=== PATIENT | male | born 1960 | race Caucasian/White ===

== ENCOUNTER 2016-09-05 08:49 | Observation (INO) | payer OTHER ==
[2016-09-05] MEDS ORDERED: IPRATROPIUM 0.5 MG/2.5 ML NEBU INHALATION STA (09:11)
[2016-09-05] MEDS ORDERED: LORazepam 2 MG/ML SYRINGE IV STA (09:11)
[2016-09-05] MEDS ORDERED: ALBUTEROL NEBULIZED 2.5 MG/3 ML INHALATION STA (09:11)
[2016-09-05] MEDS ORDERED: methylPREDNISolone SOD SUCCI 125 MG/2 ML VIAL IV STA (09:11)
[2016-09-05] MEDS ORDERED: SODIUM CHLORIDE 0.9% 1,000 ML IV STA (09:11)
--- NOTE | 2016-09-05 09:25 | ED ---
General Adult HPI - General Chief complaint: Shortness of Breath Stated complaint: SOB Time Seen by Provider: 09/05/16 09:06 Source: patient, RN notes reviewed, old records reviewed Mode of arrival: EMS Limitations: no limitations - History of Present Illness Initial comments: This is a 56-year-old male the ER for evaluation of shortness of breath, patient is with significant shortness of breath this time and prior strain secondary critical state. Patient states he has history of COPD, as well as multiple medical Marcelina is an alcohol abuse. Patient coming in with no chest pain at this time which are as of breath for a week increased coughing this congestion or travel history no significant sick contacts and no recent hospitalizations. Patient denies fever at home, does have increase in sputum production and congestion. - Related Data Home Medications Medication Instructions Recorded Confirmed Albuterol Inhaler [Ventolin Hfa 2 puff INHALATION RT-Q6H PRN 10/21/14 09/05/16 Inhaler] amLODIPine [Norvasc] 10 mg PO DAILY 12/20/15 09/05/16 Cyclobenzaprine [Flexeril] 10 mg PO DAILY PRN 06/28/16 09/05/16 Gabapentin [Neurontin] 300 mg PO TID 06/28/16 09/05/16 Latanoprost Ophth [Xalatan 0.005%] 1 drops BOTH EYES HS 06/28/16 09/05/16 Lisinopril [Zestril] 20 mg PO DAILY 06/28/16 09/05/16 Tamsulosin [Flomax] 0.4 mg PO QAM 06/28/16 09/05/16 oxyCODONE HCL/ACETAMINOPHEN 1 tab PO TID PRN 06/28/16 09/05/16 [Percocet 10-325 mg] rOPINIRole HCL [Requip] 1 mg PO HS 06/28/16 09/05/16 Omeprazole [PriLOSEC] 20 mg PO AC-BRKFST 07/19/16 09/05/16 Allergies Allergy/AdvReac Type Severity Reaction Status Date / Time amoxicillin trihydrate Allergy Unknown Verified 09/05/16 09:59 [From Augmentin] potassium clavulanate Allergy Unknown Verified 09/05/16 09:59 [From Augmentin] pregabalin [From Lyrica] AdvReac Swelling Verified 09/05/16 09:59 Review of Systems ROS Statement: Those systems with pertinent positive or pertinent negative responses have been documented in the HPI. ROS Other: All systems not noted in ROS Statement are negative. 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 History of Any Multi-Drug Resistant Organisms: None Reported Past Surgical History: Appendectomy, Prostate Surgery Additional Past Surgical History / Comment(s): arthroscopic surgery right knee for torn cartiledge. Past Anesthesia/Blood Transfusion Reactions: No Reported Reaction Past Psychological History: Depression Additional Psychological History / Comment(s): Pt lives with his sister. He is independent. He has not worked for the past 1 1/2 due to nerve pain from [place] gelles. Pt does not have a license. Smoking Status: Current some day smoker Past Alcohol Use History: Occasional Additional Past Alcohol Use History / Comment(s): Pt accidentally drank 3-6 beers last nite which he thought were nonalcoholic beers. He had not drank for 1 1/2 weeks before this incident. Past Drug Use History: None Reported - Past Family History Father Additional Family Medical History / Comment(s): Father is - he at age 38yrs from HTN-CVA Mother Additional Family Medical History / Comment(s): Mother of emphysema at age 74yrs. She was a smoker. General Exam Limitations: no limitations General appearance: alert, in no apparent distress, anxious, in distress, obese Head exam: Present: atraumatic, normocephalic, normal inspection Eye exam: Present: normal appearance, PERRL, EOMI. Absent: scleral icterus, conjunctival injection, periorbital swelling ENT exam: Present: normal exam, mucous membranes moist Neck exam: Present: normal inspection. Absent: tenderness, meningismus, lymphadenopathy Respiratory exam: Present: normal lung sounds bilaterally, respiratory distress , wheezes, accessory muscle use, decreased breath sounds, prolonged expiratory. Absent: rales, rhonchi, stridor Cardiovascular Exam: Present: regular rate, normal rhythm, normal heart sounds. Absent: systolic murmur, diastolic murmur, rubs, gallop, clicks GI/Abdominal exam: Present: soft, normal bowel sounds. Absent: distended, tenderness, guarding, rebound, rigid Extremities exam: Present: normal inspection, full ROM, normal capillary refill. Absent: tenderness, pedal edema, joint swelling, calf tenderness Back exam: Present: normal inspection Neurological exam: Present: alert, oriented X3, CN II-XII intact Psychiatric exam: Present: normal affect, normal mood Skin exam: Present: warm, dry, intact, normal color. Absent: rash Course Vital Signs 09/05/16 09/05/16 09/05/16 08:58 09:28 09:44 Temperature 97.9 F Pulse Rate 103 H 89 85 Respiratory 18 Rate Blood Pressure 153/82 O2 Sat by Pulse 95 Oximetry 09/05/16 10:13 Temperature Pulse Rate 90 Respiratory Rate Blood Pressure O2 Sat by Pulse Oximetry - Reevaluation(s) Reevaluation #1: 09/05/16 10:07 Patient with only mild improvement on prolonged breathing treatment EKG Findings - EKG Comments: EKG Findings:: EKG shows sinus rhythm rate of 84, LA 140, QRS 92, QTC 4:30 Medical Decision Making - Medical Decision Making 56-year-old male here for evaluation shortness of breath, continuous shortness of breath, no Brittan she was at home or no modifying factors. Patient is a history of smoking with it is been unable to smoke, symptoms for 10 days with progressive worsening. Patient states that he has an increased cough and congestion, patient x-rays negative first pneumonia, patient will be admitted for COPD exacerbation, breathing treatments. Patient continues to be short of breath after prolonged breathing treatment, will admit for monitoring of cardiovascular status - Lab Data Result diagrams: 09/05/16 09:38 09/05/16 09:38 Lab Results 09/05/16 09/05/16 09/05/16 Range/Units 09:38 09:38 09:38 WBC 6.5 (3.8-10.6) k/uL RBC 4.51 (4.30-5.90) m/uL Hgb 13.4 (13.0-17.5) gm/dL Hct 40.9 (39.0-53.0) % MCV 90.7 (80.0-100.0) fL MCH 29.7 (25.0-35.0) pg MCHC 32.7 (31.0-37.0) g/dL RDW 13.5 (11.5-15.5) % Plt Count 293 (150-450) k/uL Neutrophils % 46 % Lymphocytes % 41 % Monocytes % 6 % Eosinophils % 2 % Basophils % 1 % Neutrophils # 3.0 (1.3-7.7) k/uL Lymphocytes # 2.7 (1.0-4.8) k/uL Monocytes # 0.4 (0-1.0) k/uL Eosinophils # 0.1 (0-0.7) k/uL Basophils # 0.1 (0-0.2) k/uL PT 9.4 (9.0-12.0) sec INR 0.9 (<1.1) APTT 23.1 (22.0-30.0) sec Sodium 140 (137-145) mmol/L Potassium 4.3 (3.5-5.1) mmol/L Chloride 102 (98-107) mmol/L Carbon Dioxide 21 L (22-30) mmol/L Anion Gap 17 mmol/L BUN 15 (9-20) mg/dL Creatinine 0.96 (0.66-1.25) mg/dL Est GFR (MDRD) Af Amer >60 (>60 ml/min/1.73 sqM) Est GFR (MDRD) Non-Af >60 (>60 ml/min/1.73 sqM) Glucose 109 H (74-99) mg/dL Calcium 9.1 (8.4-10.2) mg/dL Magnesium 2.2 (1.6-2.3) mg/dL Total Bilirubin 0.4 (0.2-1.3) mg/dL AST 30 (17-59) U/L ALT 61 (21-72) U/L Alkaline Phosphatase 79 (38-126) U/L Total Protein 7.0 (6.3-8.2) g/dL Albumin 4.1 (3.5-5.0) g/dL - Radiology Data Radiology results: report reviewed (Chest x-ray is negative for pneumonia), image reviewed Critical Care Time Critical Care Time: Yes Total Critical Care Time: 31 Disposition Clinical Impression: Acute kidney injury, Alcohol abuse, Acute exacerbation of chronic obstructive airways disease Disposition: ADMITTED IP TO THIS HOSP Condition: Fair Referrals: Luna Berger CRNP [Primary Care Provider] - 1-2 days
[2016-09-05 09:59] LABS: Basophils # (A) 0.1 k/uL (0-0.2); Basophils % (A) 1 %; CH 31.1; CHCM 34.4; Eosinophils # (A) 0.1 k/uL (0-0.7); Eosinophils % (A) 2 %; HCT 40.9 % (39.0-53.0); HDW 2.59; HGB 13.4 gm/dL (13.0-17.5); Luc % (Auto) 3; Lymphocytes # (A) 2.7 k/uL (1.0-4.8); Lymphocytes % (A) 41 %; MCH 29.7 pg (25.0-35.0); MCHC 32.7 g/dL (31.0-37.0); MCV 90.7 fL (80.0-100.0); Mean Platelet Volume 7.2; Monocytes # (A) 0.4 k/uL (0-1.0); Monocytes % (A) 6 %; Neutrophils % (A) 46 %; RBC 4.51 m/uL (4.30-5.90); RDW 13.5 % (11.5-15.5); WBC 6.5 k/uL (3.8-10.6); WBC (Perox) 6.24
[2016-09-05 10:09] LABS: INR 0.9 (<1.1); Partial Thromboplastin Time 23.1 sec (22.0-30.0); Prothrombin Time 9.4 sec (9.0-12.0)
[2016-09-05 10:11] LABS: ALT 61 U/L (21-72); AST 30 U/L (17-59); Alkaline Phosphatase 79 U/L (38-126); Anion Gap 17 mmol/L; Blood Urea Nitrogen 15 mg/dL (9-20); Calcium 9.1 mg/dL (8.4-10.2); Carbon Dioxide 21 mmol/L (22-30); Chloride 102 mmol/L (98-107); Glucose 109 mg/dL (74-99); Magnesium 2.2 mg/dL (1.6-2.3); Non-African American GFR(MDRD) >60 (>60 ml/min/1.73 sqM); Potassium 4.3 mmol/L (3.5-5.1); Sodium 140 mmol/L (137-145); Total Bilirubin 0.4 mg/dL (0.2-1.3)
--- NOTE | 2016-09-05 10:24 | XR ---
EXAMINATION TYPE: XR chest 1V portable DATE OF EXAM: 09/05/2016 10:19 AM COMPARISON: 12/28/2015 INDICATION: Pain increased sputum production and cough and congestion, history of COPD TECHNIQUE: Single frontal view of the chest is obtained. FINDINGS: The heart size is normal. The pulmonary vasculature is normal. The lungs are clear. IMPRESSION: 1. No acute pulmonary process.
[2016-09-05 10:35] LABS: Creatine Kinase 147 U/L (55-170)
[2016-09-05] MEDS: SODIUM CHLORIDE 0.9% 1,000 ML IV SCH ×2 (10:42→21:42)
[2016-09-05 10:46] LABS: Troponin I <0.012 ng/mL (0.000-0.034)
[2016-09-05 10:47] LABS: Creatine Kinase MB 4.1 ng/mL (0.0-2.4)
[2016-09-05] MEDS: IPRATROPIUM-ALBUTEROL 3 ML NEB INHALATION SCH ×3 (15:16→18:41)
[2016-09-05] MEDS: methylPREDNISolone SOD SUCCI 125 MG/2 ML VIAL IV SCH (17:23)
[2016-09-05] MEDS: MORPHINE SULFATE 4 MG/ML SYRINGE IVP PRN (17:27)
[2016-09-05] MEDS: GABAPENTIN 300 MG CAP PO SCH (22:36)
[2016-09-05] MEDS: LATANOPROST 0.005% OPHTH DROPS 2.5 ML BTL BOTH EYES SCH (22:36)
[2016-09-06] MEDS: methylPREDNISolone SOD SUCCI 125 MG/2 ML VIAL IV SCH ×5 (00:24→23:34)
[2016-09-06] MEDS: SODIUM CHLORIDE 0.9% 1,000 ML IV SCH ×2 (05:18→15:46)
[2016-09-06 07:40] LABS: Glucose,Whole Blood 220 mg/dL (75-99)
[2016-09-06] MEDS: NICOTINE 21MG/24HR PATCH TRANSDERM SCH (08:14)
[2016-09-06] MEDS: ENOXAPARIN 40 MG/0.4 ML SYRINGE SQ SCH (08:15)
[2016-09-06] MEDS: TAMSULOSIN 0.4 MG CAP.ER.24H PO SCH (08:15)
[2016-09-06] MEDS: GABAPENTIN 300 MG CAP PO SCH ×3 (08:15→21:10)
[2016-09-06] MEDS: PANTOPRAZOLE 40 MG TABLET PO SCH (08:15)
[2016-09-06] MEDS: amLODIPine 10 MG TAB PO SCH (08:15)
[2016-09-06] MEDS: LISINOPRIL 20 MG TAB PO SCH (08:15)
[2016-09-06] MEDS: MORPHINE SULFATE 4 MG/ML SYRINGE IVP PRN ×3 (08:22→16:44)
[2016-09-06] MEDS: INSULIN LISPRO (humaLOG) 300 UNIT/3 ML VIAL SQ SCH ×4 (08:26→20:37)
[2016-09-06] MEDS: IPRATROPIUM-ALBUTEROL 3 ML NEB INHALATION SCH ×4 (08:41→19:23)
--- NOTE | 2016-09-06 09:24 | HP ---
DATE OF ADMISSION: CHIEF COMPLAINT: Difficulty breathing. HISTORY OF PRESENT ILLNESS: Mr. Herrera is a 56-year-old male with a known history of chronic obstructive pulmonary disease, alcohol abuse and chronic pancreatitis, and fibromyalgia, came to the hospital with complaints of difficulty breathing, worsening for the past two days. The patient felt like flulike symptoms. Since then has been having difficulty breathing. Otherwise, denied any chest pain. Patient was having increase in cough and congestion. Patient did not have any worsening cough today. No sputum production. Apparently, patient was also wheezing, which made him come to the hospital. Patient does have a history of chronic pancreatitis and follows with Dr. Cici Avila as an outpatient. Patient had recent endoscopy that did not show any ulcers as per the patient. Otherwise, the patient denied any complaints of fever. Patient does have short of breath. No nausea or vomiting, abdominal pain. No diarrhea. No dysuria. No recent travel. No sick contacts at home. REVIEW OF SYSTEMS: CONSTITUTIONAL: No fever. No chills. Patient does have generalized weakness and malaise. RESPIRATORY: Patient does have cough. No sputum production. Short of breath. CARDIOVASCULAR: No chest pain. Patient does have short of breath. No leg swelling. ABDOMEN: No nausea, vomiting, or abdominal pain. GENITOURINARY: Negative. ENDOCRINE: Negative. PSYCHIATRY: Negative. SKIN: Negative. All other fourteen-point review of systems negative except the above. PAST MEDICAL HISTORY: Includes COPD, history of coronary artery disease, no history of PCI, COPD, fibromyalgia, GERD, hypertension, alcohol abuse, chronic pancreatitis, hypoalbuminemia, history of shingles. PAST SURGICAL HISTORY: Appendectomy, prostate surgery, arthroscopic surgery of the right knee from torn cartilage. PSYCHOSOCIAL HISTORY: Depression. SOCIAL HISTORY: Patient lives with his sister. He is independent. Currently is ( ) day smoker. Occasional alcohol use. Patient accidentally drank 3 to 6 beers last night, which he thought were nonalcoholic. He had not drank for one and half weeks before the incident. FAMILY HISTORY: Father at age 38-years from hypertension, cerebrovascular accident. Mother of emphysema at age 74 years. She was a smoker. HOME MEDICATIONS: Albuterol, amlodipine, Flexeril, gabapentin, latanoprost, lisinopril, Flomax, oxycodone, ( ) and omeprazole. ALLERGIES: AUGMENTIN, POTASSIUM CLAVULANATE FROM AUGMENTIN AND PREGABALIN. PHYSICAL EXAMINATION: A 56-year-old male lying in bed comfortably, awake, alert, oriented x3 appears to be in mild distress. VITALS: Blood pressure is 138/68, pulse is 110, respiration 18, temperature afebrile, pulse ox 92% on 2-L nasal cannula. HEENT: Atraumatic, normocephalic. Neck is supple. No JVD. CVS: S1, S2 heard. No murmurs, no gallop. LUNGS: Bilateral expiratory wheezing positive and decreased air entry. Rhonchi positive. Nonlabored breathing. ABDOMEN: Soft, nontender. Bowel sounds present. ACCOUNT DEVELOPMENT EXECUTIVE: Awake, alert and oriented x3. No focal neurological deficits. Cranial nerves grossly intact. EXTREMITIES: No edema. Pulses palpable bilaterally. No clubbing or cyanosis. PSYCHIATRIC: Cooperative. LABORATORY DATA: WBC 6.5, hemoglobin 13.4, platelets 293, INR 0.9. Sodium 140, potassium 4.3, chloride 102, bicarb is 21, BUN 15, creatinine 0.96. NT-proBNP is 68. Troponin less than 0.012. Albumin 4.1. EKG sinus rhythm with marked sinus arrhythmia. Chest x-ray, no acute pulmonary process. IMPRESSION: 1. Difficulty breathing, acute chronic obstructive pulmonary disease exacerbation. 2. Alcohol abuse. 3. History of chronic pancreatitis. 4. Fibromyalgia. 5. Gastroesophageal reflux disease. 6. History of shingles. 7. Benign prostatic hypertrophy. DISCUSSION AND PLAN: A 56-year-old male admitted to the hospital with worsening short of breathing. Will continue with breathing treatments. Will continue with IV steroids. Continue the home medications and follow up closely. Further recommendations based on the clinical course. DVT prophylaxis with Lovenox 40 mg subcu daily. Patient was counseled for alcohol abuse and nicotine addiction.
[2016-09-06 12:19] LABS: Glucose,Whole Blood 211 mg/dL (75-99)
[2016-09-06] MEDS ORDERED: INFLUENZA VACCINE (3YR+) 60 MCG/0.5 ML SYRINGE IM ONE (15:16)
[2016-09-06 16:53] LABS: Glucose,Whole Blood 217 mg/dL (75-99)
[2016-09-06 20:28] LABS: Glucose,Whole Blood 230 mg/dL (75-99)
[2016-09-06] MEDS: LATANOPROST 0.005% OPHTH DROPS 2.5 ML BTL BOTH EYES SCH (21:10)
[2016-09-07] MEDS: MORPHINE SULFATE 4 MG/ML SYRINGE IVP PRN ×2 (04:02→07:46)
[2016-09-07] MEDS: SODIUM CHLORIDE 0.9% 1,000 ML IV SCH ×3 (04:04→23:24)
[2016-09-07] MEDS: methylPREDNISolone SOD SUCCI 125 MG/2 ML VIAL IV SCH ×4 (05:46→23:24)
[2016-09-07 07:33] LABS: Glucose,Whole Blood 171 mg/dL (75-99)
[2016-09-07] MEDS: ENOXAPARIN 40 MG/0.4 ML SYRINGE SQ SCH (07:33)
[2016-09-07] MEDS: INSULIN LISPRO (humaLOG) 300 UNIT/3 ML VIAL SQ SCH ×4 (07:34→21:57)
[2016-09-07] MEDS: GABAPENTIN 300 MG CAP PO SCH ×3 (07:34→21:57)
[2016-09-07] MEDS: PANTOPRAZOLE 40 MG TABLET PO SCH (07:34)
[2016-09-07] MEDS: amLODIPine 10 MG TAB PO SCH (07:34)
[2016-09-07] MEDS: TAMSULOSIN 0.4 MG CAP.ER.24H PO SCH (07:34)
[2016-09-07] MEDS: LISINOPRIL 20 MG TAB PO SCH (07:34)
[2016-09-07] MEDS: NICOTINE 21MG/24HR PATCH TRANSDERM SCH (07:36)
[2016-09-07] MEDS: IPRATROPIUM-ALBUTEROL 3 ML NEB INHALATION SCH ×4 (07:56→20:45)
[2016-09-07 09:28] LABS: Basophils % (A) 0 %; CH 30.7; Eosinophils % (A) 0 %; HCT 37.7 % (39.0-53.0); HDW 2.46; HGB 12.3 gm/dL (13.0-17.5); Luc # (Auto) 0.05; Luc % (Auto) 0; Lymphocytes # (A) 0.9 k/uL (1.0-4.8); Lymphocytes % (A) 6 %; MCH 30.5 pg (25.0-35.0); MCHC 32.7 g/dL (31.0-37.0); MCV 93.4 fL (80.0-100.0); Mean Platelet Volume 7.6; Monocytes # (A) 0.5 k/uL (0-1.0); Monocytes % (A) 4 %; Neutrophils # (A) 12.4 k/uL (1.3-7.7); Neutrophils % (A) 90 %; RBC 4.04 m/uL (4.30-5.90); RDW 13.7 % (11.5-15.5); WBC 13.8 k/uL (3.8-10.6); WBC (Perox) 14.29
[2016-09-07 09:47] LABS: Anion Gap 13 mmol/L; Blood Urea Nitrogen 20 mg/dL (9-20); Calcium 8.8 mg/dL (8.4-10.2); Carbon Dioxide 20 mmol/L (22-30); Chloride 106 mmol/L (98-107); Glucose 199 mg/dL (74-99); Non-African American GFR(MDRD) >60 (>60 ml/min/1.73 sqM); Potassium 4.5 mmol/L (3.5-5.1); Sodium 139 mmol/L (137-145)
--- NOTE | 2016-09-07 11:37 | PN ---
DATE OF SERVICE: 09/06/2016 INTERVAL HISTORY: Mr. Herrera is a 56-year-old male with known history of COPD and alcohol abuse and chronic pancreatitis and fibromyalgia admitted to the hospital with worsening shortness of breath for the past 2 days. Patient is currently being treated for acute COPD exacerbation. The patient's breathing status is improved now. Otherwise, patient did complain of wheezing after a shower today. Otherwise, no fever. No chills. No complaints of chest pain or shortness of breath. No acute overnight issues. REVIEW OF SYSTEMS: CONSTITUTIONAL: No fever. No chills. RESPIRATORY: No cough or sputum production. CARDIOVASCULAR: No chest pain or shortness of breath. ABDOMEN: No nausea, vomiting, abdominal pain. GENITOURINARY: Negative. ENDOCRINE: Negative. PSYCHIATRIC: Negative. SKIN: Negative. MUSCULOSKELETAL: Negative. NEUROLOGIC: Negative. All other 14- point review of systems negative except the above. CURRENT MEDICATIONS: Reviewed. PHYSICAL EXAMINATION: A 56-year-old male lying in the bed comfortably; awake, alert, oriented, x3. Appears to be in no apparent distress. VITALS: Blood pressure is 120/63, pulse is 94, respirations 20, temperature afebrile, pulse ox 97% on 2L nasal cannula. HEENT: Atraumatic, normocephalic. Neck is supple. No JVD. CVS: S1 and S2 heard. No murmurs. No gallop. LUNGS: Bilateral air entry is present. Expiratory wheezing positive. Nonlabored breathing. No rales or rhonchi. No crackles. ABDOMEN: Soft, nontender. The bowel sounds are present. INTELLIGENCE INTERN: Awake, alert and oriented x3. No focal deficit. EXTREMITIES: No edema. Pulses palpable bilaterally. No clubbing or cyanosis. PSYCHIATRIC: Cooperative. LABORATORY DATA: Reviewed. IMPRESSION: 1. Acute chronic obstructive pulmonary disease exacerbation, improved breathing today. 2. History of alcohol abuse. 3. History of chronic pancreatitis. 4. Fibromyalgia. 5. Gastroesophageal reflux disease. 6. History of shingles. 7. Benign prostatic hypertrophy. 8. recent endoscopy that showed no ulcers as per the patient. DISCUSSION AND PLAN: Patient will be continued on current breathing treatments and IV steroids and continue with the home medications follow up closely. Continue with DVT prophylaxis. Anticipate discharge tomorrow with clinical improvement. Patient advised for alcohol abuse and follow up with primary care physician. VALENTE
[2016-09-07 11:54] LABS: Glucose,Whole Blood 233 mg/dL (75-99)
[2016-09-07] MEDS: BENZONATATE 100 MG CAP PO SCH ×2 (12:27→15:20)
[2016-09-07] MEDS ORDERED: THIAMINE 100 MG/ML 2 ML VIAL IM STA (17:24)
[2016-09-07] MEDS ORDERED: LORazepam 2 MG/ML SYRINGE IV PRN ×2 (17:24)
[2016-09-07 17:44] LABS: Glucose,Whole Blood 211 mg/dL (75-99)
[2016-09-07] MEDS: THIAMINE 100 MG TAB PO SCH (18:13)
[2016-09-07] MEDS: LATANOPROST 0.005% OPHTH DROPS 2.5 ML BTL BOTH EYES SCH (20:11)
[2016-09-07 21:35] LABS: Glucose,Whole Blood 217 mg/dL (75-99)
[2016-09-07] MEDS: METOPROLOL TARTRATE 12.5 MG TAB PO SCH (21:56)
[2016-09-08] MEDS: LORazepam 2 MG/ML SYRINGE IV PRN ×2 (00:47→08:02)
[2016-09-08 01:21] VITALS: RESP 16
[2016-09-08] MEDS: methylPREDNISolone SOD SUCCI 125 MG/2 ML VIAL IV SCH ×2 (05:04→12:34)
[2016-09-08 07:24] LABS: Glucose,Whole Blood 189 mg/dL (75-99)
[2016-09-08] MEDS: NICOTINE 21MG/24HR PATCH TRANSDERM SCH ×2 (07:38→07:45)
[2016-09-08] MEDS: ENOXAPARIN 40 MG/0.4 ML SYRINGE SQ SCH (07:38)
[2016-09-08] MEDS: INSULIN LISPRO (humaLOG) 300 UNIT/3 ML VIAL SQ SCH ×2 (07:38→12:33)
[2016-09-08] MEDS: TAMSULOSIN 0.4 MG CAP.ER.24H PO SCH (07:39)
[2016-09-08] MEDS: GABAPENTIN 300 MG CAP PO SCH (07:39)
[2016-09-08] MEDS: METOPROLOL TARTRATE 12.5 MG TAB PO SCH (07:39)
[2016-09-08] MEDS: amLODIPine 10 MG TAB PO SCH (07:39)
[2016-09-08] MEDS: PANTOPRAZOLE 40 MG TABLET PO SCH (07:39)
[2016-09-08] MEDS: LISINOPRIL 20 MG TAB PO SCH (07:40)
[2016-09-08] MEDS: IPRATROPIUM-ALBUTEROL 3 ML NEB INHALATION SCH ×3 (07:41→15:53)
[2016-09-08] MEDS: SODIUM CHLORIDE 0.9% 1,000 ML IV SCH ×2 (09:08→12:36)
[2016-09-08 09:32] VITALS: BP 151/90; TEMP 96.6
[2016-09-08] MEDS ORDERED: METOPROLOL TARTRATE 25 MG TAB PO SCH (09:54)
--- NOTE | 2016-09-08 11:33 | P.PN ---
Subjective Date of service 09/07/2016. Progress note being dictated for Dr. Denton. Interval history: This is a 56-year-old gentleman admitted with acute COPD exacerbation, alcohol abuse in a patient with chronic pancreatitis, fibromyalgia and multiple other medical issues. Breathing stabilized on nebulized bronchodilators, steroids. Lipase 63. Initially had planned for discharge but patient became tachycardic. Denies chest pain, palpitations or increasing shortness of breath. Complains of bilateral rib cage discomfort from coughing. Afebrile. Objective - Vital Signs Vital signs: Vital Signs Temp 97.0 F L 09/07/16 07:00 Pulse 126 H 09/07/16 14:22 Resp 20 09/07/16 08:00 BP 149/73 09/07/16 07:00 Pulse Ox 97 09/07/16 14:22 Intake & Output 09/06/16 09/07/16 09/07/16 18:59 06:59 18:59 Intake Total 1560 Output Total 1000 1700 Balance -1000 -140 Intake: Oral 1560 Output: Urine 1000 1700 Other: Voiding Method Toilet Toilet Urinal Urinal - Exam PHYSICAL EXAM: VITAL SIGNS: As above GENERAL: [Sitting up in bed, no acute distress] HEENT: [Pupils equal conjunctiva normal.] NECK: [Supple, no JVD] RESPIRATORY EFFORT:[Normal] LUNGS: [Clear, bilateral bases diminished] CARDIOVASCULAR[regular S1-S2, no edema] GI: [Abdomen soft, nontender, positive bowel sounds.] PSYCH: [Alert and oriented -3, mood and affect normal.] NEURO: No focal deficits, moves all 4 extremities, strength and sensation grossly intact - Labs CBC & Chem 7: 09/07/16 08:38 09/07/16 08:38 Labs: Abnormal Lab Results - Last 24 Hours (Table) 09/06/16 09/06/16 09/07/16 Range/Units 16:51 20:13 07:32 WBC (3.8-10.6) k/uL RBC (4.30-5.90) m/uL Hgb (13.0-17.5) gm/dL Hct (39.0-53.0) % Neutrophils # (1.3-7.7) k/uL Lymphocytes # (1.0-4.8) k/uL Carbon Dioxide (22-30) mmol/L Glucose (74-99) mg/dL POC Glucose (mg/dL) 217 H 230 H 171 H (75-99) mg/dL 09/07/16 09/07/16 09/07/16 Range/Units 08:38 08:38 11:52 WBC 13.8 H (3.8-10.6) k/uL RBC 4.04 L (4.30-5.90) m/uL Hgb 12.3 L (13.0-17.5) gm/dL Hct 37.7 L (39.0-53.0) % Neutrophils # 12.4 H (1.3-7.7) k/uL Lymphocytes # 0.9 L (1.0-4.8) k/uL Carbon Dioxide 20 L (22-30) mmol/L Glucose 199 H (74-99) mg/dL POC Glucose (mg/dL) 233 H (75-99) mg/dL Assessment and Plan Plan: 1. [Acute COPD exacerbation, improving]. 2. Tachycardia, beta blockers added to med regime 3. [Alcohol abuse]. 4. [Chronic pancreatitis]. 5. [Fibromyalgia 6. [Gastroesophageal reflux disease]. 7. [History of shingles]. 8. BPH Plan: Continue on current medication regime ,monitoring and symptomatic treatment. Discharge on hold, beta blockers and CIWA protocol added to med regime. Will taper steroids, continue nebulized bronchodilators. ETOH cessation readdressed. Discharge home tomorrow pending tachycardia subsides. Further recommendations to follow. The impression and plan of care has been dictated as directed. : I performed a H&P examination of this patient and discussed the same with the dictator. I agree with the dictator's note. Any additional findings/opinions/ etc. will be noted.
[2016-09-08 12:29] LABS: Glucose,Whole Blood 196 mg/dL (75-99)
[2016-09-08] MEDS: THIAMINE 100 MG TAB PO SCH (12:34)
[2016-09-08] MEDS: MORPHINE SULFATE 4 MG/ML SYRINGE IVP PRN (12:41)
[2016-09-08] MEDS ORDERED: METOPROLOL TARTRATE 12.5 MG TAB PO STA (12:54)
[2016-09-08] MEDS ORDERED: amLODIPine 5 MG TAB PO SCH (12:58)
--- NOTE | 2016-09-08 15:12 | P.DS ---
Providers Date of admission: 09/05/16 09:58 Expected date of discharge: 09/08/16 Attending physician: Kerry Denton Primary care physician: Luna Berger Hospital Course: Final diagnoses: 1. [Acute COPD exacerbation 2. Tachycardia, beta blockers added to med regime 3. [Alcohol abuse]. 4. [Chronic pancreatitis]. 5. [Fibromyalgia 6. [Gastroesophageal reflux disease]. 7. [History of shingles]. 8. BPH Hospital course:This is a 56-year-old gentleman admitted with acute COPD exacerbation, alcohol abuse in a patient with chronic pancreatitis, fibromyalgia and multiple other medical issues. Breathing stabilized on antibiotics, nebulized bronchodilators, steroids. D-dimer negative. Lipase 63. Tachycardia improved on beta lila with heart rate less than 110 with ambulation. Patient is being discharged home in a stable condition with guarded prognosis. Patient Condition at Discharge: Stable Plan - Discharge Summary New Discharge Prescriptions: Levofloxacin [Levaquin] 500 mg PO DAILY #5 tab Metoprolol Tartrate [Lopressor] 25 mg PO BID #60 tab Nicotine 21Mg/24Hr Patch [Habitrol] 1 patch TRANSDERM DAILY #30 patch predniSONE 10 mg PO DIRECTED #30 tab Discharge Medication List Cyclobenzaprine [Flexeril] 10 mg PO DAILY PRN 06/28/16 [History] Gabapentin [Neurontin] 300 mg PO TID 06/28/16 [History] Latanoprost Ophth [Xalatan 0.005%] 1 drops BOTH EYES HS 06/28/16 [History] Lisinopril [Zestril] 20 mg PO DAILY 06/28/16 [History] Tamsulosin [Flomax] 0.4 mg PO QAM 06/28/16 [History] oxyCODONE HCL/ACETAMINOPHEN [Percocet 10-325 mg] 1 tab PO TID PRN 06/28/16 [ History] rOPINIRole HCL [Requip] 1 mg PO HS 06/28/16 [History] Omeprazole [PriLOSEC] 20 mg PO AC-BRKFST 07/19/16 [History] Albuterol Inhaler [Ventolin Hfa Inhaler] 2 puff INHALATION RT-Q6H #0 09/07/16 [ Rx] Nicotine 21Mg/24Hr Patch [Habitrol] 1 patch TRANSDERM DAILY #30 patch 09/07/16 [ Rx] Levofloxacin [Levaquin] 500 mg PO DAILY #5 tab 09/08/16 [Rx] Metoprolol Tartrate [Lopressor] 25 mg PO BID #60 tab 09/08/16 [Rx] amLODIPine [Norvasc] 5 mg PO DAILY #0 09/08/16 [Rx] predniSONE 10 mg PO DIRECTED #30 tab 09/08/16 [Rx] Follow up Appointment(s)/Referral(s): Luna Berger CRNP [Primary Care Provider] - 3 Days Ambulatory/Diagnostic Orders: Complete Blood Count w/diff [LAB.AMB] Time Frame: 3 Days, Location: Determined By Patient Patient Instructions/Handouts: How to Stop Smoking (DC), Abuse of Alcohol (DC) Activity/Diet/Wound Care/Special Instructions: No smoking, no EtOH Diet: Cardiac Activity: Limited until follow up
[2016-09-08 16:04] VITALS: PULSE 112
== END 2016-09-08 16:26 | disposition home or self-care (01) ==
LOC: EC 08:49 → 3OBS 09:58 → 4MS4W 20:27
PROVIDERS: ADMIT Hospitalist; ATTEND Hospitalist
DX: J44.1 Chronic obstructive pulmonary disease with (acute) exacerbation (principal); R00.0 Tachycardia, unspecified; F10.10 Alcohol abuse, uncomplicated; K86.1 Other chronic pancreatitis; M79.7 Fibromyalgia; K21.9 Gastro-esophageal reflux disease without esophagitis; N40.0 Benign prostatic hyperplasia without lower urinary tract symptoms; F17.200 Nicotine dependence, unspecified, uncomplicated; N17.9 Acute kidney failure, unspecified; I25.10 Atherosclerotic heart disease of native coronary artery without angina pectoris; I10 Essential (primary) hypertension; E88.09 Other disorders of plasma-protein metabolism, not elsewhere classified; E87.1 Hypo-osmolality and hyponatremia; G62.9 Polyneuropathy, unspecified; F32.9 Major depressive disorder, single episode, unspecified; Z86.61 Personal history of infections of the central nervous system; Z79.899 Other long term (current) drug therapy; Z88.0 Allergy status to penicillin; Z88.8 Allergy status to other drugs, medicaments and biological substances; Z82.3 Family history of stroke; Z82.49 Family history of ischemic heart disease and other diseases of the circulatory system; Z82.5 Family history of asthma and other chronic lower respiratory diseases; Z23 Encounter for immunization
CPT/HCPCS: 36415; 94640 ×7; 94760; 94644; 93005 ×2; 85379; 84439; 83880; 80053; 80048; 84443; 82550; 82553; 83605; 83690; 83735; 84484; 85025 ×2; 85610; 85730; 71010; 90686; 99291; 96375 ×3; 96376; 96361 ×12; G0378 ×5; G0008; J2060 ×2; J2270 ×4; J2930 ×4; J1650 ×3; J0696; 96365; 96372

== ENCOUNTER → 2016-09-22 | Outpatient (CLI) | payer OTHER | END | disposition home or self-care (01) | LOC: LABPAT 14:40 | PROVIDERS: ATTEND Orthopaedic Surgery | DX: Z01.812 Encounter for preprocedural laboratory examination (principal) | CPT/HCPCS: 87070 ==

== ENCOUNTER → 2016-09-23 | Outpatient (CLI) | payer OTHER ==
[2016-09-23 13:00] LABS: ALT 57 U/L (21-72); AST 32 U/L (17-59); Alkaline Phosphatase 69 U/L (38-126); Anion Gap 9 mmol/L; Blood Urea Nitrogen 13 mg/dL (9-20); Carbon Dioxide 29 mmol/L (22-30); Chloride 99 mmol/L (98-107); Glucose 121 mg/dL (74-99); Non-African American GFR(MDRD) >60 (>60 ml/min/1.73 sqM); Potassium 4.6 mmol/L (3.5-5.1); Sodium 137 mmol/L (137-145); Total Bilirubin 0.8 mg/dL (0.2-1.3); Total Protein 6.7 g/dL (6.3-8.2)
[2016-09-23 13:05] LABS: INR 0.9 (<1.1); Partial Thromboplastin Time 23.1 sec (22.0-30.0); Prothrombin Time 9.4 sec (9.0-12.0)
[2016-09-23 13:12] LABS: Appearance,Urine Clear (Clear); Bilirubin,Urine Negative (Negative); Glucose,Urine (UA) Negative (Negative); Ketones,Urine Negative (Negative); Leukocyte Esterase,Urine Negative (Negative); Nitrite,Urine Negative (Negative); PH, Urine 5.5 (5.0-8.0); Protein,Urine Negative (Negative); Specific Gravity,Urine 1.013 (1.001-1.035); UA Billing (MACRO vs. MICRO) CHEM; Urobilinogen,Urine <2.0 mg/dL (<2.0)
[2016-09-23 13:36] LABS: Basophils % (A) 1 %; CH 30.8; CHCM 32.7; Eosinophils # (A) 0.1 k/uL (0-0.7); Eosinophils % (A) 2 %; HCT 40.1 % (39.0-53.0); HDW 2.42; Luc # (Auto) 0.19; Luc % (Auto) 3; Lymphocytes # (A) 1.3 k/uL (1.0-4.8); Lymphocytes % (A) 24 %; MCH 30.7 pg (25.0-35.0); MCHC 32.5 g/dL (31.0-37.0); MCV 94.7 fL (80.0-100.0); Mean Platelet Volume 7.2; Monocytes # (A) 0.4 k/uL (0-1.0); Monocytes % (A) 7 %; Neutrophils # (A) 3.5 k/uL (1.3-7.7); Neutrophils % (A) 63 %; RBC 4.24 m/uL (4.30-5.90); RDW 14.2 % (11.5-15.5); WBC 5.6 k/uL (3.8-10.6); WBC (Perox) 6.29
== END | disposition home or self-care (01) ==
LOC: LABPAT 12:01
PROVIDERS: ATTEND Orthopaedic Surgery
DX: Z01.812 Encounter for preprocedural laboratory examination (principal); Z01.810 Encounter for preprocedural cardiovascular examination
CPT/HCPCS: 80053; 81003; 85025; 85610; 85730

== ENCOUNTER → 2016-11-08 | Outpatient (CLI) | payer OTHER ==
[2016-11-08 15:36] LABS: Basophils # (A) 0.1 k/uL (0-0.2); Basophils % (A) 1 %; CH 31.4; Eosinophils # (A) 0.2 k/uL (0-0.7); Eosinophils % (A) 2 %; HCT 45.4 % (39.0-53.0); HDW 2.72; HGB 15.5 gm/dL (13.0-17.5); Luc # (Auto) 0.23; Luc % (Auto) 3; Lymphocytes # (A) 1.6 k/uL (1.0-4.8); Lymphocytes % (A) 19 %; MCH 31.6 pg (25.0-35.0); MCV 92.8 fL (80.0-100.0); Mean Platelet Volume 7.3; Monocytes # (A) 0.5 k/uL (0-1.0); Monocytes % (A) 6 %; Neutrophils # (A) 5.9 k/uL (1.3-7.7); Neutrophils % (A) 70 %; RBC 4.89 m/uL (4.30-5.90); WBC 8.4 k/uL (3.8-10.6); WBC (Perox) 8.48
[2016-11-08 15:44] LABS: Anion Gap 13 mmol/L; Blood Urea Nitrogen 14 mg/dL (9-20); Carbon Dioxide 25 mmol/L (22-30); Chloride 102 mmol/L (98-107); Non-African American GFR(MDRD) >60 (>60 ml/min/1.73 sqM); Potassium 4.6 mmol/L (3.5-5.1); Sodium 140 mmol/L (137-145)
== END | disposition home or self-care (01) ==
LOC: LABPAT 15:15
PROVIDERS: ATTEND Internal Medicine Cardiovascular Disease
DX: Z01.812 Encounter for preprocedural laboratory examination (principal); I49.3 Ventricular premature depolarization; R93.1 Abnormal findings on diagnostic imaging of heart and coronary circulation
CPT/HCPCS: 36415; 80051; 82565; 84520; 85025

== ENCOUNTER 2016-11-29 12:14 | Emergency (ER) | payer OTHER ==
[2016-11-29] MEDS ORDERED: SODIUM CHLORIDE 0.9% 1,000 ML IV STA (12:30)
[2016-11-29] MEDS ORDERED: MORPHINE SULFATE 4 MG/ML SYRINGE IVP STA (12:41)
[2016-11-29] MEDS ORDERED: ONDANSETRON 4 MG/2 ML VIAL IVP STA (12:41)
[2016-11-29 13:04] LABS: Basophils # (A) 0.2 k/uL (0-0.2); Basophils % (A) 2 %; CH 31.9; CHCM 33.6; Eosinophils # (A) 0.1 k/uL (0-0.7); Eosinophils % (A) 1 %; HCT 46.5 % (39.0-53.0); HDW 2.42; HGB 15.4 gm/dL (13.0-17.5); Luc # (Auto) 0.16; Luc % (Auto) 2; Lymphocytes # (A) 2.1 k/uL (1.0-4.8); Lymphocytes % (A) 21 %; MCH 31.5 pg (25.0-35.0); MCHC 33.1 g/dL (31.0-37.0); MCV 95.4 fL (80.0-100.0); Mean Platelet Volume 6.7; Monocytes # (A) 0.6 k/uL (0-1.0); Monocytes % (A) 5 %; Neutrophils % (A) 70 %; RBC 4.87 m/uL (4.30-5.90); RDW 14.8 % (11.5-15.5); WBC 10.1 k/uL (3.8-10.6); WBC (Perox) 10.19
--- NOTE | 2016-11-29 13:07 | ED ---
Abdominal Pain HPI - General Chief Complaint: Abdominal Pain Stated Complaint: Abd Pain Time Seen by Provider: 11/29/16 12:21 Source: patient, RN notes reviewed Mode of arrival: wheelchair Limitations: no limitations - History of Present Illness Initial Comments: 56-year-old male presents emergency Department chief complaint upper abdominal pain. Patient states his pain started last 24 hours so. Patient states that he is nauseated no vomiting. Patient believes that his pancreatitis that she has a history of this. Patient believes this was caused by eating peanuts in the past. Patient did admit to drinking alcohol heavily over the weekend. Patient denies fever, chills. Denies any chest pain or shortness of breath. Denies any diarrhea or constipation. - Related Data Home Medications Medication Instructions Recorded Confirmed Cyclobenzaprine [Flexeril] 10 mg PO DAILY PRN 06/28/16 11/29/16 Gabapentin [Neurontin] 300 mg PO TID 06/28/16 11/29/16 Latanoprost Ophth [Xalatan 0.005%] 1 drops BOTH EYES HS 06/28/16 11/29/16 Lisinopril [Zestril] 20 mg PO DAILY 06/28/16 11/29/16 rOPINIRole HCL [Requip] 1 mg PO HS 06/28/16 11/29/16 Omeprazole [PriLOSEC] 20 mg PO AC-BRKFST PRN 07/19/16 11/29/16 Albuterol Inhaler [Ventolin Hfa 2 puff INHALATION Q6H PRN 09/26/16 11/29/16 Inhaler] Flunisolide [Aerospan] 1 puff INHALATION RT-BID 09/26/16 11/29/16 amLODIPine [Norvasc] 10 mg PO DAILY 09/26/16 11/29/16 Aspirin [Adult Low Dose Aspirin EC] 81 mg PO QAM 11/17/16 11/29/16 Previous Rx's Medication Instructions Recorded Nicotine 21Mg/24Hr Patch [Habitrol] 1 patch TRANSDERM DAILY #30 patch 09/07/16 Allergies Allergy/AdvReac Type Severity Reaction Status Date / Time amoxicillin trihydrate Allergy Rapid Verified 11/29/16 12:50 [From Augmentin] Heart Rate potassium clavulanate Allergy FELT LIKE Verified 11/29/16 12:50 [From Augmentin] HE WAS GOING TO PASS OUT FAST HEARTBEAT" pregabalin [From Lyrica] AdvReac Swelling Verified 11/29/16 12:50 Review of Systems ROS Statement: Those systems with pertinent positive or pertinent negative responses have been documented in the HPI. ROS Other: All systems not noted in ROS Statement are negative. Past Medical History Past Medical History: Coronary Artery Disease (CAD), COPD, Eye Disorder, Fibromyalgia, GERD/Reflux, Hypertension, Myocardial Infarction ([place]), Prostate Disorder Additional Past Medical History / Comment(s): hx of chronic pancreatitis, shingles- apr 2013-"causes pain in joints",neuopathy, glaucoma, "wart on top lt foot", varicose veins, poor circulation in legs, chronic cough Last Myocardial Infarction Date:: 09/02/16 History of Any Multi-Drug Resistant Organisms: None Reported Past Surgical History: Appendectomy, Prostate Surgery Additional Past Surgical History / Comment(s): arthroscopic surgery right knee for torn cartiladge, TURP Past Anesthesia/Blood Transfusion Reactions: No Reported Reaction Past Psychological History: Anxiety, Depression Additional Psychological History / Comment(s): . Smoking Status: Current some day smoker Past Alcohol Use History: Daily Additional Past Alcohol Use History / Comment(s): started smoking at age 13 (40 yrs), quit smoking 10/2016 Past Drug Use History: None Reported - Past Family History Father Additional Family Medical History / Comment(s): Father is - he at age 38yrs from HTN-CVA Mother Family Medical History: No Reported History Additional Family Medical History / Comment(s): . General Exam Limitations: no limitations General appearance: alert, in no apparent distress Head exam: Present: atraumatic, normocephalic, normal inspection Respiratory exam: Present: normal lung sounds bilaterally. Absent: respiratory distress, wheezes, rales, rhonchi, stridor Cardiovascular Exam: Present: regular rate, normal rhythm, normal heart sounds. Absent: systolic murmur, diastolic murmur, rubs, gallop, clicks GI/Abdominal exam: Present: soft, tenderness (Mild to moderate tenderness mid abdomen and epigastric region), normal bowel sounds. Absent: distended, guarding, rebound, rigid Back exam: Absent: CVA tenderness (R), CVA tenderness (L) Neurological exam: Present: alert Skin exam: Present: warm, dry, intact, normal color. Absent: rash Course Vital Signs 11/29/16 12:16 Temperature 98 F Pulse Rate 100 Respiratory 20 Rate Blood Pressure 163/86 O2 Sat by Pulse 97 Oximetry Medical Decision Making - Medical Decision Making 56-year-old male presented for upper abdominal pain. Patient appears to have gastroenteritis type changes/gastritis. Patient states he was supposed be taking omeprazole as prescribed by Dr. Avila ux interaction designer so he sees he has not been taking them. Patient is advised to restart taking these. Patient increase fluid avoid any acidic foods. Return parameters discussed. - Lab Data Result diagrams: 11/29/16 12:50 11/29/16 12:50 Lab Results 11/29/16 11/29/16 11/29/16 Range/Units 12:50 12:50 13:41 WBC 10.1 (3.8-10.6) k/uL RBC 4.87 (4.30-5.90) m/uL Hgb 15.4 (13.0-17.5) gm/dL Hct 46.5 (39.0-53.0) % MCV 95.4 (80.0-100.0) fL MCH 31.5 (25.0-35.0) pg MCHC 33.1 (31.0-37.0) g/dL RDW 14.8 (11.5-15.5) % Plt Count 278 (150-450) k/uL Neutrophils % 70 % Lymphocytes % 21 % Monocytes % 5 % Eosinophils % 1 % Basophils % 2 % Neutrophils # 7.0 (1.3-7.7) k/uL Lymphocytes # 2.1 (1.0-4.8) k/uL Monocytes # 0.6 (0-1.0) k/uL Eosinophils # 0.1 (0-0.7) k/uL Basophils # 0.2 (0-0.2) k/uL Sodium 139 (137-145) mmol/L Potassium 4.6 (3.5-5.1) mmol/L Chloride 104 (98-107) mmol/L Carbon Dioxide 23 (22-30) mmol/L Anion Gap 12 mmol/L BUN 14 (9-20) mg/dL Creatinine 0.74 (0.66-1.25) mg/dL Est GFR (MDRD) Af Amer >60 (>60 ml/min/1.73 sqM) Est GFR (MDRD) Non-Af >60 (>60 ml/min/1.73 sqM) Glucose 133 H (74-99) mg/dL Calcium 9.6 (8.4-10.2) mg/dL Total Bilirubin 0.9 (0.2-1.3) mg/dL AST 45 (17-59) U/L ALT 86 H (21-72) U/L Alkaline Phosphatase 90 (38-126) U/L Total Protein 7.4 (6.3-8.2) g/dL Albumin 4.3 (3.5-5.0) g/dL Amylase 52 (30-110) U/L Lipase 159 (23-300) U/L Urine Color Yellow Urine Appearance Clear (Clear) Urine pH 5.5 (5.0-8.0) Ur Specific [place] 1.013 (1.001-1.035) Urine Protein Negative (Negative) Urine Glucose (UA) Negative (Negative) Urine Ketones Negative (Negative) Urine Blood Negative (Negative) Urine Nitrite Negative (Negative) Urine Bilirubin Negative (Negative) Urine Urobilinogen <2.0 (<2.0) mg/dL Ur Leukocyte Esterase Negative (Negative) 11/29/16 13:07 EKG performed at 12:28 normal sinus rhythm with a rate of 88, AL 140, QS duration 88, QT/QTC 378/457 Disposition Clinical Impression: Gastritis, Enteritis Disposition: HOME SELF-CARE Condition: Stable Instructions: Gastritis (ED) Additional Instructions: Please take your omeprazole as directed.Please return to the Emergency Department if symptoms worsen or any other concerns. Time of Disposition: 14:31
[2016-11-29 13:13] LABS: ALT 86 U/L (21-72); AST 45 U/L (17-59); Alkaline Phosphatase 90 U/L (38-126); Amylase 52 U/L (30-110); Anion Gap 12 mmol/L; Blood Urea Nitrogen 14 mg/dL (9-20); Calcium 9.6 mg/dL (8.4-10.2); Carbon Dioxide 23 mmol/L (22-30); Chloride 104 mmol/L (98-107); Glucose 133 mg/dL (74-99); Non-African American GFR(MDRD) >60 (>60 ml/min/1.73 sqM); Potassium 4.6 mmol/L (3.5-5.1); Sodium 139 mmol/L (137-145); Total Bilirubin 0.9 mg/dL (0.2-1.3); Total Protein 7.4 g/dL (6.3-8.2)
[2016-11-29] MEDS ORDERED: RX INFO: IV CONTRAST WAS GIVEN 1 EACH MISC MISCELLANE PRN (13:18)
--- NOTE | 2016-11-29 13:23 | XR ---
EXAMINATION TYPE: XR KUB DATE OF EXAM: 11/29/2016 1:16 PM COMPARISON: 12/31/2015 INDICATION: Abdomen pain TECHNIQUE: Single view abdomen upright view FINDINGS: Nonspecific bowel gas present. Psoas margins are normal. No organomegaly is present. EKG leads overlie the abdomen IMPRESSION: 1. Nonspecific abdomen.
[2016-11-29 14:03] LABS: Appearance,Urine Clear (Clear); Bilirubin,Urine Negative (Negative); Glucose,Urine (UA) Negative (Negative); Ketones,Urine Negative (Negative); Leukocyte Esterase,Urine Negative (Negative); Nitrite,Urine Negative (Negative); PH, Urine 5.5 (5.0-8.0); Protein,Urine Negative (Negative); Specific Gravity,Urine 1.013 (1.001-1.035); UA Billing (MACRO vs. MICRO) CHEM; Urobilinogen,Urine <2.0 mg/dL (<2.0)
--- NOTE | 2016-11-29 14:28 | CT ---
EXAMINATION TYPE: CT abdomen pelvis w con DATE OF EXAM: 11/29/2016 2:16 PM COMPARISON: 06/28/2016 HISTORY: Generalized pain with nausea CT DLP: 1637.2 mGycm CONTRAST: CT scan of the abdomen and pelvis is performed without Oral Contrast and with IV Contrast, patient in jected with 100 mL of Omnipaque 300. FINDINGS: LUNG BASES-: No visible nodule. No infiltrate. LIVER/GB: No calcified gallstones. No space occupying hepatic lesion. Biliary tree is of normal ca liber. Mild hepatic steatosis identified. PANCREAS: No inflammation. No distinct mass. SPLEEN: No splenic enlargement. No lesion seen. ADRENALS: No nodule. No thickening. KIDNEYS/BLADDER: No hydronephrosis. No nephrolithiasis. No disctinct renal mass. Urinary bladder g rossly unremarkable. BOWEL: Mild fluid distention of the small bowel. Fluid contents also noted within the colon. Correlat e for gastroenteritis. No definite obstruction. No abscess or free air. No inflammatory process seen. GENITAL ORGANS: No gross abnormality. LYMPH NODES: No greater than 1cm abdominal or pelvic lymph nodes are appreciated. AORTA: No significant abnormality. OSSEOUS STRUCTURES: Degenerative change lumbar spine. OTHER: No significant additional abnormality is seen. IMPRESSION: 1. Correlate for gastroenteritis. 2. Mild hepatic steatosis.
[2016-11-29 14:40] VITALS: BP 154/69; PULSE 79; RESP 18; TEMP 98.2
== END 2016-11-29 14:40 | disposition home or self-care (01) ==
LOC: EC 12:14
DX: K29.70 Gastritis, unspecified, without bleeding (principal); K52.9 Noninfective gastroenteritis and colitis, unspecified; K21.9 Gastro-esophageal reflux disease without esophagitis; I10 Essential (primary) hypertension; I25.2 Old myocardial infarction; I25.10 Atherosclerotic heart disease of native coronary artery without angina pectoris; F32.9 Major depressive disorder, single episode, unspecified; F41.9 Anxiety disorder, unspecified; Z87.891 Personal history of nicotine dependence; Z79.82 Long term (current) use of aspirin; Z79.899 Other long term (current) drug therapy; Z88.0 Allergy status to penicillin; Z88.8 Allergy status to other drugs, medicaments and biological substances; Z90.49 Acquired absence of other specified parts of digestive tract
CPT/HCPCS: 99284; 96374; 96375; 96361; 36415; 93005; 80053; 82150; 83690; 85025; 81003; 74000; 74177; J2270; J2405; Q9967

== ENCOUNTER → 2016-12-01 | Day surgery (SDC) | payer OTHER ==
[2016-11-17 10:39] VITALS: BMI 31.0
[~2016-12-01] MED LIST: ALPRAZolam 0.25 MG TAB PO PRN; ALPRAZolam 0.5 MG TAB PO PRN; ASPIRIN 325 MG TAB PO STA; ATORVASTATIN 80 MG TAB PO STA; IOHEXOL 300 MG/ML 50 ML BOTTLE INJ ONE; LIDOCAINE 2% INJ 20 MG/ML (20 ML MDV) ONE; LIDOCAINE 2% INJ 20 MG/ML SQ ONE; MIDAZOLAM 2 MG/2 ML VIAL IV ONE; MIDAZOLAM 2 MG/2 ML VIAL ONE; NITROGLYCERIN OINT 1 INCH/GM PACKET TOPICAL ONE; NITROGLYCERIN SL TABS 0.4 MG TAB SUBLINGUAL PRN; RX INFO: IV CONTRAST WAS GIVEN 1 EACH MISC MISCELLANE PRN; SODIUM CHLORIDE 0.9% 1,000 ML IV SCH; SODIUM CHLORIDE 0.9% 1,000 ML in EMPTY BAG 1 BAG IV ONE; diphenhydrAMINE 50 MG/ML 1 ML VIAL IVP ONE; diphenhydrAMINE 50 MG/ML 1 ML VIAL ONE; fentaNYL (PF) 50 MCG/ML 2 ML AMP ONE
[2016-12-01 06:23] VITALS: TEMP 97.9
--- NOTE | 2016-12-01 08:09 | CC ---
DATE OF SERVICE: INDICATION: Chest pain with abnormal stress test showing evidence of prior inferior wall myocardial infarction. PROCEDURE NOTE: After obtaining informed consent, left heart catheterization and coronary angiogram are performed via the right femoral artery using standard Emma catheters. Patient tolerated the procedure well without any obvious immediate complications. FINDINGS: 1. HEMODYNAMICS: Left ventricular end-diastolic pressure is 8 to 12 mm. There is no significant gradient across the aortic valve. 2. LEFT VENTRICULOGRAM: Left ventriculogram is not performed. 3. ANGIOGRAPHIC DATA: LEFT MAIN CORONARY ARTERY: Left main coronary artery is a short vessel, it divides into left anterior descending coronary artery and circumflex coronary artery. LAD and its branches are free of significant stenosis. Circumflex coronary artery is a large dominant vessel, gives off a large-caliber OM branch in its proximal part and is free of significant stenosis. Circumflex coronary artery shows a large dominant vessel that shows a mild atherosclerotic plaque in its proximal portion. Right coronary artery is a small nondominant vessel and is free of significant stenosis. CONCLUSION: 1. There is a mild nonobstructive coronary artery disease involving circumflex coronary artery. 2. False positive stress test. 3. Patient had a similar angiogram and Angio-Seal was deployed for hemostasis. Patient will proceed with the knee replacement.
--- NOTE | 2016-12-01 08:11 | LTR ---
December 01, 2016 RE: Torsten Herrera Dear Dr. Mckeon: Torsten Herrera is a 56-year-old gentleman who is to undergo right knee replacement surgery by you and was referred to us for preop cardiac evaluation. His stress test revealed evidence of prior inferior wall myocardial infarction. Due to which he was advised to undergo cardiac catheterization. His cardiac catheterization revealed mild nonobstructive coronary artery disease involving circumflex coronary artery. Patient is stable to undergo surgery under anesthesia and is an acceptable risk candidate for surgery. Thank you for giving me the privilege to participate in the care of this pleasant gentleman. Sincerely, SHINE MOROCHO MD
[2016-12-01 13:14] VITALS: BP 126/76; PULSE 48; RESP 16
--- NOTE | 2016-12-14 07:58 | CDI ---
Mr. Herrera was seen on 12/01 for a cardiac catheterization. IV sedation is checked off on the anesthesia record. Per new CMS ([employer] for Medicare and Medicaid Services) guidelines there is a change by which the work of moderate/conscious sedation will be reimbursed separately. Further clarification of the documentation of IV sedation is needed for proper reporting purposes. Please clarify the type of sedation this patient received during the cardiac catheterization. Moderate/conscious sedation MAC (unconscious sedation) General Anesthesia Other (please specify) Please document your findings in an addendum to the Procedure Note. If you have any questions about this query, you may contact Attorney Lawyer, Luz Marina Saucedo at between 8am and 6pm Monday-Monday Thank you for your time. EMORY Valverde
--- NOTE | 2017-01-17 13:37 | CC ---
ADDENDUM: DATE OF SERVICE: I have used moderate conscious sedation for this patient. The total sedation time was 15 minutes.
== END ==
LOC: CATHCVL 05:51
PROVIDERS: ATTEND Internal Medicine Cardiovascular Disease
DX: I25.10 Atherosclerotic heart disease of native coronary artery without angina pectoris (principal); I10 Essential (primary) hypertension; Z79.899 Other long term (current) drug therapy; Z88.1 Allergy status to other antibiotic agents; Z88.8 Allergy status to other drugs, medicaments and biological substances
CPT/HCPCS: 93458; 99152; C1760; C1894; C1769; J2001; J2250; J1200; J3010; Q9967

== ENCOUNTER → 2016-12-15 | Outpatient (CLI) | payer OTHER ==
[2016-12-15 10:21] LABS: EKG EKG PERFORMED
[2016-12-15 10:44] LABS: CH 31.6; CHCM 33.8; HCT 39.5 % (39.0-53.0); HDW 2.58; HGB 13.2 gm/dL (13.0-17.5); MCH 31.3 pg (25.0-35.0); MCHC 33.3 g/dL (31.0-37.0); Mean Platelet Volume 6.5; RDW 14.3 % (11.5-15.5); WBC 7.5 k/uL (3.8-10.6)
[2016-12-15 10:46] LABS: ALT 43 U/L (21-72); AST 24 U/L (17-59); Alkaline Phosphatase 73 U/L (38-126); Anion Gap 9 mmol/L; Blood Urea Nitrogen 15 mg/dL (9-20); Calcium 9.3 mg/dL (8.4-10.2); Carbon Dioxide 27 mmol/L (22-30); Chloride 103 mmol/L (98-107); Glucose 114 mg/dL (74-99); Non-African American GFR(MDRD) >60 (>60 ml/min/1.73 sqM); Potassium 4.7 mmol/L (3.5-5.1); Sodium 139 mmol/L (137-145); Total Bilirubin 0.4 mg/dL (0.2-1.3); Total Protein 6.7 g/dL (6.3-8.2)
[2016-12-15 11:11] LABS: INR 0.9 (<1.1); Partial Thromboplastin Time 23.8 sec (22.0-30.0); Prothrombin Time 9.7 sec (9.0-12.0)
[2016-12-15 11:21] LABS: Appearance,Urine Clear (Clear); Bilirubin,Urine Negative (Negative); Glucose,Urine (UA) Negative (Negative); Ketones,Urine Negative (Negative); Leukocyte Esterase,Urine Negative (Negative); Nitrite,Urine Negative (Negative); Protein,Urine Negative (Negative); Specific Gravity,Urine 1.016 (1.001-1.035); UA Billing (MACRO vs. MICRO) CHEM; Urobilinogen,Urine <2.0 mg/dL (<2.0)
== END | disposition home or self-care (01) ==
LOC: LABPAT 10:01
PROVIDERS: ATTEND Orthopaedic Surgery
DX: Z01.810 Encounter for preprocedural cardiovascular examination (principal); Z01.812 Encounter for preprocedural laboratory examination
CPT/HCPCS: 80053; 81003; 85027; 85610; 85730; 87070; 93005

== ENCOUNTER 2016-12-26 08:01 | Inpatient (IN) | payer OTHER ==
[2016-12-20 10:47] VITALS: BMI 31.4
[~2016-12-26 08:01] MED LIST changes: +ACETAMINOPHEN TAB 500 MG TAB PO ONE; -ALPRAZolam 0.25 MG TAB PO PRN; -ALPRAZolam 0.5 MG TAB PO PRN; -ASPIRIN 325 MG TAB PO STA; -ATORVASTATIN 80 MG TAB PO STA; +DEXAMETHASONE SOD PHOSPHATE 10 MG/ML 1 ML VIAL IV ONE; +HYDROmorphone 1 MG/ML 1 ML SYRINGE IVP PRN; -IOHEXOL 300 MG/ML 50 ML BOTTLE INJ ONE; -LIDOCAINE 2% INJ 20 MG/ML (20 ML MDV) ONE; -LIDOCAINE 2% INJ 20 MG/ML SQ ONE; +MELOXICAM 7.5 MG TAB PO ONE; -MIDAZOLAM 2 MG/2 ML VIAL IV ONE; +MIDAZOLAM 2 MG/2 ML VIAL IV PRN; -MIDAZOLAM 2 MG/2 ML VIAL ONE; -NITROGLYCERIN OINT 1 INCH/GM PACKET TOPICAL ONE; -NITROGLYCERIN SL TABS 0.4 MG TAB SUBLINGUAL PRN; +ONDANSETRON 4 MG/2 ML VIAL IVP ONE; -RX INFO: IV CONTRAST WAS GIVEN 1 EACH MISC MISCELLANE PRN; +SCOPOLAMINE 1.5MG/72HR PATCH TRANSDERM ONE; -SODIUM CHLORIDE 0.9% 1,000 ML IV SCH; -SODIUM CHLORIDE 0.9% 1,000 ML in EMPTY BAG 1 BAG IV ONE; +TRANEXAMIC ACID 1,000 MG in SODIUM CHLORIDE 0.9% 100 ML IVPB ONE; -diphenhydrAMINE 50 MG/ML 1 ML VIAL IVP ONE; -diphenhydrAMINE 50 MG/ML 1 ML VIAL ONE; -fentaNYL (PF) 50 MCG/ML 2 ML AMP ONE
[2016-12-26] MEDS: LACTATED RINGERS 1,000 ML IV SCH (08:32)
[2016-12-26] MEDS ORDERED: LIDOCAINE 1% 20 ML VIAL (10MG/ML) FOR IV START INTRADERMA ONE (08:32)
[2016-12-26] MEDS ORDERED: fentaNYL (PF) 50 MCG/ML 2 ML AMP IV ONE (09:05)
[2016-12-26] MEDS ORDERED: ROPIVACAINE 246.25 MG, EPINEPHrine 0.5 MG, KETOROLAC 30 MG, cloNIDine HCL/PF 80 MCG, WA... MISCELLANE ONE ×5 (09:45)
[2016-12-26] MEDS ORDERED: ROPIVACAINE 1,100 MG, SODIUM CHLORIDE 0.9% 330 ML MISCELLANE PRN ×2 (09:57)
--- NOTE | 2016-12-26 09:59 | P.ONQ ---
Anesthesiology Proc Note - PNB - Peripheral Nerve Block Performed Right Adductor Canal Indication: Acute Post-Operative Pain, Requested by physician (Clifford Mckeon) Sedation Type: Sedate with meaningful contact maintained Preparation: Sterile Dressing Position: Supine Catheter: Indwelling (Pajunk) Needle Size: 100mm (4") Needle Gauge: 18 Technique: Ultrasound Injectate: 0.5% Ropivacaine (see comment for volume) (20cc) Blood Aspirated: No Pain Paresthesia on Injection Noted: No Resistance on Injection: Normal Events: Uneventful and Well Tolerated
[2016-12-26] MEDS ORDERED: MIDAZOLAM 2 MG/2 ML VIAL ONE (10:12)
[2016-12-26] MEDS ORDERED: PROPOFOL 10 MG/ML 20 ML VIAL IV ONE (10:12)
[2016-12-26] MEDS ORDERED: fentaNYL (PF) 50 MCG/ML 2 ML AMP ONE (10:12)
[2016-12-26] MEDS ORDERED: ePHEDrine 50 MG/ML 1 ML AMP ONE (10:12)
[2016-12-26] MEDS ORDERED: TRANEXAMIC ACID 1,000 MG/10 ML VIAL ONE (10:12)
[2016-12-26] MEDS ORDERED: SODIUM CHLORIDE 0.9% 100 ML BAG ONE (10:12)
[2016-12-26] MEDS ORDERED: PHENYLEPHRINE-0.9% NACL SYG 1 MG/10 ML SYRINGE ONE (10:12)
[2016-12-26] MEDS: CLINDAMYCIN 900 MG in DEXTROSE 5% IN WATER 50 ML IVPB ONE ×4 (10:20→10:42)
[2016-12-26] MEDS ORDERED: CLINDAMYCIN 1,800 MG in SODIUM CHLORIDE 0.9% IRRIGATIO 3,000 ML IRRIGATION ONE (10:43)
[2016-12-26] MEDS ORDERED: LACTATED RINGERS 1,000 ML IV ONE (10:54)
--- NOTE | 2016-12-26 11:36 | P.OP ---
Date of Procedure: 12/26/16 Preoperative Diagnosis: Severe osteoarthritis right knee Postoperative Diagnosis: Severe osteoarthritis right knee Procedure(s) Performed: Right total knee arthroplasty Implants: Hatfield [employer]hew Oxinium femoral component size 7, right Hatfield [employer]hew Christiana II right nonporous tibial baseplate size 8 Hatfield [employer] Nephew size 11 mm Legion XLPE high flexion articular insert, size 7-8 [employer] Christiana II resurfacing patellar component, 35 mm All components were cemented using Damion bone cement.. The articulation is ceramic on polyethylene. Anesthesia: spinal Surgeon: Clifford Mckeon Admissions Dean #1: Fay Roa Admissions Dean #2: Kendra Fall Estimated Blood Loss (ml): 50 Pathology: other (Bone and cartilage) Condition: stable Disposition: PACU Indications for Procedure: After failure of conservative treatment we discussed the surgical and nonsurgical treatment options at length. Patient wishes to proceed with a total knee arthroplasty. Complications specific to this procedure were discussed at length, including but not limited to infection, bleeding, stiffness , and nerve injury. Patient is aware of all these complications and informed consent was obtained Operative Findings: The operative findings are consistent with severe osteoarthritis of the right knee Description of Procedure: Patient was seen in the preoperative area consent was reviewed and operative site was marked with a skin marker. An adductor canal pain catheter was placed by anesthesia in the preoperative area. Patient was then brought to the operating room and given preoperative antibiotics intravenously. A spinal anesthetic was administered by the anesthesia department. A tourniquet was placed on the upper thigh and the lower extremity was prepped and draped in usual sterile fashion. A gram of transexamic acid was given. A universal timeout was then performed which confirmed the patient's name, surgical site, ALLERGIES, and consent. The lower extremity was then exsanguinated and tourniquet was inflated to 250 mmHg. A standard and anterior midline approach to the knee was performed. The skin and subcutaneous tissue was dissected down to the patellar tendon. A medial parapatellar arthrotomy was then performed. The knee was then extended, the patellar was everted, and the knee was again flexed. Anterior horns of both menisci were excised, and a release was performed to the posterior medial aspect of the knee. On gross visual inspection, there was complete loss of articular cartilage in the medial and patellofemoral joint spaces. There was also significant cartilage damage in the lateral compartment. There were multiple periarticular osteophytes which were then removed with a Ronguer. The femoral canal was then opened with the appropriate drill, and the intramedullary femoral cutting guide was then placed and set for 4 of valgus. The distal femoral cutting block was then pinned in place, and the distal femur was then cut. The cutting block was then removed and the cut was checked for flatness. Next, the sizing guide was then placed and set for 3 external rotation based off of the epicondylar axis and [place] line. After the femur was sized, the appropriate 4-in-1 cutting block was then pinned in place. The anterior condyles were cut without notching. The posterior and chamfer cuts were performed while protecting the collateral ligaments. The cutting block was then removed, and the femoral canal was plugged with autologous bone. Attention was then directed to the tibia. The remaining ACL was removed with a Ronguer, and the tibia was then gently subluxed forward with a large bent knee retractor. Any remaining menisci was excised. The posterior lateral corner was cauterized in order to cauterize the lateral geniculate artery. The extra medullary tibial cutting guide was then placed, set for the appropriate rotation , slope, and depth of resection. The proximal tibia cutting guide was then pinned in place. Proximal tibia was then cut and sized. Next trials were then placed with the appropriate-sized insert. The knee was able to fully extend and flex to 130 and was stable throughout all range of motion. The knee was then extended, patella everted. Patella was then measured, and then using an osteotomy guide, the patella was cut at the appropriate level. The patella was then measured and drilled and the patella trial was then placed. The knee was then taken through range of motion with the patella trial and the patella tracked normally. The knee was then extended patella trial was then removed and the patella was everted. Knee was then flexed and lug holes were drilled through the femoral trial and the femoral trial was then removed. The tibial was then exposed, and the tibial broach guide was then pinned in place after it was set for the appropriate rotation to allow for the most coverage without overhang. The tibia was then reamed and broached. The cut surfaces of bone were then irrigated with pulsatile lavage. The posterior structures were injected with the ropivacaine solution. The knee was also irrigated with Irrisept solution. The components were then opened, the cement was mixed, and the components were then cemented in place. The cement was allowed to harden with the knee in full extension. While the cement was hardening, the remaining soft tissues were then injected with a ropivacaine solution, which consisted of 246.25 mg of ropivacaine, 0.5 mg of epinephrine, 30 mg of Toradol, 80 g of clonidine, and 48.45 mL of sterile water, for a total of 100 mL of fluid injected. After the cemented hardened. The tourniquet was released, and hemostasis was obtained. A second gram of transexamic acid was given. The knee was again irrigated. The knee was again taken through range of motion and found to be stable throughout all range of motion of 0-130 , and the patella tracked normally. The fascia was then closed with #2 strata fix suture. The subcutaneous tissue was closed with 3-0 Vicryl and 3-0 strata fix. Dermabond tape was used for the skin and placed with the knee in flexion. The patient was placed in a sterile dressing. Patient was then transferred to recovery room in stable condition. The home health assistant ROMULO Mckeon was required due the complexity surgery and the need for a skilled surgical instrument technician. She assisted in positioning, draping , retraction, and closure of the wound.
[2016-12-26] MEDS ORDERED: DIAZEPAM 5 MG TAB PO PRN (11:54)
[2016-12-26] MEDS ORDERED: ONDANSETRON 4 MG/2 ML VIAL IVP PRN (11:54)
[2016-12-26] MEDS ORDERED: hydrOXYzine PAMOATE 25 MG CAP PO PRN (11:54)
[2016-12-26] MEDS ORDERED: NA PHOS,M-B/NA PHOS,DI-BA 133 ML ENEMA RECTAL PRN (11:54)
[2016-12-26] MEDS ORDERED: MAGNESIUM HYDROXIDE 2,400 MG/10 ML CUP PO PRN (11:54)
[2016-12-26] MEDS ORDERED: HYDROmorphone 1 MG/ML 1 ML SYRINGE IVP PRN (11:54)
[2016-12-26] MEDS ORDERED: NALOXONE 0.4 MG/ML 1 ML VIAL IV PRN (11:54)
[2016-12-26] MEDS ORDERED: HYDROcodone/APAP 5-325MG 1 EACH TAB PO PRN ×2 (11:54)
[2016-12-26] MEDS ORDERED: BISACODYL 10 MG SUPP RECTAL PRN (11:54)
--- NOTE | 2016-12-26 12:44 | XR ---
EXAMINATION TYPE: XR knee limited RT DATE OF EXAM: 12/26/2016 12:13 PM COMPARISON: 08/26/2014 HISTORY: 56-year-old male evaluation for postoperative abnormality and alignment TECHNIQUE: Portable AP and crosstable lateral views FINDINGS: Images show placement of right total knee arthroplasty. Both distal femoral and proximal tibial compo nents of the prosthetic pieces are well seated without periprosthetic fracture. Anterior soft tissue swelling with soft tissue gas as well as intra-articular air and joint effusion compatible with recen t operation. IMPRESSION: Uncomplicated postoperative appearance right total knee arthroplasty.
[2016-12-26] MEDS: SODIUM CHLORIDE 0.9% 1,000 ML IV SCH (12:59)
[2016-12-26] MEDS: HYDROmorphone 1 MG/ML 1 ML SYRINGE IVP PRN ×4 (14:27→22:45)
[2016-12-26] MEDS: DIAZEPAM 5 MG TAB PO PRN (15:17)
[2016-12-26] MEDS: CLINDAMYCIN 900 MG in DEXTROSE 5% IN WATER 50 ML IVPB SCH ×4 (15:39→21:03)
[2016-12-26] MEDS: ASPIRIN 325 MG TAB PO SCH (19:41)
[2016-12-26] MEDS: SENNOSIDES-DOCUSATE SODIUM 1 EACH TAB PO SCH (19:41)
[2016-12-26] MEDS ORDERED: ALBUTEROL NEBULIZED 2.5 MG/3 ML INHALATION PRN (20:15)
[2016-12-26] MEDS ORDERED: PANTOPRAZOLE 40 MG TABLET PO PRN (20:15)
[2016-12-26] MEDS: LATANOPROST 0.005% OPHTH DROPS 2.5 ML BTL BOTH EYES SCH (21:02)
[2016-12-26] MEDS: GABAPENTIN 300 MG CAP PO SCH (21:03)
[2016-12-26] MEDS: NICOTINE 14MG/24HR PATCH TRANSDERM SCH (21:04)
[2016-12-27] MEDS: HYDROmorphone 1 MG/ML 1 ML SYRINGE IVP PRN ×6 (01:40→21:57)
[2016-12-27] MEDS ORDERED: HYDROmorphone 1 MG/ML 1 ML SYRINGE ONE (05:30)
[2016-12-27] MEDS: oxyCODONE-APAP 10-325MG 1 EACH TAB PO PRN ×3 (07:21→19:43)
[2016-12-27] MEDS: LACTATED RINGERS 1,000 ML IV SCH (07:24)
[2016-12-27] MEDS: SODIUM CHLORIDE 0.9% 1,000 ML IV SCH ×2 (07:24→17:51)
[2016-12-27 08:35] LABS: Basophils % (A) 0 %; CH 31.3; CHCM 32.6; Eosinophils % (A) 0 %; HCT 35.5 % (39.0-53.0); HDW 2.44; HGB 11.6 gm/dL (13.0-17.5); Luc # (Auto) 0.25; Luc % (Auto) 2; Lymphocytes # (A) 1.6 k/uL (1.0-4.8); Lymphocytes % (A) 14 %; MCH 31.5 pg (25.0-35.0); MCHC 32.6 g/dL (31.0-37.0); MCV 96.5 fL (80.0-100.0); Mean Platelet Volume 6.8; Monocytes # (A) 0.7 k/uL (0-1.0); Monocytes % (A) 6 %; Neutrophils # (A) 9.2 k/uL (1.3-7.7); Neutrophils % (A) 78 %; RBC 3.68 m/uL (4.30-5.90); RDW 14.2 % (11.5-15.5); WBC 11.8 k/uL (3.8-10.6); WBC (Perox) 12.42
[2016-12-27] MEDS: GABAPENTIN 300 MG CAP PO SCH ×3 (09:26→21:56)
[2016-12-27] MEDS: LISINOPRIL 20 MG TAB PO SCH (09:26)
[2016-12-27] MEDS: MELOXICAM 7.5 MG TAB PO SCH (09:26)
[2016-12-27] MEDS: amLODIPine 10 MG TAB PO SCH (09:26)
[2016-12-27] MEDS: ASPIRIN 325 MG TAB PO SCH ×2 (09:26→21:56)
--- NOTE | 2016-12-27 10:24 | CONS ---
DATE OF CONSULTATION: 12/26/2016 REASON FOR CONSULTATION: Medical management requested by Dr. Mckeon. CONSULTATION: This is a pleasant 56-year-old patient who follows with Dr. Chavez, has undergone a right total knee arthroplasty. Post surgery, lying in bed, comfortable, did tolerated some supper. Chronic stable medical conditions include COPD, hypertension, lumbar DJD, restless leg syndrome, fibromyalgia, GERD, pancreatitis, intermittent; varicose veins, some anxiety, depression. The patient did have a cardiac cath here that was negative. REVIEW OF SYSTEMS: CONSTITUTIONAL: Tired. HEENT: None. RESPIRATORY: Some shortness of breath, wheezing. CARDIOVASCULAR: None. GASTROINTESTINAL: Heartburn. GENITOURINARY: GENITOURINARY: None. MUSCULOSKELETAL: Pain in multiple joints. DERMATOLOGICAL: None. HEMATOLOGICAL: None. LYMPHATIC: None. PSYCHIATRY: None. NEUROLOGICAL: None. PAST MEDICAL HISTORY: COPD, hypertension, lumbar DJD, restless leg syndrome, fibromyalgia, GERD, pancreatitis, varicose veins, anxiety, depression. PAST SURGICAL HISTORY: Appendectomy, prostate surgery, arthroscopic surgery right knee for torn cartilage. PSYCHOLOGICAL HISTORY: Anxiety and depression. SOCIAL HISTORY: The patient smoked for close to 40 years, was down to 1/2 pack or 3/4 pack a day, has decided to stop. Lives with his sister. FAMILY HISTORY: Reviewed, noncontributory to presentation. HOME MEDICATIONS: 1. Requip 1 mg p.o. q.h.s. 2. Percocet 10, 1 tablet p.o. t.i.d. p.r.n. 3. Norvasc 10 mg p.o. daily. 4. Prilosec 20 mg before breakfast p.r.n. 5. NicoDerm CQ 1 patch daily. 6. Zestril 20 mg p.o. daily. 7. Xalatan 0.005% 1 drop to both eyes at bedtime. 8. Neurontin 300 mg p.o. t.i.d. 9. Aerospan 1 puff inhalation b.i.d. 10. Flexeril 10 mg p.o. daily p.r.n. 11. Aspirin 81 mg p.o. daily. 12. Ventolin HFA 2 puffs every 6 hours p.r.n. ALLERGIES TO AMOXICILLIN, POTASSIUM, LYRICA. On examination, temperature 98, pulse 983, respirations 18, blood pressure 118/89, pulse ox 97% on room air. GENERAL APPEARANCE: Well built, BMI of 31; sitting up in bed, not in distress. EYES: Pupils equal. Conjunctivae normal. HEENT: Oral cavity normal. NECK: JVD not raised. Mass not palpable. RESPIRATORY: Effort normal. LUNGS: Diminished breath sounds. CARDIOVASCULAR: First and second sounds are normal. No edema. ABDOMEN: Soft, nontender. Liver and spleen not palpable. LYMPHATIC: No lymph node palpable in neck or axillae. PSYCHIATRY: Alert and oriented x3. Mood and affect normal. EXTREMITIES: Right knee in a dressing. INVESTIGATIONS: No blood work. ASSESSMENT: 1. Right total knee arthroplasty with severe osteoarthritis. 2. Primary osteoarthritis of multiple joints, bilateral. 3. Chronic obstructive pulmonary disease in a smoker. 4. Essential hypertension. 5. Lumbar degenerative joint disease. 6. Restless leg syndrome. 7. Chronic fibromyalgia. 8. Anxiety and depression, not otherwise specified. 9. Gastroesophageal reflux disease. 10. Varicose veins. PLAN: Home medications are resumed. For DVT prophylaxis, patient is still on aspirin. Pain control is in place. Patient was told to keep not smoking. Thank you, Dr. Mckeon.
--- NOTE | 2016-12-27 10:50 | P.PN ---
Progress Note - Text The patient is status post right adductor canal catheter placement. The catheter was placed for postoperative pain control, status post total right arthroplasty. Ropivacaine 0.2% is infusing at 10 mLs per hour. The patient has no complaints of right lower extremity numbness or weakness. Patient's VAS score is to 2-10. The patient reports his pain to be in the posterior portion of his knee Assessment: Patient's adductor canal catheter is in place and working appropriately. Plan: continue infusion and adjust it as needed.
[2016-12-27] MEDS: DIAZEPAM 5 MG TAB PO PRN (13:30)
--- NOTE | 2016-12-27 15:38 | P.PN ---
Subjective Principal diagnosis: This is a pleasant 56-year-old gentleman who is status post right total knee arthroplasty. Today's postoperative day #1. The patient is seen and evaluated at bedside with Dr. Clifford Mckeon. He does have some postoperative swelling around the knee. He complains of some posterior knee pain. He is otherwise has no new complaints at this time. Objective - Vital Signs Vital signs: Vital Signs Temp 97.4 F L 12/27/16 07:00 Pulse 82 12/27/16 08:00 Resp 17 12/27/16 07:00 BP 134/77 12/27/16 07:00 Pulse Ox 96 12/27/16 00:51 Intake & Output 12/26/16 12/27/16 12/27/16 18:59 06:59 18:59 Intake Total 4668 1485 240 Output Total 50 Balance 4618 1485 240 Weight 105.687 kg Intake: IV 4668 Intake, IV Titration 835 Amount Clindamycin 900 mg In 100 Dextrose 5% in Water 50 ml @ 100 mls/hr IVPB Q6H [facility] Rx#:[id number] Sodium Chloride 0.9% 1, 735 000 ml @ 70 mls/hr IV . [id number] [facility] Rx#:[id number] Oral 650 240 Output: Estimated Blood Loss 50 Other: Voiding Method Urinal Urinal Urinal # Voids 2 - Exam The patient does not appear in acute distress. Alert and orientated 3. Dressing is clean dry and intact. Incision appears fine with no erythema or active drainage. Soft tissue swelling is present. Calf is soft and nontender. Good foot and ankle motion without difficulty. Sensation and circulatory status is intact. - Labs CBC & Chem 7: 12/27/16 07:42 Labs: Abnormal Lab Results - Last 24 Hours (Table) 12/27/16 Range/Units 07:42 WBC 11.8 H (3.8-10.6) k/uL RBC 3.68 L (4.30-5.90) m/uL Hgb 11.6 L (13.0-17.5) gm/dL Hct 35.5 L (39.0-53.0) % Neutrophils # 9.2 H (1.3-7.7) k/uL Assessment and Plan (1) Status post total right knee replacement Status: Acute (2) Primary osteoarthritis of right knee Status: Acute Plan: 1. Continue with routine postoperative care. 2. Anticoagulation with aspirin. 3. Physical therapy and CPM today. 4. Appreciate input from medicine. 5. Anticipate discharge to home with home care likely tomorrow.
[2016-12-27] MEDS: SENNOSIDES-DOCUSATE SODIUM 1 EACH TAB PO SCH (21:55)
[2016-12-27] MEDS: NICOTINE 14MG/24HR PATCH TRANSDERM SCH (21:56)
[2016-12-27] MEDS: LATANOPROST 0.005% OPHTH DROPS 2.5 ML BTL BOTH EYES SCH (21:56)
[2016-12-28] MEDS: HYDROmorphone 1 MG/ML 1 ML SYRINGE IVP PRN ×8 (01:00→23:47)
[2016-12-28] MEDS: oxyCODONE-APAP 10-325MG 1 EACH TAB PO PRN ×3 (06:14→18:51)
[2016-12-28] MEDS: LACTATED RINGERS 1,000 ML IV SCH (08:13)
[2016-12-28] MEDS: DIAZEPAM 5 MG TAB PO PRN ×2 (08:13→17:02)
[2016-12-28] MEDS: SODIUM CHLORIDE 0.9% 1,000 ML IV SCH ×2 (08:13→22:55)
[2016-12-28] MEDS: amLODIPine 10 MG TAB PO SCH (08:16)
[2016-12-28] MEDS: MELOXICAM 7.5 MG TAB PO SCH (08:17)
[2016-12-28] MEDS: ASPIRIN 325 MG TAB PO SCH ×2 (08:17→22:47)
[2016-12-28] MEDS: GABAPENTIN 300 MG CAP PO SCH ×3 (08:17→22:48)
[2016-12-28] MEDS: LISINOPRIL 20 MG TAB PO SCH (08:17)
--- NOTE | 2016-12-28 09:13 | P.PN ---
Subjective Principal diagnosis: Status post total knee arthroplasty This is a well-appearing 56-year-old male who is status post total knee arthroplasty. This is postoperative day #2. Patient is seen and evaluated at bedside with Dr. Clifford Mckeon today. Patient complains of increased pain today. Patient states he has been up and walking. Patient states he's also noticed some increased swelling. Otherwise the patient has no further complaints. Objective - Vital Signs Vital signs: Vital Signs Temp 97.6 F 12/28/16 07:00 Pulse 97 12/28/16 07:00 Resp 16 12/28/16 07:00 BP 134/74 12/28/16 07:00 Pulse Ox 95 12/28/16 07:00 Intake & Output 12/27/16 12/28/16 12/28/16 18:59 06:59 18:59 Intake Total 240 840 240 Output Total 1150 Balance 240 -310 240 Intake: Intake, IV Titration 840 Amount Sodium Chloride 0.9% 1, 840 000 ml @ 70 mls/hr IV . [id number] [facility] Rx#:[id number] Oral 240 240 Output: Urine 1150 Other: Voiding Method Urinal # Voids 1 - Exam The patient does not appear in acute distress. Vital signs are stable. A&O 3. Calf is soft with mild tenderness to palpation. Incision is clean, dry, and intact. Neurovascular status intact. Patient has full foot and ankle motion. - Labs CBC & Chem 7: 12/27/16 07:42 Assessment and Plan (1) Primary osteoarthritis of right knee Status: Acute (2) Status post total right knee replacement Status: Acute Plan: #1. A doppler study will be done today to rule out DVT #2 continue with routine postoperative care. #3 anticoagulation with aspirin. #4 physical therapy and CPM today. #5 appreciated input from medicine. #6 anticipate discharged home with home care likely tomorrow.
--- NOTE | 2016-12-28 09:47 | PN ---
DATE OF SERVICE: 12/27/2016 PRESENTING COMPLAINT: Right total knee arthroplasty. INTERVAL HISTORY: Patient is status post knee surgery. Doing well. Tolerating a diet. Breathing is stable. Working with physical therapy. Tolerating his diet. Review of systems done for constitutional, cardiovascular, GI, pulmonary, musculoskeletal; relevant findings as above. Current medications are reviewed. On examination, temperature 97.4, pulse 82, respirations 17, blood pressure 134/77, pulse ox 96% on room air. GENERAL APPEARANCE: Sitting up, comfortable. EYES: Pupils equal. Conjunctivae normal. NECK: JVD not raised. Mass not palpable. RESPIRATORY: Effort normal. H LUNGS: Decreased breath sounds. CARDIOVASCULAR: First and second sounds normal. No edema. ABDOMEN: Soft, nontender. Liver and spleen not palpable. PSYCHIATRY: Alert and oriented x3. Mood and affect normal. INVESTIGATIONS: Hemoglobin 11.6. ASSESSMENT: 1. Right total knee arthroplasty with severe osteoarthritis. 2. Primary osteoarthritis of multiple joints bilateral. 3. Chronic obstructive pulmonary disease in a smoker. 4. Essential hypertension. 5. Lumbar degenerative joint disease. 6. Restless leg syndrome. 7. Chronic fibromyalgia. 8. Anxiety, depression, not otherwise specified. 9. Gastroesophageal reflux disease. 10. Varicose veins. PLAN: Continue current medications and treatment plan. Follow. Thank you, Dr. Mckeon.
--- NOTE | 2016-12-28 09:59 | US ---
EXAMINATION TYPE: US venous doppler duplex LE RT DATE OF EXAM: 12/28/2016 9:46 AM COMPARISON: Prior bilateral venous ultrasound July 12, 2013. CLINICAL HISTORY: pain and swelling. Rule out DVT. Rt knee replacement 12/26/16. Pain. On aspirin. No hx of DVT. SIDE PERFORMED: Right TECHNIQUE: The lower extremity deep venous system is examined utilizing real time linear array sonog miguel a with graded compression, doppler sonography and color-flow sonography. VESSELS IMAGED: External Iliac Vein (EIV) Common Femoral Vein Deep Femoral Vein Greater Saphenous Vein * Femoral Vein Popliteal Vein Small Saphenous Vein * Proximal Calf Veins (* superficial vessels) Right Leg: Appears negative for DVT Grayscale, color doppler, spectral doppler imaging performed of the deep veins of the lower extremiti es. There is normal flow, compressibility, vascular waveforms bilaterally. IMPRESSION: No ultrasound evidence for acute DVT on the current study.
[2016-12-28] MEDS: KETOROLAC 30 MG/ML 1 ML VIAL IVP PRN ×3 (10:33→22:52)
--- NOTE | 2016-12-28 12:44 | PN ---
DATE OF SERVICE: 12/28/2016 PRESENTING COMPLAINT: Right total knee arthroplasty. INTERVAL HISTORY: Patient is status post right knee surgery, doing well. No chest pain, short of breath. No nausea or vomiting. Did work with physical therapy. Review of systems done for constitutional, cardiovascular, GI, pulmonary; relevant findings as above. Current medications are reviewed. On examination, temperature 97.6, pulse 97, respiration 16, blood pressure 130/74, pulse ox 95% on room air. GENERAL APPEARANCE: Sitting up, comfortable. EYES: Pupils equal. Conjunctivae normal. NECK: JVD not raised. Mass not palpable. RESPIRATORY: Effort normal. LUNGS: Decreased breath sounds. CARDIOVASCULAR: First and second sounds normal. No edema. ABDOMEN: Soft, nontender. Liver and spleen not palpable. PSYCHIATRY: Alert and oriented x3. Mood and affect normal. INVESTIGATIONS: White count 11.8, hemoglobin 11.6. ASSESSMENT: 1. Right total knee arthroplasty. 2. Primary osteoarthritis of multiple joints, bilateral. 3. Chronic obstructive pulmonary disease in a smoker. 4. Essential hypertension. 5. Lumbar degenerative joint disease. 6. Restless leg syndrome. 7. Chronic fibromyalgia. 8. Anxiety, depression, not otherwise specified. 9. Gastroesophageal reflux disease. 10. Varicose veins in the lower extremity. 11. Chronic nicotine dependence. PLAN: Continue medication and treatment plan. Will add a nicotine patch.
[2016-12-28] MEDS: LATANOPROST 0.005% OPHTH DROPS 2.5 ML BTL BOTH EYES SCH (22:48)
[2016-12-28] MEDS: NICOTINE 14MG/24HR PATCH TRANSDERM SCH (22:49)
[2016-12-28] MEDS: SENNOSIDES-DOCUSATE SODIUM 1 EACH TAB PO SCH (22:53)
[2016-12-29] MEDS: DIAZEPAM 5 MG TAB PO PRN ×2 (00:34→08:35)
[2016-12-29] MEDS: oxyCODONE-APAP 10-325MG 1 EACH TAB PO PRN ×2 (01:07→07:23)
[2016-12-29 01:15] VITALS: RESP 16
[2016-12-29] MEDS: HYDROmorphone 1 MG/ML 1 ML SYRINGE IVP PRN ×4 (03:13→12:18)
[2016-12-29] MEDS: KETOROLAC 30 MG/ML 1 ML VIAL IVP PRN ×2 (04:59→11:05)
[2016-12-29] MEDS: LACTATED RINGERS 1,000 ML IV SCH (05:27)
[2016-12-29] MEDS: GABAPENTIN 300 MG CAP PO SCH (07:23)
[2016-12-29] MEDS: amLODIPine 10 MG TAB PO SCH (07:23)
[2016-12-29] MEDS: ASPIRIN 325 MG TAB PO SCH (07:23)
[2016-12-29] MEDS: SODIUM CHLORIDE 0.9% 1,000 ML IV SCH (07:24)
[2016-12-29] MEDS: LISINOPRIL 20 MG TAB PO SCH (07:24)
[2016-12-29 07:28] LABS: Basophils # (A) 0.1 k/uL (0-0.2); Basophils % (A) 1 %; CH 31.2; CHCM 32.9; Eosinophils # (A) 0.2 k/uL (0-0.7); Eosinophils % (A) 3 %; HCT 33.7 % (39.0-53.0); HDW 2.47; HGB 11.1 gm/dL (13.0-17.5); Luc # (Auto) 0.19; Luc % (Auto) 3; Lymphocytes % (A) 28 %; MCH 31.5 pg (25.0-35.0); MCV 95.3 fL (80.0-100.0); Mean Platelet Volume 6.5; Monocytes # (A) 0.5 k/uL (0-1.0); Monocytes % (A) 8 %; Neutrophils % (A) 58 %; RBC 3.54 m/uL (4.30-5.90); RDW 13.9 % (11.5-15.5); WBC (Perox) 7.69
[2016-12-29 07:39] VITALS: BP 162/78; PULSE 81; TEMP 98.2
--- NOTE | 2016-12-29 09:14 | P.DS ---
Providers Date of admission: 12/26/16 08:01 Expected date of discharge: 12/29/16 Attending physician: Clifford Mckeon Consults: 12/26/16 11:54 Consult Physician Routine Consulting Provider: Jamal Tamayo Consult Reason/Comments: medical management Do you want consulting provider notified?: Yes Primary care physician: Albert Chavez - Discharge Diagnosis(es) (1) Primary osteoarthritis of right knee Current Visit: Yes Status: Acute (2) Status post total right knee replacement Current Visit: Yes Status: Acute Hospital Course: This is a 56-year-old male with known history of degenerative arthritis of the right knee. The patient presents for evaluation. After discussion and consideration patient elects to proceed with total knee arthroplasty. The patient is seen preoperatively by Dr. Mckeon and cleared for surgery. Patient is admitted to [facility] on 12/26/2016 for total knee arthroplasty. The procedures performed without complication or sequelae. The patient is doing well postoperatively. Labs and vital signs are stable on day of discharge. On day of discharge patient's knee incision is healing well. There is minimal erythema. There is no drainage noted at this time. There is minimal soft tissue swelling to the knee. Patient has full foot and ankle motion without difficulty or pain. Patient has been ambulating. Neurovascular status to the right lower extremity is intact. Patient is discharged home in good condition. Please see med rec for accurate list of home medications. Plan - Discharge Summary New Discharge Prescriptions: Aspirin 325 mg PO BID #60 tab Diazepam [Valium] 5 mg PO BID #14 tab HYDROcodone/APAP 10-325MG [[place] 10-325] 1 - 2 tab PO Q4-6H PRN #90 tab PRN Reason: Pain Sennosides-Docusate Sodium [Senokot-S] 1 tab PO BID #60 tablet Discharge Medication List Cyclobenzaprine [Flexeril] 10 mg PO DAILY PRN 06/28/16 [History] Gabapentin [Neurontin] 300 mg PO TID 06/28/16 [History] Latanoprost Ophth [Xalatan 0.005%] 1 drops BOTH EYES HS 06/28/16 [History] Lisinopril [Zestril] 20 mg PO DAILY 06/28/16 [History] rOPINIRole HCL [Requip] 1 mg PO HS 06/28/16 [History] Omeprazole [PriLOSEC] 20 mg PO AC-BRKFST PRN 07/19/16 [History] Albuterol Inhaler [Ventolin Hfa Inhaler] 2 puff INHALATION RT-Q6H PRN 09/26/16 [ History] Flunisolide [Aerospan] 1 puff INHALATION RT-BID 09/26/16 [History] amLODIPine [Norvasc] 10 mg PO DAILY 09/26/16 [History] Aspirin [Adult Low Dose Aspirin EC] 81 mg PO QAM 11/17/16 [History] Nicotine [Nicoderm Cq] 1 patch TRANSDERM DAILY 12/20/16 [History] oxyCODONE HCL/ACETAMINOPHEN [Percocet 10-325 mg] 1 tab PO TID PRN 12/20/16 [ History] Aspirin 325 mg PO BID #60 tab 12/29/16 [Rx] Diazepam [Valium] 5 mg PO BID #14 tab 12/29/16 [Rx] HYDROcodone/APAP 10-325MG [[place] 10-325] 1 - 2 tab PO Q4-6H PRN #90 tab [Rx] Sennosides-Docusate Sodium [Senokot-S] 1 tab PO BID #60 tablet 12/29/16 [Rx] Follow up Appointment(s)/Referral(s): Clifford Mckeon DO [Doctor of Osteopathic Medicine] - 2 Weeks Ambulatory/Diagnostic Orders: Continuous Passive Motion (CPM) Machine [DME.AMB1] Time Frame: 2 Weeks, Location : Determined By Patient Activity/Diet/Wound Care/Special Instructions: Weightbearing as tolerated with a walker CPM 5-6h daily Daily dressing changes, keep incision clean and dry May shower if no drainage from incision [facility] with questions or concerns [phone] Discharge Disposition: HOME WITH HOME HEALTH SERVICES
--- NOTE | 2016-12-29 11:44 | PN ---
DATE OF SERVICE: 12/29/2016 PRESENTING COMPLAINT: Right total knee arthroplasty. INTERVAL HISTORY: Patient is doing well, up and about, works with Physical Therapy. Tolerating his meals. Feeling good. Review of systems done for constitutional, cardiovascular, GI, pulmonary; relevant findings as above. Current medications are reviewed. On examination, temperature 98.2, pulse 81, respirations 16, blood pressure 162/78, pulse ox 95% on room air. GENERAL APPEARANCE: Sitting up, comfortable. EYES: Pupils equal. Conjunctivae normal. NECK: JVD not raised, mass not palpable. RESPIRATORY: Effort normal. LUNGS: Decreased breath sounds. CARDIOVASCULAR: First and second sounds normal, no edema. ABDOMEN: Soft, nontender. Liver and spleen not palpable. PSYCHIATRY: Alert and oriented x3. Mood and affect normal. INVESTIGATIONS: Hemoglobin 11.1. White count 7. ASSESSMENT: 1. Right total knee arthroplasty. 2. Primary osteoarthritis of multiple joints, bilateral. 3. Chronic obstructive pulmonary disease in a smoker. 4. Essential hypertension. 5. Lump, degenerative joint disease. 6. Restless leg syndrome. 7. Chronic fibromyalgia. 8. Anxiety, depression, not otherwise specified. 9. Gastroesophageal reflux disease. 10. Varicose veins in the lower extremities. 11. Chronic nicotine dependence. PLAN: Symptomatic treatment plan. If discharged, he is to follow with his family doctor.
== END 2016-12-29 13:15 | disposition home health service (06) | DRG 470 ==
LOC: 2ORMAIN 08:01 → 3SUR 11:54
PROVIDERS: ADMIT Orthopaedic Surgery; ATTEND Orthopaedic Surgery
PROC: 0SRC0J9 Replacement of Right Knee Joint with Synthetic Substitute, Cemented, Open Approach (ICD-10-PCS; principal; 2016-12-26 09:35)
DX: M17.11 Unilateral primary osteoarthritis, right knee (principal); I10 Essential (primary) hypertension; F32.9 Major depressive disorder, single episode, unspecified; F17.200 Nicotine dependence, unspecified, uncomplicated; F41.9 Anxiety disorder, unspecified; G25.81 Restless legs syndrome; I83.90 Asymptomatic varicose veins of unspecified lower extremity; J44.9 Chronic obstructive pulmonary disease, unspecified; K21.9 Gastro-esophageal reflux disease without esophagitis; M47.816 Spondylosis without myelopathy or radiculopathy, lumbar region; M79.7 Fibromyalgia; Z79.82 Long term (current) use of aspirin; Z79.899 Other long term (current) drug therapy; Z88.0 Allergy status to penicillin
CPT/HCPCS: 85025; 88300

== ENCOUNTER 2017-01-04 16:24 | Emergency (ER) | payer OTHER ==
--- NOTE | 2017-01-04 17:39 | ED ---
Lower Extremity Injury HPI - General Chief Complaint: Extremity Injury, Lower Stated Complaint: Leg Swollen-Post Op Time Seen by Provider: 01/04/17 17:22 Source: patient Mode of arrival: wheelchair Limitations: no limitations - History of Present Illness Initial Comments: Complaining about the right leg swelling and pain, he is status post total knee done on now December 29, he denies any fall or trauma to the knee after the surgery. He was giving [place] 1090 pills when he was discharged from the hospital he said he ran out of his pills this morning he said that at times he took more than recommended because of the pain. His right leg is swollen, there is some bruising he denies any chest pain any shortness of breath and he has no history of blood clots in the past he is on aspirin 325 mg by mouth daily here leg done today that was ordered by his physical therapist examination was done today and I reviewed the report exam is negative for any DVT within the right leg - Related Data Home Medications Medication Instructions Recorded Confirmed Cyclobenzaprine [Flexeril] 10 mg PO DAILY PRN 06/28/16 01/04/17 Gabapentin [Neurontin] 300 mg PO TID 06/28/16 01/04/17 Latanoprost Ophth [Xalatan 0.005%] 1 drops BOTH EYES HS 06/28/16 01/04/17 Lisinopril [Zestril] 20 mg PO DAILY 06/28/16 01/04/17 rOPINIRole HCL [Requip] 1 mg PO HS 06/28/16 01/04/17 Omeprazole [PriLOSEC] 20 mg PO QAM 07/19/16 01/04/17 Albuterol Inhaler [Ventolin Hfa 2 puff INHALATION RT-Q6H PRN 09/26/16 01/04/17 Inhaler] Flunisolide [Aerospan] 1 puff INHALATION RT-BID 09/26/16 01/04/17 amLODIPine [Norvasc] 10 mg PO DAILY 09/26/16 01/04/17 Nicotine [Nicoderm Cq] 1 patch TRANSDERM DAILY 12/20/16 01/04/17 Previous Rx's Medication Instructions Recorded Aspirin 325 mg PO BID #60 tab 12/29/16 Diazepam [Valium] 5 mg PO BID #14 tab 12/29/16 HYDROcodone/APAP 10-325MG [[place] 1 - 2 tab PO Q4-6H PRN #90 tab 12/29/16 10-325] Sennosides-Docusate Sodium 1 tab PO BID #60 tablet 12/29/16 [Senokot-S] Hydrocodone/Acetaminophen [[place] 1 each PO Q4HR PRN #12 tablet 01/04/17 10-325 Tablet] Allergies Allergy/AdvReac Type Severity Reaction Status Date / Time amoxicillin trihydrate Allergy Rapid Verified 01/04/17 17:40 [From Augmentin] Heart Rate potassium clavulanate Allergy FELT LIKE Verified 01/04/17 17:40 [From Augmentin] HE WAS GOING TO PASS OUT FAST HEARTBEAT" pregabalin [From Lyrica] AdvReac Swelling Verified 01/04/17 17:40 Review of Systems ROS Statement: Those systems with pertinent positive or pertinent negative responses have been documented in the HPI. ROS Other: All systems not noted in ROS Statement are negative. Past Medical History Past Medical History: Coronary Artery Disease (CAD), COPD, Eye Disorder, Fibromyalgia, GERD/Reflux, Hypertension, Myocardial Infarction (ID), Prostate Disorder Additional Past Medical History / Comment(s): hx of chronic pancreatitis, shingles- apr 2013-"causes pain in joints",neuopathy, glaucoma, "wart on top lt foot", varicose veins, poor circulation in legs, chronic cough Last Myocardial Infarction Date:: 09/02/16 History of Any Multi-Drug Resistant Organisms: None Reported Past Surgical History: Appendectomy, Orthopedic Surgery, Prostate Surgery Additional Past Surgical History / Comment(s): arthroscopic surgery right knee for torn cartiladge, TURP Past Anesthesia/Blood Transfusion Reactions: No Reported Reaction Past Psychological History: Anxiety, Depression Additional Psychological History / Comment(s): . Smoking Status: Current some day smoker Past Alcohol Use History: Rare Additional Past Alcohol Use History / Comment(s): started smoking at age 13 (40 yrs), quit smoking 10/2016 Past Drug Use History: None Reported - Past Family History Father Additional Family Medical History / Comment(s): Father is - he at age 38yrs from HTN-CVA Mother Family Medical History: No Reported History Additional Family Medical History / Comment(s): . General Exam - General Exam Comments Initial Comments: General: The patient is awake and alert, in no distress, and does not appear acutely ill. Skin: Skin is warm and dry and no rashes or lesions are noted. Eye: Pupils are equal, round and reactive to light, extra-ocular movements are intact; there is normal conjunctiva bilaterally. Ears, nose, mouth and throat: There are moist mucous membranes and no oral lesions. Neck: The neck is supple, there is no tenderness or JVD. Cardiovascular: There is a regular rate and rhythm. No murmur, rub or gallop is appreciated. Respiratory: To auscultation bilateral, no wheezing no rhonchi no distress respiratory long noticed Gastrointestinal: Soft, non-distended, non-tender abdomen without masses or organomegaly noted. There is no rebound or guarding present. Bowel sounds are unremarkable. Back: There is no tenderness to palpation in the midline. There is no obvious deformity. Musculoskeletal: He is able to move his leg on the right side knee joint, noticed some bruising and some swelling no obvious signs of any cellulitis Neurological: CN II-XII intact, Cranial nerves III through XII are intact. There are no obvious motor or sensory deficits. Coordination appears grossly intact. Speech is normal. Psychiatric: Cooperative, appropriate mood & affect, normal judgment. Limitations: no limitations Course Vital Signs 01/04/17 01/04/17 01/04/17 16:51 18:07 18:28 Temperature 98.3 F Pulse Rate 92 80 90 Respiratory 20 16 16 Rate Blood Pressure 139/79 147/87 136/93 O2 Sat by Pulse 99 97 98 Oximetry 01/04/17 18:57 Temperature Pulse Rate 91 Respiratory 18 Rate Blood Pressure 132/70 O2 Sat by Pulse 93 L Oximetry - Reevaluation(s) Reevaluation #1: 01/04/17 19:04 Patient was reassessed at 1900, he had ultrasound of the leg done earlier it was reviewed is negative, CBC, comprehensive metabolic panel, x-ray of the knee showed the joint in anatomical position but I did notice some swelling around the knee advised him not to ambulate more than twice and he is advised to see Dr. Mckeon tomorrow morning him a he agreed to Medical Decision Making - Lab Data Result diagrams: 01/04/17 18:02 01/04/17 18:02 Lab Results 01/04/17 01/04/17 Range/Units 18:02 18:02 WBC 7.8 (3.8-10.6) k/uL RBC 3.49 L (4.30-5.90) m/uL Hgb 11.0 L (13.0-17.5) gm/dL Hct 32.8 L (39.0-53.0) % MCV 94.1 (80.0-100.0) fL MCH 31.5 (25.0-35.0) pg MCHC 33.5 (31.0-37.0) g/dL RDW 14.4 (11.5-15.5) % Plt Count 422 (150-450) k/uL Neutrophils % 69 % Lymphocytes % 18 % Monocytes % 7 % Eosinophils % 3 % Basophils % 1 % Neutrophils # 5.4 (1.3-7.7) k/uL Lymphocytes # 1.4 (1.0-4.8) k/uL Monocytes # 0.5 (0-1.0) k/uL Eosinophils # 0.2 (0-0.7) k/uL Basophils # 0.1 (0-0.2) k/uL Sodium 139 (137-145) mmol/L Potassium 4.6 (3.5-5.1) mmol/L Chloride 107 (98-107) mmol/L Carbon Dioxide 23 (22-30) mmol/L Anion Gap 9 mmol/L BUN 14 (9-20) mg/dL Creatinine 0.75 (0.66-1.25) mg/dL Est GFR (MDRD) Af Amer >60 (>60 ml/min/1.73 sqM) Est GFR (MDRD) Non-Af >60 (>60 ml/min/1.73 sqM) Glucose 117 H (74-99) mg/dL Calcium 9.1 (8.4-10.2) mg/dL Total Bilirubin 0.7 (0.2-1.3) mg/dL AST 54 (17-59) U/L ALT 86 H (21-72) U/L Alkaline Phosphatase 198 H (38-126) U/L Total Protein 6.4 (6.3-8.2) g/dL Albumin 3.5 (3.5-5.0) g/dL Disposition Clinical Impression: Right leg pain Disposition: HOME SELF-CARE Condition: Fair Instructions: Knee Pain (ED) Prescriptions: Hydrocodone/Acetaminophen [[place] 10-325 Tablet] 1 each PO Q4HR PRN #12 tablet PRN Reason: Pain Referrals: Albert Chavez MD [Primary Care Provider] - 1-2 days
[2017-01-04] MEDS ORDERED: HYDROmorphone 1 MG/ML 1 ML SYRINGE IM STA ×2 (17:42→19:06)
[2017-01-04] MEDS ORDERED: ONDANSETRON ODT 4 MG TAB PO STA (17:43)
[2017-01-04] MEDS ORDERED: diphenhydrAMINE 50 MG/ML 1 ML VIAL IVP STA (18:22)
[2017-01-04 18:23] LABS: Basophils # (A) 0.1 k/uL (0-0.2); Basophils % (A) 1 %; CH 31.4; CHCM 33.5; Eosinophils # (A) 0.2 k/uL (0-0.7); Eosinophils % (A) 3 %; HCT 32.8 % (39.0-53.0); HDW 2.66; Luc # (Auto) 0.22; Luc % (Auto) 3; Lymphocytes # (A) 1.4 k/uL (1.0-4.8); Lymphocytes % (A) 18 %; MCH 31.5 pg (25.0-35.0); MCHC 33.5 g/dL (31.0-37.0); MCV 94.1 fL (80.0-100.0); Mean Platelet Volume 6.6; Monocytes # (A) 0.5 k/uL (0-1.0); Monocytes % (A) 7 %; Neutrophils # (A) 5.4 k/uL (1.3-7.7); Neutrophils % (A) 69 %; RBC 3.49 m/uL (4.30-5.90); RDW 14.4 % (11.5-15.5); WBC 7.8 k/uL (3.8-10.6); WBC (Perox) 8.36
[2017-01-04 18:28] LABS: ALT 86 U/L (21-72); AST 54 U/L (17-59); Alkaline Phosphatase 198 U/L (38-126); Anion Gap 9 mmol/L; Blood Urea Nitrogen 14 mg/dL (9-20); Calcium 9.1 mg/dL (8.4-10.2); Carbon Dioxide 23 mmol/L (22-30); Chloride 107 mmol/L (98-107); Glucose 117 mg/dL (74-99); Non-African American GFR(MDRD) >60 (>60 ml/min/1.73 sqM); Potassium 4.6 mmol/L (3.5-5.1); Sodium 139 mmol/L (137-145); Total Bilirubin 0.7 mg/dL (0.2-1.3); Total Protein 6.4 g/dL (6.3-8.2)
--- NOTE | 2017-01-04 18:31 | XR ---
EXAMINATION TYPE: XR knee complete RT DATE OF EXAM: 01/04/2017 5:52 PM COMPARISON: 12/26/2016 HISTORY: Swelling and pain TECHNIQUE: 3 views FINDINGS: There is a right knee prosthesis. Components are in anatomic position. There is soft tissue swelling around the knee joint. IMPRESSION: There is soft tissue swelling that is increased compared to last exam. No fracture.
[2017-01-04 18:58] VITALS: RESP 18
[2017-01-04 19:36] VITALS: BP 151/90; PULSE 92; TEMP 98
== END 2017-01-04 19:35 | disposition home or self-care (01) ==
LOC: EC 16:24
DX: S80.11XA Contusion of right lower leg, initial encounter (principal); I10 Essential (primary) hypertension; K21.9 Gastro-esophageal reflux disease without esophagitis; I25.10 Atherosclerotic heart disease of native coronary artery without angina pectoris; I25.2 Old myocardial infarction; F32.9 Major depressive disorder, single episode, unspecified; F41.9 Anxiety disorder, unspecified; Z87.891 Personal history of nicotine dependence; Z79.899 Other long term (current) drug therapy; Z88.0 Allergy status to penicillin; Z88.8 Allergy status to other drugs, medicaments and biological substances; Z98.890 Other specified postprocedural states; X58.XXXA Exposure to other specified factors, initial encounter
CPT/HCPCS: 36415; 80053; 85025; 73562; 99283; 96374; 96372 ×2; J1200; J1170

== ENCOUNTER → 2017-01-04 | Outpatient (CLI) | payer OTHER ==
--- NOTE | 2017-01-04 16:38 | US ---
EXAMINATION TYPE: US venous doppler duplex LE RT DATE OF EXAM: 01/04/2017 4:05 PM COMPARISON: Previous study dated 12/28/2016. CLINICAL HISTORY: M25.561 Pain in Rt Knee, R22.41 Localized swelling. Right knee replacement 12/26/16, pain and edema right lower leg SIDE PERFORMED: right TECHNIQUE: The lower extremity deep venous system is examined utilizing real time linear array sonog miguel a with graded compression, doppler sonography and color-flow sonography. VESSELS IMAGED: External Iliac Vein (EIV) Common Femoral Vein Deep Femoral Vein Greater Saphenous Vein * Femoral Vein Popliteal Vein Small Saphenous Vein * Proximal Calf Veins (* superficial vessels) Right Leg: No evidence of DVT. Anechoic area noted right popliteal fossa = 6.5cm, possible Joseph's c yst vs. Other etiology. Soft tissue edema noted right lower leg IMPRESSION: 1. THIS EXAMINATION IS NEGATIVE FOR DVT WITHIN THE RIGHT LEG. 2. THIS EXAMINATION IS POSITIVE FOR POPLITEAL FOSSA CYST ON THE RIGHT.
== END | disposition home or self-care (01) ==
LOC: RADUSMAIN 15:39
PROVIDERS: ATTEND Orthopaedic Surgery
DX: M71.21 Synovial cyst of popliteal space [Baker], right knee (principal); M17.11 Unilateral primary osteoarthritis, right knee; R22.41 Localized swelling, mass and lump, right lower limb; M21.161 Varus deformity, not elsewhere classified, right knee

== ENCOUNTER 2017-01-30 09:14 | Emergency (ER) | payer OTHER ==
[2017-01-30 09:23] VITALS: BP 173/88; PULSE 101; RESP 22; TEMP 97.7
--- NOTE | 2017-01-30 09:43 | ED ---
Lower Extremity Injury HPI - General Chief Complaint: Extremity Injury, Lower Stated Complaint: Knee Pain Time Seen by Provider: 01/30/17 09:22 Source: patient, RN notes reviewed Mode of arrival: wheelchair Limitations: no limitations - History of Present Illness Initial Comments: 56-year-old male presents emergency Department with chief complaint of right knee pain. Patient had surgery one month ago. Patient states that he is out of his pain medications and needs more pain meds. Patient did have multiple prescriptions filled and states he takes 6 a day and which he has had a total of 5-1/2 tablets per day for her ears prescriptions. Patient states he has no appointment next week with away. Patient denies any new injuries no increased redness, swelling. Patient has not chronic pain meds secondary to multiple reasons he used to be on Percocet states in the Sublimity does not help as much as his Percocet use to. - Related Data Home Medications Medication Instructions Recorded Confirmed Cyclobenzaprine [Flexeril] 10 mg PO DAILY PRN 06/28/16 01/04/17 Gabapentin [Neurontin] 300 mg PO TID 06/28/16 01/04/17 Latanoprost Ophth [Xalatan 0.005%] 1 drops BOTH EYES HS 06/28/16 01/04/17 Lisinopril [Zestril] 20 mg PO DAILY 06/28/16 01/04/17 rOPINIRole HCL [Requip] 1 mg PO HS 06/28/16 01/04/17 Omeprazole [PriLOSEC] 20 mg PO QAM 07/19/16 01/04/17 Albuterol Inhaler [Ventolin Hfa 2 puff INHALATION RT-Q6H PRN 09/26/16 01/04/17 Inhaler] Flunisolide [Aerospan] 1 puff INHALATION RT-BID 09/26/16 01/04/17 amLODIPine [Norvasc] 10 mg PO DAILY 09/26/16 01/04/17 Nicotine [Nicoderm Cq] 1 patch TRANSDERM DAILY 12/20/16 01/04/17 Previous Rx's Medication Instructions Recorded Aspirin 325 mg PO BID #60 tab 12/29/16 Diazepam [Valium] 5 mg PO BID #14 tab 12/29/16 HYDROcodone/APAP 10-325MG [Sublimity 1 - 2 tab PO Q4-6H PRN #90 tab 12/29/16 10-325] Sennosides-Docusate Sodium 1 tab PO BID #60 tablet 12/29/16 [Senokot-S] Hydrocodone/Acetaminophen [Sublimity 1 each PO Q4HR PRN #12 tablet 01/04/17 10-325 Tablet] HYDROcodone/APAP 10-325MG [Sublimity 1 tab PO Q6H PRN #20 tab 01/30/17 10-325] Allergies Allergy/AdvReac Type Severity Reaction Status Date / Time amoxicillin trihydrate Allergy Rapid Verified 01/04/17 17:40 [From Augmentin] Heart Rate potassium clavulanate Allergy FELT LIKE Verified 01/04/17 17:40 [From Augmentin] HE WAS GOING TO PASS OUT FAST HEARTBEAT" pregabalin [From Lyrica] AdvReac Swelling Verified 01/04/17 17:40 Review of Systems ROS Statement: Those systems with pertinent positive or pertinent negative responses have been documented in the HPI. ROS Other: All systems not noted in ROS Statement are negative. Past Medical History Past Medical History: Coronary Artery Disease (CAD), COPD, Eye Disorder, Fibromyalgia, GERD/Reflux, Hypertension, Myocardial Infarction ([place]), Prostate Disorder Additional Past Medical History / Comment(s): hx of chronic pancreatitis, shingles- apr 2013-"causes pain in joints",neuopathy, glaucoma, "wart on top lt foot", varicose veins, poor circulation in legs, chronic cough Last Myocardial Infarction Date:: 09/02/16 History of Any Multi-Drug Resistant Organisms: None Reported Past Surgical History: Appendectomy, Orthopedic Surgery, Prostate Surgery Additional Past Surgical History / Comment(s): arthroscopic surgery right knee for torn cartiladge, TURP Past Anesthesia/Blood Transfusion Reactions: No Reported Reaction Past Psychological History: Anxiety, Depression Smoking Status: Current some day smoker Past Alcohol Use History: Rare Past Drug Use History: None Reported - Past Family History Father Additional Family Medical History / Comment(s): Father is - he at age 38yrs from HTN-CVA Mother Family Medical History: No Reported History Additional Family Medical History / Comment(s): . General Exam Limitations: no limitations General appearance: alert, in no apparent distress Respiratory exam: Present: normal lung sounds bilaterally. Absent: respiratory distress, wheezes, rales, rhonchi, stridor Cardiovascular Exam: Present: regular rate, normal rhythm, normal heart sounds. Absent: systolic murmur, diastolic murmur, rubs, gallop, clicks Extremities exam: Present: other (Right knee there is moderate swelling no warmth or erythema noted incisions well-healed patient has good range of motion. Pulses equal bilaterally there is no calf tenderness) Course Vital Signs 01/30/17 09:20 Temperature 97.7 F Pulse Rate 101 H Respiratory 22 Rate Blood Pressure 173/88 O2 Sat by Pulse 97 Oximetry Medical Decision Making - Medical Decision Making 56-year-old male presented for right knee pain. Patient chronic pain problems. Patient has been taken his prescriptions as directed as a sudden one to 2 tablets every 4 hours. Patient states his out. I did inform him that he will receive short supply pain medication that he needs to follow up with somebody for further pain meds that emergency department is not place for chronic pain meds. Disposition Clinical Impression: Right knee pain, Chronic pain Disposition: HOME SELF-CARE Condition: Stable Instructions: Knee Pain (ED) Additional Instructions: Follow-up with your PCP or orthopedics for further pain medications.Please return to the Emergency Department if symptoms worsen or any other concerns. Prescriptions: HYDROcodone/APAP 10-325MG [Sublimity 10-325] 1 tab PO Q6H PRN #20 tab PRN Reason: pain Referrals: Albert Chavez MD [Primary Care Provider] - 1-2 days Time of Disposition: 09:43
== END 2017-01-30 10:08 | disposition home or self-care (01) ==
LOC: EC 09:14
DX: G89.29 Other chronic pain (principal); M25.561 Pain in right knee; M79.89 Other specified soft tissue disorders; I10 Essential (primary) hypertension; I25.10 Atherosclerotic heart disease of native coronary artery without angina pectoris; K21.9 Gastro-esophageal reflux disease without esophagitis; H57.9 Unspecified disorder of eye and adnexa; I25.2 Old myocardial infarction; F17.200 Nicotine dependence, unspecified, uncomplicated; Z79.51 Long term (current) use of inhaled steroids; Z79.899 Other long term (current) drug therapy; Z88.0 Allergy status to penicillin; Z88.8 Allergy status to other drugs, medicaments and biological substances; Z86.69 Personal history of other diseases of the nervous system and sense organs; Z98.890 Other specified postprocedural states
CPT/HCPCS: 99283

== ENCOUNTER 2018-01-16 12:11 | Day surgery (SDC) | payer OTHER ==
[2018-01-12 11:16] VITALS: BMI 32.5
[~2018-01-16 12:11] MED LIST changes: -ACETAMINOPHEN TAB 500 MG TAB PO ONE; -DEXAMETHASONE SOD PHOSPHATE 10 MG/ML 1 ML VIAL IV ONE; -HYDROmorphone 1 MG/ML 1 ML SYRINGE IVP PRN; +LACTATED RINGERS 1,000 ML IV SCH; -MELOXICAM 7.5 MG TAB PO ONE; -MIDAZOLAM 2 MG/2 ML VIAL IV PRN; -ONDANSETRON 4 MG/2 ML VIAL IVP ONE; -SCOPOLAMINE 1.5MG/72HR PATCH TRANSDERM ONE; -TRANEXAMIC ACID 1,000 MG in SODIUM CHLORIDE 0.9% 100 ML IVPB ONE
[2018-01-16 12:39] VITALS: RESP 16
[2018-01-16] MEDS ORDERED: PROPOFOL 10 MG/ML 20 ML VIAL IV ONE (13:08)
[2018-01-16] MEDS ORDERED: LIDOCAINE 1% INJ 10MG/ML (20 ML MDV) ONE (13:08)
--- NOTE | 2018-01-16 14:09 | P.PCN ---
Date of Procedure: 01/16/18 Procedure(s) Performed: Procedure: Colonoscopy and biopsy. Preoperative diagnosis: Chronic diarrhea. Postoperative diagnosis: 1. Nonspecific colitis. 2. Multiple biopsies obtained from the terminal ileum, random colon and rectum. Preparation: HalfLytely prep. Sedation: Was provided by anesthesia. Brief clinical history: The patient is a 57-year-old male who was evaluated in the office regarding diarrhea off around 2 months duration. He reported passing 3-4 loose urgent bowel movements daily no rectal bleeding. He had no prior colonoscopy. There is history of chronic alcohol related pancreatitis. Procedure: With the patient on his left lateral decubitus position and after informed consent and adequate sedation, the perianal area was inspected and it did not show any fissures or fistulas. There were no masses felt on digital rectal examination. The Olympus CFQ 160L video colonoscope was then inserted in the rectum in the usual fashion and advanced to the cecum. I intubated the ileocecal valve and examined a short distance of terminal ileum. There was erythema and nonspecific mucosal changes in the colon and rectum with areas of friability and submucosal hemorrhage but no erosions, ulcers or spontaneous bleeding. The terminal ileum did not show any obvious abnormalities. I obtained biopsies from the terminal ileum, random colon and rectum before the endoscope was withdrawn. No polyps or tumors were seen or any spontaneous bleeding. The patient tolerated the procedure well. Plan: The patient was reassured. Will await biopsy results. He will follow up in the office as planned and further plans can be made based on his course and biopsy results.
[2018-01-16 14:28] VITALS: BP 115/75; PULSE 81
== END 2018-01-16 15:25 | disposition home or self-care (01) ==
LOC: ORWHC2ENDO 12:11
DX: K52.9 Noninfective gastroenteritis and colitis, unspecified (principal); K86.0 Alcohol-induced chronic pancreatitis; I25.10 Atherosclerotic heart disease of native coronary artery without angina pectoris; I10 Essential (primary) hypertension; J44.9 Chronic obstructive pulmonary disease, unspecified; M79.7 Fibromyalgia; N40.0 Benign prostatic hyperplasia without lower urinary tract symptoms; I73.9 Peripheral vascular disease, unspecified; I25.2 Old myocardial infarction; Z72.0 Tobacco use; H40.9 Unspecified glaucoma; Z79.82 Long term (current) use of aspirin; Z79.1 Long term (current) use of non-steroidal anti-inflammatories (NSAID); Z79.51 Long term (current) use of inhaled steroids; Z79.899 Other long term (current) drug therapy; Z88.0 Allergy status to penicillin; Z88.8 Allergy status to other drugs, medicaments and biological substances
CPT/HCPCS: 88305; 45380; J2001; J2704

== ENCOUNTER → 2018-02-03 | Outpatient (CLI) | payer OTHER ==
--- NOTE | 2018-02-03 10:09 | MR ---
EXAMINATION TYPE: MR lumbar spine wo con DATE OF EXAM: 02/03/2018 COMPARISON: Correlation CT 11/29/2016 HISTORY: 57-year-old male LBP x several years TECHNIQUE: Multiplanar, multisequence images of the lumbar spine were acquired. 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 Moderate multilevel degenerative disc disease is present with desiccated and bulging discs. Moderate disc space narrowing at L3-L4. Hypertrophic facet arthropathy mid to lower lumbar spine. Grade 1 retrolisthesis at both L3-L4 and L4-L5. Focal kyphotic deformity at L2-L3 where there is prominent fatty Modic type II endplate change and pa rtial anterior interbody ankylosis which appears to have progressed from 11/29/2016. Additional scattered Modic type II fatty endplate changes present at L3-L4 and L4-L5. Conus medullaris is normal. An T12-L1, the spinal canal or foraminal stenosis. At L1-L2, prominent dorsal epidural fat and a mild disc bulge with facet arthropathy. No significant canal or foraminal stenosis. At the partially fused L2-L3 level, focal kyphosis with facet arthropathy. No significant spinal ariella l stenosis. There is mild left sided neural foraminal narrowing. At L3-L4, grade 1 retrolisthesis with hypertrophic facet arthropathy, prominent dorsal epidural fat, ligamentum flavum thickening, and bulging disc. Changes result in moderate spinal canal stenosis with mild left and moderate right neuroforaminal stenosis. At L4-L5, bulging disc with facet arthropathy and grade 1 retrolisthesis. There is mild narrowing of the spinal canal with moderate right and mild left foraminal stenosis. At L5-S1, disc bulge with hypertrophic facet arthropathy and ligamentum flavum thickening. There is m ild left neuroforaminal stenosis without significant spinal canal stenosis. IMPRESSION: 1. Moderate multilevel degenerative disc disease especially in the mid to lower lumbar spine along wi th hypertrophic facet arthropathy. 2. Changes result in grade 1 retrolisthesis at L3-L4 and L4-L5. In addition, advanced degenerative di sc disease at L2-L3 results in mild kyphotic deformity and a degenerative partial interbody ankylosis , progressed from 11/29/2016. 3. At L3-L4, there is moderate spinal canal stenosis with moderate right and mild left neuroforaminal stenosis. 4. At L4-L5, there is mild spinal canal stenosis with moderate right and mild left neuroforaminal garry nosis. 5. Mild left neural foraminal stenosis at both L2-L3 and L5-S1. 6. Mild aneurysm of the abdominal aorta (3.1 cm) increased from 2.9 cm on 11/29/2016.
== END | disposition home or self-care (01) ==
LOC: RADMRIMAIN 08:58
PROVIDERS: ATTEND Psychiatry & Neurology Neurology
DX: M48.061 Spinal stenosis, lumbar region without neurogenic claudication (principal); M99.73 Connective tissue and disc stenosis of intervertebral foramina of lumbar region; M51.36 Other intervertebral disc degeneration, lumbar region; M43.16 Spondylolisthesis, lumbar region; M43.26 Fusion of spine, lumbar region; M46.96 Unspecified inflammatory spondylopathy, lumbar region; Z88.0 Allergy status to penicillin; Z88.8 Allergy status to other drugs, medicaments and biological substances
CPT/HCPCS: 72148

== ENCOUNTER → 2018-05-23 | Outpatient (CLI) | payer OTHER ==
--- NOTE | 2018-05-24 06:48 | CT ---
EXAMINATION TYPE: CT brain wo con DATE OF EXAM: 05/23/2018 HISTORY: Daily headaches, worse to left side of head CT DLP: 1147 mGycm. Automated Exposure Control for Dose Reduction was Utilized. TECHNIQUE: CT scan of the head is performed without contrast. COMPARISON: CT brain December 28, 2015. FINDINGS: There is no acute intracranial hemorrhage or midline shift identified. There is diffuse v entricular and sulcal prominence consistent with diffuse age-related cerebral atrophy. Booker-white mat ter differentiation is fairly well-maintained. Some patchy density left external auditory canal is fe lt to reflect cerumen. Nasal septum is deviated to right of midline. There is small air-fluid level i n the left maxillary sinus inferiorly near axial image 7. Remainder paranasal sinuses are clear. The globes are intact bilaterally. IMPRESSION: No acute intracranial hemorrhage or midline shift. There is mild to moderate diffuse ag e-related cerebral atrophy redemonstrated. Acute left maxillary sinus disease is noted on current st udy.
== END | disposition home or self-care (01) ==
LOC: RADCTMAIN 18:12
PROVIDERS: ATTEND Pediatrics
DX: G31.1 Senile degeneration of brain, not elsewhere classified (principal); J32.0 Chronic maxillary sinusitis
CPT/HCPCS: 70450

== ENCOUNTER 2018-09-14 09:02 | Day surgery (SDC) | payer OTHER ==
[2018-09-12 15:58] VITALS: BMI 31.6
[~2018-09-14 09:02] MED LIST changes: +LIDOCAINE 1% 20 ML VIAL (10MG/ML) FOR IV START INTRADERMA PRN
[2018-09-14 09:22] VITALS: RESP 16; TEMP 98
[2018-09-14] MEDS ORDERED: PROPOFOL 10 MG/ML 20 ML VIAL IV ONE (09:40)
[2018-09-14] MEDS ORDERED: MIDAZOLAM 2 MG/2 ML VIAL ONE (09:40)
[2018-09-14] MEDS ORDERED: fentaNYL (PF) 50 MCG/ML 2 ML AMP ONE (09:40)
--- NOTE | 2018-09-14 09:55 | P.PCN ---
Date of Procedure: 09/14/18 Procedure(s) Performed: BRIEF HISTORY: Patient is a 58-year-old, pleasant, male, scheduled for an upper endoscopy as part of value should of long-standing history of GERD and Alvarenga' s esophagus.. PROCEDURE PERFORMED: Esophagogastroduodenoscopy with biopsy. PREOPERATIVE DIAGNOSIS: GERD/Alvarenga's esophagus. IV sedation per anesthesia. PROCEDURE: After informed consent was obtained, the patient was brought into the endoscopy unit. IV sedation was administered by Anesthesia under continuous monitoring. Initially the Olympus GIF-140 video endoscope was inserted into the mouth. Esophagus intubated without any difficulty. It was gradually advanced into the stomach and duodenum and carefully examined. The bulb and the second part of the duodenum appeared normal. The scope at this time was withdrawn to the stomach, adequately insufflated with air, and upon careful examination, mucosa of the antrum had mild gastritis and biopsies were done from this area. The, body, cardia and the fundus appeared normal. The scope was then withdrawn into the esophagus. The GE junction was located at 43 cm from the incisors. There was a short segment of Alvarenga's esophagus extending 5mm proximal to the GE junction which was biopsied. The rest of the esophagus appeared normal. There were no erosions or ulcerations seen and the patient tolerated the procedure well. IMPRESSION: 1. Short segment Alvarenga's esophagus status post biopsy. 2. Mild antral gastritis. RECOMMENDATIONS: The findings of this examination were discussed with the patient as well as her family. He was advised to follow with the biopsy results. If the biopsy has no dysplasia he can have a repeat upper endoscopy in 2-3 years
[2018-09-14 10:16] VITALS: BP 146/87; PULSE 75
== END 2018-09-14 10:35 | disposition home or self-care (01) ==
LOC: ORWHC2ENDO 09:02
PROVIDERS: ATTEND Internal Medicine Gastroenterology
DX: K29.50 Unspecified chronic gastritis without bleeding (principal); K22.8 Other specified diseases of esophagus; K22.70 Barrett's esophagus without dysplasia; K21.9 Gastro-esophageal reflux disease without esophagitis; I25.10 Atherosclerotic heart disease of native coronary artery without angina pectoris; I10 Essential (primary) hypertension; E78.5 Hyperlipidemia, unspecified; G25.81 Restless legs syndrome; M79.7 Fibromyalgia; I25.2 Old myocardial infarction; F17.200 Nicotine dependence, unspecified, uncomplicated; Z79.82 Long term (current) use of aspirin; Z79.891 Long term (current) use of opiate analgesic; Z79.51 Long term (current) use of inhaled steroids; Z79.899 Other long term (current) drug therapy; Z88.0 Allergy status to penicillin; Z88.8 Allergy status to other drugs, medicaments and biological substances
CPT/HCPCS: 88305; 88312; 43239; J2250; J3010; J2704

== ENCOUNTER → 2019-01-16 | Outpatient (CLI) | payer OTHER ==
[2019-01-16 13:37] LABS: Blood Urea Nitrogen 16 mg/dL (9-20)
--- NOTE | 2019-01-16 14:27 | CT ---
EXAMINATION TYPE: CT angio chest DATE OF EXAM: 01/16/2019 COMPARISON: NONE HISTORY: thoracic aneurysm CT DLP: 1203.5 mGycm. Automated Exposure Control for Dose Reduction was Utilized. CONTRAST: CTA scan of the thorax is performed without and with IV Contrast, patient injected with 100 mL of Iso nicki 370, pulmonary embolism protocol. Three-D reconstructed images are created on independent worksta tion and reviewed. FINDINGS: LUNGS: The lungs are grossly clear, there is no concerning parenchymal mass or nodule identified. T here is no pleural effusion or pneumothorax seen. The tracheobronchial tree is patent. MEDIASTINUM: There is satisfactory enhancement of the central pulmonary artery without pulmonary embo lism. Main pulmonary artery measures 2.7 cm at bifurcation axial image 31. Adjacent ascending aorta m easures up to 3.5 cm in diameter on same image. There is mild peripheral plaque in aortic arch. Mervat l three-vessel origin is seen without significant stenosis. There is mild to moderate mixed plaque in the descending thoracic aorta without aneurysmal change. No linear hypodensity to suggest dissection is present. There are no greater than 1 cm hilar or mediastinal lymph nodes. No cardiomegaly or pe ricardial effusion is seen. OTHER: Some disc space narrowing and ossific fusion anterior L2-L3 level is present. IMPRESSION: Borderline mild aneurysmal change ascending aorta up to 3.5 cm.
== END | disposition home or self-care (01) ==
LOC: RADCTMAIN 13:03
PROVIDERS: ATTEND Internal Medicine Cardiovascular Disease
DX: I71.2 Thoracic aortic aneurysm, without rupture (principal)
CPT/HCPCS: 82565; 84520; 71275; 36415; Q9967

== ENCOUNTER 2019-05-20 04:24 | Observation (INO) | payer OTHER ==
[2019-05-20] MEDS ORDERED: SODIUM CHLORIDE 0.9% 1,000 ML IV ONE (05:08)
--- NOTE | 2019-05-20 05:09 | ED ---
Extremity Problem HPI - General Chief complaint: Extremity Problem,Nontraumatic Stated complaint: Swollen foot Time Seen by Provider: 05/20/19 04:41 Source: patient Mode of arrival: wheelchair Limitations: no limitations - History of Present Illness Initial comments: This patient is 58-year-old man who presents to be evaluated for right leg swelling, rash, and fever. Patient states that this is been coming on for probably a little over 24 hours now. Patient denies history of similar. He denies other symptoms of infection, including no congestion or sore throat, coughing, sputum or chest pain, abdominal pain and nausea, vomiting or diarrhea, dysuria. MD Complaint: extremity pain, extremity swelling Onset/Timin -: days(s) Location: right, lower extremity History of Same: No -: Yes fever Radiation: none Quality: burning, aching Consistency: constant Improves with: nothing Worsens with: nothing Associated Symptoms: fever - Related Data Home Medications Medication Instructions Recorded Confirmed Cyclobenzaprine [Flexeril] 10 mg PO DAILY PRN 06/28/16 05/20/19 Lisinopril [Zestril] 20 mg PO DAILY 06/28/16 05/20/19 rOPINIRole HCL [Requip] 1 mg PO BID PRN 06/28/16 05/20/19 Albuterol Inhaler [Ventolin Hfa 2 puff INHALATION RT-Q6H PRN 09/26/16 05/20/19 Inhaler] amLODIPine [Norvasc] 10 mg PO DAILY 09/26/16 05/20/19 Tamsulosin [Flomax] 0.4 mg PO DAILY PRN 06/20/17 05/20/19 Aspirin 81 mg PO DAILY 09/18/17 05/20/19 Gabapentin [Neurontin] 800 mg PO TID 09/18/17 05/20/19 Nicotine 21Mg/24Hr Patch [Habitrol 1 patch TRANSDERM DAILY 09/18/17 05/20/19 21Mg/24Hr Patch] Vitamin B Complex 1 cap PO DAILY 09/18/17 05/20/19 Etodolac [Lodine] 400 mg PO BID 01/12/18 05/20/19 Montelukast [Singulair] 10 mg PO DAILY 01/12/18 05/20/19 Omeprazole [PriLOSEC] 20 mg PO AC-BRKFST 09/12/18 05/20/19 Salmeterol Xinafoate [Serevent 1 puff INHALATION RT-BID 09/12/18 05/20/19 Diskus] oxyCODONE-APAP 10-325MG [Percocet 1 tab PO TID 09/12/18 05/20/19 10-325 mg] Beclomethasone Dip 80 Mcg/Puff 2 puff INHALATION RT-BID 05/20/19 05/20/19 [Qvar 80 mcg] Latanoprost/Pf [Latanoprost 0.005% 1 drop BOTH EYES HS 05/20/19 05/20/19 Eye Drop] Loratadine [Claritin] 10 mg PO DAILY 05/20/19 05/20/19 Allergies Allergy/AdvReac Type Severity Reaction Status Date / Time amoxicillin trihydrate AdvReac Rapid Verified 05/20/19 07:06 [From Augmentin] Heart Rate potassium clavulanate AdvReac FELT LIKE Verified 05/20/19 07:06 [From Augmentin] HE WAS GOING TO PASS OUT FAST HEARTBEAT" pregabalin [From Lyrica] AdvReac Swelling Verified 05/20/19 07:06 Review of Systems ROS Statement: Those systems with pertinent positive or pertinent negative responses have been documented in the HPI. ROS Other: All systems not noted in ROS Statement are negative. Constitutional: Reports: fever, chills. Denies: weakness Respiratory: Denies: cough, dyspnea Cardiovascular: Denies: chest pain, palpitations, orthopnea, syncope Gastrointestinal: Denies: abdominal pain, nausea, vomiting, diarrhea Genitourinary: Denies: dysuria, hematuria Musculoskeletal: Denies: back pain Skin: Reports: rash, change in color. Denies: lesions Neurological: Denies: headache, weakness, numbness, paresthesias Past Medical History Past Medical History: Coronary Artery Disease (CAD), COPD, Eye Disorder, Fibromyalgia, Hypertension, Myocardial Infarction ([place]), Prostate Disorder, Vascular Disorder Additional Past Medical History / Comment(s): MID EPIGASTRIC PAIN OFF AND ON 2 YEARS, colitis, past. hx of chronic pancreatitis, shingles- apr 2013-"causes pain in joints",neuropathy, glaucoma, varicose veins, poor circulation in legs, chronic cough Last Myocardial Infarction Date:: 09/02/16 History of Any Multi-Drug Resistant Organisms: None Reported Past Surgical History: Appendectomy, Heart Catheterization, Joint Replacement, Orthopedic Surgery, Prostate Surgery Additional Past Surgical History / Comment(s): arthroscopic surgery right knee for torn cartilage, TURP, EGD, RT TKA, colonoscopy Past Anesthesia/Blood Transfusion Reactions: No Reported Reaction Past Psychological History: Anxiety, Depression Smoking Status: Current some day smoker Past Alcohol Use History: Occasional Past Drug Use History: None Reported - Past Family History Father Additional Family Medical History / Comment(s): Father is - he at age 38yrs from HTN-CVA Mother Family Medical History: No Reported History Additional Family Medical History / Comment(s): . General Exam Limitations: no limitations General appearance: alert, in no apparent distress Head exam: Present: atraumatic, normocephalic Eye exam: Present: normal appearance. Absent: scleral icterus, conjunctival injection ENT exam: Present: normal oropharynx Neck exam: Present: normal inspection, full ROM Respiratory exam: Present: normal lung sounds bilaterally. Absent: respiratory distress, wheezes, rales, rhonchi, stridor Cardiovascular Exam: Present: normal rhythm, tachycardia (Rate approximately 14 at my exam), normal heart sounds. Absent: systolic murmur, diastolic murmur, rubs, gallop GI/Abdominal exam: Present: soft. Absent: distended, tenderness, guarding, rebound, rigid Extremities exam: Present: full ROM, normal capillary refill. Absent: pedal edema, calf tenderness Back exam: Present: normal inspection. Absent: CVA tenderness (R), CVA tenderness (L) Neurological exam: Present: alert. Absent: motor sensory deficit Skin exam: Present: warm, dry, intact, erythema Course Vital Signs 05/20/19 05/20/19 05/20/19 04:30 04:50 06:16 Temperature 99.9 F H 100.8 F H 100.1 F H Pulse Rate 113 H 102 H 88 Pulse Rate [ Right] Respiratory 20 18 18 Rate Blood Pressure 143/83 149/93 149/71 Blood Pressure [Right Arm] O2 Sat by Pulse 94 L 93 L 95 Oximetry 05/20/19 05/20/19 07:00 07:10 Temperature 99.0 F 99.5 F Pulse Rate 94 Pulse Rate [ 87 Right] Respiratory 16 20 Rate Blood Pressure 149/85 Blood Pressure 148/82 [Right Arm] O2 Sat by Pulse 95 98 Oximetry Medical Decision Making - Medical Decision Making Patient is a 58-year-old man presenting with redness, warmth, swelling of the right lower extremity consistent with cellulitis. Patient be admitted to start IV antibiotics. - Lab Data Result diagrams: 05/20/19 04:55 05/20/19 04:55 Lab Results 05/20/19 05/20/19 05/20/19 Range/Units 04:50 04:55 04:55 WBC 10.2 (3.8-10.6) k/uL RBC 4.26 L (4.30-5.90) m/uL Hgb 13.8 (13.0-17.5) gm/dL Hct 39.8 (39.0-53.0) % MCV 93.5 (80.0-100.0) fL MCH 32.3 (25.0-35.0) pg MCHC 34.6 (31.0-37.0) g/dL RDW 13.1 (11.5-15.5) % Plt Count 214 (150-450) k/uL Neutrophils % 85 % Lymphocytes % 8 % Monocytes % 4 % Eosinophils % 2 % Basophils % 0 % Neutrophils # 8.7 H (1.3-7.7) k/uL Lymphocytes # 0.8 L (1.0-4.8) k/uL Monocytes # 0.4 (0-1.0) k/uL Eosinophils # 0.2 (0-0.7) k/uL Basophils # 0.0 (0-0.2) k/uL PT (9.0-12.0) sec INR (<1.2) APTT (22.0-30.0) sec Sodium 134 L (137-145) mmol/L Potassium 4.4 (3.5-5.1) mmol/L Chloride 99 (98-107) mmol/L Carbon Dioxide 25 (22-30) mmol/L Anion Gap 10 mmol/L BUN 12 (9-20) mg/dL Creatinine 0.80 (0.66-1.25) mg/dL Est GFR (CKD-EPI)AfAm >90 (>60 ml/min/1.73 sqM) Est GFR (CKD-EPI)NonAf >90 (>60 ml/min/1.73 sqM) Glucose 154 H (74-99) mg/dL Plasma Lactic Acid Carlos Manuel (0.7-2.0) mmol/L Calcium 8.9 (8.4-10.2) mg/dL Total Bilirubin 0.4 (0.2-1.3) mg/dL AST 30 (17-59) U/L ALT 40 (21-72) U/L Alkaline Phosphatase 89 (38-126) U/L Total Protein 6.8 (6.3-8.2) g/dL Albumin 4.0 (3.5-5.0) g/dL Influenza Type A RNA Not Detected (Not Detectd) Influenza Type B (PCR) Not Detected (Not Detectd) 05/20/19 05/20/19 Range/Units 04:55 04:55 WBC (3.8-10.6) k/uL RBC (4.30-5.90) m/uL Hgb (13.0-17.5) gm/dL Hct (39.0-53.0) % MCV (80.0-100.0) fL MCH (25.0-35.0) pg MCHC (31.0-37.0) g/dL RDW (11.5-15.5) % Plt Count (150-450) k/uL Neutrophils % % Lymphocytes % % Monocytes % % Eosinophils % % Basophils % % Neutrophils # (1.3-7.7) k/uL Lymphocytes # (1.0-4.8) k/uL Monocytes # (0-1.0) k/uL Eosinophils # (0-0.7) k/uL Basophils # (0-0.2) k/uL PT 9.5 (9.0-12.0) sec INR 0.9 (<1.2) APTT 23.1 (22.0-30.0) sec Sodium (137-145) mmol/L Potassium (3.5-5.1) mmol/L Chloride (98-107) mmol/L Carbon Dioxide (22-30) mmol/L Anion Gap mmol/L BUN (9-20) mg/dL Creatinine (0.66-1.25) mg/dL Est GFR (CKD-EPI)AfAm (>60 ml/min/1.73 sqM) Est GFR (CKD-EPI)NonAf (>60 ml/min/1.73 sqM) Glucose (74-99) mg/dL Plasma Lactic Acid Carlos Manuel 1.3 (0.7-2.0) mmol/L Calcium (8.4-10.2) mg/dL Total Bilirubin (0.2-1.3) mg/dL AST (17-59) U/L ALT (21-72) U/L Alkaline Phosphatase (38-126) U/L Total Protein (6.3-8.2) g/dL Albumin (3.5-5.0) g/dL Influenza Type A RNA (Not Detectd) Influenza Type B (PCR) (Not Detectd) - EKG Data -: EKG Interpreted by Pa EKG shows normal: sinus rhythm, axis (Normal), intervals (Normal), QRS complexes (Normal), ST-T waves (Normal) Rate: normal (Rate 98 bpm) Interpretation: normal EKG Disposition Clinical Impression: Cellulitis and abscess of right leg Disposition: ADMITTED IP TO THIS HOSP Condition: Fair
[2019-05-20 05:14] LABS: Basophils % (A) 0 %; Eosinophils # (A) 0.2 k/uL (0-0.7); Eosinophils % (A) 2 %; HCT 39.8 % (39.0-53.0); HGB 13.8 gm/dL (13.0-17.5); Lymphocytes # (A) 0.8 k/uL (1.0-4.8); Lymphocytes % (A) 8 %; MCH 32.3 pg (25.0-35.0); MCHC 34.6 g/dL (31.0-37.0); MCV 93.5 fL (80.0-100.0); Mean Platelet Volume 6.1; Monocytes # (A) 0.4 k/uL (0-1.0); Monocytes % (A) 4 %; Neutrophils # (A) 8.7 k/uL (1.3-7.7); Neutrophils % (A) 85 %; Platelet Count 214 k/uL (150-450); RBC 4.26 m/uL (4.30-5.90); RDW 13.1 % (11.5-15.5); WBC 10.2 k/uL (3.8-10.6)
--- NOTE | 2019-05-20 05:39 | XR ---
EXAMINATION TYPE: XR chest 2V DATE OF EXAM: 05/20/2019 COMPARISON: 09/05/2016 HISTORY: Right leg swelling TECHNIQUE: Frontal and lateral views of the chest are obtained. FINDINGS: Heart is normal. Lungs are clear of consolidation. There is no heart failure. There is mil d coarsening of the lung markings. There is no pleural effusion. There are chest leads. Bony thorax i s intact. IMPRESSION: Slight increased lung markings compared to old exam. No pulmonary consolidation or heart failure.
[2019-05-20 05:58] LABS: INR 0.9 (<1.2); Partial Thromboplastin Time 23.1 sec (22.0-30.0); Prothrombin Time 9.5 sec (9.0-12.0)
[2019-05-20 06:00] LABS: ALT 40 U/L (21-72); AST 30 U/L (17-59); African American GFR (CKD) >90 (>60 ml/min/1.73 sqM); Alkaline Phosphatase 89 U/L (38-126); Anion Gap 10 mmol/L; Blood Urea Nitrogen 12 mg/dL (9-20); Calcium 8.9 mg/dL (8.4-10.2); Carbon Dioxide 25 mmol/L (22-30); Chloride 99 mmol/L (98-107); Glucose 154 mg/dL (74-99); Non-African American GFR(CKD) >90 (>60 ml/min/1.73 sqM); Potassium 4.4 mmol/L (3.5-5.1); Sodium 134 mmol/L (137-145); Total Bilirubin 0.4 mg/dL (0.2-1.3); Total Protein 6.8 g/dL (6.3-8.2)
[2019-05-20] MEDS ORDERED: MAG HYDROX/AL HYDROX/SIMETH 30 ML CUP PO PRN (06:49)
[2019-05-20] MEDS ORDERED: IBUPROFEN 400 MG TAB PO PRN (06:49)
[2019-05-20] MEDS ORDERED: ONDANSETRON 4 MG/2 ML VIAL IVP PRN (06:49)
[2019-05-20] MEDS ORDERED: NALOXONE 0.4 MG/ML 1 ML VIAL IV PRN (06:49)
[2019-05-20] MEDS ORDERED: ACETAMINOPHEN TAB 325 MG TAB PO PRN (06:49)
[2019-05-20] MEDS ORDERED: VANCOMYCIN IV PER PHARMACY 1 EACH MISC MISCELLANE PRN (06:56)
[2019-05-20] MEDS: HYDROcodone/APAP 5-325MG 1 EACH TAB PO PRN ×3 (07:06→21:01)
[2019-05-20] MEDS ORDERED: VANCOMYCIN 2,000 MG in SODIUM CHLORIDE 0.9% 500 ML 500 ML IVPB ONE (08:00)
[2019-05-20] MEDS ORDERED: FLUTICASONE 110 MCG INHALER INHALATION SCH (08:00)
[2019-05-20] MEDS: SODIUM CHLORIDE 0.9% 1,000 ML IV SCH (08:25)
[2019-05-20] MEDS: NICOTINE 21MG/24HR PATCH TRANSDERM SCH (08:27)
[2019-05-20] MEDS: ENOXAPARIN 40 MG/0.4 ML SYRINGE SQ SCH (08:27)
[2019-05-20] MEDS: ASPIRIN 81 MG PO SCH (08:28)
[2019-05-20] MEDS: LISINOPRIL 20 MG TAB PO SCH (08:28)
[2019-05-20] MEDS: GABAPENTIN 400 MG CAP PO SCH ×3 (08:28→20:24)
[2019-05-20] MEDS: oxyCODONE-APAP 10-325MG 1 EACH TAB PO SCH ×2 (08:28→20:23)
[2019-05-20] MEDS: amLODIPine 10 MG TAB PO SCH (08:28)
[2019-05-20] MEDS: PANTOPRAZOLE 40 MG TABLET PO SCH (08:30)
[2019-05-20] MEDS ORDERED: TAMSULOSIN 0.4 MG CAP.ER.24H PO PRN (09:00)
[2019-05-20] MEDS ORDERED: FAMOTIDINE 20 MG TAB PO SCH (09:00)
[2019-05-20] MEDS ORDERED: INFLUENZA VACCINE (6 MOS+) 60 MCG/0.5 ML SYRINGE IM ONE (10:21)
[2019-05-20] MEDS ORDERED: CYCLOBENZAPRINE 10 MG TAB PO PRN (10:41)
[2019-05-20] MEDS: FORMOTEROL FUMARATE 20 MCG/2 ML NEBU INHALATION SCH ×2 (13:11→19:05)
[2019-05-20] MEDS: ETODOLAC 400 MG TAB PO SCH ×2 (14:44→20:25)
[2019-05-20] MEDS: ALBUTEROL NEBULIZED 2.5 MG/3 ML INHALATION PRN ×2 (15:29→19:05)
[2019-05-20] MEDS ORDERED: VANCOMYCIN 1,750 MG in SODIUM CHLORIDE 0.9% 500 ML 500 ML IVPB SCH (16:00)
[2019-05-20] MEDS: SILVER sulfADIAZINE Cream 400 GM 1 APPLIC APPLIC TOPICAL SCH (16:59)
[2019-05-20] MEDS: MONTELUKAST 10 MG TAB PO SCH (20:24)
[2019-05-20] MEDS ORDERED: TIMOLOL 0.5% OPHTH SOLN (PF) 0.2 ML DROPERETTE BOTH EYES SCH (21:00)
[2019-05-20] MEDS: LATANOPROST 0.005% OPHTH DROPS 2.5 ML BTL BOTH EYES SCH (21:02)
--- NOTE | 2019-05-20 22:29 | P.HPIM ---
History of Present Illness H&P Date: 05/20/19 Chief Complaint: Right leg redness swelling History of presenting complaint: This is a very pleasant [address] Chavez. Chronic stable medical conditions include COPD, fibromyalgia, hypertension, Bhavana arthritis, chronic pancreatic is from alcoholism, peripheral neuropathy varicose veins, restless leg syndrome, BPH surgery, Alvarenga's esophagus and chronic low back pain and Bhavana arthritis. It is unclear patient active has underlying coronary artery disease. Patient presents with pain and redness swelling in the right lower extremity. He is unclear if he had an insect bite in the lower part of the leg below the calf area. Noticed pain swelling redness that actually grew. Patient is having low-grade fevers up to 100.8. Was admitted for the same. Patient was given IV vancomycin. Patient also has a wound at the base of the right big first toe. Patient is not draining. Patient has a tape covered on it. Review of systems: GEN.: None EYES: None HEENT: None NECK: None RESPIRATORY: Occasional shortness of breath CARDIOVASCULAR: None GASTROINTESTINAL: None GENITOURINARY: None MUSCULOSKELETAL: Joint pains LYMPHATICS: None HEMATOLOGICAL: None PSYCHIATRY: None NEUROLOGICAL: Numbness in both the legs Social history: Patient lives with his sister calling. May sometime uses a cane. Smoked for close to 42 years. Stopped in 2017. It excessive alcohol for years. Stopped about 2 years ago. Physical examination: VITAL SIGNS: 100.8, 113, 20, 143/83, 94% room air GENERAL: BMI 31.9, sitting upon a distress. EYES: Pupils equal. Conjunctiva normal. HEENT: External appearance of nose and ears normal, oral cavity grossly normal. NECK: JVD not raised; masses not palpable. HEART: First and second heart sounds are normal; some edema especially in the right leg. LUNGS: Respiratory rate increased, diminished breath sounds. ABDOMEN: Soft, nontender, liver spleen not palpable, no masses palpable. PSYCH: Alert and oriented x3; mood and affect normal. NEUROLOGICAL: Cranial nerves grossly intact; no facial asymmetry, power and se nsation grossly intact. LYMPHATICS: No lymph nodes palpable in the axilla and neck MUSCULOSKELETAL: There is swelling of the right leg below the mid calf down to the foot, 80 a of redness in the lower one third of the leg, with the area is slightly more dark red could've an area of insect bite. It is also dressing over the base of the right foot to INVESTIGATIONS, reviewed in the clinical context: White count 10.2 hemoglobin 10.8 potassium 4.4 BUN 12 creatinine 0.806 EKG tracing personally reviewed by me-no sinus rhythm Chest x-ray-lung brown clear Assessment: -Acute cellulitis of right lower extremity below the To the foot, unclear but could have been precipitated by her insect bite, causing sepsis, POA -Rule out DVT in the right lower extremity -COPD in an ex-smoker -Chronic fibromyalgia -Essential hypertension -Primary Bhavana arthritis -Chronic bronchodilators from alcoholism -Alcoholic peripheral neuropathy and-restless leg syndrome -Alvarenga's esophagus Plan: -Patient was started on IV vancomycin. We'll start the patient to IV clindamycin. We'll also use Silvadene cream with Kerlix and Michele wrap. Other home medications resumed. Care was discussed with the patient. Questions were answered. Care was also discussed with nurse. Patient also received IV fluids. For the sepsis. We'll do Doppler ultrasound to rule out DVT in the right lower extremity. Past Medical History Past Medical History: Coronary Artery Disease (CAD), COPD, Eye Disorder, Fibromyalgia, Hypertension, Myocardial Infarction (LA), Osteoarthritis (OA), Prostate Disorder, Vascular Disorder Additional Past Medical History / Comment(s): Chronic cough, chronic pancreatitis, past alcohol abuse-pt states occasionally now, bilateral eye glaucoma, neuropathy bilateral feet, poor circulation to legs, varicose veins, RLS, BPH with surgery, colitis, gastritis, Alvarenga's esophagus, shingelles in 2013 and states joint pain since, chronic low back pain, DDD. Last Myocardial Infarction Date:: 09/02/16 History of Any Multi-Drug Resistant Organisms: None Reported Past Surgical History: Appendectomy, Heart Catheterization, Joint Replacement, Orthopedic Surgery, Prostate Surgery Additional Past Surgical History / Comment(s): R knee arthroscopy for torn meniscus, R total knee arthroplasty, EGD, colonoscopy, TURP Past Anesthesia/Blood Transfusion Reactions: No Reported Reaction Smoking Status: Light tobacco smoker - Past Family History Father Family Medical History: CVA/TIA, Hypertension Additional Family Medical History / Comment(s): Father at the age of 38yrs from HTN/CVA. He was an alcoholic. Mother Family Medical History: COPD Additional Family Medical History / Comment(s): Mother of emphysema at the age of 74 yrs. Medications and Allergies Home Medications Medication Instructions Recorded Confirmed Type Cyclobenzaprine [Flexeril] 10 mg PO DAILY PRN 06/28/16 05/20/19 History Lisinopril [Zestril] 20 mg PO DAILY 06/28/16 05/20/19 History rOPINIRole HCL [Requip] 1 mg PO BID PRN 06/28/16 05/20/19 History Albuterol Inhaler [Ventolin Hfa 2 puff INHALATION RT-Q6H PRN 09/26/16 05/20/19 History Inhaler] amLODIPine [Norvasc] 10 mg PO DAILY 09/26/16 05/20/19 History Tamsulosin [Flomax] 0.4 mg PO DAILY PRN 06/20/17 05/20/19 History Aspirin 81 mg PO DAILY 09/18/17 05/20/19 History Gabapentin [Neurontin] 800 mg PO TID 09/18/17 05/20/19 History Nicotine 21Mg/24Hr Patch [Habitrol 1 patch TRANSDERM DAILY 09/18/17 05/20/19 History 21Mg/24Hr Patch] Vitamin B Complex 1 cap PO DAILY 09/18/17 05/20/19 History Etodolac [Lodine] 400 mg PO BID 01/12/18 05/20/19 History Montelukast [Singulair] 10 mg PO DAILY 01/12/18 05/20/19 History Omeprazole [PriLOSEC] 20 mg PO AC-BRKFST 09/12/18 05/20/19 History Salmeterol Xinafoate [Serevent 1 puff INHALATION RT-BID 09/12/18 05/20/19 History Diskus] oxyCODONE-APAP 10-325MG [Percocet 1 tab PO TID 09/12/18 05/20/19 History 10-325 mg] Beclomethasone Dip 80 Mcg/Puff 2 puff INHALATION RT-BID 05/20/19 05/20/19 History [Qvar 80 mcg] Latanoprost/Pf [Latanoprost 0.005% 1 drop BOTH EYES HS 05/20/19 05/20/19 History Eye Drop] Loratadine [Claritin] 10 mg PO DAILY 05/20/19 05/20/19 History Allergies Allergy/AdvReac Type Severity Reaction Status Date / Time amoxicillin trihydrate AdvReac Rapid Verified 05/20/19 07:06 [From Augmentin] Heart Rate potassium clavulanate AdvReac FELT LIKE Verified 05/20/19 07:06 [From Augmentin] HE WAS GOING TO PASS OUT FAST HEARTBEAT" pregabalin [From Lyrica] AdvReac Swelling Verified 05/20/19 07:06 Physical Exam Vitals: Vital Signs Temp Pulse Pulse Resp BP BP Pulse Ox 05/20/19 20:28 98.9 F 99 20 146/89 94 L 05/20/19 19:26 90 05/20/19 19:16 88 05/20/19 19:15 88 05/20/19 19:05 92 05/20/19 16:00 16 05/20/19 15:43 90 05/20/19 15:29 92 05/20/19 15:00 98.6 F 93 16 161/80 94 L 05/20/19 08:00 20 05/20/19 07:10 99.5 F 94 20 149/85 98 05/20/19 07:00 99.0 F 87 16 148/82 95 05/20/19 06:16 100.1 F H 88 18 149/71 95 05/20/19 04:50 100.8 F H 102 H 18 149/93 93 L 05/20/19 04:30 99.9 F H 113 H 20 143/83 94 L Intake and Output 05/20/19 05/20/19 05/20/19 06:59 14:59 22:59 Intake Total 300 Balance 300 Intake: Oral 300 Other: # Voids 1 Weight 106.594 kg Results CBC & Chem 7: 05/20/19 04:55 05/20/19 04:55 Labs: Abnormal Lab Results - Last 24 Hours (Table) 05/20/19 05/20/19 Range/Units 04:55 04:55 RBC 4.26 L (4.30-5.90) m/uL Neutrophils # 8.7 H (1.3-7.7) k/uL Lymphocytes # 0.8 L (1.0-4.8) k/uL Sodium 134 L (137-145) mmol/L Glucose 154 H (74-99) mg/dL Thrombosis Risk Factor Assmnt - Choose All That Apply Any of the Below Risk Factors Present?: Yes Each Factor Represents 1 point: Abnormal pulmonary function (COPD), Age 41-60 years, Obesity (BMI >25) Other Risk Factors: No Other congenital or acquired thrombophilia - If yes, enter type in comment: No Thrombosis Risk Factor Assessment Total Risk Factor Score: 3 Thrombosis Risk Factor Assessment Level: Moderate Risk
--- NOTE | 2019-05-20 23:32 | US ---
EXAMINATION TYPE: US venous doppler duplex LE RT DATE OF EXAM: 05/20/2019 11:12 PM COMPARISON: US 2017 CLINICAL HISTORY: Rule out DVT. Rule out DVT per order. Minimal pain in groin area. Patient takes asp irin. No HX of DVT. Knee replacement 2017. SIDE PERFORMED: Right TECHNIQUE: The lower extremity deep venous system is examined utilizing real time linear array sonog miguel a with graded compression, doppler sonography and color-flow sonography. VESSELS IMAGED: External Iliac Vein (EIV) Common Femoral Vein Deep Femoral Vein Greater Saphenous Vein * Femoral Vein Popliteal Vein Small Saphenous Vein * Proximal Calf Veins (* superficial vessels) Right Leg: No evidence of DVT in veins imaged from prox calf veins to EIV. Limited visibility and ev aluation of prox calf veins due to edema. Multiple hypoechoic areas with hyperechoic centers seen in the right groin. Largest measures: 2.8 x 1.6 x 1.4 cm. IMPRESSION: There is right inguinal adenopathy. No evidence of deep venous thrombosis in the right l eg.
[2019-05-21] MEDS: HYDROcodone/APAP 5-325MG 1 EACH TAB PO PRN ×6 (01:17→21:03)
[2019-05-21] MEDS: FORMOTEROL FUMARATE 20 MCG/2 ML NEBU INHALATION SCH ×2 (07:45→19:21)
[2019-05-21] MEDS: CLINDAMYCIN 300 MG in DEXTROSE 5% IN WATER 50 ML IVPB SCH ×6 (07:58→21:32)
[2019-05-21] MEDS: PANTOPRAZOLE 40 MG TABLET PO SCH (07:58)
[2019-05-21] MEDS: oxyCODONE-APAP 10-325MG 1 EACH TAB PO SCH ×2 (07:58→20:22)
[2019-05-21] MEDS: LISINOPRIL 20 MG TAB PO SCH (09:45)
[2019-05-21] MEDS: amLODIPine 10 MG TAB PO SCH (09:46)
[2019-05-21] MEDS: GABAPENTIN 400 MG CAP PO SCH ×3 (09:46→20:22)
[2019-05-21] MEDS: ETODOLAC 400 MG TAB PO SCH ×2 (09:47→20:21)
[2019-05-21] MEDS: ENOXAPARIN 40 MG/0.4 ML SYRINGE SQ SCH (09:47)
[2019-05-21] MEDS: ASPIRIN 81 MG PO SCH (09:47)
[2019-05-21] MEDS: NICOTINE 21MG/24HR PATCH TRANSDERM SCH (09:47)
[2019-05-21] MEDS: SODIUM CHLORIDE 0.9% 1,000 ML IV SCH (09:48)
[2019-05-21] MEDS: SILVER sulfADIAZINE Cream 400 GM 1 APPLIC APPLIC TOPICAL SCH (12:11)
[2019-05-21] MEDS: CYANOCOBALAMIN-FA-PYRIDOXINE 1 EACH TAB PO SCH (12:11)
[2019-05-21] MEDS: ALBUTEROL NEBULIZED 2.5 MG/3 ML INHALATION PRN (19:21)
[2019-05-21] MEDS: MONTELUKAST 10 MG TAB PO SCH (20:22)
[2019-05-21] MEDS: LATANOPROST 0.005% OPHTH DROPS 2.5 ML BTL BOTH EYES SCH (20:23)
--- NOTE | 2019-05-21 20:56 | P.PN ---
Progress Note - Text Progress Note Date: 05/21/19 Chief Complaint: Right leg redness swelling Interval history: This is a very pleasant [address] Chavez. Chronic stable medical conditions include COPD, fibromyalgia, hypertension, Bhavana arthritis, chronic pancreatic is from alcoholism, peripheral neuropathy varicose veins, restless leg syndrome, BPH surgery, Alvarenga's esophagus and chronic low back pain and Bhavana arthritis. It is unclear patient active has underlying coronary artery disease. Patient presents with pain and redness swelling in the right lower extremity. He is unclear if he had an insect bite in the lower part of the leg below the calf area. Noticed pain swelling redness that actually grew. Patient is having low-grade fevers up to 100.8. Was admitted for the same. Patient was given IV vancomycin. Patient also has a wound at the base of the right big first toe. Patient is not draining. Patient has a tape covered on it. Admitted with right lower extremity cellulitis. Today-right leg in a Silvadene dressing. Pain swelling fever much improved. Up to the bathroom. DVT was ruled out. Review of systems: Was done for constitutional, cardiovascular, GI, pulmonary. relevant finding as above Active Medications Acetaminophen (Tylenol Tab) 650 mg PO Q6HR PRN PRN Reason: Mild Pain or Fever > 100.5 Hydrocodone Bitart/Acetaminophen ([place] 5-325) 1 each PO Q4HR PRN PRN Reason: Moderate Pain Last Admin: 05/21/19 16:09 Dose: 1 each Documented by: Al Hydroxide/Mg Hydroxide (Maalox) 15 ml PO Q6HR PRN PRN Reason: Indigestion Albuterol Sulfate (Ventolin Nebulized) 2.5 mg INHALATION RT-Q6H PRN PRN Reason: Shortness Of Breath Last Admin: 05/21/19 19:21 Dose: 2.5 mg Documented by: Amlodipine Besylate (Norvasc) 10 mg PO DAILY [facility] Last Admin: 05/21/19 09:46 Dose: 10 mg Documented by: Aspirin (Aspirin) 81 mg PO DAILY [facility] Last Admin: 05/21/19 09:47 Dose: 81 mg Documented by: Cyclobenzaprine HCl (Flexeril) 10 mg PO DAILY PRN PRN Reason: Muscle Spasm Enoxaparin Sodium (Lovenox) 40 mg SQ DAILY [facility] Last Admin: 05/21/19 09:47 Dose: 40 mg Documented by: Etodolac (Lodine) 400 mg PO BID [facility] Last Admin: 05/21/19 20:21 Dose: 400 mg Documented by: Folic Acid (Folbic) 1 each PO DAILY [facility] Last Admin: 05/21/19 12:11 Dose: 1 each Documented by: Formoterol Fumarate (Perforomist) 20 mcg INHALATION RT-BID [facility] Last Admin: 05/21/19 19:21 Dose: 20 mcg Documented by: Gabapentin (Neurontin) 800 mg PO TID [facility] Last Admin: 05/21/19 20:22 Dose: 800 mg Documented by: Sodium Chloride (Saline 0.9%) 1,000 mls @ 20 mls/hr IV .Q24H [facility] Last Admin: 05/21/19 09:48 Dose: Not Given Documented by: Clindamycin Phosphate 300 mg/ (Dextrose/Water) 52 mls @ 50 mls/hr IVPB Q6H [facility] Last Admin: 05/21/19 16:08 Dose: 50 mls/hr Documented by: Ibuprofen (Motrin) 400 mg PO Q6HR PRN PRN Reason: Mild Pain or Fever > 100.5 Latanoprost (Xalatan 0.005%) 1 drops BOTH EYES [facility] Last Admin: 05/21/19 20:23 Dose: 1 drops Documented by: Lisinopril (Zestril) 20 mg PO DAILY [facility] Last Admin: 05/21/19 09:45 Dose: 20 mg Documented by: Montelukast Sodium (Singulair) 10 mg PO [facility] Last Admin: 05/21/19 20:22 Dose: 10 mg Documented by: Naloxone HCl (Narcan) 0.2 mg IV Q2M PRN PRN Reason: Opioid Reversal Nicotine (Habitrol 21mg/24hr Patch) 1 patch TRANSDERM DAILY [facility] Last Admin: 05/21/19 09:47 Dose: 1 patch Documented by: Ondansetron HCl (Zofran) 4 mg IVP Q8HR PRN PRN Reason: Nausea And Vomiting Oxycodone/Acetaminophen (Percocet 10-325) 1 each PO BID [facility] Last Admin: 05/21/19 20:22 Dose: 1 each Documented by: Pantoprazole Sodium (Protonix) 40 mg PO AC-BRKFST [facility] Last Admin: 05/21/19 07:58 Dose: 40 mg Documented by: Ropinirole HCl (Requip) 1 mg PO BID PRN PRN Reason: RLS Silver Sulfadiazine (Silvadene Cream) 1 applic TOPICAL DAILY [facility] Last Admin: 05/21/19 12:11 Dose: 1 applic Documented by: Tamsulosin HCl (Flomax) 0.4 mg PO DAILY PRN PRN Reason: PROSTATE PAIN Physical examination: VITAL SIGNS: Afebrile, 98, 12, 130/82, 95% room air GENERAL: Sitting up in bed, comfortable. EYES: Pupils equal. Conjunctiva normal. HEENT: External appearance of nose and ears normal, oral cavity grossly normal. NECK: JVD not raised; masses not palpable. HEART: First and second heart sounds are normal; some edema especially in the right leg. LUNGS: Respiratory rate increased, diminished breath sounds. ABDOMEN: Soft, nontender, liver spleen not palpable, no masses palpable. PSYCH: Alert and oriented x3; mood and affect normal. MUSCULOSKELETAL: dressing on the right lower extremity up to the foot INVESTIGATIONS, reviewed in the clinical context: Right lower extremity Doppler-negative for DVT Admission testing: White count 10.2 hemoglobin 10.8 potassium 4.4 BUN 12 creatinine 0.806 EKG tracing personally reviewed by me-no sinus rhythm Chest x-ray-lung brown clear Assessment: -Acute cellulitis of right lower extremity below the calf to the foot, unclear but could have been precipitated by her insect bite, causing sepsis, POA, improving -DVT in the right lower extremity ruled out -COPD in an ex-smoker -Chronic fibromyalgia -Essential hypertension -Primary Bhavana arthritis -Chronic bronchodilators from alcoholism -Alcoholic peripheral neuropathy and-restless leg syndrome -Alvarenga's esophagus Plan: Clinically responding well to clindamycin, Silvadene Kroeber dressing. Encouraged ablate. Hopefully can be discharged in 24 hours.
[2019-05-22] MEDS: HYDROcodone/APAP 5-325MG 1 EACH TAB PO PRN ×4 (01:34→13:09)
[2019-05-22] MEDS: CLINDAMYCIN 300 MG in DEXTROSE 5% IN WATER 50 ML IVPB SCH ×4 (02:39→09:30)
[2019-05-22] MEDS: ALBUTEROL NEBULIZED 2.5 MG/3 ML INHALATION PRN (07:57)
[2019-05-22] MEDS: FORMOTEROL FUMARATE 20 MCG/2 ML NEBU INHALATION SCH (07:57)
[2019-05-22 08:02] LABS: Basophils % (A) 1 %; Eosinophils # (A) 0.2 k/uL (0-0.7); Eosinophils % (A) 5 %; HGB 13.7 gm/dL (13.0-17.5); Lymphocytes # (A) 1.3 k/uL (1.0-4.8); Lymphocytes % (A) 26 %; MCH 31.9 pg (25.0-35.0); MCHC 32.6 g/dL (31.0-37.0); MCV 97.8 fL (80.0-100.0); Mean Platelet Volume 5.8; Monocytes # (A) 0.4 k/uL (0-1.0); Monocytes % (A) 8 %; Neutrophils # (A) 2.8 k/uL (1.3-7.7); Neutrophils % (A) 57 %; Platelet Count 205 k/uL (150-450); RBC 4.29 m/uL (4.30-5.90); RDW 13.2 % (11.5-15.5); WBC 4.9 k/uL (3.8-10.6)
[2019-05-22 08:14] LABS: African American GFR (CKD) >90 (>60 ml/min/1.73 sqM); Anion Gap 6 mmol/L; Blood Urea Nitrogen 21 mg/dL (9-20); Calcium 9.1 mg/dL (8.4-10.2); Carbon Dioxide 29 mmol/L (22-30); Chloride 102 mmol/L (98-107); Glucose 114 mg/dL (74-99); Non-African American GFR(CKD) 78 (>60 ml/min/1.73 sqM); Potassium 5.1 mmol/L (3.5-5.1); Sodium 137 mmol/L (137-145)
[2019-05-22] MEDS: SODIUM CHLORIDE 0.9% 1,000 ML IV SCH (08:16)
[2019-05-22] MEDS: ASPIRIN 81 MG PO SCH (08:17)
[2019-05-22] MEDS: GABAPENTIN 400 MG CAP PO SCH (08:17)
[2019-05-22] MEDS: NICOTINE 21MG/24HR PATCH TRANSDERM SCH (08:17)
[2019-05-22] MEDS: LISINOPRIL 20 MG TAB PO SCH (08:17)
[2019-05-22] MEDS: ENOXAPARIN 40 MG/0.4 ML SYRINGE SQ SCH (08:17)
[2019-05-22] MEDS: oxyCODONE-APAP 10-325MG 1 EACH TAB PO SCH (08:18)
[2019-05-22] MEDS: PANTOPRAZOLE 40 MG TABLET PO SCH (08:18)
[2019-05-22] MEDS: CYANOCOBALAMIN-FA-PYRIDOXINE 1 EACH TAB PO SCH (08:18)
[2019-05-22] MEDS: ETODOLAC 400 MG TAB PO SCH (08:18)
[2019-05-22] MEDS: SILVER sulfADIAZINE Cream 400 GM 1 APPLIC APPLIC TOPICAL SCH (08:19)
[2019-05-22] MEDS: amLODIPine 10 MG TAB PO SCH (08:19)
[2019-05-22 08:48] VITALS: TEMP 98
[2019-05-22 15:48] VITALS: BP 137/86; PULSE 70; RESP 14
--- NOTE | 2019-05-22 22:04 | P.DS ---
Providers Date of admission: 05/22/19 10:35 Expected date of discharge: 05/22/19 Attending physician: Jamal Tamayo Primary care physician: Albert Chavez Va Hospital Course: Chief Complaint: Right leg redness swelling Hospital course: This is a very pleasant [address] Chavez. Chronic stable medical conditions include COPD, fibromyalgia, hypertension, Bhavana arthritis, chronic pancreatic is from alcoholism, peripheral neuropathy varicose veins, restless leg syndrome, BPH surgery, Alvarenga's esophagus and chronic low back pain and Bhavana arthritis. It is unclear patient active has underlying coronary artery disease. Patient presents with pain and redness swelling in the right lower extremity. He is unclear if he had an insect bite in the lower part of the leg below the calf area. Noticed pain swelling redness that actually grew. Patient is having low-grade fevers up to 100.8. Was admitted for the same. Patient was given IV vancomycin. Patient also has a wound at the base of the right big first toe. Patient is not draining. Patient has a tape covered on it. Admitted with right lower extremity cellulitis. Causing sepsis. May precipitate by an insect bite. Treat. Treated with IVs clindamycin and local Silvadene. Did much better time of discharge. Redness pain swelling much improved. Care was discussed with the patient. Review of systems: Was done for constitutional, cardiovascular, GI, pulmonary. relevant finding as above Physical examination: VITAL SIGNS: 98, 70, 14, 137/86, 96% room air GENERAL: Sitting up in bed, comfortable. EYES: Pupils equal. Conjunctiva normal. HEENT: External appearance of nose and ears normal, oral cavity grossly normal. NECK: JVD not raised; masses not palpable. HEART: First and second heart sounds are normal; some edema especially in the right leg. LUNGS: Respiratory rate increased, diminished breath sounds. ABDOMEN: Soft, nontender, liver spleen not palpable, no masses palpable. PSYCH: Alert and oriented x3; mood and affect normal. Dermatological: Redness and facial cellulitis improved with right lower extremity INVESTIGATIONS, reviewed in the clinical context: Right lower extremity Doppler-negative for DVT Admission testing: White count 10.2 hemoglobin 10.8 potassium 4.4 BUN 12 creatinine 0.806 EKG tracing personally reviewed by me-no sinus rhythm Chest x-ray-lung brown clear Discharge diagnosis: -Acute cellulitis of right lower extremity below the calf to the foot, unclear but could have been precipitated by her insect bite, causing sepsis, POA, -DVT in the right lower extremity ruled out -COPD in an ex-smoker -Chronic fibromyalgia -Essential hypertension -Primary Bhavana arthritis -Chronic bronchodilators from alcoholism -Alcoholic peripheral neuropathy and -restless leg syndrome -Alvarenga's esophagus Disposition: Home Patient Condition at Discharge: Stable Plan - Discharge Summary Discharge Rx Participant: No New Discharge Prescriptions: New Clindamycin [Cleocin] 300 mg PO Q6H #56 capsule SILVER sulfADIAZINE Cream [Silvadene 1% Cream] 1 applic TOPICAL DAILY applic Continue Lisinopril [Zestril] 20 mg PO DAILY rOPINIRole HCL [Requip] 1 mg PO BID PRN PRN Reason: RLS Cyclobenzaprine [Flexeril] 10 mg PO DAILY PRN PRN Reason: Muscle Spasm Albuterol Inhaler [Ventolin Hfa Inhaler] 2 puff INHALATION RT-Q6H PRN PRN Reason: Shortness Of Breath amLODIPine [Norvasc] 10 mg PO DAILY Tamsulosin [Flomax] 0.4 mg PO DAILY PRN PRN Reason: PROSTATE PAIN Aspirin 81 mg PO DAILY Gabapentin [Neurontin] 800 mg PO TID Nicotine 21Mg/24Hr Patch [Habitrol] 1 patch TRANSDERM DAILY Vitamin B Complex 1 cap PO DAILY Montelukast [Singulair] 10 mg PO DAILY Etodolac [Lodine] 400 mg PO BID oxyCODONE-APAP 10-325MG [Percocet 10-325 mg] 1 tab PO TID Omeprazole [PriLOSEC] 20 mg PO AC-BRKFST Salmeterol Xinafoate [Serevent Diskus] 1 puff INHALATION RT-BID Beclomethasone Dip 80 Mcg/Puff [Qvar 80 mcg] 2 puff INHALATION RT-BID Latanoprost/Pf [Latanoprost 0.005% Eye Drop] 1 drop BOTH EYES HS Loratadine [Claritin] 10 mg PO DAILY Discharge Medication List Cyclobenzaprine [Flexeril] 10 mg PO DAILY PRN 06/28/16 [History] Lisinopril [Zestril] 20 mg PO DAILY 06/28/16 [History] rOPINIRole HCL [Requip] 1 mg PO BID PRN 06/28/16 [History] Albuterol Inhaler [Ventolin Hfa Inhaler] 2 puff INHALATION RT-Q6H PRN 09/26/16 [History] amLODIPine [Norvasc] 10 mg PO DAILY 09/26/16 [History] Tamsulosin [Flomax] 0.4 mg PO DAILY PRN 06/20/17 [History] Aspirin 81 mg PO DAILY 09/18/17 [History] Gabapentin [Neurontin] 800 mg PO TID 09/18/17 [History] Nicotine 21Mg/24Hr Patch [Habitrol] 1 patch TRANSDERM DAILY 09/18/17 [History] Vitamin B Complex 1 cap PO DAILY 09/18/17 [History] Etodolac [Lodine] 400 mg PO BID 01/12/18 [History] Montelukast [Singulair] 10 mg PO DAILY 01/12/18 [History] Omeprazole [PriLOSEC] 20 mg PO AC-BRKFST 09/12/18 [History] Salmeterol Xinafoate [Serevent Diskus] 1 puff INHALATION RT-BID 09/12/18 [History] oxyCODONE-APAP 10-325MG [Percocet 10-325 mg] 1 tab PO TID 09/12/18 [History] Beclomethasone Dip 80 Mcg/Puff [Qvar 80 mcg] 2 puff INHALATION RT-BID 05/20/19 [History] Latanoprost/Pf [Latanoprost 0.005% Eye Drop] 1 drop BOTH EYES HS 05/20/19 [History] Loratadine [Claritin] 10 mg PO DAILY 05/20/19 [History] Clindamycin [Cleocin] 300 mg PO Q6H #56 capsule 05/22/19 [Rx] SILVER sulfADIAZINE Cream [Silvadene 1% Cream] 1 applic TOPICAL DAILY applic 05/22/19 [Rx] Follow up Appointment(s)/Referral(s): Albert Chavez MD [Primary Care Provider] - 05/27/19 2:30 pm Patient Instructions/Handouts: Cellulitis (DC) Discharge Disposition: HOME SELF-CARE
== END 2019-05-22 16:04 | disposition home or self-care (01) ==
LOC: EC 04:24 → 4SSUR 06:49 → UNDOADMOB 06:50 → OBSVTOIN 05-22 10:35 → INTOOBSV 05-22 10:35 → UNDODISIN 05-22 16:04
PROVIDERS: ADMIT Hospitalist; ATTEND Hospitalist
DX: A41.9 Sepsis, unspecified organism (principal); L03.115 Cellulitis of right lower limb; L02.415 Cutaneous abscess of right lower limb; K86.1 Other chronic pancreatitis; G62.1 Alcoholic polyneuropathy; G25.81 Restless legs syndrome; K22.70 Barrett's esophagus without dysplasia; M19.90 Unspecified osteoarthritis, unspecified site; I25.10 Atherosclerotic heart disease of native coronary artery without angina pectoris; I10 Essential (primary) hypertension; J44.9 Chronic obstructive pulmonary disease, unspecified; M79.7 Fibromyalgia; I25.2 Old myocardial infarction; H40.9 Unspecified glaucoma; I83.90 Asymptomatic varicose veins of unspecified lower extremity; F10.20 Alcohol dependence, uncomplicated; G89.29 Other chronic pain; M54.5 Low back pain; Z87.19 Personal history of other diseases of the digestive system; Z79.82 Long term (current) use of aspirin; Z79.51 Long term (current) use of inhaled steroids; Z79.899 Other long term (current) drug therapy; Z86.19 Personal history of other infectious and parasitic diseases; Z96.651 Presence of right artificial knee joint; Z90.79 Acquired absence of other genital organ(s); Z90.49 Acquired absence of other specified parts of digestive tract; Z86.59 Personal history of other mental and behavioral disorders; Z86.69 Personal history of other diseases of the nervous system and sense organs; Z87.438 Personal history of other diseases of male genital organs; Z88.0 Allergy status to penicillin; Z88.8 Allergy status to other drugs, medicaments and biological substances; Z82.49 Family history of ischemic heart disease and other diseases of the circulatory system; Z82.3 Family history of stroke; Z82.5 Family history of asthma and other chronic lower respiratory diseases; Z87.891 Personal history of nicotine dependence; Z79.891 Long term (current) use of opiate analgesic; E66.9 Obesity, unspecified; Z68.31 Body mass index [BMI] 31.0-31.9, adult
CPT/HCPCS: 96366 ×2; 96367; 96372 ×3; 96374; 96365; 99284; 36415; 94640 ×6; 94760; 93005; 80053; 80048; 83605; 85025 ×2; 85610; 85730; 87502; 71046; 93971; G0378 ×3; S4990 ×3; J3370; J1650 ×3; J0696

== ENCOUNTER 2019-06-20 01:52 | Inpatient (IN) | payer OTHER ==
[2019-06-20] MEDS ORDERED: ONDANSETRON 4 MG/2 ML VIAL IVP STA (02:12)
[2019-06-20] MEDS ORDERED: SODIUM CHLORIDE 0.9% 1,000 ML IV STA (02:14)
[2019-06-20] MEDS ORDERED: KETOROLAC 30 MG/ML 1 ML VIAL IVP STA (02:24)
[2019-06-20 02:33] LABS: Basophils # (A) 0.1 k/uL (0-0.2); Basophils % (A) 0 %; Eosinophils # (A) 0.2 k/uL (0-0.7); Eosinophils % (A) 1 %; HCT 46.1 % (39.0-53.0); HGB 15.6 gm/dL (13.0-17.5); Lymphocytes # (A) 1.7 k/uL (1.0-4.8); Lymphocytes % (A) 11 %; MCHC 33.8 g/dL (31.0-37.0); MCV 94.6 fL (80.0-100.0); Mean Platelet Volume 5.8; Monocytes # (A) 0.9 k/uL (0-1.0); Monocytes % (A) 6 %; Neutrophils # (A) 12.2 k/uL (1.3-7.7); Neutrophils % (A) 79 %; Platelet Count 277 k/uL (150-450); RBC 4.88 m/uL (4.30-5.90); RDW 13.2 % (11.5-15.5); WBC 15.4 k/uL (3.8-10.6)
--- NOTE | 2019-06-20 02:40 | XR ---
EXAMINATION TYPE: XR KUB DATE OF EXAM: 06/20/2019 COMPARISON: 06/20/2017 HISTORY: Pancreatitis TECHNIQUE: 2 views upright FINDINGS: There are some gas-filled loops of bowel in the mid abdomen. There is no sign of a pneumope ritoneum. There are no pathologic calcifications over the kidneys. There is some mild atelectasis at the lung bases. There is no evidence of abdominal mass. IMPRESSION: There is possible mild intestinal ileus that is a change compared to old exam. No free ai r. There is some atelectasis at the lung bases probably increased compared to old exam.
[2019-06-20 02:42] LABS: ALT 59 U/L (21-72); AST 47 U/L (17-59); African American GFR (CKD) 83 (>60 ml/min/1.73 sqM); Albumin 4.5 g/dL (3.5-5.0); Alkaline Phosphatase 75 U/L (38-126); Anion Gap 13 mmol/L; Blood Urea Nitrogen 15 mg/dL (9-20); Calcium 9.6 mg/dL (8.4-10.2); Carbon Dioxide 24 mmol/L (22-30); Chloride 100 mmol/L (98-107); Glucose 137 mg/dL (74-99); Potassium 4.5 mmol/L (3.5-5.1); Sodium 137 mmol/L (137-145); Total Bilirubin 0.5 mg/dL (0.2-1.3); Total Protein 7.6 g/dL (6.3-8.2)
[2019-06-20 03:05] LABS: Amylase 2699 U/L (30-110)
--- NOTE | 2019-06-20 03:05 | ED ---
General Adult HPI - General Chief complaint: Nausea/Vomiting/Diarrhea Stated complaint: Nausea,abd pain, poss food poisoning Time Seen by Provider: 06/20/19 02:02 Source: patient, family, RN notes reviewed Mode of arrival: ambulatory Limitations: no limitations - History of Present Illness Initial comments: 59-year-old male with a past medical history of CAD, SD, hypertension presents to the emergency department for "possible food poisoning." Patient states that about an hour after eating a frozen pizza he began vomiting. States that for the past 4 hours he has vomited several times. States he is also having generalized abdominal pain. Denies any diarrhea. Patient has not had a bowel movement since this has started. He denies having had previous occurrences before. He denies fevers or chills.Patient has no other complaints at this time including shortness of breath, chest pain, nausea or vomiting, headache, or visual changes. - Related Data Home Medications Medication Instructions Recorded Confirmed Cyclobenzaprine [Flexeril] 10 mg PO DAILY PRN 06/28/16 05/20/19 Lisinopril [Zestril] 20 mg PO DAILY 06/28/16 05/20/19 rOPINIRole HCL [Requip] 1 mg PO BID PRN 06/28/16 05/20/19 Albuterol Inhaler [Ventolin Hfa 2 puff INHALATION RT-Q6H PRN 09/26/16 05/20/19 Inhaler] amLODIPine [Norvasc] 10 mg PO DAILY 09/26/16 05/20/19 Tamsulosin [Flomax] 0.4 mg PO DAILY PRN 06/20/17 05/20/19 Aspirin 81 mg PO DAILY 09/18/17 05/20/19 Gabapentin [Neurontin] 800 mg PO TID 09/18/17 05/20/19 Nicotine 21Mg/24Hr Patch [Habitrol] 1 patch TRANSDERM DAILY 09/18/17 05/20/19 Vitamin B Complex 1 cap PO DAILY 09/18/17 05/20/19 Etodolac [Lodine] 400 mg PO BID 01/12/18 05/20/19 Montelukast [Singulair] 10 mg PO DAILY 01/12/18 05/20/19 Omeprazole [PriLOSEC] 20 mg PO -BRKFST 09/12/18 05/20/19 Salmeterol Xinafoate [Serevent 1 puff INHALATION RT-BID 09/12/18 05/20/19 Diskus] oxyCODONE-APAP 10-325MG [Percocet 1 tab PO TID 09/12/18 05/20/19 10-325 mg] Beclomethasone Dip 80 Mcg/Puff 2 puff INHALATION RT-BID 05/20/19 05/20/19 [Qvar 80 mcg] Latanoprost/Pf [Latanoprost 0.005% 1 drop BOTH EYES HS 05/20/19 05/20/19 Eye Drop] Loratadine [Claritin] 10 mg PO DAILY 05/20/19 05/20/19 Previous Rx's Medication Instructions Recorded Clindamycin [Cleocin] 300 mg PO Q6H #56 capsule 05/22/19 SILVER sulfADIAZINE Cream 1 applic TOPICAL DAILY applic 05/22/19 [Silvadene 1% Cream] Allergies Allergy/AdvReac Type Severity Reaction Status Date / Time amoxicillin trihydrate AdvReac Rapid Verified 06/20/19 01:59 [From Augmentin] Heart Rate potassium clavulanate AdvReac FELT LIKE Verified 06/20/19 01:59 [From Augmentin] HE WAS GOING TO PASS OUT FAST HEARTBEAT" pregabalin [From Lyrica] AdvReac Swelling Verified 06/20/19 01:59 Review of Systems ROS Statement: Those systems with pertinent positive or pertinent negative responses have been documented in the HPI. ROS Other: All systems not noted in ROS Statement are negative. Past Medical History Past Medical History: Coronary Artery Disease (CAD), COPD, Eye Disorder, Fibromyalgia, Hypertension, Myocardial Infarction (SD), Osteoarthritis (OA), Prostate Disorder, Vascular Disorder Additional Past Medical History / Comment(s): Chronic cough, chronic pancreatitis, past alcohol abuse-pt states occasionally now, bilateral eye glaucoma, neuropathy bilateral feet, poor circulation to legs, varicose veins, RLS, BPH with surgery, colitis, gastritis, Alvarenga's esophagus, shingelles in 2012 and states joint pain since, chronic low back pain, DDD. Last Myocardial Infarction Date:: 09/02/16 History of Any Multi-Drug Resistant Organisms: None Reported Past Surgical History: Appendectomy, Heart Catheterization, Joint Replacement, Orthopedic Surgery, Prostate Surgery Additional Past Surgical History / Comment(s): R knee arthroscopy for torn meniscus, R total knee arthroplasty, EGD, colonoscopy, TURP Past Anesthesia/Blood Transfusion Reactions: No Reported Reaction Past Psychological History: Anxiety, Depression Smoking Status: Current every day smoker Past Alcohol Use History: Occasional Past Drug Use History: None Reported - Past Family History Father Family Medical History: CVA/TIA, Hypertension Additional Family Medical History / Comment(s): Father at the age of 38yrs from HTN/CVA. He was an alcoholic. Mother Family Medical History: COPD Additional Family Medical History / Comment(s): Mother of emphysema at the age of 74 yrs. General Exam Limitations: no limitations General appearance: alert, in no apparent distress Head exam: Present: atraumatic, normocephalic, normal inspection Eye exam: Present: normal appearance, PERRL, EOMI. Absent: scleral icterus, conjunctival injection, periorbital swelling ENT exam: Present: normal exam, mucous membranes moist Neck exam: Present: normal inspection. Absent: tenderness, meningismus, lymphadenopathy Respiratory exam: Present: normal lung sounds bilaterally. Absent: respiratory distress, wheezes, rales, rhonchi, stridor Cardiovascular Exam: Present: regular rate, normal rhythm, normal heart sounds. Absent: systolic murmur, diastolic murmur, rubs, gallop, clicks GI/Abdominal exam: Present: soft, distended (Abdomen is noted to be mildly distended), tenderness (Mild generalized abdominal tenderness), normal bowel sounds. Absent: guarding, rebound, rigid Neurological exam: Present: alert Course Vital Signs 06/20/19 01:55 Temperature 97.5 F L Pulse Rate 87 Respiratory 20 Rate Blood Pressure 123/72 O2 Sat by Pulse 97 Oximetry Medical Decision Making - Medical Decision Making 59-year-old male with a past medical history of alcohol abuse and chronic pancreatitis presents to the emergency department for nausea vomiting as well as generalized abdominal pain. This is been ongoing for about 4 hours. Patient initially thought he had food poisoning. On exam patient does have a distended abdomen with generalized tenderness. Initial concern was for obstruction therefore a CT was ordered which showed a clearing of small bowel ileus. However patient was found to have acute pancreatitis with a lipase of greater than 20,000. Likely secondary to alcoholic pancreatitis as patient drinks upwards of 5 beers daily. Leukocytosis and lactic acid likely secondary to vomiting. At this time patient will be admitted for bowel rest with IV hydration and pain management. - Lab Data Result diagrams: 06/20/19 02:11 06/20/19 02:11 Lab Results 06/20/19 06/20/19 06/20/19 Range/Units 02:11 02:11 02:11 WBC 15.4 H (3.8-10.6) k/uL RBC 4.88 (4.30-5.90) m/uL Hgb 15.6 (13.0-17.5) gm/dL Hct 46.1 (39.0-53.0) % MCV 94.6 (80.0-100.0) fL MCH 32.0 (25.0-35.0) pg MCHC 33.8 (31.0-37.0) g/dL RDW 13.2 (11.5-15.5) % Plt Count 277 (150-450) k/uL Neutrophils % 79 % Lymphocytes % 11 % Monocytes % 6 % Eosinophils % 1 % Basophils % 0 % Neutrophils # 12.2 H (1.3-7.7) k/uL Lymphocytes # 1.7 (1.0-4.8) k/uL Monocytes # 0.9 (0-1.0) k/uL Eosinophils # 0.2 (0-0.7) k/uL Basophils # 0.1 (0-0.2) k/uL Sodium 137 (137-145) mmol/L Potassium 4.5 (3.5-5.1) mmol/L Chloride 100 (98-107) mmol/L Carbon Dioxide 24 (22-30) mmol/L Anion Gap 13 mmol/L BUN 15 (9-20) mg/dL Creatinine 1.12 (0.66-1.25) mg/dL Est GFR (CKD-EPI)AfAm 83 (>60 ml/min/1.73 sqM) Est GFR (CKD-EPI)NonAf 72 (>60 ml/min/1.73 sqM) Glucose 137 H (74-99) mg/dL Plasma Lactic Acid Carlos Manuel 2.2 H* (0.7-2.0) mmol/L Calcium 9.6 (8.4-10.2) mg/dL Total Bilirubin 0.5 (0.2-1.3) mg/dL AST 47 (17-59) U/L ALT 59 (21-72) U/L Alkaline Phosphatase 75 (38-126) U/L Total Protein 7.6 (6.3-8.2) g/dL Albumin 4.5 (3.5-5.0) g/dL Amylase 2699 H* (30-110) U/L Lipase >44983 H (23-300) U/L Disposition Clinical Impression: Pancreatitis, Leukocytosis Disposition: ADMITTED IP TO THIS [facility] Condition: Fair Is patient prescribed a controlled substance at d/c from ED?: No Referrals: Albert Chavez MD [Primary Care Provider] - 1-2 days Time of Disposition: 03:29
--- NOTE | 2019-06-20 03:16 | CT ---
EXAMINATION TYPE: CT abdomen pelvis w con DATE OF EXAM: 06/20/2019 COMPARISON: 11/29/2016 HISTORY: Patient presents with abdominal pain. CT DLP: 1788.8 mGycm Automated exposure control for dose reduction was used. TECHNIQUE: Helical acquisition of images was performed from the lung bases through the pelvis. CONTRAST: Performed without Oral Contrast and with IV Contrast, patient injected with 100mL mL of Isovue 300. FINDINGS: Lung bases are clear. There is no pleural effusion. Heart size is normal. Liver spleen stomach appear normal. Bile ducts are not dilated. There is no evidence of pancreatic ma ss. There is no adrenal mass. Kidneys show satisfactory contrast opacification. There is no hydronephrosi s. There is minimal fat stranding around the kidneys of uncertain and doubtful significance. Bladder distends smoothly. There is minimal prostate calcification. There is no inguinal hernia. There is no free fluid in the pelvis. Appendix is not seen. There is no sign of thickened appendix. There is no mesenteric edema. There is no ascites or free air. There is some degenerative disc space narrowing in the lumbar spine from L2 to L5 with spurring. Ther e is no compression fracture. Bony pelvis appears intact. IMPRESSION: NEGATIVE CT SCAN ABDOMEN AND PELVIS. There is clearing of the small bowel ileus compared to old exam. Minimal stranding around the kidneys unchanged.
[2019-06-20] MEDS ORDERED: NALOXONE 0.4 MG/ML 1 ML VIAL IV PRN (03:25)
[2019-06-20] MEDS ORDERED: ONDANSETRON 4 MG/2 ML VIAL IVP PRN (03:25)
[2019-06-20] MEDS ORDERED: MORPHINE SULFATE 4 MG/ML SYRINGE IV PRN (03:25)
[2019-06-20] MEDS: HYDROmorphone 1 MG/ML 1 ML SYRINGE IVP PRN ×7 (04:50→23:33)
[2019-06-20] MEDS: SODIUM CHLORIDE 0.9% 1,000 ML IV SCH ×5 (04:53→23:33)
[2019-06-20 05:25] VITALS: BMI 31.8
[2019-06-20] MEDS ORDERED: oxyCODONE-APAP 10-325MG 1 EACH TAB PO PRN (10:52)
[2019-06-20] MEDS ORDERED: ALBUTEROL NEBULIZED 2.5 MG/3 ML INHALATION PRN (10:52)
[2019-06-20] MEDS ORDERED: TAMSULOSIN 0.4 MG CAP.ER.24H PO PRN (10:52)
[2019-06-20] MEDS: FORMOTEROL FUMARATE 20 MCG/2 ML NEBU INHALATION SCH ×3 (11:23→21:16)
[2019-06-20] MEDS: PANTOPRAZOLE 40 MG TABLET PO SCH (11:28)
[2019-06-20] MEDS: amLODIPine 10 MG TAB PO SCH (11:28)
[2019-06-20] MEDS: GABAPENTIN 400 MG CAP PO SCH ×3 (11:28→23:22)
[2019-06-20] MEDS: MONTELUKAST 10 MG TAB PO SCH (11:28)
[2019-06-20] MEDS: ASPIRIN 81 MG PO SCH (11:28)
[2019-06-20] MEDS: LORATADINE 10 MG TAB PO SCH (11:29)
[2019-06-20] MEDS: LISINOPRIL 20 MG TAB PO SCH (11:29)
[2019-06-20] MEDS: CYCLOBENZAPRINE 10 MG TAB PO PRN (11:29)
[2019-06-20] MEDS: NICOTINE 21MG/24HR PATCH TRANSDERM SCH (11:29)
[2019-06-20] MEDS: ETODOLAC 400 MG TAB PO SCH ×2 (14:47→20:48)
[2019-06-20] MEDS: FLUTICASONE 110 MCG INHALER INHALATION SCH ×2 (20:52→21:15)
[2019-06-20] MEDS ORDERED: LATANOPROST 0.005% OPHTH DROPS 2.5 ML BTL BOTH EYES SCH (21:00)
--- NOTE | 2019-06-20 21:21 | P.HPIM ---
History of Present Illness H&P Date: 06/20/19 Chief Complaint: Abdominal pain History of presenting complaint: This is a very pleasant [address] Chavez. Chronic stable medical conditions include COPD, fibromyalgia, hypertension, Bhavana arthritis, chronic pancreatitis from alcoholism, peripheral neuropathy varicose veins, restless leg syndrome, BPH surgery, Alvarenga's esophagus and chronic low back pain and osteoarthritis. Patient was in the hospital about a month ago with acute right lower extremity cellulitis. Patient yesterday started having increasing upper abdominal pain which progressively got worse and. It was at the epigastric area and spread around. Did not go to the back. Does a lot of dry heaving no obvious fever or chills. Symptoms got really worse. Decided to present to the ER. Patient's found to have severe acute pancreatitis. Admitted for the same. Initially was made nothing by mouth then given clear liquids. Patient has known chronic pancreatitis from alcoholism. Feeling a bit better this afternoon . Review of systems: GEN.: Tired EYES: None HEENT: None NECK: None RESPIRATORY: Occasional shortness of breath CARDIOVASCULAR: None GASTROINTESTINAL: As above GENITOURINARY: None MUSCULOSKELETAL: Joint pains LYMPHATICS: None HEMATOLOGICAL: None PSYCHIATRY: None NEUROLOGICAL: Numbness in both the legs Social history: Patient lives with his sister Scott May sometime uses a cane. Smoked for close to 42 years. Stopped in 2017. excessive alcohol for years. Stopped about 2 years ago. Physical examination: VITAL SIGNS: 97.5, 87, 20, 123/72, 97% room air GENERAL: BMI 31.9, sitting up in in the bed EYES: Pupils equal. Conjunctiva normal. HEENT: External appearance of nose and ears normal, oral cavity grossly normal. NECK: JVD not raised; masses not palpable. HEART: First and second heart sounds are normal; minimal edema. LUNGS: Respiratory rate normal, diminished breath sounds. ABDOMEN: Soft, epigastric tenderness, no guarding or rigidity, liver spleen not palpable, no masses palpable. PSYCH: Alert and oriented x3; mood and affect slightly anxious NEUROLOGICAL: Cranial nerves grossly intact; no facial asymmetry, power and sensation grossly intact. LYMPHATICS: No lymph nodes palpable in the axilla and neck INVESTIGATIONS, reviewed in the clinical context: White count 15.4 hemoglobin 15.6 platelets 277 potassium 4.5 bun 15 creatinine 1.12 Lactic acid 2.2 2.1 Amylase 2699, lipase greater than 20,000 Computed tomography scan of the abdomen-unremarkable Assessment: -Acute severe pancreatitis in a patient with known chronic pancreatitis from alcoholism -COPD in an ex-smoker -Chronic fibromyalgia -Essential hypertension -Primary osteoarthritis -Alcoholic peripheral neuropathy and -restless leg syndrome -Alvarenga's esophagus Plan: Patient was initially admitted to the service liquids. Urine IV fluids. Home medications resumed. Care was discussed with the patient. Questions were answered. Repeat labs in the morning. Past Medical History Past Medical History: Coronary Artery Disease (CAD), COPD, Eye Disorder, Fibromyalgia, Hypertension, Myocardial Infarction (PR), Osteoarthritis (OA), Prostate Disorder, Vascular Disorder Additional Past Medical History / Comment(s): Chronic cough, chronic pancreatitis, past alcohol abuse-pt states occasionally now, bilateral eye glaucoma, neuropathy bilateral feet, poor circulation to legs, varicose veins, RLS, BPH with surgery, colitis, gastritis, Alvarenga's esophagus, shingelles in 2012 and states joint pain since, chronic low back pain, DDD. Last Myocardial Infarction Date:: 09/02/16 History of Any Multi-Drug Resistant Organisms: None Reported Past Surgical History: Appendectomy, Heart Catheterization, Joint Replacement, Orthopedic Surgery, Prostate Surgery Additional Past Surgical History / Comment(s): R knee arthroscopy for torn meniscus, R total knee arthroplasty, EGD, colonoscopy, TURP Past Anesthesia/Blood Transfusion Reactions: No Reported Reaction Past Psychological History: Anxiety, Depression Additional Psychological History / Comment(s): Pt resides with his sister Ewelina. He uses a cane prn. 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 Smoking Status: Current some day smoker Past Alcohol Use History: Occasional Additional Past Alcohol Use History / Comment(s): Pt started smoking at age 13, quit smoking 10/2016, but has an occasional cigarette or 2 in a week. Pt has hx of alcohol abuse but states now he drinks on occasion only. (06/20/2019) - pt states he has been using nicotine patches to help stop smoking, has been recently trying to stop Past Drug Use History: None Reported Additional Drug Use History / Comment(s): Past cocaine use, pt states its been a few years since he used. - Past Family History Father Family Medical History: CVA/TIA, Hypertension Additional Family Medical History / Comment(s): Father at the age of 38yrs from HTN/CVA. He was an alcoholic. Mother Family Medical History: COPD, Diabetes Mellitus Additional Family Medical History / Comment(s): Mother of emphysema at the age of 74 yrs (2003), mom has hx of drinking and smoking Medications and Allergies Home Medications Medication Instructions Recorded Confirmed Type Cyclobenzaprine [Flexeril] 10 mg PO TID PRN 06/28/16 06/20/19 History Lisinopril [Zestril] 20 mg PO DAILY 06/28/16 06/20/19 History rOPINIRole HCL [Requip] 1 mg PO BID PRN 06/28/16 06/20/19 History Albuterol Inhaler [Ventolin Hfa 2 puff INHALATION RT-Q6H PRN 09/26/16 06/20/19 History Inhaler] amLODIPine [Norvasc] 10 mg PO DAILY 09/26/16 06/20/19 History Tamsulosin [Flomax] 0.4 mg PO DAILY PRN 06/20/17 06/20/19 History Aspirin 81 mg PO DAILY 09/18/17 06/20/19 History Gabapentin [Neurontin] 800 mg PO TID 09/18/17 06/20/19 History Nicotine 21Mg/24Hr Patch [Habitrol] 1 patch TRANSDERM DAILY 09/18/17 06/20/19 History Etodolac [Lodine] 400 mg PO BID 01/12/18 06/20/19 History Montelukast [Singulair] 10 mg PO DAILY 01/12/18 06/20/19 History Omeprazole [PriLOSEC] 20 mg PO AC-BRKFST 09/12/18 06/20/19 History Salmeterol Xinafoate [Serevent 1 puff INHALATION RT-BID 09/12/18 06/20/19 History Diskus] oxyCODONE-APAP 10-325MG [Percocet 1 tab PO TID PRN 09/12/18 06/20/19 History 10-325 mg] Beclomethasone Dip 80 Mcg/Puff 2 puff INHALATION RT-BID 05/20/19 06/20/19 History [Qvar 80 mcg] Latanoprost/Pf [Latanoprost 0.005% 1 drop BOTH EYES HS 05/20/19 06/20/19 History Eye Drop] Loratadine [Claritin] 10 mg PO DAILY 05/20/19 06/20/19 History Allergies Allergy/AdvReac Type Severity Reaction Status Date / Time amoxicillin trihydrate AdvReac Rapid Verified 06/20/19 08:55 [From Augmentin] Heart Rate potassium clavulanate AdvReac FELT LIKE Verified 06/20/19 08:55 [From Augmentin] HE WAS GOING TO PASS OUT FAST HEARTBEAT" pregabalin [From Lyrica] AdvReac Swelling Verified 06/20/19 08:55 Physical Exam Vitals: Vital Signs Temp Pulse Pulse Resp BP BP Pulse Ox 06/20/19 19:43 97.8 F 82 16 153/84 93 L 06/20/19 12:33 96.1 F L 82 16 153/81 06/20/19 11:42 94 L 06/20/19 11:36 77 06/20/19 11:25 76 06/20/19 07:00 98.2 F 59 L 12 103/47 99 06/20/19 05:30 98.1 F 93 144/78 78 L 06/20/19 04:37 98.3 F 63 18 130/83 95 06/20/19 01:55 97.5 F L 87 20 123/72 97 Intake and Output 06/20/19 06/20/19 06/20/19 06:59 14:59 22:59 Intake Total 240 2000 Output Total 1400 1700 Balance -1160 300 Intake: Intake, IV Titration 2000 Amount Sodium Chloride 0.9% 1, 2000 000 ml @ 200 mls/hr IV . Q5H [facility] Rx#:[id number] Oral 240 Output: Urine 1400 1700 Other: Voiding Method Urinal Urinal # Voids 1 1 Weight 106.594 kg Results CBC & Chem 7: 06/20/19 02:11 06/20/19 02:11 Labs: Abnormal Lab Results - Last 24 Hours (Table) 06/20/19 06/20/19 06/20/19 Range/Units 02:11 02:11 02:11 WBC 15.4 H (3.8-10.6) k/uL Neutrophils # 12.2 H (1.3-7.7) k/uL Glucose 137 H (74-99) mg/dL Plasma Lactic Acid Carlos Manuel 2.2 H* (0.7-2.0) mmol/L Amylase 2699 H* (30-110) U/L Lipase >53705 H (23-300) U/L 06/20/19 Range/Units 06:41 WBC (3.8-10.6) k/uL Neutrophils # (1.3-7.7) k/uL Glucose (74-99) mg/dL Plasma Lactic Acid Carlos Manuel 2.1 H* (0.7-2.0) mmol/L Amylase (30-110) U/L Lipase (23-300) U/L Thrombosis Risk Factor Assmnt - Choose All That Apply Any of the Below Risk Factors Present?: Yes Each Factor Represents 1 point: Age 41-60 years, Obesity (BMI >25), Varicose veins Other Risk Factors: No Other congenital or acquired thrombophilia - If yes, enter type in comment: No Thrombosis Risk Factor Assessment Total Risk Factor Score: 3 Thrombosis Risk Factor Assessment Level: Moderate Risk
[2019-06-21] MEDS: HYDROmorphone 1 MG/ML 1 ML SYRINGE IVP PRN ×3 (02:35→08:53)
[2019-06-21] MEDS: SODIUM CHLORIDE 0.9% 1,000 ML IV SCH ×3 (04:41→15:47)
[2019-06-21 07:54] LABS: Basophils % (A) 1 %; Eosinophils # (A) 0.3 k/uL (0-0.7); Eosinophils % (A) 5 %; HCT 40.9 % (39.0-53.0); HGB 13.6 gm/dL (13.0-17.5); Lymphocytes # (A) 1.3 k/uL (1.0-4.8); Lymphocytes % (A) 24 %; MCH 31.6 pg (25.0-35.0); MCHC 33.3 g/dL (31.0-37.0); Monocytes # (A) 0.3 k/uL (0-1.0); Monocytes % (A) 6 %; Neutrophils # (A) 3.2 k/uL (1.3-7.7); Neutrophils % (A) 61 %; Platelet Count 207 k/uL (150-450); RDW 13.1 % (11.5-15.5); WBC 5.2 k/uL (3.8-10.6)
[2019-06-21 08:08] LABS: ALT 44 U/L (21-72); AST 34 U/L (17-59); African American GFR (CKD) >90 (>60 ml/min/1.73 sqM); Albumin 3.5 g/dL (3.5-5.0); Alkaline Phosphatase 66 U/L (38-126); Amylase 84 U/L (30-110); Anion Gap 8 mmol/L; Blood Urea Nitrogen 11 mg/dL (9-20); Calcium 8.9 mg/dL (8.4-10.2); Carbon Dioxide 23 mmol/L (22-30); Chloride 106 mmol/L (98-107); Glucose 110 mg/dL (74-99); Magnesium 2.1 mg/dL (1.6-2.3); Potassium 4.5 mmol/L (3.5-5.1); Sodium 137 mmol/L (137-145); Total Bilirubin 0.7 mg/dL (0.2-1.3); Total Protein 6.3 g/dL (6.3-8.2)
[2019-06-21] MEDS: ASPIRIN 81 MG PO SCH (08:52)
[2019-06-21] MEDS: LISINOPRIL 20 MG TAB PO SCH (08:52)
[2019-06-21] MEDS: MONTELUKAST 10 MG TAB PO SCH (08:52)
[2019-06-21] MEDS: ETODOLAC 400 MG TAB PO SCH (08:53)
[2019-06-21] MEDS: LORATADINE 10 MG TAB PO SCH (08:53)
[2019-06-21] MEDS: amLODIPine 10 MG TAB PO SCH (08:53)
[2019-06-21] MEDS: PANTOPRAZOLE 40 MG TABLET PO SCH (08:53)
[2019-06-21] MEDS: CYCLOBENZAPRINE 10 MG TAB PO PRN (08:53)
[2019-06-21] MEDS: NICOTINE 21MG/24HR PATCH TRANSDERM SCH (08:53)
[2019-06-21] MEDS: GABAPENTIN 400 MG CAP PO SCH ×2 (08:53→15:48)
[2019-06-21] MEDS: FLUTICASONE 110 MCG INHALER INHALATION SCH (09:11)
[2019-06-21] MEDS: FORMOTEROL FUMARATE 20 MCG/2 ML NEBU INHALATION SCH (09:11)
[2019-06-21 11:02] VITALS: TEMP 97.6
[2019-06-21 15:16] VITALS: BP 143/84; PULSE 80; RESP 17
--- NOTE | 2019-06-21 18:35 | P.DS ---
Providers Date of admission: 06/20/19 03:25 Expected date of discharge: 06/21/19 Attending physician: Jamal Tamayo Primary care physician: Albert Chavez [facility] Course: Chief Complaint: Abdominal pain Hospital course: This is a very pleasant [address] Chavez. Chronic stable medical conditions include COPD, fibromyalgia, hypertension, Bhavana arthritis, chronic pancreatitis from alcoholism, peripheral neuropathy varicose veins, restless leg syndrome, BPH surgery, Alvarenga's esophagus and chronic low back pain and osteoarthritis. Patient was in the hospital about a month ago with acute right lower extremity cellulitis. Patient yesterday started having increasing upper abdominal pain which progressively got worse and. It was at the epigastric area and spread around. Did not go to the back. Does a lot of dry heaving no obvious fever or chills. Symptoms got really worse. Decided to present to the ER. Patient's found to have severe acute pancreatitis. Admitted for the same. Initially was made nothing by mouth then given clear liquids. Patient has known chronic pancreatitis from alcoholism. Patient was initially on clear liquids. Diet was pretty advanced today. Continue to work. Pancreatic enzymes came down nicely. Abdominal pain much improved. Care was discussed with the patient. . Physical examination: VITAL SIGNS: 97.6, 80, 17, 143/84, 97% room air GENERAL: Sitting up, comfortable EYES: Pupils equal. Conjunctiva normal. HEENT: External appearance of nose and ears normal, oral cavity grossly normal. NECK: JVD not raised; masses not palpable. HEART: First and second heart sounds are normal; minimal edema. LUNGS: Respiratory rate normal, diminished breath sounds. ABDOMEN: Soft, nontender, no guarding or rigidity, liver spleen not palpable, no masses palpable. PSYCH: Alert and oriented x3; mood and affect slightly anxious INVESTIGATIONS, reviewed in the clinical context: Amylase 84 lipase 437 white count 5.2 Previous testing White count 15.4 hemoglobin 15.6 platelets 277 potassium 4.5 bun 15 creatinine 1.12 Lactic acid 2.2 2.1 Amylase 2699, lipase greater than 20,000 Computed tomography scan of the abdomen-unremarkable Assessment: -Acute severe pancreatitis in a patient with known chronic pancreatitis from alcoholism, improved -COPD in an ex-smoker -Chronic fibromyalgia -Essential hypertension -Primary osteoarthritis -Alcoholic peripheral neuropathy and -restless leg syndrome -Alvarenga's esophagus Disposition: Low fat diet Patient Condition at Discharge: Stable Plan - Discharge Summary Discharge Rx Participant: Yes New Discharge Prescriptions: Continue Lisinopril [Zestril] 20 mg PO DAILY rOPINIRole HCL [Requip] 1 mg PO BID PRN PRN Reason: RLS Cyclobenzaprine [Flexeril] 10 mg PO TID PRN PRN Reason: Muscle Spasm Albuterol Inhaler [Ventolin Hfa Inhaler] 2 puff INHALATION RT-Q6H PRN PRN Reason: Shortness Of Breath amLODIPine [Norvasc] 10 mg PO DAILY Tamsulosin [Flomax] 0.4 mg PO DAILY PRN PRN Reason: PROSTATE PAIN Aspirin 81 mg PO DAILY Gabapentin [Neurontin] 800 mg PO TID Nicotine 21Mg/24Hr Patch [Habitrol] 1 patch TRANSDERM DAILY Montelukast [Singulair] 10 mg PO DAILY Etodolac [Lodine] 400 mg PO BID oxyCODONE-APAP 10-325MG [Percocet 10-325 mg] 1 tab PO TID PRN PRN Reason: Pain Omeprazole [PriLOSEC] 20 mg PO AC-BRKFST Salmeterol Xinafoate [Serevent Diskus] 1 puff INHALATION RT-BID Beclomethasone Dip 80 Mcg/Puff [Qvar 80 mcg] 2 puff INHALATION RT-BID Latanoprost/Pf [Latanoprost 0.005% Eye Drop] 1 drop BOTH EYES HS Loratadine [Claritin] 10 mg PO DAILY Discharge Medication List Cyclobenzaprine [Flexeril] 10 mg PO TID PRN 06/28/16 [History] Lisinopril [Zestril] 20 mg PO DAILY 06/28/16 [History] rOPINIRole HCL [Requip] 1 mg PO BID PRN 06/28/16 [History] Albuterol Inhaler [Ventolin Hfa Inhaler] 2 puff INHALATION RT-Q6H PRN 09/26/16 [History] amLODIPine [Norvasc] 10 mg PO DAILY 09/26/16 [History] Tamsulosin [Flomax] 0.4 mg PO DAILY PRN 06/20/17 [History] Aspirin 81 mg PO DAILY 09/18/17 [History] Gabapentin [Neurontin] 800 mg PO TID 09/18/17 [History] Nicotine 21Mg/24Hr Patch [Habitrol] 1 patch TRANSDERM DAILY 09/18/17 [History] Etodolac [Lodine] 400 mg PO BID 01/12/18 [History] Montelukast [Singulair] 10 mg PO DAILY 01/12/18 [History] Omeprazole [PriLOSEC] 20 mg PO AC-BRKFST 09/12/18 [History] Salmeterol Xinafoate [Serevent Diskus] 1 puff INHALATION RT-BID 09/12/18 [History] oxyCODONE-APAP 10-325MG [Percocet 10-325 mg] 1 tab PO TID PRN 09/12/18 [History] Beclomethasone Dip 80 Mcg/Puff [Qvar 80 mcg] 2 puff INHALATION RT-BID 05/20/19 [History] Latanoprost/Pf [Latanoprost 0.005% Eye Drop] 1 drop BOTH EYES HS 05/20/19 [History] Loratadine [Claritin] 10 mg PO DAILY 05/20/19 [History] Follow up Appointment(s)/Referral(s): Albert Chavez MD [Primary Care Provider] - 1-2 days (office closed at time of discharge. Please call to make appointment) Patient Instructions/Handouts: Pancreatitis (DC) Activity/Diet/Wound Care/Special Instructions: DC after supper today
== END 2019-06-21 18:25 | disposition home or self-care (01) | DRG 440 ==
LOC: EC 01:52 → 4SSUR 03:25
PROVIDERS: ADMIT Hospitalist; ATTEND Hospitalist
DX: K85.20 Alcohol induced acute pancreatitis without necrosis or infection (principal); G62.1 Alcoholic polyneuropathy; K86.0 Alcohol-induced chronic pancreatitis; F10.20 Alcohol dependence, uncomplicated; K22.70 Barrett's esophagus without dysplasia; G25.81 Restless legs syndrome; J44.9 Chronic obstructive pulmonary disease, unspecified; I25.10 Atherosclerotic heart disease of native coronary artery without angina pectoris; I10 Essential (primary) hypertension; M79.7 Fibromyalgia; M19.91 Primary osteoarthritis, unspecified site; I83.90 Asymptomatic varicose veins of unspecified lower extremity; G89.29 Other chronic pain; M54.5 Low back pain; H40.9 Unspecified glaucoma; N40.0 Benign prostatic hyperplasia without lower urinary tract symptoms; I25.2 Old myocardial infarction; R05 Cough; F17.210 Nicotine dependence, cigarettes, uncomplicated; Z79.82 Long term (current) use of aspirin; Z79.51 Long term (current) use of inhaled steroids; Z79.899 Other long term (current) drug therapy; Z87.19 Personal history of other diseases of the digestive system; Z86.19 Personal history of other infectious and parasitic diseases; Z90.49 Acquired absence of other specified parts of digestive tract; Z96.651 Presence of right artificial knee joint; Z86.59 Personal history of other mental and behavioral disorders; Z90.79 Acquired absence of other genital organ(s); Z98.890 Other specified postprocedural states; Z88.0 Allergy status to penicillin; Z88.8 Allergy status to other drugs, medicaments and biological substances; Z82.3 Family history of stroke; Z82.49 Family history of ischemic heart disease and other diseases of the circulatory system; Z81.1 Family history of alcohol abuse and dependence; Z82.5 Family history of asthma and other chronic lower respiratory diseases; Z83.3 Family history of diabetes mellitus
CPT/HCPCS: 36415; 74018; 74177; 80053; 82150; 83605; 83690; 83735; 85025; 94640; 96361; 96374; 96375; 99285

== ENCOUNTER 2019-09-05 14:29 | Emergency (ER) | payer OTHER ==
[2019-09-05 14:57] VITALS: RESP 18
[2019-09-05] MEDS ORDERED: CLINDAMYCIN 150 MG CAP PO STA (15:30)
[2019-09-05] MEDS ORDERED: Acetaminophen-Codeine 300-30mg TAB PO STA (15:47)
--- NOTE | 2019-09-05 15:55 | ED ---
General Adult HPI - General Chief complaint: Extremity Problem,Nontraumatic Stated complaint: cellulitis on leg Time Seen by Provider: 09/05/19 15:20 Source: patient, RN notes reviewed, old records reviewed Mode of arrival: ambulatory Limitations: no limitations - History of Present Illness Initial comments: 59-year-old male patient presents to ED chief complaint cellulitis and right lower extremity. Patient did have this approximately 6 weeks ago. Was treated with clindamycin. Patient reports that has returned. Patient reports pain and erythema on the lateral aspect of his right lower extremity. Denies any posterior calf tenderness. Denies any other complaints at this time. Systemic: Pt denies fatigue, fever/chills, rash. Pt denies weakness, night sweats, weight loss. Neuro: Pt denies headache, visual disturbances, syncope or pre-syncope. HEENT: Pt denies ocular discharge or irritation, otalgia, rhinorrhea, pharyngitis or notable lymphadenopathy. Cardiopulmonary: Pt denies chest pain, SOB, heart palpitations, dyspnea on exertion. Abdominal/GI: Pt denies abdominal pain, n/v/d. : Pt denies dysuria, burning w/ urination, frequency/urgency. Denies new onset urinary or bowel incontinence. MSK: Pt denies myalgia, loss of strength or function in extremities. Neuro: Pt denies new onset weakness, paresthesias. - Related Data Home Medications Medication Instructions Recorded Confirmed Cyclobenzaprine [Flexeril] 10 mg PO TID PRN 06/28/16 06/20/19 Lisinopril [Zestril] 20 mg PO DAILY 06/28/16 06/20/19 rOPINIRole HCL [Requip] 1 mg PO BID PRN 06/28/16 06/20/19 Albuterol Inhaler [Ventolin Hfa 2 puff INHALATION RT-Q6H PRN 09/26/16 06/20/19 Inhaler] amLODIPine [Norvasc] 10 mg PO DAILY 09/26/16 06/20/19 Tamsulosin [Flomax] 0.4 mg PO DAILY PRN 06/20/17 06/20/19 Aspirin 81 mg PO DAILY 09/18/17 06/20/19 Gabapentin [Neurontin] 800 mg PO TID 09/18/17 06/20/19 Nicotine 21Mg/24Hr Patch [Habitrol] 1 patch TRANSDERM DAILY 09/18/17 06/20/19 Etodolac [Lodine] 400 mg PO BID 01/12/18 06/20/19 Montelukast [Singulair] 10 mg PO DAILY 01/12/18 06/20/19 Omeprazole [PriLOSEC] 20 mg PO AC-BRKFST 09/12/18 06/20/19 Salmeterol Xinafoate [Serevent 1 puff INHALATION RT-BID 09/12/18 06/20/19 Diskus] oxyCODONE-APAP 10-325MG [Percocet 1 tab PO TID PRN 09/12/18 06/20/19 10-325 mg] Beclomethasone Dip 80 Mcg/Puff 2 puff INHALATION RT-BID 05/20/19 06/20/19 [Qvar 80 mcg] Latanoprost/Pf [Latanoprost 0.005% 1 drop BOTH EYES HS 05/20/19 06/20/19 Eye Drop] Loratadine [Claritin] 10 mg PO DAILY 05/20/19 06/20/19 Previous Rx's Medication Instructions Recorded Clindamycin [Cleocin] 450 mg PO Q8HR 10 Days capsule 09/05/19 Allergies Allergy/AdvReac Type Severity Reaction Status Date / Time amoxicillin trihydrate AdvReac Rapid Verified 09/05/19 14:57 [From Augmentin] Heart Rate potassium clavulanate AdvReac FELT LIKE Verified 09/05/19 14:57 [From Augmentin] HE WAS GOING TO PASS OUT FAST HEARTBEAT" pregabalin [From Lyrica] AdvReac Swelling Verified 09/05/19 14:57 Review of Systems ROS Statement: Those systems with pertinent positive or pertinent negative responses have been documented in the HPI. ROS Other: All systems not noted in ROS Statement are negative. Past Medical History Past Medical History: Coronary Artery Disease (CAD), COPD, Eye Disorder, Fibromyalgia, Hypertension, Myocardial Infarction ([place]), Osteoarthritis (OA), Prostate Disorder, Vascular Disorder Additional Past Medical History / Comment(s): Chronic cough, chronic pancreatitis, past alcohol abuse-pt states occasionally now, bilateral eye glaucoma, neuropathy bilateral feet, poor circulation to legs, varicose veins, RLS, BPH with surgery, colitis, gastritis, Alvarenga's esophagus, shingelles in 2012 and states joint pain since, chronic low back pain, DDD. Last Myocardial Infarction Date:: 09/02/16 History of Any Multi-Drug Resistant Organisms: None Reported Past Surgical History: Appendectomy, Heart Catheterization, Joint Replacement, Orthopedic Surgery, Prostate Surgery Additional Past Surgical History / Comment(s): R knee arthroscopy for torn meniscus, R total knee arthroplasty, EGD, colonoscopy, TURP Past Anesthesia/Blood Transfusion Reactions: No Reported Reaction Past Psychological History: Anxiety, Depression Smoking Status: Current some day smoker Past Alcohol Use History: Occasional Past Drug Use History: None Reported - Past Family History Father Family Medical History: CVA/TIA, Hypertension Additional Family Medical History / Comment(s): Father at the age of 38yrs from HTN/CVA. He was an alcoholic. Mother Family Medical History: COPD, Diabetes Mellitus Additional Family Medical History / Comment(s): Mother of emphysema at the age of 74 yrs (2003), mom has hx of drinking and smoking General Exam - General Exam Comments Initial Comments: Constitutional: NAD, AOX3, Pt has pleasant affect. HEENT: NC/AT, trachea midline, neck supple, no lymphadenopathy. Posterior pharynx non erythematous, without exudates. External ears appear normal, without discharge. Mucous membranes moist. Eyes PERRLA, EOM intact. There is no scleral icterus. No pallor noted. Cardiopulmonary: RRR, no murmurs, rubs or gallops, no JVD noted. Lungs CTAB in anterior and posterior brown. No peripheral edema. Abdominal exam: Abdomen soft and non-distended. Abdomen non-tender to palpation in all 4 quadrants. Bowel sounds active in LLQ. No hepatosplenomegaly. No ecchy mosis Neuro: CN II-XII grossly intact. No nuchal rigidity. No raccon eyes, no carolina sign, no hemotympanum. No cervical spinal tenderness. MSK: Cellulitis noted to lateral aspect of right lower extremity as well as mild amount of dorsal aspect to right foot. No posterior calf tenderness bilaterally, homans sign negative bilaterally. Posterior tibialis and radial pulse +2 bilaterally. Sensation intact in upper and lower extremities. Full active ROM in upper and lower extremities, 5/5 stregnth. Limitations: no limitations Course Vital Signs 09/05/19 14:54 Temperature 97.9 F Pulse Rate 84 Respiratory 18 Rate Blood Pressure 116/75 O2 Sat by Pulse 97 Oximetry Medical Decision Making - Medical Decision Making 59-year-old male patient presents to ED chief complaint cellulitis and right lower extremity. Patient did have this approximately 6 weeks ago. Was treated with clindamycin. Patient reports that has returned. Patient reports pain and erythema on the lateral aspect of his right lower extremity. Denies any posterior calf tenderness. Denies any other complaints at this time. 59-year-old male patient with CVG complaining of right lower extremity cellulitis. Physical exam didn't display psoas and right lower extremity. Plain film of to be fibula/foot was negative for any gas. Patient will be treated on outpatient basis with clindamycin instructions and precautions and close outpatient follow-up with primary care provider. Case discussed with Dr. Edwards. Disposition Clinical Impression: Cellulitis Disposition: HOME SELF-CARE Condition: Stable Instructions (If sedation given, give patient instructions): Cellulitis (ED) Additional Instructions: Take antibiotics as directed. Follow-up with primary care provider tomorrow. Return immediately to the ER if condition worsens in any way. Prescriptions: Clindamycin [Cleocin] 450 mg PO Q8HR 10 Days capsule Is patient prescribed a controlled substance at d/c from ED?: No Referrals: Albert Chavez MD [Primary Care Provider] - 1-2 days
--- NOTE | 2019-09-05 16:30 | XR ---
EXAMINATION TYPE: XR foot complete RT DATE OF EXAM: 09/05/2019 CLINICAL HISTORY: pain TECHNIQUE: Frontal, lateral and oblique images of the right foot are obtained. COMPARISON: None. FINDINGS: There is no acute fracture/dislocation evident. The joint spaces appear within normal lopez its. Soft tissue swelling overlying the dorsum of the foot which may reflect cellulitis or could be p osttraumatic in nature. Correlate clinically. IMPRESSION: There is no acute fracture or dislocation. ICD 10 NO FRACTURE, INITIAL EVALUATION
--- NOTE | 2019-09-05 16:31 | XR ---
EXAMINATION TYPE: XR tibia fibula RT DATE OF EXAM: 09/05/2019 CLINICAL HISTORY: pain TECHNIQUE: AP and lateral images of the right tibia and fibula are obtained. COMPARISON: None. FINDINGS: There is no acute fracture/dislocation evident. The joint spaces appear within normal lopez its. Soft tissue swelling overlying the lateral malleolar region. IMPRESSION: There is no acute fracture or dislocation seen. ICD 10 NO FRACTURE, INITIAL EVALUATION
[2019-09-05 16:59] VITALS: BP 106/69; PULSE 78; TEMP 98.4
== END 2019-09-05 16:50 | disposition home or self-care (01) ==
LOC: EC 14:29
DX: L03.115 Cellulitis of right lower limb (principal); I25.10 Atherosclerotic heart disease of native coronary artery without angina pectoris; J44.9 Chronic obstructive pulmonary disease, unspecified; M79.7 Fibromyalgia; I10 Essential (primary) hypertension; I25.2 Old myocardial infarction; M19.90 Unspecified osteoarthritis, unspecified site; N40.0 Benign prostatic hyperplasia without lower urinary tract symptoms; G25.81 Restless legs syndrome; H40.9 Unspecified glaucoma; F17.200 Nicotine dependence, unspecified, uncomplicated; Z95.818 Presence of other cardiac implants and grafts; Z96.651 Presence of right artificial knee joint; Z79.82 Long term (current) use of aspirin; Z79.1 Long term (current) use of non-steroidal anti-inflammatories (NSAID); Z79.51 Long term (current) use of inhaled steroids; Z79.891 Long term (current) use of opiate analgesic; Z79.899 Other long term (current) drug therapy; Z88.0 Allergy status to penicillin; Z88.8 Allergy status to other drugs, medicaments and biological substances
CPT/HCPCS: 99283

== ENCOUNTER 2019-09-06 16:01 | Emergency (ER) | payer OTHER ==
[2019-09-06 16:05] VITALS: BP 134/78; PULSE 91; RESP 18; TEMP 97.8
--- NOTE | 2019-09-06 16:33 | ED ---
Lower Extremity Injury HPI - General Chief Complaint: Extremity Injury, Lower Stated Complaint: Cellulitis Time Seen by Provider: 09/06/19 16:10 Source: patient Mode of arrival: ambulatory Limitations: no limitations - History of Present Illness Initial Comments: 59-year-old male patient presents to the emergency department today for evaluation of redness and swelling to the right lower leg. States has had symptoms for the last 3-4 days. Patient states he was seen and evaluated here yesterday and diagnosed with cellulitis. Patient states when he woke today his symptoms were worse. States the redness seems to have spread and he is having more swelling to the foot. States he has taken only 3 doses of the antibiotic that he was prescribed. He denies any fever or chills. Denies nausea or vomiting. Patient denies any recent rash, shortness breath, chest pain, abdominal pain, diarrhea, constipation, back pain, numbness, tingling, dizziness, weakness, hematuria, dysuria, urinary urgency, urinary frequency, headache, visual changes, or any other complaints. - Related Data Home Medications Medication Instructions Recorded Confirmed Cyclobenzaprine [Flexeril] 10 mg PO TID PRN 06/28/16 06/20/19 Lisinopril [Zestril] 20 mg PO DAILY 06/28/16 06/20/19 rOPINIRole HCL [Requip] 1 mg PO BID PRN 06/28/16 06/20/19 Albuterol Inhaler [Ventolin Hfa 2 puff INHALATION RT-Q6H PRN 09/26/16 06/20/19 Inhaler] amLODIPine [Norvasc] 10 mg PO DAILY 09/26/16 06/20/19 Tamsulosin [Flomax] 0.4 mg PO DAILY PRN 06/20/17 06/20/19 Aspirin 81 mg PO DAILY 09/18/17 06/20/19 Gabapentin [Neurontin] 800 mg PO TID 09/18/17 06/20/19 Nicotine 21Mg/24Hr Patch [Habitrol] 1 patch TRANSDERM DAILY 09/18/17 06/20/19 Etodolac [Lodine] 400 mg PO BID 01/12/18 06/20/19 Montelukast [Singulair] 10 mg PO DAILY 01/12/18 06/20/19 Omeprazole [PriLOSEC] 20 mg PO -BRKFST 09/12/18 06/20/19 Salmeterol Xinafoate [Serevent 1 puff INHALATION RT-BID 09/12/18 06/20/19 Diskus] oxyCODONE-APAP 10-325MG [Percocet 1 tab PO TID PRN 09/12/18 06/20/19 10-325 mg] Beclomethasone Dip 80 Mcg/Puff 2 puff INHALATION RT-BID 05/20/19 06/20/19 [Qvar 80 mcg] Latanoprost/Pf [Latanoprost 0.005% 1 drop BOTH EYES HS 05/20/19 06/20/19 Eye Drop] Loratadine [Claritin] 10 mg PO DAILY 05/20/19 06/20/19 Previous Rx's Medication Instructions Recorded Clindamycin [Cleocin] 450 mg PO Q8HR 10 Days capsule 09/05/19 Allergies Allergy/AdvReac Type Severity Reaction Status Date / Time amoxicillin trihydrate AdvReac Rapid Verified 09/06/19 16:02 [From Augmentin] Heart Rate potassium clavulanate AdvReac FELT LIKE Verified 09/06/19 16:02 [From Augmentin] HE WAS GOING TO PASS OUT FAST HEARTBEAT" pregabalin [From Lyrica] AdvReac Swelling Verified 09/06/19 16:02 Review of Systems ROS Statement: Those systems with pertinent positive or pertinent negative responses have been documented in the HPI. ROS Other: All systems not noted in ROS Statement are negative. Past Medical History Past Medical History: Coronary Artery Disease (CAD), COPD, Eye Disorder, Fibromyalgia, Hypertension, Myocardial Infarction ([place]), Osteoarthritis (OA), Prostate Disorder, Vascular Disorder Additional Past Medical History / Comment(s): Chronic cough, chronic pancreatitis, past alcohol abuse-pt states occasionally now, bilateral eye glaucoma, neuropathy bilateral feet, poor circulation to legs, varicose veins, RLS, BPH with surgery, colitis, gastritis, Alvarenga's esophagus, shingelles in 2013 and states joint pain since, chronic low back pain, DDD. Last Myocardial Infarction Date:: 09/02/16 History of Any Multi-Drug Resistant Organisms: None Reported Past Surgical History: Appendectomy, Heart Catheterization, Joint Replacement, Orthopedic Surgery, Prostate Surgery Additional Past Surgical History / Comment(s): R knee arthroscopy for torn meniscus, R total knee arthroplasty, EGD, colonoscopy, TURP Past Anesthesia/Blood Transfusion Reactions: No Reported Reaction Past Psychological History: Anxiety, Depression Smoking Status: Current every day smoker Past Alcohol Use History: Occasional Past Drug Use History: None Reported - Past Family History Father Family Medical History: CVA/TIA, Hypertension Additional Family Medical History / Comment(s): Father at the age of 38yrs from HTN/CVA. He was an alcoholic. Mother Family Medical History: COPD, Diabetes Mellitus Additional Family Medical History / Comment(s): Mother of emphysema at the age of 74 yrs (2003), mom has hx of drinking and smoking General Exam Limitations: no limitations General appearance: alert, in no apparent distress, other (This is a well- developed, well-nourished adult male patient in no acute distress. Vital signs upon presentation are temperature 97.8F, pulse 91, respirations 18, blood pressure 134/78, pulse ox 95% on room air.) Eye exam: Present: normal appearance, PERRL, EOMI. Absent: scleral icterus, conjunctival injection, periorbital swelling ENT exam: Present: normal exam, normal oropharynx, mucous membranes moist Respiratory exam: Present: normal lung sounds bilaterally. Absent: respiratory distress, wheezes, rales, rhonchi, stridor Cardiovascular Exam: Present: regular rate, normal rhythm, normal heart sounds. Absent: systolic murmur, diastolic murmur, rubs, gallop, clicks GI/Abdominal exam: Present: soft, normal bowel sounds. Absent: distended, tenderness, guarding, rebound, rigid Extremities exam: Present: full ROM, normal capillary refill, other (Right dorsal foot swelling and erythema. Patch of redness noted to the right lateral calf. 2+ pitting edema. No wound or drainage noted. ). Absent: tenderness, pedal edema, joint swelling, calf tenderness Neurological exam: Present: alert, oriented X3, CN II-XII intact Psychiatric exam: Present: normal affect, normal mood Skin exam: Present: warm, dry, intact, normal color. Absent: rash Course Vital Signs 09/06/19 16:02 Temperature 97.8 F Pulse Rate 91 Respiratory 18 Rate Blood Pressure 134/78 O2 Sat by Pulse 95 Oximetry Medical Decision Making - Medical Decision Making 59-year-old male patient presented to the emergency department today for reevaluation of cellulitis of the right lower leg. Physical examination did reveal erythema and swelling to the dorsal aspect of the right foot and to the lateral aspect of the right calf. Lines were drawn around the cellulitis, there is extension approximately 0.5 cm past the drawn region. Patient has only taken 3 doses of his antibiotic medication, which is clindamycin 450 mg 3 times daily. I did discuss that symptoms may worsen slightly prior to antibiotic onset of action. He will be discharged to continue his antibiotic regimen. He is instructed to follow up with his primary care physician for recheck in 1-2 days. Return parameters were discussed in detail. He verbalizes understanding and agrees with this plan. Disposition Clinical Impression: Cellulitis of right lower extremity Disposition: HOME SELF-CARE Condition: Good Instructions (If sedation given, give patient instructions): Cellulitis (ED) Additional Instructions: Complete antibiotic prescription in full. Follow-up with your primary care physician for recheck in 1-2 days. Return to the emergency department immediately for any new, worsening, or concerning symptoms. Is patient prescribed a controlled substance at d/c from ED?: No Referrals: Albert Chavez MD [Primary Care Provider] - 1-2 days Time of Disposition: 16:33
== END 2019-09-06 16:45 | disposition home or self-care (01) ==
LOC: EC 16:01
DX: L03.115 Cellulitis of right lower limb (principal); I25.10 Atherosclerotic heart disease of native coronary artery without angina pectoris; J44.9 Chronic obstructive pulmonary disease, unspecified; I10 Essential (primary) hypertension; I25.2 Old myocardial infarction; K22.70 Barrett's esophagus without dysplasia; M19.90 Unspecified osteoarthritis, unspecified site; F17.200 Nicotine dependence, unspecified, uncomplicated; Z79.82 Long term (current) use of aspirin; Z79.899 Other long term (current) drug therapy; Z88.0 Allergy status to penicillin; Z88.1 Allergy status to other antibiotic agents; Z88.8 Allergy status to other drugs, medicaments and biological substances; Z96.651 Presence of right artificial knee joint
CPT/HCPCS: 99283

== ENCOUNTER 2019-11-11 23:22 | Inpatient (IN) | payer OTHER ==
[2019-11-11] MEDS ORDERED: SODIUM CHLORIDE 0.9% 1,000 ML IV STA (23:44)
[2019-11-11] MEDS ORDERED: SODIUM CHLORIDE 0.9% 500 ML 500 ML IV STA (23:44)
[2019-11-11] MEDS ORDERED: ONDANSETRON 4 MG/2 ML VIAL IVP STA (23:44)
[2019-11-11] MEDS ORDERED: MORPHINE SULFATE 4 MG/ML SYRINGE IV STA (23:44)
[2019-11-12 00:07] LABS: Basophils # (A) 0.1 k/uL (0-0.2); Basophils % (A) 1 %; Eosinophils # (A) 0.3 k/uL (0-0.7); Eosinophils % (A) 3 %; HCT 42.9 % (39.0-53.0); HGB 14.5 gm/dL (13.0-17.5); Lymphocytes # (A) 2.4 k/uL (1.0-4.8); Lymphocytes % (A) 22 %; MCH 31.9 pg (25.0-35.0); MCHC 33.8 g/dL (31.0-37.0); MCV 94.3 fL (80.0-100.0); Mean Platelet Volume 6.9; Monocytes # (A) 0.5 k/uL (0-1.0); Monocytes % (A) 5 %; Neutrophils # (A) 7.4 k/uL (1.3-7.7); Neutrophils % (A) 67 %; Platelet Count 336 k/uL (150-450); RBC 4.55 m/uL (4.30-5.90); RDW 14.1 % (11.5-15.5)
[2019-11-12 00:24] LABS: ALT 28 U/L (4-49); AST 35 U/L (17-59); African American GFR (CKD) 55 (>60 ml/min/1.73 sqM); Albumin 4.1 g/dL (3.5-5.0); Alkaline Phosphatase 68 U/L (38-126); Anion Gap 11 mmol/L; Blood Urea Nitrogen 15 mg/dL (9-20); Calcium 8.8 mg/dL (8.4-10.2); Carbon Dioxide 20 mmol/L (22-30); Chloride 102 mmol/L (98-107); Glucose 107 mg/dL (74-99); Non-African American GFR(CKD) 48 (>60 ml/min/1.73 sqM); Potassium 4.4 mmol/L (3.5-5.1); Sodium 133 mmol/L (137-145); Total Bilirubin 0.5 mg/dL (0.2-1.3); Total Protein 6.9 g/dL (6.3-8.2)
--- NOTE | 2019-11-12 00:30 | ED ---
General Adult HPI - General Chief complaint: Abdominal Pain Stated complaint: abd pain Time Seen by Provider: 11/11/19 23:33 Source: patient, family, RN notes reviewed, old records reviewed Mode of arrival: ambulatory Limitations: no limitations - History of Present Illness Initial comments: 59-year-old male patient past medical history significant for alcohol pancreatitis, COPD, coronary artery disease been significant complaint of epigastric abdominal pain. Patient reports that he has been drinking alcohol and feels that he has pancreatitis again. States that it feels identical negative times in the past. Once nausea without emesis. Denies any other complaints. Denies any cough, fever, exposure known coronavirus patient. Systemic: Pt denies fatigue, fever/chills, rash. Pt denies weakness, night sweats, weight loss. Neuro: Pt denies headache, visual disturbances, syncope or pre-syncope. HEENT: Pt denies ocular discharge or irritation, otalgia, rhinorrhea, pharyngitis or notable lymphadenopathy. Cardiopulmonary: Pt denies chest pain, SOB, heart palpitations, dyspnea on exertion. Abdominal/GI: Pt denies vomiting or diarrhea. : Pt denies dysuria, burning w/ urination, frequency/urgency. Denies new onset urinary or bowel incontinence. MSK: Pt denies myalgia, loss of strength or function in extremities. Neuro: Pt denies new onset weakness, paresthesias. - Related Data Home Medications Medication Instructions Recorded Confirmed Cyclobenzaprine [Flexeril] 10 mg PO TID PRN 06/28/16 06/20/19 Lisinopril [Zestril] 20 mg PO DAILY 06/28/16 06/20/19 rOPINIRole HCL [Requip] 1 mg PO BID PRN 06/28/16 06/20/19 Albuterol Inhaler [Ventolin Hfa 2 puff INHALATION RT-Q6H PRN 09/26/16 06/20/19 Inhaler] amLODIPine [Norvasc] 10 mg PO DAILY 09/26/16 06/20/19 Tamsulosin [Flomax] 0.4 mg PO DAILY PRN 06/20/17 06/20/19 Aspirin 81 mg PO DAILY 09/18/17 06/20/19 Gabapentin [Neurontin] 800 mg PO TID 09/18/17 06/20/19 Nicotine 21Mg/24Hr Patch [Habitrol] 1 patch TRANSDERM DAILY 09/18/17 06/20/19 Etodolac [Lodine] 400 mg PO BID 01/12/18 06/20/19 Montelukast [Singulair] 10 mg PO DAILY 01/12/18 06/20/19 Omeprazole [PriLOSEC] 20 mg PO AC-BRKFST 09/12/18 06/20/19 Salmeterol Xinafoate [Serevent 1 puff INHALATION RT-BID 09/12/18 06/20/19 Diskus] oxyCODONE-APAP 10-325MG [Percocet 1 tab PO TID PRN 09/12/18 06/20/19 10-325 mg] Beclomethasone Dip 80 Mcg/Puff 2 puff INHALATION RT-BID 05/20/19 06/20/19 [Qvar 80 mcg] Latanoprost/Pf [Latanoprost 0.005% 1 drop BOTH EYES HS 05/20/19 06/20/19 Eye Drop] Loratadine [Claritin] 10 mg PO DAILY 05/20/19 06/20/19 Previous Rx's Medication Instructions Recorded Clindamycin [Cleocin] 450 mg PO Q8HR 10 Days capsule 09/05/19 Allergies Allergy/AdvReac Type Severity Reaction Status Date / Time amoxicillin trihydrate AdvReac Rapid Verified 09/06/19 16:02 [From Augmentin] Heart Rate potassium clavulanate AdvReac FELT LIKE Verified 09/06/19 16:02 [From Augmentin] HE WAS GOING TO PASS OUT FAST HEARTBEAT" pregabalin [From Lyrica] AdvReac Swelling Verified 09/06/19 16:02 Review of Systems ROS Statement: Those systems with pertinent positive or pertinent negative responses have been documented in the HPI. ROS Other: All systems not noted in ROS Statement are negative. Past Medical History Past Medical History: Coronary Artery Disease (CAD), COPD, Eye Disorder, Fibromyalgia, Hypertension, Myocardial Infarction ([place]), Osteoarthritis (OA), Prostate Disorder, Vascular Disorder Additional Past Medical History / Comment(s): Chronic cough, chronic pancreatitis, past alcohol abuse-pt states occasionally now, bilateral eye glaucoma, neuropathy bilateral feet, poor circulation to legs, varicose veins, RLS, BPH with surgery, colitis, gastritis, Alvarenga's esophagus, shingelles in 2012 and states joint pain since, chronic low back pain, DDD. Last Myocardial Infarction Date:: 09/02/16 History of Any Multi-Drug Resistant Organisms: None Reported Past Surgical History: Appendectomy, Heart Catheterization, Joint Replacement, Orthopedic Surgery, Prostate Surgery Additional Past Surgical History / Comment(s): R knee arthroscopy for torn meniscus, R total knee arthroplasty, EGD, colonoscopy, TURP Past Anesthesia/Blood Transfusion Reactions: No Reported Reaction Past Psychological History: Anxiety, Depression Smoking Status: Current every day smoker Past Alcohol Use History: Daily Past Drug Use History: None Reported - Past Family History Father Family Medical History: CVA/TIA, Hypertension Additional Family Medical History / Comment(s): Father at the age of 38yrs from HTN/CVA. He was an alcoholic. Mother Family Medical History: COPD, Diabetes Mellitus Additional Family Medical History / Comment(s): Mother of emphysema at the age of 74 yrs (2003), mom has hx of drinking and smoking General Exam - General Exam Comments Initial Comments: Constitutional: NAD, AOX3, Pt has pleasant affect. HEENT: NC/AT, trachea midline, neck supple, no lymphadenopathy. Posterior pharynx non erythematous, without exudates. External ears appear normal, without discharge. Mucous membranes moist. Eyes PERRLA, EOM intact. There is no scleral icterus. No pallor noted. Cardiopulmonary: RRR, no murmurs, rubs or gallops, no JVD noted. Lungs CTAB in anterior and posterior brown. No peripheral edema. Abdominal exam: Abdomen soft and non-distended. Abdomen mildly tender to palpation epigastric region.. Bowel sounds active in LLQ. No hepatosplenomegaly. No ecchymosis Neuro: CN II-XII grossly intact. No nuchal rigidity. No raccon eyes, no carolina sign, no hemotympanum. No cervical spinal tenderness. MSK: No posterior calf tenderness bilaterally, homans sign negative bilaterally. Posterior tibialis and radial pulse +2 bilaterally. Sensation intact in upper and lower extremities. Full active ROM in upper and lower extremities, 5/5 stregnth. Limitations: no limitations Course Vital Signs 11/11/19 11/12/19 23:25 01:15 Temperature 98 F 97.9 F Pulse Rate 78 70 Respiratory 18 20 Rate Blood Pressure 110/67 95/74 O2 Sat by Pulse 98 93 L Oximetry Medical Decision Making - Medical Decision Making 59-year-old male patient past medical history significant for alcohol pancreatitis, COPD, coronary artery disease been significant complaint of epigastric abdominal pain. Patient reports that he has been drinking alcohol and feels that he has pancreatitis again. States that it feels identical negative times in the past. Once nausea without emesis. Denies any other complaints. Denies any cough, fever, exposure known coronavirus patient. Patient vital signs are stable, afebrile. Physical exam displayed epigastric tenderness. Laboratory investigations revealed elevated lipase and amylase. Alcohol is also elevated. EKG didn't display short WI, prolonged QTC. QT prolonging agents will be avoided. Patient will be admitted for alcoholic pancreatitis, nothing by mouth, IV hydration, analgesia. Case discussed with Dr. Aburto. - Lab Data Result diagrams: 11/11/19 23:51 11/11/19 23:51 Lab Results 11/11/19 11/11/19 11/11/19 Range/Units 23:51 23:51 23:51 WBC 11.0 H (3.8-10.6) k/uL RBC 4.55 (4.30-5.90) m/uL Hgb 14.5 (13.0-17.5) gm/dL Hct 42.9 (39.0-53.0) % MCV 94.3 (80.0-100.0) fL MCH 31.9 (25.0-35.0) pg MCHC 33.8 (31.0-37.0) g/dL RDW 14.1 (11.5-15.5) % Plt Count 336 (150-450) k/uL Neutrophils % 67 % Lymphocytes % 22 % Monocytes % 5 % Eosinophils % 3 % Basophils % 1 % Neutrophils # 7.4 (1.3-7.7) k/uL Lymphocytes # 2.4 (1.0-4.8) k/uL Monocytes # 0.5 (0-1.0) k/uL Eosinophils # 0.3 (0-0.7) k/uL Basophils # 0.1 (0-0.2) k/uL Sodium 133 L (137-145) mmol/L Potassium 4.4 (3.5-5.1) mmol/L Chloride 102 (98-107) mmol/L Carbon Dioxide 20 L (22-30) mmol/L Anion Gap 11 mmol/L BUN 15 (9-20) mg/dL Creatinine 1.57 H (0.66-1.25) mg/dL Est GFR (CKD-EPI)AfAm 55 (>60 ml/min/1.73 sqM) Est GFR (CKD-EPI)NonAf 48 (>60 ml/min/1.73 sqM) Glucose 107 H (74-99) mg/dL Plasma Lactic Acid Carlos Manuel 1.7 (0.7-2.0) mmol/L Calcium 8.8 (8.4-10.2) mg/dL Total Bilirubin 0.5 (0.2-1.3) mg/dL AST 35 (17-59) U/L ALT 28 (4-49) U/L Alkaline Phosphatase 68 (38-126) U/L Total Protein 6.9 (6.3-8.2) g/dL Albumin 4.1 (3.5-5.0) g/dL Amylase 2017 H* (30-110) U/L Lipase >30860 H (23-300) U/L Serum Alcohol mg/dL 11/11/19 Range/Units 23:51 WBC (3.8-10.6) k/uL RBC (4.30-5.90) m/uL Hgb (13.0-17.5) gm/dL Hct (39.0-53.0) % MCV (80.0-100.0) fL MCH (25.0-35.0) pg MCHC (31.0-37.0) g/dL RDW (11.5-15.5) % Plt Count (150-450) k/uL Neutrophils % % Lymphocytes % % Monocytes % % Eosinophils % % Basophils % % Neutrophils # (1.3-7.7) k/uL Lymphocytes # (1.0-4.8) k/uL Monocytes # (0-1.0) k/uL Eosinophils # (0-0.7) k/uL Basophils # (0-0.2) k/uL Sodium (137-145) mmol/L Potassium (3.5-5.1) mmol/L Chloride (98-107) mmol/L Carbon Dioxide (22-30) mmol/L Anion Gap mmol/L BUN (9-20) mg/dL Creatinine (0.66-1.25) mg/dL Est GFR (CKD-EPI)AfAm (>60 ml/min/1.73 sqM) Est GFR (CKD-EPI)NonAf (>60 ml/min/1.73 sqM) Glucose (74-99) mg/dL Plasma Lactic Acid Carlos Manuel (0.7-2.0) mmol/L Calcium (8.4-10.2) mg/dL Total Bilirubin (0.2-1.3) mg/dL AST (17-59) U/L ALT (4-49) U/L Alkaline Phosphatase (38-126) U/L Total Protein (6.3-8.2) g/dL Albumin (3.5-5.0) g/dL Amylase (30-110) U/L Lipase (23-300) U/L Serum Alcohol 126 mg/dL - EKG Data -: EKG Interpreted by Me (and Dr. Aburto) EKG Comments: Ventricular rate 75, painful 80, QRS 134, QT/QTc 462/515. Sinus rhythm with shor t WI. Nonspecific intraventricular block. Abnormal EKG. Prolonged QT. No concern for acute ischemia at this time. Disposition Clinical Impression: Alcoholic pancreatitis Disposition: ADMITTED IP TO THIS HOSP Condition: Serious Is patient prescribed a controlled substance at d/c from ED?: No Referrals: Albert Chavez MD [Primary Care Provider] - 1-2 days
[2019-11-12 00:33] LABS: Amylase 2017 U/L (30-110)
[2019-11-12] MEDS ORDERED: HYDROmorphone 0.5 MG/0.5 ML SYRINGE IVP STA ×2 (01:02→01:33)
[2019-11-12] MEDS ORDERED: SODIUM CHLORIDE 0.9% 1,000 ML IV ONE (01:04)
[2019-11-12] MEDS: SODIUM CHLORIDE 0.9% 1,000 ML IV SCH ×6 (01:08→19:56)
[2019-11-12] MEDS ORDERED: NALOXONE 0.4 MG/ML 1 ML VIAL IV PRN (01:35)
[2019-11-12 02:39] LABS: Appearance,Urine Clear (Clear); Bilirubin,Urine 1+ (Negative); Blood,Urine Negative (Negative); Color,Urine Yellow; Glucose,Urine (UA) Negative (Negative); Ketones,Urine Negative (Negative); Leukocyte Esterase,Urine Negative (Negative); Nitrite,Urine Negative (Negative); PH, Urine 5.5 (5.0-8.0); Protein,Urine Negative (Negative); Specific Gravity,Urine 1.008 (1.001-1.035); Urobilinogen,Urine <2.0 mg/dL (<2.0)
[2019-11-12 02:52] LABS: Amphetamine Screen,Urine Not Detected (NotDetected); Barbiturate Screen,Urine Not Detected (NotDetected); Benzodiazepines Screen,Urine Not Detected (NotDetected); Cocaine Screen,Urine Not Detected (NotDetected); Methadone Screen, Urine Not Detected (NotDetected); Opiate Screen,Urine Detected (NotDetected); Oxycodone Screen, Urine Detected (NotDetected); Phencyclidine Screen,Urine Not Detected (NotDetected); Tricyclic Antidepressant,Urine Detected (NotDetected); Urn Cannabinoid Scrn Not Detected (NotDetected)
[2019-11-12] MEDS: HYDROmorphone 0.5 MG/0.5 ML SYRINGE IM PRN ×4 (04:43→17:40)
[2019-11-12 07:24] LABS: Basophils % (A) 1 %; Eosinophils # (A) 0.2 k/uL (0-0.7); Eosinophils % (A) 3 %; HCT 40.4 % (39.0-53.0); HGB 13.2 gm/dL (13.0-17.5); Lymphocytes # (A) 1.3 k/uL (1.0-4.8); Lymphocytes % (A) 22 %; MCH 31.1 pg (25.0-35.0); MCHC 32.6 g/dL (31.0-37.0); MCV 95.2 fL (80.0-100.0); Mean Platelet Volume 7.3; Monocytes # (A) 0.3 k/uL (0-1.0); Monocytes % (A) 6 %; Neutrophils # (A) 3.8 k/uL (1.3-7.7); Neutrophils % (A) 66 %; Platelet Count 256 k/uL (150-450); RBC 4.25 m/uL (4.30-5.90); WBC 5.7 k/uL (3.8-10.6)
[2019-11-12 07:32] LABS: African American GFR (CKD) >90 (>60 ml/min/1.73 sqM); Anion Gap 3 mmol/L; Blood Urea Nitrogen 14 mg/dL (9-20); Carbon Dioxide 23 mmol/L (22-30); Chloride 109 mmol/L (98-107); Glucose 95 mg/dL (74-99); Non-African American GFR(CKD) 81 (>60 ml/min/1.73 sqM); Potassium 4.6 mmol/L (3.5-5.1); Sodium 135 mmol/L (137-145)
[2019-11-12] MEDS ORDERED: ONDANSETRON 4 MG/2 ML VIAL IVP PRN (09:10)
[2019-11-12] MEDS: PANTOPRAZOLE 40 MG/10 ML VIAL IVP SCH ×2 (09:52→19:56)
[2019-11-12] MEDS ORDERED: CYCLOBENZAPRINE 10 MG TAB PO PRN (10:43)
[2019-11-12] MEDS ORDERED: TAMSULOSIN 0.4 MG CAP.ER.24H PO PRN (10:43)
[2019-11-12] MEDS ORDERED: NON FORMULARY DRUG (Omeprazole 20 MG) PO SCH (10:45)
[2019-11-12] MEDS: GABAPENTIN 400 MG CAP PO SCH ×3 (11:14→20:00)
[2019-11-12] MEDS: LISINOPRIL 20 MG TAB PO SCH (11:14)
[2019-11-12] MEDS: amLODIPine 10 MG TAB PO SCH (11:14)
[2019-11-12] MEDS: MONTELUKAST 10 MG TAB PO SCH (11:14)
[2019-11-12] MEDS: FLUoxetine HCL 20 MG CAP PO SCH (11:14)
[2019-11-12] MEDS: NICOTINE 21MG/24HR PATCH TRANSDERM SCH (11:15)
[2019-11-12] MEDS: FORMOTEROL FUMARATE 20 MCG/2 ML NEBU INHALATION SCH ×2 (15:45→18:58)
--- NOTE | 2019-11-12 16:13 | CONS ---
CONSULTATION DATE OF DICTATION: 11/12/2019 REASON FOR CONSULTATION: Chronic relapsing pancreatitis. HISTORY OF PRESENTING ILLNESS: The patient is a 59-year-old pleasant white male with multiple hospitalizations over the last one year, history of significant alcohol use with prior history of multiple GI bleeds and alcoholic related pancreatitis, admitted to the hospital with acute onset of severe epigastric pain that started yesterday morning. The pain continued to progressively get worse, associated with some nausea and vomiting, and he came into the emergency room and was noted to have elevated lipase consistent with acute pancreatitis. This morning he is feeling better. He denies any cough, fever, chills or night sweats. He has been drinking actively until being admitted to the hospital. Last episode of pancreatitis was a couple of years ago. PAST MEDICAL HISTORY: Hypertension, alcoholic liver disease with prior history of esophageal variceal bleeding, alcohol-related pancreatitis, COPD and hypertension. HOME MEDICATIONS: Zestril, Requip, Ventolin, Norvasc, Flomax, Neurontin, Habitrol, Lodine, Singulair, Prilosec, Serevent, Claritin. PAST SURGICAL HISTORY: Cardiac catheterization, appendectomy, right knee arthroscopy, multiple EGDs and colonoscopies in the past. FAMILY HISTORY: Father had CVA and hypertension. Mother had diabetes mellitus and COPD. REVIEW OF SYSTEMS: CARDIOPULMONARY: He denies any chest pain or shortness of breath. GENITOURINARY: No dysuria or hematuria. MUSCULOSKELETAL: Unremarkable. SKIN: Unremarkable. ENDOCRINE: Unremarkable. PSYCHIATRIC: Unremarkable. NEUROLOGY: Unremarkable. ENT/VISION: Unremarkable. CONSTITUTIONAL: No recent weight loss. No fever, chills, night sweats. ALLERGIES: AUGMENTIN AND LYRICA. PHYSICAL EXAMINATION: He appears comfortable. No apparent distress. Vital signs are stable. Blood pressure is 146/72, pulse rate 81, temperature 98.5. HEENT examination unremarkable. Conjunctivae pink. Sclerae anicteric. Oral cavity no lesions. NECK: No JVD or lymph node enlargement. CHEST: Clear to auscultation. HEART: Regular rate and rhythm. ABDOMEN: Soft. Mild tenderness in the epigastric area. Bowel sounds are positive. No organomegaly. EXTREMITIES: No pedal edema. SKIN: No rashes. NEUROLOGIC: Alert and oriented x3. No focal deficits. LABS: WBC 11, hemoglobin 14.5, platelets normal. Basic metabolic panel is within normal limits. Lipase was more than 20,000 and amylase 2017. Today lipase is down to 5739. ALT, AST, T-bilirubin and alkaline phosphatase are all within normal limits. IMPRESSION: 1. Chronic relapsing pancreatitis secondary to history of heavy alcohol abuse. He had 3 episodes of pancreatitis in the past. The last one was a couple of years ago. He is noted to have elevated lipase consistent with acute exacerbation of chronic pancreatitis. 2. History of heavy alcohol abuse. 3. History of chronic liver disease with cirrhosis and portal hypertension. 4. History of esophageal variceal bleeding in the past. RECOMMENDATIONS: 1. Keep him n.p.o. except ice chips. 2. Pain medications as needed. 3. Continue with Protonix 40 mg daily. 4. Aggressive IV hydration. 5. Repeat labs in the morning, and if they are improving he can be started on a clear liquid diet. We will follow with you closely. Thank you for this consultation. MMJONL / TONYN: [id number] /
[2019-11-12] MEDS: FLUTICASONE 110 MCG INHALER INHALATION SCH (18:55)
--- NOTE | 2019-11-12 19:46 | P.HPIM ---
History of Present Illness H&P Date: 11/12/19 Chief Complaint: Abdominal pain History of presenting complaint: This is a pleasant [address] Chavez. Chronic stable medical conditions include COPD, fibromyalgia, hypertension, Bhavana arthritis, chronic pancreatitis from alcoholism, peripheral neuropathy varicose veins, restless leg syndrome, BPH surgery, Alvarenga's esophagus and chronic low back pain and os teoarthritis. Patient continues to drink about 4-5 beers a day. Presents with worsening epigastric pain. No radiation. Some nausea and did vomit once. No fever no chills. Presently the ER. Greatly elevated lipase. Admitted for the same. Admitted nothing by mouth. . Review of systems: GEN.: Tired EYES: None HEENT: None NECK: None RESPIRATORY: Occasional shortness of breath CARDIOVASCULAR: None GASTROINTESTINAL: As above GENITOURINARY: None MUSCULOSKELETAL: Joint pains LYMPHATICS: None HEMATOLOGICAL: None PSYCHIATRY: None NEUROLOGICAL: Numbness in both the legs Social history: Patient lives with his sister Scott May sometime uses a cane. Smoked for close to 42 years. Stopped in 2017-smoking occasionally now.. Drinking alcohol for years. Stopped for a short time. At about 4-5 beers a day. Physical examination: VITAL SIGNS: 97.5, 82, 20, 126/68, 92% on room air GENERAL: BMI 30, laying in bed, tired EYES: Pupils equal. Conjunctiva normal. HEENT: External appearance of nose and ears normal, oral cavity grossly normal. NECK: JVD not raised; masses not palpable. HEART: First and second heart sounds are normal; minimal edema. LUNGS: Respiratory rate increased, diminished breath sounds. Some wheezing ABDOMEN: Soft, epigastric tenderness, no guarding or rigidity, liver spleen not palpable, no masses palpable. PSYCH: Alert and oriented x3; mood and affect slightly anxious NEUROLOGICAL: Cranial nerves grossly intact; no facial asymmetry, power and sensation grossly intact. LYMPHATICS: No lymph nodes palpable in the axilla and neck INVESTIGATIONS, reviewed in the clinical context: White count 11 hemoglobin 40.5 potassium 4.4 creatinine 1.57 Amylase 2017 lipase more than 20, 000 EKG tracing personally reviewed by me-sinus rhythm Assessment: -Acute severe pancreatitis in a patient with known chronic pancreatitis from alcoholism -Acute COPD exacerbation in a occasional smoker -Chronic fibromyalgia -Essential hypertension -Primary osteoarthritis -Alcoholic peripheral neuropathy -restless leg syndrome -Alvarenga's esophagus Plan: Patient was made nothing by mouth any treatment. Lipase started to come down. We'll try the patient on ice chips. Home medications resumed. GI was consulted. Question answered. Past Medical History Past Medical History: Coronary Artery Disease (CAD), COPD, Eye Disorder, F ibromyalgia, Hypertension, Myocardial Infarction ([place]), Osteoarthritis (OA), Prostate Disorder, Vascular Disorder Additional Past Medical History / Comment(s): Chronic cough, chronic pancreatitis, past alcohol abuse-pt states occasionally now, bilateral eye glaucoma, neuropathy bilateral feet, poor circulation to legs, varicose veins, RLS, BPH with surgery, colitis, gastritis, Alvarenga's esophagus, shingles in 2013 and states joint pain since, chronic low back pain, DDD. Last Myocardial Infarction Date:: 09/02/16 History of Any Multi-Drug Resistant Organisms: None Reported Past Surgical History: Appendectomy, Heart Catheterization, Joint Replacement, Orthopedic Surgery, Prostate Surgery Additional Past Surgical History / Comment(s): R knee arthroscopy for torn meniscus, knee replacement; R total knee arthroplasty, EGD, colonoscopy, TURP Past Anesthesia/Blood Transfusion Reactions: No Reported Reaction Past Psychological History: Anxiety, Depression Additional Psychological History / Comment(s): Pt resides with his sister Ewelina. He uses a cane prn. He does not have a courtesy driver's license. He gets places by Ewelina driving. Smoking Status: Current some day smoker Past Alcohol Use History: Daily Additional Past Alcohol Use History / Comment(s): Pt started smoking at age 13, quit smoking 10/2016, but has an occasional cigarette or 2 in a week. Pt has hx of alcohol abuse but states now he drinks on occasion only. (06/20/2019) - pt states he has been using nicotine patches to help stop smoking, has been rec ently trying to stop Past Drug Use History: None Reported Additional Drug Use History / Comment(s): Past cocaine use, pt states its been a few years since he used. - Past Family History Father Family Medical History: CVA/TIA, Hypertension Additional Family Medical History / Comment(s): Father at the age of 38yrs from HTN/CVA. He was an alcoholic. Mother Family Medical History: COPD, Diabetes Mellitus Additional Family Medical History / Comment(s): Mother of emphysema at the age of 74 yrs (2003), mom has hx of drinking and smoking Medications and Allergies Home Medications Medication Instructions Recorded Confirmed Type Cyclobenzaprine [Flexeril] 10 mg PO TID PRN 06/28/16 11/12/19 History Lisinopril [Zestril] 20 mg PO DAILY 06/28/16 11/12/19 History rOPINIRole HCL [Requip] 1 mg PO BID PRN 06/28/16 11/12/19 History Albuterol Inhaler [Ventolin Hfa 2 puff INHALATION RT-Q6H PRN 09/26/16 11/12/19 History Inhaler] amLODIPine [Norvasc] 10 mg PO DAILY 09/26/16 11/12/19 History Tamsulosin [Flomax] 0.4 mg PO DAILY PRN 06/20/17 11/12/19 History Aspirin 81 mg PO DAILY 09/18/17 11/12/19 History Gabapentin [Neurontin] 800 mg PO TID 09/18/17 11/12/19 History Nicotine 21Mg/24Hr Patch [Habitrol] 1 patch TRANSDERM DAILY 09/18/17 11/12/19 History Etodolac [Lodine] 400 mg PO BID 01/12/18 11/12/19 History Montelukast [Singulair] 10 mg PO DAILY 01/12/18 11/12/19 History Omeprazole [PriLOSEC] 20 mg PO AC-BRKFST 09/12/18 11/12/19 History Salmeterol Xinafoate [Serevent 1 puff INHALATION RT-BID 09/12/18 11/12/19 History Diskus] oxyCODONE-APAP 10-325MG [Percocet 1 tab PO TID PRN 09/12/18 11/12/19 History 10-325 mg] Beclomethasone Dip 80 Mcg/Puff 2 puff INHALATION RT-BID 05/20/19 11/12/19 History [Qvar 80 mcg] Latanoprost/Pf [Latanoprost 0.005% 1 drop BOTH EYES HS 05/20/19 11/12/19 History Eye Drop] Loratadine [Claritin] 10 mg PO DAILY 05/20/19 11/12/19 History Albuterol Nebulized [Ventolin 2.5 mg INHALATION RT-Q6H PRN 11/12/19 11/12/19 History Nebulized] FLUoxetine HCL [PROzac] 20 mg PO DAILY 11/12/19 11/12/19 History Allergies Allergy/AdvReac Type Severity Reaction Status Date / Time amoxicillin trihydrate AdvReac Rapid Verified 11/12/19 09:47 [From Augmentin] Heart Rate potassium clavulanate AdvReac FELT LIKE Verified 11/12/19 09:47 [From Augmentin] HE WAS GOING TO PASS OUT FAST HEARTBEAT" pregabalin [From Lyrica] AdvReac Swelling Verified 11/12/19 09:47 Physical Exam Vitals: Vital Signs Temp Pulse Pulse Resp BP BP BP 11/12/19 14:28 98.5 F 81 16 146/72 11/12/19 04:35 97.5 F L 82 20 126/68 11/12/19 02:42 97.6 F 76 20 139/85 11/12/19 02:05 99/60 11/12/19 01:15 97.9 F 70 20 95/74 11/11/19 23:25 98 F 78 18 110/67 Pulse Ox 11/12/19 14:28 95 11/12/19 04:35 92 L 11/12/19 02:42 96 11/12/19 02:05 11/12/19 01:15 93 L 11/11/19 23:25 98 Intake and Output 11/12/19 11/12/19 11/12/19 06:59 14:59 22:59 Intake Total 0 Balance 0 Intake: Oral 0 Other: # Voids 0 3 Weight 100.244 kg Results CBC & Chem 7: 11/12/19 07:05 11/12/19 07:05 Labs: Abnormal Lab Results - Last 24 Hours (Table) 11/11/19 11/11/19 11/12/19 Range/Units 23:51 23:51 02:32 WBC 11.0 H (3.8-10.6) k/uL RBC (4.30-5.90) m/uL Sodium 133 L (137-145) mmol/L Chloride (98-107) mmol/L Carbon Dioxide 20 L (22-30) mmol/L Creatinine 1.57 H (0.66-1.25) mg/dL Glucose 107 H (74-99) mg/dL Calcium (8.4-10.2) mg/dL Amylase 2017 H* (30-110) U/L Lipase >38044 H (23-300) U/L Urine Bilirubin 1+ H (Negative) Urine Opiates Screen Detected H (NotDetected) Ur Oxycodone Screen Detected H (NotDetected) U Tricyclic Antidepress Detected H (NotDetected) 11/12/19 11/12/19 Range/Units 07:05 07:05 WBC (3.8-10.6) k/uL RBC 4.25 L (4.30-5.90) m/uL Sodium 135 L (137-145) mmol/L Chloride 109 H (98-107) mmol/L Carbon Dioxide (22-30) mmol/L Creatinine (0.66-1.25) mg/dL Glucose (74-99) mg/dL Calcium 8.0 L (8.4-10.2) mg/dL Amylase (30-110) U/L Lipase 5739 H (23-300) U/L Urine Bilirubin (Negative) Urine Opiates Screen (NotDetected) Ur Oxycodone Screen (NotDetected) U Tricyclic Antidepress (NotDetected) Thrombosis Risk Factor Assmnt - Choose All That Apply Any of the Below Risk Factors Present?: Yes Each Factor Represents 1 point: Abnormal pulmonary function (COPD), Age 41-60 years, Obesity (BMI >25) Other Risk Factors: No Thrombosis Risk Factor Assessment Total Risk Factor Score: 3 Thrombosis Risk Factor Assessment Level: Moderate Risk
[2019-11-12] MEDS: oxyCODONE-APAP 10-325MG 1 EACH TAB PO PRN (19:57)
[2019-11-12] MEDS: LATANOPROST 0.005% OPHTH DROPS 2.5 ML BTL BOTH EYES SCH (20:58)
[2019-11-13] MEDS: SODIUM CHLORIDE 0.9% 1,000 ML IV SCH ×5 (00:39→19:59)
[2019-11-13] MEDS: HYDROmorphone 0.5 MG/0.5 ML SYRINGE IM PRN (05:17)
[2019-11-13] MEDS: amLODIPine 10 MG TAB PO SCH (07:30)
[2019-11-13] MEDS: PANTOPRAZOLE 40 MG/10 ML VIAL IVP SCH ×2 (07:30→19:58)
[2019-11-13] MEDS: NICOTINE 21MG/24HR PATCH TRANSDERM SCH (07:30)
[2019-11-13] MEDS: FLUoxetine HCL 20 MG CAP PO SCH (07:30)
[2019-11-13] MEDS: LORATADINE 10 MG TAB PO SCH (07:30)
[2019-11-13] MEDS: LISINOPRIL 20 MG TAB PO SCH (07:30)
[2019-11-13] MEDS: MONTELUKAST 10 MG TAB PO SCH (07:30)
[2019-11-13] MEDS: GABAPENTIN 400 MG CAP PO SCH ×3 (07:31→19:59)
[2019-11-13] MEDS: oxyCODONE-APAP 10-325MG 1 EACH TAB PO PRN ×3 (07:50→22:43)
[2019-11-13 07:57] LABS: ALT 25 U/L (4-49); AST 28 U/L (17-59); African American GFR (CKD) >90 (>60 ml/min/1.73 sqM); Albumin 3.5 g/dL (3.5-5.0); Alkaline Phosphatase 71 U/L (38-126); Amylase 56 U/L (30-110); Anion Gap 8 mmol/L; Blood Urea Nitrogen 10 mg/dL (9-20); Calcium 8.6 mg/dL (8.4-10.2); Carbon Dioxide 23 mmol/L (22-30); Chloride 102 mmol/L (98-107); Glucose 91 mg/dL (74-99); Non-African American GFR(CKD) >90 (>60 ml/min/1.73 sqM); Potassium 4.3 mmol/L (3.5-5.1); Sodium 133 mmol/L (137-145); Total Bilirubin 0.7 mg/dL (0.2-1.3); Total Protein 6.3 g/dL (6.3-8.2)
[2019-11-13] MEDS: ALBUTEROL NEBULIZED 2.5 MG/3 ML INHALATION PRN ×2 (08:30→19:59)
[2019-11-13] MEDS: FORMOTEROL FUMARATE 20 MCG/2 ML NEBU INHALATION SCH ×2 (08:31→19:59)
[2019-11-13] MEDS: FLUTICASONE 110 MCG INHALER INHALATION SCH ×2 (08:31→19:59)
[2019-11-13] MEDS: THIAMINE 100 MG TAB PO SCH (13:34)
[2019-11-13] MEDS: CLINDAMYCIN 150 MG CAP PO SCH ×3 (13:34→22:08)
--- NOTE | 2019-11-13 13:45 | US ---
EXAMINATION TYPE: US venous doppler duplex LE RT DATE OF EXAM: 11/13/2019 1:03 PM COMPARISON: US 05/20/2019 CLINICAL HISTORY: r/o dvt. Right leg pain x 5 days, patient taking aspirin, exam done portable. SIDE PERFORMED: Right TECHNIQUE: The lower extremity deep venous system is examined utilizing real time linear array sonog miguel a with graded compression, doppler sonography and color-flow sonography. VESSELS IMAGED: External Iliac Vein (EIV) Common Femoral Vein Deep Femoral Vein Greater Saphenous Vein * Femoral Vein Popliteal Vein Small Saphenous Vein * Proximal Calf Veins (* superficial vessels) Grayscale, color doppler, spectral doppler imaging performed of the deep veins of the lower extremiti es. There is normal flow, compressibility, vascular waveforms. Right Leg: Appears negative for DVT IMPRESSION: No sonographic evidence of deep venous thrombosis within the visualized right lower extr emity.
[2019-11-13] MEDS ORDERED: SERTRALINE 50 MG TAB PO SCH (14:15)
--- NOTE | 2019-11-13 14:24 | P.CN ---
Psychiatric Consult - . Consult date: 11/13/19 Consult:: 11/13/19 14:14 IDENTIFYING DATA: This patient is a 59-year-old male with a chronic history of alcohol abuse and pancreatitis who lives in a house with his sister has no kids is collection Social Security HISTORY OF PRESENT ILLNESS: The patient presented to the hospital with complaints of relapse in drinking and epigastric pain nausea and concerns of possible pancreatitis. Patient was found to have lipase level greater than 20,000 and amylase level of 2017. Patient's LFTs were within normal limits and blood alcohol level was 126 on admission. Patient was admitted to the medical floors for treatment of pancreatitis and psychiatry is consulted for alcohol dependence. Patient was seen at the bedside resting comfortably and appeared to have a bright affect. He spoke of drinking alcohol "almost my whole life" and spoke about not wanting to quit. He minimized his use of alcohol and denied any history of withdrawals or seizures or delirium tremens in the past. He states that "I like beer, the taste of it" and states that lately he's been drinking more as he has not been working. He spoke about future oriented and having things to do over the spring and the summer and cleaning his house. He denied any depression at this time and claims his mood is "fine" and states that his sleep is well and has fair appetite. He believes that peanuts were the cause of his pancreatitis episodes and did not think that he had a problem with alcohol or that alcohol contributed to his medical problems.. At this time patient denies any suicidal or homical ideations, intent or plan. Patient denies any auditory, visual hallucinations and denies any paranoia or delusions. Patients admits to using alcohol approximately 4-5 drinks a day of beer. Patient claims that he's been to rehab several times in the past and also outpatient AA meetings however has not helped him. He admits to cigarette use daily. He denies any other recreational drug use. PAST PSYCHIATRIC HISTORY: He has a history of depression and anxiety and is on Prozac 20 mg however states that it has not been helping his anxiety. He states that he does have an outpatient psychiatrist however states that he does not receive medications from him. He denies any mental health admissions in the past. He denies any suicide attempts in the past. PAST MEDICAL HISTORY: COPD, fibromyalgia, hypertension, osteoarthritis, chronic pancreatitis, restless leg syndrome, Alvarenga's esophagus. ALLERGIES: as per EMR. CHEMICAL DEPENDENCY HISTORY: as per HPI. FAMILY PSYCHIATRIC/SUBSTANCE USE HISTORY: States that his mother and father both had problems with alcohol abuse. SOCIAL HISTORY: He claims that he is born and raised in [place] and moved to [place] and has been there since. 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 He denies having any kids he claims is and lives in a house with his sister. He is currently unemployed and collects Social Security. He denied any legal problems. MENTAL STATUS EXAM: General Appearance: Patient appears to be older than stated age is obese, alert, pleasant, and cooperative. Patient appears to have poor hygiene and grooming wearing hospital gown with fair eye contact. Behavior: Patient is calmly lying in bed without any agitated behavior. Attempts to cooperate however minimizes his alcohol use. Speech: Patient's speech is fluent and nonpressured. Mood/Affect: Patient reports their mood is "fine", affect is congruent with bright affect. Suicidality/Homicidality: Patient denies having any suicidal or homicidal ideation intent or plan. Perceptions: Patient denies any visual hallucinations and denies any auditory hallucinations Though content/process: There is no evidence of any delusional thought content and thought process is linear and goal-directed. Patient minimizes alcohol use, guarded and evasive. Memory and concentration: AOX3, grossly intact for the purposes of this session. Can spell "WORLD" backwards Judgment and insight: Chronically poor IMPRESSIONS: Alcohol dependence, severe Anxiety disorder unspecified Nicotine dependence PLAN: -At this time patient DOES NOT meet criteria for inpatient psychiatric admission. -Would recommend the following medication changes/additions: Discontinued Prozac at this time due to ineffectiveness and started patient on Zoloft 2 mg daily to help target mood and anxiety symptoms. Discussed with patient at length about medication options for alcohol cravings including naltrexone or acamprosate and patient declined at this time. 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 Spoke with patient in great length about his alcohol abuse and the effects on his mental health along with his physical health, and patient did not seem concerned. -Psychiatry will sign off at this point, please contact with any questions.
--- NOTE | 2019-11-13 15:04 | PN ---
PROGRESS NOTE DATE OF DICTATION: 11/13/2019 Patient is a 59-year-old pleasant white male with history of heavy alcohol abuse, admitted to the hospital with chronic relapsing pancreatitis. He is feeling better today. He still has mild epigastric pain. He was started on a clear liquid diet, tolerating well. He denies any nausea, vomiting, and reports no other symptoms. PHYSICAL EXAMINATION: Appears comfortable, in no apparent distress. Vital signs are stable. Blood pressure 112/86, pulse rate 78, and temperature 98. HEENT: Examination unremarkable, conjunctivae are pink, sclerae nonicteric, oral cavity no lesions. NECK: No JVD or lymph node enlargement. CHEST: Clear to auscultation. HEART: Regular rate and rhythm. ABDOMEN: Soft. Minimal tenderness in the epigastric area. Bowel sounds are positive. No organomegaly. EXTREMITIES: No pedal edema. SKIN: No rashes. NEUROLOGIC: Alert and oriented x3. No focal deficits. LABS: From today, amylase and lipase are normal at 56 and 171 respectively. Basic metabolic panel is normal. IMPRESSION: 1. Chronic relapsing pancreatitis secondary to heavy alcohol abuse, symptoms significantly improved. Amylase and lipase have normalized. 2. History of heavy alcohol abuse. 3. Longstanding history of gastroesophageal reflux disease. RECOMMENDATION: 1. Advance to low-fat diet. 2. Continue with Protonix 40 mg twice daily. 3. Abstinence from alcohol. 4. He can be discharged home today or tomorrow with outpatient followup in 2 weeks. Thank you for this consultation. MMODL / IJN: [id number] /
[2019-11-13] MEDS: chlordiazePOXIDE 25 MG CAP PO SCH ×2 (15:40→19:58)
[2019-11-13] MEDS: LATANOPROST 0.005% OPHTH DROPS 2.5 ML BTL BOTH EYES SCH (19:58)
--- NOTE | 2019-11-13 23:16 | CONS ---
CONSULTATION DATE OF SERVICE: 11/13/2019 REASON FOR CONSULTATION: Right lower extremity cellulitis. HISTORY OF PRESENT ILLNESS: The patient is a 59-year-old male with a past medical history significant for alcohol pancreatitis, COPD, coronary artery disease, presenting to the ER two days ago with chief complaint of epigastric abdominal pain. Apparently the patient has been drinking heavily and felt like pancreatitis was coming back. The patient did have nausea but no vomiting and denies having any diarrhea. With these symptoms, the patient was evaluated in the ER. The patient on arrival in the ER was afebrile and remains afebrile. The patient did have mildly elevated white count of 11,000 which subsequently normalized. He was noticed to have lipase of more than 20,000; repeat 5739 and this morning it was 171. He did have amylase of 2017, down to 56. Urine drug screen was positive for opiates, oxycodone and tricyclic. The patient has been managed by GI Services and the patient's abdominal pain is currently improved. The patient has been complaining of pain, some swelling and redness to the right lower leg and ankle area; apparently the patient did have previous history of cellulitis at that site, with concern for the same. The patient did have a lower extremity Doppler that was negative for DVT. The patient was started on clindamycin, and Infectious Disease was consulted for further recommendations regarding antibiotic therapy. REVIEW OF SYSTEMS: Positive points have been mentioned in HPI. Rest of the systems are negative. PAST MEDICAL HISTORY: Significant for recurrent pancreatitis, alcohol-related, alcohol liver disease hypertension, COPD. PAST SURGICAL HISTORY: PTCA, appendectomy, right knee arthroscopy, multiple EGDs and colonoscopy in the past. SOCIAL HISTORY: Positive for heavy drinking. Denies smoking or drug use. FAMILY HISTORY: Mother with diabetes, COPD. Father with history of CVA and hypertension. ALLERGIES: AUGMENTIN and LYRICA. MEDICATIONS: Medications currently include Ventolin, Norvasc, librium, clindamycin, Flexeril, Flovent, Neurontin, Zestril, Claritin, Singulair, Narcan, nicotine patch, Percocet, Protonix, Requip, Zoloft, Flomax. PHYSICAL EXAMINATION: Blood pressure is 147/81 with a pulse of 72, temperature 98.4. He is 95% on room air. General description is a middle-aged male lying in bed in no distress. No tachypnea or accessory muscle of respiration use. HEENT examination shows no pallor or scleral icterus. Oral mucosa membrane is dry. No pharyngeal erythema or thrush. NECK: Trachea is central. No thyromegaly. LUNGS: Unlabored breathing. Clear to auscultation anteriorly. HEART: S1, S2. Regular rate and rhythm. ABDOMEN: Soft. Mildly distended. No guarding. No rigidity. No organomegaly. Right lower extremity just above the ankle area with minimal swelling, slightly warm to touch. There was no open wound or any drainage. Neurologically the patient is awake, alert, oriented x3. Mood and affect normal. LABS: Hemoglobin is 13.2, white count 5.7. Admission white count was 11 with a BUN of 10, creatinine 0.70. Lipase and amylase have normalized. No cultures on this admission. DIAGNOSTIC IMPRESSION AND PLAN: 1. Patient with mild pain and swelling to the right lower leg with concern for possible mild cellulitis, possibly from Gram-positive skin tarsha such as strep; less likely Gram-negative infection. 2. Patient with ANTIBIOTIC ALLERGY that will limit the number of antibiotics safe to use. PLAN: 1. Will consider a short course of oral clindamycin 300 mg p.o. q.8 hours. 2. Patient advised to increase his probiotic and yogurt intake. 3. Will reevaluate the patient tomorrow and adjust antibiotic further if needed. Thank you for this consultation. Will follow this patient along with you. MMODL / IJN: [id number] /
--- NOTE | 2019-11-13 23:27 | P.PN ---
Subjective History of presenting complaint: This is a pleasant [address] Chavez. Chronic stable medical conditions include COPD, fibromyalgia, hypertension, Bhavana arthritis, chronic pancreatitis from alcoholism, peripheral neuropathy varicose veins, restless leg syndrome, BPH surgery, Alvarenga's esophagus and chronic low back pain and osteoa rthritis. Patient continues to drink about 4-5 beers a day. Presents with worsening epigastric pain. No radiation. Some nausea and did vomit once. No fever no chills. Presently the ER. Greatly elevated lipase. Admitted for the same. Admitted nothing by mouth. 11/13/19 Patient is fully awake and oriented, he looks, and not in distress, he looks pleasant, his abdominal pain is significantly improved, no nausea vomiting and is tolerating diet well, no change in bowel habits, patient thinks his pancreatitis is improved and he does not need to be in the hospital for this reason. However patient complaining of from redness and pain with tenderness in his right leg, no significant swelling, no fungal infection is noted between toes however he has a callus on his right big toe with dressing in place, patient refused to be examined and take the dressing off Patient states that he drinks about 4-6 beers every day, he was drinking just before coming to the hospital and his alcohol level on admission was about 126 Patient has been evaluated by GI team cleared him for discharge as per staff, however patient needs to send the hospital for his right leg cellulitis, odontogenic Doppler, start clindamycin and call infectious disease consult. Also will call psych consult for his depression and alcohol problem Review of systems CONSTITUTIONAL: No fever, no malaise, no fatigue. HEENT: No recent visual problems or hearing problems. Denied any sore throat. CARDIOVASCULAR: No orthopnea, PND, no palpitations, no syncope. PULMONARY: No shortness of breath, no cough, no hemoptysis. GASTROINTESTINAL: No diarrhea, no nausea, no vomiting, no abdominal pain. Normoactive bowel sounds. NEUROLOGICAL: No headaches, no weakness, no numbness. HEMATOLOGICAL: Denies any bleeding or petechiae. GENITOURINARY: Denies any burning micturition, frequency, or urgency. MUSCULOSKELETAL/RHEUMATOLOGICAL: Denies any joint pain, swelling, or any muscle pain. ENDOCRINE: Denies any polyuria or polydipsia. Active Medications Generic Name Dose Route Start Last Admin Trade Name Freq PRN Reason Stop Dose Admin Albuterol Sulfate 2.5 mg 11/12/19 10:43 11/13/19 19:59 Ventolin Nebulized INHALATION 2.5 mg RT-Q6H PRN Administration Shortness Of Breath Amlodipine Besylate 10 mg 11/12/19 10:45 11/13/19 07:30 Norvasc PO 10 mg DAILY CHEYANNE Administration Chlordiazepoxide HCl 25 mg 11/13/19 16:00 11/13/19 19:58 Librium PO 25 mg TID CHEYANNE Administration Clindamycin HCl 300 mg 11/13/19 22:01 11/13/19 22:07 Cleocin PO 300 mg Q8H CHEYANNE Administration Cyclobenzaprine HCl 10 mg 11/12/19 10:43 11/12/19 11:14 Flexeril PO 10 mg TID PRN Administration Muscle Spasm Fluticasone Propionate 2 puff 11/12/19 20:00 11/13/19 19:59 Flovent 110 Mcg Inhaler INHALATION 2 puff RT-BID CHEYANNE Administration Formoterol Fumarate 20 mcg 11/12/19 11:30 11/13/19 19:59 Perforomist INHALATION 20 mcg RT-BID CHEYANNE Administration Gabapentin 800 mg 11/12/19 10:45 11/13/19 19:59 Neurontin PO 800 mg TID CHEYANNE Administration Sodium Chloride 1,000 mls @ 100 mls/hr 11/12/19 01:15 11/13/19 19:59 Saline 0.9% IV 100 mls/hr .Q10H CHEYANNE Administration Latanoprost 1 drops 11/12/19 21:00 11/13/19 19:58 Xalatan 0.005% BOTH EYES 1 drops HS CHEYANNE Administration Lisinopril 20 mg 11/12/19 10:45 11/13/19 07:30 Zestril PO 20 mg DAILY CHEYANNE Administration Loratadine 10 mg 11/13/19 09:00 11/13/19 07:30 Claritin PO 10 mg DAILY CHEYANNE Administration Montelukast Sodium 10 mg 11/12/19 10:45 11/13/19 07:30 Singulair PO 10 mg DAILY CHEYANNE Administration Naloxone HCl 0.2 mg 11/12/19 01:35 Narcan IV Q2M PRN Opioid Reversal Nicotine 1 patch 11/12/19 10:45 11/13/19 07:30 Habitrol 21mg/24hr Patch TRANSDERM 1 patch DAILY CHEYANNE Administration Ondansetron HCl 4 mg 11/12/19 09:10 Zofran IVP Q6HR PRN Nausea And Vomiting Oxycodone/Acetaminophen 1 each 11/12/19 10:43 11/13/19 22:43 Percocet 10-325 PO 1 each TID PRN Administration Pain Pantoprazole Sodium 40 mg 11/12/19 09:15 11/13/19 19:58 Protonix IVP 40 mg BID CHEYANNE Administration Ropinirole HCl 1 mg 11/12/19 10:43 11/12/19 11:14 Requip PO 1 mg BID PRN Administration RLS Sertraline HCl 50 mg 11/14/19 09:00 Zoloft PO DAILY CHEYANNE Tamsulosin HCl 0.4 mg 11/12/19 10:43 11/12/19 11:14 Flomax PO 0.4 mg DAILY PRN Administration PROSTATE PAIN Thiamine HCl 100 mg 11/13/19 13:15 11/13/19 13:34 Vitamin B-1 PO 100 mg DAILY CHEYANNE Administration Objective - Vital Signs Vital signs: Vital Signs Temp 98.0 F 11/13/19 12:30 Pulse 67 11/13/19 12:30 Resp 16 11/13/19 12:30 BP 162/75 11/13/19 12:30 Pulse Ox 96 11/13/19 12:30 Intake & Output 11/12/19 11/13/19 11/13/19 18:59 06:59 18:59 Intake Total 0 480 Balance 0 480 Intake: Oral 0 480 Other: # Voids 3 2 3 - Exam GENERAL: The patient is alert and oriented x3, not in any acute distress. Well developed, well nourished. HEENT: Pupils are round and equally reacting to light. EOMI. No scleral icterus. No conjunctival pallor. Normocephalic, atraumatic. No pharyngeal erythema. No thyromegaly. CARDIOVASCULAR: S1 and S2 present. No murmurs, rubs, or gallops. PULMONARY: Chest is clear to auscultation, no wheezing or crackles. ABDOMEN: Soft, nontender, nondistended, normoactive bowel sounds. No palpable organomegaly. MUSCULOSKELETAL: No joint swelling or deformity. -EXTREMITIES: No cyanosis, clubbing, or pedal edema. Right leg redness and tenderness, no significant swelling, dressing of the big toe patient refused to be examined stating it has a callus NEUROLOGICAL: Gross neurological examination did not reveal any focal deficits. SKIN: No rashes. no petechiae. - Labs CBC & Chem 7: 11/12/19 07:05 11/13/19 06:39 Labs: Abnormal Lab Results - Last 24 Hours (Table) 11/13/19 Range/Units 06:39 Sodium 133 L (137-145) mmol/L Assessment and Plan Assessment: -Acute severe pancreatitis in a patient with known chronic pancreatitis from alcoholism, improved -Right leg cellulitis -Right leg pain, rule out DVT -Symptomatic depression with no suicidal ideation -COPD not in acute exacerbation -Nicotine dependence -Chronic fibromyalgia -Essential hypertension -Primary osteoarthritis -restless leg syndrome Plan: This is a pleasant 59 years old male who presents with pancreatitis which is resolved. However he has problem of alcohol at risk of withdrawal, right leg pain and cellulitis. Start clindamycin, check Doppler of the lower extremity call infectious disease service and psych consult. Labs and medication were reviewed.. Continue same treatment. Continue with symptomatic treatment. Resume home medication. Monitor lytes and vitals. DVT and GI prophylaxis. Further recommendations of the clinical course of the patient DVT prophylaxis: Subcutaneous heparin GI Prophylaxis: Ppi Prognosis is guarded
[2019-11-14] MEDS: HEPARIN SODIUM,PORCINE 5,000 UNIT/ML 1 ML VIAL SQ SCH ×3 (00:04→20:30)
[2019-11-14] MEDS: oxyCODONE-APAP 10-325MG 1 EACH TAB PO PRN ×3 (05:59→22:19)
[2019-11-14] MEDS: CLINDAMYCIN 150 MG CAP PO SCH ×3 (06:00→20:29)
[2019-11-14] MEDS: FORMOTEROL FUMARATE 20 MCG/2 ML NEBU INHALATION SCH ×2 (07:43→20:45)
[2019-11-14] MEDS: FLUTICASONE 110 MCG INHALER INHALATION SCH ×2 (07:44→20:46)
[2019-11-14 07:52] LABS: ALT 24 U/L (4-49); AST 27 U/L (17-59); African American GFR (CKD) >90 (>60 ml/min/1.73 sqM); Albumin 3.4 g/dL (3.5-5.0); Alkaline Phosphatase 66 U/L (38-126); Anion Gap 8 mmol/L; Blood Urea Nitrogen 8 mg/dL (9-20); Calcium 8.8 mg/dL (8.4-10.2); Carbon Dioxide 24 mmol/L (22-30); Chloride 103 mmol/L (98-107); Glucose 103 mg/dL (74-99); Non-African American GFR(CKD) >90 (>60 ml/min/1.73 sqM); Potassium 4.1 mmol/L (3.5-5.1); Sodium 135 mmol/L (137-145); Total Bilirubin 0.6 mg/dL (0.2-1.3); Total Protein 6.2 g/dL (6.3-8.2)
[2019-11-14] MEDS: LORATADINE 10 MG TAB PO SCH (08:01)
[2019-11-14] MEDS: NICOTINE 21MG/24HR PATCH TRANSDERM SCH (08:01)
[2019-11-14] MEDS: GABAPENTIN 400 MG CAP PO SCH ×3 (08:01→20:30)
[2019-11-14] MEDS: amLODIPine 10 MG TAB PO SCH (08:01)
[2019-11-14] MEDS: MONTELUKAST 10 MG TAB PO SCH (08:01)
[2019-11-14] MEDS: LISINOPRIL 20 MG TAB PO SCH (08:01)
[2019-11-14] MEDS: THIAMINE 100 MG TAB PO SCH (08:01)
[2019-11-14] MEDS: chlordiazePOXIDE 25 MG CAP PO SCH ×2 (08:01→20:30)
[2019-11-14] MEDS: PANTOPRAZOLE 40 MG/10 ML VIAL IVP SCH (08:01)
[2019-11-14] MEDS: SERTRALINE 50 MG TAB PO SCH (08:02)
--- NOTE | 2019-11-14 10:33 | PN ---
PROGRESS NOTE DATE OF DICTATION: 11/14/2019 Patient is a 59-year-old pleasant white male admitted to the hospital with acute abdominal pain and chronic relapsing pancreatitis. He has been doing much better. Amylase and lipase have normalized. Abdominal pain has improved on a low-fat diet, tolerating well. He developed right leg cellulitis and was seen by Dr. Garland yesterday and started on clindamycin. He denies any new complaints today. PHYSICAL EXAMINATION: Appears comfortable, in no apparent distress. Vital signs are stable. Blood pressure is 133/86, pulse 60, temperature 97.5. HEENT: Examination unremarkable, conjunctivae are pink, sclerae nonicteric, oral cavity no lesions. NECK: No JVD or lymph node enlargement. CHEST: Clear to auscultation. HEART: Regular rate and rhythm. ABDOMEN: Soft. Mild tenderness in the epigastric area. Rest of the abdomen is benign. EXTREMITIES: Cellulitis of the right leg. NEUROLOGIC: Alert and oriented x3. No focal deficits. LABS: From today, basic metabolic panel is within normal limits. IMPRESSION: 1. Chronic relapsing pancreatitis with a flare-up. Patient doing much better. Amylase and lipase have normalized and a low-fat diet tolerating well. 2. Heavy alcohol abuse. 3. History of gastrointestinal bleed/severe gastroesophageal reflux disease. 4. Right leg cellulitis, on clindamycin. RECOMMENDATION: 1. Continue with low-fat diet. 2. Protonix 40 mg daily twice daily. 3. Continue antibiotics. 4. The patient can be discharged home from GI point of view. He can follow up in the office in 2-3 weeks. Thank you for this consultation. MMODL / IJN: [id number] /
[2019-11-14] MEDS: SODIUM CHLORIDE 0.9% 1,000 ML IV SCH ×2 (14:02→20:28)
[2019-11-14 14:14] VITALS: RESP 16
--- NOTE | 2019-11-14 14:28 | P.PN ---
Subjective History of presenting complaint: This is a pleasant [address] Chavez. Chronic stable medical conditions include COPD, fibromyalgia, hypertension, Bhavana arthritis, chronic pancreatitis from alcoholism, peripheral neuropathy varicose veins, restless leg syndrome, BPH surgery, Alvarenga's esophagus and chronic low back pain and osteoa rthritis. Patient continues to drink about 4-5 beers a day. Presents with worsening epigastric pain. No radiation. Some nausea and did vomit once. No fever no chills. Presently the ER. Greatly elevated lipase. Admitted for the same. Admitted nothing by mouth. 11/13/19 Patient is fully awake and oriented, he looks, and not in distress, he looks pleasant, his abdominal pain is significantly improved, no nausea vomiting and is tolerating diet well, no change in bowel habits, patient thinks his pancreatitis is improved and he does not need to be in the hospital for this reason. However patient complaining of from redness and pain with tenderness in his right leg, no significant swelling, no fungal infection is noted between toes however he has a callus on his right big toe with dressing in place, patient refused to be examined and take the dressing off Patient states that he drinks about 4-6 beers every day, he was drinking just before coming to the hospital and his alcohol level on admission was about 126 Patient has been evaluated by GI team cleared him for discharge as per staff, however patient needs to send the hospital for his right leg cellulitis, odontogenic Doppler, start clindamycin and call infectious disease consult. Also will call psych consult for his depression and alcohol problem 11/14/19 Patient has limited drowsinees, however he wakes up easily and he is fully awake and oriented, his cellulitis in the right leg is improving as well, Doppler of the lower extremity is negative for DVT, his hyponatremia is improvement with 35, dorsiflexion looks unremarkable, lipase came back to normal at 171-patient is tolerating that well Continue with CIWA protocol, continue with thiamine a normal sling to 50 ml per hour, continue with the clindamycin Possible discharge in 24-48 hours Review of systems CONSTITUTIONAL: No fever, no malaise, no fatigue. HEENT: No recent visual problems or hearing problems. Denied any sore throat. CARDIOVASCULAR: No orthopnea, PND, no palpitations, no syncope. PULMONARY: No shortness of breath, no cough, no hemoptysis. GASTROINTESTINAL: No diarrhea, no nausea, no vomiting, no abdominal pain. Normoactive bowel sounds. NEUROLOGICAL: No headaches, no weakness, no numbness. HEMATOLOGICAL: Denies any bleeding or petechiae. GENITOURINARY: Denies any burning micturition, frequency, or urgency. MUSCULOSKELETAL/RHEUMATOLOGICAL: Denies any joint pain, swelling, or any muscle pain. ENDOCRINE: Denies any polyuria or polydipsia. Active Medications Generic Name Dose Route Start Last Admin Trade Name Freq PRN Reason Stop Dose Admin Albuterol Sulfate 2.5 mg 11/12/19 10:43 11/13/19 19:59 Ventolin Nebulized INHALATION 2.5 mg RT-Q6H PRN Administration Shortness Of Breath Amlodipine Besylate 10 mg 11/12/19 10:45 11/14/19 08:01 Norvasc PO 10 mg DAILY CHEYANNE Administration Chlordiazepoxide HCl 25 mg 11/13/19 16:00 11/14/19 08:01 Librium PO 25 mg TID CHEYANNE Administration Clindamycin HCl 300 mg 11/13/19 22:01 11/14/19 14:01 Cleocin PO 300 mg Q8H CHEYANNE Administration Cyclobenzaprine HCl 10 mg 11/12/19 10:43 11/12/19 11:14 Flexeril PO 10 mg TID PRN Administration Muscle Spasm Fluticasone Propionate 2 puff 11/12/19 20:00 11/14/19 07:44 Flovent 110 Mcg Inhaler INHALATION 2 puff RT-BID CHEYANNE Administration Formoterol Fumarate 20 mcg 11/12/19 11:30 11/14/19 07:43 Perforomist INHALATION 20 mcg RT-BID CHEYANNE Administration Gabapentin 800 mg 11/12/19 10:45 11/14/19 08:01 Neurontin PO 800 mg TID CHEYANNE Administration Heparin Sodium (Porcine) 5,000 unit 11/13/19 23:30 11/14/19 08:03 Heparin SQ 5,000 unit Q12HR CHEYANNE Administration Sodium Chloride 1,000 mls @ 100 mls/hr 11/12/19 01:15 11/14/19 14:02 Saline 0.9% IV 100 mls/hr .Q10H CHEYANNE Administration Latanoprost 1 drops 11/12/19 21:00 11/13/19 19:58 Xalatan 0.005% BOTH EYES 1 drops HS CHEYANNE Administration Lisinopril 20 mg 11/12/19 10:45 11/14/19 08:01 Zestril PO 20 mg DAILY CHEYANNE Administration Loratadine 10 mg 11/13/19 09:00 11/14/19 08:01 Claritin PO 10 mg DAILY CHEYANNE Administration Montelukast Sodium 10 mg 11/12/19 10:45 11/14/19 08:01 Singulair PO 10 mg DAILY CHEYANNE Administration Naloxone HCl 0.2 mg 11/12/19 01:35 Narcan IV Q2M PRN Opioid Reversal Nicotine 1 patch 11/12/19 10:45 11/14/19 08:01 Habitrol 21mg/24hr Patch TRANSDERM 1 patch DAILY CHEYANNE Administration Ondansetron HCl 4 mg 11/12/19 09:10 Zofran IVP Q6HR PRN Nausea And Vomiting Oxycodone/Acetaminophen 1 each 11/12/19 10:43 11/14/19 14:01 Percocet 10-325 PO 1 each TID PRN Administration Pain Pantoprazole Sodium 40 mg 11/14/19 21:00 Protonix PO BID CHEYANNE Ropinirole HCl 1 mg 11/12/19 10:43 11/12/19 11:14 Requip PO 1 mg BID PRN Administration RLS Sertraline HCl 50 mg 11/14/19 09:00 11/14/19 08:02 Zoloft PO 50 mg DAILY CHEYANNE Administration Tamsulosin HCl 0.4 mg 11/12/19 10:43 11/12/19 11:14 Flomax PO 0.4 mg DAILY PRN Administration PROSTATE PAIN Thiamine HCl 100 mg 11/13/19 13:15 11/14/19 08:01 Vitamin B-1 PO 100 mg DAILY CHEYANNE Administration Objective - Vital Signs Vital signs: Vital Signs Temp 97.8 F 11/14/19 12:34 Pulse 90 11/14/19 12:34 Resp 16 11/14/19 12:34 BP 141/83 11/14/19 12:34 Pulse Ox 96 11/14/19 12:34 Intake & Output 11/13/19 11/14/19 11/14/19 18:59 06:59 18:59 Intake Total 960 540 Output Total 1125 Balance 960 -1125 540 Intake: Oral 960 540 Output: Urine 1125 Other: # Voids 3 6 - Exam GENERAL: The patient is alert and oriented x3, not in any acute distress. Well developed, well nourished. HEENT: Pupils are round and equally reacting to light. EOMI. No scleral icterus. No conjunctival pallor. Normocephalic, atraumatic. No pharyngeal erythema. No thyromegaly. CARDIOVASCULAR: S1 and S2 present. No murmurs, rubs, or gallops. PULMONARY: Chest is clear to auscultation, no wheezing or crackles. ABDOMEN: Soft, nontender, nondistended, normoactive bowel sounds. No palpable organomegaly. MUSCULOSKELETAL: No joint swelling or deformity. -EXTREMITIES: No cyanosis, clubbing, or pedal edema. Right leg redness and tenderness, no significant swelling, dressing of the big toe patient refused to be examined stating it has a callus NEUROLOGICAL: Gross neurological examination did not reveal any focal deficits. SKIN: No rashes. no petechiae. - Labs CBC & Chem 7: 11/12/19 07:05 11/14/19 06:27 Labs: Abnormal Lab Results - Last 24 Hours (Table) 11/14/19 Range/Units 06:27 Sodium 135 L (137-145) mmol/L BUN 8 L (9-20) mg/dL Glucose 103 H (74-99) mg/dL Total Protein 6.2 L (6.3-8.2) g/dL Albumin 3.4 L (3.5-5.0) g/dL Assessment and Plan Assessment: -Acute severe pancreatitis in a patient with known chronic pancreatitis from alcoholism, improved -Right leg cellulitis -Right leg pain, rule out DVT -Symptomatic depression with no suicidal ideation -COPD not in acute exacerbation -Nicotine dependence -Chronic fibromyalgia -Essential hypertension -Primary osteoarthritis -restless leg syndrome Plan: This is a pleasant 59 years old male who presents with pancreatitis which is resolved. However he has problem of alcohol at risk of withdrawal, right leg pain and cellulitis. Start clindamycin, check Doppler of the lower extremity call infectious disease service and psych consult. Labs and medication were reviewed.. Continue same treatment. Continue with symptomatic treatment. Resume home medication. Monitor lytes and vitals. DVT and GI prophylaxis. Further recommendations of the clinical course of the patient DVT prophylaxis: Subcutaneous heparin GI Prophylaxis: Ppi Prognosis is guarded
--- NOTE | 2019-11-14 14:45 | PN ---
PROGRESS NOTE DATE OF SERVICE: 11/14/2019 REASON FOR FOLLOWUP: Possible right lower extremity cellulitis. INTERVAL HISTORY: The patient is currently afebrile. The patient has been feeling better today, breathing comfortably. Overall pain and discomfort to the right lower extremity improved. Denies any chest pain, no cough. No abdominal pain, no diarrhea. PHYSICAL EXAMINATION: Blood pressure is 149/77 with a pulse of 74, temperature 97.5. She is 95% on room air. General description is a middle-aged male, lying in bed in no distress. RESPIRATORY SYSTEM: Unlabored breathing, clear to auscultation anteriorly. HEART: S1, S2. Regular rate and rhythm. ABDOMEN: Soft, no tenderness. Right leg minimal swelling. No significant redness, minimal warmth. DIAGNOSTIC IMPRESSION AND PLAN: Patient with concern for right leg pain and concern for possible cellulitis. Plan is for a 5-day course of oral clindamycin and monitor clinical course closely. MMODL / IJN: [id number] /
[2019-11-14] MEDS: PANTOPRAZOLE 40 MG TABLET PO SCH (20:29)
[2019-11-14] MEDS: LATANOPROST 0.005% OPHTH DROPS 2.5 ML BTL BOTH EYES SCH (20:30)
[2019-11-15 05:01] VITALS: BP 148/87; TEMP 97.6
[2019-11-15] MEDS: CLINDAMYCIN 150 MG CAP PO SCH (05:53)
[2019-11-15] MEDS: oxyCODONE-APAP 10-325MG 1 EACH TAB PO PRN (06:01)
[2019-11-15] MEDS: FORMOTEROL FUMARATE 20 MCG/2 ML NEBU INHALATION SCH (07:47)
[2019-11-15] MEDS: FLUTICASONE 110 MCG INHALER INHALATION SCH (07:49)
[2019-11-15 07:57] VITALS: PULSE 70
[2019-11-15] MEDS: MONTELUKAST 10 MG TAB PO SCH (08:00)
[2019-11-15] MEDS: chlordiazePOXIDE 25 MG CAP PO SCH (08:00)
[2019-11-15] MEDS: THIAMINE 100 MG TAB PO SCH (08:00)
[2019-11-15] MEDS: SERTRALINE 50 MG TAB PO SCH (08:00)
[2019-11-15] MEDS: amLODIPine 10 MG TAB PO SCH (08:01)
[2019-11-15] MEDS: LISINOPRIL 20 MG TAB PO SCH (08:01)
[2019-11-15] MEDS: LORATADINE 10 MG TAB PO SCH (08:01)
[2019-11-15] MEDS: NICOTINE 21MG/24HR PATCH TRANSDERM SCH (08:01)
[2019-11-15] MEDS: PANTOPRAZOLE 40 MG TABLET PO SCH (08:01)
[2019-11-15] MEDS: HEPARIN SODIUM,PORCINE 5,000 UNIT/ML 1 ML VIAL SQ SCH (08:01)
[2019-11-15] MEDS: GABAPENTIN 400 MG CAP PO SCH (08:01)
--- NOTE | 2019-11-15 11:17 | P.DS ---
Providers Date of admission: 11/12/19 01:34 Attending physician: Jamal Tamayo Consults: 11/12/19 01:35 Consult Physician Stat Consulting Provider: Laverne Avila Consult Reason/Comments: ETOH pancreatitis Do you want consulting provider notified?: Yes 11/13/19 13:02 Consult Physician Routine Consulting Provider: Pily Garland Consult Reason/Comments: rt leg cellulitis Do you want consulting provider notified?: Yes Consult Physician Urgent Consulting Provider: Grzegorz Simpson Consult Reason/Comments: depression and alcoholism Do you want consulting provider notified?: Yes Primary care physician: Albert Chavez [facility] Course: Diagnoses: -Acute severe pancreatitis in a patient with known chronic pancreatitis from alcoholism, improved -Right leg cellulitis -Right leg pain, rule out DVT -Symptomatic depression with no suicidal ideation -COPD not in acute exacerbation -Nicotine dependence -Chronic fibromyalgia -Essential hypertension -Primary osteoarthritis -restless leg syndrome -History of Alvarenga's esophagus Hospital course: This is a pleasant [address] Chavez. Chronic stable medical conditions include COPD, fibromyalgia, hypertension, Osteoarthritis, chronic pa ncreatitis from alcoholism, peripheral neuropathy varicose veins, restless leg syndrome, BPH surgery, Alvarenga's esophagus and chronic low back pain and osteoarthritis. Patient continues to drink about 4-5 beers a day. Presents with worsening epigastric pain. No radiation. Some nausea and did vomit once. Found to have acute on chronic pancreatitis which was treated with IV fluid, bowel rest and pain medication, rated lipase came back to normal and patient symptoms improved, on the day of discharge patient denies abdominal pain, no nausea vomiting and she is tolerating diet well. Patient also has been evaluated by access lead Dr. Avila in his hospital day and she cleared him for discharge on Protonix twice a day to which patient agrees Patient was treated with CIWA protocol and came in for his alcohol withdrawal, of the of discharge patient shows no signs symptoms of alcohol withdrawal and he does not need any more benzodiazepines. Patient was consult and he agrees to quit drinking alcohol Patient also found to have right leg cellulitis with Doppler negative for DVT. Patient was treated with clindamycin and he showed interval improvement Patient was cleared for discharge by GI and infectious disease team Problems and management plan were discussed with the patient and he verbalized understanding and acceptance Patient was found stable and can be discharged home however he needs follow-up as an outpatient. Patient was instructed to follow up with PCP Dr. Chavez within one week and patient agrees. Also patient consult to follow up with Dr. Avila the access lead in 2-3 weeks and he agrees. Patient wants to make his own appointment Gen: patient is a AAOx3, no distress CVS: S1-S2, RRR, no murmur Lungs: B/L CTA, no wheezing Abdomen: soft, no distention, no tenderness, positive bowel sounds Extremity: no leg edema or induration Time spent more than 35 minutes No fever no chills. Presently the ER. Greatly elevated lipase. Admitted for the same. Admitted nothing by mouth. Patient Condition at Discharge: Serious Plan - Discharge Summary New Discharge Prescriptions: New chlordiazePOXIDE HCL 10 mg PO HS 2 Days #2 cap Clindamycin [Cleocin] 300 mg PO Q8H 5 Days #28 cap Pantoprazole [Protonix] 40 mg PO BID #60 tablet. Thiamine [Vitamin B-1] 100 mg PO DAILY #30 tab Sertraline [Zoloft] 50 mg PO DAILY #30 tab Continue Lisinopril [Zestril] 20 mg PO DAILY rOPINIRole HCL [Requip] 1 mg PO BID PRN PRN Reason: RLS Cyclobenzaprine [Flexeril] 10 mg PO TID PRN PRN Reason: Muscle Spasm Albuterol Inhaler (Bulk) [Ventolin Hfa Inhaler (Bulk)] 2 puff INHALATION RT- Q6H PRN PRN Reason: Shortness Of Breath amLODIPine [Norvasc] 10 mg PO DAILY Tamsulosin [Flomax] 0.4 mg PO DAILY PRN PRN Reason: PROSTATE PAIN Aspirin 81 mg PO DAILY Gabapentin [Neurontin] 800 mg PO TID Nicotine 21Mg/24Hr Patch [Habitrol] 1 patch TRANSDERM DAILY Montelukast [Singulair] 10 mg PO DAILY Etodolac [Lodine] 400 mg PO BID oxyCODONE-APAP 10-325MG [Percocet 10-325 mg] 1 tab PO TID PRN PRN Reason: Pain Salmeterol Xinafoate [Serevent Diskus] 1 puff INHALATION RT-BID Beclomethasone Dip 80 Mcg/Puff [Qvar 80 mcg] 2 puff INHALATION RT-BID Latanoprost/Pf [Latanoprost 0.005% Eye Drop] 1 drop BOTH EYES HS Loratadine [Claritin] 10 mg PO DAILY Albuterol Nebulized [Ventolin Nebulized] 2.5 mg INHALATION RT-Q6H PRN PRN Reason: Shortness Of Breath FLUoxetine HCL [PROzac] 20 mg PO DAILY Discontinued Omeprazole [PriLOSEC] 20 mg PO AC-BRKFST Discharge Medication List Cyclobenzaprine [Flexeril] 10 mg PO TID PRN 06/28/16 [History] Lisinopril [Zestril] 20 mg PO DAILY 06/28/16 [History] rOPINIRole HCL [Requip] 1 mg PO BID PRN 06/28/16 [History] Albuterol Inhaler (Bulk) [Ventolin Hfa Inhaler (Bulk)] 2 puff INHALATION RT-Q6H PRN 09/26/16 [History] amLODIPine [Norvasc] 10 mg PO DAILY 09/26/16 [History] Tamsulosin [Flomax] 0.4 mg PO DAILY PRN 06/20/17 [History] Aspirin 81 mg PO DAILY 09/18/17 [History] Gabapentin [Neurontin] 800 mg PO TID 09/18/17 [History] Nicotine 21Mg/24Hr Patch [Habitrol] 1 patch TRANSDERM DAILY 09/18/17 [History] Etodolac [Lodine] 400 mg PO BID 01/12/18 [History] Montelukast [Singulair] 10 mg PO DAILY 01/12/18 [History] Salmeterol Xinafoate [Serevent Diskus] 1 puff INHALATION RT-BID 09/12/18 [History] oxyCODONE-APAP 10-325MG [Percocet 10-325 mg] 1 tab PO TID PRN 09/12/18 [History] Beclomethasone Dip 80 Mcg/Puff [Qvar 80 mcg] 2 puff INHALATION RT-BID 05/20/19 [History] Latanoprost/Pf [Latanoprost 0.005% Eye Drop] 1 drop BOTH EYES HS 05/20/19 [History] Loratadine [Claritin] 10 mg PO DAILY 05/20/19 [History] Albuterol Nebulized [Ventolin Nebulized] 2.5 mg INHALATION RT-Q6H PRN 11/12/19 [History] FLUoxetine HCL [PROzac] 20 mg PO DAILY 11/12/19 [History] Clindamycin [Cleocin] 300 mg PO Q8H 5 Days #28 cap 11/15/19 [Rx] Pantoprazole [Protonix] 40 mg PO BID #60 tablet. 11/15/19 [Rx] Sertraline [Zoloft] 50 mg PO DAILY #30 tab 11/15/19 [Rx] Thiamine [Vitamin B-1] 100 mg PO DAILY #30 tab 11/15/19 [Rx] chlordiazePOXIDE HCL 10 mg PO HS 2 Days #2 cap 11/15/19 [Rx] Follow up Appointment(s)/Referral(s): Laverne Avila MD [STAFF PHYSICIAN] - 2 Weeks Albert Chavez MD [Primary Care Provider] - 1-2 days Activity/Diet/Wound Care/Special Instructions: Heart healthy diet Activity is limited till you see your doctor we Recommend to avoid drinking alcohol while you taking [employer] depressing medication like narcotics/Percocet and/or benzodiazepine like Librium Discharge Disposition: HOME SELF-CARE
--- NOTE | 2019-11-15 11:19 | PN ---
PROGRESS NOTE DATE OF DICTATION: 11/15/2019 The patient is a the patient is a 59-year-old pleasant white male with history of heavy alcohol abuse, admitted to the hospital with chronic relapsing pancreatitis, which is gradually improving. He is doing better. He developed cellulitis of the right leg and was started on IV clindamycin and is doing much better. He feels that the right foot, leg cellulitis has significantly improved. He denies any abdominal pain. On a regular diet, tolerating well. PHYSICAL EXAMINATION: On physical examination, appears comfortable no apparent distress. Vital signs are stable. Blood pressure 148/87, pulse rate 70, temperature 97.6. HEENT EXAMINATION: Unremarkable. Conjunctivae pink. Sclerae anicteric. Oral cavity no lesions. NECK: No JVD or lymph node enlargement. CHEST: Clear to auscultation. HEART: Regular rate and rhythm. ABDOMEN: Soft. Bowel sounds are positive. No organomegaly. EXTREMITIES: No edema. Cellulitis seems to be improved. LABS: No labs available from today. IMPRESSION: 1. Chronic relapsing pancreatitis secondary to alcohol use, which has significantly improved. Abdominal pain has resolved on a low-fat diet, tolerating well. 2. History of heavy alcohol abuse. 3. Right leg cellulitis, on IV clindamycin, doing better. 4. History of severe gastroesophageal reflux disease, on Protonix 40 mg twice daily. RECOMMENDATIONS: 1. Continue with Protonix 40 mg twice daily. 2. Low-fat diet. 3. Continue antibiotics. 4. Patient advised to follow up in the office in 2 to 3 weeks following discharge from the hospital. Thank you for this consultation. MMODL / IJN: [id number] /
== END 2019-11-15 12:20 | disposition home or self-care (01) | DRG 439 ==
LOC: EC 23:22 → 6NMEDSUR 11-12 01:34
PROVIDERS: ADMIT Hospitalist; ATTEND Hospitalist
DX: K85.20 Alcohol induced acute pancreatitis without necrosis or infection (principal); J44.1 Chronic obstructive pulmonary disease with (acute) exacerbation; K76.6 Portal hypertension; L03.115 Cellulitis of right lower limb; F32.9 Major depressive disorder, single episode, unspecified; F17.200 Nicotine dependence, unspecified, uncomplicated; F41.9 Anxiety disorder, unspecified; G25.81 Restless legs syndrome; G89.29 Other chronic pain; I10 Essential (primary) hypertension; I25.10 Atherosclerotic heart disease of native coronary artery without angina pectoris; M19.91 Primary osteoarthritis, unspecified site; N40.0 Benign prostatic hyperplasia without lower urinary tract symptoms; M79.7 Fibromyalgia; G62.1 Alcoholic polyneuropathy; Z96.651 Presence of right artificial knee joint; M19.90 Unspecified osteoarthritis, unspecified site; K22.70 Barrett's esophagus without dysplasia; K74.60 Unspecified cirrhosis of liver; K70.9 Alcoholic liver disease, unspecified; I83.90 Asymptomatic varicose veins of unspecified lower extremity; F10.20 Alcohol dependence, uncomplicated; K21.9 Gastro-esophageal reflux disease without esophagitis; Z90.49 Acquired absence of other specified parts of digestive tract; Z82.3 Family history of stroke; Z82.49 Family history of ischemic heart disease and other diseases of the circulatory system; I25.2 Old myocardial infarction; Z79.899 Other long term (current) drug therapy; Z79.82 Long term (current) use of aspirin; Z82.5 Family history of asthma and other chronic lower respiratory diseases; Z83.3 Family history of diabetes mellitus; Z90.89 Acquired absence of other organs; Z98.890 Other specified postprocedural states; Z88.1 Allergy status to other antibiotic agents; Z88.8 Allergy status to other drugs, medicaments and biological substances
CPT/HCPCS: 36415; 80048; 80053; 80306; 80320; 81003; 82150; 83605; 83690; 85025; 93005; 94640; 96361; 96374; 96375; 99285

== ENCOUNTER 2019-12-27 12:28 | Emergency (ER) | payer OTHER ==
[2019-12-27 12:34] VITALS: RESP 18; TEMP 97.9
--- NOTE | 2019-12-27 12:50 | ED ---
Lower Extremity Injury HPI - General Chief Complaint: Extremity Injury, Lower Stated Complaint: left leg Blood clot/ sent by pcp Time Seen by Provider: 12/27/19 12:36 Source: patient, family Mode of arrival: wheelchair Limitations: no limitations - History of Present Illness Initial Comments: Patient is a 59-year-old male presenting to the emergency department from ultrasound with finding of an acute DVT in the left lower extremity. Patient states approximately one week ago he hit his anterior lower left leg on the corner [place] his [place] and had a small bump and pain in the area. Patient states he follow-up with his doctor who recommended getting an ultrasound. Ultrasound revealed an acute partial DVT in the popliteal vein, so he was sent to the ER. Patient denies any pain of his left knee. He denies any chest pain, shortness of breath, cough. Denies any recent fever or chills. He denies being on blood thinner. He has no other complaints at this time. - Related Data Home Medications Medication Instructions Recorded Confirmed Cyclobenzaprine [Flexeril] 10 mg PO TID PRN 06/28/16 11/12/19 Lisinopril [Zestril] 20 mg PO DAILY 06/28/16 11/12/19 rOPINIRole HCL [Requip] 1 mg PO BID PRN 06/28/16 11/12/19 Albuterol Inhaler (Mhu) [Ventolin 2 puff INHALATION RT-Q6H PRN 09/26/16 11/12/19 Hfa Inhaler (Mhu)] amLODIPine [Norvasc] 10 mg PO DAILY 09/26/16 11/12/19 Tamsulosin [Flomax] 0.4 mg PO DAILY PRN 06/20/17 11/12/19 Aspirin 81 mg PO DAILY 09/18/17 11/12/19 Gabapentin [Neurontin] 800 mg PO TID 09/18/17 11/12/19 Nicotine 21Mg/24Hr Patch [Habitrol] 1 patch TRANSDERM DAILY 09/18/17 11/12/19 Etodolac [Lodine] 400 mg PO BID 01/12/18 11/12/19 Montelukast [Singulair] 10 mg PO DAILY 01/12/18 11/12/19 Salmeterol Xinafoate [Serevent 1 puff INHALATION RT-BID 09/12/18 11/12/19 Diskus] oxyCODONE-APAP 10-325MG [Percocet 1 tab PO TID PRN 09/12/18 11/12/19 10-325 mg] Beclomethasone Dip 80 Mcg/Puff 2 puff INHALATION RT-BID 05/20/19 11/12/19 [Qvar 80 mcg] Latanoprost/Pf [Latanoprost 0.005% 1 drop BOTH EYES HS 05/20/19 11/12/19 Eye Drop] Loratadine [Claritin] 10 mg PO DAILY 05/20/19 11/12/19 Albuterol Nebulized [Ventolin 2.5 mg INHALATION RT-Q6H PRN 11/12/19 11/12/19 Nebulized] FLUoxetine HCL [PROzac] 20 mg PO DAILY 11/12/19 11/12/19 Previous Rx's Medication Instructions Recorded Clindamycin [Cleocin] 300 mg PO Q8H 5 Days #28 cap 11/15/19 Pantoprazole [Protonix] 40 mg PO BID #60 tablet. 11/15/19 Sertraline [Zoloft] 50 mg PO DAILY #30 tab 11/15/19 Thiamine [Vitamin B-1] 100 mg PO DAILY #30 tab 11/15/19 Apixaban [Eliquis] 0 mg PO DIRECTED #74 tablet 12/27/19 Allergies Allergy/AdvReac Type Severity Reaction Status Date / Time amoxicillin trihydrate AdvReac Rapid Verified 11/12/19 09:47 [From Augmentin] Heart Rate potassium clavulanate AdvReac FELT LIKE Verified 11/12/19 09:47 [From Augmentin] HE WAS GOING TO PASS OUT FAST HEARTBEAT" pregabalin [From Lyrica] AdvReac Swelling Verified 11/12/19 09:47 Review of Systems ROS Statement: Those systems with pertinent positive or pertinent negative responses have been documented in the HPI. ROS Other: All systems not noted in ROS Statement are negative. Past Medical History Past Medical History: Coronary Artery Disease (CAD), COPD, Eye Disorder, Fibromyalgia, Hypertension, Myocardial Infarction ([place]), Osteoarthritis (OA), Prostate Disorder, Vascular Disorder Additional Past Medical History / Comment(s): Chronic cough, chronic campos creatitis, past alcohol abuse-pt states occasionally now, bilateral eye glaucoma, neuropathy bilateral feet, poor circulation to legs, varicose veins, RLS, BPH with surgery, colitis, gastritis, Alvarenga's esophagus, shingles in 2013 and states joint pain since, chronic low back pain, DDD. Last Myocardial Infarction Date:: 09/02/16 History of Any Multi-Drug Resistant Organisms: None Reported Past Surgical History: Appendectomy, Heart Catheterization, Joint Replacement, Orthopedic Surgery, Prostate Surgery Additional Past Surgical History / Comment(s): R knee arthroscopy for torn meniscus, knee replacement; R total knee arthroplasty, EGD, colonoscopy, TURP Past Anesthesia/Blood Transfusion Reactions: No Reported Reaction Past Psychological History: Anxiety, Depression Smoking Status: Current some day smoker Past Alcohol Use History: Daily Past Drug Use History: None Reported - Past Family History Father Family Medical History: CVA/TIA, Hypertension Additional Family Medical History / Comment(s): Father at the age of 38yrs from HTN/CVA. He was an alcoholic. Mother Family Medical History: COPD, Diabetes Mellitus Additional Family Medical History / Comment(s): Mother of emphysema at the age of 74 yrs (2003), mom has hx of drinking and smoking General Exam - General Exam Comments Initial Comments: GENERAL: Well-appearing, well-nourished and in no acute distress. HEAD: Atraumatic, normocephalic. EYES: Pupils equal round and reactive to light, extraocular movements intact, sclera anicteric, conjunctiva are normal. ENT: TMs normal, nares patent, oropharynx clear without exudates. Moist mucous membranes. NECK: Normal range of motion, supple without lymphadenopathy or JVD. LUNGS: Breath sounds clear to auscultation bilaterally and equal. No wheezes rales or rhonchi. HEART: Regular rate and rhythm without murmurs, rubs or gallops. ABDOMEN: Soft, nontender, normoactive bowel sounds. No guarding, no rebound. No masses appreciated. : Deferred EXTREMITIES: Normal range of motion, no pitting or edema. No clubbing or cyanosis. Patient has a very small hematoma of the left lower leg, anterior hawley, near ankle. No other pain in the left lower extremity. He is neurovascular intact. NEUROLOGICAL: Normal speech, normal gait. PSYCH: Normal mood, normal affect. SKIN: Warm, Dry, normal turgor, no rashes or lesions noted. Limitations: no limitations Course Vital Signs 12/27/19 12:29 Temperature 97.9 F Pulse Rate 79 Respiratory 18 Rate Blood Pressure 103/62 O2 Sat by Pulse 95 Oximetry Medical Decision Making - Medical Decision Making Patient is a 59-year-old male sent from ultrasound for a DVT of his left lower extremity. Ultrasound reveals a partially occlusive acute DVT in the popliteal vein and beginning above the knee. He currently has no pain, erythema, or swelling to the area. Lab work shows no acute abnormalities. Patient will be started on eliquis. The first dose given in the ER. Patient was given a coupon book for free 30 days. Patient is stable for discharge. He will follow back up with his PCP. Patient is agreement with this plan of care. Return parameters were discussed with the patient and he verbalized understanding. Case discussed with Dr. Gonzalez. - Lab Data Result diagrams: 12/27/19 12:50 12/27/19 12:50 Lab Results 12/27/19 12/27/19 12/27/19 Range/Units 12:50 12:50 12:50 WBC 5.8 (3.8-10.6) k/uL RBC 4.21 L (4.30-5.90) m/uL Hgb 13.3 (13.0-17.5) gm/dL Hct 41.1 (39.0-53.0) % MCV 97.5 (80.0-100.0) fL MCH 31.6 (25.0-35.0) pg MCHC 32.4 (31.0-37.0) g/dL RDW 13.6 (11.5-15.5) % Plt Count 259 (150-450) k/uL Neutrophils % 51 % Lymphocytes % 30 % Monocytes % 10 % Eosinophils % 5 % Basophils % 2 % Neutrophils # 3.0 (1.3-7.7) k/uL Lymphocytes # 1.8 (1.0-4.8) k/uL Monocytes # 0.6 (0-1.0) k/uL Eosinophils # 0.3 (0-0.7) k/uL Basophils # 0.1 (0-0.2) k/uL PT 9.4 (9.0-12.0) sec INR 0.9 (<1.2) APTT 23.7 (22.0-30.0) sec Sodium 134 L (137-145) mmol/L Potassium 4.6 (3.5-5.1) mmol/L Chloride 105 (98-107) mmol/L Carbon Dioxide 21 L (22-30) mmol/L Anion Gap 8 mmol/L BUN 24 H (9-20) mg/dL Creatinine 1.13 (0.66-1.25) mg/dL Est GFR (CKD-EPI)AfAm 82 (>60 ml/min/1.73 sqM) Est GFR (CKD-EPI)NonAf 71 (>60 ml/min/1.73 sqM) Glucose 97 (74-99) mg/dL Calcium 9.0 (8.4-10.2) mg/dL Total Bilirubin 0.3 (0.2-1.3) mg/dL AST 44 (17-59) U/L ALT 32 (4-49) U/L Alkaline Phosphatase 71 (38-126) U/L Total Protein 6.4 (6.3-8.2) g/dL Albumin 3.7 (3.5-5.0) g/dL Disposition Clinical Impression: Deep vein thrombosis (DVT) of popliteal vein of left lower extremity Disposition: HOME SELF-CARE Condition: Stable Instructions (If sedation given, give patient instructions): Deep Vein Thrombosis (ED) Additional Instructions: Please return to the Emergency Department if symptoms worsen or any other yung rns. Take medication as prescribed. Follow up with PCP. Prescriptions: Apixaban [Eliquis] 0 mg PO DIRECTED #74 tablet Is patient prescribed a controlled substance at d/c from ED?: No Referrals: Albert Chavez MD [Primary Care Provider] - 1-2 days
[2019-12-27 12:57] LABS: Basophils # (A) 0.1 k/uL (0-0.2); Basophils % (A) 2 %; Eosinophils # (A) 0.3 k/uL (0-0.7); Eosinophils % (A) 5 %; HCT 41.1 % (39.0-53.0); HGB 13.3 gm/dL (13.0-17.5); Lymphocytes # (A) 1.8 k/uL (1.0-4.8); Lymphocytes % (A) 30 %; MCH 31.6 pg (25.0-35.0); MCHC 32.4 g/dL (31.0-37.0); MCV 97.5 fL (80.0-100.0); Mean Platelet Volume 7.4; Monocytes # (A) 0.6 k/uL (0-1.0); Monocytes % (A) 10 %; Neutrophils % (A) 51 %; Platelet Count 259 k/uL (150-450); RBC 4.21 m/uL (4.30-5.90); RDW 13.6 % (11.5-15.5); WBC 5.8 k/uL (3.8-10.6)
[2019-12-27 13:11] LABS: INR 0.9 (<1.2); Partial Thromboplastin Time 23.7 sec (22.0-30.0); Prothrombin Time 9.4 sec (9.0-12.0)
[2019-12-27 13:13] LABS: Albumin 3.7 g/dL (3.5-5.0); Potassium 4.6 mmol/L (3.5-5.1); Total Bilirubin 0.3 mg/dL (0.2-1.3); Total Protein 6.4 g/dL (6.3-8.2)
[2019-12-27] MEDS ORDERED: APIXABAN 5 MG TAB PO STA (13:16)
[2019-12-27 13:39] VITALS: BP 112/76; PULSE 70
== END 2019-12-27 13:33 | disposition home or self-care (01) ==
LOC: EC 12:28
DX: I82.432 Acute embolism and thrombosis of left popliteal vein (principal); S80.12XA Contusion of left lower leg, initial encounter; F41.9 Anxiety disorder, unspecified; F32.9 Major depressive disorder, single episode, unspecified; I25.10 Atherosclerotic heart disease of native coronary artery without angina pectoris; J44.9 Chronic obstructive pulmonary disease, unspecified; M79.7 Fibromyalgia; I10 Essential (primary) hypertension; I25.2 Old myocardial infarction; M19.90 Unspecified osteoarthritis, unspecified site; H40.9 Unspecified glaucoma; G25.81 Restless legs syndrome; G62.9 Polyneuropathy, unspecified; G89.29 Other chronic pain; N40.0 Benign prostatic hyperplasia without lower urinary tract symptoms; Z79.51 Long term (current) use of inhaled steroids; Z79.82 Long term (current) use of aspirin; Z79.899 Other long term (current) drug therapy; Z88.0 Allergy status to penicillin; Z88.8 Allergy status to other drugs, medicaments and biological substances; Z88.1 Allergy status to other antibiotic agents; Z96.651 Presence of right artificial knee joint; Z95.5 Presence of coronary angioplasty implant and graft; W22.09XA Striking against other stationary object, initial encounter
CPT/HCPCS: 36415; 80053; 85025; 85610; 85730; 99283

== ENCOUNTER → 2019-12-27 | Outpatient (CLI) | payer OTHER ==
--- NOTE | 2019-12-27 12:17 | US ---
EXAMINATION TYPE: US venous doppler duplex LE LT DATE OF EXAM: 12/27/2019 12:09 PM COMPARISON: Prior left lower extremity venous ultrasound June 15, 2016 CLINICAL HISTORY: M79.605 left leg pain. SIDE PERFORMED: Left TECHNIQUE: The lower extremity deep venous system is examined utilizing real time linear array sonog miguel a with graded compression, doppler sonography and color-flow sonography. VESSELS IMAGED: External Iliac Vein (EIV) Common Femoral Vein Deep Femoral Vein Greater Saphenous Vein * Femoral Vein Popliteal Vein Small Saphenous Vein * Proximal Calf Veins (* superficial vessels) Left Leg: Positive for non-occluding thrombus in the left popliteal vein. Fluid seen at palpable. Grayscale, color doppler, spectral doppler imaging performed of the deep veins of the left lower extr emity. There is normal flow, compressibility, vascular waveforms above the knee. Partial occlusive thrombus begins in the proximal popliteal vein above the knee with incomplete compr ession and diminished color flow. At the Calf level there is curvilinear thin walled fluid collection that is not completely anechoic suspicious for small subcutaneous hematoma. IMPRESSION: Partially occlusive acute DVT in the popliteal vein beginning above knee on current st udy.
== END | disposition home or self-care (01) ==
LOC: RADUSWWP 11:31
PROVIDERS: ATTEND Pediatrics
DX: I82.432 Acute embolism and thrombosis of left popliteal vein (principal)

== ENCOUNTER 2020-02-07 22:56 | Observation (INO) | payer OTHER ==
[2020-02-07] MEDS ORDERED: ONDANSETRON 4 MG/2 ML VIAL IVP STA (23:34)
[2020-02-07] MEDS ORDERED: SODIUM CHLORIDE 0.9% 1,000 ML IV STA ×2 (23:34)
[2020-02-07] MEDS ORDERED: PANTOPRAZOLE 40 MG/10 ML VIAL IVP STA (23:34)
[2020-02-07] MEDS ORDERED: SODIUM CHLORIDE 0.9% 500 ML 500 ML IV STA (23:34)
[2020-02-07] MEDS ORDERED: MORPHINE SULFATE 4 MG/ML SYRINGE IV STA (23:34)
[2020-02-07 23:59] LABS: Basophils # (A) 0.1 k/uL (0-0.2); Basophils % (A) 0 %; Eosinophils # (A) 0.2 k/uL (0-0.7); Eosinophils % (A) 1 %; HCT 44.2 % (39.0-53.0); HGB 15.1 gm/dL (13.0-17.5); Lymphocytes # (A) 2.4 k/uL (1.0-4.8); Lymphocytes % (A) 18 %; MCH 32.9 pg (25.0-35.0); MCHC 34.3 g/dL (31.0-37.0); Mean Platelet Volume 7.3; Monocytes # (A) 0.9 k/uL (0-1.0); Monocytes % (A) 7 %; Neutrophils # (A) 9.5 k/uL (1.3-7.7); Neutrophils % (A) 72 %; Platelet Count 302 k/uL (150-450); RDW 13.2 % (11.5-15.5); WBC 13.2 k/uL (3.8-10.6)
[2020-02-08 00:14] LABS: INR 0.9 (<1.2); Prothrombin Time 9.5 sec (9.0-12.0)
[2020-02-08 00:22] LABS: ALT 44 U/L (4-49); AST 73 U/L (17-59); African American GFR (CKD) 75 (>60 ml/min/1.73 sqM); Albumin 4.5 g/dL (3.5-5.0); Alkaline Phosphatase 86 U/L (38-126); Anion Gap 14 mmol/L; Blood Urea Nitrogen 20 mg/dL (9-20); Calcium 9.3 mg/dL (8.4-10.2); Carbon Dioxide 19 mmol/L (22-30); Chloride 99 mmol/L (98-107); Creatine Kinase 84 U/L (55-170); Glucose 140 mg/dL (74-99); Non-African American GFR(CKD) 65 (>60 ml/min/1.73 sqM); Potassium 4.2 mmol/L (3.5-5.1); Sodium 132 mmol/L (137-145); Total Bilirubin 0.8 mg/dL (0.2-1.3); Total Protein 7.5 g/dL (6.3-8.2)
[2020-02-08] MEDS ORDERED: HYDROmorphone 1 MG/ML 1 ML SYRINGE IVP STA (00:26)
[2020-02-08 00:27] LABS: Alcohol 111 mg/dL
[2020-02-08 00:29] LABS: Partial Thromboplastin Time 21.2 sec (22.0-30.0)
[2020-02-08 00:30] LABS: Amylase 1448 U/L (30-110)
--- NOTE | 2020-02-08 00:36 | ED ---
Abdominal Pain HPI - General Chief Complaint: Abdominal Pain Stated Complaint: Abd pain, vomiting Time Seen by Provider: 02/07/20 23:20 Source: patient, RN notes reviewed, old records reviewed Mode of arrival: wheelchair Limitations: no limitations - History of Present Illness Initial Comments: This is a 59-year-old male DF for evaluation of abdominal pain. Patient states he has history of acute on chronic back otitis chronic pancreatitis feels the s fausto today. Patient has no trauma no fevers no cough or congestion does admit to nausea and vomiting and abdominal pain. Severe MD Complaint: abdominal pain (Epigastric) -: days(s) Location: epigastric Radiation: epigastric Migration to: epigastric, bilateral flank Severity: severe Severity scale (1-10): 8 Quality: stabbing Consistency: constant Improves With: nothing Worsens With: nothing Associated Symptoms: nausea, vomiting, anorexia - Related Data Home Medications Medication Instructions Recorded Confirmed Cyclobenzaprine [Flexeril] 10 mg PO TID PRN 06/28/16 02/08/20 Lisinopril [Zestril] 20 mg PO DAILY 06/28/16 02/08/20 rOPINIRole HCL [Requip] 1 mg PO BID 06/28/16 02/08/20 amLODIPine [Norvasc] 10 mg PO DAILY 09/26/16 02/08/20 Gabapentin [Neurontin] 800 mg PO TID 09/18/17 02/08/20 Nicotine 21Mg/24Hr Patch [Habitrol] 1 patch TRANSDERM DAILY PRN 09/18/17 02/08/20 Montelukast [Singulair] 10 mg PO DAILY 01/12/18 02/08/20 oxyCODONE-APAP 10-325MG [Percocet 1 tab PO TID 09/12/18 02/08/20 10-325 mg] Latanoprost/Pf [Latanoprost 0.005% 1 drop BOTH EYES HS 05/20/19 02/08/20 Eye Drop] Loratadine [Claritin] 10 mg PO DAILY 05/20/19 02/08/20 Albuterol Nebulized [Ventolin 2.5 mg INHALATION RT-QID PRN 11/12/19 02/08/20 Nebulized] Albuterol Sulfate [Albuterol 2 puff PO RT-QID PRN 02/08/20 02/08/20 Sulfate Hfa] Fluticasone Propion/Salmeterol 1 puff INHALATION RT-BID 02/08/20 02/08/20 [Wixela 500-50 Inhub] Furosemide [Lasix] 20 mg PO DAILY 02/08/20 02/08/20 Levofloxacin [Levaquin] 500 mg PO W/LUNCH 02/08/20 02/08/20 Omeprazole 20 mg PO DAILY 02/08/20 02/08/20 Sertraline [Zoloft] 100 mg PO DAILY 02/08/20 02/08/20 Tamsulosin [Flomax] 0.4 mg PO DAILY PRN 02/08/20 02/08/20 Warfarin [Coumadin] 2.5 mg PO DAILY 02/08/20 02/08/20 Allergies Allergy/AdvReac Type Severity Reaction Status Date / Time amoxicillin trihydrate AdvReac Rapid Verified 02/08/20 10:00 [From Augmentin] Heart Rate potassium clavulanate AdvReac FELT LIKE Verified 02/08/20 10:00 [From Augmentin] HE WAS GOING TO PASS OUT FAST HEARTBEAT" pregabalin [From Lyrica] AdvReac Swelling Verified 02/08/20 10:00 Review of Systems ROS Statement: Those systems with pertinent positive or pertinent negative responses have been documented in the HPI. ROS Other: All systems not noted in ROS Statement are negative. Past Medical History Past Medical History: Coronary Artery Disease (CAD), COPD, Eye Disorder, Fibromyalgia, Hypertension, Myocardial Infarction ([place]), Osteoarthritis (OA), Prostate Disorder, Vascular Disorder Additional Past Medical History / Comment(s): Chronic cough, chronic pancreatitis, past alcohol abuse-pt states occasionally now, bilateral eye glaucoma, neuropathy bilateral feet, poor circulation to legs, varicose veins, RLS, BPH with surgery, colitis, gastritis, Alvarenga's esophagus, shingles in 2012 and states joint pain since, chronic low back pain, DDD. Last Myocardial Infarction Date:: 09/02/16 History of Any Multi-Drug Resistant Organisms: None Reported Past Surgical History: Appendectomy, Heart Catheterization, Joint Replacement, Orthopedic Surgery, Prostate Surgery Additional Past Surgical History / Comment(s): R knee arthroscopy for torn meniscus, knee replacement; R total knee arthroplasty, EGD, colonoscopy, TURP Past Anesthesia/Blood Transfusion Reactions: No Reported Reaction Past Psychological History: Anxiety, Depression Smoking Status: Current some day smoker Past Alcohol Use History: Daily Past Drug Use History: None Reported - Past Family History Father Family Medical History: CVA/TIA, Hypertension Additional Family Medical History / Comment(s): Father at the age of 38yrs from HTN/CVA. He was an alcoholic. Mother Family Medical History: COPD, Diabetes Mellitus Additional Family Medical History / Comment(s): Mother of emphysema at the age of 74 yrs (2003), mom has hx of drinking and smoking General Exam Limitations: no limitations General appearance: alert, in no apparent distress Head exam: Present: atraumatic, normocephalic, normal inspection Eye exam: Present: normal appearance, PERRL, EOMI. Absent: scleral icterus, conjunctival injection, periorbital swelling ENT exam: Present: normal exam, mucous membranes moist Neck exam: Present: normal inspection. Absent: tenderness, meningismus, lymphadenopathy Respiratory exam: Present: normal lung sounds bilaterally. Absent: respiratory distress, wheezes, rales, rhonchi, stridor Cardiovascular Exam: Present: regular rate, normal rhythm, normal heart sounds. Absent: systolic murmur, diastolic murmur, rubs, gallop, clicks GI/Abdominal exam: Present: soft, normal bowel sounds. Absent: distended, te nderness, guarding, rebound, rigid Extremities exam: Present: normal inspection, full ROM, normal capillary refill. Absent: tenderness, pedal edema, joint swelling, calf tenderness Back exam: Present: normal inspection Neurological exam: Present: alert, oriented X3, CN II-XII intact Psychiatric exam: Present: normal affect, normal mood Skin exam: Present: warm, dry, intact, normal color. Absent: rash Course Vital Signs 02/07/20 02/08/20 22:59 02:09 Temperature 98.4 F 98.3 F Pulse Rate 101 H 86 Respiratory 16 19 Rate Blood Pressure 104/77 128/63 O2 Sat by Pulse 98 95 Oximetry - Reevaluation(s) Reevaluation #1: Medical records reviewed Symptoms are improved Patient does have persistent pain Medical Decision Making - Medical Decision Making 59 male DF for evaluation of acute on chronic alcoholic pancreatitis. Lament for symptom management pain control - Lab Data Result diagrams: 02/09/20 07:23 02/09/20 07:23 Lab Results 02/07/20 02/07/20 02/07/20 Range/Units 23:35 23:38 23:38 WBC 13.2 H (3.8-10.6) k/uL RBC 4.60 (4.30-5.90) m/uL Hgb 15.1 (13.0-17.5) gm/dL Hct 44.2 (39.0-53.0) % MCV 96.0 (80.0-100.0) fL MCH 32.9 (25.0-35.0) pg MCHC 34.3 (31.0-37.0) g/dL RDW 13.2 (11.5-15.5) % Plt Count 302 (150-450) k/uL Neutrophils % 72 % Lymphocytes % 18 % Monocytes % 7 % Eosinophils % 1 % Basophils % 0 % Neutrophils # 9.5 H (1.3-7.7) k/uL Lymphocytes # 2.4 (1.0-4.8) k/uL Monocytes # 0.9 (0-1.0) k/uL Eosinophils # 0.2 (0-0.7) k/uL Basophils # 0.1 (0-0.2) k/uL PT (9.0-12.0) sec INR (<1.2) APTT (22.0-30.0) sec Sodium 132 L (137-145) mmol/L Potassium 4.2 (3.5-5.1) mmol/L Chloride 99 (98-107) mmol/L Carbon Dioxide 19 L (22-30) mmol/L Anion Gap 14 mmol/L BUN 20 (9-20) mg/dL Creatinine 1.22 (0.66-1.25) mg/dL Est GFR (CKD-EPI)AfAm 75 (>60 ml/min/1.73 sqM) Est GFR (CKD-EPI)NonAf 65 (>60 ml/min/1.73 sqM) Glucose 140 H (74-99) mg/dL Lactic Ac Sepsis Rflx Plasma Lactic Acid Carlos Manuel 2.2 H* (0.7-2.0) mmol/L Calcium 9.3 (8.4-10.2) mg/dL Magnesium (1.6-2.3) mg/dL Total Bilirubin 0.8 (0.2-1.3) mg/dL AST 73 H (17-59) U/L ALT 44 (4-49) U/L Alkaline Phosphatase 86 (38-126) U/L Creatine Kinase 84 (55-170) U/L Total Protein 7.5 (6.3-8.2) g/dL Albumin 4.5 (3.5-5.0) g/dL Amylase 1448 H* (30-110) U/L Lipase >34149 H (23-300) U/L Serum Alcohol 111 mg/dL Coronavirus (PCR) (Not Detected) 02/07/20 02/08/20 02/08/20 Range/Units 23:38 00:30 02:09 WBC (3.8-10.6) k/uL RBC (4.30-5.90) m/uL Hgb (13.0-17.5) gm/dL Hct (39.0-53.0) % MCV (80.0-100.0) fL MCH (25.0-35.0) pg MCHC (31.0-37.0) g/dL RDW (11.5-15.5) % Plt Count (150-450) k/uL Neutrophils % % Lymphocytes % % Monocytes % % Eosinophils % % Basophils % % Neutrophils # (1.3-7.7) k/uL Lymphocytes # (1.0-4.8) k/uL Monocytes # (0-1.0) k/uL Eosinophils # (0-0.7) k/uL Basophils # (0-0.2) k/uL PT 9.5 (9.0-12.0) sec INR 0.9 (<1.2) APTT 21.2 L (22.0-30.0) sec Sodium (137-145) mmol/L Potassium (3.5-5.1) mmol/L Chloride (98-107) mmol/L Carbon Dioxide (22-30) mmol/L Anion Gap mmol/L BUN (9-20) mg/dL Creatinine (0.66-1.25) mg/dL Est GFR (CKD-EPI)AfAm (>60 ml/min/1.73 sqM) Est GFR (CKD-EPI)NonAf (>60 ml/min/1.73 sqM) Glucose (74-99) mg/dL Lactic Ac Sepsis Rflx Y Plasma Lactic Acid Carlos Manuel (0.7-2.0) mmol/L Calcium (8.4-10.2) mg/dL Magnesium (1.6-2.3) mg/dL Total Bilirubin (0.2-1.3) mg/dL AST (17-59) U/L ALT (4-49) U/L Alkaline Phosphatase (38-126) U/L Creatine Kinase (55-170) U/L Total Protein (6.3-8.2) g/dL Albumin (3.5-5.0) g/dL Amylase (30-110) U/L Lipase (23-300) U/L Serum Alcohol mg/dL Coronavirus (PCR) Not Detected (Not Detected) 02/08/20 02/08/20 02/08/20 Range/Units 03:02 06:26 06:26 WBC 8.9 (3.8-10.6) k/uL RBC 4.33 (4.30-5.90) m/uL Hgb 14.0 (13.0-17.5) gm/dL Hct 42.1 (39.0-53.0) % MCV 97.1 (80.0-100.0) fL MCH 32.4 (25.0-35.0) pg MCHC 33.4 (31.0-37.0) g/dL RDW 13.4 (11.5-15.5) % Plt Count 270 (150-450) k/uL Neutrophils % % Lymphocytes % % Monocytes % % Eosinophils % % Basophils % % Neutrophils # (1.3-7.7) k/uL Lymphocytes # (1.0-4.8) k/uL Monocytes # (0-1.0) k/uL Eosinophils # (0-0.7) k/uL Basophils # (0-0.2) k/uL PT (9.0-12.0) sec INR (<1.2) APTT (22.0-30.0) sec Sodium 137 (137-145) mmol/L Potassium 4.9 (3.5-5.1) mmol/L Chloride 108 H (98-107) mmol/L Carbon Dioxide 23 (22-30) mmol/L Anion Gap 6 mmol/L BUN 17 (9-20) mg/dL Creatinine 1.03 (0.66-1.25) mg/dL Est GFR (CKD-EPI)AfAm >90 (>60 ml/min/1.73 sqM) Est GFR (CKD-EPI)NonAf 80 (>60 ml/min/1.73 sqM) Glucose 94 (74-99) mg/dL Lactic Ac Sepsis Rflx Plasma Lactic Acid Carlos Manuel 1.4 (0.7-2.0) mmol/L Calcium 8.3 L (8.4-10.2) mg/dL Magnesium 1.9 (1.6-2.3) mg/dL Total Bilirubin 0.6 (0.2-1.3) mg/dL AST 54 (17-59) U/L ALT 44 (4-49) U/L Alkaline Phosphatase 78 (38-126) U/L Creatine Kinase (55-170) U/L Total Protein 6.6 (6.3-8.2) g/dL Albumin 3.7 (3.5-5.0) g/dL Amylase (30-110) U/L Lipase 8048 H (23-300) U/L Serum Alcohol mg/dL Coronavirus (PCR) (Not Detected) 02/08/20 Range/Units 06:26 WBC (3.8-10.6) k/uL RBC (4.30-5.90) m/uL Hgb (13.0-17.5) gm/dL Hct (39.0-53.0) % MCV (80.0-100.0) fL MCH (25.0-35.0) pg MCHC (31.0-37.0) g/dL RDW (11.5-15.5) % Plt Count (150-450) k/uL Neutrophils % % Lymphocytes % % Monocytes % % Eosinophils % % Basophils % % Neutrophils # (1.3-7.7) k/uL Lymphocytes # (1.0-4.8) k/uL Monocytes # (0-1.0) k/uL Eosinophils # (0-0.7) k/uL Basophils # (0-0.2) k/uL PT 9.9 (9.0-12.0) sec INR 0.9 (<1.2) APTT (22.0-30.0) sec Sodium (137-145) mmol/L Potassium (3.5-5.1) mmol/L Chloride (98-107) mmol/L Carbon Dioxide (22-30) mmol/L Anion Gap mmol/L BUN (9-20) mg/dL Creatinine (0.66-1.25) mg/dL Est GFR (CKD-EPI)AfAm (>60 ml/min/1.73 sqM) Est GFR (CKD-EPI)NonAf (>60 ml/min/1.73 sqM) Glucose (74-99) mg/dL Lactic Ac Sepsis Rflx Plasma Lactic Acid Carlos Manuel (0.7-2.0) mmol/L Calcium (8.4-10.2) mg/dL Magnesium (1.6-2.3) mg/dL Total Bilirubin (0.2-1.3) mg/dL AST (17-59) U/L ALT (4-49) U/L Alkaline Phosphatase (38-126) U/L Creatine Kinase (55-170) U/L Total Protein (6.3-8.2) g/dL Albumin (3.5-5.0) g/dL Amylase (30-110) U/L Lipase (23-300) U/L Serum Alcohol mg/dL Coronavirus (PCR) (Not Detected) Disposition Clinical Impression: Alcoholic pancreatitis, Abdominal pain, Acute pancreatitis Disposition: ADMITTED IP TO THIS HOSP Condition: Good Is patient prescribed a controlled substance at d/c from ED?: No
[2020-02-08] MEDS ORDERED: THIAMINE 100 MG/ML 2 ML VIAL IM STA (01:45)
[2020-02-08] MEDS ORDERED: ONDANSETRON 4 MG/2 ML VIAL IVP PRN (01:45)
[2020-02-08] MEDS ORDERED: LORazepam 2 MG/ML INJ IV PRN ×3 (01:45)
--- NOTE | 2020-02-08 03:21 | P.HPIM ---
History of Present Illness H&P Date: 02/08/20 The patient is a 59-year-old male with a PMH of alcohol abuse, alcoholic pancreatitis, coronary artery disease, COPD, and hypertension who presented to the ED with complaints of abdominal pain with nausea and vomiting. Notes that his abdominal discomfort started in the afternoon today, gradually worsened, was 8 out of 10 at maximal intensity, constant, aching in nature, nonradiating, with no alleviating or exacerbating features. He had associated nausea with 4 total episodes of nonbloody emesis. The patient reports that his symptoms are similar to his previous episodes of pancreatitis. He continues to drink alcohol, consuming 4-5 tall boys beers daily with last drink earlier today. He denied diarrhea, fever, chills, chest pain, shortness of breath, dizziness, weakness, or numbness. In the emergency room, the patient's lactate was 2.2 with lipase greater than 20,000, amylase 1448, serum alcohol level 111, sodium 132, glucose 140, CO2 19, and WBC count 13.2. He was admitted to the medicine service for further management. Review of Systems Pertinent positives and negatives as discussed in HPI, a complete review of systems was performed and all other systems are negative. Past Medical History Past Medical History: Coronary Artery Disease (CAD), COPD, Eye Disorder, Fibromyalgia, Hypertension, Myocardial Infarction (IN), Osteoarthritis (OA), Prostate Disorder, Vascular Disorder Additional Past Medical History / Comment(s): Chronic cough, chronic pancreatitis, past alcohol abuse-pt states occasionally now, bilateral eye glaucoma, neuropathy bilateral feet, poor circulation to legs, varicose veins, RLS, BPH with surgery, colitis, gastritis, Alvarenga's esophagus, shingles in 2012 and states joint pain since, chronic low back pain, DDD. Last Myocardial Infarction Date:: 09/02/16 History of Any Multi-Drug Resistant Organisms: None Reported Past Surgical History: Appendectomy, Heart Catheterization, Joint Replacement, Orthopedic Surgery, Prostate Surgery Additional Past Surgical History / Comment(s): R knee arthroscopy for torn meniscus, knee replacement; R total knee arthroplasty, EGD, colonoscopy, TURP Past Anesthesia/Blood Transfusion Reactions: No Reported Reaction Past Psychological History: Anxiety, Depression Smoking Status: Current some day smoker Past Alcohol Use History: Daily Past Drug Use History: None Reported - Past Family History Father Family Medical History: CVA/TIA, Hypertension Additional Family Medical History / Comment(s): Father at the age of 38yrs from HTN/CVA. He was an alcoholic. Mother Family Medical History: COPD, Diabetes Mellitus Additional Family Medical History / Comment(s): Mother of emphysema at the age of 74 yrs (2003), mom has hx of drinking and smoking Medications and Allergies Home Medications Medication Instructions Recorded Confirmed Type Cyclobenzaprine [Flexeril] 10 mg PO TID PRN 06/28/16 11/12/19 History Lisinopril [Zestril] 20 mg PO DAILY 06/28/16 11/12/19 History rOPINIRole HCL [Requip] 1 mg PO BID PRN 06/28/16 11/12/19 History Albuterol Inhaler (Mhu) [Ventolin 2 puff INHALATION RT-Q6H PRN 09/26/16 11/12/19 History Hfa Inhaler (Mhu)] amLODIPine [Norvasc] 10 mg PO DAILY 09/26/16 11/12/19 History Tamsulosin [Flomax] 0.4 mg PO DAILY PRN 06/20/17 11/12/19 History Aspirin 81 mg PO DAILY 09/18/17 11/12/19 History Gabapentin [Neurontin] 800 mg PO TID 09/18/17 11/12/19 History Nicotine 21Mg/24Hr Patch [Habitrol] 1 patch TRANSDERM DAILY 09/18/17 11/12/19 History Etodolac [Lodine] 400 mg PO BID 01/12/18 11/12/19 History Montelukast [Singulair] 10 mg PO DAILY 01/12/18 11/12/19 History Salmeterol Xinafoate [Serevent 1 puff INHALATION RT-BID 09/12/18 11/12/19 History Diskus] oxyCODONE-APAP 10-325MG [Percocet 1 tab PO TID PRN 09/12/18 11/12/19 History 10-325 mg] Beclomethasone Dip 80 Mcg/Puff 2 puff INHALATION RT-BID 05/20/19 11/12/19 History [Qvar 80 mcg] Latanoprost/Pf [Latanoprost 0.005% 1 drop BOTH EYES HS 05/20/19 11/12/19 History Eye Drop] Loratadine [Claritin] 10 mg PO DAILY 05/20/19 11/12/19 History Albuterol Nebulized [Ventolin 2.5 mg INHALATION RT-Q6H PRN 11/12/19 11/12/19 History Nebulized] FLUoxetine HCL [PROzac] 20 mg PO DAILY 11/12/19 11/12/19 History Clindamycin [Cleocin] 300 mg PO Q8H 5 Days #28 cap 11/15/19 Rx Pantoprazole [Protonix] 40 mg PO BID #60 tablet.dr 11/15/19 Rx Sertraline [Zoloft] 50 mg PO DAILY #30 tab 11/15/19 Rx Thiamine [Vitamin B-1] 100 mg PO DAILY #30 tab 11/15/19 Rx Apixaban [Eliquis] 0 mg PO DIRECTED #74 tablet 12/27/19 Rx Allergies Allergy/AdvReac Type Severity Reaction Status Date / Time amoxicillin trihydrate AdvReac Rapid Verified 02/07/20 23:03 [From Augmentin] Heart Rate potassium clavulanate AdvReac FELT LIKE Verified 02/07/20 23:03 [From Augmentin] HE WAS GOING TO PASS OUT FAST HEARTBEAT" pregabalin [From Lyrica] AdvReac Swelling Verified 02/07/20 23:03 Physical Exam Vitals: Vital Signs Temp Pulse Resp BP Pulse Ox 02/08/20 02:09 98.3 F 86 19 128/63 95 02/07/20 22:59 98.4 F 101 H 16 104/77 98 Intake and Output 02/07/20 02/07/20 02/08/20 14:59 22:59 06:59 Other: Weight 97.522 kg General: non toxic, no distress, appears older than stated age, overweight Derm: no unusual rashes/lesions no unusual ecchymoses, warm, dry Head: atraumatic, normocephalic, symmetric Eyes: EOMI, no lid lag, anicteric sclera, pupils equal round reactive to light ENT: Nose and ears atraumatic, no thrush, no pharyngeal erythema Neck: No thyromegaly, no cervical lymphadenopathy, trachea midline, supple Mouth: no lip lesion, mucus membranes moist Cardiovascular: S1S2 reg, no murmur, positive posterior tibial pulse bilateral, no edema, capillary refill less than 2 seconds Lungs: CTA bilateral, no rhonchi, no rales , no accessory muscle use Abdominal: distended, epigastric tenderness, no guarding Ext: no gross muscle atrophy, muscle strength 5 out of 5 in all 4 extremities grossly, no contractures, Neuro: CN II-XI grossly intact, light touch intact all 4 extremities, finger to nose within normal limits, Psych: Alert, oriented, appropriate affect Results CBC & Chem 7: 02/07/20 23:35 02/07/20 23:38 Labs: Abnormal Lab Results - Last 24 Hours (Table) 02/07/20 02/07/20 02/07/20 Range/Units 23:35 23:38 23:38 WBC 13.2 H (3.8-10.6) k/uL Neutrophils # 9.5 H (1.3-7.7) k/uL APTT (22.0-30.0) sec Sodium 132 L (137-145) mmol/L Carbon Dioxide 19 L (22-30) mmol/L Glucose 140 H (74-99) mg/dL Plasma Lactic Acid Carlos Manuel 2.2 H* (0.7-2.0) mmol/L AST 73 H (17-59) U/L Amylase 1448 H* (30-110) U/L Lipase >49315 H (23-300) U/L 02/07/20 Range/Units 23:38 WBC (3.8-10.6) k/uL Neutrophils # (1.3-7.7) k/uL APTT 21.2 L (22.0-30.0) sec Sodium (137-145) mmol/L Carbon Dioxide (22-30) mmol/L Glucose (74-99) mg/dL Plasma Lactic Acid Carlos Manuel (0.7-2.0) mmol/L AST (17-59) U/L Amylase (30-110) U/L Lipase (23-300) U/L Assessment and Plan Plan: Alcoholic pancreatitis -Nothing by mouth for now -GI consult -Continue with IV fluids -Thiamine, folic acid, multivitamin -Pain control -CIWA protocol -Antiemetics -Fall, seizure, aspiration precautions -Trend lipase levels -Advised on importance of cessation -Monitor electrolytes daily and replace as needed -Obtain EKG Lactic acidosis with subsequent metabolic acidosis -Monitor to resolution Elevated AST -Secondary to EtOH abuse Chronic conditions: Coronary artery disease, hypertension, hyperlipidemia, COPD, hx of DVT -Continue with home meds DVT prophylaxis -Eliquis The patient is admitted with an anticipated less than 2 midnight stay for evaluation of alcoholic pancreatitis CODE STATUS: Full Code Discussed with: Patient Anticipated discharge date: [address]: Home A total of 40 minutes was spent on the care of this complex patient more than 50% of the time was spent in counseling and care coordination.
[2020-02-08] MEDS: HYDROmorphone 1 MG/ML 1 ML SYRINGE IVP PRN ×5 (05:02→21:28)
[2020-02-08 07:21] LABS: HCT 42.1 % (39.0-53.0); MCH 32.4 pg (25.0-35.0); MCHC 33.4 g/dL (31.0-37.0); MCV 97.1 fL (80.0-100.0); Mean Platelet Volume 7.1; Platelet Count 270 k/uL (150-450); RBC 4.33 m/uL (4.30-5.90); RDW 13.4 % (11.5-15.5); WBC 8.9 k/uL (3.8-10.6)
[2020-02-08 07:32] LABS: ALT 44 U/L (4-49); AST 54 U/L (17-59); African American GFR (CKD) >90 (>60 ml/min/1.73 sqM); Albumin 3.7 g/dL (3.5-5.0); Alkaline Phosphatase 78 U/L (38-126); Anion Gap 6 mmol/L; Blood Urea Nitrogen 17 mg/dL (9-20); Calcium 8.3 mg/dL (8.4-10.2); Carbon Dioxide 23 mmol/L (22-30); Chloride 108 mmol/L (98-107); Glucose 94 mg/dL (74-99); Magnesium 1.9 mg/dL (1.6-2.3); Non-African American GFR(CKD) 80 (>60 ml/min/1.73 sqM); Potassium 4.9 mmol/L (3.5-5.1); Sodium 137 mmol/L (137-145); Total Bilirubin 0.6 mg/dL (0.2-1.3); Total Protein 6.6 g/dL (6.3-8.2)
[2020-02-08] MEDS: FOLIC ACID-VIT B COMPLEX-VIT C 1 CAP PO SCH (08:37)
[2020-02-08] MEDS: PANTOPRAZOLE 40 MG/10 ML VIAL IVP SCH (08:38)
[2020-02-08] MEDS ORDERED: ALBUTEROL HFA INHALER INHALATION PRN (11:00)
[2020-02-08] MEDS ORDERED: ALBUTEROL NEBULIZED 2.5 MG/3 ML INHALATION PRN (11:00)
[2020-02-08] MEDS ORDERED: CYCLOBENZAPRINE 10 MG TAB PO PRN (11:00)
[2020-02-08] MEDS ORDERED: NON FORMULARY DRUG (Omeprazole [Omeprazole] 20 MG) PO SCH (11:15)
[2020-02-08] MEDS: LORATADINE 10 MG TAB PO SCH (12:20)
[2020-02-08] MEDS: MONTELUKAST 10 MG TAB PO SCH (12:20)
[2020-02-08] MEDS: SERTRALINE 100 MG TAB PO SCH (12:20)
[2020-02-08] MEDS: lisinopriL 20 MG TAB PO SCH (12:20)
[2020-02-08] MEDS: LEVOFLOXACIN 500 MG TAB PO SCH (12:20)
[2020-02-08] MEDS: amLODIPine 10 MG TAB PO SCH (12:21)
[2020-02-08] MEDS ORDERED: ENOXAPARIN 100 MG/ML SYRINGE SQ SCH (15:30)
--- NOTE | 2020-02-08 15:40 | P.PN ---
Subjective Progress Note Date: 02/08/20 Principal diagnosis: abdominal pain Patient is a 50-year-old male for history of alcohol relapses, chronic alcoholic pancreatitis, coronary artery disease COPD, and hypertension who presented to the emergency department with complaints of abdominal pain, nausea, and vomiting. In the ER he underwent evaluation. He was found to have laboratory analysis consistent with pancreatitis. Lipase was greater than 20,000, and amylase 448, lactic acid 2.2, sodium 132, and white blood cell count 13.2. Started on IV fluids, pain medications, made nothing by mouth. Arrange ents are made for admission for acute pancreatitis. Of note the patient was diagnosed with a lower extremity deep venous thrombosis on 12/27/2019. He had been taking Eliquis with this was no longer approved through his insurance and he was supposed to start Coumadin therapy. Patient seen and examined at bedside. His abdominal pain is much better today, no more nausea, feeling slightly hungry, no chest pain, no shortness of breath, no lower extremity edema. Currently has no complaints. He states he was doing well abstained from alcohol to have relapse. He recounts stories the DVT as dictated above. Objective - Vital Signs Vital signs: Vital Signs Temp 97.8 F 02/08/20 05:00 Pulse 102 H 02/08/20 05:00 Resp 20 02/08/20 05:00 BP 137/84 02/08/20 05:00 Pulse Ox 95 02/08/20 05:00 Intake & Output 02/07/20 02/08/20 02/08/20 18:59 06:59 18:59 Intake Total 0 Balance 0 Weight 97.522 kg Intake: Oral 0 Other: # Voids 1 - Exam General: Ill appearing, no distress, appears at stated age Derm: warm, dry Head: atraumatic, normocephalic, symmetric Eyes: EOMI, no lid lag, anicteric sclera Mouth: no lip lesion, mucus membranes moist Cardiovascular: S1S2 reg, no murmur, positive posterior tibial pulse bilateral, Lungs: CTA bilateral, no rhonchi, no rales , no accessory muscle use Abdominal: soft, tender to palpation epigastric, no guarding, no appreciable organomegaly Ext: no gross muscle atrophy, no edema, no contractures Neuro: CN II-XI grossly intact, no focal neuro deficits Psych: Alert, oriented, appropriate affect - Labs CBC & Chem 7: 02/08/20 06:26 02/08/20 06:26 Labs: Abnormal Lab Results - Last 24 Hours (Table) 02/07/20 02/07/20 02/07/20 Range/Units 23:35 23:38 23:38 WBC 13.2 H (3.8-10.6) k/uL Neutrophils # 9.5 H (1.3-7.7) k/uL APTT (22.0-30.0) sec Sodium 132 L (137-145) mmol/L Chloride (98-107) mmol/L Carbon Dioxide 19 L (22-30) mmol/L Glucose 140 H (74-99) mg/dL Plasma Lactic Acid Carlos Manuel 2.2 H* (0.7-2.0) mmol/L Calcium (8.4-10.2) mg/dL AST 73 H (17-59) U/L Amylase 1448 H* (30-110) U/L Lipase >93124 H (23-300) U/L 02/07/20 02/08/20 Range/Units 23:38 06:26 WBC (3.8-10.6) k/uL Neutrophils # (1.3-7.7) k/uL APTT 21.2 L (22.0-30.0) sec Sodium (137-145) mmol/L Chloride 108 H (98-107) mmol/L Carbon Dioxide (22-30) mmol/L Glucose (74-99) mg/dL Plasma Lactic Acid Carlos Manuel (0.7-2.0) mmol/L Calcium 8.3 L (8.4-10.2) mg/dL AST (17-59) U/L Amylase (30-110) U/L Lipase 8048 H (23-300) U/L Assessment and Plan Assessment: Acute alcoholic pancreatitis -IV fluids -Clear liquid diet -Pain control -Antiemetics COPD without exacerbation with bronchitis - albuterl prb, symbicort, singulair - on levaquin per his outpatient will continue but doubt currently has an Infectious process Hypertension - Follow BP - Norvasc - hold lasix while getting IVF for pancreatitis - Lisinopril Positive Left Lower Extremity DVT - Was in the process of transitioned to coumadin as outpatient - Lovenox and Coumadin to [facility]. Chronic pain - resume home percocet - hold Lodine Chronic: Coronary artery disease Glaucoma Neuropathy RLS Alvarenga's Esophagus Shingles Gastritis low back pain DVT prophylaxis: Lovenox Discussed with: Patientpamela Anticipated discharge: 1-[address]: home A total of 35 minutes was spent on the care of this complex patient more than 50% of the time was spent in counseling and care coordination.
[2020-02-08 15:42] LABS: INR 0.9 (<1.2); Prothrombin Time 9.9 sec (9.0-12.0)
[2020-02-08] MEDS: THIAMINE 100 MG TAB PO SCH (17:35)
[2020-02-08] MEDS: ENOXAPARIN 100 MG/ML SYRINGE SQ SCH (17:36)
[2020-02-08] MEDS: SODIUM CHLORIDE 0.9% 1,000 ML IV SCH (17:42)
[2020-02-08] MEDS ORDERED: WARFARIN 5 MG TAB PO SCH (18:00)
[2020-02-08] MEDS: SYMBICORT 160-4.5 MCG INHALER INHALATION SCH (19:24)
--- NOTE | 2020-02-08 21:08 | CONS ---
CONSULTATION DATE OF SERVICE: February 08, 2020. REASON FOR CONSULTATION: Chronic relapsing pancreatitis. HISTORY OF PRESENT ILLNESS: The patient is a 59-year-old pleasant white male admitted to the hospital because of acute onset of severe epigastric pain that started yesterday. History of heavy alcohol abuse, history of chronic relapsing pancreatitis with multiple hospitalizations in the past. At the time of admission to the hospital, was noted to have lipase more than 20,000. Feeling better today. Nausea has resolved. He had several episodes of emesis yesterday. The patient has been drinking actively, drinks about 6 beers on a daily basis. PAST MEDICAL HISTORY: Heavy alcohol abuse, history of esophageal varices, alcoholic cirrhosis of the liver, hypertension, chronic pancreatitis, peripheral neuropathy, restless leg syndrome, coronary artery disease, history of fibromyalgia. PAST SURGICAL HISTORY: Appendectomy, cardiac catheterization, prostate surgery, right knee arthroscopy. FAMILY HISTORY: Father had hypertension and CVA. Mother had emphysema. MEDICATIONS: Medications at home include Flexeril, Requip, Zestril, Norvasc, Flomax, aspirin, Neurontin, Ventolin, Singulair, Lodine, Serevent, Claritin, Prozac, albuterol, Protonix, Zoloft, Eliquis. ALLERGIES: AUGMENTIN. SOCIAL HISTORY: Chronic smoker, heavy alcohol abuse as mentioned above. REVIEW OF SYSTEMS: CARDIOPULMONARY: No chest pain, shortness of breath. no dysuria or hematuria. MUSCULOSKELETAL unremarkable. SKIN unremarkable. ENDOCRINE unremarkable. PSYCHIATRIC unremarkable. NEUROLOGY unremarkable. ENT/VISION unremarkable. CONSTITUTIONAL no recent weight loss. No fever, chills, night sweats. PHYSICAL EXAMINATION: Appears comfortable, no apparent distress. Vital signs stable. Blood pressure is 127/84, pulse rate 102 and afebrile. HEENT examination unremarkable. Conjunctivae pink. Sclerae anicteric. Oral cavity no lesions. NECK: No JVD or lymph node enlargement. CHEST was clear to auscultation. HEART: Regular rate and rhythm. ABDOMEN: Soft. Mild tenderness in the epigastric area. Bowel sounds are positive. No organomegaly. EXTREMITIES: No pedal edema. SKIN: No rashes. NEUROLOGIC: Alert and oriented x3. No focal deficits. LABS: From yesterday, amylase 1448, lipase more than 20,000. Today amylase was not done but lipase is 8048. ALT, AST, T-bilirubin and alkaline phosphatase are within normal limits. WBC 13.2, hemoglobin 15.1. Today WBC 8.9, hemoglobin 14. Lactic acid was 2.2, today is 1.4. Serum alcohol level 111. IMPRESSION: 1. Chronic relapsing pancreatitis with flare up. Lipase more than 20,000. The patient presented with acute onset of severe epigastric pain associated with nausea, vomiting. History of heavy alcohol abuse and has been actively drinking. 2. History of cirrhosis of the liver. 3. History of esophageal variceal bleeding in the past. RECOMMENDATIONS: 1. Keep him n.p.o. except ice chips. 2. Monitor lipase on a daily basis. 3. Symptomatic and supportive care. 4. Aggressive IV hydration. 5. Abstinence from alcohol. 6. Eliquis later today or tomorrow based on his clinical symptoms. 7. Will follow with you closely. Thank you for this consultation. CRISTA / AGUILAR: [id number] /
[2020-02-09] MEDS: oxyCODONE-APAP 10-325MG 1 EACH TAB PO PRN ×3 (00:53→16:38)
[2020-02-09] MEDS: HYDROmorphone 1 MG/ML 1 ML SYRINGE IVP PRN ×3 (01:47→09:34)
[2020-02-09] MEDS: ENOXAPARIN 100 MG/ML SYRINGE SQ SCH ×2 (04:36→16:41)
[2020-02-09] MEDS: SODIUM CHLORIDE 0.9% 1,000 ML IV SCH ×2 (05:25→12:55)
[2020-02-09 05:42] VITALS: RESP 20
[2020-02-09] MEDS: SYMBICORT 160-4.5 MCG INHALER INHALATION SCH (07:18)
[2020-02-09 08:05] LABS: Basophils # (A) 0.1 k/uL (0-0.2); Basophils % (A) 1 %; Eosinophils # (A) 0.3 k/uL (0-0.7); Eosinophils % (A) 4 %; HCT 42.7 % (39.0-53.0); HGB 14.4 gm/dL (13.0-17.5); Lymphocytes # (A) 2.2 k/uL (1.0-4.8); Lymphocytes % (A) 31 %; MCHC 33.9 g/dL (31.0-37.0); MCV 97.4 fL (80.0-100.0); Mean Platelet Volume 7.9; Monocytes # (A) 0.5 k/uL (0-1.0); Monocytes % (A) 7 %; Neutrophils # (A) 3.9 k/uL (1.3-7.7); Neutrophils % (A) 56 %; Platelet Count 246 k/uL (150-450); RBC 4.38 m/uL (4.30-5.90); RDW 13.2 % (11.5-15.5); WBC 7.1 k/uL (3.8-10.6)
[2020-02-09 08:21] LABS: ALT 33 U/L (4-49); AST 31 U/L (17-59); African American GFR (CKD) >90 (>60 ml/min/1.73 sqM); Albumin 3.7 g/dL (3.5-5.0); Alkaline Phosphatase 88 U/L (38-126); Anion Gap 8 mmol/L; Blood Urea Nitrogen 10 mg/dL (9-20); Calcium 8.9 mg/dL (8.4-10.2); Carbon Dioxide 23 mmol/L (22-30); Chloride 104 mmol/L (98-107); Glucose 93 mg/dL (74-99); Non-African American GFR(CKD) >90 (>60 ml/min/1.73 sqM); Potassium 4.5 mmol/L (3.5-5.1); Sodium 135 mmol/L (137-145); Total Bilirubin 0.5 mg/dL (0.2-1.3); Total Protein 6.7 g/dL (6.3-8.2)
[2020-02-09 08:25] LABS: Prothrombin Time 10.5 sec (9.0-12.0)
[2020-02-09] MEDS: THIAMINE 100 MG TAB PO SCH ×2 (08:36→16:41)
[2020-02-09] MEDS: amLODIPine 10 MG TAB PO SCH (08:36)
[2020-02-09] MEDS: lisinopriL 20 MG TAB PO SCH (08:37)
[2020-02-09] MEDS: LORATADINE 10 MG TAB PO SCH (08:37)
[2020-02-09] MEDS: MONTELUKAST 10 MG TAB PO SCH (08:37)
[2020-02-09] MEDS: SERTRALINE 100 MG TAB PO SCH (08:37)
[2020-02-09] MEDS: PANTOPRAZOLE 40 MG/10 ML VIAL IVP SCH (08:37)
[2020-02-09] MEDS: FOLIC ACID-VIT B COMPLEX-VIT C 1 CAP PO SCH (08:39)
[2020-02-09] MEDS ORDERED: HYDROmorphone 1 MG/ML 1 ML SYRINGE IVP PRN (10:36)
[2020-02-09 12:31] VITALS: BP 137/77; PULSE 76; TEMP 98.2
[2020-02-09] MEDS: LEVOFLOXACIN 500 MG TAB PO SCH (12:51)
--- NOTE | 2020-02-09 14:33 | PN ---
PROGRESS NOTE DATE OF SERVICE: February 09, 2020 The patient is a 59-year-old pleasant white male with history of heavy alcohol abuse, admitted to the hospital with chronic relapsing pancreatitis, who presented with abdominal pain, nausea, vomiting. Noted to have elevated amylase and lipase. He is doing better. He was started on clear liquid diet yesterday and still has some epigastric discomfort but no further episodes of nausea or vomiting. PHYSICAL EXAMINATION: Blood pressure 162/90, pulse is 68, temperature 97.6. HEENT examination unremarkable. Conjunctivae pink. Sclerae anicteric. Oral cavity no lesions. NECK no JVD or lymph node enlargement. CHEST was clear to auscultation. HEART: Regular rate and rhythm. ABDOMEN: Soft. Bowel sounds are positive. No organomegaly. EXTREMITIES: No pedal edema. SKIN no rashes. NEUROLOGIC: Alert and oriented x3. No focal deficits. LABS: WBC 11.1, hemoglobin 14.4, platelets normal. Basic metabolic panel is within normal limits. Lipase from this morning is still pending. IMPRESSION: 1. Chronic relapsing pancreatitis secondary to heavy alcohol abuse, gradually improving. On a clear liquid diet, tolerating well. 2. History of liver cirrhosis. 3. History of previous esophageal variceal bleeding. Hemoglobin stable. RECOMMENDATION: 1. Continue with a clear liquid diet. 2. Pain medications as needed. 3. Symptomatic and supportive care. 4. Repeat labs in the morning. 5. Abstinence from alcohol. 6. We will follow with you closely. Thank you for this consultation. MMODL / IJN: [id number] /
--- NOTE | 2020-02-09 14:58 | P.DS ---
Providers Date of admission: 02/08/20 09:21 Expected date of discharge: 02/09/20 Attending physician: Vince Miller MD Consults: 02/08/20 03:18 Consult Physician Routine Consulting Provider: Laverne Avila Consult Reason/Comments: Pancreatitis Do you want consulting provider notified?: Yes Primary care physician: Stated None Hospital Course: Discharge Diagnosis: Acute alcoholic pancreatitis COPD without exacerbation, currently on medications or treatment of bronchitis Hypertension Left lower extremity DVT-4 weeks old Chronic pain Coronary artery disease Glaucoma Neuropathy RLS Alvarenga's Esophagus Shingles Gastritis low back pain Hospital Course: Patient is a 50-year-old male for history of alcohol relapses, chronic alcoholic pancreatitis, coronary artery disease COPD, and hypertension who presented to the emergency department with complaints of abdominal pain, nausea, and vomiting. In the ER he underwent evaluation. He was found to have laboratory analysis consistent with pancreatitis. Lipase was greater than 20,000, and amylase 448, lactic acid 2.2, sodium 132, and white blood cell count 13.2. Started on IV fluids, pain medications, made nothing by mouth. Arrangements are made for admission for acute pancreatitis. Of note the patient was diagnosed with a lower extremity deep venous thrombosis on 12/27/2019. He had been taking Eliquis with this was no longer approved through his insurance and he was supposed to start Coumadin therapy on the day of admission through tx s primary nurse practioner. On the morning and 02/07 he had significant improvement in his abdominal pain and was tolerating clear liquid diet. He was started on bridging with Lovenox and Coumadin therapy. On the morning of 02/08 he again received a dose of Lovenox. On the morning of 02/08 his pain had significantly improved. He tolerated a low fate diet and he was determined stable for discharge. He will start his brand new prescription for Coumadin written by his PCP is an older blood clot in the leg just at the level of the knee so it does seem appropriate that he could be started on Coumadin. Ideally I would have bridged him but Lovenox is not covered by his insurance. We did check both eliquis and xarelto which require a coumadin failure before they will be covered. Patient seen and examined at bedside. Feeling better today. Abdominal pain is quite subsided. Feels as though he can go home and tolerate a diet. Vital signs reviewed and stable. General: non toxic, no distress, appears at stated age Derm: warm, dry Head: atraumatic, normocephalic, symmetric Eyes: EOMI, no lid lag, anicteric sclera Mouth: no lip lesion, mucus membranes moist Cardiovascular: S1S2 reg, no murmur, positive posterior tibial pulse bilateral, Lungs: CTA bilateral, no rhonchi, no rales , no accessory muscle use Abdominal: soft, nontender to palpation, no guarding, no appreciable organomegaly Ext: no gross muscle atrophy, no edema, no contractures Neuro: CN II-XI grossly intact, no focal neuro deficits Psych: Alert, oriented, appropriate affect A total of 35 minutes of time were spent preparing this complex discharge summary . Patient Condition at Discharge: Good Plan - Discharge Summary Discharge Rx Participant: No New Discharge Prescriptions: Continue Lisinopril [Zestril] 20 mg PO DAILY rOPINIRole HCL [Requip] 1 mg PO BID Cyclobenzaprine [Flexeril] 10 mg PO TID PRN PRN Reason: Muscle Spasm amLODIPine [Norvasc] 10 mg PO DAILY Gabapentin [Neurontin] 800 mg PO TID Nicotine 21Mg/24Hr Patch [Habitrol] 1 patch TRANSDERM DAILY PRN PRN Reason: SMOKING CESSATION Montelukast [Singulair] 10 mg PO DAILY oxyCODONE-APAP 10-325MG [Percocet 10-325 mg] 1 tab PO TID Latanoprost/Pf [Latanoprost 0.005% Eye Drop] 1 drop BOTH EYES HS Loratadine [Claritin] 10 mg PO DAILY Albuterol Nebulized [Ventolin Nebulized] 2.5 mg INHALATION RT-QID PRN PRN Reason: Shortness Of Breath Sertraline [Zoloft] 100 mg PO DAILY Levofloxacin [Levaquin] 500 mg PO W/LUNCH Furosemide [Lasix] 20 mg PO DAILY Fluticasone Propion/Salmeterol [Wixela 500-50 Inhub] 1 puff INHALATION RT-BID Tamsulosin [Flomax] 0.4 mg PO DAILY PRN PRN Reason: PROSTATE PAIN Omeprazole 20 mg PO DAILY Warfarin [Coumadin] 2.5 mg PO DAILY Albuterol Sulfate [Albuterol Sulfate Hfa] 2 puff PO RT-QID PRN PRN Reason: Shortness Of Breath Discontinued Etodolac [Lodine] 400 mg PO BID Discharge Medication List Cyclobenzaprine [Flexeril] 10 mg PO TID PRN 06/28/16 [History] Lisinopril [Zestril] 20 mg PO DAILY 06/28/16 [History] rOPINIRole HCL [Requip] 1 mg PO BID 06/28/16 [History] amLODIPine [Norvasc] 10 mg PO DAILY 09/26/16 [History] Gabapentin [Neurontin] 800 mg PO TID 09/18/17 [History] Nicotine 21Mg/24Hr Patch [Habitrol] 1 patch TRANSDERM DAILY PRN 09/18/17 [History] Montelukast [Singulair] 10 mg PO DAILY 01/12/18 [History] oxyCODONE-APAP 10-325MG [Percocet 10-325 mg] 1 tab PO TID 09/12/18 [History] Latanoprost/Pf [Latanoprost 0.005% Eye Drop] 1 drop BOTH EYES HS 05/20/19 [History] Loratadine [Claritin] 10 mg PO DAILY 05/20/19 [History] Albuterol Nebulized [Ventolin Nebulized] 2.5 mg INHALATION RT-QID PRN 11/12/19 [History] Albuterol Sulfate [Albuterol Sulfate Hfa] 2 puff PO RT-QID PRN 02/08/20 [History] Fluticasone Propion/Salmeterol [Wixela 500-50 Inhub] 1 puff INHALATION RT-BID 02/08/20 [History] Furosemide [Lasix] 20 mg PO DAILY 02/08/20 [History] Levofloxacin [Levaquin] 500 mg PO W/LUNCH 02/08/20 [History] Omeprazole 20 mg PO DAILY 02/08/20 [History] Sertraline [Zoloft] 100 mg PO DAILY 02/08/20 [History] Tamsulosin [Flomax] 0.4 mg PO DAILY PRN 02/08/20 [History] Warfarin [Coumadin] 2.5 mg PO DAILY 02/08/20 [History] Follow up Appointment(s)/Referral(s): Albert Chavez MD [REFERRING] - None,Stated [Primary Care Provider] - 1-2 days Activity/Diet/Wound Care/Special Instructions: Activity: as tolerated Diet: low fat Special Instructions: Coumadin, take 2 tabs this evening and tomorrow evening, then decrease to one tablet daily. Please ensure that you have follow-up blood work for Coumadin levels this week with your nurse practitioner. Discharge Disposition: HOME SELF-CARE
== END 2020-02-09 17:15 | disposition home or self-care (01) ==
LOC: EC 22:56 → UNDOADMIN 02-08 01:45 → 5NMEDONC 02-08 01:45 → OBSVTOIN 02-08 09:21 → INTOOBSV 02-08 09:21 → UNDODISIN 02-09 17:15
PROVIDERS: ADMIT Internal Medicine; ATTEND Internal Medicine
DX: K85.20 Alcohol induced acute pancreatitis without necrosis or infection (principal); I25.10 Atherosclerotic heart disease of native coronary artery without angina pectoris; R63.0 Anorexia; I82.4Z2 Acute embolism and thrombosis of unspecified deep veins of left distal lower extremity; J44.9 Chronic obstructive pulmonary disease, unspecified; I10 Essential (primary) hypertension; G89.29 Other chronic pain; M54.9 Dorsalgia, unspecified; M79.7 Fibromyalgia; M19.90 Unspecified osteoarthritis, unspecified site; R05 Cough; I25.2 Old myocardial infarction; H40.9 Unspecified glaucoma; N40.0 Benign prostatic hyperplasia without lower urinary tract symptoms; F10.11 Alcohol abuse, in remission; G62.9 Polyneuropathy, unspecified; I83.90 Asymptomatic varicose veins of unspecified lower extremity; G25.81 Restless legs syndrome; K52.9 Noninfective gastroenteritis and colitis, unspecified; K22.70 Barrett's esophagus without dysplasia; Z86.19 Personal history of other infectious and parasitic diseases; Z96.651 Presence of right artificial knee joint; Z98.890 Other specified postprocedural states; F41.9 Anxiety disorder, unspecified; F32.9 Major depressive disorder, single episode, unspecified; F17.200 Nicotine dependence, unspecified, uncomplicated; Z82.3 Family history of stroke; Z82.49 Family history of ischemic heart disease and other diseases of the circulatory system; Z81.1 Family history of alcohol abuse and dependence; Z83.3 Family history of diabetes mellitus; Z83.6 Family history of other diseases of the respiratory system; Z79.82 Long term (current) use of aspirin; Z79.51 Long term (current) use of inhaled steroids; Z79.01 Long term (current) use of anticoagulants; Z79.891 Long term (current) use of opiate analgesic; Z79.899 Other long term (current) drug therapy; Z88.0 Allergy status to penicillin; K29.70 Gastritis, unspecified, without bleeding; K70.30 Alcoholic cirrhosis of liver without ascites
CPT/HCPCS: 96376 ×2; 96361 ×2; 96372 ×3; 96374; 96375; 99284; 36415 ×2; 94640 ×2; 93005; 80053 ×3; 82150; 82550; 83605 ×2; 83690 ×2; 83735; 85025 ×2; 85027; 85610 ×3; 85730; G0378 ×2; G0480; U0003; J3411; J2405; J1650 ×2; J1170 ×2; C9113 ×2; 80320

== ENCOUNTER → 2020-02-21 | Outpatient (CLI) | payer OTHER ==
--- NOTE | 2020-02-21 11:29 | CT ---
EXAMINATION TYPE: CT brain wo con DATE OF EXAM: 02/21/2020 COMPARISON: 05/23/2018 HISTORY: memory loss CT DLP: 894.[address] of the brain was performed. The ventricles, basal cisterns and sulci overlying the cerebral convexities demonstrate mild enlargem ent. There is no evidence for intracranial hemorrhage or sulcal effacement. There is decreased attenuation about the periventricular white matter and deep white matter of both c erebral hemispheres, compatible with chronic small vessel ischemia. Differential diagnosis does inclu de demyelination. No mass effects are seen.No midline shift. Osseous calvarium is intact. If symptoms persist consider MRI. IMPRESSION: 1. Age related atrophic and chronic small vessel ischemic change without acute intracranial process s een at this time.
--- NOTE | 2020-02-21 11:34 | CT ---
EXAMINATION TYPE: CT sinus wo con DATE OF EXAM: 02/21/2020 COMPARISON: None HISTORY: sinus congestion, cough CT DLP: 645.4 mGycm. Automated Exposure Control for Dose Reduction was Utilized. TECHNIQUE: CT scan of the sinuses is performed without contrast, axial images are obtained, coronal r eformatted images are also reviewed. FINDINGS: There is a nasal septal deviation is mucosal thickening involving the ethmoid and maxillary sinuses with moderate to severe changes involving the ethmoids mild to moderate changes maxillary si nuses. Left ostiomeatal complex is patent and the right ostiomeatal complex is occluded. Mild mucosal thickening and changes of chronic sinusitis the frontal sinus. No air-fluid levels. Bilateral sangita bullosa greater on the left incidentally noted. Visualized portion of mastoid air cells show no abnormal opacification. The globes are intact bilate rally. Nasopharynx and oropharynx symmetric. Degenerative change of the brain noted. IMPRESSION: 1. Mild to moderate chronic sinusitis most marked involving the ethmoid air cells. Occlusion of the r ight ostiomeatal complex.
--- NOTE | 2020-02-21 11:36 | XR ---
EXAMINATION TYPE: XR chest 2V DATE OF EXAM: 02/21/2020 COMPARISON: 05/20/2019 HISTORY: Shortness of breath TECHNIQUE: Frontal and lateral views of the chest are obtained. FINDINGS: Scattered senescent parenchymal changes noted. Hyperinflation compatible with COPD. No evidence for infiltrate. No evidence for atelectasis. Heart size is stable. Mediastinal structures are stable and grossly unremarkable. No evidence for hilar prominence. Degenerative changes dorsal spine. IMPRESSION: 1. No evidence for acute pulmonary disease.
== END | disposition home or self-care (01) ==
LOC: RADCTMAIN 11:02
PROVIDERS: ATTEND Pediatrics
DX: G31.1 Senile degeneration of brain, not elsewhere classified (principal); I73.89 Other specified peripheral vascular diseases; J32.8 Other chronic sinusitis; J34.89 Other specified disorders of nose and nasal sinuses; J01.90 Acute sinusitis, unspecified; R05 Cough
CPT/HCPCS: 70450; 70486; 71046

== ENCOUNTER → 2020-04-30 | Outpatient (CLI) | payer OTHER ==
--- NOTE | 2020-04-30 13:02 | US ---
EXAMINATION TYPE: US venous doppler duplex LE LT DATE OF EXAM: 04/30/2020 12:38 PM COMPARISON: NONE CLINICAL HISTORY: DVT I82.409. History of DVT, patient on blood thinner SIDE PERFORMED: left TECHNIQUE: The lower extremity deep venous system is examined utilizing real time linear array sonog miguel a with graded compression, doppler sonography and color-flow sonography. VESSELS IMAGED: External Iliac Vein (EIV) Common Femoral Vein Deep Femoral Vein Greater Saphenous Vein * Femoral Vein Popliteal Vein Small Saphenous Vein * Proximal Calf Veins (* superficial vessels) Left Leg: *positive for non-occlusive DVT left popliteal vein as on prior exam IMPRESSION: Findings compatible with DVT.
== END | disposition home or self-care (01) ==
LOC: RADUSWWP 12:06
PROVIDERS: ATTEND Pediatrics
DX: I82.409 Acute embolism and thrombosis of unspecified deep veins of unspecified lower extremity (principal)

== ENCOUNTER 2020-07-02 06:18 | Inpatient (IN) | payer OTHER ==
[2020-07-02] MEDS ORDERED: HYDROmorphone 0.5 MG/0.5 ML SYRINGE IVP STA (06:38)
[2020-07-02] MEDS ORDERED: SODIUM CHLORIDE 0.9% 1,000 ML IV STA (06:38)
[2020-07-02] MEDS ORDERED: SODIUM CHLORIDE 0.9% 500 ML 500 ML IV STA (06:38)
[2020-07-02] MEDS ORDERED: ONDANSETRON ODT 8 MG TAB.RAPDIS PO STA (06:38)
[2020-07-02 06:56] LABS: Basophils # (A) 0.1 k/uL (0-0.2); Basophils % (A) 1 %; Eosinophils # (A) 0.2 k/uL (0-0.7); Eosinophils % (A) 2 %; HCT 43.8 % (39.0-53.0); Lymphocytes # (A) 1.7 k/uL (1.0-4.8); Lymphocytes % (A) 17 %; MCH 32.3 pg (25.0-35.0); MCHC 34.2 g/dL (31.0-37.0); MCV 94.7 fL (80.0-100.0); Mean Platelet Volume 6.7; Monocytes # (A) 0.5 k/uL (0-1.0); Monocytes % (A) 5 %; Neutrophils # (A) 7.5 k/uL (1.3-7.7); Neutrophils % (A) 75 %; Platelet Count 245 k/uL (150-450); RBC 4.63 m/uL (4.30-5.90); RDW 13.2 % (11.5-15.5)
[2020-07-02 07:05] LABS: ALT 41 U/L (4-49); AST 65 U/L (17-59); African American GFR (CKD) 64 (>60 ml/min/1.73 sqM); Alkaline Phosphatase 70 U/L (38-126); Anion Gap 12 mmol/L; Blood Urea Nitrogen 17 mg/dL (9-20); Calcium 8.8 mg/dL (8.4-10.2); Carbon Dioxide 22 mmol/L (22-30); Chloride 99 mmol/L (98-107); Glucose 120 mg/dL (74-99); Non-African American GFR(CKD) 56 (>60 ml/min/1.73 sqM); Potassium 4.3 mmol/L (3.5-5.1); Sodium 133 mmol/L (137-145); Total Bilirubin 0.6 mg/dL (0.2-1.3)
--- NOTE | 2020-07-02 07:20 | ED ---
Abdominal Pain HPI - General Source: patient, family Mode of arrival: ambulatory <Veronica Casillas - Last Filed: 07/02/20 10:35> <GennarocelestinoJocelyne Trinh - Last Filed: 07/04/20 13:53> - General Chief Complaint: Abdominal Pain Stated Complaint: abd pain Time Seen by Provider: 07/02/20 06:33 - History of Present Illness Initial Comments: 60yo male presenting today for cc of "pancreatitis again". Patient states that he is an daily drinker (heavy), he states he drinks a lot of beers. Patient states that his symptoms began last night, epigastric pain radiating to the back with nausea. Denies vomiting, fevers, diarrhea, chest pain, SOB upper respira tory symptoms. Patient denies additional complaints. patient appears nontoxic on arrival. (Veronica Casillas) - Related Data Home Medications Medication Instructions Recorded Confirmed Cyclobenzaprine [Flexeril] 10 mg PO TID PRN 06/28/16 07/02/20 lisinopriL [Zestril] 20 mg PO DAILY 06/28/16 07/02/20 rOPINIRole HCL [Requip] 1 mg PO TID 06/28/16 07/02/20 amLODIPine [Norvasc] 10 mg PO DAILY 09/26/16 07/02/20 Gabapentin [Neurontin] 800 mg PO TID 09/18/17 07/02/20 Nicotine 21Mg/24Hr Patch [Habitrol] 1 patch TRANSDERM DAILY PRN 09/18/17 07/02/20 Montelukast [Singulair] 10 mg PO DAILY 01/12/18 07/02/20 oxyCODONE-APAP 10-325MG [Percocet 1 tab PO TID 09/12/18 07/02/20 10-325 mg] Latanoprost/Pf [Latanoprost 0.005% 1 drop BOTH EYES HS 05/20/19 07/02/20 Eye Drop] Loratadine [Claritin] 10 mg PO DAILY 05/20/19 07/02/20 Albuterol Nebulized [Ventolin 2.5 mg INHALATION RT-QID PRN 11/12/19 07/02/20 Nebulized] Albuterol Sulfate [Albuterol 2 puff INHALATION RT-QID PRN 02/08/20 07/02/20 Sulfate Hfa] Fluticasone Propion/Salmeterol 1 puff INHALATION RT-BID 02/08/20 07/02/20 [Wixela 500-50 Inhub] Furosemide [Lasix] 20 mg PO DAILY 02/08/20 07/02/20 Omeprazole 20 mg PO DAILY 02/08/20 07/02/20 Sertraline [Zoloft] 50 mg PO DAILY 02/08/20 07/02/20 Tamsulosin [Flomax] 0.4 mg PO DAILY PRN 02/08/20 07/02/20 Warfarin [Coumadin] 2.5 mg PO DAILY 02/08/20 07/02/20 Fluticasone Nasal [place] [Flonase 2 spr EA NOSTRIL DAILY PRN 07/02/20 07/02/20 Nasal [place]] Naproxen [Naprosyn] 500 mg PO BID 07/02/20 07/02/20 Allergies Allergy/AdvReac Type Severity Reaction Status Date / Time pregabalin [From Lyrica] Allergy Swelling Verified 07/02/20 08:36 amoxicillin trihydrate AdvReac Rapid Verified 07/02/20 08:36 [From Augmentin] Heart Rate potassium clavulanate AdvReac FELT LIKE Verified 07/02/20 08:36 [From Augmentin] HE WAS GOING TO PASS OUT FAST HEARTBEAT" Review of Systems ROS Other: All systems not noted in ROS Statement are negative. <Veronica Casillas - Last Filed: 07/02/20 10:35> ROS Other: All systems not noted in ROS Statement are negative. <Jocelyne Siegel - Last Filed: 07/04/20 13:53> ROS Statement: Those systems with pertinent positive or pertinent negative responses have been documented in the HPI. Past Medical History Past Medical History: Coronary Artery Disease (CAD), COPD, Eye Disorder, Fibromyalgia, Hypertension, Myocardial Infarction (TN), Osteoarthritis (OA), Prostate Disorder, Vascular Disorder Additional Past Medical History / Comment(s): Chronic cough, chronic pancreatitis, past alcohol abuse-pt states occasionally now, bilateral eye glaucoma, neuropathy bilateral feet, poor circulation to legs, varicose veins, RLS, BPH with surgery, colitis, gastritis, Alvarenga's esophagus, shingles in 2013 and states joint pain since, chronic low back pain, DDD. Last Myocardial Infarction Date:: 09/02/16 History of Any Multi-Drug Resistant Organisms: None Reported Past Surgical History: Appendectomy, Heart Catheterization, Joint Replacement, Orthopedic Surgery, Prostate Surgery Additional Past Surgical History / Comment(s): R knee arthroscopy for torn meniscus, knee replacement; R total knee arthroplasty, EGD, colonoscopy, TURP Past Anesthesia/Blood Transfusion Reactions: No Reported Reaction Past Psychological History: Anxiety, Depression Smoking Status: Former smoker Past Alcohol Use History: Daily Past Drug Use History: None Reported - Past Family History Father Family Medical History: CVA/TIA, Hypertension Additional Family Medical History / Comment(s): Father at the age of 38yrs from HTN/CVA. He was an alcoholic. Mother Family Medical History: COPD, Diabetes Mellitus Additional Family Medical History / Comment(s): Mother of emphysema at the age of 74 yrs (2003), mom has hx of drinking and smoking <Veronica Casillas - Last Filed: 07/02/20 10:35> General Exam <Veronica Casillas - Last Filed: 07/02/20 10:35> - General Exam Comments Initial Comments: General: The patient is awake and alert, in no distress, and does not appear acutely ill. Eye: +3 mm pupils are equal, round and reactive to light, extra-ocular movements are intact. No nystagmus. There is normal conjunctiva bilaterally. No signs of icterus. Ears, nose, mouth and throat: There are moist mucous membranes and no oral lesions. Neck: The neck is supple, there is no tenderness or JVD. Cardiovascular: There is a regular rate and rhythm. No murmur, rub or gallop is appreciated. Respiratory: Lungs are clear to auscultation, respirations are non-labored, breath sounds are equal. No wheezes, stridor, rales, or rhonchi. Gastrointestinal: Obese, distended abdomen, exquisitely tender in epigastric region, abdomen without masses or organomegaly noted. There is no rebound or guarding present. Musculoskeletal: Normal ROM, no tenderness. Strength 5/5. Sensation intact. Radial pulses equal bilaterally 2+. Neurological: A&O x 3. CN II-XII intact grossly, There are no obvious motor or sensory deficits. Coordination appears grossly intact. Speech is normal. Skin: Skin is warm and dry and no rashes or lesions are noted. Psychiatric: Cooperative, appropriate mood & affect, normal judgment. (Veronica Casillas) Course Vital Signs 07/02/20 07/02/20 07/02/20 06:21 08:06 11:51 Temperature 97.7 F Pulse Rate 72 70 78 Respiratory 20 18 18 Rate Blood Pressure 111/66 109/63 131/76 O2 Sat by Pulse 98 95 98 Oximetry 07/02/20 15:20 Temperature 97.8 F Pulse Rate 88 Respiratory 18 Rate Blood Pressure 144/81 O2 Sat by Pulse 96 Oximetry Medical Decision Making - Lab Data Result diagrams: 07/02/20 06:46 07/02/20 06:46 <Veronica Casillas - Last Filed: 07/02/20 10:35> - Lab Data Result diagrams: 07/03/20 07:18 07/04/20 05:22 <Jocelyne Siegel - Last Filed: 07/04/20 13:53> - Medical Decision Making Lipase >49160, amylase elevated. hx of ETOH abuse. US pending. patient NPO, no hx of heart failure therefore will aggressively hydrate. Patient agreeable to admission. Dr. Tamayo accepted admission, GI on consult. US performed with mildly thicken GB with sludge. Discussing case with attending we feel fluid near GB most liekly secondary to the severe pancreatitis, no stones. The measurement of thickening is borderline, rocephin initiated as precaution but acute c holecystitis felt less likely at this time, will await GI recommendations. (Veronica Casillas) I was available for consultation in the emergency department. The history and physical exam were done by the midlevel provider. I was consulted for this patients care. I reviewed the case with the midlevel provider and based on their presentation of the patient, I agree with the assessment, medical decision making and plan of care as documented. Chart was dictated using [employer] dictation software. Attempts were made to correct any dictation errors however some typographical errors may persist. Patient was seen during a national state of emergency due to the Covid-19 ifeoma arsalan. (Jocelyne Siegel) - Lab Data Lab Results 07/02/20 07/02/20 07/02/20 Range/Units 06:46 06:46 06:46 WBC 10.0 (3.8-10.6) k/uL RBC 4.63 (4.30-5.90) m/uL Hgb 15.0 (13.0-17.5) gm/dL Hct 43.8 (39.0-53.0) % MCV 94.7 (80.0-100.0) fL MCH 32.3 (25.0-35.0) pg MCHC 34.2 (31.0-37.0) g/dL RDW 13.2 (11.5-15.5) % Plt Count 245 (150-450) k/uL MPV 6.7 Neutrophils % 75 % Lymphocytes % 17 % Monocytes % 5 % Eosinophils % 2 % Basophils % 1 % Neutrophils # 7.5 (1.3-7.7) k/uL Lymphocytes # 1.7 (1.0-4.8) k/uL Monocytes # 0.5 (0-1.0) k/uL Eosinophils # 0.2 (0-0.7) k/uL Basophils # 0.1 (0-0.2) k/uL Sodium 133 L (137-145) mmol/L Potassium 4.3 (3.5-5.1) mmol/L Chloride 99 (98-107) mmol/L Carbon Dioxide 22 (22-30) mmol/L Anion Gap 12 mmol/L BUN 17 (9-20) mg/dL Creatinine 1.37 H (0.66-1.25) mg/dL Est GFR (CKD-EPI)AfAm 64 (>60 ml/min/1.73 sqM) Est GFR (CKD-EPI)NonAf 56 (>60 ml/min/1.73 sqM) Glucose 120 H (74-99) mg/dL Plasma Lactic Acid Carlos Manuel 1.7 (0.7-2.0) mmol/L Calcium 8.8 (8.4-10.2) mg/dL Total Bilirubin 0.6 (0.2-1.3) mg/dL AST 65 H (17-59) U/L ALT 41 (4-49) U/L Alkaline Phosphatase 70 (38-126) U/L Troponin I (0.000-0.034) ng/mL Total Protein 7.0 (6.3-8.2) g/dL Albumin 4.0 (3.5-5.0) g/dL Amylase 2168 H* (30-110) U/L Lipase >78561 H (23-300) U/L 07/02/20 Range/Units 06:46 WBC (3.8-10.6) k/uL RBC (4.30-5.90) m/uL Hgb (13.0-17.5) gm/dL Hct (39.0-53.0) % MCV (80.0-100.0) fL MCH (25.0-35.0) pg MCHC (31.0-37.0) g/dL RDW (11.5-15.5) % Plt Count (150-450) k/uL MPV Neutrophils % % Lymphocytes % % Monocytes % % Eosinophils % % Basophils % % Neutrophils # (1.3-7.7) k/uL Lymphocytes # (1.0-4.8) k/uL Monocytes # (0-1.0) k/uL Eosinophils # (0-0.7) k/uL Basophils # (0-0.2) k/uL Sodium (137-145) mmol/L Potassium (3.5-5.1) mmol/L Chloride (98-107) mmol/L Carbon Dioxide (22-30) mmol/L Anion Gap mmol/L BUN (9-20) mg/dL Creatinine (0.66-1.25) mg/dL Est GFR (CKD-EPI)AfAm (>60 ml/min/1.73 sqM) Est GFR (CKD-EPI)NonAf (>60 ml/min/1.73 sqM) Glucose (74-99) mg/dL Plasma Lactic Acid Carlos Manuel (0.7-2.0) mmol/L Calcium (8.4-10.2) mg/dL Total Bilirubin (0.2-1.3) mg/dL AST (17-59) U/L ALT (4-49) U/L Alkaline Phosphatase (38-126) U/L Troponin I <0.012 (0.000-0.034) ng/mL Total Protein (6.3-8.2) g/dL Albumin (3.5-5.0) g/dL Amylase (30-110) U/L Lipase (23-300) U/L - EKG Data EKG Comments: Ventricular rate 72 bpm, ND interval 106 ms, QRS ratio 128 ms, QT/QTC 478/523. This is sinus rhythm with short ND noted premature supraventricular complexes. no st elevation or depression. (Veronica Casillas) Disposition Is patient prescribed a controlled substance at d/c from ED?: No Time of Disposition: 09:30 Decision to Admit Reason: Admit from EC Decision Date: 07/02/20 Decision Time: 09:30 <Veronica Casillas - Last Filed: 07/02/20 10:35> <Jocelyne Siegel - Last Filed: 07/04/20 13:53> Clinical Impression: Pancreatitis, Abdominal pain, Gallbladder sludge Disposition: ADMITTED IP TO THIS HOSP Condition: Stable
[2020-07-02 07:36] LABS: Lipase >20000 U/L (23-300)
[2020-07-02 07:37] LABS: Amylase 2168 U/L (30-110)
[2020-07-02] MEDS ORDERED: HYDROmorphone 1 MG/ML 1 ML SYRINGE IVP STA ×2 (07:38→07:47)
[2020-07-02] MEDS ORDERED: THIAMINE 100 MG/ML 2 ML VIAL IM STA (07:44)
[2020-07-02] MEDS ORDERED: LORazepam 2 MG/ML INJ IV PRN ×3 (07:44)
[2020-07-02] MEDS ORDERED: NALOXONE 0.4 MG/ML 1 ML VIAL IV PRN (07:45)
--- NOTE | 2020-07-02 09:14 | US ---
EXAMINATION TYPE: US abdomen limited DATE OF EXAM: 07/02/2020 COMPARISON: CT dated 06/20/2019 CLINICAL HISTORY: RUQ pain. RUQ pain, pt states history of pancreatitis EXAM MEASUREMENTS: Liver Length: 22.3 cm Gallbladder Wall: 0.4 cm CBD: 0.8 cm Right Kidney: 11.7 x 5.7 x 5.6 cm Pancreas: Obscured by bowel gas Liver: Enlarged, heterogeneous, difficult to penetrate Gallbladder: Distended, probable sludge in GB, wall thickened Evidence for sonographic Kelly's sign: Yes CBD: Overlying Dilated Right Kidney: wnl There is no ascites. IMPRESSION: Findings likely represent hepatic steatosis, there is hepatomegaly. Probable tumefactive sludge within the gallbladder, there is distended appearance of the gallbladder with borderline gallb ladder wall thickening, correlate for cholecystitis, question borderline biliary duct dilation.
[2020-07-02] MEDS: DIAZEPAM 5 MG/ML 2 ML INJ IVP SCH ×2 (10:01→17:06)
[2020-07-02 10:20] LABS: Appearance,Urine Clear (Clear); Bilirubin,Urine Negative (Negative); Blood,Urine Negative (Negative); Color,Urine Yellow; Glucose,Urine (UA) Negative (Negative); Ketones,Urine Negative (Negative); Leukocyte Esterase,Urine Negative (Negative); Nitrite,Urine Negative (Negative); PH, Urine 5.5 (5.0-8.0); Protein,Urine Trace (Negative); Specific Gravity,Urine 1.017 (1.001-1.035)
[2020-07-02] MEDS ORDERED: HYDROmorphone 1 MG/ML 1 ML SYRINGE IM PRN (11:45)
[2020-07-02] MEDS ORDERED: ALBUTEROL HFA INHALER INHALATION PRN (11:46)
[2020-07-02] MEDS ORDERED: CYCLOBENZAPRINE 10 MG TAB PO PRN (11:46)
[2020-07-02] MEDS ORDERED: NICOTINE 21MG/24HR PATCH TRANSDERM PRN (11:46)
[2020-07-02] MEDS ORDERED: TAMSULOSIN 0.4 MG CAP.ER.24H PO PRN (11:46)
[2020-07-02] MEDS ORDERED: ALBUTEROL NEBULIZED 2.5 MG/3 ML INHALATION PRN (11:46)
[2020-07-02] MEDS: HYDROmorphone 1 MG/ML 1 ML SYRINGE IVP PRN ×3 (11:48→19:11)
[2020-07-02] MEDS: PANTOPRAZOLE 40 MG/10 ML VIAL IVP SCH ×2 (11:48→20:15)
[2020-07-02] MEDS ORDERED: NON FORMULARY DRUG (Omeprazole [Omeprazole] 20 MG Capsule.Dr) PO SCH (12:00)
[2020-07-02] MEDS ORDERED: oxyCODONE-APAP 10-325MG 1 EACH TAB PO SCH (12:00)
[2020-07-02] MEDS: oxyCODONE-APAP 10-325MG 1 EACH TAB PO PRN ×4 (12:42→21:27)
[2020-07-02] MEDS: ONDANSETRON 4 MG/2 ML VIAL IVP PRN (13:11)
[2020-07-02] MEDS: amLODIPine 10 MG TAB PO SCH (14:54)
[2020-07-02] MEDS: MONTELUKAST 10 MG TAB PO SCH (14:54)
[2020-07-02] MEDS: lisinopriL 20 MG TAB PO SCH (14:54)
[2020-07-02] MEDS: GABAPENTIN 400 MG CAP PO SCH ×3 (14:55→20:17)
[2020-07-02] MEDS: SYMBICORT 160-4.5 MCG INHALER INHALATION SCH ×2 (14:56→20:04)
[2020-07-02] MEDS: SERTRALINE 50 MG TAB PO SCH (15:02)
--- NOTE | 2020-07-02 15:35 | CONS ---
CONSULTATION DATE OF DICTATION: 07/02/2020 REASON FOR CONSULTATION: Acute pancreatitis. HISTORY OF PRESENT ILLNESS: The patient is a 60-year-old white male with heavy alcohol abuse, chronic relapsing pancreatitis with multiple hospitalizations in the past, came to the emergency room complaining of severe epigastric pain that started yesterday. He had a couple of episodes of emesis. The pain continued to progressively get worse. He came to the emergency room and was noted to have elevated lipase of more than 20,000. This morning he continues to feel the same requiring pain medications every 3 hours. He denies any fever, chills, or night sweats. He continues to drink alcohol heavily and his last alcohol drink was about 2 days ago. PAST MEDICAL HISTORY: Chronic relapsing pancreatitis with multiple hospitalizations, recurrent upper gastrointestinal bleed, secondary to liver cirrhosis and esophageal varices, history of hypertension, hyperlipidemia, alcohol use. MEDICATIONS: At home, Flexeril, Zestril, Requip, Norvasc, Neurontin, Habitrol, Singulair, Percocet, Claritin, albuterol, omeprazole, Lasix, Zoloft, Flomax, Coumadin, Flonase, naproxen. PAST SURGICAL HISTORY: Appendectomy, cardiac catheterization, right knee arthroscopy, prostate surgery, multiple EGDs and colonoscopies in the past. SOCIAL HISTORY: Former smoker, heavy alcohol use on a daily basis for more than 30 years. FAMILY HISTORY: Father had CVA and hypertension. Mother has diabetes mellitus and COPD. REVIEW OF SYSTEMS: CARDIOPULMONARY: He denies any chest pain or shortness of breath. GENITOURINARY: He does complain of some dysuria. NEUROLOGY: Unremarkable. PSYCHIATRIC: Unremarkable. ENT: Vision unremarkable. ONCOLOGY: Unremarkable. HEMATOLOGY: Unremarkable. CONSTITUTIONAL: No recent weight loss. No fever, chills, night sweats. PHYSICAL EXAMINATION: He appears comfortable, in no apparent distress. VITAL SIGNS: Stable. Blood pressure is 131/76, pulse rate 78, temperature 97.7. HEENT: Examination unremarkable, conjunctivae are pink, sclerae nonicteric, oral cavity no lesions. NECK: No JVD or lymph node enlargement. CHEST: Clear to auscultation. HEART: Regular rate and rhythm. ABDOMEN: Distended. There was severe tenderness in the epigastric area. Rest of the abdomen had mild diffuse tenderness. EXTREMITIES: No pedal edema. NEURO: He is alert and oriented x3. No focal deficits. LABS: From today WBC 10, hemoglobin 15, platelets 245. BUN 17, creatinine 1.37. AST and ALT are 65 and 41 respectively. T-bilirubin and alkaline phosphatase are normal, amylase 2166 and lipase more than 20,000, jackson virus PCR is negative. Ultrasound of the abdomen done in the emergency room did show evidence of hepatic steatosis and hepatomegaly. Some sludge in the gallbladder. Borderline CBD dilation. Pancreas was obscured by bowel gas. IMPRESSION: 1. Chronic relapsing pancreatitis with acute exacerbation that is alcohol related. Patient with multiple hospitalizations in the past with recurrent pancreatitis presents with abdominal pain for the last 2 day's duration and noted to have elevated lipase consistent with acute flare up. Serum transaminases are within normal limits with makes it unlikely we are dealing with any biliary pancreatitis. Ultrasound of the abdomen did show some sludge in the gallbladder, but no gallstones noted. 2. Heavy alcohol abuse. 3. Prior history cirrhosis of the liver with esophageal variceal bleeding in the past. 4. History of hypertension and hyperlipidemia. 5. Chronic pain syndrome. RECOMMENDATION: 1. Keep him n.p.o. 2. Pain medications as needed. 3. Aggressive IV hydration. 4. Abstinence from alcohol. 5. Repeat labs in the morning and will follow with you closely. Thank you for this consultation. CRISTA / TONYN: [id number] /
[2020-07-02] MEDS: THIAMINE 100 MG TAB PO SCH (17:06)
--- NOTE | 2020-07-02 22:34 | P.HPIM ---
History of Present Illness H&P Date: 07/02/20 Chief Complaint: Abdominal pain History of presenting complaint: This is a [address] Chavez. Chronic stable medical conditions include COPD, fibromyalgia, hypertension, osteoarthritis, chronic pancreatitis from alcoholism, peripheral neuropathy varicose veins, restless leg syndrome, BPH surgery, Alvarenga's esophagus and chronic low back pain from osteoarthritis. Patient has continued to drink about 4-5 beers a day. Conditions to smoke cigarettes. Patient presents with increasing abdominal pain from yesterday up her abdomen. Along with nausea vomiting. Normally has one bowel movement a day. Has a congestive cough and some wheezing. Denies any fever and chills. Admitted with acute severe pancreatitis. Review of systems: GEN.: Tired EYES: None HEENT: None NECK: None RESPIRATORY: As above CARDIOVASCULAR: None GASTROINTESTINAL: As above GENITOURINARY: None MUSCULOSKELETAL: Joint pains LYMPHATICS: None HEMATOLOGICAL: None PSYCHIATRY: None NEUROLOGICAL: Numbness in both the legs Social history: Patient lives with his sister Scott May sometime uses a cane. Smoked for close to 42 years. Smoking about half a pack a day. Drinking alcohol for years. Stopped for a short time. At about 4-5 beers a day. Physical examination: VITAL SIGNS: 97.7, 72, 20, 111/66, 98% room air GENERAL: BMI 29.8, laying in bed, tired EYES: Pupils equal. Conjunctiva normal. HEENT: External appearance of nose and ears normal, oral cavity grossly normal. NECK: JVD not raised; masses not palpable. HEART: First and second heart sounds are normal; minimal edema. LUNGS: Respiratory rate increased, diminished breath sounds. Prolonged expiration, some extremity crackles Some wheezing ABDOMEN: Soft, epigastric tenderness, no guarding or rigidity, liver spleen not palpable, no masses palpable. PSYCH: Alert and oriented x3; mood and affect slightly anxious NEUROLOGICAL: Cranial nerves grossly intact; no facial asymmetry, power and sensation grossly intact. LYMPHATICS: No lymph nodes palpable in the axilla and neck INVESTIGATIONS, reviewed in the clinical context: White count and hemoglobin 15 platelets 245 potassium 4.3 creatinine 1.37 Amylase 2168, lipase greater than 20,000 COVID 19 P/Cr-not detected EKG tracing personally reviewed by me-normal sinus rhythm Abdominal ultrasound-hepatomegaly, tumefactive sludge in the gallbladder and abdominal gallbladder distention and wall thickening Assessment: -Acute severe pancreatitis in a patient with known chronic pancreatitis from alcoholism -Acute COPD exacerbation in a cigarette smoker -Gallbladder sludge with gallbladder wall thickening some dilatation-cannot rule out acute/chronic cholecystitis -Chronic fibromyalgia -Essential hypertension -Primary osteoarthritis -Alcoholic peripheral neuropathy -restless leg syndrome -Alvarenga's esophagus -Alcohol use disorder Plan: Patient remained nothing by mouth. Ice chips. IV fluids. Consult GI and general surgery. Nicotine patch. DVT prophylaxis. CIWA scale. Past Medical History Past Medical History: Coronary Artery Disease (CAD), COPD, Eye Disorder, Fibromyalgia, Hypertension, Myocardial Infarction ([place]), Osteoarthritis (OA), Prostate Disorder, Vascular Disorder Additional Past Medical History / Comment(s): Chronic cough, chronic pancreatitis, past alcohol abuse-pt states occasionally now, bilateral eye glaucoma, neuropathy bilateral feet, poor circulation to legs, varicose veins, RLS, BPH with surgery, colitis, gastritis, Alvarenga's esophagus, shingles in 2012 and states joint pain since, chronic low back pain, DDD. Last Myocardial Infarction Date:: 09/02/16 History of Any Multi-Drug Resistant Organisms: None Reported Past Surgical History: Appendectomy, Heart Catheterization, Joint Replacement, Orthopedic Surgery, Prostate Surgery Additional Past Surgical History / Comment(s): R knee arthroscopy for torn meniscus, knee replacement; R total knee arthroplasty, EGD, colonoscopy, TURP Past Anesthesia/Blood Transfusion Reactions: No Reported Reaction Past Psychological History: Anxiety, Depression Smoking Status: Former smoker Past Alcohol Use History: Daily Past Drug Use History: None Reported - Past Family History Father Family Medical History: CVA/TIA, Hypertension Additional Family Medical History / Comment(s): Father at the age of 38yrs from HTN/CVA. He was an alcoholic. Mother Family Medical History: COPD, Diabetes Mellitus Additional Family Medical History / Comment(s): Mother of emphysema at the age of 74 yrs (2003), mom has hx of drinking and smoking Medications and Allergies Home Medications Medication Instructions Recorded Confirmed Type Cyclobenzaprine [Flexeril] 10 mg PO TID PRN 06/28/16 07/02/20 History lisinopriL [Zestril] 20 mg PO DAILY 06/28/16 07/02/20 History rOPINIRole HCL [Requip] 1 mg PO TID 06/28/16 07/02/20 History amLODIPine [Norvasc] 10 mg PO DAILY 09/26/16 07/02/20 History Gabapentin [Neurontin] 800 mg PO TID 09/18/17 07/02/20 History Nicotine 21Mg/24Hr Patch [Habitrol] 1 patch TRANSDERM DAILY PRN 09/18/17 07/02/20 History Montelukast [Singulair] 10 mg PO DAILY 01/12/18 07/02/20 History oxyCODONE-APAP 10-325MG [Percocet 1 tab PO TID 09/12/18 07/02/20 History 10-325 mg] Latanoprost/Pf [Latanoprost 0.005% 1 drop BOTH EYES HS 05/20/19 07/02/20 History Eye Drop] Loratadine [Claritin] 10 mg PO DAILY 05/20/19 07/02/20 History Albuterol Nebulized [Ventolin 2.5 mg INHALATION RT-QID PRN 11/12/19 07/02/20 History Nebulized] Albuterol Sulfate [Albuterol 2 puff INHALATION RT-QID PRN 02/08/20 07/02/20 History Sulfate Hfa] Fluticasone Propion/Salmeterol 1 puff INHALATION RT-BID 02/08/20 07/02/20 History [Wixela 500-50 Inhub] Furosemide [Lasix] 20 mg PO DAILY 02/08/20 07/02/20 History Omeprazole 20 mg PO DAILY 02/08/20 07/02/20 History Sertraline [Zoloft] 50 mg PO DAILY 02/08/20 07/02/20 History Tamsulosin [Flomax] 0.4 mg PO DAILY PRN 02/08/20 07/02/20 History Warfarin [Coumadin] 2.5 mg PO DAILY 02/08/20 07/02/20 History Fluticasone Nasal [place] [Flonase 2 spr EA NOSTRIL DAILY PRN 07/02/20 07/02/20 History Nasal [place]] Naproxen [Naprosyn] 500 mg PO BID 07/02/20 07/02/20 History Allergies Allergy/AdvReac Type Severity Reaction Status Date / Time pregabalin [From Lyrica] Allergy Swelling Verified 07/02/20 08:36 amoxicillin trihydrate AdvReac Rapid Verified 07/02/20 08:36 [From Augmentin] Heart Rate potassium clavulanate AdvReac FELT LIKE Verified 07/02/20 08:36 [From Augmentin] HE WAS GOING TO PASS OUT FAST HEARTBEAT" Physical Exam Vitals: Vital Signs Temp Pulse Resp BP Pulse Ox 07/02/20 08:06 70 18 109/63 95 07/02/20 06:21 97.7 F 72 20 111/66 98 Intake and Output 07/01/20 07/02/20 07/02/20 22:59 06:59 14:59 Other: Weight 99.79 kg Results CBC & Chem 7: 07/02/20 06:46 07/02/20 06:46 Labs: Abnormal Lab Results - Last 24 Hours (Table) 07/02/20 07/02/20 Range/Units 06:46 10:00 Sodium 133 L (137-145) mmol/L Creatinine 1.37 H (0.66-1.25) mg/dL Glucose 120 H (74-99) mg/dL AST 65 H (17-59) U/L Amylase 2168 H* (30-110) U/L Lipase >51816 H (23-300) U/L Urine Protein Trace H (Negative)
[2020-07-02] MEDS: BUDESONIDE 1 MG/2 ML NEBU INHALATION SCH ×2 (23:43→23:45)
[2020-07-02] MEDS: SODIUM CHLORIDE 0.9% 1,000 ML IV SCH (23:44)
[2020-07-03] MEDS: IPRATROPIUM-ALBUTEROL 3 ML NEB INHALATION SCH ×6 (01:35→19:23)
[2020-07-03] MEDS: SODIUM CHLORIDE 0.9% 1,000 ML IV SCH ×3 (02:41→17:07)
[2020-07-03] MEDS: HYDROmorphone 1 MG/ML 1 ML SYRINGE IVP PRN ×7 (02:41→23:33)
[2020-07-03] MEDS: ENOXAPARIN 40 MG/0.4 ML SYRINGE SQ SCH ×2 (03:35→08:38)
[2020-07-03] MEDS: oxyCODONE-APAP 10-325MG 1 EACH TAB PO PRN ×4 (05:27→22:39)
[2020-07-03] MEDS: THIAMINE 100 MG TAB PO SCH ×2 (07:29→17:08)
[2020-07-03] MEDS: BUDESONIDE 1 MG/2 ML NEBU INHALATION SCH ×2 (07:46→19:23)
[2020-07-03] MEDS: FORMOTEROL FUMARATE 20 MCG/2 ML NEBU INHALATION SCH ×2 (07:46→19:23)
[2020-07-03 08:00] LABS: HCT 39.4 % (39.0-53.0); HGB 13.3 gm/dL (13.0-17.5); MCH 32.2 pg (25.0-35.0); MCHC 33.7 g/dL (31.0-37.0); MCV 95.5 fL (80.0-100.0); Mean Platelet Volume 6.7; Platelet Count 189 k/uL (150-450); RBC 4.13 m/uL (4.30-5.90); RDW 13.4 % (11.5-15.5); WBC 9.3 k/uL (3.8-10.6)
[2020-07-03] MEDS: diazePAM 2 MG TAB PO SCH ×3 (08:38→22:39)
[2020-07-03] MEDS: amLODIPine 10 MG TAB PO SCH (08:38)
[2020-07-03] MEDS: GABAPENTIN 400 MG CAP PO SCH ×3 (08:38→22:39)
[2020-07-03] MEDS: SERTRALINE 50 MG TAB PO SCH (08:39)
[2020-07-03] MEDS: PANTOPRAZOLE 40 MG/10 ML VIAL IVP SCH ×2 (08:39→20:27)
[2020-07-03] MEDS: MONTELUKAST 10 MG TAB PO SCH (08:39)
[2020-07-03] MEDS: lisinopriL 20 MG TAB PO SCH (08:39)
[2020-07-03 10:38] LABS: INR 1.1 (<1.2); Prothrombin Time 10.8 sec (9.0-12.0)
[2020-07-03 11:07] LABS: African American GFR (CKD) 112.5 (60.0-200.0); Albumin 3.6 g/dL (3.80-4.90); Albumin/Globulin Ratio 1.71 (1.60-3.17); Anion Gap 5.3 mmol/L (4.00-12.00); BUN/Creat Ratio 16.25 Ratio (12.00-20.00); Calcium 8.2 mg/dL (8.7-10.3); Carbon Dioxide 23.7 mmol/L (21.6-31.8); Globulin 2.1 g/dL (1.6-3.3); Non-African American GFR(CKD) 97.1 (60.0-200.0); Potassium 4.5 mmol/L (3.5-5.5); Total Bilirubin 0.7 mg/dL (0.2-1.2); Total Protein 5.7 g/dL (6.2-8.2)
--- NOTE | 2020-07-03 11:45 | P.PN ---
Subjective Progress Note Date: 07/03/20 Principal diagnosis: Acute pancreatitis The patient is a 60-year-old white male with heavy alcohol abuse, chronic relapsing pancreatitis with multiple hospitalizations in the past. He came to the emergency room complaining of severe epigastric pain that started 2 days ago. He continues to drink alcohol heavily his last alcohol drink was approximately 3 days ago. Upon admission to the emergency room he was noted to have an elevated lipase of more than 20,000, today has improved to 225. He states his abdominal pain has improved, he has not had any further episodes of emesis. He is tolerating ice chips and popsicles otherwise is nothing by mouth. Objective - Vital Signs Vital signs: Vital Signs Temp 98.1 F 07/03/20 05:00 Pulse 92 07/03/20 08:10 Resp 20 07/03/20 05:00 BP 123/78 07/03/20 05:00 Pulse Ox 92 L 07/03/20 05:00 Intake & Output 07/02/20 07/03/20 07/03/20 18:59 06:59 18:59 Intake Total 1650 Output Total 700 1000 Balance 950 -1000 Weight 99.79 kg Intake: Intake, IV Titration 1650 Amount Sodium Chloride 0.9% 1, 1650 000 ml @ 150 mls/hr IV . Q6H40M [facility] Rx#:[id number] Output: Urine 700 1000 Other: Voiding Method Toilet Toilet Urinal Urinal # Voids 2 - Exam General appearance: The patient is alert, oriented, in no acute distress. HET: Head is normocephalic and atraumatic. Conjunctiva pink. Sclera anicteric. Neck: Supple without lymphadenopathy. Abdomen: Soft, epigastric tenderness, distended with bowel sounds. No guarding or rigidity. Extremities: Normal skin color and turgor. No pedal edema Neurological: No focal deficits. Alert and oriented 3. - Labs CBC & Chem 7: 07/03/20 07:18 07/03/20 07:18 Labs: Abnormal Lab Results - Last 24 Hours (Table) 07/03/20 07/03/20 Range/Units 07:18 07:18 RBC 4.13 L (4.30-5.90) m/uL Sodium 134 L (135-145) mmol/L Calcium 8.2 L (8.7-10.3) mg/dL Total Protein 5.7 L (6.2-8.2) g/dL Albumin 3.60 L (3.80-4.90) g/dL Amylase 306 H* (23-121) U/L Lipase 225 H (14-60) U/L Assessment and Plan Assessment: 1. Chronic relapsing pancreatitis with acute exacerbation that is alcohol related. Patient with multiple hospitalizations in the past with recurrent pancreatitis presents with abdominal pain for the last 3 days duration noted to have elevated lipase consistent with acute flareup. Serum transaminases are within normal limits which makes it unlikely we aren't dealing with any biliary pancreatitis. Ultrasound of the abdomen did show some sludge in the gallbladder, but no gallstones noted. 2. Heavy alcohol abuse 3. Prior history cirrhosis of the liver with esophageal variceal bleeding in the past 4. History of hypertension and hyperlipidemia 5. Chronic pain syndrome Plan: 1. May advance to low fat/low fiber diet in morning if patient tolerates liquid s and pain improved 2. Pain medication as needed 3. Aggressive IV hydration 4. Abstinence from alcohol 5. Repeat labs in the morning 6. We will follow with you closely Thank you for this consultation The impression and plan of care has been dictated as directed. Dr. Edel Avila I performed a history and examination of this patient, discussed the same with the dictator. I agree with the dictator's note ,documented as a scribe. Any additional findings or plans will be noted.
--- NOTE | 2020-07-03 12:57 | P.GSCN ---
History of Present Illness Consult date: 07/03/20 History of present illness: CHIEF COMPLAINT: Abdominal pain HISTORY OF PRESENT ILLNESS: This is a 60-year-old male with a known history of alcohol abuse, chronic relapsing alcohol pancreatitis, coronary disease, myocardial infarction, hypertension and esophageal varices. Patient is also had history of appendectomy. Patient presents to the emergency room with complaints of severe epigastric abdominal pain that started a couple days ago. Pain radiated to the his back. He did have nausea. Denies any vomiting, fevers or diarrhea. Patient reports that he drinks per year heavily on a daily basis. He reports that his last drink was about 2 days ago. Patient had abdominal ultrasound that did reveal a distended gallbladder with probable sludge and wall thickening. Correlate for cholecystitis. Questionable borderline biliary duct dilation. Patient did have a lipase of 20,000 on admission. And is currently nothing by mouth for his acute pancreatitis. PAST MEDICAL HISTORY: See list. PAST SURGICAL HISTORY: See list. MEDICATIONS: See list. ALLERGIES: See list. SOCIAL HISTORY: No illicit drug use. REVIEW OF SYSTEMS: CONSTITUTIONAL: Denies fever or chills. HEENT: Denies blurred vision, vision changes, or eye pain. Denies hemoptysis ENDOCRINE: Denies heat or cold intolerance. CARDIOVASCULAR: Denies chest pain or pressure. RESPIRATORY: No shortness of breath. GASTROINTESTINAL: Please for HPI NEURO: Denies history of seizures. PSYCH: No depression or suicidal ideation HEMATOLOGIC: Denies bleeding disorders. LYMPHATIC: The patient denies any lumps and bumps around the neck. GENITOURINARY: Denies any blood in urine or increased urinary frequency. MUSCULOSKELETAL: Denies myalgias. Denies joint swelling. Denies decreased range of motion beyond patients baseline. SKIN: Denies pruitis. Denies rash. PHYSICAL EXAM: VITAL SIGNS: Reviewed GENERAL: Well-developed in no acute distress. HEENT: No sclera icterus. Extraocular movements grossly intact. Moist buccal mucosa. Head is atraumatic, normocephalic. Hears conversational speech. No nasal drainage. NECK: Supple without lymphadenopathy. CHEST: Non-labored respirations and equal bilateral excursions. CARDIOVASCULAR: Palpable 2+ radial pulses. ABDOMEN: Soft. Nondistended. Epigastric and right upper quadrant tenderness with palpation MUSCULOSKELETAL: No clubbing or cyanosis. NEUROLOGIC: No focal or lateralizing signs. Cranial nerves II through XII grossly intact. PSYCH: Appropriate affect. Alert and oriented to person, place and time. SKIN: Well perfused. Good skin turgor. LABORATORY DATA: WBC 9.3 hemoglobin 13.3 creatinine 1.37 down to 0.8 lactic 1.7 AST 65 down to 34 ALT 41 alk phos 70 total bilirubin 0.7 Lipase 20,000 down to 225 amylase 2168 down to 306 Covid negative IMAGING: abdominal ultrasound that did reveal a distended gallbladder with probable sludge and wall thickening. Correlate for cholecystitis. Questionable borderline biliary duct dilation. Kelly sign positive ASSESSMENT: 1. Acute pancreatitis likely alcohol induced 2. Probable Cholecystitis. Abdominal ultrasound with distended gallbladder with probable sludge and gallbladder wall thickening 3. History of daily alcohol use 4. History of recurrent pancreatitis 5. History of liver cirrhosis with esophageal varices 7. History of coronary disease and myocardial infarction 8. Essential hypertension PLAN: -Continue supportive care -Okay to start clear liquid diet -Continue to monitor lipase -Continue IV fluids Thank you for this consultation Physician Paper Rewinder note has been reviewed by physician. Signing provider agrees with the documented findings, assessment, and plan of care. Past Medical History Past Medical History: Coronary Artery Disease (CAD), COPD, Eye Disorder, Fibromyalgia, Hypertension, Myocardial Infarction ([place]), Osteoarthritis (OA), Prostate Disorder, Vascular Disorder Additional Past Medical History / Comment(s): Chronic cough, chronic pancreatitis, past alcohol abuse-pt states occasionally now, bilateral eye glaucoma, neuropathy bilateral feet, poor circulation to legs, varicose veins, RLS, BPH with surgery, colitis, gastritis, Alvarenga's esophagus, shingles in 2013 and states joint pain since, chronic low back pain, DDD. Last Myocardial Infarction Date:: 09/02/16 History of Any Multi-Drug Resistant Organisms: None Reported Past Surgical History: Appendectomy, Heart Catheterization, Joint Replacement, Orthopedic Surgery, Prostate Surgery Additional Past Surgical History / Comment(s): R knee arthroscopy for torn meniscus, knee replacement; R total knee arthroplasty, EGD, colonoscopy, TURP Past Anesthesia/Blood Transfusion Reactions: No Reported Reaction Past Psychological History: Anxiety, Depression Smoking Status: Former smoker Past Alcohol Use History: Daily Past Drug Use History: None Reported - Past Family History Father Family Medical History: CVA/TIA, Hypertension Additional Family Medical History / Comment(s): Father at the age of 38yrs from HTN/CVA. He was an alcoholic. Mother Family Medical History: COPD, Diabetes Mellitus Additional Family Medical History / Comment(s): Mother of emphysema at the age of 74 yrs (2003), mom has hx of drinking and smoking Medications and Allergies Home Medications Medication Instructions Recorded Confirmed Type Cyclobenzaprine [Flexeril] 10 mg PO TID PRN 06/28/16 07/02/20 History lisinopriL [Zestril] 20 mg PO DAILY 06/28/16 07/02/20 History rOPINIRole HCL [Requip] 1 mg PO TID 06/28/16 07/02/20 History amLODIPine [Norvasc] 10 mg PO DAILY 09/26/16 07/02/20 History Gabapentin [Neurontin] 800 mg PO TID 09/18/17 07/02/20 History Nicotine 21Mg/24Hr Patch [Habitrol] 1 patch TRANSDERM DAILY PRN 09/18/17 07/02/20 History Montelukast [Singulair] 10 mg PO DAILY 01/12/18 07/02/20 History oxyCODONE-APAP 10-325MG [Percocet 1 tab PO TID 09/12/18 07/02/20 History 10-325 mg] Latanoprost/Pf [Latanoprost 0.005% 1 drop BOTH EYES HS 05/20/19 07/02/20 History Eye Drop] Loratadine [Claritin] 10 mg PO DAILY 05/20/19 07/02/20 History Albuterol Nebulized [Ventolin 2.5 mg INHALATION RT-QID PRN 11/12/19 07/02/20 History Nebulized] Albuterol Sulfate [Albuterol 2 puff INHALATION RT-QID PRN 02/08/20 07/02/20 History Sulfate Hfa] Fluticasone Propion/Salmeterol 1 puff INHALATION RT-BID 02/08/20 07/02/20 History [Wixela 500-50 Inhub] Furosemide [Lasix] 20 mg PO DAILY 02/08/20 07/02/20 History Omeprazole 20 mg PO DAILY 02/08/20 07/02/20 History Sertraline [Zoloft] 50 mg PO DAILY 02/08/20 07/02/20 History Tamsulosin [Flomax] 0.4 mg PO DAILY PRN 02/08/20 07/02/20 History Warfarin [Coumadin] 2.5 mg PO DAILY 02/08/20 07/02/20 History Fluticasone Nasal [place] [Flonase 2 spr EA NOSTRIL DAILY PRN 07/02/20 07/02/20 History Nasal [place]] Naproxen [Naprosyn] 500 mg PO BID 07/02/20 07/02/20 History Allergies Allergy/AdvReac Type Severity Reaction Status Date / Time pregabalin [From Lyrica] Allergy Swelling Verified 07/02/20 08:36 amoxicillin trihydrate AdvReac Rapid Verified 07/02/20 08:36 [From Augmentin] Heart Rate potassium clavulanate AdvReac FELT LIKE Verified 07/02/20 08:36 [From Augmentin] HE WAS GOING TO PASS OUT FAST HEARTBEAT" Surgical - Exam Vital Signs Temp Pulse Resp BP Pulse Ox 97.7 F 72 20 111/66 98 07/02/20 06:21 07/02/20 06:21 07/02/20 06:21 07/02/20 06:21 07/02/20 06:21 Results - Labs 07/03/20 07:18 07/03/20 07:18 Abnormal Lab Results - Last 24 Hours (Table) 07/03/20 07/03/20 Range/Units 07:18 07:18 RBC 4.13 L (4.30-5.90) m/uL Sodium 134 L (135-145) mmol/L Calcium 8.2 L (8.7-10.3) mg/dL Total Protein 5.7 L (6.2-8.2) g/dL Albumin 3.60 L (3.80-4.90) g/dL Amylase 306 H* (23-121) U/L Lipase 225 H (14-60) U/L Diabetes panel 07/03/20 Range/Units 07:18 Sodium 134 L (135-145) mmol/L Potassium 4.5 (3.5-5.5) mmol/L Chloride 105 (96-109) mmol/L Carbon Dioxide 23.7 (21.6-31.8) mmol/L BUN 13.0 (9.0-27.0) mg/dL Creatinine 0.8 (0.6-1.5) mg/dL Glucose 88 (70-110) mg/dL Calcium 8.2 L (8.7-10.3) mg/dL AST 34 (14-35) U/L ALT 34 (10-49) U/L Alkaline Phosphatase 69 (41-126) U/L Total Protein 5.7 L (6.2-8.2) g/dL Albumin 3.60 L (3.80-4.90) g/dL Calcium panel 07/03/20 Range/Units 07:18 Calcium 8.2 L (8.7-10.3) mg/dL Albumin 3.60 L (3.80-4.90) g/dL Pituitary panel 07/03/20 Range/Units 07:18 Sodium 134 L (135-145) mmol/L Potassium 4.5 (3.5-5.5) mmol/L Chloride 105 (96-109) mmol/L Carbon Dioxide 23.7 (21.6-31.8) mmol/L BUN 13.0 (9.0-27.0) mg/dL Creatinine 0.8 (0.6-1.5) mg/dL Glucose 88 (70-110) mg/dL Calcium 8.2 L (8.7-10.3) mg/dL Adrenal panel 07/03/20 Range/Units 07:18 Sodium 134 L (135-145) mmol/L Potassium 4.5 (3.5-5.5) mmol/L Chloride 105 (96-109) mmol/L Carbon Dioxide 23.7 (21.6-31.8) mmol/L BUN 13.0 (9.0-27.0) mg/dL Creatinine 0.8 (0.6-1.5) mg/dL Glucose 88 (70-110) mg/dL Calcium 8.2 L (8.7-10.3) mg/dL Total Bilirubin 0.7 (0.2-1.2) mg/dL AST 34 (14-35) U/L ALT 34 (10-49) U/L Alkaline Phosphatase 69 (41-126) U/L Total Protein 5.7 L (6.2-8.2) g/dL Albumin 3.60 L (3.80-4.90) g/dL
--- NOTE | 2020-07-03 23:26 | P.PN ---
Progress Note - Text Progress Note Date: 07/03/20 Chief Complaint: Abdominal pain History of presenting complaint: This is a [address] Chavez. Chronic stable medical conditions include COPD, fibromyalgia, hypertension, osteoarthritis, chronic pancreatitis from alcoholism, peripheral neuropathy varicose veins, restless leg syndrome, BPH surgery, Alvarenga's esophagus and chronic low back pain from osteoarthritis. Patient has continued to drink about 4-5 beers a day. Conditions to smoke cigarettes. Patient presents with increasing abdominal pain from yesterday up her abdomen. Along with nausea vomiting. Normally has one bowel movement a day. Has a congestive cough and some wheezing. Denies any fever and chills. Admitted with acute severe pancreatitis. Admitted with acute severe pancreatitis, COPD exacerbation, acute kidney injury with ATN. Patient nothing by mouth. Bronchodilators steroids. Today-on ice chips. Abdominal pain better. No nausea vomiting. Breathing is better. Review of systems: Was done for constitutional, cardiovascular, GI, pulmonary. relevant finding as above Active Medications Albuterol Sulfate (Albuterol Nebulized 2.5 Mg/3 Ml) 2.5 mg INHALATION RT-QID PRN PRN Reason: Shortness Of Breath Albuterol/Ipratropium (Ipratropium-Albuterol 3 Ml Neb) 3 ml INHALATION RT-Q4H [facility] Last Admin: 07/03/20 19:23 Dose: 3 ml Documented by: Amlodipine Besylate (Amlodipine 10 Mg Tab) 10 mg PO DAILY [facility] Last Admin: 07/03/20 08:38 Dose: 10 mg Documented by: Budesonide (Budesonide 1 Mg/2 Ml Nebu) 1 mg INHALATION RT-BID [facility] Last Admin: 07/03/20 19:23 Dose: 1 mg Documented by: Cyclobenzaprine HCl (Cyclobenzaprine 10 Mg Tab) 10 mg PO TID PRN PRN Reason: Muscle Spasm Diazepam (Diazepam 2 Mg Tab) 2 mg PO TID [facility] Last Admin: 07/03/20 22:39 Dose: 2 mg Documented by: Enoxaparin Sodium (Enoxaparin 40 Mg/0.4 Ml Syringe) 40 mg SQ DAILY [facility] Last Admin: 07/03/20 08:38 Dose: 40 mg Documented by: Formoterol Fumarate (Formoterol Fumarate 20 Mcg/2 Ml Nebu) 20 mcg INHALATION RT-BID [facility] Last Admin: 07/03/20 19:23 Dose: 20 mcg Documented by: Gabapentin (Gabapentin 400 Mg Cap) 800 mg PO TID [facility] Last Admin: 07/03/20 22:39 Dose: 800 mg Documented by: Hydromorphone HCl (Hydromorphone 1 Mg/Ml 1 Ml Syringe) 1 mg IVP Q3HR PRN PRN Reason: Pain Last Admin: 07/03/20 20:27 Dose: 1 mg Documented by: Sodium Chloride (Saline 0.9%) 1,000 mls @ 150 mls/hr IV .Q6H40M [facility] Last Admin: 07/03/20 17:07 Dose: 150 mls/hr Documented by: Lisinopril (Lisinopril 20 Mg Tab) 20 mg PO DAILY [facility] Last Admin: 07/03/20 08:39 Dose: 20 mg Documented by: Lorazepam (Lorazepam 2 Mg/Ml Inj) 1 mg IV Q2HR PRN PRN Reason: CIWA 8 or 9 Lorazepam (Lorazepam 2 Mg/Ml Inj) 1 mg IV Q1HR PRN PRN Reason: CIWA 10 to 15 Lorazepam (Lorazepam 2 Mg/Ml Inj) 2 mg IV Q10M PRN PRN Reason: CIWA 16 or higher Stop: 07/04/20 07:44 Montelukast Sodium (Montelukast 10 Mg Tab) 10 mg PO DAILY [facility] Last Admin: 07/03/20 08:39 Dose: 10 mg Documented by: Naloxone HCl (Naloxone 0.4 Mg/Ml 1 Ml Vial) 0.2 mg IV Q2M PRN PRN Reason: Opioid Reversal Nicotine (Nicotine 21mg/24hr Patch) 1 patch TRANSDERM DAILY PRN PRN Reason: SMOKING CESSATION Ondansetron HCl (Ondansetron 4 Mg/2 Ml Vial) 4 mg IVP Q6HR PRN PRN Reason: Nausea And Vomiting Last Admin: 07/02/20 13:11 Dose: 4 mg Documented by: Oxycodone/Acetaminophen (Oxycodone-Apap 10-325mg 1 Each Tab) 1 each PO Q4H PRN PRN Reason: Pain Last Admin: 07/03/20 22:39 Dose: 1 each Documented by: Pantoprazole Sodium (Pantoprazole 40 Mg/10 Ml Vial) 40 mg IVP BID [facility] Last Admin: 07/03/20 20:27 Dose: 40 mg Documented by: Ropinirole HCl (Ropinirole Hcl 1 Mg Tab) 1 mg PO TID [facility] Last Admin: 07/03/20 22:44 Dose: 1 mg Documented by: Sertraline HCl (Sertraline 50 Mg Tab) 50 mg PO DAILY [facility] Last Admin: 07/03/20 08:39 Dose: 50 mg Documented by: Tamsulosin HCl (Tamsulosin 0.4 Mg Cap.Er.24h) 0.4 mg PO DAILY PRN PRN Reason: PROSTATE PAIN Thiamine HCl (Thiamine 100 Mg Tab) 100 mg PO BID-W/MEALS [facility] Last Admin: 07/03/20 17:08 Dose: 100 mg Documented by: Physical examination: VITAL SIGNS: 98, 100, 16, 126 with 71, 94% room air GENERAL: BMI 29.8, laying in bed, appears better EYES: Pupils equal. Conjunctiva normal. HEENT: External appearance of nose and ears normal, oral cavity grossly normal. NECK: JVD not raised; masses not palpable. HEART: First and second heart sounds are normal; minimal edema. LUNGS: Respiratory rate increased, diminished breath sounds. Prolonged expiration, some extremity crackles Some wheezing ABDOMEN: Soft, decreased epigastric tenderness, no guarding or rigidity, liver spleen not palpable, no masses palpable. PSYCH: Alert and oriented x3; mood and affect slightly anxious INVESTIGATIONS, reviewed in the clinical context: White count 9.3 hemoglobin 13.3 potassium 4.5 creatinine 0.8, amylase 306 lipase to 25 Previous testing White count and hemoglobin 15 platelets 245 potassium 4.3 creatinine 1.37 Amylase 2168, lipase greater than 20,000 COVID 19 P/Cr-not detected EKG tracing personally reviewed by me-normal sinus rhythm Abdominal ultrasound-hepatomegaly, tumefactive sludge in the gallbladder and abdominal gallbladder distention and wall thickening Assessment: -Acute severe pancreatitis in a patient with known chronic pancreatitis from alcoholism-clinically and biochemically improvement, POA -Acute COPD exacerbation in a cigarette smoker, POA -Chronic nicotine dependence, patient cigarette smoker -Gallbladder sludge with gallbladder wall thickening some dilatation-cannot rule out acute/chronic cholecystitis, POA-being followed by Dr. Mena -Acute kidney injury likely ATN, improving, POA -Chronic fibromyalgia -Essential hypertension -Primary osteoarthritis -Alcoholic peripheral neuropathy -restless leg syndrome -Alvaregna's esophagus -Alcohol use disorder Plan: Patient advanced to clear liquids and diet to advance as tolerated. Discussed with the patient. Continue bronchodilators. Cutback on IV fluids. Patient encouraged to be out of bed. Smoke cessation counseling: This was done with the patient. Nicotine patch is being given. More than 3 minutes was spent for this
[2020-07-04] MEDS: IPRATROPIUM-ALBUTEROL 3 ML NEB INHALATION SCH ×6 (01:13→19:34)
[2020-07-04] MEDS: HYDROmorphone 1 MG/ML 1 ML SYRINGE IVP PRN ×4 (02:22→19:09)
[2020-07-04] MEDS: SODIUM CHLORIDE 0.9% 1,000 ML IV SCH ×2 (02:23→20:33)
[2020-07-04] MEDS: oxyCODONE-APAP 10-325MG 1 EACH TAB PO PRN ×4 (03:24→20:32)
[2020-07-04] MEDS: BUDESONIDE 1 MG/2 ML NEBU INHALATION SCH ×2 (08:07→19:34)
[2020-07-04] MEDS: FORMOTEROL FUMARATE 20 MCG/2 ML NEBU INHALATION SCH ×2 (08:07→19:34)
[2020-07-04] MEDS: PANTOPRAZOLE 40 MG/10 ML VIAL IVP SCH ×2 (08:54→20:32)
[2020-07-04] MEDS: amLODIPine 10 MG TAB PO SCH (08:55)
[2020-07-04] MEDS: THIAMINE 100 MG TAB PO SCH ×2 (08:55→19:13)
[2020-07-04] MEDS: diazePAM 2 MG TAB PO SCH ×3 (08:55→22:36)
[2020-07-04] MEDS: MONTELUKAST 10 MG TAB PO SCH (08:55)
[2020-07-04] MEDS: lisinopriL 20 MG TAB PO SCH (08:55)
[2020-07-04] MEDS: SERTRALINE 50 MG TAB PO SCH (08:55)
[2020-07-04] MEDS: GABAPENTIN 400 MG CAP PO SCH ×3 (08:56→23:46)
[2020-07-04] MEDS: ENOXAPARIN 40 MG/0.4 ML SYRINGE SQ SCH (09:20)
[2020-07-04 09:30] LABS: African American GFR (CKD) 107.2 (60.0-200.0); Albumin 3.8 g/dL (3.80-4.90); Albumin/Globulin Ratio 1.73 (1.60-3.17); BUN/Creat Ratio 12.22 Ratio (12.00-20.00); Calcium 8.6 mg/dL (8.7-10.3); Globulin 2.2 g/dL (1.6-3.3); Non-African American GFR(CKD) 92.5 (60.0-200.0); Potassium 4.3 mmol/L (3.5-5.5); Total Bilirubin 0.7 mg/dL (0.2-1.2)
--- NOTE | 2020-07-04 11:49 | PN ---
PROGRESS NOTE DATE OF SERVICE: July 04, 2020 Patient is a 60-year-old pleasant white white male admitted to hospital with acute alcoholic chronic relapsing pancreatitis. He is doing better today. Abdominal pain has improved. No nausea, no vomiting. Tolerating liquids. Lab from today: Lipase is down to 63. PHYSICAL EXAMINATION: He is a comfortable in no apparent distress. VITAL SIGNS: Stable. Pulse rate 84, blood pressure 135/73, temperature 98. HEENT examination unremarkable. Conjunctivae pink. Sclerae anicteric. Oral cavity no lesions. Neck no JVD or lymph node enlargement. Chest was clear to auscultation. HEART: Regular rate and rhythm. ABDOMEN: Soft. Bowel sounds are positive. No organomegaly, abdomen is slightly distended but it was nontender. Extremities: No pedal edema. Skin no rashes. NEUROLOGIC: Alert and oriented x3. No focal deficits. LABS: From today: CBC is not done. Basic metabolic panel is within normal limits. Lipase is down to 63. AST, ALT, T-bilirubin and alkaline phosphatase are all within normal limits. IMPRESSION: 1. Chronic relapsing pancreatitis with flare up. Lipase has significantly improved to 63 today. Patient on a clear liquid diet, tolerating well. 2. Heavy alcohol abuse. 3. History of liver cirrhosis. RECOMMENDATION: 1. Advance diet to low-fat diet. 2. Continue Protonix 40 mg twice daily. 3. Increase ambulation. 4. If he is doing well, he can be discharged home today or tomorrow with outpatient followup in 2 weeks. Thank you for this consultation. MMJONL / IJN: [id number] /
--- NOTE | 2020-07-04 15:32 | P.PN ---
Subjective Progress Note Date: 07/04/20 CHIEF COMPLAINT: Pancreatitis HISTORY OF PRESENT ILLNESS: The patient is a 60-year-old male admitted for pancreatitis. He reports drinking beer at least 2 days prior to admission. He reports eating moderate greasy foods. "My pancreatitis feels the same everytime!" He had beef stroganoff for lunch and completed his tray. No he reports abdominal cramping and distention. He is more uncomfortable following his meal. ROS: No reports of nausea and vomiting. No fevers or chills. No new chest pain. PHYSICAL EXAM: VITAL SIGNS: Reviewed CONSTITUTIONAL: Well developed and in no acute distress. EYES: Conjuctivae without sclera icterus. Extraocular movements grossly intact. HEAD, EARS, NOSE, THROAT: Moist buccal mucosa. Head is atraumatic, normocephalic. Hears conversational speech. No nasal drainage. NECK: Supple. RESPIRATORY: Non-labored respirations and equal bilateral excursions. CARDIOVASCULAR: Palpable 2+ radial pulses. ABDOMEN: Distended. No perionitis. Mild epigastric tenderness. MUSCULOSKELETAL: No gross deformity of the lower extremities noted. No clubbing. No cyanosis. SKIN: Good skin turgor. Well perfused. NEUROLOGIC: Cranial nerves II through XII grossly intact. No focal or lateralizing signs. PSYCH: Appropriate affect. Alert and oriented to person, place and time. CLINICAL LABS: WBC and Hgb normal. Lipase moderately improved. STUDIES: Ultrasound of the gallbladder independently reviewed with gallbladder sludge. No pericholecystic fluid. This is my independent interpretation. ASSESSMENT: 1. Pancreatitis 2. History of alcohol abuse 3. Gallbladder sludge PLAN: 1. His diet was advanced per GI to more regular diet, and now he has rebound abdominal pain. Recommend dietary modification. 2. Hold discharge due to rebound abdominal pain following pancreatitis. 3. Repeat labs for assessment of rebound pancreatitis. 4. No surgical intervention at this time due to recent ETOH and pancreatitis. 5. Alcohol abstinence described with patient. Objective - Vital Signs Vital signs: Vital Signs Temp 98 F 07/04/20 11:59 Pulse 90 07/04/20 12:21 Resp 20 07/04/20 11:59 BP 134/75 07/04/20 11:59 Pulse Ox 95 07/04/20 11:59 Intake & Output 07/03/20 07/04/20 07/04/20 18:59 06:59 18:59 Intake Total 1200 250 Output Total 1000 700 300 Balance 200 -450 -300 Intake: Intake, IV Titration 1200 Amount Sodium Chloride 0.9% 1, 1200 000 ml @ 150 mls/hr IV . Q6H40M [facility] Rx#:[id number] Oral 250 Output: Urine 1000 700 300 Other: Voiding Method Toilet Toilet Toilet Urinal Urinal Urinal # Voids 2 1 - Labs CBC & Chem 7: 07/03/20 07:18 07/04/20 05:22 Labs: Abnormal Lab Results - Last 24 Hours (Table) 07/04/20 Range/Units 05:22 Calcium 8.6 L (8.7-10.3) mg/dL Total Protein 6.0 L (6.2-8.2) g/dL Lipase 63 H (14-60) U/L Microbiology - Last 24 Hours (Table) 07/02/20 10:56 Blood Culture - Preliminary Blood No Growth after 48 hours Assessment and Plan (1) Gallbladder sludge Current Visit: Yes Status: Acute Code(s): K82.8 - OTHER SPECIFIED DISEASES OF GALLBLADDER SNOMED Code(s): 83030173 (2) Pancreatitis Current Visit: Yes Status: Acute Code(s): K85.9 - ACUTE PANCREATITIS, UNSPECIFIED * DO NOT USE * SNOMED Code(s): 93702084 (3) Acute pancreatitis Current Visit: No Status: Acute Code(s): K85.9 - ACUTE PANCREATITIS, UNSPECIFIED * DO NOT USE * SNOMED Code(s): 250772622 (4) Alcohol abuse Current Visit: No Status: Acute Code(s): F10.10 - ALCOHOL ABUSE, UNCOMPLICATED SNOMED Code(s): 45741302
--- NOTE | 2020-07-04 22:06 | P.PN ---
Progress Note - Text Progress Note Date: 07/04/20 Chief Complaint: Abdominal pain History of presenting complaint: This is a [address] Chavez. Chronic stable medical conditions include COPD, fibromyalgia, hypertension, osteoarthritis, chronic pancreatitis from alcoholism, peripheral neuropathy varicose veins, restless leg syndrome, BPH surgery, Alvarenga's esophagus and chronic low back pain from osteoarthritis. Patient has continued to drink about 4-5 beers a day. Conditions to smoke cigarettes. Patient presents with increasing abdominal pain from yesterday up her abdomen. Along with nausea vomiting. Normally has one bowel movement a day. Has a congestive cough and some wheezing. Denies any fever and chills. Admitted with acute severe pancreatitis. Admitted with acute severe pancreatitis, COPD exacerbation, acute kidney injury with ATN. Possible acute on chronic cholecystitis. Patient nothing by mouth. Bronchodilators steroids. Today-patient diet was advanced. This morning abdominal pain improved. Patient had some flareup. Abdominal pain this afternoon.. Otherwise feeling well. Review of systems: Was done for constitutional, cardiovascular, GI, pulmonary. relevant finding as above Active Medications Albuterol Sulfate (Albuterol Nebulized 2.5 Mg/3 Ml) 2.5 mg INHALATION RT-QID PRN PRN Reason: Shortness Of Breath Albuterol/Ipratropium (Ipratropium-Albuterol 3 Ml Neb) 3 ml INHALATION RT-Q4H [facility] Last Admin: 07/04/20 19:34 Dose: 3 ml Documented by: Amlodipine Besylate (Amlodipine 10 Mg Tab) 10 mg PO DAILY [facility] Last Admin: 07/04/20 08:55 Dose: 10 mg Documented by: Budesonide (Budesonide 1 Mg/2 Ml Nebu) 1 mg INHALATION RT-BID [facility] Last Admin: 07/04/20 19:34 Dose: 1 mg Documented by: Cyclobenzaprine HCl (Cyclobenzaprine 10 Mg Tab) 10 mg PO TID PRN PRN Reason: Muscle Spasm Diazepam (Diazepam 2 Mg Tab) 2 mg PO TID [facility] Last Admin: 07/04/20 16:33 Dose: 2 mg Documented by: Enoxaparin Sodium (Enoxaparin 40 Mg/0.4 Ml Syringe) 40 mg SQ DAILY [facility] Last Admin: 07/04/20 09:20 Dose: 40 mg Documented by: Formoterol Fumarate (Formoterol Fumarate 20 Mcg/2 Ml Nebu) 20 mcg INHALATION RT-BID [facility] Last Admin: 07/04/20 19:34 Dose: 20 mcg Documented by: Gabapentin (Gabapentin 400 Mg Cap) 800 mg PO TID [facility] Last Admin: 07/04/20 16:36 Dose: Not Given Documented by: Hydromorphone HCl (Hydromorphone 1 Mg/Ml 1 Ml Syringe) 1 mg IVP Q3HR PRN PRN Reason: Pain Last Admin: 07/04/20 19:09 Dose: 1 mg Documented by: Sodium Chloride (Saline 0.9%) 1,000 mls @ 50 mls/hr IV .Q20H [facility] Last Admin: 07/04/20 20:33 Dose: 50 mls/hr Documented by: Lisinopril (Lisinopril 20 Mg Tab) 20 mg PO DAILY [facility] Last Admin: 07/04/20 08:55 Dose: 20 mg Documented by: Lorazepam (Lorazepam 2 Mg/Ml Inj) 1 mg IV Q2HR PRN PRN Reason: CIWA 8 or 9 Lorazepam (Lorazepam 2 Mg/Ml Inj) 1 mg IV Q1HR PRN PRN Reason: CIWA 10 to 15 Montelukast Sodium (Montelukast 10 Mg Tab) 10 mg PO DAILY [facility] Last Admin: 07/04/20 08:55 Dose: 10 mg Documented by: Naloxone HCl (Naloxone 0.4 Mg/Ml 1 Ml Vial) 0.2 mg IV Q2M PRN PRN Reason: Opioid Reversal Nicotine (Nicotine 21mg/24hr Patch) 1 patch TRANSDERM DAILY PRN PRN Reason: SMOKING CESSATION Ondansetron HCl (Ondansetron 4 Mg/2 Ml Vial) 4 mg IVP Q6HR PRN PRN Reason: Nausea And Vomiting Last Admin: 07/02/20 13:11 Dose: 4 mg Documented by: Oxycodone/Acetaminophen (Oxycodone-Apap 10-325mg 1 Each Tab) 1 each PO Q4H PRN PRN Reason: Pain Last Admin: 07/04/20 20:32 Dose: 1 each Documented by: Pantoprazole Sodium (Pantoprazole 40 Mg/10 Ml Vial) 40 mg IVP BID [facility] Last Admin: 07/04/20 20:32 Dose: 40 mg Documented by: Ropinirole HCl (Ropinirole Hcl 1 Mg Tab) 1 mg PO TID [facility] Last Admin: 07/04/20 16:43 Dose: 1 mg Documented by: Sertraline HCl (Sertraline 50 Mg Tab) 50 mg PO DAILY [facility] Last Admin: 07/04/20 08:55 Dose: 50 mg Documented by: Tamsulosin HCl (Tamsulosin 0.4 Mg Cap.Er.24h) 0.4 mg PO DAILY PRN PRN Reason: PROSTATE PAIN Thiamine HCl (Thiamine 100 Mg Tab) 100 mg PO BID-W/MEALS [facility] Last Admin: 07/04/20 19:13 Dose: 100 mg Documented by: Physical examination: VITAL SIGNS: 98, 80, 20, 134.75, 95% room air GENERAL: BMI 29.8, laying in bed, appears better EYES: Pupils equal. Conjunctiva normal. HEENT: External appearance of nose and ears normal, oral cavity grossly normal. NECK: JVD not raised; masses not palpable. HEART: First and second heart sounds are normal; minimal edema. LUNGS: Respiratory rate increased, diminished breath sounds. Prolonged expiration, some extremity crackles Some wheezing ABDOMEN: Soft, some right upper quadrant tenderness, no guarding or rigidity, liver spleen not palpable, no masses palpable. PSYCH: Alert and oriented x3; mood and affect slightly anxious INVESTIGATIONS, reviewed in the clinical context: Lipase 63 Previous testing White count and hemoglobin 15 platelets 245 potassium 4.3 creatinine 1.37 Amylase 2168, lipase greater than 20,000 COVID 19 P/Cr-not detected EKG tracing personally reviewed by me-normal sinus rhythm Abdominal ultrasound-hepatomegaly, tumefactive sludge in the gallbladder and abdominal gallbladder distention and wall thickening Assessment: -Acute severe pancreatitis in a patient with known chronic pancreatitis from alcoholism-clinically and biochemically , POA-improved -Acute COPD exacerbation in a cigarette smoker, POA-improving -Chronic nicotine dependence, patient cigarette smoker -Gallbladder sludge with gallbladder wall thickening some dilatation-cannot rule out acute/chronic cholecystitis, POA- -Acute kidney injury likely ATN, -improved POA -Chronic fibromyalgia -Essential hypertension -Primary osteoarthritis -Alcoholic peripheral neuropathy -restless leg syndrome -Alvarenga's esophagus -Alcohol use disorder Plan: Diet to be advanced as per surgery and GI. Given possibility of acute cholecystitis right upper quadrant tenderness with and IV Zosyn. Patient lipase is otherwise nearly normalized
[2020-07-04] MEDS: PIPERACILLIN-TAZOBACTAM 3.375 GM in SODIUM CHLORIDE 0.9% 100 ML IVPB SCH (22:37)
[2020-07-05] MEDS: IPRATROPIUM-ALBUTEROL 3 ML NEB INHALATION SCH ×6 (00:37→19:05)
[2020-07-05] MEDS: oxyCODONE-APAP 10-325MG 1 EACH TAB PO PRN ×6 (00:37→21:46)
[2020-07-05] MEDS: PIPERACILLIN-TAZOBACTAM 3.375 GM in SODIUM CHLORIDE 0.9% 100 ML IVPB SCH ×3 (05:59→22:30)
[2020-07-05 07:29] LABS: Basophils % (A) 0 %; Eosinophils # (A) 0.3 k/uL (0-0.7); Eosinophils % (A) 2 %; HCT 39.6 % (39.0-53.0); Lymphocytes # (A) 0.9 k/uL (1.0-4.8); Lymphocytes % (A) 9 %; MCH 31.8 pg (25.0-35.0); MCHC 32.9 g/dL (31.0-37.0); MCV 96.7 fL (80.0-100.0); Monocytes # (A) 0.6 k/uL (0-1.0); Monocytes % (A) 6 %; Neutrophils # (A) 8.2 k/uL (1.3-7.7); Neutrophils % (A) 82 %; Platelet Count 210 k/uL (150-450); RBC 4.09 m/uL (4.30-5.90); RDW 13.3 % (11.5-15.5)
[2020-07-05] MEDS: BUDESONIDE 1 MG/2 ML NEBU INHALATION SCH ×2 (08:11→19:05)
[2020-07-05] MEDS: FORMOTEROL FUMARATE 20 MCG/2 ML NEBU INHALATION SCH ×2 (08:12→19:05)
[2020-07-05] MEDS: amLODIPine 10 MG TAB PO SCH (08:17)
[2020-07-05] MEDS: THIAMINE 100 MG TAB PO SCH ×2 (08:17→17:01)
[2020-07-05] MEDS: MONTELUKAST 10 MG TAB PO SCH (08:17)
[2020-07-05] MEDS: lisinopriL 20 MG TAB PO SCH (08:17)
[2020-07-05] MEDS: SERTRALINE 50 MG TAB PO SCH (08:17)
[2020-07-05] MEDS: diazePAM 2 MG TAB PO SCH ×2 (08:17→20:30)
[2020-07-05] MEDS: PANTOPRAZOLE 40 MG/10 ML VIAL IVP SCH ×2 (08:17→20:31)
[2020-07-05] MEDS: GABAPENTIN 400 MG CAP PO SCH ×4 (08:17→20:37)
[2020-07-05] MEDS: ENOXAPARIN 40 MG/0.4 ML SYRINGE SQ SCH (08:18)
[2020-07-05] MEDS ORDERED: MAGNESIUM CITRATE 296 ML BOTTLE PO ONE (08:31)
[2020-07-05] MEDS ORDERED: diazePAM 2 MG TAB PO SCH (09:00)
[2020-07-05] MEDS ORDERED: IOPAMIDOL CONTRAST (ORAL USE) VIAL PO PRN (09:39)
--- NOTE | 2020-07-05 10:57 | PN ---
PROGRESS NOTE DATE OF SERVICE: 07/05/2020 Patient is a 60-year-old white male with history of heavy alcoholism, admitted to hospital with chronic relapsing pancreatitis with severe abdominal pain, elevated lipase. His lipase has normalized. However, today he is complaining of severe abdominal distention, abdominal pain and constipation. He had no bowel movements since he has been in the hospital. He reports no nausea or vomiting. He is tolerating regular diet, but this morning after breakfast developed severe abdominal pain. PHYSICAL EXAMINATION: VITAL SIGNS: Blood pressure 162/69, pulse rate 89, temperature 97.9. HEENT: Examination unremarkable. Conjunctivae are pink. Sclerae anicteric. Oral cavity no lesions. NECK: No JVD or lymph node enlargement. CHEST: Clear to auscultation. HEART: Regular rate and rhythm. ABDOMEN: Distended. There was tenderness in the left upper quadrant area and diffusely all over the abdomen. EXTREMITIES: No pedal edema. NEUROLOGIC: Alert and oriented x3. No focal deficits. LABS: From today WBC 10, hemoglobin 13, platelets normal. Rest of the labs are pending. IMPRESSION: 1. Abdominal pain, abdominal distention, probably related to severe constipation. 2. Acute chronic relapsing pancreatitis. Lipase normalized. Pancreatitis resolved. 3. History of heavy alcohol abuse. 4. History of cirrhosis of the liver. RECOMMENDATIONS: 1. Will give him laxatives today with a bottle of magnesium citrate and possible Fleet enema for the constipation. 2. Symptomatic and supportive care. 3. Await rest of the labs. 4. Increase ambulation. 5. Advance to low-fat diet. 6. We will follow with you closely. Thank you for this consultation. MMODL / IJN: [id number] /
--- NOTE | 2020-07-05 12:47 | CT ---
EXAMINATION TYPE: CT abdomen pelvis w con DATE OF EXAM: 07/05/2020 COMPARISON: 06/20/2019. HISTORY: Abdominal pain pancreatitis CT DLP: 1658.5 mGycm Automated exposure control for dose reduction was used. TECHNIQUE: Helical acquisition of images was performed from the lung bases through the pelvis. CONTRAST: Performed with Oral Contrast and with IV Contrast, patient injected with 100 mL of Isovue 300. FINDINGS: LUNG BASES: Mild bibasilar atelectasis. LIVER/GB: No significant abnormality is appreciated. PANCREAS: Mild to moderate peripancreatic fat stranding. No evidence of necrosis or significant fluid collection. SPLEEN: No significant abnormality is seen. ADRENALS: No significant abnormality is seen. KIDNEYS: No significant abnormality is seen. FREE AIR: No free air is visualized. RETROPERITONEAL ADENOPATHY: None visualized REPRODUCTIVE ORGANS: No significant abnormality is seen URINARY BLADDER: No significant abnormality is seen. PELVIC ADENOPATHY: None visualized. OSSEOUS STRUCTURES: No acute abnormality is seen. Moderate lumbar spondylosis with partial ankylosis at L2-L3. BOWEL: No significant abnormality is seen. OTHER: Moderate to advanced atherosclerotic disease. IMPRESSION: FINDINGS CONSISTENT WITH ACUTE PANCREATITIS. NO EVIDENCE OF NECROSIS OR SIGNIFICANT FLUID COLLECTION.
[2020-07-05 13:23] LABS: African American GFR (CKD) 118.9 (60.0-200.0); Albumin 3.9 g/dL (3.80-4.90); Albumin/Globulin Ratio 1.77 (1.60-3.17); Anion Gap 7.5 mmol/L (4.00-12.00); BUN/Creat Ratio 14.29 Ratio (12.00-20.00); Calcium 8.8 mg/dL (8.7-10.3); Carbon Dioxide 25.5 mmol/L (21.6-31.8); Globulin 2.2 g/dL (1.6-3.3); Non-African American GFR(CKD) 102.6 (60.0-200.0); Potassium 4.1 mmol/L (3.5-5.5); Total Bilirubin 0.6 mg/dL (0.3-1.2); Total Protein 6.1 g/dL (6.2-8.2)
[2020-07-05] MEDS ORDERED: MAGNESIUM HYDROXIDE 2,400 MG/10 ML CUP PO STA (16:27)
[2020-07-05] MEDS ORDERED: LACTULOSE 20 GM/30 ML CUP PO STA (16:27)
--- NOTE | 2020-07-05 16:27 | P.PN ---
Subjective Progress Note Date: 07/05/20 CHIEF COMPLAINT: Pancreatitis HISTORY OF PRESENT ILLNESS: The patient is a 60-year-old male admitted for pancreatitis. He was being treated conservatively and had been advanced to low- fat diet yesterday. Yesterday afternoon, he reported increased abdominal distention and pain along the epigastrium following low-fat diet. This morning, he does report his pain is improved compared to yesterday. Secondary to his change in clinical status additional studies: CT of the abdomen and pelvis obtained. Patient is seeking Percocet for pain. He is yet to have a bowel movement. ROS: No reports of nausea and vomiting. No fevers or chills. No new chest pain. PHYSICAL EXAM: VITAL SIGNS: Reviewed CONSTITUTIONAL: Well developed and in no acute distress. EYES: Conjuctivae without sclera icterus. Extraocular movements grossly intact. HEAD, EARS, NOSE, THROAT: Moist buccal mucosa. Head is atraumatic, normocephalic. Hears conversational speech. No nasal drainage. NECK: Supple. RESPIRATORY: Non-labored respirations and equal bilateral excursions. CARDIOVASCULAR: Palpable 2+ radial pulses. ABDOMEN: Decreased distention. No perionitis. Mild epigastric tenderness. MUSCULOSKELETAL: No gross deformity of the lower extremities noted. No clubbing. No cyanosis. SKIN: Good skin turgor. Well perfused. NEUROLOGIC: Cranial nerves II through XII grossly intact. No focal or lateralizing signs. PSYCH: Appropriate affect. Alert and oriented to person, place and time. CLINICAL LABS: WBC and Hgb normal. Lipase normal. STUDIES: CT of the abdomen and pelvis ordered by me and reviewed demonstrates moderate inflammation about the pancreas. No moderate stool burden within the colon. No evidence of bowel obstruction. ASSESSMENT: 1. Pancreatitis 2. History of alcohol abuse 3. Gallbladder sludge PLAN: 1. Agree with laxative for bowel movements. 2. Patient clinically reports improvement of condition from yesterday compared today. 3. Disposition home pending bowel movements Objective - Vital Signs Vital signs: Vital Signs Temp 97.6 F 07/05/20 11:53 Pulse 86 07/05/20 11:53 Resp 18 07/05/20 11:53 BP 156/79 07/05/20 11:53 Pulse Ox 94 L 07/05/20 11:53 Intake & Output 07/04/20 07/05/20 07/05/20 18:59 06:59 18:59 Intake Total 475 Output Total 300 1000 Balance -300 475 -1000 Intake: Intake, IV Titration 475 Amount Piperacillin-Tazobactam 3 100 .375 gm In Sodium Chloride 0.9% 100 ml @ 25 mls/hr IVPB Q8H [facility] Rx#: [id number] Sodium Chloride 0.9% 1, 375 000 ml @ 50 mls/hr IV . Q20H [facility] Rx#:[id number] Output: Urine 300 1000 Other: Voiding Method Toilet Toilet Urinal Urinal Urinal # Voids 1 1 - Labs CBC & Chem 7: 07/05/20 06:47 07/05/20 06:47 Labs: Abnormal Lab Results - Last 24 Hours (Table) 07/05/20 07/05/20 Range/Units 06:47 06:47 RBC 4.09 L (4.30-5.90) m/uL Neutrophils # 8.2 H (1.3-7.7) k/uL Lymphocytes # 0.9 L (1.0-4.8) k/uL Sodium 134 L (135-145) mmol/L Glucose 112 H (70-110) mg/dL Total Protein 6.1 L (6.2-8.2) g/dL Microbiology - Last 24 Hours (Table) 07/02/20 10:56 Blood Culture - Preliminary Blood No Growth after 72 hours Assessment and Plan (1) Gallbladder sludge Current Visit: Yes Status: Acute Code(s): K82.8 - OTHER SPECIFIED DISEASES OF GALLBLADDER SNOMED Code(s): 34379058 (2) Pancreatitis Current Visit: Yes Status: Acute Code(s): K85.9 - ACUTE PANCREATITIS, UNSPECIFIED * DO NOT USE * SNOMED Code(s): 74953656 (3) Acute pancreatitis Current Visit: No Status: Acute Code(s): K85.9 - ACUTE PANCREATITIS, UNSPECIFIED * DO NOT USE * SNOMED Code(s): 034781588 (4) Alcohol abuse Current Visit: No Status: Acute Code(s): F10.10 - ALCOHOL ABUSE, UNCOMPLICATED SNOMED Code(s): 33877900 (5) Alcohol-induced pancreatitis Current Visit: Yes Status: Acute Code(s): K85.20 - ALCOHOL INDUCED ACUTE PANCREATITIS WITHOUT NECROSIS OR INFCT SNOMED Code(s): 278438881 (6) Gallstones without obstruction of gallbladder Current Visit: Yes Status: Acute Code(s): K80.20 - CALCULUS OF GALLBLADDER W/O CHOLECYSTITIS W/O OBSTRUCTION SNOMED Code(s): 77445183
[2020-07-05] MEDS: SODIUM CHLORIDE 0.9% 1,000 ML IV SCH (17:01)
[2020-07-05] MEDS: ONDANSETRON 4 MG/2 ML VIAL IVP PRN (20:30)
--- NOTE | 2020-07-05 21:47 | P.PN ---
Progress Note - Text Progress Note Date: 07/05/20 Chief Complaint: Abdominal pain History of presenting complaint: This is a [address] Chavez. Chronic stable medical conditions include COPD, fibromyalgia, hypertension, osteoarthritis, chronic pancreatitis from alcoholism, peripheral neuropathy varicose veins, restless leg syndrome, BPH surgery, Alvarenga's esophagus and chronic low back pain from osteoarthritis. Patient has continued to drink about 4-5 beers a day. Conditions to smoke cigarettes. Patient presents with increasing abdominal pain from yesterday up her abdomen. Along with nausea vomiting. Normally has one bowel movement a day. Has a congestive cough and some wheezing. Denies any fever and chills. Admitted with acute severe pancreatitis. Admitted with acute severe pancreatitis, COPD exacerbation, acute kidney injury with ATN. Possible acute on chronic cholecystitis. Patient nothing by mouth. Bronchodilators steroids. IV Zosyn added. Today-patient stated had not had a bowel movement for large over 5 days. Abdomen distended. Upper abdominal pain. No nausea vomiting. No fever. Review of systems: Was done for constitutional, cardiovascular, GI, pulmonary. relevant finding as above Active Medications Albuterol Sulfate (Albuterol Nebulized 2.5 Mg/3 Ml) 2.5 mg INHALATION RT-QID PRN PRN Reason: Shortness Of Breath Albuterol/Ipratropium (Ipratropium-Albuterol 3 Ml Neb) 3 ml INHALATION RT-Q4H [facility] Last Admin: 07/05/20 19:05 Dose: Not Given Documented by: Amlodipine Besylate (Amlodipine 10 Mg Tab) 10 mg PO DAILY [facility] Last Admin: 07/05/20 08:17 Dose: 10 mg Documented by: Budesonide (Budesonide 1 Mg/2 Ml Nebu) 1 mg INHALATION RT-BID [facility] Last Admin: 07/05/20 19:05 Dose: Not Given Documented by: Cyclobenzaprine HCl (Cyclobenzaprine 10 Mg Tab) 10 mg PO TID PRN PRN Reason: Muscle Spasm Diazepam (Diazepam 2 Mg Tab) 1 mg PO BID [facility] Last Admin: 07/05/20 20:30 Dose: 1 mg Documented by: Enoxaparin Sodium (Enoxaparin 40 Mg/0.4 Ml Syringe) 40 mg SQ DAILY [facility] Last Admin: 07/05/20 08:18 Dose: 40 mg Documented by: Formoterol Fumarate (Formoterol Fumarate 20 Mcg/2 Ml Nebu) 20 mcg INHALATION RT-BID [facility] Last Admin: 07/05/20 19:05 Dose: Not Given Documented by: Gabapentin (Gabapentin 400 Mg Cap) 800 mg PO TID [facility] Last Admin: 07/05/20 20:37 Dose: Not Given Documented by: Sodium Chloride (Saline 0.9%) 1,000 mls @ 50 mls/hr IV .Q20H [facility] Last Admin: 07/05/20 17:01 Dose: 50 mls/hr Documented by: Piperacillin Sod/Tazobactam (Sod 3.375 gm/ Sodium Chloride) 100 mls @ 25 mls/hr IVPB Q8H [facility] Last Admin: 07/05/20 14:08 Dose: 25 mls/hr Documented by: Iopamidol (Iopamidol Contrast (Oral Use) Vial) 30 ml PO Q60M PRN PRN Reason: CT Scan Stop: 07/06/20 09:39 Lisinopril (Lisinopril 20 Mg Tab) 20 mg PO DAILY [facility] Last Admin: 07/05/20 08:17 Dose: 20 mg Documented by: Lorazepam (Lorazepam 2 Mg/Ml Inj) 1 mg IV Q2HR PRN PRN Reason: CIWA 8 or 9 Lorazepam (Lorazepam 2 Mg/Ml Inj) 1 mg IV Q1HR PRN PRN Reason: CIWA 10 to 15 Montelukast Sodium (Montelukast 10 Mg Tab) 10 mg PO DAILY [facility] Last Admin: 07/05/20 08:17 Dose: 10 mg Documented by: Naloxone HCl (Naloxone 0.4 Mg/Ml 1 Ml Vial) 0.2 mg IV Q2M PRN PRN Reason: Opioid Reversal Nicotine (Nicotine 21mg/24hr Patch) 1 patch TRANSDERM DAILY PRN PRN Reason: SMOKING CESSATION Ondansetron HCl (Ondansetron 4 Mg/2 Ml Vial) 4 mg IVP Q6HR PRN PRN Reason: Nausea And Vomiting Last Admin: 07/05/20 20:30 Dose: 4 mg Documented by: Oxycodone/Acetaminophen (Oxycodone-Apap 10-325mg 1 Each Tab) 1 each PO Q4H PRN PRN Reason: Pain Last Admin: 07/05/20 17:00 Dose: 1 each Documented by: Pantoprazole Sodium (Pantoprazole 40 Mg/10 Ml Vial) 40 mg IVP BID [facility] Last Admin: 07/05/20 20:31 Dose: 40 mg Documented by: Ropinirole HCl (Ropinirole Hcl 1 Mg Tab) 1 mg PO TID [facility] Last Admin: 07/05/20 20:31 Dose: 1 mg Documented by: Sertraline HCl (Sertraline 50 Mg Tab) 50 mg PO DAILY [facility] Last Admin: 07/05/20 08:17 Dose: 50 mg Documented by: Tamsulosin HCl (Tamsulosin 0.4 Mg Cap.Er.24h) 0.4 mg PO DAILY PRN PRN Reason: PROSTATE PAIN Thiamine HCl (Thiamine 100 Mg Tab) 100 mg PO BID-W/MEALS [facility] Last Admin: 07/05/20 17:01 Dose: 100 mg Documented by: Physical examination: VITAL SIGNS: 97.6, 86, 18, 156/79, 94% room air GENERAL: BMI 29.8, laying in bed, EYES: Pupils equal. Conjunctiva normal. HEENT: External appearance of nose and ears normal, oral cavity grossly normal. NECK: JVD not raised; masses not palpable. HEART: First and second heart sounds are normal; minimal edema. LUNGS: Respiratory rate increased, diminished breath sounds. Prolonged expiration, some extremity crackles Some wheezing ABDOMEN: Soft, abdominal distention, upper abdominal tenderness, no guarding or rigidity, liver spleen not palpable, no masses palpable. PSYCH: Alert and oriented x3; mood and affect slightly anxious INVESTIGATIONS, reviewed in the clinical context: White count and hemoglobin 13 potassium 4.1 creatinine 0.7 lipase 49 Previous testing White count and hemoglobin 15 platelets 245 potassium 4.3 creatinine 1.37 Amylase 2168, lipase greater than 20,000 COVID 19 P/Cr-not detected EKG tracing personally reviewed by me-normal sinus rhythm Abdominal ultrasound-hepatomegaly, tumefactive sludge in the gallbladder and abdominal gallbladder distention and wall thickening Assessment: -Acute severe pancreatitis in a patient with known chronic pancreatitis from alcoholism-clinically and biochemically , POA-improved -Acute COPD exacerbation in a cigarette smoker, POA-improving -Chronic nicotine dependence, patient cigarette smoker -Gallbladder sludge with gallbladder wall thickening some dilatation-cannot rule out acute/chronic cholecystitis, POA-IV Zosyn added -Acute kidney injury likely ATN, -improved POA -Chronic fibromyalgia -Essential hypertension -Primary osteoarthritis -Alcoholic peripheral neuropathy -restless leg syndrome -Alvarenga's esophagus -Alcohol use disorder -Acute constipation with no bowel movement for over 5 days Plan: -Laxative ordered by GI. Computed tomography scan of the abdomen done later today showed evidence of acute pancreatitis. Other medications to continue. Discussed with patient and Dr. Edel Avila.
[2020-07-06] MEDS: IPRATROPIUM-ALBUTEROL 3 ML NEB INHALATION SCH ×3 (00:54→09:00)
[2020-07-06] MEDS: oxyCODONE-APAP 10-325MG 1 EACH TAB PO PRN ×3 (01:44→09:47)
[2020-07-06] MEDS: PIPERACILLIN-TAZOBACTAM 3.375 GM in SODIUM CHLORIDE 0.9% 100 ML IVPB SCH (05:53)
[2020-07-06 07:49] VITALS: BP 117/75; PULSE 96; RESP 16; TEMP 98.3
[2020-07-06] MEDS: ENOXAPARIN 40 MG/0.4 ML SYRINGE SQ SCH (07:54)
[2020-07-06] MEDS: GABAPENTIN 400 MG CAP PO SCH ×2 (07:55→08:27)
[2020-07-06] MEDS: MONTELUKAST 10 MG TAB PO SCH (07:55)
[2020-07-06] MEDS: amLODIPine 10 MG TAB PO SCH (07:55)
[2020-07-06] MEDS: THIAMINE 100 MG TAB PO SCH (07:55)
[2020-07-06] MEDS: lisinopriL 20 MG TAB PO SCH (07:55)
[2020-07-06] MEDS: PANTOPRAZOLE 40 MG/10 ML VIAL IVP SCH (07:55)
[2020-07-06] MEDS: SERTRALINE 50 MG TAB PO SCH (08:25)
[2020-07-06] MEDS: FORMOTEROL FUMARATE 20 MCG/2 ML NEBU INHALATION SCH (09:00)
[2020-07-06] MEDS: BUDESONIDE 1 MG/2 ML NEBU INHALATION SCH (09:00)
--- NOTE | 2020-07-06 09:58 | P.PN ---
Subjective Progress Note Date: 07/06/20 CHIEF COMPLAINT: Pancreatitis HISTORY OF PRESENT ILLNESS: The patient is a 60-year-old male admitted for pancreatitis. He had a bowel movement. No new abdominal pain. He is passing much flatus and having bowel movement. ROS: No reports of nausea and vomiting. No fevers or chills. No new chest pain. PHYSICAL EXAM: VITAL SIGNS: Reviewed CONSTITUTIONAL: Well developed and in no acute distress. EYES: Conjuctivae without sclera icterus. Extraocular movements grossly intact. HEAD, EARS, NOSE, THROAT: Moist buccal mucosa. Head is atraumatic, normocephalic. Hears conversational speech. No nasal drainage. NECK: Supple. RESPIRATORY: Non-labored respirations and equal bilateral excursions. CARDIOVASCULAR: Palpable 2+ radial pulses. ABDOMEN: Nontender. MUSCULOSKELETAL: No gross deformity of the lower extremities noted. No clubbing. No cyanosis. SKIN: Good skin turgor. Well perfused. NEUROLOGIC: Cranial nerves II through XII grossly intact. No focal or lateralizing signs. PSYCH: Appropriate affect. Alert and oriented to person, place and time. CLINICAL LABS: WBC and Hgb normal. Lipase normal. ASSESSMENT: 1. Pancreatitis 2. History of alcohol abuse 3. Gallbladder sludge PLAN: 1. Simethicone gas chews ordered. 2. Otherwise, surgically stable for discharge. Follow up as outpatient. Objective - Vital Signs Vital signs: Vital Signs Temp 98.3 F 07/06/20 07:48 Pulse 96 07/06/20 07:48 Resp 16 07/06/20 07:48 BP 117/75 07/06/20 07:48 Pulse Ox 94 L 07/06/20 07:48 Intake & Output 07/05/20 07/06/20 07/06/20 18:59 06:59 18:59 Intake Total 200 1550 Output Total 1000 Balance -800 1550 Intake: Intake, IV Titration 200 700 Amount Piperacillin-Tazobactam 3 200 100 .375 gm In Sodium Chloride 0.9% 100 ml @ 25 mls/hr IVPB Q8H [facility] Rx#: [id number] Sodium Chloride 0.9% 1, 600 000 ml @ 50 mls/hr IV . Q20H [facility] Rx#:[id number] Oral 850 Output: Urine 1000 Other: Voiding Method Urinal # Voids 3 - Labs CBC & Chem 7: 07/05/20 06:47 07/05/20 06:47 Labs: Abnormal Lab Results - Last 24 Hours (Table) 07/03/20 07/05/20 Range/Units 07:18 06:47 Sodium 134 L (135-145) mmol/L Glucose 112 H (70-110) mg/dL Total Protein 6.1 L (6.2-8.2) g/dL Amylase 306 H* (23-121) U/L Microbiology - Last 24 Hours (Table) 07/02/20 10:56 Blood Culture - Preliminary Blood No Growth after 72 hours Assessment and Plan (1) Gallbladder sludge Current Visit: Yes Status: Acute Code(s): K82.8 - OTHER SPECIFIED DISEASES OF GALLBLADDER SNOMED Code(s): 35759671 (2) Pancreatitis Current Visit: Yes Status: Acute Code(s): K85.9 - ACUTE PANCREATITIS, UNSPECIFIED * DO NOT USE * SNOMED Code(s): 59374213 (3) Acute pancreatitis Current Visit: No Status: Acute Code(s): K85.9 - ACUTE PANCREATITIS, UNSPECIFIED * DO NOT USE * SNOMED Code(s): 330406155 (4) Alcohol abuse Current Visit: No Status: Acute Code(s): F10.10 - ALCOHOL ABUSE, UNCOMPLICATED SNOMED Code(s): 03296499 (5) Alcohol-induced pancreatitis Current Visit: Yes Status: Acute Code(s): K85.20 - ALCOHOL INDUCED ACUTE PANCREATITIS WITHOUT NECROSIS OR INFCT SNOMED Code(s): 860004465 (6) Gallstones without obstruction of gallbladder Current Visit: Yes Status: Acute Code(s): K80.20 - CALCULUS OF GALLBLADDER W/O CHOLECYSTITIS W/O OBSTRUCTION SNOMED Code(s): 38964618
[2020-07-06] MEDS ORDERED: SIMETHICONE 80 MG CHEWABLE PO SCH (10:00)
--- NOTE | 2020-07-06 13:00 | P.PN ---
Subjective Progress Note Date: 07/06/20 Principal diagnosis: Acute pancreatitis Patient was seen and examined at the bedside. He was sitting up in bed. He states he had 2 bowel movements this morning. He is feeling much better than yesterday. Abdominal pain and distention have improved. He is tolerating his diet. He is anxious to go home. Objective - Vital Signs Vital signs: Vital Signs Temp 98.3 F 07/06/20 07:48 Pulse 96 07/06/20 07:48 Resp 16 07/06/20 07:48 BP 117/75 07/06/20 07:48 Pulse Ox 94 L 07/06/20 07:48 Intake & Output 07/05/20 07/06/20 07/06/20 18:59 06:59 18:59 Intake Total 200 1550 Output Total 1000 Balance -800 1550 Intake: Intake, IV Titration 200 700 Amount Piperacillin-Tazobactam 3 200 100 .375 gm In Sodium Chloride 0.9% 100 ml @ 25 mls/hr IVPB Q8H [facility] Rx#: [id number] Sodium Chloride 0.9% 1, 600 000 ml @ 50 mls/hr IV . Q20H [facility] Rx#:[id number] Oral 850 Output: Urine 1000 Other: Voiding Method Urinal # Voids 3 - Exam General appearance: The patient is alert, oriented, in no acute distress. HET: Head is normocephalic and atraumatic. Conjunctiva pink. Sclera anicteric. Neck: Supple without lymphadenopathy. Abdomen: Soft, obeses, non-tender, nondistended with bowel sounds. No guarding or rigidity. Extremities: Normal skin color and turgor. No pedal edema Neurological: No focal deficits. Alert and oriented 3. - Labs CBC & Chem 7: 07/05/20 06:47 07/05/20 06:47 Labs: Abnormal Lab Results - Last 24 Hours (Table) 07/03/20 07/05/20 Range/Units 07:18 06:47 Sodium 134 L (135-145) mmol/L Glucose 112 H (70-110) mg/dL Total Protein 6.1 L (6.2-8.2) g/dL Amylase 306 H* (23-121) U/L Microbiology - Last 24 Hours (Table) 07/02/20 10:56 Blood Culture - Preliminary Blood No Growth after 72 hours Assessment and Plan Assessment: 1. Chronic relapsing pancreatitis with acute exacerbation that is alcohol related. Patient with multiple hospitalizations in the past with recurrent pancreatitis presents with abdominal pain for the last 3 days duration noted to have elevated lipase consistent with acute flareup. Serum transaminases are within normal limits which makes it unlikely we aren't dealing with any biliary pancreatitis. Ultrasound of the abdomen did show some sludge in the gallbladder, but no gallstones noted. 2. Heavy alcohol abuse 3. Prior history cirrhosis of the liver with esophageal variceal bleeding in the past 4. History of hypertension and hyperlipidemia 5. Chronic pain syndrome Plan: 1. Diet as tolerated 2. Pain medication as needed 3. Patient is status post magnesium citrate and fleets enema 4. Abstinence from alcohol The patient has had 2 bowel movements and is overall feeling much better. Patient may be discharged home from a gastroenterology standpoint. Patient should follow-up within 2 weeks. Thank you for this consultation The impression and plan of care has been dictated as directed. Dr. Padilla I performed a history and examination of this patient, discussed the same with the dictator. I agree with the dictator's note ,documented as a scribe. Any additional findings or plans will be noted.
--- NOTE | 2020-07-07 23:20 | P.DS ---
Providers Date of admission: 07/02/20 08:34 Expected date of discharge: 07/06/20 Attending physician: Jamal Tamayo Consults: 07/02/20 09:02 Consult Physician Stat Consulting Provider: Laverne Avila Consult Reason/Comments: pancreatitis, hx of ETOH abuse Do you want consulting provider notified?: Yes 07/02/20 22:32 Consult Physician Routine Consulting Provider: Ingrid Szymanski Consult Reason/Comments: Abnormal gallbladder Do you want consulting provider notified?: Yes Primary care physician: [facility] Course: Chief Complaint: Abdominal pain History of presenting complaint: This is a [address] Chavez. Chronic stable medical conditions include COPD, fibromyalgia, hypertension, osteoarthritis, chronic pancreatitis from alcoholism, peripheral neuropathy varicose veins, restless leg syndrome, BPH surgery, Alvarenga's esophagus and chronic low back pain from osteoarthritis. Patient has continued to drink about 4-5 beers a day. Conditions to smoke cigarettes. Patient presents with increasing abdominal pain from yesterday up her abdomen. Along with nausea vomiting. Normally has one bowel movement a day. Has a congestive cough and some wheezing. Denies any fever and chills. Admitted with acute severe pancreatitis.creatinine was 1.37 did drop down to 0.7 Admitted with acute severe pancreatitis, COPD exacerbation, acute kidney injury with ATN. Possible acute on chronic cholecystitis. Patient nothing by mouth. Bronchodilators steroids. IV Zosyn added.abdominal pain much improved. Was put on Augmentin for discharge for the cholecystitis. This will be followed by Dr. Mena as an outpatient. Today-abdominal pain much better. Tolerating a soft bland diet. Ambulating. consultation: Dr. Edel Avila and partner from GI Dr. Mena from general surgery Physical examination: VITAL SIGNS:98.3, 76, 16, 117/75, 94% room air GENERAL: comfortable EYES: Pupils equal. Conjunctiva normal. HEENT: External appearance of nose and ears normal, oral cavity grossly normal. NECK: JVD not raised; masses not palpable. HEART: First and second heart sounds are normal; minimal edema. LUNGS: Respiratory rate increased, diminished breath sounds. Prolonged expiration, some extremity crackles Some wheezing ABDOMEN: Soft, no tenderness, no guarding or rigidity, liver spleen not palpable, no masses palpable. PSYCH: Alert and oriented x3; mood and affect slightly anxious INVESTIGATIONS, reviewed in the clinical context: white count and hemoglobin 13 potassium 4.1 Previous testing White count and hemoglobin 15 platelets 245 potassium 4.3 creatinine 1.37 Amylase 2168, lipase greater than 20,000 COVID 19 P/Cr-not detected EKG tracing personally reviewed by me-normal sinus rhythm Abdominal ultrasound-hepatomegaly, tumefactive sludge in the gallbladder and abdominal gallbladder distention and wall thickening abdominal computed tomography scan-suggestive of acute pancreatitis. Assessment: -Acute severe pancreatitis in a patient with known chronic pancreatitis from alcoholism-clinically and biochemically , POA-improved -Acute COPD exacerbation in a cigarette smoker, POA- -Chronic nicotine dependence, patient cigarette smoker -Gallbladder sludge with gallbladder wall thickening some dilatation-cannot rule out acute/chronic cholecystitis, POA-DC and Augmentin -Acute kidney injury likely ATN, -improved POA -Chronic fibromyalgia -Essential hypertension -Primary osteoarthritis -Alcoholic peripheral neuropathy -restless leg syndrome -Alvarenga's esophagus -Alcohol use disorder -Acute constipation with no bowel movement for over 5 days disposition: Home Patient Condition at Discharge: Stable Plan - Discharge Summary Discharge Rx Participant: No New Discharge Prescriptions: New Amoxicillin/Potassium Clav [Augmentin 875-125 Tablet] 1 tab PO Q12HR #14 tab Ipratropium-Albuterol Nebulize [Duoneb 0.5 mg-3 mg/3 ml Soln] 3 ml INHALATION TID #90 ml Continue lisinopriL [Zestril] 20 mg PO DAILY rOPINIRole HCL [Requip] 1 mg PO TID Cyclobenzaprine [Flexeril] 10 mg PO TID PRN PRN Reason: Muscle Spasm amLODIPine [Norvasc] 10 mg PO DAILY Gabapentin [Neurontin] 800 mg PO TID Nicotine 21Mg/24Hr Patch [Habitrol] 1 patch TRANSDERM DAILY PRN PRN Reason: SMOKING CESSATION Montelukast [Singulair] 10 mg PO DAILY oxyCODONE-APAP 10-325MG [Percocet 10-325 mg] 1 tab PO TID Latanoprost/Pf [Latanoprost 0.005% Eye Drop] 1 drop BOTH EYES HS Albuterol Nebulized [Ventolin Nebulized] 2.5 mg INHALATION RT-QID PRN PRN Reason: Shortness Of Breath Sertraline [Zoloft] 50 mg PO DAILY Fluticasone Propion/Salmeterol [Wixela 500-50 Inhub] 1 puff INHALATION RT-BID Tamsulosin [Flomax] 0.4 mg PO DAILY PRN PRN Reason: PROSTATE PAIN Omeprazole 20 mg PO DAILY Warfarin [Coumadin] 2.5 mg PO DAILY Albuterol Sulfate [Albuterol Sulfate Hfa] 2 puff INHALATION RT-QID PRN PRN Reason: Shortness Of Breath Fluticasone Nasal [place] [Flonase Nasal [place]] 2 spr EA NOSTRIL DAILY PRN PRN Reason: Allergy Symptoms Discontinued Loratadine [Claritin] 10 mg PO DAILY Furosemide [Lasix] 20 mg PO DAILY Naproxen [Naprosyn] 500 mg PO BID Discharge Medication List Cyclobenzaprine [Flexeril] 10 mg PO TID PRN 06/28/16 [History] lisinopriL [Zestril] 20 mg PO DAILY 06/28/16 [History] rOPINIRole HCL [Requip] 1 mg PO TID 06/28/16 [History] amLODIPine [Norvasc] 10 mg PO DAILY 09/26/16 [History] Gabapentin [Neurontin] 800 mg PO TID 09/18/17 [History] Nicotine 21Mg/24Hr Patch [Habitrol] 1 patch TRANSDERM DAILY PRN 09/18/17 [History] Montelukast [Singulair] 10 mg PO DAILY 01/12/18 [History] oxyCODONE-APAP 10-325MG [Percocet 10-325 mg] 1 tab PO TID 09/12/18 [History] Latanoprost/Pf [Latanoprost 0.005% Eye Drop] 1 drop BOTH EYES HS 05/20/19 [History] Albuterol Nebulized [Ventolin Nebulized] 2.5 mg INHALATION RT-QID PRN 11/12/19 [History] Albuterol Sulfate [Albuterol Sulfate Hfa] 2 puff INHALATION RT-QID PRN 02/08/20 [History] Fluticasone Propion/Salmeterol [Wixela 500-50 Inhub] 1 puff INHALATION RT-BID 02/08/20 [History] Omeprazole 20 mg PO DAILY 02/08/20 [History] Sertraline [Zoloft] 50 mg PO DAILY 02/08/20 [History] Tamsulosin [Flomax] 0.4 mg PO DAILY PRN 02/08/20 [History] Warfarin [Coumadin] 2.5 mg PO DAILY 02/08/20 [History] Fluticasone Nasal [place] [Flonase Nasal [place]] 2 spr EA NOSTRIL DAILY PRN 07/02/20 [History] Amoxicillin/Potassium Clav [Augmentin 875-125 Tablet] 1 tab PO Q12HR #14 tab 07/06/20 [Rx] Ipratropium-Albuterol Nebulize [Duoneb 0.5 mg-3 mg/3 ml Soln] 3 ml INHALATION TID #90 ml 07/06/20 [Rx] Follow up Appointment(s)/Referral(s): Ingrid Szymanski MD [STAFF PHYSICIAN] - 07/14/20 3:15 pm Albert Chavez MD [Primary Care Provider] - 07/16/20 9:45 am Annabella Alaniz NPC [Nurse Practitioner] - 2 Weeks Patient Instructions/Handouts: Amoxicillin/Clavulanate Potassium (By mouth), Ipratropium/Albuterol (By breathing), Pancreatitis (DC) Activity/Diet/Wound Care/Special Instructions: Lab work ---CBC/CMP/INR in 5 days Discharge Disposition: HOME SELF-CARE
== END 2020-07-06 12:20 | disposition home or self-care (01) | DRG 438 ==
LOC: EC 06:18 → 4SSUR 08:34 → 6NMEDSUR 14:48 → 5NMEDONC 07-05 18:07
PROVIDERS: ADMIT Hospitalist; ATTEND Hospitalist
DX: K85.20 Alcohol induced acute pancreatitis without necrosis or infection (principal); N17.0 Acute kidney failure with tubular necrosis; J44.1 Chronic obstructive pulmonary disease with (acute) exacerbation; K80.10 Calculus of gallbladder with chronic cholecystitis without obstruction; G62.1 Alcoholic polyneuropathy; F10.20 Alcohol dependence, uncomplicated; K86.0 Alcohol-induced chronic pancreatitis; Z20.828 Contact with and (suspected) exposure to other viral communicable diseases; I25.10 Atherosclerotic heart disease of native coronary artery without angina pectoris; M79.7 Fibromyalgia; I25.2 Old myocardial infarction; I83.90 Asymptomatic varicose veins of unspecified lower extremity; E78.5 Hyperlipidemia, unspecified; N40.0 Benign prostatic hyperplasia without lower urinary tract symptoms; K22.70 Barrett's esophagus without dysplasia; I10 Essential (primary) hypertension; G25.81 Restless legs syndrome; H40.9 Unspecified glaucoma; M19.91 Primary osteoarthritis, unspecified site; M47.9 Spondylosis, unspecified; F32.9 Major depressive disorder, single episode, unspecified; F41.9 Anxiety disorder, unspecified; M54.5 Low back pain; G89.4 Chronic pain syndrome; K59.00 Constipation, unspecified; F17.210 Nicotine dependence, cigarettes, uncomplicated; Z79.51 Long term (current) use of inhaled steroids; Z79.01 Long term (current) use of anticoagulants; Z79.899 Other long term (current) drug therapy; Z87.19 Personal history of other diseases of the digestive system; Z90.49 Acquired absence of other specified parts of digestive tract; Z86.19 Personal history of other infectious and parasitic diseases; Z96.651 Presence of right artificial knee joint; Z90.79 Acquired absence of other genital organ(s); Z87.39 Personal history of other diseases of the musculoskeletal system and connective tissue; Z98.890 Other specified postprocedural states; Z88.0 Allergy status to penicillin; Z88.8 Allergy status to other drugs, medicaments and biological substances; Z82.3 Family history of stroke; Z82.49 Family history of ischemic heart disease and other diseases of the circulatory system; Z81.1 Family history of alcohol abuse and dependence; Z82.5 Family history of asthma and other chronic lower respiratory diseases; Z83.3 Family history of diabetes mellitus; Z81.2 Family history of tobacco abuse and dependence; K74.60 Unspecified cirrhosis of liver
CPT/HCPCS: 36415; 74177; 76705; 80053; 81003; 82150; 83605; 83690; 84145; 84484; 85025; 85027; 85610; 87040; 87635; 93005; 94640; 96361; 96365; 96372; 96375; 96376; 99285

== ENCOUNTER → 2020-07-16 | Outpatient (CLI) | payer OTHER ==
[2020-07-16 12:11] LABS: HCT 41.8 % (39.0-53.0); HGB 13.6 gm/dL (13.0-17.5); MCH 30.9 pg (25.0-35.0); MCHC 32.5 g/dL (31.0-37.0); MCV 94.9 fL (80.0-100.0); Mean Platelet Volume 6.5; Platelet Count 385 k/uL (150-450); RBC 4.41 m/uL (4.30-5.90); RDW 13.5 % (11.5-15.5); WBC 6.1 k/uL (3.8-10.6)
[2020-07-16 19:51] LABS: INR 0.96 (0.90-1.11); Prothrombin Time 10.4 sec (9.9-11.9)
[2020-07-16 20:43] LABS: African American GFR (CKD) 84.1 (60.0-200.0); Albumin 4.2 g/dL (3.80-4.90); Albumin/Globulin Ratio 1.91 (1.60-3.17); Anion Gap 5.7 mmol/L (4.00-12.00); BUN/Creat Ratio 17.27 Ratio (12.00-20.00); Calcium 9.3 mg/dL (8.7-10.3); Carbon Dioxide 25.3 mmol/L (21.6-31.8); Globulin 2.2 g/dL (1.6-3.3); Non-African American GFR(CKD) 72.6 (60.0-200.0); Potassium 4.9 mmol/L (3.5-5.5); Total Bilirubin 0.2 mg/dL (0.3-1.2); Total Protein 6.4 g/dL (6.2-8.2)
== END | disposition home or self-care (01) ==
LOC: LABWHC1 11:06
PROVIDERS: ATTEND Hospitalist
DX: N17.0 Acute kidney failure with tubular necrosis (principal); K85.20 Alcohol induced acute pancreatitis without necrosis or infection
CPT/HCPCS: 36415; 80053; 85027; 85610

== ENCOUNTER → 2020-08-21 | Outpatient (CLI) | payer OTHER ==
--- NOTE | 2020-08-21 14:20 | US ---
EXAMINATION TYPE: US venous doppler duplex LE LT DATE OF EXAM: 08/21/2020 2:03 PM COMPARISON: US CLINICAL HISTORY: LLE I82.409 DVT. Followup left leg DVT; taking blood thinner. SIDE PERFORMED: Left TECHNIQUE: The lower extremity deep venous system is examined utilizing real time linear array sonog miguel a with graded compression, doppler sonography and color-flow sonography. VESSELS IMAGED: Common Femoral Vein Deep Femoral Vein Greater Saphenous Vein * Femoral Vein Popliteal Vein Small Saphenous Vein * Proximal Calf Veins (* superficial vessels) Left Leg: Chronic wall changes seen left Popliteal Vein and in one of two upper calf veins suggestin g non occluding chronic venous thrombosis, with color flow patency documented throughout left leg. IMPRESSION: 1. Nonoccluding venous thrombosis popliteal vein and proximal calf vein. This is nonobstructing and h as echogenic foci suggesting chronic thrombosis.
== END | disposition home or self-care (01) ==
LOC: RADUSWWP 13:37
PROVIDERS: ATTEND Pediatrics
DX: I82.432 Acute embolism and thrombosis of left popliteal vein (principal); I82.462 Acute embolism and thrombosis of left calf muscular vein

== ENCOUNTER → 2020-12-04 | Outpatient (CLI) | payer OTHER | END | disposition home or self-care (01) | LOC: LABWHC1 17:01 | PROVIDERS: ATTEND Pediatrics | DX: U07.1 COVID-19 (principal) | CPT/HCPCS: 87502; U0003; C9803; U0005 ==

== ENCOUNTER 2021-05-03 18:05 | Emergency (ER) | payer OTHER ==
[2021-05-03 19:05] VITALS: BP 123/76; PULSE 95; RESP 18; TEMP 98.9
--- NOTE | 2021-05-03 20:08 | XR ---
RESULT: HISTORY: Pain TECHNIQUE: 3 views of the bilateral toes were obtained. COMPARISON: None. FINDINGS: Right toes: There is mild displaced fracture of the great toe distal phalangeal tuft. No evidence of dislocation. Left toes: There is small mildly displaced dorsal fracture of the great toe distal phalangeal base. N o evidence of dislocation. Hallux valgus seen. IMPRESSION: Bilateral great toe distal phalanx fractures.
--- NOTE | 2021-05-03 20:48 | ED ---
Lower Extremity Injury HPI - General Chief Complaint: Extremity Injury, Lower Stated Complaint: toe injuries on both feet Time Seen by Provider: 05/03/21 20:31 Source: patient, RN notes reviewed Mode of arrival: ambulatory Limitations: no limitations - History of Present Illness Initial Comments: Patient is a 60-year-old male that presents to emergency department complaining of bilateral feet pain. He fell several days ago and noted that he didn't having anything of it until he had continuing pain. He notes that he feels like he broke something in both of his feet. He denied any other issues or complaints at this time. He was otherwise a well-appearing 60-year-old male in no apparent distress. He denied any chest pain shortness of breath headache nausea vomiting diarrhea constipation fever fatigue chills. - Related Data Home Medications Medication Instructions Recorded Confirmed Cyclobenzaprine [Flexeril] 10 mg PO TID PRN 06/28/16 07/02/20 lisinopriL [Zestril] 20 mg PO DAILY 06/28/16 07/02/20 rOPINIRole HCL [Requip] 1 mg PO TID 06/28/16 07/02/20 amLODIPine [Norvasc] 10 mg PO DAILY 09/26/16 07/02/20 Gabapentin [Neurontin] 800 mg PO TID 09/18/17 07/02/20 Nicotine 21Mg/24Hr Patch [Habitrol] 1 patch TRANSDERM DAILY PRN 09/18/17 07/02/20 Montelukast [Singulair] 10 mg PO DAILY 01/12/18 07/02/20 oxyCODONE-APAP 10-325MG [Percocet 1 tab PO TID 09/12/18 07/02/20 10-325 mg] Latanoprost/Pf [Latanoprost 0.005% 1 drop BOTH EYES HS 05/20/19 07/02/20 Eye Drop] Albuterol Nebulized [Ventolin 2.5 mg INHALATION RT-QID PRN 11/12/19 07/02/20 Nebulized] Albuterol Sulfate [Albuterol 2 puff INHALATION RT-QID PRN 02/08/20 07/02/20 Sulfate Hfa] Fluticasone Propion/Salmeterol 1 puff INHALATION RT-BID 02/08/20 07/02/20 [Wixela 500-50 Inhub] Omeprazole 20 mg PO DAILY 02/08/20 07/02/20 Sertraline [Zoloft] 50 mg PO DAILY 02/08/20 07/02/20 Tamsulosin [Flomax] 0.4 mg PO DAILY PRN 02/08/20 07/02/20 Warfarin [Coumadin] 2.5 mg PO DAILY 02/08/20 07/02/20 Fluticasone Nasal [place] [Flonase 2 spr EA NOSTRIL DAILY PRN 07/02/20 07/02/20 Nasal [place]] Previous Rx's Medication Instructions Recorded Amoxicillin/Potassium Clav 1 tab PO Q12HR #14 tab 07/06/20 [Augmentin 875-125 Tablet] Ipratropium-Albuterol Nebulize 3 ml INHALATION TID #90 ml 07/06/20 [Duoneb 0.5 mg-3 mg/3 ml Soln] Allergies Allergy/AdvReac Type Severity Reaction Status Date / Time pregabalin [From Lyrica] Allergy Swelling Verified 05/03/21 19:05 amoxicillin trihydrate AdvReac Rapid Verified 05/03/21 19:05 [From Augmentin] Heart Rate potassium clavulanate AdvReac FELT LIKE Verified 05/03/21 19:05 [From Augmentin] HE WAS GOING TO PASS OUT FAST HEARTBEAT" Review of Systems ROS Statement: Those systems with pertinent positive or pertinent negative responses have been documented in the HPI. ROS Other: All systems not noted in ROS Statement are negative. Past Medical History Past Medical History: Coronary Artery Disease (CAD), COPD, Eye Disorder, Fibromyalgia, Hypertension, Myocardial Infarction ([place]), Osteoarthritis (OA), Prostate Disorder, Vascular Disorder Additional Past Medical History / Comment(s): Chronic cough, chronic pancreatitis, past alcohol abuse-pt states occasionally now, bilateral eye glaucoma, neuropathy bilateral feet, poor circulation to legs, varicose veins, RLS, BPH with surgery, colitis, gastritis, Alvarenga's esophagus, shingles in 2012 and states joint pain since, chronic low back pain, DDD. Last Myocardial Infarction Date:: 09/02/16 History of Any Multi-Drug Resistant Organisms: None Reported Past Surgical History: Appendectomy, Heart Catheterization, Joint Replacement, Orthopedic Surgery, Prostate Surgery Additional Past Surgical History / Comment(s): R knee arthroscopy for torn meniscus, knee replacement; R total knee arthroplasty, EGD, colonoscopy, TURP Past Anesthesia/Blood Transfusion Reactions: No Reported Reaction Past Psychological History: Anxiety, Depression Smoking Status: Current every day smoker Past Alcohol Use History: Daily Past Drug Use History: None Reported - Past Family History Father Family Medical History: CVA/TIA, Hypertension Additional Family Medical History / Comment(s): Father at the age of 38yrs from HTN/CVA. He was an alcoholic. Mother Family Medical History: COPD, Diabetes Mellitus Additional Family Medical History / Comment(s): Mother of emphysema at the age of 74 yrs (2003), mom has hx of drinking and smoking General Exam Limitations: no limitations General appearance: alert, in no apparent distress Head exam: Present: atraumatic, normocephalic, normal inspection Eye exam: Present: normal appearance, PERRL, EOMI. Absent: scleral icterus, conjunctival injection, periorbital swelling Neck exam: Present: normal inspection Respiratory exam: Present: normal lung sounds bilaterally. Absent: respiratory distress, wheezes, rales, rhonchi, stridor Cardiovascular Exam: Present: regular rate, normal rhythm, normal heart sounds. Absent: systolic murmur, diastolic murmur, rubs, gallop, clicks Extremities exam: Present: normal inspection, tenderness (Bilateral great toe), normal capillary refill. Absent: full ROM (Bilateral great toe secondary to pain), pedal edema, joint swelling, calf tenderness Neurological exam: Present: alert, oriented X3 Psychiatric exam: Present: normal affect, normal mood Skin exam: Present: warm, dry, intact, normal color. Absent: rash Course Vital Signs 05/03/21 19:01 Temperature 98.9 F Pulse Rate 95 Respiratory 18 Rate Blood Pressure 123/76 O2 Sat by Pulse 96 Oximetry Medical Decision Making - Medical Decision Making 60-year-old male complaining of bilateral foot pain after falling several days ago. X-ray of the bilateral feet ordered. X-ray shows a fracture of the distal phalanx of the bilateral great toes. Patient will be given or so shoes and referral to orthopedics. Case discussed with Dr. Carpio, patient discharge home. - Radiology Data Radiology results: report reviewed, image reviewed X-ray of the bilateral feet: Bilateral great toe distal phalanx fractures. Disposition Clinical Impression: Bilateral great toe fractures Disposition: HOME SELF-CARE Condition: Stable Instructions (If sedation given, give patient instructions): Toe Fracture (ED) Additional Instructions: Please return to the Emergency Department if symptoms worsen or any other concerns. Follow-up with primary care 1-2 days. Follow-up with orthopedics as needed. Take Tylenol Motrin as needed for pain. Wear splint issues throughout the day. Is patient prescribed a controlled substance at d/c from ED?: No Referrals: Albert Chavez MD [Primary Care Provider] - 1-2 days Carlito Stephens MD [Medical Doctor] - 1-2 days Time of Disposition: 20:51
== END 2021-05-03 20:58 | disposition home or self-care (01) ==
LOC: EC 18:05 → SUPCPDRO 18:05 → EC 20:58
DX: S92.422A Displaced fracture of distal phalanx of left great toe, initial encounter for closed fracture (principal); S92.531A Displaced fracture of distal phalanx of right lesser toe(s), initial encounter for closed fracture; F17.200 Nicotine dependence, unspecified, uncomplicated; J44.9 Chronic obstructive pulmonary disease, unspecified; I10 Essential (primary) hypertension; I25.2 Old myocardial infarction; M19.90 Unspecified osteoarthritis, unspecified site; I25.10 Atherosclerotic heart disease of native coronary artery without angina pectoris; M79.7 Fibromyalgia; N40.0 Benign prostatic hyperplasia without lower urinary tract symptoms; Z88.8 Allergy status to other drugs, medicaments and biological substances; Z88.0 Allergy status to penicillin; Z79.899 Other long term (current) drug therapy; Z79.51 Long term (current) use of inhaled steroids; Z79.01 Long term (current) use of anticoagulants; W19.XXXA Unspecified fall, initial encounter; Y92.009 Unspecified place in unspecified non-institutional (private) residence as the place of occurrence of the external cause
CPT/HCPCS: 99283

== ENCOUNTER 2021-06-26 11:38 | Emergency (ER) | payer OTHER ==
[2021-06-26 11:56] VITALS: BP 138/82; PULSE 89; RESP 19; TEMP 97.9
--- NOTE | 2021-06-26 14:04 | ED ---
General Adult HPI - General Chief complaint: Extremity Injury, Upper Stated complaint: Hand injury Time Seen by Provider: 06/26/21 12:18 Source: patient, RN notes reviewed, old records reviewed Mode of arrival: ambulatory Limitations: no limitations - History of Present Illness Initial comments: 61-year-old male presents with left hand injury. Patient states he fell one week ago and injured his hand at the base of his fifth digit. There is no head or neck trauma. No other complaints. He's had persistent pain since that time. This is his first evaluation. - Related Data Home Medications Medication Instructions Recorded Confirmed Cyclobenzaprine [Flexeril] 10 mg PO TID PRN 06/28/16 07/02/20 lisinopriL [Zestril] 20 mg PO DAILY 06/28/16 07/02/20 rOPINIRole HCL [Requip] 1 mg PO TID 06/28/16 07/02/20 amLODIPine [Norvasc] 10 mg PO DAILY 09/26/16 07/02/20 Gabapentin [Neurontin] 800 mg PO TID 09/18/17 07/02/20 Nicotine 21Mg/24Hr Patch [Habitrol] 1 patch TRANSDERM DAILY PRN 09/18/17 07/02/20 Montelukast [Singulair] 10 mg PO DAILY 01/12/18 07/02/20 oxyCODONE-APAP 10-325MG [Percocet 1 tab PO TID 09/12/18 07/02/20 10-325 mg] Latanoprost/Pf [Latanoprost 0.005% 1 drop BOTH EYES HS 05/20/19 07/02/20 Eye Drop] Albuterol Nebulized [Ventolin 2.5 mg INHALATION RT-QID PRN 11/12/19 07/02/20 Nebulized] Albuterol Sulfate [Albuterol 2 puff INHALATION RT-QID PRN 02/08/20 07/02/20 Sulfate Hfa] Fluticasone Propion/Salmeterol 1 puff INHALATION RT-BID 02/08/20 07/02/20 [Wixela 500-50 Inhub] Omeprazole 20 mg PO DAILY 02/08/20 07/02/20 Sertraline [Zoloft] 50 mg PO DAILY 02/08/20 07/02/20 Tamsulosin [Flomax] 0.4 mg PO DAILY PRN 02/08/20 07/02/20 Warfarin [Coumadin] 2.5 mg PO DAILY 02/08/20 07/02/20 Fluticasone Nasal [place] [Flonase 2 spr EA NOSTRIL DAILY PRN 07/02/20 07/02/20 Nasal [place]] Previous Rx's Medication Instructions Recorded Amoxicillin/Potassium Clav 1 tab PO Q12HR #14 tab 07/06/20 [Augmentin 875-125 Tablet] Ipratropium-Albuterol Nebulize 3 ml INHALATION TID #90 ml 07/06/20 [Duoneb 0.5 mg-3 mg/3 ml Soln] Allergies Allergy/AdvReac Type Severity Reaction Status Date / Time pregabalin [From Lyrica] Allergy Swelling Verified 06/26/21 11:56 amoxicillin trihydrate AdvReac Rapid Verified 06/26/21 11:56 [From Augmentin] Heart Rate potassium clavulanate AdvReac FELT LIKE Verified 06/26/21 11:56 [From Augmentin] HE WAS GOING TO PASS OUT FAST HEARTBEAT" Review of Systems ROS Statement: Those systems with pertinent positive or pertinent negative responses have been documented in the HPI. ROS Other: All systems not noted in ROS Statement are negative. Past Medical History Past Medical History: Coronary Artery Disease (CAD), COPD, Eye Disorder, Fibromyalgia, Hypertension, Myocardial Infarction ([place]), Osteoarthritis (OA), Prostate Disorder, Vascular Disorder Additional Past Medical History / Comment(s): Chronic cough, chronic pancreatitis, past alcohol abuse-pt states occasionally now, bilateral eye glaucoma, neuropathy bilateral feet, poor circulation to legs, varicose veins, RLS, BPH with surgery, colitis, gastritis, Alvarenga's esophagus, shingles in 2012 and states joint pain since, chronic low back pain, DDD. Last Myocardial Infarction Date:: 09/02/16 History of Any Multi-Drug Resistant Organisms: None Reported Past Surgical History: Appendectomy, Heart Catheterization, Joint Replacement, Orthopedic Surgery, Prostate Surgery Additional Past Surgical History / Comment(s): R knee arthroscopy for torn meniscus, knee replacement; R total knee arthroplasty, EGD, colonoscopy, TURP Past Anesthesia/Blood Transfusion Reactions: No Reported Reaction Past Psychological History: Anxiety, Depression Smoking Status: Current every day smoker Past Alcohol Use History: Daily Past Drug Use History: None Reported - Past Family History Father Family Medical History: CVA/TIA, Hypertension Additional Family Medical History / Comment(s): Father at the age of 38yrs from HTN/CVA. He was an alcoholic. Mother Family Medical History: COPD, Diabetes Mellitus Additional Family Medical History / Comment(s): Mother of emphysema at the age of 74 yrs (2003), mom has hx of drinking and smoking General Exam Limitations: no limitations General appearance: alert, in no apparent distress Head exam: Present: atraumatic, normocephalic Eye exam: Present: normal appearance, PERRL ENT exam: Present: normal exam Neck exam: Present: normal inspection. Absent: tenderness, meningismus Respiratory exam: Present: normal lung sounds bilaterally. Absent: respiratory distress, wheezes Cardiovascular Exam: Present: regular rate, normal rhythm GI/Abdominal exam: Present: soft. Absent: distended, tenderness, guarding Extremities exam: Present: full ROM, tenderness (Left hand, there is pain and swelling at the base of the fifth digit with some minimal ecchymosis, no laceration.) Course Vital Signs 06/26/21 11:53 Temperature 97.9 F Pulse Rate 89 Respiratory 19 Rate Blood Pressure 138/82 O2 Sat by Pulse 98 Oximetry Procedures - Orthopedic Splinting/Casting Injury #1 Side: left Upper Extremity Injury Location: hand Upper Extremity Immobilizer: ulnar gutter, synthetic pre-padded splint Medical Decision Making - Medical Decision Making 1-year-old male with left hand injury, x-ray performed, showing a fracture in the distal fifth metacarpal. Patient placed in an ulnar gutter. Given hand surgery follow-up. Disposition Clinical Impression: Metacarpal bone fracture Disposition: HOME SELF-CARE Condition: Good Instructions (If sedation given, give patient instructions): Hand Fracture (ED) Is patient prescribed a controlled substance at d/c from ED?: No Referrals: Albert Chavez MD [Primary Care Provider] - 1-2 days Anival Cantrell DO [Doctor of Osteopathic Medicine] - 1-2 days Time of Disposition: 14:04
--- NOTE | 2021-06-26 15:27 | XR ---
Left hand. HISTORY: Pain, trauma. COMPARISON: Left hand the. TECHNIQUE: 3 views left hand were obtained. There is an acute mildly displaced fracture of the distal left fifth metacarpal. The fracture does no t involve the metacarpophalangeal joint. There are degenerative changes with joint space narrowing of multiple metacarpal carpal joints. IMPRESSION: Acute fracture of the distal left fifth metacarpal.
== END 2021-06-26 14:27 | disposition home or self-care (01) ==
LOC: EC 11:38
DX: S62.307A Unspecified fracture of fifth metacarpal bone, left hand, initial encounter for closed fracture (principal); F17.200 Nicotine dependence, unspecified, uncomplicated; G25.81 Restless legs syndrome; I10 Essential (primary) hypertension; I25.10 Atherosclerotic heart disease of native coronary artery without angina pectoris; I25.2 Old myocardial infarction; J44.9 Chronic obstructive pulmonary disease, unspecified; M19.90 Unspecified osteoarthritis, unspecified site; M79.7 Fibromyalgia; Z79.01 Long term (current) use of anticoagulants; Z79.51 Long term (current) use of inhaled steroids; Z88.0 Allergy status to penicillin; Z88.1 Allergy status to other antibiotic agents; Z88.8 Allergy status to other drugs, medicaments and biological substances; Z79.899 Other long term (current) drug therapy; W19.XXXA Unspecified fall, initial encounter
CPT/HCPCS: 29125; 99283

== ENCOUNTER 2021-07-01 20:02 | Inpatient (IN) | payer OTHER ==
[2021-07-01] MEDS ORDERED: HYDROmorphone 1 MG/ML 1 ML SYRINGE IVP STA (20:33)
--- NOTE | 2021-07-01 20:57 | ED ---
General Adult HPI - General Chief complaint: Abdominal Pain Stated complaint: Vomiting,Abd pain Time Seen by Provider: 07/01/21 20:26 Source: patient, family Mode of arrival: ambulatory Limitations: no limitations - History of Present Illness Initial comments: Dictation was produced using [employer] dictation software. please excuse any grammatical, word or spelling errors. Chief Complaint: 61-year-old male multiple comorbidities presents to emergency department for epigastric abdominal pain History of Present Illness: Patient is 61-year-old male who has past medical history pancreatitis coronary artery disease and COPD. She did emergency department for several hours of epigastric abdominal pain. Patient states he's had serious pink otitis in the past. States that his symptoms are similar. States that his pain is epigastric that rates across his abdomen. Nonradiating to the back. He does complain of nausea. No vomiting or diarrhea. Denies any fevers. States that he has no chest pain or shortness of breath. States his pain is constant The ROS documented in this emergency department record has been reviewed and confirmed by me. Those systems with pertinent positive or negative responses have been documented in the HPI. All other systems are other negative and/or noncontributory. PHYSICAL EXAM: General Impression: Alert and oriented x3, not in acute distress, sitting at the bedside watching TV comfortably HEENT: Normocephalic atraumatic, extra-ocular movements intact, pupils equal and reactive to light bilaterally, mucous membranes moist. Cardiovascular: Heart regular rate and rhythm Chest: Able to complete full sentences, no retractions, no tachypnea Abdomen: abdomen soft, epigastric palpatory tenderness, non-distended, no organomegaly Musculoskeletal: Pulses present and equal in all extremities, no peripheral edema Motor: no focal deficits noted Neurological: CN II-XII grossly intact, no focal motor or sensory deficits noted Skin: Intact with no visualized rashes Psych: Normal affect and mood ED course: 61-year-old well-appearing male presents to the emergency department for epigastric pain. Patient has history of pancreatic that she states that his symptoms feel like pancreatitis. Vital signs upon arrival are within acceptable limits. To evaluation obtained. CBC unremarkable. Metabolic panel is negative. Lipase is greater than 20,000. Patient is relatively well-appearing. He states he drinks alcohol. Acute abdominal series is unremarkable. Patient be admitted for pancreatitis. Case discussed Dr. Tamayo is willing to accept patients care. GI will be c onsulted. EKG interpretation: Ventricular rate 90, sinus rhythm,. Interval 160, QRS 134, QTC 5:30. No UT prolongation, no ST or T-wave changes noted. EKG compared to 07/02/2020 showing no changes. Overall, this EKG is unremarkable - Related Data Home Medications Medication Instructions Recorded Confirmed Cyclobenzaprine [Flexeril] 10 mg PO TID PRN 06/28/16 07/01/21 lisinopriL [Zestril] 20 mg PO DAILY 06/28/16 07/01/21 amLODIPine [Norvasc] 10 mg PO DAILY 09/26/16 07/01/21 Nicotine 21Mg/24Hr Patch [Habitrol] 1 patch TRANSDERM DAILY PRN 09/18/1706/14 Montelukast [Singulair] 10 mg PO DAILY 01/12/18 07/01/21 oxyCODONE-APAP 10-325MG [Percocet 1 tab PO TID PRN 09/12/18 07/01/21 10-325 mg] Albuterol Sulfate [Albuterol 2 puff INHALATION RT-QID PRN 02/08/20 07/01/21 Sulfate Hfa] Omeprazole 20 mg PO DAILY 02/08/20 07/01/21 Warfarin [Coumadin] 2.5 mg PO DAILY 02/08/20 07/01/21 Fluticasone Nasal [place] [Flonase 2 spr EA NOSTRIL DAILY PRN 07/02/20 07/01/21 Nasal [place]] Escitalopram [Lexapro] 20 mg PO DAILY 07/01/21 07/01/21 Furosemide [Lasix] 20 mg PO DAILY 07/01/21 07/01/21 Loratadine [Claritin] 10 mg PO DAILY PRN 07/01/21 07/01/21 Pramipexole [Mirapex] 0.5 mg PO HS 07/01/21 07/01/21 Allergies Allergy/AdvReac Type Severity Reaction Status Date / Time pregabalin [From Lyrica] Allergy Swelling Verified 07/01/21 20:56 amoxicillin trihydrate AdvReac Rapid Verified 07/01/21 20:56 [From Augmentin] Heart Rate potassium clavulanate AdvReac FELT LIKE Verified 07/01/21 20:56 [From Augmentin] HE WAS GOING TO PASS OUT FAST HEARTBEAT" Review of Systems ROS Statement: Those systems with pertinent positive or pertinent negative responses have been documented in the HPI. ROS Other: All systems not noted in ROS Statement are negative. Past Medical History Past Medical History: Coronary Artery Disease (CAD), COPD, Eye Disorder, Fibr omyalgia, Hypertension, Myocardial Infarction ([place]), Osteoarthritis (OA), Prostate Disorder, Vascular Disorder Additional Past Medical History / Comment(s): Chronic cough, chronic pancreatitis, past alcohol abuse-pt states occasionally now, bilateral eye glaucoma, neuropathy bilateral feet, poor circulation to legs, varicose veins, RLS, BPH with surgery, colitis, gastritis, Alvarenga's esophagus, shingles in 2013 and states joint pain since, chronic low back pain, DDD. Last Myocardial Infarction Date:: 09/02/16 History of Any Multi-Drug Resistant Organisms: None Reported Past Surgical History: Appendectomy, Heart Catheterization, Joint Replacement, Orthopedic Surgery, Prostate Surgery Additional Past Surgical History / Comment(s): R knee arthroscopy for torn meniscus, knee replacement; R total knee arthroplasty, EGD, colonoscopy, TURP Past Anesthesia/Blood Transfusion Reactions: No Reported Reaction Past Psychological History: Anxiety, Depression Smoking Status: Current every day smoker Past Alcohol Use History: Daily Past Drug Use History: None Reported - Past Family History Father Family Medical History: CVA/TIA, Hypertension Additional Family Medical History / Comment(s): Father at the age of 38yrs from HTN/CVA. He was an alcoholic. Mother Family Medical History: COPD, Diabetes Mellitus Additional Family Medical History / Comment(s): Mother of emphysema at the age of 74 yrs (2003), mom has hx of drinking and smoking General Exam Limitations: no limitations Course Vital Signs 07/01/21 07/01/21 20:14 22:10 Temperature 98.3 F Pulse Rate 95 86 Respiratory 24 16 Rate Blood Pressure 99/76 126/78 O2 Sat by Pulse 97 95 Oximetry Medical Decision Making - Lab Data Result diagrams: 07/01/21 20:58 07/01/21 20:58 Lab Results 07/01/21 07/01/21 Range/Units 20:58 20:58 WBC 11.7 H (3.8-10.6) k/uL RBC 4.73 (4.30-5.90) m/uL Hgb 15.3 (13.0-17.5) gm/dL Hct 45.4 (39.0-53.0) % MCV 96.0 (80.0-100.0) fL MCH 32.4 (25.0-35.0) pg MCHC 33.8 (31.0-37.0) g/dL RDW 12.8 (11.5-15.5) % Plt Count 266 (150-450) k/uL MPV 7.0 Neutrophils % 78 % Lymphocytes % 14 % Monocytes % 5 % Eosinophils % 2 % Basophils % 1 % Neutrophils # 9.1 H (1.3-7.7) k/uL Lymphocytes # 1.6 (1.0-4.8) k/uL Monocytes # 0.5 (0-1.0) k/uL Eosinophils # 0.3 (0-0.7) k/uL Basophils # 0.1 (0-0.2) k/uL Sodium 136 L (137-145) mmol/L Potassium 4.2 (3.5-5.1) mmol/L Chloride 103 (98-107) mmol/L Carbon Dioxide 21 L (22-30) mmol/L Anion Gap 12 mmol/L BUN 13 (9-20) mg/dL Creatinine 0.89 (0.66-1.25) mg/dL Est GFR (CKD-EPI)AfAm >90 (>60 ml/min/1.73 sqM) Est GFR (CKD-EPI)NonAf >90 (>60 ml/min/1.73 sqM) Glucose 122 H (74-99) mg/dL Calcium 9.3 (8.4-10.2) mg/dL Total Bilirubin 0.8 (0.2-1.3) mg/dL AST 98 H (17-59) U/L ALT 49 (4-49) U/L Alkaline Phosphatase 69 (38-126) U/L Total Protein 7.5 (6.3-8.2) g/dL Albumin 4.4 (3.5-5.0) g/dL Lipase >99792 H (23-300) U/L Disposition Clinical Impression: Pancreatitis Disposition: ADMITTED IP TO THIS [facility] Condition: Fair Referrals: Albert Chavez MD [Primary Care Provider] - 1-2 days
[2021-07-01 21:06] LABS: Basophils # (A) 0.1 k/uL (0-0.2); Basophils % (A) 1 %; Eosinophils # (A) 0.3 k/uL (0-0.7); Eosinophils % (A) 2 %; HCT 45.4 % (39.0-53.0); HGB 15.3 gm/dL (13.0-17.5); Lymphocytes # (A) 1.6 k/uL (1.0-4.8); Lymphocytes % (A) 14 %; MCH 32.4 pg (25.0-35.0); MCHC 33.8 g/dL (31.0-37.0); Monocytes # (A) 0.5 k/uL (0-1.0); Monocytes % (A) 5 %; Neutrophils # (A) 9.1 k/uL (1.3-7.7); Neutrophils % (A) 78 %; Platelet Count 266 k/uL (150-450); RBC 4.73 m/uL (4.30-5.90); RDW 12.8 % (11.5-15.5); WBC 11.7 k/uL (3.8-10.6)
[2021-07-01 21:25] LABS: ALT 49 U/L (4-49); AST 98 U/L (17-59); African American GFR (CKD) >90 (>60 ml/min/1.73 sqM); Albumin 4.4 g/dL (3.5-5.0); Alkaline Phosphatase 69 U/L (38-126); Anion Gap 12 mmol/L; Blood Urea Nitrogen 13 mg/dL (9-20); Calcium 9.3 mg/dL (8.4-10.2); Carbon Dioxide 21 mmol/L (22-30); Chloride 103 mmol/L (98-107); Glucose 122 mg/dL (74-99); Non-African American GFR(CKD) >90 (>60 ml/min/1.73 sqM); Potassium 4.2 mmol/L (3.5-5.1); Sodium 136 mmol/L (137-145); Total Bilirubin 0.8 mg/dL (0.2-1.3); Total Protein 7.5 g/dL (6.3-8.2)
--- NOTE | 2021-07-01 21:46 | XR ---
EXAMINATION TYPE: XR abdomen acute w cxr DATE OF EXAM: 07/01/2021 COMPARISON: 12/31/2015 HISTORY: Abdominal pain TECHNIQUE: Frontal view of the chest obtained. Upright and supine views of the abdomen are obtained. FINDINGS: Cardiomegaly mediastinal silhouette and pulmonary vasculature normal. No acute focal airspace opacity , pleural effusion, or pneumothorax. No acute displaced osseous abnormality. No pneumoperitoneum. Nonspecific bowel gas pattern. Degenerative changes of the spine. IMPRESSION: 1. No acute cardiopulmonary process. 2. Nonspecific bowel gas pattern.
[2021-07-01 22:26] LABS: Lipase >20000 U/L (23-300)
[2021-07-01] MEDS ORDERED: ACETAMINOPHEN TAB 325 MG TAB PO PRN (22:52)
[2021-07-01] MEDS ORDERED: NALOXONE 0.4 MG/ML 1 ML VIAL IV PRN (22:52)
[2021-07-01] MEDS ORDERED: HYDROmorphone 2 MG TAB PO PRN (22:52)
[2021-07-02] MEDS: SODIUM CHLORIDE 0.9% 1,000 ML IV SCH ×2 (00:33→06:29)
[2021-07-02] MEDS: HYDROmorphone 1 MG/ML 1 ML SYRINGE IVP PRN ×4 (00:34→21:09)
[2021-07-02] MEDS ORDERED: CYCLOBENZAPRINE 10 MG TAB PO PRN (10:15)
[2021-07-02] MEDS ORDERED: ALBUTEROL HFA INHALER INHALATION PRN (10:15)
[2021-07-02] MEDS ORDERED: PANTOPRAZOLE 40 MG TABLET PO SCH (10:30)
[2021-07-02] MEDS ORDERED: ALPRAZolam 0.25 MG TAB PO PRN (11:32)
[2021-07-02] MEDS ORDERED: CALCIUM CARBONATE 500 MG CHEWABLE PO PRN (11:32)
[2021-07-02] MEDS ORDERED: LACTULOSE 20 GM/30 ML CUP PO PRN (11:32)
[2021-07-02] MEDS ORDERED: ONDANSETRON 4 MG/2 ML VIAL IVP PRN (11:32)
[2021-07-02] MEDS ORDERED: MAG HYDROX/AL HYDROX/SIMETH 30 ML CUP PO PRN (11:32)
[2021-07-02] MEDS ORDERED: MAGNESIUM HYDROXIDE 2,400 MG/10 ML CUP PO PRN (11:32)
[2021-07-02] MEDS ORDERED: MELATONIN 3 MG TABLET PO PRN (11:32)
[2021-07-02] MEDS: lisinopriL 20 MG TAB PO SCH (11:35)
[2021-07-02] MEDS: amLODIPine 10 MG TAB PO SCH (11:35)
[2021-07-02] MEDS: ESCITALOPRAM 20 MG TAB PO SCH (11:35)
[2021-07-02] MEDS: MONTELUKAST 10 MG TAB PO SCH (11:35)
--- NOTE | 2021-07-02 12:08 | XR ---
EXAMINATION TYPE: XR chest 2V DATE OF EXAM: 07/02/2021 COMPARISON: 02/21/2020 HISTORY: 61-year-old male smoker, shortness of breath, congestion TECHNIQUE: PA and lateral views FINDINGS: The cardiomediastinal silhouette, aorta, and pulmonary vasculature are within normal limits. There is hyperinflation. Increased retrosternal clear space. Subtle areas of groundglass density midlungs. IMPRESSION: COPD. Unable to exclude subtle early interstitial infiltrates at the mid lungs. Correlate for bronchi tis, atypical pneumonias, or COVID pneumonia.
[2021-07-02] MEDS: IPRATROPIUM-ALBUTEROL 3 ML NEB INHALATION SCH ×3 (12:41→19:33)
[2021-07-02] MEDS: BUDESONIDE 0.5 MG/2 ML NEBU INHALATION SCH ×2 (12:41→19:33)
--- NOTE | 2021-07-02 12:53 | P.HPIM ---
History of Present Illness H&P Date: 07/02/21 Chief Complaint: Tired History of presenting complaint: This is a [address] Chavez. Chronic stable medical conditions include COPD, fibromyalgia, hypertension, osteoarthritis, chronic pancreatitis from alcoholism, peripheral neuropathy varicose veins, restless leg syndrome, BPH surgery, Alvarenga's esophagus and chronic low back pain from osteoarthritis. has continued to drink about 2-beers a day. Also has smokes less than a pack a day. Patient yesterday started off with upper abdominal pain. Some way to the back. Some nausea and some vomiting. No fever no chills. No change in bowel pattern. Has been eating okay up to yesterday. Found to have acute pancreatitis. Patient also has been smoking some cough. Brings up clear sputum in the morning. No fever no chills. Tired rundown. Review of systems: Was done for constitutional, cardiovascular, GI, pulmonary. relevant finding as above Active Medications Acetaminophen (Acetaminophen Tab 325 Mg Tab) 650 mg PO Q6HR PRN PRN Reason: Mild Pain or Fever > 100.5 Al Hydroxide/Mg Hydroxide (Mag Hydrox/Al Hydrox/Simeth 30 Ml Cup) 15 ml PO Q6HR PRN PRN Reason: Indigestion Albuterol Sulfate (Albuterol Hfa Inhaler) 2 puff INHALATION RT-QID PRN PRN Reason: Shortness Of Breath Albuterol/Ipratropium (Ipratropium-Albuterol 3 Ml Neb) 3 ml INHALATION RT-QID [facility] Last Admin: 07/02/21 12:41 Dose: 3 ml Documented by: Alprazolam (Alprazolam 0.25 Mg Tab) 0.25 mg PO Q6HR PRN PRN Reason: Anxiety Amlodipine Besylate (Amlodipine 10 Mg Tab) 10 mg PO DAILY [facility] Last Admin: 07/02/21 11:35 Dose: 10 mg Documented by: Budesonide (Budesonide 0.5 Mg/2 Ml Nebu) 0.5 mg INHALATION RT-BID [facility] Last Admin: 07/02/21 12:41 Dose: 0.5 mg Documented by: Calcium Carbonate/Glycine (Calcium Carbonate 500 Mg Chewable) 1,000 mg PO Q4HR PRN PRN Reason: Dyspepsia Cyclobenzaprine HCl (Cyclobenzaprine 10 Mg Tab) 10 mg PO TID PRN PRN Reason: Muscle Spasm Escitalopram Oxalate (Escitalopram 20 Mg Tab) 20 mg PO DAILY [facility] Last Admin: 07/02/21 11:35 Dose: 20 mg Documented by: Guaifenesin (Guaifenesin 600 Mg Tablet.Er) 600 mg PO QID [facility] Hydromorphone HCl (Hydromorphone 1 Mg/Ml 1 Ml Syringe) 1 mg IVP Q4HR PRN PRN Reason: Pain Last Admin: 07/02/21 06:32 Dose: 1 mg Documented by: Dextrose/Sodium Chloride (Dextrose 5%-1/2ns Iv Soln) 1,000 mls @ 100 mls/hr IV .Q10H [facility] Lactulose (Lactulose 20 Gm/30 Ml Cup) 20 gm PO DAILY PRN PRN Reason: Constipation Lisinopril (Lisinopril 20 Mg Tab) 20 mg PO DAILY [facility] Last Admin: 07/02/21 11:35 Dose: 20 mg Documented by: Magnesium Hydroxide (Magnesium Hydroxide 2,400 Mg/10 Ml Cup) 2,400 mg PO DAILY PRN PRN Reason: Constipation Melatonin (Melatonin 3 Mg Tablet) 3 mg PO HS PRN PRN Reason: Insomnia Montelukast Sodium (Montelukast 10 Mg Tab) 10 mg PO DAILY [facility] Last Admin: 07/02/21 11:35 Dose: 10 mg Documented by: Naloxone HCl (Naloxone 0.4 Mg/Ml 1 Ml Vial) 0.2 mg IV Q2M PRN PRN Reason: Opioid Reversal Nicotine (Nicotine 21mg/24hr Patch) 1 patch TRANSDERM DAILY [facility] Ondansetron HCl (Ondansetron 4 Mg/2 Ml Vial) 4 mg IVP Q8HR PRN PRN Reason: Nausea And Vomiting Oxycodone/Acetaminophen (Oxycodone-Apap 10-325mg 1 Each Tab) 1 each PO TID PRN PRN Reason: Pain Pantoprazole Sodium (Pantoprazole 40 Mg Tablet) 40 mg PO DAILY [facility] Last Admin: 07/02/21 11:35 Dose: 40 mg Documented by: Pramipexole Dihydrochloride (Pramipexole 0.5 Mg Tab) 0.5 mg PO HS [facility] Social history: Patient lives with his sister Scott Villagomez sometime uses a cane. Smoked for close to 42 years. Smoking about half a pack a day. Drinking alcohol for years. Stopped for a short time. At about 4-5 beers a day. Physical examination: VITAL SIGNS: 98.8, 86, 18, 142/89, 94% room air GENERAL: Reclining in bed, awake, tired, short of breath EYES: Pupils equal. Conjunctiva normal. HEENT: External appearance of nose and ears normal, oral cavity grossly normal. NECK: JVD not raised; masses not palpable. HEART: First and second heart sounds are normal; minimal edema. LUNGS: Respiratory rate increased, diminished breath sounds. Prolonged expiration, wheezing, occasional crackles ABDOMEN: Soft, epigastric tenderness, no guarding or rigidity, liver spleen not palpable, no masses palpable. PSYCH: Alert and oriented x3; mood and affect slightly anxious NEUROLOGICAL: Cranial nerves grossly intact; no facial asymmetry, power and sensation grossly intact. LYMPHATICS: No lymph nodes palpable in the axilla and neck INVESTIGATIONS, reviewed in the clinical context: White count 11.7 hemoglobin 15.3 platelets 266 sodium 136 potassium 4.2 BUN 13 creatinine 0.89 AST 98 ALT 49 Lipase greater than 20,000 Coronavirus [PCR]: Not detected EKG tracing personally reviewed by me-normal sinus rhythm, some intraventricular block. Chest x-ray film personally reviewed by me-questionable infiltrate. Hyperinflation X-ray abdomen: Nonspecific bowel gas pattern. Assessment and plan: -Acute severe recurrent pancreatitis in a patient with known chronic pancreatitis from alcoholism Patient can use or drink 2-3 beers a day. Patient initially made nothing by mouth. Start ice chips. Follow clinically and biochemically. 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 We'll discuss further when patient was stable -Watch for DTs CIWA scale Change IV fluids to D5 0.45. Ice chips. DuoNeb, nebulized Pulmicort. Mucinex. Doxycycline. Discussed with patient. Given the complexity and severity of patient's condition expect the patient to be in the hospital at least for 2 overnights Past Medical History Past Medical History: Coronary Artery Disease (CAD), COPD, Eye Disorder, Fibromyalgia, Hypertension, Myocardial Infarction ([place]), Osteoarthritis (OA), Prostate Disorder, Vascular Disorder Additional Past Medical History / Comment(s): Chronic cough, chronic pancreatitis, past alcohol abuse-pt states occasionally now, bilateral eye glaucoma, neuropathy bilateral feet, poor circulation to legs, varicose veins, RLS, BPH with surgery, colitis, gastritis, Alvarenga's esophagus, shingles in 2013 and states joint pain since, chronic low back pain, DDD. Last Myocardial Infarction Date:: 09/02/16 History of Any Multi-Drug Resistant Organisms: None Reported Past Surgical History: Appendectomy, Heart Catheterization, Joint Replacement, Orthopedic Surgery, Prostate Surgery Additional Past Surgical History / Comment(s): R knee arthroscopy for torn meniscus, knee replacement; R total knee arthroplasty, EGD, colonoscopy, TURP Past Anesthesia/Blood Transfusion Reactions: No Reported Reaction Past Psychological History: Anxiety, Depression Smoking Status: Current every day smoker Past Alcohol Use History: Daily Past Drug Use History: None Reported - Past Family History Father Family Medical History: CVA/TIA, Hypertension Additional Family Medical History / Comment(s): Father at the age of 38yrs from HTN/CVA. He was an alcoholic. Mother Family Medical History: COPD, Diabetes Mellitus Additional Family Medical History / Comment(s): Mother of emphysema at the age of 74 yrs (2003), mom has hx of drinking and smoking Medications and Allergies Home Medications Medication Instructions Recorded Confirmed Type Cyclobenzaprine [Flexeril] 10 mg PO TID PRN 06/28/16 07/01/21 History lisinopriL [Zestril] 20 mg PO DAILY 06/28/16 07/01/21 History amLODIPine [Norvasc] 10 mg PO DAILY 09/26/16 07/01/21 History Nicotine 21Mg/24Hr Patch [Habitrol] 1 patch TRANSDERM DAILY PRN 09/18/17 07/01/21 History Montelukast [Singulair] 10 mg PO DAILY 01/12/18 07/01/21 History oxyCODONE-APAP 10-325MG [Percocet 1 tab PO TID PRN 09/12/18 07/01/21 History 10-325 mg] Albuterol Sulfate [Albuterol 2 puff INHALATION RT-QID PRN 02/08/20 07/01/21 History Sulfate Hfa] Omeprazole 20 mg PO DAILY 02/08/20 07/01/21 History Warfarin [Coumadin] 2.5 mg PO DAILY 02/08/20 07/01/21 History Fluticasone Nasal [place] [Flonase 2 spr EA NOSTRIL DAILY PRN 07/02/20 07/01/21 History Nasal [place]] Escitalopram [Lexapro] 20 mg PO DAILY 07/01/21 07/01/21 History Furosemide [Lasix] 20 mg PO DAILY 07/01/21 07/01/21 History Loratadine [Claritin] 10 mg PO DAILY PRN 07/01/21 07/01/21 History Pramipexole [Mirapex] 0.5 mg PO HS 07/01/21 07/01/21 History Allergies Allergy/AdvReac Type Severity Reaction Status Date / Time pregabalin [From Lyrica] Allergy Swelling Verified 07/01/21 20:56 amoxicillin trihydrate AdvReac Rapid Verified 07/01/21 20:56 [From Augmentin] Heart Rate potassium clavulanate AdvReac FELT LIKE Verified 07/01/21 20:56 [From Augmentin] HE WAS GOING TO PASS OUT FAST HEARTBEAT" Physical Exam Vitals: Vital Signs Temp Pulse Resp BP Pulse Ox 07/02/21 08:26 86 18 142/89 94 L 07/02/21 05:39 98.8 F 86 16 158/91 94 L 07/02/21 01:40 98.8 F 86 16 139/77 95 07/01/21 22:10 86 16 126/78 95 07/01/21 20:14 98.3 F 95 24 99/76 97 Intake and Output 07/01/21 07/02/21 07/02/21 22:59 06:59 14:59 Other: Weight 95.254 kg Results CBC & Chem 7: 07/01/21 20:58 07/01/21 20:58 Labs: Abnormal Lab Results - Last 24 Hours (Table) 07/01/21 07/01/21 Range/Units 20:58 20:58 WBC 11.7 H (3.8-10.6) k/uL Neutrophils # 9.1 H (1.3-7.7) k/uL Sodium 136 L (137-145) mmol/L Carbon Dioxide 21 L (22-30) mmol/L Glucose 122 H (74-99) mg/dL AST 98 H (17-59) U/L Lipase >65308 H (23-300) U/L
[2021-07-02] MEDS: NICOTINE 21MG/24HR PATCH TRANSDERM SCH (13:53)
[2021-07-02] MEDS: DEXTROSE 5%-0.45% NACL 1,000 ML IV SCH ×2 (13:53→21:08)
[2021-07-02] MEDS: guaiFENesin 600 MG TABLET.ER PO SCH ×3 (13:53→21:08)
[2021-07-02] MEDS: DOXYCYCLINE 100 MG CAP PO SCH ×2 (13:53→22:14)
[2021-07-02] MEDS: oxyCODONE-APAP 10-325MG 1 EACH TAB PO PRN (16:01)
--- NOTE | 2021-07-02 20:37 | CONS ---
CONSULTATION DATE OF SERVICE: July 02, 2021. REQUESTING PHYSICIAN: Dr. Albert Chavez. REASON FOR CONSULTATION: Acute pancreatitis. HISTORY OF PRESENT ILLNESS: The patient is a 61-year-old pleasant white male admitted to the hospital with severe epigastric pain since yesterday. He had several episodes of nausea, vomiting, came in to the emergency room and was noted to have elevated lipase to more than 20,000 consistent with acute pancreatitis. The patient had multiple hospitalizations over the last several years for acute recurrent pancreatitis secondary to alcohol use. The patient states that he is trying to quit alcohol, but lately has been having binge drinking. He reports no coffee-grounds emesis. Denies any rectal bleeding or melena. PAST MEDICAL HISTORY: Significant for heavy alcohol abuse, history of liver cirrhosis, history of chronic relapsing pancreatitis, previous history of esophageal variceal bleeding, degenerative joint disease, coronary artery disease, fibromyalgia, prostate disorder. PAST SURGICAL HISTORY: Cardiac catheterization, appendectomy, prostate surgery, right knee surgery, multiple EGDs and colonoscopies in the past, right hip total arthroplasty. MEDICATIONS: Flexeril, Zestril, Norvasc, Singulair, Percocet, albuterol, Coumadin, Lexapro, Lasix, Claritin, Mirapex, omeprazole. ALLERGIES: LYRICA, AUGMENTIN. SOCIAL HISTORY: Heavy smoker and heavy alcohol abuse. FAMILY HISTORY: Father CVA and hypertension. Mother had diabetes mellitus and COPD. REVIEW OF SYSTEMS: CARDIOPULMONARY: He denies any chest pain or shortness of breath. GENITOURINARY: No dysuria or hematuria. MUSCULOSKELETAL: Unremarkable. SKIN unremarkable. ENDOCRINE unremarkable. PSYCHIATRIC unremarkable. NEUROLOGY: Unremarkable. ENT/VISION: Unremarkable. CONSTITUTIONAL: No recent weight loss. No fever, chills, night sweats. PHYSICAL EXAMINATION: He appears comfortable. VITAL SIGNS: Stable. Blood pressure is 126/78, pulse rate 86, temperature 98.8. HEENT: Examination unremarkable. Conjunctivae pink. Sclerae anicteric. Oral cavity no lesions. NECK: No JVD or lymph node enlargement. CHEST was clear to auscultation. HEART: Regular rate and rhythm. ABDOMEN is slightly distended. There was severe tenderness in the epigastric area. Bowel sounds are positive. No organomegaly. EXTREMITIES: No pedal edema. NEURO: He is alert and oriented x3. No focal deficits. LABS: WBC 11.7, hemoglobin 15.3, platelets 266. Basic metabolic panel is within normal limits. AST and ALT are 48 and 49 respectively. Lipase is more than 20,000. IMPRESSION: 1. The patient presented to the hospital with severe epigastric pain started yesterday and history of heavy alcohol abuse with multiple episodes of prior pancreatitis, most likely dealing with chronic relapsing pancreatitis secondary to heavy alcohol abuse. His lipase was more than 20,000. 2. History of heavy alcohol abuse. 3. History of chronic obstructive pulmonary disease. 4. Essential hypertension. 5. History of gastroesophageal reflux disease/Alvarenga's esophagus. RECOMMENDATIONS: 1. Keep him n.p.o. except ice chips. 2. Symptomatic and supportive care. 3. Pain medications. 4. Aggressive IV hydration. 5. Monitor labs closely. 6. I had a lengthy discussion with the patient regarding the importance of abstinence from alcohol. 7. We will follow with you closely. Thank you for this consultation. CRISTA / AGUILAR: [id number] /
[2021-07-02] MEDS: PANTOPRAZOLE 40 MG TABLET PO SCH (21:07)
[2021-07-02] MEDS: PRAMIPEXOLE 0.5 MG TAB PO SCH (22:14)
[2021-07-03] MEDS: HYDROmorphone 1 MG/ML 1 ML SYRINGE IVP PRN ×5 (01:51→21:44)
[2021-07-03] MEDS: IPRATROPIUM-ALBUTEROL 3 ML NEB INHALATION SCH ×4 (07:55→19:54)
[2021-07-03] MEDS: BUDESONIDE 0.5 MG/2 ML NEBU INHALATION SCH ×2 (07:55→19:54)
[2021-07-03] MEDS: oxyCODONE-APAP 10-325MG 1 EACH TAB PO PRN ×2 (08:07→15:11)
[2021-07-03] MEDS: NICOTINE 21MG/24HR PATCH TRANSDERM SCH (09:00)
[2021-07-03] MEDS: PANTOPRAZOLE 40 MG TABLET PO SCH ×2 (09:00→21:44)
[2021-07-03] MEDS: lisinopriL 20 MG TAB PO SCH (09:00)
[2021-07-03] MEDS: amLODIPine 10 MG TAB PO SCH (09:00)
[2021-07-03] MEDS: MONTELUKAST 10 MG TAB PO SCH (09:00)
[2021-07-03] MEDS: guaiFENesin 600 MG TABLET.ER PO SCH ×4 (09:00→21:44)
[2021-07-03] MEDS: DOXYCYCLINE 100 MG CAP PO SCH ×2 (09:00→21:44)
[2021-07-03] MEDS: ESCITALOPRAM 20 MG TAB PO SCH (09:00)
[2021-07-03] MEDS: DEXTROSE 5%-0.45% NACL 1,000 ML IV SCH ×2 (09:01→17:13)
--- NOTE | 2021-07-03 15:21 | P.PN ---
Progress Note - Text Progress Note Date: 07/03/21 History of presenting complaint: This is a [address] Chavez. Chronic stable medical conditions include COPD, fibromyalgia, hypertension, osteoarthritis, chronic pancreatitis from alcoholism, peripheral neuropathy varicose veins, restless leg syndrome, BPH surgery, Alvarenga's esophagus and chronic low back pain from osteoarthritis. has continued to drink about 2-beers a day. Also has smokes less than a pack a day. Patient yesterday started off with upper abdominal pain. Some way to the back. Some nausea and some vomiting. No fever no chills. No change in bowel pattern. Has been eating okay up to yesterday. Found to have acute pancreatitis. Patient also has been smoking some cough. Brings up clear sputum in the morning. No fever no chills. Tired rundown. Admitted with acute severe recurrent pancreatitis, acute COPD exacerbation. Started IV fluids, nebulized bronchitis, IV steroids. Started on ice chips. July 03: Sitting up in bed. Breathing a bit better. Abdominal pain better. Diet advanced to clear liquid. Review of systems: Was done for constitutional, cardiovascular, GI, pulmonary. relevant finding as above Active Medications Acetaminophen (Acetaminophen Tab 325 Mg Tab) 650 mg PO Q6HR PRN PRN Reason: Mild Pain or Fever > 100.5 Al Hydroxide/Mg Hydroxide (Mag Hydrox/Al Hydrox/Simeth 30 Ml Cup) 15 ml PO Q6HR PRN PRN Reason: Indigestion Albuterol Sulfate (Albuterol Hfa Inhaler) 2 puff INHALATION RT-QID PRN PRN Reason: Shortness Of Breath Albuterol/Ipratropium (Ipratropium-Albuterol 3 Ml Neb) 3 ml INHALATION RT-QID [facility] Last Admin: 07/03/21 12:01 Dose: 3 ml Documented by: Alprazolam (Alprazolam 0.25 Mg Tab) 0.25 mg PO Q6HR PRN PRN Reason: Anxiety Amlodipine Besylate (Amlodipine 10 Mg Tab) 10 mg PO DAILY [facility] Last Admin: 07/03/21 09:00 Dose: 10 mg Documented by: Budesonide (Budesonide 0.5 Mg/2 Ml Nebu) 0.5 mg INHALATION RT-BID [facility] Last Admin: 07/03/21 07:55 Dose: 0.5 mg Documented by: Calcium Carbonate/Glycine (Calcium Carbonate 500 Mg Chewable) 1,000 mg PO Q4HR PRN PRN Reason: Dyspepsia Cyclobenzaprine HCl (Cyclobenzaprine 10 Mg Tab) 10 mg PO TID PRN PRN Reason: Muscle Spasm Doxycycline Monohydrate (Doxycycline 100 Mg Cap) 100 mg PO BID [facility] Last Admin: 07/03/21 09:00 Dose: 100 mg Documented by: Escitalopram Oxalate (Escitalopram 20 Mg Tab) 20 mg PO DAILY [facility] Last Admin: 07/03/21 09:00 Dose: 20 mg Documented by: Guaifenesin (Guaifenesin 600 Mg Tablet.Er) 600 mg PO QID [facility] Last Admin: 07/03/21 12:29 Dose: 600 mg Documented by: Hydromorphone HCl (Hydromorphone 1 Mg/Ml 1 Ml Syringe) 1 mg IVP Q4HR PRN PRN Reason: Pain Last Admin: 07/03/21 12:33 Dose: 1 mg Documented by: Dextrose/Sodium Chloride (Dextrose 5%-1/2ns Iv Soln) 1,000 mls @ 100 mls/hr IV .Q10H [facility] Last Admin: 07/03/21 09:01 Dose: 100 mls/hr Documented by: Lactulose (Lactulose 20 Gm/30 Ml Cup) 20 gm PO DAILY PRN PRN Reason: Constipation Lisinopril (Lisinopril 20 Mg Tab) 20 mg PO DAILY [facility] Last Admin: 07/03/21 09:00 Dose: 20 mg Documented by: Magnesium Hydroxide (Magnesium Hydroxide 2,400 Mg/10 Ml Cup) 2,400 mg PO DAILY PRN PRN Reason: Constipation Melatonin (Melatonin 3 Mg Tablet) 3 mg PO HS PRN PRN Reason: Insomnia Montelukast Sodium (Montelukast 10 Mg Tab) 10 mg PO DAILY [facility] Last Admin: 07/03/21 09:00 Dose: 10 mg Documented by: Naloxone HCl (Naloxone 0.4 Mg/Ml 1 Ml Vial) 0.2 mg IV Q2M PRN PRN Reason: Opioid Reversal Nicotine (Nicotine 21mg/24hr Patch) 1 patch TRANSDERM DAILY [facility] Last Admin: 07/03/21 09:00 Dose: Not Given Documented by: Ondansetron HCl (Ondansetron 4 Mg/2 Ml Vial) 4 mg IVP Q8HR PRN PRN Reason: Nausea And Vomiting Oxycodone/Acetaminophen (Oxycodone-Apap 10-325mg 1 Each Tab) 1 each PO TID PRN PRN Reason: Pain Last Admin: 07/03/21 15:11 Dose: 1 each Documented by: Pantoprazole Sodium (Pantoprazole 40 Mg Tablet) 40 mg PO BID [facility] Last Admin: 07/03/21 09:00 Dose: 40 mg Documented by: Pramipexole Dihydrochloride (Pramipexole 0.5 Mg Tab) 0.5 mg PO HS [facility] Last Admin: 07/02/21 22:14 Dose: 0.5 mg Documented by: Social history: Patient lives with his sister Scott Villagomez sometime uses a cane. Smoked for close to 42 years. Smoking about half a pack a day. Drinking alcohol for years. Stopped for a short time. At about 4-5 beers a day. Physical examination: VITAL SIGNS: 98.5, 74, 17, 1 25 x 70, 95% room air GENERAL: Reclining in bed, awake, breathing better EYES: Pupils equal. Conjunctiva normal. HEENT: External appearance of nose and ears normal, oral cavity grossly normal. NECK: JVD not raised; masses not palpable. HEART: First and second heart sounds are normal; minimal edema. LUNGS: Respiratory rate increased, diminished breath sounds. Prolonged expiration, decreased wheezing ABDOMEN: Soft, minimal epigastric tenderness, no guarding or rigidity, liver spleen not palpable, no masses palpable. PSYCH: Alert and oriented x3; mood and affect normal INVESTIGATIONS, reviewed in the clinical context: July 03: Lipase 184 White count 11.7 hemoglobin 15.3 platelets 266 sodium 136 potassium 4.2 BUN 13 creatinine 0.89 AST 98 ALT 49 Lipase greater than 20,000 Coronavirus [PCR]: Not detected EKG tracing personally reviewed by me-normal sinus rhythm, some intraventricular block. Chest x-ray film personally reviewed by me-questionable infiltrate. Hyperinflation X-ray abdomen: Nonspecific bowel gas pattern. Assessment and plan: -Acute severe recurrent pancreatitis in a patient with known chronic pancreatitis from alcoholism: Better drink 2-3 beers a day. Advanced diet to clear liquids -Acute COPD exacerbation in a cigarette smoker,: Improving DuoNeb 4 times a day, Pulmicort 0.5 mg twice a day, Mucinex 600 mg 4 times a day -Acute bronchitis Doxycycline 100 mg twice a day -Chronic nicotine dependence, cigarette smoker Nicotine patch 21 -Chronic fibromyalgia Flexeril 10 mg 3 times a day when necessary -Essential hypertension Amlodipine 10 mg by mouth daily -Primary osteoarthritis, multiple joints bilaterally Pain medications as needed -Alcoholic peripheral neuropathy -restless leg syndrome Mirapex 0.5 mg daily at bedtime -Alvarenga's esophagus Protonix 40 mg twice a day -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 We'll discuss further when patient was stable -Watch for DTs CIWA scale Discussed with patient. Advance diet to clear liquids. Continue bronchitis. Increase activity. Up in a chair.
--- NOTE | 2021-07-03 18:37 | US ---
EXAMINATION TYPE: US abdomen limited DATE OF EXAM: 07/03/2021 COMPARISON: CT & US CLINICAL HISTORY: Acute pancreatitis. Pain EXAM MEASUREMENTS: Liver Length: 22.9 cm Gallbladder Wall: 0.2 cm CBD: 0.9 cm Right Kidney: 12.1 x 5.9 x 6.2 cm Pancreas: Obscured by bowel gas Liver: Enlarge, possible intrahepatic ductal dilatation Gallbladder: Distended, possible small amount of sludge at dependant portion Evidence for sonographic Kelly's sign: No CBD: Dilated Right Kidney: wnl, lower pole gassed out IMPRESSION: No gallbladder wall thickening. Gallbladder is large and could relate to some gallbladder dysfunction . Gallbladder measures 3.5 cm in diameter. No focal liver defect.
[2021-07-03] MEDS: PRAMIPEXOLE 0.5 MG TAB PO SCH (21:44)
[2021-07-04] MEDS: oxyCODONE-APAP 10-325MG 1 EACH TAB PO PRN ×3 (00:34→16:23)
[2021-07-04 06:52] LABS: Basophils # (A) 0.1 k/uL (0-0.2); Basophils % (A) 1 %; Eosinophils # (A) 0.3 k/uL (0-0.7); Eosinophils % (A) 4 %; HCT 41.8 % (39.0-53.0); Lymphocytes # (A) 1.4 k/uL (1.0-4.8); Lymphocytes % (A) 22 %; MCH 32.6 pg (25.0-35.0); MCHC 33.5 g/dL (31.0-37.0); MCV 97.5 fL (80.0-100.0); Mean Platelet Volume 7.3; Monocytes # (A) 0.3 k/uL (0-1.0); Monocytes % (A) 5 %; Neutrophils # (A) 4.3 k/uL (1.3-7.7); Neutrophils % (A) 66 %; Platelet Count 227 k/uL (150-450); RBC 4.29 m/uL (4.30-5.90); RDW 12.8 % (11.5-15.5); WBC 6.5 k/uL (3.8-10.6)
[2021-07-04 07:01] LABS: African American GFR (CKD) >90 (>60 ml/min/1.73 sqM); Anion Gap 7 mmol/L; Blood Urea Nitrogen 9 mg/dL (9-20); Calcium 8.8 mg/dL (8.4-10.2); Carbon Dioxide 23 mmol/L (22-30); Chloride 105 mmol/L (98-107); Glucose 103 mg/dL (74-99); Non-African American GFR(CKD) >90 (>60 ml/min/1.73 sqM); Sodium 135 mmol/L (137-145)
[2021-07-04] MEDS: HYDROmorphone 1 MG/ML 1 ML SYRINGE IVP PRN ×5 (07:23→23:03)
[2021-07-04] MEDS: NICOTINE 21MG/24HR PATCH TRANSDERM SCH (07:24)
[2021-07-04] MEDS: guaiFENesin 600 MG TABLET.ER PO SCH ×4 (07:43→20:00)
[2021-07-04] MEDS: amLODIPine 10 MG TAB PO SCH (07:43)
[2021-07-04] MEDS: ESCITALOPRAM 20 MG TAB PO SCH (07:43)
[2021-07-04] MEDS: DOXYCYCLINE 100 MG CAP PO SCH ×2 (07:43→20:00)
[2021-07-04] MEDS: MONTELUKAST 10 MG TAB PO SCH (07:43)
[2021-07-04] MEDS: PANTOPRAZOLE 40 MG TABLET PO SCH ×2 (07:43→20:00)
[2021-07-04] MEDS: lisinopriL 20 MG TAB PO SCH (07:43)
[2021-07-04] MEDS: BUDESONIDE 0.5 MG/2 ML NEBU INHALATION SCH ×2 (07:58→20:23)
[2021-07-04] MEDS: IPRATROPIUM-ALBUTEROL 3 ML NEB INHALATION SCH ×4 (07:58→20:23)
--- NOTE | 2021-07-04 11:36 | P.PN ---
Progress Note - Text Progress Note Date: 07/04/21 History of presenting complaint: This is a [address] Chavez. Chronic stable medical conditions include COPD, fibromyalgia, hypertension, osteoarthritis, chronic pancreatitis from alcoholism, peripheral neuropathy varicose veins, restless leg syndrome, BPH surgery, Alvarenga's esophagus and chronic low back pain from osteoarthritis. has continued to drink about 2-beers a day. Also has smokes less than a pack a day. Patient yesterday started off with upper abdominal pain. Some way to the back. Some nausea and some vomiting. No fever no chills. No change in bowel pattern. Has been eating okay up to yesterday. Found to have acute pancreatitis. Patient also has been smoking some cough. Brings up clear sputum in the morning. No fever no chills. Tired rundown. Admitted with acute severe recurrent pancreatitis, acute COPD exacerbation. Started IV fluids, nebulized bronchitis, IV steroids. Started on ice chips. July 03: Sitting up in bed. Breathing a bit better. Abdominal pain better. Diet advanced to clear liquid. July 04: Breathing improving. Eating better. Abdominal pain better. Up in bed. Review of systems: Was done for constitutional, cardiovascular, GI, pulmonary. relevant finding as above Active Medications Acetaminophen (Acetaminophen Tab 325 Mg Tab) 650 mg PO Q6HR PRN PRN Reason: Mild Pain or Fever > 100.5 Al Hydroxide/Mg Hydroxide (Mag Hydrox/Al Hydrox/Simeth 30 Ml Cup) 15 ml PO Q6HR PRN PRN Reason: Indigestion Albuterol Sulfate (Albuterol Hfa Inhaler) 2 puff INHALATION RT-QID PRN PRN Reason: Shortness Of Breath Albuterol/Ipratropium (Ipratropium-Albuterol 3 Ml Neb) 3 ml INHALATION RT-QID [facility] Last Admin: 07/04/21 07:58 Dose: 3 ml Documented by: Alprazolam (Alprazolam 0.25 Mg Tab) 0.25 mg PO Q6HR PRN PRN Reason: Anxiety Amlodipine Besylate (Amlodipine 10 Mg Tab) 10 mg PO DAILY [facility] Last Admin: 07/04/21 07:43 Dose: 10 mg Documented by: Budesonide (Budesonide 0.5 Mg/2 Ml Nebu) 0.5 mg INHALATION RT-BID [facility] Last Admin: 07/04/21 07:58 Dose: 0.5 mg Documented by: Calcium Carbonate/Glycine (Calcium Carbonate 500 Mg Chewable) 1,000 mg PO Q4HR PRN PRN Reason: Dyspepsia Cyclobenzaprine HCl (Cyclobenzaprine 10 Mg Tab) 10 mg PO TID PRN PRN Reason: Muscle Spasm Doxycycline Monohydrate (Doxycycline 100 Mg Cap) 100 mg PO BID [facility] Last Admin: 07/04/21 07:43 Dose: 100 mg Documented by: Escitalopram Oxalate (Escitalopram 20 Mg Tab) 20 mg PO DAILY [facility] Last Admin: 07/04/21 07:43 Dose: 20 mg Documented by: Guaifenesin (Guaifenesin 600 Mg Tablet.Er) 600 mg PO QID [facility] Last Admin: 07/04/21 07:43 Dose: 600 mg Documented by: Hydromorphone HCl (Hydromorphone 1 Mg/Ml 1 Ml Syringe) 1 mg IVP Q4HR PRN PRN Reason: Pain Last Admin: 07/04/21 11:10 Dose: 1 mg Documented by: Dextrose/Sodium Chloride (Dextrose 5%-1/2ns Iv Soln) 1,000 mls @ 50 mls/hr IV .Q20H [facility] Last Admin: 07/03/21 17:13 Dose: 50 mls/hr Documented by: Lactulose (Lactulose 20 Gm/30 Ml Cup) 20 gm PO DAILY PRN PRN Reason: Constipation Lisinopril (Lisinopril 20 Mg Tab) 20 mg PO DAILY [facility] Last Admin: 07/04/21 07:43 Dose: 20 mg Documented by: Magnesium Hydroxide (Magnesium Hydroxide 2,400 Mg/10 Ml Cup) 2,400 mg PO DAILY PRN PRN Reason: Constipation Melatonin (Melatonin 3 Mg Tablet) 3 mg PO HS PRN PRN Reason: Insomnia Montelukast Sodium (Montelukast 10 Mg Tab) 10 mg PO DAILY [facility] Last Admin: 07/04/21 07:43 Dose: 10 mg Documented by: Naloxone HCl (Naloxone 0.4 Mg/Ml 1 Ml Vial) 0.2 mg IV Q2M PRN PRN Reason: Opioid Reversal Nicotine (Nicotine 21mg/24hr Patch) 1 patch TRANSDERM DAILY [facility] Last Admin: 07/04/21 07:24 Dose: Not Given Documented by: Ondansetron HCl (Ondansetron 4 Mg/2 Ml Vial) 4 mg IVP Q8HR PRN PRN Reason: Nausea And Vomiting Oxycodone/Acetaminophen (Oxycodone-Apap 10-325mg 1 Each Tab) 1 each PO TID PRN PRN Reason: Pain Last Admin: 07/04/21 08:53 Dose: 1 each Documented by: Pantoprazole Sodium (Pantoprazole 40 Mg Tablet) 40 mg PO BID [facility] Last Admin: 07/04/21 07:43 Dose: 40 mg Documented by: Pramipexole Dihydrochloride (Pramipexole 0.5 Mg Tab) 0.5 mg PO HS [facility] Last Admin: 07/03/21 21:44 Dose: 0.5 mg Documented by: Social history: Patient lives with his sister Scott Villagomez sometime uses a cane. Smoked for close to 42 years. Smoking about half a pack a day. Drinking alcohol for years. Stopped for a short time. At about 4-5 beers a day. Physical examination: VITAL SIGNS: 97.4, 87, 18, 150/76, 95% room air GENERAL: Reclining in bed, awake, EYES: Pupils equal. Conjunctiva normal. HEENT: External appearance of nose and ears normal, oral cavity grossly normal. NECK: JVD not raised; masses not palpable. HEART: First and second heart sounds are normal; minimal edema. LUNGS: Respiratory rate increased, diminished breath sounds. Prolonged expiration, ABDOMEN: Soft, minimal epigastric tenderness, no guarding or rigidity, liver spleen not palpable, no masses palpable. PSYCH: Alert and oriented x3; mood and affect normal INVESTIGATIONS, reviewed in the clinical context: July 04: White count 6.5 hemoglobin 14 potassium 4 creatinine 0.82 sodium 135 July 03: Lipase 184 White count 11.7 hemoglobin 15.3 platelets 266 sodium 136 potassium 4.2 BUN 13 creatinine 0.89 AST 98 ALT 49 Lipase greater than 20,000 Coronavirus [PCR]: Not detected EKG tracing personally reviewed by me-normal sinus rhythm, some intraventricular block. Chest x-ray film personally reviewed by me-questionable infiltrate. Hyp erinflation X-ray abdomen: Nonspecific bowel gas pattern. Assessment and plan: -Acute severe recurrent pancreatitis in a patient with known chronic pancreatitis from alcoholism: Better drink 2-3 beers a day. Tolerating diet. 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 We'll discuss further when patient was stable -Watch for DTs CIWA scale Improving. Increase activity. Discussed with patient. Home tomorrow. DC IV fluids
[2021-07-04] MEDS: PRAMIPEXOLE 0.5 MG TAB PO SCH (20:00)
[2021-07-05] MEDS: oxyCODONE-APAP 10-325MG 1 EACH TAB PO PRN ×2 (01:03→08:44)
[2021-07-05] MEDS: HYDROmorphone 1 MG/ML 1 ML SYRINGE IVP PRN ×3 (03:14→11:17)
[2021-07-05] MEDS: guaiFENesin 600 MG TABLET.ER PO SCH ×2 (07:46→13:18)
[2021-07-05] MEDS: amLODIPine 10 MG TAB PO SCH (07:46)
[2021-07-05] MEDS: PANTOPRAZOLE 40 MG TABLET PO SCH (07:46)
[2021-07-05] MEDS: MONTELUKAST 10 MG TAB PO SCH (07:46)
[2021-07-05] MEDS: DOXYCYCLINE 100 MG CAP PO SCH (07:47)
[2021-07-05] MEDS: lisinopriL 20 MG TAB PO SCH (07:47)
[2021-07-05] MEDS: NICOTINE 21MG/24HR PATCH TRANSDERM SCH (07:48)
[2021-07-05] MEDS: ESCITALOPRAM 20 MG TAB PO SCH (07:53)
[2021-07-05 07:59] VITALS: RESP 18
[2021-07-05] MEDS: IPRATROPIUM-ALBUTEROL 3 ML NEB INHALATION SCH ×2 (08:08→11:37)
[2021-07-05] MEDS: BUDESONIDE 0.5 MG/2 ML NEBU INHALATION SCH (08:08)
[2021-07-05 14:28] VITALS: BP 144/78; PULSE 75; TEMP 97.2
--- NOTE | 2021-07-05 15:14 | P.DS ---
Providers Date of admission: 07/01/21 22:52 Expected date of discharge: 07/05/21 Attending physician: Jamal Tamayo Consults: 07/01/21 22:52 Consult Physician Routine Consulting Provider: Laverne Avila Consult Reason/Comments: pancreatitis Do you want consulting provider notified?: Yes Primary care physician: Albert Chavez [facility] Course: History of presenting complaint: This is a [address] Chavez. Chronic stable medical conditions include COPD, fibromyalgia, hypertension, osteoarthritis, chronic pancreatitis from alcoholism, peripheral neuropathy varicose veins, restless leg syndrome, BPH surgery, Alvarenga's esophagus and chronic low back pain from osteoarthritis. has continued to drink about 2-beers a day. Also has smokes less than a pack a day. Patient yesterday started off with upper abdominal pain. Some way to the back. Some nausea and some vomiting. No fever no chills. No change in bowel pattern. Has been eating okay up to yesterday. Found to have acute pancreatitis. Patient also has been smoking some cough. Brings up clear sputum in the morning. No fever no chills. Tired rundown. Admitted with acute severe recurrent pancreatitis, acute COPD exacerbation. Started IV fluids, nebulized bronchitis, IV steroids. Started on ice chips. Diet was gradually advanced. Abdominal pain resolved. COPD symptoms improved. July 05: Doing much better. Tolerating the soft bland diet. Breathing better. Patient counseled again about smoking and alcohol. We'll add Symbicort for discharge. Nicotine patch. Discussion and discharge planning more than 35 minutes Social history: Patient lives with his sister Scott May sometime uses a cane. Smoked for close to 42 years. Smoking about half a pack a day. Drinking alcohol for years. Stopped for a short time. At about 4-5 beers a day. Physical examination: VITAL SIGNS: 97.2, 75, 18, 140/78, 97% room air GENERAL: Reclining in bed, awake, comfortable EYES: Pupils equal. Conjunctiva normal. HEENT: External appearance of nose and ears normal, oral cavity grossly normal. NECK: JVD not raised; masses not palpable. HEART: First and second heart sounds are normal; minimal edema. LUNGS: Respiratory rate normal, diminished breath sounds. ABDOMEN: Soft, no tenderness, no guarding or rigidity, liver spleen not palpable, no masses palpable. PSYCH: Alert and oriented x3; mood and affect normal INVESTIGATIONS, reviewed in the clinical context: July 04: White count 6.5 hemoglobin 14 potassium 4 creatinine 0.82 sodium 135 July 03: Lipase 184 White count 11.7 hemoglobin 15.3 platelets 266 sodium 136 potassium 4.2 BUN 13 creatinine 0.89 AST 98 ALT 49 Lipase greater than 20,000 Coronavirus [PCR]: Not detected EKG tracing personally reviewed by me-normal sinus rhythm, some intraventricular block. Chest x-ray film personally reviewed by me-questionable infiltrate. Hyperinflation X-ray abdomen: Nonspecific bowel gas pattern. Assessment and plan: -Acute severe recurrent pancreatitis in a patient with known chronic pancreatitis from alcoholism: Improved drink 2-3 beers a day. Tolerating diet. -Acute COPD exacerbation in a cigarette smoker,: Better DuoNeb 4 times a day, Pulmicort 0.5 mg twice a day, Mucinex 600 mg 4 times a day Discharged on Symbicort 80/4.5 one puff twice a day. 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 Patient counseled Disposition: Home Patient Condition at Discharge: Fair Plan - Discharge Summary Discharge Rx Participant: Yes New Discharge Prescriptions: New Nicotine 21Mg/24Hr Patch [Habitrol] 1 patch TRANSDERM DAILY #14 patch Doxycycline [Vibramycin] 100 mg PO BID #10 cap Budesonide/Formoterol Fumarate [Symbicort 80-4.5 Mcg Inhaler] 1 puff INHALATION BID #10.2 gm Continue lisinopriL [Zestril] 20 mg PO DAILY Cyclobenzaprine [Flexeril] 10 mg PO TID PRN PRN Reason: Muscle Spasm amLODIPine [Norvasc] 10 mg PO DAILY Montelukast [Singulair] 10 mg PO DAILY oxyCODONE-APAP 10-325MG [Percocet 10-325 mg] 1 tab PO TID PRN PRN Reason: Pain Omeprazole 20 mg PO DAILY Warfarin [Coumadin] 2.5 mg PO DAILY Albuterol Sulfate [Albuterol Sulfate Hfa] 2 puff INHALATION RT-QID PRN PRN Reason: Shortness Of Breath Fluticasone Nasal [place] [Flonase Nasal [place]] 2 spr EA NOSTRIL DAILY PRN PRN Reason: Allergy Symptoms Furosemide [Lasix] 20 mg PO DAILY Pramipexole [Mirapex] 0.5 mg PO HS Escitalopram [Lexapro] 20 mg PO DAILY Discontinued Nicotine 21Mg/24Hr Patch [Habitrol] 1 patch TRANSDERM DAILY PRN PRN Reason: SMOKING CESSATION Loratadine [Claritin] 10 mg PO DAILY PRN PRN Reason: Allergy Symptoms Discharge Medication List Cyclobenzaprine [Flexeril] 10 mg PO TID PRN 06/28/16 [History] lisinopriL [Zestril] 20 mg PO DAILY 06/28/16 [History] amLODIPine [Norvasc] 10 mg PO DAILY 09/26/16 [History] Montelukast [Singulair] 10 mg PO DAILY 01/12/18 [History] oxyCODONE-APAP 10-325MG [Percocet 10-325 mg] 1 tab PO TID PRN 09/12/18 [History] Albuterol Sulfate [Albuterol Sulfate Hfa] 2 puff INHALATION RT-QID PRN 02/08/20 [History] Omeprazole 20 mg PO DAILY 02/08/20 [History] Warfarin [Coumadin] 2.5 mg PO DAILY 02/08/20 [History] Fluticasone Nasal [place] [Flonase Nasal [place]] 2 spr EA NOSTRIL DAILY PRN 07/02/20 [History] Escitalopram [Lexapro] 20 mg PO DAILY 07/01/21 [History] Furosemide [Lasix] 20 mg PO DAILY 07/01/21 [History] Pramipexole [Mirapex] 0.5 mg PO HS 07/01/21 [History] Budesonide/Formoterol Fumarate [Symbicort 80-4.5 Mcg Inhaler] 1 puff INHALATION BID #10.2 gm 07/05/21 [Rx] Doxycycline [Vibramycin] 100 mg PO BID #10 cap 07/05/21 [Rx] Nicotine 21Mg/24Hr Patch [Habitrol] 1 patch TRANSDERM DAILY #14 patch 07/05/21 [Rx] Follow up Appointment(s)/Referral(s): Albert Chavez MD [Primary Care Provider] - 07/07/21 3:00 pm Patient Instructions/Handouts: How to Stop Smoking (DC), Pancreatitis (DC), COPD (Chronic Obstructive Pulmonary Disease) (DC)
== END 2021-07-05 15:27 | disposition home or self-care (01) | DRG 439 ==
LOC: EC 20:02 → 4SSUR 22:52
PROVIDERS: ADMIT Hospitalist; ATTEND Hospitalist
DX: K85.20 Alcohol induced acute pancreatitis without necrosis or infection (principal); J44.1 Chronic obstructive pulmonary disease with (acute) exacerbation; K86.0 Alcohol-induced chronic pancreatitis; F10.20 Alcohol dependence, uncomplicated; F17.210 Nicotine dependence, cigarettes, uncomplicated; F32.A Depression, unspecified; F41.9 Anxiety disorder, unspecified; G25.81 Restless legs syndrome; G62.1 Alcoholic polyneuropathy; G89.29 Other chronic pain; I10 Essential (primary) hypertension; I25.10 Atherosclerotic heart disease of native coronary artery without angina pectoris; I25.2 Old myocardial infarction; J20.9 Acute bronchitis, unspecified; I83.90 Asymptomatic varicose veins of unspecified lower extremity; K22.70 Barrett's esophagus without dysplasia; K74.60 Unspecified cirrhosis of liver; M19.91 Primary osteoarthritis, unspecified site; Z20.822 Contact with and (suspected) exposure to COVID-19; M79.7 Fibromyalgia; N40.0 Benign prostatic hyperplasia without lower urinary tract symptoms; Z96.651 Presence of right artificial knee joint; Z79.01 Long term (current) use of anticoagulants; Z79.899 Other long term (current) drug therapy; Z82.3 Family history of stroke; Z82.49 Family history of ischemic heart disease and other diseases of the circulatory system; Z82.5 Family history of asthma and other chronic lower respiratory diseases; Z83.3 Family history of diabetes mellitus
CPT/HCPCS: 36415; 71046; 74022; 76705; 80048; 80053; 83690; 85025; 87635; 93005; 94640; 94760; 96361; 96374; 99285

== ENCOUNTER 2021-11-24 14:20 | Inpatient (IN) | payer OTHER ==
--- NOTE | 2021-11-24 15:10 | ED ---
SOB HPI - General Chief Complaint: Shortness of Breath Stated Complaint: Difficulty Breathing, Legs Swelling Time Seen by Provider: 11/24/21 15:07 Source: patient Mode of arrival: wheelchair Limitations: physical limitation - History of Present Illness Initial Comments: Torsten Sarmiento is a pleasant 61-year-old male with history of hypertension, hyperlipi demia, MS in the past, no formal diagnosis of CHF O he is on Lasix. Patient presents to ER today for evaluation of shortness of breath. Patient states he's been feeling short of breath all week but it has been progressively worsening, today he states he ambulated from his room to the bathroom and couldn't catch his breath. Patient states he's been compliant with all his medications including his Coumadin for blood clots in A. fib, and A. fib medications. Patient does note that his abdomen seems more distended than usual and that his bilateral lower extremities are edematous. - Related Data Home Medications Medication Instructions Recorded Confirmed lisinopriL [Zestril] 20 mg PO DAILY@1200 06/28/16 11/24/21 amLODIPine [Norvasc] 10 mg PO DAILY@1200 09/26/16 11/24/21 Montelukast [Singulair] 10 mg PO DAILY@1200 01/12/18 11/24/21 Omeprazole 20 mg PO DAILY@1200 02/08/20 11/24/21 Warfarin [Coumadin] 2.5 mg PO DAILY@1200 02/08/20 11/24/21 Fluticasone Nasal [place] [Flonase 2 spr EA NOSTRIL DAILY PRN 07/02/20 11/24/21 Nasal [place]] Furosemide [Lasix] 20 mg PO DAILY@1200 07/01/21 11/24/21 Budesonide/Formoterol Fumarate 1 puff INHALATION RT-BID 11/08/21 11/24/21 [Symbicort 80-4.5 Mcg Inhaler] Latanoprost Ophth [Xalatan 0.005%] 1 drops BOTH EYES 11/08/21 11/24/21 Tamsulosin [Flomax] 0.4 mg PO DAILY@1200 11/08/21 11/24/21 rOPINIRole HCL [Requip] 4 mg PO HS 11/08/21 11/24/21 Cyclobenzaprine [Flexeril] 10 mg PO TID 11/24/21 11/24/21 Loratadine [Claritin] 10 mg PO DAILY@1200 11/24/21 11/24/21 oxyCODONE-APAP 10-325MG [Percocet 1 tab PO Q8HR PRN 11/24/21 11/24/21 10-325 mg] Allergies Allergy/AdvReac Type Severity Reaction Status Date / Time pregabalin [From Lyrica] Allergy Swelling Verified 11/24/21 15:23 amoxicillin trihydrate AdvReac Rapid Verified 11/24/21 15:23 [From Augmentin] Heart Rate potassium clavulanate AdvReac FELT LIKE Verified 11/24/21 15:23 [From Augmentin] HE WAS GOING TO PASS OUT FAST HEARTBEAT" Review of Systems ROS Statement: Those systems with pertinent positive or pertinent negative responses have been documented in the HPI. ROS Other: All systems not noted in ROS Statement are negative. Past Medical History Past Medical History: Coronary Artery Disease (CAD), COPD, Eye Disorder, Fibromyalgia, Hypertension, Myocardial Infarction (MS), Osteoarthritis (OA), Prostate Disorder, Vascular Disorder Additional Past Medical History / Comment(s): Patient states did not have MS was a valve issue. Chronic cough, chronic pancreatitis, past alcohol abuse-pt states occasionally now, bilateral eye glaucoma, neuropathy bilateral feet, poor circulation to legs, varicose veins, RLS, BPH with surgery, colitis, gastritis, Alvarenga's esophagus, shingles in 2012 and states joint pain since, chronic low back pain, DDD. Last Myocardial Infarction Date:: 09/02/16 History of Any Multi-Drug Resistant Organisms: None Reported Past Surgical History: Appendectomy, Heart Catheterization, Joint Replacement, Orthopedic Surgery, Prostate Surgery Additional Past Surgical History / Comment(s): Right knee arthroscopy for torn meniscus, right knee replacement, EGD, colonoscopy, TURP. Past Anesthesia/Blood Transfusion Reactions: No Reported Reaction Past Psychological History: Anxiety, Depression Smoking Status: Current some day smoker Past Alcohol Use History: Occasional Past Drug Use History: Cocaine - Past Family History Father Family Medical History: CVA/TIA, Hypertension Additional Family Medical History / Comment(s): Father at the age of 38yrs from HTN/CVA. He was an alcoholic. Mother Family Medical History: COPD, Diabetes Mellitus Additional Family Medical History / Comment(s): Mother of emphysema at the age of 74 yrs (2003), mom has hx of drinking and smoking. General Exam - General Exam Comments Initial Comments: Physical Exam GENERAL: Patient is well-developed and well-nourished. Patient is nontoxic and well-hydrated and is in no distress. HENT: Normocephalic, Atraumatic. EYES: PERRL, EOMI PULMONARY: Crackles at bilateral bases CARDIOVASCULAR: Irregular, tachycardic 100-120 on exam ABDOMEN: Distended, nontender SKIN: Bruising on bilateral extremities and abdomen : Deferred NEUROLOGIC: Patient is alert and oriented x3. Moving all extremities spontaneously MUSCULOSKELETAL: 2+ pitting edema bilateral lower extremities PSYCHIATRIC: Normal psychiatric evaluation. Limitations: physical limitation Course Vital Signs 11/24/21 11/24/21 11/24/21 14:44 15:39 18:41 Temperature 98.1 F Pulse Rate 122 H 111 H 100 Respiratory 24 22 20 Rate Blood Pressure 150/97 143/93 O2 Sat by Pulse 96 96 98 Oximetry Medical Decision Making - Medical Decision Making Patient was seen and evaluated, history and physical exam are consistent with congestive heart failure, labs and imaging were ordered. BNP is mildly elevated troponin is not elevated patient was in A. fib with rates between 111 120, oral metoprolol was given. Patient care was discussed with Dr. vallejo agrees with plan for admission for CHF exacerbation and evaluation by cardiology. - Lab Data Result diagrams: 11/24/21 15:38 11/24/21 15:38 Lab Results 11/24/21 11/24/21 11/24/21 Range/Units 15:38 15:38 15:38 WBC 8.0 (3.8-10.6) k/uL RBC 4.01 L (4.30-5.90) m/uL Hgb 12.7 L (13.0-17.5) gm/dL Hct 39.0 (39.0-53.0) % MCV 97.4 (80.0-100.0) fL MCH 31.6 (25.0-35.0) pg MCHC 32.4 (31.0-37.0) g/dL RDW 13.9 (11.5-15.5) % Plt Count 243 (150-450) k/uL MPV 7.2 Neutrophils % 75 % Lymphocytes % 16 % Monocytes % 5 % Eosinophils % 1 % Basophils % 1 % Neutrophils # 6.0 (1.3-7.7) k/uL Lymphocytes # 1.3 (1.0-4.8) k/uL Monocytes # 0.4 (0-1.0) k/uL Eosinophils # 0.1 (0-0.7) k/uL Basophils # 0.1 (0-0.2) k/uL PT 11.7 (9.0-12.0) sec INR 1.1 (<1.2) APTT 25.3 (22.0-30.0) sec Sodium 137 (137-145) mmol/L Potassium 4.1 (3.5-5.1) mmol/L Chloride 104 (98-107) mmol/L Carbon Dioxide 25 (22-30) mmol/L Anion Gap 8 mmol/L BUN 17 (9-20) mg/dL Creatinine 0.82 (0.66-1.25) mg/dL Est GFR (CKD-EPI)AfAm >90 (>60 ml/min/1.73 sqM) Est GFR (CKD-EPI)NonAf >90 (>60 ml/min/1.73 sqM) Glucose 120 H (74-99) mg/dL Plasma Lactic Acid Carlos Manuel (0.7-2.0) mmol/L Calcium 9.0 (8.4-10.2) mg/dL Magnesium 1.7 (1.6-2.3) mg/dL Total Bilirubin 0.6 (0.2-1.3) mg/dL AST 59 (17-59) U/L ALT 66 H (4-49) U/L Alkaline Phosphatase 87 (38-126) U/L Troponin I (0.000-0.034) ng/mL NT-Pro-B Natriuret Pep pg/mL Total Protein 7.0 (6.3-8.2) g/dL Albumin 3.9 (3.5-5.0) g/dL 11/24/21 11/24/21 11/24/21 Range/Units 15:38 15:38 15:38 WBC (3.8-10.6) k/uL RBC (4.30-5.90) m/uL Hgb (13.0-17.5) gm/dL Hct (39.0-53.0) % MCV (80.0-100.0) fL MCH (25.0-35.0) pg MCHC (31.0-37.0) g/dL RDW (11.5-15.5) % Plt Count (150-450) k/uL MPV Neutrophils % % Lymphocytes % % Monocytes % % Eosinophils % % Basophils % % Neutrophils # (1.3-7.7) k/uL Lymphocytes # (1.0-4.8) k/uL Monocytes # (0-1.0) k/uL Eosinophils # (0-0.7) k/uL Basophils # (0-0.2) k/uL PT (9.0-12.0) sec INR (<1.2) APTT (22.0-30.0) sec Sodium (137-145) mmol/L Potassium (3.5-5.1) mmol/L Chloride (98-107) mmol/L Carbon Dioxide (22-30) mmol/L Anion Gap mmol/L BUN (9-20) mg/dL Creatinine (0.66-1.25) mg/dL Est GFR (CKD-EPI)AfAm (>60 ml/min/1.73 sqM) Est GFR (CKD-EPI)NonAf (>60 ml/min/1.73 sqM) Glucose (74-99) mg/dL Plasma Lactic Acid Carlos Manuel 1.2 (0.7-2.0) mmol/L Calcium (8.4-10.2) mg/dL Magnesium (1.6-2.3) mg/dL Total Bilirubin (0.2-1.3) mg/dL AST (17-59) U/L ALT (4-49) U/L Alkaline Phosphatase (38-126) U/L Troponin I 0.019 (0.000-0.034) ng/mL NT-Pro-B Natriuret Pep 781 pg/mL Total Protein (6.3-8.2) g/dL Albumin (3.5-5.0) g/dL - EKG Data -: EKG Interpreted by De EKG Comments: EKG was obtained due to complaint of shortness breath and tachycardia, EKG was obtained at 1452 rate is 119 rhythm is a narrow complex irregularly irregular tachycardia consistent with nature fibrillation with rapid ventricular response. No acute ST elevations mild ST depressions are noted in anterior lateral leads. No evidence of acute infarction. Disposition Clinical Impression: Congestive heart failure, Atrial fibrillation with RVR Disposition: ADMITTED IP TO THIS HOSP Condition: Stable Is patient prescribed a controlled substance at d/c from ED?: No
[2021-11-24 15:50] LABS: Basophils # (A) 0.1 k/uL (0-0.2); Basophils % (A) 1 %; Eosinophils # (A) 0.1 k/uL (0-0.7); Eosinophils % (A) 1 %; HGB 12.7 gm/dL (13.0-17.5); Lymphocytes # (A) 1.3 k/uL (1.0-4.8); Lymphocytes % (A) 16 %; MCH 31.6 pg (25.0-35.0); MCHC 32.4 g/dL (31.0-37.0); MCV 97.4 fL (80.0-100.0); Mean Platelet Volume 7.2; Monocytes # (A) 0.4 k/uL (0-1.0); Monocytes % (A) 5 %; Neutrophils % (A) 75 %; Platelet Count 243 k/uL (150-450); RBC 4.01 m/uL (4.30-5.90); RDW 13.9 % (11.5-15.5)
--- NOTE | 2021-11-24 15:51 | XR ---
EXAMINATION TYPE: XR chest 2V DATE OF EXAM: 11/24/2021 COMPARISON: 07/02/2021 INDICATION: Difficulty breathing TECHNIQUE: Frontal and lateral views of the chest are obtained. FINDINGS: The heart size is normal. The pulmonary vasculature is prominent. Mild diffuse increased bibasilar infiltrates are present. IMPRESSION: 1. Bibasilar infiltrates. Correlate for atelectasis and pneumonia. Atypical pulmonary edema could be considered. Follow-up can be performed as clinically indicated.
[2021-11-24 16:02] LABS: ALT 66 U/L (4-49); AST 59 U/L (17-59); African American GFR (CKD) >90 (>60 ml/min/1.73 sqM); Albumin 3.9 g/dL (3.5-5.0); Alkaline Phosphatase 87 U/L (38-126); Anion Gap 8 mmol/L; Blood Urea Nitrogen 17 mg/dL (9-20); Carbon Dioxide 25 mmol/L (22-30); Chloride 104 mmol/L (98-107); Glucose 120 mg/dL (74-99); Magnesium 1.7 mg/dL (1.6-2.3); Non-African American GFR(CKD) >90 (>60 ml/min/1.73 sqM); Potassium 4.1 mmol/L (3.5-5.1); Sodium 137 mmol/L (137-145); Total Bilirubin 0.6 mg/dL (0.2-1.3)
[2021-11-24 16:06] LABS: INR 1.1 (<1.2); Partial Thromboplastin Time 25.3 sec (22.0-30.0); Prothrombin Time 11.7 sec (9.0-12.0)
[2021-11-24] MEDS ORDERED: FUROSEMIDE 10 MG/ML 4 ML VIAL IV STA (16:52)
[2021-11-24] MEDS ORDERED: METOPROLOL SUCCINATE (ER) 25 MG TAB.ER.24H PO STA (16:52)
[2021-11-24] MEDS: CYCLOBENZAPRINE 10 MG TAB PO SCH ×2 (18:36→21:59)
[2021-11-24] MEDS: oxyCODONE-APAP 10-325MG 1 EACH TAB PO PRN (18:36)
[2021-11-24] MEDS: FUROSEMIDE 10 MG/ML 4 ML VIAL IV SCH (18:43)
[2021-11-24] MEDS ORDERED: rOPINIRole HCL 4 MG TABLET PO STA (20:31)
[2021-11-24] MEDS: METOPROLOL TARTRATE 25 MG TAB PO SCH (21:59)
[2021-11-25] MEDS: oxyCODONE-APAP 10-325MG 1 EACH TAB PO PRN ×3 (03:05→20:11)
[2021-11-25] MEDS: FUROSEMIDE 10 MG/ML 4 ML VIAL IV SCH ×3 (06:20→23:34)
[2021-11-25] MEDS ORDERED: oxyCODONE-APAP 10-325MG 1 EACH TAB PO PRN (08:42)
[2021-11-25] MEDS ORDERED: FLUTICASONE 50MCG/SPRAY NASAL 16GM EA NOSTRIL PRN (08:42)
[2021-11-25] MEDS: CYCLOBENZAPRINE 10 MG TAB PO SCH ×3 (08:57→20:10)
[2021-11-25] MEDS: METOPROLOL TARTRATE 25 MG TAB PO SCH (08:57)
[2021-11-25] MEDS ORDERED: SYMBICORT 80-4.5 MCG INHALER INHALATION SCH (09:00)
[2021-11-25] MEDS ORDERED: CYCLOBENZAPRINE 10 MG TAB PO SCH (09:00)
[2021-11-25 09:26] LABS: Basophils % (A) 1 %; Eosinophils # (A) 0.1 k/uL (0-0.7); Eosinophils % (A) 2 %; HCT 40.2 % (39.0-53.0); HGB 12.8 gm/dL (13.0-17.5); Lymphocytes # (A) 1.4 k/uL (1.0-4.8); Lymphocytes % (A) 21 %; MCHC 31.8 g/dL (31.0-37.0); MCV 97.4 fL (80.0-100.0); Mean Platelet Volume 6.8; Monocytes # (A) 0.4 k/uL (0-1.0); Monocytes % (A) 6 %; Neutrophils # (A) 4.5 k/uL (1.3-7.7); Neutrophils % (A) 68 %; Platelet Count 288 k/uL (150-450); RBC 4.13 m/uL (4.30-5.90); RDW 14.5 % (11.5-15.5); WBC 6.6 k/uL (3.8-10.6)
[2021-11-25 09:35] LABS: African American GFR (CKD) >90 (>60 ml/min/1.73 sqM); Anion Gap 9 mmol/L; Blood Urea Nitrogen 18 mg/dL (9-20); Calcium 9.1 mg/dL (8.4-10.2); Carbon Dioxide 27 mmol/L (22-30); Chloride 101 mmol/L (98-107); Glucose 133 mg/dL (74-99); Non-African American GFR(CKD) 88 (>60 ml/min/1.73 sqM); Potassium 3.9 mmol/L (3.5-5.1); Sodium 137 mmol/L (137-145)
[2021-11-25 09:37] LABS: Prothrombin Time 11.3 sec (9.0-12.0)
[2021-11-25] MEDS ORDERED: METOPROLOL TARTRATE 25 MG TAB PO STA (10:51)
[2021-11-25] MEDS: MONTELUKAST 10 MG TAB PO SCH (11:25)
[2021-11-25] MEDS: lisinopriL 20 MG TAB PO SCH (11:25)
[2021-11-25] MEDS: LORATADINE 10 MG TAB PO SCH (11:25)
[2021-11-25] MEDS: APIXABAN 5 MG TAB PO SCH ×2 (11:25→20:10)
[2021-11-25] MEDS: TAMSULOSIN 0.4 MG CAP.ER.24H PO SCH (11:30)
[2021-11-25] MEDS: PANTOPRAZOLE 40 MG TABLET PO SCH (11:31)
[2021-11-25] MEDS ORDERED: amLODIPine 10 MG TAB PO SCH (12:00)
--- NOTE | 2021-11-25 12:33 | ECHOF ---
Referral Reason:new atrial fibrillation and CHF MEASUREMENTS -------- HEIGHT: 182.9 cm WEIGHT: 90.7 kg BP: 131/76 RVIDd: 4.0 cm (< 3.3) IVSd: 1.6 cm (0.6 - 1.1) LVIDd: 5.9 cm (3.9 - 5.3) LVPWd: 1.6 cm (0.6 - 1.1) IVSs: 1.9 cm LVIDs: 4.8 cm LVPWs: 2.1 cm LA Diam: 3.5 cm (2.7 - 3.8) LAESV Index (A-L): 35.73 ml/m Ao Diam: 4.4 cm (2.0 - 3.7) AV Cusp: 2.6 cm (1.5 - 2.6) MV EXCURSION: 12.104 mm (> 18.000) MV EF SLOPE: 69 mm/s (70 - 150) EPSS: 1.4 cm AR PHT: 378 ms RAP: 15.00 mmHg RVSP: 41.73 mmHg FINDINGS -------- Atrial fibrillation. This was a technically difficult study with suboptimal views. The left ventricular size is normal. There is moderate concentric left ventricular hypertrophy. O verall left ventricular systolic function is moderately impaired with, an EF between 35 - 40 %. The right ventricle is moderately enlarged. LA is moderately dilated 34-39 ml/m2 The right atrium is normal in size. 3 ml of Lumason was utilized for enhancement of images. Interatrial and interventricular septum intact. There is mild aortic valve sclerosis. There is mild aortic regurgitation. Mild mitral annular calcification present. There is trace mitral regurgitation. Mild tricuspid regurgitation present. There is mild pulmonary hypertension. The right ventricular systolic pressure, as measured by Doppler, is 41.73mmHg. The pulmonic valve was not well visualized. The aortic root is dilated measuring 4.4cm. The inferior vena cava is dilated with poor inspiratory collapse which is consistent with estimated r ight atrial pressure of 15 mmHg. There is no pericardial effusion. CONCLUSIONS -------- 1. This was a technically difficult study with suboptimal views. 2. The left ventricular size is normal. 3. There is moderate concentric left ventricular hypertrophy. 4. Overall left ventricular systolic function is moderately impaired with, an EF between 35 - 40 %. 5. The right ventricle is moderately enlarged. 6. LA is moderately dilated 34-39 ml/m2 7. 3 ml of Lumason was utilized for enhancement of images. 8. There is mild aortic valve sclerosis. 9. There is mild aortic regurgitation. 10. Mild mitral annular calcification present. 11. There is trace mitral regurgitation. 12. Mild tricuspid regurgitation present. 13. There is mild pulmonary hypertension. 14. The right ventricular systolic pressure, as measured by Doppler, is 41.73mmHg. 15. The aortic root is dilated measuring 4.4cm. 16. The inferior vena cava is dilated with poor inspiratory collapse which is consistent with estimat ed right atrial pressure of 15 mmHg. 17. There is no pericardial effusion. SALES CORRESPONDENCE CLERK: Maida Castillo RDCS
--- NOTE | 2021-11-25 14:37 | P.HPIM ---
History of Present Illness H&P Date: 11/25/21 Chief Complaint: Short of breath History of presenting complaint: This is a [address] Chavez. Chronic stable medical conditions include COPD, fibromyalgia, hypertension, osteoarthritis, chronic pancreatitis from alcoholism, peripheral neuropathy varicose veins, restless leg syndrome, BPH surgery, Alvarenga's esophagus and chronic low back pain from osteoarthritis. Patient presents with progressive increasing shortness of breath. Abdominal distention. Edema. Wheezing. Cough. Denies any fever and chills. Appetite is fair. No change in bowel habit. Patient continues to smoke about half a pack a day and 2-3 beers a day. Feels tired rundown. Review of systems: GEN.: Tired EYES: None HEENT: None NECK: None RESPIRATORY: As above CARDIOVASCULAR: As above GASTROINTESTINAL: None GENITOURINARY: None MUSCULOSKELETAL: Joint pains LYMPHATICS: None HEMATOLOGICAL: None PSYCHIATRY: None NEUROLOGICAL: None Social history: Patient lives with his sister Scott Villagomez sometime uses a cane. Smoked for close to 42 years. Smoking about half a pack a day. Drinking alcohol for years. Stopped for a short time. At about 2.3 beers a day. Physical examination: VITAL SIGNS: 98.1, 122, 24, 150/97, 96% room air upon presentation GENERAL: BMI 27.1 planning in bed, awake, short of breath. EYES: Pupils equal. Conjunctiva normal. HEENT: External appearance of nose and ears normal, oral cavity grossly normal. NECK: JVD raised; masses not palpable. HEART: First and second heart sounds are normal; significant edema. LUNGS: Respiratory rate increased; decreased breath sounds, prolonged expiration and wheezing. ABDOMEN: Soft, distended, nontender, liver spleen not palpable, no masses palpable. divarification of recti . Dullness at Flomax PSYCH: Alert and oriented x3; mood and affect anxiousl. MUSCULOSKELETAL:No Clubbing/cyanosis;muscles-grossly intact. No evidence of OA NEUROLOGICAL: Cranial nerves grossly intact; no facial asymmetry, power and sensation grossly intact. LYMPHATICS: No lymph nodes palpable in the axilla and neck INVESTIGATIONS, reviewed in the clinical context: White count 6.6 hemoglobin 12.8 platelets 288 sodium 137 potassium 3.9 creatinine 0.94 ProBNP 781 troponin I 0.019, 0.023 EKG tracing personally reviewed by me-atrial fibrillation. Rate 119 Chest x-ray film personally reviewed by me-hyperinflation. Some venous prominence. Possible infiltrates 2-D echocardiogram: Moderate concentric LVH. EF 35-40%. Right ventricular moderately enlarged. Assessment and plan: -Acute congestive heart failure exacerbation from systolic and diastolic dysfunction EF 35-40% IV Lasix 40 mg every 8. Fluid restriction - chronic pancreatitis from alcoholism: -Acute COPD exacerbation in a cigarette smoker, DuoNeb 4 times a day, Pulmicort 1 mg twice a day, -Suspect ascites. Abdominal ultrasound to assess for cirrhosis and amount of ascites. -New onset of atrial fibrillation rate uncontrolled. Lopressor. Eliquis. -Chronic nicotine dependence, cigarette smoker Nicotine patch 14 -Chronic fibromyalgia Flexeril 10 mg 3 times a day -Essential hypertension Zestril 20 mg a day. Lopressor 50 mg twice a day -Primary osteoarthritis, multiple joints bilaterally Pain medications as needed -Alcoholic peripheral neuropathy -restless leg syndrome Requip mg daily at bedtime -Alvarenga's esophagus Protonix 40 mg twice a day -Alcohol use disorder counseled IV Lasix. Fluid restriction 2000 mL a day. Resume home medications. Eliquis. Lopressor. Follow lites closely. DuoNeb. Nebulized steroids. IV Solu-Medrol. Abdominal ultrasound. Care was discussed with the patient. Questions answered. Given the complexity and severity of patient's condition expect the patient to be in the hospital at least for 2 overnights Past Medical History Past Medical History: Coronary Artery Disease (CAD), COPD, Eye Disorder, Fibromyalgia, Hypertension, Myocardial Infarction (AL), Osteoarthritis (OA), Prostate Disorder, Vascular Disorder Additional Past Medical History / Comment(s): Patient states did not have AL was a valve issue. Chronic cough, chronic pancreatitis, past alcohol abuse-pt states occasionally now, bilateral eye glaucoma, neuropathy bilateral feet, poor circulation to legs, varicose veins, RLS, BPH with surgery, colitis, gastritis, Alvarenga's esophagus, shingles in 2013 and states joint pain since, chronic low back pain, DDD. Last Myocardial Infarction Date:: 09/02/16 History of Any Multi-Drug Resistant Organisms: None Reported Past Surgical History: Appendectomy, Heart Catheterization, Joint Replacement, Orthopedic Surgery, Prostate Surgery Additional Past Surgical History / Comment(s): Right knee arthroscopy for torn meniscus, right knee replacement, EGD, colonoscopy, TURP. Past Anesthesia/Blood Transfusion Reactions: No Reported Reaction Past Psychological History: Anxiety, Depression Additional Psychological History / Comment(s): Pt resides with his sister Ewelina. He uses a cane prn. 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 Smoking Status: Former smoker Past Alcohol Use History: Occasional Additional Past Alcohol Use History / Comment(s): Started smoking at age 13, quit smoking 10/2016, but has an occasional cigarette or 2 in a week. Pt has hx of alcohol abuse but states now he drinks on occasion only. (06/20/2019) - pt states he has been using nicotine patches to help stop smoking, has been recently trying to stop. (02/08/2020) patient still smoking weekly Past Drug Use History: Cocaine Additional Drug Use History / Comment(s): Past cocaine use, pt states its been a few years since he used. - Past Family History Father Family Medical History: CVA/TIA, Hypertension Additional Family Medical History / Comment(s): Father at the age of 38yrs from HTN/CVA. He was an alcoholic. Mother Family Medical History: COPD, Diabetes Mellitus Additional Family Medical History / Comment(s): Mother of emphysema at the age of 74 yrs (2003), mom has hx of drinking and smoking. Medications and Allergies Home Medications Medication Instructions Recorded Confirmed Type lisinopriL [Zestril] 20 mg PO DAILY@1200 06/28/16 11/24/21 History amLODIPine [Norvasc] 10 mg PO DAILY@1200 09/26/16 11/24/21 History Montelukast [Singulair] 10 mg PO DAILY@1200 01/12/18 11/24/21 History Omeprazole 20 mg PO DAILY@1200 02/08/20 11/24/21 History Fluticasone Nasal [place] [Flonase 2 spr EA NOSTRIL DAILY PRN 07/02/20 11/24/21 History Nasal [place]] Furosemide [Lasix] 20 mg PO DAILY@1200 07/01/21 11/24/21 History Budesonide/Formoterol Fumarate 1 puff INHALATION RT-BID 11/08/21 11/24/21 History [Symbicort 80-4.5 Mcg Inhaler] Latanoprost Ophth [Xalatan 0.005%] 1 drops BOTH EYES HS 11/08/21 11/24/21 History Tamsulosin [Flomax] 0.4 mg PO DAILY@1200 11/08/21 11/24/21 History rOPINIRole HCL [Requip] 4 mg PO HS 11/08/21 11/24/21 History Cyclobenzaprine [Flexeril] 10 mg PO TID 11/24/21 11/24/21 History Loratadine [Claritin] 10 mg PO DAILY@1200 11/24/21 11/24/21 History oxyCODONE-APAP 10-325MG [Percocet 1 tab PO Q8HR PRN 11/24/21 11/24/21 History 10-325 mg] Apixaban [Eliquis] 5 mg PO BID 30 Days #60 tab 11/25/21 Rx Allergies Allergy/AdvReac Type Severity Reaction Status Date / Time pregabalin [From Lyrica] Allergy Swelling Verified 11/24/21 15:23 amoxicillin trihydrate AdvReac Rapid Verified 11/24/21 15:23 [From Augmentin] Heart Rate potassium clavulanate AdvReac FELT LIKE Verified 11/24/21 15:23 [From Augmentin] HE WAS GOING TO PASS OUT FAST HEARTBEAT" Physical Exam Vitals: Vital Signs Temp Pulse Pulse Resp BP BP Pulse Ox 11/25/21 08:00 96.9 F L 80 18 140/67 96 11/25/21 03:07 80 18 131/76 94 L 11/24/21 23:55 79 18 132/75 99 11/24/21 21:50 98.1 F 106 H 18 158/86 96 11/24/21 20:48 80 18 135/95 95 11/24/21 18:41 100 20 143/93 98 11/24/21 15:39 111 H 22 150/97 96 11/24/21 14:44 98.1 F 122 H 24 96 Intake and Output 11/24/21 11/25/21 11/25/21 22:59 06:59 14:59 Other: Weight 90.718 kg Results CBC & Chem 7: 11/25/21 08:56 11/25/21 08:56 Labs: Abnormal Lab Results - Last 24 Hours (Table) 11/24/21 11/24/21 11/25/21 Range/Units 15:38 15:38 08:56 RBC 4.01 L 4.13 L (4.30-5.90) m/uL Hgb 12.7 L 12.8 L (13.0-17.5) gm/dL Glucose 120 H (74-99) mg/dL ALT 66 H (4-49) U/L 11/25/21 Range/Units 08:56 RBC (4.30-5.90) m/uL Hgb (13.0-17.5) gm/dL Glucose 133 H (74-99) mg/dL ALT (4-49) U/L Thrombosis Risk Factor Assmnt - Choose All That Apply Any of the Below Risk Factors Present?: Yes Each Factor Represents 1 point: Abnormal pulmonary function (COPD), Swollen legs (current) Other Risk Factors: Yes Each Risk Factor Represents 2 Points: Age 61-74 years Other congenital or acquired thrombophilia - If yes, enter type in comment: No Thrombosis Risk Factor Assessment Total Risk Factor Score: 4 Thrombosis Risk Factor Assessment Level: Moderate Risk
--- NOTE | 2021-11-25 14:42 | P.CRDCN ---
History of Present Illness History of present illness: This is a 61 year old male with a past medical history of moderate aortic regurgitation, hypertension, dyslipidemia, chronic nicotine dependence. He follow with Dr. Avila. We have been asked to see in consultation for atrial fibrillation and congestive heart failure. Patient presents to the emergency department with worsening lower extremity edema, dyspnea with activity and shortness of breath. He states he has been having these symptoms for about 6 months but have progressively worsened over the past 3 days. He states he was prescribed Lasix by his PCP months ago. He denies any chest pain, lightheadedness, dizziness, syncope or near-syncopal BP. He does endorse occasional palpitations. She denies any symptoms of orthopnea or PND. He normally sleeps with one pillow. He is a chronic smoker, smokes less than 1/2 PPD. Occasional alochol use. History of cocaine use. He is on coumadin 2.5mg daily, he is unsure why he is on coumadin, thinks it is because of his valve. No history of valve replacement. He does not get his INR checks regularly. He denies history of atrial fibrillation, FL, stroke, or diabetes. DIAGNOSTICS -EKG reveals atrial fibrillation with RVR, heart rate 119, no significant ST or T-wave a mallet the cyst chest ischemia -Telemetry tracings indicate atrial fibrillation heart rates in the [id number] -Echocardiogram revealed EF 3540%, mild aortic regurgitation, mild tricuspid regurgitation, mild pulmonary hypertension with RVSP 41 mmHg -Prior echocardiogram in the office 11/2020 revealed an EF of 55%, moderate to severe aortic regurgitation, mild tricuspid regurgitation, mild mitral regurgitation -Recent Lexiscan stress test 10/15/2021 revealed probably normal myocardial perfusion and function with a fixed inferior wall defect secondary to soft tiss ue attenuation -Most recent cardiac catheterization 11/2006 revealed mild nonobstructive coronary artery disease involving the circumflex coronary artery -Chest xray bibasilar infiltrates, atelectasis versus pneumonia, atypical pulmonary edema could be considered. -Laboratory reviewed, WBC 6.6, hemoglobin 12.8, troponin negative 2, proBNP 781, sodium 137, potassium 3.9, BUN 18, serum creatinine 0.9 -Current home cardiac medications include Coumadin 2.5 mg daily, lisinopril 20 mg daily, amlodipine 10 mg daily, Lasix 20 mg daily REVIEW OF SYSTEMS At the time of my exam: CONSTITUTIONAL: Denies fever or chills. CARDIOVASCULAR: Denies chest pain, +shortness of breath, orthopnea, PND or palpitations. RESPIRATORY: Denies cough. GASTROINTESTINAL: Denies abdominal pain, diarrhea, constipation, nausea or vomiting. MUSCULOSKELETAL: Denies myalgias. NEUROLOGIC: Denies numbness, tingling, headacbe or weakness. ENDOCRINE: Denies fatigue, weight change, polydipsia or polyurina. GENITOURINARY: Denies burning, hematuria or urgency with micturation. HEMATOLOGIC: Denies history of anemia or bleeding. PHYSICAL EXAMINATION Blood pressure 134/73, heart rate 72, afebrile, oxygen saturations 96% on room air CONSTITUTIONAL: No apparent distress. HEENT: Head is normocephalic. Pupils are equal, round. Sclerae anicteric. Mucous membranes of the mouth are moist. No JVD. No carotid bruit. CHEST EXAMINATION: Lungs are diminished to auscultation. No chest wall tenderness is noted on palpation or with deep breathing. HEART EXAMINATION: Irregular rate and rhythm. S1, S2 heard. No murmurs, gallops or rub. ABDOMEN: Soft, nontender. Positive bowel sounds. EXTREMITIES: 2+ peripheral pulses, 2+ bilateral lower extremity edema and no calf tenderness. NEUROLOGIC EXAMINATION: Patient is awake, alert and oriented x3. ASSESSMENT Acute on chronic heart failure with reduced ejection fraction 35-40% Cardiomyopathy, unclear if ischemic vs non-ischemic at this time, troponin negative x 2, no chest pain New onset paroxysmal atrial fibrillation [id number] score 2 History of hypertension Dyslipidemia Chronic nicotine dependence Valvular heart disease History of cocaine use Was taking coumadin at home, unclear why at this time PLAN 2D echo obtained and reviewed Continue IV Lasix 40mg BID Monitor I/Os, daily weights, renal function and electrolytes Discontinue Coumadin and start Eliquis 5mg BID. Case management consulted for coverage Continue home metoprolol and lisinopril Further recommendations based on clinical course Nurse practitioner note has been reviewed by physician. Signing provider agrees with the documented findings, assessment, and plan of care. Past Medical History Past Medical History: Coronary Artery Disease (CAD), COPD, Eye Disorder, Fibromyalgia, Hypertension, Myocardial Infarction (FL), Osteoarthritis (OA), Prostate Disorder, Vascular Disorder Additional Past Medical History / Comment(s): Patient states did not have FL was a valve issue. Chronic cough, chronic pancreatitis, past alcohol abuse-pt states occasionally now, bilateral eye glaucoma, neuropathy bilateral feet, poor circulation to legs, varicose veins, RLS, BPH with surgery, colitis, gastritis, Alvarenga's esophagus, shingles in 2012 and states joint pain since, chronic low back pain, DDD. Last Myocardial Infarction Date:: 09/02/16 History of Any Multi-Drug Resistant Organisms: None Reported Past Surgical History: Appendectomy, Heart Catheterization, Joint Replacement, Orthopedic Surgery, Prostate Surgery Additional Past Surgical History / Comment(s): Right knee arthroscopy for torn meniscus, right knee replacement, EGD, colonoscopy, TURP. Past Anesthesia/Blood Transfusion Reactions: No Reported Reaction Past Psychological History: Anxiety, Depression Additional Psychological History / Comment(s): Pt resides with his sister Ewelina. He uses a cane prn. 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 He gets places by Ewelina driving. Smoking Status: Former smoker Past Alcohol Use History: Occasional Additional Past Alcohol Use History / Comment(s): Started smoking at age 13, quit smoking 10/2016, but has an occasional cigarette or 2 in a week. Pt has hx of alcohol abuse but states now he drinks on occasion only. (06/20/2019) - pt states he has been using nicotine patches to help stop smoking, has been recently trying to stop. (02/08/2020) patient still smoking weekly Past Drug Use History: Cocaine Additional Drug Use History / Comment(s): Past cocaine use, pt states its been a few years since he used. - Past Family History Father Family Medical History: CVA/TIA, Hypertension Additional Family Medical History / Comment(s): Father at the age of 38yrs from HTN/CVA. He was an alcoholic. Mother Family Medical History: COPD, Diabetes Mellitus Additional Family Medical History / Comment(s): Mother of emphysema at the age of 74 yrs (2003), mom has hx of drinking and smoking. Medications and Allergies Home Medications Medication Instructions Recorded Confirmed Type lisinopriL [Zestril] 20 mg PO DAILY@1200 06/28/16 11/24/21 History amLODIPine [Norvasc] 10 mg PO DAILY@1200 09/26/16 11/24/21 History Montelukast [Singulair] 10 mg PO DAILY@1200 01/12/18 11/24/21 History Omeprazole 20 mg PO DAILY@1200 02/08/20 11/24/21 History Fluticasone Nasal [place] [Flonase 2 spr EA NOSTRIL DAILY PRN 07/02/20 11/24/21 Hi story Nasal [place]] Furosemide [Lasix] 20 mg PO DAILY@1200 07/01/21 11/24/21 History Budesonide/Formoterol Fumarate 1 puff INHALATION RT-BID 11/08/21 11/24/21 History [Symbicort 80-4.5 Mcg Inhaler] Latanoprost Ophth [Xalatan 0.005%] 1 drops BOTH EYES HS 11/08/21 11/24/21 History Tamsulosin [Flomax] 0.4 mg PO DAILY@1200 11/08/21 11/24/21 History rOPINIRole HCL [Requip] 4 mg PO HS 11/08/21 11/24/21 History Cyclobenzaprine [Flexeril] 10 mg PO TID 11/24/21 11/24/21 History Loratadine [Claritin] 10 mg PO DAILY@119911/24/21 11/24/21 History oxyCODONE-APAP 10-325MG [Percocet 1 tab PO Q8HR PRN 11/24/21 11/24/21 History 10-325 mg] Apixaban [Eliquis] 5 mg PO BID 30 Days #60 tab 11/25/21 Rx Allergies Allergy/AdvReac Type Severity Reaction Status Date / Time pregabalin [From Lyrica] Allergy Swelling Verified 11/24/21 15:23 amoxicillin trihydrate AdvReac Rapid Verified 11/24/21 15:23 [From Augmentin] Heart Rate potassium clavulanate AdvReac FELT LIKE Verified 11/24/21 15:23 [From Augmentin] HE WAS GOING TO PASS OUT FAST HEARTBEAT" Physical Exam Vitals: Vital Signs Temp Pulse Pulse Resp BP BP Pulse Ox 11/25/21 03:07 80 18 131/76 94 L 11/24/21 23:55 79 18 132/75 99 11/24/21 21:50 98.1 F 106 H 18 158/86 96 11/24/21 20:48 80 18 135/95 95 11/24/21 18:41 100 20 143/93 98 11/24/21 15:39 111 H 22 150/97 96 11/24/21 14:44 98.1 F 122 H 24 96 Intake and Output 11/24/21 11/25/21 11/25/21 22:59 06:59 14:59 Other: Weight 90.718 kg Results 11/25/21 08:56 11/25/21 08:56 Cardiac Enzymes 11/24/21 11/24/21 Range/Units 15:38 15:38 AST 59 (17-59) U/L Troponin I 0.019 (0.000-0.034) ng/mL Coagulation 11/24/21 Range/Units 15:38 PT 11.7 (9.0-12.0) sec APTT 25.3 (22.0-30.0) sec CBC 11/24/21 Range/Units 15:38 WBC 8.0 (3.8-10.6) k/uL RBC 4.01 L (4.30-5.90) m/uL Hgb 12.7 L (13.0-17.5) gm/dL Hct 39.0 (39.0-53.0) % Plt Count 243 (150-450) k/uL Comprehensive Metabolic Panel 11/24/21 Range/Units 15:38 Sodium 137 (137-145) mmol/L Potassium 4.1 (3.5-5.1) mmol/L Chloride 104 (98-107) mmol/L Carbon Dioxide 25 (22-30) mmol/L BUN 17 (9-20) mg/dL Creatinine 0.82 (0.66-1.25) mg/dL Glucose 120 H (74-99) mg/dL Calcium 9.0 (8.4-10.2) mg/dL AST 59 (17-59) U/L ALT 66 H (4-49) U/L Alkaline Phosphatase 87 (38-126) U/L Total Protein 7.0 (6.3-8.2) g/dL Albumin 3.9 (3.5-5.0) g/dL Current Medications Generic Name Dose Route Start Last Admin Trade Name Freq PRN Reason Stop Dose Admin Cyclobenzaprine HCl 10 mg 11/24/21 18:30 11/24/21 21:59 Cyclobenzaprine 10 Mg Tab PO 10 mg TID CHEYANNE Administration Furosemide 40 mg 11/24/21 18:30 11/25/21 06:20 Furosemide 10 Mg/Ml 4 Ml Vial IV 40 mg Q12H CHEYANNE Administration Metoprolol Tartrate 25 mg 11/24/21 21:00 11/24/21 21:59 Metoprolol Tartrate 25 Mg Tab PO 25 mg BID CHEYANNE Administration Oxycodone/Acetaminophen 1 each 11/24/21 18:16 11/25/21 03:05 Oxycodone-Apap 10-325mg 1 Each Tab PO 1 each Q8HR PRN Administration Pain Intake and Output 11/24/21 11/25/21 11/25/21 22:59 06:59 14:59 Other: Weight 90.718 kg 11/24/21 15:38 11/24/21 15:38
[2021-11-25 15:07] VITALS: BMI 27.1
[2021-11-25] MEDS: IPRATROPIUM-ALBUTEROL 3 ML NEB INHALATION SCH ×3 (15:56→20:08)
[2021-11-25] MEDS: BUDESONIDE 1 MG/2 ML NEBU INHALATION SCH ×2 (15:56→20:08)
[2021-11-25] MEDS ORDERED: METOPROLOL TARTRATE 25 MG TAB PO SCH (16:00)
[2021-11-25] MEDS: NICOTINE 14MG/24HR PATCH TRANSDERM SCH (16:30)
[2021-11-25] MEDS: methylPREDNISolone SOD SUCCI 40 MG/ML 1 ML VIAL IV SCH ×2 (16:30→23:34)
[2021-11-25 16:31] LABS: Glucose,Whole Blood 182 mg/dL (75-99)
--- NOTE | 2021-11-25 16:33 | US ---
EXAMINATION TYPE: US abdomen limited DATE OF EXAM: 11/25/2021 COMPARISON: NONE CLINICAL HISTORY: Assessment ascites, cirrhosis. Distended abd Scanned all four quadrants and no free fluid was noted. IMPRESSION: No evidence of ascites.
[2021-11-25] MEDS: INSULIN ASPART (NovoLOG) 100 UNIT/ML VIAL SQ SCH (16:37)
[2021-11-25] MEDS ORDERED: WARFARIN 2.5 MG TAB PO SCH (18:00)
[2021-11-25] MEDS: rOPINIRole HCL 4 MG TABLET PO SCH (20:10)
[2021-11-25] MEDS: METOPROLOL TARTRATE 50 MG TAB PO SCH (20:11)
[2021-11-25] MEDS: LATANOPROST 0.005% OPHTH DROPS 2.5 ML BTL BOTH EYES SCH (20:11)
[2021-11-25 20:15] LABS: Glucose,Whole Blood 179 mg/dL (75-99)
[2021-11-26] MEDS: oxyCODONE-APAP 10-325MG 1 EACH TAB PO PRN ×3 (03:56→19:52)
[2021-11-26 05:59] LABS: Glucose,Whole Blood 260 mg/dL (75-99)
[2021-11-26] MEDS: FUROSEMIDE 10 MG/ML 4 ML VIAL IV SCH (06:22)
[2021-11-26] MEDS: INSULIN ASPART (NovoLOG) 100 UNIT/ML VIAL SQ SCH ×3 (06:23→16:58)
[2021-11-26] MEDS: IPRATROPIUM-ALBUTEROL 3 ML NEB INHALATION SCH ×4 (07:24→19:20)
[2021-11-26] MEDS: BUDESONIDE 1 MG/2 ML NEBU INHALATION SCH ×2 (07:24→19:20)
[2021-11-26] MEDS: methylPREDNISolone SOD SUCCI 40 MG/ML 1 ML VIAL IV SCH ×3 (08:57→23:01)
[2021-11-26] MEDS: NICOTINE 14MG/24HR PATCH TRANSDERM SCH (08:57)
[2021-11-26] MEDS: METOPROLOL TARTRATE 50 MG TAB PO SCH ×4 (08:57→19:51)
[2021-11-26] MEDS: CYCLOBENZAPRINE 10 MG TAB PO SCH ×3 (08:57→19:51)
[2021-11-26] MEDS: APIXABAN 5 MG TAB PO SCH ×2 (08:57→19:51)
[2021-11-26 09:25] LABS: Calcium 9.4 mg/dL (8.4-10.2)
--- NOTE | 2021-11-26 10:14 | P.PN ---
Subjective This is a 61 year old male with a past medical history of moderate aortic regurgitation, hypertension, dyslipidemia, chronic nicotine dependence. He follow with Dr. Avila. We have been asked to see in consultation for atrial fibrillation and congestive heart failure. Patient presents to the emergency department with worsening lower extremity edema, dyspnea with activity and shortness of breath. He states he has been having these symptoms for about 6 months but have progressively worsened over the past 3 days. He states he was prescribed Lasix by his PCP months ago. He denies any chest pain, lightheadedness, dizziness, syncope or near-syncopal BP. He does endorse occasional palpitations. She denies any symptoms of orthopnea or PND. He no rmally sleeps with one pillow. He is a chronic smoker, smokes less than 1/2 PPD. Occasional alochol use. History of cocaine use. He is on coumadin 2.5mg daily, he is unsure why he is on coumadin, thinks it is because of his valve. No history of valve replacement. He does not get his INR checks regularly. He denies history of atrial fibrillation, OK, stroke, or diabetes. DIAGNOSTICS -EKG revealed atrial fibrillation with RVR, heart rate 119, no significant ST or T-wave a mallet the cyst chest ischemia -Echocardiogram revealed EF 3540%, mild aortic regurgitation, mild tricuspid regurgitation, mild pulmonary hypertension with RVSP 41 mmHg -Prior echocardiogram in the office 11/2020 revealed an EF of 55%, moderate to severe aortic regurgitation, mild tricuspid regurgitation, mild mitral r egurgitation -Recent Lexiscan stress test 10/15/2021 revealed probably normal myocardial perfusion and function with a fixed inferior wall defect secondary to soft tissue attenuation -Most recent cardiac catheterization 11/2006 revealed mild nonobstructive coronary artery disease involving the circumflex coronary artery 11/26/2021 Patient seen and examined at bedside, no acute distress. He denies any chest pain. His breathing has significantly improved. His lower extremity was also significantly improved since admission. He has -3200mL urine output. weight stable. He is on Lasix IV 40mg BID. Eliquis 5mg BID. Lisinopril 20 mg daily, metoprolol tartrate 50mg BID Telemetry reviewed, continues to be in atrial fibrillation HR 80s-90s Echo revealed decreased EF 35-40%. PHYSICAL EXAMINATION Vitals reviewed CONSTITUTIONAL: No apparent distress. HEENT: Neck Supple. No JVD. CHEST EXAMINATION: Lungs are diminished to auscultation. No chest wall tenderness is noted on palpation or with deep breathing. HEART EXAMINATION: Irregular rate and rhythm. S1, S2 heard. No murmurs, gallops or rub. ABDOMEN: Soft, nontender. Positive bowel sounds. EXTREMITIES: 2+ peripheral pulses, trace bilateral lower extremity edema and no calf tenderness. NEUROLOGIC EXAMINATION: Patient is awake, alert and oriented x3. ASSESSMENT Acute on chronic heart failure with reduced ejection fraction 35-40% Cardiomyopathy EF 35-40% unclear if ischemic vs non-ischemic at this time, tropo tavo negative x 2, no chest pain New onset paroxysmal atrial fibrillation [id number] score 2 History of hypertension Dyslipidemia Chronic nicotine dependence Valvular heart disease History of cocaine use Was taking coumadin at home, unclear why at this time PLAN Transition to PO Lasix 40mg BID Increase metoprolol 50mg TID Discontinue Coumadin and Continue Eliquis 5mg BID. Spoke with kurt, this medication is covered with no co-pay. Continue home lisinopril From a cardiology perspective, patient is stable to be discharged later today. Follow up with Dr. Avila in 1 week for further cardiomyopathy and atrial fibrillation plans. Nurse practitioner note has been reviewed by physician. Signing provider agrees with the documented findings, assessment, and plan of care. Objective - Vital Signs Vital signs: Vital Signs Temp 97.8 F 11/25/21 20:05 Pulse 84 11/26/21 07:39 Resp 18 11/26/21 03:55 BP 137/84 11/26/21 03:55 Pulse Ox 96 11/26/21 03:55 Intake & Output 11/25/21 11/26/21 11/26/21 18:59 06:59 18:59 Output Total 1850 1350 Balance -1850 -1350 Weight 90.718 kg Output: Urine 1850 1350 Other: # Voids 5 - Labs CBC & Chem 7: 11/25/21 08:56 11/26/21 08:01 Labs: Abnormal Lab Results - Last 24 Hours (Table) 11/25/21 11/25/21 11/25/21 Range/Units 08:56 08:56 16:29 RBC 4.13 L (4.30-5.90) m/uL Hgb 12.8 L (13.0-17.5) gm/dL Glucose 133 H (74-99) mg/dL POC Glucose (mg/dL) 182 H (75-99) mg/dL 11/25/21 11/26/21 Range/Units 20:13 05:53 RBC (4.30-5.90) m/uL Hgb (13.0-17.5) gm/dL Glucose (74-99) mg/dL POC Glucose (mg/dL) 179 H 260 H (75-99) mg/dL
[2021-11-26 11:25] LABS: Glucose,Whole Blood 267 mg/dL (75-99)
[2021-11-26] MEDS: LORATADINE 10 MG TAB PO SCH (12:11)
[2021-11-26] MEDS: lisinopriL 20 MG TAB PO SCH (12:11)
[2021-11-26] MEDS: TAMSULOSIN 0.4 MG CAP.ER.24H PO SCH (12:11)
[2021-11-26] MEDS: PANTOPRAZOLE 40 MG TABLET PO SCH (12:11)
[2021-11-26] MEDS: MONTELUKAST 10 MG TAB PO SCH (12:11)
--- NOTE | 2021-11-26 14:54 | US ---
EXAMINATION TYPE: US abdomen complete DATE OF EXAM: 11/26/2021 COMPARISON: 11/25/2021 CLINICAL HISTORY: pain. chronic cirrhosis EXAM MEASUREMENTS: Liver Length: 24.5 cm Gallbladder Wall: 0.3 cm CBD: 0.7 cm Spleen: 12.6 cm Right Kidney: 10.9 x 5.1 x 5.5 cm Left Kidney: 10.5 x 4.6 x 5.4 cm Pancreas: not seen due to overlying bowel gas Liver: grossly enlarged, difficult to penetrate Gallbladder: 11.0cm in length, hydropic Evidence for sonographic Kelly's sign: no CBD: wnl Spleen: upper limits of normal for size Right Kidney: wnl Left Kidney: wnl Upper IVC: wnl Abd Aorta: not seen due to overlying bowel gas The liver is homogenous. The intrahepatic portion of the IVC and proximal abdominal aorta are within normal limits. There is no evidence of cholelithiasis. Common bile duct is unremarkable. The visu alized portions of the pancreas are homogenous. The spleen is unremarkable. Kidneys are symmetric a nd free of hydronephrosis. No renal lesions are seen. IMPRESSION: 1. Enlarged liver with mild increased echotexture consistent with cirrhotic changes. 2. No focal liver mass seen. 3 normal gallbladder and no biliary ductal dilatation. 4. Pancreas not evaluated due to bowel gas. 5. Normal kidneys, aorta and IVC.
--- NOTE | 2021-11-26 16:24 | P.PN ---
Progress Note - Text Progress Note Date: 11/26/21 Chief Complaint: Short of breath History of presenting complaint: This is a [address] Chavez. Chronic stable medical conditions include COPD, fibromyalgia, hypertension, osteoarthritis, chronic pancreatitis from alcoholism, peripheral neuropathy varicose veins, restless leg syndrome, BPH surgery, Alvarenga's esophagus and chronic low back pain from osteoarthritis. Patient presents with progressive increasing shortness of breath. Abdominal distention. Edema. Wheezing. Cough. Denies any fever and chills. Appetite is fair. No change in bowel habit. Patient continues to smoke about half a pack a day and 2-3 beers a day. Feels tired rundown. November 26: Short of breath. 3200 mL in negative fluid balance. Edema decreased. Went into atrial fibrillation. Metoprolol increased to 50 mg 3 times a day. Started on eliquis by cardiology. Repeat ultrasound ordered did confirm cirrhosis. Active Medications Albuterol/Ipratropium (Ipratropium-Albuterol 3 Ml Neb) 3 ml INHALATION RT-QID [facility] Last Admin: 11/26/21 11:07 Dose: Not Given Documented by: Apixaban (Apixaban 5 Mg Tab) 5 mg PO BID [facility]; Protocol Last Admin: 11/26/21 08:57 Dose: 5 mg Documented by: Budesonide (Budesonide 1 Mg/2 Ml Nebu) 1 mg INHALATION RT-BID [facility] Last Admin: 11/26/21 07:24 Dose: 1 mg Documented by: Cyclobenzaprine HCl (Cyclobenzaprine 10 Mg Tab) 10 mg PO TID [facility] Last Admin: 11/26/21 08:57 Dose: 10 mg Documented by: Fluticasone Propionate (Fluticasone 50mcg/[place] Nasal 16gm) 2 spray EA NOSTRIL DAILY PRN PRN Reason: Allergy Symptoms Furosemide (Furosemide 40 Mg Tab) 40 mg PO BID@0900,1600 [facility] Insulin Aspart (Insulin Aspart (Novolog) 100 Unit/Ml Vial) 0 unit SQ AC-TID [facility]; Protocol Last Admin: 11/26/21 12:11 Dose: 8 unit Documented by: Latanoprost (Latanoprost 0.005% Ophth Drops 2.5 Ml Btl) 1 drops BOTH EYES HS [facility] Last Admin: 11/25/21 20:11 Dose: 1 drops Documented by: Lisinopril (Lisinopril 20 Mg Tab) 20 mg PO DAILY@1200 [facility] Last Admin: 11/26/21 12:11 Dose: 20 mg Documented by: Loratadine (Loratadine 10 Mg Tab) 10 mg PO DAILY@1200 [facility] Last Admin: 11/26/21 12:11 Dose: 10 mg Documented by: Methylprednisolone Sodium Succinate (Methylprednisolone Sod Succi 40 Mg/Ml 1 Ml Vial) 40 mg IV Q8HR [facility] Last Admin: 11/26/21 08:57 Dose: 40 mg Documented by: Metoprolol Tartrate (Metoprolol Tartrate 50 Mg Tab) 50 mg PO TID [facility] Last Admin: 11/26/21 10:38 Dose: Not Given Documented by: Montelukast Sodium (Montelukast 10 Mg Tab) 10 mg PO DAILY@1200 [facility] Last Admin: 11/26/21 12:11 Dose: 10 mg Documented by: Nicotine (Nicotine 14mg/24hr Patch) 1 patch TRANSDERM DAILY [facility] Last Admin: 11/26/21 08:57 Dose: 1 patch Documented by: Oxycodone/Acetaminophen (Oxycodone-Apap 10-325mg 1 Each Tab) 1 each PO Q8HR PRN PRN Reason: Pain Last Admin: 11/26/21 12:11 Dose: 1 each Documented by: Pantoprazole Sodium (Pantoprazole 40 Mg Tablet) 40 mg PO DAILY@1200 [facility] Last Admin: 11/26/21 12:11 Dose: 40 mg Documented by: Ropinirole HCl (Ropinirole Hcl 4 Mg Tablet) 4 mg PO [facility] Last Admin: 11/25/21 20:10 Dose: 4 mg Documented by: Tamsulosin HCl (Tamsulosin 0.4 Mg Cap.Er.24h) 0.4 mg PO DAILY@1200 [facility] Last Admin: 11/26/21 12:11 Dose: 0.4 mg Documented by: Social history: Patient lives with his sister Scott Villagomez sometime uses a cane. Smoked for close to 42 years. Smoking about half a pack a day. Drinking alcohol for years. Stopped for a short time. At about 2.3 beers a day. Physical examination: VITAL SIGNS: 97.6, 92, 1 29 x 70, 96% room air GENERAL: He planning in bed, awake, some short of breath. EYES: Pupils equal. Conjunctiva normal. HEENT: External appearance of nose and ears normal, oral cavity grossly normal. NECK: JVD raised; masses not palpable. HEART: First and second heart sounds are normal; significant edema. LUNGS: Respiratory rate increased; decreased breath sounds, prolonged expiration ABDOMEN: Soft, distended, nontender, liver spleen not palpable, no masses palpable. divarification of recti PSYCH: Alert and oriented x3; mood and affect anxiousl. MUSCULOSKELETAL:No Clubbing/cyanosis;muscles-grossly intact. No evidence of OA INVESTIGATIONS, reviewed in the clinical context: November 26: Sodium 136 potassium 4. BUN 30 creatinine 1.09 White count 6.6 hemoglobin 12.8 platelets 288 sodium 137 potassium 3.9 creatinine 0.94 ProBNP 781 troponin I 0.019, 0.023 EKG tracing personally reviewed by me-atrial fibrillation. Rate 119 Chest x-ray film personally reviewed by me-hyperinflation. Some venous prominence. Possible infiltrates 2-D echocardiogram: Moderate concentric LVH. EF 35-40%. Right ventricular moderately enlarged. Assessment and plan: -Acute congestive heart failure exacerbation from systolic and diastolic dysfunction EF 35-40% Changed to by mouth Lasix. Fluid restriction. - chronic pancreatitis from alcoholism: -Acute COPD exacerbation in a cigarette smoker,: Slow to respond DuoNeb 4 times a day, Pulmicort 1 mg twice a day, -Alcohol-induced cirrhosis: New diagnosis *Aldactone 50 mg twice a day -New onset of atrial fibrillation rate uncontrolled. Increase Lopressor 50 mg 3 times a day. Eliquis. -Chronic nicotine dependence, cigarette smoker Nicotine patch 14 -Chronic fibromyalgia Flexeril 10 mg 3 times a day -Essential hypertension Zestril 20 mg a day. Lopressor 50 mg 3 times a day a day -Primary osteoarthritis, multiple joints bilaterally Pain medications as needed -Alcoholic peripheral neuropathy -restless leg syndrome Requip mg daily at bedtime -Alvarenga's esophagus Protonix 40 mg twice a day -Alcohol use disorder counseled Change Lasix to by mouth to 40 mg twice a day. Add Aldactone 50 mg twice a day. Continue fluid restriction. Lopressor increased to 50 g 3 times a day. Continue with bronchodilators steroids. Follow labs
[2021-11-26 16:37] LABS: Glucose,Whole Blood 219 mg/dL (75-99)
[2021-11-26] MEDS: FUROSEMIDE 40 MG TAB PO SCH (16:57)
[2021-11-26] MEDS: rOPINIRole HCL 4 MG TABLET PO SCH (19:51)
[2021-11-26] MEDS: LATANOPROST 0.005% OPHTH DROPS 2.5 ML BTL BOTH EYES SCH (19:52)
[2021-11-26 20:59] LABS: Glucose,Whole Blood 304 mg/dL (75-99)
[2021-11-26] MEDS ORDERED: SPIRONOLACTONE 25 MG TAB PO SCH (21:00)
[2021-11-27 00:04] VITALS: RESP 18
[2021-11-27] MEDS: oxyCODONE-APAP 10-325MG 1 EACH TAB PO PRN ×2 (04:12→12:13)
[2021-11-27] MEDS: INSULIN ASPART (NovoLOG) 100 UNIT/ML VIAL SQ SCH ×2 (06:17→12:13)
[2021-11-27 06:23] LABS: Glucose,Whole Blood 211 mg/dL (75-99)
[2021-11-27] MEDS: BUDESONIDE 1 MG/2 ML NEBU INHALATION SCH (08:00)
[2021-11-27] MEDS: IPRATROPIUM-ALBUTEROL 3 ML NEB INHALATION SCH ×2 (08:00→11:32)
[2021-11-27] MEDS: methylPREDNISolone SOD SUCCI 40 MG/ML 1 ML VIAL IV SCH (08:50)
[2021-11-27] MEDS: CYCLOBENZAPRINE 10 MG TAB PO SCH (08:50)
[2021-11-27] MEDS: APIXABAN 5 MG TAB PO SCH (08:50)
[2021-11-27] MEDS: FUROSEMIDE 40 MG TAB PO SCH (08:50)
[2021-11-27] MEDS: METOPROLOL TARTRATE 50 MG TAB PO SCH (08:51)
[2021-11-27] MEDS: NICOTINE 14MG/24HR PATCH TRANSDERM SCH (08:51)
[2021-11-27] MEDS ORDERED: SPIRONOLACTONE 25 MG TAB PO SCH (09:00)
[2021-11-27 09:27] LABS: Calcium 8.8 mg/dL (8.4-10.2)
--- NOTE | 2021-11-27 10:23 | PN ---
PROGRESS NOTE Mr. Herrera has new-onset atrial fibrillation and heart failure. His rate is much better controlled with increase in beta blockers. Vitals are stable. No JVD. S1-S2 heard normally. Irregular rate and rhythm noted. Lungs reveal diminished air entry. Abdomen is soft, nontender. Lower extremities reveal normal pulses. No edema. Central nervous system is normal. Plan is to continue current medications, including anticoagulation, discharge him, and he will see Dr. Avila in one week and electrical cardioversion in 3 to 4 weeks. Discussed my thoughts in detail with the patient. MMODL / IJN: [id number] /
[2021-11-27 11:40] LABS: Glucose,Whole Blood 281 mg/dL (75-99)
[2021-11-27] MEDS: PANTOPRAZOLE 40 MG TABLET PO SCH (11:56)
[2021-11-27] MEDS: TAMSULOSIN 0.4 MG CAP.ER.24H PO SCH (11:56)
[2021-11-27] MEDS: LORATADINE 10 MG TAB PO SCH (11:56)
[2021-11-27] MEDS: lisinopriL 20 MG TAB PO SCH (11:56)
[2021-11-27] MEDS: MONTELUKAST 10 MG TAB PO SCH (11:56)
[2021-11-27 12:53] VITALS: BP 124/68; PULSE 102; TEMP 98
--- NOTE | 2021-11-27 20:27 | P.DS ---
Providers Date of admission: 11/24/21 18:19 Expected date of discharge: 11/27/21 Attending physician: Jamal Tamayo Consults: 11/24/21 18:18 Consult Physician Routine Consulting Provider: Hemal Avila Consult Reason/Comments: CHF, afib Do you want consulting provider notified?: Yes Primary care physician: Albert Kathy [facility] Course: Chief Complaint: Short of breath History of presenting complaint: This is a [address] Chavez. Chronic stable medical conditions include COPD, fibromyalgia, hypertension, osteoarthritis, chronic pancreatitis from alcoholism, peripheral neuropathy varicose veins, restless leg syndrome, BPH surgery, Alvarenga's esophagus and chronic low back pain from osteoarthritis. Patient presents with progressive increasing shortness of breath. Abdominal distention. Edema. Wheezing. Cough. Denies any fever and chills. Appetite is fair. No change in bowel habit. Patient continues to smoke about half a pack a day and 2-3 beers a day. Feels tired rundown. Admitted with acute CHF exacerbation with low EF. Also fluid overload from cirrhosis. IV Lasix. Aldactone. Over 3500 mL negative fluid balance. Atrial fibrillation uncontrolled. Dose of metoprolol increased. eliquis. Abdominal ultrasound did confirm cirrhosis. Alcohol induced. Today: Edema significant cone-down. Eating better. Discussed at length with the patient about alcohol and smoking. Discharged home on by mouth Lasix and Aldactone. Eliquis dose adjusted because of cirrhosis. The patient follow up with GI outpatient. Questions answered Social history: Patient lives with his sister Scott May sometime uses a cane. Smoked for close to 42 years. Smoking about half a pack a day. Drinking alcohol for years. Stopped for a short time. At about 2.3 beers a day. Physical examination: VITAL SIGNS: 98, 100, 18, 124/68, 98% room air GENERAL: Sitting up bed, awake, comfortable EYES: Pupils equal. Conjunctiva normal. HEENT: External appearance of nose and ears normal, oral cavity grossly normal. NECK: JVD raised; masses not palpable. HEART: Irregular; decreased edema. LUNGS: Respiratory rate normal; decreased breath sounds, ABDOMEN: Soft, less distended, nontender, liver spleen not palpable, no masses palpable. divarification of recti PSYCH: Alert and oriented x3; mood and affect anxiousl. MUSCULOSKELETAL:No Clubbing/cyanosis;muscles-grossly intact. No evidence of OA INVESTIGATIONS, reviewed in the clinical context: Abdominal ultrasound: Evidence of cirrhosis November 27: Sodium 135 potassium 4 creatinine 1.11 November 26: Sodium 136 potassium 4. BUN 30 creatinine 1.09 White count 6.6 hemoglobin 12.8 platelets 288 sodium 137 potassium 3.9 creatinine 0.94 ProBNP 781 troponin I 0.019, 0.023 EKG tracing personally reviewed by me-atrial fibrillation. Rate 119 Chest x-ray film personally reviewed by me-hyperinflation. Some venous prominence. Possible infiltrates 2-D echocardiogram: Moderate concentric LVH. EF 35-40%. Right ventricular moderately enlarged. Assessment and plan: -Acute congestive heart failure exacerbation from systolic and diastolic dysfunction EF 35-40%: Better Lasix 40 mg by mouth twice a day. Aldactone 50 mg day. Fluid restriction. - chronic pancreatitis from alcoholism: -Acute COPD exacerbation in a cigarette smoker,: Better Symbicort 160/4.52 puffs twice a day., -Alcohol-induced cirrhosis: New diagnosis *Aldactone 50 mg a day. Low-salt diet. -New onset of atrial fibrillation rate controlled. Lopressor 50 mg 3 times a day. Eliquis 2.5 mg twice a day. -Chronic nicotine dependence, cigarette smoker Nicotine patch 14 -Chronic fibromyalgia Flexeril 10 mg 3 times a day -Essential hypertension Zestril 20 mg a day. Lopressor 50 mg 3 times a day a day -Primary osteoarthritis, multiple joints bilaterally Pain medications as needed -Alcoholic peripheral neuropathy -restless leg syndrome Requip 4 mg daily at bedtime -Alvarenga's esophagus Protonix 40 mg twice a day -Alcohol use disorder counseled Disposition: Home Plan - Discharge Summary Discharge Rx Participant: No New Discharge Prescriptions: New Furosemide [Lasix] 40 mg PO BID@0900,1600 60 Days #120 tab Spironolactone [Aldactone] 50 mg PO DAILY #30 tab Apixaban [Eliquis] 2.5 mg PO BID #60 tab Metoprolol Tartrate [Lopressor] 50 mg PO TID 60 Days #180 tab Nicotine 14Mg/24Hr Patch [Habitrol] 1 patch TRANSDERM DAILY #14 patch predniSONE 10 mg PO DAILY #30 tab Budesonide-Formot 160-4.5 Mcg [Symbicort 160-4.5 Mcg Inhaler] 2 puff INHALATION BID #10.2 gm Continue lisinopriL [Zestril] 20 mg PO DAILY@1200 Montelukast [Singulair] 10 mg PO DAILY@1200 Omeprazole 20 mg PO DAILY@1200 Fluticasone Nasal [place] [Flonase Nasal [place]] 2 spr EA NOSTRIL DAILY PRN PRN Reason: Allergy Symptoms Latanoprost Ophth [Xalatan 0.005%] 1 drops BOTH EYES HS Tamsulosin [Flomax] 0.4 mg PO DAILY@1200 Cyclobenzaprine [Flexeril] 10 mg PO TID oxyCODONE-APAP 10-325MG [Percocet 10-325 mg] 1 tab PO Q8HR PRN PRN Reason: Pain rOPINIRole HCL [Requip] 4 mg PO HS Budesonide/Formoterol Fumarate [Symbicort 80-4.5 Mcg Inhaler] 1 puff INHALATION RT-BID Loratadine [Claritin] 10 mg PO DAILY@1200 Discontinued amLODIPine [Norvasc] 10 mg PO DAILY@1200 Warfarin [Coumadin] 2.5 mg PO DAILY@1200 Furosemide [Lasix] 20 mg PO DAILY@1200 Discharge Medication List lisinopriL [Zestril] 20 mg PO DAILY@1200 06/28/16 [History] Montelukast [Singulair] 10 mg PO DAILY@1200 01/12/18 [History] Omeprazole 20 mg PO DAILY@1200 02/08/20 [History] Fluticasone Nasal [place] [Flonase Nasal [place]] 2 spr EA NOSTRIL DAILY PRN 07/02/20 [History] Budesonide/Formoterol Fumarate [Symbicort 80-4.5 Mcg Inhaler] 1 puff INHALATION RT-BID 11/08/21 [History] Latanoprost Ophth [Xalatan 0.005%] 1 drops BOTH EYES HS 11/08/21 [History] Tamsulosin [Flomax] 0.4 mg PO DAILY@1200 11/08/21 [History] rOPINIRole HCL [Requip] 4 mg PO HS 11/08/21 [History] Cyclobenzaprine [Flexeril] 10 mg PO TID 11/24/21 [History] Loratadine [Claritin] 10 mg PO DAILY@1200 11/24/21 [History] oxyCODONE-APAP 10-325MG [Percocet 10-325 mg] 1 tab PO Q8HR PRN 11/24/21 [History] Furosemide [Lasix] 40 mg PO BID@0900,1600 60 Days #120 tab 11/26/21 [Rx] Metoprolol Tartrate [Lopressor] 50 mg PO TID 60 Days #180 tab 11/26/21 [Rx] Apixaban [Eliquis] 2.5 mg PO BID #60 tab 11/27/21 [Rx] Budesonide-Formot 160-4.5 Mcg [Symbicort 160-4.5 Mcg Inhaler] 2 puff INHALATION BID #10.2 gm 11/27/21 [Rx] Nicotine 14Mg/24Hr Patch [Habitrol] 1 patch TRANSDERM DAILY #14 patch 11/27/21 [Rx] Spironolactone [Aldactone] 50 mg PO DAILY #30 tab 11/27/21 [Rx] predniSONE 10 mg PO DAILY #30 tab 11/27/21 [Rx] Follow up Appointment(s)/Referral(s): Laverne Avila MD [STAFF PHYSICIAN] - 3 Weeks (cirrhosis, office closed, please call to schedule) Albert Chavez MD [Primary Care Provider] - 1-2 days (office closed, please call to schedule) Hemal Avila MD [STAFF PHYSICIAN] - 1 Week (office closed, please call to schedule) Patient Instructions/Handouts: Apixaban (By mouth), A-fib (Atrial Fibrillation) (ED) Activity/Diet/Wound Care/Special Instructions: fluid restrict strict 2000 cc/day Discharge Disposition: HOME SELF-CARE
== END 2021-11-27 15:03 | disposition home or self-care (01) | DRG 292 ==
LOC: EC 14:20 → 3SCARD 18:19
PROVIDERS: ADMIT Hospitalist; ATTEND Hospitalist
DX: I50.43 Acute on chronic combined systolic (congestive) and diastolic (congestive) heart failure (principal); I42.9 Cardiomyopathy, unspecified; J44.1 Chronic obstructive pulmonary disease with (acute) exacerbation; K86.0 Alcohol-induced chronic pancreatitis; E78.5 Hyperlipidemia, unspecified; F10.20 Alcohol dependence, uncomplicated; F17.210 Nicotine dependence, cigarettes, uncomplicated; F32.A Depression, unspecified; F41.9 Anxiety disorder, unspecified; G25.81 Restless legs syndrome; G62.1 Alcoholic polyneuropathy; G89.29 Other chronic pain; I11.0 Hypertensive heart disease with heart failure; I25.10 Atherosclerotic heart disease of native coronary artery without angina pectoris; I25.2 Old myocardial infarction; I27.20 Pulmonary hypertension, unspecified; I35.1 Nonrheumatic aortic (valve) insufficiency; I48.0 Paroxysmal atrial fibrillation; I83.90 Asymptomatic varicose veins of unspecified lower extremity; K22.70 Barrett's esophagus without dysplasia; K70.30 Alcoholic cirrhosis of liver without ascites; M19.91 Primary osteoarthritis, unspecified site; M79.7 Fibromyalgia; N40.0 Benign prostatic hyperplasia without lower urinary tract symptoms; Z79.01 Long term (current) use of anticoagulants; Z79.51 Long term (current) use of inhaled steroids; Z82.3 Family history of stroke; Z79.899 Other long term (current) drug therapy; Z82.49 Family history of ischemic heart disease and other diseases of the circulatory system; Z82.5 Family history of asthma and other chronic lower respiratory diseases; Z83.3 Family history of diabetes mellitus; Z96.651 Presence of right artificial knee joint
CPT/HCPCS: 36415; 71046; 76700; 76705; 80048; 80053; 83605; 83735; 83880; 84145; 84484; 85025; 85610; 85730; 93005; 93306; 94640; 94760; 96374; 99285

== ENCOUNTER → 2021-12-08 | Outpatient (CLI) | payer OTHER ==
--- NOTE | 2021-12-08 14:06 | XR ---
EXAMINATION TYPE: XR cervical spine comp DATE OF EXAM: 12/08/2021 TECHNIQUE: Frontal, lateral, oblique, and open mouth view of the cervical spine are obtained. HISTORY: M54.2 cervicalgia left-sided neck pain for 1.5 weeks COMPARISON: Cervical spine x-ray December 23, 2015 FINDINGS: The cervical spine is visualized in its entirety from C1 thru the top of T1 level, slight grade 1 anterolisthesis C3 on C4 is little less prominent versus prior. The pre-vertebral soft tissu e remained stable and within normal limits. The C1-C2 articulation is within normal limits on the op en mouth view. Vertebral body heights are preserved. Persistent mild to moderate disc space narrowin g and mild anterior spurring C4-C5 level. Persistent moderate disc space narrowing and anterior spurr ing C5-C6 level. Persistent moderate disc space narrowing with moderate to severe anterior spurring C 6-C7 level. Persistent mild to moderate disc space narrowing and mild anterior spurring C7-T1 level T he oblique images are within normal limits. Mild to moderate right-sided carotid bulb calcification is redemonstrated. IMPRESSION: As above.
== END | disposition home or self-care (01) ==
LOC: RADXRMAIN 12:48
PROVIDERS: ATTEND Physician Assistant
DX: M54.2 Cervicalgia (principal)
CPT/HCPCS: 72050

== ENCOUNTER 2021-12-11 07:07 | Emergency (ER) | payer OTHER ==
[2021-12-11 07:12] VITALS: TEMP 98.6
[2021-12-11] MEDS ORDERED: MORPHINE SULFATE 4 MG/ML SYRINGE IV STA (07:55)
[2021-12-11 08:12] LABS: Basophils # (A) 0.1 k/uL (0-0.2); Basophils % (A) 1 %; Eosinophils # (A) 0.2 k/uL (0-0.7); Eosinophils % (A) 2 %; HCT 42.3 % (39.0-53.0); HGB 13.6 gm/dL (13.0-17.5); Lymphocytes # (A) 1.9 k/uL (1.0-4.8); Lymphocytes % (A) 19 %; MCH 30.9 pg (25.0-35.0); MCHC 32.2 g/dL (31.0-37.0); MCV 96.2 fL (80.0-100.0); Mean Platelet Volume 7.2; Monocytes # (A) 0.7 k/uL (0-1.0); Monocytes % (A) 7 %; Neutrophils # (A) 7.1 k/uL (1.3-7.7); Neutrophils % (A) 70 %; Platelet Count 277 k/uL (150-450); RBC 4.39 m/uL (4.30-5.90); RDW 13.4 % (11.5-15.5); WBC 10.1 k/uL (3.8-10.6)
[2021-12-11 08:35] LABS: Albumin 3.7 g/dL (3.5-5.0); Calcium 9.1 mg/dL (8.4-10.2); Potassium 5.1 mmol/L (3.5-5.1); Total Bilirubin 0.4 mg/dL (0.2-1.3); Total Protein 6.4 g/dL (6.3-8.2)
[2021-12-11] MEDS ORDERED: DIAZEPAM 5 MG/ML 2 ML INJ IVP STA (08:47)
--- NOTE | 2021-12-11 09:18 | ED ---
General Adult HPI - General Chief complaint: Extremity Problem,Nontraumatic Stated complaint: leg pain Time Seen by Provider: 12/11/21 07:50 Source: patient, EMS, RN notes reviewed, old records reviewed Mode of arrival: EMS Limitations: no limitations - History of Present Illness Initial comments: 61-year-old male presents to the emergency room with complaints of bilateral lower leg cramping. Patient states that his electrolytes may be off because he is taking Lasix and spironolactone. He states that Percocet has not been helping him and he needs something for the pain. Patient denies any chest pain difficulty breathing or fevers. Location: left, right, lower extremity (lower legs) Radiation: non-radiation Quality: other (cramping) Consistency: constant Improves with: none Worsens with: movement Associated Symptoms: denies other symptoms Treatments Prior to Arrival: none - Related Data Home Medications Medication Instructions Recorded Confirmed lisinopriL [Zestril] 20 mg PO DAILY@1200 06/28/16 11/24/21 Montelukast [Singulair] 10 mg PO DAILY@1200 01/12/18 11/24/21 Omeprazole 20 mg PO DAILY@1200 02/08/20 11/24/21 Fluticasone Nasal Logan [Flonase 2 spr EA NOSTRIL DAILY PRN 07/02/20 11/24/21 Nasal Logan] Budesonide/Formoterol Fumarate 1 puff INHALATION RT-BID 11/08/21 11/24/21 [Symbicort 80-4.5 Mcg Inhaler] Latanoprost Ophth [Xalatan 0.005%] 1 drops BOTH EYES 11/08/21 11/24/21 Tamsulosin [Flomax] 0.4 mg PO DAILY@1200 11/08/21 11/24/21 rOPINIRole HCL [Requip] 4 mg PO 11/08/21 11/24/21 Cyclobenzaprine [Flexeril] 10 mg PO TID 11/24/21 11/24/21 Loratadine [Claritin] 10 mg PO DAILY@1200 11/24/21 11/24/21 oxyCODONE-APAP 10-325MG [Percocet 1 tab PO Q8HR PRN 11/24/21 11/24/21 10-325 mg] Previous Rx's Medication Instructions Recorded Furosemide [Lasix] 40 mg PO BID@0900,1600 60 Days 11/26/21 #120 tab Metoprolol Tartrate [Lopressor] 50 mg PO TID 60 Days #180 tab 11/26/21 Apixaban [Eliquis] 2.5 mg PO BID #60 tab 11/27/21 Budesonide-Formot 160-4.5 Mcg 2 puff INHALATION BID #10.2 gm 11/27/21 [Symbicort 160-4.5 Mcg Inhaler] Nicotine 14Mg/24Hr Patch [Habitrol] 1 patch TRANSDERM DAILY #14 patch 11/27/21 Spironolactone [Aldactone] 50 mg PO DAILY #30 tab 11/27/21 predniSONE 10 mg PO DAILY #30 tab 11/27/21 Allergies Allergy/AdvReac Type Severity Reaction Status Date / Time pregabalin [From Lyrica] Allergy Swelling Verified 12/11/21 07:12 amoxicillin trihydrate AdvReac Rapid Verified 12/11/21 07:12 [From Augmentin] Heart Rate potassium clavulanate AdvReac FELT LIKE Verified 12/11/21 07:12 [From Augmentin] HE WAS GOING TO PASS OUT FAST HEARTBEAT" Review of Systems ROS Statement: Those systems with pertinent positive or pertinent negative responses have been documented in the HPI. ROS Other: All systems not noted in ROS Statement are negative. Past Medical History Past Medical History: Coronary Artery Disease (CAD), COPD, Eye Disorder, Fibromyalgia, Hypertension, Myocardial Infarction ([place]), Osteoarthritis (OA), Prostate Disorder, Vascular Disorder Additional Past Medical History / Comment(s): Patient states did not have [place] was a valve issue. Chronic cough, chronic pancreatitis, past alcohol abuse-pt states occasionally now, bilateral eye glaucoma, neuropathy bilateral feet, poor ci rculation to legs, varicose veins, RLS, BPH with surgery, colitis, gastritis, Alvarenga's esophagus, shingles in 2013 and states joint pain since, chronic low back pain, DDD. Last Myocardial Infarction Date:: 09/02/16 History of Any Multi-Drug Resistant Organisms: None Reported Past Surgical History: Appendectomy, Heart Catheterization, Joint Replacement, Orthopedic Surgery, Prostate Surgery Additional Past Surgical History / Comment(s): Right knee arthroscopy for torn meniscus, right knee replacement, EGD, colonoscopy, TURP. Past Anesthesia/Blood Transfusion Reactions: No Reported Reaction Past Psychological History: Anxiety, Depression Smoking Status: Former smoker Additional Past Alcohol Use History / Comment(s): Started smoking at age 13, quit smoking 10/2016, but has an occasional cigarette or 2 in a week. Pt has hx of alcohol abuse but states now he drinks on occasion only. (06/20/2019) - pt states he has been using nicotine patches to help stop smoking, has been recently trying to stop. (02/08/2020) patient still smoking weekly - Past Family History Father Family Medical History: CVA/TIA, Hypertension Additional Family Medical History / Comment(s): Father at the age of 38yrs from HTN/CVA. He was an alcoholic. Mother Family Medical History: COPD, Diabetes Mellitus Additional Family Medical History / Comment(s): Mother of emphysema at the age of 74 yrs (2003), mom had hx of drinking and smoking. General Exam Limitations: no limitations General appearance: alert, in no apparent distress Head exam: Present: atraumatic Respiratory exam: Present: normal lung sounds bilaterally. Absent: accessory muscle use Cardiovascular Exam: Present: regular rate GI/Abdominal exam: Present: soft, distended. Absent: tenderness (history of ascites) Extremities exam: Present: full ROM, tenderness, normal capillary refill. Absent: pedal edema Neurological exam: Present: alert, oriented X3 Psychiatric exam: Present: normal affect, normal mood Skin exam: Present: warm, dry. Absent: cyanosis, diaphoretic, pallor Course Vital Signs 12/11/21 12/11/21 12/11/21 07:08 07:11 09:28 Temperature 98.6 F Pulse Rate 95 91 Pulse Rate [ 122 H Pulse Oximetery ] Respiratory 16 16 Rate Blood Pressure 144/83 138/78 O2 Sat by Pulse 94 L 95 Oximetry 12/11/21 10:12 Temperature Pulse Rate 92 Pulse Rate [ Pulse Oximetery ] Respiratory 18 Rate Blood Pressure 140/78 O2 Sat by Pulse 94 L Oximetry Medical Decision Making - Medical Decision Making There is no evidence of leukocytosis hemoglobin and hematocrit are stable. Electrolytes are unchanged from previous visits. Patient was given morphine and Valium for his muscle cramps. There is no concern for DVT. Legs are warm and dry with good capillary refill. He was instructed to continue his previously prescribed Percocets for pain and follow-up with his primary care doctor for continuation of care. - Lab Data Result diagrams: 12/11/21 08:02 12/11/21 08:02 Lab Results 12/11/21 12/11/21 Range/Units 08:02 08:02 WBC 10.1 (3.8-10.6) k/uL RBC 4.39 (4.30-5.90) m/uL Hgb 13.6 (13.0-17.5) gm/dL Hct 42.3 (39.0-53.0) % MCV 96.2 (80.0-100.0) fL MCH 30.9 (25.0-35.0) pg MCHC 32.2 (31.0-37.0) g/dL RDW 13.4 (11.5-15.5) % Plt Count 277 (150-450) k/uL MPV 7.2 Neutrophils % 70 % Lymphocytes % 19 % Monocytes % 7 % Eosinophils % 2 % Basophils % 1 % Neutrophils # 7.1 (1.3-7.7) k/uL Lymphocytes # 1.9 (1.0-4.8) k/uL Monocytes # 0.7 (0-1.0) k/uL Eosinophils # 0.2 (0-0.7) k/uL Basophils # 0.1 (0-0.2) k/uL Sodium 131 L (137-145) mmol/L Potassium 5.1 (3.5-5.1) mmol/L Chloride 99 (98-107) mmol/L Carbon Dioxide 25 (22-30) mmol/L Anion Gap 7 mmol/L BUN 55 H (9-20) mg/dL Creatinine 1.33 H (0.66-1.25) mg/dL Est GFR (CKD-EPI)AfAm 67 (>60 ml/min/1.73 sqM) Est GFR (CKD-EPI)NonAf 58 (>60 ml/min/1.73 sqM) Glucose 134 H (74-99) mg/dL Calcium 9.1 (8.4-10.2) mg/dL Total Bilirubin 0.4 (0.2-1.3) mg/dL AST 21 (17-59) U/L ALT 31 (4-49) U/L Alkaline Phosphatase 64 (38-126) U/L Total Protein 6.4 (6.3-8.2) g/dL Albumin 3.7 (3.5-5.0) g/dL Disposition Clinical Impression: Leg pain Disposition: HOME SELF-CARE Condition: Good Instructions (If sedation given, give patient instructions): Leg Cramps (ED) Additional Instructions: Increase your fluid intake. Follow-up with the primary care doctor next week. Return to the emergency room with any new or concerning symptoms including inability to ambulate, increased pain, numbness and tingling. Is patient prescribed a controlled substance at d/c from ED?: No Referrals: Albert Chavez MD [Primary Care Provider] - 1-2 days Time of Disposition: 09:28
[2021-12-11 10:12] VITALS: BP 140/78; PULSE 92; RESP 18
== END 2021-12-11 10:12 | disposition home or self-care (01) ==
LOC: EC 07:07
DX: M79.661 Pain in right lower leg (principal); M79.662 Pain in left lower leg; I10 Essential (primary) hypertension; I25.10 Atherosclerotic heart disease of native coronary artery without angina pectoris; J44.9 Chronic obstructive pulmonary disease, unspecified; K21.9 Gastro-esophageal reflux disease without esophagitis; Z79.899 Other long term (current) drug therapy; I25.2 Old myocardial infarction; Z87.891 Personal history of nicotine dependence; Z88.0 Allergy status to penicillin; Z88.8 Allergy status to other drugs, medicaments and biological substances; Z88.1 Allergy status to other antibiotic agents
CPT/HCPCS: 99283; 96374; 96375; 36415; 80053; 85025; J2270; J3360

== ENCOUNTER 2022-01-03 06:43 | Day surgery (SDC) | payer OTHER ==
[2021-12-31 10:41] VITALS: BMI 31.1
[~2022-01-03 06:43] MED LIST changes: -LIDOCAINE 1% 20 ML VIAL (10MG/ML) FOR IV START INTRADERMA PRN; +SODIUM CHLORIDE 0.9% 1,000 ML IV SCH
[2022-01-03] MEDS ORDERED: SODIUM CHLORIDE 0.9% 500 ML 500 ML IV ONE (07:08)
[2022-01-03 07:28] VITALS: TEMP 98
[2022-01-03] MEDS ORDERED: PROPOFOL 10 MG/ML 20 ML VIAL IV ONE (08:20)
[2022-01-03] MEDS ORDERED: LIDOCAINE 2% INJ 20 MG/ML (2 ML VIAL) ONE (08:20)
[2022-01-03 08:48] VITALS: RESP 16
[2022-01-03 10:22] VITALS: BP 117/82; PULSE 72
--- NOTE | 2022-01-03 11:14 | ECHOT ---
TRANSESOPHAGEAL ECHOCARDIOGRAM TRANSESOPHAGEAL ECHOCARDIOGRAM: INDICATION: Persistent atrial fibrillation. PROCEDURE NOTE: After obtaining informed consent, transesophageal echocardiogram was performed in left lateral position using an Omniplane probe. Local and IV sedation were obtained by the nurse executive. The patient tolerated the procedure well without any obvious immediate complications. Patient underwent 2D, color Doppler and spectral analysis. FINDINGS: 1. There is no intracardiac thrombus within the left atrial appendage, left atrium, right atrium, right ventricle or left ventricle. 2. Left atrium appears severely enlarged. 3. Right atrium appears mildly enlarged. 4. Right ventricle has normal size and function. 5. Left ventricle appears dilated with diffuse global hypokinesis and severe LV dysfunction with an ejection fraction of around 35%. 6. Mitral valve is anatomically normal. There is mild to moderate central mitral regurgitation noted. 7. Aortic valve is a 3-leaflet valve. There is mild to moderate aortic regurgitation noted. 8. There is mild to moderate tricuspid regurgitation noted. 9. Interatrial septum: There is no evidence of [id number] shunt by color-flow Doppler or [id number] shunt by agitated saline contrast study. CONCLUSIONS: 1. No intracardiac thrombus. 2. Severe LV dysfunction. 3. Severe left atrial enlargement. MMODL / IJN: [id number] /
--- NOTE | 2022-01-03 11:53 | PCN ---
PROCEDURE NOTE CARDIOVERSION NOTE: INDICATION: Persistent atrial fibrillation. PROCEDURE DESCRIPTION: After obtaining informed consent, cardioversion was performed using 120 joules of synchronized DC current. Patient converted to sinus rhythm following a single shock. He was adequately anticoagulated by Eliquis. He was anesthetized by the ethnographer and we ensured that there was no thrombus with a MANN. CRISTA / TONYN: [id number] /
== END 2022-01-03 10:22 | disposition home or self-care (01) ==
LOC: CATHCVL 06:43
PROVIDERS: ATTEND Internal Medicine Cardiovascular Disease
DX: I48.19 Other persistent atrial fibrillation (principal); I42.8 Other cardiomyopathies; I11.0 Hypertensive heart disease with heart failure; I50.22 Chronic systolic (congestive) heart failure; I25.10 Atherosclerotic heart disease of native coronary artery without angina pectoris; I71.2 Thoracic aortic aneurysm, without rupture; I35.1 Nonrheumatic aortic (valve) insufficiency; J44.9 Chronic obstructive pulmonary disease, unspecified; K22.70 Barrett's esophagus without dysplasia; K74.60 Unspecified cirrhosis of liver; M19.90 Unspecified osteoarthritis, unspecified site; F17.210 Nicotine dependence, cigarettes, uncomplicated; I73.9 Peripheral vascular disease, unspecified; N40.0 Benign prostatic hyperplasia without lower urinary tract symptoms; G25.81 Restless legs syndrome; F41.9 Anxiety disorder, unspecified; F32.A Depression, unspecified; M79.7 Fibromyalgia; Z79.01 Long term (current) use of anticoagulants; Z79.899 Other long term (current) drug therapy; Z88.0 Allergy status to penicillin; Z88.8 Allergy status to other drugs, medicaments and biological substances; Z97.2 Presence of dental prosthetic device (complete) (partial); Z82.3 Family history of stroke
CPT/HCPCS: 93312; 93320; 93325; 92960; J2704; J2001

== ENCOUNTER → 2022-03-16 | Outpatient (CLI) | payer OTHER ==
[2022-03-16 15:00] LABS: Basophils # (A) 0.07 X 10*3/uL (0.00-0.10); Eosinophils # (A) 0.15 X 10*3/uL (0.04-0.35); Eosinophils % (A) 2.1 %; HCT 37.2 % (39.6-50.0); HGB 11.9 g/dL (13.0-17.0); Immature Grans, Automated 0.8 %; Lymphocytes # (A) 2.12 X 10*3/uL (0.90-5.00); Lymphocytes % (A) 29.1 %; MCH 30.7 pg (27.0-32.0); MCV 95.9 fL (80.0-97.0); Mean Platelet Volume 9.7 fL (9.5-12.2); Monocytes # (A) 0.71 X 10*3/uL (0.20-1.00); Monocytes % (A) 9.7 %; NRBC Per 100 WBC 0 /100 WBCS (0.0-0.0); Neutrophils # (A) 4.18 X 10*3/uL (1.80-7.70); Neutrophils % (A) 57.3 %; Platelet Count 304 X 10*3/uL (140-440); RBC 3.88 X 10*6/uL (4.40-5.60); WBC 7.29 X 10*3/uL (4.50-10.00)
[2022-03-16 16:27] LABS: African American GFR (CKD) 34.2 (60.0-200.0); Albumin 4.1 g/dL (3.8-4.9); Albumin/Globulin Ratio 1.41 (1.60-3.17); Anion Gap 14.3 mmol/L (10.00-18.00); BUN/Creat Ratio 27.13 Ratio (12.00-20.00); Blood Urea Nitrogen 62.4 mg/dL (9.0-27.0); Calcium 9.5 mg/dL (8.7-10.3); Carbon Dioxide 23.7 mmol/L (20.0-27.5); Globulin 2.9 g/dL (1.6-3.3); Non-African American GFR(CKD) 29.5 (60.0-200.0); Potassium 4.9 mmol/L (3.5-5.5); Total Bilirubin 0.3 mg/dL (0.30-1.20)
== END | disposition home or self-care (01) ==
LOC: LABWHC1 09:26
PROVIDERS: ATTEND Internal Medicine Gastroenterology
DX: K70.30 Alcoholic cirrhosis of liver without ascites (principal)
CPT/HCPCS: 36415; 80053; 82105; 85025

== ENCOUNTER → 2022-03-29 | Outpatient (CLI) | payer OTHER ==
[2022-03-29 19:00] LABS: African American GFR (CKD) 83.5 (60.0-200.0); Anion Gap 10.9 mmol/L (10.00-18.00); BUN/Creat Ratio 18.73 Ratio (12.00-20.00); Blood Urea Nitrogen 20.6 mg/dL (9.0-27.0); Calcium 9.3 mg/dL (8.7-10.3); Carbon Dioxide 19.1 mmol/L (20.0-27.5); Non-African American GFR(CKD) 72.1 (60.0-200.0); Potassium 4.6 mmol/L (3.5-5.5)
== END | disposition home or self-care (01) ==
LOC: LABWHC1 13:00
PROVIDERS: ATTEND Internal Medicine Gastroenterology
DX: R79.89 Other specified abnormal findings of blood chemistry (principal)
CPT/HCPCS: 36415; 80048

== ENCOUNTER 2022-04-11 15:45 | Inpatient (IN) | payer OTHER ==
[2022-04-11] MEDS ORDERED: ASPIRIN 81 MG PO STA (16:26)
[2022-04-11] MEDS ORDERED: DILTIAZEM DRIP BOLUS FROM BAG 1 MG SOLN IV ONE (16:26)
[2022-04-11] MEDS ORDERED: FUROSEMIDE 10 MG/ML 4 ML VIAL IV STA (16:27)
[2022-04-11 16:40] LABS: Basophils % (A) 1 %; Eosinophils # (A) 0.1 k/uL (0-0.7); Eosinophils % (A) 2 %; HCT 38.1 % (39.0-53.0); HGB 11.9 gm/dL (13.0-17.5); Hypochromasia Slight; Lymphocytes # (A) 1.4 k/uL (1.0-4.8); Lymphocytes % (A) 25 %; MCH 30.2 pg (25.0-35.0); MCHC 31.3 g/dL (31.0-37.0); MCV 96.6 fL (80.0-100.0); Mean Platelet Volume 7.1; Monocytes # (A) 0.4 k/uL (0-1.0); Monocytes % (A) 7 %; Neutrophils # (A) 3.6 k/uL (1.3-7.7); Neutrophils % (A) 63 %; Platelet Count 280 k/uL (150-450); RBC 3.95 m/uL (4.30-5.90); RDW 14.1 % (11.5-15.5); WBC 5.8 k/uL (3.8-10.6)
[2022-04-11 16:48] LABS: INR 0.9 (<1.2); Partial Thromboplastin Time 23.7 sec (22.0-30.0); Prothrombin Time 10.3 sec (9.0-12.0)
[2022-04-11 16:50] LABS: ALT 29 U/L (4-49); AST 26 U/L (17-59); African American GFR (CKD) >90 (>60 ml/min/1.73 sqM); Albumin 3.7 g/dL (3.5-5.0); Alkaline Phosphatase 81 U/L (38-126); Anion Gap 13 mmol/L; Blood Urea Nitrogen 16 mg/dL (9-20); Carbon Dioxide 17 mmol/L (22-30); Chloride 110 mmol/L (98-107); Glucose 119 mg/dL (74-99); Non-African American GFR(CKD) 81 (>60 ml/min/1.73 sqM); Potassium 4.5 mmol/L (3.5-5.1); Sodium 140 mmol/L (137-145); Total Bilirubin 0.3 mg/dL (0.2-1.3); Total Protein 6.1 g/dL (6.3-8.2)
--- NOTE | 2022-04-11 16:54 | ED ---
General Adult HPI - General Chief complaint: Arrhythmia/Palpitations Stated complaint: Afib, SHAISTA, Feet edema Time Seen by Provider: 04/11/22 16:04 Source: patient Mode of arrival: wheelchair Limitations: no limitations - History of Present Illness Initial comments: This 61-year-old male presents with a complaint of shortness of breath. He states that it is much worse with any exertion, even trying to walk across a room. He denies any chest pain or palpitations. He states that he has his normal smoker's cough but this is unchanged. He does have a history of congestive heart failure and this feels similar. He has had worsening of his lower extremity edema. His abdomen appears very bloated but he states that this is normal for him. He states that he was taken off of his Lasix and Aldactone 8 days ago due to his kidney function being off. His symptoms have been worsening ever since. He states that he has atrial fibrillation and it feels like his atrial fibrillation is worsening. He also relates that he has a scheduled routine EGD tomorrow with Dr. Beck and has been off of his blood thinners since Monday, 3 days ago. He denies any fevers or chills. No other complaints or modifying factors. - Related Data Home Medications Medication Instructions Recorded Confirmed lisinopriL [Zestril] 20 mg PO DAILY@1200 06/28/16 04/11/22 Montelukast [Singulair] 10 mg PO DAILY@1200 01/12/18 04/11/22 Omeprazole 20 mg PO DAILY@1200 02/08/20 04/11/22 Latanoprost Ophth [Xalatan 0.005%] 1 drops BOTH EYES 11/08/21 04/11/22 Tamsulosin [Flomax] 0.4 mg PO DAILY@1200 11/08/21 04/11/22 rOPINIRole HCL [Requip] 4 mg PO DAILY@1200 11/08/21 04/11/22 Cyclobenzaprine [Flexeril] 10 mg PO TID 11/24/21 04/11/22 Loratadine [Claritin] 10 mg PO DAILY@1200 11/24/21 04/11/22 oxyCODONE-APAP 10-325MG [Percocet 1 tab PO Q8HR PRN 11/24/21 04/11/22 10-325 mg] Budesonide-Formot 160-4.5 Mcg 2 puff INHALATION RT-BID 04/11/22 04/11/22 [Symbicort 160-4.5 Mcg Inhaler] Empagliflozin [Jardiance] 10 mg PO DAILY@1200 04/11/22 04/11/22 Metoprolol Tartrate [Lopressor] 50 mg PO QID 04/11/22 04/11/22 Pramipexole [Mirapex] 0.5 mg PO DAILY@1200 04/11/22 04/11/22 Previous Rx's Medication Instructions Recorded Apixaban [Eliquis] 2.5 mg PO BID #60 tab 11/27/21 Allergies Allergy/AdvReac Type Severity Reaction Status Date / Time pregabalin [From Lyrica] Allergy Swelling Verified 04/11/22 17:49 amoxicillin trihydrate AdvReac Rapid Verified 04/11/22 17:49 [From Augmentin] Heart Rate potassium clavulanate AdvReac FELT LIKE Verified 04/11/22 17:49 [From Augmentin] HE WAS GOING TO PASS OUT FAST HEARTBEAT" Review of Systems ROS Statement: Those systems with pertinent positive or pertinent negative responses have been documented in the HPI. ROS Other: All systems not noted in ROS Statement are negative. Past Medical History Past Medical History: Atrial Fibrillation, Coronary Artery Disease (CAD), Heart Failure, COPD, Eye Disorder, Fibromyalgia, Hypertension, Myocardial Infarction ([place]), Osteoarthritis (OA), Prostate Disorder, Vascular Disorder Additional Past Medical History / Comment(s): Patient states did not have [place] was a valve issue. Chronic cough, hx pancreatitis, bilateral eye glaucoma, neuropathy bilateral feet, poor circulation to legs, varicose veins, RLS, hx BPH, colitis, gastritis, Alvarenga's esophagus, shingles in 2013 and states joint pain since, chronic low back pain, DDD. Last Myocardial Infarction Date:: 09/02/16 History of Any Multi-Drug Resistant Organisms: None Reported Past Surgical History: Appendectomy, Heart Catheterization, Joint Replacement, O rthopedic Surgery, Prostate Surgery Additional Past Surgical History / Comment(s): Right knee arthroscopy for torn meniscus, right knee replacement, EGD, colonoscopy, TURP. Past Anesthesia/Blood Transfusion Reactions: No Reported Reaction Past Psychological History: Anxiety, Depression Smoking Status: Current some day smoker Past Alcohol Use History: None Reported Past Drug Use History: Cocaine - Past Family History Father Family Medical History: CVA/TIA, Hypertension Additional Family Medical History / Comment(s): Father at the age of 38yrs from HTN/CVA. He was an alcoholic. Mother Family Medical History: COPD, Diabetes Mellitus Additional Family Medical History / Comment(s): Mother of emphysema at the age of 74 yrs (2003), mom had hx of drinking and smoking. General Exam - General Exam Comments Initial Comments: GENERAL: The patient is well nourished and well hydrated. VITAL SIGNS: Heart rate, blood pressure, respiratory rate reviewed as recorded in nurse's notes. EYES: Pupils are round and reactive. Extraocular movements are intact. No conjunctival / lid redness or swelling. ENT: No external evidence of injury, swelling, or ecchymosis. Airway is patent. Throat is clear. NECK: Nontender. No swelling or evidence of injury. No subcutaneous emphysema. Trachea is midline. No thyroid mass. HEART: Tachycardic irregular rhythm. Good peripheral pulses. Lower extremity edema noted bilaterally. LUNGS/CHEST: Mild Rales noted bilaterally. No ecchymosis, subcutaneous emphysema, or tenderness. ABDOMEN: Abdomen soft without tenderness. Appears distended. No palpable masses or organomegaly. No peritoneal signs. No abdominal wall swelling or ecchymosis. EXTREMITIES: No extremity tenderness. Normal muscle tone and function. No thoracolumbar tenderness. NEUROLOGIC: Sensation is grossly intact. Cranial nerve exam reveals face is symmetrical, tongue is midline, speech is clear. SKIN: No abrasions or ecchymosis is noted. No induration or masses noted. PSYCHIATRIC: Alert and oriented. Appropriate behavior and judgment. Limitations: no limitations Course Vital Signs 04/11/22 04/11/22 04/11/22 15:48 16:07 16:14 Temperature 97.6 F Pulse Rate 132 H 113 H Pulse Rate [ 105 H Rn Liaison ] Respiratory 20 22 Rate Blood Pressure 130/91 126/76 O2 Sat by Pulse 96 95 Oximetry 04/11/22 04/11/22 04/11/22 17:07 17:18 17:23 Temperature Pulse Rate 105 H 122 H 112 H Pulse Rate [ Rn Liaison ] Respiratory 20 Rate Blood Pressure 140/86 O2 Sat by Pulse 96 Oximetry 04/11/22 19:08 Temperature Pulse Rate 68 Pulse Rate [ Rn Liaison ] Respiratory 16 Rate Blood Pressure 130/75 O2 Sat by Pulse 98 Oximetry Medical Decision Making - Medical Decision Making The patient was seen and examined. All diagnostics are reviewed. EKG is done and does show atrial fibrillation with a heart rate of 106. There is nonspecific ST-T waves noted more so in the lateral leads. The QRS duration is 106 and the QTC intervals 411. While watching them on the heart monitor in the room, his heart rate is going up to approximately 120-125 at times. Aspirin is given. Lasix 40 mg is given IV. The laboratories reviewed and does not show any acute significant abnormalities. Chest x-ray is reviewed by myself and does not show any acute process with final radiologic review pending. The patient is doing much better on recheck. He is given out 2 L of urine and states that his shortness of breath is improved. His heart rate is approximately 95-100 on a Cardizem drip. It is felt as though he would require admission for further treatment and cardiology consultation. Case will be discussed with internal medicine in the near future. Approximately 30 minutes critical care time is utilized and the treatment of the patient. - Lab Data Result diagrams: 04/11/22 16:32 04/11/22 16:32 Lab Results 04/11/22 04/11/22 04/11/22 Range/Units 16:32 16:32 16:32 WBC 5.8 (3.8-10.6) k/uL RBC 3.95 L (4.30-5.90) m/uL Hgb 11.9 L (13.0-17.5) gm/dL Hct 38.1 L (39.0-53.0) % MCV 96.6 (80.0-100.0) fL MCH 30.2 (25.0-35.0) pg MCHC 31.3 (31.0-37.0) g/dL RDW 14.1 (11.5-15.5) % Plt Count 280 (150-450) k/uL MPV 7.1 Neutrophils % 63 % Lymphocytes % 25 % Monocytes % 7 % Eosinophils % 2 % Basophils % 1 % Neutrophils # 3.6 (1.3-7.7) k/uL Lymphocytes # 1.4 (1.0-4.8) k/uL Monocytes # 0.4 (0-1.0) k/uL Eosinophils # 0.1 (0-0.7) k/uL Basophils # 0.0 (0-0.2) k/uL Hypochromasia Slight PT 10.3 (9.0-12.0) sec INR 0.9 (<1.2) APTT 23.7 (22.0-30.0) sec Sodium 140 (137-145) mmol/L Potassium 4.5 (3.5-5.1) mmol/L Chloride 110 H (98-107) mmol/L Carbon Dioxide 17 L (22-30) mmol/L Anion Gap 13 mmol/L BUN 16 (9-20) mg/dL Creatinine 1.00 (0.66-1.25) mg/dL Est GFR (CKD-EPI)AfAm >90 (>60 ml/min/1.73 sqM) Est GFR (CKD-EPI)NonAf 81 (>60 ml/min/1.73 sqM) Glucose 119 H (74-99) mg/dL Calcium 9.0 (8.4-10.2) mg/dL Magnesium 2.0 (1.6-2.3) mg/dL Total Bilirubin 0.3 (0.2-1.3) mg/dL AST 26 (17-59) U/L ALT 29 (4-49) U/L Alkaline Phosphatase 81 (38-126) U/L Troponin I (0.000-0.034) ng/mL Total Protein 6.1 L (6.3-8.2) g/dL Albumin 3.7 (3.5-5.0) g/dL TSH 0.910 (0.465-4.680) mIU/L Coronavirus (PCR) (Not Detectd) 04/11/22 04/11/22 Range/Units 16:32 17:53 WBC (3.8-10.6) k/uL RBC (4.30-5.90) m/uL Hgb (13.0-17.5) gm/dL Hct (39.0-53.0) % MCV (80.0-100.0) fL MCH (25.0-35.0) pg MCHC (31.0-37.0) g/dL RDW (11.5-15.5) % Plt Count (150-450) k/uL MPV Neutrophils % % Lymphocytes % % Monocytes % % Eosinophils % % Basophils % % Neutrophils # (1.3-7.7) k/uL Lymphocytes # (1.0-4.8) k/uL Monocytes # (0-1.0) k/uL Eosinophils # (0-0.7) k/uL Basophils # (0-0.2) k/uL Hypochromasia PT (9.0-12.0) sec INR (<1.2) APTT (22.0-30.0) sec Sodium (137-145) mmol/L Potassium (3.5-5.1) mmol/L Chloride (98-107) mmol/L Carbon Dioxide (22-30) mmol/L Anion Gap mmol/L BUN (9-20) mg/dL Creatinine (0.66-1.25) mg/dL Est GFR (CKD-EPI)AfAm (>60 ml/min/1.73 sqM) Est GFR (CKD-EPI)NonAf (>60 ml/min/1.73 sqM) Glucose (74-99) mg/dL Calcium (8.4-10.2) mg/dL Magnesium (1.6-2.3) mg/dL Total Bilirubin (0.2-1.3) mg/dL AST (17-59) U/L ALT (4-49) U/L Alkaline Phosphatase (38-126) U/L Troponin I <0.012 (0.000-0.034) ng/mL Total Protein (6.3-8.2) g/dL Albumin (3.5-5.0) g/dL TSH (0.465-4.680) mIU/L Coronavirus (PCR) Not Detected (Not Detectd) Disposition Clinical Impression: Congestive heart failure, Atrial fibrillation with RVR, Lower extremity edema, COPD (chronic obstructive pulmonary disease), Anemia Disposition: ADMITTED IP TO THIS HOSP Condition: Fair Is patient prescribed a controlled substance at d/c from ED?: No Referrals: Albert Chavez MD [Primary Care Provider] - 1-2 days
[2022-04-11] MEDS ORDERED: IPRATROPIUM-ALBUTEROL 3 ML NEB INHALATION STA (16:55)
[2022-04-11] MEDS ORDERED: DILTIAZEM 125 MG in SODIUM CHLORIDE 0.9% 100 ML IV SCH (17:00)
[2022-04-11] MEDS ORDERED: NALOXONE 0.4 MG/ML 1 ML VIAL IV PRN (20:05)
[2022-04-11] MEDS ORDERED: ONDANSETRON 4 MG/2 ML VIAL IVP PRN (20:05)
[2022-04-11] MEDS ORDERED: ACETAMINOPHEN TAB 325 MG TAB PO PRN (20:05)
--- NOTE | 2022-04-11 20:44 | XR ---
EXAMINATION TYPE: XR chest 2V DATE OF EXAM: 04/11/2022 COMPARISON: 11/24/2021 HISTORY: Atrial fibrillation TECHNIQUE: 2 views FINDINGS: Heart is normal. Lungs are clear of consolidation. There are no hilar masses. No pleural ef fusion. There are chest leads. Bony thorax is intact. IMPRESSION: No active cardiopulmonary disease. Normal heart. There is clearing of the interstitial pu lmonary infiltrates compared to the old exam
[2022-04-11] MEDS: LATANOPROST 0.005% OPHTH DROPS 2.5 ML BTL BOTH EYES SCH (21:38)
[2022-04-11] MEDS: APIXABAN 2.5 MG TABLET PO SCH (21:38)
[2022-04-11] MEDS: oxyCODONE-APAP 10-325MG 1 EACH TAB PO PRN (21:39)
[2022-04-11] MEDS: rOPINIRole HCL 4 MG TABLET PO SCH (21:39)
[2022-04-11] MEDS: METOPROLOL TARTRATE 50 MG TAB PO SCH (21:39)
[2022-04-11 21:47] LABS: Glucose,Whole Blood 104 mg/dL (70-110)
[2022-04-11] MEDS ORDERED: METOPROLOL TARTRATE 50 MG TAB PO SCH (22:00)
[2022-04-11] MEDS: CYCLOBENZAPRINE 10 MG TAB PO SCH (23:11)
[2022-04-12 06:08] LABS: Glucose,Whole Blood 120 mg/dL (70-110)
[2022-04-12] MEDS: oxyCODONE-APAP 10-325MG 1 EACH TAB PO PRN ×3 (07:56→23:45)
[2022-04-12] MEDS: APIXABAN 2.5 MG TABLET PO SCH ×2 (07:57→20:22)
[2022-04-12] MEDS: METOPROLOL TARTRATE 50 MG TAB PO SCH ×2 (07:57→20:22)
[2022-04-12] MEDS: CYCLOBENZAPRINE 10 MG TAB PO SCH ×3 (07:57→20:21)
[2022-04-12] MEDS: SYMBICORT 160-4.5 MCG INHALER INHALATION SCH ×2 (08:54→19:57)
[2022-04-12] MEDS ORDERED: SOTALOL 80 MG TAB PO SCH (09:30)
--- NOTE | 2022-04-12 10:59 | P.CRDCN ---
History of Present Illness History of present illness: This is a 61 year old male with a past medical history of persistent atrial fibrillation on Eliquis, Prior cardioverson on 12/2021, nonischemic cardiomyopathy (from cardiac cath in 11/2016), mild nonobstructive coronary artery disease, moderate aortic regurgitation, hypertension, dyslipidemia, chronic nicotine dependence, cirrhosis of liver, pancreatitis secondary to history of alcohol, Alvarenga's esophagus, COPD. He follow with Dr. Avila. We have been asked to see in consultation for atrial fibrillation and congestive heart failure. Patient presents to the emergency department with worsening shortness of breath, lower extremity edema. He states that he was taken off of his Lasix and Aldactone 8 days ago due to his kidney function being abnormal. His symptoms have been worsening ever since. He also relates that he has a scheduled routine EGD tomorrow with Dr. Avila and has been off of his blood thinners since Monday, 3 days ago. He is a chronic smoker, smokes less than 1/2 PPD. Stopped drinking alcohol 01/23/22. History of cocaine use. DIAGNOSTICS * EKG reveals atrial fibrillation with RVR, heart rate 106, no significant ST or T-wave a mallet the cyst chest ischemia * Telemetry tracings indicate atrial flutter heart rates in the 60s-70s * MANN on 12/2021- no intracardiac thrombus, severe LV dysfunction with an EF of 35%, mild to moderate mitral regurgitation, mild to moderate regurgitation, severe left atrial enlargement no evidence of shunt. * 2D Echocardiogram 11/2021 revealed EF 3540%, mild aortic regurgitation, mild tricuspid regurgitation, mild pulmonary hypertension with RVSP 41 mmHg * Prior echocardiogram in the office 11/2020 revealed an EF of 55%, moderate to severe aortic regurgitation, mild tricuspid regurgitation, mild mitral regurgitation * Recent Lexiscan stress test 10/15/2021 revealed probably normal myocardial perfusion and function with a fixed inferior wall defect secondary to soft tissue attenuation * Most recent cardiac catheterization 11/2016 revealed mild nonobstructive coronary artery disease involving the circumflex coronary artery * Chest xray heart is normal, lungs are clear to consolidation, clearing of interstitial pulmonary infiltrates compared to old exam * Laboratory reviewed, troponin negative 3, sodium 140, potassium 4.5, BUN 16, serum, 0.0, magnesium 2.0, COVID-19 negative, TSH within normal limits, hemoglobin 11.9 * Current home cardiac medications include Eliquis 2.5 mg twice a day, metoprolol titrate 100 mg twice a day lisinopril 20 mg daily, Jardiance 10mg daily REVIEW OF SYSTEMS At the time of my exam: CONSTITUTIONAL: Denies fever or chills. CARDIOVASCULAR: Denies chest pain, +shortness of breath, orthopnea, PND or palpitations. RESPIRATORY: Denies cough. GASTROINTESTINAL: Denies abdominal pain, diarrhea, constipation, nausea or vomiting. MUSCULOSKELETAL: Denies myalgias. NEUROLOGIC: Denies numbness, tingling, headacbe or weakness. ENDOCRINE: Denies fatigue, weight change, polydipsia or polyurina. GENITOURINARY: Denies burning, hematuria or urgency with micturation. HEMATOLOGIC: Denies history of anemia or bleeding. PHYSICAL EXAMINATION Vitals reviewed CONSTITUTIONAL: No apparent distress. HEENT: Head is normocephalic. Pupils are equal, round. Sclerae anicteric. Mucous membranes of the mouth are moist. No JVD. No carotid bruit. CHEST EXAMINATION: Lungs are diminished to auscultation. No chest wall tenderness is noted on palpation or with deep breathing. HEART EXAMINATION: Irregular rate and rhythm. S1, S2 heard. Systolic and diastolic murmur noted ABDOMEN: Soft, nontender. Positive bowel sounds. EXTREMITIES: 2+ peripheral pulses, 1-2+ bilateral lower extremity edema and no calf tenderness. NEUROLOGIC EXAMINATION: Patient is awake, alert and oriented x3. ASSESSMENT Persistent atrial fibrillation with RVR [id number] score 2, on Eliquis, previous MANN cardioversion on 01/03/22 Acute on chronic heart failure with reduced ejection fraction 35-40% Nonischemic Cardiomyopathy Recently was taken off of his Lasix and Aldactone 8 days ago due to his kidney function being abnormal Mild nonobstructive coronary artery disease involving the circumflex from cardiac cath 11/2016 History of hypertension Dyslipidemia Chronic nicotine dependence Valvular heart disease History of cocaine use History of alcohol use, recently quit 01/2022 PLAN Obtain limited echo to assess if LV function has improved Hold IV Lasix at this time Maximize heart failure regimen Hold Lisinopril at this time, and possible start Entresto tomorrow Metoprolol tartrate 50mg BID Sotalol 80mg BID Spironolactone 25mg daily Monitor I/Os, daily weights, renal function and electrolytes Continue Eliquis 5mg BID. Further recommendations based on clinical course Nurse practitioner note has been reviewed by physician. Signing provider agrees with the documented findings, assessment, and plan of care. Past Medical History Past Medical History: Atrial Fibrillation, Coronary Artery Disease (CAD), Heart Failure, COPD, Diabetes Mellitus, Eye Disorder, Fibromyalgia, Hypertension, Myocardial Infarction (GA), Osteoarthritis (OA), Prostate Disorder, Vascular Disorder Additional Past Medical History / Comment(s): Patient states did not have GA was a valve issue. Chronic cough, hx pancreatitis, bilateral eye glaucoma, neuropathy bilateral feet, poor circulation to legs, varicose veins, RLS, hx BPH, colitis, gastritis, Alvarenga's esophagus, shingles in 2013 and states joint pain since, chronic low back pain, DDD. borderline diabetes Last Myocardial Infarction Date:: 09/02/16 History of Any Multi-Drug Resistant Organisms: None Reported Past Surgical History: Appendectomy, Heart Catheterization, Joint Replacement, Orthopedic Surgery, Prostate Surgery Additional Past Surgical History / Comment(s): Right knee arthroscopy for torn meniscus, right knee replacement, EGD, colonoscopy, TURP. Past Anesthesia/Blood Transfusion Reactions: No Reported Reaction Past Psychological History: Anxiety, Depression Additional Psychological History / Comment(s): Pt resides with his sister Ewelina. Smoking Status: Current some day smoker Past Alcohol Use History: None Reported Additional Past Alcohol Use History / Comment(s): Started smoking at age 13, quit smoking 10/2016, but has an occasional cigarette or 2 in a week. denies currently alcohol use Past Drug Use History: Cocaine Additional Drug Use History / Comment(s): Past cocaine use, pt states its been years since he used. - Past Family History Father Family Medical History: CVA/TIA, Hypertension Additional Family Medical History / Comment(s): Father at the age of 38yrs from HTN/CVA. He was an alcoholic. Mother Family Medical History: COPD, Diabetes Mellitus Additional Family Medical History / Comment(s): Mother of emphysema at the age of 74 yrs (2003), mom had hx of drinking and smoking. Medications and Allergies Home Medications Medication Instructions Recorded Confirmed Type lisinopriL [Zestril] 20 mg PO DAILY@1200 06/28/04/11/22 History Montelukast [Singulair] 10 mg PO DAILY@1200 01/12/18 04/11/22 History Omeprazole 20 mg PO DAILY@1200 02/08/20 04/11/22 History Latanoprost Ophth [Xalatan 0.005%] 1 drops BOTH EYES HS 11/08/21 04/11/22 History Tamsulosin [Flomax] 0.4 mg PO DAILY@1200 11/08/21 04/11/22 History rOPINIRole HCL [Requip] 4 mg PO HS 11/08/21 04/11/22 History Cyclobenzaprine [Flexeril] 10 mg PO TID 11/24/21 04/11/22 History Loratadine [Claritin] 10 mg PO DAILY@1200 11/24/21 04/11/22 History oxyCODONE-APAP 10-325MG [Percocet 1 tab PO Q8HR PRN 11/24/21 04/11/22 History 10-325 mg] Apixaban [Eliquis] 2.5 mg PO BID #60 tab 11/27/21 04/11/22 Rx Budesonide-Formot 160-4.5 Mcg 2 puff INHALATION RT-BID 04/11/22 04/11/22 History [Symbicort 160-4.5 Mcg Inhaler] Empagliflozin [Jardiance] 10 mg PO DAILY@1200 04/11/22 04/11/22 History Metoprolol Tartrate [Lopressor] 100 mg PO BID 04/11/22 04/11/22 History Allergies Allergy/AdvReac Type Severity Reaction Status Date / Time pregabalin [From Lyrica] Allergy Swelling Verified 04/11/22 17:49 amoxicillin trihydrate AdvReac Rapid Verified 04/11/22 17:49 [From Augmentin] Heart Rate potassium clavulanate AdvReac FELT LIKE Verified 04/11/22 17:49 [From Augmentin] HE WAS GOING TO PASS OUT FAST HEARTBEAT" Physical Exam Vitals: Vital Signs Temp Pulse Pulse Resp BP BP Pulse Ox 04/12/22 03:51 97.0 F L 71 18 118/71 95 04/12/22 01:52 98 18 04/11/22 23:35 97.7 F 98 18 137/70 96 04/11/22 21:19 97.6 F 94 20 141/75 99 04/11/22 21:15 94 20 04/11/22 20:49 85 16 146/76 98 04/11/22 20:08 76 16 132/77 98 04/11/22 19:08 68 16 130/75 98 04/11/22 17:23 112 H 20 140/86 96 04/11/22 17:18 122 H 04/11/22 17:07 105 H 04/11/22 16:14 105 H 04/11/22 16:07 113 H 22 126/76 95 04/11/22 15:48 97.6 F 132 H 20 130/91 96 Intake and Output 04/11/22 04/11/22 04/12/22 14:59 22:59 06:59 Output Total 1999 Balance -1999 Output: Urine 1999 Other: Voiding Method Urinal Urinal Weight 104.326 kg 104.7 kg Results 04/11/22 16:32 04/11/22 16:32 Cardiac Enzymes 04/11/22 04/11/22 04/11/22 Range/Units 16:32 16:32 21:30 AST 26 (17-59) U/L Troponin I <0.012 <0.012 (0.000-0.034) ng/mL 04/11/22 Range/Units 23:37 AST (17-59) U/L Troponin I <0.012 (0.000-0.034) ng/mL Coagulation 04/11/22 Range/Units 16:32 PT 10.3 (9.0-12.0) sec APTT 23.7 (22.0-30.0) sec CBC 04/11/22 Range/Units 16:32 WBC 5.8 (3.8-10.6) k/uL RBC 3.95 L (4.30-5.90) m/uL Hgb 11.9 L (13.0-17.5) gm/dL Hct 38.1 L (39.0-53.0) % Plt Count 280 (150-450) k/uL Comprehensive Metabolic Panel 04/11/22 Range/Units 16:32 Sodium 140 (137-145) mmol/L Potassium 4.5 (3.5-5.1) mmol/L Chloride 110 H (98-107) mmol/L Carbon Dioxide 17 L (22-30) mmol/L BUN 16 (9-20) mg/dL Creatinine 1.00 (0.66-1.25) mg/dL Glucose 119 H (74-99) mg/dL Calcium 9.0 (8.4-10.2) mg/dL AST 26 (17-59) U/L ALT 29 (4-49) U/L Alkaline Phosphatase 81 (38-126) U/L Total Protein 6.1 L (6.3-8.2) g/dL Albumin 3.7 (3.5-5.0) g/dL Current Medications Generic Name Dose Route Start Last Admin Trade Name Freq PRN Reason Stop Dose Admin Acetaminophen 650 mg 04/11/22 20:05 Acetaminophen Tab 325 Mg Tab PO Q6HR PRN Mild Pain or Fever > 100.5 Apixaban 2.5 mg 04/11/22 21:00 04/11/22 21:38 Apixaban 2.5 Mg Tablet PO 2.5 mg BID CHEYANNE Administration Protocol Budesonide/Formoterol Fumarate 2 puff 04/12/22 08:00 Symbicort 160-4.5 Mcg Inhaler INHALATION RT-BID [facility] Cyclobenzaprine HCl 10 mg 04/11/22 22:00 04/11/22 23:11 Cyclobenzaprine 10 Mg Tab PO 10 mg TID CHEYANNE Administration Diltiazem HCl 125 mg/ Sodium 125 mls @ 5 mls/hr 04/11/22 17:00 04/11/22 17:18 Chloride IV 5 mg/hr .Q24H CHEYANNE 5 mls/hr Administration 5 MG/HR Latanoprost 1 drops 04/11/22 21:00 04/11/22 21:38 Latanoprost 0.005% Ophth Drops 2.5 Ml Btl BOTH EYES 1 drops HS CHEYANNE Administration Lisinopril 20 mg 04/12/22 12:00 Lisinopril 20 Mg Tab PO DAILY@1200 CHEYANNE Loratadine 10 mg 04/12/22 12:00 Loratadine 10 Mg Tab PO DAILY@1200 [facility] Metoprolol Tartrate 100 mg 04/11/22 21:00 04/11/22 21:39 Metoprolol Tartrate 50 Mg Tab PO 100 mg BID CHEYANNE Administration Montelukast Sodium 10 mg 04/12/22 12:00 Montelukast 10 Mg Tab PO DAILY@1200 CHEYANNE Naloxone HCl 0.2 mg 04/11/22 20:05 Naloxone 0.4 Mg/Ml 1 Ml Vial IV Q2M PRN Opioid Reversal Patient's Own ( 10 mg 04/12/22 12:00 Empagliflozin [ PO Jardiance] 10 Mg DAILY@1200 CHEYANNE Tablet) Ondansetron HCl 4 mg 04/11/22 20:05 Ondansetron 4 Mg/2 Ml Vial IVP Q8HR PRN Nausea And Vomiting Oxycodone/Acetaminophen 1 each 04/11/22 20:08 04/11/22 21:39 Oxycodone-Apap 10-325mg 1 Each Tab PO 1 each Q8HR PRN Administration Pain Pantoprazole Sodium 40 mg 04/12/22 12:00 Pantoprazole 40 Mg Tablet PO DAILY@1200 CHEYANNE Ropinirole HCl 4 mg 04/11/22 21:00 04/11/22 21:39 Ropinirole Hcl 4 Mg Tablet PO 4 mg HS CHEYANNE Administration Tamsulosin HCl 0.4 mg 04/12/22 12:00 Tamsulosin 0.4 Mg Cap.Er.24h PO DAILY@1200 CHEYANNE Intake and Output 04/11/22 04/11/22 04/12/22 14:59 22:59 06:59 Output Total 1999 Balance -1999 -550 Output: Urine 1999 550 Other: Voiding Method Urinal Urinal Weight 104.326 kg 104.7 kg Patient Weight 04/12/22 06:59 Weight 104.7 kg 04/11/22 16:32 04/11/22 16:32
[2022-04-12 11:32] LABS: Glucose,Whole Blood 152 mg/dL (70-110)
[2022-04-12] MEDS ORDERED: PRAMIPEXOLE 0.5 MG TAB PO SCH (12:00)
[2022-04-12] MEDS ORDERED: lisinopriL 20 MG TAB PO SCH (12:00)
[2022-04-12] MEDS: PANTOPRAZOLE 40 MG TABLET PO SCH (12:35)
[2022-04-12] MEDS: SOTALOL 80 MG TAB PO SCH ×2 (12:35→20:21)
[2022-04-12] MEDS: MONTELUKAST 10 MG TAB PO SCH (12:35)
[2022-04-12] MEDS: TAMSULOSIN 0.4 MG CAP.ER.24H PO SCH (12:35)
[2022-04-12] MEDS: SPIRONOLACTONE 25 MG TAB PO SCH (12:36)
[2022-04-12] MEDS: PATIENT'S OWN (Empagliflozin [Jardiance] 10 MG Tablet) PO SCH (12:38)
[2022-04-12] MEDS: LORATADINE 10 MG TAB PO SCH (12:38)
[2022-04-12 16:50] LABS: Glucose,Whole Blood 133 mg/dL (70-110)
--- NOTE | 2022-04-12 17:06 | P.HPIM ---
History of Present Illness H&P Date: 04/12/22 Chief Complaint: Short of breath This is a [address] Chavez. Chronic stable medical conditions include COPD, fibromyalgia, hypertension, osteoarthritis, chronic pancreatitis from alcoholism, peripheral neuropathy varicose veins, restless leg syndrome, BPH surgery, Alvarenga's esophagus and chronic low back pain from osteoarthritis. Alcohol use disorder with cirrhosis. Last drink was about a month ago. Still smokes about 2 cigarettes a day. About March 22, Patient was taken off Lasix because of worsening renal function. Gradually patient started having increasing leg edema which no significant. Slight cough. Increase in shortness of breath. Orthopnea. No fever no chills. Appetite is fair. No change in bowel pattern. In the ER found to be in atrial fibrillation with rapid ventricular rate. Given IV Lasix. Put on Cardizem drip. Review of systems: GEN.: Tired EYES: None HEENT: None NECK: None RESPIRATORY: As above CARDIOVASCULAR: As above GASTROINTESTINAL: None GENITOURINARY: None MUSCULOSKELETAL: Joint pains LYMPHATICS: None HEMATOLOGICAL: None PSYCHIATRY: None NEUROLOGICAL: None Past medical history to include: COPD, fibromyalgia, hypertension, osteoarthritis, chronic pancreatitis from alcoholism, peripheral neuropathy, varicose pains, restless leg syndrome, BPH with surgery, Alvarenga's esophagus, chronic low back pain from osteoarthritis, alcohol use disorder with cirrhosis, Social history: Patient lives with his sister Ewelina. Smoked for close to 42 years. Now down to a few cigarettes a day.. Drinking alcohol for years. Stopped for about a month. Physical examination: VITAL SIGNS: 97.6, 132, 20, 1:30/91, 96% on room air upon presentation GENERAL: BMI 31.3, reclining in bed, awake, tired EYES: Pupils equal. Conjunctiva normal. HEENT: External appearance of nose and ears normal, oral cavity grossly normal. NECK: JVD raised; masses not palpable. HEART: Heart sounds irregular; significant edema. LUNGS: Respiratory rate increased; decreased breath sounds, prolonged expiration ABDOMEN: Soft, distended, nontender, liver spleen not palpable, no masses palpable. divarification of recti . PSYCH: Alert and oriented x3; mood and affect anxiousl. MUSCULOSKELETAL:No Clubbing/cyanosis;muscles-grossly intact. evidence of OA NEUROLOGICAL: Cranial nerves grossly intact; no facial asymmetry, power and sensation grossly intact. LYMPHATICS: No lymph nodes palpable in the axilla and neck INVESTIGATIONS, reviewed in the clinical context: WBC 5.8 hemoglobin 11.9 platelets 286 potassium 4.5 BUN 16 creatinine 1.0 Troponin I 3 negative COVID 19: Not detected EKG tracing personally reviewed by me-atrial flutter with a ventricular rate of 106. Some ST segment changes. Chest x-ray film personally reviewed by me-cardiomegaly. Venous prominence. Some cephalization. Previous studies Abdominal ultrasound: Evidence of cirrhosis 2-D echocardiogram: Moderate concentric LVH. EF 35-40%. Right ventricular moderately enlarged. Assessment and plan: -Acute worsening of atrial flutter fibrillation rate uncontrolled on presentation Started on IV Cardizem. Eliquis -Acute congestive heart failure exacerbation from systolic and diastolic dysfunction EF 35-40%: Given IV Lasix. Aldactone 25 mg. Cardiology consulted. - chronic pancreatitis from alcoholism: - COPD exacerbation in a cigarette smoker, Symbicort 160/4.52 puffs twice a day., -Alcohol-induced cirrhosis: [id number] mg a day. Low-salt diet. -Chronic nicotine dependence, cigarette smoker Nicotine patch 7 -Chronic fibromyalgia Flexeril 10 mg 3 times a day -Essential hypertension Zestril 20 mg a day. Lopressor 50 mg 3 times a day a day -Primary osteoarthritis, multiple joints bilaterally Pain medications as needed -Alcoholic peripheral neuropathy -restless leg syndrome Requip 4 mg daily at bedtime -Alvarenga's esophagus Protonix 40 mg a day -Full code Patient received IV Lasix. Further on hold per cardiology. The planning for Entresto to be started tomorrow. Lopressor increased to 50 mg twice a day. Aldactone. Also started on sotalol. Discussed with patient. Past Medical History Past Medical History: Atrial Fibrillation, Coronary Artery Disease (CAD), Heart Failure, COPD, Diabetes Mellitus, Eye Disorder, Fibromyalgia, Hypertension, Myocardial Infarction (NH), Osteoarthritis (OA), Prostate Disorder, Vascular Disorder Additional Past Medical History / Comment(s): Patient states did not have NH was a valve issue. Chronic cough, hx pancreatitis, bilateral eye glaucoma, neuropathy bilateral feet, poor circulation to legs, varicose veins, RLS, hx BPH, colitis, gastritis, Alvarenga's esophagus, shingles in 2013 and states joint pain since, chronic low back pain, DDD. borderline diabetes Last Myocardial Infarction Date:: 09/02/16 History of Any Multi-Drug Resistant Organisms: None Reported Past Surgical History: Appendectomy, Heart Catheterization, Joint Replacement, Orthopedic Surgery, Prostate Surgery Additional Past Surgical History / Comment(s): Right knee arthroscopy for torn meniscus, right knee replacement, EGD, colonoscopy, TURP. Past Anesthesia/Blood Transfusion Reactions: No Reported Reaction Past Psychological History: Anxiety, Depression Additional Psychological History / Comment(s): Pt resides with his sister Ewelina. Smoking Status: Current some day smoker Past Alcohol Use History: None Reported Additional Past Alcohol Use History / Comment(s): Started smoking at age 13, quit smoking 10/2016, but has an occasional cigarette or 2 in a week. denies currently alcohol use Past Drug Use History: Cocaine Additional Drug Use History / Comment(s): Past cocaine use, pt states its been years since he used. - Past Family History Father Family Medical History: CVA/TIA, Hypertension Additional Family Medical History / Comment(s): Father at the age of 38yrs from HTN/CVA. He was an alcoholic. Mother Family Medical History: COPD, Diabetes Mellitus Additional Family Medical History / Comment(s): Mother of emphysema at the age of 74 yrs (2003), mom had hx of drinking and smoking. Medications and Allergies Home Medications Medication Instructions Recorded Confirmed Type lisinopriL [Zestril] 20 mg PO DAILY@1200 06/28/16 04/11/22 History Montelukast [Singulair] 10 mg PO DAILY@1200 01/12/18 04/11/22 History Omeprazole 20 mg PO DAILY@1200 02/08/20 04/11/22 History Latanoprost Ophth [Xalatan 0.005%] 1 drops BOTH EYES HS 11/08/21 04/11/22 History Tamsulosin [Flomax] 0.4 mg PO DAILY@1200 11/08/21 04/11/22 History rOPINIRole HCL [Requip] 4 mg PO HS 11/08/21 04/11/22 History Cyclobenzaprine [Flexeril] 10 mg PO TID 11/24/21 04/11/22 History Loratadine [Claritin] 10 mg PO DAILY@1200 11/24/21 04/11/22 History oxyCODONE-APAP 10-325MG [Percocet 1 tab PO Q8HR PRN 11/24/21 04/11/22 History 10-325 mg] Apixaban [Eliquis] 2.5 mg PO BID #60 tab 11/27/21 04/11/22 Rx Budesonide-Formot 160-4.5 Mcg 2 puff INHALATION RT-BID 04/11/22 04/11/22 History [Symbicort 160-4.5 Mcg Inhaler] Empagliflozin [Jardiance] 10 mg PO DAILY@1200 04/11/22 04/11/22 History Metoprolol Tartrate [Lopressor] 100 mg PO BID 04/11/22 04/11/22 History Allergies Allergy/AdvReac Type Severity Reaction Status Date / Time pregabalin [From Lyrica] Allergy Swelling Verified 04/11/22 17:49 amoxicillin trihydrate AdvReac Rapid Verified 04/11/22 17:49 [From Augmentin] Heart Rate potassium clavulanate AdvReac FELT LIKE Verified 04/11/22 17:49 [From Augmentin] HE WAS GOING TO PASS OUT FAST HEARTBEAT" Physical Exam Vitals: Vital Signs Temp Pulse Pulse Resp BP BP Pulse Ox 04/12/22 07:58 98.4 F 72 20 124/77 96 04/12/22 03:51 97.0 F L 71 18 118/71 95 04/12/22 01:52 98 18 04/11/22 23:35 97.7 F 98 18 137/70 96 04/11/22 21:19 97.6 F 94 20 141/75 99 04/11/22 21:15 94 20 04/11/22 20:49 85 16 146/76 98 04/11/22 20:08 76 16 132/77 98 04/11/22 19:08 68 16 130/75 98 04/11/22 17:23 112 H 20 140/86 96 04/11/22 17:18 122 H 04/11/22 17:07 105 H 04/11/22 16:14 105 H 04/11/22 16:07 113 H 22 126/76 95 04/11/22 15:48 97.6 F 132 H 20 130/91 96 Intake and Output 04/11/22 04/12/22 04/12/22 22:59 06:59 14:59 Output Total 1999 550 Balance -1999 Output: Urine 1999 Other: Voiding Method Urinal Urinal Weight 104.326 kg 104.7 kg Results CBC & Chem 7: 04/11/22 16:32 04/11/22 16:32 Labs: Abnormal Lab Results - Last 24 Hours (Table) 04/11/22 04/11/22 04/12/22 Range/Units 16:32 16:32 06:07 RBC 3.95 L (4.30-5.90) m/uL Hgb 11.9 L (13.0-17.5) gm/dL Hct 38.1 L (39.0-53.0) % Chloride 110 H (98-107) mmol/L Carbon Dioxide 17 L (22-30) mmol/L Glucose 119 H (74-99) mg/dL POC Glucose (mg/dL) 120 H (70-110) mg/dL Total Protein 6.1 L (6.3-8.2) g/dL Thrombosis Risk Factor Assmnt - Choose All That Apply Any of the Below Risk Factors Present?: Yes Each Factor Represents 1 point: Abnormal pulmonary function (COPD), Heart failure (<1month), Swollen legs (current) Other Risk Factors: Yes Each Risk Factor Represents 2 Points: Age 61-74 years Other congenital or acquired thrombophilia - If yes, enter type in comment: No Thrombosis Risk Factor Assessment Total Risk Factor Score: 5 Thrombosis Risk Factor Assessment Level: High Risk
[2022-04-12] MEDS: NICOTINE 7MG/24HR PATCH TRANSDERM SCH (18:42)
[2022-04-12 20:20] LABS: Glucose,Whole Blood 111 mg/dL (70-110)
[2022-04-12] MEDS: rOPINIRole HCL 4 MG TABLET PO SCH (20:21)
[2022-04-12] MEDS: LATANOPROST 0.005% OPHTH DROPS 2.5 ML BTL BOTH EYES SCH (20:22)
[2022-04-13 06:13] LABS: Glucose,Whole Blood 110 mg/dL (70-110)
[2022-04-13] MEDS: METOPROLOL TARTRATE 50 MG TAB PO SCH ×2 (06:18→19:53)
[2022-04-13] MEDS: SYMBICORT 160-4.5 MCG INHALER INHALATION SCH ×2 (07:22→19:49)
[2022-04-13 08:07] LABS: Calcium 9.1 mg/dL (8.4-10.2); Potassium 5.1 mmol/L (3.5-5.1)
[2022-04-13] MEDS: NICOTINE 7MG/24HR PATCH TRANSDERM SCH (08:53)
[2022-04-13] MEDS: CYCLOBENZAPRINE 10 MG TAB PO SCH ×3 (08:54→19:52)
[2022-04-13] MEDS: oxyCODONE-APAP 10-325MG 1 EACH TAB PO PRN ×2 (08:54→19:51)
[2022-04-13] MEDS: LORATADINE 10 MG TAB PO SCH (08:55)
[2022-04-13] MEDS: MONTELUKAST 10 MG TAB PO SCH (08:55)
[2022-04-13] MEDS: TAMSULOSIN 0.4 MG CAP.ER.24H PO SCH (08:55)
[2022-04-13] MEDS: APIXABAN 2.5 MG TABLET PO SCH ×2 (08:55→19:52)
[2022-04-13] MEDS: SOTALOL 80 MG TAB PO SCH ×2 (08:56→20:37)
[2022-04-13] MEDS: SPIRONOLACTONE 25 MG TAB PO SCH (08:56)
[2022-04-13] MEDS ORDERED: SACUBITRIL/VALSARTAN 24 MG-26 MG TABLET PO SCH (09:00)
--- NOTE | 2022-04-13 11:30 | CA ---
Transthoracic Echo Report Name: Torsten Herrera Age: 61 Gender: M : 1960 Exam Date: 04/12/2022 11:23 Exam Location: [facility] Ht (in): 72 Wt (lb): 230 Ordering Physician: Nguyen Reid Attending/Referring Phys: Hemal Avila MD ([id number]) Corporate Health Consultant Luciana Tatum RDCS Procedure CPT: Indications: LV function, wan to see if patient's EF improved Cardiac Hx: Technical Quality: Technically difficult study Contrast 1: Lumason Total Dose (mL): 4 Contrast 2: Total Dose (mL): MEASUREMENTS (Male / Female) Normal Values 2D ECHO LV Diastolic Diameter PLAX 5.5 cm 4.2 - 5.9 / 3.9 - 5.3 cm LV Systolic Diameter PLAX 3.8 cm IVS Diastolic Thickness 1.5 cm 0.6 - 1.0 / 0.6 - 0.9 cm LVPW Diastolic Thickness 1.3 cm 0.6 - 1.0 / 0.6 - 0.9 cm LV Relative Wall Thickness 0.5 FINDINGS Left Ventricle Limited study to evaluate EF. Left ventricular ejection fraction is estimated at 45 %. Right Ventricle Mild to moderately dilated right ventricle. Right Atrium Left Atrium Mitral Valve Aortic Valve Tricuspid Valve Pulmonic Valve Pericardium No pericardial effusion. Aorta CONCLUSIONS Limited 2-D echo Left ventricular ejection fraction 45% Mild to moderately dilated right ventricle Previewed by: Dr. Roque Neves DO (Electronically Signed) Final Date: 13 April 2022 11:29
[2022-04-13 11:34] LABS: Glucose,Whole Blood 118 mg/dL (70-110)
[2022-04-13] MEDS: PANTOPRAZOLE 40 MG TABLET PO SCH (12:16)
[2022-04-13] MEDS: PATIENT'S OWN (Empagliflozin [Jardiance] 10 MG Tablet) PO SCH (12:16)
--- NOTE | 2022-04-13 13:04 | P.PN ---
Subjective This is a 61 year old male with a past medical history of persistent atrial fibrillation on Eliquis, Prior cardioverson on 12/2021, nonischemic cardi omyopathy (from cardiac cath in 11/2016), mild nonobstructive coronary artery disease, moderate aortic regurgitation, hypertension, dyslipidemia, chronic nicotine dependence, cirrhosis of liver, pancreatitis secondary to history of alcohol, Alvarenga's esophagus, COPD. He follow with Dr. Avila. We have been asked to see in consultation for atrial fibrillation and congestive heart failure. Patient presents to the emergency department with worsening shortness of breath, lower extremity edema. He states that he was taken off of his Lasix and Aldactone 8 days ago due to his kidney function being abnormal. His symptoms have been worsening ever since. He also relates that he has a scheduled routine EGD tomorrow with Dr. Avila and has been off of his blood thinners since Monday, 3 days ago. He is a chronic smoker, smokes less than 1/2 PPD. Stopped drinking alcohol 01/23/22. History of cocaine use. DIAGNOSTICS * EKG reveals atrial fibrillation with RVR, heart rate 106, no significant ST or T-wave a mallet the cyst chest ischemia * MANN on 12/2021- no intracardiac thrombus, severe LV dysfunction with an EF of 35%, mild to moderate mitral regurgitation, mild to moderate regurgitation, severe left atrial enlargement no evidence of shunt. * 2D Echocardiogram 11/2021 revealed EF 3540%, mild aortic regurgitation, mild tricuspid regurgitation, mild pulmonary hypertension with RVSP 41 mmHg * Prior echocardiogram in the office 11/2020 revealed an EF of 55%, moderate to severe aortic regurgitation, mild tricuspid regurgitation, mild mitral regurgitation * Recent Lexiscan stress test 10/15/2021 revealed probably normal myocardial perfusion and function with a fixed inferior wall defect secondary to soft tissue attenuation * Most recent cardiac catheterization 11/2016 revealed mild nonobstructive co ronary artery disease involving the circumflex coronary artery 04/13 Patient seen and examined at bedside, no acute distress. His breathing is stable. No chest pain He continues to be in atrial fibrillation with heart rates 100-120s. BUN 20, serum creatinine 1.06 Patient with -1040mL Echocardiogram revealed EF of 45%, mild to moderately dilated right ventricle He's currently maintained on sotalol 80 mg twice a day, spironolactone 25 mg daily, metoprolol tartrate 50 mg twice a day, Eliquis 2.5 mg twice a day PHYSICAL EXAMINATION Vitals reviewed CONSTITUTIONAL: No apparent distress. HEENT: Head is normocephalic. Pupils are equal, round. Sclerae anicteric. Mucous membranes of the mouth are moist. No JVD. No carotid bruit. CHEST EXAMINATION: Lungs are diminished to auscultation. No chest wall tenderness is noted on palpation or with deep breathing. HEART EXAMINATION: Irregular rate and rhythm. S1, S2 heard. Systolic and diastolic murmur noted ABDOMEN: Soft, nontender. Positive bowel sounds. EXTREMITIES: 2+ peripheral pulses, 1-2+ bilateral lower extremity edema and no calf tenderness. NEUROLOGIC EXAMINATION: Patient is awake, alert and oriented x3. ASSESSMENT Persistent atrial fibrillation with RVR [id number] score 2, on Eliquis, previous MANN cardioversion on 01/03/22 Acute on chronic heart failure with improved ejection fraction 45% Nonischemic Cardiomyopathy Recently was taken off of his Lasix and Aldactone 8 days ago due to his kidney function being abnormal Mild nonobstructive coronary artery disease involving the circumflex from cardiac cath 11/2016 History of hypertension Dyslipidemia Chronic nicotine dependence Valvular heart disease History of cocaine use History of alcohol use, recently quit 01/2022 PLAN Maximize heart failure regimen Start Entresto tonight Metoprolol tartrate 50mg BID, adjust as tolerated Sotalol 80mg BID Spironolactone 25mg daily Monitor I/Os, daily weights, renal function and electrolytes Continue Eliquis 5mg BID. Further recommendations based on clinical course Nurse practitioner note has been reviewed by physician. Signing provider agrees with the documented findings, assessment, and plan of care. Objective - Vital Signs Vital signs: Vital Signs Temp 98.4 F 04/13/22 08:00 Pulse 125 H 04/13/22 08:00 Resp 16 04/13/22 08:00 BP 130/89 04/13/22 08:00 Pulse Ox 96 04/13/22 08:00 FiO2 Intake & Output 04/12/22 04/13/22 04/13/22 18:59 06:59 18:59 Intake Total 360 Output Total 900 500 400 Balance -540 -500 -400 Weight 105.6 kg Intake: Oral 360 Output: Urine 900 500 400 Other: Voiding Method Urinal Urinal Urinal - Labs CBC & Chem 7: 04/11/22 16:32 04/13/22 07:00 Labs: Abnormal Lab Results - Last 24 Hours (Table) 04/12/22 04/12/22 04/13/22 Range/Units 16:47 20:14 11:32 POC Glucose (mg/dL) 133 H 111 H 118 H (70-110) mg/dL
--- NOTE | 2022-04-13 14:27 | P.PN ---
Progress Note - Text Progress Note Date: 04/13/22 Chief Complaint: Short of breath This is a [address] Chavez. Chronic stable medical conditions include COPD, fibromyalgia, hypertension, osteoarthritis, chronic pancreatitis from alcoholism, peripheral neuropathy varicose veins, restless leg syndrome, BP H surgery, Alvarenga's esophagus and chronic low back pain from osteoarthritis. Alcohol use disorder with cirrhosis. Last drink was about a month ago. Still smokes about 2 cigarettes a day. About March 22, Patient was taken off Lasix because of worsening renal function. Gradually patient started having increasing leg edema which no significant. Slight cough. Increase in shortness of breath. Orthopnea. No fever no chills. Appetite is fair. No change in bowel pattern. In the ER found to be in atrial fibrillation with rapid ventricular rate. Given IV Lasix. Put on Cardizem drip. April 13: Sitting up in bed. A bit tired. Eating fair. Atrial flutter rate just above 100. Be started on an Entresto tonight. Encouraged to sit up in a chair. Active Medications Acetaminophen (Acetaminophen Tab 325 Mg Tab) 650 mg PO Q6HR PRN PRN Reason: Mild Pain or Fever > 100.5 Apixaban (Apixaban 2.5 Mg Tablet) 2.5 mg PO BID [facility]; Protocol Last Admin: 04/13/22 08:55 Dose: 2.5 mg Budesonide/Formoterol Fumarate (Symbicort 160-4.5 Mcg Inhaler) 2 puff INHALATION RT-BID [facility] Last Admin: 04/13/22 07:22 Dose: 2 puff Cyclobenzaprine HCl (Cyclobenzaprine 10 Mg Tab) 10 mg PO TID [facility] Last Admin: 04/13/22 08:54 Dose: 10 mg Latanoprost (Latanoprost 0.005% Ophth Drops 2.5 Ml Btl) 1 drops BOTH EYES HS [facility] Last Admin: 04/12/22 20:22 Dose: 1 drops Loratadine (Loratadine 10 Mg Tab) 10 mg PO DAILY@1200 [facility] Last Admin: 04/13/22 08:55 Dose: 10 mg Metoprolol Tartrate (Metoprolol Tartrate 50 Mg Tab) 50 mg PO BID [facility] Last Admin: 04/13/22 06:18 Dose: 50 mg Montelukast Sodium (Montelukast 10 Mg Tab) 10 mg PO DAILY@1200 [facility] Last Admin: 04/13/22 08:55 Dose: 10 mg Naloxone HCl (Naloxone 0.4 Mg/Ml 1 Ml Vial) 0.2 mg IV Q2M PRN PRN Reason: Opioid Reversal Nicotine (Nicotine 7mg/24hr Patch) 1 patch TRANSDERM DAILY [facility] Last Admin: 04/13/22 08:53 Dose: 1 patch Patient's Own ( Empagliflozin [ Jardiance] 10 Mg Tablet) 10 mg PO DAILY@1200 [facility] Last Admin: 04/13/22 12:16 Dose: Not Given Ondansetron HCl (Ondansetron 4 Mg/2 Ml Vial) 4 mg IVP Q8HR PRN PRN Reason: Nausea And Vomiting Oxycodone/Acetaminophen (Oxycodone-Apap 10-325mg 1 Each Tab) 1 each PO Q8HR PRN PRN Reason: Pain Last Admin: 04/13/22 08:54 Dose: 1 each Pantoprazole Sodium (Pantoprazole 40 Mg Tablet) 40 mg PO DAILY@1200 [facility] Last Admin: 04/13/22 12:16 Dose: 40 mg Ropinirole HCl (Ropinirole Hcl 4 Mg Tablet) 4 mg PO HS [facility] Last Admin: 04/12/22 20:21 Dose: 4 mg Sacubitril/Valsartan (Sacubitril/Valsartan 24 Mg-26 Mg Tablet) 1 each PO BID [facility] Sotalol HCl (Sotalol 80 Mg Tab) 80 mg PO BID [facility] Last Admin: 04/13/22 08:56 Dose: 80 mg Spironolactone (Spironolactone 25 Mg Tab) 25 mg PO DAILY [facility] Last Admin: 04/13/22 08:56 Dose: 25 mg Tamsulosin HCl (Tamsulosin 0.4 Mg Cap.Er.24h) 0.4 mg PO DAILY@1200 [facility] Last Admin: 04/13/22 08:55 Dose: 0.4 mg Past medical history to include: COPD, fibromyalgia, hypertension, osteoarthritis, chronic pancreatitis from alcoholism, peripheral neuropathy, varicose pains, restless leg syndrome, BPH with surgery, Alvarenga's esophagus, chronic low back pain from osteoarthritis, alcohol use disorder with cirrhosis, Social history: Patient lives with his sister Ewelina. Smoked for close to 42 years. Now down to a few cigarettes a day.. Drinking alcohol for years. Stopped for about a month. Physical examination: VITAL SIGNS: 98.4, 125, 16, 1:30/89, 96% on room air GENERAL: reclining in bed, awake, tired EYES: Pupils equal. Conjunctiva normal. HEENT: External appearance of nose and ears normal, oral cavity grossly normal. NECK: JVD raised; masses not palpable. HEART: Heart sounds irregular; significant edema. LUNGS: Respiratory rate increased; decreased breath sounds, ABDOMEN: Soft, distended, nontender, liver spleen not palpable, no masses palpable. divarification of recti . PSYCH: Alert and oriented x3; mood and affect anxiousl. MUSCULOSKELETAL:No Clubbing/cyanosis;muscles-grossly intact. evidence of OA NEUROLOGICAL: Cranial nerves grossly intact; no facial asymmetry, power and sensation grossly intact. LYMPHATICS: No lymph nodes palpable in the axilla and neck INVESTIGATIONS, reviewed in the clinical context: April 13: Potassium 5.1 creatinine 1.06 Limited 2-D echocardiogram: EF 45%. Mild to moderate dilated right ventricle. WBC 5.8 hemoglobin 11.9 platelets 286 potassium 4.5 BUN 16 creatinine 1.0 Troponin I 3 negative COVID 19: Not detected EKG tracing personally reviewed by me-atrial flutter with a ventricular rate of 106. Some ST segment changes. Chest x-ray film personally reviewed by me-cardiomegaly. Venous prominence. Some cephalization. Previous studies Abdominal ultrasound: Evidence of cirrhosis 2-D echocardiogram: Moderate concentric LVH. EF 35-40%. Right ventricular moderately enlarged. Assessment and plan: -Acute worsening of atrial flutter fibrillation rate : Remains uncontrolled Initially got IV Cardizem. Eliquis. Lopressor 50 mg twice a day. Follow with cardiology. -Acute congestive heart failure exacerbation from systolic and diastolic dysfunction EF 45 %: Given IV Lasix initially.. Aldactone 25 mg. Entresto being added today. - chronic pancreatitis from alcoholism: - COPD exacerbation in a cigarette smoker, Symbicort 160/4.52 puffs twice a day., -Alcohol-induced cirrhosis: [id number] mg a day. Low-salt diet. -Chronic nicotine dependence, cigarette smoker Nicotine patch 7 -Chronic fibromyalgia Flexeril 10 mg 3 times a day -Essential hypertension Zestril 20 mg a day. Lopressor 50 mg 3 times a day a day -Primary osteoarthritis, multiple joints bilaterally Pain medications as needed -Alcoholic peripheral neuropathy -restless leg syndrome Requip 4 mg daily at bedtime -Alvarenga's esophagus Protonix 40 mg a day -Full code Heart rate remains uncontrolled. On Lopressor. Entresto being added by cardiology today. Anchors to sit up in a chair. Other medications to continue.
[2022-04-13 16:47] LABS: Glucose,Whole Blood 115 mg/dL (70-110)
[2022-04-13] MEDS: SACUBITRIL/VALSARTAN 24 MG-26 MG TABLET PO SCH (19:52)
[2022-04-13] MEDS: LATANOPROST 0.005% OPHTH DROPS 2.5 ML BTL BOTH EYES SCH (19:53)
[2022-04-13 20:18] LABS: Glucose,Whole Blood 110 mg/dL (70-110)
[2022-04-13] MEDS: rOPINIRole HCL 4 MG TABLET PO SCH (20:37)
[2022-04-14] MEDS: oxyCODONE-APAP 10-325MG 1 EACH TAB PO PRN ×3 (04:58→22:45)
[2022-04-14 06:24] LABS: Glucose,Whole Blood 94 mg/dL (70-110)
[2022-04-14] MEDS: SYMBICORT 160-4.5 MCG INHALER INHALATION SCH ×2 (07:34→21:03)
[2022-04-14] MEDS: NICOTINE 7MG/24HR PATCH TRANSDERM SCH (08:51)
[2022-04-14] MEDS: CYCLOBENZAPRINE 10 MG TAB PO SCH ×3 (08:52→22:45)
[2022-04-14] MEDS: METOPROLOL TARTRATE 50 MG TAB PO SCH ×2 (08:52→20:11)
[2022-04-14] MEDS: LORATADINE 10 MG TAB PO SCH (08:52)
[2022-04-14] MEDS: APIXABAN 2.5 MG TABLET PO SCH (08:52)
[2022-04-14] MEDS: SPIRONOLACTONE 25 MG TAB PO SCH (08:52)
[2022-04-14] MEDS: MONTELUKAST 10 MG TAB PO SCH (08:52)
[2022-04-14] MEDS: TAMSULOSIN 0.4 MG CAP.ER.24H PO SCH (08:52)
[2022-04-14] MEDS: PANTOPRAZOLE 40 MG TABLET PO SCH (08:53)
[2022-04-14] MEDS: SOTALOL 80 MG TAB PO SCH ×2 (08:53→20:12)
[2022-04-14] MEDS: SACUBITRIL/VALSARTAN 24 MG-26 MG TABLET PO SCH ×2 (08:53→20:11)
[2022-04-14] MEDS ORDERED: APIXABAN 2.5 MG TABLET PO ONE (09:27)
[2022-04-14] MEDS: PATIENT'S OWN (Empagliflozin [Jardiance] 10 MG Tablet) PO SCH (11:08)
[2022-04-14 11:46] LABS: Glucose,Whole Blood 125 mg/dL (70-110)
--- NOTE | 2022-04-14 12:10 | CDI ---
Documentation Clarification Form Date: 04/15/2022 11:55:29 AM From: Brooke Evans CCS, CCDS Admit Date: 04/11/2022 08:05:00 PM Patient Name: Torsten Herrera Visit Number: [id number] Discharge Date: ATTENTION: The Clinical Documentation Specialists (CDI) and [facility] Coding Staff appreciate your assistance in clarifying documentation. Please respond to the clarification below the line at the bottom and electronically sign. The CDI & [facility] Coding staff will review the response and follow-up if needed. Please note: Queries are made part of the Legal Health Record. If you have any questions, please contact the author of this message via ITS. Dr. Quirino Ann: Atrial Flutter is documented in the 04/12 Cardiology Consult: Telemetry tracings indicate atrial flutter heart rates in the 60s-70s. Assessment: Persistent atrial fibrillation with RVR. Per the 04/12 History & Physical and subsequent Progress Note: Acute worsening of atrial flutter rate uncontrolled on presentation and remains uncontrolled on 04/13. Additional clarification regarding the type of Atrial Flutter is requested. History/Risk factors per the 04/12 H/P: COPD, Fibromyalgia, Hypertension, Osteoarthritis, Chronic Pancreatitis from Alcoholism, Peripheral Neuropathy, Varicose Veins, Restless Syndrome, BPH status post-surgery, Alvarenga's Esophagus and Chronic low back pain from OA, Alcoholic cirrhosis, Smoker. Clinical Indicators: Presented to the ED on 04/11 with SOB, worse with exertion. Has chronic smoker's cough. Has history of CHF & worsening lower extremity edema, abdomen appears very bloated (patient states that is normal). Recently taken off his Lasix & Aldactone eight days ago due to kidney function and scheduled EGD on 04/12, now with worsening symptoms. Has atrial fibrillation and feels like it is worse. Admit with Congestive Heart Failure, Atrial Fibrillation with RVR, Lower Extremity Edema, COPD and Anemia. 04/11 EKG: R 106 Atrial Flutter/Tachycardia with RVR, Septal [place], probably old. 04/12 ECHO to evaluate patient's EF: EF 45%, Mild-moderately dilated right ventricle. Treatment 04/11: O2: 2L prn, PO Aspirin 324 mg x1, IV Cardizem Drip bolus 10 mg x1, IV Lasix 40 mg x1, INH Duoneb 0.5 mg 3ml x1, IV Cardizem 125 mls @ 5 mls/hr q24H, po Eliquis 2.5 mg BID, po Lopressor 100 mg BID 04/12: Telemetry, INH Symbicort 2 puffs BID, po Betapace 80 mg BID, po Aldactone 25 mg Daily. po Zestril 20 mg Daily, po Lopressor 50 mg BID. 04/13: po Entresto 24 mg BID. 04/14: po Eliquis 2.5 mg x1, 5 mg BID. Please clarify the type of Atrial Flutter, if known: [ ] Typical/Type I [ ] Atypical/Type II [ ] Other, please specify: [ ] Unable to determine (Template Last Revised: October 2020) This is persistent atrial fibrillation with RVR This was not atrial flutter MTDD
--- NOTE | 2022-04-14 13:22 | P.PN ---
Subjective This is a 61 year old male with a past medical history of persistent atrial fibrillation on Eliquis, Prior cardioverson on 12/2021, nonischemic cardi omyopathy (from cardiac cath in 11/2016), mild nonobstructive coronary artery disease, moderate aortic regurgitation, hypertension, dyslipidemia, chronic nicotine dependence, cirrhosis of liver, pancreatitis secondary to history of alcohol, Alvarenga's esophagus, COPD. He follow with Dr. Avila. We have been asked to see in consultation for atrial fibrillation and congestive heart failure. Patient presents to the emergency department with worsening shortness of breath, lower extremity edema. He states that he was taken off of his Lasix and Aldactone 8 days ago due to his kidney function being abnormal. His symptoms have been worsening ever since. He also relates that he has a scheduled routine EGD tomorrow with Dr. Avila and has been off of his blood thinners since Monday, 3 days ago. He is a chronic smoker, smokes less than 1/2 PPD. Stopped drinking alcohol 01/23/22. History of cocaine use. DIAGNOSTICS * EKG reveals atrial fibrillation with RVR, heart rate 106, no significant ST or T-wave a mallet the cyst chest ischemia * MANN on 12/2021- no intracardiac thrombus, severe LV dysfunction with an EF of 35%, mild to moderate mitral regurgitation, mild to moderate regurgitation, severe left atrial enlargement no evidence of shunt. * 2D Echocardiogram 11/2021 revealed EF 3540%, mild aortic regurgitation, mild tricuspid regurgitation, mild pulmonary hypertension with RVSP 41 mmHg * Prior echocardiogram in the office 11/2020 revealed an EF of 55%, moderate to severe aortic regurgitation, mild tricuspid regurgitation, mild mitral regurgitation * Recent Lexiscan stress test 10/15/2021 revealed probably normal myocardial perfusion and function with a fixed inferior wall defect secondary to soft tissue attenuation * Most recent cardiac catheterization 11/2016 revealed mild nonobstructive co ronary artery disease involving the circumflex coronary artery 04/14 Patient seen and examined at bedside, no acute distress. His breathing is stable, continues to have some shortness of breath. No palpitations. No chest pain. He continues to be in atrial fibrillation with heart rates 100-120s. Echocardiogram revealed EF of 45%, mild to moderately dilated right ventricle He's currently maintained on Entresto 24-26mg BID, sotalol 80 mg twice a day, spironolactone 25 mg daily, metoprolol tartrate 50 mg twice a day, Eliquis 2.5 mg twice a day PHYSICAL EXAMINATION Vitals reviewed CONSTITUTIONAL: No apparent distress. HEENT: Head is normocephalic. Pupils are equal, round. Sclerae anicteric. Mucous membranes of the mouth are moist. No JVD. No carotid bruit. CHEST EXAMINATION: Lungs are diminished to auscultation. No chest wall tenderness is noted on palpation or with deep breathing. HEART EXAMINATION: Irregular rate and rhythm. S1, S2 heard. Systolic and diastolic murmur noted ABDOMEN: Soft, nontender. Positive bowel sounds. EXTREMITIES: 2+ peripheral pulses, 1-2+ bilateral lower extremity edema and no calf tenderness. NEUROLOGIC EXAMINATION: Patient is awake, alert and oriented x3. ASSESSMENT Persistent atrial fibrillation with RVR [id number] score 2, on Eliquis, previous MANN cardioversion on 01/03/22 Acute on chronic heart failure with improved ejection fraction 45% Nonischemic Cardiomyopathy Recently was taken off of his Lasix and Aldactone 8 days ago due to his kidney function being abnormal Mild nonobstructive coronary artery disease involving the circumflex from cardiac cath 11/2016 History of hypertension Dyslipidemia Chronic nicotine dependence Valvular heart disease History of cocaine use History of alcohol use, recently quit 01/2022 PLAN Plan for cardioversion tomorrow with Dr. Seth SPANGLER after midnight Unsure why patient's Eliquis was reduced to 2.5mg BID, increase to 5mg BID. Maximize heart failure regimen Continue Entresto tonight Metoprolol tartrate 50mg BID Sotalol 80mg BID Spironolactone 25mg daily Monitor I/Os, daily weights, renal function and electrolytes I have discussed the risks, benefits and alternative therapies for the above- mentioned procedure and for both sedation/analgesia as they pertain to this patient. The patient has indicated understanding and acceptance of the risks and procedures discussed. Questions have been answered appropriately and he is agreeable to move forward with the above-stated procedure. Further recommendations based on clinical course Nurse practitioner note has been reviewed by physician. Signing provider agrees with the documented findings, assessment, and plan of care. Objective - Vital Signs Vital signs: Vital Signs Temp 98.2 F 04/14/22 11:47 Pulse 130 H 04/14/22 11:47 Resp 18 04/14/22 11:47 BP 123/77 04/14/22 11:47 Pulse Ox 95 04/14/22 11:47 FiO2 Intake & Output 04/13/22 04/14/22 04/14/22 18:59 06:59 18:59 Intake Total 240 180 Output Total 700 680 Balance -700 -440 180 Weight 105.6 kg Intake: Oral 240 180 Output: Urine 700 680 Other: Voiding Method Urinal Urinal Urinal # Voids 1 - Labs CBC & Chem 7: 04/11/22 16:32 04/13/22 07:00 Labs: Abnormal Lab Results - Last 24 Hours (Table) 04/13/22 04/14/22 Range/Units 16:46 11:45 POC Glucose (mg/dL) 115 H 125 H (70-110) mg/dL
--- NOTE | 2022-04-14 16:02 | P.PN ---
Progress Note - Text Progress Note Date: 04/14/22 Chief Complaint: Short of breath This is a [address] Chavez. Chronic stable medical conditions include COPD, fibromyalgia, hypertension, osteoarthritis, chronic pancreatitis from alcoholism, peripheral neuropathy varicose veins, restless leg syndrome, BP H surgery, Alvarenga's esophagus and chronic low back pain from osteoarthritis. Alcohol use disorder with cirrhosis. Last drink was about a month ago. Still smokes about 2 cigarettes a day. About March 22, Patient was taken off Lasix because of worsening renal function. Gradually patient started having increasing leg edema which no significant. Slight cough. Increase in shortness of breath. Orthopnea. No fever no chills. Appetite is fair. No change in bowel pattern. In the ER found to be in atrial fibrillation with rapid ventricular rate. Given IV Lasix. Put on Cardizem drip. April 13: Sitting up in bed. A bit tired. Eating fair. Atrial flutter rate just above 100. Be started on an Entresto tonight. Encouraged to sit up in a chair. April 14: Some cough some improvement in shortness of breath. Heart rate still up. Plan is for cardioversion tomorrow. Active Medications Acetaminophen (Acetaminophen Tab 325 Mg Tab) 650 mg PO Q6HR PRN PRN Reason: Mild Pain or Fever > 100.5 Apixaban (Apixaban 5 Mg Tab) 5 mg PO BID [facility]; Protocol Budesonide/Formoterol Fumarate (Symbicort 160-4.5 Mcg Inhaler) 2 puff INHALATION RT-BID [facility] Last Admin: 04/14/22 07:34 Dose: 2 puff Cyclobenzaprine HCl (Cyclobenzaprine 10 Mg Tab) 10 mg PO TID [facility] Last Admin: 04/14/22 15:18 Dose: 10 mg Latanoprost (Latanoprost 0.005% Ophth Drops 2.5 Ml Btl) 1 drops BOTH EYES HS [facility] Last Admin: 04/13/22 19:53 Dose: 1 drops Loratadine (Loratadine 10 Mg Tab) 10 mg PO DAILY@1200 [facility] Last Admin: 04/14/22 08:52 Dose: 10 mg Metoprolol Tartrate (Metoprolol Tartrate 50 Mg Tab) 50 mg PO BID [facility] Last Admin: 04/14/22 08:52 Dose: 50 mg Montelukast Sodium (Montelukast 10 Mg Tab) 10 mg PO DAILY@1200 [facility] Last Admin: 04/14/22 08:52 Dose: 10 mg Naloxone HCl (Naloxone 0.4 Mg/Ml 1 Ml Vial) 0.2 mg IV Q2M PRN PRN Reason: Opioid Reversal Nicotine (Nicotine 7mg/24hr Patch) 1 patch TRANSDERM DAILY [facility] Last Admin: 04/14/22 08:51 Dose: Not Given Patient's Own ( Empagliflozin [ Jardiance] 10 Mg Tablet) 10 mg PO DAILY@1200 [facility] Last Admin: 04/14/22 11:08 Dose: Not Given Ondansetron HCl (Ondansetron 4 Mg/2 Ml Vial) 4 mg IVP Q8HR PRN PRN Reason: Nausea And Vomiting Oxycodone/Acetaminophen (Oxycodone-Apap 10-325mg 1 Each Tab) 1 each PO Q8HR PRN PRN Reason: Pain Last Admin: 04/14/22 15:17 Dose: 1 each Pantoprazole Sodium (Pantoprazole 40 Mg Tablet) 40 mg PO DAILY@1200 [facility] Last Admin: 04/14/22 08:53 Dose: 40 mg Ropinirole HCl (Ropinirole Hcl 4 Mg Tablet) 4 mg PO HS [facility] Last Admin: 04/13/22 20:37 Dose: 4 mg Sacubitril/Valsartan (Sacubitril/Valsartan 24 Mg-26 Mg Tablet) 1 each PO BID [facility] Last Admin: 04/14/22 08:53 Dose: 1 each Sotalol HCl (Sotalol 80 Mg Tab) 80 mg PO BID [facility] Last Admin: 04/14/22 08:53 Dose: 80 mg Spironolactone (Spironolactone 25 Mg Tab) 25 mg PO DAILY [facility] Last Admin: 04/14/22 08:52 Dose: 25 mg Tamsulosin HCl (Tamsulosin 0.4 Mg Cap.Er.24h) 0.4 mg PO DAILY@1200 [facility] Last Admin: 04/14/22 08:52 Dose: 0.4 mg Past medical history to include: COPD, fibromyalgia, hypertension, osteoarthritis, chronic pancreatitis from alcoholism, peripheral neuropathy, varicose pains, restless leg syndrome, BPH with surgery, Alvarenga's esophagus, chronic low back pain from osteoarthritis, alcohol use disorder with cirrhosis, Social history: Patient lives with his sister Ewelina. Smoked for close to 42 years. Now down to a few cigarettes a day.. Drinking alcohol for years. Stopped for about a month. Physical examination: VITAL SIGNS: 98.2, 1:30, 18, 1 23 x 77, 95% room air GENERAL: Sitting on bed, looking bit better EYES: Pupils equal. Conjunctiva normal. HEENT: External appearance of nose and ears normal, oral cavity grossly normal. NECK: JVD raised; masses not palpable. HEART: Heart sounds irregular; significant edema. LUNGS: Respiratory rate increased; decreased breath sounds, ABDOMEN: Soft, distended, nontender, liver spleen not palpable, no masses palpable. divarification of recti . PSYCH: Alert and oriented x3; mood and affect anxiousl. MUSCULOSKELETAL:No Clubbing/cyanosis;muscles-grossly intact. evidence of OA INVESTIGATIONS, reviewed in the clinical context: April 13: Potassium 5.1 creatinine 1.06 Limited 2-D echocardiogram: EF 45%. Mild to moderate dilated right ventricle. WBC 5.8 hemoglobin 11.9 platelets 286 potassium 4.5 BUN 16 creatinine 1.0 Troponin I 3 negative COVID 19: Not detected EKG tracing personally reviewed by me-atrial flutter with a ventricular rate of 106. Some ST segment changes. Chest x-ray film personally reviewed by me-cardiomegaly. Venous prominence. Some cephalization. Previous studies Abdominal ultrasound: Evidence of cirrhosis 2-D echocardiogram: Moderate concentric LVH. EF 35-40%. Right ventricular moderately enlarged. Assessment and plan: -Acute worsening of atrial flutter fibrillation rate : Remains uncontrolled Initially got IV Cardizem. Eliquis. Lopressor 50 mg twice a day. Sotalol 80 mg twice a day -Acute congestive heart failure exacerbation from systolic and diastolic dysfunction EF 45 %: Given IV Lasix initially.. Aldactone 25 mg. Entresto - chronic pancreatitis from alcoholism: - COPD exacerbation in a cigarette smoker,: Better Symbicort 160/4.52 puffs twice a day., -Alcohol-induced cirrhosis: [id number] mg a day. Low-salt diet. -Chronic nicotine dependence, cigarette smoker Nicotine patch 7 -Chronic fibromyalgia Flexeril 10 mg 3 times a day -Essential hypertension Zestril 20 mg a day. Lopressor 50 mg twice a day -Primary osteoarthritis, multiple joints bilaterally Pain medications as needed -Alcoholic peripheral neuropathy -restless leg syndrome Requip 4 mg daily at bedtime -Alvarenga's esophagus Protonix 40 mg a day -Full code Continue current medications. Discussed with the patient. Plan for cardioversion tomorrow. Follow with oncology.
[2022-04-14 16:27] LABS: Glucose,Whole Blood 105 mg/dL (70-110)
[2022-04-14] MEDS: rOPINIRole HCL 4 MG TABLET PO SCH (20:11)
[2022-04-14] MEDS: APIXABAN 5 MG TAB PO SCH (20:12)
[2022-04-14 20:30] LABS: Glucose,Whole Blood 94 mg/dL (70-110)
[2022-04-14] MEDS: LATANOPROST 0.005% OPHTH DROPS 2.5 ML BTL BOTH EYES SCH (22:44)
[2022-04-15 00:36] VITALS: TEMP 97.7
[2022-04-15] MEDS: oxyCODONE-APAP 10-325MG 1 EACH TAB PO PRN ×3 (06:12→21:27)
[2022-04-15 06:33] LABS: Glucose,Whole Blood 109 mg/dL (70-110)
[2022-04-15] MEDS: APIXABAN 5 MG TAB PO SCH ×2 (06:40→20:15)
[2022-04-15] MEDS: SOTALOL 80 MG TAB PO SCH ×2 (06:40→20:16)
[2022-04-15] MEDS: METOPROLOL TARTRATE 50 MG TAB PO SCH ×2 (06:40→21:22)
[2022-04-15] MEDS: SPIRONOLACTONE 25 MG TAB PO SCH (06:40)
[2022-04-15] MEDS: CYCLOBENZAPRINE 10 MG TAB PO SCH ×3 (06:40→20:15)
[2022-04-15] MEDS: SACUBITRIL/VALSARTAN 24 MG-26 MG TABLET PO SCH ×2 (06:41→21:24)
[2022-04-15] MEDS: NICOTINE 7MG/24HR PATCH TRANSDERM SCH (06:41)
[2022-04-15] MEDS: SYMBICORT 160-4.5 MCG INHALER INHALATION SCH ×2 (08:12→19:28)
[2022-04-15 08:41] LABS: African American GFR (CKD) >90 (>60 ml/min/1.73 sqM); Anion Gap 9 mmol/L; Blood Urea Nitrogen 19 mg/dL (9-20); Calcium 9.2 mg/dL (8.4-10.2); Carbon Dioxide 23 mmol/L (22-30); Chloride 104 mmol/L (98-107); Glucose 109 mg/dL (74-99); Magnesium 1.9 mg/dL (1.6-2.3); Non-African American GFR(CKD) 82 (>60 ml/min/1.73 sqM); Sodium 136 mmol/L (137-145)
[2022-04-15] MEDS ORDERED: SODIUM CHLORIDE 0.9% 1,000 ML IV ONE (09:40)
[2022-04-15] MEDS ORDERED: PROPOFOL 10 MG/ML 20 ML VIAL IV ONE (09:55)
[2022-04-15] MEDS ORDERED: HEPARIN SODIUM,PORCINE 5,000 UNIT/ML 1 ML VIAL ONE (09:55)
--- NOTE | 2022-04-15 10:13 | P.EPPROC ---
- EP Procedure Note Electrophysiology Procedure Note: Procedure Electrical cardioversion for persistent atrial fibrillation with RVR Congestive heart failure Today's labs are as follows Sodium 136 potassium 5.0 BUN 19 and creatinine 0.99 Magnesium 1.9 Procedure Under conscious sedation at 200 J biphasic shock in the AP configuration converted to sinus rhythm Patient is on sotalol Plan Continue ELIQUIS 5 mg twice daily, not 2.5 mg twice daily Continue sotalol 80 mg twice daily Continue heart failure medications Twelve-lead EKG today and tomorrow BMP tomorrow along with magnesium
[2022-04-15 11:36] LABS: Glucose,Whole Blood 121 mg/dL (70-110)
[2022-04-15] MEDS: PATIENT'S OWN (Empagliflozin [Jardiance] 10 MG Tablet) PO SCH (11:43)
[2022-04-15] MEDS: TAMSULOSIN 0.4 MG CAP.ER.24H PO SCH (11:51)
[2022-04-15] MEDS: MONTELUKAST 10 MG TAB PO SCH (11:51)
[2022-04-15] MEDS: LORATADINE 10 MG TAB PO SCH (11:51)
[2022-04-15] MEDS: PANTOPRAZOLE 40 MG TABLET PO SCH (11:51)
[2022-04-15 16:44] LABS: Glucose,Whole Blood 161 mg/dL (70-110)
--- NOTE | 2022-04-15 17:44 | P.PN ---
Progress Note - Text Progress Note Date: 04/15/22 Chief Complaint: Short of breath This is a [address] Chavez. Chronic stable medical conditions include COPD, fibromyalgia, hypertension, osteoarthritis, chronic pancreatitis from alcoholism, peripheral neuropathy varicose veins, restless leg syndrome, BP H surgery, Alvarenga's esophagus and chronic low back pain from osteoarthritis. Alcohol use disorder with cirrhosis. Last drink was about a month ago. Still smokes about 2 cigarettes a day. About March 22, Patient was taken off Lasix because of worsening renal function. Gradually patient started having increasing leg edema which no significant. Slight cough. Increase in shortness of breath. Orthopnea. No fever no chills. Appetite is fair. No change in bowel pattern. In the ER found to be in atrial fibrillation with rapid ventricular rate. Given IV Lasix. Put on Cardizem drip. April 13: Sitting up in bed. A bit tired. Eating fair. Atrial flutter rate just above 100. Be started on an Entresto tonight. Encouraged to sit up in a chair. April 14: Some cough some improvement in shortness of breath. Heart rate still up. Plan is for cardioversion tomorrow. April 15: Patient was cardioverted to sinus rhythm by Dr. Thomas Ann today. Feeling better. Tired. Oral intake fair. Encouraged to ambulate. Active Medications Acetaminophen (Acetaminophen Tab 325 Mg Tab) 650 mg PO Q6HR PRN PRN Reason: Mild Pain or Fever > 100.5 Apixaban (Apixaban 5 Mg Tab) 5 mg PO BID [facility]; Protocol Last Admin: 04/15/22 06:40 Dose: 5 mg Budesonide/Formoterol Fumarate (Symbicort 160-4.5 Mcg Inhaler) 2 puff INHALATION RT-BID [facility] Last Admin: 04/15/22 08:12 Dose: 2 puff Cyclobenzaprine HCl (Cyclobenzaprine 10 Mg Tab) 10 mg PO TID [facility] Last Admin: 04/15/22 14:16 Dose: 10 mg Latanoprost (Latanoprost 0.005% Ophth Drops 2.5 Ml Btl) 1 drops BOTH EYES HS [facility] Last Admin: 04/14/22 22:44 Dose: 1 drops Loratadine (Loratadine 10 Mg Tab) 10 mg PO DAILY@1200 [facility] Last Admin: 04/15/22 11:51 Dose: 10 mg Metoprolol Tartrate (Metoprolol Tartrate 50 Mg Tab) 50 mg PO BID [facility] Last Admin: 04/15/22 06:40 Dose: 50 mg Montelukast Sodium (Montelukast 10 Mg Tab) 10 mg PO DAILY@1200 [facility] Last Admin: 04/15/22 11:51 Dose: 10 mg Naloxone HCl (Naloxone 0.4 Mg/Ml 1 Ml Vial) 0.2 mg IV Q2M PRN PRN Reason: Opioid Reversal Nicotine (Nicotine 7mg/24hr Patch) 1 patch TRANSDERM DAILY [facility] Last Admin: 04/15/22 06:41 Dose: Not Given Patient's Own ( Empagliflozin [ Jardiance] 10 Mg Tablet) 10 mg PO DAILY@1200 [facility] Last Admin: 04/15/22 11:43 Dose: Not Given Ondansetron HCl (Ondansetron 4 Mg/2 Ml Vial) 4 mg IVP Q8HR PRN PRN Reason: Nausea And Vomiting Oxycodone/Acetaminophen (Oxycodone-Apap 10-325mg 1 Each Tab) 1 each PO Q8HR PRN PRN Reason: Pain Last Admin: 04/15/22 14:16 Dose: 1 each Pantoprazole Sodium (Pantoprazole 40 Mg Tablet) 40 mg PO DAILY@1200 [facility] Last Admin: 04/15/22 11:51 Dose: 40 mg Ropinirole HCl (Ropinirole Hcl 4 Mg Tablet) 4 mg PO HS [facility] Last Admin: 04/14/22 20:11 Dose: 4 mg Sacubitril/Valsartan (Sacubitril/Valsartan 24 Mg-26 Mg Tablet) 1 each PO BID [facility] Last Admin: 04/15/22 06:41 Dose: 1 each Sotalol HCl (Sotalol 80 Mg Tab) 80 mg PO BID [facility] Last Admin: 04/15/22 06:40 Dose: 80 mg Spironolactone (Spironolactone 25 Mg Tab) 25 mg PO DAILY [facility] Last Admin: 04/15/22 06:40 Dose: 25 mg Tamsulosin HCl (Tamsulosin 0.4 Mg Cap.Er.24h) 0.4 mg PO DAILY@1200 [facility] Last Admin: 04/15/22 11:51 Dose: 0.4 mg Past medical history to include: COPD, fibromyalgia, hypertension, osteoarthritis, chronic pancreatitis from alcoholism, peripheral neuropathy, varicose pains, restless leg syndrome, BPH with surgery, Alvarenga's esophagus, chronic low back pain from osteoarthritis, alcohol use disorder with cirrhosis, Social history: Patient lives with his sister Ewelina. Smoked for close to 42 years. Now down to a few cigarettes a day.. Drinking alcohol for years. Stopped for about a month. Physical examination: VITAL SIGNS: Afebrile, 79, 16, 11 4 x 75, 93% room air GENERAL: Sitting on bed, more comfortable EYES: Pupils equal. Conjunctiva normal. HEENT: External appearance of nose and ears normal, oral cavity grossly normal. NECK: JVD raised; masses not palpable. HEART: First seconds are normal; significant edema. LUNGS: Respiratory rate increased; decreased breath sounds, ABDOMEN: Soft, distended, nontender, liver spleen not palpable, no masses palpable. divarification of recti . PSYCH: Alert and oriented x3; mood and affect anxiousl. MUSCULOSKELETAL:No Clubbing/cyanosis;muscles-grossly intact. evidence of OA INVESTIGATIONS, reviewed in the clinical context: April 15: Potassium 5 creatinine 0.99 April 13: Potassium 5.1 creatinine 1.06 Limited 2-D echocardiogram: EF 45%. Mild to moderate dilated right ventricle. WBC 5.8 hemoglobin 11.9 platelets 286 potassium 4.5 BUN 16 creatinine 1.0 Troponin I 3 negative COVID 19: Not detected EKG tracing personally reviewed by me-atrial flutter with a ventricular rate of 106. Some ST segment changes. Chest x-ray film personally reviewed by me-cardiomegaly. Venous prominence. Some cephalization. Previous studies Abdominal ultrasound: Evidence of cirrhosis 2-D echocardiogram: Moderate concentric LVH. EF 35-40%. Right ventricular moderately enlarged. Assessment and plan: -Acute worsening of atrial flutter fibrillation rate : Cardioverter sinus rhythm April 15 Initially got IV Cardizem. Eliquis. Lopressor 50 mg twice a day. Sotalol 80 mg twice a day -Acute congestive heart failure exacerbation from systolic and diastolic dysfunction EF 45 %: Better Given IV Lasix initially.. Aldactone 25 mg. Entresto - chronic pancreatitis from alcoholism: - COPD exacerbation in a cigarette smoker,: Better Symbicort 160/4.52 puffs twice a day., -Alcohol-induced cirrhosis: [id number] mg a day. Low-salt diet. -Chronic nicotine dependence, cigarette smoker Nicotine patch 7 -Chronic fibromyalgia Flexeril 10 mg 3 times a day -Essential hypertension Zestril 20 mg a day. Lopressor 50 mg twice a day -Primary osteoarthritis, multiple joints bilaterally Pain medications as needed -Alcoholic peripheral neuropathy -restless leg syndrome Requip 4 mg daily at bedtime -Alvarenga's esophagus Protonix 40 mg a day -Full code Continue current medications. Increase activity. Discussed with patient.
[2022-04-15] MEDS: rOPINIRole HCL 4 MG TABLET PO SCH (20:15)
[2022-04-15] MEDS: LATANOPROST 0.005% OPHTH DROPS 2.5 ML BTL BOTH EYES SCH (20:17)
[2022-04-15 20:31] LABS: Glucose,Whole Blood 104 mg/dL (70-110)
[2022-04-15] MEDS ORDERED: METOPROLOL TARTRATE 25 MG TAB PO ONE (21:00)
[2022-04-15] MEDS: LACTULOSE 20 GM/30 ML CUP PO SCH (21:24)
[2022-04-16 06:18] LABS: Glucose,Whole Blood 160 mg/dL (70-110)
[2022-04-16] MEDS: oxyCODONE-APAP 10-325MG 1 EACH TAB PO PRN ×2 (06:30→13:59)
[2022-04-16] MEDS: SYMBICORT 160-4.5 MCG INHALER INHALATION SCH (08:06)
[2022-04-16] MEDS: PATIENT'S OWN (Empagliflozin [Jardiance] 10 MG Tablet) PO SCH (09:52)
[2022-04-16] MEDS: SPIRONOLACTONE 25 MG TAB PO SCH (10:03)
[2022-04-16] MEDS: APIXABAN 5 MG TAB PO SCH (10:03)
[2022-04-16] MEDS: CYCLOBENZAPRINE 10 MG TAB PO SCH (10:03)
[2022-04-16] MEDS: SACUBITRIL/VALSARTAN 24 MG-26 MG TABLET PO SCH (10:03)
[2022-04-16] MEDS: SOTALOL 80 MG TAB PO SCH (10:04)
[2022-04-16] MEDS: NICOTINE 7MG/24HR PATCH TRANSDERM SCH (10:04)
[2022-04-16] MEDS: LACTULOSE 20 GM/30 ML CUP PO SCH (10:04)
[2022-04-16 10:06] LABS: Calcium 8.9 mg/dL (8.4-10.2); Potassium 4.5 mmol/L (3.5-5.1)
[2022-04-16] MEDS: METOPROLOL TARTRATE 50 MG TAB PO SCH (10:06)
--- NOTE | 2022-04-16 11:15 | P.PN ---
Progress Note - Text Patient is resting comfortably in bed He is also ambulating around in the hallways Heart rate 7 the 70s and 80s when he is walking around He maintains normal rhythm Yesterday he underwent electrical cardioversion No chest discomfort orthopnea PND no dizziness or lightheadedness On examination heart sounds S1 and S2 are normal regular Breath sounds are clear no rhonchi no crackles No lower extremity edema Labs reviewed Sodium 138 potassium 4.5 BUN 27 creatinine 1.09 Impression Congestive heart failure, systolic class III LV systolic dysfunction Started on entresto and sotalol as an inpatient He underwent electrical cardioversion yesterday for atrial fibrillation Normal TSH Suggest His ELIQUIS dose should be 5 mg twice daily Sotalol should continue 80 mg twice daily Entrance to should continue twice daily Stop the Toprol tartrate Switched to metoprolol succinate 25 mg daily at 1 PM Continue spironolactone 25 mg by mouth daily His renal function is normal and potassium is normal Continue diabetes medications Would recommend statins, atorvastatin 20 mg by mouth daily Atrial flutter ablation as an outpatient
[2022-04-16 12:05] VITALS: BP 148/82; PULSE 68; RESP 18
[2022-04-16 12:22] LABS: Glucose,Whole Blood 150 mg/dL (70-110)
[2022-04-16] MEDS ORDERED: METOPROLOL SUCCINATE (ER) 25 MG TAB.ER.24H PO SCH (13:00)
[2022-04-16] MEDS: TAMSULOSIN 0.4 MG CAP.ER.24H PO SCH (13:55)
[2022-04-16] MEDS: LORATADINE 10 MG TAB PO SCH (13:55)
[2022-04-16] MEDS: PANTOPRAZOLE 40 MG TABLET PO SCH (13:55)
[2022-04-16] MEDS: MONTELUKAST 10 MG TAB PO SCH (13:55)
--- NOTE | 2022-04-16 18:10 | P.DS ---
Providers Date of admission: 04/11/22 20:05 Expected date of discharge: 04/16/22 Attending physician: Jamal Tamayo Consults: 04/11/22 20:05 Consult Physician Routine Consulting Provider: Hemal Avila Consult Reason/Comments: A-fib and chf Do you want consulting provider notified?: Yes Primary care physician: Albert Silvermley [facility] Course: Chief Complaint: Short of breath This is a [address] Chavez. Chronic stable medical conditions include COPD, fibromyalgia, hypertension, osteoarthritis, chronic pancreatitis from alcoholism, peripheral neuropathy varicose veins, restless leg syndrome, BPH surgery, Alvarenga's esophagus and chronic low back pain from osteoarthritis. Alcohol use disorder with cirrhosis. Last drink was about a month ago. Still smokes about 2 cigarettes a day. About March 22, Patient was taken off Lasix because of worsening renal function. Gradually patient started having increasing leg edema which no significant. Slight cough. Increase in shortness of breath. Orthopnea. No fever no chills. Appetite is fair. No change in bowel pattern. In the ER found to be in atrial fibrillation with rapid ventricular rate. Given IV Lasix. Put on Cardizem drip. April 13: Sitting up in bed. A bit tired. Eating fair. Atrial flutter rate just above 100. Be started on an Entresto tonight. Encouraged to sit up in a chair. April 14: Some cough some improvement in shortness of breath. Heart rate still up. Plan is for cardioversion tomorrow. April 15: Patient was cardioverted to sinus rhythm by Dr. Thomas Ann today. Feeling better. Tired. Oral intake fair. Encouraged to ambulate. April 16: Patient feeling well. Remains in sinus rhythm. Cleared by cartilage for discharge. Did ambulate in the hallway. Discussed with the patient. Questions answered. Discussion and discharge planning more than 35 minutes Past medical history to include: COPD, fibromyalgia, hypertension, osteoarthritis, chronic pancreatitis from alcoholism, peripheral neuropathy, varicose pains, restless leg syndrome, BPH with surgery, Alvarenga's esophagus, chronic low back pain from osteoarthritis, alcohol use disorder with cirrhosis, Social history: Patient lives with his sister Ewelina. Smoked for close to 42 years. Now down to a few cigarettes a day.. Drinking alcohol for years. Stopped for about a month. Physical examination: VITAL SIGNS: 97.7, 68, 18, 1 48 x 82, 99% room air GENERAL: Sitting up comfortable EYES: Pupils equal. Conjunctiva normal. HEENT: External appearance of nose and ears normal, oral cavity grossly normal. NECK: JVD raised; masses not palpable. HEART: First seconds are normal; some edema. LUNGS: Respiratory rate normal; decreased breath sounds, ABDOMEN: Soft, distended, nontender, liver spleen not palpable, no masses palpable. divarification of recti . PSYCH: Alert and oriented x3; mood and affect anxiousl. MUSCULOSKELETAL:No Clubbing/cyanosis;muscles-grossly intact. evidence of OA INVESTIGATIONS, reviewed in the clinical context: April 16: Potassium 4.5 creatinine 1.09 Limited 2-D echocardiogram: EF 45%. Mild to moderate dilated right ventricle. WBC 5.8 hemoglobin 11.9 platelets 286 potassium 4.5 BUN 16 creatinine 1.0 Troponin I 3 negative COVID 19: Not detected EKG tracing personally reviewed by me-atrial flutter with a ventricular rate of 106. Some ST segment changes. Chest x-ray film personally reviewed by me-cardiomegaly. Venous prominence. Some cephalization. Previous studies Abdominal ultrasound: Evidence of cirrhosis 2-D echocardiogram: Moderate concentric LVH. EF 35-40%. Right ventricular moderately enlarged. Assessment and plan: -Acute worsening of atrial flutter fibrillation rate : Cardioverter sinus rhythm April 15 Initially got IV Cardizem. Eliquis. Lopressor 50 mg twice a day. Sotalol 80 mg twice a day -Acute congestive heart failure exacerbation from systolic and diastolic dysfunction EF 45 %: Better Given IV Lasix initially.. Aldactone 25 mg. Entresto - chronic pancreatitis from alcoholism: - COPD exacerbation in a cigarette smoker,: Better Symbicort 160/4.52 puffs twice a day., -Alcohol-induced cirrhosis: [id number] mg a day. Low-salt diet. -Chronic nicotine dependence, cigarette smoker Nicotine patch 7 -Chronic fibromyalgia Flexeril 10 mg 3 times a day -Essential hypertension Zestril 20 mg a day. Lopressor 50 mg twice a day -Primary osteoarthritis, multiple joints bilaterally Pain medications as needed -Alcoholic peripheral neuropathy -restless leg syndrome Requip 4 mg daily at bedtime -Alvarenga's esophagus Protonix 40 mg a day -Full code Disposition: Home Patient Condition at Discharge: Stable Plan - Discharge Summary Discharge Rx Participant: No New Discharge Prescriptions: New Apixaban [Eliquis] 5 mg PO BID #60 tab Sacubitril/Valsartan [Entresto 24 mg-26 mg Tablet] 1 each PO BID #60 tab Metoprolol Succinate (ER) [Toprol XL] 25 mg PO DAILY #30 tab Spironolactone [Aldactone] 25 mg PO DAILY #30 tab Sotalol [Betapace] 80 mg PO BID #60 tab Nicotine 7Mg/24Hr Patch [Habitrol] 1 patch TRANSDERM DAILY #14 patch Continue Montelukast [Singulair] 10 mg PO DAILY@1200 Omeprazole 20 mg PO DAILY@1200 Latanoprost Ophth [Xalatan 0.005%] 1 drops BOTH EYES HS Tamsulosin [Flomax] 0.4 mg PO DAILY@1200 Cyclobenzaprine [Flexeril] 10 mg PO TID oxyCODONE-APAP 10-325MG [Percocet 10-325 mg] 1 tab PO Q8HR PRN PRN Reason: Pain Empagliflozin [Jardiance] 10 mg PO DAILY@1200 rOPINIRole HCL [Requip] 4 mg PO HS Loratadine [Claritin] 10 mg PO DAILY@1200 Budesonide-Formot 160-4.5 Mcg [Symbicort 160-4.5 Mcg Inhaler] 2 puff INHALATION RT-BID Discontinued lisinopriL [Zestril] 20 mg PO DAILY@1200 Apixaban [Eliquis] 2.5 mg PO BID #60 tab Metoprolol Tartrate [Lopressor] 100 mg PO BID Discharge Medication List Montelukast [Singulair] 10 mg PO DAILY@1200 01/12/18 [History] Omeprazole 20 mg PO DAILY@1200 02/08/20 [History] Latanoprost Ophth [Xalatan 0.005%] 1 drops BOTH EYES HS 11/08/21 [History] Tamsulosin [Flomax] 0.4 mg PO DAILY@1200 11/08/21 [History] rOPINIRole HCL [Requip] 4 mg PO HS 11/08/21 [History] Cyclobenzaprine [Flexeril] 10 mg PO TID 11/24/21 [History] Loratadine [Claritin] 10 mg PO DAILY@1200 11/24/21 [History] oxyCODONE-APAP 10-325MG [Percocet 10-325 mg] 1 tab PO Q8HR PRN 11/24/21 [History] Budesonide-Formot 160-4.5 Mcg [Symbicort 160-4.5 Mcg Inhaler] 2 puff INHALATION RT-BID 04/11/22 [History] Empagliflozin [Jardiance] 10 mg PO DAILY@1200 04/11/22 [History] Apixaban [Eliquis] 5 mg PO BID #60 tab 04/16/22 [Rx] Metoprolol Succinate (ER) [Toprol XL] 25 mg PO DAILY #30 tab 04/16/22 [Rx] Nicotine 7Mg/24Hr Patch [Habitrol] 1 patch TRANSDERM DAILY #14 patch 04/16/22 [Rx] Sacubitril/Valsartan [Entresto 24 mg-26 mg Tablet] 1 each PO BID #60 tab 04/16/22 [Rx] Sotalol [Betapace] 80 mg PO BID #60 tab 04/16/22 [Rx] Spironolactone [Aldactone] 25 mg PO DAILY #30 tab 04/16/22 [Rx] Follow up Appointment(s)/Referral(s): Albert Chavez MD [Primary Care Provider] - 1-2 days (Office closed. Please call to schedule follow up. ) Hemal Avila MD [STAFF PHYSICIAN] - 04/29/22 8:30 am Patient Instructions/Handouts: Heart Failure (DC), A-fib (Atrial Fibrillation) (DC) Discharge Disposition: HOME SELF-CARE
== END 2022-04-16 14:53 | disposition home or self-care (01) | DRG 291 ==
LOC: EC 15:45 → 3SCARD 20:05
PROVIDERS: ADMIT Hospitalist; ATTEND Hospitalist
PROC: 5A2204Z Restoration of Cardiac Rhythm, Single (ICD-10-PCS; principal; 2022-04-15 09:00)
DX: I11.0 Hypertensive heart disease with heart failure (principal); I50.43 Acute on chronic combined systolic (congestive) and diastolic (congestive) heart failure; I48.19 Other persistent atrial fibrillation; J44.1 Chronic obstructive pulmonary disease with (acute) exacerbation; K86.0 Alcohol-induced chronic pancreatitis; E11.9 Type 2 diabetes mellitus without complications; I42.8 Other cardiomyopathies; G62.1 Alcoholic polyneuropathy; K70.30 Alcoholic cirrhosis of liver without ascites; F32.A Depression, unspecified; I27.20 Pulmonary hypertension, unspecified; F10.21 Alcohol dependence, in remission; D64.9 Anemia, unspecified; E78.5 Hyperlipidemia, unspecified; F17.210 Nicotine dependence, cigarettes, uncomplicated; F41.9 Anxiety disorder, unspecified; G25.81 Restless legs syndrome; G89.29 Other chronic pain; I25.10 Atherosclerotic heart disease of native coronary artery without angina pectoris; I25.2 Old myocardial infarction; I08.3 Combined rheumatic disorders of mitral, aortic and tricuspid valves; I83.90 Asymptomatic varicose veins of unspecified lower extremity; Z20.822 Contact with and (suspected) exposure to COVID-19; K22.70 Barrett's esophagus without dysplasia; M15.9 Polyosteoarthritis, unspecified; M47.9 Spondylosis, unspecified; M79.7 Fibromyalgia; N40.0 Benign prostatic hyperplasia without lower urinary tract symptoms; Z82.3 Family history of stroke; Z82.49 Family history of ischemic heart disease and other diseases of the circulatory system; Z82.5 Family history of asthma and other chronic lower respiratory diseases; Z83.3 Family history of diabetes mellitus; Z79.01 Long term (current) use of anticoagulants; Z79.51 Long term (current) use of inhaled steroids; Z79.84 Long term (current) use of oral hypoglycemic drugs; Z79.899 Other long term (current) drug therapy
CPT/HCPCS: 36415; 71046; 80048; 80053; 83735; 84443; 84484; 85025; 85610; 85730; 87635; 92960; 93005; 93308; 94640; 94760; 96365; 96375; 99285

== ENCOUNTER 2022-04-17 09:17 | Emergency (ER) | payer OTHER ==
[2022-04-17 09:27] VITALS: BP 126/72; PULSE 83; RESP 20; TEMP 97.8
--- NOTE | 2022-04-17 10:01 | ED ---
General Adult HPI - General Chief complaint: Recheck/Abnormal Lab/Rx Stated complaint: Needs Meds Time Seen by Provider: 04/17/22 09:32 Source: patient Mode of arrival: ambulatory Limitations: no limitations - History of Present Illness Initial comments: Dictation was produced using [employer] dictation software. please excuse any grammatical, word or spelling errors. Chief Complaint: 61-year-old male presents emergency department for 2 days of prescriptions History of Present Illness: 61-year-old male who was recently discharged from the hospital. Patient was admitted to the hospital from April 11 2 April 16. He was discharged with multiple medications. He was admitted for a chin and CHF. Patient had his prescriptions sentences pharmacy hours pharmacy is closed until Monday. Patient seeking 2-3 days of his medications until pharmacy opens. Patient has point. The ROS documented in this emergency department record has been reviewed and confirmed by me. Those systems with pertinent positive or negative responses have been documented in the HPI. All other systems are other negative and/or noncontributory. PHYSICAL EXAM: General Impression: Alert and oriented x3, not in acute distress HEENT: Normocephalic atraumatic, extra-ocular movements intact, pupils equal and reactive to light bilaterally, mucous membranes moist. Cardiovascular: Heart regular rate and rhythm Chest: Able to complete full sentences, no retractions, no tachypnea Abdomen: abdomen soft, non-tender, non-distended, no organomegaly Musculoskeletal: Pulses present and equal in all extremities, no peripheral edema Motor: no focal deficits noted Neurological: CN II-XII grossly intact, no focal motor or sensory deficits noted Skin: Intact with no visualized rashes Psych: Normal affect and mood ED course: 61-year-old male presents emergency department for 2-3 days prescription for his medications. His pharmacy is closed and does not have access to his medications until Monday. Patient seeking 2-3 days medications for spironolactone, sotalol, eliquis, entresto and metoprolol. Patient given hard copies prescriptions to take to an open pharmacy. Vital signs upon arrival are within acceptable limits. Patient discharged. - Related Data Home Medications Medication Instructions Recorded Confirmed Montelukast [Singulair] 10 mg PO DAILY@1200 01/12/18 04/11/22 Omeprazole 20 mg PO DAILY@1200 02/08/20 04/11/22 Latanoprost Ophth [Xalatan 0.005%] 1 drops BOTH EYES HS 11/08/21 04/11/22 Tamsulosin [Flomax] 0.4 mg PO DAILY@1200 11/08/21 04/11/22 rOPINIRole HCL [Requip] 4 mg PO HS 11/08/21 04/11/22 Cyclobenzaprine [Flexeril] 10 mg PO TID 11/24/21 04/11/22 Loratadine [Claritin] 10 mg PO DAILY@1200 11/24/21 04/11/22 oxyCODONE-APAP 10-325MG [Percocet 1 tab PO Q8HR PRN 11/24/21 04/11/22 10-325 mg] Budesonide-Formot 160-4.5 Mcg 2 puff INHALATION RT-BID 04/11/22 04/11/22 [Symbicort 160-4.5 Mcg Inhaler] Empagliflozin [Jardiance] 10 mg PO DAILY@1200 04/11/22 04/11/22 Previous Rx's Medication Instructions Recorded Apixaban [Eliquis] 5 mg PO BID #60 tab 04/16/22 Metoprolol Succinate (ER) [Toprol 25 mg PO DAILY #30 tab 04/16/22 XL] Nicotine 7Mg/24Hr Patch [Habitrol] 1 patch TRANSDERM DAILY #14 patch 04/16/22 Sacubitril/Valsartan [Entresto 24 1 each PO BID #60 tab 04/16/22 mg-26 mg Tablet] Sotalol [Betapace] 80 mg PO BID #60 tab 04/16/22 Spironolactone [Aldactone] 25 mg PO DAILY #30 tab 04/16/22 Apixaban [Eliquis] 5 mg PO BID 3 Days #6 tab 04/17/22 Metoprolol Succinate (ER) [Toprol 25 mg PO DAILY 3 Days #3 tab 04/17/22 XL] Sacubitril/Valsartan [Entresto 24 1 each PO BID 3 Days #6 tab 04/17/22 mg-26 mg Tablet] Sotalol [Betapace] 80 mg PO BID 3 Days #6 tablet 04/17/22 Spironolactone [Aldactone] 25 mg PO DAILY 3 Days #3 tablet 04/17/22 Allergies Allergy/AdvReac Type Severity Reaction Status Date / Time pregabalin [From Lyrica] Allergy Swelling Verified 04/17/22 09:27 amoxicillin trihydrate AdvReac Rapid Verified 04/17/22 09:27 [From Augmentin] Heart Rate potassium clavulanate AdvReac FELT LIKE Verified 04/17/22 09:27 [From Augmentin] HE WAS GOING TO PASS OUT FAST HEARTBEAT" Review of Systems ROS Statement: Those systems with pertinent positive or pertinent negative responses have been documented in the HPI. ROS Other: All systems not noted in ROS Statement are negative. Past Medical History Past Medical History: Atrial Fibrillation, Coronary Artery Disease (CAD), Heart Failure, COPD, Diabetes Mellitus, Eye Disorder, Fibromyalgia, Hypertension, Myocardial Infarction (OR), Osteoarthritis (OA), Prostate Disorder, Vascular Disorder Additional Past Medical History / Comment(s): Patient states did not have OR was a valve issue. Chronic cough, hx pancreatitis, bilateral eye glaucoma, neuropathy bilateral feet, poor circulation to legs, varicose veins, RLS, hx BPH, colitis, gastritis, Alvarenga's esophagus, shingles in 2013 and states joint pain since, chronic low back pain, DDD. borderline diabetes Last Myocardial Infarction Date:: 09/02/16 History of Any Multi-Drug Resistant Organisms: None Reported Past Surgical History: Appendectomy, Heart Catheterization, Joint Replacement, Orthopedic Surgery, Prostate Surgery Additional Past Surgical History / Comment(s): Right knee arthroscopy for torn meniscus, right knee replacement, EGD, colonoscopy, TURP. Past Anesthesia/Blood Transfusion Reactions: No Reported Reaction Past Psychological History: Anxiety, Depression Smoking Status: Current every day smoker Past Alcohol Use History: None Reported Past Drug Use History: None Reported - Past Family History Father Family Medical History: CVA/TIA, Hypertension Additional Family Medical History / Comment(s): Father at the age of 38yrs from HTN/CVA. He was an alcoholic. Mother Family Medical History: COPD, Diabetes Mellitus Additional Family Medical History / Comment(s): Mother of emphysema at the age of 74 yrs (2003), mom had hx of drinking and smoking. General Exam Limitations: no limitations Course Vital Signs 04/17/22 09:24 Temperature 97.8 F Pulse Rate 83 Respiratory 20 Rate Blood Pressure 126/72 O2 Sat by Pulse 96 Oximetry Disposition Clinical Impression: Encounter for medication refill Disposition: HOME SELF-CARE Condition: Good Prescriptions: Spironolactone [Aldactone] 25 mg PO DAILY 3 Days #3 tablet Sotalol [Betapace] 80 mg PO BID 3 Days #6 tablet Apixaban [Eliquis] 5 mg PO BID 3 Days #6 tab Sacubitril/Valsartan [Entresto 24 mg-26 mg Tablet] 1 each PO BID 3 Days #6 tab Metoprolol Succinate (ER) [Toprol XL] 25 mg PO DAILY 3 Days #3 tab Is patient prescribed a controlled substance at d/c from ED?: No Referrals: Albert Chavez MD [Primary Care Provider] - 1-2 days Time of Disposition: 10:01
== END 2022-04-17 10:14 | disposition home or self-care (01) ==
LOC: EC 09:17
DX: Z76.0 Encounter for issue of repeat prescription (principal); I25.10 Atherosclerotic heart disease of native coronary artery without angina pectoris; J44.9 Chronic obstructive pulmonary disease, unspecified; E11.9 Type 2 diabetes mellitus without complications; I11.0 Hypertensive heart disease with heart failure; I50.9 Heart failure, unspecified; I25.2 Old myocardial infarction; M19.90 Unspecified osteoarthritis, unspecified site; F17.200 Nicotine dependence, unspecified, uncomplicated; Z86.79 Personal history of other diseases of the circulatory system; Z88.8 Allergy status to other drugs, medicaments and biological substances; Z88.0 Allergy status to penicillin
CPT/HCPCS: 99281

== ENCOUNTER → 2022-04-29 | Outpatient (CLI) | payer OTHER ==
[2022-04-29 18:22] LABS: HCT 45.4 % (39.6-50.0); HGB 14.8 g/dL (13.0-17.0); MCH 30.2 pg (27.0-32.0); MCHC 32.6 g/dL (32.0-37.0); MCV 92.7 fL (80.0-97.0); Mean Platelet Volume 10.1 fL (9.5-12.2); NRBC Per 100 WBC 0 /100 WBCS (0.0-0.0); Platelet Count 335 X 10*3/uL (140-440); RDW 14.1 % (11.5-14.5); WBC 12.74 X 10*3/uL (4.50-10.00)
[2022-04-29 19:06] LABS: African American GFR (CKD) 86.4 (60.0-200.0); Anion Gap 12.1 mmol/L (10.00-18.00); BUN/Creat Ratio 19.63 Ratio (12.00-20.00); Calcium 9.5 mg/dL (8.7-10.3); Carbon Dioxide 19.7 mmol/L (20.0-27.5); Non-African American GFR(CKD) 74.5 (60.0-200.0); Potassium 5.2 mmol/L (3.5-5.5)
== END | disposition home or self-care (01) ==
LOC: LABWHC1 11:04
PROVIDERS: ATTEND Internal Medicine Interventional Cardiology
DX: I50.23 Acute on chronic systolic (congestive) heart failure (principal)
CPT/HCPCS: 36415; 80048; 83880; 85027

== ENCOUNTER 2022-05-10 20:16 | Emergency (ER) | payer OTHER ==
[2022-05-10 20:19] VITALS: BP 121/77; PULSE 101; RESP 20; TEMP 97.8
[2022-05-10 20:37] LABS: Basophils # (A) 0.1 k/uL (0-0.2); Basophils % (A) 1 %; Eosinophils # (A) 0.2 k/uL (0-0.7); Eosinophils % (A) 2 %; HCT 43.9 % (39.0-53.0); HGB 13.8 gm/dL (13.0-17.5); Hypochromasia Slight; Lymphocytes % (A) 19 %; MCH 29.7 pg (25.0-35.0); MCHC 31.5 g/dL (31.0-37.0); MCV 94.3 fL (80.0-100.0); Mean Platelet Volume 7.5; Monocytes # (A) 0.4 k/uL (0-1.0); Monocytes % (A) 3 %; Neutrophils % (A) 73 %; Platelet Count 272 k/uL (150-450); RBC 4.65 m/uL (4.30-5.90); WBC 10.9 k/uL (3.8-10.6)
--- NOTE | 2022-05-10 20:38 | XR ---
EXAMINATION TYPE: XR chest 2V DATE OF EXAM: 05/10/2022 COMPARISON: 04/11/2022 HISTORY: Difficulty breathing TECHNIQUE: 2 views FINDINGS: There is no heart failure nor confluent pneumonic infiltrate. Costophrenic angles are clear . There are no hilar masses. Bony thorax is intact. IMPRESSION: No active cardiopulmonary disease. No change.
[2022-05-10 20:45] LABS: INR 0.9 (<1.2); Partial Thromboplastin Time 25.5 sec (22.0-30.0); Prothrombin Time 10.4 sec (9.0-12.0)
[2022-05-10 20:54] LABS: Albumin 3.9 g/dL (3.5-5.0); Calcium 8.9 mg/dL (8.4-10.2); Potassium 4.8 mmol/L (3.5-5.1); Total Bilirubin 0.3 mg/dL (0.2-1.3); Total Protein 6.2 g/dL (6.3-8.2)
== END 2022-05-10 21:43 | disposition left against medical advice (07) ==
LOC: EC 20:16
DX: Z53.21 Procedure and treatment not carried out due to patient leaving prior to being seen by health care provider (principal)
CPT/HCPCS: 36415; 71046; 80053; 84484; 85025; 85610; 85730; 93005

== ENCOUNTER → 2022-05-12 | Outpatient (CLI) | payer OTHER ==
[2022-05-12 18:31] LABS: African American GFR (CKD) 75.2 (60.0-200.0); Blood Urea Nitrogen 18.9 mg/dL (9.0-27.0); Non-African American GFR(CKD) 64.9 (60.0-200.0); Potassium 4.9 mmol/L (3.5-5.5)
[2022-05-12 18:35] LABS: HCT 43.7 % (39.6-50.0); HGB 13.8 g/dL (13.0-17.0); MCH 29.6 pg (27.0-32.0); MCHC 31.6 g/dL (32.0-37.0); MCV 93.8 fL (80.0-97.0); Mean Platelet Volume 9.6 fL (9.5-12.2); NRBC Per 100 WBC 0 /100 WBCS (0.0-0.0); Platelet Count 273 X 10*3/uL (140-440); RBC 4.66 X 10*6/uL (4.40-5.60); RDW 14.3 % (11.5-14.5); WBC 8.83 X 10*3/uL (4.50-10.00)
== END | disposition home or self-care (01) ==
LOC: LABPAT 13:56
PROVIDERS: ATTEND Internal Medicine Clinical Cardiac Electrophysiology
DX: Z01.812 Encounter for preprocedural laboratory examination (principal); I42.8 Other cardiomyopathies; I48.19 Other persistent atrial fibrillation
CPT/HCPCS: 80051; 82565; 84520; 85027

== ENCOUNTER 2022-05-13 16:36 | Inpatient (IN) | payer OTHER ==
[2022-05-13] MEDS ORDERED: DILTIAZEM DRIP BOLUS FROM BAG 1 MG SOLN IV ONE (16:58)
--- NOTE | 2022-05-13 17:02 | ED ---
General Adult HPI - General Chief complaint: Arrhythmia/Palpitations Stated complaint: Tachycardia Time Seen by Provider: 05/13/22 16:49 Source: patient, RN notes reviewed Mode of arrival: wheelchair Limitations: no limitations - History of Present Illness Initial comments: Patient is a pleasant 61-year-old male presenting to the emergency department [facility] concerns for tachycardia. Patient does have history of atrial fibrillation. Patient has been having palpitations for the past month, more persistent for the past day or so. Patient does have some exertional dyspnea. No chest pain. Patient does take his metoprolol around 3:30 last period. patient is on anti- coagulation. - Related Data Home Medications Medication Instructions Recorded Confirmed Montelukast [Singulair] 10 mg PO DAILY@1200 01/12/18 04/11/22 Omeprazole 20 mg PO DAILY@1200 02/08/20 04/11/22 Latanoprost Ophth [Xalatan 0.005%] 1 drops BOTH EYES HS 11/08/21 04/11/22 Tamsulosin [Flomax] 0.4 mg PO DAILY@1200 11/08/21 04/11/22 rOPINIRole HCL [Requip] 4 mg PO HS 11/08/21 04/11/22 Cyclobenzaprine [Flexeril] 10 mg PO TID 11/24/21 04/11/22 Loratadine [Claritin] 10 mg PO DAILY@1200 11/24/21 04/11/22 oxyCODONE-APAP 10-325MG [Percocet 1 tab PO Q8HR PRN 11/24/21 04/11/22 10-325 mg] Budesonide-Formot 160-4.5 Mcg 2 puff INHALATION RT-BID 04/11/22 04/11/22 [Symbicort 160-4.5 Mcg Inhaler] Empagliflozin [Jardiance] 10 mg PO DAILY@1200 04/11/22 04/11/22 Previous Rx's Medication Instructions Recorded Apixaban [Eliquis] 5 mg PO BID #60 tab 04/16/22 Metoprolol Succinate (ER) [Toprol 25 mg PO DAILY #30 tab 04/16/22 XL] Nicotine 7Mg/24Hr Patch [Habitrol] 1 patch TRANSDERM DAILY #14 patch 04/16/22 Sacubitril/Valsartan [Entresto 24 1 each PO BID #60 tab 04/16/22 mg-26 mg Tablet] Sotalol [Betapace] 80 mg PO BID #60 tab 04/16/22 Spironolactone [Aldactone] 25 mg PO DAILY #30 tab 04/16/22 Apixaban [Eliquis] 5 mg PO BID 3 Days #6 tab 04/17/22 Metoprolol Succinate (ER) [Toprol 25 mg PO DAILY 3 Days #3 tab 04/17/22 XL] Sacubitril/Valsartan [Entresto 24 1 each PO BID 3 Days #6 tab 04/17/22 mg-26 mg Tablet] Sotalol [Betapace] 80 mg PO BID 3 Days #6 tablet 04/17/22 Spironolactone [Aldactone] 25 mg PO DAILY 3 Days #3 tablet 04/17/22 Allergies Allergy/AdvReac Type Severity Reaction Status Date / Time pregabalin [From Lyrica] Allergy Swelling Verified 05/13/22 16:46 amoxicillin trihydrate AdvReac Rapid Verified 05/13/22 16:46 [From Augmentin] Heart Rate potassium clavulanate AdvReac FELT LIKE Verified 05/13/22 16:46 [From Augmentin] HE WAS GOING TO PASS OUT FAST HEARTBEAT" Review of Systems ROS Statement: Those systems with pertinent positive or pertinent negative responses have been documented in the HPI. ROS Other: All systems not noted in ROS Statement are negative. Constitutional: Denies: fever Eyes: Denies: eye pain ENT: Denies: ear pain Respiratory: Reports: as per HPI Cardiovascular: Reports: palpitations. Denies: chest pain Endocrine: Denies: fatigue Gastrointestinal: Denies: abdominal pain Genitourinary: Denies: dysuria Musculoskeletal: Denies: back pain Skin: Denies: rash Neurological: Denies: weakness Past Medical History Past Medical History: Atrial Fibrillation, Coronary Artery Disease (CAD), Heart Failure, COPD, Diabetes Mellitus, Eye Disorder, Fibromyalgia, Hypertension, Myocardial Infarction (MT), Osteoarthritis (OA), Prostate Disorder, Vascular Disorder Additional Past Medical History / Comment(s): Patient states did not have MT was a valve issue. Chronic cough, hx pancreatitis, bilateral eye glaucoma, neuropathy bilateral feet, poor circulation to legs, varicose veins, RLS, hx BPH, colitis, gastritis, Alvarenga's esophagus, shingles in 2012 and states joint pain since, chronic low back pain, DDD. borderline diabetes Last Myocardial Infarction Date:: 09/02/16 History of Any Multi-Drug Resistant Organisms: None Reported Past Surgical History: Appendectomy, Heart Catheterization, Joint Replacement, Orthopedic Surgery, Prostate Surgery Additional Past Surgical History / Comment(s): Right knee arthroscopy for torn meniscus, right knee replacement, EGD, colonoscopy, TURP. Past Anesthesia/Blood Transfusion Reactions: No Reported Reaction Past Psychological History: Anxiety, Depression Smoking Status: Current every day smoker Past Alcohol Use History: None Reported Past Drug Use History: None Reported - Past Family History Father Family Medical History: CVA/TIA, Hypertension Additional Family Medical History / Comment(s): Father at the age of 38yrs from HTN/CVA. He was an alcoholic. Mother Family Medical History: COPD, Diabetes Mellitus Additional Family Medical History / Comment(s): Mother of emphysema at the age of 74 yrs (2003), mom had hx of drinking and smoking. General Exam Limitations: no limitations General appearance: alert, in no apparent distress Head exam: Present: normocephalic Eye exam: Present: normal appearance Neck exam: Present: normal inspection Respiratory exam: Present: normal lung sounds bilaterally Cardiovascular Exam: Present: tachycardia, irregular rhythm GI/Abdominal exam: Present: soft. Absent: tenderness Extremities exam: Present: normal inspection. Absent: pedal edema, calf tenderness Neurological exam: Present: alert Psychiatric exam: Present: normal affect, normal mood Skin exam: Present: normal color Course Vital Signs 05/13/22 05/13/22 05/13/22 16:44 16:54 16:55 Temperature 98.7 F 97.8 F Pulse Rate 148 H 147 H Pulse Rate [ 145 H Associate Attorney ] Respiratory 18 22 Rate Blood Pressure 136/101 O2 Sat by Pulse 96 96 Oximetry 05/13/22 05/13/22 16:58 18:27 Temperature Pulse Rate 149 H Pulse Rate [ Associate Attorney ] Respiratory 18 Rate Blood Pressure 142/115 131/94 O2 Sat by Pulse 96 Oximetry EKG Findings - EKG Comments: EKG Findings:: Atrial flutter appearance with a rate of 147. QRS 99. QT 298. QTC 382. Left axis. Normal QRS. No acute ST change. Medical Decision Making - Medical Decision Making Patient reevaluated. Heart rate without significant change. Patient updated on results and plan. Dr. Tamayo has been paged for admission for Dr. Chavez. - Lab Data Result diagrams: 05/13/22 16:56 05/13/22 16:56 Lab Results 05/13/22 05/13/22 05/13/22 Range/Units 16:56 16:56 16:56 WBC 13.0 H (3.8-10.6) k/uL RBC 4.90 (4.30-5.90) m/uL Hgb 14.7 (13.0-17.5) gm/dL Hct 45.6 (39.0-53.0) % MCV 93.0 (80.0-100.0) fL MCH 29.9 (25.0-35.0) pg MCHC 32.1 (31.0-37.0) g/dL RDW 13.8 (11.5-15.5) % Plt Count 292 (150-450) k/uL MPV 7.4 Neutrophils % 81 % Lymphocytes % 12 % Monocytes % 4 % Eosinophils % 1 % Basophils % 1 % Neutrophils # 10.5 H (1.3-7.7) k/uL Lymphocytes # 1.6 (1.0-4.8) k/uL Monocytes # 0.6 (0-1.0) k/uL Eosinophils # 0.2 (0-0.7) k/uL Basophils # 0.1 (0-0.2) k/uL Hypochromasia Slight PT 10.5 (9.0-12.0) sec INR 1.0 (<1.2) APTT 25.4 (22.0-30.0) sec Sodium 137 (137-145) mmol/L Potassium 4.9 (3.5-5.1) mmol/L Chloride 104 (98-107) mmol/L Carbon Dioxide 19 L (22-30) mmol/L Anion Gap 14 mmol/L BUN 18 (9-20) mg/dL Creatinine 0.99 (0.66-1.25) mg/dL Est GFR (CKD-EPI)AfAm >90 (>60 ml/min/1.73 sqM) Est GFR (CKD-EPI)NonAf 82 (>60 ml/min/1.73 sqM) Glucose 124 H (74-99) mg/dL Calcium 9.3 (8.4-10.2) mg/dL Magnesium 1.9 (1.6-2.3) mg/dL Total Bilirubin 0.7 (0.2-1.3) mg/dL AST 20 (17-59) U/L ALT 20 (4-49) U/L Alkaline Phosphatase 97 (38-126) U/L Troponin I (0.000-0.034) ng/mL NT-Pro-B Natriuret Pep pg/mL Total Protein 6.6 (6.3-8.2) g/dL Albumin 4.1 (3.5-5.0) g/dL TSH 2.110 (0.465-4.680) mIU/L Free T4 0.86 (0.78-2.19) ng/dL Free T3 pg/mL 4.0 (2.8-5.3) pg/ml 05/13/22 05/13/22 Range/Units 16:56 16:56 WBC (3.8-10.6) k/uL RBC (4.30-5.90) m/uL Hgb (13.0-17.5) gm/dL Hct (39.0-53.0) % MCV (80.0-100.0) fL MCH (25.0-35.0) pg MCHC (31.0-37.0) g/dL RDW (11.5-15.5) % Plt Count (150-450) k/uL MPV Neutrophils % % Lymphocytes % % Monocytes % % Eosinophils % % Basophils % % Neutrophils # (1.3-7.7) k/uL Lymphocytes # (1.0-4.8) k/uL Monocytes # (0-1.0) k/uL Eosinophils # (0-0.7) k/uL Basophils # (0-0.2) k/uL Hypochromasia PT (9.0-12.0) sec INR (<1.2) APTT (22.0-30.0) sec Sodium (137-145) mmol/L Potassium (3.5-5.1) mmol/L Chloride (98-107) mmol/L Carbon Dioxide (22-30) mmol/L Anion Gap mmol/L BUN (9-20) mg/dL Creatinine (0.66-1.25) mg/dL Est GFR (CKD-EPI)AfAm (>60 ml/min/1.73 sqM) Est GFR (CKD-EPI)NonAf (>60 ml/min/1.73 sqM) Glucose (74-99) mg/dL Calcium (8.4-10.2) mg/dL Magnesium (1.6-2.3) mg/dL Total Bilirubin (0.2-1.3) mg/dL AST (17-59) U/L ALT (4-49) U/L Alkaline Phosphatase (38-126) U/L Troponin I <0.012 (0.000-0.034) ng/mL NT-Pro-B Natriuret Pep 3310 pg/mL Total Protein (6.3-8.2) g/dL Albumin (3.5-5.0) g/dL TSH (0.465-4.680) mIU/L Free T4 (0.78-2.19) ng/dL Free T3 pg/mL (2.8-5.3) pg/ml - Radiology Data Radiology results: image reviewed Critical Care Time Critical Care Time: Yes Total Critical Care Time: 33 Disposition Clinical Impression: Atrial flutter, Tachycardia Disposition: ADMITTED IP TO THIS [facility] Is patient prescribed a controlled substance at d/c from ED?: No Referrals: Albert Chavez MD [Primary Care Provider] - 1-2 days Time of Disposition: 18:39
[2022-05-13] MEDS: DILTIAZEM 125 MG in SODIUM CHLORIDE 0.9% 100 ML IV SCH (17:17)
[2022-05-13 17:21] LABS: Basophils # (A) 0.1 k/uL (0-0.2); Basophils % (A) 1 %; Eosinophils # (A) 0.2 k/uL (0-0.7); Eosinophils % (A) 1 %; HCT 45.6 % (39.0-53.0); HGB 14.7 gm/dL (13.0-17.5); Hypochromasia Slight; Lymphocytes # (A) 1.6 k/uL (1.0-4.8); Lymphocytes % (A) 12 %; MCH 29.9 pg (25.0-35.0); MCHC 32.1 g/dL (31.0-37.0); Mean Platelet Volume 7.4; Monocytes # (A) 0.6 k/uL (0-1.0); Monocytes % (A) 4 %; Neutrophils # (A) 10.5 k/uL (1.3-7.7); Neutrophils % (A) 81 %; Platelet Count 292 k/uL (150-450); RDW 13.8 % (11.5-15.5)
[2022-05-13 17:29] LABS: ALT 20 U/L (4-49); AST 20 U/L (17-59); African American GFR (CKD) >90 (>60 ml/min/1.73 sqM); Albumin 4.1 g/dL (3.5-5.0); Alkaline Phosphatase 97 U/L (38-126); Anion Gap 14 mmol/L; Blood Urea Nitrogen 18 mg/dL (9-20); Calcium 9.3 mg/dL (8.4-10.2); Carbon Dioxide 19 mmol/L (22-30); Chloride 104 mmol/L (98-107); Glucose 124 mg/dL (74-99); Magnesium 1.9 mg/dL (1.6-2.3); Non-African American GFR(CKD) 82 (>60 ml/min/1.73 sqM); Potassium 4.9 mmol/L (3.5-5.1); Sodium 137 mmol/L (137-145); Total Bilirubin 0.7 mg/dL (0.2-1.3); Total Protein 6.6 g/dL (6.3-8.2)
--- NOTE | 2022-05-13 17:29 | XR ---
EXAMINATION TYPE: XR chest 1V portable DATE OF EXAM: 05/13/2022 COMPARISON: 05/10/2022 HISTORY: Dysrhythmia TECHNIQUE: Single view FINDINGS: Single view shows no heart failure nor confluent pneumonic infiltrate. There are chest lead s. Costophrenic angles are clear. Bony thorax appears intact IMPRESSION: No active cardiopulmonary disease. Normal heart. No change.
[2022-05-13 17:30] LABS: Partial Thromboplastin Time 25.4 sec (22.0-30.0); Prothrombin Time 10.5 sec (9.0-12.0)
[2022-05-13 17:45] LABS: T4, Free (Free Thyroxine) 0.86 ng/dL (0.78-2.19)
[2022-05-13] MEDS ORDERED: oxyCODONE-APAP 10-325MG 1 EACH TAB PO ONE (18:33)
[2022-05-13] MEDS ORDERED: NALOXONE 0.4 MG/ML 1 ML VIAL IV PRN (18:40)
[2022-05-13 21:34] LABS: Glucose,Whole Blood 167 mg/dL (70-110)
[2022-05-13] MEDS: APIXABAN 5 MG TAB PO SCH (21:51)
[2022-05-13] MEDS: SOTALOL 80 MG TAB PO SCH (22:31)
[2022-05-13] MEDS: SACUBITRIL/VALSARTAN 24 MG-26 MG TABLET PO SCH (22:31)
[2022-05-14] MEDS: rOPINIRole HCL 4 MG TABLET PO SCH ×2 (02:22→17:06)
[2022-05-14] MEDS: oxyCODONE-APAP 10-325MG 1 EACH TAB PO PRN ×3 (04:09→21:13)
[2022-05-14] MEDS: CYCLOBENZAPRINE 10 MG TAB PO SCH ×3 (05:47→17:06)
[2022-05-14] MEDS: SPIRONOLACTONE 25 MG TAB PO SCH (05:47)
[2022-05-14] MEDS: SACUBITRIL/VALSARTAN 24 MG-26 MG TABLET PO SCH ×2 (05:47→17:06)
[2022-05-14] MEDS: SOTALOL 80 MG TAB PO SCH ×2 (05:47→21:39)
[2022-05-14 05:52] LABS: Glucose,Whole Blood 110 mg/dL (70-110)
[2022-05-14] MEDS: APIXABAN 5 MG TAB PO SCH ×2 (08:11→21:39)
[2022-05-14] MEDS: METOPROLOL SUCCINATE (ER) 25 MG TAB.ER.24H PO SCH (08:11)
[2022-05-14] MEDS: SYMBICORT 160-4.5 MCG INHALER INHALATION SCH ×2 (09:03→19:55)
[2022-05-14] MEDS ORDERED: SOTALOL 80 MG TAB PO STA (10:43)
[2022-05-14] MEDS: MONTELUKAST 10 MG TAB PO SCH (11:21)
[2022-05-14] MEDS: TAMSULOSIN 0.4 MG CAP.ER.24H PO SCH (11:21)
[2022-05-14] MEDS: NON FORMULARY DRUG (Empagliflozin [Jardiance] 10 MG Tablet) PO SCH (11:22)
[2022-05-14 11:35] LABS: Glucose,Whole Blood 224 mg/dL (70-110)
--- NOTE | 2022-05-14 12:34 | P.CRDCN ---
History of Present Illness Consult date: 05/14/22 History of present illness: This pleasant 61-year-old gentleman has a known history of persistent atrial fibrillation on Eliquis with recent failed cardioversion, nonischemic cardiomyopathy mild nonobstructive coronary artery disease, moderate aortic regurgitation, hypertension, hyperlipidemia heart failure, COPD, diabetes, chronic nicotine dependence, cirrhosis of the liver, pancreatitis secondary to a history of alcohol use, Alvarenga's esophagus. We have been asked to see the patient for atrial fibrillation with RVR. Patient follows with Dr. mcgraw in the office. Patient presented with tachycardia and was found to be in atrial fibrillation with RVR with a ventricular rate of 147. The patient recently underwent a cardioversion and was converted to sinus rhythm. However on follow- up he was found to be back in atrial fibrillation. Patient was started on s otalol at that time. He denies missing a dose of medication. He is scheduled to undergo a ablation May [address] Ann. He is on Eliqus for anticoagulation. He continues on Toprol-XL 25 mg daily. Will increase sotalol to 160 mg twice a day for rate control. Will obtain a 2-D echocardiogram. Review of Systems REVIEW OF SYSTEMS At the time of my exam: CONSTITUTIONAL: Denies fever or chills. EYES: Negative for vision changes ENT: Negative for hearing loss CARDIOVASCULAR: Denies chest pain, shortness of breath, diaphoresis, orthopnea, PND or palpitations. VASCULAR: Denies edema RESPIRATORY: Denies cough. GASTROINTESTINAL: Denies abdominal pain, diarrhea, constipation, nausea or vomiting. MUSCULOSKELETAL: Denies myalgias. NEUROLOGIC: Denies numbness, tingling, headache or weakness. ENDOCRINE: Denies fatigue, weight change, polydipsia or polyurina. GENITOURINARY: Denies burning, hematuria or urgency with micturation. HEMATOLOGIC: Denies history of anemia or bleeding. DERMATOLOGY: Denies rash or skin sores PSYCH: Negative for depression or hallucinations. Past Medical History Past Medical History: Atrial Fibrillation, Coronary Artery Disease (CAD), Heart Failure, COPD, Diabetes Mellitus, Eye Disorder, Fibromyalgia, Hypertension, Myocardial Infarction ([place]), Osteoarthritis (OA), Prostate Disorder, Vascular Disorder Additional Past Medical History / Comment(s): Patient states did not have [place] was a valve issue. Chronic cough, hx pancreatitis, bilateral eye glaucoma, neuropa thy bilateral feet, poor circulation to legs, varicose veins, RLS, hx BPH, colitis, gastritis, Alvarenga's esophagus, shingles in 2013 and states joint pain since, chronic low back pain, DDD. Last Myocardial Infarction Date:: 09/02/16 History of Any Multi-Drug Resistant Organisms: None Reported Past Surgical History: Appendectomy, Heart Catheterization, Joint Replacement, Orthopedic Surgery, Prostate Surgery Additional Past Surgical History / Comment(s): Right knee arthroscopy for torn meniscus, right knee replacement, EGD, colonoscopy, TURP. Past Anesthesia/Blood Transfusion Reactions: No Reported Reaction Past Psychological History: Anxiety, Depression Additional Psychological History / Comment(s): Pt resides with his sister Ewelina. Smoking Status: Current every day smoker Past Alcohol Use History: None Reported Additional Past Alcohol Use History / Comment(s): Started smoking at age 13, quit smoking 10/2016, but has an occasional cigarette or 2 in a week. denies currently alcohol use Past Drug Use History: None Reported Additional Drug Use History / Comment(s): Past cocaine use, pt states its been years since he used. - Past Family History Father Family Medical History: CVA/TIA, Hypertension Additional Family Medical History / Comment(s): Father at the age of 38yrs from HTN/CVA. He was an alcoholic. Mother Family Medical History: COPD, Diabetes Mellitus Additional Family Medical History / Comment(s): Mother of emphysema at the age of 74 yrs (2003), mom had hx of drinking and smoking. Medications and Allergies Home Medications Medication Instructions Recorded Confirmed Type Montelukast [Singulair] 10 mg PO DAILY@1200 01/12/18 05/13/22 History Omeprazole 20 mg PO DAILY@1200 02/08/20 05/13/22 History Latanoprost Ophth [Xalatan 0.005%] 1 drops BOTH EYES HS 11/08/21 05/13/22 History Tamsulosin [Flomax] 0.4 mg PO DAILY@1200 11/08/21 05/13/22 History rOPINIRole HCL [Requip] 4 mg PO HS@179911/08/21 05/13/22 History Cyclobenzaprine [Flexeril] 10 mg PO TID@0600,1200,1800 11/24/21 05/13/22 History Loratadine [Claritin] 10 mg PO DAILY@1200 11/24/21 05/13/22 History oxyCODONE-APAP 10-325MG [Percocet 1 tab PO Q8HR PRN 11/24/21 05/13/22 History 10-325 mg] Budesonide-Formot 160-4.5 Mcg 2 puff INHALATION RT-BID 04/11/22 05/13/22 History [Symbicort 160-4.5 Mcg Inhaler] Empagliflozin [Jardiance] 10 mg PO DAILY@1200 04/11/22 05/13/22 History Nicotine 7Mg/24Hr Patch [Habitrol] 1 patch TRANSDERM DAILY #14 patch 04/16/22 05/13/22 Rx Apixaban [Eliquis] 5 mg PO BID@0600,1800 05/13/22 05/13/22 History Metoprolol Tartrate [Lopressor] 25 mg PO TID@0600,1200,1800 05/13/22 05/13/22 History Sacubitril/Valsartan [Entresto 24 1 tab PO BID@0600,1800 05/13/22 05/13/22 History mg-26 mg Tablet] Sotalol [Betapace] 80 mg PO BID@0600,1800 05/13/22 05/13/22 History Spironolactone [Aldactone] 25 mg PO DAILY@0600 05/13/22 05/13/22 History Allergies Allergy/AdvReac Type Severity Reaction Status Date / Time pregabalin [From Lyrica] Allergy Leg Verified 05/13/22 20:11 swelling amoxicillin trihydrate AdvReac Rapid Verified 05/13/22 20:11 [From Augmentin] Heart Rate potassium clavulanate AdvReac FELT LIKE Verified 05/13/22 20:11 [From Augmentin] HE WAS GOING TO PASS OUT FAST HEARTBEAT" Physical Exam Vitals: Vital Signs Temp Pulse Pulse Resp BP BP Pulse Ox 05/14/22 04:00 75 19 123/66 96 05/14/22 00:00 75 20 142/89 99 05/13/22 20:49 133 H 19 115/93 97 05/13/22 18:58 97.9 F 140 H 22 135/83 98 05/13/22 18:27 149 H 18 131/94 96 05/13/22 16:58 142/115 05/13/22 16:55 145 H 05/13/22 16:54 97.8 F 147 H 22 96 05/13/22 16:44 98.7 F 148 H 18 136/101 96 Intake and Output 05/13/22 05/14/22 05/14/22 22:59 06:59 14:59 Output Total 500 Balance -500 Output: Urine 500 Other: Voiding Method Urinal Weight 104.326 kg General: The patient is awake and alert, in no distress, and does not appear acutely ill. Skin: Skin is warm and dry and no rashes or lesions are noted. Eye: Pupils are equal, round and reactive to light, extra-ocular movements are intact; there is normal conjunctiva bilaterally. Ears, nose, mouth and throat: There are moist mucous membranes and no oral lesions. Neck: The neck is supple, there is no tenderness or JVD. Cardiovascular: There is irregular rate and rhythm. No murmur, rub or gallop is appreciated. Respiratory: Lungs are clear to auscultation, respirations are non-labored, breath sounds are equal. Gastrointestinal: Soft, non-distended, non-tender abdomen without masses or organomegaly noted. There is no rebound or guarding present. Bowel sounds are unremarkable. Back: There is no tenderness to palpation in the midline. There is no obvious deformity. Musculoskeletal: Normal ROM, no tenderness, There is no pedal edema. There is no calf tenderness or swelling. Extremities: Mild bilateral pitting edema Vascular: Femoral pulse is normal. Posterior tibial pulses are normal .Dorsalis pedis is palpable. Neurological: CN II-XII intact. There are no obvious motor or sensory deficits. Speech is normal. Psychiatric: Cooperative, appropriate mood & affect, normal judgment Results 05/13/22 16:56 05/13/22 16:56 Cardiac Enzymes 05/13/22 05/13/22 05/13/22 Range/Units 16:56 16:56 21:14 AST 20 (17-59) U/L Troponin I <0.012 <0.012 (0.000-0.034) ng/mL 05/13/22 Range/Units 23:53 AST (17-59) U/L Troponin I <0.012 (0.000-0.034) ng/mL Coagulation 05/13/22 Range/Units 16:56 PT 10.5 (9.0-12.0) sec APTT 25.4 (22.0-30.0) sec CBC 05/13/22 Range/Units 16:56 WBC 13.0 H (3.8-10.6) k/uL RBC 4.90 (4.30-5.90) m/uL Hgb 14.7 (13.0-17.5) gm/dL Hct 45.6 (39.0-53.0) % Plt Count 292 (150-450) k/uL Comprehensive Metabolic Panel 05/13/22 Range/Units 16:56 Sodium 137 (137-145) mmol/L Potassium 4.9 (3.5-5.1) mmol/L Chloride 104 (98-107) mmol/L Carbon Dioxide 19 L (22-30) mmol/L BUN 18 (9-20) mg/dL Creatinine 0.99 (0.66-1.25) mg/dL Glucose 124 H (74-99) mg/dL Calcium 9.3 (8.4-10.2) mg/dL AST 20 (17-59) U/L ALT 20 (4-49) U/L Alkaline Phosphatase 97 (38-126) U/L Total Protein 6.6 (6.3-8.2) g/dL Albumin 4.1 (3.5-5.0) g/dL Current Medications Generic Name Dose Route Start Last Admin Trade Name Freq PRN Reason Stop Dose Admin Apixaban 5 mg 05/13/22 21:00 05/14/22 08:11 Apixaban 5 Mg Tab PO 5 mg BID CHEYANNE Administration Protocol Budesonide/Formoterol Fumarate 2 puff 05/14/22 08:00 05/14/22 09:03 Symbicort 160-4.5 Mcg Inhaler INHALATION 2 puff RT-BID CHEYANNE Administration Cyclobenzaprine HCl 10 mg 05/14/22 06:00 05/14/22 05:47 Cyclobenzaprine 10 Mg Tab PO 10 mg TID@0600,1200,1800 CHEYANNE Administration Diltiazem HCl 125 mg/ Sodium 125 mls @ 7.5 mls/hr 05/13/22 17:00 05/13/22 17:17 Chloride IV 5 mg/hr .[id number] CHEYANNE 5 mls/hr Administration 7.5 MG/HR Metoprolol Succinate 25 mg 05/14/22 09:00 05/14/22 08:11 Metoprolol Succinate (Er) 25 Mg Tab.Er.24h PO 25 mg DAILY CHEYANNE Administration Montelukast Sodium 10 mg 05/14/22 12:00 Montelukast 10 Mg Tab PO DAILY@1200 CHEYANNE Naloxone HCl 0.2 mg 05/13/22 18:40 Naloxone 0.4 Mg/Ml 1 Ml Vial IV Q2M PRN Opioid Reversal Non-Formulary Medication 10 mg 05/14/22 12:00 Empagliflozin [Jardiance] PO DAILY@1200 [facility] Oxycodone/Acetaminophen 1 each 05/13/22 18:47 05/14/22 04:09 Oxycodone-Apap 10-325mg 1 Each Tab PO 1 each Q8HR PRN Administration Pain Ropinirole HCl 4 mg 05/14/22 02:00 05/14/22 02:22 Ropinirole Hcl 4 Mg Tablet PO 4 mg HS@1800 [facility] Administration Sacubitril/Valsartan 1 each 05/13/22 22:00 05/14/22 05:47 Sacubitril/Valsartan 24 Mg-26 Mg Tablet PO 1 each BID@0600,1800 [facility] Administration Sotalol HCl 80 mg 05/13/22 22:00 05/14/22 05:47 Sotalol 80 Mg Tab PO 80 mg BID@0600,1800 [facility] Administration Spironolactone 25 mg 05/14/22 06:00 05/14/22 05:47 Spironolactone 25 Mg Tab PO 25 mg DAILY@0600 [facility]NE Administration Tamsulosin HCl 0.4 mg 05/14/22 12:00 Tamsulosin 0.4 Mg Cap.Er.24h PO DAILY@1200 [facility] Intake and Output 05/13/22 05/14/22 05/14/22 22:59 06:59 14:59 Output Total 500 Balance -500 Output: Urine 500 Other: Voiding Method Urinal Weight 104.326 kg 05/13/22 16:56 05/13/22 16:56 Assessment and Plan Assessment: Persistent atrial fibrillation Nonischemic cardiomyopathy Mild nonobstructive coronary artery disease Moderate aortic regurgitation Plan: Obtain an EKG tomorrow morning Increase sotalol to 160 mg twice a day Continue with Eliquis and Toprol. Obtain a 2-D echocardiogram Continue with telemetry monitoring Continue with all other current cardiac medications Further recommendations based on clinical course The above impression and plan of care have been discussed and directed by the signing physician. Kendra Schaefer, nurse practitioner, acting as scribe for signing physician.
--- NOTE | 2022-05-14 14:03 | P.HPIM ---
History of Present Illness H&P Date: 05/14/22 Chief Complaint: Heart racing This is a [address] Chavez. Chronic stable medical conditions include COPD, fibromyalgia, hypertension, osteoarthritis, chronic pancreatitis from alcoholism, peripheral neuropathy varicose veins, restless leg syndrome, BPH surgery, Alvarenga's esophagus and chronic low back pain from osteoarthritis. Alcohol use disorder with cirrhosis. . Still smokes about a few cigarettes a day. Had cardioversion done for atrial fibrillation in March Patient now presented to 3 days of heart racing. Palpitation. Some shortness of breath. Eating okay. No fever no chills. Mild edema. Presented with uncontrolled atrial fibrillation. Started on a Cardizem drip. Tired. Review of systems: GEN.: Tired EYES: None HEENT: None NECK: None RESPIRATORY: As above CARDIOVASCULAR: As above GASTROINTESTINAL: None GENITOURINARY: None MUSCULOSKELETAL: Joint pains LYMPHATICS: None HEMATOLOGICAL: None PSYCHIATRY: None NEUROLOGICAL: None Past medical history to include: COPD, fibromyalgia, hypertension, osteoarthritis, chronic pancreatitis from alcoholism, peripheral neuropathy, varicose pains, restless leg syndrome, BPH with surgery, Alvarenga's esophagus, chronic low back pain from osteoarthritis, alcohol use disorder with cirrhosis, atrial fibrillation with ablation Social history: Patient lives with his sister Ewelina. Smoked for close to 42 years. Now down to a few cigarettes a day.. Drinking alcohol for years. Stopped February 2022 Physical examination: VITAL SIGNS: 97.8, 65, 16, 1 23 x 66, 94% room air GENERAL: BMI 31. 2, declining, short of breath awake EYES: Pupils equal. Conjunctiva normal. HEENT: External appearance of nose and ears normal, oral cavity grossly normal. NECK: JVD raised; masses not palpable. HEART: Heart sounds irregular; significant edema. LUNGS: Respiratory rate increased; decreased breath sounds, prolonged expiration ABDOMEN: Soft, distended, nontender, liver spleen not palpable, no masses palpable. divarification of recti . PSYCH: Alert and oriented x3; mood and affect anxiousl. MUSCULOSKELETAL:No Clubbing/cyanosis;muscles-grossly intact. evidence of OA NEUROLOGICAL: Cranial nerves grossly intact; no facial asymmetry, power and sensation grossly intact. LYMPHATICS: No lymph nodes palpable in the axilla and neck INVESTIGATIONS, reviewed in the clinical context: WBC 13 hemoglobin 14.7 platelets 292 creatinine 0.99 TSH 2.1 EKG tracing personally reviewed by me-atrial flutter, rate 147 Chest x-ray film personally reviewed by me-some chronic changes Previous studies Abdominal ultrasound: Evidence of cirrhosis 2-D echocardiogram: Moderate concentric LVH. EF 35-40%. Right ventricular moderately enlarged. Assessment and plan: -Acute worsening of atrial flutter fibrillation rate : [ Patient was cardioverted on April 15] IV Cardizem. Eliquis. Toprol-XL 25. Sotalol 160 mg twice a day. Follow with cardiology -chronic congestive heart failure exacerbation from systolic and diastolic dysfunction EF 45 % Aldactone 25 mg. Entresto - chronic pancreatitis from alcoholism: - COPD exacerbation in an ex cigarette smoker Symbicort 160/4.52 puffs twice a day., -Alcohol-induced cirrhosis: [id number] mg a day. Low-salt diet. -Chronic nicotine dependence, cigarette smoker Nicotine patch 7 -Chronic fibromyalgia Flexeril 10 mg 3 times a day -Essential hypertension Zestril 20 mg a day. Lopressor 50 mg twice a day -Primary osteoarthritis, multiple joints bilaterally Pain medications as needed -Alcoholic peripheral neuropathy -restless leg syndrome Requip 4 mg daily at bedtime -Alvarenga's esophagus Protonix 40 mg a day -Full code IV Cardizem drip. Increase atenolol. Toprol-XL. Resume home medications. Discussed with patient. Cardiology consulted. Past Medical History Past Medical History: Atrial Fibrillation, Coronary Artery Disease (CAD), Heart Failure, COPD, Diabetes Mellitus, Eye Disorder, Fibromyalgia, Hypertension, Myocardial Infarction ([place]), Osteoarthritis (OA), Prostate Disorder, Vascular Disorder Additional Past Medical History / Comment(s): Patient states did not have [place] was a valve issue. Chronic cough, hx pancreatitis, bilateral eye glaucoma, n europathy bilateral feet, poor circulation to legs, varicose veins, RLS, hx BPH, colitis, gastritis, Alvarenga's esophagus, shingles in 2013 and states joint pain since, chronic low back pain, DDD. Last Myocardial Infarction Date:: 09/02/16 History of Any Multi-Drug Resistant Organisms: None Reported Past Surgical History: Appendectomy, Heart Catheterization, Joint Replacement, Orthopedic Surgery, Prostate Surgery Additional Past Surgical History / Comment(s): Right knee arthroscopy for torn meniscus, right knee replacement, EGD, colonoscopy, TURP. Past Anesthesia/Blood Transfusion Reactions: No Reported Reaction Past Psychological History: Anxiety, Depression Additional Psychological History / Comment(s): Pt resides with his sister Ewelina. Smoking Status: Current every day smoker Past Alcohol Use History: None Reported Additional Past Alcohol Use History / Comment(s): Started smoking at age 13, quit smoking 10/2016, but has an occasional cigarette or 2 in a week. denies currently alcohol use Past Drug Use History: None Reported Additional Drug Use History / Comment(s): Past cocaine use, pt states its been years since he used. - Past Family History Father Family Medical History: CVA/TIA, Hypertension Additional Family Medical History / Comment(s): Father at the age of 38yrs from HTN/CVA. He was an alcoholic. Mother Family Medical History: COPD, Diabetes Mellitus Additional Family Medical History / Comment(s): Mother of emphysema at the age of 74 yrs (2003), mom had hx of drinking and smoking. Medications and Allergies Home Medications Medication Instructions Recorded Confirmed Type Montelukast [Singulair] 10 mg PO DAILY@1200 01/12/18 05/13/22 History Omeprazole 20 mg PO DAILY@119902/08/20 05/13/22 History Latanoprost Ophth [Xalatan 0.005%] 1 drops BOTH EYES HS 11/08/21 05/13/22 History Tamsulosin [Flomax] 0.4 mg PO DAILY@119911/08/21 05/13/22 History rOPINIRole HCL [Requip] 4 mg PO HS@179911/08/21 05/13/22 History Cyclobenzaprine [Flexeril] 10 mg PO TID@0600,1200,1800 11/24/21 05/13/22 History Loratadine [Claritin] 10 mg PO DAILY@1200 11/24/21 05/13/22 History oxyCODONE-APAP 10-325MG [Percocet 1 tab PO Q8HR PRN 11/24/21 05/13/22 History 10-325 mg] Budesonide-Formot 160-4.5 Mcg 2 puff INHALATION RT-BID 04/11/22 05/13/22 History [Symbicort 160-4.5 Mcg Inhaler] Empagliflozin [Jardiance] 10 mg PO DAILY@1200 04/11/22 05/13/22 History Nicotine 7Mg/24Hr Patch [Habitrol] 1 patch TRANSDERM DAILY #14 patch 04/16/22 05/13/22 Rx Apixaban [Eliquis] 5 mg PO BID@0600,1800 05/13/22 05/13/22 History Metoprolol Tartrate [Lopressor] 25 mg PO TID@0600,1200,1800 05/13/22 05/13/22 History Sacubitril/Valsartan [Entresto 24 1 tab PO BID@0600,1800 05/13/22 05/13/22 History mg-26 mg Tablet] Sotalol [Betapace] 80 mg PO BID@0600,1800 05/13/22 05/13/22 History Spironolactone [Aldactone] 25 mg PO DAILY@0600 05/13/22 05/13/22 History Allergies Allergy/AdvReac Type Severity Reaction Status Date / Time pregabalin [From Lyrica] Allergy Leg Verified 05/13/22 20:11 swelling amoxicillin trihydrate AdvReac Rapid Verified 05/13/22 20:11 [From Augmentin] Heart Rate potassium clavulanate AdvReac FELT LIKE Verified 05/13/22 20:11 [From Augmentin] HE WAS GOING TO PASS OUT FAST HEARTBEAT" Physical Exam Vitals: Vital Signs Temp Pulse Pulse Resp BP BP Pulse Ox 05/14/22 08:00 97.8 F 65 16 123/66 94 L 05/14/22 04:00 75 19 123/66 96 05/14/22 00:00 75 20 142/89 99 05/13/22 20:49 133 H 19 115/93 97 05/13/22 18:58 97.9 F 140 H 22 135/83 98 05/13/22 18:27 149 H 18 131/94 96 05/13/22 16:58 142/115 05/13/22 16:55 145 H 05/13/22 16:54 97.8 F 147 H 22 96 05/13/22 16:44 98.7 F 148 H 18 136/101 96 Intake and Output 05/13/22 05/14/22 05/14/22 22:59 06:59 14:59 Output Total 500 275 Balance -500 -275 Output: Urine 500 275 Other: Voiding Method Urinal Urinal # Bowel Movements 1 Weight 104.326 kg Results CBC & Chem 7: 05/13/22 16:56 05/13/22 16:56 Labs: Abnormal Lab Results - Last 24 Hours (Table) 05/13/22 05/13/22 05/13/22 Range/Units 16:56 16:56 21:33 WBC 13.0 H (3.8-10.6) k/uL Neutrophils # 10.5 H (1.3-7.7) k/uL Carbon Dioxide 19 L (22-30) mmol/L Glucose 124 H (74-99) mg/dL POC Glucose (mg/dL) 167 H (70-110) mg/dL Thrombosis Risk Factor Assmnt - Choose All That Apply Any of the Below Risk Factors Present?: Yes Each Factor Represents 1 point: Abnormal pulmonary function (COPD), Obesity (BMI >25) Each Risk Factor Represents 2 Points: Age 61-74 years Thrombosis Risk Factor Assessment Total Risk Factor Score: 4 Thrombosis Risk Factor Assessment Level: Moderate Risk
[2022-05-14] MEDS: DILTIAZEM 125 MG in SODIUM CHLORIDE 0.9% 100 ML IV SCH (14:39)
[2022-05-14 16:40] LABS: Glucose,Whole Blood 151 mg/dL (70-110)
[2022-05-14] MEDS: NICOTINE 7MG/24HR PATCH TRANSDERM SCH (17:07)
[2022-05-14] MEDS ORDERED: rOPINIRole HCL 4 MG TABLET PO SCH (18:00)
[2022-05-14 19:34] LABS: Glucose,Whole Blood 137 mg/dL (70-110)
[2022-05-15] MEDS: SPIRONOLACTONE 25 MG TAB PO SCH (05:16)
[2022-05-15] MEDS: oxyCODONE-APAP 10-325MG 1 EACH TAB PO PRN ×3 (05:16→21:21)
[2022-05-15] MEDS: CYCLOBENZAPRINE 10 MG TAB PO SCH ×3 (05:17→17:44)
[2022-05-15] MEDS: SACUBITRIL/VALSARTAN 24 MG-26 MG TABLET PO SCH ×2 (05:17→17:44)
[2022-05-15 05:45] LABS: Glucose,Whole Blood 165 mg/dL (70-110)
[2022-05-15] MEDS: SYMBICORT 160-4.5 MCG INHALER INHALATION SCH ×2 (08:40→19:35)
[2022-05-15] MEDS: METOPROLOL SUCCINATE (ER) 25 MG TAB.ER.24H PO SCH (09:58)
[2022-05-15] MEDS: NICOTINE 7MG/24HR PATCH TRANSDERM SCH (09:58)
[2022-05-15] MEDS: APIXABAN 5 MG TAB PO SCH ×2 (09:58→20:19)
[2022-05-15] MEDS: SOTALOL 80 MG TAB PO SCH ×2 (09:58→20:19)
--- NOTE | 2022-05-15 11:53 | P.PN ---
Subjective Progress Note Date: 05/15/22 This pleasant 61-year-old gentleman has a known history of persistent atrial fibrillation on Eliquis with recent failed cardioversion, nonischemic cardiomyopathy mild nonobstructive coronary artery disease, moderate aortic regurgitation, hypertension, hyperlipidemia heart failure, COPD, diabetes, chronic nicotine dependence, cirrhosis of the liver, pancreatitis secondary to a history of alcohol use, Alvarenga's esophagus. We have been asked to see the patient for atrial fibrillation with RVR. Patient follows with Dr. mcgraw in the office. Patient presented with tachycardia and was found to be in atrial fibrillation with RVR with a ventricular rate of 147. The patient recently underwent a cardioversion and was converted to sinus rhythm. However on follow- up he was found to be back in atrial fibrillation. Patient was started on sotalol at that time. He denies missing a dose of medication. He is scheduled to undergo a ablation May [address] Ann. He is on Eliqus for anticoagulation. He continues on Toprol-XL 25 mg daily. The patient is seen today resting comfortably in bed in no signs of acute distress. He denies chest pain or increased shortness of breath. Patient EKG t his morning that showed atrial fibrillation with RVR, nonspecific ST-T wave changes. Heart rate remains uncontrolled ranging from 100-130. We will increase metoprolol to 50 mg daily Will obtain a 2-D echocardiogram. Objective - Vital Signs Vital signs: Vital Signs Temp 98.1 F 05/15/22 08:00 Pulse 118 H 05/15/22 08:00 Resp 18 05/15/22 08:00 BP 106/67 05/15/22 08:00 Pulse Ox 97 05/15/22 08:00 FiO2 Intake & Output 05/14/22 05/15/22 05/15/22 18:59 06:59 18:59 Intake Total 995 240 Output Total 275 550 Balance 720 -550 240 Intake: Intake, IV Titration 15 Amount Diltiazem 125 mg In 15 Sodium Chloride 0.9% 100 ml @ 7.5 MG/HR 7.5 mls/hr IV .[id number] [facility] Rx#: [id number] Oral 980 240 Output: Urine 275 550 Other: Voiding Method Urinal Urinal # Bowel Movements 1 - Exam PHYSICAL EXAM: VITAL SIGNS: Reviewed. GENERAL: Well-developed in no acute distress. HEENT: Head is normocephalic. Pupils are equal, round. Sclerae anicteric. Mucous membranes of the mouth are moist. NECK: Supple. No JVD or thyromegaly RESPIRATORY: Respirations even and unlabored. Lungs diminished to auscultation bilaterally. CARDIO: Irregular rate and rhythm. . No murmur or gallops. EXTREMITIES: Normal range of motion. No clubbing or cyanosis. Peripheral pulses intact. Negative for bilateral lower extremity edema NEURO: Orientated to person, time, mood is appropriate - Labs CBC & Chem 7: 05/13/22 16:56 05/13/22 16:56 Labs: Abnormal Lab Results - Last 24 Hours (Table) 05/14/22 05/14/22 05/15/22 Range/Units 16:38 19:33 05:41 POC Glucose (mg/dL) 151 H 137 H 165 H (70-110) mg/dL Assessment and Plan Assessment: Persistent atrial fibrillation Nonischemic cardiomyopathy Mild nonobstructive coronary artery disease Moderate aortic regurgitation Plan: Increase metoprolol to 50 mg daily Continue with Eliquis sotalol Obtain a 2-D echocardiogram Continue with telemetry monitoring Continue with all other current cardiac medications Further recommendations based on clinical course The above impression and plan of care have been discussed and directed by the signing physician. Kendra Schaefer, nurse practitioner, acting as scribe for signing physician.
[2022-05-15 12:17] LABS: Glucose,Whole Blood 128 mg/dL (70-110)
--- NOTE | 2022-05-15 12:38 | P.PN ---
Progress Note - Text Progress Note Date: 05/15/22 Chief Complaint: Heart racing This is a [address] Chavez. Chronic stable medical conditions include COPD, fibromyalgia, hypertension, osteoarthritis, chronic pancreatitis from alcoholism, peripheral neuropathy varicose veins, restless leg syndrome, BPH surgery, Alvarenga's esophagus and chronic low back pain from osteoarthritis. Alcohol use disorder with cirrhosis. . Still smokes about a few cigarettes a day. Had cardioversion done for atrial fibrillation in March Patient now presented to 3 days of heart racing. Palpitation. Some shortness of breath. Eating okay. No fever no chills. Mild edema. Presented with uncontrolled atrial fibrillation. Started on a Cardizem drip. Tired. May 15: A. fib with heart rate still above 100. On Toprol-XL, sotalol. Oral intake fair. Some shortness of breath. Active Medications Apixaban (Apixaban 5 Mg Tab) 5 mg PO BID [facility]; Protocol Last Admin: 05/15/22 09:58 Dose: 5 mg Budesonide/Formoterol Fumarate (Symbicort 160-4.5 Mcg Inhaler) 2 puff INHALATION RT-BID [facility] Last Admin: 05/15/22 08:40 Dose: 2 puff Cyclobenzaprine HCl (Cyclobenzaprine 10 Mg Tab) 10 mg PO TID@0600,1200,1800 [facility] Last Admin: 05/15/22 05:17 Dose: 10 mg Metoprolol Succinate (Metoprolol Succinate (Er) 25 Mg Tab.Er.24h) 25 mg PO DAILY [facility] Last Admin: 05/15/22 09:58 Dose: 25 mg Montelukast Sodium (Montelukast 10 Mg Tab) 10 mg PO DAILY@1200 [facility] Last Admin: 05/14/22 11:21 Dose: 10 mg Naloxone HCl (Naloxone 0.4 Mg/Ml 1 Ml Vial) 0.2 mg IV Q2M PRN PRN Reason: Opioid Reversal Nicotine (Nicotine 7mg/24hr Patch) 1 patch TRANSDERM DAILY [facility] Last Admin: 05/15/22 09:58 Dose: Not Given Non-Formulary Medication (Empagliflozin [Jardiance]) 10 mg PO DAILY@1200 [facility] Last Admin: 05/14/22 11:22 Dose: Not Given Oxycodone/Acetaminophen (Oxycodone-Apap 10-325mg 1 Each Tab) 1 each PO Q8HR PRN PRN Reason: Pain Last Admin: 05/15/22 05:16 Dose: 1 each Ropinirole HCl (Ropinirole Hcl 4 Mg Tablet) 4 mg PO HS@1800 [facility] Last Admin: 05/14/22 17:06 Dose: 4 mg Sacubitril/Valsartan (Sacubitril/Valsartan 24 Mg-26 Mg Tablet) 1 each PO BID@0600,1800 [facility] Last Admin: 05/15/22 05:17 Dose: 1 each Sotalol HCl (Sotalol 80 Mg Tab) 160 mg PO BID [facility] Last Admin: 05/15/22 09:58 Dose: 160 mg Spironolactone (Spironolactone 25 Mg Tab) 25 mg PO DAILY@0600 [facility] Last Admin: 05/15/22 05:16 Dose: 25 mg Tamsulosin HCl (Tamsulosin 0.4 Mg Cap.Er.24h) 0.4 mg PO DAILY@1200 [facility] Last Admin: 05/14/22 11:21 Dose: 0.4 mg Past medical history to include: COPD, fibromyalgia, hypertension, osteoarthritis, chronic pancreatitis from alcoholism, peripheral neuropathy, varicose pains, restless leg syndrome, BPH with surgery, Alvarenga's esophagus, chronic low back pain from osteoarthritis, alcohol use disorder with cirrhosis, atrial fibrillation with ablation Social history: Patient lives with his sister Ewelina. Smoked for close to 42 years. Now down to a few cigarettes a day.. Drinking alcohol for years. Stopped February 2022 Physical examination: VITAL SIGNS: 98.1, 118, 18, 10 6 x 67, 97% room air GENERAL:reclining, short of breath awake EYES: Pupils equal. Conjunctiva normal. HEENT: External appearance of nose and ears normal, oral cavity grossly normal. NECK: JVD raised; masses not palpable. HEART: Heart sounds irregular; significant edema. LUNGS: Respiratory rate increased; decreased breath sounds, some wheezing ABDOMEN: Soft, some distended, nontender, liver spleen not palpable, no masses palpable. divarification of recti . PSYCH: Alert and oriented x3; mood and affect anxiousl. MUSCULOSKELETAL:No Clubbing/cyanosis;muscles-grossly intact. evidence of OA INVESTIGATIONS, reviewed in the clinical context: WBC 13 hemoglobin 14.7 platelets 292 creatinine 0.99 TSH 2.1 EKG tracing personally reviewed by me-atrial flutter, rate 147 Chest x-ray film personally reviewed by me-some chronic changes Previous studies Abdominal ultrasound: Evidence of cirrhosis 2-D echocardiogram: Moderate concentric LVH. EF 35-40%. Right ventricular moderately enlarged. Assessment and plan: -Acute worsening of atrial flutter fibrillation rate : [ Patient was cardioverted on April 15] taken off IV Cardizem. Eliquis. Toprol-XL 25. Sotalol 160 mg twice a day. Follow with cardiology -chronic congestive heart failure exacerbation from systolic and diastolic dysfunction EF 45 % Aldactone 25 mg. Entresto - chronic pancreatitis from alcoholism: - COPD exacerbation in an ex cigarette smoker Symbicort 160/4.52 puffs twice a day., -Alcohol-induced cirrhosis: [id number] mg a day. Low-salt diet. -Chronic nicotine dependence, cigarette smoker Nicotine patch 7 -Chronic fibromyalgia Flexeril 10 mg 3 times a day -Essential hypertension Zestril 20 mg a day. Lopressor 50 mg twice a day -Primary osteoarthritis, multiple joints bilaterally Pain medications as needed -Alcoholic peripheral neuropathy -restless leg syndrome Requip 4 mg daily at bedtime -Alvarenga's esophagus Protonix 40 mg a day -Full code Taken off IV Cardizem drip. Toprol-XL. Follow with cardiology.
[2022-05-15] MEDS: TAMSULOSIN 0.4 MG CAP.ER.24H PO SCH (13:19)
[2022-05-15] MEDS: MONTELUKAST 10 MG TAB PO SCH (13:19)
[2022-05-15] MEDS: NON FORMULARY DRUG (Empagliflozin [Jardiance] 10 MG Tablet) PO SCH (13:20)
[2022-05-15] MEDS ORDERED: METOPROLOL SUCCINATE (ER) 25 MG TAB.ER.24H PO STA (13:29)
[2022-05-15 16:48] LABS: Glucose,Whole Blood 158 mg/dL (70-110)
[2022-05-15] MEDS: rOPINIRole HCL 4 MG TABLET PO SCH (17:44)
[2022-05-15 19:42] LABS: Glucose,Whole Blood 99 mg/dL (70-110)
[2022-05-16] MEDS: SACUBITRIL/VALSARTAN 24 MG-26 MG TABLET PO SCH (05:06)
[2022-05-16] MEDS: oxyCODONE-APAP 10-325MG 1 EACH TAB PO PRN (05:06)
[2022-05-16] MEDS: CYCLOBENZAPRINE 10 MG TAB PO SCH ×2 (05:06→11:37)
[2022-05-16] MEDS: SPIRONOLACTONE 25 MG TAB PO SCH (05:06)
[2022-05-16 06:04] LABS: Glucose,Whole Blood 150 mg/dL (70-110)
[2022-05-16] MEDS: NON FORMULARY DRUG (Empagliflozin [Jardiance] 10 MG Tablet) PO SCH (07:54)
[2022-05-16] MEDS: SOTALOL 80 MG TAB PO SCH (08:03)
[2022-05-16] MEDS: NICOTINE 7MG/24HR PATCH TRANSDERM SCH (08:03)
[2022-05-16] MEDS: APIXABAN 5 MG TAB PO SCH (08:03)
[2022-05-16] MEDS: SYMBICORT 160-4.5 MCG INHALER INHALATION SCH (08:05)
[2022-05-16 08:08] VITALS: TEMP 97.6
[2022-05-16] MEDS ORDERED: METOPROLOL SUCCINATE (ER) 50 MG TAB.ER.24H PO SCH (09:00)
[2022-05-16 11:37] LABS: Glucose,Whole Blood 101 mg/dL (70-110)
[2022-05-16] MEDS: TAMSULOSIN 0.4 MG CAP.ER.24H PO SCH (11:37)
[2022-05-16] MEDS: MONTELUKAST 10 MG TAB PO SCH (11:37)
[2022-05-16 12:10] VITALS: BP 117/76; PULSE 70; RESP 20
--- NOTE | 2022-05-16 13:32 | P.DS ---
Providers Date of admission: 05/13/22 18:40 Expected date of discharge: 05/16/22 Attending physician: Jamal Tamayo Consults: 05/13/22 18:40 Consult Physician Urgent Consulting Provider: Quirino Ann Consult Reason/Comments: Atrial flutter with RVR Do you want consulting provider notified?: Yes Primary care physician: Albert Chavez [facility]: Chief Complaint: Heart racing This is a [address] Chavez. Chronic stable medical conditions include COPD, fibromyalgia, hypertension, osteoarthritis, chronic pancreatitis from alcoholism, peripheral neuropathy varicose veins, restless leg syndrome, BPH surgery, Alvarenga's esophagus and chronic low back pain from osteoarthritis. Alcohol use disorder with cirrhosis. . Still smokes about a few cigarettes a day. Had cardioversion done for atrial fibrillation in March Patient now presented to 3 days of heart racing. Palpitation. Some shortness of breath. Eating okay. No fever no chills. Mild edema. Presented with uncontrolled atrial fibrillation. Started on a Cardizem drip. Tired. May 15: A. fib with heart rate still above 100. On Toprol-XL, sotalol. Oral intake fair. Some shortness of breath. May 16: Some episodes overnight of heart drinking about 100. A. fib. Toprol-XL increased to [address] FRANCISCA Yen. Patient cleared for discharge. Was discussed with the patient. Advised against smoking. Follow-up with cardiology and PCP. Breathing better Discussion and discharge planning more than 35 minutes Past medical history to include: COPD, fibromyalgia, hypertension, osteoarthritis, chronic pancreatitis from alcoholism, peripheral neuropathy, varicose pains, restless leg syndrome, BPH with surgery, Alvarenga's esophagus, chronic low back pain from osteoarthritis, alcohol use disorder with cirrhosis, atrial fibrillation with ablation Social history: Patient lives with his sister Ewelina. Smoked for close to 42 years. Now down to a few cigarettes a day.. Drinking alcohol for years. Stopped February 2022 Physical examination: VITAL SIGNS: 97.6, 70, 20, 11 7 x 76, 98% room air GENERAL:reclining, breathing better EYES: Pupils equal. Conjunctiva normal. HEENT: External appearance of nose and ears normal, oral cavity grossly normal. NECK: JVD raised; masses not palpable. HEART: Heart sounds irregular; some edema. LUNGS: Respiratory rate increased; decreased breath sounds, ABDOMEN: Soft, some distended, nontender, liver spleen not palpable, no masses palpable. divarification of recti . PSYCH: Alert and oriented x3; mood and affect anxiousl. MUSCULOSKELETAL:No Clubbing/cyanosis;muscles-grossly intact. evidence of OA INVESTIGATIONS, reviewed in the clinical context: WBC 13 hemoglobin 14.7 platelets 292 creatinine 0.99 TSH 2.1 EKG tracing personally reviewed by me-atrial flutter, rate 147 Chest x-ray film personally reviewed by me-some chronic changes Previous studies Abdominal ultrasound: Evidence of cirrhosis 2-D echocardiogram: Moderate concentric LVH. EF 35-40%. Right ventricular moderately enlarged. Assessment and plan: -Acute worsening of atrial flutter fibrillation rate : Better [ Patient was cardioverted on April 15] taken off IV Cardizem. Eliquis. Toprol-XL 75. Sotalol 160 mg twice a day. Follow with cardiology -chronic congestive heart failure exacerbation from systolic and diastolic dysfunction EF 45 % Aldactone 25 mg. Entresto - chronic pancreatitis from alcoholism: - COPD exacerbation in an ex cigarette smoker Symbicort 160/4.52 puffs twice a day., -Alcohol-induced cirrhosis: [id number] mg a day. Low-salt diet. -Chronic nicotine dependence, cigarette smoker Nicotine patch 7 -Chronic fibromyalgia Flexeril 10 mg 3 times a day -Essential hypertension Zestril 20 mg a day. Lopressor 50 mg twice a day -Primary osteoarthritis, multiple joints bilaterally Pain medications as needed -Alcoholic peripheral neuropathy -restless leg syndrome Requip 4 mg daily at bedtime -Alvarenga's esophagus Protonix 40 mg a day -Full code Disposition: Home Plan - Discharge Summary Discharge Rx Participant: No New Discharge Prescriptions: New Metoprolol Succinate (ER) [Toprol XL] 75 mg PO DAILY #100 tab Continue Montelukast [Singulair] 10 mg PO DAILY@1200 Omeprazole 20 mg PO DAILY@1200 Latanoprost Ophth [Xalatan 0.005%] 1 drops BOTH EYES HS Tamsulosin [Flomax] 0.4 mg PO DAILY@1200 Cyclobenzaprine [Flexeril] 10 mg PO TID@0600,1200,1800 oxyCODONE-APAP 10-325MG [Percocet 10-325 mg] 1 tab PO Q8HR PRN PRN Reason: Pain Empagliflozin [Jardiance] 10 mg PO DAILY@1200 Spironolactone [Aldactone] 25 mg PO DAILY@0600 rOPINIRole HCL [Requip] 4 mg PO HS@1800 Loratadine [Claritin] 10 mg PO DAILY@1200 Budesonide-Formot 160-4.5 Mcg [Symbicort 160-4.5 Mcg Inhaler] 2 puff INHALATION RT-BID Nicotine 7Mg/24Hr Patch [Habitrol] 1 patch TRANSDERM DAILY #14 patch Sacubitril/Valsartan [Entresto 24 mg-26 mg Tablet] 1 tab PO BID@0600,1800 Apixaban [Eliquis] 5 mg PO BID@0600,1800 Changed Sotalol [Betapace] 80 mg PO BID@0600,1800 #120 tab Discontinued Metoprolol Tartrate [Lopressor] 25 mg PO TID@0600,1200,1800 Discharge Medication List Montelukast [Singulair] 10 mg PO DAILY@1200 01/12/18 [History] Omeprazole 20 mg PO DAILY@1200 02/08/20 [History] Latanoprost Ophth [Xalatan 0.005%] 1 drops BOTH EYES HS 11/08/21 [History] Tamsulosin [Flomax] 0.4 mg PO DAILY@1200 11/08/21 [History] rOPINIRole HCL [Requip] 4 mg PO HS@1800 11/08/21 [History] Cyclobenzaprine [Flexeril] 10 mg PO TID@0600,1200,1800 11/24/21 [History] Loratadine [Claritin] 10 mg PO DAILY@1200 11/24/21 [History] oxyCODONE-APAP 10-325MG [Percocet 10-325 mg] 1 tab PO Q8HR PRN 11/24/21 [History] Budesonide-Formot 160-4.5 Mcg [Symbicort 160-4.5 Mcg Inhaler] 2 puff INHALATION RT-BID 04/11/22 [History] Empagliflozin [Jardiance] 10 mg PO DAILY@1200 04/11/22 [History] Nicotine 7Mg/24Hr Patch [Habitrol] 1 patch TRANSDERM DAILY #14 patch 04/16/22 [Rx] Apixaban [Eliquis] 5 mg PO BID@0600,1800 05/13/22 [History] Sacubitril/Valsartan [Entresto 24 mg-26 mg Tablet] 1 tab PO BID@599,1800 05/13/22 [History] Spironolactone [Aldactone] 25 mg PO DAILY@00 05/13/22 [History] Metoprolol Succinate (ER) [Toprol XL] 75 mg PO DAILY #100 tab 05/16/22 [Rx] Sotalol [Betapace] 80 mg PO BID@599,1799 #120 tab 05/16/22 [Rx] Follow up Appointment(s)/Referral(s): cardiology, [Other] - 05/20/22 1:30 pm ([facility]-- appointment with Dr. Avila) Albert Chavez MD [Primary Care Provider] - 05/23/22 2:00 pm Patient Instructions/Handouts: A-fib (Atrial Fibrillation) (DC) Discharge Disposition: HOME SELF-CARE
--- NOTE | 2022-05-16 15:27 | PN ---
PROGRESS NOTE SUBJECTIVE: This is a gentleman who has been considered for atrial flutter ablation by Dr. Ann on May 25. His rate control is slightly suboptimal, I will increase the metoprolol succinate from 50 to 75 mg daily. OBJECTIVE: HEART: S1, S2 heard normally, irregular rhythm noted, sharp systolic murmur noted. LUNGS: Reveal improved air entry. ABDOMEN: Exam unchanged. EXTREMITIES: Lower extremities exam unchanged. Patient can be discharged today and have his ablation as scheduled. He is anticoagulated well. MMODL / IJN: [id number] /
[2022-05-17] MEDS ORDERED: METOPROLOL SUCCINATE (ER) 25 MG TAB.ER.24H PO SCH (09:00)
--- NOTE | 2022-05-19 06:44 | CDI ---
Documentation Clarification Form Date: 05/19/22 From: Nancy Murdock Admit Date: 05/13/2022 06:40:00 PM Patient Name: Torsten Herrera Visit Number: [id number] Discharge Date: 05/16/2022 12:16:00 PM ATTENTION: The Clinical Documentation Specialists (CDI) and [facility] Coding Staff appreciate your assistance in clarifying documentation. Please respond to the clarification below the line at the bottom and electronically sign. The CDI & [facility] staff will review the response and follow-up if needed. Please note: Queries are made part of the Legal Health Record. If you have any questions, please contact the author of this message via ITS. Dr. Evan Yen, Atrial Flutter is documented in the ED Note, H&P, progress notes and discharge summary. Additional clarification regarding the type of Atrial Flutter is requested. History/Risk factors: persistent atrial fibrillation, HTN w acute on chronic systolic and diastolic CHF, COPD w exacerbation, alcohol-induced chronic pancreatitis, non-ischemic cardiomyopathy, alcoholic polyneuropathy, T2DM vascular disease, alcoholic cirrhosis of liver wo ascites, alcohol dependence in remission Clinical Indicators: Per your 05/16 PN - This is a gentleman who has been considered for atrial flutter ablation by Dr. Ann on May 25. His rate control is slightly suboptimal, I will increase the metoprolol succinate from 50 to 75 mg daily. EKG/telemetry: atrial flutter/tachycardia w rapid ventricular response, Vent rate 147, QRS 99, QT/QTc 298/382 Please clarify the type of Atrial Flutter, if known: [ ] Typical/Type I [ ] Atypical/Type II [ ] Other, please specify [ ] Unable to determine Typical/Type I MTDD
== END 2022-05-16 12:16 | disposition home or self-care (01) | DRG 308 ==
LOC: EC 16:36 → 3SCARD 18:40
PROVIDERS: ADMIT Hospitalist; ATTEND Hospitalist
DX: I48.3 Typical atrial flutter (principal); I50.43 Acute on chronic combined systolic (congestive) and diastolic (congestive) heart failure; J44.1 Chronic obstructive pulmonary disease with (acute) exacerbation; K86.0 Alcohol-induced chronic pancreatitis; I42.8 Other cardiomyopathies; G62.1 Alcoholic polyneuropathy; E11.51 Type 2 diabetes mellitus with diabetic peripheral angiopathy without gangrene; I48.19 Other persistent atrial fibrillation; I11.0 Hypertensive heart disease with heart failure; K70.30 Alcoholic cirrhosis of liver without ascites; F10.21 Alcohol dependence, in remission; F14.11 Cocaine abuse, in remission; I35.1 Nonrheumatic aortic (valve) insufficiency; H40.9 Unspecified glaucoma; G25.81 Restless legs syndrome; I83.90 Asymptomatic varicose veins of unspecified lower extremity; I25.10 Atherosclerotic heart disease of native coronary artery without angina pectoris; E78.5 Hyperlipidemia, unspecified; M79.7 Fibromyalgia; I25.2 Old myocardial infarction; N40.0 Benign prostatic hyperplasia without lower urinary tract symptoms; K22.70 Barrett's esophagus without dysplasia; M47.819 Spondylosis without myelopathy or radiculopathy, site unspecified; G89.29 Other chronic pain; M54.50 Low back pain, unspecified; M15.9 Polyosteoarthritis, unspecified; F17.210 Nicotine dependence, cigarettes, uncomplicated; Z71.6 Tobacco abuse counseling; Z79.01 Long term (current) use of anticoagulants; Z79.51 Long term (current) use of inhaled steroids; Z79.84 Long term (current) use of oral hypoglycemic drugs; Z79.899 Other long term (current) drug therapy; Z96.651 Presence of right artificial knee joint; Z88.0 Allergy status to penicillin; Z88.8 Allergy status to other drugs, medicaments and biological substances; Z82.49 Family history of ischemic heart disease and other diseases of the circulatory system
CPT/HCPCS: 36415; 71045; 80053; 83735; 83880; 84439; 84443; 84481; 84484; 85025; 85610; 85730; 93005; 94640; 96365; 96366; 96374; 99291

== ENCOUNTER 2022-07-14 08:39 | Day surgery (SDC) | payer OTHER ==
[2022-07-12 09:49] VITALS: BMI 31.1
[~2022-07-14 08:39] MED LIST changes: -LACTATED RINGERS 1,000 ML IV SCH
[2022-07-14] MEDS ORDERED: SODIUM CHLORIDE 0.9% 500 ML 500 ML IV ONE (09:11)
[2022-07-14 09:20] VITALS: TEMP 97.9
[2022-07-14 09:27] LABS: Glucose,Whole Blood 109 mg/dL (70-110)
[2022-07-14 09:38] LABS: Calcium 8.7 mg/dL (8.4-10.2); Potassium 5.4 mmol/L (3.5-5.1)
[2022-07-14] MEDS ORDERED: PROPOFOL 10 MG/ML 20 ML VIAL IV ONE (10:26)
[2022-07-14] MEDS ORDERED: LIDOCAINE 2% INJ 20 MG/ML (2 ML VIAL) ONE (10:26)
[2022-07-14 12:15] VITALS: RESP 16
[2022-07-14 12:26] VITALS: BP 119/64; PULSE 78
--- NOTE | 2022-07-15 04:05 | ECHOT ---
TRANSESOPHAGEAL ECHOCARDIOGRAM INDICATION: Persistent atrial fibrillation. PROCEDURE NOTE: After obtaining informed consent, transesophageal echocardiogram was performed in the left lateral position using an Omniplane probe. Local and IV sedation were obtained by the budget director. The patient tolerated the procedure well without any obvious immediate complications. FINDINGS: 1. There is no intracardiac thrombus within the left atrial appendage, left atrium, right atrium, right ventricle, or left ventricle. 2. Left ventricle shows diffuse global hypokinesis with moderate LV systolic dysfunction. 3. Left atrium appears mildly enlarged. 4. Mitral valve shows [id number] central mitral regurgitation. 5. Aortic valve shows moderate aortic regurgitation. 6. There is mild tricuspid regurgitation. There is no evidence of [id number] shunt by color-flow Doppler. CONCLUSION: 1. Moderate LV systolic dysfunction. 2. Dilated aortic root. 3. Moderate aortic regurgitation. 4. [id number] mitral regurgitation. 5. No intracardiac thrombus. PLAN: The patient will undergo cardioversion. CRISTA / TONYN: [id number] /
--- NOTE | 2022-07-15 08:39 | PCN ---
PROCEDURE NOTE PROCEDURE PERFORMED: Cardioversion. INDICATION: Persistent atrial fibrillation. PROCEDURE NOTE: After making sure that the patient does not have intracardiac thrombus and that he is adequately anticoagulated, he was sedated by the hand compositor and underwent cardioversion with 150 joules of synchronized DC current. CRISTA / AGUILAR: [id number] /
== END 2022-07-14 12:33 | disposition home or self-care (01) ==
LOC: CATHCVL 08:39
PROVIDERS: ATTEND Internal Medicine Cardiovascular Disease
DX: I48.19 Other persistent atrial fibrillation (principal); I08.0 Rheumatic disorders of both mitral and aortic valves; I77.819 Aortic ectasia, unspecified site
CPT/HCPCS: 93312; 93320; 93325; 92960; 80048; J2704; J2001

== ENCOUNTER 2022-07-15 08:32 | Inpatient (IN) | payer OTHER ==
[2022-07-15] MEDS ORDERED: IPRATROPIUM-ALBUTEROL 3 ML NEB INHALATION STA (08:44)
--- NOTE | 2022-07-15 09:14 | ED ---
General Adult HPI - General Chief complaint: Shortness of Breath Stated complaint: SOB Time Seen by Provider: 07/15/22 08:40 Source: patient, RN notes reviewed, old records reviewed Mode of arrival: ambulatory Limitations: no limitations - History of Present Illness Initial comments: This is a 62-year-old male with past medical history significant for smoking and atrial fibrillation. Patient was cardioverted yesterday. Patient states he woke up today and was very short of breath and exertion made it worse per patient denies any chest pain or palpitations. Patient was in triage with a heart rate of 40. Patient denies any fever chills or cough per patient denies any abdominal pain. Patient has any back pain. Patient denies any recent fever chills or cough. Patient denies any swelling to the legs or calf tenderness. Patient denies any lightheadedness dizziness - Related Data Home Medications Medication Instructions Recorded Confirmed Montelukast [Singulair] 10 mg PO DAILY@1200 01/12/18 07/14/22 Omeprazole 20 mg PO DAILY@1200 02/08/20 07/14/22 Latanoprost Ophth [Xalatan 0.005%] 1 drops BOTH EYES HS 11/08/21 07/14/22 Tamsulosin [Flomax] 0.4 mg PO DAILY@1200 11/08/21 07/14/22 rOPINIRole HCL [Requip] 4 mg PO HS@1800 11/08/21 07/14/22 Cyclobenzaprine [Flexeril] 10 mg PO TID@0600,1200,1800 11/24/21 07/14/22 Loratadine [Claritin] 10 mg PO DAILY@1200 11/24/21 07/14/22 oxyCODONE-APAP 10-325MG [Percocet 1 tab PO Q8HR PRN 11/24/21 07/14/22 10-325 mg] Budesonide-Formot 160-4.5 Mcg 2 puff INHALATION RT-BID 04/11/22 07/14/22 [Symbicort 160-4.5 Mcg Inhaler] Empagliflozin [Jardiance] 10 mg PO DAILY@1200 04/11/22 07/14/22 Apixaban [Eliquis] 5 mg PO BID@0600,1800 05/13/22 07/14/22 Sacubitril/Valsartan [Entresto 24 1 tab PO BID@0600,1800 05/13/22 07/14/22 mg-26 mg Tablet] Spironolactone [Aldactone] 25 mg PO DAILY@0600 05/13/22 07/14/22 Metoprolol Succinate (ER) [Toprol 50 mg PO DAILY 05/23/22 07/14/22 XL] Previous Rx's Medication Instructions Recorded Sotalol [Betapace] 80 mg PO BID@0600,1800 #120 tab 05/16/22 Allergies Allergy/AdvReac Type Severity Reaction Status Date / Time pregabalin [From Lyrica] Allergy Leg Verified 07/15/22 08:37 swelling amoxicillin trihydrate AdvReac Rapid Verified 07/15/22 08:37 [From Augmentin] Heart Rate potassium clavulanate AdvReac FELT LIKE Verified 07/15/22 08:37 [From Augmentin] HE WAS GOING TO PASS OUT FAST HEARTBEAT" Review of Systems ROS Statement: Those systems with pertinent positive or pertinent negative responses have been documented in the HPI. ROS Other: All systems not noted in ROS Statement are negative. Past Medical History Past Medical History: Atrial Fibrillation, Coronary Artery Disease (CAD), Heart Failure, COPD, Diabetes Mellitus, Eye Disorder, Fibromyalgia, Hypertension, Myocardial Infarction ([place]), Osteoarthritis (OA), Prostate Disorder, Vascular Disorder Additional Past Medical History / Comment(s): Chronic cough, hx pancreatitis, bilateral eye glaucoma, neuropathy bilateral feet, poor circulation to legs, varicose veins, RLS, hx BPH, colitis, gastritis, Alvarenga's esophagus, shingles in 2013 and states joint pain since, chronic low back pain, DDD. Last Myocardial Infarction Date:: 09/02/16 History of Any Multi-Drug Resistant Organisms: None Reported Past Surgical History: Appendectomy, Cardiac Ablation, Heart Catheterization, Joint Replacement, Orthopedic Surgery, Prostate Surgery Additional Past Surgical History / Comment(s): Right knee arthroscopy for torn meniscus, right knee replacement, EGD, colonoscopy, TURP. Past Anesthesia/Blood Transfusion Reactions: No Reported Reaction Additional Past Anesthesia/Blood Transfusion Reaction / Comment(s): no hx blood transfusion Past Psychological History: Anxiety, Depression Smoking Status: Current every day smoker Past Alcohol Use History: None Reported Past Drug Use History: None Reported - Past Family History Father Family Medical History: CVA/TIA, Hypertension Additional Family Medical History / Comment(s): Father at the age of 38yrs from HTN/CVA. He was an alcoholic. Mother Family Medical History: COPD, Diabetes Mellitus Additional Family Medical History / Comment(s): Mother of emphysema at the age of 74 yrs (2003), mom had hx of drinking and smoking. General Exam - General Exam Comments Initial Comments: GENERAL: Patient is well-developed and well-nourished. Patient is nontoxic and well-hydr ated and is in mild distress. ENT: Neck is soft and supple. No significant lymphadenopathy is noted. Oropharynx is clear. Moist mucous membranes. Neck has full range of motion without eliciting any pain. EYES: The sclera were anicteric and conjunctiva were pink and moist. Extraocular movements were intact and pupils were equal round and reactive to light. Eyelids were unremarkable. PULMONARY: Patient has some expiratory wheezing CARDIOVASCULAR: There is a regular rate and rhythm without any murmurs gallops or rubs. ABDOMEN: Soft and nontender with normal bowel sounds. SKIN: Skin is clear with no lesions or rashes and otherwise unremarkable. NEUROLOGIC: Patient is alert and oriented x3. Cranial nerves II through XII are grossly intact. Motor and sensory are also intact. Normal speech, volume and content. Symmetrical smile. MUSCULOSKELETAL: Normal extremities with adequate strength and full range of motion. No lower extremity swelling or edema. No calf tenderness. LYMPHATICS: No significant lymphadenopathy is noted PSYCHIATRIC: Normal psychiatric evaluation. Limitations: no limitations Course Vital Signs 07/15/22 07/15/22 07/15/22 08:34 08:48 09:06 Temperature 98.5 F Pulse Rate 40 L 65 Respiratory 22 20 Rate Blood Pressure 135/75 O2 Sat by Pulse 96 Oximetry 07/15/22 09:19 Temperature Pulse Rate 67 Respiratory Rate Blood Pressure O2 Sat by Pulse Oximetry Medical Decision Making - Medical Decision Making EKG is interpreted by me shows a sinus rhythm at 76 bpm W[place] interval 170 QRS is under 90 QT interval 421 QTC is 451. Patient's EKG shows no ST segment elevation or depression. Chest x-ray was interpreted by me. Chest x-ray showed no acute abnormality. Patient's heart rate was in the low 50s well-developed of monitor but the patient's heart rate in triage was 40 beats a minute - Lab Data Result diagrams: 07/15/22 09:00 07/15/22 09:00 Lab Results 07/15/22 07/15/22 07/15/22 Range/Units 09:00 09:00 09:00 WBC 8.7 (3.8-10.6) k/uL RBC 4.97 (4.30-5.90) m/uL Hgb 14.9 (13.0-17.5) gm/dL Hct 46.2 (39.0-53.0) % MCV 92.9 (80.0-100.0) fL MCH 30.0 (25.0-35.0) pg MCHC 32.3 (31.0-37.0) g/dL RDW 16.0 H (11.5-15.5) % Plt Count 256 (150-450) k/uL MPV 7.6 Neutrophils % 64 % Lymphocytes % 24 % Monocytes % 6 % Eosinophils % 3 % Basophils % 1 % Neutrophils # 5.5 (1.3-7.7) k/uL Lymphocytes # 2.1 (1.0-4.8) k/uL Monocytes # 0.5 (0-1.0) k/uL Eosinophils # 0.2 (0-0.7) k/uL Basophils # 0.1 (0-0.2) k/uL Hypochromasia Slight Anisocytosis Slight PT 10.1 (9.0-12.0) sec INR 1.0 (<1.2) APTT 27.4 (22.0-30.0) sec Sodium 135 L (137-145) mmol/L Potassium 4.8 (3.5-5.1) mmol/L Chloride 101 (98-107) mmol/L Carbon Dioxide 23 (22-30) mmol/L Anion Gap 11 mmol/L BUN 30 H (9-20) mg/dL Creatinine 1.47 H (0.66-1.25) mg/dL Est GFR (CKD-EPI)AfAm 58 (>60 ml/min/1.73 sqM) Est GFR (CKD-EPI)NonAf 51 (>60 ml/min/1.73 sqM) Glucose 105 H (74-99) mg/dL Plasma Lactic Acid Carlos Manuel (0.7-2.0) mmol/L Calcium 8.6 (8.4-10.2) mg/dL Magnesium 2.1 (1.6-2.3) mg/dL Total Bilirubin 0.5 (0.2-1.3) mg/dL AST 32 (17-59) U/L ALT 27 (4-49) U/L Alkaline Phosphatase 94 (38-126) U/L Troponin I (0.000-0.034) ng/mL NT-Pro-B Natriuret Pep pg/mL Total Protein 7.1 (6.3-8.2) g/dL Albumin 4.4 (3.5-5.0) g/dL 07/15/22 07/15/22 07/15/22 Range/Units 09:00 09:00 09:00 WBC (3.8-10.6) k/uL RBC (4.30-5.90) m/uL Hgb (13.0-17.5) gm/dL Hct (39.0-53.0) % MCV (80.0-100.0) fL MCH (25.0-35.0) pg MCHC (31.0-37.0) g/dL RDW (11.5-15.5) % Plt Count (150-450) k/uL MPV Neutrophils % % Lymphocytes % % Monocytes % % Eosinophils % % Basophils % % Neutrophils # (1.3-7.7) k/uL Lymphocytes # (1.0-4.8) k/uL Monocytes # (0-1.0) k/uL Eosinophils # (0-0.7) k/uL Basophils # (0-0.2) k/uL Hypochromasia Anisocytosis PT (9.0-12.0) sec INR (<1.2) APTT (22.0-30.0) sec Sodium (137-145) mmol/L Potassium (3.5-5.1) mmol/L Chloride (98-107) mmol/L Carbon Dioxide (22-30) mmol/L Anion Gap mmol/L BUN (9-20) mg/dL Creatinine (0.66-1.25) mg/dL Est GFR (CKD-EPI)AfAm (>60 ml/min/1.73 sqM) Est GFR (CKD-EPI)NonAf (>60 ml/min/1.73 sqM) Glucose (74-99) mg/dL Plasma Lactic Acid Carlos Manuel 1.1 (0.7-2.0) mmol/L Calcium (8.4-10.2) mg/dL Magnesium (1.6-2.3) mg/dL Total Bilirubin (0.2-1.3) mg/dL AST (17-59) U/L ALT (4-49) U/L Alkaline Phosphatase (38-126) U/L Troponin I 0.018 (0.000-0.034) ng/mL NT-Pro-B Natriuret Pep 512 pg/mL Total Protein (6.3-8.2) g/dL Albumin (3.5-5.0) g/dL Disposition Clinical Impression: Bradycardia, Dyspnea Disposition: ADMITTED IP TO THIS HOSP Is patient prescribed a controlled substance at d/c from ED?: No Referrals: Albert Chavez MD [Primary Care Provider] - 1-2 days Time of Disposition: 10:01
[2022-07-15 09:17] LABS: Anisocytosis Slight; Basophils # (A) 0.1 k/uL (0-0.2); Basophils % (A) 1 %; Eosinophils # (A) 0.2 k/uL (0-0.7); Eosinophils % (A) 3 %; HCT 46.2 % (39.0-53.0); HGB 14.9 gm/dL (13.0-17.5); Hypochromasia Slight; Lymphocytes # (A) 2.1 k/uL (1.0-4.8); Lymphocytes % (A) 24 %; MCHC 32.3 g/dL (31.0-37.0); MCV 92.9 fL (80.0-100.0); Mean Platelet Volume 7.6; Monocytes # (A) 0.5 k/uL (0-1.0); Monocytes % (A) 6 %; Neutrophils # (A) 5.5 k/uL (1.3-7.7); Neutrophils % (A) 64 %; Platelet Count 256 k/uL (150-450); RBC 4.97 m/uL (4.30-5.90); WBC 8.7 k/uL (3.8-10.6)
--- NOTE | 2022-07-15 09:32 | XR ---
EXAMINATION TYPE: XR chest 2V DATE OF EXAM: 07/15/2022 COMPARISON: 05/13/2022 INDICATION: Cardioversion, dyspnea TECHNIQUE: Frontal and lateral views of the chest are obtained. FINDINGS: The heart size is normal. The pulmonary vasculature is normal. The lungs are clear. No pneumothorax is evident. IMPRESSION: 1. No acute pulmonary process.
[2022-07-15 09:36] LABS: Partial Thromboplastin Time 27.4 sec (22.0-30.0); Prothrombin Time 10.1 sec (9.0-12.0)
[2022-07-15 09:46] LABS: Albumin 4.4 g/dL (3.5-5.0); Calcium 8.6 mg/dL (8.4-10.2); Magnesium 2.1 mg/dL (1.6-2.3); Potassium 4.8 mmol/L (3.5-5.1); Total Bilirubin 0.5 mg/dL (0.2-1.3); Total Protein 7.1 g/dL (6.3-8.2)
[2022-07-15] MEDS ORDERED: SODIUM CHLORIDE 0.9% 1,000 ML IV ONE (10:17)
[2022-07-15] MEDS: oxyCODONE-APAP 10-325MG 1 EACH TAB PO PRN ×2 (12:34→20:16)
[2022-07-15] MEDS ORDERED: FUROSEMIDE 10 MG/ML 4 ML VIAL IV STA (13:22)
[2022-07-15] MEDS: IPRATROPIUM-ALBUTEROL 3 ML NEB INHALATION SCH ×3 (14:23→23:30)
[2022-07-15] MEDS: BUDESONIDE 1 MG/2 ML NEBU INHALATION SCH ×2 (14:23→19:39)
--- NOTE | 2022-07-15 16:01 | P.HPIM ---
History of Present Illness H&P Date: 07/15/22 Chief Complaint: Short of breath This is a [address] Chavez. Chronic stable medical conditions include COPD, fibromyalgia, hypertension, osteoarthritis, chronic pancreatitis from alcoholism, peripheral neuropathy varicose veins, restless leg syndrome, BPH surgery, Alvarenga's esophagus and chronic low back pain from osteoarthritis. Alcohol cirrhosis. . Still smokes about a few cigarettes a day. cardioversion done for atrial fibrillation in March 2022. Patient underwent cardioversion yesterday by Dr. Stephanie Beck. Patient is feeling more short of breath last night. Slept in his lounge chair. Morning was wheezing more short of breath. Some cough. Edema. No chest pain. Also was reported to have a heart doctor down to the 40s initially in the triage. No fever no chills. Appetite fair. No change in bowel pattern. No chest pain. Review of systems: GEN.: Tired EYES: None HEENT: None NECK: None RESPIRATORY: As above CARDIOVASCULAR: As above GASTROINTESTINAL: None GENITOURINARY: None MUSCULOSKELETAL: Joint pains LYMPHATICS: None HEMATOLOGICAL: None PSYCHIATRY: None NEUROLOGICAL: None Past medical history to include: COPD, fibromyalgia, hypertension, osteoarthritis, chronic pancreatitis from alcoholism, peripheral neuropathy, varicose pains, restless leg syndrome, BPH with surgery, Alvarenga's esophagus, chronic low back pain from osteoarthritis, alcohol use disorder with cirrhosis, atrial fibrillation with ablation-went back into atrial fibrillation Social history: lives with his sister Ewelina. Smoked for close to 42 years. Now down to a few cigarettes a day.. Drinking alcohol for years. Stopped February 2022 Physical examination: VITAL SIGNS: 98.5, 40, 22, 135% he 5, 96% room air GENERAL: BMI 31. 2, sitting up in bed awake, some shortness of breath EYES: Pupils equal. Conjunctiva normal. HEENT: External appearance of nose and ears normal, oral cavity grossly normal. NECK: JVD raised; masses not palpable. HEART: Heart sounds irregular; significant edema. LUNGS: Respiratory rate increased; decreased breath sounds, prolonged expiration and wheezing ABDOMEN: Soft, distended, nontender, liver spleen not palpable, no masses palpable. divarification of recti . PSYCH: Alert and oriented x3; mood and affect anxiousl. MUSCULOSKELETAL:No Clubbing/cyanosis;muscles-grossly intact. evidence of OA NEUROLOGICAL: Cranial nerves grossly intact; no facial asymmetry, power and sensation grossly intact. LYMPHATICS: No lymph nodes palpable in the axilla and neck INVESTIGATIONS, reviewed in the clinical context: EKG tracing personally reviewed by me-normal sinus rhythm White count 8.7 hemoglobin 13.9 platelets 256 potassium 4.8 BUN 30 creatinine 1.47 Chest x-ray film personally reviewed by me-no obvious acute abnormality Previous studies: 04/12/2022: Creatinine 0.99 Abdominal ultrasound: Evidence of cirrhosis 2-D echocardiogram: Moderate concentric LVH. EF 35-40%. Right ventricular moderately enlarged. Assessment and plan: -Acute COPD exacerbation in an ex cigarette smoker DuoNeb every 4, Pulmicort 1 mg nebulizer twice a day, IV Solu-Medrol -Paroxysmal atrial flutter fibrillation a prior history of ablation and patient was cardioverted yesterday: Currently sinus rhythm Eliquis. Toprol-XL 75. Sotalol 80 mg twice a day. -chronic congestive heart failure exacerbation from systolic and diastolic dysfunction EF 45 % Aldactone 25 mg. Entresto - chronic pancreatitis from alcoholism: -Alcohol-induced cirrhosis: [id number] mg a day. Low-salt diet. -Chronic nicotine dependence, cigarette smoker Nicotine patch 7 -Chronic fibromyalgia Flexeril 10 mg 3 times a day -Essential hypertension Toprol-XL -Primary osteoarthritis, multiple joints bilaterally Pain medications as needed -Alcoholic peripheral neuropathy -restless leg syndrome Requip 4 mg daily at bedtime -Alvarenga's esophagus Protonix 40 mg a day -Full code DuoNeb every 4. Nebulized Pulmicort. IV site withdrawal. Resume home medications. 1 dose of IV Lasix. Home medications resumed. Cartilage consulted. Discussed with patient. Past Medical History Past Medical History: Atrial Fibrillation, Coronary Artery Disease (CAD), Heart Failure, COPD, Diabetes Mellitus, Eye Disorder, Fibromyalgia, Hypertension, Myocardial Infarction ([place]), Osteoarthritis (OA), Prostate Disorder, Vascular Disorder Additional Past Medical History / Comment(s): Chronic cough, hx pancreatitis, bilateral eye glaucoma, neuropathy bilateral feet, poor circulation to legs, varicose veins, RLS, hx BPH, colitis, gastritis, Alvarenga's esophagus, shingles in 2013 and states joint pain since, chronic low back pain, DDD. Last Myocardial Infarction Date:: 09/02/16 History of Any Multi-Drug Resistant Organisms: None Reported Past Surgical History: Appendectomy, Cardiac Ablation, Heart Catheterization, Joint Replacement, Orthopedic Surgery, Prostate Surgery Additional Past Surgical History / Comment(s): Right knee arthroscopy for torn meniscus, right knee replacement, EGD, colonoscopy, TURP. Past Anesthesia/Blood Transfusion Reactions: No Reported Reaction Additional Past Anesthesia/Blood Transfusion Reaction / Comment(s): no hx blood transfusion Past Psychological History: Anxiety, Depression Smoking Status: Current every day smoker Past Alcohol Use History: None Reported Past Drug Use History: None Reported - Past Family History Father Family Medical History: CVA/TIA, Hypertension Additional Family Medical History / Comment(s): Father at the age of 38yrs from HTN/CVA. He was an alcoholic. Mother Family Medical History: COPD, Diabetes Mellitus Additional Family Medical History / Comment(s): Mother of emphysema at the age of 74 yrs (2003), mom had hx of drinking and smoking. Medications and Allergies Home Medications Medication Instructions Recorded Confirmed Type Montelukast [Singulair] 10 mg PO DAILY@1200 01/12/18 07/15/22 History Omeprazole 20 mg PO DAILY@1200 02/08/20 07/15/22 History Latanoprost Ophth [Xalatan 0.005%] 1 drop BOTH EYES HS 11/08/21 07/15/22 History Tamsulosin [Flomax] 0.4 mg PO DAILY@1200 11/08/21 07/15/22 History rOPINIRole HCL [Requip] 4 mg PO HS@1800 11/08/21 07/15/22 History Cyclobenzaprine [Flexeril] 10 mg PO TID@0600,1200,1800 11/24/21 07/15/22 History Loratadine [Claritin] 10 mg PO DAILY@1200 11/24/21 07/15/22 History oxyCODONE-APAP 10-325MG [Percocet 1 tab PO Q8H PRN 11/24/21 07/15/22 History 10-325 mg] Budesonide-Formot 160-4.5 Mcg 2 puff INHALATION RT-BID 04/11/22 07/15/22 History [Symbicort 160-4.5 Mcg Inhaler] Empagliflozin [Jardiance] 10 mg PO DAILY@1200 04/11/22 07/15/22 History Apixaban [Eliquis] 5 mg PO BID@0600,1800 05/13/22 07/15/22 History Sacubitril/Valsartan [Entresto 24 1 tab PO BID@0600,1800 05/13/22 07/15/22 Histo ry mg-26 mg Tablet] Spironolactone [Aldactone] 25 mg PO DAILY@0600 05/13/22 07/15/22 History Sotalol [Betapace] 80 mg PO BID@0600,1800 #120 tab 05/16/22 07/15/22 Rx Albuterol Nebulized [Ventolin 2.5 mg INHALATION RT-TID PRN 07/15/22 07/15/22 History Nebulized] Metoprolol Succinate (ER) [Toprol 50 mg PO DAILY 07/15/22 07/15/22 History Xl] Naloxone HCl [Narcan] 4 mg NASAL ONCE PRN 07/15/22 07/15/22 History Allergies Allergy/AdvReac Type Severity Reaction Status Date / Time pregabalin [From Lyrica] Allergy Leg Verified 07/15/22 11:21 swelling amoxicillin trihydrate AdvReac Rapid Verified 07/15/22 11:21 [From Augmentin] Heart Rate potassium clavulanate AdvReac FELT LIKE Verified 07/15/22 11:21 [From Augmentin] HE WAS GOING TO PASS OUT FAST HEARTBEAT" Physical Exam Vitals: Vital Signs Temp Pulse Pulse Resp BP Pulse Ox 07/15/22 14:36 68 H 95/64 95 07/15/22 14:31 66 07/15/22 14:23 70 07/15/22 12:32 61 18 125/73 98 07/15/22 11:05 53 L 18 107/66 96 07/15/22 10:37 56 L 07/15/22 09:19 67 07/15/22 09:06 65 07/15/22 08:48 20 07/15/22 08:34 98.5 F 40 L 22 135/75 96 Intake and Output 07/15/22 07/15/22 07/15/22 06:59 14:59 22:59 Other: Weight 104.326 kg Results CBC & Chem 7: 07/15/22 09:00 07/15/22 09:00 Labs: Abnormal Lab Results - Last 24 Hours (Table) 07/15/22 07/15/22 Range/Units 09:00 09:00 RDW 16.0 H (11.5-15.5) % Sodium 135 L (137-145) mmol/L BUN 30 H (9-20) mg/dL Creatinine 1.47 H (0.66-1.25) mg/dL Glucose 105 H (74-99) mg/dL
[2022-07-15] MEDS: rOPINIRole HCL 4 MG TABLET PO SCH (18:20)
[2022-07-15] MEDS: SACUBITRIL/VALSARTAN 24 MG-26 MG TABLET PO SCH (18:20)
[2022-07-15] MEDS: APIXABAN 5 MG TAB PO SCH (18:20)
[2022-07-15] MEDS: SOTALOL 80 MG TAB PO SCH (18:20)
[2022-07-15] MEDS: CYCLOBENZAPRINE 10 MG TAB PO SCH (18:20)
[2022-07-15 19:57] LABS: Glucose,Whole Blood 130 mg/dL (70-110)
[2022-07-15] MEDS ORDERED: LATANOPROST 0.005% OPHTH DROPS 2.5 ML BTL BOTH EYES SCH (21:00)
[2022-07-16 03:09] VITALS: RESP 18
[2022-07-16] MEDS: IPRATROPIUM-ALBUTEROL 3 ML NEB INHALATION SCH ×3 (03:16→11:23)
[2022-07-16] MEDS: oxyCODONE-APAP 10-325MG 1 EACH TAB PO PRN ×2 (04:11→12:17)
[2022-07-16] MEDS ORDERED: SPIRONOLACTONE 25 MG TAB PO SCH (06:00)
[2022-07-16] MEDS: SACUBITRIL/VALSARTAN 24 MG-26 MG TABLET PO SCH ×2 (06:02→14:10)
[2022-07-16] MEDS: CYCLOBENZAPRINE 10 MG TAB PO SCH ×3 (06:02→14:10)
[2022-07-16] MEDS: APIXABAN 5 MG TAB PO SCH ×2 (06:02→14:10)
[2022-07-16] MEDS: SOTALOL 80 MG TAB PO SCH ×2 (06:02→14:10)
[2022-07-16 06:04] LABS: Glucose,Whole Blood 155 mg/dL (70-110)
[2022-07-16] MEDS: BUDESONIDE 1 MG/2 ML NEBU INHALATION SCH (08:04)
[2022-07-16 08:38] VITALS: BP 129/62; PULSE 75; TEMP 97.4
[2022-07-16] MEDS ORDERED: METOPROLOL SUCCINATE (ER) 50 MG TAB.ER.24H PO SCH (09:00)
[2022-07-16 11:51] LABS: Glucose,Whole Blood 140 mg/dL (70-110)
[2022-07-16] MEDS ORDERED: PANTOPRAZOLE 40 MG TABLET PO SCH (12:00)
[2022-07-16] MEDS ORDERED: LORATADINE 10 MG TAB PO SCH (12:00)
[2022-07-16] MEDS ORDERED: MONTELUKAST 10 MG TAB PO SCH (12:00)
[2022-07-16] MEDS ORDERED: DAPAGLIFLOZIN PROPANEDIOL 5 MG TABLET PO SCH (12:00)
[2022-07-16] MEDS ORDERED: TAMSULOSIN 0.4 MG CAP.ER.24H PO SCH (12:00)
[2022-07-16 13:44] LABS: African American GFR (CKD) >90 (>60 ml/min/1.73 sqM); Anion Gap 4 mmol/L; Blood Urea Nitrogen 27 mg/dL (9-20); Calcium 8.7 mg/dL (8.4-10.2); Carbon Dioxide 24 mmol/L (22-30); Chloride 106 mmol/L (98-107); Glucose 111 mg/dL (74-99); Non-African American GFR(CKD) 85 (>60 ml/min/1.73 sqM); Potassium 5.3 mmol/L (3.5-5.1); Sodium 134 mmol/L (137-145)
[2022-07-16] MEDS: rOPINIRole HCL 4 MG TABLET PO SCH (14:10)
--- NOTE | 2022-07-16 16:07 | P.DS ---
Providers Date of admission: 07/15/22 10:17 Expected date of discharge: 07/16/22 Attending physician: Jamal Tamayo Consults: 07/15/22 10:17 Consult Physician Urgent Consulting Provider: [facility] Consult Reason/Comments: Bradycardia, dyspnea Do you want consulting provider notified?: Yes Primary care physician: Albert Chavez [facility] Course: Chief Complaint: Short of breath This is a [address] Chavez. Chronic stable medical conditions include COPD, fibromyalgia, hypertension, osteoarthritis, chronic pancreatitis from alcoholism, peripheral neuropathy varicose veins, restless leg syndrome, BPH surgery, Alvarenga's esophagus and chronic low back pain from osteoarthritis. Alcohol cirrhosis. . Still smokes about a few cigarettes a day. cardioversion done for atrial fibrillation in March 2022. Patient underwent cardioversion yesterday by Dr. Stephanie Beck. Patient is feeling more short of breath last night. Slept in his lounge chair. Morning was wheezing more short of breath. Some cough. Edema. No chest pain. Also was reported to have a heart doctor down to the 40s initially in the triage. No fever no chills. Appetite fair. No change in bowel pattern. No chest pain. Admitted with COPD exacerbation. Put on bronchodilators, nebulized steroids. 16 July 2022: Patient breathing better. Up and about in the room. Eating well. Was seen by cardiology. Cleared for discharge. Patient advised against smoking. Past medical history to include: COPD, fibromyalgia, hypertension, osteoarthritis, chronic pancreatitis from alcoholism, peripheral neuropathy, varicose pains, restless leg syndrome, BPH with surgery, Alvarenga's esophagus, chronic low back pain from osteoarthritis, alcohol use disorder with cirrhosis, atrial fibrillation with ablation-went back into atrial fibrillation Social history: lives with his sister Ewelina. Smoked for close to 42 years. Now down to a few cigarettes a day.. Drinking alcohol for years. Stopped February 2022 Physical examination: VITAL SIGNS: 97.4, 75, 18, 129 with 62, 95% room air GENERAL: Laying in bed, awake, comfortable EYES: Pupils equal. Conjunctiva normal. HEENT: External appearance of nose and ears normal, oral cavity grossly normal. NECK: JVD raised; masses not palpable. HEART: Heart sounds irregular; significant edema. LUNGS: Respiratory rate normal; decreased breath sounds, ABDOMEN: Soft, distended, nontender, liver spleen not palpable, no masses palpable. divarification of recti . PSYCH: Alert and oriented x3; mood and affect anxiousl. MUSCULOSKELETAL:No Clubbing/cyanosis;muscles-grossly intact. evidence of OA NEUROLOGICAL: Cranial nerves grossly intact; no facial asymmetry, power and sensation grossly intact. LYMPHATICS: No lymph nodes palpable in the axilla and neck INVESTIGATIONS, reviewed in the clinical context: Tired July 2022: Creatinine 0.96 EKG tracing personally reviewed by me-normal sinus rhythm White count 8.7 hemoglobin 13.9 platelets 256 potassium 4.8 BUN 30 creatinine 1.47 Chest x-ray film personally reviewed by me-no obvious acute abnormality Previous studies: 04/12/2022: Creatinine 0.99 Abdominal ultrasound: Evidence of cirrhosis 2-D echocardiogram: Moderate concentric LVH. EF 35-40%. Right ventricular moderately enlarged. Assessment and plan: -Acute COPD exacerbation in an ex cigarette smoker: Better DuoNeb every 4, Pulmicort 1 mg nebulizer twice a day, IV Solu-Medrol -Paroxysmal atrial flutter fibrillation a prior history of ablation and patient was cardioverted yesterday: Currently sinus rhythm Eliquis. Toprol-XL 75. Sotalol 80 mg twice a day. -chronic congestive heart failure exacerbation from systolic and diastolic dysfunction EF 45 % Aldactone 25 mg. Entresto - chronic pancreatitis from alcoholism: -Alcohol-induced cirrhosis: [id number] mg a day. Low-salt diet. -Chronic nicotine dependence, cigarette smoker Nicotine patch 7 -Chronic fibromyalgia Flexeril 10 mg 3 times a day -Essential hypertension Toprol-XL -Primary osteoarthritis, multiple joints bilaterally Pain medications as needed -Alcoholic peripheral neuropathy -restless leg syndrome Requip 4 mg daily at bedtime -Alvarenga's esophagus Protonix 40 mg a day -Full code Disposition: Home Plan - Discharge Summary Discharge Rx Participant: No New Discharge Prescriptions: Continue Montelukast [Singulair] 10 mg PO DAILY@1200 Omeprazole 20 mg PO DAILY@1200 Latanoprost Ophth [Xalatan 0.005%] 1 drop BOTH EYES HS Tamsulosin [Flomax] 0.4 mg PO DAILY@1200 Cyclobenzaprine [Flexeril] 10 mg PO TID@0600,1200,1800 oxyCODONE-APAP 10-325MG [Percocet 10-325 mg] 1 tab PO Q8H PRN PRN Reason: Pain Empagliflozin [Jardiance] 10 mg PO DAILY@1200 Spironolactone [Aldactone] 25 mg PO DAILY@0600 Albuterol Nebulized [Ventolin Nebulized] 2.5 mg INHALATION RT-TID PRN PRN Reason: Shortness Of Breath Metoprolol Succinate (ER) [Toprol XL] 50 mg PO DAILY rOPINIRole HCL [Requip] 4 mg PO HS@1800 Loratadine [Claritin] 10 mg PO DAILY@1200 Budesonide-Formot 160-4.5 Mcg [Symbicort 160-4.5 Mcg Inhaler] 2 puff INHALATION RT-BID Sacubitril/Valsartan [Entresto 24 mg-26 mg Tablet] 1 tab PO BID@0600,1800 Apixaban [Eliquis] 5 mg PO BID@0600,1800 Sotalol [Betapace] 80 mg PO BID@0600,1800 #120 tab Naloxone HCl [Narcan] 4 mg NASAL ONCE PRN PRN Reason: overdose Discharge Medication List Montelukast [Singulair] 10 mg PO DAILY@1200 01/12/18 [History] Omeprazole 20 mg PO DAILY@1200 02/08/20 [History] Latanoprost Ophth [Xalatan 0.005%] 1 drop BOTH EYES HS 11/08/21 [History] Tamsulosin [Flomax] 0.4 mg PO DAILY@1200 11/08/21 [History] rOPINIRole HCL [Requip] 4 mg PO HS@1800 11/08/21 [History] Cyclobenzaprine [Flexeril] 10 mg PO TID@0600,1200,1800 11/24/21 [History] Loratadine [Claritin] 10 mg PO DAILY@119911/24/21 [History] oxyCODONE-APAP 10-325MG [Percocet 10-325 mg] 1 tab PO Q8H PRN 11/24/21 [History] Budesonide-Formot 160-4.5 Mcg [Symbicort 160-4.5 Mcg Inhaler] 2 puff INHALATION RT-BID 04/11/22 [History] Empagliflozin [Jardiance] 10 mg PO DAILY@1200 04/11/22 [History] Apixaban [Eliquis] 5 mg PO BID@0600,1800 05/13/22 [History] Sacubitril/Valsartan [Entresto 24 mg-26 mg Tablet] 1 tab PO BID@0600,1800 05/13/22 [History] Spironolactone [Aldactone] 25 mg PO DAILY@0605/13/22 [History] Sotalol [Betapace] 80 mg PO BID@0600,1800 #120 tab 05/16/22 [Rx] Albuterol Nebulized [Ventolin Nebulized] 2.5 mg INHALATION RT-TID PRN 07/15/22 [History] Metoprolol Succinate (ER) [Toprol XL] 50 mg PO DAILY 07/15/22 [History] Naloxone HCl [Narcan] 4 mg NASAL ONCE PRN 07/15/22 [History] Follow up Appointment(s)/Referral(s): Albert Chavez MD [Primary Care Provider] - 1-2 days (Please call Monday to make a post hospital follow up appointment) Hemal Avila MD [STAFF PHYSICIAN] - 10 Days (Please call Monday to make a post hospital follow up appointment) Patient Instructions/Handouts: Bradycardia (DC) Discharge Disposition: HOME SELF-CARE
--- NOTE | 2022-07-18 08:57 | CONS ---
CONSULTATION HISTORY OF PRESENT ILLNESS: This is a 62-year-old gentleman with history of atrial fibrillation, status post ablation who actually underwent MANN and cardioversion on 07/14/2022, presented to hospital the very next day with symptoms of shortness of breath and what he felt was bradycardia noted at home. His history is significant for hypertension, osteoarthritis, peripheral neuropathy, and alcoholism. At the time of my evaluation in the emergency room, the patient was actually comfortable at rest, was in sinus rhythm and did not have any bradyarrhythmias and did not seem to be in overt heart failure. His BNP was within normal limits. Hemoglobin was normal and BUN and creatinine were slightly elevated. PAST MEDICAL HISTORY: Significant for atrial flutter, status post ablation in May, COPD, and cardiomyopathy. MEDICATIONS AT HOME: 1. Eliquis 5 b.i.d. 2. Ventolin. 3. Betapace 80 b.i.d. 4. Flomax. 5. Aldactone. 6. Requip. 7. Percocet. 8. Narcan. 9. Singulair. 10.Toprol. 11.Claritin. 12.Jardiance. 13.Eliquis. ALLERGIES: As charted. FAMILY HISTORY: Negative for premature coronary artery disease. SOCIAL HISTORY: Negative for smoking, EtOH or drug abuse. REVIEW OF SYSTEMS: HEENT: Unremarkable. CARDIAC: As described above. RESPIRATORY: Negative. GI: Negative. GENITOURINARY: Negative. ALLERGY/IMMUNOLOGY: Negative. SKIN: Negative. MUSCULOSKELETAL: Negative. ENDOCRINE: Negative. DERM: Negative. CONSTITUTIONAL: Negative. PHYSICAL EXAMINATION: GENERAL: Comfortable at rest. VITAL SIGNS: Stable. NECK: There is no jugular venous distention. Carotid upstroke is normal. There is no bruit. CHEST: Reveals good air entry bilaterally. I do not hear any crackles or rhonchi. HEART: Reveals first and second heart sounds, no gallop. ABDOMEN: Soft. EXTREMITIES: Did not reveal any edema. Peripheral pulses are palpable. LABS: Have been reviewed. ASSESSMENT: 1. Bradycardia. 2. Atrial fibrillation, status post cardioversion. 3. Atrial flutter, status post ablation. 4. Chronic obstructive pulmonary disease. 5. Cardiomyopathy. 6. Chronic systolic heart failure. PLAN: The patient is doing well. We will watch him overnight and discharge him home tomorrow. MMODL / IJN: [id number] /
--- NOTE | 2022-07-18 08:57 | PN ---
PROGRESS NOTE SUBJECTIVE: This is a 62-year-old gentleman who presented to hospital yesterday after known bradycardia, fatigue, and tiredness. He has had a fairly uneventful night, doing well, and is free of symptoms this morning. OBJECTIVE: GENERAL: Comfortable at rest. VITAL SIGNS: Stable. CHEST: Reveals good air entry bilaterally. HEART: Reveals first and second heart sounds. No gallop. EXTREMITIES: Did not reveal any edema. ASSESSMENT AND PLAN: 1. Persistent atrial fibrillation, status post recent cardioversion. 2. Bradycardia, resolved. 3. Cardiomyopathy with chronic systolic heart failure. 4. Chronic obstructive pulmonary disease. MMODL / IJN: [id number] /
== END 2022-07-16 14:03 | disposition home or self-care (01) | DRG 190 ==
LOC: EC 08:32 → 3SCARD 10:17
PROVIDERS: ADMIT Hospitalist; ATTEND Hospitalist
DX: J44.1 Chronic obstructive pulmonary disease with (acute) exacerbation (principal); I50.43 Acute on chronic combined systolic (congestive) and diastolic (congestive) heart failure; I42.9 Cardiomyopathy, unspecified; I48.19 Other persistent atrial fibrillation; I48.92 Unspecified atrial flutter; K86.0 Alcohol-induced chronic pancreatitis; G62.1 Alcoholic polyneuropathy; K70.30 Alcoholic cirrhosis of liver without ascites; I11.0 Hypertensive heart disease with heart failure; E11.9 Type 2 diabetes mellitus without complications; G25.81 Restless legs syndrome; F10.20 Alcohol dependence, uncomplicated; F17.210 Nicotine dependence, cigarettes, uncomplicated; M15.9 Polyosteoarthritis, unspecified; M79.7 Fibromyalgia; I25.10 Atherosclerotic heart disease of native coronary artery without angina pectoris; G89.29 Other chronic pain; N40.0 Benign prostatic hyperplasia without lower urinary tract symptoms; R05.3 Chronic cough; M47.816 Spondylosis without myelopathy or radiculopathy, lumbar region; K22.70 Barrett's esophagus without dysplasia; Z96.651 Presence of right artificial knee joint; I25.2 Old myocardial infarction; Z79.899 Other long term (current) drug therapy; Z79.51 Long term (current) use of inhaled steroids; Z79.84 Long term (current) use of oral hypoglycemic drugs; Z79.01 Long term (current) use of anticoagulants; Z88.8 Allergy status to other drugs, medicaments and biological substances; Z88.0 Allergy status to penicillin
CPT/HCPCS: 36415; 71046; 80048; 80053; 83605; 83735; 83880; 84484; 85025; 85610; 85730; 93005; 94640; 94760; 96374; 99285

== ENCOUNTER 2022-07-25 07:50 | Day surgery (SDC) | payer OTHER ==
[2022-07-25] MEDS ORDERED: SODIUM CHLORIDE 0.9% 500 ML 500 ML IV ONE (07:56)
[2022-07-25 08:50] VITALS: RESP 16; TEMP 97.2
[2022-07-25] MEDS ORDERED: fentaNYL (PF) 50 MCG/ML 2 ML AMP ONE (09:02)
[2022-07-25 09:09] LABS: Glucose,Whole Blood 100 mg/dL (70-110)
[2022-07-25] MEDS ORDERED: BENZOCAINE SPRAY 1 CAN MUCOUS MEM ONE (09:35)
[2022-07-25] MEDS ORDERED: fentaNYL (PF) 50 MCG/ML 2 ML AMP IV ONE (09:35)
[2022-07-25] MEDS ORDERED: MIDAZOLAM 2 MG/2 ML VIAL IV ONE (09:35)
[2022-07-25 15:24] VITALS: BP 145/70; PULSE 58
--- NOTE | 2022-07-26 06:49 | ECHOT ---
TRANSESOPHAGEAL ECHOCARDIOGRAM INDICATION: To rule out intracardiac thrombus for an EP procedure and ablation. PROCEDURE NOTE: After obtaining informed consent, transesophageal echocardiogram was performed in left lateral position using an Omniplane probe. Local and IV sedation were obtained with Versed, fentanyl, and Xylocaine spray. The patient tolerated the procedure well without any obvious immediate complications. The patient received moderate conscious sedation. Total sedation time was 10 minutes. FINDINGS: 1. There is no intracardiac thrombus within the left atrial appendage, left atrium, right atrium, right ventricle. 2. Left ventricle has normal size and systolic function. 3. Left atrium appears mildly enlarged. 4. There is mild mitral regurgitation noted. 5. There is moderate aortic regurgitation noted. 6. There is no evidence of [id number] shunt by color-flow Doppler. 7. Aortic root appears mildly dilated. CONCLUSIONS: No intracardiac thrombus. PLAN: The patient will proceed with the planned EP procedure. MMODL / IJN: [id number] /
== END 2022-07-25 10:55 | disposition home or self-care (01) ==
LOC: CATHCVL 07:50
PROVIDERS: ATTEND Internal Medicine Cardiovascular Disease
DX: I48.19 Other persistent atrial fibrillation (principal); I08.0 Rheumatic disorders of both mitral and aortic valves; I10 Essential (primary) hypertension; F17.210 Nicotine dependence, cigarettes, uncomplicated; I48.92 Unspecified atrial flutter; Z98.890 Other specified postprocedural states; I42.8 Other cardiomyopathies; Z79.01 Long term (current) use of anticoagulants; Z79.02 Long term (current) use of antithrombotics/antiplatelets; Z79.83 Long term (current) use of bisphosphonates; Z79.51 Long term (current) use of inhaled steroids; Z79.891 Long term (current) use of opiate analgesic; Z79.899 Other long term (current) drug therapy; Z88.0 Allergy status to penicillin; Z88.8 Allergy status to other drugs, medicaments and biological substances
CPT/HCPCS: 93312; 93320; 93325; J2250; J3010

== ENCOUNTER 2022-07-28 06:38 | Day surgery (SDC) | payer OTHER ==
[2022-07-26 08:29] VITALS: BMI 31.7
[~2022-07-28 06:38] MED LIST changes: +LACTATED RINGERS 1,000 ML IV SCH
[2022-07-28] MEDS ORDERED: HEPARIN SODIUM,PORCINE 10,000 UNIT/ML 1 ML VIAL ONE (08:00)
[2022-07-28] MEDS ORDERED: ATROPINE SULFATE 0.4 MG/ML 1 ML VIAL ONE (08:00)
[2022-07-28] MEDS ORDERED: PROPOFOL 10 MG/ML 20 ML VIAL IV ONE (08:00)
[2022-07-28] MEDS ORDERED: LIDOCAINE 2% INJ 20 MG/ML (2 ML VIAL) ONE (08:00)
[2022-07-28] MEDS ORDERED: FUROSEMIDE 10 MG/ML 2 ML VIAL ONE (08:00)
[2022-07-28] MEDS ORDERED: fentaNYL (PF) 50 MCG/ML 2 ML AMP ONE (08:00)
[2022-07-28] MEDS ORDERED: ISOPROTERENOL 250 MCG/1.25 ML SYR IV ONE ×2 (08:00→10:50)
[2022-07-28] MEDS ORDERED: HYDROmorphone (PF) 1 MG/ML ONE (08:00)
[2022-07-28] MEDS ORDERED: MIDAZOLAM 2 MG/2 ML VIAL ONE (08:00)
[2022-07-28] MEDS ORDERED: WATER FOR INJECTION, STERILE 10 ML VIAL IV ONE (08:00)
[2022-07-28] MEDS ORDERED: ePHEDrine 50 MG/ML 1 ML VIAL ONE (08:00)
[2022-07-28] MEDS ORDERED: SUCCINYLCHOLINE CHLORIDE 200 MG/10 ML VIAL IV ONE (08:00)
[2022-07-28] MEDS ORDERED: PHENYLEPHRINE-0.9% NACL SYG 1,000 MCG/10 ML SYRINGE ONE (08:00)
[2022-07-28] MEDS ORDERED: HEPARIN SOD,PORK IN 0.45% NACL 25,000 UNIT in 0.45% NACL 1 250ML.BAG IV ONE (08:21)
[2022-07-28] MEDS ORDERED: LIDOCAINE 1% INJ 10MG/ML (30 ML VIAL-PF) SQ ONE (08:45)
[2022-07-28] MEDS ORDERED: LACTATED RINGERS 1,000 ML IV ONE (10:30)
[2022-07-28] MEDS ORDERED: HEPARIN SODIUM (1,000 UNIT/ML) 1,000 UNIT in SODIUM CHLORIDE 0.9% 1,000 ML IRRIGATION ONE (11:28)
[2022-07-28] MEDS ORDERED: ACETAMINOPHEN IV (For NPO) 1,000 MG in EMPTY BAG 1 BAG IVPB ONE (13:20)
[2022-07-28] MEDS ORDERED: ACETAMINOPHEN TAB 325 MG TAB PO PRN (13:20)
--- NOTE | 2022-07-28 13:28 | P.HPCAR ---
History of Present Illness This is Dr. Ann dictating an H/P on this patient The patient was interviewed and examined IMPRESSION / ASSESSMENT: Symptomatic A. fib with RVR History of atrial flutter ablation, successful Shortness of breath with very minimal exertion Refractory to enter the drug therapy Past history of cardio myopathy with improvement in function after atrial flutter ablation Normal TSH Patient has stopped consuming alcohol in the last 6 months PLAN: A. fib ablation and assessment for any atrial tachycardia He has a rapid atrial tachycardia that may be in the roof of the left atrium Detailed EP study thereafter HPI Patient continues to be very short of breath at rest and with minimal exertion He is unable to walk and remains in atrial fibrillation He has a history of atrial flutter and he underwent successful ablation for that but shortly thereafter he went into in atrial fibrillation/rapid atrial tachycardia Evaluation of the 12-lead EKG suggests a possible left atrium roof atrial tachycardia The patient has a little bit of a cough No fever chills ROS: No fever chills or rigors, no cough, phlegm or expectoration, no nausea, vomiting or diarrhea, no hematuria, dysuria, no musculoskeletal complaints, no strokes or seizures, no skin lesions. EXAMINATION: 130 6. His mercury pulse rate 120 beats a minute at rest afebrile Breath sounds are reduced bilaterally no crackles Heart sounds S1 and S2 are irregular and tachycardic Abdomen is soft No JVD No lower extremity edema REVIEW OF LABS, ECG & MEDICAL DATA Potassium 4.5 Physical Exam Vitals: Vital Signs Pulse Pulse Resp BP Pulse Ox 07/28/22 12:00 76 18 113/56 98 07/28/22 07:06 118 H 18 125/78 97 Intake and Output 07/27/22 07/28/22 07/28/22 22:59 06:59 14:59 Intake Total 1277 Output Total 150 Balance 1127 Intake: IV 1277 Output: Urine 150 Other: Weight 107.2 kg Past Medical History Past Medical History: Atrial Fibrillation, Coronary Artery Disease (CAD), Heart Failure, COPD, Diabetes Mellitus, Eye Disorder, Fibromyalgia, Hypertension, Myocardial Infarction (IA), Osteoarthritis (OA), Prostate Disorder, Vascular Disorder Additional Past Medical History / Comment(s): Chronic cough, hx pancreatitis, bilateral eye glaucoma, neuropathy bilateral feet, poor circulation to legs, varicose veins, RLS, hx BPH, colitis, gastritis, Alvarenga's esophagus, shingles in 2012 and states joint pain since, chronic low back pain, DDD. Last Myocardial Infarction Date:: 09/02/16 History of Any Multi-Drug Resistant Organisms: None Reported Past Surgical History: Appendectomy, Cardiac Ablation, Heart Catheterization, Joint Replacement, Orthopedic Surgery, Prostate Surgery Additional Past Surgical History / Comment(s): Right knee arthroscopy for torn meniscus, right knee replacement, EGD, colonoscopy, TURP. cardioversion 07/14-successful, MANN Past Anesthesia/Blood Transfusion Reactions: No Reported Reaction Additional Past Anesthesia/Blood Transfusion Reaction / Comment(s): no hx blood transfusion Smoking Status: Current every day smoker - Past Family History Father Family Medical History: CVA/TIA, Hypertension Additional Family Medical History / Comment(s): Father at the age of 38yrs from HTN/CVA. He was an alcoholic. Mother Family Medical History: COPD, Diabetes Mellitus Additional Family Medical History / Comment(s): Mother of emphysema at the age of 74 yrs (2003), mom had hx of drinking and smoking. Physical Examination Vital Signs Pulse Pulse Resp BP Pulse Ox 07/28/22 12:00 76 18 113/56 98 07/28/22 07:06 118 H 18 125/78 97 Intake and Output 07/27/22 07/28/22 07/28/22 22:59 06:59 14:59 Intake Total 1277 Output Total 150 Balance 1127 Intake: IV 1277 Output: Urine 150 Other: Weight 107.2 kg Results 07/28/22 06:45 Comprehensive Metabolic Panel 07/28/22 Range/Units 06:45 Potassium 4.5 (3.5-5.1) mmol/L Current Medications Generic Name Dose Route Start Last Admin Trade Name Freq PRN Reason Stop Dose Admin Acetaminophen 650 mg 07/28/22 13:20 Acetaminophen Tab 325 Mg Tab PO 08/27/22 13:21 Q6HR PRN Mild Pain (Scale 1 to 3) Apixaban 5 mg 07/28/22 18:00 Apixaban 5 Mg Tab PO 08/27/22 18:01 BID@0600,1800 [facility] Protocol Budesonide/Formoterol Fumarate 2 puff 07/28/22 20:00 Symbicort 160-4.5 Mcg Inhaler INHALATION 08/27/22 20:01 RT-BID [facility] Acetaminophen 1,000 mg/ IV 100 mls @ 400 mls/hr 07/28/22 13:20 Solution IVPB 07/28/22 13:34 ONCE ONE Latanoprost 1 drops 07/28/22 21:00 Latanoprost 0.005% Ophth Drops 2.5 Ml Btl BOTH EYES 08/27/22 21:01 [facility] Loratadine 10 mg 07/29/22 12:00 Loratadine 10 Mg Tab PO 08/28/22 12:01 DAILY@1200 [facility] Metoprolol Succinate 25 mg 07/29/22 09:00 Metoprolol Succinate (Er) 50 Mg Tab.Er.24h PO 08/28/22 09:01 DAILY [facility] Montelukast Sodium 10 mg 07/29/22 12:00 Montelukast 10 Mg Tab PO 08/28/22 12:01 DAILY@1200 [facility] Non-Formulary Medication 10 mg 07/29/22 12:00 Empagliflozin [Jardiance] PO 08/28/22 12:01 DAILY@1200 [facility] Non-Formulary Medication 20 mg 07/29/22 12:00 Omeprazole [Omeprazole] PO 08/28/22 12:01 DAILY@1200 [facility] Sacubitril/Valsartan 1 each 07/28/22 18:00 Sacubitril/Valsartan 24 Mg-26 Mg Tablet PO 08/27/22 18:01 BID@0600,1800 [facility] Sodium Chloride 12 ml 07/28/22 13:20 Sodium Chloride 0.9% Flush 10 Ml Syringe IV 08/27/22 13:21 Q12HR PRN Line Flush Spironolactone 25 mg 07/29/22 06:00 Spironolactone 25 Mg Tab PO 08/28/22 06:01 DAILY@0600 [facility] Tamsulosin HCl 0.4 mg 07/29/22 12:00 Tamsulosin 0.4 Mg Cap.Er.24h PO 08/28/22 12:01 DAILY@1200 [facility] Intake and Output 07/27/22 07/28/22 07/28/22 22:59 06:59 14:59 Intake Total 1277 Output Total 150 Balance 1127 Intake: IV 1277 Output: Urine 150 Other: Weight 107.2 kg Patient Weight 07/29/22 06:59 Weight 107.2 kg 07/28/22 06:45
--- NOTE | 2022-07-28 13:38 | P.EPPROC ---
- EP Procedure Note Electrophysiology Procedure Note: PROCEDURE A. fib ablation DIAGNOSIS Persistent Atrial fibrillation, symptomatic, refractory to therapy with sotalol Rapid atrial signals cycle length of 250 ms RESULT No left atrial appendage mass seen on intracardiac echo Mild thickening of the pericardium at the base of the left ventricle without pericardial effusion Normal LV size and function Successful termination of a rapid atrial tachycardia at the roof of the left atrium chest outside the left superior pulmonary vein Successful linear ablation in the left atrial roof, from L SPV to RSPV Successful A. fib ablation/pulmonary vein isolation of all veins using cryo- ablation Complete entrance block in all 4 veins confirmed No evidence for phrenic nerve injury Low voltage linear area/Electrical scar noted in the anterior LA wall from the L SPV down to the mitral annulus without any history of prior ablation Esophageal deflection YES, left-sided esophagus No inducible atrial fibrillation thereafter PROCEDURE DETAILS Patient was brought to the EP lab in a fasting state after obtaining written informed consent. Procedure performed under general anesthesia Esophagus was intubated. Esophageal temperature monitoring with circa catheter. Esophageal deflection with an endoscope to avoid hypothermia of the esophagus. After initial muscle relaxant use, muscle relaxants were not given thereafter in order to assess phrenic nerve during procedure. Patient prepped and draped as per protocol Cryo ablation-set up with standard preparation of the cryoablation tools done. Femoral Venous access obtained on the right and left groins and sheaths placed Diagnostic catheters for the high right atrium, phrenic nerve stimulation and pacing, His bundle, coronary sinus placed Intracardiac echo catheter placed. Long sheath placed in the right atrium Left and right transseptal catheterization performed under intracardiac echo guidance. Intravenous heparin with aCT above 300 Later, catheter positioning and balloon positioning in the left atrium and pulmonary veins, under intracardiac echo guidance Diagnostic EP study with coronary sinus pacing and recording Baseline measurements: Patient was in a rapid atrial tachycardia/atrial fibrillation, with a cycle length of 250 ms QRS 99 ms QT 403 ms Once the atrial tachycardia terminated there was a long postconversion pause requiring 6 atrial pacing Subsequently his sinus cycle length was 757 ms and VT interval 120 ms AH 60 ms and HV 41 ms Following complete ablation burst stimulation was performed from the high right atrium and the [place] sinus Extra stimulation after double extrastimuli performed No inducible atrial fibrillation on and off Isuprel Transseptal catheterization performed RA pressure 18/12/50 LA pressure 28/14/21 Transseptal catheterization performed with standard sheath. The cryoablation sheath was then placed with an over the wire exchange without any acute complications. Termination of rapid atrial tachycardia occurred outside the [3 pulmonary vein The first carinal lesion result in termination of the tachycardia This was followed by a very long postconversion pause that required atrial pacing for 30 seconds or so Subsequently cryoablation of the pulmonary veins was performed Subsequently linear ablation was performed in the left atrial roof A complete line of block was made Complete isolation of all 4 pulmonary veins was documented The cryoablation balloon was placed in the office of each pulmonary vein and all 4 pulmonary veins were isolated. IV dye was injected to confirm occlusion. Goal: achieve complete occlusion of the pulmonary vein, achieve -30 degrees C at 30 seconds and achieve -40 degrees C at 60 seconds and a time to effect of less than 60 seconds. If not, the balloon was repositioned to obtain this result After completion of Cryoblation with durations from 180-240 seconds, entrance block was confirmed with the Attain circular catheter in a roving fashion around the antrum of the pulmonary veins Phrenic nerve pacing was performed from the SVC, right innominate vein area and diaphragm voltage was monitored. Diaphragmatic contractions were also monitored manually for strength of contraction. At the end of the procedure the Achieve catheter was once again used to check for entrance block Phrenic nerve stimulation was performed to confirm diaphragmatic stimulation the end of the procedure Cine fluoroscopy was performed at the very end of the procedure to confirm movement of both diaphragms with inspiration and expiration This is a long procedure the right superior pulmonary vein was difficult to isolate despite good contact and occlusion of the right superior pulmonary vein with a 3 minute cryoablation lesion with good cry of parameters Complex anatomy of the right sided veins with multiple tributaries in the right superior as well as in the right inferior Multiple branches of the right inferior vein were occluded and isolated to achieve complete antral isolation The left inferior pulmonary vein was also selectively isolated to ablate the carinal region in between the 2 veins At the end of the procedure the patient was extubated Venous sheaths were removed and hemostasis assured with a closure device PROCEDURES PERFORMED Diagnostic EP study CS pacing and recording Left and right transseptal catheterization Catheter the mapping of the tachycardia Intracardiac echocardiography Ablation of a discrete arrhythmia focus, [id number] Pulmonary vein isolation with transseptal and comprehensive EPS, [id number] Drug infusion, +[id number] Left atrial roof line, +[id number]
--- NOTE | 2022-07-28 13:41 | P.PRLE ---
RE: Torsten Herrera Dear Dr. Kathy Herrera is undergone an atrial flutter ablation previously. Following that in sinus rhythm his LV function recovered He stopped alcohol consumption and was compliant with his medications However he went into in atrial fibrillation/a very rapid atrial tachycardia which could not be rate controlled He was very symptomatic from this Today I performed successful ablation of the rapid atrial tachycardia/A. fib just outside the left superior pulmonary vein at its roof Subsequently a complete if ablation was performed Thereafter he could not induce any atrial fibrillation despite a detailed atrial stim protocol with and without Isuprel Hopefully he maintains sinus rhythm prolonged period of time I emphasized the need to abstain from alcohol consumption completely He did have a mildly thickened pericardium at the base of the left ventricle and he may have had mild pericarditis in the past He did have a cardio myopathy in the past but this seems to have recovered based on the intracardiac echo imaging He will continue ELIQUIS I have stopped sotalol I reduced the dose of metoprolol succinate to 25 mg by mouth daily He will continue all his other cardiac medications as before Thank you for entrusting me with the care of the patient Warm regards Sincerely Quirino Ann
[2022-07-28] MEDS: oxyCODONE-APAP 10-325MG 1 EACH TAB PO PRN ×2 (14:54→22:36)
[2022-07-28] MEDS: APIXABAN 5 MG TAB PO SCH (17:49)
[2022-07-28] MEDS: SYMBICORT 160-4.5 MCG INHALER INHALATION SCH (20:27)
[2022-07-28] MEDS ORDERED: LATANOPROST 0.005% OPHTH DROPS 2.5 ML BTL BOTH EYES SCH (21:00)
[2022-07-28] MEDS: SACUBITRIL/VALSARTAN 24 MG-26 MG TABLET PO SCH (21:05)
[2022-07-28] MEDS ORDERED: ALBUTEROL NEBULIZED 2.5 MG/3 ML INHALATION PRN (22:58)
[2022-07-28] MEDS ORDERED: rOPINIRole HCL 4 MG TABLET PO SCH (22:59)
[2022-07-28] MEDS: CYCLOBENZAPRINE 10 MG TAB PO SCH (23:15)
[2022-07-29] MEDS: APIXABAN 5 MG TAB PO SCH (05:39)
[2022-07-29] MEDS: SACUBITRIL/VALSARTAN 24 MG-26 MG TABLET PO SCH (05:39)
[2022-07-29] MEDS ORDERED: SPIRONOLACTONE 25 MG TAB PO SCH (06:00)
--- NOTE | 2022-07-29 08:01 | P.DS ---
Providers Attending physician: Quirino Ann Primary care physician: [facility] Course: Patient is doing well postprocedure Mild sore throat No chest discomfort no cough no shortness of breath Looks comfortable On examination no JVD Normal blood pressure Normal heart rates in the 80s sinus mechanism Twelve-lead EKG shows sinus mechanism with normal cardiac intervals Level lungs no rhonchi no crackles Normal heart sounds normal S1 normal S2 no murmurs no S3 gallop No lower extremity edema Groins of healed well sutures have been removed Impression Persistent atrial fibrillation Focus of atrial fibrillation outside the left-sided pulmonary vein at its roof Termination with ablation Thereafter a complete PVI was performed as well as left atrial roof line Incidental low voltage scar noted in the anterior LA from the LSB V down to the mitral annulus without any prior history of ablation in that area Atrial fibrillation was noninducible after successful ablation History of cardio myopathy, improved on medical treatment and abstinence of alcohol use Plan Stop sotalol Reduce metoprolol to 25 mg by mouth daily, long-acting Continue ELIQUIS Do not stop ELIQUIS for the next 3 months for any minor surgery Lifelong anticoagulation Complete abstinence from alcohol and then continue heart failure medications Follow-up with Dr. Beck Plan - Discharge Summary Discharge Rx Participant: Yes New Discharge Prescriptions: New RX: Metoprolol Succinate (ER) [Toprol XL] 25 mg PO DAILY #90 tab Discontinued RX: Metoprolol Succinate (ER) [Toprol XL] 50 mg PO DAILY RX: Sotalol [Betapace] 80 mg PO BID@0600,1800 #120 tab No Action RX: Montelukast [Singulair] 10 mg PO DAILY@1200 RX: Omeprazole 20 mg PO DAILY@1200 RX: Latanoprost Ophth [Xalatan 0.005%] 1 drop BOTH EYES HS RX: Tamsulosin [Flomax] 0.4 mg PO DAILY@1200 RX: Cyclobenzaprine [Flexeril] 10 mg PO TID@0600,1200,1800 RX: oxyCODONE-APAP 10-325MG [Percocet 10-325 mg] 1 tab PO Q8H PRN PRN Reason: Pain RX: Empagliflozin [Jardiance] 10 mg PO DAILY@1200 RX: Spironolactone [Aldactone] 25 mg PO DAILY@0600 RX: Albuterol Nebulized [Ventolin Nebulized] 2.5 mg INHALATION RT-TID PRN PRN Reason: Shortness Of Breath RX: rOPINIRole HCL [Requip] 4 mg PO HS@1800 RX: Loratadine [Claritin] 10 mg PO DAILY@1200 RX: Budesonide-Formot 160-4.5 Mcg [Symbicort 160-4.5 Mcg Inhaler] 2 puff INHALATION RT-BID RX: Sacubitril/Valsartan [Entresto 24 mg-26 mg Tablet] 1 tab PO BID@0600,1800 RX: Apixaban [Eliquis] 5 mg PO BID@0600,1800 RX: Naloxone HCl [Narcan] 4 mg NASAL ONCE PRN PRN Reason: overdose Discharge Medication List RX: Montelukast [Singulair] 10 mg PO DAILY@1200 01/12/18 [History] RX: Omeprazole 20 mg PO DAILY@1200 02/08/20 [History] RX: Latanoprost Ophth [Xalatan 0.005%] 1 drop BOTH EYES HS 11/08/21 [History] RX: Tamsulosin [Flomax] 0.4 mg PO DAILY@1200 11/08/21 [History] RX: rOPINIRole HCL [Requip] 4 mg PO HS@1800 11/08/21 [History] RX: Cyclobenzaprine [Flexeril] 10 mg PO TID@0600,1200,1800 11/24/21 [History] RX: Loratadine [Claritin] 10 mg PO DAILY@1200 11/24/21 [History] RX: oxyCODONE-APAP 10-325MG [Percocet 10-325 mg] 1 tab PO Q8H PRN 11/24/21 [History] RX: Budesonide-Formot 160-4.5 Mcg [Symbicort 160-4.5 Mcg Inhaler] 2 puff INHALATION RT-BID 04/11/22 [History] RX: Empagliflozin [Jardiance] 10 mg PO DAILY@1200 04/11/22 [History] RX: Apixaban [Eliquis] 5 mg PO BID@0600,1800 05/13/22 [History] RX: Sacubitril/Valsartan [Entresto 24 mg-26 mg Tablet] 1 tab PO BID@0600,1800 05/13/22 [History] RX: Spironolactone [Aldactone] 25 mg PO DAILY@0600 05/13/22 [History] RX: Albuterol Nebulized [Ventolin Nebulized] 2.5 mg INHALATION RT-TID PRN 07/15/22 [History] RX: Naloxone HCl [Narcan] 4 mg NASAL ONCE PRN 07/15/22 [History] RX: Metoprolol Succinate (ER) [Toprol XL] 25 mg PO DAILY #90 tab 07/28/22 [Rx] Follow up Appointment(s)/Referral(s): Hemal Avila MD [STAFF PHYSICIAN] - 1 Week Activity/Diet/Wound Care/Special Instructions: Post EP study - Ablation instructions 1. Keep access sites dry for 2 days. 2. No heavy lifting or straining for 2 days. 3. Avoid bending the hips repeatedly for 2 days. 4. You may go up and down stairs slowly Call if the following is noted 1. Bleeding, increasing swelling or pain at the access sites. 2. Increasing chest discomfort, especially upon taking a deep breath. 3. Increasing shortness of breath, at rest or with exertion. 4. Undue cough / phlegm 5. Difficulty or pain while swallowing. 6. Pain or change in color in the extremities. 7. Fever, chills, rigors. 8. Increasing headache or neurologic symptoms. 9. Dizziness, fainting, palpitations Stop sotalol Reduce metoprolol succinate to 25 mg daily Continue ELIQUIS Continue all other cardiac medications Follow-up with Dr. Beck in a week Discharge Disposition: HOME SELF-CARE
[2022-07-29] MEDS: CYCLOBENZAPRINE 10 MG TAB PO SCH (08:05)
[2022-07-29] MEDS: SYMBICORT 160-4.5 MCG INHALER INHALATION SCH (08:39)
[2022-07-29] MEDS ORDERED: METOPROLOL SUCCINATE (ER) 25 MG TAB.ER.24H PO SCH (09:00)
[2022-07-29 09:02] VITALS: BP 132/76; PULSE 87; RESP 16; TEMP 98.4
[2022-07-29] MEDS ORDERED: TAMSULOSIN 0.4 MG CAP.ER.24H PO SCH (12:00)
[2022-07-29] MEDS ORDERED: PANTOPRAZOLE 40 MG TABLET PO SCH (12:00)
[2022-07-29] MEDS ORDERED: MONTELUKAST 10 MG TAB PO SCH (12:00)
[2022-07-29] MEDS ORDERED: LORATADINE 10 MG TAB PO SCH (12:00)
[2022-07-29] MEDS ORDERED: DAPAGLIFLOZIN PROPANEDIOL 5 MG TABLET PO SCH (12:00)
== END 2022-07-29 11:08 | disposition home or self-care (01) ==
LOC: CATHEP 06:38 → 6NMEDSUR 11:32 → CATHEP 07-29 11:08
PROVIDERS: ATTEND Internal Medicine Clinical Cardiac Electrophysiology
DX: I48.19 Other persistent atrial fibrillation (principal); I47.1 Supraventricular tachycardia; I25.10 Atherosclerotic heart disease of native coronary artery without angina pectoris; J44.9 Chronic obstructive pulmonary disease, unspecified; Z90.79 Acquired absence of other genital organ(s); E11.9 Type 2 diabetes mellitus without complications; M19.90 Unspecified osteoarthritis, unspecified site; I25.2 Old myocardial infarction; Z87.19 Personal history of other diseases of the digestive system; Z90.89 Acquired absence of other organs; Z96.651 Presence of right artificial knee joint; Z98.890 Other specified postprocedural states; Z82.49 Family history of ischemic heart disease and other diseases of the circulatory system; Z83.3 Family history of diabetes mellitus; Z79.51 Long term (current) use of inhaled steroids; Z79.899 Other long term (current) drug therapy
CPT/HCPCS: 94640; 93662; 93656; 93657; 84132; C1894 ×2; C1769 ×4; C1760; C1730 ×2; C1759; C1893; C1733; C1766; J2001; J1644 ×2

== ENCOUNTER → 2022-08-05 | Outpatient (CLI) | payer OTHER ==
[2022-08-05 11:50] LABS: Appearance,Urine Clear (Clear); Bilirubin,Urine Negative (Negative); Blood,Urine Negative (Negative); Color,Urine Light Yellow; Glucose,Urine (UA) 4+ (Negative); Ketones,Urine Negative (Negative); Leukocyte Esterase,Urine Negative (Negative); Nitrite,Urine Negative (Negative); Protein,Urine Negative (Negative); Specific Gravity,Urine 1.009 (1.001-1.035)
[2022-08-05 12:10] LABS: Creatinine,Urine Random 62.8 mg/dL; Protein/Creatinine Ratio,Urine 0.35
[2022-08-05 19:30] LABS: Urine Creatinine 58.8 mg/dL (39.0-259.0)
== END | disposition home or self-care (01) ==
LOC: LABWHC1 10:46
PROVIDERS: ATTEND Nurse Practitioner Acute Care
DX: N18.2 Chronic kidney disease, stage 2 (mild) (principal); R80.9 Proteinuria, unspecified
CPT/HCPCS: 81003; 82043; 82570; 84156

== ENCOUNTER 2022-11-10 12:43 | Emergency (ER) | payer OTHER ==
[2022-11-10 12:54] VITALS: BP 170/96; PULSE 100; RESP 18; TEMP 97.9
--- NOTE | 2022-11-10 13:34 | ED ---
General Adult HPI - General Chief complaint: Extremity Injury, Lower Stated complaint: Feet swelling Time Seen by Provider: 11/10/22 13:20 Source: patient, RN notes reviewed, old records reviewed Mode of arrival: ambulatory Limitations: no limitations - History of Present Illness Initial comments: This is a 62-year-old male who presents emergency department stating that he's noticed a little increased swelling to his legs so he increased his Aldactone today. But then he looked down at his foot and there was some redness on his foot he didn't know why he was bleeding slightly came to the emergency department. Patient told me that the redness was under his skin and he was unable to wipe it off. Patient denies any pain patient denies any trauma patient denies any other complaints at this time. - Related Data Home Medications Medication Instructions Recorded Confirmed Montelukast [Singulair] 10 mg PO DAILY@1200 01/12/18 07/28/22 Omeprazole 20 mg PO DAILY@1200 02/08/20 07/28/22 Latanoprost Ophth [Xalatan 0.005%] 1 drop BOTH EYES HS 11/08/21 07/28/22 Tamsulosin [Flomax] 0.4 mg PO DAILY@1200 11/08/21 07/28/22 rOPINIRole HCL [Requip] 4 mg PO HS@179911/08/21 07/28/22 Cyclobenzaprine [Flexeril] 10 mg PO TID@0600,1200,1800 11/24/21 07/28/22 Loratadine [Claritin] 10 mg PO DAILY@119911/24/21 07/28/22 oxyCODONE-APAP 10-325MG [Percocet 1 tab PO Q8H PRN 11/24/21 07/28/22 10-325 mg] Budesonide-Formot 160-4.5 Mcg 2 puff INHALATION RT-BID 04/11/22 07/28/22 [Symbicort 160-4.5 Mcg Inhaler] Empagliflozin [Jardiance] 10 mg PO DAILY@1200 04/11/22 07/28/22 Apixaban [Eliquis] 5 mg PO BID@0600,1800 05/13/22 07/28/22 Sacubitril/Valsartan [Entresto 24 1 tab PO BID@0600,1800 05/13/22 07/28/22 mg-26 mg Tablet] Spironolactone [Aldactone] 25 mg PO DAILY@0600 05/13/22 07/28/22 Albuterol Nebulized [Ventolin 2.5 mg INHALATION RT-TID PRN 07/15/22 07/28/22 Nebulized] Naloxone HCl [Narcan] 4 mg NASAL ONCE PRN 07/15/22 07/28/22 Previous Rx's Medication Instructions Recorded Metoprolol Succinate (ER) [Toprol 25 mg PO DAILY #90 tab 07/28/22 XL] Allergies Allergy/AdvReac Type Severity Reaction Status Date / Time pregabalin [From Lyrica] Allergy Leg Verified 07/28/22 07:08 swelling amoxicillin trihydrate AdvReac Rapid Verified 07/28/22 07:08 [From Augmentin] Heart Rate potassium clavulanate AdvReac FELT LIKE Verified 07/28/22 07:08 [From Augmentin] HE WAS GOING TO PASS OUT FAST HEARTBEAT" Review of Systems ROS Statement: Those systems with pertinent positive or pertinent negative responses have been documented in the HPI. ROS Other: All systems not noted in ROS Statement are negative. Past Medical History Past Medical History: Atrial Fibrillation, Coronary Artery Disease (CAD), Heart Failure, COPD, Diabetes Mellitus, Eye Disorder, Fibromyalgia, Hypertension, Myocardial Infarction (NM), Osteoarthritis (OA), Prostate Disorder, Vascular Disorder Additional Past Medical History / Comment(s): Chronic cough, hx pancreatitis, bilateral eye glaucoma, neuropathy bilateral feet, poor circulation to legs, varicose veins, RLS, hx BPH, colitis, gastritis, Alvarenga's esophagus, shingles in 2013 and states joint pain since, chronic low back pain, DDD. Last Myocardial Infarction Date:: 09/02/16 History of Any Multi-Drug Resistant Organisms: None Reported Past Surgical History: Appendectomy, Cardiac Ablation, Heart Catheterization, Joint Replacement, Orthopedic Surgery, Prostate Surgery Additional Past Surgical History / Comment(s): Right knee arthroscopy for torn meniscus, right knee replacement, EGD, colonoscopy, TURP. cardioversion 07/14- sucessful Past Anesthesia/Blood Transfusion Reactions: No Reported Reaction Additional Past Anesthesia/Blood Transfusion Reaction / Comment(s): no hx blood transfusion Past Psychological History: Anxiety, Depression Smoking Status: Current every day smoker Past Alcohol Use History: Occasional Past Drug Use History: None Reported - Past Family History Father Family Medical History: CVA/TIA, Hypertension Additional Family Medical History / Comment(s): Father at the age of 38yrs from HTN/CVA. He was an alcoholic. Mother Family Medical History: COPD, Diabetes Mellitus Additional Family Medical History / Comment(s): Mother of emphysema at the age of 74 yrs (2003), mom had hx of drinking and smoking. General Exam - General Exam Comments Initial Comments: GENERAL Patient is well-developed and well-nourished. Patient is in mild distress. EYES Patient's pupils are equal and round. Extraocular motion is intact SKIN Unremarkable NEURO The patient is alert and oriented 3 PYSCH Patient has normal interpersonal interactions. MUSCULOSKELETAL On the right foot between the first and second toe on onto the anterior foot there is some red staining consistent with potentially some dried blood in it wiped off with a wet paper towel Limitations: no limitations Course Vital Signs 11/10/22 12:51 Temperature 97.9 F Pulse Rate 100 Respiratory 18 Rate Blood Pressure 170/96 O2 Sat by Pulse 97 Oximetry Medical Decision Making - Medical Decision Making Was pt. sent in by a medical professional or institution ([facility], SURVEILLANCE SYSTEMS ANALYST, urgent care, hospital, or jail...) When possible be specific @ -No Did you speak to anyone other than the patient for history (EMS, parent, family, police, friend...)? What history was obtained from this source @ -No Did you review nursing and triage notes (agree or disagree)? Why? @ -I reviewed and agree with nursing and triage notes Were old charts reviewed (outside hosp., previous admission, EMS record, old EKG, old radiological studies, urgent care reports/EKG's, jail records)? Report findings @ -No old charts were reviewed Differential Diagnosis (chest pain, altered mental status, abdominal pain women, abdominal pain men, vaginal bleeding, weakness, fever, dyspnea, syncope, headache, dizziness, GI bleed, back pain, seizure, CVA, palpatations, mental health, musculoskeletal)? @ -not applicable EKG interpreted by me (3pts min.). @ -As above X-rays interpreted by me (1pt min.). @ -None done CT interpreted by me (1pt min.). @ -None done U/S interpreted by me (1pt. min.). @ -None done What testing was considered but not performed or refused? (CT, X-rays, U/S, labs)? Why? @ -None What meds were considered but not given or refused? Why? @ -None Did you discuss the management of the patient with other professionals (professionals i.e. , PA, SURVEILLANCE SYSTEMS ANALYST, lab, RT, psych nurse, oncology social worker, oil well perforator operator, teacher, upscale security officer, business case analyst)? Give summary @ -No Was smoking cessation discussed for >3mins.? @ -No Was critical care preformed (if so, how long)? @ -No Were there social determinants of health that impacted care today? How? (Ho melessness, low income, unemployed, alcoholism, drug addiction, transportation, low edu. Level, literacy, decrease access to med. care, skilled nursing, rehab)? @ -No Was there de-escalation of care discussed even if they declined (Discuss DNR or withdrawal of care, Hospice)? DNR status @ -No What co-morbidities impacted this encounter? (DM, HTN, Smoking, COPD, CAD, Cancer, CVA, ARF, Chemo, Hep., AIDS, mental health diagnosis, sleep apnea, morbid obesity)? @ -None Was patient admitted / discharged? Hospital course, mention meds given and route, prescriptions, significant lab abnormalities, going to OR and other pertinent info. @ -Patient thought that the red color on top of his foot was under the skin and he wanted to know what it was before I wiped off a paper towel patient apologizes for wasting my time by coming to the emergency department stating that he could go home and is to elevate his feet to help with the swelling he needed nothing further at this point in time. Undiagnosed new problem with uncertain prognosis? @ -No Drug Therapy requiring intensive monitoring for toxicity (Heparin, Nitro, Insulin, Cardizem)? @ -No Were any procedures done? @ -No Diagnosis/symptom? @ -Skin contamination Acute, or Chronic, or Acute on Chronic? @ -Acute Uncomplicated (without systemic symptoms) or Complicated (systemic symptoms)? @ -Uncomplicated Side effects of treatment? @ -No Exacerbation, Progression, or Severe Exacerbation? @ -No Poses a threat to life or bodily function? How? (Chest pain, USA, NM, pneumonia, PE, COPD, DKA, ARF, appy, cholecystitis, CVA, Diverticulitis, Homicidal, Suicidal, threat to staff... and all critical care pts) @ -No Disposition Clinical Impression: Discoloration of skin of foot Disposition: HOME SELF-CARE Is patient prescribed a controlled substance at d/c from ED?: No Referrals: Albert Chavez MD [Primary Care Provider] - 1-2 days Time of Disposition: 13:34
== END 2022-11-10 13:35 | disposition home or self-care (01) ==
LOC: EC 12:43
DX: L98.9 Disorder of the skin and subcutaneous tissue, unspecified (principal); E11.40 Type 2 diabetes mellitus with diabetic neuropathy, unspecified; I11.0 Hypertensive heart disease with heart failure; I50.9 Heart failure, unspecified; J44.9 Chronic obstructive pulmonary disease, unspecified; I25.2 Old myocardial infarction; I25.10 Atherosclerotic heart disease of native coronary artery without angina pectoris; I48.91 Unspecified atrial fibrillation; M19.90 Unspecified osteoarthritis, unspecified site; M79.7 Fibromyalgia; N40.0 Benign prostatic hyperplasia without lower urinary tract symptoms; F17.200 Nicotine dependence, unspecified, uncomplicated; Z79.01 Long term (current) use of anticoagulants; Z79.51 Long term (current) use of inhaled steroids; Z79.84 Long term (current) use of oral hypoglycemic drugs; Z79.899 Other long term (current) drug therapy; Z88.0 Allergy status to penicillin; Z88.1 Allergy status to other antibiotic agents; Z88.8 Allergy status to other drugs, medicaments and biological substances
CPT/HCPCS: 99283

== ENCOUNTER → 2023-01-27 | Outpatient (CLI) | payer OTHER ==
[2023-01-27 21:37] LABS: Basophils # (A) 0.06 X 10*3/uL (0.00-0.10); Basophils % (A) 0.8 %; Eosinophils # (A) 0.18 X 10*3/uL (0.04-0.35); Eosinophils % (A) 2.3 %; HCT 39.6 % (39.6-50.0); HGB 13.2 d/dL (12.0-15.0); Lymphocytes # (A) 1.41 X 10*3/uL (0.90-5.00); MCH 32.4 pg (27.0-32.0); MCHC 33.3 d/dL (32.0-37.0); MCV 97.3 FL (80.0-97.0); Mean Platelet Volume 9.7 FL (9.5-12.2); Monocytes # (A) 0.44 X 10*3/uL (0.20-1.00); Monocytes % (A) 5.6 %; NRBC Per 100 WBC 0 X 10*3/uL (0.00-0.01); Neutrophils % (A) 72.7 %; Platelet Count 266 X 10*3/uL (140-440); RBC 4.07 X 10*6/uL (4.40-5.60); RDW 13.4 % (11.5-14.5); WBC 7.84 X 10*3/uL (4.50-10.00)
== END | disposition home or self-care (01) ==
LOC: LABWHC1 13:34
PROVIDERS: ATTEND Nurse Practitioner Acute Care
DX: N18.2 Chronic kidney disease, stage 2 (mild) (principal); D63.1 Anemia in chronic kidney disease
CPT/HCPCS: 36415; 85025

== ENCOUNTER → 2023-01-30 | Outpatient (CLI) | payer OTHER ==
[2023-01-31 19:03] LABS: BUN/Creat Ratio 17.69 Ratio (12.00-20.00); Blood Urea Nitrogen 28.3 mg/dL (9.0-27.0); Calcium 9.4 mg/dL (8.7-10.3); Carbon Dioxide 21.1 mmol/L (21.6-31.8); Chloride 97 mmol/L (96-109); Glucose 172 mg/dL (70-110); Phosphorus 4.4 mg/dL (2.4-5.1); Potassium 4.6 mmol/L (3.5-5.5); Sodium 135 mmol/L (135-145)
== END | disposition home or self-care (01) ==
LOC: LABWHC1 13:51
PROVIDERS: ATTEND Nurse Practitioner Acute Care
DX: N18.2 Chronic kidney disease, stage 2 (mild) (principal)
CPT/HCPCS: 36415; 80048; 83735; 84100

== ENCOUNTER → 2023-02-13 | Outpatient (CLI) | payer OTHER ==
[2023-02-13 20:57] LABS: Blood Urea Nitrogen 12.3 mg/dL (9.0-27.0); Calcium 8.9 mg/dL (8.7-10.3); Carbon Dioxide 20.5 mmol/L (21.6-31.8); Chloride 102 mmol/L (96-109); Glucose 174 mg/dL (70-110); Magnesium 1.8 mg/dL (1.5-2.4); Phosphorus 2.8 mg/dL (2.4-5.1); Potassium 4.5 mmol/L (3.5-5.5); Sodium 135 mmol/L (135-145)
== END | disposition home or self-care (01) ==
LOC: LABWHC1 11:23
PROVIDERS: ATTEND Nurse Practitioner Acute Care
DX: N18.2 Chronic kidney disease, stage 2 (mild) (principal)
CPT/HCPCS: 36415; 80048; 83735; 84100

== ENCOUNTER 2023-02-28 07:56 | Observation (INO) | payer OTHER ==
[2023-02-28] MEDS ORDERED: HYDROmorphone 1 MG/ML 1 ML SYRINGE IVP STA (08:09)
[2023-02-28] MEDS ORDERED: FAMOTIDINE 20 MG/2 ML VIAL IV STA (08:10)
[2023-02-28] MEDS ORDERED: KETOROLAC 15 MG/ML 1 ML VIAL IVP STA (08:11)
--- NOTE | 2023-02-28 08:19 | ED ---
Abdominal Pain HPI - General Chief Complaint: Abdominal Pain Stated Complaint: Abd Pain Time Seen by Provider: 02/28/23 08:01 Source: patient, RN notes reviewed Mode of arrival: ambulatory Limitations: no limitations - History of Present Illness Initial Comments: This is a 62-year-old male who presents to the emergency department for upper abdominal pain. States that this started early this morning. This started in the right upper quadrant and is now more so centralized. Pain does also radiate to the right upper back. This feels like previous bouts of pancreatitis for him, aside from the right sided pain. He had sausage and corn for dinner last night. Denies any nausea, vomiting, diarrhea, or constipation. States that he used to be a heavy drinker, but now only has a couple of beers a few times each week. Denies any fevers, chills, sore throat, cough, dyspnea, chest pain, palpitations, nausea, vomiting, diarrhea, back pain, or headaches. MD Complaint: abdominal pain Location: LUQ, RUQ, epigastric - Related Data Home Medications Medication Instructions Recorded Confirmed Montelukast [Singulair] 10 mg PO DAILY@1200 01/12/18 02/28/23 Omeprazole 20 mg PO DAILY@1200 02/08/20 02/28/23 Latanoprost Ophth [Xalatan 0.005%] 1 drop BOTH EYES HS 11/08/21 02/28/23 Tamsulosin [Flomax] 0.4 mg PO DAILY@1200 11/08/21 02/28/23 rOPINIRole HCL [Requip] 4 mg PO HS@1800 11/08/21 02/28/23 Cyclobenzaprine [Flexeril] 10 mg PO TID@0600,1200,1800 11/24/21 02/28/23 Loratadine [Claritin] 10 mg PO DAILY@1200 11/24/21 02/28/23 oxyCODONE-APAP 10-325MG [Percocet 1 tab PO Q8H PRN 11/24/21 02/28/23 10-325 mg] Budesonide-Formot 160-4.5 Mcg 2 puff INHALATION RT-BID 04/11/22 02/28/23 [Symbicort 160-4.5 Mcg Inhaler] Empagliflozin [Jardiance] 10 mg PO DAILY@1200 04/11/22 02/28/23 Apixaban [Eliquis] 5 mg PO BID@0600,1800 05/13/22 02/28/23 Sacubitril/Valsartan [Entresto 24 1 tab PO BID@0600,1800 05/13/22 02/28/23 mg-26 mg Tablet] Naloxone HCl [Narcan] 4 mg NASAL ONCE PRN 07/15/22 02/28/23 Atorvastatin [Lipitor] 20 mg PO HS 02/28/23 02/28/23 Furosemide [Lasix] 40 mg PO BID 02/28/23 02/28/23 Neupro 3mg 1 patch TOPICAL DAILY PRN 02/28/23 02/28/23 Spironolactone [Aldactone] 50 mg PO DAILY 02/28/23 02/28/23 Tiotropium 2.5 Mcg/Puff [Spiriva 1 puff INHALATION RT-DAILY 02/28/23 02/28/23 Respimat 2.5 Mcg] Previous Rx's Medication Instructions Recorded Metoprolol Succinate (ER) [Toprol 25 mg PO DAILY #90 tab 07/28/22 XL] Allergies Allergy/AdvReac Type Severity Reaction Status Date / Time pregabalin [From Lyrica] Allergy Leg Verified 02/28/23 10:22 swelling amoxicillin trihydrate AdvReac Rapid Verified 02/28/23 10:22 [From Augmentin] Heart Rate potassium clavulanate AdvReac FELT LIKE Verified 02/28/23 10:22 [From Augmentin] HE WAS GOING TO PASS OUT FAST HEARTBEAT" Review of Systems ROS Statement: Those systems with pertinent positive or pertinent negative responses have been documented in the HPI. ROS Other: All systems not noted in ROS Statement are negative. Past Medical History Past Medical History: Atrial Fibrillation, Coronary Artery Disease (CAD), Heart Failure, COPD, Diabetes Mellitus, Eye Disorder, Fibromyalgia, Hypertension, Myocardial Infarction (CT), Osteoarthritis (OA), Prostate Disorder, Vascular Disorder Additional Past Medical History / Comment(s): Chronic cough, hx pancreatitis, bilateral eye glaucoma, neuropathy bilateral feet, poor circulation to legs, varicose veins, RLS, hx BPH, colitis, gastritis, Alvarenga's esophagus, shingles in 2013 and states joint pain since, chronic low back pain, DDD. Last Myocardial Infarction Date:: 09/02/16 History of Any Multi-Drug Resistant Organisms: None Reported Past Surgical History: Appendectomy, Cardiac Ablation, Heart Catheterization, Joint Replacement, Orthopedic Surgery, Prostate Surgery Additional Past Surgical History / Comment(s): Right knee arthroscopy for torn meniscus, right knee replacement, EGD, colonoscopy, TURP. cardioversion 07/14- sucessful Past Anesthesia/Blood Transfusion Reactions: No Reported Reaction Additional Past Anesthesia/Blood Transfusion Reaction / Comment(s): no hx blood transfusion Past Psychological History: Anxiety, Depression Smoking Status: Current every day smoker Past Alcohol Use History: Occasional Past Drug Use History: None Reported - Past Family History Father Family Medical History: CVA/TIA, Hypertension Additional Family Medical History / Comment(s): Father at the age of 38yrs from HTN/CVA. He was an alcoholic. Mother Family Medical History: COPD, Diabetes Mellitus Additional Family Medical History / Comment(s): Mother of emphysema at the age of 74 yrs (2003), mom had hx of drinking and smoking. General Exam Limitations: no limitations General appearance: alert, in no apparent distress Head exam: Present: atraumatic, normocephalic, normal inspection Respiratory exam: Present: normal lung sounds bilaterally. Absent: respiratory distress, wheezes, rales, rhonchi, stridor Cardiovascular Exam: Present: regular rate, normal rhythm, normal heart sounds. Absent: systolic murmur, diastolic murmur, rubs, gallop, clicks GI/Abdominal exam: Present: soft, tenderness (epigastric), normal bowel sounds. Absent: distended Neurological exam: Present: alert, oriented X3, CN II-XII intact Psychiatric exam: Present: normal affect, normal mood Skin exam: Present: warm, dry, intact, normal color. Absent: rash Course Vital Signs 02/28/23 07:57 Temperature 98.6 F Pulse Rate 110 H Respiratory 18 Rate Blood Pressure 169/101 O2 Sat by Pulse 96 Oximetry Medical Decision Making - Medical Decision Making This is a 62-year-old male who presents to the emergency department for abdominal pain. Was pt. sent in by a medical professional or institution? @ -No Did you speak to anyone other than the patient for history? @ -No Did you review nursing and triage notes? @ -Yes, and I agree, it is accurate with regards to the patient's symptoms. Were old charts reviewed? @ -Liver US from 10/19/2022 demonstrating gallstones. Differential Diagnosis? @ -Differential Abdominal Pain Men: Appendicitis, cholecystitis, diverticulosis, ischemic bowel, pancreatitis, hepatitis, UTI, gastroenteritis, AAA, incarcerated hernia, bowel obstruction, constipation, inflammatory bowel, hepatitis, peptic ulcer disease, splenic infarction, perforated viscus, testicular torsion, this is not meant to be an all-inclusive list EKG interpreted by me (3pts min.)? @ -EKG interpreted by me demonstrating the following: Sinus tachycardia. Ventricular rate 103 beats per minute, OR interval 155 ms, QRS duration 125 ms, QTC 437 ms. X-rays interpreted by me (1pt min.)? @ -Not obtained CT interpreted by me (1pt min.)? @ -Not obtained U/S interpreted by me (1pt. min.)? @ -Gallbladder ultrasound obtained. My interpretation identifies chol elithiasis. What testing was considered but not performed? (CT, X-rays, U/S, labs)? Why? @ -None What meds were considered but not given? Why? @ -None Did you discuss the management of the patient with other professionals? @ -Yes, Dr. Marie, who accepts the patient for admission. Did you reconcile home meds? @ -Yes Was smoking cessation discussed for >3mins.? @ -I discussed smoking cessation for greater than 3 minutes. The risk of smoking were discussed with the patient including but not limited to risks of cancer, stroke, coronary artery disease and COPD. Also discussed with patient were multiple methods of quitting smoking. Lastly we discussed the financial cost of smoking. Was critical care preformed (if so, how long)? @ -No Were there social determinants of health that impacted care today? How? (Homelessness, low income, unemployed, alcoholism, drug addiction, transportation, low edu. Level, literacy, decrease access to med. care, fci, rehab)? @ -No Was there de-escalation of care discussed even if they declined? (Discuss DNR or withdrawal of care, Hospice)? @ -No What co-morbidities impacted this encounter? (DM, HTN, Smoking, COPD, CAD, Cancer, CVA, Hep., AIDS, mental health diagnosis, sleep apnea, morbid obesity)? @ -A-fib, CAD, DM, HLD, HTN Was patient admitted / discharged? @ -Admitted. Symptoms controlled with IV fluids, Toradol, Dilauded, and Pepcid. Lab work obtained revealing an elevated amylase of 446 and elevated lipase of 3016 consistent with acute pancreatitis. Gallbladder ultrasound does reveal cholelithiasis with a mildly dilated duct. However, the duct dilation is simila r to the ultrasound he had on 10/19/22. He has decreased his alcohol consumption, as he used to be a very heavy and daily drinker. He is now only having a couple of beers a few times each week. I did add on a lipid panel for evaluation of his triglycerides. Additionally, a BNP was also added on, as the patient reports a history of heart failure and I did not want to fluid overload him. BNP found to be 401. Lipid panel pending at the time of admission. Patient admitted to medicine for further management of acute pancreatitis. He was started on maintenance IV fluids. Consult placed for GI per the admitting team's request. Undiagnosed new problem with uncertain prognosis? @ -None Drug Therapy requiring intensive monitoring for toxicity (Heparin, Nitro, Insulin, Cardizem)? @ -None Were any procedures done? @ -None Diagnosis/symptom? @ -Acute pancreatitis Acute, or Chronic, or Acute on Chronic? @ -Acute Uncomplicated (without systemic symptoms) or Complicated (systemic symptoms)? @ -Complicated Side effects of treatment? @ -None Exacerbation, Progression, or Severe Exacerbation] @ -Not applicable Poses a threat to life or bodily function? @ -Yes Diagnosis/symptom? @ -Nicotine dependence Acute, or Chronic, or Acute on Chronic? @ -Chronic Uncomplicated (without systemic symptoms) or Complicated (systemic symptoms)? @ -Uncomplicated Side effects of treatment? @ -Not on treatment Exacerbation, Progression, or Severe Exacerbation] @ -Stable Poses a threat to life or bodily function? @ -Yes This case was discussed in detail with the attending ED physician, Dr. Edwards. Presentation, findings, and treatment plan discussed in detail as well. - Lab Data Result diagrams: 02/28/23 08:22 02/28/23 08:22 Lab Results 02/28/23 02/28/23 02/28/23 Range/Units 08:22 08:22 08:22 WBC 8.2 (3.8-10.6) k/uL RBC 4.06 L (4.30-5.90) m/uL Hgb 14.1 (13.0-17.5) gm/dL Hct 40.4 (39.0-53.0) % MCV 99.4 (80.0-100.0) fL MCH 34.7 (25.0-35.0) pg MCHC 34.9 (31.0-37.0) g/dL RDW 14.6 (11.5-15.5) % Plt Count 261 (150-450) k/uL MPV 6.8 Neutrophils % 71 % Lymphocytes % 19 % Monocytes % 5 % Eosinophils % 3 % Basophils % 1 % Neutrophils # 5.8 (1.3-7.7) k/uL Lymphocytes # 1.5 (1.0-4.8) k/uL Monocytes # 0.4 (0-1.0) k/uL Eosinophils # 0.3 (0-0.7) k/uL Basophils # 0.1 (0-0.2) k/uL Macrocytosis Slight Sodium 136 L (137-145) mmol/L Potassium 4.1 (3.5-5.1) mmol/L Chloride 101 (98-107) mmol/L Carbon Dioxide 26 (22-30) mmol/L Anion Gap 9 mmol/L BUN 20 (9-20) mg/dL Creatinine 1.37 H (0.66-1.25) mg/dL Est GFR (CKD-EPI)AfAm 64 (>60 ml/min/1.73 sqM) Est GFR (CKD-EPI)NonAf 55 (>60 ml/min/1.73 sqM) Glucose 128 H (74-99) mg/dL Plasma Lactic Acid Carlos Manuel 1.3 (0.7-2.0) mmol/L Calcium 8.7 (8.4-10.2) mg/dL Total Bilirubin 0.5 (0.2-1.3) mg/dL AST 31 (17-59) U/L ALT 24 (4-49) U/L Alkaline Phosphatase 75 (38-126) U/L NT-Pro-B Natriuret Pep pg/mL Total Protein 7.0 (6.3-8.2) g/dL Albumin 3.9 (3.5-5.0) g/dL Amylase 446 H* (30-110) U/L Lipase 3016 H (23-300) U/L Urine Color Urine Appearance (Clear) Urine pH (5.0-8.0) Ur Specific [place] (1.001-1.035) Urine Protein (Negative) Urine Glucose (UA) (Negative) Urine Ketones (Negative) Urine Blood (Negative) Urine Nitrite (Negative) Urine Bilirubin (Negative) Urine Urobilinogen (<2.0) mg/dL Ur Leukocyte Esterase (Negative) 02/28/23 02/28/23 Range/Units 08:22 08:22 WBC (3.8-10.6) k/uL RBC (4.30-5.90) m/uL Hgb (13.0-17.5) gm/dL Hct (39.0-53.0) % MCV (80.0-100.0) fL MCH (25.0-35.0) pg MCHC (31.0-37.0) g/dL RDW (11.5-15.5) % Plt Count (150-450) k/uL MPV Neutrophils % % Lymphocytes % % Monocytes % % Eosinophils % % Basophils % % Neutrophils # (1.3-7.7) k/uL Lymphocytes # (1.0-4.8) k/uL Monocytes # (0-1.0) k/uL Eosinophils # (0-0.7) k/uL Basophils # (0-0.2) k/uL Macrocytosis Sodium (137-145) mmol/L Potassium (3.5-5.1) mmol/L Chloride (98-107) mmol/L Carbon Dioxide (22-30) mmol/L Anion Gap mmol/L BUN (9-20) mg/dL Creatinine (0.66-1.25) mg/dL Est GFR (CKD-EPI)AfAm (>60 ml/min/1.73 sqM) Est GFR (CKD-EPI)NonAf (>60 ml/min/1.73 sqM) Glucose (74-99) mg/dL Plasma Lactic Acid Carlos Manuel (0.7-2.0) mmol/L Calcium (8.4-10.2) mg/dL Total Bilirubin (0.2-1.3) mg/dL AST (17-59) U/L ALT (4-49) U/L Alkaline Phosphatase (38-126) U/L NT-Pro-B Natriuret Pep 401 pg/mL Total Protein (6.3-8.2) g/dL Albumin (3.5-5.0) g/dL Amylase (30-110) U/L Lipase (23-300) U/L Urine Color Light Yellow Urine Appearance Clear (Clear) Urine pH 6.0 (5.0-8.0) Ur Specific [place] 1.006 (1.001-1.035) Urine Protein Negative (Negative) Urine Glucose (UA) 4+ H (Negative) Urine Ketones Negative (Negative) Urine Blood Negative (Negative) Urine Nitrite Negative (Negative) Urine Bilirubin Negative (Negative) Urine Urobilinogen <2.0 (<2.0) mg/dL Ur Leukocyte Esterase Negative (Negative) - Radiology Data Radiology results: report reviewed, image reviewed Disposition Clinical Impression: Pancreatitis, Nicotine dependence Disposition: ADMITTED IP TO THIS HOSP
[2023-02-28 08:40] LABS: Basophils # (A) 0.1 k/uL (0-0.2); Basophils % (A) 1 %; Eosinophils # (A) 0.3 k/uL (0-0.7); Eosinophils % (A) 3 %; HCT 40.4 % (39.0-53.0); HGB 14.1 gm/dL (13.0-17.5); Lymphocytes # (A) 1.5 k/uL (1.0-4.8); Lymphocytes % (A) 19 %; MCH 34.7 pg (25.0-35.0); MCHC 34.9 g/dL (31.0-37.0); MCV 99.4 fL (80.0-100.0); Macrocytosis Slight; Mean Platelet Volume 6.8; Monocytes # (A) 0.4 k/uL (0-1.0); Monocytes % (A) 5 %; Neutrophils # (A) 5.8 k/uL (1.3-7.7); Neutrophils % (A) 71 %; Platelet Count 261 k/uL (150-450); RBC 4.06 m/uL (4.30-5.90); RDW 14.6 % (11.5-15.5); WBC 8.2 k/uL (3.8-10.6)
[2023-02-28 09:00] LABS: ALT 24 U/L (4-49); AST 31 U/L (17-59); African American GFR (CKD) 64 (>60 ml/min/1.73 sqM); Albumin 3.9 g/dL (3.5-5.0); Alkaline Phosphatase 75 U/L (38-126); Anion Gap 9 mmol/L; Blood Urea Nitrogen 20 mg/dL (9-20); Calcium 8.7 mg/dL (8.4-10.2); Carbon Dioxide 26 mmol/L (22-30); Chloride 101 mmol/L (98-107); Glucose 128 mg/dL (74-99); Non-African American GFR(CKD) 55 (>60 ml/min/1.73 sqM); Potassium 4.1 mmol/L (3.5-5.1); Sodium 136 mmol/L (137-145); Total Bilirubin 0.5 mg/dL (0.2-1.3)
[2023-02-28 09:01] LABS: Appearance,Urine Clear (Clear); Bilirubin,Urine Negative (Negative); Blood,Urine Negative (Negative); Color,Urine Light Yellow; Glucose,Urine (UA) 4+ (Negative); Ketones,Urine Negative (Negative); Leukocyte Esterase,Urine Negative (Negative); Nitrite,Urine Negative (Negative); Protein,Urine Negative (Negative); Specific Gravity,Urine 1.006 (1.001-1.035); Urobilinogen,Urine <2.0 mg/dL (<2.0)
[2023-02-28 09:02] LABS: Amylase 446 U/L (30-110)
[2023-02-28 09:13] LABS: Lipase 3016 U/L (23-300)
[2023-02-28] MEDS ORDERED: SODIUM CHLORIDE 0.9% 1,000 ML IV STA (09:19)
--- NOTE | 2023-02-28 09:44 | US ---
EXAMINATION TYPE: US gallbladder DATE OF EXAM: 02/28/2023 COMPARISON: 10/19/2022 CLINICAL INDICATION: Male, 62 years old with history of Upper abdominal pain; TECHNIQUE: Multiple sonographic images of the right upper quadrant are obtained. FINDINGS: EXAM MEASUREMENTS: Liver Length: 24.8 cm Gallbladder Wall: .4 cm CBD: 1.2 cm Right Kidney: 11.7 x 5.8 x 4.0 cm HOME COORDINATOR NOTES: Pancreas: Obscured by bowel gas Liver: Increased attenuation, hepatomegaly. No focal lesion seen. Gallbladder: Small layering calculi. Mild wall thickening probably due to nondistention. Evidence for sonographic Kelly's sign: No CBD: Mildly dilated but similar to slightly smaller than on 10/19/2022 Right Kidney: Cortical thinning. No hydronephrosis. IMPRESSION: 1. Hepatomegaly of 24.8 cm with moderate to severe hepatic steatosis. 2. Small layering gallstones. Mild gallbladder wall thickening probably due to nondistention. 3. Mildly dilated bile duct, similar to 10/19/2022.
[2023-02-28 09:57] LABS: NT-Pro-B-Type Natriuretic Pept 401 pg/mL
[2023-02-28] MEDS ORDERED: ONDANSETRON 4 MG/2 ML VIAL IVP PRN (09:58)
[2023-02-28] MEDS ORDERED: HYDROmorphone 0.5 MG/0.5 ML SYRINGE IVP PRN (09:58)
[2023-02-28] MEDS ORDERED: ACETAMINOPHEN TAB 325 MG TAB PO PRN (09:58)
[2023-02-28] MEDS ORDERED: NALOXONE 0.4 MG/ML 1 ML VIAL IV PRN (09:58)
[2023-02-28 11:33] LABS: Glucose,Whole Blood 122 mg/dL (70-110)
[2023-02-28] MEDS: SODIUM CHLORIDE 0.9% 1,000 ML IV SCH (12:28)
[2023-02-28] MEDS: METOPROLOL SUCCINATE (ER) 25 MG TAB.ER.24H PO SCH (12:28)
[2023-02-28] MEDS: CYCLOBENZAPRINE 10 MG TAB PO SCH ×2 (12:28→17:09)
[2023-02-28] MEDS: TAMSULOSIN 0.4 MG CAP.ER.24H PO SCH (12:29)
[2023-02-28] MEDS: LORATADINE 10 MG TAB PO SCH (12:29)
[2023-02-28] MEDS: PANTOPRAZOLE 40 MG TABLET PO SCH (12:29)
[2023-02-28] MEDS: DAPAGLIFLOZIN PROPANEDIOL 5 MG TABLET PO SCH (12:29)
[2023-02-28] MEDS: MONTELUKAST 10 MG TAB PO SCH (14:16)
[2023-02-28 15:24] LABS: Chol/HDL Ratio 3.68 Ratio
--- NOTE | 2023-02-28 15:51 | P.CONS ---
History of Present Illness - Reason for Consult Consult date: 02/28/23 Pancreatitis Requesting physician: Kayla Weston - Chief Complaint Abdominal pain - History of Present Illness This is a pleasant 62-year-old well-known to our GI services with a long- standing history of alcohol abuse, and recurrent alcoholic pancreatitis. Patient states he started having severe upper abdominal pain around 4- 5 AM and came to the emergency department. States he was drinking beer this past week and weekend. States pain felt like previous pancreatitis so he came in for further evaluation. He was noted to have elevated amylase and lipase. He unde rwent ultrasound of gallbladder reporting hepatomegaly with moderate to severe hepatic steatosis, small layering gallstones with mild gallbladder wall thickening mildly dilated bile ducts similar to 10/19/2022. He states abdominal pain has improved. Denies any nausea or vomiting. Labs WBC 8.2 hemoglobin 14 and platelet count 261,000 sodium 136 potassium 4.1 BUN 20 creatinine 1.3 total bilirubin 0.5 AST 31 ALT 24 alkaline phosphatase 75. Triglycerides 314 amylase 446 lipase 3016 Review of Systems REVIEW OF SYSTEMS: CARDIOPULMONARY: No chest pain or shortness of breath. Gastrointestinal: Upper abdominal pain. No nausea or vomiting. No hematemesis, coffee-ground emesis. No rectal bleeding, or melena. GENITOURINARY: No dysuria or hematuria. MUSCULOSKELETAL: Reports normal range of motion., Joint pain. SKIN: No rashes. No jaundice. ENDOCRINE: No chills, fevers. No excessive weight gain or loss. No polydipsia or polyuria. PSYCHIATRIC: Unremarkable. NEUROLOGY: No change in mental status. Denies dizziness, headache. ENT: Vision unremarkable. CONSTITUTIONAL: No recent weight loss. No fever, chills, night sweats. Past Medical History Past Medical History: Atrial Fibrillation, Coronary Artery Disease (CAD), Heart Failure, COPD, Diabetes Mellitus, Eye Disorder, Fibromyalgia, Hypertension, Myocardial Infarction (MD), Osteoarthritis (OA), Prostate Disorder, Vascular Disorder Additional Past Medical History / Comment(s): Chronic cough, hx pancreatitis, bilateral eye glaucoma, neuropathy bilateral feet, poor circulation to legs, varicose veins, RLS, hx BPH, colitis, gastritis, Alvarenga's esophagus, shingles in 2013 and states joint pain since, chronic low back pain, DDD. Last Myocardial Infarction Date:: 09/02/16 History of Any Multi-Drug Resistant Organisms: None Reported Past Surgical History: Appendectomy, Cardiac Ablation, Heart Catheterization, Joint Replacement, Orthopedic Surgery, Prostate Surgery Additional Past Surgical History / Comment(s): Right knee arthroscopy for torn meniscus, right knee replacement, EGD, colonoscopy, TURP. cardioversion 07/14-sucessful Past Anesthesia/Blood Transfusion Reactions: No Reported Reaction Additional Past Anesthesia/Blood Transfusion Reaction / Comm: no hx blood transfusion Past Psychological History: Anxiety, Depression Smoking Status: Current every day smoker Past Alcohol Use History: Occasional Past Drug Use History: None Reported - Past Family History Father Family Medical History: CVA/TIA, Hypertension Additional Family Medical History / Comment(s): Father at the age of 38yrs from HTN/CVA. He was an alcoholic. Mother Family Medical History: COPD, Diabetes Mellitus Additional Family Medical History / Comment(s): Mother of emphysema at the age of 74 yrs (2003), mom had hx of drinking and smoking. Medications and Allergies Home Medications Medication Instructions Recorded Confirmed Type Montelukast [Singulair] 10 mg PO DAILY@1200 01/12/18 02/28/23 History Omeprazole 20 mg PO DAILY@1200 02/08/20 02/28/23 History Latanoprost Ophth [Xalatan 0.005%] 1 drop BOTH EYES HS 11/08/21 02/28/23 History Tamsulosin [Flomax] 0.4 mg PO DAILY@1200 11/08/21 02/28/23 History rOPINIRole HCL [Requip] 4 mg PO HS@1800 11/08/21 02/28/23 History Cyclobenzaprine [Flexeril] 10 mg PO TID@0600,1200,1800 11/24/21 02/28/23 History Loratadine [Claritin] 10 mg PO DAILY@1200 11/24/21 02/28/23 History oxyCODONE-APAP 10-325MG [Percocet 1 tab PO Q8H PRN 11/24/21 02/28/23 History 10-325 mg] Budesonide-Formot 160-4.5 Mcg 2 puff INHALATION RT-BID 04/11/22 02/28/23 History [Symbicort 160-4.5 Mcg Inhaler] Empagliflozin [Jardiance] 10 mg PO DAILY@1200 04/11/22 02/28/23 History Apixaban [Eliquis] 5 mg PO BID@0600,1800 05/13/22 02/28/23 History Sacubitril/Valsartan [Entresto 24 1 tab PO BID@0600,1800 05/13/22 02/28/23 History mg-26 mg Tablet] Naloxone HCl [Narcan] 4 mg NASAL ONCE PRN 07/15/22 02/28/23 History Metoprolol Succinate (ER) [Toprol 25 mg PO DAILY #90 tab 07/28/22 02/28/23 Rx XL] Atorvastatin [Lipitor] 20 mg PO HS 02/28/23 02/28/23 History Furosemide [Lasix] 40 mg PO BID 02/28/23 02/28/23 History Neupro 3mg 1 patch TOPICAL DAILY PRN 02/28/23 02/28/23 History Spironolactone [Aldactone] 50 mg PO DAILY 02/28/23 02/28/23 History Tiotropium 2.5 Mcg/Puff [Spiriva 1 puff INHALATION RT-DAILY 02/28/23 02/28/23 History Respimat 2.5 Mcg] Allergies Allergy/AdvReac Type Severity Reaction Status Date / Time pregabalin [From Lyrica] Allergy Leg Verified 02/28/23 10:22 swelling amoxicillin trihydrate AdvReac Rapid Verified 02/28/23 10:22 [From Augmentin] Heart Rate potassium clavulanate AdvReac FELT LIKE Verified 02/28/23 10:22 [From Augmentin] HE WAS GOING TO PASS OUT FAST HEARTBEAT" Physical Exam Vitals: Vital Signs Temp Pulse Pulse Resp BP BP Pulse Ox 02/28/23 13:44 97.6 F 85 17 121/80 100 02/28/23 11:39 78 18 112/74 99 02/28/23 11:37 97.7 F 90 18 177/76 100 02/28/23 07:57 98.6 F 110 H 18 169/101 96 Intake and Output 02/27/23 02/28/23 02/28/23 22:59 06:59 14:59 Other: Weight 104.326 kg General appearance: The patient is alert, oriented, appears in no acute distress. HET: Head is normocephalic and atraumatic. Conjunctiva pink. Sclera anicteric. Neck: Supple without lymphadenopathy. Trachea midline. Heart: S1 S2. Regular rate and rhythm. Lungs: Clear to auscultation. Abdomen: Soft, mild tenderness epigastric right upper quadrant, nondistended with bowel sounds. No guarding or rigidity. Skin: No rashes. No jaundice. Extremities: Normal skin color and turgor. No pedal edema. Neurological: No focal deficits. Alert and oriented x3. Results CBC & Chem 7: 02/28/23 08:22 02/28/23 08:22 Labs: Abnormal Lab Results - Last 24 Hours (Table) 02/28/23 02/28/23 02/28/23 Range/Units 08:22 08:22 08:22 RBC 4.06 L (4.30-5.90) m/uL Sodium 136 L (137-145) mmol/L Creatinine 1.37 H (0.66-1.25) mg/dL Glucose 128 H (74-99) mg/dL POC Glucose (mg/dL) (70-110) mg/dL Amylase 446 H* (30-110) U/L Lipase 3016 H (23-300) U/L Urine Glucose (UA) 4+ H (Negative) 02/28/23 Range/Units 11:32 RBC (4.30-5.90) m/uL Sodium (137-145) mmol/L Creatinine (0.66-1.25) mg/dL Glucose (74-99) mg/dL POC Glucose (mg/dL) 122 H (70-110) mg/dL Amylase (30-110) U/L Lipase (23-300) U/L Urine Glucose (UA) (Negative) US - abdomen: report reviewed Assessment and Plan (1) Alcoholic pancreatitis Narrative/Plan: 62-year-old male with long-standing history of alcohol abuse, who had reported quit in the past with recurrent episodes of pancreatitis. Patient did admit that he had been drinking again, states he's been drinking beer. Again more likely dealing with acute alcoholic pancreatitis. Ultrasound shows gallstones however patient had gallstones on previous imaging. LFTs are within normal limits. Amylase and lipase elevated consistent with an acute pancreatitis. Continue with symptomatic support. Current Visit: No Status: Acute Code(s): K85.20 - ALCOHOL INDUCED ACUTE PANCREATITIS WITHOUT NECROSIS OR INFCT SNOMED Code(s): 501493171 (2) Abdominal pain Current Visit: No Status: Acute Code(s): R10.9 - UNSPECIFIED ABDOMINAL PAIN SNOMED Code(s): 49159143 Plan: 1. Continue symptomatic and supportive care 2. Clear liquid diet, advance as tolerated 3. Repeat lipase in the morning 4. Alcohol abstinence. Discussed importance of alcohol abstinence and continuing drinking any alcohol increased risk of recurrent pancreatitis. Patient verbalized understanding. Thank you for this consultation, we will continue to follow. Dr. Edel Avila I agree with the dictator's note, documented as a scribe by Krystin Waller.
[2023-02-28] MEDS: HYDROmorphone 1 MG/ML 1 ML SYRINGE IVP PRN ×3 (16:45→23:08)
[2023-02-28 16:51] LABS: Glucose,Whole Blood 107 mg/dL (70-110)
[2023-02-28] MEDS: APIXABAN 5 MG TAB PO SCH (17:08)
[2023-02-28] MEDS ORDERED: rOPINIRole HCL 4 MG TABLET PO SCH (18:00)
[2023-02-28] MEDS: SACUBITRIL/VALSARTAN 24 MG-26 MG TABLET PO SCH (18:37)
[2023-02-28] MEDS: guaiFENesin 600 MG TABLET.ER PO SCH (20:06)
[2023-02-28] MEDS: FUROSEMIDE 40 MG TAB PO SCH (20:06)
[2023-02-28 20:19] LABS: Glucose,Whole Blood 103 mg/dL (70-110)
[2023-02-28] MEDS ORDERED: LATANOPROST 0.005% OPHTH DROPS 2.5 ML BTL BOTH EYES SCH (21:00)
[2023-02-28] MEDS ORDERED: ATORVASTATIN 20 MG TAB PO SCH (21:00)
[2023-02-28] MEDS: SYMBICORT 160-4.5 MCG INHALER INHALATION SCH (22:30)
[2023-03-01] MEDS: SODIUM CHLORIDE 0.9% 1,000 ML IV SCH (00:21)
--- NOTE | 2023-03-01 01:45 | P.HPIM ---
History of Present Illness H&P Date: 02/28/23 Chief Complaint: Abdominal pain Patient is a 60-year-old male with known history of alcohol abuse and chronic recurrent pancreatitis presents to ER with complaints of upper abdominal pain started around 4 to 5 AM this morning. Patient states that pain is radiating to the back from the epigastric region. States that symptoms are similar to his previous pancreatitis. Patient states that he ate sausage and call for dinner last night and was also eating more peanuts which made his pancreatitis symptoms. Also admits that he was drinking be over the weekend. Denies any nausea or vomiting. No diarrhea. Patient states that he only had a couple of beers over the weekend. Gallbladder ultrasound showed hepatomegaly of 2.4 cm with moderate to severe hepatic steatosis. Small layering gallstones. Mild gallbladder wall thickening probably due to nondistention. Mildly dilated bile duct. Similar to 10/19/2022. Laboratory data showed WBC 8.2 hemoglobin 14.1 and platelets 261 Sodium 136 potassium 4.1 chloride 101 bicarb is 26 BUN 20 and creatinine 1.37 Lipase level is 3016 and amylase 446 and LDL 61 and triglycerides 314 Urinalysis is negative for infection. Review of Systems Constitutional: Patient denies any fever or chills . no Generalized weakness. Abdomen: Patient denied any nausea or vomiting. Patient does complain of epigastric abd. pain. No diarrhea. Cardiovascular: Patient denies any chest pain or short of breath no palpit ations. Respiratory: patient denied any cough . no sputum production. No shortness of breath Neurologic: Patient denied any numbness or tingling headache. Musculoskeletal: Patient denies any complaints of joint swelling or deformity. Skin: Negative Psychiatric: Negative Endocrine: No heat or cold intolerance. No recent weight gain. Genitourinary: No dysuria or hematuria. All other 14 point ROS negative except the above Past Medical History Past Medical History: Atrial Fibrillation, Coronary Artery Disease (CAD), Heart Failure, COPD, Diabetes Mellitus, Eye Disorder, Fibromyalgia, Hypertension, Myocardial Infarction ([place]), Osteoarthritis (OA), Prostate Disorder, Vascular Disorder Additional Past Medical History / Comment(s): Chronic cough, hx pancreatitis, bilateral eye glaucoma, neuropathy bilateral feet, poor circulation to legs, varicose veins, RLS, hx BPH, colitis, gastritis, Alvarenga's esophagus, shingles in 2013 and states joint pain since, chronic low back pain, DDD. Last Myocardial Infarction Date:: 09/02/16 History of Any Multi-Drug Resistant Organisms: None Reported Past Surgical History: Appendectomy, Cardiac Ablation, Heart Catheterization, Joint Replacement, Orthopedic Surgery, Prostate Surgery Additional Past Surgical History / Comment(s): Right knee arthroscopy for torn meniscus, right knee replacement, EGD, colonoscopy, TURP. cardioversion 07/14- sucessful Past Anesthesia/Blood Transfusion Reactions: No Reported Reaction Additional Past Anesthesia/Blood Transfusion Reaction / Comment(s): no hx blood transfusion Past Psychological History: Anxiety, Depression Smoking Status: Current every day smoker Past Alcohol Use History: Occasional Past Drug Use History: None Reported - Past Family History Father Family Medical History: CVA/TIA, Hypertension Additional Family Medical History / Comment(s): Father at the age of 38yrs from HTN/CVA. He was an alcoholic. Mother Family Medical History: COPD, Diabetes Mellitus Additional Family Medical History / Comment(s): Mother of emphysema at the age of 74 yrs (2003), mom had hx of drinking and smoking. Medications and Allergies Home Medications Medication Instructions Recorded Confirmed Type RX: Montelukast [Singulair] 10 mg PO DAILY@1200 01/12/18 02/28/23 History RX: Omeprazole 20 mg PO DAILY@1200 02/08/20 02/28/23 History RX: Latanoprost Ophth [Xalatan 1 drop BOTH EYES HS 11/08/21 02/28/23 History 0.005%] RX: Tamsulosin [Flomax] 0.4 mg PO DAILY@1200 11/08/21 02/28/23 History RX: rOPINIRole HCL [Requip] 4 mg PO HS@1800 11/08/21 02/28/23 History RX: Cyclobenzaprine [Flexeril] 10 mg PO TID@0600,1200,1800 11/24/21 02/28/23 History RX: Loratadine [Claritin] 10 mg PO DAILY@1200 11/24/21 02/28/23 History RX: oxyCODONE-APAP 10-325MG 1 tab PO Q8H PRN 11/24/21 02/28/23 History [Percocet 10-325 mg] RX: Budesonide-Formot 160-4.5 Mcg 2 puff INHALATION RT-BID 04/11/22 02/28/23 History [Symbicort 160-4.5 Mcg Inhaler] RX: Empagliflozin [Jardiance] 10 mg PO DAILY@1200 04/11/22 02/28/23 History RX: Apixaban [Eliquis] 5 mg PO BID@0600,1800 05/13/22 02/28/23 History RX: Sacubitril/Valsartan [Entresto 1 tab PO BID@0600,1800 05/13/22 02/28/23 History 24 mg-26 mg Tablet] RX: Naloxone HCl [Narcan] 4 mg NASAL ONCE PRN 07/15/22 02/28/23 History RX: Metoprolol Succinate (ER) 25 mg PO DAILY #90 tab 07/28/22 02/28/23 Rx [Toprol XL] Atorvastatin [Lipitor] 20 mg PO HS 02/28/23 02/28/23 History Furosemide [Lasix] 40 mg PO BID 02/28/23 02/28/23 History Neupro 3mg 1 patch TOPICAL DAILY PRN 02/28/23 02/28/23 History Spironolactone [Aldactone] 50 mg PO DAILY 02/28/23 02/28/23 History Tiotropium 2.5 Mcg/Puff [Spiriva 1 puff INHALATION RT-DAILY 02/28/23 02/28/23 History Respimat 2.5 Mcg] Allergies Allergy/AdvReac Type Severity Reaction Status Date / Time pregabalin [From Lyrica] Allergy Leg Verified 02/28/23 10:22 swelling amoxicillin trihydrate AdvReac Rapid Verified 02/28/23 10:22 [From Augmentin] Heart Rate potassium clavulanate AdvReac FELT LIKE Verified 02/28/23 10:22 [From Augmentin] HE WAS GOING TO PASS OUT FAST HEARTBEAT" Physical Exam Vitals: Vital Signs Temp Pulse Pulse Resp BP BP Pulse Ox 02/28/23 13:44 97.6 F 85 17 121/80 100 02/28/23 11:39 78 18 112/74 99 02/28/23 11:37 97.7 F 90 18 177/76 100 02/28/23 07:57 98.6 F 110 H 18 169/101 96 Intake and Output 07/17/23 07/18/23 07/18/23 22:59 06:59 14:59 Other: Weight 104.326 kg PHYSICAL EXAMINATION: Patient is lying in the bed comfortably, no acute distress, awake alert and oriented.. HEENT: Normocephalic. Neck is supple. Pupils reactive. Nostrils clear. Oral cavity is moist. Neck reveals no JVD, carotid bruits, or thyromegaly. CHEST EXAMINATION: Trachea is central. Symmetrical expansion. Lung brown clear to auscultation and percussion. CARDIAC: Normal S1, S2 with no gallops. No murmurs ABDOMEN: Soft. Bowel sounds present. Mild epigastric tenderness. No guarding or rigidity.. No organomegaly. No abdominal bruits. Extremities: reveal no edema. No clubbing or cyanosis Neurologically awake, alert, oriented x3 with well-coordinated movements. No focal deficits noted Skin: No rash or skin lesions. Psychiatric: Coperative. Nonsuicidal, Musculoskeletal: No joint swelling or deformity. Normal range of motion. Results CBC & Chem 7: 02/28/23 08:22 02/28/23 08:22 Labs: Abnormal Lab Results - Last 24 Hours (Table) 02/28/23 02/28/23 02/28/23 Range/Units 08:22 08:22 08:22 RBC 4.06 L (4.30-5.90) m/uL Sodium 136 L (137-145) mmol/L Creatinine 1.37 H (0.66-1.25) mg/dL Glucose 128 H (74-99) mg/dL POC Glucose (mg/dL) (70-110) mg/dL Amylase 446 H* (30-110) U/L Lipase 3016 H (23-300) U/L Urine Glucose (UA) 4+ H (Negative) 02/28/23 Range/Units 11:32 RBC (4.30-5.90) m/uL Sodium (137-145) mmol/L Creatinine (0.66-1.25) mg/dL Glucose (74-99) mg/dL POC Glucose (mg/dL) 122 H (70-110) mg/dL Amylase (30-110) U/L Lipase (23-300) U/L Urine Glucose (UA) (Negative) Thrombosis Risk Factor Assmnt - DVT/VTE Prophylaxis DVT/VTE Prophylaxis: Pharmacologic Prophylaxis ordered - Choose All That Apply Any of the Below Risk Factors Present?: Yes Each Factor Represents 1 point: Obesity (BMI >25), Swollen legs (current) Other Risk Factors: Yes Each Risk Factor Represents 2 Points: Age 61-74 years Other congenital or acquired thrombophilia - If yes, enter type in comment: No Thrombosis Risk Factor Assessment Total Risk Factor Score: 4 Thrombosis Risk Factor Assessment Level: Moderate Risk Assessment and Plan Assessment: Acute recurrent pancreatitis likely EtOH related. Hepatic steatosis and Coronary artery disease disease. History of cardiac ablation Paroxysmal atrial fibrillation on anticoagulation with Eliquis Diabetes type 2 [id number]-[id number] Fibromyalgia Hypertension History [place] Osteoarthritis BPH Alvarenga's esophagus Anxiety/depression Currently everyday smoker DVT prophylaxis patient is already on Eliquis Plan: Patient will be continued on IV hydration, pain management. Patient was started on liquid diet and advance as tolerated. Continue with insulin sliding scale. Continue with home medications and follow closely. GI is on board. Monitor for alcohol withdrawal symptoms. Time with Patient: Greater than 30
[2023-03-01] MEDS: HYDROmorphone 1 MG/ML 1 ML SYRINGE IVP PRN ×4 (02:17→11:45)
[2023-03-01] MEDS: APIXABAN 5 MG TAB PO SCH (05:08)
[2023-03-01] MEDS: SACUBITRIL/VALSARTAN 24 MG-26 MG TABLET PO SCH (05:08)
[2023-03-01] MEDS: CYCLOBENZAPRINE 10 MG TAB PO SCH ×2 (05:09→11:54)
[2023-03-01 05:32] LABS: Glucose,Whole Blood 114 mg/dL (70-110)
[2023-03-01] MEDS ORDERED: IPRATROPIUM 0.5 MG/2.5 ML NEBU INHALATION SCH (08:00)
[2023-03-01] MEDS: SYMBICORT 160-4.5 MCG INHALER INHALATION SCH (08:42)
[2023-03-01 08:47] LABS: Basophils # (A) 0.07 X 10*3/uL (0.00-0.10); Basophils % (A) 1.1 %; Eosinophils # (A) 0.24 X 10*3/uL (0.04-0.35); Eosinophils % (A) 3.6 %; HCT 37.7 % (39.6-50.0); HGB 12.3 d/dL (12.0-15.0); Lymphocytes # (A) 1.29 X 10*3/uL (0.90-5.00); Lymphocytes % (A) 19.5 %; MCH 33.2 pg (27.0-32.0); MCHC 32.6 d/dL (32.0-37.0); MCV 101.6 FL (80.0-97.0); Mean Platelet Volume 9.1 FL (9.5-12.2); Monocytes # (A) 0.46 X 10*3/uL (0.20-1.00); Monocytes % (A) 6.9 %; NRBC Per 100 WBC 0 X 10*3/uL (0.00-0.01); Neutrophils # (A) 4.52 X 10*3/uL (1.80-7.70); Neutrophils % (A) 68.1 %; Platelet Count 222 X 10*3/uL (140-440); RBC 3.71 X 10*6/uL (4.40-5.60); RDW 14.9 % (11.5-14.5); WBC 6.63 X 10*3/uL (4.50-10.00)
[2023-03-01] MEDS ORDERED: SPIRONOLACTONE 25 MG TAB PO SCH (09:00)
[2023-03-01 09:40] LABS: ALT 24 U/L (10-49); AST 28 U/L (14-35); Albumin 3.8 d/dL (3.8-4.9); Albumin/Globulin Ratio 1.73 Ratio (1.60-3.17); Alkaline Phosphatase 73 U/L (41-126); BUN/Creat Ratio 13.15 Ratio (12.00-20.00); Blood Urea Nitrogen 17.1 mg/dL (9.0-27.0); Calcium 8.7 mg/dL (8.7-10.3); Carbon Dioxide 24.1 mmol/L (21.6-31.8); Chloride 100 mmol/L (96-109); Globulin 2.2 d/dL (1.6-3.3); Glucose 109 mg/dL (70-110); Lipase 93 U/L (14-60); Potassium 4.2 mmol/L (3.5-5.5); Sodium 136 mmol/L (135-145); Total Bilirubin 0.6 mg/dL (0.3-1.2)
[2023-03-01] MEDS: FUROSEMIDE 40 MG TAB PO SCH (10:00)
[2023-03-01] MEDS: guaiFENesin 600 MG TABLET.ER PO SCH (10:00)
[2023-03-01] MEDS: METOPROLOL SUCCINATE (ER) 25 MG TAB.ER.24H PO SCH (10:01)
[2023-03-01 11:50] LABS: Glucose,Whole Blood 119 mg/dL (70-110)
[2023-03-01] MEDS: DAPAGLIFLOZIN PROPANEDIOL 5 MG TABLET PO SCH (11:54)
[2023-03-01] MEDS: LORATADINE 10 MG TAB PO SCH (11:55)
[2023-03-01] MEDS: TAMSULOSIN 0.4 MG CAP.ER.24H PO SCH (11:57)
[2023-03-01] MEDS: PANTOPRAZOLE 40 MG TABLET PO SCH (11:57)
[2023-03-01] MEDS: MONTELUKAST 10 MG TAB PO SCH (11:57)
[2023-03-01 13:52] VITALS: BP 127/75; PULSE 96; RESP 18; TEMP 96.8
--- NOTE | 2023-03-01 14:11 | P.PN ---
Subjective Progress Note Date: 03/01/23 Principal diagnosis: Pancreatitis This is a pleasant 62-year-old well-known to our GI services with a long- standing history of alcohol abuse, and recurrent alcoholic pancreatitis. Patient states he started having severe upper abdominal pain around 4- 5 AM and came to the emergency department. States he was drinking beer this past week and weekend. States pain felt like previous pancreatitis so he came in for further evaluation. He was noted to have elevated amylase and lipase. He underwent ultrasound of gallbladder reporting hepatomegaly with moderate to severe hepatic steatosis, small layering gallstones with mild gallbladder wall thickening mildly dilated bile ducts similar to 10/19/2022. He states abdominal pain has improved. Denies any nausea or vomiting. 03/01/2023 Patient seen and examined today as a follow-up. He denies any abdominal pain. No nausea or vomiting. Repeat lipase 93 down from 3016. He has been tolerating his clear liquid diet. Objective - Vital Signs Vital signs: Vital Signs Temp 96.8 F L 03/01/23 13:52 Pulse 96 03/01/23 13:52 Resp 18 03/01/23 13:52 BP 127/75 03/01/23 13:52 Pulse Ox 94 L 03/01/23 13:52 FiO2 Intake & Output 02/28/23 03/01/23 03/01/23 18:59 06:59 18:59 Intake Total 525 1400 Balance 525 1400 Weight 104.326 kg Intake: Intake, IV Titration 525 900 Amount Sodium Chloride 0.9% 1, 525 900 000 ml @ 75 mls/hr IV . [id number] CHEYANNE Rx#:[id number] Oral 500 Other: # Voids 3 3 - Exam General appearance: The patient is alert, oriented, appears in no acute distress. HET: Head is normocephalic and atraumatic. Conjunctiva pink. Sclera anicteric. Neck: Supple without lymphadenopathy. Abdomen: Soft, nontender, nondistended with bowel sounds. Obese. No guarding or rigidity. Extremities: Normal skin color and turgor. No pedal edema Skin: No rashes, no jaundice Neurological: No focal deficits. Alert and oriented. - Labs CBC & Chem 7: 03/01/23 04:18 03/01/23 04:18 Labs: Abnormal Lab Results - Last 24 Hours (Table) 02/28/23 03/01/2303/01/23 Range/Units 08:22 04:18 04:18 RBC 3.71 L (4.40-5.60) X 10*6/uL Hct 37.7 L (39.6-50.0) % MCV 101.6 H (80.0-97.0) FL MCH 33.2 H (27.0-32.0) pg RDW 14.9 H (11.5-14.5) % MPV 9.1 L (9.5-12.2) FL POC Glucose (mg/dL) (70-110) mg/dL Total Protein 6.0 L (6.2-8.2) d/dL Triglycerides 314.00 H (0.00-149.00) mg/dL VLDL Cholesterol, Calc 62.80 H (5.00-40.00) mg/dL Lipase 93 H (14-60) U/L 03/01/23 03/01/23 Range/Units 05:31 11:49 RBC (4.40-5.60) X 10*6/uL Hct (39.6-50.0) % MCV (80.0-97.0) FL MCH (27.0-32.0) pg RDW (11.5-14.5) % MPV (9.5-12.2) FL POC Glucose (mg/dL) 114 H 119 H (70-110) mg/dL Total Protein (6.2-8.2) d/dL Triglycerides (0.00-149.00) mg/dL VLDL Cholesterol, Calc (5.00-40.00) mg/dL Lipase (14-60) U/L Assessment and Plan (1) Alcoholic pancreatitis Narrative/Plan: 62-year-old male with long-standing history of alcohol abuse, who had reported quit in the past with recurrent episodes of pancreatitis. Patient did admit that he had been drinking again, states he's been drinking beer. Again more likely dealing with acute alcoholic pancreatitis. Ultrasound shows gallstones however patient had gallstones on previous imaging. LFTs are within normal limits. Amylase and lipase elevated consistent with an acute pancreatitis. Continue with symptomatic support. Current Visit: No Status: Acute Code(s): K85.20 - ALCOHOL INDUCED ACUTE PANCREATITIS WITHOUT NECROSIS OR INFCT SNOMED Code(s): 354403800 (2) Abdominal pain Current Visit: No Status: Acute Code(s): R10.9 - UNSPECIFIED ABDOMINAL PAIN SNOMED Code(s): 22689608 Plan: 1. Continue symptomatic and supportive care 2. Advanced to low-fat diet 3. Encourage ambulation 4. Alcohol abstinence. Discussed importance of alcohol abstinence and continuing drinking any alcohol increased risk of recurrent pancreatitis. Patient verbalized understanding. 5. If patient tolerates regular diet may be discharged home. Thank you for this consultation, we will continue to follow. Dr. Edel Avila I agree with the dictator's note, documented as a scribe by Krystin HERNANDEZ C.
--- NOTE | 2023-03-03 12:09 | P.DS ---
Providers Date of admission: 02/28/23 09:46 Expected date of discharge: 03/01/23 Attending physician: Otis Marie MD Consults: 02/28/23 09:58 Consult Physician Urgent Consulting Provider: Laverne Avila Consult Reason/Comments: Pancreatitis, known gallstones Do you want consulting provider notified?: Yes Primary care physician: Albert Chavez Hospital Course: Final diagnosis Acute recurrent pancreatitis likely EtOH related. Hepatic steatosis Coronary artery disease disease. History of cardiac ablation Paroxysmal atrial fibrillation on anticoagulation with Eliquis Diabetes type 2 [id number]-[id number] Fibromyalgia Hypertension History OR Osteoarthritis BPH Alvarenga's esophagus Anxiety/depression Currently everyday smoker DVT prophylaxis patient is already on Eliquis Discharge disposition Patient is being discharged in a stable condition with guarded prognosis to home. Patient will follow-up with ROMULO Eng in the outpatient setting upon discharge. Patient is to continue with alcohol cessation. Total time taken is greater than 35 minutes. Hospital course This is a 62-year-old male who was recently admitted with abdominal pain with recurrent pancreatitis most likely secondary to EtOH use. Patient was seen and evaluated by GI and has been cleared for outpatient follow-up. Patient is improving and tolerating diet recommend slowly advancing diet as tolerated and complete alcohol cessation. Patient encouraged follow-up with primary care provider on discharge. Please refer to other consultation notes for further HPI. Currently no reports of chest pain, shortness of breath, or palpitations. Patient is afebrile. No reports of nausea or vomiting and patient is tolerating diet. Patient will be discharged home today. Guarded prognosis. Physical exam: Gen: This is a 62-year-old male who is awake, alert and oriented 3, well- developed, well-nourished, obese HEENT: Head is atraumatic, normocephalic. Pupils equal, round. Sclerae is anicteric. NECK: Supple. No JVD. No lymphadenopathy. No thyromegaly. LUNGS: Clear to auscultation. No wheezes or rhonchi. No intercostal retractions. HEART: Regular rate and rhythm. No murmur. ABDOMEN: Soft. Obese, chronically distended, Bowel sounds are present. No masses. No tenderness. EXTREMITIES: No pedal edema. No calf tenderness. NEUROLOGICAL: Patient is awake, alert and oriented x3. Cranial nerves 2 through 12 are grossly intact. Please refer to medication reconciliation sheet for a list of medications. The impression and plan of care has been dictated by Lesvia Mtz, Nurse Practitioner as directed. Dr. Gladys MD I have performed a history and examination and MDM of this patient, discussed the same with the dictator, and agree with the dictator's assessment and plan as written ,documented as a scribe. Based on total visit time, I have performed more than 50% of the visit. Patient Condition at Discharge: Stable Plan - Discharge Summary Discharge Rx Participant: No New Discharge Prescriptions: New guaiFENesin 200 mg PO BID 7 Days #14 tablet Continue Montelukast [Singulair] 10 mg PO DAILY@1200 Omeprazole 20 mg PO DAILY@1200 Latanoprost Ophth [Xalatan 0.005%] 1 drop BOTH EYES HS Tamsulosin [Flomax] 0.4 mg PO DAILY@1200 Cyclobenzaprine [Flexeril] 10 mg PO TID@0600,1200,1800 oxyCODONE-APAP 10-325MG [Percocet 10-325 mg] 1 tab PO Q8H PRN PRN Reason: Pain Empagliflozin [Jardiance] 10 mg PO DAILY@1200 Furosemide [Lasix] 40 mg PO BID Spironolactone [Aldactone] 50 mg PO DAILY Neupro 3mg 1 patch TOPICAL DAILY PRN PRN Reason: restless legs/shaking rOPINIRole HCL [Requip] 4 mg PO HS@1800 Loratadine [Claritin] 10 mg PO DAILY@1200 Budesonide-Formot 160-4.5 Mcg [Symbicort 160-4.5 Mcg Inhaler] 2 puff INHALATION RT-BID Sacubitril/Valsartan [Entresto 24 mg-26 mg Tablet] 1 tab PO BID@0600,1800 Apixaban [Eliquis] 5 mg PO BID@0600,1800 Naloxone HCl [Narcan] 4 mg NASAL ONCE PRN PRN Reason: overdose Metoprolol Succinate (ER) [Toprol XL] 25 mg PO DAILY #90 tab Tiotropium 2.5 Mcg/Puff [Spiriva Respimat 2.5 Mcg] 1 puff INHALATION RT-DAILY Atorvastatin [Lipitor] 20 mg PO HS Discharge Medication List Montelukast [Singulair] 10 mg PO DAILY@1200 01/12/18 [History] Omeprazole 20 mg PO DAILY@1200 02/08/20 [History] Latanoprost Ophth [Xalatan 0.005%] 1 drop BOTH EYES HS 11/08/21 [History] Tamsulosin [Flomax] 0.4 mg PO DAILY@1200 11/08/21 [History] rOPINIRole HCL [Requip] 4 mg PO HS@1800 11/08/21 [History] Cyclobenzaprine [Flexeril] 10 mg PO TID@0600,1200,1800 11/24/21 [History] Loratadine [Claritin] 10 mg PO DAILY@1200 11/24/21 [History] oxyCODONE-APAP 10-325MG [Percocet 10-325 mg] 1 tab PO Q8H PRN 11/24/21 [History] Budesonide-Formot 160-4.5 Mcg [Symbicort 160-4.5 Mcg Inhaler] 2 puff INHALATION RT-BID 04/11/22 [History] Empagliflozin [Jardiance] 10 mg PO DAILY@1200 04/11/22 [History] Apixaban [Eliquis] 5 mg PO BID@0600,1800 05/13/22 [History] Sacubitril/Valsartan [Entresto 24 mg-26 mg Tablet] 1 tab PO BID@0600,1800 05/13/22 [History] Naloxone HCl [Narcan] 4 mg NASAL ONCE PRN 07/15/22 [History] Metoprolol Succinate (ER) [Toprol XL] 25 mg PO DAILY #90 tab 07/28/22 [Rx] Atorvastatin [Lipitor] 20 mg PO HS 02/28/23 [History] Furosemide [Lasix] 40 mg PO BID 02/28/23 [History] Neupro 3mg 1 patch TOPICAL DAILY PRN 02/28/23 [History] Spironolactone [Aldactone] 50 mg PO DAILY 02/28/23 [History] Tiotropium 2.5 Mcg/Puff [Spiriva Respimat 2.5 Mcg] 1 puff INHALATION RT-DAILY 02/28/23 [History] guaiFENesin 200 mg PO BID 7 Days #14 tablet 03/01/23 [Rx] Follow up Appointment(s)/Referral(s): Curell,Karon, PAC [Family Provider] - 03/08/23 1:00 pm Activity/Diet/Wound Care/Special Instructions: Activity Limited until follow-up Follow-up with primary care provider on discharge Follow-up GI outpatient Continue with medications as prescribed Avoid alcohol intake Discharge Disposition: HOME SELF-CARE
== END 2023-03-01 15:28 | disposition home or self-care (01) ==
LOC: EC 07:56 → 4SSUR 09:46
PROVIDERS: ADMIT Internal Medicine; ATTEND Internal Medicine
DX: K85.20 Alcohol induced acute pancreatitis without necrosis or infection (principal); I25.10 Atherosclerotic heart disease of native coronary artery without angina pectoris; I11.0 Hypertensive heart disease with heart failure; I50.9 Heart failure, unspecified; J44.9 Chronic obstructive pulmonary disease, unspecified; M79.7 Fibromyalgia; R05.3 Chronic cough; E11.40 Type 2 diabetes mellitus with diabetic neuropathy, unspecified; G25.81 Restless legs syndrome; N40.0 Benign prostatic hyperplasia without lower urinary tract symptoms; F32.A Depression, unspecified; F41.9 Anxiety disorder, unspecified; F10.10 Alcohol abuse, uncomplicated; I48.0 Paroxysmal atrial fibrillation; M19.90 Unspecified osteoarthritis, unspecified site; K22.70 Barrett's esophagus without dysplasia; K76.0 Fatty (change of) liver, not elsewhere classified; I25.2 Old myocardial infarction; F17.200 Nicotine dependence, unspecified, uncomplicated; Z79.899 Other long term (current) drug therapy; Z79.84 Long term (current) use of oral hypoglycemic drugs; Z79.51 Long term (current) use of inhaled steroids; Z79.01 Long term (current) use of anticoagulants; Z88.0 Allergy status to penicillin
CPT/HCPCS: 96361 ×3; 96376 ×2; 96374; 96375; 99285; 36415; 94640 ×2; 93005; 83880; 80061; 80053 ×2; 82150; 83605; 83690 ×2; 85025 ×2; 81003; 76705; G0378 ×2; J1170 ×2; J1885

== ENCOUNTER → 2023-03-16 | Outpatient (CLI) | payer OTHER ==
[2023-03-16 17:02] LABS: Basophils # (A) 0.08 X 10*3/uL (0.00-0.10); Basophils % (A) 1.3 %; Eosinophils % (A) 3.3 %; HCT 40.8 % (39.6-50.0); HGB 13.3 d/dL (13.0-17.0); Lymphocytes # (A) 1.22 X 10*3/uL (0.90-5.00); Lymphocytes % (A) 19.9 %; MCHC 32.6 d/dL (32.0-37.0); MCV 101.2 FL (80.0-97.0); Mean Platelet Volume 9.2 FL (9.5-12.2); Monocytes # (A) 0.57 X 10*3/uL (0.20-1.00); Monocytes % (A) 9.3 %; NRBC Per 100 WBC 0 X 10*3/uL (0.00-0.01); Neutrophils # (A) 3.98 X 10*3/uL (1.80-7.70); Neutrophils % (A) 64.7 %; Platelet Count 301 X 10*3/uL (140-440); RBC 4.03 X 10*6/uL (4.40-5.60); RDW 14.5 % (11.5-14.5); WBC 6.14 X 10*3/uL (4.50-10.00)
[2023-03-17 01:36] LABS: ALT 31 U/L (10-49); AST 42 U/L (14-35); Albumin 4.1 d/dL (3.8-4.9); Albumin/Globulin Ratio 1.64 Ratio (1.60-3.17); Alkaline Phosphatase 103 U/L (41-126); BUN/Creat Ratio 13.94 Ratio (12.00-20.00); Blood Urea Nitrogen 23.7 mg/dL (9.0-27.0); Calcium 9.5 mg/dL (8.7-10.3); Carbon Dioxide 21.8 mmol/L (21.6-31.8); Chloride 96 mmol/L (96-109); Globulin 2.5 d/dL (1.6-3.3); Glucose 150 mg/dL (70-110); Potassium 4.1 mmol/L (3.5-5.5); Sodium 136 mmol/L (135-145); Total Bilirubin 0.2 mg/dL (0.3-1.2); Total Protein 6.6 d/dL (6.2-8.2)
== END | disposition home or self-care (01) ==
LOC: LABWHC1 09:37
PROVIDERS: ATTEND Internal Medicine Gastroenterology
DX: K70.30 Alcoholic cirrhosis of liver without ascites (principal)
CPT/HCPCS: 36415; 80053; 82105; 85025

== ENCOUNTER 2023-04-14 14:36 | Emergency (ER) | payer OTHER ==
--- NOTE | 2023-04-14 15:37 | ED ---
General Adult HPI - General Chief complaint: Extremity Problem,Nontraumatic Stated complaint: swollen feet Source: patient Mode of arrival: ambulatory Limitations: no limitations - History of Present Illness Initial comments: 62-year-old male with a past medical history significant for CHF and A. fib presents to the ED with a chief complaint of leg swelling. Patient states over the past 2-3 weeks has had an increase of his bilateral lower leg swelling. Also notes over the past few weeks has had increase in dyspnea and states that he has been needing to sleep sitting up in his recliner more. Additionally, notes a nonhealing wound of his right lower extremity. States initially about a dime size over the past few weeks has grown in size. Rates for the leg swelling, has been taking his Lasix but notes it "hasn't been doing anything" so he stopped taking it. Denies fever. Denies chest pain. Currently denies shortness of breath. No other complaints. - Related Data Home Medications Medication Instructions Recorded Confirmed Montelukast [Singulair] 10 mg PO DAILY@1200 01/12/18 02/28/23 Omeprazole 20 mg PO DAILY@1200 02/08/20 02/28/23 Latanoprost Ophth [Xalatan 0.005%] 1 drop BOTH EYES HS 11/08/21 02/28/23 Tamsulosin [Flomax] 0.4 mg PO DAILY@1200 11/08/21 02/28/23 rOPINIRole HCL [Requip] 4 mg PO HS@1800 11/08/21 02/28/23 Cyclobenzaprine [Flexeril] 10 mg PO TID@0600,1200,1800 11/24/21 02/28/23 Loratadine [Claritin] 10 mg PO DAILY@119911/24/21 02/28/23 oxyCODONE-APAP 10-325MG [Percocet 1 tab PO Q8H PRN 11/24/21 02/28/23 10-325 mg] Budesonide-Formot 160-4.5 Mcg 2 puff INHALATION RT-BID 04/11/22 02/28/23 [Symbicort 160-4.5 Mcg Inhaler] Empagliflozin [Jardiance] 10 mg PO DAILY@1200 04/11/22 02/28/23 Apixaban [Eliquis] 5 mg PO BID@0600,1800 05/13/22 02/28/23 Sacubitril/Valsartan [Entresto 24 1 tab PO BID@0600,1800 05/13/22 02/28/23 mg-26 mg Tablet] Naloxone HCl [Narcan] 4 mg NASAL ONCE PRN 07/15/22 02/28/23 Atorvastatin [Lipitor] 20 mg PO HS 02/28/23 02/28/23 Furosemide [Lasix] 40 mg PO BID 02/28/23 02/28/23 Neupro 3mg 1 patch TOPICAL DAILY PRN 02/28/23 02/28/23 Spironolactone [Aldactone] 50 mg PO DAILY 02/28/23 02/28/23 Tiotropium 2.5 Mcg/Puff [Spiriva 1 puff INHALATION RT-DAILY 02/28/23 02/28/23 Respimat 2.5 Mcg] Previous Rx's Medication Instructions Recorded Metoprolol Succinate (ER) [Toprol 25 mg PO DAILY #90 tab 07/28/22 XL] guaiFENesin 200 mg PO BID 7 Days #14 tablet 03/01/23 Allergies Allergy/AdvReac Type Severity Reaction Status Date / Time pregabalin [From Lyrica] Allergy Leg Verified 04/14/23 14:51 swelling amoxicillin trihydrate AdvReac Rapid Verified 04/14/23 14:51 [From Augmentin] Heart Rate potassium clavulanate AdvReac FELT LIKE Verified 04/14/23 14:51 [From Augmentin] HE WAS GOING TO PASS OUT FAST HEARTBEAT" Review of Systems ROS Statement: Those systems with pertinent positive or pertinent negative responses have been documented in the HPI. ROS Other: All systems not noted in ROS Statement are negative. Past Medical History Past Medical History: Atrial Fibrillation, Coronary Artery Disease (CAD), Heart Failure, COPD, Diabetes Mellitus, Eye Disorder, Fibromyalgia, Hypertension, Myocardial Infarction (IL), Osteoarthritis (OA), Prostate Disorder, Vascular Disorder Additional Past Medical History / Comment(s): Chronic cough, hx pancreatitis, bilateral eye glaucoma, neuropathy bilateral feet, poor circulation to legs, varicose veins, RLS, hx BPH, colitis, gastritis, Alvarenga's esophagus, shingles in 2013 and states joint pain since, chronic low back pain, DDD. Last Myocardial Infarction Date:: 09/02/16 History of Any Multi-Drug Resistant Organisms: None Reported Past Surgical History: Appendectomy, Cardiac Ablation, Heart Catheterization, Joint Replacement, Orthopedic Surgery, Prostate Surgery Additional Past Surgical History / Comment(s): Right knee arthroscopy for torn meniscus, right knee replacement, EGD, colonoscopy, TURP. cardioversion 07/14- sucessful Past Anesthesia/Blood Transfusion Reactions: No Reported Reaction Additional Past Anesthesia/Blood Transfusion Reaction / Comment(s): no hx blood transfusion Past Psychological History: Anxiety, Depression Smoking Status: Current every day smoker Past Alcohol Use History: Occasional Past Drug Use History: None Reported - Past Family History Father Family Medical History: CVA/TIA, Hypertension Additional Family Medical History / Comment(s): Father at the age of 38yrs from HTN/CVA. He was an alcoholic. Mother Family Medical History: COPD, Diabetes Mellitus Additional Family Medical History / Comment(s): Mother of emphysema at the age of 74 yrs (2003), mom had hx of drinking and smoking. General Exam Limitations: no limitations General appearance: alert, in no apparent distress Neck exam: Present: normal inspection Respiratory exam: Present: other (Course breath sounds bilaterally without respiratory distress) Cardiovascular Exam: Present: regular rate, irregular rhythm GI/Abdominal exam: Present: soft Extremities exam: Present: other (1+ pitting edema bilateral lower extremity. Approximately 2 cm in diameter ulceration on the posterior aspect of the right lower leg with surrounding erythema, no significant warmth or tenderness to palpation.) Neurological exam: Present: alert, oriented X3 Course Vital Signs 04/14/23 14:48 Temperature 97.4 F L Pulse Rate 103 H Respiratory 20 Rate Blood Pressure 107/66 O2 Sat by Pulse 96 Oximetry Medical Decision Making - Medical Decision Making Was pt. sent in by a medical professional or institution (, PA, HORSE SHOW MANAGER, urgent care, hospital, or fpc...) When possible be specific @ -No Did you speak to anyone other than the patient for history (EMS, parent, family, police, friend...)? What history was obtained from this source @ -No Did you review nursing and triage notes (agree or disagree)? Why? @ -I reviewed and agree with nursing and triage notes Were old charts reviewed (outside hosp., previous admission, EMS record, old EKG, old radiological studies, urgent care reports/EKG's, fpc records)? Report findings @ -No old charts were reviewed Differential Diagnosis (chest pain, altered mental status, abdominal pain women, abdominal pain men, vaginal bleeding, weakness, fever, dyspnea, syncope, headache, dizziness, GI bleed, back pain, seizure, CVA, palpatations, mental health, musculoskeletal)? @ -Differential Dyspnea: Coronary syndrome, arrhythmia, tamponade, asthma, COPD, pulmonary embolism, pneumonia, pneumothorax, pulmonary effusion, anaphylaxis, diabetic ketoacidosis, flailed chest, pulmonary contusion, diaphragmatic rupture, anemia, neuromuscular, this is not meant to be an all-inclusive list. EKG interpreted by me (3pts min.). @ -As above X-rays interpreted by me (1pt min.). @ -Chest x-ray shows no evidence of pleural effusion or other acute findings. CT interpreted by me (1pt min.). @ -None done U/S interpreted by me (1pt. min.). @ -None done What testing was considered but not performed or refused? (CT, X-rays, U/S, labs)? Why? @ -None What meds were considered but not given or refused? Why? @ -None Did you discuss the management of the patient with other professionals (professionals i.e. , PA, HORSE SHOW MANAGER, lab, RT, psych nurse, social media intern, vice president medical affairs, teacher, medical corps officer, ed case manager)? Give summary @ -No Was smoking cessation discussed for >3mins.? @ -No Was critical care preformed (if so, how long)? @ -No Were there social determinants of health that impacted care today? How? (Homelessness, low income, unemployed, alcoholism, drug addiction, transportation, low edu. Level, literacy, decrease access to med. care, intermediate, rehab)? @ -No Was there de-escalation of care discussed even if they declined (Discuss DNR or withdrawal of care, Hospice)? DNR status @ -No What co-morbidities impacted this encounter? (DM, HTN, Smoking, COPD, CAD, Cancer, CVA, ARF, Chemo, Hep., AIDS, mental health diagnosis, sleep apnea, morbid obesity)? @ -None Was patient admitted / discharged? Hospital course, mention meds given and route, prescriptions, significant lab abnormalities, going to OR and other pertinent info. @ -Discharge. Laboratory studies show hyponatremia at 131, hyperkalemia at 5.5. BNP 116 and troponin negative. Remainder laboratory studies unremarkable.. Imaging shows no evidence of pleural effusion. Patient given dose of IV Lasix here. In regards to wound on right lower extremity, no evidence of infection at this time and patient has no elevation of white count. Vital signs stable, afebrile. Advised to restart taking his Lasix. Advised follow-up with PCP. Discharged home in stable condition. Discussed return precautions with patient and family who verbalizes agreement. Undiagnosed new problem with uncertain prognosis? @ -No Drug Therapy requiring intensive monitoring for toxicity (Heparin, Nitro, Insulin, Cardizem)? @ -No Were any procedures done? @ -No Diagnosis/symptom? @ -Leg swelling, chronic wound on right lower extremity Acute, or Chronic, or Acute on Chronic? @ -Acute on chronic Uncomplicated (without systemic symptoms) or Complicated (systemic symptoms)? @ -Uncomplicated Side effects of treatment? @ -No Exacerbation, Progression, or Severe Exacerbation? @ -No Poses a threat to life or bodily function? How? (Chest pain, [place], IL, pneumonia, PE, COPD, DKA, ARF, appy, cholecystitis, CVA, Diverticulitis, Homicidal, Solo icidal, threat to staff... and all critical care pts) @ -No - Lab Data Result diagrams: 04/14/23 15:52 04/14/23 15:52 Lab Results 04/14/23 04/14/23 04/14/23 Range/Units 15:52 15:52 15:52 WBC 7.0 (3.8-10.6) k/uL RBC 3.96 L (4.30-5.90) m/uL Hgb 14.2 (13.0-17.5) gm/dL Hct 40.2 (39.0-53.0) % MCV 101.5 H (80.0-100.0) fL MCH 36.0 H (25.0-35.0) pg MCHC 35.5 (31.0-37.0) g/dL RDW 14.5 (11.5-15.5) % Plt Count 314 (150-450) k/uL MPV 7.4 Neutrophils % 71 % Lymphocytes % 18 % Monocytes % 6 % Eosinophils % 3 % Basophils % 1 % Neutrophils # 5.0 (1.3-7.7) k/uL Lymphocytes # 1.3 (1.0-4.8) k/uL Monocytes # 0.4 (0-1.0) k/uL Eosinophils # 0.2 (0-0.7) k/uL Basophils # 0.1 (0-0.2) k/uL Macrocytosis Slight PT 9.9 (9.0-12.0) sec INR 0.9 (<1.2) APTT 25.3 (22.0-30.0) sec Sodium (137-145) mmol/L Potassium (3.5-5.1) mmol/L Chloride (98-107) mmol/L Carbon Dioxide (22-30) mmol/L Anion Gap mmol/L BUN (9-20) mg/dL Creatinine (0.66-1.25) mg/dL Est GFR (CKD-EPI)AfAm (>60 ml/min/1.73 sqM) Est GFR (CKD-EPI)NonAf (>60 ml/min/1.73 sqM) Glucose (74-99) mg/dL Calcium (8.4-10.2) mg/dL Total Bilirubin (0.2-1.3) mg/dL AST (17-59) U/L ALT (4-49) U/L Alkaline Phosphatase (38-126) U/L Troponin I (0.000-0.034) ng/mL NT-Pro-B Natriuret Pep pg/mL Total Protein (6.3-8.2) g/dL Albumin (3.5-5.0) g/dL Urine Color Light Yellow Urine Appearance Clear (Clear) Urine pH 5.5 (5.0-8.0) Ur Specific [place] 1.008 (1.001-1.035) Urine Protein Negative (Negative) Urine Glucose (UA) 4+ H (Negative) Urine Ketones Negative (Negative) Urine Blood Negative (Negative) Urine Nitrite Negative (Negative) Urine Bilirubin Negative (Negative) Urine Urobilinogen <2.0 (<2.0) mg/dL Ur Leukocyte Esterase Negative (Negative) 04/14/23 04/14/23 Range/Units 15:52 15:52 WBC (3.8-10.6) k/uL RBC (4.30-5.90) m/uL Hgb (13.0-17.5) gm/dL Hct (39.0-53.0) % MCV (80.0-100.0) fL MCH (25.0-35.0) pg MCHC (31.0-37.0) g/dL RDW (11.5-15.5) % Plt Count (150-450) k/uL MPV Neutrophils % % Lymphocytes % % Monocytes % % Eosinophils % % Basophils % % Neutrophils # (1.3-7.7) k/uL Lymphocytes # (1.0-4.8) k/uL Monocytes # (0-1.0) k/uL Eosinophils # (0-0.7) k/uL Basophils # (0-0.2) k/uL Macrocytosis PT (9.0-12.0) sec INR (<1.2) APTT (22.0-30.0) sec Sodium 131 L (137-145) mmol/L Potassium 5.5 H (3.5-5.1) mmol/L Chloride 102 (98-107) mmol/L Carbon Dioxide 21 L (22-30) mmol/L Anion Gap 8 mmol/L BUN 18 (9-20) mg/dL Creatinine 1.02 (0.66-1.25) mg/dL Est GFR (CKD-EPI)AfAm >90 (>60 ml/min/1.73 sqM) Est GFR (CKD-EPI)NonAf 79 (>60 ml/min/1.73 sqM) Glucose 92 (74-99) mg/dL Calcium 9.3 (8.4-10.2) mg/dL Total Bilirubin 0.9 (0.2-1.3) mg/dL AST 47 (17-59) U/L ALT 24 (4-49) U/L Alkaline Phosphatase 65 (38-126) U/L Troponin I <0.012 (0.000-0.034) ng/mL NT-Pro-B Natriuret Pep 116 pg/mL Total Protein 7.9 (6.3-8.2) g/dL Albumin 4.3 (3.5-5.0) g/dL Urine Color Urine Appearance (Clear) Urine pH (5.0-8.0) Ur Specific [place] (1.001-1.035) Urine Protein (Negative) Urine Glucose (UA) (Negative) Urine Ketones (Negative) Urine Blood (Negative) Urine Nitrite (Negative) Urine Bilirubin (Negative) Urine Urobilinogen (<2.0) mg/dL Ur Leukocyte Esterase (Negative) - EKG Data EKG Comments: EKG shows a sinus rhythm at [address] or T-wave changes. NV 152, QRS 190, QT/QTc 353/409. Disposition Clinical Impression: CHF (congestive heart failure), Leg swelling, Chronic wound Disposition: HOME SELF-CARE Condition: Good Instructions (If sedation given, give patient instructions): Heart Failure (ER), Low-Sodium Diet (ED), Leg Edema (ED), Chronic Wound Care (ED) Additional Instructions: Please return to the Emergency Department if symptoms worsen or any other concerns. Is patient prescribed a controlled substance at d/c from ED?: No Referrals: None,Stated [REFERRING] - 1-2 days Time of Disposition: 17:06
--- NOTE | 2023-04-14 16:14 | XR ---
EXAMINATION TYPE: XR chest 2V DATE OF EXAM: 04/14/2023 COMPARISON: 07/15/2022 HISTORY: 62-year-old male rule out pleural effusion TECHNIQUE: PA and lateral views FINDINGS: Heart is normal size. Aorta and pulmonary vasculature within normal limits. Mild hyperinflation. No c onsolidation or pleural effusion. IMPRESSION: Mild hyperinflation may relate to depth of inspiration or underlying emphysema. No acute cardiopulmon arias process.
[2023-04-14 16:20] LABS: Basophils # (A) 0.1 k/uL (0-0.2); Basophils % (A) 1 %; Eosinophils # (A) 0.2 k/uL (0-0.7); Eosinophils % (A) 3 %; HCT 40.2 % (39.0-53.0); HGB 14.2 gm/dL (13.0-17.5); Lymphocytes # (A) 1.3 k/uL (1.0-4.8); Lymphocytes % (A) 18 %; MCHC 35.5 g/dL (31.0-37.0); MCV 101.5 fL (80.0-100.0); Macrocytosis Slight; Mean Platelet Volume 7.4; Monocytes # (A) 0.4 k/uL (0-1.0); Monocytes % (A) 6 %; Neutrophils % (A) 71 %; Platelet Count 314 k/uL (150-450); RBC 3.96 m/uL (4.30-5.90); RDW 14.5 % (11.5-15.5)
[2023-04-14 16:28] LABS: ALT 24 U/L (4-49); AST 47 U/L (17-59); African American GFR (CKD) >90 (>60 ml/min/1.73 sqM); Albumin 4.3 g/dL (3.5-5.0); Alkaline Phosphatase 65 U/L (38-126); Anion Gap 8 mmol/L; Blood Urea Nitrogen 18 mg/dL (9-20); Calcium 9.3 mg/dL (8.4-10.2); Carbon Dioxide 21 mmol/L (22-30); Chloride 102 mmol/L (98-107); Glucose 92 mg/dL (74-99); Non-African American GFR(CKD) 79 (>60 ml/min/1.73 sqM); Sodium 131 mmol/L (137-145); Total Bilirubin 0.9 mg/dL (0.2-1.3); Total Protein 7.9 g/dL (6.3-8.2)
[2023-04-14 16:31] LABS: INR 0.9 (<1.2); Partial Thromboplastin Time 25.3 sec (22.0-30.0); Prothrombin Time 9.9 sec (9.0-12.0)
[2023-04-14 16:37] LABS: NT-Pro-B-Type Natriuretic Pept 116 pg/mL
[2023-04-14 16:44] LABS: Appearance,Urine Clear (Clear); Bilirubin,Urine Negative (Negative); Blood,Urine Negative (Negative); Glucose,Urine (UA) 4+ (Negative); Ketones,Urine Negative (Negative); Leukocyte Esterase,Urine Negative (Negative); Nitrite,Urine Negative (Negative); PH, Urine 5.5 (5.0-8.0); Potassium 5.5 mmol/L (3.5-5.1); Protein,Urine Negative (Negative); Specific Gravity,Urine 1.008 (1.001-1.035); Urobilinogen,Urine <2.0 mg/dL (<2.0)
[2023-04-14 16:50] LABS: Color,Urine Light Yellow
[2023-04-14] MEDS ORDERED: FUROSEMIDE 10 MG/ML 4 ML VIAL IV STA (17:06)
[2023-04-14 17:38] VITALS: BP 119/77; PULSE 102; RESP 17; TEMP 98.2
== END 2023-04-14 17:38 | disposition home or self-care (01) ==
LOC: EC 14:36
DX: R22.43 Localized swelling, mass and lump, lower limb, bilateral (principal); I11.0 Hypertensive heart disease with heart failure; I50.9 Heart failure, unspecified; I48.91 Unspecified atrial fibrillation; J44.9 Chronic obstructive pulmonary disease, unspecified; I25.2 Old myocardial infarction; I25.10 Atherosclerotic heart disease of native coronary artery without angina pectoris; M19.90 Unspecified osteoarthritis, unspecified site; E11.9 Type 2 diabetes mellitus without complications; F41.9 Anxiety disorder, unspecified; F32.A Depression, unspecified; F17.200 Nicotine dependence, unspecified, uncomplicated; Z88.0 Allergy status to penicillin; Z79.01 Long term (current) use of anticoagulants; Z79.84 Long term (current) use of oral hypoglycemic drugs; Z79.51 Long term (current) use of inhaled steroids; Z79.899 Other long term (current) drug therapy
CPT/HCPCS: 36415; 93005; 83880; 80053; 84484; 85025; 85610; 85730; 81003; 71046; 99284; 96374; J1940

== ENCOUNTER → 2023-06-13 | Outpatient (CLI) | payer OTHER ==
[2023-06-13 15:41] LABS: HCT 38.4 % (39.6-50.0); MCH 33.9 pg (27.0-32.0); MCHC 33.9 d/dL (32.0-37.0); NRBC Per 100 WBC 0 X 10*3/uL (0.00-0.01); Platelet Count 389 X 10*3/uL (140-440); RBC 3.84 X 10*6/uL (4.40-5.60); RDW 13.4 % (11.5-14.5); WBC 8.93 X 10*3/uL (4.50-10.00)
[2023-06-13 16:05] LABS: BUN/Creat Ratio 21.15 Ratio (12.00-20.00); Blood Urea Nitrogen 27.5 mg/dL (9.0-27.0); Calcium 9.4 mg/dL (8.7-10.3); Chloride 98 mmol/L (96-109); Glucose 154 mg/dL (70-110); Magnesium 1.7 mg/dL (1.5-2.4); Phosphorus 3.7 mg/dL (2.4-5.1); Potassium 3.8 mmol/L (3.5-5.5); Sodium 134 mmol/L (135-145)
== END | disposition home or self-care (01) ==
LOC: LABWHC1 09:59
PROVIDERS: ATTEND Internal Medicine Nephrology
DX: N18.2 Chronic kidney disease, stage 2 (mild) (principal)
CPT/HCPCS: 36415; 80048; 83735; 84100; 85027

== ENCOUNTER → 2023-06-28 | Day surgery (SDC) | payer OTHER ==
[2023-06-27 09:44] VITALS: BMI 30.6
[~2023-06-28] MED LIST changes: +ALBUTEROL NEBULIZED 2.5 MG/3 ML INHALATION ONE; +IPRATROPIUM 0.5 MG/2.5 ML NEBU INHALATION ONE; +LIDOCAINE 2% (PF) 20 MG/ML 5 ML VIAL ONE; +PROPOFOL 10 MG/ML 20 ML VIAL IV ONE; -SODIUM CHLORIDE 0.9% 1,000 ML IV SCH
[2023-06-28 12:26] VITALS: TEMP 97.1
[2023-06-28 12:32] LABS: Glucose,Whole Blood 125 mg/dL (70-110)
--- NOTE | 2023-06-28 13:50 | P.PCN ---
Date of Procedure: 06/28/23 Procedure(s) Performed: BRIEF HISTORY: Patient is a 63-year-old, pleasant, white female scheduled for an upper endoscopy as a part of evaluation of GERD and intermittent dysphagia to solids. He also complains of some odynophagia the midesophagus. Has been on Protonix 40 mg twice daily. PROCEDURE PERFORMED: Esophagogastroduodenoscopy with biopsy. PREOPERATIVE DIAGNOSIS: GERD/Intermittent dysphagia to solids. IV sedation per anesthesia. PROCEDURE: After informed consent was obtained, the patient was brought into the endoscopy unit. IV sedation was administered by Anesthesia under continuous monitoring. Initially the Olympus GIF-140 video endoscope was inserted into the mouth. Esophagus intubated without any difficulty. It was gradually advanced into the stomach and duodenum and carefully examined. The bulb and the second part of the duodenum appeared normal. The scope at this time was withdrawn to the stomach, adequately insufflated with air, and upon careful examination, mucosa of the antrum, had mild gastritis. Because of the body, cardia and the fundus appeared normal. The scope was then withdrawn into the esophagus. The GE junction was located at 42 cm from the incisors. There was a 5 mm and of Alvarenga's appearing mucosa just proximal to the GE junction which was biopsied. In the mid esophagus at 29 to 31 cm from the incisors there were linear superficial ulcerations identified and multiple biopsies were done from this area. The proximal esophagus appeared normal and the patient tolerated the procedure well. IMPRESSION: 1. Short segment Alvarenga's esophagus status post biopsy. 2. Midesophagus linear ulcerations extending from 29-31 cm from the incisors status post multiple biopsies. RECOMMENDATIONS: The findings of this examination were discussed with the patient as well as his family. He was advised to follow with the biopsy results and he'll be seen in office in 2 weeks. Continue with Protonix 40 mg twice daily and follow antrum reflux measures. Will start him on Carafate 1 g 3 times daily as needed for the symptoms.
[2023-06-28 14:16] VITALS: RESP 14
[2023-06-28 14:17] VITALS: BP 134/64; PULSE 101
[2023-06-28 14:21] LABS: Glucose,Whole Blood 116 mg/dL (70-110)
== END ==
LOC: ORWHC2ENDO 11:49
PROVIDERS: ATTEND Internal Medicine Gastroenterology
DX: K22.10 Ulcer of esophagus without bleeding (principal); I50.9 Heart failure, unspecified; I25.10 Atherosclerotic heart disease of native coronary artery without angina pectoris; I10 Essential (primary) hypertension; I21.9 Acute myocardial infarction, unspecified; J44.9 Chronic obstructive pulmonary disease, unspecified; E11.9 Type 2 diabetes mellitus without complications; I48.91 Unspecified atrial fibrillation; F17.210 Nicotine dependence, cigarettes, uncomplicated; Z79.01 Long term (current) use of anticoagulants; Z88.6 Allergy status to analgesic agent; Z88.0 Allergy status to penicillin; Z98.890 Other specified postprocedural states; Z79.899 Other long term (current) drug therapy
CPT/HCPCS: 43239; J2704; J2001; 88305; 88312

== ENCOUNTER 2023-07-09 06:58 | Emergency (ER) | payer OTHER ==
[2023-07-09] MEDS ORDERED: PERMETHRIN 5% CREAM 60 GM TUBE TOPICAL ONE (07:54)
[2023-07-09] MEDS ORDERED: diphenhydrAMINE 50 MG CAP PO STA (07:54)
[2023-07-09] MEDS ORDERED: methylPREDNISolone SOD SUCCI 125 MG/2 ML VIAL IM ONE (07:54)
--- NOTE | 2023-07-09 07:59 | ED ---
General Adult HPI - General Chief complaint: Skin/Abscess/Foreign Body Stated complaint: Rash, Allergic Reaction Time Seen by Provider: 07/09/23 07:27 Source: patient, RN notes reviewed Mode of arrival: ambulatory Limitations: no limitations - History of Present Illness Initial comments: 63-year-old male with a past medical history significant for COPD, fibromyalgia presents the emergency department with a chief complaint of rash. Patient reports rash for the last 10 days. He reports that he was taking Abilify prescribed by his PCP and he first noticed the rash to her bilateral upper extremities. She reports that he quickly stopped taking Abilify however his symptoms as process. He reports that his arms are itchy. Denies new lotio ns, soaps, detergents. He has been using [id number] steroid creams without symptomatic improvement. He denies any cough, shortness of breath, scratchy throat. He does report that he is out of his Percocet and is requesting a couple days worth as he is unable to see his PCP recently. - Related Data Home Medications Medication Instructions Recorded Confirmed Montelukast [Singulair] 10 mg PO DAILY@1200 01/12/18 06/28/23 Tamsulosin [Flomax] 0.4 mg PO DAILY@119911/08/21 06/28/23 rOPINIRole HCL [Requip] 4 mg PO 1800 11/08/21 06/28/23 Cyclobenzaprine [Flexeril] 10 mg PO TID@0600,1200,1800 11/24/21 06/28/23 Loratadine [Claritin] 10 mg PO DAILY@119911/24/21 06/28/23 oxyCODONE-APAP 10-325MG [Percocet 1 tab PO Q8H PRN 11/24/21 06/28/23 10-325 mg] Budesonide-Formot 160-4.5 Mcg 2 puff INHALATION BID PRN 04/11/22 06/28/23 [Symbicort 160-4.5 Mcg Inhaler] Empagliflozin [Jardiance] 10 mg PO DAILY@1200 04/11/22 06/28/23 Apixaban [Eliquis] 5 mg PO BID@0600,1800 05/13/22 06/28/23 Sacubitril/Valsartan [Entresto 24 1 tab PO BID@0600,1800 05/13/22 06/28/23 mg-26 mg Tablet] Atorvastatin [Lipitor] 20 mg PO HS 02/28/23 06/28/23 Furosemide [Lasix] 40 mg PO BID PRN 02/28/23 06/28/23 Tiotropium 2.5 Mcg/Puff [Spiriva 2 puff INHALATION QAM 02/28/23 06/28/23 Respimat 2.5 Mcg] ARIPiprazole [Abilify] 1 mg PO QAM 06/27/23 06/28/23 Omeprazole [PriLOSEC] 20 mg PO DAILY 06/27/23 06/28/23 Spironolactone [Aldactone] 25 mg PO DAILY@1200 06/27/23 06/28/23 Previous Rx's Medication Instructions Recorded ARIPiprazole [Abilify] 5 mg PO DAILY #14 tab 07/09/23 Permethrin 5% Cream [Elimite] 1 applic TOPICAL ONCE #60 gram 07/09/23 oxyCODONE HCL/ACETAMINOPHEN 1 tab PO Q6HR PRN 2 Days #8 tab 07/09/23 [Percocet 10-325 mg] Allergies Allergy/AdvReac Type Severity Reaction Status Date / Time pregabalin [From Lyrica] Allergy Leg Verified 07/09/23 07:16 swelling amoxicillin trihydrate AdvReac Rapid Verified 07/09/23 07:16 [From Augmentin] Heart Rate potassium clavulanate AdvReac FELT LIKE Verified 07/09/23 07:16 [From Augmentin] HE WAS GOING TO PASS OUT FAST HEARTBEAT" Review of Systems ROS Statement: Those systems with pertinent positive or pertinent negative responses have been documented in the HPI. ROS Other: All systems not noted in ROS Statement are negative. Past Medical History Past Medical History: Atrial Fibrillation, Coronary Artery Disease (CAD), Heart Failure, COPD, Diabetes Mellitus, Eye Disorder, Fibromyalgia, Hypertension, Myocardial Infarction ([place]), Musculoskeletal Disorder, Osteoarthritis (OA), Prostate Disorder, Vascular Disorder Additional Past Medical History / Comment(s): Chronic cough, hx pancreatitis, bilateral glaucoma, neuropathy bilateral feet, poor circulation to legs, varicose veins, RLS, hx BPH, colitis, gastritis, Alvarenga's esophagus, hx Shingles in 2012 with joint pain since, chronic low back pain, DDD. Last Myocardial Infarction Date:: 09/02/16 History of Any Multi-Drug Resistant Organisms: None Reported Past Surgical History: Appendectomy, Cardiac Ablation, Heart Catheterization, Joint Replacement, Orthopedic Surgery, Prostate Surgery Additional Past Surgical History / Comment(s): Right knee arthroscopy, right knee replacement, EGD, colonoscopy, TURP, cardioversion. Past Anesthesia/Blood Transfusion Reactions: No Reported Reaction Additional Past Anesthesia/Blood Transfusion Reaction / Comment(s): No hx blood transfusion. Past Psychological History: Anxiety, Depression Smoking Status: Current some day smoker Past Alcohol Use History: Occasional Past Drug Use History: Cocaine - Past Family History Father Family Medical History: CVA/TIA, Hypertension Additional Family Medical History / Comment(s): Father at the age of 38yrs from HTN/CVA. He was an alcoholic. Mother Family Medical History: COPD, Diabetes Mellitus Additional Family Medical History / Comment(s): Mother of emphysema at the age of 74 yrs (2003), mom had hx of drinking and smoking. General Exam - General Exam Comments Initial Comments: General: Alert, in no acute distress Head: atraumatic normocephalic. Eyes PERRL, EOMI intact, mucous membranes moist Respiratory: Lungs clear to auscultation bilaterally Cardiovascular: Heart rate regular rate and rhythm Abdominal: Soft without guarding or rebound Extremities: Normal inspection with full range of motion and normal capillary refill, bilateral upper extremities with erythematous rash with excoriations and scabs to the upper arms. No sloughing. Neuroogic: alert and oriented 3, CN II-XII intact, able to ambulate with steady gait Skin: warm dry and intact with normal color Limitations: no limitations Course Vital Signs 07/09/23 07/09/23 07:14 08:14 Temperature 98.1 F 97.9 F Pulse Rate 104 H Respiratory 22 Rate Blood Pressure 114/72 O2 Sat by Pulse 99 Oximetry Medical Decision Making - Medical Decision Making Was pt. sent in by a medical professional or institution (, PA, [employer]PLE[employer] PRINTER INSTALLER, urgent care, hospital, or fpc...) When possible be specific @ -[No] Did you speak to anyone other than the patient for history (EMS, parent, family, police, friend...)? What history was obtained from this source @ -[No] Did you review nursing and triage notes (agree or disagree)? Why? @ -[I reviewed and agree with nursing and triage notes] Were old charts reviewed (outside hosp., previous admission, EMS record, old EKG, old radiological studies, urgent care reports/EKG's, fpc records)? Report findings @ -[No old charts were reviewed] Differential Diagnosis (chest pain, altered mental status, abdominal pain women, abdominal pain men, vaginal bleeding, weakness, fever, dyspnea, syncope, headache, dizziness, GI bleed, back pain, seizure, CVA, palpatations, mental health, musculoskeletal)? @ -[not applicable] EKG interpreted by me (3pts min.). @ -[As above] X-rays interpreted by me (1pt min.). @ -[None done] CT interpreted by me (1pt min.). @ -[None done] U/S interpreted by me (1pt. min.). @ -[None done] What testing was considered but not performed or refused? (CT, X-rays, U/S, labs)? Why? @ -[None] What meds were considered but not given or refused? Why? @ -[None] Did you discuss the management of the patient with other professionals (professionals i.e. , PA, [employer]PLEX PRINTER INSTALLER, lab, RT, psych nurse, social work program coordinator, retail grocer, teacher, light armored vehicle officer, case management specialist)? Give summary @ -[No] Was smoking cessation discussed for >3mins.? @ -[No] Was critical care preformed (if so, how long)? @ -[No] Were there social determinants of health that impacted care today? How? (Homelessness, low income, unemployed, alcoholism, drug addiction, transportation, low edu. Level, literacy, decrease access to med. care, skilled nursing, rehab)? @ -[No] Was there de-escalation of care discussed even if they declined (Discuss DNR or withdrawal of care, Hospice)? DNR status @ -[No] What co-morbidities impacted this encounter? (DM, HTN, Smoking, COPD, CAD, Cancer, CVA, ARF, Chemo, Hep., AIDS, mental health diagnosis, sleep apnea, morbid obesity)? @ -[None] Was patient admitted / discharged? Hospital course, mention meds given and route, prescriptions, significant lab abnormalities, going to OR and other pertinent info. @ Discharged. This is a 63-year-old male who presents the emergency department with rash. Rash consistent with scabies. Patient will be given Solu-Medrol and Benadryl. Patient given promethazine pain. Return precautions discussed at length. Case is discussed with HEATH Ordoñez who agrees with plan Undiagnosed new problem with uncertain prognosis? @ -[No] Drug Therapy requiring intensive monitoring for toxicity (Heparin, Nitro, Insulin, Cardizem)? @ -[No] Were any procedures done? @ -[No] Diagnosis/symptom? @ -Rash vs.Scabies Acute, or Chronic, or Acute on Chronic - Acute Uncomplicated (without systemic symptoms) or Complicated (systemic symptoms)? @ -Uncomplicated Side effects of treatment? @ -[No] Exacerbation, Progression, or Severe Exacerbation? @ -[No] Poses a threat to life or bodily function? How? (Chest pain, [place], [place], pneumonia, PE, COPD, DKA, ARF, appy, cholecystitis, CVA, Diverticulitis, Homicidal, Suicidal, threat to staff... and all critical care pts) @ -Low likelihood Disposition Clinical Impression: Rash, Scabies, Medication refill Disposition: HOME SELF-CARE Condition: Stable Instructions (If sedation given, give patient instructions): Scabies (ED) Additional Instructions: apply cream daily to the affected areas Please return to the nearest emergency department if worsening rash, shortness of breath develop Prescriptions: ARIPiprazole [Abilify] 5 mg PO DAILY #14 tab Permethrin 5% Cream [Elimite] 1 applic TOPICAL ONCE #60 gram oxyCODONE HCL/ACETAMINOPHEN [Percocet 10-325 mg] 1 tab PO Q6HR PRN 2 Days #8 tab PRN Reason: Pain Is patient prescribed a controlled substance at d/c from ED?: No Referrals: Albert Chavez MD [Primary Care Provider] - 1-2 days Time of Disposition: 07:58
[2023-07-09 08:07] VITALS: BP 114/72; PULSE 104; RESP 22
[2023-07-09 08:34] VITALS: TEMP 97.9
== END 2023-07-09 09:11 | disposition home or self-care (01) ==
LOC: EC 06:58
DX: B86 Scabies (principal); Z76.0 Encounter for issue of repeat prescription; E11.9 Type 2 diabetes mellitus without complications; I11.0 Hypertensive heart disease with heart failure; I50.9 Heart failure, unspecified; I25.10 Atherosclerotic heart disease of native coronary artery without angina pectoris; I25.2 Old myocardial infarction; I48.91 Unspecified atrial fibrillation; J44.9 Chronic obstructive pulmonary disease, unspecified; F41.9 Anxiety disorder, unspecified; F32.A Depression, unspecified; F14.90 Cocaine use, unspecified, uncomplicated; F17.200 Nicotine dependence, unspecified, uncomplicated; Z79.01 Long term (current) use of anticoagulants; Z79.84 Long term (current) use of oral hypoglycemic drugs; Z79.51 Long term (current) use of inhaled steroids; Z79.899 Other long term (current) drug therapy; Z88.0 Allergy status to penicillin; Z88.8 Allergy status to other drugs, medicaments and biological substances
CPT/HCPCS: 99282; 96372; J2930

== ENCOUNTER 2023-07-27 08:38 | Inpatient (IN) | payer OTHER ==
[2023-07-27] MEDS ORDERED: KETOROLAC 15 MG/ML 1 ML VIAL IVP STA (09:26)
[2023-07-27] MEDS ORDERED: MORPHINE SULFATE 2 MG/ML SYRINGE IVP STA (09:26)
--- NOTE | 2023-07-27 09:31 | ED ---
Extremity Problem HPI - General Chief complaint: Wound/Laceration Stated complaint: right leg infection Time Seen by Provider: 07/27/23 09:09 Source: patient, RN notes reviewed Mode of arrival: wheelchair Limitations: no limitations - History of Present Illness Initial comments: This is a 63-year-old male who presents to the emergency department for an i nfection to the right leg. States that it has been there for about 6 months, but seems to be worsening. Within the last couple of days in particular, it has gotten much more painful and he thinks that the wounds are also enlarging. He has open wounds to the front and back of the leg. Due to the progressive pain, states that he is now having difficulty walking. Denies any fevers or chills. This is draining clear fluid and he is trying to keep it bandaged. Not currently on antibiotics. He does not follow up with wound care. MD Complaint: extremity pain, extremity swelling - Related Data Home Medications Medication Instructions Recorded Confirmed Montelukast [Singulair] 10 mg PO DAILY@1200 01/12/18 07/27/23 Tamsulosin [Flomax] 0.4 mg PO DAILY@1200 11/08/21 07/27/23 rOPINIRole HCL [Requip] 4 mg PO HS 11/08/21 07/27/23 Cyclobenzaprine [Flexeril] 30 mg PO HS 11/24/21 07/27/23 Loratadine [Claritin] 10 mg PO DAILY@1200 11/24/21 07/27/23 Budesonide-Formot 160-4.5 Mcg 2 puff INHALATION RT-BID 04/11/22 07/27/23 [Symbicort 160-4.5 Mcg Inhaler] Empagliflozin [Jardiance] 10 mg PO DAILY@1200 04/11/22 07/27/23 Apixaban [Eliquis] 5 mg PO BID@0600,1800 05/13/22 07/27/23 Sacubitril/Valsartan [Entresto 24 1 tab PO BID@0600,1800 05/13/22 07/27/23 mg-26 mg Tablet] Atorvastatin [Lipitor] 20 mg PO HS@1800 02/28/23 07/27/23 Furosemide [Lasix] 40 mg PO BID@0600,1800 02/28/23 07/27/23 Tiotropium 2.5 Mcg/Puff [Spiriva 2 puff INHALATION RT-DAILY 02/28/23 07/27/23 Respimat 2.5 Mcg] Omeprazole [PriLOSEC] 20 mg PO DAILY@1200 06/27/23 07/27/23 Spironolactone [Aldactone] 25 mg PO DAILY@1200 06/27/23 07/27/23 ARIPiprazole [Abilify] 5 mg PO DAILY@0600 07/27/23 07/27/23 Latanoprost [Latanoprost 0.005%] 1 drop BOTH EYES HS 07/27/23 07/27/23 Nicotine 21Mg/24Hr Patch [Habitrol] 1 patch TRANSDERM DAILY 07/27/23 07/27/23 Super B Complex With Vitamin C 1 tab PO DAILY@1200 07/27/23 07/27/23 predniSONE [Deltasone] See Taper PO DIRECTED 07/27/23 07/27/23 Allergies Allergy/AdvReac Type Severity Reaction Status Date / Time amoxicillin trihydrate AdvReac Rapid Verified 07/27/23 14:59 [From Augmentin] Heart Rate potassium clavulanate AdvReac FELT LIKE Verified 07/27/23 14:59 [From Augmentin] HE WAS GOING TO PASS OUT FAST HEARTBEAT" pregabalin [From Lyrica] AdvReac Leg Verified 07/27/23 14:59 swelling venlafaxine [From Effexor] AdvReac Confusion Verified 07/27/23 15:25 Review of Systems ROS Statement: Those systems with pertinent positive or pertinent negative responses have been documented in the HPI. ROS Other: All systems not noted in ROS Statement are negative. Past Medical History Past Medical History: Atrial Fibrillation, Coronary Artery Disease (CAD), Heart Failure, COPD, Diabetes Mellitus, Eye Disorder, Fibromyalgia, Hypertension, Myocardial Infarction ([place]), Musculoskeletal Disorder, Osteoarthritis ([place]), Prostate Disorder, Vascular Disorder Additional Past Medical History / Comment(s): Chronic cough, hx pancreatitis, bilateral glaucoma, neuropathy bilateral feet, poor circulation to legs, varicose veins, RLS, hx BPH, colitis, gastritis, Alvarenga's esophagus, hx Shingles in 2013 with joint pain since, chronic low back pain, DDD. wound to right leg, Last Myocardial Infarction Date:: 09/02/16 History of Any Multi-Drug Resistant Organisms: None Reported Past Surgical History: Appendectomy, Cardiac Ablation, Heart Catheterization, Joint Replacement, Orthopedic Surgery, Prostate Surgery Additional Past Surgical History / Comment(s): Right knee arthroscopy, right knee replacement, EGD, colonoscopy, TURP, cardioversion. Past Anesthesia/Blood Transfusion Reactions: No Reported Reaction Additional Past Anesthesia/Blood Transfusion Reaction / Comment(s): No hx blood transfusion. Past Psychological History: Anxiety, Depression Smoking Status: Former smoker Past Alcohol Use History: Occasional Past Drug Use History: Cocaine - Past Family History Father Family Medical History: CVA/TIA, Hypertension Additional Family Medical History / Comment(s): Father at the age of 38yrs from HTN/CVA. He was an alcoholic. Mother Family Medical History: COPD, Diabetes Mellitus Additional Family Medical History / Comment(s): Mother of emphysema at the age of 74 yrs (2003), mom had hx of drinking and smoking. General Exam Limitations: no limitations General appearance: alert, in no apparent distress Head exam: Present: atraumatic, normocephalic, normal inspection Respiratory exam: Present: normal lung sounds bilaterally. Absent: respiratory distress, wheezes, rales, rhonchi, stridor Cardiovascular Exam: Present: regular rate, normal rhythm, normal heart sounds. Absent: systolic murmur, diastolic murmur, rubs, gallop, clicks Extremities exam: Present: other (The right lower extremity beginning inferior to the patella is diffusely erythematous, warm, and tender with an open ulceration on the anterior and posterior aspect draining clear serous fluid.) Neurological exam: Present: alert, oriented X3, CN II-XII intact Psychiatric exam: Present: normal affect, normal mood Course Vital Signs 07/27/23 07/27/23 07/27/23 08:56 13:52 14:00 Temperature 97.9 F 96.9 F L Pulse Rate 89 110 H Respiratory 18 18 Rate Blood Pressure 105/70 130/85 130/85 O2 Sat by Pulse 99 98 97 Oximetry 07/27/23 07/27/23 14:25 15:00 Temperature Pulse Rate 111 H 110 H Respiratory 18 18 Rate Blood Pressure 126/82 124/90 O2 Sat by Pulse 97 97 Oximetry Medical Decision Making - Medical Decision Making This is a 62-year-old male who presents to the emergency department for right leg pain and swelling with an open wound. Was pt. sent in by a medical professional or institution? @ -No Did you speak to anyone other than the patient for history? @ -No Did you review nursing and triage notes? @ -Yes, and I agree, it is accurate with regards to the patient's symptoms. Were old charts reviewed? @ -No Differential Diagnosis? @ -Differential Leg Pain: Leg fracture, leg sprain, DVT, PVD, arterial insufficiency, iliac artery aneurysm, cellulitis, compartment syndrome, tendinopathy, nerve entrapment, piriformis syndrome, osteoarthritis, rhabdomyolysis, myositis, cramping from an electrolyte imbalance, this is not meant to be an all inclusive list. EKG interpreted by me (3pts min.)? @ -Not obtained X-rays interpreted by me (1pt min.)? @ -X-ray of the right tib/fib obtained. My interpretation identifies no evidence of subcutaneous gas formation or osseous destruction. CT interpreted by me (1pt min.)? @ -Not obtained U/S interpreted by me (1pt. min.)? @ -Not obtained What testing was considered but not performed? (CT, X-rays, U/S, labs)? Why? @ -None What meds were considered but not given? Why? @ -None Did you discuss the management of the patient with other professionals? @ -Yes, Dr. Marie, who accepts the patient for admission. Did you reconcile home meds? @ -Yes Was smoking cessation discussed for >3mins.? @ -I discussed smoking cessation for greater than 3 minutes. The risk of smoking were discussed with the patient including but not limited to risks of cancer, stroke, coronary artery disease and COPD. Also discussed with patient were multiple methods of quitting smoking. Lastly we discussed the financial cost of smoking. Was critical care preformed (if so, how long)? @ -No Were there social determinants of health that impacted care today? How? (Homelessness, low income, unemployed, alcoholism, drug addiction, transportation, low edu. Level, literacy, decrease access to med. care, half-way, rehab)? @ -No Was there de-escalation of care discussed even if they declined? (Discuss DNR or withdrawal of care, Hospice)? @ -No What co-morbidities impacted this encounter? (DM, HTN, Smoking, COPD, CAD, Cancer, CVA, Hep., AIDS, mental health diagnosis, sleep apnea, morbid obesity)? @ -A-fib, CAD, DM, fibromyalgia, osteoarthritis, vascular disorder Was patient admitted / discharged? @ -Admitted. Lab work obtained revealing leukocytosis and was otherwise unr emarkable. X-ray of the right tib-fib obtained revealing no acute process. Physical exam demonstrates circumferential involvement of erythema, swelling, tenderness, and heat. He has open ulcerations to the front and back with significant active serous drainage. Patient also started to become consistently tachycardic. Given the circumferential involvement with progressive pain and the patient's multiple comorbidities, he was admitted to medicine for further management of right lower extremity cellulitis. Wound and blood cultures were obtained and he was started on vancomycin and cefepime. Undiagnosed new problem with uncertain prognosis? @ -None Drug Therapy requiring intensive monitoring for toxicity (Heparin, Nitro, Insulin, Cardizem)? @ -None Were any procedures done? @ -None Diagnosis/symptom? @ -Right lower extremity cellulitis Acute, or Chronic, or Acute on Chronic? @ -Chronic Uncomplicated (without systemic symptoms) or Complicated (systemic symptoms)? @ -Uncomplicated Side effects of treatment? @ -None Exacerbation, Progression, or Severe Exacerbation] @ -Progression Poses a threat to life or bodily function? @ -Yes This case was discussed in detail with the attending ED physician, Dr. Thompson. Presentation, findings, and treatment plan discussed in detail as well. - Lab Data Result diagrams: 07/27/23 09:38 07/27/23 09:38 Lab Results 07/27/23 07/27/23 07/27/23 Range/Units 09:38 09:38 09:38 WBC 12.7 H (3.8-10.6) k/uL RBC 3.69 L (4.30-5.90) m/uL Hgb 12.9 L (13.0-17.5) gm/dL Hct 38.0 L (39.0-53.0) % MCV 102.9 H (80.0-100.0) fL MCH 35.0 (25.0-35.0) pg MCHC 34.0 (31.0-37.0) g/dL RDW 13.8 (11.5-15.5) % Plt Count 450 (150-450) k/uL MPV 6.9 Neutrophils % 79 % Lymphocytes % 15 % Monocytes % 4 % Eosinophils % 1 % Basophils % 0 % Neutrophils # 10.1 H (1.3-7.7) k/uL Lymphocytes # 1.8 (1.0-4.8) k/uL Monocytes # 0.5 (0-1.0) k/uL Eosinophils # 0.1 (0-0.7) k/uL Basophils # 0.1 (0-0.2) k/uL Macrocytosis Slight Sodium 136 L (137-145) mmol/L Potassium 4.1 (3.5-5.1) mmol/L Chloride 101 (98-107) mmol/L Carbon Dioxide 24 (22-30) mmol/L Anion Gap 11 mmol/L BUN 40 H (9-20) mg/dL Creatinine 1.08 (0.66-1.25) mg/dL Est GFR (CKD-EPI)AfAm 84 (>60 ml/min/1.73 sqM) Est GFR (CKD-EPI)NonAf 73 (>60 ml/min/1.73 sqM) Glucose 137 H (74-99) mg/dL Plasma Lactic Acid Carlos Manuel 1.5 (0.7-2.0) mmol/L Calcium 9.3 (8.4-10.2) mg/dL Total Bilirubin 0.4 (0.2-1.3) mg/dL AST 34 (17-59) U/L ALT 50 H (4-49) U/L Alkaline Phosphatase 67 (38-126) U/L C-Reactive Protein <0.5 (<1.0) mg/dL NT-Pro-B Natriuret Pep pg/mL Total Protein 6.3 (6.3-8.2) g/dL Albumin 3.6 (3.5-5.0) g/dL 07/27/23 Range/Units 13:58 WBC (3.8-10.6) k/uL RBC (4.30-5.90) m/uL Hgb (13.0-17.5) gm/dL Hct (39.0-53.0) % MCV (80.0-100.0) fL MCH (25.0-35.0) pg MCHC (31.0-37.0) g/dL RDW (11.5-15.5) % Plt Count (150-450) k/uL MPV Neutrophils % % Lymphocytes % % Monocytes % % Eosinophils % % Basophils % % Neutrophils # (1.3-7.7) k/uL Lymphocytes # (1.0-4.8) k/uL Monocytes # (0-1.0) k/uL Eosinophils # (0-0.7) k/uL Basophils # (0-0.2) k/uL Macrocytosis Sodium (137-145) mmol/L Potassium (3.5-5.1) mmol/L Chloride (98-107) mmol/L Carbon Dioxide (22-30) mmol/L Anion Gap mmol/L BUN (9-20) mg/dL Creatinine (0.66-1.25) mg/dL Est GFR (CKD-EPI)AfAm (>60 ml/min/1.73 sqM) Est GFR (CKD-EPI)NonAf (>60 ml/min/1.73 sqM) Glucose (74-99) mg/dL Plasma Lactic Acid Carlos Manuel (0.7-2.0) mmol/L Calcium (8.4-10.2) mg/dL Total Bilirubin (0.2-1.3) mg/dL AST (17-59) U/L ALT (4-49) U/L Alkaline Phosphatase (38-126) U/L C-Reactive Protein (<1.0) mg/dL NT-Pro-B Natriuret Pep 1370 pg/mL Total Protein (6.3-8.2) g/dL Albumin (3.5-5.0) g/dL - Radiology Data Radiology results: report reviewed, image reviewed Disposition Clinical Impression: Cellulitis of right lower extremity, Nicotine dependence Disposition: ADMITTED IP TO THIS HOSP
[2023-07-27 09:50] LABS: Basophils # (A) 0.1 k/uL (0-0.2); Basophils % (A) 0 %; Eosinophils # (A) 0.1 k/uL (0-0.7); Eosinophils % (A) 1 %; HGB 12.9 gm/dL (13.0-17.5); Lymphocytes # (A) 1.8 k/uL (1.0-4.8); Lymphocytes % (A) 15 %; MCV 102.9 fL (80.0-100.0); Macrocytosis Slight; Mean Platelet Volume 6.9; Monocytes # (A) 0.5 k/uL (0-1.0); Monocytes % (A) 4 %; Neutrophils # (A) 10.1 k/uL (1.3-7.7); Neutrophils % (A) 79 %; Platelet Count 450 k/uL (150-450); RBC 3.69 m/uL (4.30-5.90); RDW 13.8 % (11.5-15.5); WBC 12.7 k/uL (3.8-10.6)
--- NOTE | 2023-07-27 10:18 | XR ---
EXAMINATION TYPE: XR tibia fibula RT DATE OF EXAM: 07/27/2023 CLINICAL HISTORY: pain TECHNIQUE: AP and lateral images of the right tibia and fibula are obtained. COMPARISON: None. FINDINGS: There is no acute fracture/dislocation evident. The joint spaces appear within normal lopez its. The overlying soft tissue appears unremarkable. IMPRESSION: There is no acute fracture or dislocation seen. ICD 10 NO FRACTURE, INITIAL EVALUATION
[2023-07-27 10:19] LABS: ALT 50 U/L (4-49); AST 34 U/L (17-59); African American GFR (CKD) 84 (>60 ml/min/1.73 sqM); Albumin 3.6 g/dL (3.5-5.0); Alkaline Phosphatase 67 U/L (38-126); Anion Gap 11 mmol/L; Blood Urea Nitrogen 40 mg/dL (9-20); Calcium 9.3 mg/dL (8.4-10.2); Carbon Dioxide 24 mmol/L (22-30); Chloride 101 mmol/L (98-107); Glucose 137 mg/dL (74-99); Non-African American GFR(CKD) 73 (>60 ml/min/1.73 sqM); Potassium 4.1 mmol/L (3.5-5.1); Sodium 136 mmol/L (137-145); Total Bilirubin 0.4 mg/dL (0.2-1.3); Total Protein 6.3 g/dL (6.3-8.2)
[2023-07-27 11:07] LABS: C Reactive Protein <0.5 mg/dL (<1.0)
[2023-07-27] MEDS ORDERED: VANCOMYCIN IV PER PHARMACY 1 EACH MISC MISCELLANE PRN (13:45)
[2023-07-27] MEDS ORDERED: VANCOMYCIN 1,750 MG in SODIUM CHLORIDE 0.9% 500 ML 500 ML IVPB STA (13:52)
[2023-07-27] MEDS ORDERED: oxyCODONE-APAP 10-325MG 1 EACH TAB PO STA (14:04)
[2023-07-27] MEDS: CEFEPIME 1 GM in SODIUM CHLORIDE 0.9% 50 ML IVPB SCH ×2 (14:05→21:41)
[2023-07-27] MEDS ORDERED: SODIUM CHLORIDE 0.9% 2,000 ML IV STA (14:09)
[2023-07-27] MEDS ORDERED: ACETAMINOPHEN TAB 325 MG TAB PO PRN (14:58)
[2023-07-27] MEDS ORDERED: ONDANSETRON 4 MG/2 ML VIAL IVP PRN (14:58)
[2023-07-27] MEDS ORDERED: NALOXONE 0.4 MG/ML 1 ML VIAL IV PRN (14:58)
[2023-07-27] MEDS: MORPHINE SULFATE 4 MG/ML SYRINGE IV PRN ×3 (15:59→23:59)
[2023-07-27] MEDS: ATORVASTATIN 20 MG TAB PO SCH (19:07)
[2023-07-27] MEDS: APIXABAN 5 MG TAB PO SCH (19:07)
[2023-07-27] MEDS: FUROSEMIDE 40 MG TAB PO SCH (19:07)
[2023-07-27] MEDS: SACUBITRIL/VALSARTAN 24 MG-26 MG TABLET PO SCH (19:08)
[2023-07-27] MEDS: HYDROcodone/APAP 5-325MG 1 EACH TAB PO PRN (19:11)
[2023-07-27] MEDS: IPRATROPIUM 0.5 MG/2.5 ML NEBU INHALATION SCH ×2 (19:59→20:33)
[2023-07-27] MEDS: SYMBICORT 160-4.5 MCG INHALER INHALATION SCH (20:45)
[2023-07-27 20:58] LABS: Glucose,Whole Blood 172 mg/dL (70-110)
[2023-07-27] MEDS: CYCLOBENZAPRINE 10 MG TAB PO SCH (21:40)
[2023-07-27] MEDS: LATANOPROST 0.005% OPHTH DROPS 2.5 ML BTL BOTH EYES SCH (21:41)
[2023-07-27] MEDS: rOPINIRole HCL 4 MG TABLET PO SCH (21:41)
[2023-07-28] MEDS: HYDROcodone/APAP 5-325MG 1 EACH TAB PO PRN ×4 (00:41→15:16)
[2023-07-28 03:49] LABS: Erythrocyte Sedimentation Rate 6 mm/Hr (0-20)
[2023-07-28] MEDS: VANCOMYCIN 1,750 MG in SODIUM CHLORIDE 0.9% 500 ML 500 ML IVPB SCH ×2 (04:02→17:16)
[2023-07-28] MEDS: MORPHINE SULFATE 4 MG/ML SYRINGE IV PRN ×5 (04:02→20:48)
[2023-07-28] MEDS: APIXABAN 5 MG TAB PO SCH ×2 (04:39→17:15)
[2023-07-28] MEDS: SACUBITRIL/VALSARTAN 24 MG-26 MG TABLET PO SCH ×2 (04:39→18:48)
[2023-07-28] MEDS: FUROSEMIDE 40 MG TAB PO SCH ×2 (04:39→17:16)
[2023-07-28] MEDS: CEFEPIME 1 GM in SODIUM CHLORIDE 0.9% 50 ML IVPB SCH ×3 (04:40→22:03)
[2023-07-28] MEDS: ARIPiprazole 5 MG TAB PO SCH (04:40)
[2023-07-28 05:42] LABS: Glucose,Whole Blood 119 mg/dL (70-110)
[2023-07-28 07:20] LABS: African American GFR (CKD) >90 (>60 ml/min/1.73 sqM); Non-African American GFR(CKD) >90 (>60 ml/min/1.73 sqM)
[2023-07-28] MEDS: NICOTINE 21MG/24HR PATCH TRANSDERM SCH ×2 (08:14→15:59)
--- NOTE | 2023-07-28 08:17 | P.CONS ---
History of Present Illness - Reason for Consult Consult date: 07/27/23 Right lower extremity cellulitis Requesting physician: Kayla Weston - Chief Complaint Nonhealing wound to the right posterior leg x few days - History of Present Illness Patient is a 63-year-old male with a past medical history significant for atrial fibrillation coronary disease diabetes mellitus hypertension osteomyelitis patient presenting to the hospital for evaluation of a nonhealing wound to the right posterior leg that apparently has been getting worse patient mention his symptom has been going on for almost 6 months now, patient attributing irritation to the right posterior leg that has started this ulceration with associated swelling and redness to the right lower extremity patient denies any falls manage patient has been complaining of pain to the right lower extremity with sharp in nature, moderate in intensity without any radiation, IV send the patient was evaluated on presentation to the hospital patient was afebrile no fever tachycardia subsequently patient was measured tachycardic but not hypotensive or hypoxic he did have marginal blood 0.7 with a left shift creatinine was 1.08 patient did have x-ray of the tibia-fibula no acu te fracture or dislocation patient was started on cefepime and vancomycin infectious disease was consulted for further management of antibiotic therapy Review of Systems positive point and negatives has been mentioned in the HPI, complete review of systems was performed and all other systems are negative Past Medical History Past Medical History: Atrial Fibrillation, Coronary Artery Disease (CAD), Heart Failure, COPD, Diabetes Mellitus, Eye Disorder, Fibromyalgia, Hypertension, Myocardial Infarction (ID), Musculoskeletal Disorder, Osteoarthritis (OA), Prostate Disorder, Vascular Disorder Additional Past Medical History / Comment(s): Chronic cough, hx pancreatitis, bilateral glaucoma, neuropathy bilateral feet, poor circulation to legs, varicose veins, RLS, hx BPH, colitis, gastritis, Alvarenga's esophagus, hx Shingles in 2013 with joint pain since, chronic low back pain, DDD. wound to right leg, Last Myocardial Infarction Date:: 09/02/16 History of Any Multi-Drug Resistant Organisms: None Reported Past Surgical History: Appendectomy, Cardiac Ablation, Heart Catheterization, Joint Replacement, Orthopedic Surgery, Prostate Surgery Additional Past Surgical History / Comment(s): Right knee arthroscopy, right knee replacement, EGD, colonoscopy, TURP, cardioversion. Past Anesthesia/Blood Transfusion Reactions: No Reported Reaction Additional Past Anesthesia/Blood Transfusion Reaction / Comm: No hx blood transfusion. Past Psychological History: Anxiety, Depression Smoking Status: Former smoker Past Alcohol Use History: Occasional Past Drug Use History: Cocaine - Past Family History Father Family Medical History: CVA/TIA, Hypertension Additional Family Medical History / Comment(s): Father at the age of 38yrs from HTN/CVA. He was an alcoholic. Mother Family Medical History: COPD, Diabetes Mellitus Additional Family Medical History / Comment(s): Mother of emphysema at the age of 74 yrs (2003), mom had hx of drinking and smoking. Medications and Allergies Home Medications Medication Instructions Recorded Confirmed Type Montelukast [Singulair] 10 mg PO DAILY@1200 01/12/18 07/27/23 History Tamsulosin [Flomax] 0.4 mg PO DAILY@1200 11/08/21 07/27/23 History rOPINIRole HCL [Requip] 4 mg PO HS 11/08/21 07/27/23 History Cyclobenzaprine [Flexeril] 30 mg PO HS 11/24/21 07/27/23 History Loratadine [Claritin] 10 mg PO DAILY@1200 11/24/21 07/27/23 History Budesonide-Formot 160-4.5 Mcg 2 puff INHALATION RT-BID 04/11/22 07/27/23 History [Symbicort 160-4.5 Mcg Inhaler] Empagliflozin [Jardiance] 10 mg PO DAILY@1200 04/11/22 07/27/23 History Apixaban [Eliquis] 5 mg PO BID@0600,1800 05/13/22 07/27/23 History Sacubitril/Valsartan [Entresto 24 1 tab PO BID@0600,1800 05/13/22 07/27/23 History mg-26 mg Tablet] Atorvastatin [Lipitor] 20 mg PO HS@1800 02/28/23 07/27/23 History Furosemide [Lasix] 40 mg PO BID@0600,1800 02/28/23 07/27/23 History Tiotropium 2.5 Mcg/Puff [Spiriva 2 puff INHALATION RT-DAILY 02/28/23 07/27/23 History Respimat 2.5 Mcg] Omeprazole [PriLOSEC] 20 mg PO DAILY@1200 06/27/23 07/27/23 History Spironolactone [Aldactone] 25 mg PO DAILY@1200 06/27/23 07/27/23 History ARIPiprazole [Abilify] 5 mg PO DAILY@0600 07/27/23 07/27/23 History Latanoprost [Latanoprost 0.005%] 1 drop BOTH EYES HS 07/27/23 07/27/23 History Nicotine 21Mg/24Hr Patch [Habitrol] 1 patch TRANSDERM DAILY 07/27/23 07/27/23 History Super B Complex With Vitamin C 1 tab PO DAILY@1200 07/27/23 07/27/23 History Cephalexin [Keflex] 500 mg PO Q8HR 7 Days #21 cap 07/31/23 Rx Ciprofloxacin HCl [Cipro] 500 mg PO BID 7 Days #14 tab 07/31/23 Rx oxyCODONE-APAP 5-325MG [Percocet 1 tab PO Q6HR PRN 3 Days #12 tab 07/31/23 Rx 5-325 mg] Allergies Allergy/AdvReac Type Severity Reaction Status Date / Time amoxicillin trihydrate AdvReac Rapid Verified 07/27/23 14:59 [From Augmentin] Heart Rate potassium clavulanate AdvReac FELT LIKE Verified 07/27/23 14:59 [From Augmentin] HE WAS GOING TO PASS OUT FAST HEARTBEAT" pregabalin [From Lyrica] AdvReac Leg Verified 07/27/23 14:59 swelling venlafaxine [From Effexor] AdvReac Confusion Verified 07/27/23 15:25 Physical Exam Vitals: Vital Signs Temp Pulse Resp BP Pulse Ox 07/27/23 15:00 110 H 18 124/90 97 07/27/23 14:25 111 H 18 126/82 97 07/27/23 14:00 130/85 97 07/27/23 13:52 96.9 F L 110 H 18 130/85 98 07/27/23 08:56 97.9 F 89 18 105/70 99 Intake and Output 07/27/23 07/27/23 07/27/23 06:59 14:59 22:59 Other: Weight 104.326 kg GENERAL DESCRIPTION: Middle-aged male lying in bed, no distress. No tachypnea or accessory muscle of respiration use. HEENT: Shows Pallor , no scleral icterus. Oral mucous membrane is dry. No pharyngeal erythema or thrush NECK: Trachea central, no thyromegaly. LUNGS: Unlabored breathing. Clear to auscultation anteriorly. No wheeze or crackle. HEART: S1, S2, regular rate and rhythm. No loud murmur ABDOMEN: Soft, no tenderness , guarding or rigidity, no organomegaly EXTREMITIES: Right posterior leg with an area of irritation and swelling and redness no foul-smelling drainage SKIN: No rash, no masses palpable. NEUROLOGICAL: The patient is awake, alert, oriented x3, mood and affect normal. Results CBC & Chem 7: 07/30/23 04:53 07/30/23 04:53 Labs: Abnormal Lab Results - Last 24 Hours (Table) 07/27/23 07/27/23 Range/Units 09:38 09:38 WBC 12.7 H (3.8-10.6) k/uL RBC 3.69 L (4.30-5.90) m/uL Hgb 12.9 L (13.0-17.5) gm/dL Hct 38.0 L (39.0-53.0) % MCV 102.9 H (80.0-100.0) fL Neutrophils # 10.1 H (1.3-7.7) k/uL Sodium 136 L (137-145) mmol/L BUN 40 H (9-20) mg/dL Glucose 137 H (74-99) mg/dL ALT 50 H (4-49) U/L Assessment and Plan (1) Cellulitis and abscess of right leg Status: Acute Code(s): L03.115 - CELLULITIS OF RIGHT LOWER LIMB; L02.415 - CUTANEOUS ABSCESS OF RIGHT LOWER LIMB SNOMED Code(s): 882678443 (2) Penicillin allergy Status: Acute Code(s): Z88.0 - ALLERGY STATUS TO PENICILLIN SNOMED Code(s): 29270527 (3) Leukocytosis Status: Acute Code(s): D72.829 - ELEVATED WHITE BLOOD CELL COUNT, UNSPECIFIED SNOMED Code(s): 569556934 Plan: 1patient was in the hospital with increasing pain swelling redness to the right lower extremity in this patient who did have evidence of venous disease with swelling and redness to the right lower extremity with a posterior ulceration but no significant slough tissue or foul-smelling drainage likely from gram- positive skin tarsha 2-patient with a penicillin allergy related about antibiotic safe to use 3-local culture-repeat blood antibiotic therapy 4-local wound care with a diagnosis of dressing followed by Michele wrap to keep the swelling down 5-continue with cefepime and vancomycin while waiting for the culture to finalize We will follow on clinical condition and cultures to further adjust medication if needed Thank you for this consultation we will follow the patient along with you Dictation was produced using [employer] dictation software. please excuse any grammatical, word or spelling errors. Time with Patient: Greater than 30
[2023-07-28] MEDS: SYMBICORT 160-4.5 MCG INHALER INHALATION SCH ×2 (08:37→20:27)
[2023-07-28] MEDS: IPRATROPIUM 0.5 MG/2.5 ML NEBU INHALATION SCH ×4 (08:37→20:27)
--- NOTE | 2023-07-28 10:46 | P.GSCN ---
History of Present Illness Consult date: 07/28/23 Reason for Consult: Non-healing wounds to right lower extremity Requesting physician: Kayla Weston History of present illness: This a 63-year-old male who presented to the emergency department yesterday with concerns of right lower extremity infection. Patient apparently has had wound to his right lower extremity that he said started out as more of a blister due to swelling in his lower extremities and ended up into the wound. He was concerned that the leg was becoming infected because it was increasing in re dness. Has a clear liquid drainage from it. Patient also recently diagnosed with scabies last week and reportedly was treated. He has a past medical history significant for alcohol abuse, liver disease, recurrent alcoholic pancreatitis, atrial fibrillation on Eliquis post cardiac ablation, coronary artery disease, heart failure, COPD, diabetes mellitus, fibromyalgia, hypertension, prostate disorder peripheral neuropathy, peripheral vascular disease, and chronic low back pain. Patient states he has not been seeing anybody for the wound on his leg. He has been pretty much just wrapping it and covering it with Kleenex. States it is painful to touch on that lower extremity and coming more painful with walking. Patient with leukocytosis on admission, has been afebrile. Patient denies any fevers or chills at home. He currently has scabs all over his body and is picking at them. X-ray to right lower extremity reports no acute fracture or dislocation seen. Overlying soft tissue appears unremarkable. Review of Systems A 14 point review systems was completed all pertinent positives and negatives as stated in the HPI. Past Medical History Past Medical History: Atrial Fibrillation, Coronary Artery Disease (CAD), Heart Failure, COPD, Diabetes Mellitus, Eye Disorder, Fibromyalgia, Hypertension, Myocardial Infarction (SC), Musculoskeletal Disorder, Osteoarthritis (OA), Prostate Disorder, Vascular Disorder Additional Past Medical History / Comment(s): Chronic cough, hx pancreatitis, bilateral glaucoma, neuropathy bilateral feet, poor circulation to legs, v aricose veins, RLS, hx BPH, colitis, gastritis, Alvarenga's esophagus, hx Shingles in 2013 with joint pain since, chronic low back pain, DDD. wound to right leg, Last Myocardial Infarction Date:: 09/02/16 History of Any Multi-Drug Resistant Organisms: None Reported Past Surgical History: Appendectomy, Cardiac Ablation, Heart Catheterization, Joint Replacement, Orthopedic Surgery, Prostate Surgery Additional Past Surgical History / Comment(s): Right knee arthroscopy, right knee replacement, EGD, colonoscopy, TURP, cardioversion. Past Anesthesia/Blood Transfusion Reactions: No Reported Reaction Additional Past Anesthesia/Blood Transfusion Reaction / Comm: No hx blood transfusion. Past Psychological History: Anxiety, Depression Smoking Status: Former smoker Past Alcohol Use History: Occasional Past Drug Use History: Cocaine - Past Family History Father Family Medical History: CVA/TIA, Hypertension Additional Family Medical History / Comment(s): Father at the age of 38yrs from HTN/CVA. He was an alcoholic. Mother Family Medical History: COPD, Diabetes Mellitus Additional Family Medical History / Comment(s): Mother of emphysema at the age of 74 yrs (2003), mom had hx of drinking and smoking. Medications and Allergies Home Medications Medication Instructions Recorded Confirmed Type Montelukast [Singulair] 10 mg PO DAILY@1200 01/12/18 07/27/23 History Tamsulosin [Flomax] 0.4 mg PO DAILY@1200 11/08/21 07/27/23 History rOPINIRole HCL [Requip] 4 mg PO HS 11/08/21 07/27/23 History Cyclobenzaprine [Flexeril] 30 mg PO HS 11/24/21 07/27/23 History Loratadine [Claritin] 10 mg PO DAILY@1200 11/24/21 07/27/23 History Budesonide-Formot 160-4.5 Mcg 2 puff INHALATION RT-BID 04/11/22 07/27/23 History [Symbicort 160-4.5 Mcg Inhaler] Empagliflozin [Jardiance] 10 mg PO DAILY@1200 04/11/22 07/27/23 History Apixaban [Eliquis] 5 mg PO BID@0600,1800 05/13/22 07/27/23 History Sacubitril/Valsartan [Entresto 24 1 tab PO BID@0600,1800 05/13/22 07/27/23 History mg-26 mg Tablet] Atorvastatin [Lipitor] 20 mg PO HS@1800 02/28/23 07/27/23 History Furosemide [Lasix] 40 mg PO BID@0600,1800 02/28/23 07/27/23 History Tiotropium 2.5 Mcg/Puff [Spiriva 2 puff INHALATION RT-DAILY 02/28/23 07/27/23 History Respimat 2.5 Mcg] Omeprazole [PriLOSEC] 20 mg PO DAILY@1200 06/27/23 07/27/23 History Spironolactone [Aldactone] 25 mg PO DAILY@1200 06/27/23 07/27/23 History ARIPiprazole [Abilify] 5 mg PO DAILY@0600 07/27/23 07/27/23 History Latanoprost [Latanoprost 0.005%] 1 drop BOTH EYES HS 07/27/23 07/27/23 History Nicotine 21Mg/24Hr Patch [Habitrol] 1 patch TRANSDERM DAILY 07/27/23 07/27/23 History Super B Complex With Vitamin C 1 tab PO DAILY@1200 07/27/23 07/27/23 History predniSONE [Deltasone] See Taper PO DIRECTED 07/27/23 07/27/23 History Allergies Allergy/AdvReac Type Severity Reaction Status Date / Time amoxicillin trihydrate AdvReac Rapid Verified 07/27/23 14:59 [From Augmentin] Heart Rate potassium clavulanate AdvReac FELT LIKE Verified 07/27/23 14:59 [From Augmentin] HE WAS GOING TO PASS OUT FAST HEARTBEAT" pregabalin [From Lyrica] AdvReac Leg Verified 07/27/23 14:59 swelling venlafaxine [From Effexor] AdvReac Confusion Verified 07/27/23 15:25 Surgical - Exam Vital Signs Temp Pulse Resp BP Pulse Ox 97.9 F 89 18 105/70 99 07/27/23 08:56 07/27/23 08:56 07/27/23 08:56 07/27/23 08:56 07/27/23 08:56 General appearance: The patient is alert, oriented, appears in no acute distress. HET: Head is normocephalic and atraumatic. Neck: Supple. Heart: Irregular. Lungs: Equal expansion, normal respiratory effort. Abdomen: Soft, nontender, nondistended. Extremities: Bilateral lower extremity swelling. Palpable bilateral femoral, PT and DP pulses. Cellulitis to right lower extremity. Patient has a small diabetic/sebastian ulcer on his hawley with clear drainage, as well as superficial ulcer on his calf with clear drainage. No malodor. Skin: Patient with rash/scabs over bilateral upper and lower extremities. Neurological: No focal deficits. Strength and sensation are grossly intact. Results - Labs 07/27/23 09:38 07/28/23 06:13 Abnormal Lab Results - Last 24 Hours (Table) 07/27/23 07/27/23 07/27/23 Range/Units 09:38 09:38 20:56 WBC 12.7 H (3.8-10.6) k/uL RBC 3.69 L (4.30-5.90) m/uL Hgb 12.9 L (13.0-17.5) gm/dL Hct 38.0 L (39.0-53.0) % MCV 102.9 H (80.0-100.0) fL Neutrophils # 10.1 H (1.3-7.7) k/uL Sodium 136 L (137-145) mmol/L BUN 40 H (9-20) mg/dL Glucose 137 H (74-99) mg/dL POC Glucose (mg/dL) 172 H (70-110) mg/dL ALT 50 H (4-49) U/L 07/28/23 Range/Units 05:41 WBC (3.8-10.6) k/uL RBC (4.30-5.90) m/uL Hgb (13.0-17.5) gm/dL Hct (39.0-53.0) % MCV (80.0-100.0) fL Neutrophils # (1.3-7.7) k/uL Sodium (137-145) mmol/L BUN (9-20) mg/dL Glucose (74-99) mg/dL POC Glucose (mg/dL) 119 H (70-110) mg/dL ALT (4-49) U/L Diabetes panel 07/27/23 07/28/23 Range/Units 09:38 06:13 Sodium 136 L (137-145) mmol/L Potassium 4.1 (3.5-5.1) mmol/L Chloride 101 (98-107) mmol/L Carbon Dioxide 24 (22-30) mmol/L BUN 40 H (9-20) mg/dL Creatinine 1.08 0.89 (0.66-1.25) mg/dL Glucose 137 H (74-99) mg/dL Calcium 9.3 (8.4-10.2) mg/dL AST 34 (17-59) U/L ALT 50 H (4-49) U/L Alkaline Phosphatase 67 (38-126) U/L Total Protein 6.3 (6.3-8.2) g/dL Albumin 3.6 (3.5-5.0) g/dL Calcium panel 07/27/23 Range/Units 09:38 Calcium 9.3 (8.4-10.2) mg/dL Albumin 3.6 (3.5-5.0) g/dL Pituitary panel 07/27/23 07/28/23 Range/Units 09:38 06:13 Sodium 136 L (137-145) mmol/L Potassium 4.1 (3.5-5.1) mmol/L Chloride 101 (98-107) mmol/L Carbon Dioxide 24 (22-30) mmol/L BUN 40 H (9-20) mg/dL Creatinine 1.08 0.89 (0.66-1.25) mg/dL Glucose 137 H (74-99) mg/dL Calcium 9.3 (8.4-10.2) mg/dL Adrenal panel 07/27/23 07/28/23 Range/Units 09:38 06:13 Sodium 136 L (137-145) mmol/L Potassium 4.1 (3.5-5.1) mmol/L Chloride 101 (98-107) mmol/L Carbon Dioxide 24 (22-30) mmol/L BUN 40 H (9-20) mg/dL Creatinine 1.08 0.89 (0.66-1.25) mg/dL Glucose 137 H (74-99) mg/dL Calcium 9.3 (8.4-10.2) mg/dL Total Bilirubin 0.4 (0.2-1.3) mg/dL AST 34 (17-59) U/L ALT 50 H (4-49) U/L Alkaline Phosphatase 67 (38-126) U/L Total Protein 6.3 (6.3-8.2) g/dL Albumin 3.6 (3.5-5.0) g/dL Assessment and Plan Assessment: 1. Right lower extremity diabetic/venous ulcer 2. Lower extremity swelling 3. Pruritic rash with scabs upper and lower extremities, reported recent scabies with treatment 4. Diabetes mellitus 5. Coronary artery disease 6. Atrial fibrillation on eliquis and status post ablation 7. Peripheral neuropathy 8. Alcohol abuse 9. Former smoker 10. Venous insufficiency Plan: 1. Patient has easily palpable bilateral femoral, PT and DP pulses. Wound should heal With proper wound care. No surgical intervention recommended at this time. 2. Continue local wound care and antibiotics per recommendations from infectious disease. 3. Recommend outpatient wound care, continue to follow with infectious disease or consider [facility] wound care clinic 4. Discuss with patient importance of proper wound care, follow-up and discussed risk of infection with picking his skin and scabs. 5. Rest of medical care per primary medical team. Thank you for this consultation, we will sign off at this time. The impression and plan of care has been dictated as directed. I performed a history and examination of this patient, discussed the same with the dictator. I agree with the dictator's note ,documented as a scribe. Any additional findings or plans will be noted.
[2023-07-28 11:11] LABS: Glucose,Whole Blood 132 mg/dL (70-110)
[2023-07-28] MEDS ORDERED: [UNRECOGNIZED DRUG - MIXTURE] PO SCH (12:00)
[2023-07-28] MEDS: DAPAGLIFLOZIN PROPANEDIOL 5 MG TABLET PO SCH (12:11)
[2023-07-28] MEDS: LORATADINE 10 MG TAB PO SCH (12:11)
[2023-07-28] MEDS: SPIRONOLACTONE 25 MG TAB PO SCH (12:11)
[2023-07-28] MEDS: PANTOPRAZOLE 40 MG TABLET PO SCH (12:11)
[2023-07-28] MEDS: TAMSULOSIN 0.4 MG CAP.ER.24H PO SCH (12:11)
[2023-07-28] MEDS: MONTELUKAST 10 MG TAB PO SCH (12:11)
--- NOTE | 2023-07-28 12:23 | P.HPIM ---
History of Present Illness H&P Date: 07/28/23 History of present illness; patient is a 63-year-old gentleman with past medical history significant for COPD, atrial fibrillation, CHF who presented to the ER for right lower extremity wound. Patient stated that he has been dealing with this wound for the last 6 months, wound is located on the posterior part of the right leg, initially started as a small ulcer that continued progress, associated with swelling and redness. Patient also complaining of intermittent pain in right leg. Denies any fever or chills. There was no complain of any trauma to the leg. Denies any nausea, vomiting or abdominal pain. Denies any chest pain or shortness of breath. Because of this nonhealing right leg wound patient came to the ER Initial lab work done in the ER showed WBC 12.7, hemoglobin 12.9, platelet count 450, sodium 136, potassium 4.1, BUNs 40, 31.08, glucose 137, X-ray right tibia and fibula showed no fracture or dislocation Patient admitted to internal medicine service REVIEW OF SYSTEMS: CONSTITUTIONAL: No fever, no malaise, no fatigue. HEENT: No recent visual problems or hearing problems. Denied any sore throat. CARDIOVASCULAR: No chest pain, orthopnea, PND, no palpitations, no syncope. PULMONARY: No shortness of breath, no cough, no hemoptysis. GASTROINTESTINAL: No diarrhea, no nausea, no vomiting, no abdominal pain. NEUROLOGICAL: No headaches, no weakness, no numbness. HEMATOLOGICAL: Denies any bleeding or petechiae. GENITOURINARY: Denies any burning micturition, frequency, or urgency. MUSCULOSKELETAL/RHEUMATOLOGICAL: As mentioned above ENDOCRINE: Denies any polyuria or polydipsia. The rest of the 14-point review of systems is negative. PHYSICAL EXAMINATION: GENERAL: The patient is alert and oriented x3, not in any acute distress. Well developed, well nourished. HEENT: Pupils are round and equally reacting to light. EOMI. No scleral icterus. No conjunctival pallor. Normocephalic, atraumatic. No pharyngeal erythema. No thyromegaly. CARDIOVASCULAR: S1 and S2 present. No murmurs, rubs, or gallops. PULMONARY: Chest is clear to auscultation, no wheezing or crackles. ABDOMEN: Soft, nontender, nondistended, normoactive bowel sounds. No palpable organomegaly. MUSCULOSKELETAL: Ulcer seen posterior part of right leg EXTREMITIES: No cyanosis, clubbing, or pedal edema. NEUROLOGICAL: Gross neurological examination did not reveal any focal deficits. SKIN: No rashes. Assessment and plan Right lower extremity cellulitis Right lower extremity venous ulcer COPD Paroxysmal atrial flutter fibrillation a prior history of ablation -chronic congestive heart failure exacerbation from systolic and diastolic dysfunction EF 45 % chronic pancreatitis from alcoholism: Alcohol-induced cirrhosis: Chronic nicotine dependence, cigarette smoker -Chronic fibromyalgia -Essential hypertension Primary osteoarthritis, multiple joints bilaterally Alcoholic peripheral neuropathy restless leg syndrome Alvarenga's esophagus Monitor vital signs Monitor CBC Monitor CMP Follow-up on blood cultures Follow-up on wound cultures Continue wound care Continue IV cefepime and vancomycin Consult ID Consult vascular surgery Labs and medication were reviewed.. Continue same treatment. Continue with symptomatic treatment. Resume home medication. Monitor labs and vitals. DVT and GI prophylaxis. Further recommendations as per clinical course of the patient Dictation was produced using [employer] dictation software. please excuse any grammatical, word or spelling errors. Past Medical History Past Medical History: Atrial Fibrillation, Coronary Artery Disease (CAD), Heart Failure, COPD, Diabetes Mellitus, Eye Disorder, Fibromyalgia, Hypertension, Myocardial Infarction (GA), Musculoskeletal Disorder, Osteoarthritis (OA), Prostate Disorder, Vascular Disorder Additional Past Medical History / Comment(s): Chronic cough, hx pancreatitis, bilateral glaucoma, neuropathy bilateral feet, poor circulation to legs, varicose veins, RLS, hx BPH, colitis, gastritis, Alvarenga's esophagus, hx Shingles in 2013 with joint pain since, chronic low back pain, DDD. wound to right leg, Last Myocardial Infarction Date:: 09/02/16 History of Any Multi-Drug Resistant Organisms: None Reported Past Surgical History: Appendectomy, Cardiac Ablation, Heart Catheterization, Joint Replacement, Orthopedic Surgery, Prostate Surgery Additional Past Surgical History / Comment(s): Right knee arthroscopy, right knee replacement, EGD, colonoscopy, TURP, cardioversion. Past Anesthesia/Blood Transfusion Reactions: No Reported Reaction Additional Past Anesthesia/Blood Transfusion Reaction / Comment(s): No hx blood transfusion. Past Psychological History: Anxiety, Depression Smoking Status: Former smoker Past Alcohol Use History: Occasional Past Drug Use History: Cocaine - Past Family History Father Family Medical History: CVA/TIA, Hypertension Additional Family Medical History / Comment(s): Father at the age of 38yrs from HTN/CVA. He was an alcoholic. Mother Family Medical History: COPD, Diabetes Mellitus Additional Family Medical History / Comment(s): Mother of emphysema at the age of 74 yrs (2003), mom had hx of drinking and smoking. Medications and Allergies Home Medications Medication Instructions Recorded Confirmed Type Montelukast [Singulair] 10 mg PO DAILY@1200 01/12/18 07/27/23 History Tamsulosin [Flomax] 0.4 mg PO DAILY@1200 11/08/21 07/27/23 History rOPINIRole HCL [Requip] 4 mg PO HS 11/08/21 07/27/23 History Cyclobenzaprine [Flexeril] 30 mg PO HS 11/24/21 07/27/23 History Loratadine [Claritin] 10 mg PO DAILY@1200 11/24/21 07/27/23 History Budesonide-Formot 160-4.5 Mcg 2 puff INHALATION RT-BID 04/11/22 07/27/23 History [Symbicort 160-4.5 Mcg Inhaler] Empagliflozin [Jardiance] 10 mg PO DAILY@1200 04/11/22 07/27/23 History Apixaban [Eliquis] 5 mg PO BID@0600,1800 05/13/22 07/27/23 History Sacubitril/Valsartan [Entresto 24 1 tab PO BID@0600,1800 05/13/22 07/27/23 History mg-26 mg Tablet] Atorvastatin [Lipitor] 20 mg PO HS@1800 02/28/23 07/27/23 History Furosemide [Lasix] 40 mg PO BID@0600,1800 02/28/23 07/27/23 History Tiotropium 2.5 Mcg/Puff [Spiriva 2 puff INHALATION RT-DAILY 02/28/23 07/27/23 History Respimat 2.5 Mcg] Omeprazole [PriLOSEC] 20 mg PO DAILY@1200 06/27/23 07/27/23 History Spironolactone [Aldactone] 25 mg PO DAILY@1200 06/27/23 07/27/23 History ARIPiprazole [Abilify] 5 mg PO DAILY@0600 07/27/23 07/27/23 History Latanoprost [Latanoprost 0.005%] 1 drop BOTH EYES HS 07/27/23 07/27/23 History Nicotine 21Mg/24Hr Patch [Habitrol] 1 patch TRANSDERM DAILY 07/27/23 07/27/23 History Super B Complex With Vitamin C 1 tab PO DAILY@1200 07/27/23 07/27/23 History predniSONE [Deltasone] See Taper PO DIRECTED 07/27/23 07/27/23 History Allergies Allergy/AdvReac Type Severity Reaction Status Date / Time amoxicillin trihydrate AdvReac Rapid Verified 07/27/23 14:59 [From Augmentin] Heart Rate potassium clavulanate AdvReac FELT LIKE Verified 07/27/23 14:59 [From Augmentin] HE WAS GOING TO PASS OUT FAST HEARTBEAT" pregabalin [From Lyrica] AdvReac Leg Verified 07/27/23 14:59 swelling venlafaxine [From Effexor] AdvReac Confusion Verified 07/27/23 15:25 Physical Exam Vitals: Vital Signs Temp Pulse Pulse Resp BP BP Pulse Ox 07/28/23 08:48 102 H 07/28/23 08:37 102 H 07/28/23 07:20 97.5 F L 107 H 17 127/78 93 L 07/28/23 00:23 97.8 F 98 19 136/81 96 07/27/23 21:00 98.6 F 107 H 20 133/66 98 07/27/23 20:07 104 H 07/27/23 19:59 107 H 07/27/23 19:05 91 18 109/77 96 07/27/23 19:00 94 18 123/78 07/27/23 18:00 112/76 07/27/23 17:00 120/77 07/27/23 16:00 142/88 07/27/23 15:00 110 H 18 124/90 97 07/27/23 14:25 111 H 18 126/82 97 07/27/23 14:00 130/85 97 07/27/23 13:52 96.9 F L 110 H 18 130/85 98 Intake and Output 07/27/23 07/28/23 07/28/23 22:59 06:59 14:59 Intake Total 100 Balance 100 Intake: Intake, IV Titration 100 Amount Cefepime 1 gm In Sodium 100 Chloride 0.9% 50 ml @ 12. 5 mls/hr IVPB Q8H [facility] Rx# :[id number] Other: # Voids 0 Weight 104.326 kg Results CBC & Chem 7: 07/27/23 09:38 07/28/23 06:13 Labs: Abnormal Lab Results - Last 24 Hours (Table) 07/27/23 07/27/23 07/27/23 Range/Units 09:38 09:38 20:56 WBC 12.7 H (3.8-10.6) k/uL RBC 3.69 L (4.30-5.90) m/uL Hgb 12.9 L (13.0-17.5) gm/dL Hct 38.0 L (39.0-53.0) % MCV 102.9 H (80.0-100.0) fL Neutrophils # 10.1 H (1.3-7.7) k/uL Sodium 136 L (137-145) mmol/L BUN 40 H (9-20) mg/dL Glucose 137 H (74-99) mg/dL POC Glucose (mg/dL) 172 H (70-110) mg/dL ALT 50 H (4-49) U/L 07/28/23 Range/Units 05:41 WBC (3.8-10.6) k/uL RBC (4.30-5.90) m/uL Hgb (13.0-17.5) gm/dL Hct (39.0-53.0) % MCV (80.0-100.0) fL Neutrophils # (1.3-7.7) k/uL Sodium (137-145) mmol/L BUN (9-20) mg/dL Glucose (74-99) mg/dL POC Glucose (mg/dL) 119 H (70-110) mg/dL ALT (4-49) U/L Thrombosis Risk Factor Assmnt - Choose All That Apply Each Factor Represents 1 point: Acute GA, Heart failure (<1month), Swollen legs (current), Varicose veins Each Risk Factor Represents 2 Points: Age 61-74 years Thrombosis Risk Factor Assessment Total Risk Factor Score: 6 Thrombosis Risk Factor Assessment Level: High Risk
--- NOTE | 2023-07-28 12:42 | US ---
EXAMINATION TYPE: US venous doppler duplex LE DATE OF EXAM: 07/28/2023 9:28 AM COMPARISON: 08/21/2020 CLINICAL INDICATION: Male, 63 years old with history of swelling, elevated d-dimer; No redness or swe lling. Right lower leg wound. On blood thinners. Hx of left pop DVT. SIDE PERFORMED: Bilateral TECHNIQUE: The lower extremity deep venous system is examined utilizing real time linear array sonog miguel a with graded compression, doppler sonography and color-flow sonography. VESSELS IMAGED: Common Femoral Vein Deep Femoral Vein Greater Saphenous Vein * Femoral Vein Popliteal Vein Small Saphenous Vein * Proximal Calf Veins (* superficial vessels) Right Leg: Negative for DVT Left Leg: Negative for DVT IMPRESSION: Grayscale, color doppler, spectral doppler imaging performed of the deep veins of the lo wer extremities. There is normal flow, compressibility, vascular waveforms.
--- NOTE | 2023-07-28 16:32 | P.PN ---
Subjective Progress Note Date: 07/28/23 Principal diagnosis: Reason for follow-up is right lower extremity wound and cellulitis Patient is a 63-year-old male with a past medical history significant for atrial fibrillation coronary disease diabetes mellitus hypertension osteomyelitis patient presenting to the hospital for evaluation of a nonhealing wound to the right posterior leg that apparently has been going on for the last few months admitted to hospital with worsening wound infection and cellulitis. On today's evaluation that is 07/28/2023, the patient denies having any fever or any chills patient is breathing comfortably on room air denies any chest pain or shortness with he did have some chronic cough no worsening no nausea vomiting present worsening pain to the right posterior leg wound area and no worsening drainage. Patient did have white count of 12.7 as of yesterday creatinine 0.89 cultures are currently pending Objective - Vital Signs Vital signs: Vital Signs Temp 97.5 F L 07/28/23 07:20 Pulse 98 07/28/23 12:08 Resp 17 07/28/23 07:20 BP 127/78 07/28/23 07:20 Pulse Ox 93 L 07/28/23 07:20 FiO2 Intake & Output 07/27/23 07/28/23 07/28/23 18:59 06:59 18:59 Intake Total 100 Balance 100 Weight 104.326 kg 104.326 kg Intake: Intake, IV Titration 100 Amount Cefepime 1 gm In Sodium 100 Chloride 0.9% 50 ml @ 12. 5 mls/hr IVPB Q8H [facility] Rx# :[id number] Other: Voiding Method Toilet # Voids 0 - Exam GENERAL DESCRIPTION: A middle-age male up in the bed in no distress RESPIRATORY SYSTEM: Unlabored breathing , clear to auscultation anteriorly HEART: S1 S2 regular rate and rhythm , ABDOMEN: Soft , no tenderness EXTREMITIES: Right lower extremity swelling redness slightly decreased no foul- smelling drainage - Labs CBC & Chem 7: 07/27/23 09:38 07/28/23 06:13 Labs: Abnormal Lab Results - Last 24 Hours (Table) 07/27/23 07/28/23 07/28/23 Range/Units 20:56 05:41 11:10 POC Glucose (mg/dL) 172 H 119 H 132 H (70-110) mg/dL Assessment and Plan (1) Leg wound, right Current Visit: Yes Status: Acute Code(s): S81.801A - UNSPECIFIED OPEN WOUND, RIGHT LOWER LEG, INITIAL ENCOUNTER SNOMED Code(s): 557405111 (2) Penicillin allergy Current Visit: Yes Status: Acute Code(s): Z88.0 - ALLERGY STATUS TO PENICILLIN SNOMED Code(s): 93595483 (3) Cellulitis of right lower extremity Current Visit: Yes Status: Acute Code(s): L03.115 - CELLULITIS OF RIGHT LOWER LIMB SNOMED Code(s): 70878757819517150 (4) Leukocytosis Current Visit: No Status: Acute Code(s): D72.829 - ELEVATED WHITE BLOOD CELL COUNT, UNSPECIFIED SNOMED Code(s): 318777098 Plan: 1patient was in the hospital with increasing pain swelling redness to the right lower extremity in this patient who did have evidence of venous disease with swelling and redness to the right lower extremity with a posterior ulceration but no significant slough tissue or foul-smelling drainage likely from gram-positive skin tarsha 2-patient with a penicillin allergy that will limit the number of antibiotics safe to use. 3blood and local cultures are currently pending. 4we will continue the patient cefepime and vancomycin while waiting for the culture to finalize patient mention he was unable to tolerate Aquacel silver dressing and compression Dictation was produced using [employer] dictation software. please excuse any grammatical, word or spelling errors.
[2023-07-28 16:38] LABS: Glucose,Whole Blood 115 mg/dL (70-110)
[2023-07-28] MEDS: ATORVASTATIN 20 MG TAB PO SCH (17:16)
[2023-07-28] MEDS: HYDROcodone/APAP 10-325MG 1 EACH TAB PO PRN ×2 (19:16→23:46)
[2023-07-28 19:30] LABS: Glucose,Whole Blood 157 mg/dL (70-110)
[2023-07-28] MEDS: CYCLOBENZAPRINE 10 MG TAB PO SCH (20:48)
[2023-07-28] MEDS: LATANOPROST 0.005% OPHTH DROPS 2.5 ML BTL BOTH EYES SCH (20:51)
[2023-07-28] MEDS: rOPINIRole HCL 4 MG TABLET PO SCH (22:02)
[2023-07-29] MEDS: MORPHINE SULFATE 4 MG/ML SYRINGE IV PRN ×6 (01:51→23:41)
[2023-07-29] MEDS ORDERED: VANCOMYCIN TROUGH DUE 1 EACH MISC MISCELLANE ONE (04:00)
[2023-07-29] MEDS: HYDROcodone/APAP 10-325MG 1 EACH TAB PO PRN ×5 (04:01→21:02)
[2023-07-29 05:31] LABS: Glucose,Whole Blood 110 mg/dL (70-110)
[2023-07-29] MEDS: FUROSEMIDE 40 MG TAB PO SCH ×2 (05:43→17:05)
[2023-07-29] MEDS: VANCOMYCIN 1,750 MG in SODIUM CHLORIDE 0.9% 500 ML 500 ML IVPB SCH ×2 (05:43→17:05)
[2023-07-29] MEDS: CEFEPIME 1 GM in SODIUM CHLORIDE 0.9% 50 ML IVPB SCH ×3 (05:43→21:01)
[2023-07-29] MEDS: APIXABAN 5 MG TAB PO SCH ×2 (05:43→17:05)
[2023-07-29] MEDS: ARIPiprazole 5 MG TAB PO SCH (06:20)
[2023-07-29] MEDS: SACUBITRIL/VALSARTAN 24 MG-26 MG TABLET PO SCH ×2 (06:20→17:05)
[2023-07-29 06:25] LABS: African American GFR (CKD) >90 (>60 ml/min/1.73 sqM); Non-African American GFR(CKD) >90 (>60 ml/min/1.73 sqM)
[2023-07-29] MEDS: IPRATROPIUM 0.5 MG/2.5 ML NEBU INHALATION SCH ×4 (08:03→18:15)
[2023-07-29] MEDS: SYMBICORT 160-4.5 MCG INHALER INHALATION SCH ×2 (08:03→18:15)
[2023-07-29] MEDS: NICOTINE 21MG/24HR PATCH TRANSDERM SCH (08:17)
[2023-07-29 11:21] LABS: Glucose,Whole Blood 103 mg/dL (70-110)
--- NOTE | 2023-07-29 13:23 | P.PN ---
Subjective Progress Note Date: 07/29/23 Principal diagnosis: Reason for follow-up is right lower extremity wound and cellulitis Patient is a 63-year-old male with a past medical history significant for atrial fibrillation coronary disease diabetes mellitus hypertension osteomyelitis patient presenting to the hospital for evaluation of a nonhealing wound to the right posterior leg that apparently has been going on for the last few months admitted to hospital with worsening wound infection and cellulitis. On today's evaluation that is 07/29/2023, the patient remains to be afebrile, patient is breathing comfortably on room air , the patient denies any chest pain or shortness with he did have some chronic cough but no sputum production, the patient denies nausea vomiting present worsening pain to the right posterior leg wound area and no worsening drainage. Patient did have white count of 12.7 as of 07/27/2020 creatinine 0.82 cultures are currently pending Objective - Vital Signs Vital signs: Vital Signs Temp 97.6 F 07/29/23 06:43 Pulse 100 07/29/23 11:25 Resp 19 07/29/23 06:43 BP 125/62 07/29/23 06:43 Pulse Ox 97 07/29/23 06:43 FiO2 Intake & Output 07/28/23 07/29/23 07/29/23 18:59 06:59 18:59 Other: Voiding Method Toilet Toilet # Voids 3 3 - Exam GENERAL DESCRIPTION: A middle-age male up in the bed in no distress RESPIRATORY SYSTEM: Unlabored breathing , clear to auscultation anteriorly HEART: S1 S2 regular rate and rhythm , ABDOMEN: Soft , no tenderness EXTREMITIES: Right lower extremity swelling redness slightly decreased no foul- smelling drainage - Labs CBC & Chem 7: 07/27/23 09:38 07/29/23 05:19 Labs: Abnormal Lab Results - Last 24 Hours (Table) 07/28/23 07/28/23 Range/Units 16:37 19:18 POC Glucose (mg/dL) 115 H 157 H (70-110) mg/dL Microbiology - Last 24 Hours (Table) 07/27/23 13:58 Gram Stain - Preliminary Leg - Right Wound Culture - Preliminary Gram Neg Bacilli 07/27/23 11:00 Blood Culture - Preliminary Blood 07/27/23 11:18 Blood Culture - Preliminary Blood Assessment and Plan (1) Leg wound, right Current Visit: Yes Status: Acute Code(s): S81.801A - UNSPECIFIED OPEN WOUND, RIGHT LOWER LEG, INITIAL ENCOUNTER SNOMED Code(s): 926792482 (2) Penicillin allergy Current Visit: Yes Status: Acute Code(s): Z88.0 - ALLERGY STATUS TO PENICILLIN SNOMED Code(s): 31207038 (3) Cellulitis of right lower extremity Current Visit: Yes Status: Acute Code(s): L03.115 - CELLULITIS OF RIGHT LOWER LIMB SNOMED Code(s): 78827202822898638 (4) Leukocytosis Current Visit: No Status: Acute Code(s): D72.829 - ELEVATED WHITE BLOOD CELL COUNT, UNSPECIFIED SNOMED Code(s): 053916081 Plan: 1patient was in the hospital with increasing pain swelling redness to the right lower extremity in this patient who did have evidence of venous disease with swelling and redness to the right lower extremity with a posterior ulceration but no significant slough tissue or foul-smelling drainage likely from gram- positive skin tarsha 2-patient with a penicillin allergy that will limit the number of antibiotics safe to use. 3blood and local cultures are currently pending. 4patient did have some clinical improvement and we will continue with cefepime and vancomycin while waiting for the culture to finalize and monitor clinical course closely Dictation was produced using [employer] dictation software. please excuse any grammatical, word or spelling errors. Time with Patient: Less than 30
--- NOTE | 2023-07-29 13:33 | P.PN ---
Subjective Progress Note Date: 07/29/23 patient is a 63-year-old gentleman with past medical history significant for COPD, atrial fibrillation, CHF who presented to the ER for right lower extremity wound. Patient stated that he has been dealing with this wound for the last 6 months, wound is located on the posterior part of the right leg, initially started as a small ulcer that continued progress, associated with swelling and redness. Patient also complaining of intermittent pain in right leg. Denies any fever or chills. There was no complain of any trauma to the leg. Denies any nausea, vomiting or abdominal pain. Denies any chest pain or shortness of breath. Because of this nonhealing right leg wound patient came to the ER Initial lab work done in the ER showed WBC 12.7, hemoglobin 12.9, platelet count 450, sodium 136, potassium 4.1, BUNs 40, 31.08, glucose 137, X-ray right tibia and fibula showed no fracture or dislocation Patient admitted to internal medicine service 07/29. Patient seen and examined. States pain in his right leg has improved. Denies any lethargy or weakness. REVIEW OF SYSTEMS: CONSTITUTIONAL: No fever, no malaise,. CARDIOVASCULAR: No chest pain, no palpitations, no syncope. PULMONARY: No shortness of breath, no cough, GASTROINTESTINAL: No diarrhea, no nausea, no vomiting, no abdominal pain. NEUROLOGICAL: No headaches, no weakness, PHYSICAL EXAMINATION: GENERAL: The patient is alert and oriented x3, not in any acute distress. Well developed, well nourished. HEENT: Pupils are round and equally reacting to light. EOMI. No scleral icterus. No conjunctival pallor. Normocephalic, atraumatic. No pharyngeal erythema. No thyromegaly. CARDIOVASCULAR: S1 and S2 present. No murmurs, rubs, or gallops. PULMONARY: Chest is clear to auscultation, no wheezing or crackles. ABDOMEN: Soft, nontender, nondistended, normoactive bowel sounds. No palpable organomegaly. MUSCULOSKELETAL: Ulcer seen posterior part of right leg EXTREMITIES: 1+ pitting edema lower extremities bilaterally NEUROLOGICAL: Gross neurological examination did not reveal any focal deficits. SKIN: No rashes. Assessment and plan Right lower extremity cellulitis Right lower extremity venous ulcer COPD Paroxysmal atrial flutter fibrillation a prior history of ablation -chronic congestive heart failure exacerbation from systolic and diastolic dysfunction EF 45 % chronic pancreatitis from alcoholism: Alcohol-induced cirrhosis: Chronic nicotine dependence, cigarette smoker -Chronic fibromyalgia -Essential hypertension Primary osteoarthritis, multiple joints bilaterally Alcoholic peripheral neuropathy restless leg syndrome Alvarenga's esophagus Monitor vital signs Monitor CBC Monitor CMP Follow-up on blood cultures Follow-up on wound cultures Continue wound care Continue IV cefepime and vancomycin ID following Vascular surgery evaluated the patient, recommended no surgical intervention, recommending continuation of IV antibiotics In regards to hypertension, continue Aldactone In regard to CHF, continue enteresto, Lasix, Aldactone Regards to hyperlipidemia continue Lipitor Labs and medication were reviewed.. Continue same treatment. Continue with symptomatic treatment. Resume home medication. Monitor labs and vitals. DVT and GI prophylaxis. Further recommendations as per clinical course of the patient Dictation was produced using [employer] dictation software. please excuse any grammatical, word or spelling errors. Objective - Vital Signs Vital signs: Vital Signs Temp 98.4 F 07/29/23 01:00 Pulse 96 07/29/23 08:16 Resp 18 07/29/23 01:00 BP 108/68 07/29/23 01:00 Pulse Ox 96 07/29/23 01:00 FiO2 Intake & Output 07/28/23 07/29/23 07/29/23 18:59 06:59 18:59 Other: Voiding Method Toilet Toilet # Voids 3 3 - Labs CBC & Chem 7: 07/27/23 09:38 07/29/23 05:19 Labs: Abnormal Lab Results - Last 24 Hours (Table) 07/28/23 07/28/23 07/28/23 Range/Units 11:10 16:37 19:18 POC Glucose (mg/dL) 132 H 115 H 157 H (70-110) mg/dL Microbiology - Last 24 Hours (Table) 07/27/23 11:00 Blood Culture - Preliminary Blood 07/27/23 11:18 Blood Culture - Preliminary Blood 07/27/23 13:58 Gram Stain - Preliminary Leg - Right
[2023-07-29] MEDS: PANTOPRAZOLE 40 MG TABLET PO SCH (14:28)
[2023-07-29] MEDS: LORATADINE 10 MG TAB PO SCH (14:28)
[2023-07-29] MEDS: DAPAGLIFLOZIN PROPANEDIOL 5 MG TABLET PO SCH (14:28)
[2023-07-29] MEDS: TAMSULOSIN 0.4 MG CAP.ER.24H PO SCH (14:28)
[2023-07-29] MEDS: MONTELUKAST 10 MG TAB PO SCH (14:28)
[2023-07-29] MEDS: SPIRONOLACTONE 25 MG TAB PO SCH (14:28)
[2023-07-29 17:04] LABS: Glucose,Whole Blood 86 mg/dL (70-110)
[2023-07-29] MEDS: ATORVASTATIN 20 MG TAB PO SCH (17:05)
[2023-07-29 20:57] LABS: Glucose,Whole Blood 151 mg/dL (70-110)
[2023-07-29] MEDS: LATANOPROST 0.005% OPHTH DROPS 2.5 ML BTL BOTH EYES SCH (21:01)
[2023-07-29] MEDS: CYCLOBENZAPRINE 10 MG TAB PO SCH (21:01)
[2023-07-29] MEDS: rOPINIRole HCL 4 MG TABLET PO SCH (21:01)
[2023-07-30] MEDS: HYDROcodone/APAP 10-325MG 1 EACH TAB PO PRN ×6 (00:51→21:54)
[2023-07-30] MEDS: MORPHINE SULFATE 4 MG/ML SYRINGE IV PRN ×5 (04:02→20:24)
[2023-07-30] MEDS: SACUBITRIL/VALSARTAN 24 MG-26 MG TABLET PO SCH ×2 (05:07→16:54)
[2023-07-30] MEDS: ARIPiprazole 5 MG TAB PO SCH (05:07)
[2023-07-30] MEDS: APIXABAN 5 MG TAB PO SCH ×2 (05:07→16:54)
[2023-07-30] MEDS: VANCOMYCIN 1,750 MG in SODIUM CHLORIDE 0.9% 500 ML 500 ML IVPB SCH (05:07)
[2023-07-30] MEDS: FUROSEMIDE 40 MG TAB PO SCH ×2 (05:07→16:54)
[2023-07-30] MEDS: CEFEPIME 1 GM in SODIUM CHLORIDE 0.9% 50 ML IVPB SCH ×3 (05:08→21:54)
[2023-07-30 05:16] LABS: Glucose,Whole Blood 129 mg/dL (70-110)
[2023-07-30 05:41] LABS: ALT 40 U/L (4-49); AST 28 U/L (17-59); African American GFR (CKD) >90 (>60 ml/min/1.73 sqM); Albumin 3.4 g/dL (3.5-5.0); Albumin/Globulin Ratio 1.4; Alkaline Phosphatase 59 U/L (38-126); Anion Gap 8 mmol/L; Blood Urea Nitrogen 34 mg/dL (9-20); Calcium 9.2 mg/dL (8.4-10.2); Carbon Dioxide 22 mmol/L (22-30); Chloride 110 mmol/L (98-107); Globulin 2.5 g/dL; Glucose 108 mg/dL (74-99); Non-African American GFR(CKD) >90 (>60 ml/min/1.73 sqM); Sodium 140 mmol/L (137-145); Total Bilirubin 0.5 mg/dL (0.2-1.3); Total Protein 5.9 g/dL (6.3-8.2)
[2023-07-30] MEDS: NICOTINE 21MG/24HR PATCH TRANSDERM SCH (08:02)
[2023-07-30] MEDS ORDERED: polyethylene glycoL 3350 17 GM POWD.PACK PO PRN (08:08)
[2023-07-30] MEDS: SYMBICORT 160-4.5 MCG INHALER INHALATION SCH ×2 (08:15→20:39)
[2023-07-30] MEDS: IPRATROPIUM 0.5 MG/2.5 ML NEBU INHALATION SCH ×4 (08:15→20:44)
[2023-07-30] MEDS ORDERED: PERMETHRIN 5% CREAM 60 GM TUBE TOPICAL ONE (10:30)
[2023-07-30 11:05] LABS: Glucose,Whole Blood 200 mg/dL (70-110)
[2023-07-30 11:51] LABS: Basophils # (A) 0.04 X 10*3/uL (0.00-0.10); Basophils % (A) 0.4 %; Eosinophils % (A) 3.2 %; HGB 11.1 g/dL (13.0-17.0); Lymphocytes # (A) 1.46 X 10*3/uL (0.90-5.00); Lymphocytes % (A) 15.6 %; MCH 33.9 pg (27.0-32.0); MCHC 32.6 g/dL (32.0-37.0); Mean Platelet Volume 8.7 FL (9.5-12.2); Monocytes % (A) 7.5 %; NRBC Per 100 WBC 0 X 10*3/uL (0.00-0.01); Neutrophils # (A) 6.77 X 10*3/uL (1.80-7.70); Neutrophils % (A) 72.4 %; Platelet Count 344 X 10*3/uL (140-440); RBC 3.27 X 10*6/uL (4.40-5.60); RDW 14.5 % (11.5-14.5); WBC 9.35 X 10*3/uL (4.50-10.00)
[2023-07-30] MEDS: LORATADINE 10 MG TAB PO SCH (12:39)
[2023-07-30] MEDS: DAPAGLIFLOZIN PROPANEDIOL 5 MG TABLET PO SCH (12:39)
[2023-07-30] MEDS: SPIRONOLACTONE 25 MG TAB PO SCH (12:39)
[2023-07-30] MEDS: PANTOPRAZOLE 40 MG TABLET PO SCH (12:39)
[2023-07-30] MEDS: TAMSULOSIN 0.4 MG CAP.ER.24H PO SCH (12:39)
[2023-07-30] MEDS: MONTELUKAST 10 MG TAB PO SCH (12:40)
--- NOTE | 2023-07-30 12:56 | P.PN ---
Subjective Progress Note Date: 07/30/23 patient is a 63-year-old gentleman with past medical history significant for COPD, atrial fibrillation, CHF who presented to the ER for right lower extremity wound. Patient stated that he has been dealing with this wound for the last 6 months, wound is located on the posterior part of the right leg, initially started as a small ulcer that continued progress, associated with swelling and redness. Patient also complaining of intermittent pain in right leg. Denies any fever or chills. There was no complain of any trauma to the leg. Denies any nausea, vomiting or abdominal pain. Denies any chest pain or shortness of breath. Because of this nonhealing right leg wound patient came to the ER Initial lab work done in the ER showed WBC 12.7, hemoglobin 12.9, platelet count 450, sodium 136, potassium 4.1, BUNs 40, 31.08, glucose 137, X-ray right tibia and fibula showed no fracture or dislocation Patient admitted to internal medicine service 07/29. Patient seen and examined. States pain in his right leg has improved. Denies any lethargy or weakness. 07/30. Patient seen and examined. Patient history of scabies, was treated with permethrin in outpatient settings, complaining of itching on his arms and legs. REVIEW OF SYSTEMS: CONSTITUTIONAL: No fever, no malaise,. CARDIOVASCULAR: No chest pain, no palpitations, no syncope. PULMONARY: No shortness of breath, no cough, GASTROINTESTINAL: No diarrhea, no nausea, no vomiting, no abdominal pain. NEUROLOGICAL: No headaches, no weakness, PHYSICAL EXAMINATION: GENERAL: The patient is alert and oriented x3, not in any acute distress. Well developed, well nourished. HEENT: Pupils are round and equally reacting to light. EOMI. No scleral icterus. No conjunctival pallor. Normocephalic, atraumatic. No pharyngeal erythema. No thyromegaly. CARDIOVASCULAR: S1 and S2 present. No murmurs, rubs, or gallops. PULMONARY: Chest is clear to auscultation, no wheezing or crackles. ABDOMEN: Soft, nontender, nondistended, normoactive bowel sounds. No palpable organomegaly. MUSCULOSKELETAL: Ulcer seen posterior part of right leg EXTREMITIES: 1+ pitting edema lower extremities bilaterally NEUROLOGICAL: Gross neurological examination did not reveal any focal deficits. SKIN: Small reddish macules seen on the arms, rash is not characteristic of scabies Assessment and plan Right lower extremity cellulitis Right lower extremity venous ulcer COPD Paroxysmal atrial flutter fibrillation a prior history of ablation -chronic congestive heart failure exacerbation from systolic and diastolic dysfunction EF 45 % chronic pancreatitis from alcoholism: Alcohol-induced cirrhosis: Chronic nicotine dependence, cigarette smoker -Chronic fibromyalgia -Essential hypertension Primary osteoarthritis, multiple joints bilaterally Alcoholic peripheral neuropathy restless leg syndrome Alvarenga's esophagus History of scabies Monitor vital signs Monitor CBC Monitor CMP Follow-up on blood cultures Follow-up on wound cultures Continue wound care Continue IV cefepime and vancomycin ID following Vascular surgery evaluated the patient, recommended no surgical intervention, recommending continuation of IV antibiotics Re: Rash, started permethrin for now, doubt scabies In regards to hypertension, continue Aldactone In regard to CHF, continue enteresto, Lasix, Aldactone Regards to hyperlipidemia continue Lipitor Labs and medication were reviewed.. Continue same treatment. Continue with symptomatic treatment. Resume home medication. Monitor labs and vitals. DVT and GI prophylaxis. Further recommendations as per clinical course of the patient Dictation was produced using [employer] dictation software. please excuse any grammatical, word or spelling errors. Objective - Vital Signs Vital signs: Vital Signs Temp 97.6 F 07/30/23 07:03 Pulse 100 07/30/23 07:03 Resp 21 07/30/23 07:03 BP 111/64 07/30/23 07:03 Pulse Ox 97 07/30/23 07:03 FiO2 Intake & Output 07/29/23 07/30/23 07/30/23 18:59 06:59 18:59 Other: Voiding Method Toilet Toilet # Voids 3 3 - Labs CBC & Chem 7: 07/30/23 04:53 07/30/23 04:53 Labs: Abnormal Lab Results - Last 24 Hours (Table) 07/29/23 07/30/23 07/30/23 Range/Units 20:55 04:53 04:53 RBC 3.27 L (4.40-5.60) X 10*6/uL Hgb 11.1 L (13.0-17.0) g/dL Hct 34.0 L (39.6-50.0) % MCV 104.0 H (80.0-97.0) FL MCH 33.9 H (27.0-32.0) pg MPV 8.7 L (9.5-12.2) FL Immature Gran # 0.08 H (0.00-0.04) X 10*3/uL Chloride 110 H (98-107) mmol/L BUN 34 H (9-20) mg/dL Glucose 108 H (74-99) mg/dL POC Glucose (mg/dL) 151 H (70-110) mg/dL Total Protein 5.9 L (6.3-8.2) g/dL Albumin 3.4 L (3.5-5.0) g/dL 07/30/23 07/30/23 Range/Units 05:15 11:04 RBC (4.40-5.60) X 10*6/uL Hgb (13.0-17.0) g/dL Hct (39.6-50.0) % MCV (80.0-97.0) FL MCH (27.0-32.0) pg MPV (9.5-12.2) FL Immature Gran # (0.00-0.04) X 10*3/uL Chloride (98-107) mmol/L BUN (9-20) mg/dL Glucose (74-99) mg/dL POC Glucose (mg/dL) 129 H 200 H (70-110) mg/dL Total Protein (6.3-8.2) g/dL Albumin (3.5-5.0) g/dL Microbiology - Last 24 Hours (Table) 07/27/23 13:58 Gram Stain - Preliminary Leg - Right Wound Culture - Preliminary Serratia marcescens 07/27/23 11:00 Blood Culture - Preliminary Blood 07/27/23 11:18 Blood Culture - Preliminary Blood
[2023-07-30] MEDS: ATORVASTATIN 20 MG TAB PO SCH (16:55)
[2023-07-30 16:56] LABS: Glucose,Whole Blood 105 mg/dL (70-110)
[2023-07-30] MEDS: CYCLOBENZAPRINE 10 MG TAB PO SCH (18:45)
[2023-07-30 20:08] LABS: Glucose,Whole Blood 251 mg/dL (70-110)
[2023-07-30] MEDS: rOPINIRole HCL 4 MG TABLET PO SCH (20:24)
[2023-07-30] MEDS: LATANOPROST 0.005% OPHTH DROPS 2.5 ML BTL BOTH EYES SCH (20:25)
[2023-07-31 00:18] VITALS: RESP 18
[2023-07-31] MEDS: MORPHINE SULFATE 4 MG/ML SYRINGE IV PRN ×3 (00:53→13:07)
[2023-07-31] MEDS: HYDROcodone/APAP 10-325MG 1 EACH TAB PO PRN ×3 (02:13→12:07)
[2023-07-31 05:19] LABS: Glucose,Whole Blood 107 mg/dL (70-110)
[2023-07-31] MEDS: APIXABAN 5 MG TAB PO SCH (06:08)
[2023-07-31] MEDS: FUROSEMIDE 40 MG TAB PO SCH (06:08)
[2023-07-31] MEDS: ARIPiprazole 5 MG TAB PO SCH (06:08)
[2023-07-31] MEDS: SACUBITRIL/VALSARTAN 24 MG-26 MG TABLET PO SCH (06:08)
[2023-07-31] MEDS: CEFEPIME 1 GM in SODIUM CHLORIDE 0.9% 50 ML IVPB SCH ×2 (06:09→13:07)
[2023-07-31] MEDS: NICOTINE 21MG/24HR PATCH TRANSDERM SCH (08:54)
[2023-07-31] MEDS: IPRATROPIUM 0.5 MG/2.5 ML NEBU INHALATION SCH ×3 (09:10→16:12)
[2023-07-31] MEDS: SYMBICORT 160-4.5 MCG INHALER INHALATION SCH (09:11)
[2023-07-31 12:02] LABS: Glucose,Whole Blood 106 mg/dL (70-110)
[2023-07-31] MEDS: DAPAGLIFLOZIN PROPANEDIOL 5 MG TABLET PO SCH (12:07)
[2023-07-31] MEDS: SPIRONOLACTONE 25 MG TAB PO SCH (12:07)
[2023-07-31] MEDS: LORATADINE 10 MG TAB PO SCH (12:07)
[2023-07-31] MEDS: TAMSULOSIN 0.4 MG CAP.ER.24H PO SCH (12:07)
[2023-07-31] MEDS: PANTOPRAZOLE 40 MG TABLET PO SCH (12:07)
[2023-07-31] MEDS: MONTELUKAST 10 MG TAB PO SCH (12:07)
--- NOTE | 2023-07-31 12:35 | P.PN ---
Subjective Progress Note Date: 07/30/23 Principal diagnosis: Reason for follow-up is right lower extremity wound and cellulitis Patient is a 63-year-old male with a past medical history significant for atrial fibrillation coronary disease diabetes mellitus hypertension osteomyelitis patient presenting to the hospital for evaluation of a nonhealing wound to the right posterior leg that apparently has been going on for the last few months admitted to hospital with worsening wound infection and cellulitis. On today's evaluation that is 07/30/2023, the patient denies having any fever or any chills, the patient is breathing comfortably on room air without need for oxygen, the patient denies having any chest pain or cough and no sputum production, patient denies nausea vomiting or any diarrhea, and no abdominal pain, the patient is not lower extremity swelling and redness has decreased Patient did have white count has normalized to 9.35, creatinine 0.90 local culture currently growing Serratia marcescens's Objective - Vital Signs Vital signs: Vital Signs Temp 97.6 F 07/30/23 07:03 Pulse 100 07/30/23 07:03 Resp 21 07/30/23 07:03 BP 111/64 07/30/23 07:03 Pulse Ox 97 07/30/23 07:03 FiO2 Intake & Output 07/29/23 07/30/23 07/30/23 18:59 06:59 18:59 Other: Voiding Method Toilet Toilet # Voids 3 3 - Exam GENERAL DESCRIPTION: A middle-age male up in the bed in no distress RESPIRATORY SYSTEM: Unlabored breathing , clear to auscultation anteriorly HEART: S1 S2 regular rate and rhythm , ABDOMEN: Soft , no tenderness EXTREMITIES: Right lower extremity swelling redness slightly decreased no foul- smelling drainage - Labs CBC & Chem 7: 07/30/23 04:53 07/30/23 04:53 Labs: Abnormal Lab Results - Last 24 Hours (Table) 07/29/23 07/30/23 07/30/23 Range/Units 20:55 04:53 04:53 RBC 3.27 L (4.40-5.60) X 10*6/uL Hgb 11.1 L (13.0-17.0) g/dL Hct 34.0 L (39.6-50.0) % MCV 104.0 H (80.0-97.0) FL MCH 33.9 H (27.0-32.0) pg MPV 8.7 L (9.5-12.2) FL Immature Gran # 0.08 H (0.00-0.04) X 10*3/uL Chloride 110 H (98-107) mmol/L BUN 34 H (9-20) mg/dL Glucose 108 H (74-99) mg/dL POC Glucose (mg/dL) 151 H (70-110) mg/dL Total Protein 5.9 L (6.3-8.2) g/dL Albumin 3.4 L (3.5-5.0) g/dL 07/30/23 07/30/23 Range/Units 05:15 11:04 RBC (4.40-5.60) X 10*6/uL Hgb (13.0-17.0) g/dL Hct (39.6-50.0) % MCV (80.0-97.0) FL MCH (27.0-32.0) pg MPV (9.5-12.2) FL Immature Gran # (0.00-0.04) X 10*3/uL Chloride (98-107) mmol/L BUN (9-20) mg/dL Glucose (74-99) mg/dL POC Glucose (mg/dL) 129 H 200 H (70-110) mg/dL Total Protein (6.3-8.2) g/dL Albumin (3.5-5.0) g/dL Microbiology - Last 24 Hours (Table) 07/27/23 13:58 Gram Stain - Preliminary Leg - Right Wound Culture - Preliminary Serratia marcescens 07/27/23 11:00 Blood Culture - Preliminary Blood 07/27/23 11:18 Blood Culture - Preliminary Blood Assessment and Plan (1) Leg wound, right Current Visit: Yes Status: Acute Code(s): S81.801A - UNSPECIFIED OPEN WOUND, RIGHT LOWER LEG, INITIAL ENCOUNTER SNOMED Code(s): 819996016 (2) Penicillin allergy Current Visit: Yes Status: Acute Code(s): Z88.0 - ALLERGY STATUS TO PENICILLIN SNOMED Code(s): 72222655 (3) Cellulitis of right lower extremity Current Visit: Yes Status: Acute Code(s): L03.115 - CELLULITIS OF RIGHT LOWER LIMB SNOMED Code(s): 61330289804336942 (4) Leukocytosis Current Visit: No Status: Acute Code(s): D72.829 - ELEVATED WHITE BLOOD CELL COUNT, UNSPECIFIED SNOMED Code(s): 579831915 Plan: 1patient was in the hospital with increasing pain swelling redness to the right lower extremity in this patient who did have evidence of venous disease with swelling and redness to the right lower extremity with a posterior ulceration but no significant slough tissue or foul-smelling drainage likely from gram-positive skin tarsha 2-patient with a penicillin allergy that will limit the number of antibiotics safe to use. 3blood culture has been no growth and local cultures are currently growing Serratia marcescens 4patient did have some clinical improvement and we will continue with cefepime with a plan to finish therapy with oral antibiotics Dictation was produced using [employer] dictation software. please excuse any grammatical, word or spelling errors.
--- NOTE | 2023-07-31 12:36 | P.PN ---
Subjective Progress Note Date: 07/31/23 Principal diagnosis: Reason for follow-up is right lower extremity wound and cellulitis Patient is a 63-year-old male with a past medical history significant for atrial fibrillation coronary disease diabetes mellitus hypertension osteomyelitis patient presenting to the hospital for evaluation of a nonhealing wound to the right posterior leg that apparently has been going on for the last few months admitted to hospital with worsening wound infection and cellulitis. On today's evaluation that is 07/31/2023, the patient denies any fever or any chills, patient is breathing comfortably on room air without need for supplemental oxygen, the patient denies any chest pain or shortness with he did have some chronic cough but no sputum production, the patient denies nausea vomiting , patient pain to the right posterior leg wound area has decreased in intensity and no worsening drainage. Patient did have white count of 9.35 and a creatinine 0.90 as of yesterday local culture growing MSSA and Serratia marcescens Objective - Vital Signs Vital signs: Vital Signs Temp 97.3 F L 07/31/23 07:00 Pulse 95 07/31/23 07:00 Resp 18 07/31/23 07:00 BP 118/76 07/31/23 07:00 Pulse Ox 96 07/31/23 07:00 FiO2 Intake & Output 07/30/23 07/31/23 07/31/23 18:59 06:59 18:59 Other: Voiding Method Toilet Toilet # Voids 4 2 - Exam GENERAL DESCRIPTION: A middle-age male up in the bed in no distress RESPIRATORY SYSTEM: Unlabored breathing , clear to auscultation anteriorly HEART: S1 S2 regular rate and rhythm , ABDOMEN: Soft , no tenderness EXTREMITIES: Right lower extremity swelling redness has decreased in intensity - Labs CBC & Chem 7: 07/30/23 04:53 07/30/23 04:53 Labs: Abnormal Lab Results - Last 24 Hours (Table) 07/30/23 Range/Units 20:07 POC Glucose (mg/dL) 251 H (70-110) mg/dL Microbiology - Last 24 Hours (Table) 07/27/23 13:58 Gram Stain - Final Leg - Right Wound Culture - Final Serratia marcescens Staphylococcus aureus 07/27/23 11:00 Blood Culture - Preliminary Blood 07/27/23 11:18 Blood Culture - Preliminary Blood 07/27/23 13:58 Anaerobic Culture - Preliminary Leg - Right Assessment and Plan (1) Leg wound, right Current Visit: Yes Status: Acute Code(s): S81.801A - UNSPECIFIED OPEN WOUND, RIGHT LOWER LEG, INITIAL ENCOUNTER SNOMED Code(s): 674103418 (2) Penicillin allergy Current Visit: Yes Status: Acute Code(s): Z88.0 - ALLERGY STATUS TO PENICILLIN SNOMED Code(s): 68041440 (3) Cellulitis of right lower extremity Current Visit: Yes Status: Acute Code(s): L03.115 - CELLULITIS OF RIGHT LOWER LIMB SNOMED Code(s): 43945742984521455 (4) Leukocytosis Current Visit: No Status: Acute Code(s): D72.829 - ELEVATED WHITE BLOOD CELL COUNT, UNSPECIFIED SNOMED Code(s): 282233808 Plan: 1patient was in the hospital with increasing pain swelling redness to the right lower extremity in this patient who did have evidence of venous disease with swelling and redness to the right lower extremity with a posterior ulceration bu t no significant slough tissue or foul-smelling drainage likely from gram- positive skin tarsha 2-patient with a penicillin allergy that will limit the number of antibiotics safe to use. 3blood culture has been no growth and local cultures are currently growing Serratia marcescens as well as MSSA 4patient did have some clinical improvement and we will continue with cefepime with a plan to finish therapy with oral Cipro and Keflex 10 days Dictation was produced using [employer] dictation software. please excuse any grammatical, word or spelling errors. Time with Patient: Less than 30
[2023-07-31 16:27] VITALS: BP 100/58; PULSE 105; TEMP 98.2
--- NOTE | 2023-08-04 13:42 | CDI ---
Documentation Clarification Form Date: 08/04/2023 01:35:33 PM From: Annabella Trinh RN, CCDS Email: [email or web address] Admit Date: 07/27/2023 03:07:00 PM Patient Name: Torsten Herrera Visit Number: [id number] Discharge Date: 07/31/2023 04:50:00 PM ATTENTION: The Clinical Documentation Specialists (CDI) and [facility] Coding Staff appreciate your assistance in clarifying documentation. Please respond to the clarification below the line at the bottom and electronically sign. The CDI & [facility] staff will review the response and follow-up if needed. Please note: Queries are made part of the Legal Health Record. If you have any questions, please contact the author of this message via ITS. Dr. Otis Marie The patient had cellulitis, tachycardia and elevated white count. Based on this information and the findings below, is there an additional diagnosis that is clinically appropriate for this patient? History/Risk Factors: CHF, HTN, A fib and wound to right leg for 6 months. Presents with swelling, redness and pain to the leg. Admitted with right lower extremity cellulitis. Clinical Indicators: ED: "He has open ulcerations to the front and back with significant active serous drainage." H&P: "wound is located on the posterior part of the right leg, initially started as a small ulcer that continued to progress, associated with swelling and redness." 07/27 WBC 12.7 07/27 Blood cultures: no growth 07/27 right leg wound culture: staph aureus 07/27 Vital signs: HR [phone] Treatment: 07/31 ID: "local cultures are currently growing Serratia Marcescens as well as MSSA. Patient did have some clinical improvement and we will continue with Cefepime with a plan to finish therapy with oral Cipro and Keflex 10 days." Antibiotics: IV Vancomycin 1750mg 07/27-07/30; IV Cefepime 1gm Q8H 07/27-07/31 IV Bolus: 2L IV bolus on 07/27 Is there an additional diagnosis that is clinically appropriate for this patient? [ x ] Sepsis due to MSSA, present on admission [ ] No additional diagnosis [ ] Other, please specify [ ] Unable to determine SIRS Criteria: 2 or more of the following may indicate SIRS Temperature < 96.8F (36C) or > 101.0F (38.3C) Heart Rate > 90 bpm Respiratory Rate > 20 breaths/min or PaCO2 < 32 mmHg White Blood Cell Count > 12,000 or < 4,000 cells/mm3 or > 10% bands MTDD
== END 2023-07-31 16:50 | disposition home or self-care (01) | DRG 720 ==
LOC: EC 08:38 → 4SSUR 15:07
PROVIDERS: ADMIT Internal Medicine; ATTEND Internal Medicine
DX: A41.01 Sepsis due to Methicillin susceptible Staphylococcus aureus (principal); E11.628 Type 2 diabetes mellitus with other skin complications; E11.42 Type 2 diabetes mellitus with diabetic polyneuropathy; E11.51 Type 2 diabetes mellitus with diabetic peripheral angiopathy without gangrene; E11.69 Type 2 diabetes mellitus with other specified complication; B95.61 Methicillin susceptible Staphylococcus aureus infection as the cause of diseases classified elsewhere; L03.115 Cellulitis of right lower limb; F17.210 Nicotine dependence, cigarettes, uncomplicated; F32.A Depression, unspecified; F41.9 Anxiety disorder, unspecified; G25.81 Restless legs syndrome; G62.1 Alcoholic polyneuropathy; I11.0 Hypertensive heart disease with heart failure; I25.10 Atherosclerotic heart disease of native coronary artery without angina pectoris; I25.2 Old myocardial infarction; I48.91 Unspecified atrial fibrillation; I48.92 Unspecified atrial flutter; I50.43 Acute on chronic combined systolic (congestive) and diastolic (congestive) heart failure; I87.2 Venous insufficiency (chronic) (peripheral); E11.622 Type 2 diabetes mellitus with other skin ulcer; L97.219 Non-pressure chronic ulcer of right calf with unspecified severity; J44.9 Chronic obstructive pulmonary disease, unspecified; K22.70 Barrett's esophagus without dysplasia; K70.30 Alcoholic cirrhosis of liver without ascites; K86.0 Alcohol-induced chronic pancreatitis; L29.9 Pruritus, unspecified; M15.9 Polyosteoarthritis, unspecified; M79.7 Fibromyalgia; R00.0 Tachycardia, unspecified; N40.0 Benign prostatic hyperplasia without lower urinary tract symptoms; Z90.79 Acquired absence of other genital organ(s); H40.9 Unspecified glaucoma; G89.29 Other chronic pain; R26.2 Difficulty in walking, not elsewhere classified; M54.50 Low back pain, unspecified; Z86.19 Personal history of other infectious and parasitic diseases; Z96.651 Presence of right artificial knee joint; Z79.84 Long term (current) use of oral hypoglycemic drugs; Z79.01 Long term (current) use of anticoagulants; Z79.51 Long term (current) use of inhaled steroids; Z79.899 Other long term (current) drug therapy; Z82.49 Family history of ischemic heart disease and other diseases of the circulatory system; Z83.3 Family history of diabetes mellitus; Z88.0 Allergy status to penicillin; Z88.8 Allergy status to other drugs, medicaments and biological substances
CPT/HCPCS: 36415; 80053; 80202; 82565; 83605; 83880; 85025; 85652; 86140; 87040; 87070; 87075; 87077; 87186; 87205; 93970; 94640; 96361; 96365; 96366; 96368; 96375; 96376; 99285

== ENCOUNTER → 2023-08-17 | Outpatient (CLI) | payer OTHER ==
[2023-08-17 15:41] LABS: Basophils # (A) 0.05 X 10*3/uL (0.00-0.10); Basophils % (A) 0.5 %; Eosinophils # (A) 0.25 X 10*3/uL (0.04-0.35); Eosinophils % (A) 2.4 %; HCT 37.9 % (39.6-50.0); HGB 12.5 g/dL (13.0-17.0); Lymphocytes # (A) 2.12 X 10*3/uL (0.90-5.00); Lymphocytes % (A) 20.1 %; MCH 33.9 pg (27.0-32.0); MCV 102.7 FL (80.0-97.0); Mean Platelet Volume 8.4 FL (9.5-12.2); Monocytes # (A) 0.89 X 10*3/uL (0.20-1.00); Monocytes % (A) 8.5 %; NRBC Per 100 WBC 0 X 10*3/uL (0.00-0.01); Neutrophils # (A) 6.96 X 10*3/uL (1.80-7.70); Platelet Count 381 X 10*3/uL (140-440); RBC 3.69 X 10*6/uL (4.40-5.60); WBC 10.53 X 10*3/uL (4.50-10.00)
[2023-08-17 16:46] LABS: ALT 26 U/L (10-49); AST 16 U/L (14-35); Albumin 3.9 g/dL (3.8-4.9); Albumin/Globulin Ratio 1.56 Ratio (1.60-3.17); Alkaline Phosphatase 75 U/L (41-126); BUN/Creat Ratio 22.15 Ratio (12.00-20.00); Blood Urea Nitrogen 28.8 mg/dL (9.0-27.0); Calcium 9.1 mg/dL (8.7-10.3); Carbon Dioxide 20.8 mmol/L (21.6-31.8); Chloride 115 mmol/L (96-109); Globulin 2.5 g/dL (1.6-3.3); Glucose 131 mg/dL (70-110); Potassium 4.4 mmol/L (3.5-5.5); Sodium 153 mmol/L (135-145); Total Bilirubin 0.4 mg/dL (0.3-1.2); Total Protein 6.4 g/dL (6.2-8.2)
== END | disposition home or self-care (01) ==
LOC: LABWHC1 09:13
PROVIDERS: ATTEND Pediatrics
DX: L97.912 Non-pressure chronic ulcer of unspecified part of right lower leg with fat layer exposed (principal); L97.512 Non-pressure chronic ulcer of other part of right foot with fat layer exposed; E08.622 Diabetes mellitus due to underlying condition with other skin ulcer; E08.621 Diabetes mellitus due to underlying condition with foot ulcer
CPT/HCPCS: 36415; 80053; 83036; 85025

== ENCOUNTER → 2023-08-22 | Outpatient (CLI) | payer OTHER ==
--- NOTE | 2023-08-22 12:39 | US ---
EXAMINATION TYPE: US liver DATE OF EXAM: 08/22/2023 COMPARISON: NONE CLINICAL INDICATION: Male, 63 years old with history of K70.30 ALCOHOLIC CIRRHOSIS OF LIVER WITHOUT A SCITE; Patient denies any signs or symptoms at this time TECHNIQUE: Multiple sonographic images of the right upper quadrant are obtained. FINDINGS: EXAM MEASUREMENTS: Liver Length: 13.6 cm Gallbladder Wall: 0.3 cm CBD: Unable to identify cm Right Kidney: 11.5 x 7.6 x 5.4 cm SUPPLY CRIB ATTENDANT NOTES:Limited vis due to bowel gas Pancreas: Obscured by bowel gas Liver: Simple subcentimeter cyst Gallbladder: Stones noted Evidence for sonographic Kelly's sign: No CBD: unable to identify Right Kidney: wnl IMPRESSION: 1. Cholelithiasis. 2. Hepatic cyst
[2023-08-22 15:28] LABS: Basophils # (A) 0.09 X 10*3/uL (0.00-0.10); Basophils % (A) 0.7 %; Eosinophils # (A) 0.02 X 10*3/uL (0.04-0.35); Eosinophils % (A) 0.2 %; HCT 38.7 % (39.6-50.0); HGB 12.7 g/dL (13.0-17.0); Lymphocytes # (A) 3.12 X 10*3/uL (0.90-5.00); Lymphocytes % (A) 23.9 %; MCH 33.4 pg (27.0-32.0); MCHC 32.8 g/dL (32.0-37.0); MCV 101.8 FL (80.0-97.0); Mean Platelet Volume 9.2 FL (9.5-12.2); Monocytes # (A) 1.02 X 10*3/uL (0.20-1.00); Monocytes % (A) 7.8 %; NRBC Per 100 WBC 0 X 10*3/uL (0.00-0.01); Neutrophils % (A) 63.4 %; Platelet Count 350 X 10*3/uL (140-440); RDW 13.8 % (11.5-14.5); WBC 13.07 X 10*3/uL (4.50-10.00)
[2023-08-22 15:45] LABS: ALT 25 U/L (10-49); AST 16 U/L (14-35); Albumin 3.8 g/dL (3.8-4.9); Albumin/Globulin Ratio 1.65 Ratio (1.60-3.17); Alkaline Phosphatase 64 U/L (41-126); BUN/Creat Ratio 24.83 Ratio (12.00-20.00); Blood Urea Nitrogen 29.8 mg/dL (9.0-27.0); Calcium 9.8 mg/dL (8.7-10.3); Carbon Dioxide 24.2 mmol/L (21.6-31.8); Chloride 102 mmol/L (96-109); Globulin 2.3 g/dL (1.6-3.3); Glucose 141 mg/dL (70-110); Potassium 4.3 mmol/L (3.5-5.5); Sodium 139 mmol/L (135-145); Total Bilirubin 0.3 mg/dL (0.3-1.2); Total Protein 6.1 g/dL (6.2-8.2)
== END | disposition home or self-care (01) ==
LOC: RADUSWWP 10:05
PROVIDERS: ATTEND Internal Medicine Gastroenterology
DX: K70.30 Alcoholic cirrhosis of liver without ascites (principal); K80.20 Calculus of gallbladder without cholecystitis without obstruction; K76.89 Other specified diseases of liver
CPT/HCPCS: 76705; 80053; 82105; 85025

== ENCOUNTER 2023-09-19 15:33 | Inpatient (IN) | payer OTHER ==
--- NOTE | 2023-09-19 15:55 | ED ---
General Adult HPI - General Chief complaint: Shortness of Breath Stated complaint: Cough and dyspnea Time Seen by Provider: 09/19/23 15:44 Source: patient, family, RN notes reviewed Mode of arrival: wheelchair Limitations: no limitations - History of Present Illness Initial comments: Patient is a pleasant 63-year-old male presenting to the emergency department with cough and difficulty breathing. Patient states symptoms have been worse over the past week. Patient does have history of A-fib and feels he is back in A-fib. Patient does have history of previous ablation and is on Eliquis for anticoagulation. Patient does have cough with occasional green sputum. No fever. Only mild leg swelling. - Related Data Home Medications Medication Instructions Recorded Confirmed Montelukast [Singulair] 10 mg PO DAILY@1200 01/12/18 07/27/23 Tamsulosin [Flomax] 0.4 mg PO DAILY@1200 11/08/21 07/27/23 rOPINIRole HCL [Requip] 4 mg PO HS 11/08/21 07/27/23 Cyclobenzaprine [Flexeril] 30 mg PO HS 11/24/21 07/27/23 Loratadine [Claritin] 10 mg PO DAILY@1200 11/24/21 07/27/23 Budesonide-Formot 160-4.5 Mcg 2 puff INHALATION RT-BID 04/11/22 07/27/23 [Symbicort 160-4.5 Mcg Inhaler] Empagliflozin [Jardiance] 10 mg PO DAILY@1200 04/11/22 07/27/23 Apixaban [Eliquis] 5 mg PO BID@0600,1800 05/13/22 07/27/23 Sacubitril/Valsartan [Entresto 24 1 tab PO BID@0600,1800 05/13/22 07/27/23 mg-26 mg Tablet] Atorvastatin [Lipitor] 20 mg PO HS@1800 02/28/23 07/27/23 Furosemide [Lasix] 40 mg PO BID@0600,1800 02/28/23 07/27/23 Tiotropium 2.5 Mcg/Puff [Spiriva 2 puff INHALATION RT-DAILY 02/28/23 07/27/23 Respimat 2.5 Mcg] Omeprazole [PriLOSEC] 20 mg PO DAILY@1200 06/27/23 07/27/23 Spironolactone [Aldactone] 25 mg PO DAILY@1200 06/27/23 07/27/23 ARIPiprazole [Abilify] 5 mg PO DAILY@0600 07/27/23 07/27/23 Latanoprost [Latanoprost 0.005%] 1 drop BOTH EYES HS 07/27/23 07/27/23 Nicotine 21Mg/24Hr Patch [Habitrol] 1 patch TRANSDERM DAILY 07/27/23 07/27/23 Super B Complex With Vitamin C 1 tab PO DAILY@1200 07/27/23 07/27/23 Previous Rx's Medication Instructions Recorded Cephalexin [Keflex] 500 mg PO Q8HR 7 Days #21 cap 07/31/23 Ciprofloxacin HCl [Cipro] 500 mg PO BID 7 Days #14 tab 07/31/23 oxyCODONE-APAP 5-325MG [Percocet 1 tab PO Q6HR PRN 3 Days #12 tab 07/31/23 5-325 mg] Allergies Allergy/AdvReac Type Severity Reaction Status Date / Time amoxicillin trihydrate AdvReac Rapid Verified 09/19/23 15:39 [From Augmentin] Heart Rate potassium clavulanate AdvReac FELT LIKE Verified 09/19/23 15:39 [From Augmentin] HE WAS GOING TO PASS OUT FAST HEARTBEAT" pregabalin [From Lyrica] AdvReac Leg Verified 09/19/23 15:39 swelling venlafaxine [From Effexor] AdvReac Confusion Verified 09/19/23 15:39 Review of Systems ROS Statement: Those systems with pertinent positive or pertinent negative responses have been documented in the HPI. ROS Other: All systems not noted in ROS Statement are negative. Constitutional: Denies: fever Eyes: Denies: eye pain ENT: Reports: congestion Respiratory: Reports: cough, dyspnea Cardiovascular: Denies: chest pain Endocrine: Denies: fatigue Musculoskeletal: Denies: back pain Past Medical History Past Medical History: Atrial Fibrillation, Coronary Artery Disease (CAD), Heart Failure, COPD, Diabetes Mellitus, Eye Disorder, Fibromyalgia, Hypertension, Myocardial Infarction (MS), Musculoskeletal Disorder, Osteoarthritis (OA), Prostate Disorder, Vascular Disorder Additional Past Medical History / Comment(s): Chronic cough, hx pancreatitis, bilateral glaucoma, neuropathy bilateral feet, poor circulation to legs, va ricose veins, RLS, hx BPH, colitis, gastritis, Alvarenga's esophagus, hx Shingles in 2013 with joint pain since, chronic low back pain, DDD. wound to right leg, Last Myocardial Infarction Date:: 09/02/16 History of Any Multi-Drug Resistant Organisms: None Reported Past Surgical History: Appendectomy, Cardiac Ablation, Heart Catheterization, Joint Replacement, Orthopedic Surgery, Prostate Surgery Additional Past Surgical History / Comment(s): Right knee arthroscopy, right knee replacement, EGD, colonoscopy, TURP, cardioversion. Past Anesthesia/Blood Transfusion Reactions: No Reported Reaction Additional Past Anesthesia/Blood Transfusion Reaction / Comment(s): No hx blood transfusion. Past Psychological History: Anxiety, Depression Smoking Status: Current every day smoker Past Alcohol Use History: Occasional Past Drug Use History: Cocaine - Past Family History Father Family Medical History: CVA/TIA, Hypertension Additional Family Medical History / Comment(s): Father at the age of 38yrs from HTN/CVA. He was an alcoholic. Mother Family Medical History: COPD, Diabetes Mellitus Additional Family Medical History / Comment(s): Mother of emphysema at the age of 74 yrs (2003), mom had hx of drinking and smoking. General Exam Limitations: no limitations General appearance: alert, in no apparent distress Head exam: Present: normocephalic Eye exam: Present: normal appearance Neck exam: Present: normal inspection Respiratory exam: Present: rhonchi Cardiovascular Exam: Present: tachycardia, irregular rhythm GI/Abdominal exam: Present: soft. Absent: tenderness Extremities exam: Present: pedal edema Neurological exam: Present: alert Psychiatric exam: Present: normal affect, normal mood Skin exam: Present: rash (Right lower leg) Course Vital Signs 09/19/23 09/19/23 09/19/23 15:35 16:13 17:10 Temperature 97.7 F Pulse Rate 55 L 94 102 H Respiratory 18 20 18 Rate Blood Pressure 89/51 89/55 96/46 O2 Sat by Pulse 91 L 95 96 Oximetry EKG Findings - EKG Results: EKG: interpreted by ERMD (Nonspecific interventricular conduction delay. Borde rline lateral ST depression.), normal axis EKG shows: atrial fibrillation Medical Decision Making - Medical Decision Making Was pt. sent in by a medical professional or institution (, PA, [employer], urgent care, hospital, or assisted...) When possible be specific @ -No Did you speak to anyone other than the patient for history (EMS, parent, family, police, friend...)? What history was obtained from this source @ -No Did you review nursing and triage notes (agree or disagree)? Why? @ -I reviewed and agree with nursing and triage notes Were old charts reviewed (outside hosp., previous admission, EMS record, old EKG, old radiological studies, urgent care reports/EKG's, assisted records)? Report findings @ -Previous lab work reviewed Differential Diagnosis (chest pain, altered mental status, abdominal pain women, abdominal pain men, vaginal bleeding, weakness, fever, dyspnea, syncope, headache, dizziness, GI bleed, back pain, seizure, CVA, palpatations, mental health, musculoskeletal)? @ -Differential Weakness: Hypoglycemia, shock, sepsis, hyponatremia, anemia, infection, MS, ETOH, adverse medicine reaction, overdose, stroke, this is not meant to be an all-inclusive list. EKG interpreted by me (3pts min.). @ -As above X-rays interpreted by me (1pt min.). @ -Chest x-ray shows no acute process CT interpreted by me (1pt min.). @ -None done U/S interpreted by me (1pt. min.). @ -None done What testing was considered but not performed or refused? (CT, X-rays, U/S, labs)? Why? @ -Consider D-dimer however patient is anticoagulated with Eliquis secondary to history of atrial fibrillation What meds were considered but not given or refused? Why? @ -None Did you discuss the management of the patient with other professionals (professionals i.e. , PA, [employer], lab, RT, psych nurse, nursing home social worker, pyrotechnician, teacher, staff weapons officer, case management associate)? Give summary @ -Case was discussed with Dr. Tamayo, who will admit covering Dr. Cahvez Was smoking cessation discussed for >3mins.? @ -No Was critical care preformed (if so, how long)? @ -No Were there social determinants of health that impacted care today? How? (Homelessness, low income, unemployed, alcoholism, drug addiction, transport ation, low edu. Level, literacy, decrease access to med. care, nursing home, rehab)? @ -No Was there de-escalation of care discussed even if they declined (Discuss DNR or withdrawal of care, Hospice)? DNR status @ -No What co-morbidities impacted this encounter? (DM, HTN, Smoking, COPD, CAD, Cancer, CVA, ARF, Chemo, Hep., AIDS, mental health diagnosis, sleep apnea, morbid obesity)? @ -None Was patient admitted / discharged? Hospital course, mention meds given and route, prescriptions, significant lab abnormalities, going to OR and other pertinent info. @ -Patient has new acute kidney injury. Patient and family updated on results and plan. Patient will be admitted. Bladder scan and ultrasound will be ordered as well as urinalysis. Admission orders placed. Nephrology will place on consult. Undiagnosed new problem with uncertain prognosis? @ -No Drug Therapy requiring intensive monitoring for toxicity (Heparin, Nitro, Insulin, Cardizem)? @ -No Were any procedures done? @ -No Diagnosis/symptom? @ -Acute kidney injury Acute, or Chronic, or Acute on Chronic? @ -Acute Uncomplicated (without systemic symptoms) or Complicated (systemic symptoms)? @ -Default Side effects of treatment? @ -No Exacerbation, Progression, or Severe Exacerbation? @ -No Poses a threat to life or bodily function? How? (Chest pain, USA, MS, pneumonia, PE, COPD, DKA, ARF, appy, cholecystitis, CVA, Diverticulitis, Homicidal, Suicidal, threat to staff... and all critical care pts) @ -Potential threat to permanent renal function necessitating dialysis - Lab Data Result diagrams: 09/19/23 16:02 09/19/23 16:02 Lab Results 09/19/23 09/19/23 09/19/23 Range/Units 16:02 16:02 16:02 WBC 8.5 (3.8-10.6) k/uL RBC 3.74 L (4.30-5.90) m/uL Hgb 12.5 L (13.0-17.5) gm/dL Hct 36.3 L (39.0-53.0) % MCV 97.1 D (80.0-100.0) fL MCH 33.4 (25.0-35.0) pg MCHC 34.4 (31.0-37.0) g/dL RDW 13.8 (11.5-15.5) % Plt Count 346 (150-450) k/uL MPV 7.9 Neutrophils % 77 % Lymphocytes % 10 % Monocytes % 8 % Eosinophils % 1 % Basophils % 1 % Neutrophils # 6.6 (1.3-7.7) k/uL Lymphocytes # 0.8 L (1.0-4.8) k/uL Monocytes # 0.7 (0-1.0) k/uL Eosinophils # 0.1 (0-0.7) k/uL Basophils # 0.1 (0-0.2) k/uL Sodium 133 L (137-145) mmol/L Potassium 3.8 (3.5-5.1) mmol/L Chloride 101 (98-107) mmol/L Carbon Dioxide 14 L (22-30) mmol/L Anion Gap 18 mmol/L BUN 101 H* (9-20) mg/dL Creatinine 5.25 H (0.66-1.25) mg/dL Est GFR (CKD-EPI)AfAm 12 (>60 ml/min/1.73 sqM) Est GFR (CKD-EPI)NonAf 11 (>60 ml/min/1.73 sqM) Glucose 125 H (74-99) mg/dL Plasma Lactic Acid Carlos Manuel 2.1 H* (0.7-2.0) mmol/L Calcium 8.1 L (8.4-10.2) mg/dL Magnesium 2.0 (1.6-2.3) mg/dL Total Bilirubin 0.4 (0.2-1.3) mg/dL AST 84 H (17-59) U/L ALT 51 H (4-49) U/L Alkaline Phosphatase 76 (38-126) U/L Troponin I (0.000-0.034) ng/mL NT-Pro-B Natriuret Pep 531 pg/mL Total Protein 6.3 (6.3-8.2) g/dL Albumin 3.4 L (3.5-5.0) g/dL Influenza Type A (PCR) (Not Detectd) Influenza Type B (PCR) (Not Detectd) RSV (PCR) (Not Detectd) SARS-CoV-2 (PCR) (Not Detectd) 09/19/23 09/19/23 Range/Units 16:02 16:02 WBC (3.8-10.6) k/uL RBC (4.30-5.90) m/uL Hgb (13.0-17.5) gm/dL Hct (39.0-53.0) % MCV (80.0-100.0) fL MCH (25.0-35.0) pg MCHC (31.0-37.0) g/dL RDW (11.5-15.5) % Plt Count (150-450) k/uL MPV Neutrophils % % Lymphocytes % % Monocytes % % Eosinophils % % Basophils % % Neutrophils # (1.3-7.7) k/uL Lymphocytes # (1.0-4.8) k/uL Monocytes # (0-1.0) k/uL Eosinophils # (0-0.7) k/uL Basophils # (0-0.2) k/uL Sodium (137-145) mmol/L Potassium (3.5-5.1) mmol/L Chloride (98-107) mmol/L Carbon Dioxide (22-30) mmol/L Anion Gap mmol/L BUN (9-20) mg/dL Creatinine (0.66-1.25) mg/dL Est GFR (CKD-EPI)AfAm (>60 ml/min/1.73 sqM) Est GFR (CKD-EPI)NonAf (>60 ml/min/1.73 sqM) Glucose (74-99) mg/dL Plasma Lactic Acid Carlos Manuel (0.7-2.0) mmol/L Calcium (8.4-10.2) mg/dL Magnesium (1.6-2.3) mg/dL Total Bilirubin (0.2-1.3) mg/dL AST (17-59) U/L ALT (4-49) U/L Alkaline Phosphatase (38-126) U/L Troponin I 0.042 H* (0.000-0.034) ng/mL NT-Pro-B Natriuret Pep pg/mL Total Protein (6.3-8.2) g/dL Albumin (3.5-5.0) g/dL Influenza Type A (PCR) Not Detected (Not Detectd) Influenza Type B (PCR) Not Detected (Not Detectd) RSV (PCR) Not Detected (Not Detectd) SARS-CoV-2 (PCR) Not Detected (Not Detectd) Disposition Clinical Impression: Acute kidney injury Disposition: ADMITTED IP TO THIS HOSP Condition: Serious Is patient prescribed a controlled substance at d/c from ED?: No Referrals: [facility] [REFERRING] - 1-2 days Time of Disposition: 17:30
[2023-09-19 16:21] LABS: Basophils # (A) 0.1 k/uL (0-0.2); Basophils % (A) 1 %; Eosinophils # (A) 0.1 k/uL (0-0.7); Eosinophils % (A) 1 %; HCT 36.3 % (39.0-53.0); HGB 12.5 gm/dL (13.0-17.5); Lymphocytes # (A) 0.8 k/uL (1.0-4.8); Lymphocytes % (A) 10 %; MCH 33.4 pg (25.0-35.0); MCHC 34.4 g/dL (31.0-37.0); Mean Platelet Volume 7.9; Monocytes # (A) 0.7 k/uL (0-1.0); Monocytes % (A) 8 %; Neutrophils # (A) 6.6 k/uL (1.3-7.7); Neutrophils % (A) 77 %; Platelet Count 346 k/uL (150-450); RBC 3.74 m/uL (4.30-5.90); RDW 13.8 % (11.5-15.5); WBC 8.5 k/uL (3.8-10.6)
[2023-09-19 16:33] LABS: ALT 51 U/L (4-49); AST 84 U/L (17-59); African American GFR (CKD) 12 (>60 ml/min/1.73 sqM); Albumin 3.4 g/dL (3.5-5.0); Alkaline Phosphatase 76 U/L (38-126); Anion Gap 18 mmol/L; Calcium 8.1 mg/dL (8.4-10.2); Carbon Dioxide 14 mmol/L (22-30); Chloride 101 mmol/L (98-107); Glucose 125 mg/dL (74-99); Non-African American GFR(CKD) 11 (>60 ml/min/1.73 sqM); Potassium 3.8 mmol/L (3.5-5.1); Sodium 133 mmol/L (137-145); Total Bilirubin 0.4 mg/dL (0.2-1.3); Total Protein 6.3 g/dL (6.3-8.2)
[2023-09-19 16:37] LABS: Blood Urea Nitrogen 101 mg/dL (9-20)
[2023-09-19 16:42] LABS: MCV 97.1 fL (80.0-100.0); NT-Pro-B-Type Natriuretic Pept 531 pg/mL
--- NOTE | 2023-09-19 16:58 | XR ---
EXAMINATION TYPE: XR chest 2V DATE OF EXAM: 09/19/2023 COMPARISON: 04/14/2023 HISTORY: Shortness of breath TECHNIQUE: Frontal and lateral views of the chest are obtained. FINDINGS: Scattered senescent parenchymal changes noted. Hyperinflation compatible with COPD. No evidence for infiltrate. No evidence for atelectasis. Heart size is stable. Mediastinal structures are stable and grossly unremarkable. No evidence for hilar prominence. Degenerative changes dorsal spine. IMPRESSION: 1. No evidence for acute pulmonary disease.
[2023-09-19] MEDS ORDERED: NALOXONE 0.4 MG/ML 1 ML VIAL IV PRN (17:27)
[2023-09-19 17:49] LABS: INR 0.9 (<1.2); Partial Thromboplastin Time 29.6 sec (22.0-30.0); Prothrombin Time 10.5 sec (10.0-12.5)
[2023-09-19] MEDS: SODIUM CHLORIDE 0.9% 1,000 ML IV STA (18:17)
[2023-09-19] MEDS: SODIUM CHLORIDE 0.9% 1,000 ML IV SCH (18:17)
[2023-09-19] MEDS: oxyCODONE-APAP 10-325MG 1 EACH TAB PO SCH (18:32)
[2023-09-19] MEDS: PERMETHRIN 5% CREAM 60 GM TUBE TOPICAL ONE (20:15)
[2023-09-19] MEDS: SYMBICORT 160-4.5 MCG INHALER INHALATION SCH (21:08)
[2023-09-19] MEDS: rOPINIRole HCL 4 MG TABLET PO SCH (21:11)
[2023-09-19] MEDS: HYDROmorphone 0.5 MG/0.5 ML SYRINGE IVP PRN (21:11)
[2023-09-19] MEDS: LATANOPROST 0.005% OPHTH DROPS 2.5 ML BTL BOTH EYES SCH (21:12)
[2023-09-19] MEDS: CYCLOBENZAPRINE 10 MG TAB PO SCH (23:08)
[2023-09-20 04:37] LABS: Amorphous Sediment,Urine Rare /hpf; Appearance,Urine Clear (Clear); Bilirubin,Urine Negative (Negative); Blood,Urine Small (Negative); Calcium Oxalate Crystals,Urine Rare /hpf; Color,Urine Yellow; Glucose,Urine (UA) 3+ (Negative); Hyaline Casts,Urine 238 /lpf (0-2); Ketones,Urine Negative (Negative); Leukocyte Esterase,Urine Negative (Negative); Mucus,Urine Rare /hpf; Nitrite,Urine Negative (Negative); Protein,Urine Trace (Negative); RBC,Urine 22 /hpf (0-5); Specific Gravity,Urine 1.022 (1.001-1.035); Urobilinogen,Urine <2.0 mg/dL (<2.0); WBC,Urine 3 /hpf (0-5)
[2023-09-20] MEDS: ARIPiprazole 5 MG TAB PO SCH (06:08)
[2023-09-20 07:46] LABS: ALT 51 U/L (4-49); AST 65 U/L (17-59); African American GFR (CKD) 18 (>60 ml/min/1.73 sqM); Albumin 3.2 g/dL (3.5-5.0); Albumin/Globulin Ratio 1.1; Alkaline Phosphatase 83 U/L (38-126); Anion Gap 17 mmol/L; Blood Urea Nitrogen 97 mg/dL (9-20); Calcium 7.9 mg/dL (8.4-10.2); Carbon Dioxide 10 mmol/L (22-30); Chloride 106 mmol/L (98-107); Globulin 2.8 g/dL; Glucose 125 mg/dL (74-99); Magnesium 1.7 mg/dL (1.6-2.3); Non-African American GFR(CKD) 15 (>60 ml/min/1.73 sqM); Phosphorus 7.8 mg/dL (2.5-4.5); Potassium 4.1 mmol/L (3.5-5.1); Sodium 133 mmol/L (137-145); Total Bilirubin 0.3 mg/dL (0.2-1.3)
[2023-09-20] MEDS: TIOTROPIUM 2.5 MCG INHALER INHALATION SCH (08:09)
--- NOTE | 2023-09-20 10:46 | P.CRDCN ---
History of Present Illness Consult date: 09/20/23 Consult reason: congestive heart failure History of present illness: History of present illness: This is a 63-year-old male patient of Dr. Stephanie Avila with past medical history of chronic systolic heart failure, alcohol abuse, aortic regurgitation, persistent atrial fibrillation, chronic bilateral lower extremity edema, cellulitis of the lower extremities, history of parasitic infection. We have been asked to evaluate the patient for CHF. Patient presented to the emergency center on 09/19 with cough and difficulty breathing. Patient states that he quit smoking yesterday. Patient also had increased lower extremity edema which she states is better now. He states he has had some weight loss of a few pounds. He also complains of diarrhea prior to his arrival. He denies having any nausea or vomiting. He states he has a good appetite. He states he is taking all of his medications as directed. Regarding alcohol use, patient states he quit 1 week ago but was drinking 1-2 beers per week. Patient was found to have scabies and is in isolation for this. Initial blood pressure was 89/51. EKG atrial fibrillation at 116 bpm. Chest x-ray: No acute process WBC 8.5, hemoglobin 12.5, platelet count 346. INR 0.9. Sodium 133, potassium 4 .1. Patient presented with BUN of 101 and creatinine 5.25. BUN is now 97 and creatinine 3.91. Lactic acid initially 2 point 1 repeat 1.7. Calcium 7.9. AST 65, ALT 51. Troponin 0.042. proBNP 531. Albumin 3.2. Influenza A, influenza B, RSV, COVID-19 not detected. Home cardiac medications: Eliquis 5 mg twice daily, atorvastatin 20 mg at 6 PM, Lasix 40 mg daily, Entresto 24 mg - 26 mg 1 tablet twice daily, spironolactone 25 mg daily. Echocardiogram performed on 07/26/2023 in the office revealed EF of 55%. Moderate concentric left ventricular hypertrophy. Severe aortic regurgitation. Moderate mitral regurgitation. Moderate tricuspid regurgitation. Moderately increased pulmonary artery systolic pressure of 45 mmHg. Review Of Systems: At the time of my exam: CONSTITUTIONAL: Denies fever or chills. HEENT: Denies blurred vision, vision changes, or eye pain. Denies hemoptysis CARDIOVASCULAR: Denies chest pain. Denies orthopnea. Denies PND. Denies palpitations RESPIRATORY: + shortness of breath. + cough. GASTROINTESTINAL: Denies abdominal pain. Denies nausea or vomiting.+ weight loss. HEMATOLOGIC: Denies bleeding disorders. GENITOURINARY: Denies any blood in urine. SKIN: Denies pruitis. Denies rash. Physical examination: Gen: This is a disheveled 63-year-old male in no acute distress VS: reviewed blood pressure 122/63, heart rate 117. Pulse ox 94% on room air. HEENT: Head is atraumatic, normocephalic. Pupils equal, round. Sclerae is anicteric. NECK: Supple. No JVD. LUNGS: Clear to auscultation. No wheezes or rhonchi. No intercostal retractions. HEART: Regular rate and rhythm. No murmur. ABDOMEN: Soft No tenderness. EXTREMITIES: Edema and erythema lower extremity. NEUROLOGICAL: Patient is awake, alert and oriented x3. Assessment: Persistent atrial fibrillation Acute kidney injury Chronic systolic heart failure Severe aortic regurgitation, moderate mitral regurgitation, moderate tricuspid regurgitation Chronic lower extremity edema and cellulitis Scabies infestation Alcohol abuse, quit 1 week ago Tobacco use and dependence Plan: Resume patient's home cardiac medications, noted that Entresto and Eliquis on hold due to acute kidney injury. No need to repeat echocardiogram Repeat renal functions in the morning If renal function is improved tomorrow, will resume Eliquis. Further recommendations to follow based upon clinical course Thank you kindly for this consultation. Nurse practitioner note has been reviewed, I agree with documented findings and plan of care. Patient was seen and examined. Past Medical History Past Medical History: Atrial Fibrillation, Coronary Artery Disease (CAD), Heart Failure, COPD, Diabetes Mellitus, Eye Disorder, Fibromyalgia, Hypertension, Myocardial Infarction ([place]), Musculoskeletal Disorder, Osteoarthritis (OA), Prostate Disorder, Vascular Disorder Additional Past Medical History / Comment(s): Chronic cough, hx pancreatitis, bilateral glaucoma, neuropathy bilateral feet, poor circulation to legs, varicose veins, RLS, hx BPH, colitis, gastritis, Alvarenga's esophagus, hx Shingles in 2012 with joint pain since, chronic low back pain, DDD. wound to right leg, scabies 06/2023 Last Myocardial Infarction Date:: 09/02/16 History of Any Multi-Drug Resistant Organisms: None Reported Past Surgical History: Appendectomy, Cardiac Ablation, Heart Catheterization, Joint Replacement, Orthopedic Surgery, Prostate Surgery Additional Past Surgical History / Comment(s): Right knee arthroscopy, right knee replacement, EGD, colonoscopy, TURP, cardioversion. Past Anesthesia/Blood Transfusion Reactions: No Reported Reaction Additional Past Anesthesia/Blood Transfusion Reaction / Comment(s): No hx blood transfusion. Past Psychological History: Anxiety, Depression Additional Psychological History / Comment(s): Pt resides with his sister Ewelina. Smoking Status: Former smoker Past Alcohol Use History: Occasional Additional Past Alcohol Use History / Comment(s): Started smoking at age 13, quit 10/2016, started smoking again and now quit just recently 09/2023 Past Drug Use History: Cocaine Additional Drug Use History / Comment(s): Hx cocaine use, none in 20-30 years. - Past Family History Father Family Medical History: CVA/TIA, Hypertension Additional Family Medical History / Comment(s): Father at the age of 38yrs from HTN/CVA. He was an alcoholic. Mother Family Medical History: COPD, Diabetes Mellitus Additional Family Medical History / Comment(s): Mother of emphysema at the age of 74 yrs (2003), mom had hx of drinking and smoking. Medications and Allergies Home Medications Medication Instructions Recorded Confirmed Type Montelukast [Singulair] 10 mg PO DAILY@119901/12/18 09/19/23 History Tamsulosin [Flomax] 0.4 mg PO DAILY@1200 11/08/21 09/19/23 History rOPINIRole HCL [Requip] 4 mg PO HS 11/08/21 09/19/23 History Cyclobenzaprine [Flexeril] 10 mg PO TID 11/24/21 09/19/23 History Loratadine [Claritin] 10 mg PO DAILY@1200 11/24/21 09/19/23 History Budesonide-Formot 160-4.5 Mcg 2 puff INHALATION RT-BID 04/11/22 09/19/23 History [Symbicort 160-4.5 Mcg Inhaler] Empagliflozin [Jardiance] 10 mg PO DAILY@1200 04/11/22 09/19/23 History Apixaban [Eliquis] 5 mg PO BID@0600,1800 05/13/22 09/19/23 History Sacubitril/Valsartan [Entresto 24 1 tab PO BID@0600,1800 05/13/22 09/19/23 History mg-26 mg Tablet] Atorvastatin [Lipitor] 20 mg PO HS@1800 02/28/23 09/19/23 History Furosemide [Lasix] 40 mg PO DAILY 02/28/23 09/19/23 History Tiotropium 2.5 Mcg/Puff [Spiriva 2 puff INHALATION RT-DAILY 02/28/23 09/19/23 History Respimat 2.5 Mcg] Omeprazole [PriLOSEC] 20 mg PO DAILY@1200 06/27/23 09/19/23 History Spironolactone [Aldactone] 25 mg PO DAILY@1200 06/27/23 09/19/23 History ARIPiprazole [Abilify] 5 mg PO DAILY@0600 07/27/23 09/19/23 History Latanoprost [Latanoprost 0.005%] 1 drop BOTH EYES HS 07/27/23 09/19/23 History Super B Complex With Vitamin C 1 tab PO DAILY@1200 07/27/23 09/19/23 History Fish Oil 600mg 3 cap PO DAILY 09/19/23 09/19/23 History SILVER sulfADIAZINE Cream 1 applic TOPICAL DAILY 09/19/23 09/19/23 History [Silvadene 1% Cream] oxyCODONE-APAP 10-325MG [Percocet 1 tab PO TID 09/19/23 09/19/23 History 10-325 mg] Allergies Allergy/AdvReac Type Severity Reaction Status Date / Time amoxicillin trihydrate AdvReac Rapid Verified 09/19/23 18:04 [From Augmentin] Heart Rate potassium clavulanate AdvReac FELT LIKE Verified 09/19/23 18:04 [From Augmentin] HE WAS GOING TO PASS OUT FAST HEARTBEAT" pregabalin [From Lyrica] AdvReac Leg Verified 09/19/23 18:04 swelling venlafaxine [From Effexor] AdvReac Confusion Verified 09/19/23 18:04 Physical Exam Vitals: Vital Signs Temp Pulse Pulse Resp BP BP Pulse Ox 09/20/23 08:00 98 F 117 H 20 122/63 94 L 09/20/23 02:00 99.5 F 60 16 98/54 100 09/19/23 23:56 111 H 20 09/19/23 23:20 97.2 F L 111 H 20 102/63 92 L 09/19/23 21:43 97.8 F 108 H 17 108/61 90 L 09/19/23 21:21 110 H 110/61 09/19/23 21:11 108 H 09/19/23 20:16 96.9 F L 115 H 15 107/54 97 09/19/23 19:16 102 H 18 98/63 97 09/19/23 18:03 102 H 18 81/49 09/19/23 17:10 102 H 18 96/46 96 09/19/23 16:13 94 20 89/55 95 09/19/23 15:35 97.7 F 55 L 18 89/51 91 L Intake and Output 09/19/23 09/20/23 09/20/23 22:59 06:59 14:59 Intake Total 120 540 Balance 120 540 Intake: Oral 120 540 Other: Voiding Method Urinal Weight 103.419 kg 103.419 kg Results 09/20/23 06:48 09/20/23 06:48 Cardiac Enzymes 09/19/23 09/19/23 09/20/23 Range/Units 16:02 16:02 06:48 AST 84 H 65 H (17-59) U/L Troponin I 0.042 H* (0.000-0.034) ng/mL Coagulation 09/19/23 Range/Units 16:02 PT 10.5 (10.0-12.5) sec APTT 29.6 (22.0-30.0) sec CBC 09/19/23 Range/Units 16:02 WBC 8.5 (3.8-10.6) k/uL RBC 3.74 L (4.30-5.90) m/uL Hgb 12.5 L (13.0-17.5) gm/dL Hct 36.3 L (39.0-53.0) % Plt Count 346 (150-450) k/uL Comprehensive Metabolic Panel 09/19/23 09/20/23 Range/Units 16:02 06:48 Sodium 133 L 133 L (137-145) mmol/L Potassium 3.8 4.1 (3.5-5.1) mmol/L Chloride 101 106 (98-107) mmol/L Carbon Dioxide 14 L 10 L (22-30) mmol/L BUN 101 H* 97 H (9-20) mg/dL Creatinine 5.25 H 3.91 H (0.66-1.25) mg/dL Glucose 125 H 125 H (74-99) mg/dL Calcium 8.1 L 7.9 L (8.4-10.2) mg/dL AST 84 H 65 H (17-59) U/L ALT 51 H 51 H (4-49) U/L Alkaline Phosphatase 76 83 (38-126) U/L Total Protein 6.3 6.0 L (6.3-8.2) g/dL Albumin 3.4 L 3.2 L (3.5-5.0) g/dL Current Medications Generic Name Dose Route Start Last Admin Trade Name Freq PRN Reason Stop Dose Admin Aripiprazole 5 mg 09/20/23 06:00 09/20/23 06:08 Aripiprazole 5 Mg Tab PO 5 mg DAILY@0600 [facility] Administration Atorvastatin Calcium 20 mg 09/20/23 18:00 Atorvastatin 20 Mg Tab PO HS@1800 [facility] Budesonide/Formoterol Fumarate 2 puff 09/19/23 20:00 09/20/23 08:09 Symbicort 160-4.5 Mcg Inhaler INHALATION 2 puff RT-BID [facility] Administration Cyclobenzaprine HCl 10 mg 09/19/23 22:00 09/19/23 23:08 Cyclobenzaprine 10 Mg Tab PO 10 mg TID [facility]YANNE Administration Hydromorphone HCl 0.5 mg 09/19/23 20:55 09/20/23 03:15 Hydromorphone 0.5 Mg/0.5 Ml Syringe IVP 0.5 mg Q4HR PRN Administration Pain Sodium Chloride 1,000 mls @ 75 mls/hr 09/19/23 17:30 09/20/23 06:09 Saline 0.9% IV Not Given .[id number] [facility] Latanoprost 1 drops 09/19/23 21:00 09/19/23 21:12 Latanoprost 0.005% Ophth Drops 2.5 Ml Btl BOTH EYES 1 drops HS CHEYANNE Administration Loratadine 10 mg 09/20/23 12:00 Loratadine 10 Mg Tab PO DAILY@1200 [facility]NE Montelukast Sodium 10 mg 09/20/23 12:00 Montelukast 10 Mg Tab PO DAILY@1200 [facility] Naloxone HCl 0.2 mg 09/19/23 17:27 Naloxone 0.4 Mg/Ml 1 Ml Vial IV Q2M PRN Opioid Reversal Oxycodone/Acetaminophen 1 each 09/19/23 18:30 09/19/23 23:17 Oxycodone-Apap 10-325mg 1 Each Tab PO Not Given TID [facility] Pantoprazole Sodium 40 mg 09/20/23 12:00 Pantoprazole 40 Mg Tablet PO DAILY@1200 [facility] Ropinirole HCl 4 mg 09/19/23 21:00 09/19/23 21:11 Ropinirole Hcl 4 Mg Tablet PO 4 mg HS [facility] Administration Tamsulosin HCl 0.4 mg 09/20/23 12:00 Tamsulosin 0.4 Mg Cap.Er.24h PO DAILY@1200 [facility] Tiotropium [place] 2 puff 09/20/23 08:00 09/20/23 08:09 Tiotropium 2.5 Mcg Inhaler INHALATION 2 puff RT-DAILY [facility] Administration Intake and Output 09/19/23 09/20/23 09/20/23 22:59 06:59 14:59 Intake Total 120 540 Balance 120 540 Intake: Oral 120 540 Other: Voiding Method Urinal Weight 103.419 kg 103.419 kg 09/19/23 16:02 09/20/23 06:48
[2023-09-20 11:10] LABS: Basophils # (A) 0.06 X 10*3/uL (0.00-0.10); Basophils % (A) 0.6 %; Eosinophils # (A) 0.03 X 10*3/uL (0.04-0.35); Eosinophils % (A) 0.3 %; HCT 33.6 % (39.6-50.0); HGB 11.4 g/dL (13.0-17.0); Lymphocytes % (A) 5.6 %; MCH 32.6 pg (27.0-32.0); MCHC 33.9 g/dL (32.0-37.0); Mean Platelet Volume 9.2 FL (9.5-12.2); Monocytes # (A) 0.91 X 10*3/uL (0.20-1.00); Monocytes % (A) 8.5 %; NRBC Per 100 WBC 0 X 10*3/uL (0.00-0.01); Neutrophils # (A) 9.05 X 10*3/uL (1.80-7.70); Platelet Count 342 X 10*3/uL (140-440); RDW 13.4 % (11.5-14.5); WBC 10.76 X 10*3/uL (4.50-10.00)
--- NOTE | 2023-09-20 11:37 | P.NPCON ---
History of Present Illness - Reason for Consult acute renal failure - History of Present Illness Patient is a 63-year-old male with history of CHF chronic A-fib who was admitted to the hospital with complaints of weakness and shortness of breath. Patient also has had increased redness in his right lower extremity. Patient was noted to have scabies. Serum creatinine at 5.2 on initial admission and decreased to 3.9 today. Previous creatinine 1.2 on 08/22/2023. Patient has been voiding. Blood pressure was low with systolic in the 80s. Currently improved. Maintained on Entresto at home, currently on hold and maintained on IV fluids. Chest x-ray shows no evidence of pulmonary vascular congestion. Review of Systems As per HPI Past Medical History Past Medical History: Atrial Fibrillation, Coronary Artery Disease (CAD), Heart Failure, COPD, Diabetes Mellitus, Eye Disorder, Fibromyalgia, Hypertension, Myocardial Infarction ([place]), Musculoskeletal Disorder, Osteoarthritis (OA), Prostate Disorder, Vascular Disorder Additional Past Medical History / Comment(s): Chronic cough, hx pancreatitis, bilateral glaucoma, neuropathy bilateral feet, poor circulation to legs, varicose veins, RLS, hx BPH, colitis, gastritis, Alvarenga's esophagus, hx Shingles in 2012 with joint pain since, chronic low back pain, DDD. wound to right leg, scabies 06/2023 Last Myocardial Infarction Date:: 09/02/16 History of Any Multi-Drug Resistant Organisms: None Reported Past Surgical History: Appendectomy, Cardiac Ablation, Heart Catheterization, Joint Replacement, Orthopedic Surgery, Prostate Surgery Additional Past Surgical History / Comment(s): Right knee arthroscopy, right knee replacement, EGD, colonoscopy, TURP, cardioversion. Past Anesthesia/Blood Transfusion Reactions: No Reported Reaction Additional Past Anesthesia/Blood Transfusion Reaction / Comment(s): No hx blood transfusion. Past Psychological History: Anxiety, Depression Additional Psychological History / Comment(s): Pt resides with his sister Ewelina. Smoking Status: Former smoker Past Alcohol Use History: Occasional Additional Past Alcohol Use History / Comment(s): Started smoking at age 13, quit 10/2016, started smoking again and now quit just recently 09/2023 Past Drug Use History: Cocaine Additional Drug Use History / Comment(s): Hx cocaine use, none in 20-30 years. - Past Family History Father Family Medical History: CVA/TIA, Hypertension Additional Family Medical History / Comment(s): Father at the age of 38yrs from HTN/CVA. He was an alcoholic. Mother Family Medical History: COPD, Diabetes Mellitus Additional Family Medical History / Comment(s): Mother of emphysema at the age of 74 yrs (2003), mom had hx of drinking and smoking. Medications and Allergies Home Medications Medication Instructions Recorded Confirmed Type Montelukast [Singulair] 10 mg PO DAILY@1200 01/12/18 09/19/23 History Tamsulosin [Flomax] 0.4 mg PO DAILY@1200 11/08/21 09/19/23 History rOPINIRole HCL [Requip] 4 mg PO HS 11/08/21 09/19/23 History Cyclobenzaprine [Flexeril] 10 mg PO TID 11/24/21 09/19/23 History Loratadine [Claritin] 10 mg PO DAILY@1200 11/24/21 09/19/23 History Budesonide-Formot 160-4.5 Mcg 2 puff INHALATION RT-BID 04/11/22 09/19/23 History [Symbicort 160-4.5 Mcg Inhaler] Empagliflozin [Jardiance] 10 mg PO DAILY@1200 04/11/22 09/19/23 History Apixaban [Eliquis] 5 mg PO BID@0600,1800 05/13/22 09/19/23 History Sacubitril/Valsartan [Entresto 24 1 tab PO BID@0600,1800 05/13/22 09/19/23 History mg-26 mg Tablet] Atorvastatin [Lipitor] 20 mg PO HS@1800 02/28/23 09/19/23 History Furosemide [Lasix] 40 mg PO DAILY 02/28/23 09/19/23 History Tiotropium 2.5 Mcg/Puff [Spiriva 2 puff INHALATION RT-DAILY 02/28/23 09/19/23 History Respimat 2.5 Mcg] Omeprazole [PriLOSEC] 20 mg PO DAILY@1200 06/27/23 09/19/23 History Spironolactone [Aldactone] 25 mg PO DAILY@1200 06/27/23 09/19/23 History ARIPiprazole [Abilify] 5 mg PO DAILY@0600 07/27/23 09/19/23 History Latanoprost [Latanoprost 0.005%] 1 drop BOTH EYES HS 07/27/23 09/19/23 History Super B Complex With Vitamin C 1 tab PO DAILY@1200 07/27/23 09/19/23 History Fish Oil 600mg 3 cap PO DAILY 09/19/23 09/19/23 History SILVER sulfADIAZINE Cream 1 applic TOPICAL DAILY 09/19/23 09/19/23 History [Silvadene 1% Cream] oxyCODONE-APAP 10-325MG [Percocet 1 tab PO TID 09/19/23 09/19/23 History 10-325 mg] Allergies Allergy/AdvReac Type Severity Reaction Status Date / Time amoxicillin trihydrate AdvReac Rapid Verified 09/19/23 18:04 [From Augmentin] Heart Rate potassium clavulanate AdvReac FELT LIKE Verified 09/19/23 18:04 [From Augmentin] HE WAS GOING TO PASS OUT FAST HEARTBEAT" pregabalin [From Lyrica] AdvReac Leg Verified 09/19/23 18:04 swelling venlafaxine [From Effexor] AdvReac Confusion Verified 09/19/23 18:04 Physical Exam Vitals: Vital Signs Temp Pulse Pulse Resp BP BP Pulse Ox 09/20/23 08:00 98 F 117 H 20 122/63 94 L 09/20/23 02:00 99.5 F 60 16 98/54 100 09/19/23 23:56 111 H 20 09/19/23 23:20 97.2 F L 111 H 20 102/63 92 L 09/19/23 21:43 97.8 F 108 H 17 108/61 90 L 09/19/23 21:21 110 H 110/61 09/19/23 21:11 108 H 09/19/23 20:16 96.9 F L 115 H 15 107/54 97 09/19/23 19:16 102 H 18 98/63 97 09/19/23 18:03 102 H 18 81/49 09/19/23 17:10 102 H 18 96/46 96 09/19/23 16:13 94 20 89/55 95 09/19/23 15:35 97.7 F 55 L 18 89/51 91 L Intake and Output 09/19/23 09/20/23 09/20/23 22:59 06:59 14:59 Intake Total 120 540 Output Total 600 Balance 120 -60 Intake: Oral 120 540 Output: Urine 600 Other: Voiding Method Urinal Urinal Weight 103.419 kg 103.419 kg Patient is comfortable no acute distress noted. He is sleeping but arousable. Examination of the heart S1 and S2 Examination of the lungs bilateral breath sounds are heard Abdomen is soft nontender Examination of lower extremities shows erythema right lower leg with multiple scratch de la cruz noted. 1+ edema noted with chronic skin changes Results - Lab Results Most recent lab results Calcium 7.9 mg/dL (8.4-10.2) L 09/20/23 06:48 Phosphorus 7.8 mg/dL (2.5-4.5) H 09/20/23 06:48 Magnesium 1.7 mg/dL (1.6-2.3) 09/20/23 06:48 09/20/23 06:48 09/20/23 06:48 Assessment and Plan Assessment: 1. Acute kidney injury, ATN currently nonoliguric. Etiology is hypotension. Renal function is currently improving. UA shows trace protein and small blood with hyaline casts 238. Entresto currently on hold. 2. Scabies 3. Right lower extremity cellulitis 4. Chronic persistent A-fib 5. History of alcohol abuse Plan: Continue with IV fluids Agree with holding Entresto for now Repeat labs in a.m. Recommend antibiotics for left lower extremity cellulitis. Thank you for the consultation. We will continue to follow the patient with you during his hospitalization.
[2023-09-20] MEDS: TAMSULOSIN 0.4 MG CAP.ER.24H PO SCH (13:29)
[2023-09-20] MEDS: MONTELUKAST 10 MG TAB PO SCH (13:30)
[2023-09-20] MEDS: LORATADINE 10 MG TAB PO SCH (13:30)
[2023-09-20] MEDS: PANTOPRAZOLE 40 MG TABLET PO SCH (13:30)
--- NOTE | 2023-09-20 13:30 | P.HPIM ---
History of Present Illness H&P Date: 09/20/23 Chief Complaint: Not feeling well This is a [address] Chavez. Chronic stable medical conditions include COPD, fibromyalgia, hypertension, osteoarthritis, chronic pancreatitis from alcoholism, peripheral neuropathy varicose veins, restless leg syndrome, BPH surgery, Alvarenga's esophagus and chronic low back pain from osteoarthritis. Alcohol cirrhosis. . cardioversion done for atrial fibrillation in March 2022. Patient presents with not feeling well. Cough. Increasing shortness of breath. No fever no chills. Some lower extremity swelling. Patient found to be back in A-fib in the ER. Patient is rather itching in the body. Some concern about scabies. Denies any fever and chills. Appetite fair. No change in bowel pattern. Review of systems: GEN.: Tired EYES: None HEENT: None NECK: None RESPIRATORY: As above CARDIOVASCULAR: As above GASTROINTESTINAL: None GENITOURINARY: None MUSCULOSKELETAL: Joint pains LYMPHATICS: None HEMATOLOGICAL: None PSYCHIATRY: None NEUROLOGICAL: None Past medical history to include: COPD, fibromyalgia, hypertension, osteoarthritis, chronic pancreatitis from alcoholism, peripheral neuropathy, varicose pains, restless leg syndrome, BPH with surgery, Alvarenga's esophagus, chronic low back pain from osteoarthritis, alcohol use disorder with cirrhosis, atrial fibrillation with ablation-went back into atrial fibrillation Social history: lives with his sister Ewelina. Smoked for close to 42 years. Stopped for a few months... Drinking alcohol for years. Stopped February 2022 Physical examination: VITAL SIGNS: 97.7, 55, 18, 89/51, 91% room air upon presentation GENERAL: BMI 30.9, sitting at the edge of the bed, scratching himself EYES: Pupils equal. Conjunctiva normal. HEENT: External appearance of nose and ears normal, oral cavity grossly normal. NECK: JVD raised; masses not palpable. HEART: Heart sounds irregular; edema. LUNGS: Respiratory rate increased; decreased breath sounds, prolonged expiration and wheezing ABDOMEN: Soft, , nontender, liver spleen not palpable, no masses palpable. di varification of recti . PSYCH: Alert and oriented x3; mood and affect anxiousl. MUSCULOSKELETAL:No Clubbing/cyanosis;muscles-grossly intact. evidence of OA NEUROLOGICAL: Cranial nerves grossly intact; no facial asymmetry, power and sensation grossly intact. LYMPHATICS: No lymph nodes palpable in the axilla and neck DERMATOLOGICAL: Several scattered areas of scratch de la cruz. Redness right lower extremity mid lower leg down to the ankle. Some breakdown of blisters INVESTIGATIONS, reviewed in the clinical context: September 20: White count 10.7 hemoglobin 11.4 platelets 342 sodium 133 potassium 4.1 BUN 97 creatinine 3.91 glucose 125 September 19: White count 8.5 hemoglobin 12.5 platelets 346 potassium 3.8 BUN 101 creatinine 5.25 lactic acid 2.1 Troponin I 0.042 proBNP 531 UA: Negative for nitrate leukoesterase. Influenza type A, type B, RSV, COVID-19: Not detected EKG tracing personally reviewed by me-atrial fibrillation with a rate of 116. Chest x-ray film personally reviewed by me-cardiomegaly. Previous labs: August 22, 2023: BUN 29.8. Creatinine 1.2 Assessment and plan: -Acute COPD exacerbation in an ex cigarette smoker DuoNeb every 4, Pulmicort 1 mg nebulizer twice a day, IV Solu-Medrol -Acute kidney injury suspect prerenal/ATN. Patient's creatinine was 1.2 in August 22, 2023. Admission creatinine 5.25 Entresto, Aldactone, Lasix held -Paroxysmal atrial flutter fibrillation a prior history of ablation cardioversion after that.: Now back in atrial fibrillation. Eliquis-currently held. Lopressor 12.5 p.o. twice daily for now -chronic congestive heart failure that from systolic and diastolic dysfunction EF 40 % Entresto Aldactone currently held -Right lower extremity cellulitis IV ceftriaxone - chronic pancreatitis from alcoholism: -Alcohol-induced cirrhosis: Diuretics currently held.. -Chronic fibromyalgia Flexeril 10 mg 3 times a day -Essential hypertension, currently blood pressure on the lower side -Possible scabies. ID consulted -Primary osteoarthritis, multiple joints bilaterally Pain medications as needed -Alcoholic peripheral neuropathy -restless leg syndrome Requip 4 mg daily at bedtime -Alvarenga's esophagus Protonix 40 mg a day -Full code. Consultation to nephrology. Cardiology. Diuretics held. Gentle hydration. Past Medical History Past Medical History: Atrial Fibrillation, Coronary Artery Disease (CAD), Heart Failure, COPD, Diabetes Mellitus, Eye Disorder, Fibromyalgia, Hypertension, Myocardial Infarction ([place]), Musculoskeletal Disorder, Osteoarthritis (OA), Prostate Disorder, Vascular Disorder Additional Past Medical History / Comment(s): Chronic cough, hx pancreatitis, bilateral glaucoma, neuropathy bilateral feet, poor circulation to legs, va ricose veins, RLS, hx BPH, colitis, gastritis, Alvarenga's esophagus, hx Shingles in 2012 with joint pain since, chronic low back pain, DDD. wound to right leg, scabies 06/2023 Last Myocardial Infarction Date:: 09/02/16 History of Any Multi-Drug Resistant Organisms: None Reported Past Surgical History: Appendectomy, Cardiac Ablation, Heart Catheterization, Joint Replacement, Orthopedic Surgery, Prostate Surgery Additional Past Surgical History / Comment(s): Right knee arthroscopy, right knee replacement, EGD, colonoscopy, TURP, cardioversion. Past Anesthesia/Blood Transfusion Reactions: No Reported Reaction Additional Past Anesthesia/Blood Transfusion Reaction / Comment(s): No hx blood transfusion. Past Psychological History: Anxiety, Depression Additional Psychological History / Comment(s): Pt resides with his sister Ewelina. Smoking Status: Former smoker Past Alcohol Use History: Occasional Additional Past Alcohol Use History / Comment(s): Started smoking at age 13, quit 10/2016, started smoking again and now quit just recently 09/2023 Past Drug Use History: Cocaine Additional Drug Use History / Comment(s): Hx cocaine use, none in 20-30 years. - Past Family History Father Family Medical History: CVA/TIA, Hypertension Additional Family Medical History / Comment(s): Father at the age of 38yrs from HTN/CVA. He was an alcoholic. Mother Family Medical History: COPD, Diabetes Mellitus Additional Family Medical History / Comment(s): Mother of emphysema at the age of 74 yrs (2003), mom had hx of drinking and smoking. Medications and Allergies Home Medications Medication Instructions Recorded Confirmed Type Montelukast [Singulair] 10 mg PO DAILY@1200 01/12/18 09/19/23 History Tamsulosin [Flomax] 0.4 mg PO DAILY@1200 11/08/21 09/19/23 History rOPINIRole HCL [Requip] 4 mg PO HS 11/08/21 09/19/23 History Cyclobenzaprine [Flexeril] 10 mg PO TID 11/24/21 09/19/23 History Loratadine [Claritin] 10 mg PO DAILY@1200 11/24/21 09/19/23 History Budesonide-Formot 160-4.5 Mcg 2 puff INHALATION RT-BID 04/11/22 09/19/23 History [Symbicort 160-4.5 Mcg Inhaler] Empagliflozin [Jardiance] 10 mg PO DAILY@1200 04/11/22 09/19/23 History Apixaban [Eliquis] 5 mg PO BID@0600,1800 05/13/22 09/19/23 History Sacubitril/Valsartan [Entresto 24 1 tab PO BID@0600,1800 05/13/22 09/19/23 History mg-26 mg Tablet] Atorvastatin [Lipitor] 20 mg PO HS@1800 02/28/23 09/19/23 History Furosemide [Lasix] 40 mg PO DAILY 02/28/23 09/19/23 History Tiotropium 2.5 Mcg/Puff [Spiriva 2 puff INHALATION RT-DAILY 02/28/23 09/19/23 History Respimat 2.5 Mcg] Omeprazole [PriLOSEC] 20 mg PO DAILY@1200 06/27/23 09/19/23 History Spironolactone [Aldactone] 25 mg PO DAILY@1200 06/27/23 09/19/23 History ARIPiprazole [Abilify] 5 mg PO DAILY@0600 07/27/23 09/19/23 History Latanoprost [Latanoprost 0.005%] 1 drop BOTH EYES HS 07/27/23 09/19/23 History Super B Complex With Vitamin C 1 tab PO DAILY@1200 07/27/23 09/19/23 History Fish Oil 600mg 3 cap PO DAILY 09/19/23 09/19/23 History SILVER sulfADIAZINE Cream 1 applic TOPICAL DAILY 09/19/23 09/19/23 History [Silvadene 1% Cream] oxyCODONE-APAP 10-325MG [Percocet 1 tab PO TID 09/19/23 09/19/23 History 10-325 mg] Allergies Allergy/AdvReac Type Severity Reaction Status Date / Time amoxicillin trihydrate AdvReac Rapid Verified 09/19/23 18:04 [From Augmentin] Heart Rate potassium clavulanate AdvReac FELT LIKE Verified 09/19/23 18:04 [From Augmentin] HE WAS GOING TO PASS OUT FAST HEARTBEAT" pregabalin [From Lyrica] AdvReac Leg Verified 09/19/23 18:04 swelling venlafaxine [From Effexor] AdvReac Confusion Verified 09/19/23 18:04 Physical Exam Vitals: Vital Signs Temp Pulse Pulse Resp BP BP Pulse Ox 09/20/23 08:00 98 F 117 H 20 122/63 94 L 09/20/23 02:00 99.5 F 60 16 98/54 100 09/19/23 23:56 111 H 20 09/19/23 23:20 97.2 F L 111 H 20 102/63 92 L 09/19/23 21:43 97.8 F 108 H 17 108/61 90 L 09/19/23 21:21 110 H 110/61 09/19/23 21:11 108 H 09/19/23 20:16 96.9 F L 115 H 15 107/54 97 09/19/23 19:16 102 H 18 98/63 97 09/19/23 18:03 102 H 18 81/49 09/19/23 17:10 102 H 18 96/46 96 09/19/23 16:13 94 20 89/55 95 09/19/23 15:35 97.7 F 55 L 18 89/51 91 L Intake and Output 09/19/23 09/20/23 09/20/23 22:59 06:59 14:59 Intake Total 120 540 Output Total 600 Balance 120 -60 Intake: Oral 120 540 Output: Urine 600 Other: Voiding Method Urinal Weight 103.419 kg 103.419 kg Results CBC & Chem 7: 09/20/23 06:48 09/20/23 06:48 Labs: Abnormal Lab Results - Last 24 Hours (Table) 09/19/23 09/19/23 09/19/23 Range/Units 16:02 16:02 16:02 RBC 3.74 L (4.30-5.90) m/uL Hgb 12.5 L (13.0-17.5) gm/dL Hct 36.3 L (39.0-53.0) % Lymphocytes # 0.8 L (1.0-4.8) k/uL Sodium 133 L (137-145) mmol/L Carbon Dioxide 14 L (22-30) mmol/L BUN 101 H* (9-20) mg/dL Creatinine 5.25 H (0.66-1.25) mg/dL Glucose 125 H (74-99) mg/dL Plasma Lactic Acid Carlos Manuel 2.1 H* (0.7-2.0) mmol/L Calcium 8.1 L (8.4-10.2) mg/dL Phosphorus (2.5-4.5) mg/dL AST 84 H (17-59) U/L ALT 51 H (4-49) U/L Troponin I (0.000-0.034) ng/mL Total Protein (6.3-8.2) g/dL Albumin 3.4 L (3.5-5.0) g/dL Urine Protein (Negative) Urine Glucose (UA) (Negative) Urine Blood (Negative) Urine RBC (0-5) /hpf Calcium Oxalate Crystal (None) /hpf Amorphous Sediment (None) /hpf Hyaline Casts (0-2) /lpf Urine Mucus (None) /hpf 09/19/23 09/20/23 09/20/23 Range/Units 16:02 03:04 06:48 RBC (4.30-5.90) m/uL Hgb (13.0-17.5) gm/dL Hct (39.0-53.0) % Lymphocytes # (1.0-4.8) k/uL Sodium 133 L (137-145) mmol/L Carbon Dioxide 10 L (22-30) mmol/L BUN 97 H (9-20) mg/dL Creatinine 3.91 H (0.66-1.25) mg/dL Glucose 125 H (74-99) mg/dL Plasma Lactic Acid Carlos Manuel (0.7-2.0) mmol/L Calcium 7.9 L (8.4-10.2) mg/dL Phosphorus 7.8 H (2.5-4.5) mg/dL AST 65 H (17-59) U/L ALT 51 H (4-49) U/L Troponin I 0.042 H* (0.000-0.034) ng/mL Total Protein 6.0 L (6.3-8.2) g/dL Albumin 3.2 L (3.5-5.0) g/dL Urine Protein Trace H (Negative) Urine Glucose (UA) 3+ H (Negative) Urine Blood Small H (Negative) Urine RBC 22 H (0-5) /hpf Calcium Oxalate Crystal Rare H (None) /hpf Amorphous Sediment Rare H (None) /hpf Hyaline Casts 238 H (0-2) /lpf Urine Mucus Rare H (None) /hpf Thrombosis Risk Factor Assmnt - Choose All That Apply Each Factor Represents 1 point: Obesity (BMI >25), Swollen legs (current) Each Risk Factor Represents 2 Points: Age 61-74 years Thrombosis Risk Factor Assessment Total Risk Factor Score: 4 Thrombosis Risk Factor Assessment Level: Moderate Risk
--- NOTE | 2023-09-20 14:12 | US ---
EXAMINATION TYPE: US renals and bladder DATE OF EXAM: 09/19/2023 COMPARISON: 11/26/21 CLINICAL INDICATION: Male, 63 years old with history of bo; BO EXAM MEASUREMENTS: Right Kidney: 11.8 x 5.4 x 5.7 cm Left Kidney: 12.0 x 5.2 x 7.5 cm Right Kidney: No hydronephrosis or masses seen Left Kidney: Lobulated contour, no obvious mass seen Bladder: wnl Bilateral Jets seen: No due to bowel gas There is no evidence for hydronephrosis at this point in time. No nephrolithiasis is seen. No lora s are identified. The urinary bladder is anechoic. Bilateral ureteral jets are seen. IMPRESSION: No discrete abnormality is seen. Hepatic steatosis.
[2023-09-20] MEDS: IPRATROPIUM-ALBUTEROL 3 ML NEB INHALATION SCH (15:41)
[2023-09-20] MEDS: methylPREDNISolone SOD SUCCI 40 MG/ML 1 ML VIAL IV SCH (17:18)
[2023-09-20] MEDS: ATORVASTATIN 20 MG TAB PO SCH (17:18)
[2023-09-20] MEDS: FORMOTEROL FUMARATE 20 MCG/2 ML NEBU INHALATION SCH (20:20)
[2023-09-20] MEDS: BUDESONIDE 1 MG/2 ML NEBU INHALATION SCH (20:20)
--- NOTE | 2023-09-20 21:59 | P.CONS ---
History of Present Illness - Reason for Consult Consult date: 09/20/23 Scabies Requesting physician: Jamal Tamayo - Chief Complaint Increasing shortness of breath x few days - History of Present Illness Patient is a 63-year-old male with a past medical history significant for coronary artery disease heart failure diabetes mellitus hypertension atrial fibrillation did have a lower extremity cellulitis patient was brought into the hospital for evaluation of cough and difficulty breathing in this patient symptom has been getting worse over the last week before presentation to the hospital patient denies having any chest pain cough is mostly dry moderate intensity with occasional sputum production patient denies having any nausea no vomiting no abdominal pain or any diarrhea no URI symptoms patient also have a rash that seem to be chronic to both upper and lower extremity possibly attributed to the itching apparently patient mention has been diagnosed with scabies by his primary care physician however when asked specifically how he was diagnosed patient did not have any ulcer when asked specifically the patient denies having any itching to these lesions and the patient do not have any lesion on the trunk no mucous membrane lesion patient did have a wound on the dorsal aspect of the right foot with some purulent drainage and also have a erythema and some dermatitis to the right leg with the patient has 4 couple of days to week has been complaining of some dull aching pain to that area of mild to moderate intensity without any radiation pain is mostly at the time of dressing changes patient on presentation to the hospital was afebrile and no fever have been recorded subsequently patient was not tachycardic hypotensive or hypoxic white count of 10.76 with a left shift did have elevated BUN and creatinine liver isms are mildly elevated urine was negative influenza RSV COVID testing was negative patient did have a chest x-ray no evidence for acute cardiopulmonary disease Review of Systems Positive point and negatives has been mentioned in the HPI, complete review of systems was performed and all other systems are negative Past Medical History Past Medical History: Atrial Fibrillation, Coronary Artery Disease (CAD), Heart Failure, COPD, Diabetes Mellitus, Eye Disorder, Fibromyalgia, Hypertension, Myocardial Infarction ([place]), Musculoskeletal Disorder, Osteoarthritis (OA), Prostate Disorder, Vascular Disorder Additional Past Medical History / Comment(s): Chronic cough, hx pancreatitis, bilateral glaucoma, neuropathy bilateral feet, poor circulation to legs, varicose veins, RLS, hx BPH, colitis, gastritis, Alvarenga's esophagus, hx Shingles in 2013 with joint pain since, chronic low back pain, DDD. wound to right leg, scabies 06/2023 Last Myocardial Infarction Date:: 09/02/16 History of Any Multi-Drug Resistant Organisms: None Reported Past Surgical History: Appendectomy, Cardiac Ablation, Heart Catheterization, Joint Replacement, Orthopedic Surgery, Prostate Surgery Additional Past Surgical History / Comment(s): Right knee arthroscopy, right knee replacement, EGD, colonoscopy, TURP, cardioversion. Past Anesthesia/Blood Transfusion Reactions: No Reported Reaction Additional Past Anesthesia/Blood Transfusion Reaction / Comm: No hx blood transfusion. Past Psychological History: Anxiety, Depression Additional Psychological History / Comment(s): Pt resides with his sister Ewelina. Smoking Status: Former smoker Past Alcohol Use History: Occasional Additional Past Alcohol Use History / Comment(s): Started smoking at age 13, quit 10/2016, started smoking again and now quit just recently 09/2023 Past Drug Use History: Cocaine Additional Drug Use History / Comment(s): Hx cocaine use, none in 20-30 years. - Past Family History Father Family Medical History: CVA/TIA, Hypertension Additional Family Medical History / Comment(s): Father at the age of 38yrs from HTN/CVA. He was an alcoholic. Mother Family Medical History: COPD, Diabetes Mellitus Additional Family Medical History / Comment(s): Mother of emphysema at the age of 74 yrs (2003), mom had hx of drinking and smoking. Medications and Allergies Home Medications Medication Instructions Recorded Confirmed Type Montelukast [Singulair] 10 mg PO DAILY@1200 01/12/18 09/19/23 History Tamsulosin [Flomax] 0.4 mg PO DAILY@1200 11/08/21 09/19/23 History rOPINIRole HCL [Requip] 4 mg PO HS 11/08/21 09/19/23 History Cyclobenzaprine [Flexeril] 10 mg PO TID 11/24/21 09/19/23 History Budesonide-Formot 160-4.5 Mcg 2 puff INHALATION RT-BID 04/11/22 09/19/23 History [Symbicort 160-4.5 Mcg Inhaler] Empagliflozin [Jardiance] 10 mg PO DAILY@1200 04/11/22 09/19/23 History Apixaban [Eliquis] 5 mg PO BID@0600,1800 05/13/22 09/19/23 History Sacubitril/Valsartan [Entresto 24 1 tab PO BID@0600,1800 05/13/22 09/19/23 History mg-26 mg Tablet] Atorvastatin [Lipitor] 20 mg PO HS@1800 02/28/23 09/19/23 History Tiotropium 2.5 Mcg/Puff [Spiriva 2 puff INHALATION RT-DAILY 02/28/23 09/19/23 History Respimat 2.5 Mcg] Omeprazole [PriLOSEC] 20 mg PO DAILY@1200 06/27/23 09/19/23 History Spironolactone [Aldactone] 25 mg PO DAILY@1200 06/27/23 09/19/23 History ARIPiprazole [Abilify] 5 mg PO DAILY@0600 07/27/23 09/19/23 History Latanoprost [Latanoprost 0.005%] 1 drop BOTH EYES HS 07/27/23 09/19/23 History Super B Complex With Vitamin C 1 tab PO DAILY@1200 07/27/23 09/19/23 History Fish Oil 600mg 3 cap PO DAILY 09/19/23 09/19/23 History oxyCODONE-APAP 10-325MG [Percocet 1 tab PO TID 09/19/23 09/19/23 History 10-325 mg] Cephalexin [Keflex] 500 mg PO TID #21 cap 09/26/23 Rx Furosemide [Lasix] 40 mg PO BID #60 tab 09/26/23 Rx Loratadine [Claritin] 5 mg PO BID #0 09/26/23 09/19/23 Rx Metoprolol Tartrate [Lopressor] 25 mg PO BID #60 tab 09/26/23 Rx Nystatin 100,000Unit/gm Cream 1 applic TOPICAL BID #1 each 09/26/23 Rx [Mycostatin Cream] Triamcinolone 0.1% Cream [Kenalog 1 applic TOPICAL BID #1 each 09/26/23 Rx 0.1% Cream] Allergies Allergy/AdvReac Type Severity Reaction Status Date / Time amoxicillin trihydrate AdvReac Rapid Verified 09/19/23 18:04 [From Augmentin] Heart Rate potassium clavulanate AdvReac FELT LIKE Verified 09/19/23 18:04 [From Augmentin] HE WAS GOING TO PASS OUT FAST HEARTBEAT" pregabalin [From Lyrica] AdvReac Leg Verified 09/19/23 18:04 swelling venlafaxine [From Effexor] AdvReac Confusion Verified 09/19/23 18:04 Physical Exam Vitals: Vital Signs Temp Pulse Pulse Resp BP BP Pulse Ox 09/20/23 08:00 98 F 117 H 20 122/63 94 L 09/20/23 02:00 99.5 F 60 16 98/54 100 09/19/23 23:56 111 H 20 09/19/23 23:20 97.2 F L 111 H 20 102/63 92 L 09/19/23 21:43 97.8 F 108 H 17 108/61 90 L 09/19/23 21:21 110 H 110/61 09/19/23 21:11 108 H 09/19/23 20:16 96.9 F L 115 H 15 107/54 97 09/19/23 19:16 102 H 18 98/63 97 09/19/23 18:03 102 H 18 81/49 09/19/23 17:10 102 H 18 96/46 96 09/19/23 16:13 94 20 89/55 95 09/19/23 15:35 97.7 F 55 L 18 89/51 91 L Intake and Output 09/19/23 09/20/23 09/20/23 22:59 06:59 14:59 Intake Total 120 540 Output Total 600 Balance 120 -60 Intake: Oral 120 540 Output: Urine 600 Other: Voiding Method Urinal Weight 103.419 kg 103.419 kg GENERAL DESCRIPTION: Middle-aged male up in bed, no distress. No tachypnea or accessory muscle of respiration use. HEENT: Shows Pallor , no scleral icterus. Oral mucous membrane is dry. No pharyngeal erythema or thrush NECK: Trachea central, no thyromegaly. LUNGS: Unlabored breathing. coarse breath sounds bilaterally HEART: S1, S2, regular rate and rhythm. No loud murmur ABDOMEN: Soft, no tenderness , guarding or rigidity, no organomegaly EXTREMITIES: Right lower extremity did have some erythematous rash with a wound on the dorsum aspect of the right foot with some purulent drainage SKIN: Patient did have a rash on her bilateral upper lower extremity mostly from scratch de la cruz without any cellulitis clinically not behaving as scabies NEUROLOGICAL: The patient is awake, alert, oriented x3, mood and affect normal. Results CBC & Chem 7: 09/22/23 06:59 09/26/23 06:17 Labs: Abnormal Lab Results - Last 24 Hours (Table) 09/19/23 09/19/23 09/19/23 Range/Units 16:02 16:02 16:02 RBC 3.74 L (4.30-5.90) m/uL Hgb 12.5 L (13.0-17.5) gm/dL Hct 36.3 L (39.0-53.0) % Lymphocytes # 0.8 L (1.0-4.8) k/uL Sodium 133 L (137-145) mmol/L Carbon Dioxide 14 L (22-30) mmol/L BUN 101 H* (9-20) mg/dL Creatinine 5.25 H (0.66-1.25) mg/dL Glucose 125 H (74-99) mg/dL Plasma Lactic Acid Carlos Manuel 2.1 H* (0.7-2.0) mmol/L Calcium 8.1 L (8.4-10.2) mg/dL Phosphorus (2.5-4.5) mg/dL AST 84 H (17-59) U/L ALT 51 H (4-49) U/L Troponin I (0.000-0.034) ng/mL Total Protein (6.3-8.2) g/dL Albumin 3.4 L (3.5-5.0) g/dL Urine Protein (Negative) Urine Glucose (UA) (Negative) Urine Blood (Negative) Urine RBC (0-5) /hpf Calcium Oxalate Crystal (None) /hpf Amorphous Sediment (None) /hpf Hyaline Casts (0-2) /lpf Urine Mucus (None) /hpf 09/19/23 09/20/23 09/20/23 Range/Units 16:02 03:04 06:48 RBC (4.30-5.90) m/uL Hgb (13.0-17.5) gm/dL Hct (39.0-53.0) % Lymphocytes # (1.0-4.8) k/uL Sodium 133 L (137-145) mmol/L Carbon Dioxide 10 L (22-30) mmol/L BUN 97 H (9-20) mg/dL Creatinine 3.91 H (0.66-1.25) mg/dL Glucose 125 H (74-99) mg/dL Plasma Lactic Acid Carlos Manuel (0.7-2.0) mmol/L Calcium 7.9 L (8.4-10.2) mg/dL Phosphorus 7.8 H (2.5-4.5) mg/dL AST 65 H (17-59) U/L ALT 51 H (4-49) U/L Troponin I 0.042 H* (0.000-0.034) ng/mL Total Protein 6.0 L (6.3-8.2) g/dL Albumin 3.2 L (3.5-5.0) g/dL Urine Protein Trace H (Negative) Urine Glucose (UA) 3+ H (Negative) Urine Blood Small H (Negative) Urine RBC 22 H (0-5) /hpf Calcium Oxalate Crystal Rare H (None) /hpf Amorphous Sediment Rare H (None) /hpf Hyaline Casts 238 H (0-2) /lpf Urine Mucus Rare H (None) /hpf Assessment and Plan (1) Cellulitis of right lower extremity Status: Acute Code(s): L03.115 - CELLULITIS OF RIGHT LOWER LIMB SNOMED Code(s): 30474799204359483 (2) Penicillin allergy Status: Acute Code(s): Z88.0 - ALLERGY STATUS TO PENICILLIN SNOMED Code(s): 78404513 (3) Rash Status: Acute Code(s): R21 - RASH AND OTHER NONSPECIFIC SKIN ERUPTION SNOMED Code(s): 868060109 Plan: 1patient did have multiple skin lesion on the upper and lower extremity more likely related to the patient scratching them patient denies having any itching associated with it clinically not behaving as scabies 2-patient also have a wound on the dorsal aspect of the right foot with evidence of some slough tissue and superficial ulceration to the right lower leg and surrounding erythema concerning for possible cellulitis 3-penicillin allergy that will limit the number of antibiotics safe to use 4-we will apply Medihoney to the right foot wound followed by moist dressing and Aquacel silver dressing to the right lower leg wound change daily 5-empirically start the patient Rocephin 2 g daily We will follow on clinical condition and cultures to further adjust medication if needed Thank you for this consultation we will follow the patient along with you Dictation was produced using [employer] [place]-the [employer] dictation software. please excuse any grammatical, word or spelling errors. Time with Patient: Greater than 30
[2023-09-20] MEDS: METOPROLOL TARTRATE 12.5 MG TAB PO SCH (22:21)
[2023-09-21 06:55] LABS: ALT 46 U/L (4-49); AST 52 U/L (17-59); African American GFR (CKD) 39 (>60 ml/min/1.73 sqM); Albumin 3.1 g/dL (3.5-5.0); Albumin/Globulin Ratio 1.1; Alkaline Phosphatase 94 U/L (38-126); Anion Gap 11 mmol/L; Blood Urea Nitrogen 83 mg/dL (9-20); Calcium 8.5 mg/dL (8.4-10.2); Carbon Dioxide 14 mmol/L (22-30); Chloride 110 mmol/L (98-107); Globulin 2.8 g/dL; Glucose 301 mg/dL (74-99); Non-African American GFR(CKD) 33 (>60 ml/min/1.73 sqM); Potassium 4.1 mmol/L (3.5-5.1); Sodium 135 mmol/L (137-145); Total Bilirubin 0.3 mg/dL (0.2-1.3); Total Protein 5.9 g/dL (6.3-8.2)
--- NOTE | 2023-09-21 09:38 | P.PN ---
Subjective Progress Note Date: 09/21/23 Consult reason: congestive heart failure History of present illness: History of present illness: This is a 63-year-old male patient of Dr. Stephanie Avila with past medical history of chronic systolic heart failure, alcohol abuse, aortic regurgitation, persistent atrial fibrillation, chronic bilateral lower extremity edema, cellulitis of the lower extremities, history of parasitic infection. We have been asked to evaluate the patient for CHF. Patient presented to the emergency center on 09/19 with cough and difficulty breathing. Patient states that he quit smoking yesterday. Patient also had increased lower extremity edema which she states is better now. He states he has had some weight loss of a few pounds. He also complains of diarrhea prior to his arrival. He denies having any nausea or vomiting. He states he has a good appetite. He states he is taking all of his medications as directed. Regarding alcohol use, patient states he quit 1 week ago but was drinking 1-2 beers per week. Patient was found to have scabies and is in isolation for this. Initial blood pressure was 89/51. EKG atrial fibrillation at 116 bpm. Chest x-ray: No acute process WBC 8.5, hemoglobin 12.5, platelet count 346. INR 0.9. Sodium 133, potassium 4.1. Patient presented with BUN of 101 and creatinine 5.25. BUN is now 97 and creatinine 3.91. Lactic acid initially 2 point 1 repeat 1.7. Calcium 7.9. AST 65, ALT 51. Troponin 0.042. proBNP 531. Albumin 3.2. Influenza A, influenza B, RSV, COVID-19 not detected. Home cardiac medications: Eliquis 5 mg twice daily, atorvastatin 20 mg at 6 PM, Lasix 40 mg daily, Entresto 24 mg - 26 mg 1 tablet twice daily, spironolactone 25 mg daily. Echocardiogram performed on 07/26/2023 in the office revealed EF of 55%. Moderate concentric left ventricular hypertrophy. Severe aortic regurgitation. Moderate mitral regurgitation. Moderate tricuspid regurgitation. Moderately increased pulmonary artery systolic pressure of 45 mmHg. 09/21 Patient is seen today in follow-up. He denies any significant shortness of breath and no chest pain. His main concern is his right leg. He has erythema and wound covered as well. He has refused to wear leg wraps. Heart rate is in the 80s, blood pressure 121/75, pulse ox 97% on room air. Sodium 135, potassium 4.1, BUN 83 creatinine 2.06. Physical examination: Gen: This is a disheveled 63-year-old male in no acute distress VS: reviewed blood pressure 122/63, heart rate 117. Pulse ox 94% on room air. HEENT: Head is atraumatic, normocephalic. Pupils equal, round. Sclerae is anicteric. NECK: Supple. No JVD. LUNGS: Clear to auscultation. No wheezes or rhonchi. No intercostal retractions. HEART: Regular rate and rhythm. No murmur. ABDOMEN: Soft No tenderness. EXTREMITIES: Edema and erythema lower extremity. NEUROLOGICAL: Patient is awake, alert and oriented x3. Assessment: Persistent atrial fibrillation Acute kidney injury Chronic systolic heart failure Severe aortic regurgitation, moderate mitral regurgitation, moderate tricuspid regurgitation Chronic lower extremity edema and cellulitis Scabies infestation Alcohol abuse, quit 1 week ago Tobacco use and dependence Plan: Resume patient's home cardiac medications, noted that Entresto on hold due to acute kidney injury. No need to repeat echocardiogram Patient may be resumed on Eliquis at a lower dose of 2.5 mg twice daily due to abnormal renal function Repeat renal functions in the morning If renal function is improved tomorrow, plan to increase Eliquis to 5 mg twice daily Cardiology will sign off this case and follow on an as-needed basis. Please reconsult for any new concerns. Patient may follow-up in the office in one to 2 weeks. Nurse practitioner note has been reviewed, I agree with documented findings and plan of care. Patient was seen and examined. Objective - Vital Signs Vital signs: Vital Signs Temp 97.5 F L 09/21/23 02:00 Pulse 103 H 09/21/23 02:00 Resp 16 09/21/23 02:00 BP 110/71 09/21/23 02:00 Pulse Ox 94 L 09/21/23 02:00 FiO2 Intake & Output 09/20/23 09/21/23 09/21/23 18:59 06:59 18:59 Intake Total 540 1400 Output Total 900 800 Balance -360 600 Intake: Intake, IV Titration 900 Amount Sodium Chloride 0.9% 1, 900 000 ml @ 75 mls/hr IV . [id number] [facility] Rx#:[id number] Oral 540 500 Output: Urine 900 800 Other: Voiding Method Urinal Urinal - Labs CBC & Chem 7: 09/20/23 06:48 09/21/23 06:14 Labs: Abnormal Lab Results - Last 24 Hours (Table) 09/20/23 09/21/23 Range/Units 06:48 06:14 WBC 10.76 H (4.50-10.00) X 10*3/uL RBC 3.50 L (4.40-5.60) X 10*6/uL Hgb 11.4 L (13.0-17.0) g/dL Hct 33.6 L (39.6-50.0) % MCH 32.6 H (27.0-32.0) pg MPV 9.2 L (9.5-12.2) FL Immature Gran # 0.11 H (0.00-0.04) X 10*3/uL Neutrophils # 9.05 H (1.80-7.70) X 10*3/uL Lymphocytes # 0.60 L (0.90-5.00) X 10*3/uL Eosinophils # 0.03 L (0.04-0.35) X 10*3/uL Sodium 135 L (137-145) mmol/L Chloride 110 H (98-107) mmol/L Carbon Dioxide 14 L (22-30) mmol/L BUN 83 H (9-20) mg/dL Creatinine 2.06 H (0.66-1.25) mg/dL Glucose 301 H (74-99) mg/dL Total Protein 5.9 L (6.3-8.2) g/dL Albumin 3.1 L (3.5-5.0) g/dL
[2023-09-21] MEDS: APIXABAN 2.5 MG TABLET PO SCH (10:37)
--- NOTE | 2023-09-21 11:29 | P.PN ---
Subjective Patient is seen for follow-up for acute kidney injury. Renal function is improving. And is maintained on IV fluids. Serum creatinine decreased to 2.0 from 5.2 on initial admission. Objective - Vital Signs Vital signs: Vital Signs Temp 97.5 F L 09/21/23 02:00 Pulse 86 09/21/23 09:21 Resp 16 09/21/23 07:56 BP 121/75 09/21/23 07:56 Pulse Ox 94 L 09/21/23 02:00 FiO2 Intake & Output 09/20/23 09/21/23 09/21/23 18:59 06:59 18:59 Intake Total 540 1400 Output Total 900 800 Balance -360 600 Intake: Intake, IV Titration 900 Amount Sodium Chloride 0.9% 1, 900 000 ml @ 75 mls/hr IV . [id number] [facility] Rx#:[id number] Oral 540 500 Output: Urine 900 800 Other: Voiding Method Urinal Urinal - Exam Patient is awake, comfortable, no acute distress Examination of lower extremities shows erythema in the right leg. Trace edema noted bilaterally with chronic skin changes. Patient is alert oriented x 3. - Labs CBC & Chem 7: 09/20/23 06:48 09/21/23 06:14 Labs: Abnormal Lab Results - Last 24 Hours (Table) 09/21/23 Range/Units 06:14 Sodium 135 L (137-145) mmol/L Chloride 110 H (98-107) mmol/L Carbon Dioxide 14 L (22-30) mmol/L BUN 83 H (9-20) mg/dL Creatinine 2.06 H (0.66-1.25) mg/dL Glucose 301 H (74-99) mg/dL Total Protein 5.9 L (6.3-8.2) g/dL Albumin 3.1 L (3.5-5.0) g/dL Assessment and Plan Assessment: 1. Acute kidney injury, ATN currently nonoliguric. Etiology is hypotension. Renal function is currently improving. UA shows trace protein and small blood with hyaline casts 238. Entresto currently on hold. 2. Scabies 3. Right lower extremity cellulitis 4. Chronic persistent A-fib 5. History of alcohol abuse 6. Nongap metabolic acidosis associated with acute kidney injury Plan: Continue with IV fluids Switch to IV bicarb Agree with holding Entresto for now Repeat labs in a.m. Recommend antibiotics for right lower extremity cellulitis.
--- NOTE | 2023-09-21 14:55 | P.PN ---
Subjective Progress Note Date: 09/21/23 Principal diagnosis: Reason for follow-up is right lower extremity wound cellulitis rash and a question of scabies Patient is a 63-year-old male with a past medical history significant for coronary artery disease heart failure diabetes mellitus hypertension atrial fibrillation did have a lower extremity cellulitis patient was brought into the hospital for evaluation of cough and difficulty breathing, patient also have multiple skin lesion likely from scratching on the extremities and did have wound to the right lower extremity and concern for possible right leg c ellulitis. On today's evaluation that is 09/21/2023, the patient remains to be afebrile, patient is currently breathing comfortably on room air, the patient denies chest pain did have occasional cough but not bring up any sputum, patient denies abdominal pain, no nausea no vomiting or any diarrhea has been reported. Denies any worsening pain to the right lower extremity or any itching to upper or lower extremity. Patient did have white count of 10.76 as of yesterday creatinine is 2.06 Objective - Vital Signs Vital signs: Vital Signs Temp 97.9 F 09/21/23 12:39 Pulse 106 H 09/21/23 12:39 Resp 16 09/21/23 12:39 BP 125/76 09/21/23 12:39 Pulse Ox 93 L 09/21/23 12:39 FiO2 Intake & Output 09/20/23 09/21/23 09/21/23 18:59 06:59 18:59 Intake Total 540 1400 Output Total 900 800 Balance -360 600 Intake: Intake, IV Titration 900 Amount Sodium Chloride 0.9% 1, 900 000 ml @ 75 mls/hr IV . [id number] [facility] Rx#:[id number] Oral 540 500 Output: Urine 900 800 Other: Voiding Method Urinal Urinal Urinal - Exam GENERAL DESCRIPTION: Middle-age male lying in bed in no distress RESPIRATORY SYSTEM: Unlabored breathing , decreased breath sounds at bases HEART: S1 S2 regular rate and rhythm , ABDOMEN: Soft , no tenderness EXTREMITIES: Patient did have a minimal erythema to the right lower leg and some weeping edema right foot wound is currently dressed SKIN: Multiple lesion on bilateral upper lower extremity likely from scratching with no evidence of any cellulitis - Labs CBC & Chem 7: 09/20/23 06:48 09/21/23 06:14 Labs: Abnormal Lab Results - Last 24 Hours (Table) 09/21/23 Range/Units 06:14 Sodium 135 L (137-145) mmol/L Chloride 110 H (98-107) mmol/L Carbon Dioxide 14 L (22-30) mmol/L BUN 83 H (9-20) mg/dL Creatinine 2.06 H (0.66-1.25) mg/dL Glucose 301 H (74-99) mg/dL Total Protein 5.9 L (6.3-8.2) g/dL Albumin 3.1 L (3.5-5.0) g/dL Assessment and Plan (1) Wound of right lower extremity Current Visit: Yes Status: Acute Code(s): S81.801A - UNSPECIFIED OPEN WOUND, RIGHT LOWER LEG, INITIAL ENCOUNTER SNOMED Code(s): 10038675890216458 (2) Rash Current Visit: Yes Status: Acute Code(s): R21 - RASH AND OTHER NONSPECIFIC SKIN ERUPTION SNOMED Code(s): 359776890 (3) Cellulitis of right lower extremity Current Visit: No Status: Acute Code(s): L03.115 - CELLULITIS OF RIGHT LOWER LIMB SNOMED Code(s): 57897835819915727 (4) Penicillin allergy Current Visit: No Status: Acute Code(s): Z88.0 - ALLERGY STATUS TO PENICILLIN SNOMED Code(s): 73025132 Plan: 1patient did have multiple skin lesion on the upper and lower extremity more likely related to the patient scratching them patient denies having any itching associated with it clinically not behaving as scabies 2-patient also have a wound on the dorsal aspect of the right foot with evidence of some slough tissue and superficial ulceration to the right lower leg and surrounding erythema concerning for possible cellulitis 3-penicillin allergy that will limit the number of antibiotics safe to use 4-to continue local wound care with Medihoney to the right foot wound followed by moist dressing and Aquacel silver dressing to the right lower leg wound change daily 5-patient to continue with Rocephin 2 g daily and monitor clinical course closely Dictation was produced using [employer] software. please excuse any grammatical, word or spelling errors. Time with Patient: Less than 30
[2023-09-21] MEDS: DEXTROSE 5% IN WATER 1,000 ML with SODIUM BICARB (1 MEQ/ML) 150 ML IV SCH (19:09)
--- NOTE | 2023-09-21 19:34 | P.PN ---
Progress Note - Text Progress Note Date: 09/21/23 Chief Complaint: Not feeling well This is a [address] Chavez. Chronic stable medical conditions include COPD, fibromyalgia, hypertension, osteoarthritis, chronic pancreatitis from alcoholism, peripheral neuropathy varicose veins, restless leg syndrome, B PH surgery, Alvarenga's esophagus and chronic low back pain from osteoarthritis. Alcohol cirrhosis. . cardioversion done for atrial fibrillation in March 2022. Patient presents with not feeling well. Cough. Increasing shortness of breath. No fever no chills. Some lower extremity swelling. Patient found to be back in A-fib in the ER. Patient is rather itching in the body. Some concern about scabies. Denies any fever and chills. Appetite fair. No change in bowel pattern. September 21: Patient has multiple wounds on the upper and lower extremity from scratching. Seen by ID. Does not feel it scabies. Also wound of the right lower extremity. IV ceftriaxone. Breathing better. On bronchodilators. Getting Medihoney for the right foot. And Aquacel silver dressing. Eating close to 100%. Improvement in kidney function. Sodium bicarbonate drip. Active Medications Albuterol/Ipratropium (Ipratropium-Albuterol 3 Ml Neb) 3 ml INHALATION RT-QID [facility] Last Admin: 09/21/23 16:43 Dose: 3 ml Apixaban (Apixaban 2.5 Mg Tablet) 2.5 mg PO BID [facility]; Protocol Last Admin: 09/21/23 10:37 Dose: 2.5 mg Aripiprazole (Aripiprazole 5 Mg Tab) 5 mg PO DAILY@0600 [facility] Last Admin: 09/21/23 06:00 Dose: 5 mg Atorvastatin Calcium (Atorvastatin 20 Mg Tab) 20 mg PO HS@1800 [facility] Last Admin: 09/21/23 17:37 Dose: 20 mg Budesonide (Budesonide 1 Mg/2 Ml Nebu) 1 mg INHALATION RT-BID [facility] Last Admin: 09/21/23 08:57 Dose: 1 mg Cyclobenzaprine HCl (Cyclobenzaprine 10 Mg Tab) 10 mg PO TID [facility] Last Admin: 09/21/23 17:37 Dose: 10 mg Formoterol Fumarate (Formoterol Fumarate 20 Mcg/2 Ml Nebu) 20 mcg INHALATION RT-BID [facility] Last Admin: 09/21/23 08:57 Dose: 20 mcg Hydromorphone HCl (Hydromorphone 0.5 Mg/0.5 Ml Syringe) 0.5 mg IVP Q4HR PRN PRN Reason: Pain Last Admin: 09/20/23 03:15 Dose: 0.5 mg Ceftriaxone Sodium 2 gm/ (Sodium Chloride) 50 mls @ 100 mls/hr IVPB Q24HR [facility]; Protocol Last Admin: 09/21/23 10:37 Dose: 100 mls/hr Sodium Bicarbonate 150 ml/ (Dextrose/Water) 1,150 mls @ 80 mls/hr IV .[id number] [facility] Last Admin: 09/21/23 19:09 Dose: 80 mls/hr Latanoprost (Latanoprost 0.005% Ophth Drops 2.5 Ml Btl) 1 drops BOTH EYES [facility] Last Admin: 09/20/23 22:57 Dose: 1 drops Loratadine (Loratadine 10 Mg Tab) 10 mg PO DAILY@1200 [facility] Last Admin: 09/21/23 13:35 Dose: 10 mg Methylprednisolone Sodium Succinate (Methylprednisolone Sod Succi 40 Mg/Ml 1 Ml Vial) 40 mg IV Q8HR [facility] Last Admin: 09/21/23 18:25 Dose: 40 mg Metoprolol Tartrate (Metoprolol Tartrate 12.5 Mg Tab) 12.5 mg PO BID [facility] Last Admin: 09/21/23 10:35 Dose: 12.5 mg Montelukast Sodium (Montelukast 10 Mg Tab) 10 mg PO DAILY@1200 [facility] Last Admin: 09/21/23 13:35 Dose: 10 mg Naloxone HCl (Naloxone 0.4 Mg/Ml 1 Ml Vial) 0.2 mg IV Q2M PRN PRN Reason: Opioid Reversal Oxycodone/Acetaminophen (Oxycodone-Apap 10-325mg 1 Each Tab) 1 each PO TID [facility] Last Admin: 09/21/23 17:37 Dose: 1 each Pantoprazole Sodium (Pantoprazole 40 Mg Tablet) 40 mg PO DAILY@1200 [facility] Last Admin: 09/21/23 13:34 Dose: 40 mg Ropinirole HCl (Ropinirole Hcl 4 Mg Tablet) 4 mg PO [facility] Last Admin: 09/20/23 22:21 Dose: 4 mg Tamsulosin HCl (Tamsulosin 0.4 Mg Cap.Er.24h) 0.4 mg PO DAILY@1200 [facility] Last Admin: 09/21/23 13:35 Dose: 0.4 mg Tiotropium [place] (Tiotropium 2.5 Mcg Inhaler) 2 puff INHALATION RT-DAILY [facility] Last Admin: 09/21/23 08:57 Dose: 2 puff Past medical history to include: COPD, fibromyalgia, hypertension, osteoarthritis, chronic pancreatitis from alcoholism, peripheral neuropathy, varicose pains, restless leg syndrome, BPH with surgery, Alvarenga's esophagus, chronic low back pain from osteoarthritis, alcohol use disorder with cirrhosis, atrial fibrillation with ablation-went back into atrial fibrillation Social history: lives with his sister Ewelina. Smoked for close to 42 years. Stopped for a few months... Drinking alcohol for years. Stopped February 2022 Physical examination: VITAL SIGNS: 97.9, 106, 16, 125/76, 93% room air GENERAL: Sitting up on the chair. Awake. Scattered scratch de la cruz. With superficial bleeding at places. EYES: Pupils equal. Conjunctiva normal. HEENT: External appearance of nose and ears normal, oral cavity grossly normal. NECK: JVD raised; masses not palpable. HEART: Heart sounds irregular; edema. LUNGS: Respiratory rate increased; decreased breath sounds, ABDOMEN: Soft, , nontender, liver spleen not palpable, no masses palpable. divarification of recti . PSYCH: Alert and oriented x3; mood and affect anxiousl. MUSCULOSKELETAL:No Clubbing/cyanosis;muscles-grossly intact. evidence of OA NEUROLOGICAL: Cranial nerves grossly intact; no facial asymmetry, power and sensation grossly intact. DERMATOLOGICAL: Several scattered areas of scratch de la cruz. Redness right lower extremity mid lower leg down to the ankle. Some breakdown of blisters INVESTIGATIONS, reviewed in the clinical context: September 21: Sodium 135 potassium 4.1 BUN 83 creatinine 2.06 September 20: White count 10.7 hemoglobin 11.4 platelets 342 sodium 133 potassium 4.1 BUN 97 creatinine 3.91 glucose 125 September 19: White count 8.5 hemoglobin 12.5 platelets 346 potassium 3.8 BUN 101 creatinine 5.25 lactic acid 2.1 Troponin I 0.042 proBNP 531 UA: Negative for nitrate leukoesterase. Influenza type A, type B, RSV, COVID-19: Not detected EKG tracing personally reviewed by me-atrial fibrillation with a rate of 116. Chest x-ray film personally reviewed by me-cardiomegaly. Previous labs: August 22, 2023: BUN 29.8. Creatinine 1.2 Assessment and plan: -Acute COPD exacerbation in an ex cigarette smoker: Slow improvement DuoNeb every 6, Pulmicort 1 mg nebulizer twice a day, IV Solu-Medrol -Acute kidney injury suspect prerenal/ATN.: Slow improvement Patient's creatinine was 1.2 in August 22, 2023. Admission creatinine 5.25 Entresto, Aldactone, Lasix held -Paroxysmal atrial flutter fibrillation a prior history of ablation cardioversion after that.: Now back in atrial fibrillation. Eliquis-currently held. Lopressor 12.5 p.o. twice daily for now -chronic congestive heart failure that from systolic and diastolic dysfunction EF 40 % Entresto Aldactone currently held -Right lower extremity cellulitis, with wound [facility]. [facility] Aquacel silver dressing. - chronic pancreatitis from alcoholism: -Alcohol-induced cirrhosis: Diuretics currently held.. -Chronic fibromyalgia Flexeril 10 mg 3 times a day -Metabolic acidosis from renal failure: Slow to respond Sodium bicarbonate drip -Essential hypertension, currently blood pressure on the lower side -Possible scabies. ID consulted -Primary osteoarthritis, multiple joints bilaterally Pain medications as needed -Alcoholic peripheral neuropathy -restless leg syndrome Requip 4 mg daily at bedtime -Alvarenga's esophagus Protonix 40 mg a day -Full code. Cut back Solu-Medrol. Sodium bicarbonate drip. Past Medical History Past Medical History: Atrial Fibrillation, Coronary Artery Disease (CAD), Heart Failure, COPD, Diabetes Mellitus, Eye Disorder, Fibromyalgia, Hypertension, Myocardial Infarction (MA), Musculoskeletal Disorder, Osteoarthritis (OA), Prostate Disorder, Vascular Disorder Additional Past Medical History / Comment(s): Chronic cough, hx pancreatitis, bilateral glaucoma, neuropathy bilateral feet, poor circulation to legs, varicose veins, RLS, hx BPH, colitis, gastritis, Alvarenga's esophagus, hx Shingles in 2013 with joint pain since, chronic low back pain, DDD. wound to right leg, scabies 06/2023 Last Myocardial Infarction Date:: 09/02/16 History of Any Multi-Drug Resistant Organisms: None Reported Past Surgical History: Appendectomy, Cardiac Ablation, Heart Catheterization, Joint Replacement, Orthopedic Surgery, Prostate Surgery Additional Past Surgical History / Comment(s): Right knee arthroscopy, right knee replacement, EGD, colonoscopy, TURP, cardioversion. Past Anesthesia/Blood Transfusion Reactions: No Reported Reaction Additional Past Anesthesia/Blood Transfusion Reaction / Comment(s): No hx blood transfusion. Past Psychological History: Anxiety, Depression Additional Psychological History / Comment(s): Pt resides with his sister Ewelina. Smoking Status: Former smoker Past Alcohol Use History: Occasional Additional Past Alcohol Use History / Comment(s): Started smoking at age 13, quit 10/2016, started smoking again and now quit just recently 09/2023 Past Drug Use History: Cocaine Additional Drug Use History / Comment(s): Hx cocaine use, none in 20-30 years.
[2023-09-21] MEDS: methylPREDNISolone SOD SUCCI 40 MG/ML 1 ML VIAL IV SCH (21:53)
[2023-09-22 07:46] LABS: African American GFR (CKD) 54 (>60 ml/min/1.73 sqM); Anion Gap 11 mmol/L; Blood Urea Nitrogen 76 mg/dL (9-20); Calcium 8.7 mg/dL (8.4-10.2); Carbon Dioxide 16 mmol/L (22-30); Chloride 108 mmol/L (98-107); Glucose 456 mg/dL (74-99); Non-African American GFR(CKD) 46 (>60 ml/min/1.73 sqM); Potassium 4.2 mmol/L (3.5-5.1); Sodium 135 mmol/L (137-145)
[2023-09-22 08:34] LABS: C Reactive Protein 8.5 mg/dL (<1.0)
[2023-09-22 11:04] LABS: Basophils # (A) 0.02 X 10*3/uL (0.00-0.10); Basophils % (A) 0.2 %; Eosinophils # (A) 0 X 10*3/uL (0.04-0.35); Eosinophils % (A) 0 %; HGB 10.6 g/dL (13.0-17.0); Lymphocytes % (A) 6.1 %; MCH 32.4 pg (27.0-32.0); MCHC 33.1 g/dL (32.0-37.0); MCV 97.9 FL (80.0-97.0); Mean Platelet Volume 9.2 FL (9.5-12.2); Monocytes # (A) 0.45 X 10*3/uL (0.20-1.00); Monocytes % (A) 5.5 %; NRBC Per 100 WBC 0 X 10*3/uL (0.00-0.01); Neutrophils # (A) 7.14 X 10*3/uL (1.80-7.70); Neutrophils % (A) 86.5 %; Platelet Count 335 X 10*3/uL (140-440); RBC 3.27 X 10*6/uL (4.40-5.60); RDW 13.2 % (11.5-14.5); WBC 8.25 X 10*3/uL (4.50-10.00)
--- NOTE | 2023-09-22 11:10 | P.PN ---
Subjective Patient is seen for follow-up for acute kidney injury. Renal function is improving. Patient is maintained on IV fluids. Serum creatinine decreased to 1.5 from 5.2 on initial admission. Objective - Vital Signs Vital signs: Vital Signs Temp 98.2 F 09/22/23 02:00 Pulse 82 09/22/23 08:26 Resp 17 09/22/23 08:11 BP 147/88 09/22/23 08:11 Pulse Ox 100 09/22/23 08:11 FiO2 Intake & Output 09/21/23 09/22/23 09/22/23 18:59 06:59 18:59 Output Total 400 400 Balance -400 -400 Output: Urine 400 400 Other: Voiding Method Urinal Urinal Urinal - Exam Patient is awake, comfortable, no acute distress Examination of the lungs shows good air entry bilaterally Examination of lower extremities shows erythema in the right leg. Trace edema noted bilaterally with chronic skin changes. Patient is alert oriented x 3. - Labs CBC & Chem 7: 09/22/23 06:59 09/22/23 06:54 Labs: Abnormal Lab Results - Last 24 Hours (Table) 09/22/23 09/22/23 Range/Units 06:54 06:59 RBC 3.27 L (4.40-5.60) X 10*6/uL Hgb 10.6 L (13.0-17.0) g/dL Hct 32.0 L (39.6-50.0) % MCV 97.9 H (80.0-97.0) FL MCH 32.4 H (27.0-32.0) pg MPV 9.2 L (9.5-12.2) FL Immature Gran # 0.14 H (0.00-0.04) X 10*3/uL Lymphocytes # 0.50 L (0.90-5.00) X 10*3/uL Eosinophils # 0 L (0.04-0.35) X 10*3/uL Sodium 135 L (137-145) mmol/L Chloride 108 H (98-107) mmol/L Carbon Dioxide 16 L (22-30) mmol/L BUN 76 H (9-20) mg/dL Creatinine 1.57 H (0.66-1.25) mg/dL Glucose 456 H (74-99) mg/dL C-Reactive Protein 8.5 H (<1.0) mg/dL Assessment and Plan Assessment: 1. Acute kidney injury, ATN currently nonoliguric. Etiology is hypotension. Renal function is currently improving. UA shows trace protein and small blood with hyaline casts 238. Entresto currently on hold. 2. Scabies 3. Right lower extremity cellulitis 4. Chronic persistent A-fib 5. History of alcohol abuse 6. Nongap metabolic acidosis associated with acute kidney injury Plan: Continue with IV bicarb Continue to hold Entresto for now Repeat labs in a.m.
[2023-09-22 12:47] LABS: Glucose,Whole Blood 514 mg/dL (70-110)
--- NOTE | 2023-09-22 13:18 | P.PN ---
Subjective Progress Note Date: 09/22/23 Principal diagnosis: Reason for follow-up is right lower extremity wound cellulitis rash and a question of scabies Patient is a 63-year-old male with a past medical history significant for coronary artery disease heart failure diabetes mellitus hypertension atrial fibrillation did have a lower extremity cellulitis patient was brought into the hospital for evaluation of cough and difficulty breathing, patient also have multiple skin lesion likely from scratching on the extremities and did have wound to the right lower extremity and concern for possible right leg c ellulitis. On today's evaluation that is 09/22/2023, the patient is afebrile, patient is on room air, the patient denies chest pain still complains of some shortness of breath on exertion and also have a cough but not bring up any sputum patient denies nausea no vomiting no abdominal pain and no diarrhea, denies any worsening pain to the right lower extremity wound area. Patient white count is 8.25, creatinine is 1.57 Objective - Vital Signs Vital signs: Vital Signs Temp 98.2 F 09/22/23 13:15 Pulse 115 H 09/22/23 13:15 Resp 20 09/22/23 13:15 BP 155/72 09/22/23 13:15 Pulse Ox 95 09/22/23 13:15 FiO2 Intake & Output 09/21/23 09/22/23 09/22/23 18:59 06:59 18:59 Output Total 400 400 Balance -400 -400 Output: Urine 400 400 Other: Voiding Method Urinal Urinal Urinal - Exam GENERAL DESCRIPTION: Middle-age male lying in bed in no distress RESPIRATORY SYSTEM: Unlabored breathing , decreased breath sounds at bases HEART: S1 S2 regular rate and rhythm , ABDOMEN: Soft , no tenderness EXTREMITIES: Patient did have a minimal erythema to the right lower leg and some weeping edema right foot wound is currently dressed SKIN: Multiple lesion on bilateral upper lower extremity likely from scratching with no evidence of any cellulitis - Labs CBC & Chem 7: 09/22/23 06:59 09/22/23 06:54 Labs: Abnormal Lab Results - Last 24 Hours (Table) 09/22/23 09/22/23 09/22/23 Range/Units 06:54 06:59 12:41 RBC 3.27 L (4.40-5.60) X 10*6/uL Hgb 10.6 L (13.0-17.0) g/dL Hct 32.0 L (39.6-50.0) % MCV 97.9 H (80.0-97.0) FL MCH 32.4 H (27.0-32.0) pg MPV 9.2 L (9.5-12.2) FL Immature Gran # 0.14 H (0.00-0.04) X 10*3/uL Lymphocytes # 0.50 L (0.90-5.00) X 10*3/uL Eosinophils # 0 L (0.04-0.35) X 10*3/uL Sodium 135 L (137-145) mmol/L Chloride 108 H (98-107) mmol/L Carbon Dioxide 16 L (22-30) mmol/L BUN 76 H (9-20) mg/dL Creatinine 1.57 H (0.66-1.25) mg/dL Glucose 456 H (74-99) mg/dL POC Glucose (mg/dL) 514 H (70-110) mg/dL C-Reactive Protein 8.5 H (<1.0) mg/dL Assessment and Plan (1) Wound of right lower extremity Current Visit: Yes Status: Acute Code(s): S81.801A - UNSPECIFIED OPEN WOUND, RIGHT LOWER LEG, INITIAL ENCOUNTER SNOMED Code(s): 33760377245822534 (2) Rash Current Visit: Yes Status: Acute Code(s): R21 - RASH AND OTHER NONSPECIFIC SKIN ERUPTION SNOMED Code(s): 366674956 (3) Cellulitis of right lower extremity Current Visit: No Status: Acute Code(s): L03.115 - CELLULITIS OF RIGHT LOWER LIMB SNOMED Code(s): 37476786778284411 (4) Penicillin allergy Current Visit: No Status: Acute Code(s): Z88.0 - ALLERGY STATUS TO PENICILLIN SNOMED Code(s): 14468287 Plan: 1patient did have multiple skin lesion on the upper and lower extremity more likely related to the patient scratching them patient denies having any itching associated with it clinically not behaving as scabies 2-patient also have a wound on the dorsal aspect of the right foot with evidence of some slough tissue and superficial ulceration to the right lower leg and surrounding erythema concerning for possible cellulitis 3-penicillin allergy that will limit the number of antibiotics safe to use 4-patient to continue local wound care with Medihoney to the right foot wound followed by moist dressing and Aquacel silver dressing to the right lower leg wound change daily 5-patient is currently covered with Rocephin 2 g daily for possible cellulitis and continue with supportive care Dictation was produced using [employer] dictation software. please excuse any grammatical, word or spelling errors. Time with Patient: Less than 30
[2023-09-22] MEDS: INSULIN ASPART (NovoLOG) 100 UNIT/ML VIAL SQ ONE ×3 (13:33→21:16)
--- NOTE | 2023-09-22 14:52 | P.PN ---
Progress Note - Text Progress Note Date: 09/22/23 Chief Complaint: Not feeling well This is a [address] Chavez. Chronic stable medical conditions include COPD, fibromyalgia, hypertension, osteoarthritis, chronic pancreatitis from alcoholism, peripheral neuropathy varicose veins, restless leg syndrome, B PH surgery, Alvarenga's esophagus and chronic low back pain from osteoarthritis. Alcohol cirrhosis. . cardioversion done for atrial fibrillation in March 2022. Patient presents with not feeling well. Cough. Increasing shortness of breath. No fever no chills. Some lower extremity swelling. Patient found to be back in A-fib in the ER. Patient is rather itching in the body. Some concern about scabies. Denies any fever and chills. Appetite fair. No change in bowel pattern. September 21: Patient has multiple wounds on the upper and lower extremity from scratching. Seen by ID. Does not feel it scabies. Also wound of the right lower extremity. IV ceftriaxone. Breathing better. On bronchodilators. Getting Medihoney for the right foot. And Aquacel silver dressing. Eating close to 100%. Improvement in kidney function. Sodium bicarbonate drip. September 22: Breathing better. Accu-Chek and over 500. Cover with Humalog. Stop Solu-Medrol. As breathing is better. On sodium bicarbonate drip for acidosis. Lower extremity cellulitis bit better. IV ceftriaxone. Local care. Eating well. Increase Lopressor to 25 mg twice daily. Active Medications Albuterol/Ipratropium (Ipratropium-Albuterol 3 Ml Neb) 3 ml INHALATION RT-QID [facility] Last Admin: 09/22/23 11:34 Dose: 3 ml Apixaban (Apixaban 2.5 Mg Tablet) 2.5 mg PO BID [facility]; Protocol Last Admin: 09/22/23 08:36 Dose: 2.5 mg Aripiprazole (Aripiprazole 5 Mg Tab) 5 mg PO DAILY@0600 [facility] Last Admin: 09/22/23 05:47 Dose: 5 mg Atorvastatin Calcium (Atorvastatin 20 Mg Tab) 20 mg PO HS@1800 [facility] Last Admin: 09/21/23 17:37 Dose: 20 mg Budesonide (Budesonide 1 Mg/2 Ml Nebu) 1 mg INHALATION RT-BID [facility] Last Admin: 09/22/23 08:01 Dose: 1 mg Cyclobenzaprine HCl (Cyclobenzaprine 10 Mg Tab) 10 mg PO TID [facility] Last Admin: 09/22/23 08:36 Dose: 10 mg Formoterol Fumarate (Formoterol Fumarate 20 Mcg/2 Ml Nebu) 20 mcg INHALATION RT-BID [facility] Last Admin: 09/22/23 08:01 Dose: 20 mcg Hydromorphone HCl (Hydromorphone 0.5 Mg/0.5 Ml Syringe) 0.5 mg IVP Q4HR PRN PRN Reason: Pain Last Admin: 09/20/23 03:15 Dose: 0.5 mg Ceftriaxone Sodium 2 gm/ (Sodium Chloride) 50 mls @ 100 mls/hr IVPB Q24HR [facility]; Protocol Last Admin: 09/22/23 08:37 Dose: 100 mls/hr Sodium Bicarbonate 150 ml/ (Dextrose/Water) 1,150 mls @ 80 mls/hr IV .[id number] [facility] Last Admin: 09/22/23 02:32 Dose: 80 mls/hr Latanoprost (Latanoprost 0.005% Ophth Drops 2.5 Ml Btl) 1 drops [facility] Last Admin: 09/21/23 21:55 Dose: 1 drops Loratadine (Loratadine 10 Mg Tab) 10 mg PO DAILY@1200 [facility] Last Admin: 09/22/23 12:51 Dose: 10 mg Metoprolol Tartrate (Metoprolol Tartrate 12.5 Mg Tab) 12.5 mg PO BID [facility] Last Admin: 09/22/23 08:35 Dose: 12.5 mg Montelukast Sodium (Montelukast 10 Mg Tab) 10 mg PO DAILY@1200 [facility] Last Admin: 09/22/23 12:51 Dose: 10 mg Naloxone HCl (Naloxone 0.4 Mg/Ml 1 Ml Vial) 0.2 mg IV Q2M PRN PRN Reason: Opioid Reversal Oxycodone/Acetaminophen (Oxycodone-Apap 10-325mg 1 Each Tab) 1 each PO TID [facility] Last Admin: 09/22/23 08:35 Dose: 1 each Pantoprazole Sodium (Pantoprazole 40 Mg Tablet) 40 mg PO DAILY@1200 [facility] Last Admin: 09/22/23 12:52 Dose: 40 mg Ropinirole HCl (Ropinirole Hcl 4 Mg Tablet) 4 mg PO [facility] Last Admin: 09/21/23 21:53 Dose: 4 mg Tamsulosin HCl (Tamsulosin 0.4 Mg Cap.Er.24h) 0.4 mg PO DAILY@1200 [facility] Last Admin: 09/22/23 12:52 Dose: 0.4 mg Tiotropium [place] (Tiotropium 2.5 Mcg Inhaler) 2 puff INHALATION RT-DAILY [facility] Last Admin: 09/22/23 08:15 Dose: Not Given Past medical history to include: COPD, fibromyalgia, hypertension, osteoarthritis, chronic pancreatitis from alcoholism, peripheral neuropathy, varicose pains, restless leg syndrome, BPH with surgery, Alvarenga's esophagus, chronic low back pain from osteoarthritis, alcohol use disorder with cirrhosis, atrial fibrillation with ablation-went back into atrial fibrillation Social history: lives with his sister Ewelina. Smoked for close to 42 years. Stopped for a few months... Drinking alcohol for years. Stopped February 2022 Physical examination: VITAL SIGNS: 98.2, 115, 20, 155 x 72, 95% room air GENERAL: Sitting at the edge of the bed. Scattered scratch de la cruz. With superficial bleeding at places. EYES: Pupils equal. Conjunctiva normal. HEENT: External appearance of nose and ears normal, oral cavity grossly normal. NECK: JVD raised; masses not palpable. HEART: Heart sounds irregular; edema. LUNGS: Respiratory rate increased; improved air entry ABDOMEN: Soft, , nontender, liver spleen not palpable, no masses palpable. divarification of recti . PSYCH: Alert and oriented x3; mood and affect anxiousl. MUSCULOSKELETAL:No Clubbing/cyanosis;muscles-grossly intact. evidence of OA NEUROLOGICAL: Cranial nerves grossly intact; no facial asymmetry, power and sensation grossly intact. DERMATOLOGICAL: Several scattered areas of scratch de la cruz. Redness right lower extremity mid lower leg down to the ankle. Some breakdown of blisters INVESTIGATIONS, reviewed in the clinical context: September 22: Sodium 135 potassium 4.2 BUN 76 creatinine 1.57 bicarb 16 white count 8.2 hemoglobin 10.6 platelets 335 September 21: Sodium 135 potassium 4.1 BUN 83 creatinine 2.06 September 20: White count 10.7 hemoglobin 11.4 platelets 342 sodium 133 potassium 4.1 BUN 97 creatinine 3.91 glucose 125 September 19: White count 8.5 hemoglobin 12.5 platelets 346 potassium 3.8 BUN 101 creatinine 5.25 lactic acid 2.1 Troponin I 0.042 proBNP 531 UA: Negative for nitrate leukoesterase. Influenza type A, type B, RSV, COVID-19: Not detected EKG tracing personally reviewed by me-atrial fibrillation with a rate of 116. Chest x-ray film personally reviewed by me-cardiomegaly. Previous labs: August 22, 2023: BUN 29.8. Creatinine 1.2 Assessment and plan: -Acute COPD exacerbation in an ex cigarette smoker: Better DuoNeb every 6, Pulmicort 1 mg nebulizer twice a day, IV [id number] -Acute kidney injury suspect prerenal/ATN.: Some improvement Patient's creatinine was 1.2 in August 22, 2023. Admission creatinine 5.25 Entresto, Aldactone, Lasix held -Paroxysmal atrial flutter fibrillation a prior history of ablation cardioversion after that.: Now back in atrial fibrillation. Eliquis-resumed increase Lopressor 25 p.o. twice daily -chronic congestive heart failure that from systolic and diastolic dysfunction EF 40 % Entresto Aldactone currently held -Right lower extremity cellulitis, with wound IV ceftriaxone. [facility]. Aquacel silver dressing. ID following - chronic pancreatitis from alcoholism: -Alcohol-induced cirrhosis: Diuretics currently held.. -Chronic fibromyalgia Flexeril 10 mg 3 times a day -Metabolic acidosis from renal failure: Slow to respond Sodium bicarbonate drip -Essential hypertension, Lopressor 25 mg twice daily -Possible scabies. ID-diagnosis unlikely -Severe hyperglycemia secondary steroids Cover with sliding scale. DC Solu-Medrol -Primary osteoarthritis, multiple joints bilaterally Pain medications as needed -Alcoholic peripheral neuropathy -restless leg syndrome Requip 4 mg daily at bedtime -Alvarenga's esophagus Protonix 40 mg a day -Full code. Stop Solu-Medrol.. Increase Lopressor to 50 mg twice daily. Continue IV sodium and bicarbonate drip. Past Medical History Past Medical History: Atrial Fibrillation, Coronary Artery Disease (CAD), Heart Failure, COPD, Diabetes Mellitus, Eye Disorder, Fibromyalgia, Hypertension, Myocardial Infarction (IA), Musculoskeletal Disorder, Osteoarthritis (OA), Prostate Disorder, Vascular Disorder Additional Past Medical History / Comment(s): Chronic cough, hx pancreatitis, bilateral glaucoma, neuropathy bilateral feet, poor circulation to legs, varicose veins, RLS, hx BPH, colitis, gastritis, Alvarenga's esophagus, hx Shingles in 2012 with joint pain since, chronic low back pain, DDD. wound to right leg, scabies 06/2023 Last Myocardial Infarction Date:: 09/02/16 History of Any Multi-Drug Resistant Organisms: None Reported Past Surgical History: Appendectomy, Cardiac Ablation, Heart Catheterization, Joint Replacement, Orthopedic Surgery, Prostate Surgery Additional Past Surgical History / Comment(s): Right knee arthroscopy, right knee replacement, EGD, colonoscopy, TURP, cardioversion. Past Anesthesia/Blood Transfusion Reactions: No Reported Reaction Additional Past Anesthesia/Blood Transfusion Reaction / Comment(s): No hx blood transfusion. Past Psychological History: Anxiety, Depression Additional Psychological History / Comment(s): Pt resides with his sister Ewelina. Smoking Status: Former smoker Past Alcohol Use History: Occasional Additional Past Alcohol Use History / Comment(s): Started smoking at age 13, quit 10/2016, started smoking again and now quit just recently 09/2023 Past Drug Use History: Cocaine Additional Drug Use History / Comment(s): Hx cocaine use, none in 20-30 years.
[2023-09-22] MEDS: METOPROLOL TARTRATE 12.5 MG TAB PO STA (15:30)
[2023-09-22] MEDS: JARDIANCE 10 MG PO SCH (15:46)
[2023-09-22 17:34] LABS: Glucose,Whole Blood 322 mg/dL (70-110)
[2023-09-22 20:09] LABS: Glucose,Whole Blood 450 mg/dL (70-110)
[2023-09-22] MEDS ORDERED: DEXTROSE 50% SYRINGE 50 ML IVP PRN ×2 (20:55)
[2023-09-22] MEDS: METOPROLOL TARTRATE 25 MG TAB PO SCH (21:16)
[2023-09-22] MEDS: INSULIN ASPART (NovoLOG) 100 UNIT/ML VIAL SQ SCH (21:17)
[2023-09-23 07:19] LABS: African American GFR (CKD) 69 (>60 ml/min/1.73 sqM); Anion Gap 7 mmol/L; Blood Urea Nitrogen 66 mg/dL (9-20); Calcium 8.9 mg/dL (8.4-10.2); Carbon Dioxide 25 mmol/L (22-30); Chloride 105 mmol/L (98-107); Glucose 239 mg/dL (74-99); Non-African American GFR(CKD) 59 (>60 ml/min/1.73 sqM); Potassium 4.2 mmol/L (3.5-5.1); Sodium 137 mmol/L (137-145)
[2023-09-23 08:08] LABS: Glucose,Whole Blood 260 mg/dL (70-110)
[2023-09-23] MEDS: guaiFENesin 600 MG TABLET.ER PO SCH (10:37)
[2023-09-23] MEDS ORDERED: DAPAGLIFLOZIN PROPANEDIOL 5 MG TABLET PO SCH (12:00)
--- NOTE | 2023-09-23 12:30 | P.PN ---
Subjective Patient is seen for follow-up for acute kidney injury. Renal function is improving. Patient is maintained on IV fluids. Serum creatinine decreased to 1.2 from 5.2 on initial admission. No complaints Objective - Vital Signs Vital signs: Vital Signs Temp 98.0 F 09/23/23 07:45 Pulse 96 09/23/23 11:40 Resp 19 09/23/23 07:45 BP 136/70 09/23/23 07:45 Pulse Ox 98 09/23/23 07:45 FiO2 Intake & Output 09/22/23 09/23/23 09/23/23 18:59 06:59 18:59 Intake Total 540 300 Output Total 1100 600 650 Balance -560 -300 -650 Intake: Oral 540 300 Output: Urine 1100 600 650 Other: Voiding Method Urinal Urinal Urinal - Exam Patient is awake, comfortable, no acute distress Examination of lower extremities shows erythema in the right leg. 1+ edema noted bilaterally with chronic skin changes. Patient is alert oriented x 3. - Labs CBC & Chem 7: 09/22/23 06:59 09/23/23 06:45 Labs: Abnormal Lab Results - Last 24 Hours (Table) 09/22/23 09/22/23 09/22/23 Range/Units 12:41 17:26 20:04 BUN (9-20) mg/dL Creatinine (0.66-1.25) mg/dL Glucose (74-99) mg/dL POC Glucose (mg/dL) 514 H 322 H 450 H (70-110) mg/dL 09/23/23 09/23/23 Range/Units 06:45 08:06 BUN 66 H (9-20) mg/dL Creatinine 1.28 H (0.66-1.25) mg/dL Glucose 239 H (74-99) mg/dL POC Glucose (mg/dL) 260 H (70-110) mg/dL Assessment and Plan Assessment: 1. Acute kidney injury, ATN currently nonoliguric. Etiology is hypotension. Renal function is currently improving. UA shows trace protein and small blood with hyaline casts 238. Entresto currently on hold. 2. Skin rash from scratching. Low suspicion for scabies. Patient is being followed by ID 3. Right lower extremity cellulitis 4. Chronic persistent A-fib 5. History of alcohol abuse 6. Nongap metabolic acidosis associated with acute kidney injury Plan: DC IV fluids Lasix IV 1 Can resume and entresto Repeat labs in a.m.
[2023-09-23 12:31] LABS: Glucose,Whole Blood 326 mg/dL (70-110)
[2023-09-23] MEDS: FUROSEMIDE 10 MG/ML 4 ML VIAL IV STA (12:45)
--- NOTE | 2023-09-23 13:13 | P.PN ---
Subjective Progress Note Date: 09/23/23 Principal diagnosis: Reason for follow-up is right lower extremity wound cellulitis rash and a question of scabies Patient is a 63-year-old male with a past medical history significant for coronary artery disease heart failure diabetes mellitus hypertension atrial fibrillation did have a lower extremity cellulitis patient was brought into the hospital for evaluation of cough and difficulty breathing, patient also have multiple skin lesion likely from scratching on the extremities and did have wound to the right lower extremity and concern for possible right leg c ellulitis. On today's evaluation that is 09/23/2023, the patient denies any fever or any chills, patient is on room air however is complaining of shortness of breath he also have a cough not bring up any significant sputum no nausea vomiting no abdominal pain or any worsening pain to the right leg. Patient did have a creatinine 1.28 white count was 8.25 as of yesterday no cultures Objective - Vital Signs Vital signs: Vital Signs Temp 98.0 F 09/23/23 07:45 Pulse 96 09/23/23 11:40 Resp 19 09/23/23 07:45 BP 136/70 09/23/23 07:45 Pulse Ox 98 09/23/23 07:45 FiO2 Intake & Output 09/22/23 09/23/23 09/23/23 18:59 06:59 18:59 Intake Total 540 300 Output Total 1100 600 650 Balance -560 -300 -650 Intake: Oral 540 300 Output: Urine 1100 600 650 Other: Voiding Method Urinal Urinal Urinal - Exam GENERAL DESCRIPTION: Middle-age male lying in bed in no distress RESPIRATORY SYSTEM: Unlabored breathing , decreased breath sounds at bases HEART: S1 S2 regular rate and rhythm , ABDOMEN: Soft , no tenderness EXTREMITIES: Patient did have a minimal erythema to the right lower leg and some weeping edema right foot wound is currently dressed SKIN: Multiple lesion on bilateral upper lower extremity likely from scratching with no evidence of any cellulitis - Labs CBC & Chem 7: 09/22/23 06:59 09/23/23 06:45 Labs: Abnormal Lab Results - Last 24 Hours (Table) 09/22/23 09/22/23 09/23/23 Range/Units 17:26 20:04 06:45 BUN 66 H (9-20) mg/dL Creatinine 1.28 H (0.66-1.25) mg/dL Glucose 239 H (74-99) mg/dL POC Glucose (mg/dL) 322 H 450 H (70-110) mg/dL 09/23/23 09/23/23 Range/Units 08:06 12:29 BUN (9-20) mg/dL Creatinine (0.66-1.25) mg/dL Glucose (74-99) mg/dL POC Glucose (mg/dL) 260 H 326 H (70-110) mg/dL Assessment and Plan (1) Wound of right lower extremity Current Visit: Yes Status: Acute Code(s): S81.801A - UNSPECIFIED OPEN WOUND, RIGHT LOWER LEG, INITIAL ENCOUNTER SNOMED Code(s): 29122914424120582 (2) Rash Current Visit: Yes Status: Acute Code(s): R21 - RASH AND OTHER NONSPECIFIC SKIN ERUPTION SNOMED Code(s): 588104027 (3) Cellulitis of right lower extremity Current Visit: No Status: Acute Code(s): L03.115 - CELLULITIS OF RIGHT LOWER LIMB SNOMED Code(s): 44449108651928741 (4) Penicillin allergy Current Visit: No Status: Acute Code(s): Z88.0 - ALLERGY STATUS TO PENICILLIN SNOMED Code(s): 92339823 Plan: 1patient did have multiple skin lesion on the upper and lower extremity more likely related to the patient scratching them patient denies having any itching associated with it clinically not behaving as scabies 2-patient also have a wound on the dorsal aspect of the right foot with evidence of some slough tissue and superficial ulceration to the right lower leg and surrounding erythema concerning for possible cellulitis 3-penicillin allergy that will limit the number of antibiotics safe to use 4-patient to continue local wound care with Medihoney to the right foot wound followed by moist dressing and we will apply Mycolog cream to the erythematous area of the right lower leg and foot area 5-patient is currently covered with Rocephin 2 g daily for possible cellulitis and continue with supportive care Dictation was produced using [employer] software. please excuse any grammatical, word or spelling errors.
[2023-09-23] MEDS: TRIAMCINOLONE 0.1% CREAM 80 GM TUBE TOPICAL SCH (13:59)
[2023-09-23] MEDS: NYSTATIN 100,000UNIT/GM CREAM 30 GM TUBE TOPICAL SCH (13:59)
[2023-09-23] MEDS ORDERED: bisacodyL 10 MG SUPP RECTAL PRN (17:50)
[2023-09-23 17:53] LABS: Glucose,Whole Blood 185 mg/dL (70-110)
[2023-09-23] MEDS: LACTULOSE 20 GM/30 ML CUP PO ONE (18:05)
--- NOTE | 2023-09-23 18:41 | P.PN ---
Progress Note - Text Progress Note Date: 09/23/23 Chief Complaint: Not feeling well This is a [address] hCavez. Chronic stable medical conditions include COPD, fibromyalgia, hypertension, osteoarthritis, chronic pancreatitis from alcoholism, peripheral neuropathy varicose veins, restless leg syndrome, B PH surgery, Alvarenga's esophagus and chronic low back pain from osteoarthritis. Alcohol cirrhosis. . cardioversion done for atrial fibrillation in March 2022. Patient presents with not feeling well. Cough. Increasing shortness of breath. No fever no chills. Some lower extremity swelling. Patient found to be back in A-fib in the ER. Patient is rather itching in the body. Some concern about scabies. Denies any fever and chills. Appetite fair. No change in bowel pattern. September 21: Patient has multiple wounds on the upper and lower extremity from scratching. Seen by ID. Does not feel it scabies. Also wound of the right lower extremity. IV ceftriaxone. Breathing better. On bronchodilators. Getting Medihoney for the right foot. And Aquacel silver dressing. Eating close to 100%. Improvement in kidney function. Sodium bicarbonate drip. September 22: Breathing better. Accu-Chek and over 500. Cover with Humalog. Stop Solu-Medrol. As breathing is better. On sodium bicarbonate drip for acidosis. Lower extremity cellulitis bit better. IV ceftriaxone. Local care. Eating well. Increase Lopressor to 25 mg twice daily. September 23: Accu-Cheks better after steroids were discontinued. Breathing comfortable. Slow improvement in lower extremity cellulitis. Sodium bicarb drip discontinued. IV ceftriaxone. Topical care right foot superficial wound cellulitis. Active Medications Albuterol/Ipratropium (Ipratropium-Albuterol 3 Ml Neb) 3 ml INHALATION RT-QID [facility] Last Admin: 09/23/23 15:43 Dose: 3 ml Apixaban (Apixaban 2.5 Mg Tablet) 2.5 mg PO BID [facility]; Protocol Last Admin: 09/23/23 09:58 Dose: 2.5 mg Aripiprazole (Aripiprazole 5 Mg Tab) 5 mg PO DAILY@0600 [facility] Last Admin: 09/23/23 05:56 Dose: 5 mg Atorvastatin Calcium (Atorvastatin 20 Mg Tab) 20 mg PO HS@1800 [facility] Last Admin: 09/23/23 17:37 Dose: 20 mg Bisacodyl (Bisacodyl 10 Mg Supp) 10 mg RECTAL ONCE PRN PRN Reason: Constipation Budesonide (Budesonide 1 Mg/2 Ml Nebu) 1 mg INHALATION RT-BID [facility] Last Admin: 09/23/23 08:36 Dose: Not Given Cyclobenzaprine HCl (Cyclobenzaprine 10 Mg Tab) 10 mg PO TID [facility] Last Admin: 09/23/23 17:37 Dose: 10 mg Dextrose/Water (Dextrose 50% Syringe 50 Ml) 25 ml IVP PER PROTOCOL PRN; Protocol PRN Reason: Hypoglycemia Dextrose/Water (Dextrose 50% Syringe 50 Ml) 50 ml IVP PER PROTOCOL PRN; Protocol PRN Reason: Hypoglycemia Formoterol Fumarate (Formoterol Fumarate 20 Mcg/2 Ml Nebu) 20 mcg INHALATION RT-BID [facility] Last Admin: 09/23/23 08:36 Dose: Not Given Guaifenesin (Guaifenesin 600 Mg Tablet.Er) 600 mg PO QID [facility] Last Admin: 09/23/23 17:37 Dose: 600 mg Hydromorphone HCl (Hydromorphone 0.5 Mg/0.5 Ml Syringe) 0.5 mg IVP Q4HR PRN PRN Reason: Pain Last Admin: 09/23/23 01:19 Dose: 0.5 mg Ceftriaxone Sodium 2 gm/ (Sodium Chloride) 50 mls @ 100 mls/hr IVPB Q24HR [facility]; Protocol Last Admin: 09/23/23 09:58 Dose: 100 mls/hr Insulin Aspart (Insulin Aspart (Novolog) 100 Unit/Ml Vial) 0 unit SQ ACHS [facility]; Protocol Last Admin: 09/23/23 18:05 Dose: 2 unit Latanoprost (Latanoprost 0.005% Ophth Drops 2.5 Ml Btl) 1 drops BOTH EYES HS [facility] Last Admin: 09/22/23 21:17 Dose: 1 drops Loratadine (Loratadine 10 Mg Tab) 10 mg PO DAILY@1200 [facility] Last Admin: 09/23/23 12:45 Dose: 10 mg Metoprolol Tartrate (Metoprolol Tartrate 25 Mg Tab) 25 mg PO BID [facility] Last Admin: 09/23/23 09:59 Dose: 25 mg Montelukast Sodium (Montelukast 10 Mg Tab) 10 mg PO DAILY@1200 [facility] Last Admin: 09/23/23 12:45 Dose: 10 mg Naloxone HCl (Naloxone 0.4 Mg/Ml 1 Ml Vial) 0.2 mg IV Q2M PRN PRN Reason: Opioid Reversal Patient's Own-- (Jardiance 10mg Tab) 10 each PO DAILY@1200 [facility] Last Admin: 09/23/23 12:45 Dose: 10 each Nystatin (Nystatin 100,000unit/Gm Cream 30 Gm Tube) 1 applic TOPICAL BID [facility]; Protocol Last Admin: 09/23/23 13:59 Dose: 1 applic Oxycodone/Acetaminophen (Oxycodone-Apap 10-325mg 1 Each Tab) 1 each PO TID [facility] Last Admin: 09/23/23 17:37 Dose: 1 each Pantoprazole Sodium (Pantoprazole 40 Mg Tablet) 40 mg PO DAILY@1200 [facility] Last Admin: 09/23/23 12:45 Dose: 40 mg Ropinirole HCl (Ropinirole Hcl 4 Mg Tablet) 4 mg PO HS [facility] Last Admin: 09/22/23 21:16 Dose: 4 mg Tamsulosin HCl (Tamsulosin 0.4 Mg Cap.Er.24h) 0.4 mg PO DAILY@1200 [facility] Last Admin: 09/23/23 12:45 Dose: 0.4 mg Tiotropium Hay (Tiotropium 2.5 Mcg Inhaler) 2 puff INHALATION RT-DAILY [facility] Last Admin: 09/23/23 09:03 Dose: 2 puff Triamcinolone Acetonide (Triamcinolone 0.1% Cream 80 Gm Tube) 1 applic TOPICAL BID [facility]; Protocol Last Admin: 09/23/23 13:59 Dose: 1 applic Past medical history to include: COPD, fibromyalgia, hypertension, osteoarthritis, chronic pancreatitis from alcoholism, peripheral neuropathy, varicose pains, restless leg syndrome, BPH with surgery, Alvarenga's esophagus, chronic low back pain from osteoarthritis, alcohol use disorder with cirrhosis, atrial fibrillation with ablation-went back into atrial fibrillation Social history: lives with his sister Ewelina. Smoked for close to 42 years. Stopped for a few months... Drinking alcohol for years. Stopped February 2022 Physical examination: VITAL SIGNS: 98.1, 87, 21, 125/68, 98% on 2 L GENERAL: Sitting at the edge of the bed. Scattered scratch de la cruz. With superficial bleeding at places. EYES: Pupils equal. Conjunctiva normal. HEENT: External appearance of nose and ears normal, oral cavity grossly normal. NECK: JVD raised; masses not palpable. HEART: Heart sounds irregular; edema. LUNGS: Respiratory rate increased; improved air entry ABDOMEN: Soft, , nontender, liver spleen not palpable, no masses palpable. divarification of recti . PSYCH: Alert and oriented x3; mood and affect anxiousl. MUSCULOSKELETAL:No Clubbing/cyanosis;muscles-grossly intact. evidence of OA NEUROLOGICAL: Cranial nerves grossly intact; no facial asymmetry, power and sensation grossly intact. DERMATOLOGICAL: Several scattered areas of scratch de la cruz. Redness right lower extremity mid lower leg down to the ankle. Some breakdown of blisters: Some improvement INVESTIGATIONS, reviewed in the clinical context: September 23: Sodium 137 potassium 4.2 BUN 66 creatinine 1.28 September 19: White count 8.5 hemoglobin 12.5 platelets 346 potassium 3.8 BUN 101 creatinine 5.25 lactic acid 2.1 Troponin I 0.042 proBNP 531 UA: Negative for nitrate leukoesterase. Influenza type A, type B, RSV, COVID-19: Not detected EKG tracing personally reviewed by me-atrial fibrillation with a rate of 116. Chest x-ray film personally reviewed by me-cardiomegaly. Previous labs: August 22, 2023: BUN 29.8. Creatinine 1.2 Assessment and plan: -Acute COPD exacerbation in an ex cigarette smoker: Better DuoNeb every 6, Pulmicort 1 mg nebulizer twice a day, IV [id number] -Acute kidney injury suspect prerenal/ATN.: improvement Patient's creatinine was 1.2 in August 22, 2023. Admission creatinine 5.25 Entresto, Aldactone, Lasix held -Paroxysmal atrial flutter fibrillation a prior history of ablation cardioversion after that.: Now back in atrial fibrillation. Eliquis-resumed. Lopressor 25 p.o. twice daily -chronic congestive heart failure that from systolic and diastolic dysfunction EF 40 % Entresto. Aldactone currently held -Right lower extremity/foot dorsum cellulitis, with wound IV ceftriaxone. Medihoney. Aquacel silver dressing. ID following - chronic pancreatitis from alcoholism: -Alcohol-induced cirrhosis: Resume Aldactone tomorrow -Chronic fibromyalgia Flexeril 10 mg 3 times a day -Metabolic acidosis from renal failure: Better Sodium bicarbonate drip-discontinued -Essential hypertension, Lopressor 25 mg twice daily -Scabies ruled out per ID -Severe hyperglycemia secondary steroids: Improved Cover with sliding scale. DC Solu-Medrol -Primary osteoarthritis, multiple joints bilaterally Pain medications as needed -Alcoholic peripheral neuropathy -restless leg syndrome Requip 4 mg daily at bedtime -Alvarenga's esophagus Protonix 40 mg a day -Full code. Add Aldactone from tomorrow. Past Medical History Past Medical History: Atrial Fibrillation, Coronary Artery Disease (CAD), Heart Failure, COPD, Diabetes Mellitus, Eye Disorder, Fibromyalgia, Hypertension, Myocardial Infarction (MS), Musculoskeletal Disorder, Osteoarthritis (OA), Prostate Disorder, Vascular Disorder Additional Past Medical History / Comment(s): Chronic cough, hx pancreatitis, bilateral glaucoma, neuropathy bilateral feet, poor circulation to legs, varicose veins, RLS, hx BPH, colitis, gastritis, Alvarenga's esophagus, hx Shingles in 2012 with joint pain since, chronic low back pain, DDD. wound to right leg, scabies 06/2023 Last Myocardial Infarction Date:: 09/02/16 History of Any Multi-Drug Resistant Organisms: None Reported Past Surgical History: Appendectomy, Cardiac Ablation, Heart Catheterization, Joint Replacement, Orthopedic Surgery, Prostate Surgery Additional Past Surgical History / Comment(s): Right knee arthroscopy, right knee replacement, EGD, colonoscopy, TURP, cardioversion. Past Anesthesia/Blood Transfusion Reactions: No Reported Reaction Additional Past Anesthesia/Blood Transfusion Reaction / Comment(s): No hx blood transfusion. Past Psychological History: Anxiety, Depression Additional Psychological History / Comment(s): Pt resides with his sister Ewelina. Smoking Status: Former smoker Past Alcohol Use History: Occasional Additional Past Alcohol Use History / Comment(s): Started smoking at age 13, quit 10/2016, started smoking again and now quit just recently 09/2023 Past Drug Use History: Cocaine Additional Drug Use History / Comment(s): Hx cocaine use, none in 20-30 years.
[2023-09-23 20:08] LABS: Glucose,Whole Blood 194 mg/dL (70-110)
[2023-09-24 07:39] LABS: African American GFR (CKD) >90 (>60 ml/min/1.73 sqM); Anion Gap 6 mmol/L; Blood Urea Nitrogen 50 mg/dL (9-20); Calcium 9.1 mg/dL (8.4-10.2); Carbon Dioxide 30 mmol/L (22-30); Chloride 104 mmol/L (98-107); Glucose 173 mg/dL (74-99); Non-African American GFR(CKD) 78 (>60 ml/min/1.73 sqM); Potassium 4.1 mmol/L (3.5-5.1); Sodium 140 mmol/L (137-145)
[2023-09-24 07:45] LABS: Glucose,Whole Blood 176 mg/dL (70-110)
[2023-09-24] MEDS: SPIRONOLACTONE 25 MG TAB PO SCH (08:10)
[2023-09-24 11:54] LABS: Glucose,Whole Blood 155 mg/dL (70-110)
--- NOTE | 2023-09-24 11:58 | P.PN ---
Subjective Patient is seen for follow-up for acute kidney injury. Renal function has improved with creatinine down to 1.0 from 5.25 on initial admission. Patient is status post IV fluids. Received a dose of IV Lasix yesterday. No complaints Objective - Vital Signs Vital signs: Vital Signs Temp 98.6 F 09/24/23 07:51 Pulse 92 09/24/23 09:31 Resp 19 09/24/23 07:51 BP 163/76 09/24/23 07:51 Pulse Ox 100 09/24/23 07:51 FiO2 Intake & Output 09/23/23 09/24/23 09/24/23 18:59 06:59 18:59 Intake Total 240 Output Total 1725 800 Balance -1725 -800 240 Intake: Oral 240 Output: Urine 1725 800 Other: Voiding Method Urinal Urinal Urinal - Exam Patient is awake, comfortable, no acute distress Examination of the heart S1 and S2 Examination of the lungs bilateral breath sounds are heard Examination of lower extremities shows erythema in the right leg. 1+ edema noted bilaterally with chronic skin changes. Patient is alert oriented x 3. - Labs CBC & Chem 7: 09/22/23 06:59 09/24/23 06:27 Labs: Abnormal Lab Results - Last 24 Hours (Table) 09/23/23 09/23/23 09/23/23 Range/Units 12:29 17:52 19:58 BUN (9-20) mg/dL Glucose (74-99) mg/dL POC Glucose (mg/dL) 326 H 185 H 194 H (70-110) mg/dL 09/24/23 09/24/23 09/24/23 Range/Units 06:27 07:40 11:52 BUN 50 H (9-20) mg/dL Glucose 173 H (74-99) mg/dL POC Glucose (mg/dL) 176 H 155 H (70-110) mg/dL Assessment and Plan Assessment: 1. Acute kidney injury, ATN currently nonoliguric. Etiology is hypotension. Renal function is currently improving. UA shows trace protein and small blood with hyaline casts 238. Entresto currently on hold. 2. Skin rash from scratching. Low suspicion for scabies. Patient is being followed by ID 3. Right lower extremity cellulitis 4. Chronic persistent A-fib 5. History of alcohol abuse 6. Nongap metabolic acidosis associated with acute kidney injury 7. volume overload Plan: Continue off of IV fluids Repeat IV Lasix Okay to resume entresto
[2023-09-24] MEDS: FUROSEMIDE 10 MG/ML 4 ML VIAL IV STA (12:18)
[2023-09-24 12:20] LABS: Glucose,Whole Blood 175 mg/dL (70-110)
--- NOTE | 2023-09-24 13:16 | P.PN ---
Subjective Progress Note Date: 09/24/23 Principal diagnosis: Reason for follow-up is right lower extremity wound cellulitis rash and a question of scabies Patient is a 63-year-old male with a past medical history significant for coronary artery disease heart failure diabetes mellitus hypertension atrial fibrillation did have a lower extremity cellulitis patient was brought into the hospital for evaluation of cough and difficulty breathing, patient also have multiple skin lesion likely from scratching on the extremities and did have wound to the right lower extremity and concern for possible right leg c ellulitis. On today's evaluation that is 09/24/2023,the patient remains to be afebrile, patient is on room air not requiring supplemental oxygen, patient complaining of some shortness of breath but no chest pain or cough.Patient denies having any nausea or vomiting, no abdominal pain and no diarrhea has been reported, denies pain to the right lower extremity Patient did have a creatinine 1.02 no CBC was done today Objective - Vital Signs Vital signs: Vital Signs Temp 98.7 F 09/24/23 12:55 Pulse 98 09/24/23 12:55 Resp 19 09/24/23 12:55 BP 122/68 09/24/23 12:55 Pulse Ox 94 L 09/24/23 12:55 FiO2 Intake & Output 09/23/23 09/24/23 09/24/23 18:59 06:59 18:59 Intake Total 780 Output Total 1725 800 800 Balance -1725 -800 -20 Intake: Oral 780 Output: Urine 1725 800 800 Other: Voiding Method Urinal Urinal Urinal - Exam GENERAL DESCRIPTION: Middle-age male lying in bed in no distress RESPIRATORY SYSTEM: Unlabored breathing , decreased breath sounds at bases HEART: S1 S2 regular rate and rhythm , ABDOMEN: Soft , no tenderness EXTREMITIES: Patient did have a minimal erythema to the right lower leg and some weeping edema right foot wound is currently dressed SKIN: Multiple lesion on bilateral upper lower extremity likely from scratching with no evidence of any cellulitis - Labs CBC & Chem 7: 09/22/23 06:59 09/24/23 06:27 Labs: Abnormal Lab Results - Last 24 Hours (Table) 09/23/23 09/23/23 09/24/23 Range/Units 17:52 19:58 06:27 BUN 50 H (9-20) mg/dL Glucose 173 H (74-99) mg/dL POC Glucose (mg/dL) 185 H 194 H (70-110) mg/dL 09/24/23 09/24/23 09/24/23 Range/Units 07:40 11:52 12:02 BUN (9-20) mg/dL Glucose (74-99) mg/dL POC Glucose (mg/dL) 176 H 155 H 175 H (70-110) mg/dL Assessment and Plan (1) Wound of right lower extremity Current Visit: Yes Status: Acute Code(s): S81.801A - UNSPECIFIED OPEN WOUND, RIGHT LOWER LEG, INITIAL ENCOUNTER SNOMED Code(s): 22194278942910753 (2) Rash Current Visit: Yes Status: Acute Code(s): R21 - RASH AND OTHER NONSPECIFIC SKIN ERUPTION SNOMED Code(s): 597237710 (3) Cellulitis of right lower extremity Current Visit: No Status: Acute Code(s): L03.115 - CELLULITIS OF RIGHT LOWER LIMB SNOMED Code(s): 60095709010824087 (4) Penicillin allergy Current Visit: No Status: Acute Code(s): Z88.0 - ALLERGY STATUS TO PENICILLIN SNOMED Code(s): 57675967 Plan: 1patient did have multiple skin lesion on the upper and lower extremity more likely related to the patient scratching them patient denies having any itching associated with it clinically not behaving as scabies 2-patient also have a wound on the dorsal aspect of the right foot with evidence of some slough tissue and superficial ulceration to the right lower leg and surrounding erythema concerning for possible cellulitis 3-penicillin allergy that will limit the number of antibiotics safe to use 4-patient to continue local wound care with Medihoney to the right foot wound followed by moist dressing and Mycolog cream to the erythematous area of the right lower leg and foot area 5-patient to continue with Rocephin 2 g daily and will transition to oral antibiotics on discharge Dictation was produced using [employer] dictation software. please excuse any grammatical, word or spelling errors. Time with Patient: Less than 30
[2023-09-24] MEDS: FUROSEMIDE 40 MG TAB PO SCH (16:41)
--- NOTE | 2023-09-24 16:41 | P.PN ---
Progress Note - Text Progress Note Date: 09/24/23 Chief Complaint: Not feeling well This is a [address] Chavez. Chronic stable medical conditions include COPD, fibromyalgia, hypertension, osteoarthritis, chronic pancreatitis from alcoholism, peripheral neuropathy varicose veins, restless leg syndrome, B PH surgery, Alvarenga's esophagus and chronic low back pain from osteoarthritis. Alcohol cirrhosis. . cardioversion done for atrial fibrillation in March 2022. Patient presents with not feeling well. Cough. Increasing shortness of breath. No fever no chills. Some lower extremity swelling. Patient found to be back in A-fib in the ER. Patient is rather itching in the body. Some concern about scabies. Denies any fever and chills. Appetite fair. No change in bowel pattern. September 21: Patient has multiple wounds on the upper and lower extremity from scratching. Seen by ID. Does not feel it scabies. Also wound of the right lower extremity. IV ceftriaxone. Breathing better. On bronchodilators. Getting Medihoney for the right foot. And Aquacel silver dressing. Eating close to 100%. Improvement in kidney function. Sodium bicarbonate drip. September 22: Breathing better. Accu-Chek and over 500. Cover with Humalog. Stop Solu-Medrol. As breathing is better. On sodium bicarbonate drip for acidosis. Lower extremity cellulitis bit better. IV ceftriaxone. Local care. Eating well. Increase Lopressor to 25 mg twice daily. September 23: Accu-Cheks better after steroids were discontinued. Breathing comfortable. Slow improvement in lower extremity cellulitis. Sodium bicarb drip discontinued. IV ceftriaxone. Topical care right foot superficial wound cellulitis. September 24: Breathing stable. On IV ceftriaxone. Wound care continues. Eating well. Patient resumed home Lasix 40 mg twice daily. Resume Entresto from [facility]. Active Medications Albuterol/Ipratropium (Ipratropium-Albuterol 3 Ml Neb) 3 ml INHALATION RT-QID [facility] Last Admin: 09/24/23 16:36 Dose: Not Given Apixaban (Apixaban 2.5 Mg Tablet) 2.5 mg PO BID [facility]; Protocol Last Admin: 09/24/23 08:10 Dose: 2.5 mg Aripiprazole (Aripiprazole 5 Mg Tab) 5 mg PO DAILY@0600 [facility] Last Admin: 09/24/23 06:01 Dose: 5 mg Atorvastatin Calcium (Atorvastatin 20 Mg Tab) 20 mg PO HS@1800 [facility] Last Admin: 09/23/23 17:37 Dose: 20 mg Bisacodyl (Bisacodyl 10 Mg Supp) 10 mg RECTAL ONCE PRN PRN Reason: Constipation Budesonide (Budesonide 1 Mg/2 Ml Nebu) 1 mg INHALATION RT-BID [facility] Last Admin: 09/24/23 09:14 Dose: 1 mg Cyclobenzaprine HCl (Cyclobenzaprine 10 Mg Tab) 10 mg PO TID [facility] Last Admin: 09/24/23 08:11 Dose: 10 mg Dextrose/Water (Dextrose 50% Syringe 50 Ml) 25 ml IVP PER PROTOCOL PRN; Protocol PRN Reason: Hypoglycemia Dextrose/Water (Dextrose 50% Syringe 50 Ml) 50 ml IVP PER PROTOCOL PRN; Protocol PRN Reason: Hypoglycemia Formoterol Fumarate (Formoterol Fumarate 20 Mcg/2 Ml Nebu) 20 mcg INHALATION RT-BID [facility] Last Admin: 09/24/23 09:14 Dose: Not Given Furosemide (Furosemide 40 Mg Tab) 40 mg PO BID@0900,1600 [facility] Guaifenesin (Guaifenesin 600 Mg Tablet.Er) 600 mg PO QID [facility] Last Admin: 09/24/23 12:18 Dose: 600 mg Hydromorphone HCl (Hydromorphone 0.5 Mg/0.5 Ml Syringe) 0.5 mg IVP Q4HR PRN PRN Reason: Pain Last Admin: 09/24/23 02:08 Dose: 0.5 mg Ceftriaxone Sodium 2 gm/ (Sodium Chloride) 50 mls @ 100 mls/hr IVPB Q24HR [facility]; Protocol Last Admin: 09/24/23 08:11 Dose: 100 mls/hr Insulin Aspart (Insulin Aspart (Novolog) 100 Unit/Ml Vial) 0 unit SQ [facility]; Protocol Last Admin: 09/24/23 12:18 Dose: 2 unit Latanoprost (Latanoprost 0.005% Ophth Drops 2.5 Ml Btl) 1 drops [facility] Last Admin: 09/23/23 21:07 Dose: 1 drops Loratadine (Loratadine 10 Mg Tab) 10 mg PO DAILY@1200 [facility] Last Admin: 09/24/23 12:18 Dose: 10 mg Metoprolol Tartrate (Metoprolol Tartrate 25 Mg Tab) 25 mg PO BID [facility] Last Admin: 09/24/23 08:11 Dose: 25 mg Montelukast Sodium (Montelukast 10 Mg Tab) 10 mg PO DAILY@1200 [facility] Last Admin: 09/24/23 12:18 Dose: 10 mg Naloxone HCl (Naloxone 0.4 Mg/Ml 1 Ml Vial) 0.2 mg IV Q2M PRN PRN Reason: Opioid Reversal Patient's Own-- (Jardiance 10mg Tab) 10 each PO DAILY@1200 [facility] Last Admin: 09/24/23 12:18 Dose: 10 each Nystatin (Nystatin 100,000unit/Gm Cream 30 Gm Tube) 1 applic TOPICAL BID [facility]; Protocol Last Admin: 09/24/23 08:12 Dose: 1 applic Oxycodone/Acetaminophen (Oxycodone-Apap 10-325mg 1 Each Tab) 1 each PO TID [facility] Last Admin: 09/24/23 08:10 Dose: 1 each Pantoprazole Sodium (Pantoprazole 40 Mg Tablet) 40 mg PO DAILY@1200 [facility] Last Admin: 09/24/23 12:18 Dose: 40 mg Ropinirole HCl (Ropinirole Hcl 4 Mg Tablet) 4 mg PO HS [facility] Last Admin: 09/23/23 21:04 Dose: 4 mg Spironolactone (Spironolactone 25 Mg Tab) 25 mg PO DAILY [facility] Last Admin: 09/24/23 08:10 Dose: 25 mg Tamsulosin HCl (Tamsulosin 0.4 Mg Cap.Er.24h) 0.4 mg PO DAILY@1200 [facility] Last Admin: 09/24/23 12:18 Dose: 0.4 mg Tiotropium [place] (Tiotropium 2.5 Mcg Inhaler) 2 puff INHALATION RT-DAILY [facility] Last Admin: 09/24/23 09:14 Dose: 2 puff Triamcinolone Acetonide (Triamcinolone 0.1% Cream 80 Gm Tube) 1 applic TOPICAL BID [facility]; Protocol Last Admin: 09/24/23 08:12 Dose: 1 applic Past medical history to include: COPD, fibromyalgia, hypertension, osteoarthritis, chronic pancreatitis from alcoholism, peripheral neuropathy, varicose pains, restless leg syndrome, BPH with surgery, Alvarenga's esophagus, chronic low back pain from osteoarthritis, alcohol use disorder with cirrhosis, atrial fibrillation with ablation-went back into atrial fibrillation Social history: lives with his sister Ewelina. Smoked for close to 42 years. Stopped for a few months... Drinking alcohol for years. Stopped February 2022 Physical examination: VITAL SIGNS: 98.7, 98, 19, 122 x 68, 94% room air GENERAL: Sitting at the edge of the bed. Scattered scratch de la cruz. With superficial bleeding at places. EYES: Pupils equal. Conjunctiva normal. HEENT: External appearance of nose and ears normal, oral cavity grossly normal. NECK: JVD raised; masses not palpable. HEART: Heart sounds irregular; edema. LUNGS: Respiratory rate normal; improved air entry ABDOMEN: Soft, , nontender, liver spleen not palpable, no masses palpable. divarification of recti . PSYCH: Alert and oriented x3; mood and affect anxiousl. MUSCULOSKELETAL:No Clubbing/cyanosis;muscles-grossly intact. evidence of OA NEUROLOGICAL: Cranial nerves grossly intact; no facial asymmetry, power and sensation grossly intact. DERMATOLOGICAL: Several scattered areas of scratch de la cruz. Redness right lower extremity mid lower leg down to the ankle. Some breakdown of blisters: Some improvement INVESTIGATIONS, reviewed in the clinical context: September 24: Potassium 4.1 creatinine 1.02 September 23: Sodium 137 potassium 4.2 BUN 66 creatinine 1.28 September 19: White count 8.5 hemoglobin 12.5 platelets 346 potassium 3.8 BUN 101 creatinine 5.25 lactic acid 2.1 Troponin I 0.042 proBNP 531 UA: Negative for nitrate leukoesterase. Influenza type A, type B, RSV, COVID-19: Not detected EKG tracing personally reviewed by me-atrial fibrillation with a rate of 116. Chest x-ray film personally reviewed by me-cardiomegaly. Previous labs: August 22, 2023: BUN 29.8. Creatinine 1.2 Assessment and plan: -Acute COPD exacerbation in an ex cigarette smoker: Better DuoNeb every 6, Pulmicort 1 mg nebulizer twice a day, IV [id number] -Acute kidney injury suspect prerenal/ATN.: Resolved Patient's creatinine was 1.2 in August 22, 2023. Admission creatinine 5.25 Entresto, Aldactone, Lasix held -Paroxysmal atrial flutter fibrillation a prior history of ablation cardioversion after that.: Now back in atrial fibrillation. Eliquis-resumed. Lopressor 25 p.o. twice daily -chronic congestive heart failure that from systolic and diastolic dysfunction EF 40 % Entresto. Aldactone Lasix -Right lower extremity/foot dorsum cellulitis, with wound IV ceftriaxone. Jacoby. Aquacel silver dressing. ID following - chronic pancreatitis from alcoholism: -Alcohol-induced cirrhosis: Aldactone. Lasix -Chronic fibromyalgia Flexeril 10 mg 3 times a day -Metabolic acidosis from renal failure: Better Sodium bicarbonate drip-discontinued -Essential hypertension, Lopressor 25 mg twice daily -Scabies ruled out per ID -Severe hyperglycemia secondary steroids: Improved Cover with sliding scale. DC Solu-Medrol -Primary osteoarthritis, multiple joints bilaterally Pain medications as needed -Alcoholic peripheral neuropathy -restless leg syndrome Requip 4 mg daily at bedtime -Alvarenga's esophagus Protonix 40 mg a day -Full code. Lasix and Entresto resumed. Past Medical History Past Medical History: Atrial Fibrillation, Coronary Artery Disease (CAD), Heart Failure, COPD, Diabetes Mellitus, Eye Disorder, Fibromyalgia, Hypertension, Myocardial Infarction (SD), Musculoskeletal Disorder, Osteoarthritis (OA), Prostate Disorder, Vascular Disorder Additional Past Medical History / Comment(s): Chronic cough, hx pancreatitis, bilateral glaucoma, neuropathy bilateral feet, poor circulation to legs, varicose veins, RLS, hx BPH, colitis, gastritis, Alvarenga's esophagus, hx Shingles in 2012 with joint pain since, chronic low back pain, DDD. wound to right leg, scabies 06/2023 Last Myocardial Infarction Date:: 09/02/16 History of Any Multi-Drug Resistant Organisms: None Reported Past Surgical History: Appendectomy, Cardiac Ablation, Heart Catheterization, Joint Replacement, Orthopedic Surgery, Prostate Surgery Additional Past Surgical History / Comment(s): Right knee arthroscopy, right knee replacement, EGD, colonoscopy, TURP, cardioversion. Past Anesthesia/Blood Transfusion Reactions: No Reported Reaction Additional Past Anesthesia/Blood Transfusion Reaction / Comment(s): No hx blood transfusion. Past Psychological History: Anxiety, Depression Additional Psychological History / Comment(s): Pt resides with his sister Ewelina. Smoking Status: Former smoker Past Alcohol Use History: Occasional Additional Past Alcohol Use History / Comment(s): Started smoking at age 13, quit 10/2016, started smoking again and now quit just recently 09/2023 Past Drug Use History: Cocaine Additional Drug Use History / Comment(s): Hx cocaine use, none in 20-30 years.
[2023-09-24 17:56] LABS: Glucose,Whole Blood 203 mg/dL (70-110)
[2023-09-24 20:15] LABS: Glucose,Whole Blood 125 mg/dL (70-110)
[2023-09-24] MEDS: SACUBITRIL/VALSARTAN 24 MG-26 MG TABLET PO SCH (21:23)
[2023-09-25 06:53] LABS: African American GFR (CKD) >90 (>60 ml/min/1.73 sqM); Anion Gap 1 mmol/L; Blood Urea Nitrogen 41 mg/dL (9-20); Calcium 8.6 mg/dL (8.4-10.2); Carbon Dioxide 33 mmol/L (22-30); Chloride 105 mmol/L (98-107); Glucose 130 mg/dL (74-99); Non-African American GFR(CKD) 88 (>60 ml/min/1.73 sqM); Potassium 3.8 mmol/L (3.5-5.1); Sodium 139 mmol/L (137-145)
[2023-09-25 07:21] LABS: Glucose,Whole Blood 183 mg/dL (70-110)
--- NOTE | 2023-09-25 09:59 | P.PN ---
Subjective Patient is seen in follow-up for acute kidney injury. Renal function at baseline. Denies chest pain or shortness of breath. Good urine output. Vital signs are stable. General: No acute distress. HEENT: Head exam is unremarkable. LUNGS: No audible rhonchi or wheezes. HEART: Rate and Rhythm are regular. ABDOMEN: Nontender. EXTREMITITES: No edema. Right lower extremity wrapped. No drainage. Objective - Vital Signs Vital signs: Vital Signs Temp 97.5 F L 09/25/23 07:22 Pulse 86 09/25/23 07:22 Resp 16 09/25/23 07:22 BP 142/64 09/25/23 07:22 Pulse Ox 100 09/25/23 07:22 FiO2 Intake & Output 09/24/23 09/25/23 09/25/23 18:59 06:59 18:59 Intake Total 780 Output Total 800 1300 Balance -20 -1300 Intake: Oral 780 Output: Urine 800 1300 Other: Voiding Method Urinal Urinal Urinal # Voids 1 - Labs CBC & Chem 7: 09/22/23 06:59 09/25/23 05:48 Labs: Abnormal Lab Results - Last 24 Hours (Table) 09/24/23 09/24/23 09/24/23 Range/Units 11:52 12:02 17:54 Carbon Dioxide (22-30) mmol/L BUN (9-20) mg/dL Glucose (74-99) mg/dL POC Glucose (mg/dL) 155 H 175 H 203 H (70-110) mg/dL 09/24/23 09/25/23 09/25/23 Range/Units 20:14 05:48 07:19 Carbon Dioxide 33 H (22-30) mmol/L BUN 41 H (9-20) mg/dL Glucose 130 H (74-99) mg/dL POC Glucose (mg/dL) 125 H 183 H (70-110) mg/dL Assessment and Plan Plan: Assessment: 1. Acute kidney injury secondary to ATN secondary to hypotension. Renal function significantly improved. No hydronephrosis noted on kidney ultrasound. 2. Acute on chronic systolic CHF ejection fraction of 35 to 40%. 3. Right lower extremity cellulitis on antibiotics. 4. Volume overload. Plan: Maintain Lasix. Also on Aldactone and Entresto. Advised patient to maintain low-salt diet and fluid restriction of less than 50 ounces per day. Repeat BMP and magnesium level 2 to 3 days postdischarge. Follow-up outpatient in 1 week.
--- NOTE | 2023-09-25 11:52 | P.PN ---
Subjective Progress Note Date: 09/25/23 Principal diagnosis: Reason for follow-up is right lower extremity wound cellulitis rash and a question of scabies Patient is a 63-year-old male with a past medical history significant for coronary artery disease heart failure diabetes mellitus hypertension atrial fibrillation did have a lower extremity cellulitis patient was brought into the hospital for evaluation of cough and difficulty breathing, patient also have multiple skin lesion likely from scratching on the extremities and did have wound to the right lower extremity and concern for possible right leg c ellulitis. On today's evaluation that is 09/25/2023, the patient continues to be afebrile, the patient is on room air and breathing comfortably, the patient still complaining of some cough and shortness of breath no chest pain no nausea vomiting no abdominal pain or pain to the right foot and leg wound no new rash, patient has lost his peripheral IV. The patient did have a creatinine 0.92 no CBC was done today Objective - Vital Signs Vital signs: Vital Signs Temp 97.5 F L 09/25/23 07:22 Pulse 86 09/25/23 07:22 Resp 16 09/25/23 07:22 BP 142/64 09/25/23 07:22 Pulse Ox 100 09/25/23 07:22 FiO2 Intake & Output 09/24/23 09/25/23 09/25/23 18:59 06:59 18:59 Intake Total 780 Output Total 800 1300 Balance -20 -1300 Intake: Oral 780 Output: Urine 800 1300 Other: Voiding Method Urinal Urinal Urinal # Voids 1 - Exam GENERAL DESCRIPTION: Middle-age male lying in bed in no distress RESPIRATORY SYSTEM: Unlabored breathing , decreased breath sounds at bases HEART: S1 S2 regular rate and rhythm , ABDOMEN: Soft , no tenderness EXTREMITIES: Patient did have a minimal erythema to the right lower leg and some weeping edema right foot wound is currently dressed SKIN: Multiple lesion on bilateral upper lower extremity likely from scratching with no evidence of any cellulitis - Labs CBC & Chem 7: 09/22/23 06:59 09/25/23 05:48 Labs: Abnormal Lab Results - Last 24 Hours (Table) 09/24/23 09/24/23 09/24/23 Range/Units 11:52 12:02 17:54 Carbon Dioxide (22-30) mmol/L BUN (9-20) mg/dL Glucose (74-99) mg/dL POC Glucose (mg/dL) 155 H 175 H 203 H (70-110) mg/dL 09/24/23 09/25/23 09/25/23 Range/Units 20:14 05:48 07:19 Carbon Dioxide 33 H (22-30) mmol/L BUN 41 H (9-20) mg/dL Glucose 130 H (74-99) mg/dL POC Glucose (mg/dL) 125 H 183 H (70-110) mg/dL Assessment and Plan (1) Wound of right lower extremity Current Visit: Yes Status: Acute Code(s): S81.801A - UNSPECIFIED OPEN WOUND, RIGHT LOWER LEG, INITIAL ENCOUNTER SNOMED Code(s): 80244117205843498 (2) Rash Current Visit: Yes Status: Acute Code(s): R21 - RASH AND OTHER NONSPECIFIC SKIN ERUPTION SNOMED Code(s): 479380680 (3) Cellulitis of right lower extremity Current Visit: No Status: Acute Code(s): L03.115 - CELLULITIS OF RIGHT LOWER LIMB SNOMED Code(s): 87387853046906323 (4) Penicillin allergy Current Visit: No Status: Acute Code(s): Z88.0 - ALLERGY STATUS TO PENICILLIN SNOMED Code(s): 42095607 Plan: 1patient did have multiple skin lesion on the upper and lower extremity more likely related to the patient scratching them patient denies having any itching associated with it clinically not behaving as scabies 2-patient also have a wound on the dorsal aspect of the right foot with evidence of some slough tissue and superficial ulceration to the right lower leg and surrounding erythema concerning for possible cellulitis 3-penicillin allergy that will limit the number of antibiotics safe to use 4-patient to continue local wound care with Medihoney to the right foot wound followed by moist dressing and Mycolog cream to the erythematous area of the right lower leg and foot area 5-patient lost his IV we will discontinue Rocephin and start the patient on oral Keflex and short course on discharge Dictation was produced using [employer] dictation software. please excuse any grammatical, word or spelling errors. Time with Patient: Less than 30
[2023-09-25 12:46] LABS: Glucose,Whole Blood 176 mg/dL (70-110)
[2023-09-25] MEDS: CEPHALEXIN 500 MG CAP PO SCH (15:44)
[2023-09-25 16:54] LABS: Glucose,Whole Blood 193 mg/dL (70-110)
--- NOTE | 2023-09-25 18:59 | P.PN ---
Progress Note - Text Progress Note Date: 09/25/23 Chief Complaint: Not feeling well This is a [address] Chavez. Chronic stable medical conditions include COPD, fibromyalgia, hypertension, osteoarthritis, chronic pancreatitis from alcoholism, peripheral neuropathy varicose veins, restless leg syndrome, B PH surgery, Alvarenga's esophagus and chronic low back pain from osteoarthritis. Alcohol cirrhosis. . cardioversion done for atrial fibrillation in March 2022. Patient presents with not feeling well. Cough. Increasing shortness of breath. No fever no chills. Some lower extremity swelling. Patient found to be back in A-fib in the ER. Patient is rather itching in the body. Some concern about scabies. Denies any fever and chills. Appetite fair. No change in bowel pattern. September 21: Patient has multiple wounds on the upper and lower extremity from scratching. Seen by ID. Does not feel it scabies. Also wound of the right lower extremity. IV ceftriaxone. Breathing better. On bronchodilators. Getting Medihoney for the right foot. And Aquacel silver dressing. Eating close to 100%. Improvement in kidney function. Sodium bicarbonate drip. September 22: Breathing better. Accu-Chek and over 500. Cover with Humalog. Stop Solu-Medrol. As breathing is better. On sodium bicarbonate drip for acidosis. Lower extremity cellulitis bit better. IV ceftriaxone. Local care. Eating well. Increase Lopressor to 25 mg twice daily. September 23: Accu-Cheks better after steroids were discontinued. Breathing comfortable. Slow improvement in lower extremity cellulitis. Sodium bicarb drip discontinued. IV ceftriaxone. Topical care right foot superficial wound cellulitis. September 24: Breathing stable. On IV ceftriaxone. Wound care continues. Eating well. Patient resumed home Lasix 40 mg twice daily. Resume Entresto from [employer] September 25: Breathing remained stable. Eating well. Switched over to oral Keflex later by Dr. Haley from ID.. Patient is put on Lasix oral and Entresto yesterday. Will repeat labs tomorrow. If doing well discharge home tomorrow. Active Medications Albuterol/Ipratropium (Ipratropium-Albuterol 3 Ml Neb) 3 ml INHALATION RT-QID [place] Last Admin: 09/25/23 14:52 Dose: Not Given Apixaban (Apixaban 2.5 Mg Tablet) 2.5 mg PO BID [facility]; Protocol Last Admin: 09/25/23 08:01 Dose: 2.5 mg Aripiprazole (Aripiprazole 5 Mg Tab) 5 mg PO DAILY@0600 [facility] Last Admin: 09/25/23 08:02 Dose: 5 mg Atorvastatin Calcium (Atorvastatin 20 Mg Tab) 20 mg PO HS@1800 [facility] Last Admin: 09/25/23 17:05 Dose: 20 mg Bisacodyl (Bisacodyl 10 Mg Supp) 10 mg RECTAL ONCE PRN PRN Reason: Constipation Budesonide (Budesonide 1 Mg/2 Ml Nebu) 1 mg INHALATION RT-BID [facility] Last Admin: 09/25/23 08:14 Dose: Not Given Cephalexin (Cephalexin 500 Mg Cap) 500 mg PO TID [facility]; Protocol Last Admin: 09/25/23 15:44 Dose: 500 mg Cyclobenzaprine HCl (Cyclobenzaprine 10 Mg Tab) 10 mg PO TID [facility] Last Admin: 09/25/23 15:44 Dose: 10 mg Dextrose/Water (Dextrose 50% Syringe 50 Ml) 25 ml IVP PER PROTOCOL PRN; Protocol PRN Reason: Hypoglycemia Dextrose/Water (Dextrose 50% Syringe 50 Ml) 50 ml IVP PER PROTOCOL PRN; Protocol PRN Reason: Hypoglycemia Formoterol Fumarate (Formoterol Fumarate 20 Mcg/2 Ml Nebu) 20 mcg INHALATION RT-BID [facility] Last Admin: 09/25/23 08:14 Dose: Not Given Furosemide (Furosemide 40 Mg Tab) 40 mg PO BID@0900,1600 [facility] Last Admin: 09/25/23 15:44 Dose: 40 mg Guaifenesin (Guaifenesin 600 Mg Tablet.Er) 600 mg PO QID [facility] Last Admin: 09/25/23 17:05 Dose: 600 mg Insulin Aspart (Insulin Aspart (Novolog) 100 Unit/Ml Vial) 0 unit SQ [facility]; Protocol Last Admin: 09/25/23 17:05 Dose: 2 unit Latanoprost (Latanoprost 0.005% Ophth Drops 2.5 Ml Btl) 1 drops [facility] Last Admin: 09/24/23 21:24 Dose: 1 drops Loratadine (Loratadine 10 Mg Tab) 10 mg PO DAILY@1200 [facility] Last Admin: 09/25/23 13:00 Dose: 10 mg Metoprolol Tartrate (Metoprolol Tartrate 25 Mg Tab) 25 mg PO BID [facility] Last Admin: 09/25/23 08:01 Dose: 25 mg Montelukast Sodium (Montelukast 10 Mg Tab) 10 mg PO DAILY@1200 [facility] Last Admin: 09/25/23 12:59 Dose: 10 mg Naloxone HCl (Naloxone 0.4 Mg/Ml 1 Ml Vial) 0.2 mg IV Q2M PRN PRN Reason: Opioid Reversal Patient's Own-- (Jardiance 10mg Tab) 10 each PO DAILY@1200 [facility] Last Admin: 09/25/23 13:00 Dose: 10 each Nystatin (Nystatin 100,000unit/Gm Cream 30 Gm Tube) 1 applic TOPICAL BID [facility]; Protocol Last Admin: 09/25/23 08:02 Dose: 1 applic Oxycodone/Acetaminophen (Oxycodone-Apap 10-325mg 1 Each Tab) 1 each PO TID [facility] Last Admin: 09/25/23 15:44 Dose: 1 each Pantoprazole Sodium (Pantoprazole 40 Mg Tablet) 40 mg PO DAILY@1200 [facility] Last Admin: 09/25/23 13:00 Dose: 40 mg Ropinirole HCl (Ropinirole Hcl 4 Mg Tablet) 4 mg PO HS [facility] Last Admin: 09/24/23 21:23 Dose: 4 mg Sacubitril/Valsartan (Sacubitril/Valsartan 24 Mg-26 Mg Tablet) 1 each PO BID [facility] Last Admin: 09/25/23 08:02 Dose: 1 each Spironolactone (Spironolactone 25 Mg Tab) 25 mg PO DAILY [facility] Last Admin: 09/25/23 08:01 Dose: 25 mg Tamsulosin HCl (Tamsulosin 0.4 Mg Cap.Er.24h) 0.4 mg PO DAILY@1200 [facility] Last Admin: 09/25/23 13:00 Dose: 0.4 mg Tiotropium [place]ell (Tiotropium 2.5 Mcg Inhaler) 2 puff INHALATION RT-DAILY [facility] Last Admin: 09/25/23 08:14 Dose: 2 puff Triamcinolone Acetonide (Triamcinolone 0.1% Cream 80 Gm Tube) 1 applic TOPICAL BID [facility]; Protocol Last Admin: 09/25/23 08:03 Dose: 1 applic Past medical history to include: COPD, fibromyalgia, hypertension, osteoarthritis, chronic pancreatitis from alcoholism, peripheral neuropathy, varicose pains, restless leg syndrome, BPH with surgery, Alvarenga's esophagus, chronic low back pain from osteoarthritis, alcohol use disorder with cirrhosis, atrial fibrillation with ablation-went back into atrial fibrillation Social history: lives with his sister Ewelina. Smoked for close to 42 years. Stopped for a few months... Drinking alcohol for years. Stopped February 2022 Physical examination: VITAL SIGNS: 97.9, 104, 16, 143/77, 100% on 2 L GENERAL: Sitting at the edge of the bed. Scattered scratch de la cruz. With superficial bleeding at places. EYES: Pupils equal. Conjunctiva normal. HEENT: External appearance of nose and ears normal, oral cavity grossly normal. NECK: JVD raised; masses not palpable. HEART: Heart sounds irregular; edema. LUNGS: Respiratory rate normal; improved air entry ABDOMEN: Soft, , nontender, liver spleen not palpable, no masses palpable. divarification of recti . PSYCH: Alert and oriented x3; mood and affect anxiousl. MUSCULOSKELETAL:No Clubbing/cyanosis;muscles-grossly intact. evidence of OA NEUROLOGICAL: Cranial nerves grossly intact; no facial asymmetry, power and sensation grossly intact. DERMATOLOGICAL: Several scattered areas of scratch de la cruz. Redness right lower extremity mid lower leg down to the ankle. Some breakdown of blisters: Some improvement INVESTIGATIONS, reviewed in the clinical context: September 25: Potassium 3.8 creatinine 0.92 September 24: Potassium 4.1 creatinine 1.02 September 23: Sodium 137 potassium 4.2 BUN 66 creatinine 1.28 September 19: White count 8.5 hemoglobin 12.5 platelets 346 potassium 3.8 BUN 101 creatinine 5.25 lactic acid 2.1 Troponin I 0.042 proBNP 531 UA: Negative for nitrate leukoesterase. Influenza type A, type B, RSV, COVID-19: Not detected EKG tracing personally reviewed by me-atrial fibrillation with a rate of 116. Chest x-ray film personally reviewed by me-cardiomegaly. Previous labs: August 22, 2023: BUN 29.8. Creatinine 1.2 Assessment and plan: -Acute COPD exacerbation in an ex cigarette smoker: Better DuoNeb every 6, Pulmicort 1 mg nebulizer twice a day, IV [id number] -Acute kidney injury suspect prerenal/ATN.: Resolved Patient's creatinine was 1.2 in August 22, 2023. Admission creatinine 5.25 Entresto, Aldactone, Lasix held -Paroxysmal atrial flutter fibrillation a prior history of ablation cardioversion after that.: Now back in atrial fibrillation. Eliquis-resumed. Lopressor 25 p.o. twice daily -chronic congestive heart failure that from systolic and diastolic dysfunction EF 40 % Entresto. Aldactone Lasix -Right lower extremity/foot dorsum cellulitis, with wound [facility]. ID following - chronic pancreatitis from alcoholism: -Alcohol-induced cirrhosis: Aldactone. Lasix -Chronic fibromyalgia Flexeril 10 mg 3 times a day -Metabolic acidosis from renal failure: Better Sodium bicarbonate drip-discontinued -Essential hypertension, Lopressor 25 mg twice daily -Scabies ruled out per ID -Severe hyperglycemia secondary steroids: Improved Cover with sliding scale. DC Solu-Medrol -Primary osteoarthritis, multiple joints bilaterally Pain medications as needed -Alcoholic peripheral neuropathy -restless leg syndrome Requip 4 mg daily at bedtime -Alvarenga's esophagus Protonix 40 mg a day -Full code. Being switched over to oral antibiotic. Lasix and Entresto started yesterday. Repeat labs in the morning. If stable and discharged home. Past Medical History Past Medical History: Atrial Fibrillation, Coronary Artery Disease (CAD), Heart Failure, COPD, Diabetes Mellitus, Eye Disorder, Fibromyalgia, Hypertension, Myocardial Infarction ([place]), Musculoskeletal Disorder, Osteoarthritis (OA), Prostate Disorder, Vascular Disorder Additional Past Medical History / Comment(s): Chronic cough, hx pancreatitis, bilateral glaucoma, neuropathy bilateral feet, poor circulation to legs, varicose veins, RLS, hx BPH, colitis, gastritis, Alvarenga's esophagus, hx Shingles in 2012 with joint pain since, chronic low back pain, DDD. wound to right leg, scabies 06/2023 Last Myocardial Infarction Date:: 09/02/16 History of Any Multi-Drug Resistant Organisms: None Reported Past Surgical History: Appendectomy, Cardiac Ablation, Heart Catheterization, Joint Replacement, Orthopedic Surgery, Prostate Surgery Additional Past Surgical History / Comment(s): Right knee arthroscopy, right knee replacement, EGD, colonoscopy, TURP, cardioversion. Past Anesthesia/Blood Transfusion Reactions: No Reported Reaction Additional Past Anesthesia/Blood Transfusion Reaction / Comment(s): No hx blood transfusion. Past Psychological History: Anxiety, Depression Additional Psychological History / Comment(s): Pt resides with his sister Ewelina. Smoking Status: Former smoker Past Alcohol Use History: Occasional Additional Past Alcohol Use History / Comment(s): Started smoking at age 13, quit 10/2016, started smoking again and now quit just recently 09/2023 Past Drug Use History: Cocaine Additional Drug Use History / Comment(s): Hx cocaine use, none in 20-30 years.
[2023-09-25 20:21] LABS: Glucose,Whole Blood 314 mg/dL (70-110)
[2023-09-26 07:20] LABS: Glucose,Whole Blood 236 mg/dL (70-110)
[2023-09-26 08:17] VITALS: BP 135/78; PULSE 110; TEMP 98.1
[2023-09-26 08:47] VITALS: BMI 30.9
[2023-09-26 10:04] VITALS: RESP 16
--- NOTE | 2023-09-26 10:11 | P.PN ---
Subjective Patient is seen in follow-up for acute kidney injury. Renal function at baseline. Denies chest pain or shortness of breath. Good urine output. Vital signs are stable. General: No acute distress. HEENT: Head exam is unremarkable. LUNGS: No audible rhonchi or wheezes. HEART: Rate and Rhythm are regular. ABDOMEN: Nontender. EXTREMITITES: No edema. Right lower extremity wrapped. No drainage. Objective - Vital Signs Vital signs: Vital Signs Temp 98.1 F 09/26/23 08:00 Pulse 110 H 09/26/23 09:00 Resp 16 09/26/23 09:00 BP 135/78 09/26/23 08:00 Pulse Ox 97 09/26/23 08:00 FiO2 Intake & Output 09/25/23 09/26/23 09/26/23 18:59 06:59 18:59 Output Total 2200 1100 250 Balance -2200 -1100 -250 Weight 103.419 kg Output: Urine 2200 1100 250 Other: Voiding Method Urinal Urinal Urinal # Voids 1 - Labs CBC & Chem 7: 09/22/23 06:59 09/25/23 05:48 Labs: Abnormal Lab Results - Last 24 Hours (Table) 09/25/23 09/25/23 09/25/23 Range/Units 12:44 16:53 20:20 POC Glucose (mg/dL) 176 H 193 H 314 H (70-110) mg/dL 09/26/23 Range/Units 07:19 POC Glucose (mg/dL) 236 H (70-110) mg/dL Assessment and Plan Plan: Assessment: 1. Acute kidney injury secondary to ATN secondary to hypotension. Renal function significantly improved. No hydronephrosis noted on kidney ultrasound. 2. Acute on chronic systolic CHF ejection fraction of 35 to 40%. 3. Right lower extremity cellulitis on antibiotics. 4. Volume overload. Improving with diuresis. Plan: Maintain Lasix. Also on Aldactone and Entresto. Advised patient to maintain low-salt diet and fluid restriction of less than 50 ounces per day. Repeat BMP and magnesium level 2 to 3 days postdischarge. Follow-up outpatient in 1 week.
[2023-09-26 11:55] LABS: BUN/Creat Ratio 33.89 Ratio (12.00-20.00); Blood Urea Nitrogen 30.5 mg/dL (9.0-27.0); Calcium 8.6 mg/dL (8.7-10.3); Carbon Dioxide 31.1 mmol/L (21.6-31.8); Chloride 102 mmol/L (96-109); Glucose 189 mg/dL (70-110); Magnesium 1.5 mg/dL (1.5-2.4); Potassium 3.9 mmol/L (3.5-5.5); Sodium 141 mmol/L (135-145)
--- NOTE | 2023-09-26 12:54 | P.PN ---
Subjective Progress Note Date: 09/26/23 Principal diagnosis: Reason for follow-up is right lower extremity wound cellulitis rash and a question of scabies Patient is a 63-year-old male with a past medical history significant for coronary artery disease heart failure diabetes mellitus hypertension atrial fibrillation did have a lower extremity cellulitis patient was brought into the hospital for evaluation of cough and difficulty breathing, patient also have multiple skin lesion likely from scratching on the extremities and did have wound to the right lower extremity and concern for possible right leg c ellulitis. On today's evaluation that is 09/26/2023, Patient is afebrile , patient is currently on 2 L nasal cannula oxygen the patient complaining of shortness of breath, the patient denies any chest pain continue complaining of cough but not bring up any sputum, the patient denies any nausea vomiting did not have any abdominal pain and no diarrhea, denies pain to the lower extremity. Creatinine 0.9 Objective - Vital Signs Vital signs: Vital Signs Temp 98.1 F 09/26/23 08:00 Pulse 110 H 09/26/23 09:00 Resp 16 09/26/23 09:00 BP 135/78 09/26/23 08:00 Pulse Ox 97 09/26/23 08:00 FiO2 Intake & Output 09/25/23 09/26/23 09/26/23 18:59 06:59 18:59 Output Total 2200 1100 250 Balance -2200 -1100 -250 Weight 103.419 kg Output: Urine 2200 1100 250 Other: Voiding Method Urinal Urinal Urinal # Voids 1 - Exam GENERAL DESCRIPTION: Middle-age male lying in bed in no distress RESPIRATORY SYSTEM: Unlabored breathing , decreased breath sounds at bases HEART: S1 S2 regular rate and rhythm , ABDOMEN: Soft , no tenderness EXTREMITIES: Patient did have a minimal erythema to the right lower leg and some weeping edema right foot wound is currently dressed SKIN: Multiple lesion on bilateral upper lower extremity likely from scratching with no evidence of any cellulitis - Labs CBC & Chem 7: 09/22/23 06:59 09/26/23 06:17 Labs: Abnormal Lab Results - Last 24 Hours (Table) 09/25/23 09/25/23 09/26/23 Range/Units 16:53 20:20 06:17 BUN 30.5 H (9.0-27.0) mg/dL BUN/Creatinine Ratio 33.89 H (12.00-20.00) Ratio Glucose 189 H (70-110) mg/dL POC Glucose (mg/dL) 193 H 314 H (70-110) mg/dL Calcium 8.6 L (8.7-10.3) mg/dL 09/26/23 Range/Units 07:19 BUN (9.0-27.0) mg/dL BUN/Creatinine Ratio (12.00-20.00) Ratio Glucose (70-110) mg/dL POC Glucose (mg/dL) 236 H (70-110) mg/dL Calcium (8.7-10.3) mg/dL Assessment and Plan (1) Wound of right lower extremity Status: Acute Code(s): S81.801A - UNSPECIFIED OPEN WOUND, RIGHT LOWER LEG, INITIAL ENCOUNTER SNOMED Code(s): 76835184278891466 (2) Rash Status: Acute Code(s): R21 - RASH AND OTHER NONSPECIFIC SKIN ERUPTION SNOMED Code(s): 012955301 (3) Cellulitis of right lower extremity Status: Acute Code(s): L03.115 - CELLULITIS OF RIGHT LOWER LIMB SNOMED Code(s): 79654722718610714 (4) Penicillin allergy Status: Acute Code(s): Z88.0 - ALLERGY STATUS TO PENICILLIN SNOMED Code(s): 63599154 Plan: 1patient did have multiple skin lesion on the upper and lower extremity more likely related to the patient scratching them patient denies having any itching associated with it clinically not behaving as scabies 2-patient also have a wound on the dorsal aspect of the right foot with evidence of some slough tissue and superficial ulceration to the right lower leg and surrounding erythema concerning for possible cellulitis 3-penicillin allergy that will limit the number of antibiotics safe to use 4-patient to continue local wound care with Medihoney to the right foot wound followed by moist dressing and Mycolog cream to the erythematous area of the right lower leg and foot area 5-patient advised to continue with oral Keflex x 7 days on discharge Dictation was produced using [employer] software. please excuse any grammatical, word or spelling errors. Time with Patient: Less than 30
--- NOTE | 2023-09-26 21:15 | P.DS ---
Providers Date of admission: 09/19/23 17:28 Expected date of discharge: 09/26/23 Attending physician: Jamal Tamayo Consults: 09/19/23 17:27 Consult Physician Urgent Consulting Provider: Anna Azevedo Consult Reason/Comments: thanh Do you want consulting provider notified?: Yes 09/19/23 18:19 Consult Physician Routine Consulting Provider: Evan Yen Consult Reason/Comments: chf Do you want consulting provider notified?: Yes 09/19/23 18:41 Consult Physician Routine Consulting Provider: Pily Horton Consult Reason/Comments: scabies Do you want consulting provider notified?: Yes Primary care physician: Albert Chavez [facility] Course: Chief Complaint: Not feeling well This is a [address] Chavez. Chronic stable medical conditions include COPD, fibromyalgia, hypertension, osteoarthritis, chronic pancreatitis from alcoholism, peripheral neuropathy varicose veins, restless leg syndrome, BPH surgery, Alvarenga's esophagus and chronic low back pain from osteoarthritis. Alcohol cirrhosis. . cardioversion done for atrial fibrillation in March 2022. Patient presents with not feeling well. Cough. Increasing shortness of breath. No fever no chills. Some lower extremity swelling. Patient found to be back in A-fib in the ER. Patient is rather itching in the body. Some concern about scabies. Denies any fever and chills. Appetite fair. No change in bowel pattern. September 21: Patient has multiple wounds on the upper and lower extremity from scratching. Seen by ID. Does not feel it scabies. Also wound of the right lower extremity. IV ceftriaxone. Breathing better. On bronchodilators. Getting Medihoney for the right foot. And Aquacel silver dressing. Eating close to 100%. Improvement in kidney function. Sodium bicarbonate drip. September 22: Breathing better. Accu-Chek and over 500. Cover with Humalog. Stop Solu-Medrol. As breathing is better. On sodium bicarbonate drip for acidosis. Lower extremity cellulitis bit better. IV ceftriaxone. Local care. Eating well. Increase Lopressor to 25 mg twice daily. September 23: Accu-Cheks better after steroids were discontinued. Breathing comfortable. Slow improvement in lower extremity cellulitis. Sodium bicarb drip discontinued. IV ceftriaxone. Topical care right foot superficial wound cellulitis. September 24: Breathing stable. On IV ceftriaxone. Wound care continues. Eating well. Patient resumed home Lasix 40 mg twice daily. Resume Entresto from [employer]. September 25: Breathing remained stable. Eating well. Switched over to oral Keflex later by Dr. Haley from ID.. Patient is put on Lasix oral and Entresto yesterday. Will repeat labs tomorrow. If doing well discharge home tomorrow. September 26: Patient again reminded not to scratch his skin. Keep his nails short. 7 more days of Keflex per ID. Home medication was done. Patient to follow-up with ID and cardiology and PCP. Wound care to continue Marcie Dr. Horton. Questions answered Discussion and discharge planning more than 35 minutes Past medical history to include: COPD, fibromyalgia, hypertension, osteoarthritis, chronic pancreatitis from alcoholism, peripheral neuropathy, varicose pains, restless leg syndrome, BPH with surgery, Alvarenga's esophagus, chronic low back pain from osteoarthritis, alcohol use disorder with cirrhosis, atrial fibrillation with ablation-went back into atrial fibrillation Social history: lives with his sister Ewelina. Smoked for close to 42 years. Stopped for a few months... Drinking alcohol for years. Stopped February 2022 Physical examination: VITAL SIGNS: 98.1, 110, 18, 135/78, 97% room air GENERAL: Comfortable scattered scratch de la cruz. With superficial bleeding at places. EYES: Pupils equal. Conjunctiva normal. HEENT: External appearance of nose and ears normal, oral cavity grossly normal. NECK: JVD raised; masses not palpable. HEART: Heart sounds irregular; edema. LUNGS: Respiratory rate normal; improved air entry ABDOMEN: Soft, , nontender, liver spleen not palpable, no masses palpable. divarification of recti . PSYCH: Alert and oriented x3; mood and affect anxiousl. MUSCULOSKELETAL:No Clubbing/cyanosis;muscles-grossly intact. evidence of OA NEUROLOGICAL: Cranial nerves grossly intact; no facial asymmetry, power and sensation grossly intact. DERMATOLOGICAL: Several scattered areas of scratch de la cruz. Redness right lower extremity mid lower leg down to the ankle. Some breakdown of blisters: Some improvement INVESTIGATIONS, reviewed in the clinical context: September 26: Potassium 3.9 creatinine 0.9 September 23: Sodium 137 potassium 4.2 BUN 66 creatinine 1.28 September 19: White count 8.5 hemoglobin 12.5 platelets 346 potassium 3.8 BUN 101 creatinine 5.25 lactic acid 2.1 Troponin I 0.042 proBNP 531 UA: Negative for nitrate leukoesterase. Influenza type A, type B, RSV, COVID-19: Not detected EKG tracing personally reviewed by me-atrial fibrillation with a rate of 116. Chest x-ray film personally reviewed by me-cardiomegaly. Previous labs: August 22, 2023: BUN 29.8. Creatinine 1.2 Assessment and plan: -Acute COPD exacerbation in an ex cigarette smoker: Better DuoNeb every 6, Pulmicort 1 mg nebulizer twice a day, IV Xyes-Xprcot-htcktzl -Acute kidney injury suspect prerenal/ATN.: Resolved Patient's creatinine was 1.2 in August 22, 2023. Admission creatinine 5.25 Entresto, Aldactone, Lasix resumed -Paroxysmal atrial flutter fibrillation a prior history of ablation cardioversion after that.: Now back in atrial fibrillation. Eliquis-resumed. Lopressor 25 p.o. twice daily -chronic congestive heart failure that from systolic and diastolic dysfunction EF 40 % Entresto. Aldactone Lasix -Right lower extremity/foot dorsum cellulitis, with wound IV ceftriaxone. [facility]. Aquacel silver dressing. ID following Discharged on Keflex for 7 days - chronic pancreatitis from alcoholism: -Alcohol-induced cirrhosis: Aldactone. Lasix -Chronic fibromyalgia Flexeril 10 mg 3 times a day -Metabolic acidosis from renal failure: Better Sodium bicarbonate drip-discontinued -Essential hypertension, Lopressor 25 mg twice daily -Scabies ruled out per ID -Severe hyperglycemia secondary steroids: Improved Cover with sliding scale. DC Solu-Medrol -Primary osteoarthritis, multiple joints bilaterally Pain medications as needed -Alcoholic peripheral neuropathy -restless leg syndrome Requip 4 mg daily at bedtime -Alvarenga's esophagus Protonix 40 mg a day -Full code. Disposition: Home Past Medical History Past Medical History: Atrial Fibrillation, Coronary Artery Disease (CAD), Heart Failure, COPD, Diabetes Mellitus, Eye Disorder, Fibromyalgia, Hypertension, Myocardial Infarction ([place]), Musculoskeletal Disorder, Osteoarthritis (OA), Prostate Disorder, Vascular Disorder Additional Past Medical History / Comment(s): Chronic cough, hx pancreatitis, bilateral glaucoma, neuropathy bilateral feet, poor circulation to legs, varicose veins, RLS, hx BPH, colitis, gastritis, Alvarenga's esophagus, hx Shingles in 2012 with joint pain since, chronic low back pain, DDD. wound to right leg, scabies 06/2023 Last Myocardial Infarction Date:: 09/02/16 History of Any Multi-Drug Resistant Organisms: None Reported Past Surgical History: Appendectomy, Cardiac Ablation, Heart Catheterization, Joint Replacement, Orthopedic Surgery, Prostate Surgery Additional Past Surgical History / Comment(s): Right knee arthroscopy, right knee replacement, EGD, colonoscopy, TURP, cardioversion. Past Anesthesia/Blood Transfusion Reactions: No Reported Reaction Additional Past Anesthesia/Blood Transfusion Reaction / Comment(s): No hx blood transfusion. Past Psychological History: Anxiety, Depression Additional Psychological History / Comment(s): Pt resides with his sister Ewelina. Smoking Status: Former smoker Past Alcohol Use History: Occasional Additional Past Alcohol Use History / Comment(s): Started smoking at age 13, quit 10/2016, started smoking again and now quit just recently 09/2023 Past Drug Use History: Cocaine Additional Drug Use History / Comment(s): Hx cocaine use, none in 20-30 years. Plan - Discharge Summary Discharge Rx Participant: No New Discharge Prescriptions: New Triamcinolone 0.1% Cream [Kenalog 0.1% Cream] 1 applic TOPICAL BID #1 each Metoprolol Tartrate [Lopressor] 25 mg PO BID #60 tab Nystatin 100,000Unit/gm Cream [Mycostatin Cream] 1 applic TOPICAL BID #1 each Cephalexin [Keflex] 500 mg PO TID #21 cap Continue Montelukast [Singulair] 10 mg PO DAILY@1200 Tamsulosin [Flomax] 0.4 mg PO DAILY@1200 Cyclobenzaprine [Flexeril] 10 mg PO TID Empagliflozin [Jardiance] 10 mg PO DAILY@1200 Omeprazole [PriLOSEC] 20 mg PO DAILY@1200 rOPINIRole HCL [Requip] 4 mg PO HS Budesonide-Formot 160-4.5 Mcg [Symbicort 160-4.5 Mcg Inhaler] 2 puff INHALATION RT-BID Sacubitril/Valsartan [Entresto 24 mg-26 mg Tablet] 1 tab PO BID@0600,1800 Tiotropium 2.5 Mcg/Puff [Spiriva Respimat 2.5 Mcg] 2 puff INHALATION RT-DAILY Atorvastatin [Lipitor] 20 mg PO HS@1800 Spironolactone [Aldactone] 25 mg PO DAILY@1200 ARIPiprazole [Abilify] 5 mg PO DAILY@0600 Latanoprost [Latanoprost 0.005%] 1 drop BOTH EYES HS oxyCODONE-APAP 10-325MG [Percocet 10-325 mg] 1 tab PO TID Changed Furosemide [Lasix] 40 mg PO BID #60 tab Loratadine [Claritin] 5 mg PO BID #0 Discontinued SILVER sulfADIAZINE Cream [Silvadene 1% Cream] 1 applic TOPICAL DAILY No Action Super B Complex With Vitamin C 1 tab PO DAILY@1200 Apixaban [Eliquis] 5 mg PO BID@0600,1800 Fish Oil 600mg 3 cap PO DAILY Discharge Medication List Montelukast [Singulair] 10 mg PO DAILY@1200 01/12/18 [History] Tamsulosin [Flomax] 0.4 mg PO DAILY@1200 11/08/21 [History] rOPINIRole HCL [Requip] 4 mg PO HS 11/08/21 [History] Cyclobenzaprine [Flexeril] 10 mg PO TID 11/24/21 [History] Budesonide-Formot 160-4.5 Mcg [Symbicort 160-4.5 Mcg Inhaler] 2 puff INHALATION RT-BID 04/11/22 [History] Empagliflozin [Jardiance] 10 mg PO DAILY@1200 04/11/22 [History] Apixaban [Eliquis] 5 mg PO BID@0600,1800 05/13/22 [History] Sacubitril/Valsartan [Entresto 24 mg-26 mg Tablet] 1 tab PO BID@0600,1800 05/13/22 [History] Atorvastatin [Lipitor] 20 mg PO HS@1800 02/28/23 [History] Tiotropium 2.5 Mcg/Puff [Spiriva Respimat 2.5 Mcg] 2 puff INHALATION RT-DAILY 02/28/23 [History] Omeprazole [PriLOSEC] 20 mg PO DAILY@1200 06/27/23 [History] Spironolactone [Aldactone] 25 mg PO DAILY@1200 06/27/23 [History] ARIPiprazole [Abilify] 5 mg PO DAILY@0600 07/27/23 [History] Latanoprost [Latanoprost 0.005%] 1 drop BOTH EYES HS 07/27/23 [History] Super B Complex With Vitamin C 1 tab PO DAILY@1200 07/27/23 [History] Fish Oil 600mg 3 cap PO DAILY 09/19/23 [History] oxyCODONE-APAP 10-325MG [Percocet 10-325 mg] 1 tab PO TID 09/19/23 [History] Cephalexin [Keflex] 500 mg PO TID #21 cap 09/26/23 [Rx] Furosemide [Lasix] 40 mg PO BID #60 tab 09/26/23 [Rx] Loratadine [Claritin] 5 mg PO BID #0 09/26/23 [Rx] Metoprolol Tartrate [Lopressor] 25 mg PO BID #60 tab 09/26/23 [Rx] Nystatin 100,000Unit/gm Cream [Mycostatin Cream] 1 applic TOPICAL BID #1 each 09/26/23 [Rx] Triamcinolone 0.1% Cream [Kenalog 0.1% Cream] 1 applic TOPICAL BID #1 each 09/26/23 [Rx] Follow up Appointment(s)/Referral(s): [facility] [REFERRING] - 1-2 days (please call the office to schedule a follow up appointment.) Pily Horton MD [STAFF PHYSICIAN] - 1 Week (please call the office to schedule a follow up appointment) Hemal Avila MD [STAFF PHYSICIAN] - 10/09/23 9:30 am Patient Instructions/Handouts: Cephalexin (By mouth), Metoprolol (By mouth), Furosemide (By mouth), Nystatin (On the skin), Triamcinolone (On the skin), Acute Kidney Injury (DC) Activity/Diet/Wound Care/Special Instructions: wound orders per dr horton Discharge Disposition: HOME SELF-CARE
== END 2023-09-26 12:20 | disposition home or self-care (01) | DRG 469 ==
LOC: EC 15:33 → 5NMEDONC 17:28
PROVIDERS: ADMIT Hospitalist; ATTEND Hospitalist
PROC: 8E0ZXY6 Isolation (ICD-10-PCS; principal; 2023-09-20)
DX: N17.0 Acute kidney failure with tubular necrosis (principal); J44.1 Chronic obstructive pulmonary disease with (acute) exacerbation; E87.1 Hypo-osmolality and hyponatremia; F10.21 Alcohol dependence, in remission; Z81.1 Family history of alcohol abuse and dependence; F32.A Depression, unspecified; F41.9 Anxiety disorder, unspecified; G25.81 Restless legs syndrome; G62.1 Alcoholic polyneuropathy; G89.29 Other chronic pain; I08.3 Combined rheumatic disorders of mitral, aortic and tricuspid valves; I11.0 Hypertensive heart disease with heart failure; I25.10 Atherosclerotic heart disease of native coronary artery without angina pectoris; Z87.891 Personal history of nicotine dependence; I25.2 Old myocardial infarction; I48.19 Other persistent atrial fibrillation; L03.115 Cellulitis of right lower limb; K86.0 Alcohol-induced chronic pancreatitis; K70.30 Alcoholic cirrhosis of liver without ascites; I48.92 Unspecified atrial flutter; E66.9 Obesity, unspecified; Z68.30 Body mass index [BMI] 30.0-30.9, adult; I50.43 Acute on chronic combined systolic (congestive) and diastolic (congestive) heart failure; I83.90 Asymptomatic varicose veins of unspecified lower extremity; Z28.310 Unvaccinated for COVID-19; Z11.52 Encounter for screening for COVID-19; K22.70 Barrett's esophagus without dysplasia; K59.00 Constipation, unspecified; M15.9 Polyosteoarthritis, unspecified; M47.9 Spondylosis, unspecified; M79.7 Fibromyalgia; N40.0 Benign prostatic hyperplasia without lower urinary tract symptoms; Z79.51 Long term (current) use of inhaled steroids; Z79.84 Long term (current) use of oral hypoglycemic drugs; Z79.899 Other long term (current) drug therapy; Z82.49 Family history of ischemic heart disease and other diseases of the circulatory system; Z82.5 Family history of asthma and other chronic lower respiratory diseases; Z88.0 Allergy status to penicillin; Z96.651 Presence of right artificial knee joint; Z71.3 Dietary counseling and surveillance; Z79.01 Long term (current) use of anticoagulants
CPT/HCPCS: 36415; 71046; 76770; 80048; 80053; 81001; 83605; 83735; 83880; 84100; 84145; 84484; 85025; 85610; 85730; 86140; 87636; 93005; 94640; 94760; 96361; 96374; 99285

== ENCOUNTER → 2023-11-16 | Outpatient (CLI) | payer OTHER ==
[2023-11-16 21:41] LABS: Blood Urea Nitrogen 17.5 mg/dL (9.0-27.0); Calcium 9.4 mg/dL (8.7-10.3); Carbon Dioxide 29.9 mmol/L (21.6-31.8); Chloride 98 mmol/L (96-109); Glucose 124 mg/dL (70-110); Potassium 4.2 mmol/L (3.5-5.5); Sodium 140 mmol/L (135-145)
[2023-11-16 23:16] LABS: NT-Pro-B-Type Natriuretic Pept 1217 pg/mL (0-125)
== END | disposition home or self-care (01) ==
LOC: LABWHC1 11:30
PROVIDERS: ATTEND Internal Medicine Cardiovascular Disease
DX: I48.11 Longstanding persistent atrial fibrillation (principal)
CPT/HCPCS: 36415; 80048; 83880

== ENCOUNTER 2023-11-23 11:03 | Emergency (ER) | payer OTHER ==
[2023-11-23 11:35] VITALS: TEMP 97.9
[2023-11-23] MEDS: ONDANSETRON 4 MG/2 ML VIAL IVP STA (13:00)
[2023-11-23] MEDS: HYDROmorphone 1 MG/ML 1 ML SYRINGE IVP STA (13:01)
[2023-11-23] MEDS: SODIUM CHLORIDE 0.9% 500 ML 500 ML IV STA (13:04)
[2023-11-23 13:20] LABS: Basophils # (A) 0.1 k/uL (0-0.2); Basophils % (A) 1 %; Eosinophils # (A) 0.2 k/uL (0-0.7); Eosinophils % (A) 2 %; HCT 42.7 % (39.0-53.0); HGB 13.7 gm/dL (13.0-17.5); Lymphocytes % (A) 12 %; MCH 30.9 pg (25.0-35.0); MCHC 32.1 g/dL (31.0-37.0); MCV 96.1 fL (80.0-100.0); Mean Platelet Volume 7.8; Monocytes # (A) 0.5 k/uL (0-1.0); Monocytes % (A) 6 %; Neutrophils # (A) 6.9 k/uL (1.3-7.7); Neutrophils % (A) 79 %; Platelet Count 255 k/uL (150-450); RBC 4.44 m/uL (4.30-5.90); RDW 14.6 % (11.5-15.5); WBC 8.8 k/uL (3.8-10.6)
[2023-11-23 13:25] LABS: Appearance,Urine Clear (Clear); Bilirubin,Urine Negative (Negative); Blood,Urine Negative (Negative); Color,Urine Colorless; Glucose,Urine (UA) 4+ (Negative); Ketones,Urine Negative (Negative); Leukocyte Esterase,Urine Negative (Negative); Nitrite,Urine Negative (Negative); Protein,Urine Negative (Negative); Specific Gravity,Urine 1.011 (1.001-1.035); Urobilinogen,Urine <2.0 mg/dL (<2.0)
--- NOTE | 2023-11-23 13:34 | ED ---
Abdominal Pain HPI - General Chief Complaint: Abdominal Pain Stated Complaint: Abd pain/swelling Time Seen by Provider: 11/23/23 12:08 Source: patient Mode of arrival: wheelchair Limitations: no limitations - History of Present Illness Initial Comments: 63-year-old male with past medical history of A-fib, heart failure, pancreatitis who presents emergency department reporting epigastric pain. 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 He began having some pain yesterday morning. He admits that he did drink a couple beers. Patient drinks 3 times per week. Pain intensified last night. States he has not taken any thing for the pain. He had to come to the wound care center earlier today for his lower extremities and figured he would "get it checked out". He denies any nausea. No changes in his bowel or bladder habits. No fevers. No other alleviating, precipitating modifying factors - Related Data Home Medications Medication Instructions Recorded Confirmed Montelukast [Singulair] 10 mg PO DAILY@1200 01/12/18 11/23/23 Tamsulosin [Flomax] 0.4 mg PO DAILY@1200 11/08/21 11/23/23 rOPINIRole HCL [Requip] 4 mg PO HS 11/08/21 11/23/23 Cyclobenzaprine [Flexeril] 10 mg PO TID@0600,1200,1800 11/24/21 11/23/23 Budesonide-Formot 160-4.5 Mcg 2 puff INHALATION RT-BID@0600,1800 04/11/22 11/23/23 [Symbicort 160-4.5 Mcg Inhaler] Empagliflozin [Jardiance] 10 mg PO DAILY@1200 04/11/22 11/23/23 Apixaban [Eliquis] 5 mg PO BID@0600,1800 05/13/22 11/23/23 Atorvastatin [Lipitor] 20 mg PO HS@1800 02/28/23 11/23/23 Tiotropium 2.5 Mcg/Puff [Spiriva 2 puff INHALATION RT-DAILY 02/28/23 11/23/23 Respimat 2.5 Mcg] Omeprazole [PriLOSEC] 20 mg PO BID@0600,1800 06/27/23 11/23/23 ARIPiprazole [Abilify] 5 mg PO DAILY@0600 07/27/23 11/23/23 Latanoprost [Latanoprost 0.005%] 1 drop BOTH EYES HS 07/27/23 11/23/23 oxyCODONE-APAP 10-325MG [Percocet 1 tab PO BID 09/19/23 11/23/23 10-325 mg] Ferrous Sulfate [Feosol] 325 mg PO DAILY@1200 11/23/23 11/23/23 Folic Acid 1 mg PO DAILY@1200 11/23/23 11/23/23 Furosemide [Lasix] 40 mg PO BID@0600,1800 11/23/23 11/23/23 Loratadine [Claritin] 5 mg PO BID@0600,1800 11/23/23 11/23/23 Metoprolol Tartrate [Lopressor] 50 mg PO BID@0600,1800 11/23/23 11/23/23 allopurinoL [Zyloprim] 300 mg PO DAILY@0600 11/23/23 11/23/23 Allergies Allergy/AdvReac Type Severity Reaction Status Date / Time amoxicillin trihydrate AdvReac Rapid Verified 11/23/23 13:28 [From Augmentin] Heart Rate potassium clavulanate AdvReac FELT LIKE Verified 11/23/23 13:28 [From Augmentin] HE WAS GOING TO PASS OUT FAST HEARTBEAT" pregabalin [From Lyrica] AdvReac Leg Verified 11/23/23 13:28 swelling venlafaxine [From Effexor] AdvReac Confusion Verified 11/23/23 13:28 Review of Systems ROS Statement: Those systems with pertinent positive or pertinent negative responses have been documented in the HPI. ROS Other: All systems not noted in ROS Statement are negative. Past Medical History Past Medical History: Atrial Fibrillation, Coronary Artery Disease (CAD), Heart Failure, COPD, Diabetes Mellitus, Eye Disorder, Fibromyalgia, Hypertension, Myocardial Infarction ([place]), Musculoskeletal Disorder, Osteoarthritis (OA), Prostate Disorder, Vascular Disorder Additional Past Medical History / Comment(s): Chronic cough, hx pancreatitis, bilateral glaucoma, neuropathy bilateral feet, poor circulation to legs, varicose veins, RLS, hx BPH, colitis, gastritis, Al[place]renga's esophagus, hx Shingles in 2012 with joint pain since, chronic low back pain, DDD. wound to right leg, scabies 06/2023 Last Myocardial Infarction Date:: 09/02/16 History of Any Multi-Drug Resistant Organisms: None Reported Past Surgical History: Appendectomy, Cardiac Ablation, Heart Catheterization, Joint Replacement, Orthopedic Surgery, Prostate Surgery Additional Past Surgical History / Comment(s): Right knee arthroscopy, right knee replacement, EGD, colonoscopy, TURP, cardioversion. Past Anesthesia/Blood Transfusion Reactions: No Reported Reaction Additional Past Anesthesia/Blood Transfusion Reaction / Comment(s): No hx blood transfusion. Past Psychological History: Anxiety, Depression Smoking Status: Former smoker Past Alcohol Use History: Occasional Past Drug Use History: Cocaine - Past Family History Father Family Medical History: CVA/TIA, Hypertension Additional Family Medical History / Comment(s): Father at the age of 38yrs from HTN/CVA. He was an alcoholic. Mother Family Medical History: COPD, Diabetes Mellitus Additional Family Medical History / Comment(s): Mother of emphysema at the age of 74 yrs (2003), mom had hx of drinking and smoking. General Exam Limitations: no limitations General appearance: alert, in no apparent distress Head exam: Present: atraumatic, normocephalic, normal inspection Eye exam: Present: normal appearance, PERRL, EOMI. Absent: scleral icterus, conjunctival injection, periorbital swelling ENT exam: Present: normal exam, mucous membranes moist Neck exam: Present: normal inspection. Absent: tenderness, meningismus, lymphadenopathy Respiratory exam: Present: normal lung sounds bilaterally. Absent: respiratory distress, wheezes, rales, rhonchi, stridor Cardiovascular Exam: Present: normal rhythm, tachycardia, normal heart sounds. Absent: systolic murmur, diastolic murmur, rubs, gallop, clicks GI/Abdominal exam: Present: soft, tenderness (epigastric), normal bowel sounds. Absent: distended, guarding, rebound, rigid Extremities exam: Present: normal inspection, full ROM, normal capillary refill. Absent: tenderness, pedal edema, joint swelling, calf tenderness Back exam: Present: normal inspection Neurological exam: Present: alert, oriented X3, CN II-XII intact Psychiatric exam: Present: normal affect, normal mood Skin exam: Present: warm, dry, intact, normal color. Absent: rash Course Vital Signs 11/23/23 11/23/23 11/23/23 11:31 12:53 13:40 Temperature 97.9 F Pulse Rate 104 H 110 H 107 H Respiratory 18 20 18 Rate Blood Pressure 160/84 134/97 137/82 O2 Sat by Pulse 98 97 93 L Oximetry 11/23/23 15:04 Temperature Pulse Rate 78 Respiratory 18 Rate Blood Pressure 137/82 O2 Sat by Pulse 93 L Oximetry Medical Decision Making - Medical Decision Making Was pt. sent in by a medical professional or institution (, PA, [employer]EE ANDROID DEVELOPER, urgent care, hospital, or penitentiary...) When possible be specific @ -No Did you speak to anyone other than the patient for history (EMS, parent, family, police, friend...)? What history was obtained from this source @ -No Did you review nursing and triage notes (agree or disagree)? Why? @ -I reviewed and agree with nursing and triage notes Were old charts reviewed (outside hosp., previous admission, EMS record, old EKG, old radiological studies, urgent care reports/EKG's, penitentiary records)? Report findings @ -I reviewed patient's discharge summary from September 2023 Differential Diagnosis (chest pain, altered mental status, abdominal pain women, abdominal pain men, vaginal bleeding, weakness, fever, dyspnea, syncope, headache, dizziness, GI bleed, back pain, seizure, CVA, palpatations, mental health, musculoskeletal)? @ -Differential Abdominal Pain Men: Appendicitis, cholecystitis, diverticulosis, ischemic bowel, pancreatitis, hepatitis, UTI, gastroenteritis, AAA, incarcerated hernia, bowel obstruction, constipation, inflammatory bowel, hepatitis, peptic ulcer disease, splenic infarction, perforated viscus, testicular torsion, this is not meant to be an all-inclusive list EKG interpreted by me (3pts min.). @ -Yes and demonstrates sinus tachycardia with a rate of 105. MO interval 156. QRS 109. QTc of 444. No acute ST segment elevations or depressions X-rays interpreted by me (1pt min.). @ -None done CT interpreted by me (1pt min.). @ -Yes and demonstrates no signs of pancreatitis U/S interpreted by me (1pt. min.). @ -None done What testing was considered but not performed or refused? (CT, X-rays, U/S, labs)? Why? @ -None What meds were considered but not given or refused? Why? @ -None Did you discuss the management of the patient with other professionals (professionals i.e. , PA, [employer] ANDROID DEVELOPER, lab, RT, psych nurse, social worker health services, media clerk, teacher, national insurance officer, director of casework department)? Give summary @ -No Was smoking cessation discussed for >3mins.? @ -No Was critical care preformed (if so, how long)? @ -No Were there social determinants of health that impacted care today? How? (Homelessness, low income, unemployed, alcoholism, drug addiction, transportation, low edu. Level, literacy, decrease access to med. care, fci, rehab)? @ -No Was there de-escalation of care discussed even if they declined (Discuss DNR or withdrawal of care, Hospice)? DNR status @ -No What co-morbidities impacted this encounter? (DM, HTN, Smoking, COPD, CAD, Cancer, CVA, ARF, Chemo, Hep., AIDS, mental health diagnosis, sleep apnea, morbid obesity)? @ -Alcohol use, pancreatitis Was patient admitted / discharged? Hospital course, mention meds given and route, prescriptions, significant lab abnormalities, going to OR and other pertinent info. @ -Upon arrival patient was seen and evaluated in room 3. Thorough history and physical exam was performed. IV was established. Laboratory studies are conducted. Patient was given pain medication. CT was performed. At this time there is no identifiable pancreatitis. Patient is stable for discharge home. Instructed to follow-up with her primary care doctor in regards to her symptoms and return for any new or worsening symptoms. patient was agreeable to this he was discharged in stable condition Undiagnosed new problem with uncertain prognosis? @ -No Drug Therapy requiring intensive monitoring for toxicity (Heparin, Nitro, Insulin, Cardizem)? @ -No Were any procedures done? @ -No Diagnosis/symptom? @ -Acute epigastric abdominal pain, history of pancreatitis Acute, or Chronic, or Acute on Chronic? @ -Acute Uncomplicated (without systemic symptoms) or Complicated (systemic symptoms)? @ -Complicated Side effects of treatment? @ -No Exacerbation, Progression, or Severe Exacerbation? @ -No Poses a threat to life or bodily function? How? (Chest pain, [place], [place], pneumonia, PE, COPD, DKA, ARF, appy, cholecystitis, CVA, Diverticulitis, Homicidal, Suicidal, threat to staff... and all critical care pts) @ -No - Lab Data Result diagrams: 11/23/23 12:51 11/23/23 12:51 Lab Results 11/23/23 11/23/23 11/23/23 Range/Units 12:51 12:51 12:51 WBC 8.8 (3.8-10.6) k/uL RBC 4.44 (4.30-5.90) m/uL Hgb 13.7 (13.0-17.5) gm/dL Hct 42.7 (39.0-53.0) % MCV 96.1 (80.0-100.0) fL MCH 30.9 (25.0-35.0) pg MCHC 32.1 (31.0-37.0) g/dL RDW 14.6 (11.5-15.5) % Plt Count 255 (150-450) k/uL MPV 7.8 Neutrophils % 79 % Lymphocytes % 12 % Monocytes % 6 % Eosinophils % 2 % Basophils % 1 % Neutrophils # 6.9 (1.3-7.7) k/uL Lymphocytes # 1.0 (1.0-4.8) k/uL Monocytes # 0.5 (0-1.0) k/uL Eosinophils # 0.2 (0-0.7) k/uL Basophils # 0.1 (0-0.2) k/uL Sodium 134 L (137-145) mmol/L Potassium 3.7 (3.5-5.1) mmol/L Chloride 99 (98-107) mmol/L Carbon Dioxide 27 (22-30) mmol/L Anion Gap 8 mmol/L BUN 14 (9-20) mg/dL Creatinine 0.91 (0.66-1.25) mg/dL Est GFR (CKD-EPI)AfAm >90 (>60 ml/min/1.73 sqM) Est GFR (CKD-EPI)NonAf 89 (>60 ml/min/1.73 sqM) Glucose 105 H (74-99) mg/dL Lactic Ac Sepsis Rflx Plasma Lactic Acid Carlos Manuel (0.7-2.0) mmol/L Calcium 9.0 (8.4-10.2) mg/dL Total Bilirubin 0.5 (0.2-1.3) mg/dL AST 28 (17-59) U/L ALT 20 (4-49) U/L Alkaline Phosphatase 127 H (38-126) U/L Troponin I (0.000-0.034) ng/mL Total Protein 7.1 (6.3-8.2) g/dL Albumin 3.9 (3.5-5.0) g/dL Lipase 306 H (23-300) U/L Urine Color Colorless Urine Appearance Clear (Clear) Urine pH 6.0 (5.0-8.0) Ur Specific [place] 1.011 (1.001-1.035) Urine Protein Negative (Negative) Urine Glucose (UA) 4+ H (Negative) Urine Ketones Negative (Negative) Urine Blood Negative (Negative) Urine Nitrite Negative (Negative) Urine Bilirubin Negative (Negative) Urine Urobilinogen <2.0 (<2.0) mg/dL Ur Leukocyte Esterase Negative (Negative) 11/23/23 11/23/23 11/23/23 Range/Units 12:51 12:51 13:54 WBC (3.8-10.6) k/uL RBC (4.30-5.90) m/uL Hgb (13.0-17.5) gm/dL Hct (39.0-53.0) % MCV (80.0-100.0) fL MCH (25.0-35.0) pg MCHC (31.0-37.0) g/dL RDW (11.5-15.5) % Plt Count (150-450) k/uL MPV Neutrophils % % Lymphocytes % % Monocytes % % Eosinophils % % Basophils % % Neutrophils # (1.3-7.7) k/uL Lymphocytes # (1.0-4.8) k/uL Monocytes # (0-1.0) k/uL Eosinophils # (0-0.7) k/uL Basophils # (0-0.2) k/uL Sodium (137-145) mmol/L Potassium (3.5-5.1) mmol/L Chloride (98-107) mmol/L Carbon Dioxide (22-30) mmol/L Anion Gap mmol/L BUN (9-20) mg/dL Creatinine (0.66-1.25) mg/dL Est GFR (CKD-EPI)AfAm (>60 ml/min/1.73 sqM) Est GFR (CKD-EPI)NonAf (>60 ml/min/1.73 sqM) Glucose (74-99) mg/dL Lactic Ac Sepsis Rflx Y Plasma Lactic Acid Carlos Manuel 2.2 H* (0.7-2.0) mmol/L Calcium (8.4-10.2) mg/dL Total Bilirubin (0.2-1.3) mg/dL AST (17-59) U/L ALT (4-49) U/L Alkaline Phosphatase (38-126) U/L Troponin I 0.012 (0.000-0.034) ng/mL Total Protein (6.3-8.2) g/dL Albumin (3.5-5.0) g/dL Lipase (23-300) U/L Urine Color Urine Appearance (Clear) Urine pH (5.0-8.0) Ur Specific [place] (1.001-1.035) Urine Protein (Negative) Urine Glucose (UA) (Negative) Urine Ketones (Negative) Urine Blood (Negative) Urine Nitrite (Negative) Urine Bilirubin (Negative) Urine Urobilinogen (<2.0) mg/dL Ur Leukocyte Esterase (Negative) Disposition Clinical Impression: Epigastric pain Disposition: HOME SELF-CARE Condition: Stable Instructions (If sedation given, give patient instructions): Abdominal Pain (ED) Additional Instructions: Your lipase level and CT were normal. Please follow-up with your primary care doctor for reevaluation of your symptoms Is patient prescribed a controlled substance at d/c from ED?: No Referrals: Tristin Lyon MD [Primary Care Provider] - 1-2 days Time of Disposition: 15:37
[2023-11-23] MEDS: METOPROLOL TARTRATE 50 MG TAB PO STA (13:38)
[2023-11-23 13:41] LABS: ALT 20 U/L (4-49); AST 28 U/L (17-59); African American GFR (CKD) >90 (>60 ml/min/1.73 sqM); Albumin 3.9 g/dL (3.5-5.0); Alkaline Phosphatase 127 U/L (38-126); Anion Gap 8 mmol/L; Blood Urea Nitrogen 14 mg/dL (9-20); Carbon Dioxide 27 mmol/L (22-30); Chloride 99 mmol/L (98-107); Glucose 105 mg/dL (74-99); Lipase 306 U/L (23-300); Non-African American GFR(CKD) 89 (>60 ml/min/1.73 sqM); Potassium 3.7 mmol/L (3.5-5.1); Sodium 134 mmol/L (137-145); Total Bilirubin 0.5 mg/dL (0.2-1.3); Total Protein 7.1 g/dL (6.3-8.2)
--- NOTE | 2023-11-23 15:28 | CT ---
EXAMINATION TYPE: CT abdomen pelvis w con DATE OF EXAM: 11/23/2023 COMPARISON: None INDICATION: ABDOMINAL PAIN AND BLOATING DLP: 1841.6 mGycm, Automated exposure control for dose reduction was used. CONTRAST: 100ml mL of Isovue 300. Study performed without Oral Contrast TECHNIQUE: Axial images were obtained from above the diaphragm to the pubic rami in the axial plane a t 5 mm thick sections. Reconstructed images are reviewed on the computer in the coronal plane. FINDINGS: Limited CT sections are obtained the lung bases. Mild subsegmental atelectasis at the lung bases.. CT ABDOMEN: Liver: Normal Spleen: Normal Pancreas: Normal Adrenal glands: The adrenal glands are normal. Gallbladder: Normal Kidneys: No masses are evident. No hydronephrosis is present. No cysts are present. Delayed images were obtained through the kidneys, which remain unremarkable. Aorta: Vascular calcification is within the aorta. Inferior vena cava: Normal. CT PELVIS: Loops of bowel within the abdomen and pelvis are normal. This study is without oral contrast limi ting bowel evaluation. No suspicious dilated bowel are evident. No significant fecal retention is nader dent. Appendix: Not visualized. No dilated tubular structure or inflammatory changes evident. Urinary bladder: Normal. Genitourinary structures: Prostate is somewhat prominent with some calcification present. Osseous structures: No suspicious lytic or sclerotic lesions. IMPRESSION: 1. No suspicious abnormality, patient's symptoms.
[2023-11-23 15:43] VITALS: BP 137/82; PULSE 78; RESP 18
== END 2023-11-23 15:59 | disposition home or self-care (01) ==
LOC: EC 11:03
DX: R10.13 Epigastric pain (principal); F10.90 Alcohol use, unspecified, uncomplicated; R00.0 Tachycardia, unspecified; Z87.19 Personal history of other diseases of the digestive system; Z88.0 Allergy status to penicillin; Z88.1 Allergy status to other antibiotic agents; Z88.8 Allergy status to other drugs, medicaments and biological substances; Z87.891 Personal history of nicotine dependence; Z90.49 Acquired absence of other specified parts of digestive tract
CPT/HCPCS: 99285; 96374; 96375; 96361; 36415; 93005; 80053; 83605; 83690; 84484; 85025; 81003; 74177; J2405; J1170; Q9967

== ENCOUNTER 2023-11-27 04:45 | Emergency (ER) | payer OTHER ==
--- NOTE | 2023-11-27 04:58 | ED ---
General Adult HPI - General Chief complaint: Shortness of Breath Stated complaint: Difficulty breathing Time Seen by Provider: 11/27/23 04:50 Source: patient Mode of arrival: EMS Limitations: no limitations - History of Present Illness Initial comments: Dictation was produced using [employer] dictation software. please excuse any grammatical, word or spelling errors. Chief Complaint: 63-year-old male with past medical history of COPD and A-fib status post ablation presents to the ER for shortness of breath History of Present Illness: Patient 63-year-old male brought in from home by EMS. Patient woke up this morning feeling dyspneic. He was unsure if it was his COPD or asthma. En route to the emergency department was given a breathing treatment by EMS which improved the symptoms. He is status post ablation to treat atrial fibrillation. He does take anticoagulation medications. Denies any chest pain. States that his symptoms feel significantly improved with breathing treatment. The ROS documented in this emergency department record has been reviewed and confirmed by me. Those systems with pertinent positive or negative responses daniels ve been documented in the HPI. All other systems are other negative and/or noncontributory. - Related Data Home Medications Medication Instructions Recorded Confirmed Montelukast [Singulair] 10 mg PO DAILY@1200 01/12/18 11/23/23 Tamsulosin [Flomax] 0.4 mg PO DAILY@1200 11/08/21 11/23/23 rOPINIRole HCL [Requip] 4 mg PO HS 11/08/21 11/23/23 Cyclobenzaprine [Flexeril] 10 mg PO TID@0600,1200,1800 11/24/21 11/23/23 Budesonide-Formot 160-4.5 Mcg 2 puff INHALATION RT-BID@0600,1800 04/11/22 11/23/23 [Symbicort 160-4.5 Mcg Inhaler] Empagliflozin [Jardiance] 10 mg PO DAILY@1200 04/11/22 11/23/23 Apixaban [Eliquis] 5 mg PO BID@0600,1800 05/13/22 11/23/23 Atorvastatin [Lipitor] 20 mg PO HS@1800 02/28/23 11/23/23 Tiotropium 2.5 Mcg/Puff [Spiriva 2 puff INHALATION RT-DAILY 02/28/23 11/23/23 Respimat 2.5 Mcg] Omeprazole [PriLOSEC] 20 mg PO BID@0600,1800 06/27/23 11/23/23 ARIPiprazole [Abilify] 5 mg PO DAILY@0600 07/27/23 11/23/23 Latanoprost [Latanoprost 0.005%] 1 drop BOTH EYES HS 07/27/23 11/23/23 oxyCODONE-APAP 10-325MG [Percocet 1 tab PO BID 09/19/23 11/23/23 10-325 mg] Ferrous Sulfate [Feosol] 325 mg PO DAILY@1200 11/23/23 11/23/23 Folic Acid 1 mg PO DAILY@1200 11/23/23 11/23/23 Furosemide [Lasix] 40 mg PO BID@0600,1800 11/23/23 11/23/23 Loratadine [Claritin] 5 mg PO BID@0600,1800 11/23/23 11/23/23 Metoprolol Tartrate [Lopressor] 50 mg PO BID@0600,1800 11/23/23 11/23/23 allopurinoL [Zyloprim] 300 mg PO DAILY@0600 11/23/23 11/23/23 Allergies Allergy/AdvReac Type Severity Reaction Status Date / Time amoxicillin trihydrate AdvReac Rapid Verified 11/27/23 04:50 [From Augmentin] Heart Rate potassium clavulanate AdvReac FELT LIKE Verified 11/27/23 04:50 [From Augmentin] HE WAS GOING TO PASS OUT FAST HEARTBEAT" pregabalin [From Lyrica] AdvReac Leg Verified 11/27/23 04:50 swelling venlafaxine [From Effexor] AdvReac Confusion Verified 11/27/23 04:50 Review of Systems ROS Statement: Those systems with pertinent positive or pertinent negative responses have been documented in the HPI. ROS Other: All systems not noted in ROS Statement are negative. Past Medical History Past Medical History: Atrial Fibrillation, Coronary Artery Disease (CAD), Heart Failure, COPD, Diabetes Mellitus, Eye Disorder, Fibromyalgia, Hypertension, Myocardial Infarction (PR), Musculoskeletal Disorder, Osteoarthritis (OA), Prostate Disorder, Vascular Disorder Additional Past Medical History / Comment(s): Chronic cough, hx pancreatitis, bilateral glaucoma, neuropathy bilateral feet, poor circulation to legs, varicose veins, RLS, hx BPH, colitis, gastritis, Alvarenga's esophagus, hx Katja ngles in 2013 with joint pain since, chronic low back pain, DDD. wound to right leg, scabies 06/2023 Last Myocardial Infarction Date:: 09/02/16 History of Any Multi-Drug Resistant Organisms: None Reported Past Surgical History: Appendectomy, Cardiac Ablation, Heart Catheterization, Joint Replacement, Orthopedic Surgery, Prostate Surgery Additional Past Surgical History / Comment(s): Right knee arthroscopy, right knee replacement, EGD, colonoscopy, TURP, cardioversion. Past Anesthesia/Blood Transfusion Reactions: No Reported Reaction Additional Past Anesthesia/Blood Transfusion Reaction / Comment(s): No hx blood transfusion. Past Psychological History: Anxiety, Depression Smoking Status: Former smoker Past Alcohol Use History: Occasional Past Drug Use History: Cocaine - Past Family History Father Family Medical History: CVA/TIA, Hypertension Additional Family Medical History / Comment(s): Father at the age of 38yrs from HTN/CVA. He was an alcoholic. Mother Family Medical History: COPD, Diabetes Mellitus Additional Family Medical History / Comment(s): Mother of emphysema at the age of 74 yrs (2003), mom had hx of drinking and smoking. General Exam - General Exam Comments Initial Comments: PHYSICAL EXAM: General Impression: Alert and oriented x3, not in acute distress HEENT: Normocephalic atraumatic, extra-ocular movements intact, pupils equal and reactive to light bilaterally, mucous membranes moist. Cardiovascular: Heart regular rate and rhythm Chest: Able to complete full sentences, no retractions, no tachypnea Abdomen: abdomen soft, non-tender, non-distended, no organomegaly Musculoskeletal: Pulses present and equal in all extremities, no peripheral edema Motor: no focal deficits noted Neurological: CN II-XII grossly intact, no focal motor or sensory deficits noted Skin: Intact with no visualized rashes Psych: Normal affect and mood Limitations: no limitations Course Vital Signs 11/27/23 11/27/23 11/27/23 04:46 05:30 06:53 Temperature 98.2 F Pulse Rate 109 H 100 98 Respiratory 22 22 22 Rate Blood Pressure 161/94 152/92 158/92 O2 Sat by Pulse 95 95 97 Oximetry EKG Findings - EKG Comments: EKG Findings:: My EKG interpretation: Ventricular rate 105, sinus tachycardia,. 162, QRS 101, QTc 420. No OR prolongation, no QTC prolongation, no ST or T-wave changes noted. Overall, this EKG is unremarkable Medical Decision Making - Medical Decision Making Was pt. sent in by a medical professional or institution (, [facility]O, AVIONICS SYSTEMS INTEGRATION SPECIALIST, urgent care, hospital, or halfway...) When possible be specific @ -No Did you speak to anyone other than the patient for history (EMS, parent, family, police, friend...)? What history was obtained from this source @ -No Did you review nursing and triage notes (agree or disagree)? Why? @ -I reviewed and agree with nursing and triage notes Were old charts reviewed (outside hosp., previous admission, EMS record, old EKG, old radiological studies, urgent care reports/EKG's, halfway records)? Report findings @ -No old charts were reviewed Differential Diagnosis (chest pain, altered mental status, abdominal pain women, abdominal pain men, vaginal bleeding, musculoskeletal, weakness, fever, dyspnea, syncope, headache, dizziness, GI bleed, back pain, seizure, CVA, palpatations, mental health)? @ -Differential Dyspnea: Coronary syndrome, arrhythmia, tamponade, asthma, COPD, pulmonary embolism, pneumonia, pneumothorax, pulmonary effusion, anaphylaxis, diabetic ketoacidosis, flailed chest, pulmonary contusion, diaphragmatic rupture, anemia, neuromuscular, this is not meant to be an all-inclusive list. EKG interpreted by me (3pts min.). @ -See above X-rays interpreted by me (1pt min.). @ -X-ray of the chest shows mild pulmonary congestion CT interpreted by me (1pt min.). @ -None done U/S interpreted by me (1pt. min.). @ -None done What testing was considered but not performed or refused? (CT, X-rays, U/S, labs)? Why? @ -None What meds were considered but not given or refused? Why? @ -None Did you discuss the management of the patient with other professionals (professionals i.e. ROMULO Alcantar, AVIONICS SYSTEMS INTEGRATION SPECIALIST, lab, RT, psych nurse, clinical social work aide, supervisor research kennel, teacher, parcel post officer, disease case manager rn)? Give summary @ -No Was smoking cessation discussed for >3mins.? @ -No Was critical care preformed (if so, how long)? @ -No Were there social determinants of health that impacted care today? How? (Homelessness, low income, unemployed, alcoholism, drug addiction, transportation, low edu. Level, literacy, decrease access to med. care, care home, rehab)? @ -No Was there de-escalation of care discussed even if they declined (Discuss DNR or withdrawal of care, Hospice)? DNR status @ -No What co-morbidities impacted this encounter? (DM, HTN, Smoking, COPD, CAD, Cancer, CVA, ARF, Chemo, Hep., AIDS, mental health diagnosis, sleep apnea, mo rbid obesity)? @ -None Was patient admitted / discharged? Hospital course, mention meds given and r oute, prescriptions, significant lab abnormalities, going to OR and other pertinent info. @ -63-year-old male presents to the emergency department for dyspnea. Patient received breathing treatment by prehospital providers. States that the breathing treatment improved him significantly. He does have a history of COPD. He is otherwise other comorbidities. EKG is unremarkable. Vital signs are within acceptable limits. Laboratory evaluation is within acceptable limits. Nhkoz-oa-ipad bedside ultrasound was performed showing no B-lines in the lung brown. Patient given steroids. Patient reevaluated at 6:20 AM stable medical edition he is resting comfortably no acute distress.Chest x-ray shows mild heart failure. Patient given 40 mg IV Lasix. Patient stable for discharge. Undiagnosed new problem with uncertain prognosis? @ -No Drug Therapy requiring intensive monitoring for toxicity (Heparin, Nitro, Insulin, Cardizem)? @ -No Were any procedures done? @ -No Diagnosis/symptom? Acute, or Chronic, or Acute on Chronic? Uncomplicated (without systemic symptoms) or Complicated (systemic symptoms)? @ -Mild COPD exacerbation Side effects of treatment? @ -No Exacerbation, Progression, or Severe Exacerbation? @ -No Poses a threat to life or bodily function? How? (Chest pain, USA, PR, pneumonia, PE, COPD, DKA, ARF, appy, cholecystitis, CVA, Diverticulitis, Homicidal, Suicidal, threat to staff... and all critical care pts) @ -No - Lab Data Result diagrams: 11/27/23 04:57 11/27/23 04:57 Lab Results 11/27/23 11/27/23 Range/Units 04:57 04:57 WBC 12.1 H (3.8-10.6) k/uL RBC 4.11 L (4.30-5.90) m/uL Hgb 12.9 L (13.0-17.5) gm/dL Hct 38.6 L (39.0-53.0) % MCV 93.9 (80.0-100.0) fL MCH 31.5 (25.0-35.0) pg MCHC 33.5 (31.0-37.0) g/dL RDW 14.8 (11.5-15.5) % Plt Count 258 (150-450) k/uL MPV 8.1 Neutrophils % 87 % Lymphocytes % 7 % Monocytes % 4 % Eosinophils % 1 % Basophils % 0 % Neutrophils # 10.5 H (1.3-7.7) k/uL Lymphocytes # 0.9 L (1.0-4.8) k/uL Monocytes # 0.5 (0-1.0) k/uL Eosinophils # 0.2 (0-0.7) k/uL Basophils # 0.0 (0-0.2) k/uL Sodium 130 L (137-145) mmol/L Potassium 5.0 (3.5-5.1) mmol/L Chloride 103 (98-107) mmol/L Carbon Dioxide 23 (22-30) mmol/L Anion Gap 4 mmol/L BUN 11 (9-20) mg/dL Creatinine 0.76 (0.66-1.25) mg/dL Est GFR (CKD-EPI)AfAm >90 (>60 ml/min/1.73 sqM) Est GFR (CKD-EPI)NonAf >90 (>60 ml/min/1.73 sqM) Glucose 119 H (74-99) mg/dL Calcium 8.2 L (8.4-10.2) mg/dL NT-Pro-B Natriuret Pep 3550 pg/mL Disposition Clinical Impression: COPD exacerbation Disposition: HOME SELF-CARE Condition: Fair Instructions (If sedation given, give patient instructions): COPD (Chronic Obstructive Pulmonary Disease) (ED) Is patient prescribed a controlled substance at d/c from ED?: No Referrals: Tristin Lyon MD [Primary Care Provider] - 1-2 days Time of Disposition: 06:22
[2023-11-27 05:02] VITALS: RESP 22; TEMP 98.2
[2023-11-27] MEDS: DEXAMETHASONE SOD PHOSPHATE 10 MG/ML 1 ML VIAL IV STA (05:07)
[2023-11-27 05:20] LABS: Basophils % (A) 0 %; Eosinophils # (A) 0.2 k/uL (0-0.7); Eosinophils % (A) 1 %; HCT 38.6 % (39.0-53.0); HGB 12.9 gm/dL (13.0-17.5); Lymphocytes # (A) 0.9 k/uL (1.0-4.8); Lymphocytes % (A) 7 %; MCH 31.5 pg (25.0-35.0); MCHC 33.5 g/dL (31.0-37.0); MCV 93.9 fL (80.0-100.0); Mean Platelet Volume 8.1; Monocytes # (A) 0.5 k/uL (0-1.0); Monocytes % (A) 4 %; Neutrophils # (A) 10.5 k/uL (1.3-7.7); Neutrophils % (A) 87 %; Platelet Count 258 k/uL (150-450); RBC 4.11 m/uL (4.30-5.90); RDW 14.8 % (11.5-15.5); WBC 12.1 k/uL (3.8-10.6)
[2023-11-27 05:27] LABS: African American GFR (CKD) >90 (>60 ml/min/1.73 sqM); Anion Gap 4 mmol/L; Blood Urea Nitrogen 11 mg/dL (9-20); Calcium 8.2 mg/dL (8.4-10.2); Carbon Dioxide 23 mmol/L (22-30); Chloride 103 mmol/L (98-107); Glucose 119 mg/dL (74-99); Non-African American GFR(CKD) >90 (>60 ml/min/1.73 sqM); Sodium 130 mmol/L (137-145)
[2023-11-27 05:35] LABS: NT-Pro-B-Type Natriuretic Pept 3550 pg/mL
[2023-11-27] MEDS: FUROSEMIDE 10 MG/ML 4 ML VIAL IV STA (06:56)
[2023-11-27 06:59] VITALS: BP 158/92; PULSE 98
--- NOTE | 2023-11-27 07:18 | XR ---
EXAMINATION TYPE: XR chest 2V DATE OF EXAM: 11/27/2023 COMPARISON: 624 INDICATION: Dyspnea TECHNIQUE: Frontal and lateral views of the chest are obtained. FINDINGS: The heart size is normal The pulmonary vasculature is normal. Scattered mild infiltrates at the bilateral lung bases. Correlate for atelectasis. Consider atypical pneumonia. . IMPRESSION: 1. Mild scattered bilateral lower lobe infiltrates. Correlate for atelectasis or atypical pneumonia
== END 2023-11-27 07:33 | disposition home or self-care (01) ==
LOC: EC 04:45
DX: J44.1 Chronic obstructive pulmonary disease with (acute) exacerbation (principal); R00.0 Tachycardia, unspecified; Z87.891 Personal history of nicotine dependence; Z79.51 Long term (current) use of inhaled steroids
CPT/HCPCS: 36415; 93005; 83880; 80048; 85025; 71046; 99285; 96374; 96375; J1100; J1940

== ENCOUNTER → 2023-11-29 | Outpatient (CLI) | payer OTHER ==
--- NOTE | 2023-11-29 21:51 | US ---
EXAMINATION TYPE: US arterial LE single level DATE OF EXAM: 11/29/2023 9:09 AM CLINICAL INDICATION: Male, 63 years old with history of L97.912 NON PRESSURE CHR ULCER RT LOWER LEG; Multiple sores bilateral lower extremities History of: Smoker: Current Smoker Hypertension: Takes medication Diabetic: Yes Hyperlipidemia: Yes TIA/CVA: No Previous Vascular Surgery: No CAD: Yes LA: No Vascular Ulcers: Bilateral Claudication: No Gangrene: Yes Doppler Waveforms: Bilaterally: Triphasic within the trifurcation vessels. Monophasic within the digital arteries. Right Brachial Pressure: 172 Left Brachial Pressure: 174 Ankle-Brachial Indices: Right: 1.2 Left: 1.2 (Vessel hardening > 1.4; Normal 0.9 - 1.4, Moderate 0.7 - 0.9, Severe 0.5-0.7) Toe Brachial Indices: Right: 0.68 Left: 0.72 IMPRESSION: 1. Normal bilateral lower extremity arterial ultrasound
== END | disposition home or self-care (01) ==
LOC: RADUSWWP 08:39
PROVIDERS: ATTEND Family Medicine
DX: L97.912 Non-pressure chronic ulcer of unspecified part of right lower leg with fat layer exposed (principal); L97.512 Non-pressure chronic ulcer of other part of right foot with fat layer exposed; E08.621 Diabetes mellitus due to underlying condition with foot ulcer; E08.622 Diabetes mellitus due to underlying condition with other skin ulcer; L03.115 Cellulitis of right lower limb
CPT/HCPCS: 93922

== ENCOUNTER → 2023-11-30 | Outpatient (CLI) | payer OTHER ==
--- NOTE | 2023-12-01 17:42 | MR ---
EXAMINATION TYPE: MR brain wo con DATE OF EXAM: 11/30/2023 COMPARISON: 12/28/2015 HISTORY: Left side numbness CONTRAST: Performed utilizing 0 mL intravenous Gadavist gadolinium contrast. TECHNIQUE: Multiplanar, multiecho imaging on a 3.0 Tere magnet is performed through the brain. Stud y is performed within 24 hours of arrival to the hospital. The craniovertebral junction is prominent. The pituitary is normal. Diffusion-weighted imaging is performed. No abnormal hyperintensity is present to suggest an acute i ntracranial infarct or acute ischemic change. There are scattered punctate areas of hyperintensity on T2 and Inversion Recovery weighted sequences which are non-specific but can be related to microvascular ischemic changes. Ventricles and sulci are appropriate for the patient age. IMPRESSION: 1. Chronic appearing scattered periventricular and deep white matter hyperintensities, likely on the basis of chronic white matter ischemic change. Differential diagnosis would include multiple sclerosi s, vasculitis or migraine headaches.
== END | disposition home or self-care (01) ==
LOC: RADMRIMAIN 16:52
PROVIDERS: ATTEND Pediatrics
DX: G93.89 Other specified disorders of brain (principal); H92.02 Otalgia, left ear; R20.2 Paresthesia of skin; R20.0 Anesthesia of skin
CPT/HCPCS: 70551

== ENCOUNTER → 2023-12-18 | Outpatient (CLI) | payer OTHER ==
[2023-12-18 17:28] LABS: Basophils # (A) 0.07 X 10*3/uL (0.00-0.10); Basophils % (A) 0.8 %; Eosinophils # (A) 0.22 X 10*3/uL (0.04-0.35); Eosinophils % (A) 2.5 %; HCT 42.2 % (39.6-50.0); HGB 13.5 g/dL (13.0-17.0); Lymphocytes % (A) 13.8 %; MCH 30.5 pg (27.0-32.0); MCV 95.3 FL (80.0-97.0); Mean Platelet Volume 9.1 FL (9.5-12.2); Monocytes # (A) 0.51 X 10*3/uL (0.20-1.00); Monocytes % (A) 5.9 %; NRBC Per 100 WBC 0 X 10*3/uL (0.00-0.01); Neutrophils # (A) 6.65 X 10*3/uL (1.80-7.70); Neutrophils % (A) 76.3 %; Platelet Count 240 X 10*3/uL (140-440); RBC 4.43 X 10*6/uL (4.40-5.60); RDW 14.1 % (11.5-14.5); WBC 8.71 X 10*3/uL (4.50-10.00)
[2023-12-18 17:44] LABS: BUN/Creat Ratio 12.27 Ratio (12.00-20.00); Blood Urea Nitrogen 13.5 mg/dL (9.0-27.0); Carbon Dioxide 24.7 mmol/L (21.6-31.8); Chloride 96 mmol/L (96-109); Chol/HDL Ratio 3.54 Ratio; Glucose 168 mg/dL (70-110); LDL Cholesterol,Calculated 39.9 mg/dL (0.0-131.0); Magnesium 1.7 mg/dL (1.5-2.4); Phosphorus 3.5 mg/dL (2.4-5.1); Potassium 4.1 mmol/L (3.5-5.5); Sodium 136 mmol/L (135-145); Uric Acid 5.1 mg/dL (3.7-8.7)
[2023-12-18 17:45] LABS: % Iron Saturation 23.89 (15.00-50.00); ALT 22 U/L (10-49); AST 25 U/L (14-35); Albumin 3.8 g/dL (3.8-4.9); Albumin/Globulin Ratio 1.46 Ratio (1.60-3.17); Alkaline Phosphatase 113 U/L (41-126); Calcium 9.3 mg/dL (8.7-10.3); Globulin 2.6 g/dL (1.6-3.3); Iron 81 UG/DL (65-175); Total Bilirubin 0.4 mg/dL (0.3-1.2); Total Iron Binding Capacity 339 UG/DL (228-460); Total Protein 6.4 g/dL (6.2-8.2)
== END | disposition home or self-care (01) ==
LOC: LABWHC1 08:58
PROVIDERS: ATTEND Pediatrics
DX: I12.9 Hypertensive chronic kidney disease with stage 1 through stage 4 chronic kidney disease, or unspecified chronic kidney disease (principal); F32.9 Major depressive disorder, single episode, unspecified; E78.5 Hyperlipidemia, unspecified; E55.9 Vitamin D deficiency, unspecified; N25.81 Secondary hyperparathyroidism of renal origin; M10.9 Gout, unspecified; N39.0 Urinary tract infection, site not specified; N18.2 Chronic kidney disease, stage 2 (mild); E11.22 Type 2 diabetes mellitus with diabetic chronic kidney disease; D63.1 Anemia in chronic kidney disease; R80.9 Proteinuria, unspecified; R60.9 Edema, unspecified
CPT/HCPCS: 36415; 80053; 80061; 82306; 82728; 83036; 83540; 83550; 83735; 83970; 84100; 84443; 84550; 85025

== ENCOUNTER → 2023-12-25 | Outpatient (CLI) | payer OTHER ==
--- NOTE | 2023-12-25 10:22 | CTL ---
EXAMINATION TYPE: CT Low Dose Lung DATE OF EXAM ORDERED: 12/25/2023 HISTORY: . Low Dose CT Lung Screening CT DLP: 144.[address] CTDI: 3.8 mGy IV CONTRAST USED: None. SCREENING VISIT: First visit COMPARISON: None. TECHNIQUE: Low dose computed tomography scan was performed through the chest at 1 millimeter thick se ctions and reconstructed images in the coronal plane at [address] DIAGNOSTIC QUALITY: Satisfactory FINDINGS: LUNG NODULES: Not presentLeft lung: no nodules identified.Right lung: no nodules identified. LUNGS: COPD: Severity: Mild Fibrosis: Severity:None Lymph nodes: None Other findings: None RIGHT PLEURAL SPACE: Effusion: None Calcification: None Thickening: None Pneumothorax: None LEFT PLEURAL SPACE: Effusion: None Calcification: None Thickening: None Pneumothorax: None HEART: Heart Size: Mildly enlarged Coronary calcification: Moderate Pericardial effusion: None OTHER FINDINGS: Upper abdomen: No significant abnormality Bony thorax: Degenerative changes Supraclavicular region: No significant abnormalityOther: No significant abnormalityI IMPRESSION: No pulmonary nodularity greater than [address] CHEST RECOMMENDATION: Follow-up screening in one year CT LUNG RAD: LUNG RAD CATEGORY 1 negative
== END | disposition home or self-care (01) ==
LOC: RADCTMAIN 09:32
PROVIDERS: ATTEND Internal Medicine Critical Care Medicine
DX: Z12.2 Encounter for screening for malignant neoplasm of respiratory organs (principal); F17.210 Nicotine dependence, cigarettes, uncomplicated
CPT/HCPCS: 71271

== ENCOUNTER 2024-01-13 09:37 | Emergency (ER) | payer OTHER ==
[2024-01-13 10:07] VITALS: PULSE 60; TEMP 98
--- NOTE | 2024-01-13 10:08 | ED ---
Back Pain HPI - General Chief Complaint: Back Pain/Injury Stated Complaint: sciatic nerve pain Time Seen by Provider: 01/13/24 10:04 Source: patient, RN notes reviewed Limitations: no limitations - History of Present Illness Initial Comments: 63 year old male presenting to the ER with a chief complaint of sciatic nerve pain. Patient reports for the past couple of months he has been having sciatic nerve pain. He has tried steroids, ibuprofen, Tylenol, Flexeril and stretching without relief. He denies any new traumas or injuries. Denies any saddle paresthesias, bowel or bladder incontinence, fevers, chills, leg weakness. - Related Data Home Medications Medication Instructions Recorded Confirmed Montelukast [Singulair] 10 mg PO DAILY@1200 01/12/18 11/23/23 Tamsulosin [Flomax] 0.4 mg PO DAILY@1200 11/08/21 11/23/23 rOPINIRole HCL [Requip] 4 mg PO HS 11/08/21 11/23/23 Cyclobenzaprine [Flexeril] 10 mg PO TID@0600,1200,1800 11/24/21 11/23/23 Budesonide-Formot 160-4.5 Mcg 2 puff INHALATION RT-BID@0600,1800 04/11/22 11/23/23 [Symbicort 160-4.5 Mcg Inhaler] Empagliflozin [Jardiance] 10 mg PO DAILY@1200 04/11/22 11/23/23 Apixaban [Eliquis] 5 mg PO BID@0600,1800 05/13/22 11/23/23 Atorvastatin [Lipitor] 20 mg PO HS@1800 02/28/23 11/23/23 Tiotropium 2.5 Mcg/Puff [Spiriva 2 puff INHALATION RT-DAILY 02/28/23 11/23/23 Respimat 2.5 Mcg] Omeprazole [PriLOSEC] 20 mg PO BID@0600,1800 06/27/23 11/23/23 ARIPiprazole [Abilify] 5 mg PO DAILY@0600 07/27/23 11/23/23 Latanoprost [Latanoprost 0.005%] 1 drop BOTH EYES HS 07/27/23 11/23/23 oxyCODONE-APAP 10-325MG [Percocet 1 tab PO BID 09/19/23 11/23/23 10-325 mg] Ferrous Sulfate [Feosol] 325 mg PO DAILY@1200 11/23/23 11/23/23 Folic Acid 1 mg PO DAILY@1200 11/23/23 11/23/23 Furosemide [Lasix] 40 mg PO BID@0600,1800 11/23/23 11/23/23 Loratadine [Claritin] 5 mg PO BID@0600,1800 11/23/23 11/23/23 Metoprolol Tartrate [Lopressor] 50 mg PO BID@0600,1800 11/23/23 11/23/23 allopurinoL [Zyloprim] 300 mg PO DAILY@0600 11/23/23 11/23/23 Previous Rx's Medication Instructions Recorded Lidocaine 5% Patch [Lidoderm] 1 patch TOPICAL DAILY #30 patch 01/13/24 Allergies Allergy/AdvReac Type Severity Reaction Status Date / Time amoxicillin trihydrate AdvReac Rapid Verified 01/13/24 09:50 [From Augmentin] Heart Rate potassium clavulanate AdvReac FELT LIKE Verified 01/13/24 09:50 [From Augmentin] HE WAS GOING TO PASS OUT FAST HEARTBEAT" pregabalin [From Lyrica] AdvReac Leg Verified 01/13/24 09:50 swelling venlafaxine [From Effexor] AdvReac Confusion Verified 01/13/24 09:50 Review of Systems ROS Statement: Those systems with pertinent positive or pertinent negative responses have been documented in the HPI. ROS Other: All systems not noted in ROS Statement are negative. Past Medical History Past Medical History: Atrial Fibrillation, Coronary Artery Disease (CAD), Heart Failure, COPD, Diabetes Mellitus, Eye Disorder, Fibromyalgia, Hypertension, Myocardial Infarction (MT), Musculoskeletal Disorder, Osteoarthritis (OA), Prostate Disorder, Vascular Disorder Additional Past Medical History / Comment(s): Chronic cough, hx pancreatitis, bilateral glaucoma, neuropathy bilateral feet, poor circulation to legs, varicose veins, RLS, hx BPH, colitis, gastritis, Alvarenga's esophagus, hx Shingles in 2012 with joint pain since, chronic low back pain, DDD. wound to right leg, scabies 06/2023 Last Myocardial Infarction Date:: 09/02/16 History of Any Multi-Drug Resistant Organisms: None Reported Past Surgical History: Appendectomy, Cardiac Ablation, Heart Catheterization, Joint Replacement, Orthopedic Surgery, Prostate Surgery Additional Past Surgical History / Comment(s): Right knee arthroscopy, right knee replacement, EGD, colonoscopy, TURP, cardioversion. Past Anesthesia/Blood Transfusion Reactions: No Reported Reaction Additional Past Anesthesia/Blood Transfusion Reaction / Comment(s): No hx blood transfusion. Past Psychological History: Anxiety, Depression Smoking Status: Former smoker Past Alcohol Use History: Occasional Past Drug Use History: Cocaine - Past Family History Father Family Medical History: CVA/TIA, Hypertension Additional Family Medical History / Comment(s): Father at the age of 38yrs from HTN/CVA. He was an alcoholic. Mother Family Medical History: COPD, Diabetes Mellitus Additional Family Medical History / Comment(s): Mother of emphysema at the age of 74 yrs (2003), mom had hx of drinking and smoking. General Exam Limitations: no limitations General appearance: alert, in no apparent distress Respiratory exam: Present: normal lung sounds bilaterally. Absent: respiratory distress, wheezes, rales, rhonchi, stridor Cardiovascular Exam: Present: regular rate, normal rhythm, normal heart sounds. Absent: systolic murmur, diastolic murmur, rubs, gallop, clicks Extremities exam: Present: normal inspection, full ROM, tenderness (right sciatic nerve), normal capillary refill. Absent: pedal edema, joint swelling, calf tenderness Back exam: Present: normal inspection Skin exam: Present: warm, dry, intact, normal color. Absent: rash Course Vital Signs 01/13/24 01/13/24 09:44 11:31 Temperature 98.0 F Pulse Rate 60 60 Respiratory 20 18 Rate Blood Pressure 149/84 134/85 O2 Sat by Pulse 98 98 Oximetry Medical Decision Making - Medical Decision Making Was pt. sent in by a medical professional or institution (, PA, TOW TRUCK DRIVER, urgent care, hospital, or half-way...) When possible be specific @ -No Did you speak to anyone other than the patient for history (EMS, parent, family, police, friend...)? What history was obtained from this source @ -No Did you review nursing and triage notes (agree or disagree)? Why? @ -I reviewed and agree with nursing and triage notes Were old charts reviewed (outside hosp., previous admission, EMS record, old EKG, old radiological studies, urgent care reports/EKG's, half-way records)? Report findings @ -No old charts were reviewed Differential Diagnosis (chest pain, altered mental status, abdominal pain women, abdominal pain men, vaginal bleeding, weakness, fever, dyspnea, syncope, headache, dizziness, GI bleed, back pain, seizure, CVA, palpatations, mental health, musculoskeletal)? @ -Differential Musculoskeletal: Muscular strain, contusion, ligament sprain, fracture, arthritis, septic arthritis, bursitis, cellulitis, muscle spasm, nerve compression, DVT, arterial occlusion, herpes zoster, electrolyte abnormality, tumor.... This is not meant to be in all inclusive list EKG interpreted by me (3pts min.). @ -None X-rays interpreted by me (1pt min.). @ -None done CT interpreted by me (1pt min.). @ -None done U/S interpreted by me (1pt. min.). @ -None done What testing was considered but not performed or refused? (CT, X-rays, U/S, labs)? Why? @ -X-rays considered but not performed as no new injuries were reported. Patient also refused. What meds were considered but not given or refused? Why? @ -Patient refused steroids or muscle relaxers. Did you discuss the management of the patient with other professionals (professionals i.e. , PA, TOW TRUCK DRIVER, lab, RT, psych nurse, hospice social worker, washer operator, teacher, field health officer, case mgr)? Give summary @ -No Was smoking cessation discussed for >3mins.? @ -No Was critical care preformed (if so, how long)? @ -No Were there social determinants of health that impacted care today? How? (Homelessness, low income, unemployed, alcoholism, drug addiction, transportation, low edu. Level, literacy, decrease access to med. care, fpc, rehab)? @ -No Was there de-escalation of care discussed even if they declined (Discuss DNR or withdrawal of care, Hospice)? DNR status @ -No What co-morbidities impacted this encounter? (DM, HTN, Smoking, COPD, CAD, Cancer, CVA, ARF, Chemo, Hep., AIDS, mental health diagnosis, sleep apnea, morbi d obesity)? @ -None Was patient admitted / discharged? Hospital course, mention meds given and route, prescriptions, significant lab abnormalities, going to OR and other pertinent info. @ -Discharge. 63 year old male presenting to the ER with a cheif complaint of sciatic pain. History and physical exam completed. Vitals stable . Patient in no signs of acute distress and nontoxic appearing. Bilateral LE neurovascularily intact. No focal bony tenderness. No rash, erythema or contusion present on skin. No red flag back pain symptoms indicative of cauda equina syndrome. Patient received by mouth Tylenol and lidocaine patch was placed in the ER. Upon reevaluation, patient ambulated without difficulty to the bathroom. I advised patient to follow-up with orthopedics, referral given. Lidocaine patches prescribed. Return parameters discussed. Patient discharged stable condition. Patient verbally expressed understanding and agreement with care plan. Case discussed with ED attending, Dr. Merino. Undiagnosed new problem with uncertain prognosis? @ -No Drug Therapy requiring intensive monitoring for toxicity (Heparin, Nitro, Insulin, Cardizem)? @ -No Were any procedures done? @ -No Diagnosis/symptom? @ -Sciatica Acute, or Chronic, or Acute on Chronic? @ -Chronic Uncomplicated (without systemic symptoms) or Complicated (systemic symptoms)? @ -Uncomplicated Side effects of treatment? @ -No Exacerbation, Progression, or Severe Exacerbation? @ -No Poses a threat to life or bodily function? How? (Chest pain, USA, MT, pneumonia, PE, COPD, DKA, ARF, appy, cholecystitis, CVA, Diverticulitis, Homicidal, Suicidal, threat to staff... and all critical care pts) @ -No Disposition Clinical Impression: Sciatica Disposition: HOME SELF-CARE Condition: Stable Instructions (If sedation given, give patient instructions): Sciatica (ED), Piriformis Syndrome (ED) Additional Instructions: Please follow-up with orthopedics, referral given. Continue with Tylenol and Motrin for pain control. Return to the ER for any new or worsening concerns. Prescriptions: Lidocaine 5% Patch [Lidoderm] 1 patch TOPICAL DAILY #30 patch Is patient prescribed a controlled substance at d/c from ED?: No Referrals: Albert Chavez MD [Primary Care Provider] - 1-2 days Danish Corley MD [STAFF PHYSICIAN] - 1-2 days Time of Disposition: 11:17
[2024-01-13] MEDS: ACETAMINOPHEN TAB 325 MG TAB PO STA (10:17)
[2024-01-13] MEDS: LIDOCAINE 4% PATCH TOPICAL ONE (10:17)
[2024-01-13 11:45] VITALS: BP 134/85; RESP 18
== END 2024-01-13 11:36 | disposition home or self-care (01) ==
LOC: EC 09:37
DX: M54.30 Sciatica, unspecified side (principal); F14.90 Cocaine use, unspecified, uncomplicated; Z88.0 Allergy status to penicillin; Z88.8 Allergy status to other drugs, medicaments and biological substances; Z87.891 Personal history of nicotine dependence
CPT/HCPCS: 99283

== ENCOUNTER 2024-01-20 05:05 | Inpatient (IN) | payer OTHER ==
[2024-01-20 05:44] LABS: Basophils # (A) 0.1 k/uL (0-0.2); Basophils % (A) 1 %; Eosinophils # (A) 0.2 k/uL (0-0.7); Eosinophils % (A) 2 %; HCT 42.3 % (39.0-53.0); HGB 13.9 gm/dL (13.0-17.5); Lymphocytes # (A) 0.7 k/uL (1.0-4.8); Lymphocytes % (A) 6 %; MCH 30.2 pg (25.0-35.0); MCHC 32.8 g/dL (31.0-37.0); MCV 92.1 fL (80.0-100.0); Mean Platelet Volume 7.1; Monocytes # (A) 0.6 k/uL (0-1.0); Monocytes % (A) 6 %; Neutrophils # (A) 8.5 k/uL (1.3-7.7); Neutrophils % (A) 84 %; Platelet Count 243 k/uL (150-450); RBC 4.59 m/uL (4.30-5.90); RDW 14.6 % (11.5-15.5); WBC 10.1 k/uL (3.8-10.6)
[2024-01-20] MEDS: CLINDAMYCIN 600 MG in DEXTROSE 5% IN WATER 50 ML IVPB STA (05:57)
[2024-01-20] MEDS: HYDROmorphone 1 MG/ML 1 ML SYRINGE IVP STA ×2 (05:58→06:41)
[2024-01-20 06:02] LABS: ALT 23 U/L (4-49); AST 22 U/L (17-59); African American GFR (CKD) >90 (>60 ml/min/1.73 sqM); Albumin 3.7 g/dL (3.5-5.0); Alkaline Phosphatase 111 U/L (38-126); Anion Gap 10 mmol/L; Blood Urea Nitrogen 14 mg/dL (9-20); C Reactive Protein 6.8 mg/dL (<1.0); Calcium 8.5 mg/dL (8.4-10.2); Carbon Dioxide 27 mmol/L (22-30); Chloride 97 mmol/L (98-107); Glucose 160 mg/dL (74-99); Non-African American GFR(CKD) >90 (>60 ml/min/1.73 sqM); Sodium 134 mmol/L (137-145); Total Bilirubin 0.8 mg/dL (0.2-1.3)
[2024-01-20] MEDS ORDERED: NALOXONE 0.4 MG/ML 1 ML VIAL IV PRN (06:04)
--- NOTE | 2024-01-20 06:04 | ED ---
General Adult HPI - General Chief complaint: Wound/Laceration Stated complaint: Burning reaction and pain on legs Time Seen by Provider: 01/20/24 05:10 Source: patient Mode of arrival: wheelchair Limitations: no limitations - History of Present Illness Initial comments: 63-year-old man presents emergency department reporting bilateral lower ex tremity pain. States he has issues with cellulitis. He was following up with wound care until a few weeks ago. States that his legs were in great condition. Last night he began having some pain in his lower extremities. He did place some Silvadene cream to the site. When he awoke this morning he had skin sloughing from his lower extremities and intense pain. Lower extremities are now weeping. He denies any fevers. Did not take anything for pain before coming to the hospital. He is not currently on any antibiotics. No other alleviating, precipitating or modifying factors - Related Data Home Medications Medication Instructions Recorded Confirmed Montelukast [Singulair] 10 mg PO DAILY@1200 01/12/18 01/20/24 Tamsulosin [Flomax] 0.4 mg PO DAILY@1200 11/08/21 01/20/24 rOPINIRole HCL [Requip] 4 mg PO HS 11/08/21 01/20/24 Cyclobenzaprine [Flexeril] 10 mg PO TID@0600,1200,1800 11/24/21 01/20/24 Budesonide-Formot 160-4.5 Mcg 2 puff INHALATION RT-BID@0600,1800 04/11/22 01/20/24 [Symbicort 160-4.5 Mcg Inhaler] Empagliflozin [Jardiance] 10 mg PO DAILY@1200 04/11/22 01/20/24 Apixaban [Eliquis] 5 mg PO BID@0600,1800 05/13/22 01/20/24 Tiotropium 2.5 Mcg/Puff [Spiriva 2 puff INHALATION RT-DAILY 02/28/23 01/20/24 Respimat 2.5 Mcg] Omeprazole [PriLOSEC] 20 mg PO BID@0600,1800 06/27/23 01/20/24 ARIPiprazole [Abilify] 5 mg PO DAILY@0600 07/27/23 01/20/24 Latanoprost [Latanoprost 0.005%] 1 drop BOTH EYES HS 12/14/23 06/08/24 Ferrous Sulfate [Iron (65 MG 325 mg PO DAILY@1200 11/23/23 01/20/24 Elemental)] Folic Acid 1 mg PO DAILY@1200 11/23/23 01/20/24 Loratadine [Claritin] 5 mg PO BID@0600,1800 11/23/23 01/20/24 Metoprolol Tartrate [Lopressor] 50 mg PO BID@0600,1800 11/23/23 01/20/24 allopurinoL [Zyloprim] 300 mg PO DAILY@0600 11/23/23 01/20/24 Albuterol Nebulized [Ventolin 2.5 mg INHALATION RT-TID 01/20/24 01/20/24 Nebulized] Atorvastatin [Lipitor] 40 mg PO HS@1800 01/20/24 01/20/24 Lidocaine 5% Patch [Lidoderm 5% 1 patch TRANSDERM DAILY PRN 01/20/24 01/20/24 Patch] Previous Rx's Medication Instructions Recorded Doxycycline Hyclate 100 mg PO BID #20 cap 01/25/24 Acetaminophen Tab [Tylenol] 650 mg PO Q4HR PRN tab 01/26/24 Nystatin 100,000Unit/gm Cream 1 applic TOPICAL BID #1 each 01/26/24 [Mycostatin Cream] Spironolactone [Aldactone] 25 mg PO DAILY #30 tab 01/26/24 Triamcinolone 0.5% Cream [Kenalog 1 applic TOPICAL BID #1 each 01/26/24 0.5% Cream] oxyCODONE-APAP 5-325MG [Percocet 1 each PO Q6HR PRN #60 tab 01/26/24 5-325 mg] Allergies Allergy/AdvReac Type Severity Reaction Status Date / Time amoxicillin trihydrate AdvReac Rapid Verified 01/20/24 08:25 [From Augmentin] Heart Rate potassium clavulanate AdvReac FELT LIKE Verified 01/20/24 08:25 [From Augmentin] HE WAS GOING TO PASS OUT FAST HEARTBEAT" pregabalin [From Lyrica] AdvReac Leg Verified 01/20/24 08:25 swelling venlafaxine [From Effexor] AdvReac Confusion Verified 01/20/24 08:25 Review of Systems ROS Statement: Those systems with pertinent positive or pertinent negative responses have been documented in the HPI. ROS Other: All systems not noted in ROS Statement are negative. Past Medical History Past Medical History: Atrial Fibrillation, Coronary Artery Disease (CAD), Heart Failure, COPD, Diabetes Mellitus, Eye Disorder, Fibromyalgia, Hypertension, Myocardial Infarction (DC), Musculoskeletal Disorder, Osteoarthritis (OA), Prostate Disorder, Vascular Disorder Additional Past Medical History / Comment(s): Chronic cough, hx pancreatitis, bilateral glaucoma, neuropathy bilateral feet, poor circulation to legs, varico se veins, RLS, hx BPH, colitis, gastritis, Alvarenga's esophagus, hx Shingles in 2013 with joint pain since, chronic low back pain, DDD. wound to right leg, scabies 06/2023 Last Myocardial Infarction Date:: 09/02/16 History of Any Multi-Drug Resistant Organisms: None Reported Past Surgical History: Appendectomy, Cardiac Ablation, Heart Catheterization, Joint Replacement, Orthopedic Surgery, Prostate Surgery Additional Past Surgical History / Comment(s): Right knee arthroscopy, right knee replacement, EGD, colonoscopy, TURP, cardioversion. Past Anesthesia/Blood Transfusion Reactions: No Reported Reaction Additional Past Anesthesia/Blood Transfusion Reaction / Comment(s): No hx blood transfusion. Past Psychological History: Anxiety, Depression Smoking Status: Former smoker Past Alcohol Use History: Occasional Past Drug Use History: Cocaine - Past Family History Father Family Medical History: CVA/TIA, Hypertension Additional Family Medical History / Comment(s): Father at the age of 38yrs from HTN/CVA. He was an alcoholic. Mother Family Medical History: COPD, Diabetes Mellitus Additional Family Medical History / Comment(s): Mother of emphysema at the age of 74 yrs (2003), mom had hx of drinking and smoking. General Exam Limitations: no limitations General appearance: alert, in no apparent distress Head exam: Present: atraumatic, normocephalic, normal inspection Eye exam: Present: normal appearance, PERRL, EOMI. Absent: scleral icterus, conjunctival injection, periorbital swelling ENT exam: Present: normal exam, mucous membranes moist Neck exam: Present: normal inspection. Absent: tenderness, meningismus, lymphadenopathy Respiratory exam: Present: normal lung sounds bilaterally. Absent: respiratory distress, wheezes, rales, rhonchi, stridor Cardiovascular Exam: Present: normal rhythm, tachycardia, normal heart sounds. Absent: systolic murmur, diastolic murmur, rubs, gallop, clicks GI/Abdominal exam: Present: soft, normal bowel sounds. Absent: distended, tenderness, guarding, rebound, rigid Extremities exam: Present: normal inspection, full ROM, normal capillary refill. Absent: tenderness, pedal edema, joint swelling, calf tenderness Back exam: Present: normal inspection Neurological exam: Present: alert, oriented X3, CN II-XII intact Psychiatric exam: Present: normal affect, normal mood Skin exam: Present: other (Redness, swelling and drainage from bilateral lower extremities). Absent: rash Course Vital Signs 01/20/24 01/20/24 01/20/24 05:07 06:06 08:05 Temperature 98.9 F 98.5 F Pulse Rate 102 H 74 107 H Respiratory 18 19 18 Rate Blood Pressure 147/83 138/98 164/90 O2 Sat by Pulse 95 96 98 Oximetry Medical Decision Making - Medical Decision Making Was pt. sent in by a medical professional or institution (, PA, DOOR PERSON, urgent care, hospital, or residential...) When possible be specific @ -No Did you speak to anyone other than the patient for history (EMS, parent, family, police, friend...)? What history was obtained from this source @ -No Did you review nursing and triage notes (agree or disagree)? Why? @ -I reviewed and agree with nursing and triage notes Were old charts reviewed (outside hosp., previous admission, EMS record, old EKG, old radiological studies, urgent care reports/EKG's, residential records)? Report findings @ -No old charts were reviewed Differential Diagnosis (chest pain, altered mental status, abdominal pain women, abdominal pain men, vaginal bleeding, weakness, fever, dyspnea, syncope, headache, dizziness, GI bleed, back pain, seizure, CVA, palpatations, mental health, musculoskeletal)? @ -Cellulitis, abscess, necrotizing fasciitis EKG interpreted by me (3pts min.). @ -Not done X-rays interpreted by me (1pt min.). @ -None done CT interpreted by me (1pt min.). @ -None done U/S interpreted by me (1pt. min.). @ -None done What testing was considered but not performed or refused? (CT, X-rays, U/S, labs)? Why? @ -None What meds were considered but not given or refused? Why? @ -None Did you discuss the management of the patient with other professionals (professionals i.e. , PA, DOOR PERSON, lab, RT, psych nurse, family welfare social work professor, keno writer, teacher, correction officer, case worker)? Give summary @ -Spoke with Dr. Tamayo for admission Was smoking cessation discussed for >3mins.? @ -No Was critical care preformed (if so, how long)? @ -No Were there social determinants of health that impacted care today? How? (Home lessness, low income, unemployed, alcoholism, drug addiction, transportation, low edu. Level, literacy, decrease access to med. care, residential, rehab)? @ -No Was there de-escalation of care discussed even if they declined (Discuss DNR or withdrawal of care, Hospice)? DNR status @ -No What co-morbidities impacted this encounter? (DM, HTN, Smoking, COPD, CAD, Cancer, CVA, ARF, Chemo, Hep., AIDS, mental health diagnosis, sleep apnea, morbid obesity)? @ -Chronic cellulitis Was patient admitted / discharged? Hospital course, mention meds given and route, prescriptions, significant lab abnormalities, going to OR and other pertinent info. @ -Upon arrival patient seen and evaluated in room 1. Thorough history physical exam was performed. IV access was established. Laboratory studies are conducted. Patient initiated on antibiotics. Patient will be admitted for wound care. Spoke with Dr. Tamayo for admission Undiagnosed new problem with uncertain prognosis? @ -No Drug Therapy requiring intensive monitoring for toxicity (Heparin, Nitro, Insulin, Cardizem)? @ -No Were any procedures done? @ -No Diagnosis/symptom? @ -Acute bilateral lower extremity cellulitis Acute, or Chronic, or Acute on Chronic? @ -Acute Uncomplicated (without systemic symptoms) or Complicated (systemic symptoms)? @ -Complicated Side effects of treatment? @ -No Exacerbation, Progression, or Severe Exacerbation? @ -No Poses a threat to life or bodily function? How? (Chest pain, USA, DC, pneumonia, PE, COPD, DKA, ARF, appy, cholecystitis, CVA, Diverticulitis, Homicidal, Suicidal, threat to staff... and all critical care pts) @ -No - Lab Data Result diagrams: 01/25/24 06:09 01/25/24 06:09 Lab Results 01/20/24 01/20/24 01/20/24 Range/Units 05:27 05:27 05:27 WBC 10.1 (3.8-10.6) k/uL RBC 4.59 (4.30-5.90) m/uL Hgb 13.9 (13.0-17.5) gm/dL Hct 42.3 (39.0-53.0) % MCV 92.1 (80.0-100.0) fL MCH 30.2 (25.0-35.0) pg MCHC 32.8 (31.0-37.0) g/dL RDW 14.6 (11.5-15.5) % Plt Count 243 (150-450) k/uL MPV 7.1 Neutrophils % 84 % Lymphocytes % 6 % Monocytes % 6 % Eosinophils % 2 % Basophils % 1 % Neutrophils # 8.5 H (1.3-7.7) k/uL Lymphocytes # 0.7 L (1.0-4.8) k/uL Monocytes # 0.6 (0-1.0) k/uL Eosinophils # 0.2 (0-0.7) k/uL Basophils # 0.1 (0-0.2) k/uL ESR 41 H (0-20) mm/Hr Sodium 134 L (137-145) mmol/L Potassium 3.0 L (3.5-5.1) mmol/L Chloride 97 L (98-107) mmol/L Carbon Dioxide 27 (22-30) mmol/L Anion Gap 10 mmol/L BUN 14 (9-20) mg/dL Creatinine 0.88 (0.66-1.25) mg/dL Est GFR (CKD-EPI)AfAm >90 (>60 ml/min/1.73 sqM) Est GFR (CKD-EPI)NonAf >90 (>60 ml/min/1.73 sqM) Glucose 160 H (74-99) mg/dL Plasma Lactic Acid Carlos Manuel 2.6 H* (0.7-2.0) mmol/L Calcium 8.5 (8.4-10.2) mg/dL Total Bilirubin 0.8 (0.2-1.3) mg/dL AST 22 (17-59) U/L ALT 23 (4-49) U/L Alkaline Phosphatase 111 (38-126) U/L C-Reactive Protein 6.8 H (<1.0) mg/dL Total Protein 6.0 L (6.3-8.2) g/dL Albumin 3.7 (3.5-5.0) g/dL Disposition Clinical Impression: Cellulitis of both lower extremities Disposition: ADMITTED IP TO THIS HOSP Is patient prescribed a controlled substance at d/c from ED?: No Time of Disposition: 06:04 Decision to Admit Reason: Admit from EC Decision Date: 01/20/24 Decision Time: 06:04
[2024-01-20 10:07] LABS: Erythrocyte Sedimentation Rate 41 mm/Hr (0-20)
[2024-01-20] MEDS: HYDROmorphone 1 MG/ML 1 ML SYRINGE IVP PRN (10:10)
[2024-01-20] MEDS ORDERED: LIDOCAINE 4% PATCH TOPICAL PRN (10:31)
[2024-01-20] MEDS: MONTELUKAST 10 MG TAB PO SCH (11:45)
[2024-01-20] MEDS: oxyCODONE-APAP 10-325MG 1 EACH TAB PO SCH (11:45)
[2024-01-20] MEDS: TAMSULOSIN 0.4 MG CAP.ER.24H PO SCH (11:45)
[2024-01-20] MEDS: DAPAGLIFLOZIN PROPANEDIOL 5 MG TABLET PO SCH (11:45)
[2024-01-20] MEDS: NYSTATIN 100,000 UNIT/ML SUSP 500,000 UNIT/5 ML CUP PO SCH (11:45)
[2024-01-20] MEDS: ARIPiprazole 5 MG TAB PO SCH (11:45)
[2024-01-20] MEDS: CYCLOBENZAPRINE 10 MG TAB PO SCH (11:46)
[2024-01-20] MEDS: FERROUS SULFATE 325 MG TAB PO SCH (11:46)
[2024-01-20] MEDS: allopurinoL 300 MG TAB PO SCH (11:46)
[2024-01-20] MEDS: FOLIC ACID 1 MG TAB PO SCH (11:46)
[2024-01-20] MEDS: METOPROLOL TARTRATE 50 MG TAB PO SCH (11:46)
[2024-01-20] MEDS: PANTOPRAZOLE 40 MG TABLET PO SCH (11:46)
[2024-01-20] MEDS: ALBUTEROL NEBULIZED 2.5 MG/3 ML INHALATION SCH (11:53)
[2024-01-20] MEDS ORDERED: NYSTAT-TRIAMCIN 100,000-0.1 UNIT/GM-% CREAM 30 GM TUBE TOPICAL SCH (12:45)
[2024-01-20 16:22] LABS: Glucose,Whole Blood 163 mg/dL (70-110)
[2024-01-20] MEDS: LORATADINE 10 MG TAB PO SCH (17:04)
[2024-01-20] MEDS: APIXABAN 5 MG TAB PO SCH (17:05)
[2024-01-20] MEDS: ATORVASTATIN 40 MG TAB PO SCH (17:06)
[2024-01-20] MEDS: SYMBICORT 160-4.5 MCG INHALER INHALATION SCH (20:10)
--- NOTE | 2024-01-20 21:04 | P.HPIM ---
History of Present Illness H&P Date: 01/20/24 Chief Complaint: Worsening wounds This is a [address] Chavez. Chronic stable medical conditions include COPD, fibromyalgia, hypertension, osteoarthritis, chronic pancreatitis from alcoholism, peripheral neuropathy varicose veins, restless leg syndrome, BPH surgery, Alvarenga's esophagus and chronic low back pain from osteoarthritis. Alcohol cirrhosis. . cardioversion done for atrial fibrillation in March 2022. Patient has multiple wounds on the upper and lower extremity from scratching. Seen by ID. Does not feel it scabies. Patient was last in the hospital in September of this year. He does follow with the wound care center by Dr. Lyon. He was discharged there from a week ago as his lower extremity wounds are doing well. He applied what he was told to do on the lower extremity wound. But it became again red and weepy. Decided to come in. No fever no chills. Patient still continues to itch himself all of the body. He does have pain at the lower extremity. Appetite is fair. Bowel movements are fair. Lives at home with his sister. Smoking about 2 cigarettes a week. Review of systems: GEN.: Tired, itchy all over EYES: None HEENT: None NECK: None RESPIRATORY: As above CARDIOVASCULAR: As above GASTROINTESTINAL: None GENITOURINARY: None MUSCULOSKELETAL: Joint pains LYMPHATICS: None HEMATOLOGICAL: None PSYCHIATRY: None NEUROLOGICAL: None Past medical history to include: COPD, fibromyalgia, hypertension, osteoarthritis, chronic pancreatitis from alcoholism, peripheral neuropathy, varicose pains, restless leg syndrome, BPH with surgery, Alvarenga's esophagus, chronic low back pain from osteoarthritis, alcohol use disorder with cirrhosis, atrial fibrillation with ablation-went back into atrial fibrillation Social history: lives with his sister Ewelina. Smoked for close to 42 years. Down to few cigarettes a week.. Drinking alcohol for years. Stopped February 2022 Physical examination: VITAL SIGNS: 98.1, 114, 17, 173/86, 98% room air GENERAL: A bit anxious scattered scratch de la cruz. With superficial bleeding at places. EYES: Pupils equal. Conjunctiva normal. HEENT: External appearance of nose and ears normal, oral cavity grossly normal. NECK: JVD raised; masses not palpable. HEART: Heart sounds irregular; edema. LUNGS: Respiratory rate increased l; decreased breath sounds ABDOMEN: Soft, , nontender, liver spleen not palpable, no masses palpable. divarification of recti . PSYCH: Alert and oriented x3; mood and affect anxiousl. MUSCULOSKELETAL:No Clubbing/cyanosis;muscles-grossly intact. evidence of OA NEUROLOGICAL: Cranial nerves grossly intact; no facial asymmetry, power and sensation grossly intact. DERMATOLOGICAL: Several scattered areas of scratch de la cruz. Redness right lower extremity mid lower leg down to the ankle-weeping. Some breakdown of blisters INVESTIGATIONS, reviewed in the clinical context: January 20, 2024: White count 10.1 hemoglobin 13.9 platelets 243 sodium 134 potass ium 3 creatinine 0.88 Assessment and plan: -Acute on chronic right lower extremity/foot dorsum cellulitis, with superficial wound Patient normally follows at the wound center and was cleared for discharge by Dr. Lyon a week ago. ID consulted -COPD in a cigarette smoker Symbicort, Ventolin -Paroxysmal atrial flutter fibrillation a prior history of ablation cardioversion after that.: Now back in atrial fibrillation. Eliquis-. Lopressor 50 p.o. twice daily -chronic congestive heart failure that from systolic and diastolic dysfunction EF 40 % Aldactone fluid restriction - chronic pancreatitis from alcoholism: -Alcohol-induced cirrhosis: Aldactone. Fluid restriction -Chronic fibromyalgia Flexeril 10 mg 3 times a day -Essential hypertension, Lopressor 50 mg twice daily -Primary osteoarthritis, multiple joints bilaterally Pain medications as needed -Alcoholic peripheral neuropathy -restless leg syndrome Requip 4 mg daily at bedtime -Alvarenga's esophagus Protonix 40 mg a day -Full code. Wound is rather severe looking. Given the complexity and severity of patient's condition expect the patient to be in the hospital at least for 2 overnights Past Medical History Past Medical History: Atrial Fibrillation, Coronary Artery Disease (CAD), Heart Failure, COPD, Diabetes Mellitus, Eye Disorder, Fibromyalgia, Hypertension, M yocardial Infarction (ID), Musculoskeletal Disorder, Osteoarthritis (OA), Prostate Disorder, Vascular Disorder Additional Past Medical History / Comment(s): Chronic cough, hx pancreatitis, bilateral glaucoma, neuropathy bilateral feet, poor circulation to legs, varicose veins, RLS, hx BPH, colitis, gastritis, Alvarenga's esophagus, hx Shingles in 2012 with joint pain since, chronic low back pain, DDD. wound to right leg, scabies 06/2023 Last Myocardial Infarction Date:: 09/02/16 History of Any Multi-Drug Resistant Organisms: None Reported Past Surgical History: Appendectomy, Cardiac Ablation, Heart Catheterization, Joint Replacement, Orthopedic Surgery, Prostate Surgery Additional Past Surgical History / Comment(s): Right knee arthroscopy, right knee replacement, EGD, colonoscopy, TURP, cardioversion. Past Anesthesia/Blood Transfusion Reactions: No Reported Reaction Additional Past Anesthesia/Blood Transfusion Reaction / Comment(s): No hx blood transfusion. Past Psychological History: Anxiety, Depression Smoking Status: Former smoker Past Alcohol Use History: Occasional Past Drug Use History: Cocaine - Past Family History Father Family Medical History: CVA/TIA, Hypertension Additional Family Medical History / Comment(s): Father at the age of 38yrs from HTN/CVA. He was an alcoholic. Mother Family Medical History: COPD, Diabetes Mellitus Additional Family Medical History / Comment(s): Mother of emphysema at the age of 74 yrs (2003), mom had hx of drinking and smoking. Medications and Allergies Home Medications Medication Instructions Recorded Confirmed Type Montelukast [Singulair] 10 mg PO DAILY@1200 01/12/18 01/20/24 History Tamsulosin [Flomax] 0.4 mg PO DAILY@1200 11/08/21 01/20/24 History rOPINIRole HCL [Requip] 4 mg PO HS 11/08/21 01/20/24 History Cyclobenzaprine [Flexeril] 10 mg PO TID@0600,1200,1800 11/24/21 01/20/24 History Budesonide-Formot 160-4.5 Mcg 2 puff INHALATION RT-BID@0600,1800 04/11/22 01/20/24 History [Symbicort 160-4.5 Mcg Inhaler] Empagliflozin [Jardiance] 10 mg PO DAILY@1200 04/11/22 01/20/24 History Apixaban [Eliquis] 5 mg PO BID@0600,1800 05/13/22 01/20/24 History Tiotropium 2.5 Mcg/Puff [Spiriva 2 puff INHALATION RT-DAILY 02/28/23 01/20/24 History Respimat 2.5 Mcg] Omeprazole [PriLOSEC] 20 mg PO BID@0600,1800 06/27/23 01/20/24 History ARIPiprazole [Abilify] 5 mg PO DAILY@0600 07/27/23 01/20/24 History Latanoprost [Latanoprost 0.005%] 1 drop BOTH EYES HS 07/27/23 01/20/24 History oxyCODONE-APAP 10-325MG [Percocet 1 tab PO BID 09/19/23 01/20/24 History 10-325 mg] Ferrous Sulfate [Feosol] 325 mg PO DAILY@1200 11/23/23 01/20/24 History Folic Acid 1 mg PO DAILY@1200 11/23/23 01/20/24 History Furosemide [Lasix] 40 mg PO BID@0600,1800 11/23/23 01/20/24 History Loratadine [Claritin] 5 mg PO BID@0600,1800 11/23/23 01/20/24 History Metoprolol Tartrate [Lopressor] 50 mg PO BID@0600,1800 11/23/23 01/20/24 History allopurinoL [Zyloprim] 300 mg PO DAILY@0600 11/23/23 01/20/24 History Albuterol Nebulized [Ventolin 2.5 mg INHALATION RT-TID 01/20/24 01/20/24 History Nebulized] Atorvastatin [Lipitor] 40 mg PO HS@1800 01/20/24 01/20/24 History Lidocaine 5% Patch [Lidoderm] 1 patch TRANSDERM DAILY PRN 01/20/24 01/20/24 History Nystatin 100,000 Unit/ml Susp 500,000 unit PO QID 01/20/24 01/20/24 History [Mycostatin Oral Susp] SILVER sulfADIAZINE CREAM 1 applic TOPICAL DAILY 01/20/24 01/20/24 History [Silvadene Cream] Allergies Allergy/AdvReac Type Severity Reaction Status Date / Time amoxicillin trihydrate AdvReac Rapid Verified 01/20/24 08:25 [From Augmentin] Heart Rate potassium clavulanate AdvReac FELT LIKE Verified 01/20/24 08:25 [From Augmentin] HE WAS GOING TO PASS OUT FAST HEARTBEAT" pregabalin [From Lyrica] AdvReac Leg Verified 01/20/24 08:25 swelling venlafaxine [From Effexor] AdvReac Confusion Verified 01/20/24 08:25 Physical Exam Vitals: Vital Signs Temp Pulse Pulse Resp BP BP Pulse Ox 01/20/24 08:26 98.1 F 114 H 17 173/86 98 01/20/24 08:05 98.5 F 107 H 18 164/90 98 01/20/24 06:06 74 19 138/98 96 01/20/24 05:07 98.9 F 102 H 18 147/83 95 Intake and Output 01/19/24 01/20/24 01/20/24 22:59 06:59 14:59 Other: Weight 101.151 kg Results CBC & Chem 7: 01/20/24 05:27 01/20/24 05:27 Labs: Abnormal Lab Results - Last 24 Hours (Table) 01/20/24 01/20/24 01/20/24 Range/Units 05:27 05:27 05:27 Neutrophils # 8.5 H (1.3-7.7) k/uL Lymphocytes # 0.7 L (1.0-4.8) k/uL ESR 41 H (0-20) mm/Hr Sodium 134 L (137-145) mmol/L Potassium 3.0 L (3.5-5.1) mmol/L Chloride 97 L (98-107) mmol/L Glucose 160 H (74-99) mg/dL Plasma Lactic Acid Carlos Manuel 2.6 H* (0.7-2.0) mmol/L C-Reactive Protein 6.8 H (<1.0) mg/dL Total Protein 6.0 L (6.3-8.2) g/dL
[2024-01-20] MEDS: NYSTATIN 100,000UNIT/GM CREAM 30 GM TUBE TOPICAL SCH (21:42)
[2024-01-20] MEDS: TRIAMCINOLONE ACET 0.5% CREAM 15 GM TUBE TOPICAL SCH (21:42)
[2024-01-20] MEDS: LATANOPROST 0.005% OPHTH DROPS 2.5 ML BTL BOTH EYES SCH (21:43)
[2024-01-20] MEDS: rOPINIRole HCL 4 MG TABLET PO SCH (21:44)
[2024-01-20] MEDS: SPIRONOLACTONE 25 MG TAB PO SCH (21:46)
--- NOTE | 2024-01-21 08:49 | P.CONS ---
History of Present Illness - Reason for Consult Consult date: 01/20/24 - History of Present Illness Patient is a 63-year-old male with a past medical history significant for coronary artery disease diabetes mellitus heart failure atrial fibrillation [place] osteoarthritis and did have admission to the hospital treated for lower extremity wound and cellulitis likely venous stasis and the patient mention his wound was almost healed and the patient was discharged from wound care center n ow presenting back to the hospital with worsening wound swelling redness to bilateral lower extremity patient mention he was advised Silvadene cream however when he applied it he noticed to have sloughing from his lower extremity and intense pain describing it to be sharp moderate to severe intensity without radiation with worsening swelling redness the patient present to the hospital on arrival to the ER patient was afebrile and no fever have been recorded subsequently patient was mildly tachycardic but not hypotensive or hypoxic and no need for supplemental oxygen patient did have a white count of 10.1 creatinine has been 0.88 liver enzymes are normal patient has been admitted to the hospital infectious disease was consulted for further management of antibiotic therapy Past Medical History Past Medical History: Atrial Fibrillation, Coronary Artery Disease (CAD), Heart Failure, COPD, Diabetes Mellitus, Eye Disorder, Fibromyalgia, Hypertension, M yocardial Infarction ([place]), Musculoskeletal Disorder, Osteoarthritis (OA), Prostate Disorder, Vascular Disorder Additional Past Medical History / Comment(s): Chronic cough, hx pancreatitis, bilateral glaucoma, neuropathy bilateral feet, poor circulation to legs, varicose veins, RLS, hx BPH, colitis, gastritis, Alvarenga's esophagus, hx Shingles in 2012 with joint pain since, chronic low back pain, DDD. wound to right leg, scabies 06/2023 Last Myocardial Infarction Date:: 09/02/16 History of Any Multi-Drug Resistant Organisms: None Reported Past Surgical History: Appendectomy, Cardiac Ablation, Heart Catheterization, Joint Replacement, Orthopedic Surgery, Prostate Surgery Additional Past Surgical History / Comment(s): Right knee arthroscopy, right knee replacement, EGD, colonoscopy, TURP, cardioversion. Past Anesthesia/Blood Transfusion Reactions: No Reported Reaction Additional Past Anesthesia/Blood Transfusion Reaction / Comm: No hx blood transfusion. Past Psychological History: Anxiety, Depression Smoking Status: Former smoker Past Alcohol Use History: Occasional Past Drug Use History: Cocaine - Past Family History Father Family Medical History: CVA/TIA, Hypertension Additional Family Medical History / Comment(s): Father at the age of 38yrs from HTN/CVA. He was an alcoholic. Mother Family Medical History: COPD, Diabetes Mellitus Additional Family Medical History / Comment(s): Mother of emphysema at the age of 74 yrs (2003), mom had hx of drinking and smoking. Medications and Allergies Home Medications Medication Instructions Recorded Confirmed Type Montelukast [Singulair] 10 mg PO DAILY@1200 01/12/18 01/20/24 History Tamsulosin [Flomax] 0.4 mg PO DAILY@1200 11/08/21 01/20/24 History rOPINIRole HCL [Requip] 4 mg PO HS 11/08/21 01/20/24 History Cyclobenzaprine [Flexeril] 10 mg PO TID@0600,1200,1800 11/24/21 01/20/24 History Budesonide-Formot 160-4.5 Mcg 2 puff INHALATION RT-BID@0600,1800 04/11/22 01/20/24 History [Symbicort 160-4.5 Mcg Inhaler] Empagliflozin [Jardiance] 10 mg PO DAILY@1200 04/11/22 01/20/24 History Apixaban [Eliquis] 5 mg PO BID@0600,1800 05/13/22 01/20/24 History Tiotropium 2.5 Mcg/Puff [Spiriva 2 puff INHALATION RT-DAILY 02/28/23 01/20/24 History Respimat 2.5 Mcg] Omeprazole [PriLOSEC] 20 mg PO BID@0600,1800 06/27/23 01/20/24 History ARIPiprazole [Abilify] 5 mg PO DAILY@0600 07/27/23 01/20/24 History Latanoprost [Latanoprost 0.005%] 1 drop BOTH EYES 07/27/23 01/20/24 History oxyCODONE-APAP 10-325MG [Percocet 1 tab PO BID 09/19/23 01/20/24 History 10-325 mg] Ferrous Sulfate [Feosol] 325 mg PO DAILY@1200 11/23/23 01/20/24 History Folic Acid 1 mg PO DAILY@1200 11/23/23 01/20/24 History Furosemide [Lasix] 40 mg PO BID@0600,1800 11/23/23 01/20/24 History Loratadine [Claritin] 5 mg PO BID@0600,1800 11/23/23 01/20/24 History Metoprolol Tartrate [Lopressor] 50 mg PO BID@0600,1800 11/23/23 01/20/24 History allopurinoL [Zyloprim] 300 mg PO DAILY@0600 11/23/23 01/20/24 History Albuterol Nebulized [Ventolin 2.5 mg INHALATION RT-TID 01/20/24 01/20/24 History Nebulized] Atorvastatin [Lipitor] 40 mg PO HS@179901/20/24 01/20/24 History Lidocaine 5% Patch [Lidoderm] 1 patch TRANSDERM DAILY PRN 01/20/24 01/20/24 History Nystatin 100,000 Unit/ml Susp 500,000 unit PO QID 01/20/24 01/20/24 History [Mycostatin Oral Susp] SILVER sulfADIAZINE CREAM 1 applic TOPICAL DAILY 01/20/24 01/20/24 History [Silvadene Cream] Allergies Allergy/AdvReac Type Severity Reaction Status Date / Time amoxicillin trihydrate AdvReac Rapid Verified 01/20/24 08:25 [From Augmentin] Heart Rate potassium clavulanate AdvReac FELT LIKE Verified 01/20/24 08:25 [From Augmentin] HE WAS GOING TO PASS OUT FAST HEARTBEAT" pregabalin [From Lyrica] AdvReac Leg Verified 01/20/24 08:25 swelling venlafaxine [From Effexor] AdvReac Confusion Verified 01/20/24 08:25 Physical Exam Vitals: Vital Signs Temp Pulse Pulse Resp BP BP Pulse Ox 01/21/24 07:00 97.9 F 91 16 128/76 96 01/21/24 01:08 97.9 F 103 H 150/91 97 01/20/24 20:16 110 H 20 01/20/24 20:11 98.6 F 105 H 138/83 96 01/20/24 20:10 113 H 20 01/20/24 17:18 99 134/78 01/20/24 16:18 98.4 F 01/20/24 14:17 98.8 F 95 16 144/80 100 01/20/24 14:00 95 16 01/20/24 12:05 116 H 01/20/24 11:56 120 H Intake and Output 01/20/24 01/21/24 01/21/24 22:59 06:59 14:59 Output Total 590 Balance -590 Output: Urine 590 Other: Voiding Method Urinal # Voids 1 Results CBC & Chem 7: 01/20/24 05:27 01/20/24 05:27 Labs: Abnormal Lab Results - Last 24 Hours (Table) 01/20/24 01/20/24 01/20/24 Range/Units 05:27 11:24 14:41 ESR 41 H (0-20) mm/Hr POC Glucose (mg/dL) (70-110) mg/dL Plasma Lactic Acid Carlos Manuel 2.7 H* 2.5 H* (0.7-2.0) mmol/L 01/20/24 Range/Units 16:21 ESR (0-20) mm/Hr POC Glucose (mg/dL) 163 H (70-110) mg/dL Plasma Lactic Acid Carlos Manuel (0.7-2.0) mmol/L Assessment and Plan Plan: 1patient with bilateral lower extremity likely venous stasis ulcer with secondary cellulitis with diffuse swelling redness likely cellulitis from a gram-positive skin tarsha clinically not behaving as gram-negative MRSA and not scabies 2-patient with a penicillin allergy therapeutic with number of antibiotics safe to use 3-local care with the Mycolog cream twice a day 4-we will start the patient cefazolin 2 g every 8 hours Question concern answered We will follow on clinical condition and cultures to further adjust medication if needed Thank you for this consultation we will follow the patient along with you Dictation was produced using [employer] dictation software. please excuse any grammatical, word or spelling errors. Time with Patient: Greater than 30
[2024-01-21 09:34] LABS: Basophils # (A) 0.05 X 10*3/uL (0.00-0.10); Basophils % (A) 0.7 %; Eosinophils # (A) 0.22 X 10*3/uL (0.04-0.35); Eosinophils % (A) 3.1 %; HCT 39.3 % (39.6-50.0); HGB 12.5 g/dL (13.0-17.0); Lymphocytes # (A) 0.98 X 10*3/uL (0.90-5.00); MCH 30.3 pg (27.0-32.0); MCHC 31.8 g/dL (32.0-37.0); MCV 95.4 FL (80.0-97.0); Mean Platelet Volume 9.1 FL (9.5-12.2); Monocytes # (A) 0.72 X 10*3/uL (0.20-1.00); Monocytes % (A) 10.3 %; NRBC Per 100 WBC 0 X 10*3/uL (0.00-0.01); Neutrophils # (A) 5.02 X 10*3/uL (1.80-7.70); Neutrophils % (A) 71.5 %; Platelet Count 215 X 10*3/uL (140-440); RBC 4.12 X 10*6/uL (4.40-5.60); WBC 7.02 X 10*3/uL (4.50-10.00)
[2024-01-21 09:54] LABS: Blood Urea Nitrogen 12.4 mg/dL (9.0-27.0); Carbon Dioxide 26.8 mmol/L (21.6-31.8); Chloride 99 mmol/L (96-109); Glucose 153 mg/dL (70-110); Potassium 3.7 mmol/L (3.5-5.5); Sodium 141 mmol/L (135-145)
--- NOTE | 2024-01-21 21:31 | P.PN ---
Progress Note - Text Progress Note Date: 01/21/24 Chief Complaint: Worsening wounds This is a [address] Chavez. Chronic stable medical conditions include COPD, fibromyalgia, hypertension, osteoarthritis, chronic pancreatitis from alcoholism, peripheral neuropathy varicose veins, restless leg syndrome, B PH surgery, Alvarenga's esophagus and chronic low back pain from osteoarthritis. Alcohol cirrhosis. . cardioversion done for atrial fibrillation in March 2022. Patient has multiple wounds on the upper and lower extremity from scratching. Seen by ID. Does not feel it scabies. Patient was last in the hospital in September of this year. He does follow with the wound care center by Dr. Lyon. He was discharged there from a week ago as his lower extremity wounds are doing well. He applied what he was told to do on the lower extremity wound. But it became again red and weepy. Decided to c ome in. No fever no chills. Patient still continues to itch himself all of the body. He does have pain at the lower extremity. Appetite is fair. Bowel movements are fair. Lives at home with his sister. Smoking about 2 cigarettes a week. January 20: Seen by ID. Venous stasis ulcers with secondary cellulitis. Local care with Mycolog cream has been started. Also on IV Ancef. Cultures pending. Eating well. Patient told to clip his nails. Active Medications Albuterol Sulfate (Albuterol Nebulized 2.5 Mg/3 Ml) 2.5 mg INHALATION RT-TID [facility] Last Admin: 01/21/24 20:09 Dose: 2.5 mg Allopurinol (Allopurinol 300 Mg Tab) 300 mg PO DAILY@0600 [facility] Last Admin: 01/21/24 05:38 Dose: 300 mg Apixaban (Apixaban 5 Mg Tab) 5 mg PO BID@0600,1800 [facility]; Protocol Last Admin: 01/21/24 17:35 Dose: 5 mg Aripiprazole (Aripiprazole 5 Mg Tab) 5 mg PO DAILY@0600 [facility] Last Admin: 01/21/24 05:37 Dose: 5 mg Atorvastatin Calcium (Atorvastatin 40 Mg Tab) 40 mg PO HS@1800 [facility] Last Admin: 01/21/24 17:36 Dose: 40 mg Budesonide/Formoterol Fumarate (Symbicort 160-4.5 Mcg Inhaler) 2 puff INHALATION RT-BID@0600,1800 [facility] Last Admin: 01/21/24 20:09 Dose: 2 puff Cyclobenzaprine HCl (Cyclobenzaprine 10 Mg Tab) 10 mg PO TID@0600,1200,1800 [facility] Last Admin: 01/21/24 17:36 Dose: 10 mg Dapagliflozin (Dapagliflozin Propanediol 5 Mg Tablet) 5 mg PO DAILY@1200 [facility] Last Admin: 01/21/24 08:56 Dose: 5 mg Ferrous Sulfate (Ferrous Sulfate 325 Mg Tab) 325 mg PO DAILY@1200 [facility] Last Admin: 01/21/24 08:57 Dose: 325 mg Folic Acid (Folic Acid 1 Mg Tab) 1 mg PO DAILY@1200 [facility] Last Admin: 01/21/24 12:02 Dose: 1 mg Hydromorphone HCl (Hydromorphone 1 Mg/Ml 1 Ml Syringe) 1 mg IVP Q3HR PRN PRN Reason: Severe Pain (Scale 7 to 10) Last Admin: 01/21/24 18:31 Dose: 1 mg Cefazolin Sodium 2 gm/ Sodium (Chloride) 50 mls @ 100 mls/hr IVPB Q8HR [facility]; Protocol Last Admin: 01/21/24 15:16 Dose: 100 mls/hr Latanoprost (Latanoprost 0.005% Ophth Drops 2.5 Ml Btl) 1 drops [facility] Last Admin: 01/21/24 20:17 Dose: 1 drops Lidocaine (Lidocaine 4% Patch) 1 patch TOPICAL DAILY PRN PRN Reason: Pain Loratadine (Loratadine 10 Mg Tab) 5 mg PO BID@0600,1800 [facility] Last Admin: 01/21/24 17:35 Dose: 5 mg Metoprolol Tartrate (Metoprolol Tartrate 50 Mg Tab) 50 mg PO BID@0600,1800 [facility] Last Admin: 01/21/24 17:36 Dose: 50 mg Montelukast Sodium (Montelukast 10 Mg Tab) 10 mg PO DAILY@1200 [facility] Last Admin: 01/21/24 12:02 Dose: 10 mg Naloxone HCl (Naloxone 0.4 Mg/Ml 1 Ml Vial) 0.2 mg IV Q2M PRN PRN Reason: Opioid Reversal Nystatin (Nystatin 100,000 Unit/Ml Susp 500,000 Unit/5 Ml Cup) 500,000 unit PO QID [facility]; Protocol Last Admin: 01/21/24 20:17 Dose: 500,000 unit Nystatin (Nystatin 100,000unit/Gm Cream 30 Gm Tube) 1 applic TOPICAL BID [facility]; Protocol Last Admin: 01/21/24 20:17 Dose: Not Given Oxycodone/Acetaminophen (Oxycodone-Apap 10-325mg 1 Each Tab) 1 each PO BID [facility] Last Admin: 01/21/24 20:16 Dose: 1 each Pantoprazole Sodium (Pantoprazole 40 Mg Tablet) 40 mg PO BID@0600,1800 [facility] Last Admin: 01/21/24 17:36 Dose: 40 mg Ropinirole HCl (Ropinirole Hcl 4 Mg Tablet) 4 mg PO HS [facility] Last Admin: 01/21/24 20:16 Dose: 4 mg Spironolactone (Spironolactone 25 Mg Tab) 25 mg PO DAILY [facility] Last Admin: 01/21/24 09:03 Dose: 25 mg Tamsulosin HCl (Tamsulosin 0.4 Mg Cap.Er.24h) 0.4 mg PO DAILY@1200 [facility] Last Admin: 01/21/24 08:56 Dose: 0.4 mg Triamcinolone Acetonide (Triamcinolone Acet 0.5% Cream 15 Gm Tube) 1 applic TOPICAL BID [facility]; Protocol Last Admin: 01/21/24 20:18 Dose: Not Given Past medical history to include: COPD, fibromyalgia, hypertension, osteoarthritis, chronic pancreatitis from alcoholism, peripheral neuropathy, varicose pains, restless leg syndrome, BPH with surgery, Alavrenga's esophagus, chronic low back pain from osteoarthritis, alcohol use disorder with cirrhosis, atrial fibrillation with ablation-went back into atrial fibrillation Social history: lives with his sister Ewelina. Smoked for close to 42 years. Down to few cigarettes a week.. Drinking alcohol for years. Stopped February 2022 Physical examination: VITAL SIGNS: 98.6, 97, 18, 114/71, 97% room air GENERAL: A bit anxious scattered scratch de la cruz. With superficial bleeding at places. EYES: Pupils equal. Conjunctiva normal. HEENT: External appearance of nose and ears normal, oral cavity grossly normal. NECK: JVD raised; masses not palpable. HEART: Heart sounds irregular; edema. LUNGS: Respiratory rate increased l; decreased breath sounds ABDOMEN: Soft, , nontender, liver spleen not palpable, no masses palpable. divarification of recti . PSYCH: Alert and oriented x3; mood and affect anxiousl. MUSCULOSKELETAL:No Clubbing/cyanosis;muscles-grossly intact. evidence of OA NEUROLOGICAL: Cranial nerves grossly intact; no facial asymmetry, power and sensation grossly intact. DERMATOLOGICAL: Several scattered areas of scratch de la cruz. Redness right lower extremity mid lower leg down to the ankle-weeping. Some breakdown of blisters INVESTIGATIONS, reviewed in the clinical context: January 20: White count 7 hemoglobin 12.5 platelets 215 potassium 3.7 creatinine 1 January 20, 2024: White count 10.1 hemoglobin 13.9 platelets 243 sodium 134 potassium 3 creatinine 0.88 Assessment and plan: -Acute on chronic right lower extremity/foot dorsum cellulitis, secondary to venous stasis. Patient normally follows at the wound center and was cleared for discharge by Dr. Lyon a week ago. ID-Mycolog cream twice daily. IV Ancef -COPD in a cigarette smoker Symbicort, Ventolin -Paroxysmal atrial flutter fibrillation a prior history of ablation cardioversion after that.: Now back in atrial fibrillation. Eliquis-. Lopressor 50 p.o. twice daily -chronic congestive heart failure that from systolic and diastolic dysfunction EF 40 % Aldactone fluid restriction - chronic pancreatitis from alcoholism: -Alcohol-induced cirrhosis: Aldactone. Fluid restriction -Chronic fibromyalgia Flexeril 10 mg 3 times a day -Essential hypertension, Lopressor 50 mg twice daily -Primary osteoarthritis, multiple joints bilaterally Pain medications as needed -Alcoholic peripheral neuropathy -restless leg syndrome Requip 4 mg daily at bedtime -Alvarenga's esophagus Protonix 40 mg a day -Full code. Wound care per ID. Antibiotics to continue. Discussed with patient. Past Medical History Past Medical History: Atrial Fibrillation, Coronary Artery Disease (CAD), Heart Failure, COPD, Diabetes Mellitus, Eye Disorder, Fibromyalgia, Hypertension, Myocardial Infarction ([place]), Musculoskeletal Disorder, Osteoarthritis (OA), Prostate Disorder, Vascular Disorder Additional Past Medical History / Comment(s): Chronic cough, hx pancreatitis, b ilateral glaucoma, neuropathy bilateral feet, poor circulation to legs, varicose veins, RLS, hx BPH, colitis, gastritis, Alvarenga's esophagus, hx Shingles in 2012 with joint pain since, chronic low back pain, DDD. wound to right leg, scabies 06/2023 Last Myocardial Infarction Date:: 09/02/16 History of Any Multi-Drug Resistant Organisms: None Reported Past Surgical History: Appendectomy, Cardiac Ablation, Heart Catheterization, Joint Replacement, Orthopedic Surgery, Prostate Surgery Additional Past Surgical History / Comment(s): Right knee arthroscopy, right knee replacement, EGD, colonoscopy, TURP, cardioversion. Past Anesthesia/Blood Transfusion Reactions: No Reported Reaction Additional Past Anesthesia/Blood Transfusion Reaction / Comment(s): No hx blood transfusion. Past Psychological History: Anxiety, Depression Smoking Status: Former smoker Past Alcohol Use History: Occasional Past Drug Use History: Cocaine
--- NOTE | 2024-01-22 00:14 | P.PN ---
Subjective Progress Note Date: 01/21/24 Principal diagnosis: Reason for follow-up is bilateral lower extremity cellulitis Patient is a 63-year-old male with a past medical history significant for coronary artery disease diabetes mellitus heart failure atrial fibrillation [place] osteoarthritis, presented to hospital worsening swelling redness of bilateral lower extremity. On today's evaluation that is 01/21/2024,the patient denies any fever or any chills, patient is breathing comfortably on room air, the patient denies chest pain shortness of breath and no significant cough, patient denies abdominal pain, no nausea vomiting or diarrhea. Patient lower extremity pain and redness has slightly decreased in intensity. Patient white count is 7.02, creatinine is 1.0 Objective - Vital Signs Vital signs: Vital Signs Temp 97.9 F 01/21/24 07:00 Pulse 91 01/21/24 07:00 Resp 16 01/21/24 07:00 BP 128/76 01/21/24 07:00 Pulse Ox 96 01/21/24 07:00 FiO2 Intake & Output 01/20/24 01/21/24 01/21/24 18:59 06:59 18:59 Output Total 590 Balance -590 Weight 101.151 kg Output: Urine 590 Other: Voiding Method Urinal # Voids 4 1 - Exam Middle-age male lying in bed in no distress Unlabored breathing Bilateral legs are currently wrapped in Michele wrap no drainage - Labs CBC & Chem 7: 01/21/24 05:56 01/21/24 05:56 Labs: Abnormal Lab Results - Last 24 Hours (Table) 01/20/24 01/20/24 01/20/24 Range/Units 05:27 11:24 14:41 ESR 41 H (0-20) mm/Hr POC Glucose (mg/dL) (70-110) mg/dL Plasma Lactic Acid Carlos Manuel 2.7 H* 2.5 H* (0.7-2.0) mmol/L 01/20/24 Range/Units 16:21 ESR (0-20) mm/Hr POC Glucose (mg/dL) 163 H (70-110) mg/dL Plasma Lactic Acid Carlos Manuel (0.7-2.0) mmol/L Assessment and Plan (1) Cellulitis of both lower extremities Current Visit: Yes Status: Acute Code(s): L03.115 - CELLULITIS OF RIGHT LOWER LIMB; L03.116 - CELLULITIS OF LEFT LOWER LIMB SNOMED Code(s): 515936466 Plan: This is a telehealth visit 1patient with bilateral lower extremity likely venous stasis ulcer with secondary cellulitis with diffuse swelling redness likely cellulitis from a gr am-positive skin tarsha clinically not behaving as gram-negative MRSA and not scabies 2-patient with a penicillin allergy therapeutic with number of antibiotics safe to use 3-local care to continue with the Mycolog cream twice a day followed by Michele wrap 4-patient to continue with cefazolin 2 g every 8 hours Dictation was produced using [employer] dictation software. please excuse any grammatical, word or spelling errors. Time with Patient: Less than 30
--- NOTE | 2024-01-22 20:38 | P.PN ---
Progress Note - Text Progress Note Date: 01/22/24 Chief Complaint: Worsening wounds This is a [address] Chavez. Chronic stable medical conditions include COPD, fibromyalgia, hypertension, osteoarthritis, chronic pancreatitis from alcoholism, peripheral neuropathy varicose veins, restless leg syndrome, B PH surgery, Alvarenga's esophagus and chronic low back pain from osteoarthritis. Alcohol cirrhosis. . cardioversion done for atrial fibrillation in March 2022. Patient has multiple wounds on the upper and lower extremity from scratching. Seen by ID. Does not feel it scabies. Patient was last in the hospital in September of this year. He does follow with the wound care center by Dr. Lyon. He was discharged there from a week ago as his lower extremity wounds are doing well. He applied what he was told to do on the lower extremity wound. But it became again red and weepy. Decided to c ome in. No fever no chills. Patient still continues to itch himself all of the body. He does have pain at the lower extremity. Appetite is fair. Bowel movements are fair. Lives at home with his sister. Smoking about 2 cigarettes a week. January 20: Seen by ID. Venous stasis ulcers with secondary cellulitis. Local care with Mycolog cream has been started. Also on IV Ancef. Cultures pending. Eating well. Patient told to clip his nails. January 21: Eating well. On IV Ancef. Local care is Mycolog. Patient does not think it is improving currently. Afebrile Active Medications Albuterol Sulfate (Albuterol Nebulized 2.5 Mg/3 Ml) 2.5 mg INHALATION RT-TID [facility] Last Admin: 01/22/24 12:32 Dose: 2.5 mg Allopurinol (Allopurinol 300 Mg Tab) 300 mg PO DAILY@0600 [facility] Last Admin: 01/22/24 05:15 Dose: 300 mg Apixaban (Apixaban 5 Mg Tab) 5 mg PO BID@0600,1800 [facility]; Protocol Last Admin: 01/22/24 17:24 Dose: 5 mg Aripiprazole (Aripiprazole 5 Mg Tab) 5 mg PO DAILY@0600 [facility] Last Admin: 01/22/24 05:15 Dose: 5 mg Atorvastatin Calcium (Atorvastatin 40 Mg Tab) 40 mg PO HS@1800 [facility] Last Admin: 01/22/24 17:24 Dose: 40 mg Budesonide/Formoterol Fumarate (Symbicort 160-4.5 Mcg Inhaler) 2 puff INHALATION RT-BID@0600,1800 [facility] Last Admin: 01/22/24 09:07 Dose: 2 puff Cyclobenzaprine HCl (Cyclobenzaprine 10 Mg Tab) 10 mg PO TID@0600,1200,1800 [facility] Last Admin: 01/22/24 17:24 Dose: 10 mg Dapagliflozin (Dapagliflozin Propanediol 5 Mg Tablet) 5 mg PO DAILY@1200 [facility] Last Admin: 01/22/24 12:14 Dose: 5 mg Ferrous Sulfate (Ferrous Sulfate 325 Mg Tab) 325 mg PO DAILY@1200 [facility] Last Admin: 01/22/24 12:14 Dose: 325 mg Folic Acid (Folic Acid 1 Mg Tab) 1 mg PO DAILY@1200 [facility] Last Admin: 01/22/24 12:14 Dose: 1 mg Hydromorphone HCl (Hydromorphone 1 Mg/Ml 1 Ml Syringe) 1 mg IVP Q3HR PRN PRN Reason: Severe Pain (Scale 7 to 10) Last Admin: 01/22/24 17:57 Dose: 1 mg Cefazolin Sodium 2 gm/ Sodium (Chloride) 50 mls @ 100 mls/hr IVPB Q8HR [facility] [place]; Protocol Last Admin: 01/22/24 17:23 Dose: 100 mls/hr Latanoprost (Latanoprost 0.005% Ophth Drops 2.5 Ml Btl) 1 drops [facility] Last Admin: 01/21/24 20:17 Dose: 1 drops Lidocaine (Lidocaine 4% Patch) 1 patch TOPICAL DAILY PRN PRN Reason: Pain Loratadine (Loratadine 10 Mg Tab) 5 mg PO BID@0600,1800 [facility] [place] Last Admin: 01/22/24 17:24 Dose: 0.5 mg Metoprolol Tartrate (Metoprolol Tartrate 50 Mg Tab) 50 mg PO BID@0600,1800 [facility] Last Admin: 01/22/24 17:24 Dose: 50 mg Montelukast Sodium (Montelukast 10 Mg Tab) 10 mg PO DAILY@1200 [facility] Last Admin: 01/22/24 12:14 Dose: 10 mg Naloxone HCl (Naloxone 0.4 Mg/Ml 1 Ml Vial) 0.2 mg IV Q2M PRN PRN Reason: Opioid Reversal Nystatin (Nystatin 100,000 Unit/Ml Susp 500,000 Unit/5 Ml Cup) 500,000 unit PO QID [facility] [place]; Protocol Last Admin: 01/22/24 17:24 Dose: 500,000 unit Nystatin (Nystatin 100,000unit/Gm Cream 30 Gm Tube) 1 applic TOPICAL BID [facility] [place]; Protocol Last Admin: 01/22/24 08:44 Dose: 1 applic Oxycodone/Acetaminophen (Oxycodone-Apap 10-325mg 1 Each Tab) 1 each PO BID [facility] [place] Last Admin: 01/22/24 08:44 Dose: 1 each Pantoprazole Sodium (Pantoprazole 40 Mg Tablet) 40 mg PO BID@0600,1800 [facility] [place] Last Admin: 01/22/24 17:24 Dose: 40 mg Ropinirole HCl (Ropinirole Hcl 4 Mg Tablet) 4 mg PO HS [facility] Last Admin: 01/21/24 20:16 Dose: 4 mg Spironolactone (Spironolactone 25 Mg Tab) 25 mg PO DAILY [facility] [place] Last Admin: 01/22/24 08:44 Dose: 25 mg Tamsulosin HCl (Tamsulosin 0.4 Mg Cap.Er.24h) 0.4 mg PO DAILY@1200 [facility] Last Admin: 01/22/24 12:14 Dose: 0.4 mg Triamcinolone Acetonide (Triamcinolone Acet 0.5% Cream 15 Gm Tube) 1 applic TOPICAL BID [facility]; Protocol Last Admin: 01/22/24 08:44 Dose: Not Given Past medical history to include: COPD, fibromyalgia, hypertension, osteoarthritis, chronic pancreatitis from alcoholism, peripheral neuropathy, varicose pains, restless leg syndrome, BPH with surgery, Alvarenga's esophagus, chronic low back pain from osteoarthritis, alcohol use disorder with cirrhosis, atrial fibrillation with ablation-went back into atrial fibrillation Social history: lives with his sister Ewelina. Smoked for close to 42 years. Down to few cigarettes a week.. Drinking alcohol for years. Stopped February 2022 Physical examination: VITAL SIGNS: 98, 68, 16, 128 x 78, 97% room air GENERAL: A bit anxious scattered scratch de la cruz. With superficial bleeding at places. EYES: Pupils equal. Conjunctiva normal. HEENT: External appearance of nose and ears normal, oral cavity grossly normal. NECK: JVD raised; masses not palpable. HEART: Heart sounds irregular; edema. LUNGS: Respiratory rate increased l; decreased breath sounds ABDOMEN: Soft, , nontender, liver spleen not palpable, no masses palpable. divarification of recti . PSYCH: Alert and oriented x3; mood and affect anxiousl. MUSCULOSKELETAL:No Clubbing/cyanosis;muscles-grossly intact. evidence of OA DERMATOLOGICAL: Several scattered areas of scratch de la cruz. Redness right lower extremity mid lower leg down to the ankle-weeping. Some breakdown of blisters INVESTIGATIONS, reviewed in the clinical context: January 21: White count 7 hemoglobin 12.5 platelets 215 sodium 141 potassium 3.7 creatinine 1.0 January 20: White count 7 hemoglobin 12.5 platelets 215 potassium 3.7 creatinine 1 January 20, 2024: White count 10.1 hemoglobin 13.9 platelets 243 sodium 134 potassium 3 creatinine 0.88 Assessment and plan: -Acute on chronic right lower extremity/foot dorsum cellulitis, secondary to venous stasis. Patient normally follows at the wound center and was discharge by Dr. Lyon a week ago. ID-Mycolog cream twice daily. IV Ancef -COPD in a cigarette smoker Symbicort, Ventolin -Paroxysmal atrial flutter fibrillation a prior history of ablation cardioversion after that.: Now back in atrial fibrillation. Eliquis-. Lopressor 50 p.o. twice daily -chronic congestive heart failure that from systolic and diastolic dysfunction EF 40 % Aldactone fluid restriction - chronic pancreatitis from alcoholism: -Alcohol-induced cirrhosis: Aldactone. Fluid restriction -Chronic fibromyalgia Flexeril 10 mg 3 times a day -Essential hypertension, Lopressor 50 mg twice daily -Primary osteoarthritis, multiple joints bilaterally Pain medications as needed -Alcoholic peripheral neuropathy -restless leg syndrome Requip 4 mg daily at bedtime -Alvarenga's esophagus Protonix 40 mg a day -Full code. Discussed. Continue current treatment. Past Medical History Past Medical History: Atrial Fibrillation, Coronary Artery Disease (CAD), Heart Failure, COPD, Diabetes Mellitus, Eye Disorder, Fibromyalgia, Hypertension, Myocardial Infarction ([place]), Musculoskeletal Disorder, Osteoarthritis (OA), Prostate Disorder, Vascular Disorder Additional Past Medical History / Comment(s): Chronic cough, hx pancreatitis, bilateral glaucoma, neuropathy bilateral feet, poor circulation to legs, varicose veins, RLS, hx BPH, colitis, gastritis, Alvarenga's esophagus, hx Shingles in 2012 with joint pain since, chronic low back pain, DDD. wound to right leg, scabies 06/2023 Last Myocardial Infarction Date:: 09/02/16 History of Any Multi-Drug Resistant Organisms: None Reported Past Surgical History: Appendectomy, Cardiac Ablation, Heart Catheterization, Joint Replacement, Orthopedic Surgery, Prostate Surgery Additional Past Surgical History / Comment(s): Right knee arthroscopy, right knee replacement, EGD, colonoscopy, TURP, cardioversion. Past Anesthesia/Blood Transfusion Reactions: No Reported Reaction Additional Past Anesthesia/Blood Transfusion Reaction / Comment(s): No hx blood transfusion. Past Psychological History: Anxiety, Depression Smoking Status: Former smoker Past Alcohol Use History: Occasional Past Drug Use History: Cocaine
[2024-01-23] MEDS ORDERED: VANCOMYCIN IV PER PHARMACY 1 EACH MISC MISCELLANE PRN (10:05)
--- NOTE | 2024-01-23 12:33 | P.PN ---
Subjective Progress Note Date: 01/22/24 Principal diagnosis: Reason for follow-up is bilateral lower extremity cellulitis Patient is a 63-year-old male with a past medical history significant for coronary artery disease diabetes mellitus heart failure atrial fibrillation [place] osteoarthritis, presented to hospital worsening swelling redness of bilateral lower extremity. On today's evaluation that is 01/22/2024,the patient remains to be afebrile, patient is on room air not requiring supplemental oxygen and denies any shortness of breath no chest pain or cough.Patient denies having any nausea or vomiting, no abdominal pain and no diarrhea has been reported , Patient denies any worsening pain to the lower extremity and no drainage has been reported No new labs has been obtained today Objective - Vital Signs Vital signs: Vital Signs Temp 98.0 F 01/22/24 07:00 Pulse 68 01/22/24 07:00 Resp 16 01/22/24 07:00 BP 128/78 01/22/24 07:00 Pulse Ox 97 01/22/24 07:00 FiO2 Intake & Output 01/21/24 01/22/24 01/22/24 18:59 06:59 18:59 Intake Total 300 240 Output Total 300 Balance 300 -60 Intake: Oral 300 Tube Feeding 240 Output: Urine 300 Emesis 0 Other: Voiding Method Urinal Urinal # Voids 2 - Exam Middle-age male lying in bed in no distress Unlabored breathing, decreased intensity breath sound Abdomen soft no tenderness Bilateral legs swelling redness slightly decreased minimal bleeding noticed on removal of the dressing Exam completed with help of SENIOR EDITOR - Labs CBC & Chem 7: 01/21/24 05:56 01/21/24 05:56 Labs: Abnormal Lab Results - Last 24 Hours (Table) 01/21/24 01/21/24 Range/Units 05:56 05:56 RBC 4.12 L (4.40-5.60) X 10*6/uL Hgb 12.5 L (13.0-17.0) g/dL Hct 39.3 L (39.6-50.0) % MCHC 31.8 L (32.0-37.0) g/dL RDW 15.0 H (11.5-14.5) % MPV 9.1 L (9.5-12.2) FL Anion Gap 15.20 H (4.00-12.00) mmol/L Glucose 153 H (70-110) mg/dL Microbiology - Last 24 Hours (Table) 01/20/24 05:12 Blood Culture Gram Stain - Preliminary Blood Blood Culture - Preliminary Molecular ID 01/20/24 05:27 Blood Culture - Preliminary Blood Assessment and Plan (1) Cellulitis of both lower extremities Current Visit: Yes Status: Acute Code(s): L03.115 - CELLULITIS OF RIGHT LOWER LIMB; L03.116 - CELLULITIS OF LEFT LOWER LIMB SNOMED Code(s): 876973070 Plan: This is a telehealth visit 1patient with bilateral lower extremity likely venous stasis ulcer with secondary cellulitis with diffuse swelling redness likely cellulitis from a gram-positive skin tarsha clinically not behaving as gram-negative MRSA and not scabies 2-patient with a penicillin allergy therapeutic with number of antibiotics safe to use 3-local care to continue with the Mycolog cream twice a day followed by Michele wrap 4-patient to continue with cefazolin 2 g every 8 hours, did have some improvement to the lower extremity cellulitis if continue to improve to finish therapy with oral Keflex Dictation was produced using [employer] dictation software. please excuse any grammatical, word or spelling errors. Time with Patient: Less than 30
--- NOTE | 2024-01-23 12:34 | P.PN ---
Subjective Progress Note Date: 01/23/24 Principal diagnosis: Reason for follow-up is bilateral lower extremity cellulitis Patient is a 63-year-old male with a past medical history significant for coronary artery disease diabetes mellitus heart failure atrial fibrillation [place] osteoarthritis, presented to hospital worsening swelling redness of bilateral lower extremity. On today's evaluation that is 01/23/2024, the patient continues to be afebrile, the patient is on room air and breathing comfortably, the Pt denies having any chest pain or cough, the patient denies having any abdominal pain no vomiting or any diarrhea, patient noticed to have more erythema to the right lower extremity compared to yesterday also complaining of some discomfort. Patient did have positive blood culture with Staphylococcus epidermidis and no CBC repeat BP was done today Objective - Vital Signs Vital signs: Vital Signs Temp 98.0 F 01/23/24 07:00 Pulse 77 01/23/24 07:00 Resp 16 01/23/24 07:00 BP 153/79 01/23/24 07:00 Pulse Ox 95 01/23/24 07:00 FiO2 Intake & Output 01/22/24 01/23/24 01/23/24 18:59 06:59 18:59 Output Total 500 750 Balance -500 -750 Output: Urine 500 750 Other: Voiding Method Urinal Urinal # Bowel Movements 0 - Exam Middle-age male lying in bed in no distress Unlabored breathing, decreased intensity breath sound Abdomen soft no tenderness Right lower extremity was noted to have more swelling and redness today no drainage Exam completed with help of [employer] - Labs CBC & Chem 7: 01/21/24 05:56 01/21/24 05:56 Labs: Microbiology - Last 24 Hours (Table) 01/20/24 05:27 Blood Culture - Preliminary Blood 01/20/24 05:12 Blood Culture Gram Stain - Preliminary Blood Blood Culture - Preliminary Staphylococcus epidermidis Molecular ID Assessment and Plan (1) Cellulitis of both lower extremities Current Visit: Yes Status: Acute Code(s): L03.115 - CELLULITIS OF RIGHT LOWER LIMB; L03.116 - CELLULITIS OF LEFT LOWER LIMB SNOMED Code(s): 417512369 Plan: This is a telehealth visit 1patient with bilateral lower extremity likely venous stasis ulcer with secondary cellulitis with diffuse swelling redness likely cellulitis from a gram-positive skin tarsha clinically not behaving as gram-negative MRSA and not scabies 2-patient with a penicillin allergy therapeutic with number of antibiotics safe to use 3-patient was noticed to have more erythema to the right lower extremity we will discontinue cefazolin and start the patient on vancomycin if improvement may be able to finish therapy with oral Zyvox discussed with admitting team on the phone Dictation was produced using [employer] dictation software. please excuse any grammatical, word or spelling errors. Time with Patient: Less than 30
[2024-01-23] MEDS: VANCOMYCIN 1,750 MG in SODIUM CHLORIDE 0.9% 500 ML 500 ML IVPB SCH (12:42)
--- NOTE | 2024-01-23 17:01 | P.PN ---
Progress Note - Text Progress Note Date: 01/23/24 Chief Complaint: Worsening wounds This is a [address] Chavez. Chronic stable medical conditions include COPD, fibromyalgia, hypertension, osteoarthritis, chronic pancreatitis from alcoholism, peripheral neuropathy varicose veins, restless leg syndrome, B PH surgery, Alvarenga's esophagus and chronic low back pain from osteoarthritis. Alcohol cirrhosis. . cardioversion done for atrial fibrillation in March 2022. Patient has multiple wounds on the upper and lower extremity from scratching. Seen by ID. Does not feel it scabies. Patient was last in the hospital in September of this year. He does follow with the wound care center by Dr. Lyon. He was discharged there from a week ago as his lower extremity wounds are doing well. He applied what he was told to do on the lower extremity wound. But it became again red and weepy. Decided to c ome in. No fever no chills. Patient still continues to itch himself all of the body. He does have pain at the lower extremity. Appetite is fair. Bowel movements are fair. Lives at home with his sister. Smoking about 2 cigarettes a week. January 20: Seen by ID. Venous stasis ulcers with secondary cellulitis. Local care with Mycolog cream has been started. Also on IV Ancef. Cultures pending. Eating well. Patient told to clip his nails. January 21: Eating well. On IV Ancef. Local care is Mycolog. Patient does not think it is improving currently. Afebrile January 22: Because of some worsening of reddening in the lower extremity Dr. Lopez from ID changed the patient over to vancomycin. Other medications to continue.. Patient again reminded not to scratch. Eating well. Bowel movement yes. Active Medications Albuterol Sulfate (Albuterol Nebulized 2.5 Mg/3 Ml) 2.5 mg INHALATION RT-TID [facility] Last Admin: 01/23/24 12:12 Dose: 2.5 mg Allopurinol (Allopurinol 300 Mg Tab) 300 mg PO DAILY@0600 [facility] Last Admin: 01/23/24 05:40 Dose: 300 mg Apixaban (Apixaban 5 Mg Tab) 5 mg PO BID@0600,1800 [facility]; Protocol Last Admin: 01/23/24 05:40 Dose: 5 mg Aripiprazole (Aripiprazole 5 Mg Tab) 5 mg PO DAILY@0600 [facility] Last Admin: 01/23/24 05:40 Dose: 5 mg Atorvastatin Calcium (Atorvastatin 40 Mg Tab) 40 mg PO HS@1800 [facility] Last Admin: 01/22/24 17:24 Dose: 40 mg Budesonide/Formoterol Fumarate (Symbicort 160-4.5 Mcg Inhaler) 2 puff INHALATION RT-BID@0600,1800 [facility] Last Admin: 01/23/24 09:29 Dose: 2 puff Cyclobenzaprine HCl (Cyclobenzaprine 10 Mg Tab) 10 mg PO TID@0600,1200,1800 [facility] Last Admin: 01/23/24 12:44 Dose: 10 mg Dapagliflozin (Dapagliflozin Propanediol 5 Mg Tablet) 5 mg PO DAILY@1200 [facility] Last Admin: 01/23/24 12:44 Dose: 5 mg Ferrous Sulfate (Ferrous Sulfate 325 Mg Tab) 325 mg PO DAILY@1200 [facility] Last Admin: 01/23/24 12:44 Dose: 325 mg Folic Acid (Folic Acid 1 Mg Tab) 1 mg PO DAILY@1200 [facility] Last Admin: 01/23/24 12:44 Dose: 1 mg Vancomycin HCl 1,750 mg/ (Sodium Chloride) 500 mls @ 167 mls/hr IVPB Q12H [facility] Last Admin: 01/23/24 12:42 Dose: 167 mls/hr Latanoprost (Latanoprost 0.005% Ophth Drops 2.5 Ml Btl) 1 drops BOTH EYES [facility] Last Admin: 01/22/24 20:46 Dose: 1 drops Lidocaine (Lidocaine 4% Patch) 1 patch TOPICAL DAILY PRN PRN Reason: Pain Loratadine (Loratadine 10 Mg Tab) 5 mg PO BID@0600,1800 [facility] Last Admin: 01/23/24 05:40 Dose: 5 mg Metoprolol Tartrate (Metoprolol Tartrate 50 Mg Tab) 50 mg PO BID@0600,1800 [facility] Last Admin: 01/23/24 05:40 Dose: 50 mg Montelukast Sodium (Montelukast 10 Mg Tab) 10 mg PO DAILY@1200 [facility] Last Admin: 01/23/24 12:44 Dose: 10 mg Naloxone HCl (Naloxone 0.4 Mg/Ml 1 Ml Vial) 0.2 mg IV Q2M PRN PRN Reason: Opioid Reversal Nystatin (Nystatin 100,000 Unit/Ml Susp 500,000 Unit/5 Ml Cup) 500,000 unit PO QID [facility]; Protocol Last Admin: 01/23/24 12:43 Dose: 500,000 unit Nystatin (Nystatin 100,000unit/Gm Cream 30 Gm Tube) 1 applic TOPICAL BID [facility]; Protocol Last Admin: 01/23/24 12:42 Dose: 1 applic Oxycodone/Acetaminophen (Oxycodone-Apap 10-325mg 1 Each Tab) 1 each PO BID [facility] Last Admin: 01/23/24 09:37 Dose: 1 each Pantoprazole Sodium (Pantoprazole 40 Mg Tablet) 40 mg PO BID@0600,1800 [facility] Last Admin: 01/23/24 05:40 Dose: 40 mg Ropinirole HCl (Ropinirole Hcl 4 Mg Tablet) 4 mg PO HS [facility] Last Admin: 01/22/24 20:42 Dose: 4 mg Spironolactone (Spironolactone 25 Mg Tab) 25 mg PO DAILY [facility] Last Admin: 01/23/24 09:39 Dose: 25 mg Tamsulosin HCl (Tamsulosin 0.4 Mg Cap.Er.24h) 0.4 mg PO DAILY@1200 [facility] Last Admin: 01/23/24 12:44 Dose: 0.4 mg Triamcinolone Acetonide (Triamcinolone Acet 0.5% Cream 15 Gm Tube) 1 applic TOPICAL BID [facility]; Protocol Last Admin: 01/23/24 12:42 Dose: 1 applic Past medical history to include: COPD, fibromyalgia, hypertension, osteoarthritis, chronic pancreatitis from alcoholism, peripheral neuropathy, varicose pains, restless leg syndrome, BPH with surgery, Alvarenga's esophagus, chronic low back pain from osteoarthritis, alcohol use disorder with cirrhosis, atrial fibrillation with ablation-went back into atrial fibrillation Social history: lives with his sister Ewelina. Smoked for close to 42 years. Down to few cigarettes a week.. Drinking alcohol for years. Stopped February 2022 Physical examination: VITAL SIGNS: 98.4, 77, 16, 143/84, 98% room air GENERAL: A bit anxious scattered scratch de la cruz. With superficial bleeding at places. EYES: Pupils equal. Conjunctiva normal. HEENT: External appearance of nose and ears normal, oral cavity grossly normal. NECK: JVD raised; masses not palpable. HEART: Heart sounds irregular; edema. LUNGS: Respiratory rate increased l; decreased breath sounds ABDOMEN: Soft, , nontender, liver spleen not palpable, no masses palpable. diva rification of recti . PSYCH: Alert and oriented x3; mood and affect anxiousl. MUSCULOSKELETAL:No Clubbing/cyanosis;muscles-grossly intact. evidence of OA DERMATOLOGICAL: Several scattered areas of scratch de la cruz. Redness right lower extremity mid lower leg down to the ankle-. INVESTIGATIONS, reviewed in the clinical context: January 20: White count 7 hemoglobin 12.5 platelets 215 potassium 3.7 creatinine 1 January 20, 2024: White count 10.1 hemoglobin 13.9 platelets 243 sodium 134 potassium 3 creatinine 0.88 Assessment and plan: -Acute on chronic right lower extremity/foot dorsum cellulitis, secondary to venous stasis. Patient normally follows at the wound center and was discharge by Dr. Lyon a week ago. ID-Mycolog cream twice daily. IV Ancef-changed to IV vancomycin -COPD in a cigarette smoker Symbicort, Ventolin -Paroxysmal atrial flutter fibrillation a prior history of ablation cardioversion after that.: Now back in atrial fibrillation. Eliquis-. Lopressor 50 p.o. twice daily -chronic congestive heart failure that from systolic and diastolic dysfunction EF 40 % Aldactone fluid restriction - chronic pancreatitis from alcoholism: -Alcohol-induced cirrhosis: Aldactone. Fluid restriction -Chronic fibromyalgia Flexeril 10 mg 3 times a day -Essential hypertension, Lopressor 50 mg twice daily -Primary osteoarthritis, multiple joints bilaterally Pain medications as needed -Alcoholic peripheral neuropathy -restless leg syndrome Requip 4 mg daily at bedtime -Alvarenga's esophagus Protonix 40 mg a day -Full code. IV Ancef changed to IV vancomycin. Medication to continue. Follow-up with ID. Past Medical History Past Medical History: Atrial Fibrillation, Coronary Artery Disease (CAD), Heart Failure, COPD, Diabetes Mellitus, Eye Disorder, Fibromyalgia, Hypertension, Myocardial Infarction ([place]), Musculoskeletal Disorder, Osteoarthritis (OA), Prostate Disorder, Vascular Disorder Additional Past Medical History / Comment(s): Chronic cough, hx pancreatitis, bilateral glaucoma, neuropathy bilateral feet, poor circulation to legs, varicose veins, RLS, hx BPH, colitis, gastritis, Alvarenga's esophagus, hx Shingles in 2012 with joint pain since, chronic low back pain, DDD. wound to right leg, scabies 06/2023 Last Myocardial Infarction Date:: 09/02/16 History of Any Multi-Drug Resistant Organisms: None Reported Past Surgical History: Appendectomy, Cardiac Ablation, Heart Catheterization, Joint Replacement, Orthopedic Surgery, Prostate Surgery Additional Past Surgical History / Comment(s): Right knee arthroscopy, right knee replacement, EGD, colonoscopy, TURP, cardioversion. Past Anesthesia/Blood Transfusion Reactions: No Reported Reaction Additional Past Anesthesia/Blood Transfusion Reaction / Comment(s): No hx blood transfusion. Past Psychological History: Anxiety, Depression Smoking Status: Former smoker Past Alcohol Use History: Occasional Past Drug Use History: Cocaine
[2024-01-23] MEDS: IPRATROPIUM-ALBUTEROL 3 ML NEB INHALATION PRN (22:31)
[2024-01-24 06:39] LABS: African American GFR (CKD) >90 (>60 ml/min/1.73 sqM); Non-African American GFR(CKD) >90 (>60 ml/min/1.73 sqM)
--- NOTE | 2024-01-24 16:47 | P.PN ---
Subjective Progress Note Date: 01/24/24 Principal diagnosis: Reason for follow-up is bilateral lower extremity cellulitis Patient is a 63-year-old male with a past medical history significant for coronary artery disease diabetes mellitus heart failure atrial fibrillation [place] osteoarthritis, presented to hospital worsening swelling redness of bilateral lower extremity. On today's evaluation that is 01/24/2024, Patient is afebrile patient is currently on room air and denies having any shortness of breath, the patient denies any chest pain or cough, the patient denies any nausea vomiting no abdominal pain or diarrhea still complaining of swelling to the lower extremity with redness also complaining of back pain and has been complaining about his pain medication being cut off and wants the medication to be adjusted up patient also refused the vancomycin as reported by the nursing staff saying it causes swelling in his lower extremity. Patient denies any itching to the lower extremity on the rash area has been complaining of mostly burning pain to the right lower extremity Patient white count is 7.02, creatinine 1.0 blood culture with staph epi Objective - Vital Signs Vital signs: Vital Signs Temp 97.7 F 01/24/24 07:30 Pulse 86 01/24/24 13:03 Resp 18 01/24/24 07:30 BP 150/86 01/24/24 07:30 Pulse Ox 96 01/24/24 07:30 FiO2 Intake & Output 01/23/24 01/24/24 01/24/24 18:59 06:59 18:59 Intake Total 500 Balance 500 Intake: Oral 500 Other: Voiding Method Urinal # Bowel Movements 0 - Exam Middle-age male lying in bed in no distress Unlabored breathing, decreased intensity breath sound Abdomen soft no tenderness Right lower extremity was noted to have more swelling and redness today no drainage Exam completed with help of [employer] - Labs CBC & Chem 7: 01/21/24 05:56 01/24/24 05:59 Labs: Microbiology - Last 24 Hours (Table) 01/20/24 05:27 Blood Culture - Preliminary Blood 01/20/24 05:12 Blood Culture Gram Stain - Final Blood Blood Culture - Final Staphylococcus epidermidis Molecular ID Assessment and Plan (1) Cellulitis of both lower extremities Current Visit: Yes Status: Acute Code(s): L03.115 - CELLULITIS OF RIGHT LOWER LIMB; L03.116 - CELLULITIS OF LEFT LOWER LIMB SNOMED Code(s): 400869731 Plan: This is a telehealth visit 1patient with bilateral lower extremity likely venous stasis ulcer with secondary cellulitis with diffuse swelling redness likely cellulitis from a gram-positive skin tarsha clinically not behaving as gram-negative MRSA and not s cabies 2-patient with a penicillin allergy therapeutic with number of antibiotics safe to use 3-patient was noticed to have more erythema to the right lower extremity and antibiotic was switched to vancomycin which unfortunately patient has refused as the patient is on SSRI we cannot use the Zyvox antibiotic has been switched over to daptomycin and if improvement may be able to finish therapy with a short course of oral doxycycline on discharge Dictation was produced using [employer] dictation software. please excuse any grammatical, word or spelling errors. Time with Patient: Less than 30
--- NOTE | 2024-01-24 16:57 | P.PN ---
Progress Note - Text Progress Note Date: 01/24/24 Chief Complaint: Worsening wounds This is a [address] Chavez. Chronic stable medical conditions include COPD, fibromyalgia, hypertension, osteoarthritis, chronic pancreatitis from alcoholism, peripheral neuropathy varicose veins, restless leg syndrome, B PH surgery, Alvarenga's esophagus and chronic low back pain from osteoarthritis. Alcohol cirrhosis. . cardioversion done for atrial fibrillation in March 2022. Patient has multiple wounds on the upper and lower extremity from scratching. Seen by ID. Does not feel it scabies. Patient was last in the hospital in September of this year. He does follow with the wound care center by Dr. Lyon. He was discharged there from a week ago as his lower extremity wounds are doing well. He applied what he was told to do on the lower extremity wound. But it became again red and weepy. Decided to c ome in. No fever no chills. Patient still continues to itch himself all of the body. He does have pain at the lower extremity. Appetite is fair. Bowel movements are fair. Lives at home with his sister. Smoking about 2 cigarettes a week. January 20: Seen by ID. Venous stasis ulcers with secondary cellulitis. Local care with Mycolog cream has been started. Also on IV Ancef. Cultures pending. Eating well. Patient told to clip his nails. January 21: Eating well. On IV Ancef. Local care is Mycolog. Patient does not think it is improving currently. Afebrile January 22: Because of some worsening of reddening in the lower extremity Dr. Lopez from ID changed the patient over to vancomycin. Other medications to continue.. Patient again reminded not to scratch. Eating well. Bowel movement yes. January 23: Patient declined vancomycin. ID then reviewed the case and switch the patient over to daptomycin. Will see how that goes. Patient was again reminded he does not have scabies as per ID. Patient's sister is visiting. Told her to bring us a pair of clippers to clip his nails. Active Medications Acetaminophen (Acetaminophen Tab 325 Mg Tab) 650 mg PO Q4HR PRN PRN Reason: Fever and/ or Mild Pain Albuterol Sulfate (Albuterol Nebulized 2.5 Mg/3 Ml) 2.5 mg INHALATION RT-TID [place] Last Admin: 01/24/24 12:53 Dose: 2.5 mg Albuterol/Ipratropium (Ipratropium-Albuterol 3 Ml Neb) 3 ml INHALATION RT-QID PRN PRN Reason: Shortness Of Breath Or Wheezing Last Admin: 01/23/24 22:31 Dose: 3 ml Allopurinol (Allopurinol 300 Mg Tab) 300 mg PO DAILY@0600 [facility] Last Admin: 01/24/24 06:24 Dose: 300 mg Apixaban (Apixaban 5 Mg Tab) 5 mg PO BID@0600,1800 [facility]; Protocol Last Admin: 01/24/24 06:23 Dose: 5 mg Aripiprazole (Aripiprazole 5 Mg Tab) 5 mg PO DAILY@0600 [facility] Last Admin: 01/24/24 06:24 Dose: 5 mg Budesonide/Formoterol Fumarate (Symbicort 160-4.5 Mcg Inhaler) 2 puff INHALATION RT-BID@0600,1800 [facility] Last Admin: 01/24/24 09:14 Dose: 2 puff Cyclobenzaprine HCl (Cyclobenzaprine 10 Mg Tab) 10 mg PO TID@0600,1200,1800 [facility] Last Admin: 01/24/24 12:10 Dose: 10 mg Dapagliflozin (Dapagliflozin Propanediol 5 Mg Tablet) 5 mg PO DAILY@1200 [facility] Last Admin: 01/24/24 12:11 Dose: 5 mg Ferrous Sulfate (Ferrous Sulfate 325 Mg Tab) 325 mg PO DAILY@1200 [facility] Last Admin: 01/24/24 12:11 Dose: 325 mg Folic Acid (Folic Acid 1 Mg Tab) 1 mg PO DAILY@1200 [facility] Last Admin: 01/24/24 12:10 Dose: 1 mg Daptomycin 350 mg/ Sodium (Chloride) 50 mls @ 100 mls/hr IVPB Q24H [facility]; Protocol Latanoprost (Latanoprost 0.005% Ophth Drops 2.5 Ml Btl) 1 drops BOTH EYES HS [facility] Last Admin: 01/23/24 20:38 Dose: 1 drops Lidocaine (Lidocaine 4% Patch) 1 patch TOPICAL DAILY PRN PRN Reason: Pain Loratadine (Loratadine 10 Mg Tab) 5 mg PO BID@0600,1800 [facility] Last Admin: 01/24/24 06:23 Dose: 5 mg Metoprolol Tartrate (Metoprolol Tartrate 50 Mg Tab) 50 mg PO BID@0600,1800 [facility] Last Admin: 01/24/24 06:23 Dose: 50 mg Montelukast Sodium (Montelukast 10 Mg Tab) 10 mg PO DAILY@1200 [facility] Last Admin: 01/24/24 12:11 Dose: 10 mg Naloxone HCl (Naloxone 0.4 Mg/Ml 1 Ml Vial) 0.2 mg IV Q2M PRN PRN Reason: Opioid Reversal Nystatin (Nystatin 100,000 Unit/Ml Susp 500,000 Unit/5 Ml Cup) 500,000 unit PO QID [facility]; Protocol Last Admin: 01/24/24 12:12 Dose: 500,000 unit Nystatin (Nystatin 100,000unit/Gm Cream 30 Gm Tube) 1 applic TOPICAL BID [facility]; Protocol Last Admin: 01/24/24 09:06 Dose: Not Given Oxycodone/Acetaminophen (Oxycodone-Apap 10-325mg 1 Each Tab) 1 each PO BID [facility] Last Admin: 01/24/24 09:04 Dose: 1 each Pantoprazole Sodium (Pantoprazole 40 Mg Tablet) 40 mg PO BID@0600,1800 [facility] Last Admin: 01/24/24 06:23 Dose: 40 mg Ropinirole HCl (Ropinirole Hcl 4 Mg Tablet) 4 mg PO HS [facility] Last Admin: 01/23/24 20:36 Dose: 4 mg Spironolactone (Spironolactone 25 Mg Tab) 25 mg PO DAILY [facility] Last Admin: 01/24/24 09:04 Dose: 25 mg Tamsulosin HCl (Tamsulosin 0.4 Mg Cap.Er.24h) 0.4 mg PO DAILY@1200 [facility] Last Admin: 01/24/24 12:11 Dose: 0.4 mg Triamcinolone Acetonide (Triamcinolone Acet 0.5% Cream 15 Gm Tube) 1 applic TOPICAL BID [facility]; Protocol Last Admin: 01/24/24 09:06 Dose: Not Given Past medical history to include: COPD, fibromyalgia, hypertension, osteoarthritis, chronic pancreatitis from alcoholism, peripheral neuropathy, varicose pains, restless leg syndrome, BPH with surgery, Alvarenga's esophagus, chronic low back pain from osteoarthritis, alcohol use disorder with cirrhosis, atrial fibrillation with ablation-went back into atrial fibrillation Social history: lives with his sister Ewelina. Smoked for close to 42 years. Down to few cigarettes a week.. Drinking alcohol for years. Stopped February 2022 Physical examination: VITAL SIGNS: 98, 104, 17, 153 x 87, 95% room air GENERAL: A bit anxious scattered scratch de la cruz. With superficial bleeding at places. EYES: Pupils equal. Conjunctiva normal. HEENT: External appearance of nose and ears normal, oral cavity grossly normal. NECK: JVD raised; masses not palpable. HEART: Heart sounds irregular; edema. LUNGS: Respiratory rate increased l; decreased breath sounds ABDOMEN: Soft, , nontender, liver spleen not palpable, no masses palpable. divarification of recti . PSYCH: Alert and oriented x3; mood and affect anxiousl. MUSCULOSKELETAL:No Clubbing/cyanosis;muscles-grossly intact. evidence of OA DERMATOLOGICAL: Several scattered areas of scratch de la cruz. Redness right lower extremity mid lower leg down to the ankle-. INVESTIGATIONS, reviewed in the clinical context: January 20: White count 7 hemoglobin 12.5 platelets 215 potassium 3.7 creatinine 1 January 20, 2024: White count 10.1 hemoglobin 13.9 platelets 243 sodium 134 potassium 3 creatinine 0.88 Assessment and plan: -Acute on chronic right lower extremity/foot dorsum cellulitis, secondary to venous stasis. Patient normally follows at the wound center and was discharge by Dr. Lyon a week ago. ID-Mycolog cream twice daily. IV Ancef-changed to IV vancomycin -COPD in a cigarette smoker Symbicort, Ventolin -Paroxysmal atrial flutter fibrillation a prior history of ablation cardioversion after that.: Now back in atrial fibrillation. Eliquis-. Lopressor 50 p.o. twice daily -chronic congestive heart failure that from systolic and diastolic dysfunction EF 40 % Aldactone fluid restriction - chronic pancreatitis from alcoholism: -Alcohol-induced cirrhosis: Aldactone. Fluid restriction -Chronic fibromyalgia Flexeril 10 mg 3 times a day -No scabies per ID -Essential hypertension, Lopressor 50 mg twice daily -Primary osteoarthritis, multiple joints bilaterally Pain medications as needed -Alcoholic peripheral neuropathy -restless leg syndrome Requip 4 mg daily at bedtime -Alvarenga's esophagus Protonix 40 mg a day -Full code. IV vancomycin changed over to IV daptomycin as patient not taking the same. Other medications to continue. Past Medical History Past Medical History: Atrial Fibrillation, Coronary Artery Disease (CAD), Heart Failure, COPD, Diabetes Mellitus, Eye Disorder, Fibromyalgia, Hypertension, Myocardial Infarction ([place]), Musculoskeletal Disorder, Osteoarthritis (OA), Prostate Disorder, Vascular Disorder Additional Past Medical History / Comment(s): Chronic cough, hx pancreatitis, bilateral glaucoma, neuropathy bilateral feet, poor circulation to legs, varicose veins, RLS, hx BPH, colitis, gastritis, Alvarenga's esophagus, hx Shingles in 2013 with joint pain since, chronic low back pain, DDD. wound to right leg, scabies 06/2023 Last Myocardial Infarction Date:: 09/02/16 History of Any Multi-Drug Resistant Organisms: None Reported Past Surgical History: Appendectomy, Cardiac Ablation, Heart Catheterization, Joint Replacement, Orthopedic Surgery, Prostate Surgery Additional Past Surgical History / Comment(s): Right knee arthroscopy, right knee replacement, EGD, colonoscopy, TURP, cardioversion. Past Anesthesia/Blood Transfusion Reactions: No Reported Reaction Additional Past Anesthesia/Blood Transfusion Reaction / Comment(s): No hx blood transfusion. Past Psychological History: Anxiety, Depression Smoking Status: Former smoker Past Alcohol Use History: Occasional Past Drug Use History: Cocaine
[2024-01-24] MEDS: DAPTOmycin 350 MG in SODIUM CHLORIDE 0.9% 50 ML IVPB SCH (18:46)
[2024-01-25] MEDS: ACETAMINOPHEN TAB 325 MG TAB PO PRN (02:23)
[2024-01-25 06:38] LABS: Basophils # (A) 0.1 k/uL (0-0.2); Basophils % (A) 1 %; Eosinophils # (A) 0.2 k/uL (0-0.7); Eosinophils % (A) 2 %; HCT 36.5 % (39.0-53.0); HGB 11.5 gm/dL (13.0-17.5); Lymphocytes # (A) 1.1 k/uL (1.0-4.8); Lymphocytes % (A) 11 %; MCH 30.5 pg (25.0-35.0); MCHC 31.5 g/dL (31.0-37.0); MCV 96.7 fL (80.0-100.0); Mean Platelet Volume 7.6; Monocytes # (A) 0.6 k/uL (0-1.0); Monocytes % (A) 7 %; Neutrophils # (A) 7.2 k/uL (1.3-7.7); Neutrophils % (A) 77 %; Platelet Count 248 k/uL (150-450); RBC 3.78 m/uL (4.30-5.90); WBC 9.3 k/uL (3.8-10.6)
[2024-01-25 07:08] LABS: ALT 16 U/L (4-49); AST 21 U/L (17-59); African American GFR (CKD) >90 (>60 ml/min/1.73 sqM); Albumin 3.2 g/dL (3.5-5.0); Albumin/Globulin Ratio 1.2; Alkaline Phosphatase 88 U/L (38-126); Anion Gap 6 mmol/L; Blood Urea Nitrogen 12 mg/dL (9-20); Calcium 9.1 mg/dL (8.4-10.2); Carbon Dioxide 22 mmol/L (22-30); Chloride 111 mmol/L (98-107); Globulin 2.6 g/dL; Glucose 130 mg/dL (74-99); Non-African American GFR(CKD) >90 (>60 ml/min/1.73 sqM); Potassium 4.4 mmol/L (3.5-5.1); Sodium 139 mmol/L (137-145); Total Bilirubin 1.1 mg/dL (0.2-1.3); Total Protein 5.8 g/dL (6.3-8.2)
[2024-01-25 13:05] VITALS: BMI 30.2
[2024-01-25] MEDS: oxyCODONE-APAP 5-325MG 1 EACH TAB PO PRN (15:16)
--- NOTE | 2024-01-25 19:27 | P.PN ---
Progress Note - Text Progress Note Date: 01/25/24 Chief Complaint: Worsening wounds This is a [address] Chavez. Chronic stable medical conditions include COPD, fibromyalgia, hypertension, osteoarthritis, chronic pancreatitis from alcoholism, peripheral neuropathy varicose veins, restless leg syndrome, B PH surgery, Alvarenga's esophagus and chronic low back pain from osteoarthritis. Alcohol cirrhosis. . cardioversion done for atrial fibrillation in March 2022. Patient has multiple wounds on the upper and lower extremity from scratching. Seen by ID. Does not feel it scabies. Patient was last in the hospital in September of this year. He does follow with the wound care center by Dr. Lyon. He was discharged there from a week ago as his lower extremity wounds are doing well. He applied what he was told to do on the lower extremity wound. But it became again red and weepy. Decided to c ome in. No fever no chills. Patient still continues to itch himself all of the body. He does have pain at the lower extremity. Appetite is fair. Bowel movements are fair. Lives at home with his sister. Smoking about 2 cigarettes a week. January 20: Seen by ID. Venous stasis ulcers with secondary cellulitis. Local care with Mycolog cream has been started. Also on IV Ancef. Cultures pending. Eating well. Patient told to clip his nails. January 21: Eating well. On IV Ancef. Local care is Mycolog. Patient does not think it is improving currently. Afebrile January 22: Because of some worsening of reddening in the lower extremity Dr. Lopez from ID changed the patient over to vancomycin. Other medications to continue.. Patient again reminded not to scratch. Eating well. Bowel movement yes. January 23: Patient declined vancomycin. ID then reviewed the case and switch the patient over to daptomycin. Will see how that goes. Patient was again reminded he does not have scabies as per ID. Patient's sister is visiting. Told her to bring us a pair of clippers to clip his nails. January 24: Patient doing better with daptomycin. Redness is gone down. Discussed with ID. Continue 1 more day. Hopefully discharge tomorrow. Again patient told reminded to not scratch his wounds. Which she continues to do so. Active Medications Acetaminophen (Acetaminophen Tab 325 Mg Tab) 650 mg PO Q4HR PRN PRN Reason: Fever and/ or Mild Pain Last Admin: 01/25/24 02:23 Dose: 650 mg Albuterol Sulfate (Albuterol Nebulized 2.5 Mg/3 Ml) 2.5 mg INHALATION RT-TID [facility] Last Admin: 01/25/24 15:00 Dose: 2.5 mg Albuterol/Ipratropium (Ipratropium-Albuterol 3 Ml Neb) 3 ml INHALATION RT-QID PRN PRN Reason: Shortness Of Breath Or Wheezing Last Admin: 01/25/24 05:45 Dose: 3 ml Allopurinol (Allopurinol 300 Mg Tab) 300 mg PO DAILY@0600 [facility] Last Admin: 01/25/24 05:38 Dose: 300 mg Apixaban (Apixaban 5 Mg Tab) 5 mg PO BID@0600,1800 [facility]; Protocol Last Admin: 01/25/24 17:32 Dose: 5 mg Aripiprazole (Aripiprazole 5 Mg Tab) 5 mg PO DAILY@0600 [facility] Last Admin: 01/25/24 05:38 Dose: 5 mg Budesonide/Formoterol Fumarate (Symbicort 160-4.5 Mcg Inhaler) 2 puff INHALATION RT-BID@0600,1800 [facility] Last Admin: 01/25/24 08:52 Dose: Not Given Cyclobenzaprine HCl (Cyclobenzaprine 10 Mg Tab) 10 mg PO TID@0600,1200,1800 [facility] Last Admin: 01/25/24 17:32 Dose: 10 mg Dapagliflozin (Dapagliflozin Propanediol 5 Mg Tablet) 5 mg PO DAILY@1200 [facility] Last Admin: 01/25/24 12:44 Dose: 5 mg Ferrous Sulfate (Ferrous Sulfate 325 Mg Tab) 325 mg PO DAILY@1200 [facility] Last Admin: 01/25/24 12:45 Dose: 325 mg Folic Acid (Folic Acid 1 Mg Tab) 1 mg PO DAILY@1200 [facility] Last Admin: 01/25/24 12:44 Dose: 1 mg Daptomycin 350 mg/ Sodium (Chloride) 50 mls @ 100 mls/hr IVPB Q24H [facility]; Protocol Last Admin: 01/25/24 12:45 Dose: 100 mls/hr Latanoprost (Latanoprost 0.005% Ophth Drops 2.5 Ml Btl) 1 drops BOTH EYES HS [facility] Last Admin: 01/24/24 20:54 Dose: 1 drops Lidocaine (Lidocaine 4% Patch) 1 patch TOPICAL DAILY PRN PRN Reason: Pain Loratadine (Loratadine 10 Mg Tab) 5 mg PO BID@0600,1800 [facility] Last Admin: 01/25/24 17:32 Dose: 5 mg Metoprolol Tartrate (Metoprolol Tartrate 50 Mg Tab) 50 mg PO BID@0600,1800 [facility] Last Admin: 01/25/24 17:32 Dose: 50 mg Montelukast Sodium (Montelukast 10 Mg Tab) 10 mg PO DAILY@1200 [facility] Last Admin: 01/25/24 12:44 Dose: 10 mg Naloxone HCl (Naloxone 0.4 Mg/Ml 1 Ml Vial) 0.2 mg IV Q2M PRN PRN Reason: Opioid Reversal Nystatin (Nystatin 100,000 Unit/Ml Susp 500,000 Unit/5 Ml Cup) 500,000 unit PO QID [facility]; Protocol Last Admin: 01/25/24 17:33 Dose: Not Given Nystatin (Nystatin 100,000unit/Gm Cream 30 Gm Tube) 1 applic TOPICAL BID [facility]; Protocol Last Admin: 01/25/24 08:51 Dose: Not Given Oxycodone/Acetaminophen (Oxycodone-Apap 5-325mg 1 Each Tab) 1 each PO Q6HR PRN PRN Reason: Pain Last Admin: 01/25/24 15:16 Dose: 1 each Pantoprazole Sodium (Pantoprazole 40 Mg Tablet) 40 mg PO BID@0600,1800 [facility] Last Admin: 01/25/24 17:32 Dose: 40 mg Ropinirole HCl (Ropinirole Hcl 4 Mg Tablet) 4 mg PO HS [facility] Last Admin: 01/24/24 20:53 Dose: 4 mg Spironolactone (Spironolactone 25 Mg Tab) 25 mg PO DAILY [facility] Last Admin: 01/25/24 08:50 Dose: 25 mg Tamsulosin HCl (Tamsulosin 0.4 Mg Cap.Er.24h) 0.4 mg PO DAILY@1200 [facility] Last Admin: 01/25/24 12:45 Dose: 0.4 mg Triamcinolone Acetonide (Triamcinolone Acet 0.5% Cream 15 Gm Tube) 1 applic TOPICAL BID [facility]; Protocol Last Admin: 01/25/24 08:51 Dose: Not Given Past medical history to include: COPD, fibromyalgia, hypertension, osteoarthritis, chronic pancreatitis from alcoholism, peripheral neuropathy, varicose pains, restless leg syndrome, BPH with surgery, Alvarenga's esophagus, chronic low back pain from osteoarthritis, alcohol use disorder with cirrhosis, atrial fibrillation with ablation-went back into atrial fibrillation Social history: lives with his sister Ewelina. Smoked for close to 42 years. Down to few cigarettes a week.. Drinking alcohol for years. Stopped February 2022 Physical examination: VITAL SIGNS: 98.3, 70, 16, 153 x 97, 95% room air GENERAL: A bit anxious scattered scratch de la cruz. With superficial bleeding at places. EYES: Pupils equal. Conjunctiva normal. HEENT: External appearance of nose and ears normal, oral cavity grossly normal. NECK: JVD raised; masses not palpable. HEART: Heart sounds irregular; edema. LUNGS: Respiratory rate increased l; decreased breath sounds ABDOMEN: Soft, , nontender, liver spleen not palpable, no masses palpable. divarification of recti . PSYCH: Alert and oriented x3; mood and affect anxiousl. MUSCULOSKELETAL:No Clubbing/cyanosis;muscles-grossly intact. evidence of OA DERMATOLOGICAL: Several scattered areas of scratch de la cruz. Decreased redness to lower extremity, with superficial wounds. While I started the patient saw the patient picking at his wounds INVESTIGATIONS, reviewed in the clinical context: January 24: White count 9.3 hemoglobin 11.5 potassium 4.4 creatinine 0.74 January 20: White count 7 hemoglobin 12.5 platelets 215 potassium 3.7 creatinine 1 January 20, 2024: White count 10.1 hemoglobin 13.9 platelets 243 sodium 134 potassium 3 creatinine 0.88 Assessment and plan: -Acute on chronic right lower extremity/foot dorsum cellulitis, secondary to venous stasis.: Improving Patient normally follows at the wound center and was discharge by Dr. Lyon a week ago. ID-Mycolog cream twice daily. IV Ancef-changed to IV vancomycin-the latter which patient did not take IV vancomycin switched over to IV daptomycin to which patient is responding -COPD in a cigarette smoker Symbicort, Ventolin -Paroxysmal atrial flutter fibrillation a prior history of ablation cardioversion after that.: Now back in atrial fibrillation. Eliquis-. Lopressor 50 p.o. twice daily -chronic congestive heart failure that from systolic and diastolic dysfunction EF 40 % Aldactone fluid restriction - chronic pancreatitis from alcoholism: -Alcohol-induced cirrhosis: Aldactone. Fluid restriction -Chronic fibromyalgia Flexeril 10 mg 3 times a day -No scabies per ID -Essential hypertension, Lopressor 50 mg twice daily -Primary osteoarthritis, multiple joints bilaterally Pain medications as needed -Alcoholic peripheral neuropathy -restless leg syndrome Requip 4 mg daily at bedtime -Alvarenga's esophagus Protonix 40 mg a day -Full code. Doing better with IV daptomycin. Again patient reminded not to scratch. Hoping for possible discharge tomorrow Past Medical History Past Medical History: Atrial Fibrillation, Coronary Artery Disease (CAD), Heart Failure, COPD, Diabetes Mellitus, Eye Disorder, Fibromyalgia, Hypertension, Myocardial Infarction ([place]), Musculoskeletal Disorder, Osteoarthritis (OA), Pr ostate Disorder, Vascular Disorder Additional Past Medical History / Comment(s): Chronic cough, hx pancreatitis, bilateral glaucoma, neuropathy bilateral feet, poor circulation to legs, varicose veins, RLS, hx BPH, colitis, gastritis, Alvarenga's esophagus, hx Shingles in 2012 with joint pain since, chronic low back pain, DDD. wound to right leg, scabies 06/2023 Last Myocardial Infarction Date:: 09/02/16 History of Any Multi-Drug Resistant Organisms: None Reported Past Surgical History: Appendectomy, Cardiac Ablation, Heart Catheterization, Joint Replacement, Orthopedic Surgery, Prostate Surgery Additional Past Surgical History / Comment(s): Right knee arthroscopy, right knee replacement, EGD, colonoscopy, TURP, cardioversion. Past Anesthesia/Blood Transfusion Reactions: No Reported Reaction Additional Past Anesthesia/Blood Transfusion Reaction / Comment(s): No hx blood transfusion. Past Psychological History: Anxiety, Depression Smoking Status: Former smoker Past Alcohol Use History: Occasional Past Drug Use History: Cocaine
[2024-01-25] MEDS ORDERED: VANCOMYCIN TROUGH DUE 1 EACH MISC MISCELLANE ONE (22:00)
[2024-01-26 08:31] VITALS: BP 149/87; RESP 24; TEMP 97.5
[2024-01-26 10:37] VITALS: PULSE 93
--- NOTE | 2024-01-26 16:00 | P.DS ---
Providers Date of admission: 01/20/24 06:05 Expected date of discharge: 01/26/24 Attending physician: Jamal Tamayo Consults: 01/20/24 06:04 Consult Physician Urgent Consulting Provider: Pily Garland Consult Reason/Comments: lower extremity cellulitis Do you want consulting provider notified?: Yes Primary care physician: Albert Chavez [facility] Course: Chief Complaint: Worsening wounds This is a [address] Chavez. Chronic stable medical conditions include COPD, fibromyalgia, hypertension, osteoarthritis, chronic pancreatitis from alcoholism, peripheral neuropathy varicose veins, restless leg syndrome, BPH surgery, Alvarenga's esophagus and chronic low back pain from osteoarthritis. Alcohol cirrhosis. . cardioversion done for atrial fibrillation in March 2022. Patient has multiple wounds on the upper and lower extremity from scratching. Seen by ID. Does not feel it scabies. Patient was last in the hospital in September of this year. He does follow with the wound care center by Dr. Lyon. He was discharged there from a week ago as his lower extremity wounds are doing well. He applied what he was told to do on the lower extremity wound. But it became again red and weepy. Decided to come in. No fever no chills. Patient still continues to itch himself all of the body. He does have pain at the lower extremity. Appetite is fair. Bowel movements are fair. Lives at home with his sister. Smoking about 2 cigarettes a week. January 20: Seen by ID. Venous stasis ulcers with secondary cellulitis. Local care with Mycolog cream has been started. Also on IV Ancef. Cultures pending. Eating well. Patient told to clip his nails. January 21: Eating well. On IV Ancef. Local care is Mycolog. Patient does not think it is improving currently. Afebrile January 22: Because of some worsening of reddening in the lower extremity Dr. Lopez from ID changed the patient over to vancomycin. Other medications to continue.. Patient again reminded not to scratch. Eating well. Bowel movement yes. January 23: Patient declined vancomycin. ID then reviewed the case and switch the patient over to daptomycin. Will see how that goes. Patient was again reminded he does not have scabies as per ID. Patient's sister is visiting. Told her to bring us a pair of clippers to clip his nails. January 24: Patient doing better with daptomycin. Redness is gone down. Discussed with ID. Continue 1 more day. Hopefully discharge tomorrow. Again patient told reminded to not scratch his wounds. Which she continues to do so. January 25: Per ID patient to be discharged on Kenalog topical cream, doxycycline for 10 days. Patient takes [place] 10 twice a day at home. Will change that to [place] 5 4 times a day as needed. Patient again reminded about not scratching. Wound care to continue. Patient to follow-up with Dr. Twyla chavarria at the wound care center. Past medical history to include: COPD, fibromyalgia, hypertension, osteoarthritis, chronic pancreatitis from alcoholism, peripheral neuropathy, varicose pains, restless leg syndrome, BPH with surgery, Alvarenga's esophagus, chronic low back pain from osteoarthritis, alcohol use disorder with cirrhosis, atrial fibrillation with ablation-went back into atrial fibrillation Social history: lives with his sister Ewelina. Smoked for close to 42 years. Down to few ciga rettes a week.. Drinking alcohol for years. Stopped February 2022 Physical examination: VITAL SIGNS: 97.5, 93, 24, 149 / 87, 96% room air GENERAL: A bit anxious scattered scratch de la cruz. With superficial bleeding at places. EYES: Pupils equal. Conjunctiva normal. HEENT: External appearance of nose and ears normal, oral cavity grossly normal. NECK: JVD raised; masses not palpable. HEART: Heart sounds irregular; edema. LUNGS: Respiratory rate increased l; decreased breath sounds ABDOMEN: Soft, , nontender, liver spleen not palpable, no masses palpable. divarification of recti . PSYCH: Alert and oriented x3; mood and affect anxiousl. MUSCULOSKELETAL:No Clubbing/cyanosis;muscles-grossly intact. evidence of OA DERMATOLOGICAL: Several scattered areas of scratch de la cruz. Decreased redness to lower extremity, with superficial wounds. While I started the patient saw the patient picking at his wounds INVESTIGATIONS, reviewed in the clinical context: January 24: White count 9.3 hemoglobin 11.5 potassium 4.4 creatinine 0.74 January 20: White count 7 hemoglobin 12.5 platelets 215 potassium 3.7 creatinine 1 January 20, 2024: White count 10.1 hemoglobin 13.9 platelets 243 sodium 134 potassium 3 creatinine 0.88 Assessment and plan: -Acute on chronic right lower extremity/foot dorsum cellulitis, secondary to venous stasis.: Improving Patient normally follows at the wound center and was discharge by Dr. Lyon a week ago. ID-Mycolog cream twice daily. IV Ancef-changed to IV vancomycin-the latter which patient did not take IV vancomycin switched over to IV daptomycin to which patient is responding Discharged on Kenalog cream, doxycycline for 10 days and follow-up with Dr. Lyon at the wound care center -COPD in a cigarette smoker Symbicort, Ventolin -Paroxysmal atrial flutter fibrillation a prior history of ablation cardioversion after that.: Now back in atrial fibrillation. Eliquis-. Lopressor 50 p.o. twice daily -chronic congestive heart failure that from systolic and diastolic dysfunction EF 40 % Aldactone fluid restriction - chronic pancreatitis from alcoholism: -Alcohol-induced cirrhosis: Aldactone. Fluid restriction -Chronic fibromyalgia Flexeril 10 mg 3 times a day -No scabies per ID -Essential hypertension, Lopressor 50 mg twice daily -Primary osteoarthritis, multiple joints bilaterally Pain medications as needed -Alcoholic peripheral neuropathy -restless leg syndrome Requip 4 mg daily at bedtime -Alvarenga's esophagus Protonix 40 mg a day -Full code. Disposition: Home Past Medical History Past Medical History: Atrial Fibrillation, Coronary Artery Disease (CAD), Heart Failure, COPD, Diabetes Mellitus, Eye Disorder, Fibromyalgia, Hypertension, Myocardial Infarction (ND), Musculoskeletal Disorder, Osteoarthritis (OA), Prostate Disorder, Vascular Disorder Additional Past Medical History / Comment(s): Chronic cough, hx pancreatitis, bilateral glaucoma, neuropathy bilateral feet, poor circulation to legs, varicose veins, RLS, hx BPH, colitis, gastritis, Alvarenga's esophagus, hx Shingles in 2012 with joint pain since, chronic low back pain, DDD. wound to right leg, scabies 06/2023 Last Myocardial Infarction Date:: 09/02/16 History of Any Multi-Drug Resistant Organisms: None Reported Past Surgical History: Appendectomy, Cardiac Ablation, Heart Catheterization, Joint Replacement, Orthopedic Surgery, Prostate Surgery Additional Past Surgical History / Comment(s): Right knee arthroscopy, right knee replacement, EGD, colonoscopy, TURP, cardioversion. Past Anesthesia/Blood Transfusion Reactions: No Reported Reaction Additional Past Anesthesia/Blood Transfusion Reaction / Comment(s): No hx blood transfusion. Past Psychological History: Anxiety, Depression Smoking Status: Former smoker Past Alcohol Use History: Occasional Past Drug Use History: Cocaine Plan - Discharge Summary Discharge Rx Participant: Yes New Discharge Prescriptions: New Triamcinolone 0.5% Cream [Kenalog 0.5% Cream] 1 applic TOPICAL BID #1 each oxyCODONE-APAP 5-325MG [Percocet 5-325 mg] 1 each PO Q6HR PRN #60 tab PRN Reason: Pain Acetaminophen Tab [Tylenol] 650 mg PO Q4HR PRN tab PRN Reason: Fever and/ or Mild Pain Doxycycline Hyclate 100 mg PO BID #20 cap Spironolactone [Aldactone] 25 mg PO DAILY #30 tab Nystatin 100,000Unit/gm Cream [Mycostatin Cream] 1 applic TOPICAL BID #1 each Continue Montelukast [Singulair] 10 mg PO DAILY@1200 Tamsulosin [Flomax] 0.4 mg PO DAILY@1200 Cyclobenzaprine [Flexeril] 10 mg PO TID@0600,1200,1800 Empagliflozin [Jardiance] 10 mg PO DAILY@1200 Omeprazole [PriLOSEC] 20 mg PO BID@0600,1800 allopurinoL [Zyloprim] 300 mg PO DAILY@0600 Ferrous Sulfate [Iron (65 MG Elemental)] 325 mg PO DAILY@1200 Folic Acid 1 mg PO DAILY@1200 Metoprolol Tartrate [Lopressor] 50 mg PO BID@0600,1800 Loratadine [Claritin] 5 mg PO BID@0600,1800 Albuterol Nebulized [Ventolin Nebulized] 2.5 mg INHALATION RT-TID rOPINIRole HCL [Requip] 4 mg PO HS Budesonide-Formot 160-4.5 Mcg [Symbicort 160-4.5 Mcg Inhaler] 2 puff INHALATION RT-BID@0600,1800 Apixaban [Eliquis] 5 mg PO BID@0600,1800 Tiotropium 2.5 Mcg/Puff [Spiriva Respimat 2.5 Mcg] 2 puff INHALATION RT-DAILY ARIPiprazole [Abilify] 5 mg PO DAILY@0600 Latanoprost [Latanoprost 0.005%] 1 drop BOTH EYES HS Atorvastatin [Lipitor] 40 mg PO HS@1800 Lidocaine 5% Patch [Lidoderm 5% Patch] 1 patch TRANSDERM DAILY PRN PRN Reason: Pain Discontinued Nystatin 100,000 Unit/ml Susp [Mycostatin Oral Susp] 500,000 unit PO QID oxyCODONE-APAP 10-325MG [Percocet 10-325 mg] 1 tab PO BID Furosemide [Lasix] 40 mg PO BID@0600,1800 SILVER sulfADIAZINE CREAM [Silvadene Cream] 1 applic TOPICAL DAILY Discharge Medication List Montelukast [Singulair] 10 mg PO DAILY@1200 01/12/18 [History] Tamsulosin [Flomax] 0.4 mg PO DAILY@1200 11/08/21 [History] rOPINIRole HCL [Requip] 4 mg PO HS 11/08/21 [History] Cyclobenzaprine [Flexeril] 10 mg PO TID@0600,1200,1800 11/24/21 [History] Budesonide-Formot 160-4.5 Mcg [Symbicort 160-4.5 Mcg Inhaler] 2 puff INHALATION RT-BID@0600,1800 04/11/22 [History] Empagliflozin [Jardiance] 10 mg PO DAILY@1200 04/11/22 [History] Apixaban [Eliquis] 5 mg PO BID@0600,1800 05/13/22 [History] Tiotropium 2.5 Mcg/Puff [Spiriva Respimat 2.5 Mcg] 2 puff INHALATION RT-DAILY 02/28/23 [History] Omeprazole [PriLOSEC] 20 mg PO BID@0600,1800 06/27/23 [History] ARIPiprazole [Abilify] 5 mg PO DAILY@0600 07/27/23 [History] Latanoprost [Latanoprost 0.005%] 1 drop BOTH EYES 07/27/23 [History] Ferrous Sulfate [Iron (65 MG Elemental)] 325 mg PO DAILY@1200 11/23/23 [History] Folic Acid 1 mg PO DAILY@119911/23/23 [History] Loratadine [Claritin] 5 mg PO BID@0600,1800 11/23/23 [History] Metoprolol Tartrate [Lopressor] 50 mg PO BID@0600,1800 11/23/23 [History] allopurinoL [Zyloprim] 300 mg PO DAILY@0600 11/23/23 [History] Albuterol Nebulized [Ventolin Nebulized] 2.5 mg INHALATION RT-TID 01/20/24 [History] Atorvastatin [Lipitor] 40 mg PO HS@1800 01/20/24 [History] Lidocaine 5% Patch [Lidoderm 5% Patch] 1 patch TRANSDERM DAILY PRN 01/20/24 [History] Doxycycline Hyclate 100 mg PO BID #20 cap 01/25/24 [Rx] Acetaminophen Tab [Tylenol] 650 mg PO Q4HR PRN tab 01/26/24 [Rx] Nystatin 100,000Unit/gm Cream [Mycostatin Cream] 1 applic TOPICAL BID #1 each 01/26/24 [Rx] Spironolactone [Aldactone] 25 mg PO DAILY #30 tab 01/26/24 [Rx] Triamcinolone 0.5% Cream [Kenalog 0.5% Cream] 1 applic TOPICAL BID #1 each 01/26/24 [Rx] oxyCODONE-APAP 5-325MG [Percocet 5-325 mg] 1 each PO Q6HR PRN #60 tab 01/26/24 [Rx] Follow up Appointment(s)/Referral(s): Albert Chavez MD [Primary Care Provider] - 1-2 days Tristin Lyon MD [STAFF PHYSICIAN] - 1 Week (wound center) Pily Garland MD [STAFF PHYSICIAN] - 02/07/24 3:15 pm Discharge Disposition: HOME SELF-CARE
== END 2024-01-26 11:43 | disposition home or self-care (01) | DRG 197 ==
LOC: EC 05:05 → OBSVTOIN 06:05 → 6NMEDSUR 06:05
PROVIDERS: ADMIT Hospitalist; ATTEND Hospitalist
DX: I83.009 Varicose veins of unspecified lower extremity with ulcer of unspecified site (principal); I87.8 Other specified disorders of veins; B95.7 Other staphylococcus as the cause of diseases classified elsewhere; F17.210 Nicotine dependence, cigarettes, uncomplicated; F32.A Depression, unspecified; F41.9 Anxiety disorder, unspecified; G25.81 Restless legs syndrome; G62.1 Alcoholic polyneuropathy; G89.29 Other chronic pain; I11.0 Hypertensive heart disease with heart failure; I48.91 Unspecified atrial fibrillation; I48.92 Unspecified atrial flutter; I50.42 Chronic combined systolic (congestive) and diastolic (congestive) heart failure; J44.9 Chronic obstructive pulmonary disease, unspecified; K22.70 Barrett's esophagus without dysplasia; K70.30 Alcoholic cirrhosis of liver without ascites; L03.116 Cellulitis of left lower limb; L03.115 Cellulitis of right lower limb; K86.0 Alcohol-induced chronic pancreatitis; M15.9 Polyosteoarthritis, unspecified; H40.9 Unspecified glaucoma; M47.9 Spondylosis, unspecified; M79.7 Fibromyalgia; N40.0 Benign prostatic hyperplasia without lower urinary tract symptoms; Z79.01 Long term (current) use of anticoagulants; Z79.51 Long term (current) use of inhaled steroids; Z79.84 Long term (current) use of oral hypoglycemic drugs; Z79.899 Other long term (current) drug therapy; Z96.651 Presence of right artificial knee joint; Z88.0 Allergy status to penicillin; Z88.8 Allergy status to other drugs, medicaments and biological substances
CPT/HCPCS: 36415; 80048; 80053; 82565; 83605; 85025; 85652; 86140; 87040; 94640; 96365; 96366; 96375; 96376; 99285

== ENCOUNTER → 2024-04-12 | Outpatient (CLI) | payer OTHER ==
[2024-04-12 18:34] LABS: HGB 12.3 g/dL (13.0-17.0); MCH 31.1 pg (27.0-32.0); MCHC 33.2 g/dL (32.0-37.0); MCV 93.4 FL (80.0-97.0); Mean Platelet Volume 8.6 FL (9.5-12.2); NRBC Per 100 WBC 0 X 10*3/uL (0.00-0.01); Platelet Count 322 X 10*3/uL (140-440); RBC 3.96 X 10*6/uL (4.40-5.60); RDW 14.6 % (11.5-14.5); WBC 11.55 X 10*3/uL (4.50-10.00)
[2024-04-12 20:14] LABS: NT-Pro-B-Type Natriuretic Pept 989 pg/mL (0-125)
[2024-04-12 20:27] LABS: BUN/Creat Ratio 16.91 Ratio (12.00-20.00); Blood Urea Nitrogen 18.6 mg/dL (9.0-27.0); Chol/HDL Ratio 2.67 Ratio; Glucose 117 mg/dL (70-110); LDL Cholesterol,Calculated 44.1 mg/dL (0.0-131.0); Magnesium 1.5 mg/dL (1.5-2.4); Phosphorus 3.1 mg/dL (2.4-5.1)
[2024-04-12 20:28] LABS: ALT 19 U/L (10-49); AST 19 U/L (14-35); Albumin 3.7 g/dL (3.8-4.9); Albumin/Globulin Ratio 1.37 Ratio (1.60-3.17); Alkaline Phosphatase 101 U/L (41-126); Carbon Dioxide 25.4 mmol/L (21.6-31.8); Chloride 92 mmol/L (96-109); Globulin 2.7 g/dL (1.6-3.3); Potassium 3.3 mmol/L (3.5-5.5); Sodium 134 mmol/L (135-145); Total Bilirubin 0.4 mg/dL (0.3-1.2); Total Protein 6.4 g/dL (6.2-8.2)
== END | disposition home or self-care (01) ==
LOC: LABWHC1 12:00
PROVIDERS: ATTEND Nurse Practitioner Acute Care
DX: E78.2 Mixed hyperlipidemia (principal); N18.2 Chronic kidney disease, stage 2 (mild); I50.32 Chronic diastolic (congestive) heart failure
CPT/HCPCS: 36415; 80053; 80061; 83735; 83880; 84100; 85027

== ENCOUNTER → 2024-04-18 | Outpatient (CLI) | payer OTHER ==
[2024-04-18 18:36] LABS: BUN/Creat Ratio 14.09 Ratio (12.00-20.00); Blood Urea Nitrogen 15.5 mg/dL (9.0-27.0); Calcium 8.3 mg/dL (8.7-10.3); Carbon Dioxide 26.1 mmol/L (21.6-31.8); Chloride 90 mmol/L (96-109); Glucose 152 mg/dL (70-110); Potassium 3.2 mmol/L (3.5-5.5); Sodium 133 mmol/L (135-145)
== END | disposition home or self-care (01) ==
LOC: LABWHC1 12:46
PROVIDERS: ATTEND Internal Medicine Nephrology
DX: N18.2 Chronic kidney disease, stage 2 (mild) (principal)
CPT/HCPCS: 36415; 80048

== ENCOUNTER → 2024-04-30 | Outpatient (CLI) | payer OTHER ==
--- NOTE | 2024-05-14 11:19 | MR ---
EXAMINATION TYPE: MR henri/lexie wo con DATE OF EXAM: 04/30/2024 COMPARISON: None HISTORY: mid and low back pain that radiates down legs CONTRAST: Performed utilizing 0 mL intravenous Gadavist gadolinium contrast. TECHNIQUE: Multiplanar, multiecho imaging on a 3.0 Tere magnet is performed through the thoracic spi ne. Some mild increased spinal cord signal is posterior to the T10-11 disc level. No cord contact is evid ent. Axial plane images of the more normal appearance. Vertebral body alignment is normal. Vertebral body heights are preserved. Disc heights are preserved. Disc hydration levels are preserved. No spinal canal stenosis is evident. IMPRESSION: 1. There may be some mild increased signal within the spinal cord on sagittal plane images posterior to the T10-11 level. However, axial images appear normal suggesting artifact. 2. No suspicious disc herniations, spinal canal stenosis or cord contact identified. EXAMINATION TYPE: MR henri/lexie wo con DATE OF EXAM: 04/30/2024 COMPARISON: None HISTORY: mid and low back pain that radiates down legs CONTRAST: 0 mL intravenous Gadavist. TECHNIQUE: Multiplanar, multisequence images of the lumbar spine were acquired. FINDINGS: L5-S1: No focal disc herniation or significant disc bulge evident. Facet hypertrophy is present more so on the left. Some ligamentum flavum laxity is present. Severe right and moderate to severe left fo raminal stenosis is present. Disc desiccation is present. L4-L5: No significant disc bulge or disc herniation. No spinal canal stenosis. No foraminal stenosi s. Facet changes are present on the right.. L3-L4: Mild disc bulging is present without spinal canal stenosis. Moderate right and minimal left fo raminal narrowing is present. No spinal canal stenosis. L2-L3: There is complete loss of disc height at this level. Some fusion of the L2-3 may be present. N o posterior wall displacement is evident. No focal disc herniation or significant disc bulge. Neural foramina widely patent. L1-L2: No significant disc bulge or disc herniation. No spinal canal stenosis. No foraminal stenosi s. Mild facet degenerative changes are present. T12-L1: No significant disc bulge or disc herniation. No spinal canal stenosis. No foraminal stenos is. . IMPRESSION: 1. Loss of disc height some fusions L2-L3. 2. Severe foraminal stenosis L5-S1 [facility], Workstation: [email or web address], 05/14/2024 11:17 AM
== END | disposition home or self-care (01) ==
LOC: RADMRIMAIN 21:00
PROVIDERS: ATTEND Orthopaedic Surgery
DX: M47.27 Other spondylosis with radiculopathy, lumbosacral region (principal); M51.16 Intervertebral disc disorders with radiculopathy, lumbar region; M48.04 Spinal stenosis, thoracic region; M99.73 Connective tissue and disc stenosis of intervertebral foramina of lumbar region; M43.26 Fusion of spine, lumbar region
CPT/HCPCS: 72146; 72148

== ENCOUNTER 2024-05-27 18:49 | Emergency (ER) | payer OTHER ==
[2024-05-27 19:01] VITALS: TEMP 97.6
--- NOTE | 2024-05-27 19:24 | ED ---
Back Pain HPI - General Source: patient, RN notes reviewed Limitations: no limitations <Thea Troncoso - Last Filed: 05/27/24 19:23> - General Source: patient, RN notes reviewed Mode of arrival: EMS Limitations: no limitations - History of Present Illness MD Complaint: back pain <Kayla Weston - Last Filed: 05/28/24 11:08> - General Chief Complaint: Back Pain/Injury Stated Complaint: bilat leg pain Time Seen by Provider: 05/27/24 19:05 - History of Present Illness Initial Comments: Quick [id number] male presents emergency department via EMS for chief complaint of "sciatic nerve pain "states that pain has been worsening over the past few days. States that pain starts in his bilateral buttocks and radiates down his lower extremities. Denies recent falls or injuries to the lower back. Denies loss of bladder or bowel continence, saddle anesthesias, fevers, history of IV drug use. (Thea Troncoso) This is a 63-year-old male who presents to the emergency department for lower back pain. States that it started a few days ago. Denies any injuries. Believes that the pain is related to sciatica. States that the pain used to just be on the right side, but then over the last few days it started becoming a problem on the left side as well. Pain is in the bilateral buttocks with radiation down both legs. Denies any loss of bowel/bladder control or saddle anesthesia. He is alternating with ibuprofen and Tylenol without any relief. (Kayla Weston) - Related Data Home Medications Medication Instructions Recorded Confirmed Montelukast [Singulair] 10 mg PO DAILY@1200 01/12/18 01/20/24 Tamsulosin [Flomax] 0.4 mg PO DAILY@1200 11/08/21 01/20/24 rOPINIRole HCL [Requip] 4 mg PO HS 11/08/21 01/20/24 Cyclobenzaprine [Flexeril] 10 mg PO TID@0600,1200,1800 11/24/21 01/20/24 Budesonide-Formot 160-4.5 Mcg 2 puff INHALATION RT-BID@0600,1800 04/11/22 01/20/24 [Symbicort 160-4.5 Mcg Inhaler] Empagliflozin [Jardiance] 10 mg PO DAILY@1200 04/11/22 01/20/24 Apixaban [Eliquis] 5 mg PO BID@0600,1800 05/13/22 01/20/24 Tiotropium 2.5 Mcg/Puff [Spiriva 2 puff INHALATION RT-DAILY 02/28/23 01/20/24 Respimat 2.5 Mcg] Omeprazole [PriLOSEC] 20 mg PO BID@0600,1800 06/27/23 01/20/24 ARIPiprazole [Abilify] 5 mg PO DAILY@0600 07/27/23 01/20/24 Latanoprost [Latanoprost 0.005%] 1 drop BOTH EYES HS 07/27/23 01/20/24 Ferrous Sulfate [Iron (65 MG 325 mg PO DAILY@1200 11/23/23 01/20/24 Elemental)] Folic Acid 1 mg PO DAILY@1200 11/23/23 01/20/24 Loratadine [Claritin] 5 mg PO BID@0600,1800 11/23/23 01/20/24 Metoprolol Tartrate [Lopressor] 50 mg PO BID@0600,1800 11/23/23 01/20/24 allopurinoL [Zyloprim] 300 mg PO DAILY@00 11/23/23 01/20/24 Albuterol Nebulized [Ventolin 2.5 mg INHALATION RT-TID 01/20/24 01/20/24 Nebulized] Atorvastatin [Lipitor] 40 mg PO HS@1800 01/20/24 01/20/24 Lidocaine 5% Patch [Lidoderm 5% 1 patch TRANSDERM DAILY PRN 01/20/24 01/20/24 Patch] Previous Rx's Medication Instructions Recorded Doxycycline Hyclate 100 mg PO BID #20 cap 01/25/24 Acetaminophen Tab [Tylenol] 650 mg PO Q4HR PRN tab 01/26/24 Nystatin 100,000Unit/gm Cream 1 applic TOPICAL BID #1 each 01/26/24 [Mycostatin Cream] Spironolactone [Aldactone] 25 mg PO DAILY #30 tab 01/26/24 Triamcinolone 0.5% Cream [Kenalog 1 applic TOPICAL BID #1 each 01/26/24 0.5% Cream] oxyCODONE-APAP 5-325MG [Percocet 1 each PO Q6HR PRN #60 tab 01/26/24 5-325 mg] methocarbamoL [Robaxin-750] 1,500 mg PO TID PRN #30 tab 05/27/24 predniSONE 50 mg PO DAILY 5 Days #5 tab 05/27/24 Allergies Allergy/AdvReac Type Severity Reaction Status Date / Time amoxicillin trihydrate AdvReac Rapid Verified 05/27/24 19:01 [From Augmentin] Heart Rate potassium clavulanate AdvReac FELT LIKE Verified 05/27/24 19:01 [From Augmentin] HE WAS GOING TO PASS OUT FAST HEARTBEAT" pregabalin [From Lyrica] AdvReac Leg Verified 05/27/24 19:01 swelling venlafaxine [From Effexor] AdvReac Confusion Verified 05/27/24 19:01 Review of Systems ROS Other: All systems not noted in ROS Statement are negative. <Thea Troncoso - Last Filed: 05/27/24 19:23> ROS Other: All systems not noted in ROS Statement are negative. <Kayla Weston - Last Filed: 05/28/24 11:08> ROS Statement: Those systems with pertinent positive or pertinent negative responses have been documented in the HPI. Past Medical History Past Medical History: Atrial Fibrillation, Coronary Artery Disease (CAD), Heart Failure, COPD, Diabetes Mellitus, Eye Disorder, Fibromyalgia, Hypertension, Myocardial Infarction (CA), Musculoskeletal Disorder, Osteoarthritis (OA), Prostate Disorder, Vascular Disorder Additional Past Medical History / Comment(s): Chronic cough, hx pancreatitis, bilateral glaucoma, neuropathy bilateral feet, poor circulation to legs, varicose veins, RLS, hx BPH, colitis, gastritis, Alvarenga's esophagus, hx Shingles in 2012 with joint pain since, chronic low back pain, DDD. wound to right leg, scabies 06/2023 Last Myocardial Infarction Date:: 09/02/16 History of Any Multi-Drug Resistant Organisms: None Reported Past Surgical History: Appendectomy, Cardiac Ablation, Heart Catheterization, Joint Replacement, Orthopedic Surgery, Prostate Surgery Additional Past Surgical History / Comment(s): Right knee arthroscopy, right knee replacement, EGD, colonoscopy, TURP, cardioversion. Past Anesthesia/Blood Transfusion Reactions: No Reported Reaction Additional Past Anesthesia/Blood Transfusion Reaction / Comment(s): No hx blood transfusion. Past Psychological History: Anxiety, Depression Smoking Status: Former smoker Past Alcohol Use History: Occasional Past Drug Use History: Cocaine - Past Family History Father Family Medical History: CVA/TIA, Hypertension Additional Family Medical History / Comment(s): Father at the age of 38yrs from HTN/CVA. He was an alcoholic. Mother Family Medical History: COPD, Diabetes Mellitus Additional Family Medical History / Comment(s): Mother of emphysema at the age of 74 yrs (2003), mom had hx of drinking and smoking. <Thea Troncoso - Last Filed: 05/27/24 19:23> General Exam Limitations: no limitations <Thea Troncoso - Last Filed: 05/27/24 19:23> Limitations: no limitations General appearance: alert, in no apparent distress Head exam: Present: atraumatic, normocephalic, normal inspection Respiratory exam: Present: normal lung sounds bilaterally. Absent: respiratory distress, wheezes, rales, rhonchi, stridor Cardiovascular Exam: Present: regular rate, normal rhythm, normal heart sounds. Absent: systolic murmur, diastolic murmur, rubs, gallop, clicks Neurological exam: Present: alert, oriented X3, CN II-XII intact Psychiatric exam: Present: normal affect, normal mood Skin exam: Present: warm, dry, intact, normal color. Absent: rash <Kayla Weston - Last Filed: 05/28/24 11:08> - General Exam Comments Initial Comments: Visual Physical Exam Vital signs reviewed General: Well-appearing, nontoxic, no acute distress. Head: Normocephalic, atraumatic Eyes: PERRLA, EOMI ENT: Airway patent Chest: Nonlabored breathing Skin: No visual rash, normal skin tone Neuro: Alert and oriented 3 Musculoskeletal: No gross abnormalities (Thea Troncoso) Course Vital Signs 05/27/24 05/27/24 18:58 23:43 Temperature 97.6 F Pulse Rate 84 90 Respiratory 18 16 Rate Blood Pressure 103/66 147/82 O2 Sat by Pulse 96 96 Oximetry Medical Decision Making <Thea Troncoso - Last Filed: 05/27/24 19:23> - Radiology Data Radiology results: report reviewed, image reviewed <Kayla Weston - Last Filed: 05/28/24 11:08> - Medical Decision Making I completed the quick note portion of this chart signed Thea Troncoso PA-C (Thea Troncoso) This is a 63 year old male who presents to the emergency department for lower back pain. Was pt. sent in by a medical professional or institution? @ -No Did you speak to anyone other than the patient for history? @ -No Did you review nursing and triage notes? @ -Yes, and I agree, it is accurate with regards to the patient's symptoms. Were old charts reviewed? @ -No Differential Diagnosis? @ -Differential Back Pain: Strain, zoster, cauda equina syndrome, epidural abscess, vertebral osteomyelitis, discitis, fracture, subluxation, disc herniation, DJD, spinal stenosis, dissection, AAA, pancreatitis, peptic ulcer disease, pyelonephritis, kidney stone, this is not meant to be an all-inclusive list. EKG interpreted by me (3pts min.)? @ -Not obtained X-rays interpreted by me (1pt min.)? @ -X-ray of the lumbar spine obtained. My interpretation identifies no acute fractures. CT interpreted by me (1pt min.)? @ -Not obtained U/S interpreted by me (1pt. min.)? @ -Not obtained What testing was considered but not performed? (CT, X-rays, U/S, labs)? Why? @ -None What meds were considered but not given? Why? @ -None Did you discuss the management of the patient with other professionals? @ -No Did you reconcile home meds? @ -No Was smoking cessation discussed for >3mins.? @ -No Was critical care preformed (if so, how long)? @ -No Were there social determinants of health that impacted care today? How? (Homelessness, low income, unemployed, alcoholism, drug addiction, transportation, low edu. Level, literacy, decrease access to med. care, long-term, rehab)? @ -No Was there de-escalation of care discussed even if they declined? (Discuss DNR or withdrawal of care, Hospice)? @ -No What co-morbidities impacted this encounter? (DM, HTN, Smoking, COPD, CAD, Cancer, CVA, Hep., AIDS, mental health diagnosis, sleep apnea, morbid obesity)? @ -Osteoarthritis Was patient admitted / discharged? @ -Discharged. X-ray of the lumbar spine demonstrates moderate multilevel lumbar spondylosis and chronic findings without any acute process. He had no red flag signs or symptoms such as loss of bowel/bladder control or saddle anesthesia. Pain was managed in the emergency department. Prescription for prednisone and Robaxin provided. Advised follow-up with his PCP for reevaluation. Patient discharged home in stable condition. Case discussed with ED attending Dr. Dorado. Return precautions reviewed in depth, the patient is instructed to return to the emergency department with any new, worsening, or concerning symptoms. Patient verbalized understanding. Undiagnosed new problem with uncertain prognosis? @ -None Drug Therapy requiring intensive monitoring for toxicity (Heparin, Nitro, Insulin, Cardizem)? @ -None Were any procedures done? @ -None Diagnosis/symptom? @ -Bilateral sciatica, lumbar radiculopathy Acute, or Chronic, or Acute on Chronic? @ -Acute Uncomplicated (without systemic symptoms) or Complicated (systemic symptoms)? @ -Uncomplicated Side effects of treatment? @ -None Exacerbation, Progression, or Severe Exacerbation] @ -Not applicable Poses a threat to life or bodily function? @ -No (Kayla Weston) Disposition <Thea Troncoso - Last Filed: 05/27/24 19:23> Is patient prescribed a controlled substance at d/c from ED?: No Time of Disposition: 23:30 <Kayla Weston - Last Filed: 05/28/24 11:08> Clinical Impression: Bilateral sciatica Disposition: HOME SELF-CARE Condition: Stable Instructions (If sedation given, give patient instructions): Sciatica (ED), Acute Low Back Pain (ED), Lumbar Radiculopathy (ED) Additional Instructions: Return to the emergency department with any new, worsening, or concerning symptoms. Take the prednisone daily for 5 days. Take the Robaxin as 1 to 2 tablets up to 3-4 times daily. Follow up with your primary care provider in 1-2 days. Prescriptions: predniSONE 50 mg PO DAILY 5 Days #5 tab methocarbamoL [Robaxin-750] 1,500 mg PO TID PRN #30 tab PRN Reason: Pain Referrals: Albert Chavez MD [Primary Care Provider] - 1-2 days
[2024-05-27] MEDS: DEXAMETHASONE SOD PHOSPHATE 10 MG/ML 1 ML VIAL IVP STA (21:20)
[2024-05-27] MEDS: MORPHINE SULFATE 4 MG/ML SYRINGE IVP STA (21:23)
[2024-05-27] MEDS: KETOROLAC 15 MG/ML 1 ML VIAL IVP STA (21:24)
[2024-05-27] MEDS: ORPHENADRINE 30 MG/ML 2 ML VIAL IVP STA (21:25)
[2024-05-27] MEDS: LIDOCAINE 4% PATCH TOPICAL ONE (21:25)
[2024-05-27] MEDS: HYDROmorphone 1 MG/ML 1 ML SYRINGE IVP STA (22:40)
[2024-05-27] MEDS: CYCLOBENZAPRINE 10MG STARTER 3 TAB BTL PO STA (23:35)
[2024-05-27] MEDS: ACET/COD 300 MG/30 MG STARTER PACK 6 TAB BTL PO STA (23:35)
[2024-05-27 23:52] VITALS: BP 147/82; PULSE 90; RESP 16
--- NOTE | 2024-05-28 04:03 | XR ---
EXAMINATION TYPE: XR lumbar spine 2 or 3V DATE OF EXAM: 05/27/2024 9:08 PM CLINICAL INDICATION:Male, 63 years old with history of Pain; [facility] COMPARISON: MRI 04/30/2024 TECHNIQUE: XR lumbar spine 2 or 3V - Frontal, lateral and coned down L5-S1 lateral views of the lumba r spine. FINDINGS: Exam is limited due to generalized diminished bone mineralization and multilevel lumbar deformities. There is generally moderate to severe degenerative disc disease throughout the lumbar spine, with def ormity and near complete fusion between L2 and L3 vertebral bodies, as before. Mildly compressed and attenuated appearance of the L4 and L5 vertebral bodies is similar to the prior MRI. No clearly acute compression fractures are seen relative to that exam. There is a mild S-shaped thoracolumbar scolios is. Moderate calcification of the abdominal aorta without evidence of aneurysm. IMPRESSION: 1. Moderate multilevel lumbar spondylosis. 2. Chronic findings/deformities as above. [facility], , 05/28/2024 4:01 AM
== END 2024-05-27 23:43 | disposition home or self-care (01) ==
LOC: EC 18:49
CPT/HCPCS: 72100; 96374; 96375; 99284

== ENCOUNTER 2024-06-04 16:23 | Emergency (ER) | payer OTHER ==
--- NOTE | 2024-06-04 16:53 | ED ---
Extremity Problem HPI - General Source: patient, RN notes reviewed Mode of arrival: wheelchair Limitations: no limitations <Elisa Chavis - Last Filed: 06/04/24 16:52> - History of Present Illness Onset/Timin -: days(s) Location: bilateral lower extremity History of Same: Yes Radiation: distal Severity scale (1-10): 10 Quality: sharp, constant Consistency: constant Improves with: immobilization Worsens with: walking, exertion <Elan Brown - Last Filed: 06/04/24 19:00> - General Stated complaint: Ming.leg pain Time Seen by Provider: 06/04/24 16:52 - History of Present Illness Initial comments: Quick note: 63-year-old male presented to the ER with a chief complaint of right sciatic pain. Patient states he has chronic bilateral sciatic nerve pain. He has been ongoing for the past 5 months. Within the last month it has been increasing in intensity. He states his right is worse than his left. No new injuries or traumas. No saddle paresthesias, bowel or bladder incontinence or fevers. (Elisa Chavis) This is a 63-year-old male presenting with lower back pain x 3 days. Patient endorses chronic history of sciatica with bilateral radiculopathy, with right radiculopathy worse than left. Patient rates pain as constant and 10 out of 10. Patient states pain worsens with position change and movement. Patient endorses use of sisters tramadol for pain relief with minimal relief. Patient denies saddle paresthesia or urinary incontinence/retention. (Elan Brown) - Related Data Home Medications Medication Instructions Recorded Confirmed Montelukast [Singulair] 10 mg PO DAILY@1200 01/12/18 01/20/24 Tamsulosin [Flomax] 0.4 mg PO DAILY@1200 11/08/21 01/20/24 rOPINIRole HCL [Requip] 4 mg PO HS 11/08/21 01/20/24 Cyclobenzaprine [Flexeril] 10 mg PO TID@0600,1200,1800 11/24/21 01/20/24 Budesonide-Formot 160-4.5 Mcg 2 puff INHALATION RT-BID@0600,1800 04/11/22 01/20/24 [Symbicort 160-4.5 Mcg Inhaler] Empagliflozin [Jardiance] 10 mg PO DAILY@1200 04/11/22 01/20/24 Apixaban [Eliquis] 5 mg PO BID@0600,1800 05/13/22 01/20/24 Tiotropium 2.5 Mcg/Puff [Spiriva 2 puff INHALATION RT-DAILY 02/28/23 01/20/24 Respimat 2.5 Mcg] Omeprazole [PriLOSEC] 20 mg PO BID@0600,1800 06/27/23 01/20/24 ARIPiprazole [Abilify] 5 mg PO DAILY@0600 07/27/23 01/20/24 Latanoprost [Latanoprost 0.005%] 1 drop BOTH EYES HS 07/27/23 01/20/24 Ferrous Sulfate [Iron (65 MG 325 mg PO DAILY@1200 11/23/23 01/20/24 Elemental)] Folic Acid 1 mg PO DAILY@1200 11/23/23 01/20/24 Loratadine [Claritin] 5 mg PO BID@0600,1800 11/23/23 01/20/24 Metoprolol Tartrate [Lopressor] 50 mg PO BID@0600,1800 11/23/23 01/20/24 allopurinoL [Zyloprim] 300 mg PO DAILY@0600 11/23/23 01/20/24 Albuterol Nebulized [Ventolin 2.5 mg INHALATION RT-TID 01/20/24 01/20/24 Nebulized] Atorvastatin [Lipitor] 40 mg PO HS@1800 01/20/24 01/20/24 Lidocaine 5% Patch [Lidoderm 5% 1 patch TRANSDERM DAILY PRN 01/20/24 01/20/24 Patch] Previous Rx's Medication Instructions Recorded Doxycycline Hyclate 100 mg PO BID #20 cap 01/25/24 Acetaminophen Tab [Tylenol] 650 mg PO Q4HR PRN tab 01/26/24 Nystatin 100,000Unit/gm Cream 1 applic TOPICAL BID #1 each 01/26/24 [Mycostatin Cream] Spironolactone [Aldactone] 25 mg PO DAILY #30 tab 01/26/24 Triamcinolone 0.5% Cream [Kenalog 1 applic TOPICAL BID #1 each 01/26/24 0.5% Cream] oxyCODONE-APAP 5-325MG [Percocet 1 each PO Q6HR PRN #60 tab 01/26/24 5-325 mg] methocarbamoL [Robaxin-750] 1,500 mg PO TID PRN #30 tab 05/27/24 predniSONE 50 mg PO DAILY 5 Days #5 tab 05/27/24 methylPREDNISolone Dose Pack 4 mg PO DIRECTED #21 tab 06/04/24 [Medrol Dose Pack] Allergies Allergy/AdvReac Type Severity Reaction Status Date / Time amoxicillin trihydrate AdvReac Rapid Verified 06/04/24 16:53 [From Augmentin] Heart Rate potassium clavulanate AdvReac FELT LIKE Verified 06/04/24 16:53 [From Augmentin] HE WAS GOING TO PASS OUT FAST HEARTBEAT" pregabalin [From Lyrica] AdvReac Leg Verified 06/04/24 16:53 swelling venlafaxine [From Effexor] AdvReac Confusion Verified 06/04/24 16:53 Review of Systems ROS Other: All systems not noted in ROS Statement are negative. <Elisa Chavis - Last Filed: 06/04/24 16:52> ROS Other: All systems not noted in ROS Statement are negative. <Elan Brown - Last Filed: 06/04/24 19:00> ROS Statement: Those systems with pertinent positive or pertinent negative responses have been documented in the HPI. Past Medical History Past Medical History: Atrial Fibrillation, Coronary Artery Disease (CAD), Heart Failure, COPD, Diabetes Mellitus, Eye Disorder, Fibromyalgia, Hypertension, Myocardial Infarction (OR), Musculoskeletal Disorder, Osteoarthritis (OA), Prostate Disorder, Vascular Disorder Additional Past Medical History / Comment(s): Chronic cough, hx pancreatitis, bilateral glaucoma, neuropathy bilateral feet, poor circulation to legs, varicose veins, RLS, hx BPH, colitis, gastritis, Alvarenga's esophagus, hx Shingles in 2012 with joint pain since, chronic low back pain, DDD. wound to right leg, scabies 06/2023 Last Myocardial Infarction Date:: 09/02/16 History of Any Multi-Drug Resistant Organisms: None Reported Past Surgical History: Appendectomy, Cardiac Ablation, Heart Catheterization, Joint Replacement, Orthopedic Surgery, Prostate Surgery Additional Past Surgical History / Comment(s): Right knee arthroscopy, right kne e replacement, EGD, colonoscopy, TURP, cardioversion. Past Anesthesia/Blood Transfusion Reactions: No Reported Reaction Additional Past Anesthesia/Blood Transfusion Reaction / Comment(s): No hx blood transfusion. Past Psychological History: Anxiety, Depression Smoking Status: Former smoker Past Alcohol Use History: Occasional Past Drug Use History: Cocaine - Past Family History Father Family Medical History: CVA/TIA, Hypertension Additional Family Medical History / Comment(s): Father at the age of 38yrs from HTN/CVA. He was an alcoholic. Mother Family Medical History: COPD, Diabetes Mellitus Additional Family Medical History / Comment(s): Mother of emphysema at the age of 74 yrs (2003), mom had hx of drinking and smoking. <Elisa Chavis - Last Filed: 06/04/24 16:52> General Exam <Elisa Chavis - Last Filed: 06/04/24 16:52> General appearance: alert, in no apparent distress Head exam: Present: atraumatic, normocephalic, normal inspection Eye exam: Present: normal appearance, PERRL, EOMI. Absent: scleral icterus, conjunctival injection, periorbital swelling ENT exam: Present: normal exam, mucous membranes moist Neck exam: Present: normal inspection. Absent: tenderness, meningismus, lymphadenopathy Respiratory exam: Present: normal lung sounds bilaterally. Absent: respiratory distress, wheezes, rales, rhonchi, stridor Cardiovascular Exam: Present: regular rate, normal rhythm, normal heart sounds. Absent: systolic murmur, diastolic murmur, rubs, gallop, clicks GI/Abdominal exam: Present: soft, normal bowel sounds. Absent: distended, tenderness, guarding, rebound, rigid Extremities exam: Present: normal inspection, full ROM, normal capillary refill. Absent: tenderness, pedal edema, joint swelling, calf tenderness Back exam: Present: normal inspection, tenderness, paraspinal tenderness (Positive bilateral paralumbar muscle spasm and tenderness. Negative vertebral tenderness, crepitus or step-off) Neurological exam: Present: alert, oriented X3, CN II-XII intact Psychiatric exam: Present: normal affect, normal mood Skin exam: Present: warm, dry, intact, normal color. Absent: rash <Elan Brown - Last Filed: 06/04/24 19:00> - General Exam Comments Initial Comments: Visual Physical Exam Vital signs reviewed General: Well-appearing, nontoxic, no acute distress. Head: Normocephalic, atraumatic Eyes: PERRLA, EOMI ENT: Airway patent Chest: Nonlabored breathing Skin: No visual rash, normal skin tone Neuro: Alert and oriented 3 Musculoskeletal: No gross abnormalities (Elisa Chavis) Course Vital Signs 06/04/24 06/04/24 16:50 18:25 Temperature 97.6 F 97.9 F Pulse Rate 94 91 Respiratory 17 18 Rate Blood Pressure 155/73 145/76 O2 Sat by Pulse 95 96 Oximetry Medical Decision Making <Elisa Chavis - Last Filed: 06/04/24 16:52> <Elan Brown - Last Filed: 06/04/24 19:00> - Medical Decision Making I performed the quick note portion of this chart. Electronically signed by Elisa Chavis PA-C (Elisa Chavis) Was pt. sent in by a medical professional or institution ([facility], [employer], urgent care, hospital, or fci...) When possible be specific @ -[No] Did you speak to anyone other than the patient for history (EMS, parent, family, police, friend...)? What history was obtained from this source @ -[No] Did you review nursing and triage notes (agree or disagree)? Why? @ -[I reviewed and agree with nursing and triage notes] Were old charts reviewed (outside hosp., previous admission, EMS record, old EKG, old radiological studies, urgent care reports/EKG's, fci records)? Report findings @ -[No old charts were reviewed] Differential Diagnosis (chest pain, altered mental status, abdominal pain women, abdominal pain men, vaginal bleeding, weakness, fever, dyspnea, syncope, headache, dizziness, GI bleed, back pain, seizure, CVA, palpatations, mental health, musculoskeletal)? @ -Differential Back Pain: Strain, zoster, cauda equina syndrome, epidural abscess, vertebral osteomyelitis, discitis, fracture, subluxation, disc herniation, DJD, spinal stenosis, dissection, AAA, pancreatitis, peptic ulcer disease, pyelonephritis, kidney stone, this is not meant to be an all-inclusive list. EKG interpreted by me (3pts min.). @ -Not done X-rays interpreted by me (1pt min.). @ -Low back x-ray revealed no obvious fracture or dislocation CT interpreted by me (1pt min.). @ -[None done] U/S interpreted by me (1pt. min.). @ -[None done] What testing was considered but not performed or refused? (CT, X-rays, U/S, labs)? Why? @ -[None] What meds were considered but not given or refused? Why? @ -[None] Did you discuss the management of the patient with other professionals (professionals i.e. DrAdolph, PA, [employer], lab, RT, psych nurse, manager social media, facing end trimmer, teacher, eeo officer, caser up)? Give summary @ -[No] Was smoking cessation discussed for >3mins.? @ -[No] Was critical care preformed (if so, how long)? @ -[No] Were there social determinants of health that impacted care today? How? (Homelessness, low income, unemployed, alcoholism, drug addiction, transportation, low edu. Level, literacy, decrease access to med. care, alf, rehab)? @ -[No] Was there de-escalation of care discussed even if they declined (Discuss DNR or withdrawal of care, Hospice)? DNR status @ -[No] What co-morbidities impacted this encounter? (DM, HTN, Smoking, COPD, CAD, Cancer, CVA, ARF, Chemo, Hep., AIDS, mental health diagnosis, sleep apnea, morbid obesity)? @ -[None] Was patient admitted / discharged? Hospital course, mention meds given and route, prescriptions, significant lab abnormalities, going to OR and other pertinent info. @ -Discharge. Patient initially given Toradol, Norflex and Dilaudid IM. Patient endorses patient endorses ongoing pain especially at back of left hamstring. Additional dose of Toradol and Dilaudid IM given. Patient notes significant relief of pain following second round of analgesics. Medrol Dosepak sent to pharmacy Undiagnosed new problem with uncertain prognosis? @ -[No] Drug Therapy requiring intensive monitoring for toxicity (Heparin, Nitro, Insulin, Cardizem)? @ -[No] Were any procedures done? @ -[No] Diagnosis/symptom? @ -Sciatica, lower back pain Acute, or Chronic, or Acute on Chronic? @ -Acute on chronic Uncomplicated (without systemic symptoms) or Complicated (systemic symptoms)? @ -Uncomplicated Side effects of treatment? @ -[No] Exacerbation, Progression, or Severe Exacerbation? @ -[No] Poses a threat to life or bodily function? How? (Chest pain, USA, OR, pneumonia, PE, COPD, DKA, ARF, appy, cholecystitis, CVA, Diverticulitis, Homicidal, Suicidal, threat to staff... and all critical care pts) @ -[No] (Elan Brown) Disposition <Elisa Chavis - Last Filed: 06/04/24 16:52> Is patient prescribed a controlled substance at d/c from ED?: No Time of Disposition: 18:57 <Elan Brown - Last Filed: 06/04/24 19:00> Clinical Impression: Sciatica, Mechanical back pain, Lumbar radiculopathy Disposition: HOME SELF-CARE Condition: Good Instructions (If sedation given, give patient instructions): Acute Low Back Pain (ED) Prescriptions: methylPREDNISolone Dose Pack [Medrol Dose Pack] 4 mg PO DIRECTED #21 tab Referrals: Albert Chavez MD [Primary Care Provider] - 1-2 days
[2024-06-04] MEDS: KETOROLAC 15 MG/ML 1 ML VIAL IM STA ×2 (18:22→19:37)
[2024-06-04] MEDS: HYDROmorphone 0.5 MG/0.5 ML SYRINGE IM STA ×2 (18:22→19:37)
[2024-06-04] MEDS: ORPHENADRINE 30 MG/ML 2 ML VIAL IM STA (18:22)
--- NOTE | 2024-06-04 18:29 | XR ---
EXAMINATION TYPE: XR Hip RT and AP Pelvis DATE OF EXAM: 06/04/2024 6:09 PM CLINICAL INDICATION: Male, 63 years old with history of sciatic pain; [facility] COMPARISON: 12/29/2015. TECHNIQUE: XR Hip RT and AP Pelvis; hip was examined in the frontal and lateral projections and a AP pelvis. FINDINGS: No evidence for acute process, joint dislocation or significant soft tissue swelling. Osteo phyte formation of the superior acetabulum of the hip. There is mild joint space narrowing. Cam defor mities of femoral heads. IMPRESSION: 1. No evidence for acute process. 2. Mild hip osteoarthrosis. 3. Cam deformities of the femoral heads. [facility], , 06/04/2024 6:27 PM
[2024-06-04 18:30] VITALS: RESP 18
[2024-06-04 19:43] VITALS: BP 144/73; PULSE 90; TEMP 98
== END 2024-06-04 19:45 | disposition home or self-care (01) ==
LOC: EC 16:23
CPT/HCPCS: 73502; 96372; 99283

== ENCOUNTER 2024-06-08 00:14 | Emergency (ER) | payer OTHER ==
[2024-06-08 00:20] VITALS: RESP 18; TEMP 97.6
--- NOTE | 2024-06-08 00:59 | ED ---
General Adult HPI - General Chief complaint: Syncope Stated complaint: Syncope Time Seen by Provider: 06/08/24 00:22 Source: patient, EMS Mode of arrival: EMS - History of Present Illness Initial comments: Patient is a 63-year-old gentleman with past medical history of atrial fib rillation, CAD, COPD, diabetes, hypertensionPresenting today for near syncope. That he was recently had his medications changed by his reconsignment clerk. States he takes metoprolol tartrate typically twice daily however he was told by his reconsignment clerk that his heart rate was too fast to have a scheduled surgery done next week so his metoprolol was increased. Today's the first day that he increase metoprolol taking 2 tablets instead of 1 in the morning and then 1 in the afternoon. He was wearing his home pulse oximeter and heart monitor when he stood up from the couch and suddenly felt suddenly dizzy like he is going to pass out or fall. He did not pass out or fall he is able to back down. States his heart rate was 63 and pulse ox was 95%. He states his heart rate typically runs near 100 this was low for him. He currently denies any chest pain or shortness of breath, new numbness or weakness, headaches, fevers, chills, diarrhea, nausea, vomiting, abdominal pain. Currently on Eliquis. - Related Data Home Medications Medication Instructions Recorded Confirmed Montelukast [Singulair] 10 mg PO DAILY@1200 01/12/18 01/20/24 Tamsulosin [Flomax] 0.4 mg PO DAILY@1200 11/08/21 01/20/24 rOPINIRole HCL [Requip] 4 mg PO HS 11/08/21 01/20/24 Cyclobenzaprine [Flexeril] 10 mg PO TID@0600,1200,1800 11/24/21 01/20/24 Budesonide-Formot 160-4.5 Mcg 2 puff INHALATION RT-BID@0600,1800 04/11/22 01/20/24 [Symbicort 160-4.5 Mcg Inhaler] Empagliflozin [Jardiance] 10 mg PO DAILY@1200 04/11/22 01/20/24 Apixaban [Eliquis] 5 mg PO BID@0600,1800 05/13/22 01/20/24 Tiotropium 2.5 Mcg/Puff [Spiriva 2 puff INHALATION RT-DAILY 02/28/23 01/20/24 Respimat 2.5 Mcg] Omeprazole [PriLOSEC] 20 mg PO BID@0600,1800 06/27/23 01/20/24 ARIPiprazole [Abilify] 5 mg PO DAILY@0600 07/27/23 01/20/24 Latanoprost [Latanoprost 0.005%] 1 drop BOTH EYES HS 07/27/23 01/20/24 Ferrous Sulfate [Iron (65 MG 325 mg PO DAILY@1200 11/23/23 01/20/24 Elemental)] Folic Acid 1 mg PO DAILY@1200 11/23/23 01/20/24 Loratadine [Claritin] 5 mg PO BID@0600,1800 11/23/23 01/20/24 Metoprolol Tartrate [Lopressor] 50 mg PO BID@0600,1800 11/23/23 01/20/24 allopurinoL [Zyloprim] 300 mg PO DAILY@0600 11/23/23 01/20/24 Albuterol Nebulized [Ventolin 2.5 mg INHALATION RT-TID 01/20/24 01/20/24 Nebulized] Atorvastatin [Lipitor] 40 mg PO HS@1800 01/20/24 01/20/24 Lidocaine 5% Patch [Lidoderm 5% 1 patch TRANSDERM DAILY PRN 01/20/24 01/20/24 Patch] Previous Rx's Medication Instructions Recorded Doxycycline Hyclate 100 mg PO BID #20 cap 01/25/24 Acetaminophen Tab [Tylenol] 650 mg PO Q4HR PRN tab 01/26/24 Nystatin 100,000Unit/gm Cream 1 applic TOPICAL BID #1 each 01/26/24 [Mycostatin Cream] Spironolactone [Aldactone] 25 mg PO DAILY #30 tab 01/26/24 Triamcinolone 0.5% Cream [Kenalog 1 applic TOPICAL BID #1 each 01/26/24 0.5% Cream] oxyCODONE-APAP 5-325MG [Percocet 1 each PO Q6HR PRN #60 tab 01/26/24 5-325 mg] methocarbamoL [Robaxin-750] 1,500 mg PO TID PRN #30 tab 05/27/24 predniSONE 50 mg PO DAILY 5 Days #5 tab 05/27/24 methylPREDNISolone Dose Pack 4 mg PO DIRECTED #21 tab 06/04/24 [Medrol Dose Pack] Allergies Allergy/AdvReac Type Severity Reaction Status Date / Time amoxicillin trihydrate AdvReac Rapid Verified 06/08/24 00:21 [From Augmentin] Heart Rate potassium clavulanate AdvReac FELT LIKE Verified 06/08/24 00:21 [From Augmentin] HE WAS GOING TO PASS OUT FAST HEARTBEAT" pregabalin [From Lyrica] AdvReac Leg Verified 06/08/24 00:21 swelling venlafaxine [From Effexor] AdvReac Confusion Verified 06/08/24 00:21 Review of Systems ROS Statement: Those systems with pertinent positive or pertinent negative responses have been documented in the HPI. ROS Other: All systems not noted in ROS Statement are negative. Past Medical History Past Medical History: Atrial Fibrillation, Coronary Artery Disease (CAD), Heart Failure, COPD, Diabetes Mellitus, Eye Disorder, Fibromyalgia, Hypertension, Myocardial Infarction (MA), Musculoskeletal Disorder, Osteoarthritis (OA), Prostate Disorder, Vascular Disorder Additional Past Medical History / Comment(s): Chronic cough, hx pancreatitis, bilateral glaucoma, neuropathy bilateral feet, poor circulation to legs, varicose veins, RLS, hx BPH, colitis, gastritis, Al[place]renga's esophagus, hx Shingles in 2012 with joint pain since, chronic low back pain, DDD. wound to right leg, scabies 06/2023 Last Myocardial Infarction Date:: 09/02/16 History of Any Multi-Drug Resistant Organisms: None Reported Past Surgical History: Appendectomy, Cardiac Ablation, Heart Catheterization, Joint Replacement, Orthopedic Surgery, Prostate Surgery Additional Past Surgical History / Comment(s): Right knee arthroscopy, right knee replacement, EGD, colonoscopy, TURP, cardioversion. Past Anesthesia/Blood Transfusion Reactions: No Reported Reaction Additional Past Anesthesia/Blood Transfusion Reaction / Comment(s): No hx blood transfusion. Past Psychological History: Anxiety, Depression Smoking Status: Former smoker Past Alcohol Use History: Occasional Past Drug Use History: Cocaine - Past Family History Father Family Medical History: CVA/TIA, Hypertension Additional Family Medical History / Comment(s): Father at the age of 38yrs from HTN/CVA. He was an alcoholic. Mother Family Medical History: COPD, Diabetes Mellitus Additional Family Medical History / Comment(s): Mother of emphysema at the age of 74 yrs (2003), mom had hx of drinking and smoking. General Exam - General Exam Comments Initial Comments: PE: CONSTITUTIONAL: [no apparent distress, well appearing] SKIN: [warm, dry, no jaundice, hives or petechiae; diffuse erythema the bilateral distal lower extremities, dry cracked skin of the bilateral distal lower extremities] EYES:[ pupils are equally round, extraocular movements intact without nystagmus, clear conjunctiva, non-icteric sclera] HENT: [normocephalic, atraumatic, moist mucus membranes, oropharynx clear without exudates] NECK: , [Full range of motion, normal appearance] PULMONARY: [clear to auscultation without wheezes, rhonchi, or rales, normal excursion, no accessory muscle use and no stridor] CARDIOVASCULAR:[ regular rate, rhythm, normal S1 and S2. No appreciated murmurs, rubs or gallops. Strong radial pulses with intact distal perfusion. No lower extremity edema] GASTROINTESTINAL: [soft, active bowel sounds throughout, mildly distended, left upper quadrant tenderness to palpation, non-distended, no palpable masses, no rebound or guarding. No hepatosplenomegaly] GENITOURINARY: MUSCULOSKELETAL: [Extremities have no gross deformity, no edema, or swelling. No calf swelling ] NEUROLOGIC: [_a/o x 3, GCS 15, normal mentation and speech. Moves all extremities x 4 without motor or sensory deficit] PSYCHIATRIC:[ _normal mood and affect, thought process is clear and linear] Course Vital Signs 06/08/24 06/08/24 06/08/24 00:17 03:31 04:55 Temperature 97.6 F Pulse Rate 86 92 Respiratory 18 18 Rate Blood Pressure 114/75 110/65 Blood Pressure 122/60 [Left Arm Supine] Blood Pressure [Sitting] O2 Sat by Pulse 100 Oximetry 06/08/24 06/08/24 04:57 04:59 Temperature Pulse Rate Respiratory Rate Blood Pressure Blood Pressure [Left Arm Supine] Blood Pressure 107/71 118/64 [Sitting] O2 Sat by Pulse Oximetry EKG Findings - EKG Comments: EKG Findings:: EKG interpretation, sinus rhythm with frequent PVCs, rate 88 bpm, OH interval 165 ms, QRS duration 122 ms, QT/QTc 398/444 ms, left axis deviation, compared to EKG performed on 11/27/2023, T waves are more flattened in V4 V3, V5 when compared to prior, No STEMI, no ST depressions Medical Decision Making - Medical Decision Making Was pt. sent in by a medical professional or institution ([facility], RESOURCE AGENT, urgent care, hospital, or penitentiary...) When possible be specific @ -[No] Did you speak to anyone other than the patient for history (EMS, parent, family, police, friend...)? What history was obtained from this source @ -[No] Did you review nursing and triage notes (agree or disagree)? Why? @ -[I reviewed and agree with nursing and triage notes] Were old charts reviewed (outside hosp., previous admission, EMS record, old EKG, old radiological studies, urgent care reports/EKG's, penitentiary records)? Report findings @Medical records reviewed- Patient recently in this emergency department on 06/04/2024 for bilateral leg pain, history of sciatica. Differential Diagnosis (chest pain, altered mental status, abdominal pain women, abdominal pain men, vaginal bleeding, weakness, fever, dyspnea, syncope, headache, dizziness, GI bleed, back pain, seizure, CVA, palpatations, mental health, musculoskeletal)? @ -Differential Syncope: Valvular disease, hypertrophic cardiomyopathy, pulmonary embolism, tamponade, tachycardia, bradycardia, MA, hypovolemia, hemorrhage, dissection, anemia, intracranial hemorrhage, seizure, hypoglycemia, carbon monoxide poisoning, this is not meant to be an all-inclusive list. EKG interpreted by me (3pts min.). @ -[As above] X-rays interpreted by me (1pt min.). @ -No cardiomegaly, consolidations or pneumothorax CT interpreted by me (1pt min.). @Free-fluid in the abdomen, no free air or perforation or obstruction U/S interpreted by me (1pt. min.). @ -[None done] What testing was considered but not performed or refused? (CT, X-rays, U/S, labs)? Why? @ -[None] What meds were considered but not given or refused? Why? @ -[None] Did you discuss the management of the patient with other professionals (professionals i.e. ROM[facility] Alcantar, RESOURCE AGENT, lab, RT, psych nurse, public health social worker, naphthol soaping machine operator, teacher, anti air warfare operations officer, case resource manager)? Give summary @ -[No] Was smoking cessation discussed for >3mins.? @ -[No] Was critical care preformed (if so, how long)? @ -[No] Were there social determinants of health that impacted care today? How? (Homelessness, low income, unemployed, alcoholism, drug addiction, transportation, low edu. Level, literacy, decrease access to med. care, custodial, rehab)? @ -[No] Was there de-escalation of care discussed even if they declined (Discuss DNR or withdrawal of care, Hospice)? @ -[No] What co-morbidities impacted this encounter? (DM, HTN, Smoking, COPD, CAD, Cancer, CVA, ARF, Chemo, Hep., AIDS, mental health diagnosis, sleep apnea, morbid obesity)? @ -[None] ED, hypertension, atrial fibrillation Was patient admitted / discharged? Hospital course, mention meds given and route, prescriptions, significant lab abnormalities, going to OR and other pertinent info. @ -[hospital course] discharged Patient is a 63-year-old gentleman with past medical history of hypertension, atrial fibrillation, COPD, diabetes presenting today for near syncope. On my assessment patient is chronically ill-appearing but no acute distress. Resting comfortably. Respirations unlabored. Irregular rhythm on cardiac exam but no murmurs rubs or gallops. 2+ radial pulses palpated, lungs are clear to auscultation bilaterally without wheezes rhonchi or stridor. No lower extremity edema. No patient did have left upper quadrant tenderness palpation abdomen was mildly distended patient patient states that he had fallen forward on his walker about 1 week ago. Has not been seen for this previously. Denies black or bloody stools, nausea and vomiting. Did not note abdominal pain until abdomen is palpated. Suspect near syncope was secondary to medication change and increase in patient's with Toprol however differential diagnosis remains broad, will obtain cardiac workup in addition to CT abdomen pelvis. Patient did request Dilaudid for chronic left lower extremity pain. Will provide this sufficiently comfortable pending workup. He is agreeable with plan. Reviewed patient's labs significant for mild leukocytosis white blood cell count 11.3, hemoglobin within normal limits at 13.1, hypokalemia potassium 2.9, ordered 40 mg oral replacement, BUN/creatinine 30/1.56, creatinine is somewhat increased from 04/18/2024 when it was previously 1.1 suspect this could be secondary to volume depletion as patient does appear somewhat dry opponent 0.1 7 repeat troponin 0.014, urinalysis shows 3+ glucose. Discussed with patient hypokalemia and BO. We discussed the importance of following up with his primary care provider for recheck of his kidney function levels and calling his reconsignment clerk soon as possible to further discuss adjustments to his medications. For this time patient will go back to his normal metoprolol dosage until he obtains further recommendations of his reconsignment clerk he is comfortable discharge at this point. Patient was stood orthostatic vital signs were obtained after patient was given IV fluids. He remained asymptomatic was able to ambulate his normal weight at home Undiagnosed new problem with uncertain prognosis? @ -[No] Drug Therapy requiring intensive monitoring for toxicity (Heparin, Nitro, Insulin, Cardizem)? @ -[No] Were any procedures done? @ -[No] Diagnosis/symptom? @ -[default] Acute, or Chronic, or Acute on Chronic? @ -[default] Uncomplicated (without systemic symptoms) or Complicated (systemic symptoms)? @ -[default] Side effects of treatment? @ -[No] Exacerbation, Progression, or Severe Exacerbation? @ -[No] Poses a threat to life or bodily function? How? (Chest pain, USA, MA, pneumonia, PE, COPD, DKA, ARF, appy, cholecystitis, CVA, Diverticulitis, Homicidal, Suicidal, threat to staff... and all critical care pts) @ -[No] - Lab Data Result diagrams: 06/08/24 00:59 06/08/24 00:59 Lab Results 06/08/24 06/08/24 06/08/24 Range/Units 00:59 00:59 00:59 WBC 11.3 H (3.8-10.6) k/uL RBC 3.98 L (4.30-5.90) m/uL Hgb 13.1 (13.0-17.5) gm/dL Hct 38.8 L (39.0-53.0) % MCV 97.5 (80.0-100.0) fL MCH 32.9 (25.0-35.0) pg MCHC 33.8 (31.0-37.0) g/dL RDW 15.4 (11.5-15.5) % Plt Count 238 (150-450) k/uL MPV 7.5 Neutrophils % 76 % Lymphocytes % 15 % Monocytes % 6 % Eosinophils % 1 % Basophils % 0 % Neutrophils # 8.6 H (1.3-7.7) k/uL Lymphocytes # 1.7 (1.0-4.8) k/uL Monocytes # 0.7 (0-1.0) k/uL Eosinophils # 0.1 (0-0.7) k/uL Basophils # 0.0 (0-0.2) k/uL PT 10.8 (10.0-12.5) sec INR 1.0 (<1.2) APTT 25.1 (22.0-30.0) sec Sodium 132 L (137-145) mmol/L Potassium 2.9 L (3.5-5.1) mmol/L Chloride 99 (98-107) mmol/L Carbon Dioxide 24 (22-30) mmol/L Anion Gap 9 mmol/L BUN 30 H (9-20) mg/dL Creatinine 1.56 H (0.66-1.25) mg/dL Est GFR (CKD-EPI)AfAm 54 (>60 ml/min/1.73 sqM) Est GFR (CKD-EPI)NonAf 47 (>60 ml/min/1.73 sqM) Glucose 109 H (74-99) mg/dL Calcium 8.5 (8.4-10.2) mg/dL Magnesium 1.6 (1.6-2.3) mg/dL Total Bilirubin 0.6 (0.2-1.3) mg/dL AST 26 (17-59) U/L ALT 19 (4-49) U/L Alkaline Phosphatase 93 (38-126) U/L Troponin I (0.000-0.034) ng/mL Total Protein 6.4 (6.3-8.2) g/dL Albumin 3.6 (3.5-5.0) g/dL Urine Color Urine Appearance (Clear) Urine pH (5.0-8.0) Ur Specific [place] (1.001-1.035) Urine Protein (Negative) Urine Glucose (UA) (Negative) Urine Ketones (Negative) Urine Blood (Negative) Urine Nitrite (Negative) Urine Bilirubin (Negative) Urine Urobilinogen (<2.0) mg/dL Ur Leukocyte Esterase (Negative) 06/08/24 06/08/24 06/08/24 Range/Units 00:59 01:08 04:12 WBC (3.8-10.6) k/uL RBC (4.30-5.90) m/uL Hgb (13.0-17.5) gm/dL Hct (39.0-53.0) % MCV (80.0-100.0) fL MCH (25.0-35.0) pg MCHC (31.0-37.0) g/dL RDW (11.5-15.5) % Plt Count (150-450) k/uL MPV Neutrophils % % Lymphocytes % % Monocytes % % Eosinophils % % Basophils % % Neutrophils # (1.3-7.7) k/uL Lymphocytes # (1.0-4.8) k/uL Monocytes # (0-1.0) k/uL Eosinophils # (0-0.7) k/uL Basophils # (0-0.2) k/uL PT (10.0-12.5) sec INR (<1.2) APTT (22.0-30.0) sec Sodium (137-145) mmol/L Potassium (3.5-5.1) mmol/L Chloride (98-107) mmol/L Carbon Dioxide (22-30) mmol/L Anion Gap mmol/L BUN (9-20) mg/dL Creatinine (0.66-1.25) mg/dL Est GFR (CKD-EPI)AfAm (>60 ml/min/1.73 sqM) Est GFR (CKD-EPI)NonAf (>60 ml/min/1.73 sqM) Glucose (74-99) mg/dL Calcium (8.4-10.2) mg/dL Magnesium (1.6-2.3) mg/dL Total Bilirubin (0.2-1.3) mg/dL AST (17-59) U/L ALT (4-49) U/L Alkaline Phosphatase (38-126) U/L Troponin I 0.017 0.014 (0.000-0.034) ng/mL Total Protein (6.3-8.2) g/dL Albumin (3.5-5.0) g/dL Urine Color Light Yellow Urine Appearance Clear (Clear) Urine pH 5.5 (5.0-8.0) Ur Specific [place] 1.007 (1.001-1.035) Urine Protein Negative (Negative) Urine Glucose (UA) 3+ H (Negative) Urine Ketones Negative (Negative) Urine Blood Negative (Negative) Urine Nitrite Negative (Negative) Urine Bilirubin Negative (Negative) Urine Urobilinogen <2.0 (<2.0) mg/dL Ur Leukocyte Esterase Negative (Negative) Disposition Clinical Impression: Near syncope, Hypokalemia, BO (acute kidney injury) Disposition: HOME SELF-CARE Condition: Good Instructions (If sedation given, give patient instructions): Near Syncope (ED) Additional Instructions: Every disease is a spectrum and a small chance still exists that a serious condition could develop, for this reason, please monitor yourself closely for new, changing or worsening symptoms, return of symptoms, chest pain, difficulty in breathing, swelling in your legs, [fever], inability to tolerate/keep down fluids or your medications, inability to follow up with outpatient providers as instructed and should you experience these symptoms or should you have any further concerns for your wellbeing please return to the ED or call 911 immediately. Please discuss with your reconsignment clerk recommendations regarding your metoprolol dosing. For this time please return to your normal twice daily metoprolol. Please replenish fluids. Eat high potassium foods such as bananas, or juice and leafy greens. Please up with your primary care provider to recheck potassium and kidney function levels. PLEASE call your primary care physician as soon as possible to arrange / discuss plan for followup appointment. Appointment in the next 1-3 days is strongly encouraged if possible. PLEASE let us know here before you leave if there is anything further we can do to be of any assistance. Take care and feel Better! Is patient prescribed a controlled substance at d/c from ED?: No Referrals: Albert Chavez MD [Primary Care Provider] - 1-2 days
[2024-06-08 01:04] LABS: Basophils % (A) 0 %; Eosinophils # (A) 0.1 k/uL (0-0.7); Eosinophils % (A) 1 %; HCT 38.8 % (39.0-53.0); HGB 13.1 gm/dL (13.0-17.5); Lymphocytes # (A) 1.7 k/uL (1.0-4.8); Lymphocytes % (A) 15 %; MCH 32.9 pg (25.0-35.0); MCHC 33.8 g/dL (31.0-37.0); MCV 97.5 fL (80.0-100.0); Mean Platelet Volume 7.5; Monocytes # (A) 0.7 k/uL (0-1.0); Monocytes % (A) 6 %; Neutrophils # (A) 8.6 k/uL (1.3-7.7); Neutrophils % (A) 76 %; Platelet Count 238 k/uL (150-450); RBC 3.98 m/uL (4.30-5.90); RDW 15.4 % (11.5-15.5); WBC 11.3 k/uL (3.8-10.6)
[2024-06-08] MEDS: HYDROmorphone 1 MG/ML 1 ML SYRINGE IVP STA ×2 (01:04→05:17)
[2024-06-08] MEDS: SODIUM CHLORIDE 0.9% 500 ML 500 ML IV STA (01:04)
[2024-06-08 01:10] LABS: ALT 19 U/L (4-49); AST 26 U/L (17-59); African American GFR (CKD) 54 (>60 ml/min/1.73 sqM); Albumin 3.6 g/dL (3.5-5.0); Alkaline Phosphatase 93 U/L (38-126); Anion Gap 9 mmol/L; Blood Urea Nitrogen 30 mg/dL (9-20); Calcium 8.5 mg/dL (8.4-10.2); Carbon Dioxide 24 mmol/L (22-30); Chloride 99 mmol/L (98-107); Glucose 109 mg/dL (74-99); Magnesium 1.6 mg/dL (1.6-2.3); Non-African American GFR(CKD) 47 (>60 ml/min/1.73 sqM); Potassium 2.9 mmol/L (3.5-5.1); Sodium 132 mmol/L (137-145); Total Bilirubin 0.6 mg/dL (0.2-1.3); Total Protein 6.4 g/dL (6.3-8.2)
[2024-06-08 01:26] LABS: Partial Thromboplastin Time 25.1 sec (22.0-30.0); Prothrombin Time 10.8 sec (10.0-12.5)
[2024-06-08 01:28] LABS: Appearance,Urine Clear (Clear); Bilirubin,Urine Negative (Negative); Blood,Urine Negative (Negative); Color,Urine Light Yellow; Glucose,Urine (UA) 3+ (Negative); Ketones,Urine Negative (Negative); Leukocyte Esterase,Urine Negative (Negative); Nitrite,Urine Negative (Negative); PH, Urine 5.5 (5.0-8.0); Protein,Urine Negative (Negative); Specific Gravity,Urine 1.007 (1.001-1.035); Urobilinogen,Urine <2.0 mg/dL (<2.0)
--- NOTE | 2024-06-08 03:03 | CT ---
EXAM: CT Abdomen and Pelvis Without Intravenous Contrast CLINICAL HISTORY: CT Reason: fall, LUQ pain TECHNIQUE: Axial computed tomography images of the abdomen and pelvis without intravenous contrast. CTDI is 12.3 mGy and DLP is 745.6 mGy-cm. This CT exam was performed using one or more of the following dose reduction techniques: automated exposure control, adjustment of the mA and/or kV according to patient size, and/or use of iterative reconstruction technique. COMPARISON: November 23, 2023 FINDINGS: Lung bases: Unremarkable. No mass. No consolidation. ABDOMEN: Liver: Unremarkable. Gallbladder and bile ducts: Unremarkable. No calcified stones. No ductal dilation. Pancreas: Unremarkable. No ductal dilation. Spleen: Unremarkable. No splenomegaly. Adrenals: Unremarkable. No mass. Kidneys and ureters: There is a nonobstructive 2 mm calyceal calculus in the right kidney. No hydronephrosis or ureterolithiasis is seen. Slight perinephric stranding is present, similar to previous. This is nonspecific. Stomach and bowel: Unremarkable. No obstruction. No mucosal thickening. PELVIS: Appendix: No findings to suggest acute appendicitis. Bladder: Unremarkable. No stones. Reproductive: Unremarkable as visualized. ABDOMEN and PELVIS: Intraperitoneal space: Unremarkable. No free air. No significant fluid collection. Bones/joints: Moderate multilevel degenerative changes throughout the spine. No acute fracture or subluxation is seen. There is degenerative fusion of L2-3. Soft tissues: Unremarkable. Vasculature: The abdominal aorta is heavily calcified but nondilated. This is a noncontrast study. Lymph nodes: Unremarkable. No enlarged lymph nodes. IMPRESSION: There is a nonobstructive 2 mm calyceal calculus in the right kidney. No hydronephrosis or ureterolithiasis is seen. No acute traumatic findings are seen in the abdomen or pelvis. Bowel loops are nondilated. No acute inflammatory changes are seen involving the bowel.
[2024-06-08] MEDS: POTASSIUM BICARBONATE/CIT AC 20 MEQ TABLET.EFF PO ONE (03:30)
--- NOTE | 2024-06-08 03:30 | XR ---
EXAM: XR Chest, 2 Views CLINICAL HISTORY: ITS.REASON XR Reason: near syncope TECHNIQUE: Frontal and lateral views of the chest. COMPARISON: No relevant prior studies available. FINDINGS: Lungs: No consolidation or mass. Pleural space: No effusion. Heart: No cardiomegaly. Bones/joints: No acute findings. IMPRESSION: No acute cardiopulmonary process.
[2024-06-08 03:33] VITALS: PULSE 92
[2024-06-08 05:01] VITALS: BP 118/64
== END 2024-06-08 06:31 | disposition home or self-care (01) ==
LOC: EC 00:14
CPT/HCPCS: 36415; 71046; 74176; 80053; 81003; 83735; 84484; 85025; 85610; 85730; 93005; 96361; 96374; 96376; 99285

== ENCOUNTER → 2024-06-19 | Outpatient (CLI) | payer OTHER | END | disposition home or self-care (01) | LOC: LABPAT 13:47 | PROVIDERS: ATTEND Orthopaedic Surgery | DX: Z01.812 Encounter for preprocedural laboratory examination (principal); Z22.322 Carrier or suspected carrier of Methicillin resistant Staphylococcus aureus; M48.061 Spinal stenosis, lumbar region without neurogenic claudication; M47.26 Other spondylosis with radiculopathy, lumbar region | CPT/HCPCS: 36415; 86850; 86900; 86901; 87070 ==

== ENCOUNTER 2024-06-23 15:49 | Emergency (ER) | payer OTHER ==
[2024-06-23 16:13] VITALS: TEMP 97.7
--- NOTE | 2024-06-23 16:38 | ED ---
Back Pain HPI - General Chief Complaint: Back Pain/Injury Stated Complaint: sciatic nerve pain Time Seen by Provider: 06/23/24 16:34 Source: patient, RN notes reviewed Limitations: physical limitation - History of Present Illness Initial Comments: This is a 64-year-old male with history of sciatica presenting with bilateral leg pain x 6 months. Patient states he is having a flareup of his chronic pain. He is scheduled for surgery on his lower back in [address] Yu and states he was told to stop his anti-inflammatories before the surgery, which he believes was causing his flareup. Describes a sharp pain worse with changing position and movement. States he tried a Tylenol and his sisters Percocet earlier with no relief. Denies saddle anesthesia. Denies bowel or bladder incontinence. States he has not eaten or drink anything today due to pain. - Related Data Home Medications Medication Instructions Recorded Confirmed Montelukast [Singulair] 10 mg PO DAILY@1200 01/12/18 06/19/24 Tamsulosin [Flomax] 0.4 mg PO DAILY@1200 11/08/21 06/19/24 rOPINIRole HCL [Requip] 4 mg PO HS 11/08/21 06/19/24 Cyclobenzaprine [Flexeril] 10 mg PO TID@0600,1200,1800 11/24/21 06/19/24 Empagliflozin [Jardiance] 10 mg PO DAILY@1200 04/11/22 06/19/24 Apixaban [Eliquis] 5 mg PO BID@0600,1800 05/13/22 06/19/24 Omeprazole [PriLOSEC] 20 mg PO BID@0600,1800 06/27/23 06/19/24 ARIPiprazole [Abilify] 5 mg PO DAILY@0600 07/27/23 06/19/24 Latanoprost [Latanoprost 0.005%] 1 drop BOTH EYES 07/27/23 06/19/24 Folic Acid 1 mg PO DAILY@1200 11/23/23 06/19/24 Loratadine [Claritin] 5 mg PO BID@0600,1800 11/23/23 06/19/24 Metoprolol Tartrate [Lopressor] 50 mg PO BID@0600,1800 11/23/23 06/19/24 allopurinoL [Zyloprim] 300 mg PO DAILY@0600 11/23/23 06/19/24 Atorvastatin [Lipitor] 40 mg PO HS@1800 01/20/24 06/19/24 Fluticasone/Umeclidin/Vilanter 1 inhalation INHALATION QAM 06/19/24 06/19/24 [Trelegy Ellipta 100-62.5-25] Previous Rx's Medication Instructions Recorded Spironolactone [Aldactone] 25 mg PO DAILY #30 tab 01/26/24 Allergies Allergy/AdvReac Type Severity Reaction Status Date / Time amoxicillin trihydrate AdvReac Rapid Verified 06/23/24 16:09 [From Augmentin] Heart Rate potassium clavulanate AdvReac FELT LIKE Verified 06/23/24 16:09 [From Augmentin] HE WAS GOING TO PASS OUT FAST HEARTBEAT" pregabalin [From Lyrica] AdvReac Leg Verified 06/23/24 16:09 swelling venlafaxine [From Effexor] AdvReac Confusion Verified 06/23/24 16:09 Review of Systems ROS Statement: Those systems with pertinent positive or pertinent negative responses have been documented in the HPI. ROS Other: All systems not noted in ROS Statement are negative. Past Medical History Past Medical History: Atrial Fibrillation, Coronary Artery Disease (CAD), Heart Failure, COPD, Diabetes Mellitus, Eye Disorder, Fibromyalgia, Hypertension, Myocardial Infarction ([place]), Musculoskeletal Disorder, Osteoarthritis (OA), Prostate Disorder, Vascular Disorder Additional Past Medical History / Comment(s): Chronic cough, hx pancreatitis, bilateral glaucoma, neuropathy bilateral feet, poor circulation to legs, varicose veins, RLS, hx BPH, colitis, gastritis, [place]'s esophagus, hx Shingles in 2012 with joint pain since, chronic low back pain, DDD. wound to right leg, scabies 06/2023 Last Myocardial Infarction Date:: 09/02/16 History of Any Multi-Drug Resistant Organisms: None Reported Past Surgical History: Appendectomy, Cardiac Ablation, Heart Catheterization, Joint Replacement, Orthopedic Surgery, Prostate Surgery Additional Past Surgical History / Comment(s): Right knee arthroscopy, right knee replacement, EGD, colonoscopy, TURP, cardioversion. Past Anesthesia/Blood Transfusion Reactions: No Reported Reaction Additional Past Anesthesia/Blood Transfusion Reaction / Comment(s): No hx blood transfusion. Past Psychological History: Anxiety, Depression Smoking Status: Former smoker Past Alcohol Use History: Occasional Past Drug Use History: None Reported - Past Family History Father Family Medical History: CVA/TIA, Hypertension Additional Family Medical History / Comment(s): Father at the age of 38yrs from HTN/CVA. He was an alcoholic. Mother Family Medical History: COPD, Diabetes Mellitus Additional Family Medical History / Comment(s): Mother of emphysema at the age of 74 yrs (2003), mom had hx of drinking and smoking. General Exam Limitations: physical limitation General appearance: alert, in no apparent distress Head exam: Present: atraumatic, normocephalic, normal inspection Eye exam: Present: normal appearance, PERRL, EOMI. Absent: scleral icterus, conjunctival injection, periorbital swelling Back exam: Present: normal inspection, full ROM (Pain with flexion and extension of back), other (No saddle anesthesia, full strength of bilateral hips with full sensation and DP pulses bilaterally). Absent: tenderness, CVA tenderness (R), CVA tenderness (L), rash noted Neurological exam: Present: alert, oriented X3 Psychiatric exam: Present: normal affect, normal mood Skin exam: Present: warm, dry, intact, normal color. Absent: rash Course Vital Signs 06/23/24 06/23/24 06/23/24 16:09 16:21 17:32 Temperature 97.7 F Pulse Rate 89 95 90 Respiratory 20 18 Rate Blood Pressure 87/62 95/58 97/62 O2 Sat by Pulse 96 99 Oximetry Medical Decision Making - Medical Decision Making Was pt. sent in by a medical professional or institution (, PA, GAS REFRIGERATOR SERVICER, urgent care, hospital, or halfway...) When possible be specific @ -No Did you speak to anyone other than the patient for history (EMS, parent, family, police, friend...)? What history was obtained from this source @ -No Did you review nursing and triage notes (agree or disagree)? Why? @ -I reviewed and agree with nursing and triage notes Were old charts reviewed (outside hosp., previous admission, EMS record, old EKG, old radiological studies, urgent care reports/EKG's, halfway records)? Report findings @ -Previous ER visit for same complaint reviewed, MRI 917 reviewed which revealed increased signal within the spinal cord on sagittal plane posterior to T10-11 level, no disc herniations, spinal cord stenosis, or cord contact Differential Diagnosis (chest pain, altered mental status, abdominal pain women, abdominal pain men, vaginal bleeding, weakness, fever, dyspnea, syncope, headache, dizziness, GI bleed, back pain, seizure, CVA, palpatations, mental health, musculoskeletal)? @ -Differential Musculoskeletal Muscular strain, contusion, ligament sprain, fracture, arthritis, septic arthritis, bursitis, cellulitis, muscle spasm, nerve compression, DVT, arterial occlusion, herpes zoster, electrolyte abnormality, tumor.... This is not meant to be in all inclusive list EKG interpreted by me (3pts min.). @ -None X-rays interpreted by me (1pt min.). @ -None done CT interpreted by me (1pt min.). @ -None done U/S interpreted by me (1pt. min.). @ -None done What testing was considered but not performed or refused? (CT, X-rays, U/S, l abs)? Why? @ -Imaging considered but not performed due to patient had MRI lower back on 917 and is scheduled for surgery with Dr. Yu in 2 days. What meds were considered but not given or refused? Why? @ -None Did you discuss the management of the patient with other professionals (professionals i.e. , PA, GAS REFRIGERATOR SERVICER, lab, RT, psych nurse, director social service, veterinary physiologist, teacher, fisheries enforcement officer, supportive employment case manager)? Give summary @ -No Was smoking cessation discussed for >3mins.? @ -No Was critical care preformed (if so, how long)? @ -No Were there social determinants of health that impacted care today? How? (Homelessness, low income, unemployed, alcoholism, drug addiction, transportation, low edu. Level, literacy, decrease access to med. care, skilled nursing, rehab)? @ -No Was there de-escalation of care discussed even if they declined (Discuss DNR or withdrawal of care, Hospice)? DNR status @ -No What co-morbidities impacted this encounter? (DM, HTN, Smoking, COPD, CAD, Cancer, CVA, ARF, Chemo, Hep., AIDS, mental health diagnosis, sleep apnea, morbid obesity)? @ -None Was patient admitted / discharged? Hospital course, mention meds given and route, prescriptions, significant lab abnormalities, going to OR and other pertinent info. @ -Discharge. This is a 64-year-old male presenting with acute flare of chronic sciatica pain. Patient is scheduled for low back surgery with Dr. Yu in 2 days and was told to discontinue his anti-inflammatory medication before the surgery which is why he believes he is having a flareup today. No acute symptoms. BP 87/62, heart rate 89 bpm. Neurovascularly intact. No saddle anesthesia. Patient is provided with IV fluids, Dilaudid, Norflex, Solu-Medrol, and lidocaine patch. Due to low blood pressure, basic lab work was taken and is unremarkable besides hypokalemia at 3.3 which is comparable to baseline. Upon reevaluation, blood pressure is 97/62, patient states symptoms have improved and feels stable for discharge. I believe this is reasonable at this time. Advised to follow-up with PCP. Return precautions discussed and patient is agreeable to plan. Case was discussed with my ED attending Dr. Funes. Patient discharged in stable condition. Undiagnosed new problem with uncertain prognosis? @ -No Drug Therapy requiring intensive monitoring for toxicity (Heparin, Nitro, Insulin, Cardizem)? @ -No Were any procedures done? @ -No Diagnosis/symptom? @ -Acute on chronic back pain Acute, or Chronic, or Acute on Chronic? @ -Acute on chronic Uncomplicated (without systemic symptoms) or Complicated (systemic symptoms)? @ -Uncomplicated Side effects of treatment? @ -No Exacerbation, Progression, or Severe Exacerbation? @ -No Poses a threat to life or bodily function? How? (Chest pain, [place], [place], pneumonia, PE, COPD, DKA, ARF, appy, cholecystitis, CVA, Diverticulitis, Homicidal, Suicidal, threat to staff... and all critical care pts) @ -No - Lab Data Result diagrams: 06/23/24 18:55 06/23/24 18:55 Lab Results 06/23/24 06/23/24 06/23/24 Range/Units 18:55 18:55 18:55 WBC 8.9 (3.8-10.6) k/uL RBC 3.56 L (4.30-5.90) m/uL Hgb 11.8 L (13.0-17.5) gm/dL Hct 34.7 L (39.0-53.0) % MCV 97.4 (80.0-100.0) fL MCH 33.2 (25.0-35.0) pg MCHC 34.1 (31.0-37.0) g/dL RDW 14.4 (11.5-15.5) % Plt Count 254 (150-450) k/uL MPV 6.8 Neutrophils % 76 % Lymphocytes % 15 % Monocytes % 4 % Eosinophils % 3 % Basophils % 0 % Neutrophils # 6.7 (1.3-7.7) k/uL Lymphocytes # 1.4 (1.0-4.8) k/uL Monocytes # 0.4 (0-1.0) k/uL Eosinophils # 0.2 (0-0.7) k/uL Basophils # 0.0 (0-0.2) k/uL Sodium 132 L (137-145) mmol/L Potassium 3.3 L (3.5-5.1) mmol/L Chloride 99 (98-107) mmol/L Carbon Dioxide 27 (22-30) mmol/L Anion Gap 6 mmol/L BUN 14 (9-20) mg/dL Creatinine 1.04 (0.66-1.25) mg/dL Est GFR (CKD-EPI)AfAm 88 (>60 ml/min/1.73 sqM) Est GFR (CKD-EPI)NonAf 76 (>60 ml/min/1.73 sqM) Glucose 83 (74-99) mg/dL Plasma Lactic Acid Carlos Manuel 1.6 (0.7-2.0) mmol/L Calcium 7.9 L (8.4-10.2) mg/dL Total Bilirubin 0.6 (0.2-1.3) mg/dL AST 21 (17-59) U/L ALT 20 (4-49) U/L Alkaline Phosphatase 91 (38-126) U/L Total Protein 5.8 L (6.3-8.2) g/dL Albumin 3.0 L (3.5-5.0) g/dL Disposition Clinical Impression: Low back pain Disposition: HOME SELF-CARE Condition: Stable Additional Instructions: Please return to the Emergency Department if symptoms worsen or any other concerns. Is patient prescribed a controlled substance at d/c from ED?: No Referrals: Albert Chavez MD [Primary Care Provider] - 1-2 days Time of Disposition: 19:54
[2024-06-23] MEDS: HYDROmorphone 1 MG/ML 1 ML SYRINGE IVP STA ×2 (16:53→17:44)
[2024-06-23] MEDS: ORPHENADRINE 30 MG/ML 2 ML VIAL IVP STA (16:54)
[2024-06-23] MEDS: LIDOCAINE 4% PATCH TOPICAL ONE (16:54)
[2024-06-23] MEDS: SODIUM CHLORIDE 0.9% 1,000 ML IV STA (16:55)
[2024-06-23] MEDS: methylPREDNISolone SOD SUCCI 125 MG/2 ML VIAL IV STA (18:21)
[2024-06-23 19:13] LABS: Basophils % (A) 0 %; Eosinophils # (A) 0.2 k/uL (0-0.7); Eosinophils % (A) 3 %; HCT 34.7 % (39.0-53.0); HGB 11.8 gm/dL (13.0-17.5); Lymphocytes # (A) 1.4 k/uL (1.0-4.8); Lymphocytes % (A) 15 %; MCH 33.2 pg (25.0-35.0); MCHC 34.1 g/dL (31.0-37.0); MCV 97.4 fL (80.0-100.0); Mean Platelet Volume 6.8; Monocytes # (A) 0.4 k/uL (0-1.0); Monocytes % (A) 4 %; Neutrophils # (A) 6.7 k/uL (1.3-7.7); Neutrophils % (A) 76 %; Platelet Count 254 k/uL (150-450); RBC 3.56 m/uL (4.30-5.90); RDW 14.4 % (11.5-15.5); WBC 8.9 k/uL (3.8-10.6)
[2024-06-23 19:31] LABS: ALT 20 U/L (4-49); AST 21 U/L (17-59); African American GFR (CKD) 88 (>60 ml/min/1.73 sqM); Alkaline Phosphatase 91 U/L (38-126); Anion Gap 6 mmol/L; Blood Urea Nitrogen 14 mg/dL (9-20); Calcium 7.9 mg/dL (8.4-10.2); Carbon Dioxide 27 mmol/L (22-30); Chloride 99 mmol/L (98-107); Glucose 83 mg/dL (74-99); Non-African American GFR(CKD) 76 (>60 ml/min/1.73 sqM); Potassium 3.3 mmol/L (3.5-5.1); Sodium 132 mmol/L (137-145); Total Bilirubin 0.6 mg/dL (0.2-1.3); Total Protein 5.8 g/dL (6.3-8.2)
[2024-06-23 20:22] VITALS: BP 117/64; PULSE 67; RESP 16
== END 2024-06-23 20:15 | disposition home or self-care (01) ==
LOC: EC 15:49
DX: G89.29 Other chronic pain (principal); M54.50 Low back pain, unspecified; Z87.891 Personal history of nicotine dependence; Z88.0 Allergy status to penicillin; Z88.1 Allergy status to other antibiotic agents; Z88.8 Allergy status to other drugs, medicaments and biological substances; Z90.49 Acquired absence of other specified parts of digestive tract
CPT/HCPCS: 36415; 80053; 83605; 85025; 99283; 96374; 96375 ×2; 96376; 96361; J2360; J1171; J2919

== ENCOUNTER 2024-06-25 05:32 | Inpatient (IN) | payer OTHER ==
--- NOTE | 2024-06-24 19:28 | P.HPOR ---
History of Present Illness H&P Date: 06/19/24 Chief Complaint: LEFT .D:Date: 06/19/24 : 04:34pm .T:Title: RECHECK/PRE-OP H1 [facility] [place] [facility] [address] [place] [address] [place] [address]| DO POLO BARRON, MSN, AUTOMATION TECHNOLOGIST-C CLINICAL SUMMARY: Mr. Herrera is a 64-year-old male presenting for pre-operative evaluation for scheduled L4-S1 left laminoforaminotomy. He reports progressive severe lumbar pain (VAS 8/10) over the past 5 months with bilateral lower extremity radiation, right side worse than left. His condition has significantly deteriorated, requiring wheelchair use for longer distances and walker for short distances, with noted right lower extremity muscle atrophy. Physical examination reveals bilateral lower extremity weakness (4/5 throughout), positive straight leg raise, decreased Achilles reflexes (1+ bilaterally), and L4-S1 dermatomal deficits. Imaging demonstrates severe right and wvmvvmol-gv-djzlns left foramina l stenosis at L5-S1, moderate right foraminal narrowing at L4-5, and evidence of L2-3 autofusion with complete disc height loss. Conservative measures including PT, medications (Flexeril, Robaxin), and prior injections have failed to provide relief. The patient is on Eliquis, which will require perioperative management. DEMOGRAPHICS: Age: 64 year Height: 6' Weight: 220 lbs BP:/ BMI: 29.84 kg/m2 Occupation: N/A CC: lumbar pain * VAS: 8 HISTORY: Mr. Herrera presents to the office today, 06/19/24, for a pre-operative visit preceding his L4-S1 LEFT LAMINOFORAMINOTOMY. Patient continues to describe a constant severe throbbing, shooting, and stabbing lumbar pain that has been progressing over the last 5 months. In addition to his lumbar pain he states it radiates into his bilateral lower extremities associated with numbness and tingling. He states the right lower extremity symptoms is worse. He has noticed an increase of weakness into his right lower extremity with his muscle becoming thinner. He has been utilizing a wheelchair for the past few weeks for longer distance and using a walker for short distance. He is currently taking Motrin without resolution of his symptoms. Patient denies any f/c/sob/cp, perineal numbness or tingling, bowel, or bladder incontinence/retention. Patient is ambulatory with a walker. P1 The patients past social, medical, family, surgical history, as well as review of systems, have been reviewed. Please refer to the History and Physical form that has been scanned into our electronic medical record system. R0 16 points review of systems completed and as stated in HPI, all other systems reviewed are negative. PAST TREATMENTS: PAST IMAGING: YES -CT, MRI, XR TRAUMA RELATED: NO - WORK RELATED: NO - PT IN LAST 6 MONTHS: YES -NO IMPROVEMENT PHYSICIAN DIRECTED HOME EXERCISE PROGRAM: YES -MINOR IMPROVEMENT ACTIVITY MODIFICAITON: YES -LIMITED BLTPP 20 LBS, HELPS WHEN DOING IT, DOESNT WHEN HE NEEDS TO DO WORK MEDICATIONS: YES, flexeril, robaxin, and icyhot -NO HELP ALTERNATIVE INTERVENTIONS (CHIROPRACTIC, ACCUPUNCTURE, MASSAGE, RICE): YES -NO HELP BRACING: NO - INJECTIONS (CASSIE, TF, RFA): No -DID NOT WORK IN THE PAST. MEDICAL HISTORY: Past Medical History: REVIEWED STATED IN CHART Past Surgical History: REVIEWED STATED IN CHART Social History: REVIEWED STATED IN CHART SMOKING: Never smoker ETOH: None SUBSTANCES: None Family History: REVIEWED STATED IN CHART P1 Current Medications: Rx: Eliquis Ref: 0 Rx: forgot med list , Ref: 0 Rx: TylenoL Ref: 0 Rx: ARIPiprazole 15 mg tablet Ref: 0 Instructions: take 1 tablet (15 mg) by oral route once daily Rx: cyclobenzaprine 10 mg tablet Ref: 0 Instructions: take 1 tablet (10 mg) by oral route 3 times per day Rx: empagliflozin 10 mg tablet Ref: 0 Instructions: take 1 tablet (10 mg) by oral route once daily in the morning Rx: ferrous sulfate 325 mg (65 mg iron) tablet Ref: 0 Instructions: take 1 tablet (325 mg) by oral route once daily Rx: folic acid Ref: 0 Rx: latanoprost 0.005 % eye drops Ref: 0 Instructions: instill 1 drop into affected eye(s) by ophthalmic route once daily in the evening Rx: Lipitor Ref: 0 Rx: loratadine 10 mg tablet Ref: 0 Instructions: take 1 tablet (10 mg) by oral route once daily Rx: metoprolol tartrate 50 mg tablet Ref: 0 Instructions: take 1 tablet (50 mg) by oral route 2 times per day with meals Rx: montelukast 10 mg tablet Ref: 0 Instructions: take 1 tablet (10 mg) by oral route once daily in the evening Rx: PriLOSEC Ref: 0 Rx: rOPINIRole 4 mg tablet Ref: 0 Instructions: take 1 tablet (4 mg) by oral route 3 times per day Rx: tamsulosin 0.4 mg capsule Ref: 0 Instructions: take 1 capsule (0.4 mg) by oral route once daily 1/2 hour following the same meal each day Rx: Trelegy Ellipta Ref: 0 Rx: Zyloprim Ref: 0 Rx: Robaxin Ref: 0 P1 PHYSICAL EXAM: General: AOX3, NAD, Well hydrate, well nourished HEENT: No lumps or masses Extremities: No color changes, no pooling INTEGUMENT: Appearance: Normal color and turgor Surgical Incisions: NA PALPATION: TTP Midline: NO Paracervical: NO Parathoracic: NO Paralumbar: YES SIJ TESTING: TESTED * [place] Finger: POS B/L * FABER4: POS * Compression: NEG * Distraction: NEG * Thigh thrust: NEG * Hip thrust: NEG POSTURAL BALANCE: Coronal: BALANCED Sagittal: BALANCED Shoulder height: LEVEL Pelvic Girdle: LEVEL ROM AND APPEARANCE: Neck: UNRESTRICTED Lumbar: RESTRICTED Shoulders: Symmetrical Hips: Symmetrical Knees: Symmetrical Hands: Symmetrical Feet: Symmetrical VASCULAR STATUS: PALPABLE PULSES B/L UE AND LE 2/4 RAD/ULNAR/DP/PT Edema: NONE NEUROLOGICAL EXAMINATION: Mental Status: Awake, alert, fully oriented with normal attention, concentration, and memory. Fluent appropriate speech. CRANIAL NERVES: I: Olfactory not assessed. II: Visual acuity normal, no visual field deficit noted with confrontation. III, IV: Normal pupillary reflexes & intact extraocular movements without nystagmus. V, : Intact symmetrical facial sensation. VII: Intact symmetrical facial motor movement: Hearing intact. IX, X: Intact gag, swallow, & normal voice. XI: Sternocleidomastoid, trapezius function intact. XII: Tongue midline with normal movements. TENSIONING: * L'HERMITTE'S SIG:NEG SPURLUNG'S SIGN:NEG CUBITAL TUNNEL COMPRESSION:NEG TINELS AT WRIST:NEG STRAIGH LEG RAISE:POS CONTRALATERAL STRAIGHT LEG RAISE: NEG MOTOR EXAM (0-5/5, NT) Muscle appearance: Symmetrical, without signs of atrophy or dystrophy UPPER EXTREMITY RIGHT LEFT Shoulder Abduction 5 5 Biceps 5 5 Triceps 5 5 Wrist Extension 5 5 Hand Intrinsics 5 5 Numerical Control Programmer 5 5 LOWER EXTREMITY RIGHT LEFT Hip Flexion 4 4 Knee Extension 4 4 Knee Flexion 4 4 Dorsiflexion 4 4 Plantarflexion 4 4 EHL 4 4 FHL 4 4 REFLEXES (0-4/2, NT): RIGHT LEFT Bicep 2 2 Brachioradialis 2 2 Triceps 2 2 Patellar 2 2 Achilles 1 1 PATHOLOGICAL REFLEXES: RIGHT LEFT JENNINGS'S ABSENT ABSENT CLONUS ABSENT ABSENT BABINSKI ABSENT ABSENT RECTAL TONE: INTACT/NT SENSATION (0-4, NT): Sensation intact to LT and Pain * C5-T1 distribution BUE * L2-S2 distribution BLE *Exceptions below* DERMATOMAL DEFICIT/RADICULAR PATTERN: L4-S1 LEFT > RIGHT GAIT AND FUNCTIONAL EVALUATION: AMBULATORY AID walker and wheelchair ROMBERG'S TEST INTACT HAND AND FINGER DEXTERITY INTACT YES DYSDIADOCHOKINESIA EXAM NEG B/L YES TOE/HEEL WALK INTACT WITH GOOD BALANCE No SQUAT AND RISE W/O ASSISTANCE TO 60 DEG KNEE FLEXION No SINGLE LEG STANCE INTACT TRENDELENBURG NEG IMAGING: MRI THORACIC AND LUMBAR SPINE STUDY DETAILS * Date: 04/30/[address] [facility] Type: MRI T-spine/L-spine without contrast Indication: Mid and low back pain with leg radiation Comparison: None available TECHNIQUE Multiplanar, multisequence imaging without contrast THORACIC FINDINGS * T10-11: Possible mild increased cord signal on sagittal images * Axial images normal - likely artifact * No significant thoracic disc herniations No thoracic canal stenosis No cord contact LUMBAR FINDINGS (By Level) L5-S1 * Foraminal Stenosis: * Right: Severe Left: Moderate to severe * Facet hypertrophy: Present, more pronounced on left Ligamentum flavum: Laxity present Disc: Desiccation present No focal disc herniation or significant bulge L4-L5 * Right facet changes No significant disc bulge or herniation No spinal canal stenosis No foraminal stenosis L3-L4 * Mild disc bulging Foraminal Narrowing: * Right: Moderate Left: Minimal * No spinal canal stenosis L2-L3 * Complete disc height loss Evidence of autofusion Neural foramina: Patent bilaterally No posterior wall displacement No focal disc herniation or bulge L1-L2 * Mild facet degenerative changes No significant disc bulge or herniation No spinal canal or foraminal stenosis T12-L1 * No significant disc bulge or herniation No spinal canal or foraminal stenosis TALBERT IMPRESSIONS * L2-L3/ L3-4: Complete disc height loss with evidence of autofusion / Moderate to severe stenosis, foraminal and central. L5-S1: Severe right and moderate to severe left foraminal stenosis L4-5: Moderate right foraminal narrowing Degenerative changes most pronounced at L2-L3 and L5-S1 levels IMPRESSION: It was my pleasure to have seen and examined Torsten. I reviewed the patient's clinical syndrome, physical findings, and imaging studies during the appointment today. It is my impression that the patient has a diagnosis of. * M48.06 - Spinal stenosis, lumbar region with neurogenic claudication (Primary) M54.16 - Radiculopathy, lumbar region, bilateral M62.81 - Muscle weakness (generalized), right lower extremity M51.36 - Other intervertebral disc degeneration, lumbar region M47.816 - Spondylosis without myelopathy or radiculopathy, lumbar region R26.2 - Difficulty walking, not elsewhere classified M62.52 - Muscle wasting and atrophy, not elsewhere classified, bilateral lower leg PLAN: DISCUSSION: -Patient states he would like to pursue surgical intervention because his condition is affecting his activities of daily living. He has tried conservative measures, but at this point has reached his maximum potential outcome with conservative treatment and has elected to pursue surgical intervention. We discussed risks and benefits as described below. He is comfortable moving forward as outlined. SURGICAL RECOMMENDATION -L4-S1 LEFT LAMINOFORAMINOTOMY Surgical Procedure Risk Review Torsten Herrera is a 63 year old male presenting for evaluation of progressive onset of Low back pain, claudicant back pain, neurogenic claudication as well as weakness, paresthesias and pain in LE b/l. It was my pleasure to have seen and examined Mr. Herrera. In our visit today we have had a chance to go over subjective complaints, physical examination findings and treatments, including the natural course history without intervention and various interventional options. The imaging demonstrates L4-S1 stenosis, severe, L>R with foraminal stenosis and lateral recess stenosis. Spondylosis nted L3-S1. There is autofusion at L2-3 noted with moderate stenosis. . On physical exam, Mr. Herrera demonstrates LLE weakness, LLE radiculopathy and tensioning signs. There is low back pain related to this as well as claudicant sx with difficulty with ambulation, toe and heel waking as well as exercise intolerance. Progressive changes despite conservative care. . I explained to the patient that as his condition progresses it could cause continued and progressive sx as well as pain with severe natural progress and deterioration of neurological status . At this time, based on the patients imaging and physical exam, I recommend surgery in the form or a: L4-S1 Laminoforaminotomy . I discussed the risk and benefits of this procedure at length with Mr. Herrera. The patient agreed to consider pursuing the procedure mentioned above. Plan: 1. L4-S1 LEFT LAMINOFORAMINOTOMY 2. Follow up with PCP for surgical clearance 3. Review of surgical risks and benefits as well as an educational packet on the proposed surgical procedure. Risks: All surgical procedures come with inherent risks, including those related to positioning, anesthesia, intraoperative findings, and postoperative complications. It is important to understand that surgery does not come with any guarantee of a successful outcome as complications and adverse events are always possible. The patient was given a handout in office today discussing the surgical procedure and risks associated with the intervention, both of which were discussed with the patient. These risks include but are not limited to the following: ? Experiencing same, different or even worse symptoms in back, neck, arms, or legs compared to before surgery. ? Requiring further surgery or other forms of treatment presently or at some time in the future at same or other levels of the intended spine surgery. ? On an extreme but fortunately relatively rare basis severe complication such as blindness, stroke, heart attack, temporary and/or permanent nerve injury, paralysis, coma, or may occur, sometimes without known explanation. ? Surgical complications may include but are not limited to risk of infection, fluid accumulation in the surgical dissection site, including a seroma or hematoma, that requires additional surgery, wound drainage, bleeding, new numbness or weakness, vision changes/loss, spinal fluid leakage, non-healing and/or infected incision, headaches, difficulty or inability to swallow, hoarseness, hemopneumothorax, pneumothorax, impotence, retrograde ejaculation, vaginal dryness; injury to nerves, spinal cord, blood vessels, lymphatics or other vital organs (i.e., bowel injury, injury to the great vessels); heterotopic bone formation; complications related to the hardware such as screws, rods, cages including misplaced hardware, device failure, instrumentation at the wrong spine level, hardware fracture/breakage, or hardware loosening; vertebral failure of the spinal column above or below the newly placed hardware; retained surgical instrumentations or devices and the need for further surgery. ? Medical risks of the planned spine surgery include but are not limited to generalized Infections to the whole body or local areas outside of the surgical site (sepsis), heart attack, bleeding, anaphylaxis, meningitis, seizure, epilepsy, hearing loss, burn de la cruz, laceration of the head or other areas of the body, bruising, hypersensitivity of the skin, bladder over distension; allergic reaction; shoulder injury related to positioning; fat, blood and air clots to other areas of the body like heart, lungs, brain; failure of internal organs such as lungs, kidneys, liver and excessive bleeding. If blood transfusions are necessary, note that transfusions may cause intolerance reactions such as anaphylaxis or other complex reactions. Despite best efforts, the results of spine surgery might not heal in terms of bone, soft tissues such as skin, fascia, ligaments, and joints. Additionally, in order to achieve best possible results, spine surgery may be carried out beyond the initially planned levels and involve decompression, fusion including insertion of hardware at levels other than the original intended area of surgical interest change some portions of the procedure in order to ensure the best possible outcomes. With spine surgery and spinal fusion, there are different off label uses of instrumentation (devices, implants and hardware) as well as biological substances (bone morphogenic proteins, demineralized bone matrix) as well as using extra bone from allograft sources (i.e. cadaver bone) or autograft (iliac crest bone, ribs, or the spine itself). The patient has been given information about these practices and their inherent risks and benefits. [facility] Culp Physician Assistants are medically trained surgical providers who function in the outpatient, inpatient, and operating room setting under the direct supervision of the attending surgeon.They assist in the operating room with direct supervision of the attending surgeons. The patient has had a chance to review all the listed information, has been given print outs detailing this information, and has had all his/her questions answered to their satisfaction. It was my pleasure to have seen and examined Mr. Herrera. In our visit today we have had a chance to go over my understanding of our patient's current condition, the natural course history without intervention and various interventional options. Questions were invited and answered, and the patient wishes to proceed as outlined above. I have seen and examined the patient for 25 minutes and we have spent more than 50% of the time in repeat and detailed coun seling about the patient's condition, its natural course history with out and as much as can be predicted with surgery and re-review of various surgical treatment options. In conclusion,Mr. Herrera and his spouse/partner requested we proceed with the above suggested surgery and are willing to accept risks and limitations of the suggested surgery as nature of the disease process and our best attempts at treatment for the condition. Surgical Procedure Codes: Primary Procedure: * 92145 - Laminotomy (hemilaminectomy), with decompression of nerve root(s), including partial facetectomy, foraminotomy and/or excision of herniated intervertebral disc, unilateral; 1 interspace, lumbar (L4-L5) Add-on Code: * 12595 - Laminotomy, each additional interspace, lumbar (List separately in addition to code for primary procedure) (L5-S1) Medical Necessity Documentation Support: 1. Progressive Neurological Symptoms: * Bilateral lower extremity weakness (4/5 strength documented) Right-sided muscle atrophy Positive straight leg raise test Decreased Achilles reflexes (1+ bilaterally) L4-S1 dermatomal deficits 2. Functional Decline: * Requires wheelchair for longer distances Walker dependent for short distances Unable to perform toe/heel walking Cannot squat and rise independently VAS pain score: 10/10 3. Failed Conservative Treatment: * Physical therapy without improvement Home exercise program with minimal benefit Activity modification Multiple medications (Flexeril, Robaxin) Prior injections without benefit 4. Imaging Correlation: * MRI demonstrates L4-S1 stenosis Severe foraminal stenosis L>R Lateral recess stenosis L3-S1 spondylosis L2-L3 autofusion Risk Factors/Comorbidities: * Age: 63 years BMI: 29.84 Multiple medications On Eliquis (will require perioperative management) Coding Compliance Notes: * Office Visit Documentation: Clear documentation of time spent 50% counseling documented All elements of high-level MDM present Comprehensive exam documented Surgical Planning: Specific levels documented Laterality specified (left) Failed conservative care documented Risks/benefits discussed Progressive symptoms documented Medical Necessity: Progressive neurological deficits Functional decline Failed conservative measures Correlating imaging findings Impact on ADLs documented Modifiers to Consider: LT (left side) No co-surgeon 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 documented Additional Documentation Requirements for Surgery: * Pre-operative clearance needed Detailed consent discussion documented Educational materials provided Patient agreement documented Pre-operative labs and testing ordered Quality Measures Met: * Pain assessment documented Functional assessment completed Shared decision making documented Conservative treatment attempted Treatment options discussed MEDICAL NECESSITY: Surgical intervention with L4-S1 left laminoforaminotomy is medically necessary due to documented progressive neurological decline, evidenced by bilateral lower extremity weakness (4/5), right lower extremity muscle atrophy, and L4-S1 dermatomal deficits. The patient has experienced significant functional d eterioration, requiring wheelchair use for distances and walker for short ambulation, despite comprehensive conservative management including PT, medications, and prior injections. Imaging demonstrates severe right and [id number]-ji-honxyr left foraminal stenosis at L5-S1 and moderate right foraminal narrowing at L4-5, correlating with clinical findings. Without surgical intervention, the patient is at risk for continued neurological decline and permanent disability given the progressive nature of symptoms and documented structural pathology. The proposed procedure is appropriate to address the stenosis, prevent further neurological deterioration, and potentially improve functional status. FOLLOW UP: Post-op PLAN AT NEXT VISIT: RECHECK PATIENT EDUCATION: Medications Reviewed: YES In our visit today Mr. Herrera and I have had a chance to go over my understanding of the patient's current condition, the natural course history without intervention and various interventional options. Questions were invited and answered, and the patient wishes to proceed as outlined above. I will be sure to keep you updated after Mr. Herrera returns here for further f ollow-up. Thank you again for your referral. Please do not hesitate to contact me if you have any further questions. Signed and authenticated by: Gabriel Abrams [facility] [address] [place] [phone] . This message is confidential, intended only for the named recipient(s) and may contain information that is privileged or exempt from disclosure under applicable law. If you are not the intended recipient(s), you are notified that the dissemination, distribution or copying of this information is prohibited. If you received this message in error, please notify the sender then delete this message. # SIGNED BY Gabriel Yu (GOO)06/23/2024 09:06AM Past Medical History Past Medical History: Atrial Fibrillation, Coronary Artery Disease (CAD), COPD, Diabetes Mellitus, Eye Disorder, Fibromyalgia, GERD/Reflux, Hyperlipidemia, Hypertension, Myocardial Infarction ([place]), Musculoskeletal Disorder, Osteoarthritis (OA), Prostate Disorder, Vascular Disorder Additional Past Medical History / Comment(s): Chronic cough, hx pancreatitis, bilateral glaucoma, neuropathy bilateral feet, poor circulation to legs, va ricose veins, RLS, hx BPH, colitis, gastritis, Alvarenga's esophagus, hx Shingles in 2013 with joint pain since, chronic low back, bilateral buttock and leg pain, DDD. Last Myocardial Infarction Date:: 09/02/16 History of Any Multi-Drug Resistant Organisms: None Reported Past Surgical History: Appendectomy, Cardiac Ablation, Heart Catheterization, Joint Replacement, Orthopedic Surgery, Prostate Surgery Additional Past Surgical History / Comment(s): Right knee arthroscopy, right knee replacement, EGD, colonoscopy, TURP, cardioversion. Past Anesthesia/Blood Transfusion Reactions: No Reported Reaction Additional Past Anesthesia/Blood Transfusion Reaction / Comment(s): No hx blood transfusion. Smoking Status: Former smoker - Past Family History Father Family Medical History: CVA/TIA, Hypertension Additional Family Medical History / Comment(s): Father at the age of 38yrs from HTN/CVA. He was an alcoholic. Mother Family Medical History: COPD, Diabetes Mellitus Additional Family Medical History / Comment(s): Mother of emphysema at the age of 74 yrs (2003), mom had hx of drinking and smoking. Medications and Allergies Home Medications Medication Instructions Recorded Confirmed Type Montelukast [Singulair] 10 mg PO DAILY@1200 01/12/18 06/19/24 History Tamsulosin [Flomax] 0.4 mg PO DAILY@1200 11/08/21 06/19/24 History rOPINIRole HCL [Requip] 4 mg PO HS 11/08/21 06/19/24 History Cyclobenzaprine [Flexeril] 10 mg PO TID@0600,1200,1800 11/24/21 06/19/24 History Empagliflozin [Jardiance] 10 mg PO DAILY@1200 04/11/22 06/19/24 History Apixaban [Eliquis] 5 mg PO BID@0600,1800 05/13/22 06/19/24 History Omeprazole [PriLOSEC] 20 mg PO BID@0600,1800 06/27/23 06/19/24 History ARIPiprazole [Abilify] 5 mg PO DAILY@0600 07/27/23 06/19/24 History Latanoprost [Latanoprost 0.005%] 1 drop BOTH EYES HS 07/27/23 06/19/24 History Folic Acid 1 mg PO DAILY@1200 11/23/23 06/19/24 History Loratadine [Claritin] 5 mg PO BID@0600,1800 11/23/23 06/19/24 History Metoprolol Tartrate [Lopressor] 50 mg PO BID@0600,1800 11/23/23 06/19/24 History allopurinoL [Zyloprim] 300 mg PO DAILY@0600 11/23/23 06/19/24 History Atorvastatin [Lipitor] 40 mg PO HS@1800 01/20/24 06/19/24 History Spironolactone [Aldactone] 25 mg PO DAILY #30 tab 01/26/24 06/19/24 Rx Fluticasone/Umeclidin/Vilanter 1 inhalation INHALATION QAM 06/19/24 06/19/24 History [Trelegy Ellipta 100-62.5-25] Allergies Allergy/AdvReac Type Severity Reaction Status Date / Time amoxicillin trihydrate AdvReac Rapid Verified 06/23/24 16:09 [From Augmentin] Heart Rate potassium clavulanate AdvReac FELT LIKE Verified 06/23/24 16:09 [From Augmentin] HE WAS GOING TO PASS OUT FAST HEARTBEAT" pregabalin [From Lyrica] AdvReac Leg Verified 06/23/24 16:09 swelling venlafaxine [From Effexor] AdvReac Confusion Verified 06/23/24 16:09 Physical Examination Osteopathic Statement: *. No significant issues noted on an osteopathic structural exam other than those noted in the History and Physical/Consult.
[~2024-06-25 05:32] MED LIST changes: -ALBUTEROL NEBULIZED 2.5 MG/3 ML INHALATION ONE; -IPRATROPIUM 0.5 MG/2.5 ML NEBU INHALATION ONE; -LACTATED RINGERS 1,000 ML IV SCH; -LIDOCAINE 2% (PF) 20 MG/ML 5 ML VIAL ONE; -PROPOFOL 10 MG/ML 20 ML VIAL IV ONE; +TRANEXAMIC 1,000 MG/100ML-NACL 1,000 MG in SALINE 1 100ML.BAG IVPB PRN
[2024-06-25] MEDS: IV FLUID CONTINUATION 1,000 ML IV ONE ×2 (06:45→07:00)
[2024-06-25] MEDS: LACTATED RINGERS 1,000 ML IV SCH (06:45)
[2024-06-25] MEDS: ACETAMINOPHEN TAB 500 MG TAB PO PRN (06:58)
[2024-06-25] MEDS: ONDANSETRON 4 MG/2 ML VIAL IVP PRN (06:58)
[2024-06-25] MEDS ORDERED: MIDAZOLAM 2 MG/2 ML VIAL IV PRN (07:00)
[2024-06-25] MEDS: VANCOMYCIN 1,500 MG in SODIUM CHLORIDE 0.9% 500 ML 500 ML IVPB PRN (07:01)
[2024-06-25 07:06] LABS: Glucose,Whole Blood 104 mg/dL (70-110)
[2024-06-25] MEDS ORDERED: SUGAMMADEX SODIUM 200 MG/2 ML SDV IV ONE (07:25)
[2024-06-25] MEDS ORDERED: MIDAZOLAM 2 MG/2 ML VIAL ONE (07:25)
[2024-06-25] MEDS ORDERED: PROPOFOL 10 MG/ML 20 ML VIAL IV ONE (07:25)
[2024-06-25] MEDS ORDERED: fentaNYL (PF) 50 MCG/ML 2 ML AMP ONE (07:25)
[2024-06-25] MEDS ORDERED: HYDROmorphone (PF) 1 MG/ML ONE (07:25)
[2024-06-25] MEDS ORDERED: PHENYLEPHRINE 10 MG/ML VIAL ONE (07:25)
[2024-06-25] MEDS ORDERED: LIDOCAINE 1% INJ 10MG/ML (20 ML MDV) ONE (07:25)
[2024-06-25] MEDS ORDERED: ROCURONIUM 10 MG/ML (5 ML VIAL) IV ONE (07:25)
[2024-06-25] MEDS ORDERED: LABETALOL 5 MG/ML VIAL MDV ONE (07:25)
[2024-06-25] MEDS ORDERED: TRANEXAMIC 1,000 MG/100ML-NACL PREMIX BAG ONE (07:25)
--- NOTE | 2024-06-25 07:28 | P.ANPRN ---
Procedure Note - Anesthesia - Invasive Line Left Arterial Line Time Out Performed: Yes Date of Procedure: 06/25/24 Time of Procedure: 07:25 Location of Patient: PreOp Preparation: Sterile Prep Arterial Line Location: Radial Ultrasound Used: Yes Purpose - Visualization and Identification of Vasculature: Yes Image Stored and Saved: Yes Narrative: Invasive line placement per sterile protocol utilized.By SCRNA. AttemptX1.
[2024-06-25] MEDS: THROMBIN (BOVINE) 5,000 UNIT VIAL TOPICAL ONE ×2 (07:50→08:17)
[2024-06-25] MEDS: BUPIVACAINE (PF) 0.5% 30 ML VIAL SQ ONE (08:17)
[2024-06-25] MEDS: LIDOCAINE 2%-EPI 1:100,000 20 ML VIAL SQ ONE (08:17)
--- NOTE | 2024-06-25 09:36 | P.OP ---
Date of Procedure: 06/25/24 Preoperative Diagnosis: 1. L4-S1 SPONDYLOSIS WITH STENOSIS AND RADICULOPATHY 2. NEUROGENIC CLAUDICATION 3. LOW BACK PAIN 4. LE WEAKNESS 5. COMPLEX MEDICAL PATIENT Postoperative Diagnosis: 1. L4-S1 SPONDYLOSIS WITH STENOSIS AND RADICULOPATHY 2. NEUROGENIC CLAUDICATION 3. LOW BACK PAIN 4. LE WEAKNESS 5. COMPLEX MEDICAL PATIENT Procedure(s) Performed: 1. L4-5 LAMINOFORAMINOTOMY FOR NEURAL DECOMPRESSION 2. L5-S1 LAMINOFORAMINOTOMY FOR NEURAL DECOMPRESSION Implants: NONE Anesthesia: GETA Surgeon: Gabriel Yu Machine Maintenance #1: Gus Alexander (WAS PRESENT AND ASSISTED WITH ALL ASPECTS OF THE CASE FROM POSITION TO DRESSING PLACEMENT) Estimated Blood Loss (ml): 25 IV fluids (ml): 1,100 Urine output (ml): 350 Pathology: none sent Condition: stable Disposition: PACU Indications for Procedure: CLINICAL SUMMARY: Mr. Herrera is a 64-year-old male presenting for pre-operative evaluation for scheduled L4-S1 left laminoforaminotomy. He reports progressive severe lumbar pain (VAS 8/10) over the past 5 months with bilateral lower extremity radiation, right side worse than left. His condition has significantly deteriorated, requiring wheelchair use for longer distances and walker for short distances, with noted right lower extremity muscle atrophy. Physical examination reveals bilateral lower extremity weakness (4/5 throughout), positive straight leg raise, decreased Achilles reflexes (1+ bilaterally), and L4-S1 dermatomal deficits. Imaging demonstrates severe right and [id number] left foraminal stenosis at L5-S1, moderate right foraminal narrowing at L4-5, and evidence of L2-3 autofusion with complete disc height loss. Conservative measures including PT, medications (Flexeril, Robaxin), and prior injections have failed to provide relief. The patient is on Eliquis, which will require perioperative management. Description of Procedure: L4-S1 LEFT MINIMALLY INVASIVE LAMINOFORAMINOTOMY The patient was seen and examined in the preoperative area. All preoperative protocols were followed. Informed consent was obtained, risks and benefits of the procedure were discussed at length. Risks including bleeding, infection, damage to the surrounding tissue, and risk of reoperation were discussed with the patient. Risk of anesthesia up to and including was discussed with the patient. These are outlined in the risk review. They were willing to accept these risks and all the risks of surgery. The patient was given a weight-based dose of antibiotics in the form of 2 g Ancef. The patient was seen and evaluated by the anesthesia team who deemed them fit for surgery. The site was marked, the patient was willing to proceed with the procedure. The patient was transferred to the operative suite by the Department of anesthesia. They were then drifted off to sleep by the department anesthesia and GETA was performed. The patient tolerated this well. Once confirmation of lines and ventilation the patient was transferred to a prone Michael table very carefully. All bony prominences including wrists, elbows, axilla, chest, hips, and thighs, and feet were padded very well. Special attention was paid to the genitalia, and these were padded accordingly. SCDs were placed on bilateral lower extremities and were connected. Arms were well padded and placed on arm boards up and out in the 90/90 position. Once in position, again we confirmed good ventilation capabilities and that lines were running appropriately. The patient's Lumbar spine was then exposed. 1010s were placed outlining the incision site. Standard alcohol was used to clean the incision site and allowed to dry. C-arm was used to needle localize the pedicles at L4-S1 and bio-gualberto the patient and confirm level for incision which was marked with a skin marker. Operative briefing was performed with all teams and everyone in agreement to proceed. The patient was then prepped and draped in a normal sterile fashion. Timeout was then performed, and all parties agreed with the procedure to be performed. Biplanar fluoroscopy was used to localize the L4-S1 levels and a left paramedian skin incision was made over this area. Initial dilator was sent down and fluoroscopy confirmed levels in AP and lateral views. I then sequentially dilated up to 26 mm and placed a 60 mm x 26 mm retractor tube which was secured to the table with a table arm. Microscope was then brought in for visualization. Limited myomectomy was performed over the facet joints, pars, and lamina of L4, L5, and S1. Gaetano-laminotomy, partial medial facetectomy, and foraminotomy were performed at L4-5 and L5-S1 using high-speed jing and Kerrison rongeur. The ligamentum flavum was removed with Kerrison and curette. Dura and roots were protected throughout the procedure. The neural foramina were carefully decompressed to ensure adequate space for the exiting nerve roots. Meticulous hemostasis was achieved using bipolar cautery. The area was irrigated thoroughly. The tubular retractor was then removed under direct visualization. The surgical bed was inspected, and all roots were found to have ample room and were adequately decompressed along with the dura. There were no apparent injuries. Retractors were then removed. The wound was copiously irrigated with normal saline solution. The deep fascia was closed with 0 Vicryl. Deep subcutaneous tissue was closed with 0 Vicryl and superficial with 2-0 Vicryl. Subcuticular closure was performed with 4-0 Monocryl. The wound edges approximated well. The wound was then cleaned and covered with a sterile dressing. The patient was then transferred off the table back to their hospital bed atraumatically. They were extubated by the department of anesthesia. They were then transferred to PACU in stable condition having tolerated the procedure with no complications.
[2024-06-25] MEDS: HYDROmorphone 0.5 MG/0.5 ML SYRINGE IVP PRN ×2 (10:07→13:38)
[2024-06-25] MEDS: LACTATED RINGERS 1,000 ML IV ONE (11:03)
--- NOTE | 2024-06-25 11:56 | XR ---
Fluoroscopy INDICATION: Pain FINDINGS: Fluoroscopy time: 9.6 seconds. Total dose area product (DAP) in uGy*m?, mGy*cm? (or similar): 2.4087 Images obtained: 7. IMPRESSION: 1. Documentation of fluoroscopy. [facility], , 06/25/2024 11:53 AM
--- NOTE | 2024-06-25 12:01 | FL ---
Fluoroscopy INDICATION: Pain FINDINGS: Fluoroscopy time: 9 seconds. Total dose area product (DAP) in uGy*m?, mGy*cm? (or similar): 2.4067 Images obtained: 0. IMPRESSION: 1. Documentation of fluoroscopy. [facility], , 06/25/2024 11:59 AM
[2024-06-25] MEDS ORDERED: MAGNESIUM HYDROXIDE 2,400 MG/30 ML CUP PO PRN (12:11)
[2024-06-25] MEDS ORDERED: HYDROcodone/APAP 5-325MG 1 EACH TAB PO PRN (12:11)
[2024-06-25] MEDS ORDERED: bisacodyL 10 MG SUPP RECTAL PRN (12:11)
[2024-06-25] MEDS ORDERED: NA PHOS,M-B/NA PHOS,DI-BA 133 ML ENEMA RECTAL PRN (12:11)
[2024-06-25] MEDS: HYDROcodone/APAP 7.5-325MG 1 EACH TAB PO PRN (14:34)
[2024-06-25] MEDS: [UNRECOGNIZED DRUG - REMARK] MISCELLANE ONE (16:06)
[2024-06-25] MEDS: KETOROLAC 15 MG/ML 1 ML VIAL IVP SCH (16:06)
[2024-06-25 16:21] LABS: Glucose,Whole Blood 199 mg/dL (70-110)
[2024-06-25] MEDS ORDERED: DEXTROSE 50% SYRINGE 50 ML IVP PRN ×2 (16:52)
[2024-06-25] MEDS: ACETAMINOPHEN TAB 325 MG TAB PO SCH (17:02)
--- NOTE | 2024-06-25 17:06 | P.CONS ---
History of Present Illness - Reason for Consult Consult date: 06/25/24 Medical management Requesting physician: Gabriel Yu - Chief Complaint Lumbar surgery - History of Present Illness [address] Chavez. Chronic stable medical conditions include COPD, fibromyalgia, hypertension, osteoarthritis, chronic pancreatitis from alcoholism, peripheral neuropathy varicose veins, restless leg syndrome, BPH surgery, Alvarenga's esophagus and chronic low back pain from osteoarthritis. Alcohol cirrhosis. . cardioversion done for atrial fibrillation in March 2022. Chronic multiple wounds on the upper and lower extremity from scratching. Patient's had chronic low back pain. Has been worsening. Did radiate down both the legs. Marcie. Able to walk about 20 feet. Baseline urine and bowels are working fine. Today underwent lumbar surgery. Postprocedure having pain at the operative site. No nausea vomiting. Up in the bed. Review of systems: GEN.: Tired, EYES: None HEENT: None NECK: None RESPIRATORY: Baseline some cough some wheezing CARDIOVASCULAR: As above GASTROINTESTINAL: None GENITOURINARY: None MUSCULOSKELETAL: As above LYMPHATICS: None HEMATOLOGICAL: None PSYCHIATRY: None NEUROLOGICAL: Does use a walker Past medical history to include: COPD, fibromyalgia, hypertension, osteoarthritis, chronic pancreatitis from alcoholism, peripheral neuropathy, varicose pains, restless leg syndrome, BPH with surgery, Alvarenga's esophagus, chronic low back pain from osteoarthritis, alcohol use disorder with cirrhosis, atrial fibrillation with ablation-went back into atrial fibrillation Social history: lives with his sister Ewelina. Smoked for close to 42 years. Talked 1 month ago.. Drinking alcohol for years. Stopped February 2022 Physical examination: VITAL SIGNS: 97.5, 93, 24, 149/87, 96% room air GENERAL: A bit anxious scattered scratch de la cruz. With superficial bleeding at places. EYES: Pupils equal. Conjunctiva normal. HEENT: External appearance of nose and ears normal, oral cavity grossly normal. NECK: JVD raised; masses not palpable. HEART: Heart sounds irregular; edema. LUNGS: Respiratory rate increased l; decreased breath sounds ABDOMEN: Soft, , nontender, liver spleen not palpable, no masses palpable. divarification of recti . PSYCH: Alert and oriented x3; mood and affect anxiousl. MUSCULOSKELETAL:No Clubbing/cyanosis;muscles-grossly intact. evidence of OA DERMATOLOGICAL: Several scattered areas of scratch de la cruz. INVESTIGATIONS, reviewed in the clinical context: June 23, 2024: White count 8.9 hemoglobin 11.8 platelets 254 potassium 3.3 creatinine 1.04 albumin 3 Assessment and plan: -L4 S1 spondylosis with stenosis radiculopathy, neurogenic claudication lower extremity weakness. Patient is undergone L4-L5 laminal foraminotomy for neural decompression Dr. Gabriel Yu on June 25 -COPD in a previous smoker r Trelegy, -Paroxysmal atrial flutter fibrillation a prior history of ablation cardioversion after that.: Telemetry Eliquis, resumed by surgery-. Lopressor 50 p.o. twice daily -chronic congestive heart failure that from systolic and diastolic dysfunction EF 40 % Aldactone fluid restriction - chronic pancreatitis from alcoholism: -Alcohol-induced cirrhosis: Aldactone. -Chronic fibromyalgia Flexeril 10 mg 3 times a day -Diabetes mellitus type 2 on oral hypoglycemic Jardiance Follow Accu-Cheks with sliding scale -Essential hypertension, Lopressor 50 mg twice daily -Primary osteoarthritis, multiple joints bilaterally Pain medications as needed -Alcoholic peripheral neuropathy -restless leg syndrome Requip 4 mg daily at bedtime -Alvarenga's esophagus Protonix 40 mg a day -Full code. Care was discussed with the patient. Questions answered. Thank you Dr. Yu Past Medical History Past Medical History: Atrial Fibrillation, Coronary Artery Disease (CAD), COPD, Diabetes Mellitus, Eye Disorder, Fibromyalgia, GERD/Reflux, Hyperlipidemia, Hypertension, Myocardial Infarction (OR), Musculoskeletal Disorder, Osteoarthritis (OA), Prostate Disorder, Vascular Disorder Additional Past Medical History / Comment(s): Chronic cough, hx pancreatitis, bilateral glaucoma, neuropathy bilateral feet, poor circulation to legs, varicose veins, RLS, hx BPH, colitis, gastritis, Alvarenga's esophagus, hx Shingles in 2012 with joint pain since, chronic low back, bilateral buttock and leg pain, DDD. Last Myocardial Infarction Date:: 09/02/16 History of Any Multi-Drug Resistant Organisms: None Reported Past Surgical History: Appendectomy, Cardiac Ablation, Heart Catheterization, Joint Replacement, Orthopedic Surgery, Prostate Surgery Additional Past Surgical History / Comment(s): Right knee arthroscopy, right knee replacement, EGD, colonoscopy, TURP, cardioversion. Past Anesthesia/Blood Transfusion Reactions: No Reported Reaction Additional Past Anesthesia/Blood Transfusion Reaction / Comm: No hx blood transfusion. Smoking Status: Former smoker - Past Family History Father Family Medical History: CVA/TIA, Hypertension Additional Family Medical History / Comment(s): Father at the age of 38yrs from HTN/CVA. He was an alcoholic. Mother Family Medical History: COPD, Diabetes Mellitus Additional Family Medical History / Comment(s): Mother of emphysema at the age of 74 yrs (2003), mom had hx of drinking and smoking. Medications and Allergies Home Medications Medication Instructions Recorded Confirmed Type Montelukast [Singulair] 10 mg PO DAILY@1200 01/12/18 06/19/24 History Tamsulosin [Flomax] 0.4 mg PO DAILY@1200 11/08/21 06/19/24 History rOPINIRole HCL [Requip] 4 mg PO HS 11/08/21 06/19/24 History Cyclobenzaprine [Flexeril] 10 mg PO TID@0600,1200,1800 11/24/21 06/19/24 History Empagliflozin [Jardiance] 10 mg PO DAILY@1200 04/11/22 06/19/24 History Apixaban [Eliquis] 5 mg PO BID@0600,1800 05/13/22 06/19/24 History Omeprazole [PriLOSEC] 20 mg PO BID@0600,1800 06/27/23 06/19/24 History ARIPiprazole [Abilify] 5 mg PO DAILY@0600 07/27/23 06/19/24 History Latanoprost [Latanoprost 0.005%] 1 drop BOTH EYES HS 07/27/23 06/19/24 History Folic Acid 1 mg PO DAILY@1200 11/23/23 06/19/24 History Loratadine [Claritin] 5 mg PO BID@0600,1800 11/23/23 06/19/24 History Metoprolol Tartrate [Lopressor] 50 mg PO BID@0600,1800 11/23/23 06/19/24 History allopurinoL [Zyloprim] 300 mg PO DAILY@0600 11/23/23 06/19/24 History Atorvastatin [Lipitor] 40 mg PO HS@1800 01/20/24 06/19/24 History Spironolactone [Aldactone] 25 mg PO DAILY #30 tab 01/26/24 06/19/24 Rx Fluticasone/Umeclidin/Vilanter 1 inhalation INHALATION QAM 06/19/24 06/19/24 History [Trelegy Ellipta 100-62.5-25] Allergies Allergy/AdvReac Type Severity Reaction Status Date / Time amoxicillin trihydrate AdvReac Rapid Verified 06/25/24 06:22 [From Augmentin] Heart Rate potassium clavulanate AdvReac FELT LIKE Verified 06/25/24 06:22 [From Augmentin] HE WAS GOING TO PASS OUT FAST HEARTBEAT" pregabalin [From Lyrica] AdvReac Leg Verified 06/25/24 06:22 swelling venlafaxine [From Effexor] AdvReac Confusion Verified 06/25/24 06:22 Physical Exam Vitals: Vital Signs Temp Pulse Pulse Resp BP BP Pulse Ox 06/25/24 15:27 97.5 F L 104 H 17 123/60 95 06/25/24 15:01 93 16 121/63 96 06/25/24 14:30 92 16 128/70 96 06/25/24 14:00 86 16 143/77 96 06/25/24 13:30 96 16 123/67 96 06/25/24 13:00 90 16 122/64 96 06/25/24 12:30 82 16 137/72 96 06/25/24 12:00 82 16 136/72 96 06/25/24 11:30 83 16 136/67 96 06/25/24 11:15 88 16 138/65 96 06/25/24 11:01 81 16 136/60 96 06/25/24 10:30 80 16 141/56 131/62 100 06/25/24 10:15 78 16 138/54 131/67 100 06/25/24 10:00 82 16 158/71 131/71 100 06/25/24 09:47 97.2 F L 84 12 138/57 100 06/25/24 06:35 96.8 F L 92 16 156/91 98 Intake and Output 06/25/24 06/25/24 06/25/24 06:59 14:59 22:59 Intake Total 100 1500 Output Total 525 Balance 100 975 Intake: IV 100 1500 Output: Urine 500 Estimated Blood Loss 25 Other: Weight 91.7 kg 91.7 kg Results Labs: Abnormal Lab Results - Last 24 Hours (Table) 06/25/24 Range/Units 16:19 POC Glucose (mg/dL) 199 H (70-110) mg/dL
[2024-06-25] MEDS: INSULIN ASPART (NovoLOG) 100 UNIT/ML VIAL SQ SCH (17:17)
[2024-06-25] MEDS: PANTOPRAZOLE 40 MG TABLET PO SCH (17:17)
[2024-06-25] MEDS: METOPROLOL TARTRATE 50 MG TAB PO SCH (17:17)
[2024-06-25] MEDS: ATORVASTATIN 40 MG TAB PO SCH (17:17)
[2024-06-25] MEDS: LORATADINE 10 MG TAB PO SCH (17:17)
[2024-06-25 19:55] LABS: Glucose,Whole Blood 137 mg/dL (70-110)
[2024-06-25] MEDS: SYMBICORT 160-4.5 MCG INHALER INHALATION SCH (20:51)
[2024-06-25] MEDS: LATANOPROST 0.005% OPHTH DROPS 2.5 ML BTL BOTH EYES SCH (21:42)
[2024-06-25] MEDS: rOPINIRole HCL 4 MG TABLET PO SCH (21:42)
[2024-06-26] MEDS: CYCLOBENZAPRINE 10 MG TAB PO PRN (01:21)
[2024-06-26] MEDS: MAGNESIUM SULFATE-D5W PMX 1 GM in DEXTROSE/WATER 1 100ML.BAG IVPB SCH (04:37)
[2024-06-26] MEDS: ARIPiprazole 5 MG TAB PO SCH (06:20)
[2024-06-26] MEDS: allopurinoL 300 MG TAB PO SCH (06:20)
[2024-06-26 06:50] LABS: Glucose,Whole Blood 127 mg/dL (70-110)
[2024-06-26] MEDS: DEXAMETHASONE SOD PHOSPHATE 10 MG/ML 1 ML VIAL IV STA (07:56)
--- NOTE | 2024-06-26 08:35 | P.PN ---
Subjective Progress Note Date: 06/26/24 Principal diagnosis: 1. L4-S1 spondylosis with stenosis and radiculopathy 2. Neurogenic claudication 3. Low back pain 4. Bilateral lower extremity weakness 5. Complex medical patient Patient seen and examined this morning. Patient is resting comfortable in bed. Overall patient states that he has noticed improvement in his low back pain, although he has increased radiculopathy with numbness and tingling into the left lower extremity. This was present prior to procedure. Patient states he has not been up since procedure. He is looking forward to working with physical therapy. He states he normally utilizes a walker for ambulation. Surgical incision to the lumbar spine, dressing is clean dry and intact. Continue to encourage patient to increase his activity and use the incentive spirometer 10 times per hour while awake. Discussed with patient that subacute rehab may benefit him at discharge, patient verbalizes understanding. Objective - Vital Signs Vital signs: Vital Signs Temp 98.3 F 06/26/24 01:18 Pulse 86 06/26/24 02:44 Resp 17 06/26/24 02:44 BP 132/68 06/26/24 02:44 Pulse Ox 98 06/26/24 02:44 FiO2 Intake & Output 06/25/24 06/26/24 06/26/24 18:59 06:59 18:59 Intake Total 1500 Output Total 525 225 Balance 975 -225 Weight 91.7 kg Intake: IV 1500 Output: Urine 500 225 Estimated Blood Loss 25 Other: Voiding Method Indwelling Catheter # Voids 0 # Bowel Movements 0 - Exam Physical Examination General: The patient is awake and alert, in no acute distress Skin: Skin is warm and dry with no obvious rashes or lesions. Surgical incision to the lumbar spine, dressing is clean dry and intact. Neck: The neck is supple, there is no tenderness and ROM intact. Cardiovascular: There is a regular rate and rhythm. Respiratory: Respirations are non-labored.. Gastrointestinal: Soft, non-distended, non-tender abdomen. Back: There is no tenderness to palpation in the midline, paralumbar, parathoracic or buttocks region. There is no obvious deformity. Musculoskeletal: ROM limited secondary to pain and stiffness from surgical procedure. Right: shoulder abduction 5/5, elbow flexors 5/5, wrist dorsiflexors 5/5. finger abductor 5/5, insurance agency owner 5/5, hip flexor 4/5, knee flexor 4/5, ankle dorsiflexor 4/5, ankle plantarflexion 4/5 and extensor hallucis 5/5. Left: shoulder abduction 5/5, elbow flexors 5/5, wrist dorsiflexors 5/5. finger abductor 5/5, insurance agency owner 5/5, hip flexor 4-/5, knee flexor 4/5, ankle dorsiflexor 5/5, ankle plantarflexion 4/5 and extensor hallucis 5/5. Neurological: CN 2-12 intact. There are no obvious motor or sensory deficits. Movement and coordination equal and intact. Sensory exam to light touch intact C5-T1 and intact from L2-S1. Reflexes 2/4 in bilateral upper and lower extremi ties. Negative Hoffmans, babinski, and clonus signs. Psychiatric: Cooperative, appropriate mood & affect, normal judgment. - Labs Labs: Abnormal Lab Results - Last 24 Hours (Table) 06/25/24 06/25/24 06/26/24 Range/Units 16:19 19:53 03:11 POC Glucose (mg/dL) 199 H 137 H (70-110) mg/dL Magnesium 1.3 L (1.6-2.3) mg/dL 06/26/24 Range/Units 06:46 POC Glucose (mg/dL) 127 H (70-110) mg/dL Magnesium (1.6-2.3) mg/dL Assessment and Plan Assessment: Postoperative day 1: L4-L5, L5-S1 laminoforaminotomy and neural decompression Plan: -Appreciate it infrastructure consultant and team management. -Activity: Ambulate QID, OOB all meals, up and about, limit lifting bending twisting to less than 5 lbs. Use walker or cane if needed for stability. -Daily PT/OT, increase ambulation strength and balance. -Brace when up and about, not needed in bed or chair -Pain control: Adequate at this time -Meds: reviewed -GI ppx: senna, Miralax -DC tanner when up and about, bedside commode if needed -DVT PPX: Eliquis may resume 48hrs post-op -Hygiene: Maintain incision clean and dry. May change dressing as needed, please document in notes if performed. Meticulous cleaning after BMs away from the incision site -Encourage IS 10x/hr -Dispo: Anticipate discharge [facility] vs home with homecare within the next 24-48hrs. *I reviewed and discussed this case with my attending Dr. Yu, whom has reviewed this chart and films and is in agreement with assessment and plan of care as outlined above. I have personally seen and examined the patient, performed the documentation and the assessment and plan as written. Number of minutes spent on the visit: 20m.
[2024-06-26] MEDS: IPRATROPIUM 0.5 MG/2.5 ML NEBU INHALATION SCH (08:42)
[2024-06-26] MEDS: SYMBICORT 80-4.5 MCG INHALER INHALATION SCH (08:43)
[2024-06-26] MEDS: SENNOSIDES-DOCUSATE SODIUM 1 EACH TAB PO SCH (10:58)
[2024-06-26] MEDS: SPIRONOLACTONE 25 MG TAB PO SCH (10:58)
[2024-06-26] MEDS: CYCLOBENZAPRINE 10 MG TAB PO SCH (10:59)
[2024-06-26 11:27] LABS: Glucose,Whole Blood 271 mg/dL (70-110)
[2024-06-26] MEDS: TAMSULOSIN 0.4 MG CAP.ER.24H PO SCH (12:03)
[2024-06-26] MEDS: FOLIC ACID 1 MG TAB PO SCH (12:03)
[2024-06-26] MEDS: DAPAGLIFLOZIN PROPANEDIOL 5 MG TABLET PO SCH (12:04)
[2024-06-26] MEDS: MONTELUKAST 10 MG TAB PO SCH (12:04)
--- NOTE | 2024-06-26 14:14 | P.CRDCN ---
History of Present Illness Consult date: 06/26/24 Requesting physician: Jamal Tamayo Reason for Consult (text): V. tach run History of present illness: This is a 64-year-old male patient of Dr. Lissette Avila with past medical history of severe aortic regurgitation, diabetes mellitus type 2, chronic diastolic heart failure, paroxysmal atrial fibrillation on Eliquis, orthostatic hypotension. We have been asked to evaluate the patient for V. tach. Patient was last seen in the office on 06/05/2024 for preop cardiac evaluation and patient was cleared for surgery knowing that he had increased risk for perioperative cardiac events but no absolute contraindications. Patient is seen today on the [facility] floor. On the assistant at surgery of 06/26, patient had a run of 11 beats V. tach. Patient was sleeping at that time so thus asymptomatic. Patient was found to have a low magnesium level of 1.3 and underwent infusion of magnesium 3 g. Patient states he normally takes a magnesium supplement at home. Patient was brought into the hospital on 06/24 and underwent lumbar spine surgery. Blood pressure 127/69, heart rate 88, pulse ox 95% on room air. Laboratory studies: Magnesium initially 1.3 and repeat 2.3. Home cardiac medications: Eliquis 5 mg twice daily, Lipitor 40 mg at bedtime, Jardiance 10 mg at noon, Lopressor 50 mg twice daily, Aldactone 25 mg daily. Echocardiogram performed in the office on 07/26/2023 revealed EF 55%, moderate concentric left ventricular hypertrophy. Aortic valve is calcified with severe aortic regurgitation, moderate mitral regurgitation. Mitral valve is calcified. Moderate tricuspid regurgitation. PASP 45 mmHg. Review Of Systems: At the time of my exam: CONSTITUTIONAL: Denies fever or chills. HEENT: Denies blurred vision, vision changes, or eye pain. Denies hemoptysis CARDIOVASCULAR: Denies chest pain. Denies orthopnea. Denies PND. Denies palpitations RESPIRATORY: Denies shortness of breath. GASTROINTESTINAL: Denies abdominal pain. Denies nausea or vomiting. HEMATOLOGIC: Denies bleeding disorders. GENITOURINARY: Denies any blood in urine. SKIN: Denies puritis. Denies rash. Physical examination: Gen: This is a 64-year-old male in no acute distress VS: reviewed HEENT: Head is atraumatic, normocephalic. Pupils equal, round. Sclerae is anicteric. NECK: Supple. No JVD. LUNGS: Clear to auscultation. No wheezes or rhonchi. No intercostal retractions. HEART: Regular rate and rhythm. No murmur. ABDOMEN: Soft No tenderness. EXTREMITIES: No pedal edema. No calf tenderness. NEUROLOGICAL: Patient is awake, alert and oriented x3. Assessment: Nonsustained ventricular tachycardia Hypomagnesemia status post replacement Severe aortic regurgitation Diabetes mellitus type 2 Chronic diastolic heart failure Paroxysmal atrial fibrillation on Eliquis which has been resumed Orthostatic hypotension Plan: Continue patient's home cardiac medications Recheck electrolytes and magnesium in the morning Obtain 2-D echocardiogram and Doppler study to assess cardiac structure and function No medication changes made today. Plan to continue to monitor patient on telemetry. Further recommendations to follow based upon clinical course Thank you kindly for this consultation. Nurse practitioner note has been reviewed, I agree with documented findings and plan of care. Patient was seen and examined. Past Medical History Past Medical History: Atrial Fibrillation, Coronary Artery Disease (CAD), COPD, Diabetes Mellitus, Eye Disorder, Fibromyalgia, GERD/Reflux, Hyperlipidemia, Hypertension, Myocardial Infarction ([place]), Musculoskeletal Disorder, Osteoarthritis (OA), Prostate Disorder, Vascular Disorder Additional Past Medical History / Comment(s): Chronic cough, hx pancreatitis, bilateral glaucoma, neuropathy bilateral feet, poor circulation to legs, varicose veins, RLS, hx BPH, colitis, gastritis, Alvarenga's esophagus, hx Shingles in 2013 with joint pain since, chronic low back, bilateral buttock and leg pain, DDD. Last Myocardial Infarction Date:: 09/02/16 History of Any Multi-Drug Resistant Organisms: None Reported Past Surgical History: Appendectomy, Cardiac Ablation, Heart Catheterization, Joint Replacement, Orthopedic Surgery, Prostate Surgery Additional Past Surgical History / Comment(s): Right knee arthroscopy, right knee replacement, EGD, colonoscopy, TURP, cardioversion. Past Anesthesia/Blood Transfusion Reactions: No Reported Reaction Additional Past Anesthesia/Blood Transfusion Reaction / Comment(s): No hx blood transfusion. Smoking Status: Former smoker - Past Family History Father Family Medical History: CVA/TIA, Hypertension Additional Family Medical History / Comment(s): Father at the age of 38yrs from HTN/CVA. He was an alcoholic. Mother Family Medical History: COPD, Diabetes Mellitus Additional Family Medical History / Comment(s): Mother of emphysema at the age of 74 yrs (2003), mom had hx of drinking and smoking. Medications and Allergies Home Medications Medication Instructions Recorded Confirmed Type Montelukast [Singulair] 10 mg PO DAILY@1200 01/12/18 06/19/24 History Tamsulosin [Flomax] 0.4 mg PO DAILY@1200 11/08/21 06/19/24 History rOPINIRole HCL [Requip] 4 mg PO HS 11/08/21 06/19/24 History Cyclobenzaprine [Flexeril] 10 mg PO TID@0600,1200,1800 11/24/21 06/19/24 History Empagliflozin [Jardiance] 10 mg PO DAILY@1200 04/11/22 06/19/24 History Apixaban [Eliquis] 5 mg PO BID@0600,1800 05/13/22 06/19/24 History Omeprazole [PriLOSEC] 20 mg PO BID@0600,1800 06/27/23 06/19/24 History ARIPiprazole [Abilify] 5 mg PO DAILY@0600 07/27/23 06/19/24 History Latanoprost [Latanoprost 0.005%] 1 drop BOTH EYES HS 07/27/23 06/19/24 History Folic Acid 1 mg PO DAILY@1200 11/23/23 06/19/24 History Loratadine [Claritin] 5 mg PO BID@0600,1800 11/23/23 06/19/24 History Metoprolol Tartrate [Lopressor] 50 mg PO BID@0600,1800 11/23/23 06/19/24 History allopurinoL [Zyloprim] 300 mg PO DAILY@0600 11/23/23 06/19/24 History Atorvastatin [Lipitor] 40 mg PO HS@1800 01/20/24 06/19/24 History Spironolactone [Aldactone] 25 mg PO DAILY #30 tab 01/26/24 06/19/24 Rx Fluticasone/Umeclidin/Vilanter 1 inhalation INHALATION QAM 06/19/24 06/19/24 History [Jacqui Cisneros 100-62.5-25] Allergies Allergy/AdvReac Type Severity Reaction Status Date / Time amoxicillin trihydrate AdvReac Rapid Verified 06/25/24 06:22 [From Augmentin] Heart Rate potassium clavulanate AdvReac FELT LIKE Verified 06/25/24 06:22 [From Augmentin] HE WAS GOING TO PASS OUT FAST HEARTBEAT" pregabalin [From Lyrica] AdvReac Leg Verified 06/25/24 06:22 swelling venlafaxine [From Effexor] AdvReac Confusion Verified 06/25/24 06:22 Physical Exam Vitals: Vital Signs Temp Pulse Pulse Pulse Resp BP BP 06/26/24 08:53 80 06/26/24 08:43 78 06/26/24 08:00 97.9 F 88 16 127/69 06/26/24 02:44 86 17 06/26/24 01:18 98.3 F 82 17 121/72 06/25/24 19:33 98.2 F 97 17 120/63 06/25/24 15:27 97.5 F L 104 H 17 123/60 06/25/24 15:01 93 16 06/25/24 14:30 92 16 06/25/24 14:00 86 16 06/25/24 13:30 96 16 06/25/24 13:00 90 16 06/25/24 12:30 82 16 06/25/24 12:00 82 16 06/25/24 11:30 83 16 06/25/24 11:15 88 16 BP Pulse Ox 06/26/24 08:53 06/26/24 08:43 06/26/24 08:00 95 06/26/24 02:44 132/68 98 06/26/24 01:18 97 06/25/24 19:33 97 06/25/24 15:27 95 06/25/24 15:01 121/63 96 06/25/24 14:30 128/70 96 06/25/24 14:00 143/77 96 06/25/24 13:30 123/67 96 06/25/24 13:00 122/64 96 06/25/24 12:30 137/72 96 06/25/24 12:00 136/72 96 06/25/24 11:30 136/67 96 06/25/24 11:15 138/65 96 Intake and Output 06/25/24 06/26/24 06/26/24 22:59 06:59 14:59 Output Total 225 Balance -225 Output: Urine 225 Other: Voiding Method Indwelling Catheter Indwelling Catheter # Voids 0 # Bowel Movements 0 Weight 91.7 kg Results Current Medications Generic Name Dose Route Start Last Admin Trade Name Freq PRN Reason Stop Dose Admin Acetaminophen 650 mg 06/25/24 18:00 06/26/24 06:51 Acetaminophen Tab 325 Mg Tab PO 07/25/24 17:59 Not Given Q6HR [facility] Hydrocodone Bitart/Acetaminophen 1 each 06/26/24 07:56 Hydrocodone/Apap 10-325mg 1 Each Tab PO Q4HR PRN Pain Allopurinol 300 mg 06/26/24 06:00 06/26/24 06:20 Allopurinol 300 Mg Tab PO 300 mg DAILY@0600 [facility] Administration Apixaban 5 mg 06/26/24 21:00 Apixaban 5 Mg Tab PO 07/26/24 20:59 BID [facility] Protocol Aripiprazole 5 mg 06/26/24 06:00 06/26/24 06:20 Aripiprazole 5 Mg Tab PO 5 mg DAILY@0600 [facility] Administration Atorvastatin Calcium 40 mg 06/25/24 18:00 06/25/24 17:17 Atorvastatin 40 Mg Tab PO 40 mg HS@1800 [facility] Administration Bisacodyl 10 mg 06/25/24 12:11 Bisacodyl 10 Mg Supp RECTAL 07/25/24 12:10 DAILY PRN Constipation Budesonide/Formoterol Fumarate 2 puff 06/26/24 08:00 06/26/24 08:43 Symbicort 80-4.5 Mcg Inhaler INHALATION 2 puff RT-BID [facility] Administration Cyclobenzaprine HCl 10 mg 06/26/24 09:00 06/26/24 10:59 Cyclobenzaprine 10 Mg Tab PO 07/25/24 12:10 10 mg TID [facility] Administration Dapagliflozin 5 mg 06/26/24 12:00 Dapagliflozin Propanediol 5 Mg Tablet PO DAILY@1200 [facility] Dextrose/Water 25 ml 06/25/24 16:52 Dextrose 50% Syringe 50 Ml IVP PER PROTOCOL PRN Hypoglycemia Protocol Dextrose/Water 50 ml 06/25/24 16:52 Dextrose 50% Syringe 50 Ml IVP PER PROTOCOL PRN Hypoglycemia Protocol Folic Acid 1 mg 06/26/24 12:00 Folic Acid 1 Mg Tab PO DAILY@1200 [facility] Hydromorphone HCl 0.5 mg 06/25/24 12:11 06/26/24 11:05 Hydromorphone 0.5 Mg/0.5 Ml Syringe IVP 07/25/24 12:10 0.5 mg Q3HR PRN Administration Pain Scale 9 To 10 Lactated Ringer's 1,000 mls @ 20 mls/hr 06/25/24 06:10 06/25/24 07:00 Lactated Ringers IV 07/25/24 06:09 20 mls/hr .Q24H [facility] Administration Insulin Aspart 0 unit 06/25/24 17:30 06/26/24 06:51 Insulin Aspart (Novolog) 100 Unit/Ml Vial SQ Not Given AC-TID [facility] Protocol Ipratropium [place] 0.5 mg 06/26/24 09:00 06/26/24 08:42 Ipratropium 0.5 Mg/2.5 Ml Nebu INHALATION 0.5 mg RT-QID [facility] Administration Ketorolac Tromethamine 15 mg 06/25/24 15:00 06/26/24 10:59 Ketorolac 15 Mg/Ml 1 Ml Vial IVP 06/30/24 14:59 15 mg Q6H [facility] Administration Latanoprost 1 drops 06/25/24 21:00 06/25/24 21:42 Latanoprost 0.005% Ophth Drops 2.5 Ml Btl BOTH EYES 1 drops HS [facility] Administration Loratadine 5 mg 06/25/24 18:00 06/26/24 06:20 Loratadine 10 Mg Tab PO 5 mg BID@0600,1800 [facility] Administration Magnesium Hydroxide 2,400 mg 06/25/24 12:11 Magnesium Hydroxide 2,400 Mg/30 Ml Cup PO 07/25/24 12:10 DAILY PRN Constipation Metoprolol Tartrate 50 mg 06/25/24 18:00 06/26/24 06:20 Metoprolol Tartrate 50 Mg Tab PO 50 mg BID@0600,1800 [facility] Administration Montelukast Sodium 10 mg 06/26/24 12:00 Montelukast 10 Mg Tab PO DAILY@1200 [facility] Pantoprazole Sodium 40 mg 06/25/24 18:00 06/26/24 06:20 Pantoprazole 40 Mg Tablet PO 40 mg BID@0600,1800 [facility] Administration Ropinirole HCl 4 mg 06/25/24 21:00 06/25/24 21:42 Ropinirole Hcl 4 Mg Tablet PO 4 mg HS [facility] Administration Senna/Docusate Sodium 2 each 06/26/24 09:00 06/26/24 10:58 Sennosides-Docusate Sodium 1 Each Tab PO 07/26/24 08:59 2 each DAILY [facility] Administration Sodium Biphosphate/Sodium Phosphate 133 ml 06/25/24 12:11 Na Phos,M-B/Na Phos,Di-Ba 133 Ml Enema RECTAL 07/25/24 12:10 DAILY PRN Constipation Spironolactone 25 mg 06/26/24 09:00 06/26/24 10:58 Spironolactone 25 Mg Tab PO 25 mg DAILY [facility] Administration Tamsulosin HCl 0.4 mg 06/26/24 12:00 Tamsulosin 0.4 Mg Cap.Er.24h PO DAILY@1200 [facility] Intake and Output 06/25/24 06/26/24 06/26/24 22:59 06:59 14:59 Output Total 225 Balance -225 Output: Urine 225 Other: Voiding Method Indwelling Catheter Indwelling Catheter # Voids 0 # Bowel Movements 0 Weight 91.7 kg
[2024-06-26] MEDS: MAGNESIUM OXIDE 400 MG TAB PO SCH (16:25)
[2024-06-26 16:58] LABS: Glucose,Whole Blood 173 mg/dL (70-110)
--- NOTE | 2024-06-26 17:29 | P.PN ---
Progress Note - Text Progress Note Date: 06/26/24 - Chief Complaint Lumbar surgery - History of Present Illness [address] Chavez. Chronic stable medical conditions include COPD, fibromyalgia, hypertension, osteoarthritis, chronic pancreatitis from alcoholism, peripheral neuropathy varicose veins, restless leg syndrome, BPH surgery, Alvarenga's esophagus and chronic low back pain from osteoarthritis. Alcohol cirrhosis. . cardioversion done for atrial fibrillation in March 2022. Chronic multiple wounds on the upper and lower extremity from scratching. Patient's had chronic low back pain. Has been worsening. Did radiate down both the legs. Marcie. Able to walk about 20 feet. Baseline urine and bowels are working fine. Today underwent lumbar surgery. Postprocedure having pain at the operative site. No nausea vomiting. Up in the bed. June 26: Physical therapy helped the patient sit up in a chair. Eating well. Pain present. Cole catheter. The Active Medications Acetaminophen (Acetaminophen Tab 325 Mg Tab) 650 mg PO Q6HR [facility] Stop: 07/25/24 17:59 Last Admin: 06/26/24 12:03 Dose: 650 mg Hydrocodone Bitart/Acetaminophen (Hydrocodone/Apap 10-325mg 1 Each Tab) 1 each PO Q4HR PRN PRN Reason: Pain Allopurinol (Allopurinol 300 Mg Tab) 300 mg PO DAILY@0600 [facility] Last Admin: 06/26/24 06:20 Dose: 300 mg Apixaban (Apixaban 5 Mg Tab) 5 mg PO BID [facility]; Protocol Stop: 07/26/24 20:59 Aripiprazole (Aripiprazole 5 Mg Tab) 5 mg PO DAILY@0600 [facility] Last Admin: 06/26/24 06:20 Dose: 5 mg Atorvastatin Calcium (Atorvastatin 40 Mg Tab) 40 mg PO HS@1800 [facility] Last Admin: 06/25/24 17:17 Dose: 40 mg Bisacodyl (Bisacodyl 10 Mg Supp) 10 mg RECTAL DAILY PRN PRN Reason: Constipation Stop: 07/25/24 12:10 Budesonide/Formoterol Fumarate (Symbicort 80-4.5 Mcg Inhaler) 2 puff INHALATION RT-BID [facility] Last Admin: 06/26/24 08:43 Dose: 2 puff Cyclobenzaprine HCl (Cyclobenzaprine 10 Mg Tab) 10 mg PO TID [facility] Stop: 07/25/24 12:10 Last Admin: 06/26/24 16:25 Dose: 10 mg Dapagliflozin (Dapagliflozin Propanediol 5 Mg Tablet) 5 mg PO DAILY@1200 [facility] Last Admin: 06/26/24 12:04 Dose: 5 mg Dextrose/Water (Dextrose 50% Syringe 50 Ml) 25 ml IVP PER PROTOCOL PRN; Protocol PRN Reason: Hypoglycemia Dextrose/Water (Dextrose 50% Syringe 50 Ml) 50 ml IVP PER PROTOCOL PRN; Protocol PRN Reason: Hypoglycemia Folic Acid (Folic Acid 1 Mg Tab) 1 mg PO DAILY@1200 [facility] Last Admin: 06/26/24 12:03 Dose: 1 mg Hydromorphone HCl (Hydromorphone 0.5 Mg/0.5 Ml Syringe) 0.5 mg IVP Q3HR PRN PRN Reason: Pain Scale 9 To 10 Stop: 07/25/24 12:10 Last Admin: 06/26/24 16:25 Dose: 0.5 mg Lactated Ringer's (Lactated Ringers) 1,000 mls @ 20 mls/hr IV .Q24H [facility] Stop: 07/25/24 06:09 Last Admin: 06/25/24 07:00 Dose: 20 mls/hr Insulin Aspart (Insulin Aspart (Novolog) 100 Unit/Ml Vial) 0 unit SQ AC-TID [facility]; Protocol Last Admin: 06/26/24 12:02 Dose: 6 unit Ipratropium [place] (Ipratropium 0.5 Mg/2.5 Ml Nebu) 0.5 mg INHALATION RT-QID [facility] Last Admin: 06/26/24 16:05 Dose: 0.5 mg Ketorolac Tromethamine (Ketorolac 15 Mg/Ml 1 Ml Vial) 15 mg IVP Q6H [facility] Stop: 06/30/24 14:59 Last Admin: 06/26/24 16:24 Dose: 15 mg Latanoprost (Latanoprost 0.005% Ophth Drops 2.5 Ml Btl) 1 drops BOTH EYES [facility] Last Admin: 06/25/24 21:42 Dose: 1 drops Loratadine (Loratadine 10 Mg Tab) 5 mg PO BID@0600,1800 [facility] Last Admin: 06/26/24 06:20 Dose: 5 mg Magnesium Hydroxide (Magnesium Hydroxide 2,400 Mg/30 Ml Cup) 2,400 mg PO DAILY PRN PRN Reason: Constipation Stop: 07/25/24 12:10 Magnesium Oxide (Magnesium Oxide 400 Mg Tab) 400 mg PO DAILY [facility] Last Admin: 06/26/24 16:25 Dose: 400 mg Metoprolol Tartrate (Metoprolol Tartrate 50 Mg Tab) 50 mg PO BID@0600,1800 [facility] Last Admin: 06/26/24 06:20 Dose: 50 mg Montelukast Sodium (Montelukast 10 Mg Tab) 10 mg PO DAILY@1200 [facility] Last Admin: 06/26/24 12:04 Dose: 10 mg Pantoprazole Sodium (Pantoprazole 40 Mg Tablet) 40 mg PO BID@0600,1800 [facility] Last Admin: 06/26/24 06:20 Dose: 40 mg Ropinirole HCl (Ropinirole Hcl 4 Mg Tablet) 4 mg PO HS [facility] Last Admin: 06/25/24 21:42 Dose: 4 mg Senna/Docusate Sodium (Sennosides-Docusate Sodium 1 Each Tab) 2 each PO DAILY [facility] Stop: 07/26/24 08:59 Last Admin: 06/26/24 10:58 Dose: 2 each Sodium Biphosphate/Sodium Phosphate (Na Phos,M-B/Na Phos,Di-Ba 133 Ml Enema) 133 ml RECTAL DAILY PRN PRN Reason: Constipation Stop: 07/25/24 12:10 Spironolactone (Spironolactone 25 Mg Tab) 25 mg PO DAILY [facility] Last Admin: 06/26/24 10:58 Dose: 25 mg Tamsulosin HCl (Tamsulosin 0.4 Mg Cap.Er.24h) 0.4 mg PO DAILY@1200 [facility] Last Admin: 06/26/24 12:03 Dose: 0.4 mg Past medical history to include: COPD, fibromyalgia, hypertension, osteoarthritis, chronic pancreatitis from alcoholism, peripheral neuropathy, varicose pains, restless leg syndrome, BPH with surgery, Alvarenga's esophagus, chronic low back pain from osteoarthritis, alcohol use disorder with cirrhosis, atrial fibrillation with ablation-went back into atrial fibrillation Social history: lives with his sister Ewelina. Smoked for close to 42 years. Talked 1 month ago.. Drinking alcohol for years. Stopped February 2022 Physical examination: VITAL SIGNS: 98, 84, 17, 122 x 73, 95% room air GENERAL: Up in a chair. Few scattered scratch de la cruz. EYES: Pupils equal. Conjunctiva normal. HEENT: External appearance of nose and ears normal, oral cavity grossly normal. NECK: JVD raised; masses not palpable. HEART: Heart sounds irregular; edema. LUNGS: Respiratory rate increased l; decreased breath sounds ABDOMEN: Soft, , nontender, liver spleen not palpable, no masses palpable. divarification of recti . PSYCH: Alert and oriented x3; mood and affect anxiousl. MUSCULOSKELETAL:No Clubbing/cyanosis;muscles-grossly intact. evidence of OA. Dressing over the incision site DERMATOLOGICAL: Several scattered areas of scratch de la cruz. INVESTIGATIONS, reviewed in the clinical context: June 23, 2024: White count 8.9 hemoglobin 11.8 platelets 254 potassium 3.3 creatinine 1.04 albumin 3 Assessment and plan: -L4 S1 spondylosis with stenosis radiculopathy, neurogenic claudication lower extremity weakness. Patient is undergone L4-L5 laminal foraminotomy for neural decompression Dr. Gabriel Yu on June 25 -COPD in a previous smoker r Trelegy, -Paroxysmal atrial flutter fibrillation a prior history of ablation cardioversion after that.: Telemetry Eliquis, resumed by surgery-. Lopressor 50 p.o. twice daily -chronic congestive heart failure that from systolic and diastolic dysfunction EF 40 % Aldactone fluid restriction - chronic pancreatitis from alcoholism: -Alcohol-induced cirrhosis: Aldactone. -Chronic fibromyalgia Flexeril 10 mg 3 times a day -Diabetes mellitus type 2 on oral hypoglycemic Jardiance Follow Accu-Cheks with sliding scale -Essential hypertension, Lopressor 50 mg twice daily -Primary osteoarthritis, multiple joints bilaterally Pain medications as needed -Alcoholic peripheral neuropathy -restless leg syndrome Requip 4 mg daily at bedtime -Alvarenga's esophagus Protonix 40 mg a day -Full code. PT OT working with the patient. Check labs in the morning. Other medications to continue. Thank you Dr. Yu Past Medical History Past Medical History: Atrial Fibrillation, Coronary Artery Disease (CAD), COPD, Diabetes Mellitus, Eye Disorder, Fibromyalgia, GERD/Reflux, Hyperlipidemia, Hypertension, Myocardial Infarction ([place]), Musculoskeletal Disorder, Osteoarthritis ([place]), Prostate Disorder, Vascular Disorder Additional Past Medical History / Comment(s): Chronic cough, hx pancreatitis, bilateral glaucoma, neuropathy bilateral feet, poor circulation to legs, varicose veins, RLS, hx BPH, colitis, gastritis, Alvarenga's esophagus, hx Shingles in 2012 with joint pain since, chronic low back, bilateral buttock and leg pain, DDD. Last Myocardial Infarction Date:: 09/02/16 History of Any Multi-Drug Resistant Organisms: None Reported Past Surgical History: Appendectomy, Cardiac Ablation, Heart Catheterization, Joint Replacement, Orthopedic Surgery, Prostate Surgery Additional Past Surgical History / Comment(s): Right knee arthroscopy, right knee replacement, EGD, colonoscopy, TURP, cardioversion. Past Anesthesia/Blood Transfusion Reactions: No Reported Reaction Additional Past Anesthesia/Blood Transfusion Reaction / Comm: No hx blood transfusion. Smoking Status: Former smoker
[2024-06-26] MEDS: HYDROcodone/APAP 10-325MG 1 EACH TAB PO PRN (18:39)
[2024-06-26 20:27] LABS: Glucose,Whole Blood 259 mg/dL (70-110)
[2024-06-26] MEDS: APIXABAN 5 MG TAB PO SCH (21:01)
[2024-06-27 04:17] LABS: ALT 13 U/L (4-49); AST 22 U/L (17-59); African American GFR (CKD) >90 (>60 ml/min/1.73 sqM); Albumin 2.5 g/dL (3.5-5.0); Alkaline Phosphatase 79 U/L (38-126); Anion Gap 2 mmol/L; Blood Urea Nitrogen 22 mg/dL (9-20); Calcium 8.2 mg/dL (8.4-10.2); Carbon Dioxide 24 mmol/L (22-30); Chloride 108 mmol/L (98-107); Globulin 2.5 g/dL; Glucose 123 mg/dL (74-99); Magnesium 2.1 mg/dL (1.6-2.3); Non-African American GFR(CKD) >90 (>60 ml/min/1.73 sqM); Potassium 4.5 mmol/L (3.5-5.1); Sodium 134 mmol/L (137-145); Total Bilirubin 0.4 mg/dL (0.2-1.3)
[2024-06-27 04:36] LABS: Basophils % (A) 0 %; Eosinophils % (A) 0 %; Lymphocytes # (A) 0.7 k/uL (1.0-4.8); Lymphocytes % (A) 9 %; MCH 32.8 pg (25.0-35.0); MCHC 32.8 g/dL (31.0-37.0); Macrocytosis Slight; Mean Platelet Volume 7.2; Monocytes # (A) 0.4 k/uL (0-1.0); Monocytes % (A) 5 %; Neutrophils # (A) 6.9 k/uL (1.3-7.7); Neutrophils % (A) 85 %; Platelet Count 249 k/uL (150-450); RDW 14.9 % (11.5-15.5); WBC 8.2 k/uL (3.8-10.6)
[2024-06-27 04:39] LABS: HGB 9.8 gm/dL (13.0-17.5)
[2024-06-27 06:49] LABS: Glucose,Whole Blood 134 mg/dL (70-110)
[2024-06-27] MEDS: INSULIN ASPART (NovoLOG) 100 UNIT/ML VIAL SQ SCH (06:56)
--- NOTE | 2024-06-27 08:27 | P.PN ---
Subjective Progress Note Date: 06/27/24 Principal diagnosis: 1. L4-S1 spondylosis with stenosis and radiculopathy 2. Neurogenic claudication 3. Low back pain 4. Bilateral lower extremity weakness 5. Complex medical patient Patient seen and examined this morning. Patient is resting comfortable in bed. Patient continues to state that he has noticed improvement in his low back pain. Patient states he did work with therapy yesterday and was able to perform most of his tasks, although he has increased radiculopathy with shooting pain into his left buttock and into the posterior left lower extremity. Gabapentin has been ordered for his nerve pain. Surgical incision to the lumbar spine, dressing is clean dry and intact. Continue to encourage patient to increase his activity and use the incentive spirometer 10 times per hour while awake. Patient is planning on discharge too [facility]. He will be cleared from our standpoint when bed available. Objective - Vital Signs Vital signs: Vital Signs Temp 97.8 F 06/27/24 01:23 Pulse 67 06/27/24 07:45 Resp 17 06/27/24 07:45 BP 149/81 06/27/24 01:23 Pulse Ox 96 06/27/24 01:23 FiO2 Intake & Output 06/26/24 06/27/24 06/27/24 18:59 06:59 18:59 Intake Total 1600 Output Total 725 Balance 1600 -725 Intake: Intake, IV Titration 300 Amount Magnesium Sulfate-D5w Pmx 300 1 gm In Dextrose/Water 1 100ml.bag @ 100 mls/hr IVPB Q1H [facility] Rx#: [id number] Oral 1300 Output: Urine 725 Other: Voiding Method Indwelling Catheter Indwelling Catheter Indwelling Catheter - Exam Physical Examination General: The patient is awake and alert, in no acute distress Skin: Skin is warm and dry with no obvious rashes or lesions. Surgical incision to the lumbar spine, dressing is clean dry and intact. Neck: The neck is supple, there is no tenderness and ROM intact. Cardiovascular: There is a regular rate and rhythm. Respiratory: Respirations are non-labored.. Gastrointestinal: Soft, non-distended, non-tender abdomen. Back: There is no tenderness to palpation in the midline, paralumbar, paratho racic or buttocks region. There is no obvious deformity. Musculoskeletal: ROM limited secondary to pain and stiffness from surgical procedure. Right: shoulder abduction 5/5, elbow flexors 5/5, wrist dorsiflexors 5/5. finger abductor 5/5, fire dispatcher 5/5, hip flexor 4/5, knee flexor 4/5, ankle dorsiflexor 4/5, ankle plantarflexion 4/5 and extensor hallucis 5/5. Left: shoulder abduction 5/5, elbow flexors 5/5, wrist dorsiflexors 5/5. finger abductor 5/5, fire dispatcher 5/5, hip flexor 4-/5, knee flexor 4/5, ankle dorsiflexor 5/5, ankle plantarflexion 4/5 and extensor hallucis 5/5. Neurological: CN 2-12 intact. There are no obvious motor or sensory deficits. Movement and coordination equal and intact. Sensory exam to light touch intact C5-T1 and intact from L2-S1. Reflexes 2/4 in bilateral upper and lower extremities. Negative Hoffmans, babinski, and clonus signs. Psychiatric: Cooperative, appropriate mood & affect, normal judgment. - Labs CBC & Chem 7: 06/27/24 03:36 06/27/24 03:36 Labs: Abnormal Lab Results - Last 24 Hours (Table) 06/26/24 06/26/24 06/26/24 Range/Units 11:25 16:56 20:25 RBC (4.30-5.90) m/uL Hgb (13.0-17.5) gm/dL Hct (39.0-53.0) % Lymphocytes # (1.0-4.8) k/uL Sodium (137-145) mmol/L Chloride (98-107) mmol/L BUN (9-20) mg/dL Glucose (74-99) mg/dL POC Glucose (mg/dL) 271 H 173 H 259 H (70-110) mg/dL Calcium (8.4-10.2) mg/dL Total Protein (6.3-8.2) g/dL Albumin (3.5-5.0) g/dL 06/27/24 06/27/24 06/27/24 Range/Units 03:36 03:36 06:48 RBC 3.00 L (4.30-5.90) m/uL Hgb 9.8 L D (13.0-17.5) gm/dL Hct 30.0 L (39.0-53.0) % Lymphocytes # 0.7 L (1.0-4.8) k/uL Sodium 134 L (137-145) mmol/L Chloride 108 H (98-107) mmol/L BUN 22 H (9-20) mg/dL Glucose 123 H (74-99) mg/dL POC Glucose (mg/dL) 134 H (70-110) mg/dL Calcium 8.2 L (8.4-10.2) mg/dL Total Protein 5.0 L (6.3-8.2) g/dL Albumin 2.5 L (3.5-5.0) g/dL Assessment and Plan Assessment: Postoperative day 2: L4-L5, L5-S1 laminoforaminotomy and neural decompression Plan: -Appreciate performance management consultant and team management. -Activity: Ambulate QID, OOB all meals, up and about, limit lifting bending twisting to less than 5 lbs. Use walker or cane if needed for stability. -Daily PT/OT, increase ambulation strength and balance. -Pain control: Adequate at this time -Meds: reviewed -GI ppx: senna, Miralax -DC tanner today. -DVT PPX: Eliquis -Hygiene: Maintain incision clean and dry. May change dressing as needed, please document in notes if performed. Meticulous cleaning after BMs away from the incision site -Encourage IS 10x/hr -Dispo: Anticipate discharge to [facility] when bed available. *I reviewed and discussed this case with my attending Dr. Yu, whom has reviewed this chart and films and is in agreement with assessment and plan of care as outlined above. I have personally seen and examined the patient, performed the documentation and the assessment and plan as written. Number of minutes spent on the visit: 20m.
--- NOTE | 2024-06-27 09:27 | P.PN ---
Subjective Progress Note Date: 06/27/24 Reason for Consult (text): V. tach run History of present illness: This is a 64-year-old male patient of Dr. Lissette Avila with past medical history of severe aortic regurgitation, diabetes mellitus type 2, chronic diastolic heart failure, paroxysmal atrial fibrillation on Eliquis, orthostatic hypotension. We have been asked to evaluate the patient for V. tach. Patient was last seen in the office on 06/05/2024 for preop cardiac evaluation and patient was cleared for surgery knowing that he had increased risk for perioperative cardiac events but no absolute contraindications. Patient is seen today on the [facility] floor. On the dry sand molder of 06/26, patient had a run of 11 beats V. tach. Patient was sleeping at that time so thus asymptomatic. Patient was found to have a low magnesium level of 1.3 and underwent infusion of magnesium 3 g. Patient states he normally takes a magnesium supplement at home. Patient was brought into the hospital on 06/24 and underwent lumbar spine surgery. Blood pressure 127/69, heart rate 88, pulse ox 95% on room air. Laboratory studies: Magnesium initially 1.3 and repeat 2.3. Home cardiac medications: Eliquis 5 mg twice daily, Lipitor 40 mg at bedtime, Jardiance 10 mg at noon, Lopressor 50 mg twice daily, Aldactone 25 mg daily. Echocardiogram performed in the office on 07/26/2023 revealed EF 55%, moderate concentric left ventricular hypertrophy. Aortic valve is calcified with severe aortic regurgitation, moderate mitral regurgitation. Mitral valve is calcified. Moderate tricuspid regurgitation. PASP 45 mmHg. 06/27/2024 Patient is seen and examined. Patient has had no further episodes of V. tach. Magnesium was replaced and patient was started on oral magnesium as well. Repeat blood work today reveals magnesium 2.1 and potassium 4.5, creatinine 0.87. Hemoglobin 9.8. Blood pressure 150/80, heart rate 67, pulse ox 98% on room air. Echocardiogram reveals Physical examination: Gen: This is a 64-year-old male in no acute distress VS: reviewed HEENT: Head is atraumatic, normocephalic. Pupils equal, round. Sclerae is anicteric. NECK: Supple. No JVD. LUNGS: Clear to auscultation. No wheezes or rhonchi. No intercostal retractions. HEART: Regular rate and rhythm. No murmur. ABDOMEN: Soft No tenderness. EXTREMITIES: No pedal edema. No calf tenderness. NEUROLOGICAL: Patient is awake, alert and oriented x3. Assessment: Nonsustained ventricular tachycardia Hypomagnesemia status post replacement Severe aortic regurgitation Diabetes mellitus type 2 Chronic diastolic heart failure Paroxysmal atrial fibrillation on Eliquis which has been resumed Orthostatic hypotension Plan: Continue patient's home cardiac medications Cardiology will sign off this case and follow on an as-needed basis. Please reconsult for any new concerns. Patient may follow-up in the office in one to 2 weeks. Nurse practitioner note has been reviewed, I agree with documented findings and plan of care. Patient was seen and examined. Objective - Vital Signs Vital signs: Vital Signs Temp 97.7 F 06/27/24 07:08 Pulse 77 06/27/24 08:38 Resp 16 06/27/24 08:38 BP 150/80 06/27/24 07:08 Pulse Ox 98 06/27/24 07:08 FiO2 Intake & Output 06/26/24 06/27/24 06/27/24 18:59 06:59 18:59 Intake Total 1600 Output Total 725 Balance 1600 -725 Intake: Intake, IV Titration 300 Amount Magnesium Sulfate-D5w Pmx 300 1 gm In Dextrose/Water 1 100ml.bag @ 100 mls/hr IVPB Q1H [facility] Rx#: [id number] Oral 1300 Output: Urine 725 Other: Voiding Method Indwelling Catheter Indwelling Catheter Indwelling Catheter - Labs CBC & Chem 7: 06/27/24 03:36 06/27/24 03:36 Labs: Abnormal Lab Results - Last 24 Hours (Table) 06/26/24 06/26/24 06/26/24 Range/Units 11:25 16:56 20:25 RBC (4.30-5.90) m/uL Hgb (13.0-17.5) gm/dL Hct (39.0-53.0) % Lymphocytes # (1.0-4.8) k/uL Sodium (137-145) mmol/L Chloride (98-107) mmol/L BUN (9-20) mg/dL Glucose (74-99) mg/dL POC Glucose (mg/dL) 271 H 173 H 259 H (70-110) mg/dL Calcium (8.4-10.2) mg/dL Total Protein (6.3-8.2) g/dL Albumin (3.5-5.0) g/dL 06/27/24 06/27/24 06/27/24 Range/Units 03:36 03:36 06:48 RBC 3.00 L (4.30-5.90) m/uL Hgb 9.8 L D (13.0-17.5) gm/dL Hct 30.0 L (39.0-53.0) % Lymphocytes # 0.7 L (1.0-4.8) k/uL Sodium 134 L (137-145) mmol/L Chloride 108 H (98-107) mmol/L BUN 22 H (9-20) mg/dL Glucose 123 H (74-99) mg/dL POC Glucose (mg/dL) 134 H (70-110) mg/dL Calcium 8.2 L (8.4-10.2) mg/dL Total Protein 5.0 L (6.3-8.2) g/dL Albumin 2.5 L (3.5-5.0) g/dL
[2024-06-27] MEDS: GABAPENTIN 300 MG CAP PO SCH (09:47)
[2024-06-27 11:22] LABS: Glucose,Whole Blood 162 mg/dL (70-110)
[2024-06-27 16:41] LABS: Glucose,Whole Blood 278 mg/dL (70-110)
--- NOTE | 2024-06-27 17:44 | P.PN ---
Progress Note - Text Progress Note Date: 06/27/24 - Chief Complaint Lumbar surgery - History of Present Illness [address] Chavez. Chronic stable medical conditions include COPD, fibromyalgia, hypertension, osteoarthritis, chronic pancreatitis from alcoholism, peripheral neuropathy varicose veins, restless leg syndrome, BPH surgery, Alvarenag's esophagus and chronic low back pain from osteoarthritis. Alcohol cirrhosis. . cardioversion done for atrial fibrillation in March 2022. Chronic multiple wounds on the upper and lower extremity from scratching. Patient's had chronic low back pain. Has been worsening. Did radiate down both the legs. Marcie. Able to walk about 20 feet. Baseline urine and bowels are working fine. Today underwent lumbar surgery. Postprocedure having pain at the operative site. No nausea vomiting. Up in the bed. June 26: Physical therapy helped the patient sit up in a chair. Eating well. Pain present. Cole catheter. June 27: Up in bed. Pain better controlled. Eating fair. I discussed with the patient about discontinue Cole concerned about infection. And use a urine bottle. Patient not very happy about that. Did reinforce the concern for infection. Patient did walk 5 to 6 feet with physical therapy. Active Medications Acetaminophen (Acetaminophen Tab 325 Mg Tab) 650 mg PO Q6HR [facility] Stop: 07/25/24 17:59 Last Admin: 06/27/24 17:01 Dose: 650 mg Hydrocodone Bitart/Acetaminophen (Hydrocodone/Apap 10-325mg 1 Each Tab) 1 each PO Q4HR PRN PRN Reason: Pain Last Admin: 06/27/24 08:49 Dose: 1 each Allopurinol (Allopurinol 300 Mg Tab) 300 mg PO DAILY@0600 [facility] Last Admin: 06/27/24 06:48 Dose: 300 mg Apixaban (Apixaban 5 Mg Tab) 5 mg PO BID [facility]; Protocol Stop: 07/26/24 20:59 Last Admin: 06/27/24 09:44 Dose: 5 mg Aripiprazole (Aripiprazole 5 Mg Tab) 5 mg PO DAILY@0600 [facility] Last Admin: 06/27/24 06:48 Dose: 5 mg Atorvastatin Calcium (Atorvastatin 40 Mg Tab) 40 mg PO HS@1800 [facility] Last Admin: 06/27/24 17:01 Dose: 40 mg Bisacodyl (Bisacodyl 10 Mg Supp) 10 mg RECTAL DAILY PRN PRN Reason: Constipation Stop: 07/25/24 12:10 Budesonide/Formoterol Fumarate (Symbicort 80-4.5 Mcg Inhaler) 2 puff INHALATION RT-BID [facility] Last Admin: 06/27/24 08:38 Dose: 2 puff Cyclobenzaprine HCl (Cyclobenzaprine 10 Mg Tab) 10 mg PO TID [facility] Stop: 07/25/24 12:10 Last Admin: 06/27/24 17:01 Dose: 10 mg Dapagliflozin (Dapagliflozin Propanediol 5 Mg Tablet) 5 mg PO DAILY@1200 [facility] Last Admin: 06/27/24 12:41 Dose: 5 mg Dextrose/Water (Dextrose 50% Syringe 50 Ml) 25 ml IVP PER PROTOCOL PRN; Protocol PRN Reason: Hypoglycemia Dextrose/Water (Dextrose 50% Syringe 50 Ml) 50 ml IVP PER PROTOCOL PRN; Protocol PRN Reason: Hypoglycemia Folic Acid (Folic Acid 1 Mg Tab) 1 mg PO DAILY@1200 [facility] Last Admin: 06/27/24 12:40 Dose: 1 mg Gabapentin (Gabapentin 300 Mg Cap) 300 mg PO BID [facility] Last Admin: 06/27/24 09:47 Dose: 300 mg Hydromorphone HCl (Hydromorphone 0.5 Mg/0.5 Ml Syringe) 0.5 mg IVP Q3HR PRN PRN Reason: Pain Scale 9 To 10 Stop: 07/25/24 12:10 Last Admin: 06/27/24 17:00 Dose: 0.5 mg Lactated Ringer's (Lactated Ringers) 1,000 mls @ 20 mls/hr IV .Q24H [facility] Stop: 07/25/24 06:09 Last Admin: 06/27/24 09:33 Dose: Not Given Insulin Aspart (Insulin Aspart (Novolog) 100 Unit/Ml Vial) 0 unit SQ ACHS [facility]; Protocol Last Admin: 06/27/24 17:01 Dose: 6 unit Ipratropium [place] (Ipratropium 0.5 Mg/2.5 Ml Nebu) 0.5 mg INHALATION RT-QID [facility] Last Admin: 06/27/24 16:07 Dose: 0.5 mg Ketorolac Tromethamine (Ketorolac 15 Mg/Ml 1 Ml Vial) 15 mg IVP Q6H [facility] Stop: 06/30/24 14:59 Last Admin: 06/27/24 16:59 Dose: 15 mg Latanoprost (Latanoprost 0.005% Ophth Drops 2.5 Ml Btl) 1 drops BOTH EYES [facility] Last Admin: 06/26/24 22:45 Dose: Not Given Loratadine (Loratadine 10 Mg Tab) 5 mg PO BID@0600,1800 [facility] Last Admin: 06/27/24 17:01 Dose: 5 mg Magnesium Hydroxide (Magnesium Hydroxide 2,400 Mg/30 Ml Cup) 2,400 mg PO DAILY PRN PRN Reason: Constipation Stop: 07/25/24 12:10 Magnesium Oxide (Magnesium Oxide 400 Mg Tab) 400 mg PO DAILY [facility] Last Admin: 06/27/24 09:43 Dose: 400 mg Metoprolol Tartrate (Metoprolol Tartrate 50 Mg Tab) 50 mg PO BID@0600,1800 [facility] Last Admin: 06/27/24 17:00 Dose: 50 mg Montelukast Sodium (Montelukast 10 Mg Tab) 10 mg PO DAILY@1200 [facility] Last Admin: 06/27/24 12:41 Dose: 10 mg Pantoprazole Sodium (Pantoprazole 40 Mg Tablet) 40 mg PO BID@0600,1800 [facility] Last Admin: 06/27/24 17:00 Dose: 40 mg Ropinirole HCl (Ropinirole Hcl 4 Mg Tablet) 4 mg PO [facility] Last Admin: 06/26/24 21:09 Dose: 4 mg Senna/Docusate Sodium (Sennosides-Docusate Sodium 1 Each Tab) 2 each PO DAILY [facility] Stop: 07/26/24 08:59 Last Admin: 06/27/24 09:45 Dose: 2 each Sodium Biphosphate/Sodium Phosphate (Na Phos,M-B/Na Phos,Di-Ba 133 Ml Enema) 133 ml RECTAL DAILY PRN PRN Reason: Constipation Stop: 07/25/24 12:10 Spironolactone (Spironolactone 25 Mg Tab) 25 mg PO DAILY [facility] Last Admin: 06/27/24 09:44 Dose: 25 mg Tamsulosin HCl (Tamsulosin 0.4 Mg Cap.Er.24h) 0.4 mg PO DAILY@1200 [facility] Last Admin: 06/27/24 12:40 Dose: 0.4 mg Past medical history to include: COPD, fibromyalgia, hypertension, osteoarthritis, chronic pancreatitis from alcoholism, peripheral neuropathy, varicose pains, restless leg syndrome, BPH with surgery, Alvarenga's esophagus, chronic low back pain from osteoarthritis, alcohol use disorder with cirrhosis, atrial fibrillation with ablation-went back into atrial fibrillation Social history: lives with his sister Ewelina. Smoked for close to 42 years. Talked 1 month ago.. Drinking alcohol for years. Stopped February 2022 Physical examination: VITAL SIGNS: 98.2, 77, 18, 124 x 69, 98% room air GENERAL: Up in bed comfortable few scattered scratch de la cruz. EYES: Pupils equal. Conjunctiva normal. HEENT: External appearance of nose and ears normal, oral cavity grossly normal. NECK: JVD raised; masses not palpable. HEART: Heart sounds irregular; edema. LUNGS: Respiratory rate increased l; decreased breath sounds ABDOMEN: Soft, , nontender, liver spleen not palpable, no masses palpable. divarification of recti . Cole catheter- PSYCH: Alert and oriented x3; mood and affect anxiousl. MUSCULOSKELETAL:No Clubbing/cyanosis;muscles-grossly intact. evidence of OA. Dressing over the incision site DERMATOLOGICAL: Several scattered areas of scratch de la cruz, of different duration. INVESTIGATIONS, reviewed in the clinical context: June 23, 2024: White count 8.9 hemoglobin 11.8 platelets 254 potassium 3.3 creatinine 1.04 albumin 3 Assessment and plan: -L4 S1 spondylosis with stenosis radiculopathy, neurogenic claudication lower extremity weakness. Patient is undergone L4-L5 laminal foraminotomy for neural decompression Dr. Gabriel Yu on June 25 -COPD in a previous smoker r Trelegy, -Paroxysmal atrial flutter fibrillation a prior history of ablation cardioversion after that.: Telemetry Eliquis, resumed by surgery-. Lopressor 50 p.o. twice daily -chronic congestive heart failure that from systolic and diastolic dysfunction EF 40 % Aldactone - chronic pancreatitis from alcoholism: -Alcohol-induced cirrhosis: Aldactone. -Chronic fibromyalgia Flexeril 10 mg 3 times a day -Diabetes mellitus type 2 on oral hypoglycemic Jardiance Follow Accu-Cheks with sliding scale -Essential hypertension, Lopressor 50 mg twice daily -Primary osteoarthritis, multiple joints bilaterally Pain medications as needed -Alcoholic peripheral neuropathy -restless leg syndrome Requip 4 mg daily at bedtime -Alvarenga's esophagus Protonix 40 mg a day -Full code. DC Cole catheter. Other medication to continue. DC IV fluids. Discussed with patient. Activity with PT OT. Thank you Dr. Yu Past Medical History Past Medical History: Atrial Fibrillation, Coronary Artery Disease (CAD), COPD, Diabetes Mellitus, Eye Disorder, Fibromyalgia, GERD/Reflux, Hyperlipidemia, Hypertension, Myocardial Infarction ([place]), Musculoskeletal Disorder, Osteoarthritis (OA), Prostate Disorder, Vascular Disorder Additional Past Medical History / Comment(s): Chronic cough, hx pancreatitis, bilateral glaucoma, neuropathy bilateral feet, poor circulation to legs, varicose veins, RLS, hx BPH, colitis, gastritis, Alvarenga's esophagus, hx Shingles in 2012 with joint pain since, chronic low back, bilateral buttock and leg pain, DDD. Last Myocardial Infarction Date:: 09/02/16 History of Any Multi-Drug Resistant Organisms: None Reported Past Surgical History: Appendectomy, Cardiac Ablation, Heart Catheterization, Joint Replacement, Orthopedic Surgery, Prostate Surgery Additional Past Surgical History / Comment(s): Right knee arthroscopy, right knee replacement, EGD, colonoscopy, TURP, cardioversion. Past Anesthesia/Blood Transfusion Reactions: No Reported Reaction Additional Past Anesthesia/Blood Transfusion Reaction / Comm: No hx blood transfusion. Smoking Status: Former smoker
[2024-06-27 20:28] LABS: Glucose,Whole Blood 153 mg/dL (70-110)
[2024-06-28 06:52] LABS: Glucose,Whole Blood 116 mg/dL (70-110)
--- NOTE | 2024-06-28 09:36 | P.PN ---
Subjective Progress Note Date: 06/28/24 Reason for Consult (text): V. tach run History of present illness: This is a 64-year-old male patient of Dr. Lissette Avila with past medical history of severe aortic regurgitation, diabetes mellitus type 2, chronic diastolic heart failure, paroxysmal atrial fibrillation on Eliquis, orthostatic hypotension. We have been asked to evaluate the patient for V. tach. Patient was last seen in the office on 06/05/2024 for preop cardiac evaluation and patient was cleared for surgery knowing that he had increased risk for perioperative cardiac events but no absolute contraindications. Patient is seen today on the [facility] floor. On the early childhood coordinator of 06/26, patient had a run of 11 beats V. tach. Patient was sleeping at that time so thus asymptomatic. Patient was found to have a low magnesium level of 1.3 and underwent infusion of magnesium 3 g. Patient states he normally takes a magnesium supplement at home. Patient was brought into the hospital on 06/24 and underwent lumbar spine surgery. Blood pressure 127/69, heart rate 88, pulse ox 95% on room air. Laboratory studies: Magnesium initially 1.3 and repeat 2.3. Home cardiac medications: Eliquis 5 mg twice daily, Lipitor 40 mg at bedtime, Jardiance 10 mg at noon, Lopressor 50 mg twice daily, Aldactone 25 mg daily. Echocardiogram performed in the office on 07/26/2023 revealed EF 55%, moderate concentric left ventricular hypertrophy. Aortic valve is calcified with severe aortic regurgitation, moderate mitral regurgitation. Mitral valve is calcified. Moderate tricuspid regurgitation. PASP 45 mmHg. 06/27/2024 Patient is seen and examined. Patient has had no further episodes of V. tach. Magnesium was replaced and patient was started on oral magnesium as well. Repeat blood work today reveals magnesium 2.1 and potassium 4.5, creatinine 0.87. Hemoglobin 9.8. Blood pressure 150/80, heart rate 67, pulse ox 98% on room air. Echocardiogram reveals 06/28/2024 Patient is seen and examined. He has known new concerns today. He has had no further episodes of V. tach. Blood pressure 128/80, heart rate in the 80s and 90s, pulse ox 96% on room air. Physical examination: Gen: This is a 64-year-old male in no acute distress VS: reviewed HEENT: Head is atraumatic, normocephalic. Pupils equal, round. Sclerae is anicteric. NECK: Supple. No JVD. LUNGS: Clear to auscultation. No wheezes or rhonchi. No intercostal retractions. HEART: Regular rate and rhythm. No murmur. ABDOMEN: Soft No tenderness. EXTREMITIES: No pedal edema. No calf tenderness. NEUROLOGICAL: Patient is awake, alert and oriented x3. Assessment: Nonsustained ventricular tachycardia x 1 episode Hypomagnesemia status post replacement Severe aortic regurgitation Diabetes mellitus type 2 Chronic diastolic heart failure Paroxysmal atrial fibrillation on Eliquis which has been resumed Orthostatic hypotension Plan: Continue patient's home cardiac medications Cardiology will sign off this case and follow on an as-needed basis. Please reconsult for any new concerns. Patient may follow-up in the office in one to 2 weeks. Nurse practitioner note has been reviewed, I agree with documented findings and plan of care. Patient was seen and examined. Objective - Vital Signs Vital signs: Vital Signs Temp 98.4 F 06/28/24 07:12 Pulse 92 06/28/24 09:09 Resp 16 06/28/24 09:09 BP 128/80 06/28/24 07:12 Pulse Ox 96 06/28/24 07:12 FiO2 Intake & Output 06/27/24 06/28/24 06/28/24 18:59 06:59 18:59 Intake Total 975 Output Total 380 0 Balance 975 -380 0 Intake: Oral 975 Output: Urine 380 Straight 380 Post Void Residual 0 Other: Voiding Method Indwelling Catheter Indwelling Catheter - Labs CBC & Chem 7: 06/27/24 03:36 06/27/24 03:36 Labs: Abnormal Lab Results - Last 24 Hours (Table) 06/27/24 06/27/24 06/27/24 Range/Units 11:21 16:39 20:27 POC Glucose (mg/dL) 162 H 278 H 153 H (70-110) mg/dL 06/28/24 Range/Units 06:51 POC Glucose (mg/dL) 116 H (70-110) mg/dL
--- NOTE | 2024-06-28 10:30 | P.PN ---
Subjective Progress Note Date: 06/28/24 Principal diagnosis: Chronic low back pain, bilateral lower extremity weakness, multilevel lumbar spondylosis and stenosis Patient was examined today at bedside, he is sitting up resting in his hospital chair. He feels that the pain in the low back is improving. He continues to have left lower extremity radicular pain mainly in the buttock region. Gabapentin 300 mg twice a day was started yesterday, I did increase that to 3 times a day today. Discussed with case management the hope for subacute rehab discharge today. Patient has no headaches, lightheadedness, chest pain or shortness of breath Objective - Vital Signs Vital signs: Vital Signs Temp 98.4 F 06/28/24 07:12 Pulse 92 06/28/24 09:09 Resp 16 06/28/24 09:09 BP 128/80 06/28/24 07:12 Pulse Ox 96 06/28/24 07:12 FiO2 Intake & Output 06/27/24 06/28/24 06/28/24 18:59 06:59 18:59 Intake Total 975 Output Total 380 0 Balance 975 -380 0 Intake: Oral 975 Output: Urine 380 Straight 380 Post Void Residual 0 Other: Voiding Method Indwelling Catheter Indwelling Catheter - Exam Gen: AOx3, NAD VSS stable at this time Integument: Surgical incision is in good position condition, no active drainage Palpation: Mild tenderness with palpation of the lumbar spine ROM: Full range of motion in all major muscle groups of the bilateral upper and lower extremities, no focal deficits Sensory Exam: Senory exam to light touch is intact C5-T1 Senosry exam to light touch is intact L2-S1 Motor: 5/5 strength appreciate in the right lower extremity with hip flexion, knee extension, knee flexion, plantarflexion, dorsiflexion, EHL, FHL 4/5 strength appreciated the left lower extremity with hip flexion, knee extension, knee flexion, plantarflexion, dorsiflexion, EHL, FHL Reflexes: 2/4 in all UE and LE Negative clonus bilaterally - Labs CBC & Chem 7: 06/27/24 03:36 06/27/24 03:36 Labs: Abnormal Lab Results - Last 24 Hours (Table) 06/27/24 06/27/24 06/27/24 Range/Units 11:21 16:39 20:27 POC Glucose (mg/dL) 162 H 278 H 153 H (70-110) mg/dL 06/28/24 Range/Units 06:51 POC Glucose (mg/dL) 116 H (70-110) mg/dL Assessment and Plan Assessment: Postoperative day #1 status post L4-L5, L5-L1 laminoforaminotomy Chronic low back pain Bilateral lower extremity weakness Multilevel lumbar spondylosis and stenosis Plan: Pain control, continue with current medications. Did increase gabapentin 300 mg 3 times daily. Wound care, continue to monitor surgical dressing Weight-bear as tolerated, recommend the use of a walker at all times Encourage incentive spirometer Medical recommendations appreciated Discharge planning: Hopeful discharge to subacute rehab today Time with Patient: Less than 30
[2024-06-28 11:34] LABS: Glucose,Whole Blood 136 mg/dL (70-110)
[2024-06-28] MEDS: GABAPENTIN 300 MG CAP PO SCH (15:10)
--- NOTE | 2024-06-28 15:15 | P.PN ---
Subjective Progress Note Date: 06/28/24 Interval History: [address] Chavez. Chronic stable medical conditions include COPD, fibromyalgia, hypertension, osteoarthritis, chronic pancreatitis from alcoholism, peripheral neuropathy varicose veins, restless leg syndrome, BPH surgery, Alvarenga's esophagus and chronic low back pain from osteoarthritis. Alcohol cirrhosis. . cardioversion done for atrial fibrillation in March 2022. Chronic multiple wounds on the upper and lower extremity from scratching. Patient's had chronic low back pain. Has been worsening. Did radiate down both the legs. Marcie. Able to walk about 20 feet. Baseline urine and bowels are working fine. Today underwent lumbar surgery. Postprocedure having pain at the operative site. No nausea vomiting. Up in the bed. June 26: Physical therapy helped the patient sit up in a chair. Eating well. Pain present. Cole catheter. June 27: Up in bed. Pain better controlled. Eating fair. I discussed with the patient about discontinue Cole concerned about infection. And use a urine bottle. Patient not very happy about that. Did reinforce the concern for infection. Patient did walk 5 to 6 feet with physical therapy. 06/28/2024 Patient was seen and examined today. No issues overnight. No further episodes of V. tach, cardiology following, recommended to continue beta-lila. Per orthopedic plan to discharge to subacute rehab. Assessment and plan: L4 S1 spondylosis with stenosis radiculopathy, neurogenic claudication lower extremity weakness. Patient is undergone L4-L5 laminal foraminotomy for neural decompression Dr. Gabriel Yu on June 25 -COPD in a previous smoker Trelegy, -Paroxysmal atrial flutter fibrillation a prior history of ablation cardioversion after that.: -NSVT Telemetry Eliquis, resumed by surgery-. Lopressor 50 p.o. twice daily Cardiology consulted -chronic congestive heart failure that from systolic and diastolic dysfunction EF 40 % -NSVT Aldactone - chronic pancreatitis from alcoholism: -Alcohol-induced cirrhosis: Aldactone. -Chronic fibromyalgia Flexeril 10 mg 3 times a day -Diabetes mellitus type 2 on oral hypoglycemic Jardiance Follow Accu-Cheks with sliding scale -Essential hypertension, Lopressor 50 mg twice daily -Primary osteoarthritis, multiple joints bilaterally Pain medications as needed -Alcoholic peripheral neuropathy -restless leg syndrome Requip 4 mg daily at bedtime -Alvarenga's esophagus Protonix 40 mg a day -Full code. DVT prophylaxis: Anticoagulated with Eliquis. PHYSICAL EXAMINATION: GENERAL: The patient is A&O x3, NAD HEENT: EOMI, Sclerae anicteric, Moist Mucous membranes Neck: Supple, Non tender, No JVD PULMONARY: Equal breath souds B/L, No wheezing, No crackles. CARDIOVASCULAR: S1, S2 present. No murmurs, rubs, or gallops. ABDOMEN: Soft, nontender, nondistended, normoactive bowel sounds. No guarding or rebound tenderness. MUSCULOSKELETAL: No edema, No cyanosis. No clubbing. Normal ROM. Intact peripheral pulses. NEUROLOGICAL: CN 2-12 grossly intact. No FND Skin: No Rash REVIEW OF SYSTEMS: CONSTITUTIONAL: No fever or chills. CARDIOVASCULAR: No chest pain, palpitations or syncope. PULMONARY: No shortness of breath, no cough, sore throat. GASTROINTESTINAL: No nausea, vomiting, diarrhea, abdominal pain. : No Dysuria, urgency, frequency. Extremities: No edema. NEUROLOGICAL: No headaches, no weakness, or numbness Dictation was produced using [employer] dictation software. please excuse any grammatical, word or spelling errors. Objective - Vital Signs Vital signs: Vital Signs Temp 98.4 F 06/28/24 14:00 Pulse 82 06/28/24 15:06 Resp 16 06/28/24 15:06 BP 122/64 06/28/24 14:00 Pulse Ox 98 06/28/24 14:00 FiO2 Intake & Output 06/27/24 06/28/24 06/28/24 18:59 06:59 18:59 Intake Total 975 Output Total 380 0 Balance 975 -380 0 Intake: Oral 975 Output: Urine 380 Straight 380 Post Void Residual 0 Other: Voiding Method Indwelling Catheter Indwelling Catheter - Labs CBC & Chem 7: 06/27/24 03:36 06/27/24 03:36 Labs: Abnormal Lab Results - Last 24 Hours (Table) 06/27/24 06/27/24 06/28/24 Range/Units 16:39 20:27 06:51 POC Glucose (mg/dL) 278 H 153 H 116 H (70-110) mg/dL 06/28/24 Range/Units 11:33 POC Glucose (mg/dL) 136 H (70-110) mg/dL
[2024-06-28 17:30] LABS: Glucose,Whole Blood 158 mg/dL (70-110)
[2024-06-28 20:32] LABS: Glucose,Whole Blood 132 mg/dL (70-110)
[2024-06-29 06:47] LABS: Glucose,Whole Blood 114 mg/dL (70-110)
--- NOTE | 2024-06-29 11:15 | P.PN ---
Subjective [address] Chavez. Chronic stable medical conditions include COPD, fibromyalgia, hypertension, osteoarthritis, chronic pancreatitis from alcoholism, peripheral neuropathy varicose veins, restless leg syndrome, BPH surgery, Alvarenga's esophagus and chronic low back pain from osteoarthritis. Alcohol cirrhosis. . cardioversion done for atrial fibrillation in March 2022. Chronic multiple wounds on the upper and lower extremity from scratching. Patient's had chronic low back pain. Has been worsening. Did radiate down both the legs. Marcie. Able to walk about 20 feet. Baseline urine and bowels are working fine. Today underwent lumbar surgery. Postprocedure having pain at the operative site. No nausea vomiting. Up in the bed. June 26: Physical therapy helped the patient sit up in a chair. Eating well. Pain present. Cole catheter. June 27: Up in bed. Pain better controlled. Eating fair. I discussed with the patient about discontinue Cole concerned about infection. And use a urine bottle. Patient not very happy about that. Did reinforce the concern for infection. Patient did walk 5 to 6 feet with physical therapy. 06/28/2024 Patient was seen and examined today. No issues overnight. No further episodes of V. tach, cardiology following, recommended to continue beta-lila. Per orthopedic plan to discharge to subacute rehab. 06/29 Patient complaining of some left leg pain and low back pain States he has good bowel movement No other new complaints Objective - Vital Signs Vital signs: Vital Signs Temp 98.9 F 06/29/24 08:23 Pulse 80 06/29/24 09:54 Resp 20 06/29/24 08:23 BP 122/70 06/29/24 08:23 Pulse Ox 97 06/29/24 08:23 FiO2 Intake & Output 06/28/24 06/29/24 06/29/24 18:59 06:59 18:59 Output Total 190 650 Balance -190 -650 Output: Urine 190 650 Post Void Residual 0 Other: Voiding Method Urinal # Voids 1 1 - Exam GENERAL: The patient is alert and oriented x3, not in any acute distress. Well developed, well nourished. HEENT: Pupils are round and equally reacting to light. EOMI. No scleral icterus. No conjunctival pallor. Normocephalic, atraumatic. No pharyngeal erythema. No thyromegaly. CARDIOVASCULAR: S1 and S2 present. No murmurs, rubs, or gallops. PULMONARY: Chest is clear to auscultation, no wheezing , no crackles. ABDOMEN: Soft, nontender, nondistended, normoactive bowel sounds. No palpable organomegaly. MUSCULOSKELETAL: No joint swelling or deformity. EXTREMITIES: No cyanosis, clubbing, or pedal edema. NEUROLOGICAL: Gross neurological examination did not reveal any focal deficits. SKIN: No rashes. no petechiae. - Labs CBC & Chem 7: 06/27/24 03:36 06/27/24 03:36 Labs: Abnormal Lab Results - Last 24 Hours (Table) 06/28/24 06/28/24 06/28/24 Range/Units 11:33 17:28 20:25 POC Glucose (mg/dL) 136 H 158 H 132 H (70-110) mg/dL 06/29/24 Range/Units 06:45 POC Glucose (mg/dL) 114 H (70-110) mg/dL Assessment and Plan Assessment: Assessment and plan: L4 S1 spondylosis with stenosis radiculopathy, neurogenic claudication lower extremity weakness. Patient is undergone L4-L5 laminal foraminotomy for neural decompression Dr. Gabriel Yu on June 25 -COPD in a previous smoker Trelegy, -Paroxysmal atrial flutter fibrillation a prior history of ablation cardioversion after that.: -NSVT Telemetry Eliquis, resumed by surgery-. Lopressor 50 p.o. twice daily Cardiology consulted -chronic congestive heart failure that from systolic and diastolic dysfunction EF 40 % -NSVT Aldactone - chronic pancreatitis from alcoholism: -Alcohol-induced cirrhosis: Aldactone. -Chronic fibromyalgia Flexeril 10 mg 3 times a day -Diabetes mellitus type 2 on oral hypoglycemic Jardiance Follow Accu-Cheks with sliding scale -Essential hypertension, Lopressor 50 mg twice daily -Primary osteoarthritis, multiple joints bilaterally Pain medications as needed -Alcoholic peripheral neuropathy -restless leg syndrome Requip 4 mg daily at bedtime -Alvarenga's esophagus Protonix 40 mg a day -Full code. DVT prophylaxis: Anticoagulated with Eliquis.
[2024-06-29 11:25] LABS: Glucose,Whole Blood 174 mg/dL (70-110)
--- NOTE | 2024-06-29 12:10 | P.PN ---
Subjective Progress Note Date: 06/29/24 Principal diagnosis: Chronic low back pain, bilateral lower extremity weakness, multilevel lumbar spondylosis and stenosis Patient was examined today at bedside, he is sitting up resting in his hospital chair. He feels that the pain in the low back is improving. He continues to have left lower extremity radicular pain mainly in the buttock region. Still waiting for authorization for rehab. Patient has no headaches, lightheadedness, chest pain or shortness of breath Objective - Vital Signs Vital signs: Vital Signs Temp 98.9 F 06/29/24 08:23 Pulse 80 06/29/24 09:54 Resp 20 06/29/24 08:23 BP 122/70 06/29/24 08:23 Pulse Ox 97 06/29/24 08:23 FiO2 Intake & Output 06/28/24 06/29/24 06/29/24 18:59 06:59 18:59 Output Total 190 650 Balance -190 -650 Output: Urine 190 650 Post Void Residual 0 Other: Voiding Method Urinal # Voids 1 1 - Exam Gen: AOx3, NAD VSS stable at this time Integument: Surgical incision is in good position condition, no active drainage Palpation: Mild tenderness with palpation of the lumbar spine ROM: Full range of motion in all major muscle groups of the bilateral upper and lower extremities, no focal deficits Sensory Exam: Senory exam to light touch is intact C5-T1 Senosry exam to light touch is intact L2-S1 Motor: 5/5 strength appreciate in the right lower extremity with hip flexion, knee extension, knee flexion, plantarflexion, dorsiflexion, EHL, FHL 4/5 strength appreciated the left lower extremity with hip flexion, knee extension, knee flexion, plantarflexion, dorsiflexion, EHL, FHL Reflexes: 2/4 in all UE and LE Negative clonus bilaterally - Labs CBC & Chem 7: 06/27/24 03:36 06/27/24 03:36 Labs: Abnormal Lab Results - Last 24 Hours (Table) 06/28/24 06/28/24 06/29/24 Range/Units 17:28 20:25 06:45 POC Glucose (mg/dL) 158 H 132 H 114 H (70-110) mg/dL 06/29/24 Range/Units 11:23 POC Glucose (mg/dL) 174 H (70-110) mg/dL Assessment and Plan Assessment: Postoperative day #2 status post L4-L5, L5-L1 laminoforaminotomy Chronic low back pain Bilateral lower extremity weakness Multilevel lumbar spondylosis and stenosis Plan: Pain control, continue with current medications. Wound care, continue to monitor surgical dressing Weight-bear as tolerated, recommend the use of a walker at all times Encourage incentive spirometer Medical recommendations appreciated Discharge planning: Orthopedically stable for discharge to rehab once authorization is obtained Time with Patient: Less than 30
[2024-06-29 13:16] VITALS: BMI 27.3
--- NOTE | 2024-06-29 15:56 | CA ---
Transthoracic Echo Report Name: Torsten Herrera Age: 64 Gender: M : 1960 Exam Date: 06/29/2024 07:22 Exam Location: [place] [facility] Ht (in): 72 Wt (lb): 202 Ordering Physician: Manasa Brambila Attending/Referring Phys: [id number], Patty Sales Exhibitor Maida Castillo, [place] Procedure CPT: Indications: LVF Cardiac Hx: Technical Quality: Technically difficult study Contrast 1: Definity Total Dose (mL): 2 Contrast 2: Total Dose (mL): MEASUREMENTS (Male / Female) Normal Values 2D ECHO LV Diastolic Diameter PLAX 6.4 cm 4.2 - 5.9 / 3.9 - 5.3 cm LV Systolic Diameter PLAX 4.7 cm IVS Diastolic Thickness 1.7 cm 0.6 - 1.0 / 0.6 - 0.9 cm LVPW Diastolic Thickness 1.4 cm 0.6 - 1.0 / 0.6 - 0.9 cm LV Relative Wall Thickness 0.5 RV Internal Dim ED PLAX 3.8 cm LVOT Diameter 2.9 cm LA Systolic Diameter LX 4.3 cm 3.0 - 4.0 / 2.7 - 3.8 cm M-MODE Aortic Root Diameter MM 4.0 cm AV Cusp Separation MM 2.6 cm DOPPLER AV Peak Velocity 130.2 cm/s AV Peak Gradient 6.8 mmHg AV Mean Velocity 84.9 cm/s AV Mean Gradient 3.2 mmHg AV Velocity Time Integral 27.8 cm AI Peak Velocity 268.3 cm/s AI Peak Gradient 28.8 mmHg AI Pressure Half Time 729.8 ms MV Area PHT 3.7 cm??? MV Deceleration Time 230.2 ms FINDINGS Left Ventricle Left ventricular ejection fraction is estimated at 50-55 %. Dilated left ventricle. Moderate to severe hypertrophy. Left ventricle systolic function borderline normal Right Ventricle Moderate right ventricular dilatation. Unable to estimate the right ventricular systolic pressure. Right Atrium Right atrium not well visualized. Left Atrium Mildly increased left atrial diameter. Mildly increased left atrial area. Mitral Valve Mitral valve thickened. No mitral stenosis, or prolapse.mild mitral regurgitation. Aortic Valve Trileaflet aortic valve. Aortic valve sclerosis. Moderate to severe aortic regurgitation. Tricuspid Valve Structurally normal tricuspid valve. No tricuspid stenosis, or prolapse.mild tricuspid regurgitation. Pulmonic Valve Pulmonic valve not well visualized. Pericardium No pericardial or pleural effusion.prominent epicardial fat. Aorta Mild aortic dilatation at the level of the sinuses of valsalva 40 mm CONCLUSIONS 1. Dilated left ventricle with borderline left ventricle systolic function and evidence of hypertrophy 2. Moderate to severe aortic regurgitation 3. Mild mitral and tricuspid regurgitation Technically difficult study. Definity ECHO contrast used for improved visualization of the endocardial borders (inadequate visualization of two or more contiguous segments). Previewed by: Dr. Yosi Barnett MD (Electronically Signed) Final Date: 29 June 2024 15:55
[2024-06-29 16:58] LABS: Glucose,Whole Blood 180 mg/dL (70-110)
[2024-06-29 20:46] LABS: Glucose,Whole Blood 133 mg/dL (70-110)
[2024-06-30 06:50] LABS: Glucose,Whole Blood 108 mg/dL (70-110)
[2024-06-30] MEDS ORDERED: IPRATROPIUM-ALBUTEROL 3 ML NEB INHALATION PRN (09:04)
[2024-06-30 11:28] LABS: Glucose,Whole Blood 122 mg/dL (70-110)
--- NOTE | 2024-06-30 12:07 | P.PN ---
Subjective [address] Chavez. Chronic stable medical conditions include COPD, fibromyalgia, hypertension, osteoarthritis, chronic pancreatitis from alcoholism, peripheral neuropathy varicose veins, restless leg syndrome, BPH surgery, Alvarenga's esophagus and chronic low back pain from osteoarthritis. Alcohol cirrhosis. . cardioversion done for atrial fibrillation in March 2022. Chronic multiple wounds on the upper and lower extremity from scratching. Patient's had chronic low back pain. Has been worsening. Did radiate down both the legs. Marcie. Able to walk about 20 feet. Baseline urine and bowels are working fine. Today underwent lumbar surgery. Postprocedure having pain at the operative site. No nausea vomiting. Up in the bed. June 26: Physical therapy helped the patient sit up in a chair. Eating well. Pain present. Cole catheter. June 27: Up in bed. Pain better controlled. Eating fair. I discussed with the patient about discontinue Cole concerned about infection. And use a urine bottle. Patient not very happy about that. Did reinforce the concern for infection. Patient did walk 5 to 6 feet with physical therapy. 06/28/2024 Patient was seen and examined today. No issues overnight. No further episodes of V. tach, cardiology following, recommended to continue beta-lila. Per orthopedic plan to discharge to subacute rehab. 06/29 Patient complaining of some left leg pain and low back pain States he has good bowel movement No other new complaints 06/30 Patient still complaining from pain in the lower back and the left lower extremity. Is not in distress though. Hemodynamically stable Sugar controlled. Heart rate is up again and his sotalol and Coreg were resumed. Echocardiogram showing ejection fraction of 50 to 55% with moderate to severe aortic regurgitation Objective - Vital Signs Vital signs: Vital Signs Temp 97.9 F 06/30/24 07:25 Pulse 75 06/30/24 11:58 Resp 18 06/30/24 07:25 BP 122/70 06/30/24 07:25 Pulse Ox 96 06/30/24 07:25 FiO2 Intake & Output 06/29/24 06/30/24 06/30/24 18:59 06:59 18:59 Output Total 200 850 Balance -200 -850 Weight 91.7 kg Output: Urine 200 850 Other: Voiding Method Urinal Urinal Urinal # Voids 1 3 # Bowel Movements 3 - Exam GENERAL: The patient is alert and oriented x3, not in any acute distress. Well developed, well nourished. HEENT: Pupils are round and equally reacting to light. EOMI. No scleral icterus. No conjunctival pallor. Normocephalic, atraumatic. No pharyngeal erythema. No thyromegaly. CARDIOVASCULAR: S1 and S2 present. No murmurs, rubs, or gallops. PULMONARY: Chest is clear to auscultation, no wheezing , no crackles. ABDOMEN: Soft, nontender, nondistended, normoactive bowel sounds. No palpable organomegaly. MUSCULOSKELETAL: No joint swelling or deformity. EXTREMITIES: No cyanosis, clubbing, or pedal edema. NEUROLOGICAL: Gross neurological examination did not reveal any focal deficits. SKIN: No rashes. no petechiae. - Labs CBC & Chem 7: 06/27/24 03:36 06/27/24 03:36 Labs: Abnormal Lab Results - Last 24 Hours (Table) 06/29/24 06/29/24 06/30/24 Range/Units 16:57 20:43 11:26 POC Glucose (mg/dL) 180 H 133 H 122 H (70-110) mg/dL Assessment and Plan Assessment: Assessment and plan: L4 S1 spondylosis with stenosis radiculopathy, neurogenic claudication lower extremity weakness. Patient is undergone L4-L5 laminal foraminotomy for neural decompression Dr. Gabriel Yu on June 25 -COPD in a previous smoker Trelegy, -Paroxysmal atrial flutter fibrillation a prior history of ablation cardioversion after that.: -NSVT Telemetry Eliquis, resumed by surgery-. Lopressor 50 p.o. twice daily Cardiology consulted -chronic congestive heart failure that from systolic and diastolic dysfunction EF 40 % -NSVT Aldactone - chronic pancreatitis from alcoholism: -Alcohol-induced cirrhosis: Aldactone. -Chronic fibromyalgia Flexeril 10 mg 3 times a day -Diabetes mellitus type 2 on oral hypoglycemic Jardiance Follow Accu-Cheks with sliding scale -Essential hypertension, Lopressor 50 mg twice daily -Primary osteoarthritis, multiple joints bilaterally Pain medications as needed -Alcoholic peripheral neuropathy -restless leg syndrome Requip 4 mg daily at bedtime -Alvarenga's esophagus Protonix 40 mg a day -Full code. DVT prophylaxis: Anticoagulated with Eliquis.
--- NOTE | 2024-06-30 12:34 | P.PN ---
Subjective Progress Note Date: 06/30/24 Principal diagnosis: Chronic low back pain, bilateral lower extremity weakness, multilevel lumbar spondylosis and stenosis Patient was examined today at bedside, he is sitting up resting in his hospital bed. He feels that the pain in the low back is improving. He continues to have left lower extremity radicular pain mainly in the buttock region. Still waiting for authorization for rehab. Patient has no headaches, lightheadedness, chest pain or shortness of breath Objective - Vital Signs Vital signs: Vital Signs Temp 97.9 F 06/30/24 07:25 Pulse 76 06/30/24 12:08 Resp 18 06/30/24 07:25 BP 122/70 06/30/24 07:25 Pulse Ox 96 06/30/24 07:25 FiO2 Intake & Output 06/29/24 06/30/24 06/30/24 18:59 06:59 18:59 Output Total 200 850 Balance -200 -850 Weight 91.7 kg Output: Urine 200 850 Other: Voiding Method Urinal Urinal Urinal # Voids 1 3 # Bowel Movements 3 - Exam Gen: AOx3, NAD VSS stable at this time Integument: Surgical incision is in good position condition, no active drainage Palpation: Mild tenderness with palpation of the lumbar spine ROM: Full range of motion in all major muscle groups of the bilateral upper and lower extremities, no focal deficits Sensory Exam: Senory exam to light touch is intact C5-T1 Senosry exam to light touch is intact L2-S1 Motor: 5/5 strength appreciate in the right lower extremity with hip flexion, knee extension, knee flexion, plantarflexion, dorsiflexion, EHL, FHL 4/5 strength appreciated the left lower extremity with hip flexion, knee e xtension, knee flexion, plantarflexion, dorsiflexion, EHL, FHL Reflexes: 2/4 in all UE and LE Negative clonus bilaterally - Labs CBC & Chem 7: 06/27/24 03:36 06/27/24 03:36 Labs: Abnormal Lab Results - Last 24 Hours (Table) 06/29/24 06/29/24 06/30/24 Range/Units 16:57 20:43 11:26 POC Glucose (mg/dL) 180 H 133 H 122 H (70-110) mg/dL Assessment and Plan Assessment: Postoperative day #5 status post L4-L5, L5-L1 laminoforaminotomy Chronic low back pain Bilateral lower extremity weakness Multilevel lumbar spondylosis and stenosis Plan: Pain control, continue with current medications. Wound care, continue to monitor surgical dressing Weight-bear as tolerated, recommend the use of a walker at all times Encourage incentive spirometer Medical recommendations appreciated Discharge planning: Orthopedically stable for discharge to rehab once authorization is obtained Time with Patient: Less than 30
[2024-06-30 16:34] LABS: Glucose,Whole Blood 134 mg/dL (70-110)
[2024-06-30 21:16] LABS: Glucose,Whole Blood 179 mg/dL (70-110)
[2024-07-01 06:46] LABS: Glucose,Whole Blood 113 mg/dL (70-110)
--- NOTE | 2024-07-01 07:52 | P.PN ---
Subjective Progress Note Date: 07/01/24 Principal diagnosis: 1. L4-S1 spondylosis with stenosis and radiculopathy 2. Neurogenic claudication 3. Low back pain 4. Bilateral lower extremity weakness 5. Complex medical patient Patient seen and examined this morning. Patient is resting comfortable in bed. Patient continues to report radiculopathy with shooting pain into his left buttock and into the posterior left lower extremity. He reports his symptoms are the same and has not noticed anymore relief with the Gabapentin. Surgical incision to the lumbar spine, dressing is clean dry and intact. Continue to en courage patient to increase his activity and use the incentive spirometer 10 times per hour while awake. Pending insurance authorization, patient should be discharged today to [facility]. Objective - Vital Signs Vital signs: Vital Signs Temp 98.8 F 07/01/24 07:00 Pulse 89 07/01/24 07:00 Resp 18 07/01/24 07:00 BP 144/82 07/01/24 07:00 Pulse Ox 95 07/01/24 07:00 FiO2 Intake & Output 06/30/24 07/01/24 07/01/24 18:59 06:59 18:59 Intake Total 118 Output Total 1110 Balance -992 Intake: Oral 118 Output: Urine 1110 Other: Voiding Method Urinal Urinal # Voids 1 # Bowel Movements 1 - Exam Physical Examination General: The patient is awake and alert, in no acute distress Skin: Skin is warm and dry with no obvious rashes or lesions. Surgical incision to the lumbar spine, dressing is clean dry and intact. Neck: The neck is supple, there is no tenderness and ROM intact. Cardiovascular: There is a regular rate and rhythm. Respiratory: Respirations are non-labored.. Gastrointestinal: Soft, non-distended, non-tender abdomen. Back: There is no tenderness to palpation in the midline, paralumbar, parathoracic or buttocks region. There is no obvious deformity. Musculoskeletal: ROM limited secondary to pain and stiffness from surgical procedure. Right: shoulder abduction 5/5, elbow flexors 5/5, wrist dorsiflexors 5/5. finger abductor 5/5, provider education specialist 5/5, hip flexor 4/5, knee flexor 4/5, ankle dorsiflexor 4/5, ankle plantarflexion 4/5 and extensor hallucis 5/5. Left: shoulder abduction 5/5, elbow flexors 5/5, wrist dorsiflexors 5/5. finger abductor 5/5, provider education specialist 5/5, hip flexor 4-/5, knee flexor 4/5, ankle dorsiflexor 5/5, ankle plantarflexion 4/5 and extensor hallucis 5/5. Neurological: CN 2-12 intact. There are no obvious motor or sensory deficits. Movement and coordination equal and intact. Sensory exam to light touch intact C5-T1 and intact from L2-S1. Reflexes 2/4 in bilateral upper and lower extremities. Negative Hoffmans, babinski, and clonus signs. Psychiatric: Cooperative, appropriate mood & affect, normal judgment. - Labs CBC & Chem 7: 06/27/24 03:36 06/27/24 03:36 Labs: Abnormal Lab Results - Last 24 Hours (Table) 06/30/24 06/30/24 06/30/24 Range/Units 11:26 16:33 21:14 POC Glucose (mg/dL) 122 H 134 H 179 H (70-110) mg/dL 07/01/24 Range/Units 06:45 POC Glucose (mg/dL) 113 H (70-110) mg/dL Assessment and Plan Assessment: Postoperative day 6: L4-L5, L5-S1 laminoforaminotomy and neural decompression Plan: -Appreciate farm consultant and team management. -Activity: Ambulate QID, OOB all meals, up and about, limit lifting bending twisting to less than 5 lbs. Use walker or cane if needed for stability. -Daily PT/OT, increase ambulation strength and balance. -Pain control: Adequate at this time -Meds: reviewed -GI ppx: senna, Miralax -DVT PPX: Eliquis -Hygiene: Maintain incision clean and dry. May change dressing as needed, please document in notes if performed. Meticulous cleaning after BMs away from the incision site -Encourage IS 10x/hr -Dispo: Anticipate discharge to [facility] when bed available. *I reviewed and discussed this case with my attending Dr. Yu, whom has reviewed this chart and films and is in agreement with assessment and plan of care as outlined above. I have personally seen and examined the patient, performed the documentation and the assessment and plan as written. Number of minutes spent on the visit: 20m.
[2024-07-01] MEDS ORDERED: TRANEXAMIC 1,000 MG/100ML-NACL 1,000 MG in SALINE 1 100ML.BAG IVPB PRN (08:00)
--- NOTE | 2024-07-01 09:06 | CT ---
EXAMINATION TYPE: CT lumbar spine wo con DATE OF EXAM: 07/01/2024 8:55 AM COMPARISON: 06/08/2024. CLINICAL INDICATION: Male, 64 years old with history of LLE Radiculopathy post op; PHH, LLE Radiculop athy post op TECHNIQUE: Multiple axial images were obtained from the midportion of T11 through the sacroiliac felicia nts. Soft tissue and bone windows in coronal and sagittal planes were obtained and reviewed. Contrast used: mL of , (None, if empty). Oral contrast used: (None, if empty). CT DLP: 1757.6 mGycm, Automated exposure control for dose reduction was used. FINDINGS: Degeneration changes of the spine with joint space narrowing ossified formation and facet joint arthr opathy and vacuum disc phenomenon. Additionally there is partial ankylosis of the L2-L3 vertebral bod ies anteriorly. There is postsurgical changes with skin aly in the subcutaneous tissues. Postop f luid collection is seen in the surgical bed measuring at least 37 x 26 x 40 mm. There is a few foci o f gas within this fluid collection. No evidence of fracture. Left gina laminectomy at L4/L5. No evide nce of fracture. Severe atherosclerosis of the arterial vasculature tear. Scattered colonic diverticulosis. IMPRESSION: 1. Moderate to severe degeneration changes spine with postop changes at postsurgical changes at L4-L 5 with fluid collection in the surgical bed with few foci of gas. Correlate for signs and symptoms of infection and date of procedure. [facility], , 07/01/2024 9:04 AM
[2024-07-01 11:45] LABS: Glucose,Whole Blood 102 mg/dL (70-110)
[2024-07-01 16:36] LABS: Glucose,Whole Blood 159 mg/dL (70-110)
[2024-07-01 21:48] LABS: Glucose,Whole Blood 145 mg/dL (70-110)
[2024-07-02] MEDS ORDERED: TRANEXAMIC 1,000 MG/100ML-NACL 1,000 MG in SALINE 1 100ML.BAG IVPB PRN (05:00)
[2024-07-02 06:30] LABS: Glucose,Whole Blood 98 mg/dL (70-110)
--- NOTE | 2024-07-02 07:28 | P.PN ---
Progress Note - Text Progress Note Date: 07/02/24 Patient has remained NPO since midnight for surgical intervention scheduled later this afternoon. Patient denies any questions or concerns at this time. He states he is looking forward to having the procedure and to move forward with his recovery.
[2024-07-02] MEDS ORDERED: VANCOMYCIN IV PER PHARMACY 1 EACH MISC MISCELLANE PRN (08:00)
--- NOTE | 2024-07-02 08:17 | PN ---
PROGRESS NOTE DATE OF SERVICE: 07/01/2024 SUBJECTIVE: This is a 64-year-old gentleman, who was admitted with L4-L5 laminectomy, is scheduled to have revision today. No chest pain. No palpitation. Complains of back pain. OBJECTIVE: VITAL SIGNS: Pulse is 86, blood pressure 126/74, respirations 18. CHEST: A few scattered rhonchi. ABDOMEN: Soft. NERVOUS SYSTEM: Nonfocal. LABORATORY DATA: Glucose 102, rest of the labs are noted. ASSESSMENT: 1. Status post L4-L5 laminal foraminotomy for neural compression for revision. 2. Chronic obstructive pulmonary disease. 3. Paroxysmal atrial flutter. 4. Multiple complex medical issues. RECOMMENDATIONS AND DISCUSSION: Recommend to continue current management and continue symptomatic treatment. Otherwise, recommend repeat labs. Closely follow with Orthopedic Surgery. DVT prophylaxis. Dr. Tamayo will follow tomorrow. MMJONL / IJN: [id number] /
[2024-07-02 09:03] LABS: ALT 24 U/L (10-49); AST 19 U/L (14-35); Albumin/Globulin Ratio 1.36 Ratio (1.60-3.17); Alkaline Phosphatase 100 U/L (41-126); BUN/Creat Ratio 18.71 Ratio (12.00-20.00); Blood Urea Nitrogen 13.1 mg/dL (9.0-27.0); Calcium 8.6 mg/dL (8.7-10.3); Carbon Dioxide 23.2 mmol/L (21.6-31.8); Chloride 106 mmol/L (96-109); Globulin 2.2 g/dL (1.6-3.3); Glucose 104 mg/dL (70-110); Potassium 4.5 mmol/L (3.5-5.5); Sodium 138 mmol/L (135-145); Total Bilirubin <0.2 mg/dL (0.3-1.2); Total Protein 5.2 g/dL (6.2-8.2)
[2024-07-02 10:16] LABS: Basophils # (A) 0.05 X 10*3/uL (0.00-0.10); Basophils % (A) 0.8 %; Eosinophils % (A) 1.7 %; HCT 30.6 % (39.6-50.0); HGB 9.5 g/dL (13.0-17.0); Lymphocytes # (A) 1.02 X 10*3/uL (0.90-5.00); Lymphocytes % (A) 16.9 %; MCH 31.6 pg (27.0-32.0); MCV 101.7 FL (80.0-97.0); Mean Platelet Volume 8.8 FL (9.5-12.2); Monocytes # (A) 0.49 X 10*3/uL (0.20-1.00); Monocytes % (A) 8.1 %; NRBC Per 100 WBC 0 X 10*3/uL (0.00-0.01); Neutrophils # (A) 4.23 X 10*3/uL (1.80-7.70); Neutrophils % (A) 70.3 %; Platelet Count 248 X 10*3/uL (140-440); RBC 3.01 X 10*6/uL (4.40-5.60); RDW 14.8 % (11.5-14.5); WBC 6.02 X 10*3/uL (4.50-10.00)
--- NOTE | 2024-07-02 11:44 | P.PN ---
Progress Note - Text Progress Note Date: 07/02/24 CT reviewed. Pt has fluid collection in wound bed likely post op hematoma vs seroma. No other significant areas of stenosis. Discussed revision decompression and evacuation of this due to his continued radicular sx preventing him from DC. He agrees. We discussed risks and benefits again at length. He is comfortable to proceed with surgery today.
[2024-07-02 11:46] LABS: Glucose,Whole Blood 104 mg/dL (70-110)
[2024-07-02] MEDS: IV FLUID CONTINUATION 1,000 ML IV ONE ×2 (15:38→17:00)
[2024-07-02 15:45] LABS: Glucose,Whole Blood 97 mg/dL (70-110)
[2024-07-02] MEDS: VANCOMYCIN 1,500 MG in SODIUM CHLORIDE 0.9% 500 ML 500 ML IVPB PRN (15:50)
[2024-07-02] MEDS ORDERED: TRANEXAMIC 1,000 MG/100ML-NACL PREMIX BAG ONE (17:01)
[2024-07-02] MEDS ORDERED: MIDAZOLAM 2 MG/2 ML VIAL ONE (17:01)
[2024-07-02] MEDS ORDERED: LIDOCAINE 1% INJ 10MG/ML (20 ML MDV) ONE (17:01)
[2024-07-02] MEDS ORDERED: ROCURONIUM 10 MG/ML (5 ML VIAL) IV ONE (17:01)
[2024-07-02] MEDS ORDERED: fentaNYL (PF) 50 MCG/ML 2 ML AMP ONE (17:01)
[2024-07-02] MEDS ORDERED: PROPOFOL 10 MG/ML 20 ML VIAL IV ONE (17:01)
[2024-07-02] MEDS ORDERED: SUCCINYLCHOLINE CHLORIDE 200 MG/10 ML VIAL IV ONE (17:01)
[2024-07-02] MEDS ORDERED: GLYCOPYRROLATE 0.2 MG/ML 2 ML VIAL ONE (17:01)
[2024-07-02] MEDS ORDERED: NEOSTIGMINE 1 MG/ML 10 ML VIAL ONE (17:01)
[2024-07-02] MEDS ORDERED: HYDROmorphone (PF) 1 MG/ML ONE (17:01)
[2024-07-02] MEDS: THROMBIN (BOVINE) 5,000 UNIT VIAL TOPICAL ONE (17:42)
[2024-07-02] MEDS: BUPIVACAINE (PF) 0.5% 30 ML VIAL SQ ONE (18:25)
[2024-07-02] MEDS: LIDOCAINE 2%-EPI 1:100,000 20 ML VIAL SQ ONE (18:26)
--- NOTE | 2024-07-02 18:53 | XR ---
EXAMINATION TYPE: XR lumbar spine 2 or 3V, FL guidance operating room DATE OF EXAM: 07/02/2024 6:34 PM COMPARISON: Pre Operative Images if available both CT/MRI or plain film CLINICAL INDICATION: Male, 64 years old with history of LUMBAR FUSION; TECHNIQUE: XR lumbar spine 2 or 3V, FL guidance operating room, multiple fluoroscopic images provided for procedure. Total fluoroscopy time: 13.9 seconds Total submitted images to PACS: 2 DAP: 7.3180 mGym2 Gycm2 uGym2 cGycm2 or equivalent. FINDINGS: Fluoroscopic images during internal fixation/arthroplasty demonstrate fixation hardware in appropriat e position. Hardware appears intact. No immediate complication identified. IMPRESSION: 1. No evidence for intraoperative complication. 2. Please see the operative/procedural note for further details. [facility], , 07/02/2024 6:50 PM
[2024-07-02] MEDS: HYDROmorphone 0.5 MG/0.5 ML SYRINGE IVP PRN ×2 (19:22→19:39)
--- NOTE | 2024-07-02 20:42 | P.PN ---
Progress Note - Text Progress Note Date: 07/02/24 - Chief Complaint Lumbar surgery - History of Present Illness [address] Chavez. Chronic stable medical conditions include COPD, fibromyalgia, hypertension, osteoarthritis, chronic pancreatitis from alcoholism, peripheral neuropathy varicose veins, restless leg syndrome, BPH surgery, Alvarenga's esophagus and chronic low back pain from osteoarthritis. Alcohol cirrhosis. . cardioversion done for atrial fibrillation in March 2022. Chronic multiple wounds on the upper and lower extremity from scratching. Patient's had chronic low back pain. Has been worsening. Did radiate down both the legs. Marcie. Able to walk about 20 feet. Baseline urine and bowels are working fine. Today underwent lumbar surgery. Postprocedure having pain at the operative site. No nausea vomiting. Up in the bed. June 26: Physical therapy helped the patient sit up in a chair. Eating well. Pain present. Cole catheter. June 27: Up in bed. Pain better controlled. Eating fair. I discussed with the patient about discontinue Cole concerned about infection. And use a urine bottle. Patient not very happy about that. Did reinforce the concern for infection. Patient did walk 5 to 6 feet with physical therapy. 06/28/2024 Patient was seen and examined today. No issues overnight. No further episodes of V. tach, cardiology following, recommended to continue beta-lila. Per orthopedic plan to discharge to subacute rehab. 06/29 Patient complaining of some left leg pain and low back pain States he has good bowel movement No other new complaints 06/30 Patient still complaining from pain in the lower back and the left lower extremity. Is not in distress though. Hemodynamically stable Sugar controlled. Heart rate is up again and his sotalol and Coreg were resumed. Echocardiogram showing ejection fraction of 50 to 55% with moderate to severe aortic regurgitation July 02, 2024: Saw the patient this afternoon. Has been having creasing pain on the left side going down to the back of the left thigh.CT scan lumbar spine without contrast done yesterday showed fluid collection in the surgical bed with few foci of gas. Patient's had no fever no white count. This evening I spoke to Dr. Yu. He only had what appeared to be seroma. And he drained the same. Not infected appearing. Hence given no white count no fever and locally look like seroma no indication for antibiotics. Otherwise patient was n.p.o. at this morning. Otherwise eating well. Having bowel movements. Active Medications Acetaminophen (Acetaminophen Tab 325 Mg Tab) 650 mg PO Q6HR [facility] Stop: 07/25/24 17:59 Last Admin: 07/02/24 12:02 Dose: 650 mg Hydrocodone Bitart/Acetaminophen (Hydrocodone/Apap 10-325mg 1 Each Tab) 1 each PO Q4HR PRN PRN Reason: Pain Last Admin: 07/02/24 13:49 Dose: 1 each Albuterol/Ipratropium (Ipratropium-Albuterol 3 Ml Neb) 3 ml INHALATION RT-QID PRN PRN Reason: Shortness Of Breath Or Wheezing Allopurinol (Allopurinol 300 Mg Tab) 300 mg PO DAILY@0600 [facility] Last Admin: 07/02/24 06:27 Dose: Not Given Aripiprazole (Aripiprazole 5 Mg Tab) 5 mg PO DAILY@0600 [facility] Last Admin: 07/02/24 06:37 Dose: 5 mg Atorvastatin Calcium (Atorvastatin 40 Mg Tab) 40 mg PO HS@1800 [facility] Last Admin: 07/01/24 17:25 Dose: 40 mg Bisacodyl (Bisacodyl 10 Mg Supp) 10 mg RECTAL DAILY PRN PRN Reason: Constipation Stop: 07/25/24 12:10 Budesonide/Formoterol Fumarate (Symbicort 80-4.5 Mcg Inhaler) 2 puff INHALATION RT-BID [facility] Last Admin: 07/02/24 08:29 Dose: 2 puff Cyclobenzaprine HCl (Cyclobenzaprine 10 Mg Tab) 10 mg PO TID [facility] Stop: 07/25/24 12:10 Last Admin: 07/02/24 15:32 Dose: Not Given Dapagliflozin (Dapagliflozin Propanediol 5 Mg Tablet) 5 mg PO DAILY@1200 [facility] Last Admin: 07/02/24 12:02 Dose: 5 mg Dextrose/Water (Dextrose 50% Syringe 50 Ml) 25 ml IVP PER PROTOCOL PRN; Protocol PRN Reason: Hypoglycemia Dextrose/Water (Dextrose 50% Syringe 50 Ml) 50 ml IVP PER PROTOCOL PRN; Protocol PRN Reason: Hypoglycemia Folic Acid (Folic Acid 1 Mg Tab) 1 mg PO DAILY@1200 [facility] Last Admin: 07/02/24 12:02 Dose: 1 mg Gabapentin (Gabapentin 300 Mg Cap) 300 mg PO TID [facility] Last Admin: 07/02/24 15:32 Dose: Not Given Hydromorphone HCl (Hydromorphone 0.5 Mg/0.5 Ml Syringe) 0.5 mg IVP Q3HR PRN PRN Reason: Pain Last Admin: 07/02/24 19:22 Dose: 0.5 mg Hydromorphone HCl (Hydromorphone 0.5 Mg/0.5 Ml Syringe) 0.5 mg IVP Q5M PRN PRN Reason: Phase 1 or 2 - Pain Control Stop: 07/04/24 19:34 Last Admin: 07/02/24 19:39 Dose: 0.5 mg Hydromorphone HCl (Hydromorphone 0.5 Mg/0.5 Ml Syringe) 0.5 mg IVP Q5M PRN PRN Reason: Phase 1 or 2 - Pain Control Stop: 07/03/24 23:00 Tranexamic Acid/Sodium (Chloride 1,000 mg/ IV Solution) 100 mls @ 200 mls/hr IVPB ONCE PRN PRN Reason: Pre-Op Stop: 07/03/24 00:01 Tranexamic Acid/Sodium (Chloride 1,000 mg/ IV Solution) 100 mls @ 200 mls/hr IVPB ONCE PRN PRN Reason: Pre-Op Stop: 07/03/24 00:01 Lactated Ringer's (Lactated Ringers) 1,000 mls @ 20 mls/hr IV .Q24H [facility] Lactated Ringer's (Lactated Ringers) 1,000 mls @ 20 mls/hr IV .Q24H [facility] Insulin Aspart (Insulin Aspart (Novolog) 100 Unit/Ml Vial) 0 unit SQ ACHS [facility]; Protocol Last Admin: 07/02/24 12:01 Dose: Not Given Ipratropium [place] (Ipratropium 0.5 Mg/2.5 Ml Nebu) 0.5 mg INHALATION RT-QID [facility] Last Admin: 07/02/24 15:32 Dose: Not Given Latanoprost (Latanoprost 0.005% Ophth Drops 2.5 Ml Btl) 1 drops BOTH EYES HS [facility] Last Admin: 07/01/24 22:12 Dose: 1 drops Loratadine (Loratadine 10 Mg Tab) 5 mg PO BID@0600,1800 [facility] Last Admin: 07/02/24 06:27 Dose: Not Given Magnesium Hydroxide (Magnesium Hydroxide 2,400 Mg/30 Ml Cup) 2,400 mg PO DAILY PRN PRN Reason: Constipation Stop: 07/25/24 12:10 Magnesium Oxide (Magnesium Oxide 400 Mg Tab) 400 mg PO DAILY [facility] Last Admin: 07/02/24 08:44 Dose: 400 mg Metoprolol Tartrate (Metoprolol Tartrate 50 Mg Tab) 50 mg PO BID@0600,1800 [facility] Last Admin: 07/02/24 06:37 Dose: 50 mg Montelukast Sodium (Montelukast 10 Mg Tab) 10 mg PO DAILY@1200 [facility] Last Admin: 07/02/24 12:03 Dose: 10 mg Pantoprazole Sodium (Pantoprazole 40 Mg Tablet) 40 mg PO BID@0600,1800 [facility] Last Admin: 07/02/24 06:27 Dose: Not Given Ropinirole HCl (Ropinirole Hcl 4 Mg Tablet) 4 mg PO HS [facility] Last Admin: 07/01/24 22:08 Dose: 4 mg Senna/Docusate Sodium (Sennosides-Docusate Sodium 1 Each Tab) 2 each PO DAILY [facility] Stop: 07/26/24 08:59 Last Admin: 07/02/24 08:44 Dose: 2 each Sodium Biphosphate/Sodium Phosphate (Na Phos,M-B/Na Phos,Di-Ba 133 Ml Enema) 133 ml RECTAL DAILY PRN PRN Reason: Constipation Stop: 07/25/24 12:10 Spironolactone (Spironolactone 25 Mg Tab) 25 mg PO DAILY [facility] Last Admin: 07/02/24 08:44 Dose: 25 mg Tamsulosin HCl (Tamsulosin 0.4 Mg Cap.Er.24h) 0.4 mg PO DAILY@1200 [facility] Last Admin: 07/02/24 12:02 Dose: 0.4 mg Past medical history to include: COPD, fibromyalgia, hypertension, osteoarthritis, chronic pancreatitis from alcoholism, peripheral neuropathy, varicose pains, restless leg syndrome, BPH with surgery, Alvarenga's esophagus, chronic low back pain from osteoarthritis, alcohol use disorder with cirrhosis, atrial fibrillation with ablation-went back into atrial fibrillation Social history: lives with his sister Ewelina. Smoked for close to 42 years. Talked 1 month ago.. Drinking alcohol for years. Stopped February 2022 Physical examination: VITAL SIGNS: Afebrile, 93, 16, 130 x 64, 93% on 3 L GENERAL: Lying in bed, comfortable few scattered scratch de la cruz. EYES: Pupils equal. Conjunctiva normal. HEENT: External appearance of nose and ears normal, oral cavity grossly normal. NECK: JVD raised; masses not palpable. HEART: Heart sounds irregular; edema. LUNGS: Respiratory rate increased l; decreased breath sounds ABDOMEN: Soft, , nontender, liver spleen not palpable, no masses palpable. divar ification of recti . Cole catheter- PSYCH: Alert and oriented x3; mood and affect anxiousl. MUSCULOSKELETAL:No Clubbing/cyanosis;muscles-grossly intact. evidence of OA. Dressing over the incision site DERMATOLOGICAL: Several scattered areas of scratch de la cruz, of different duration. INVESTIGATIONS, reviewed in the clinical context: July 02: White count 6 hemoglobin 9.5 platelets 248 potassium 4.5 creatinine 0.7 June 23, 2024: White count 8.9 hemoglobin 11.8 platelets 254 potassium 3.3 creatinine 1.04 albumin 3 Assessment and plan: -L4 S1 spondylosis with stenosis radiculopathy, neurogenic claudication lower extremity weakness. Patient is undergone L4-L5 laminal foraminotomy for neural decompression Dr. Gabriel Yu on June 25 -Localized seroma at the operative site. Possibly causing increasing pain on the left side with radiculopathy going down the back of the left leg. Local intervention by Dr. Yu today July 02. -COPD in a previous smoker r Trelegy, -Paroxysmal atrial flutter fibrillation a prior history of ablation cardioversion after that.: Telemetry Eliquis, resumed by surgery-. Lopressor 50 p.o. twice daily -chronic congestive heart failure that from systolic and diastolic dysfunction EF 40 % Aldactone - chronic pancreatitis from alcoholism: -Alcohol-induced cirrhosis: Aldactone. -Chronic fibromyalgia Flexeril 10 mg 3 times a day -Diabetes mellitus type 2 on oral hypoglycemic Jardiance Follow Accu-Cheks with sliding scale -Essential hypertension, Lopressor 50 mg twice daily -Primary osteoarthritis, multiple joints bilaterally Pain medications as needed -Alcoholic peripheral neuropathy -restless leg syndrome Requip 4 mg daily at bedtime -Alvarenga's esophagus Protonix 40 mg a day -Full code. Repeat labs in the morning. Will see how patient does. No need for antibiotics after discussed with Dr. Yu. PT OT on the case. Past Medical History Past Medical History: Atrial Fibrillation, Coronary Artery Disease (CAD), COPD, Diabetes Mellitus, Eye Disorder, Fibromyalgia, GERD/Reflux, Hyperlipidemia, Hypertension, Myocardial Infarction ([place]), Musculoskeletal Disorder, Osteoarthritis (OA), Prostate Disorder, Vascular Disorder Additional Past Medical History / Comment(s): Chronic cough, hx pancreatitis, bilateral glaucoma, neuropathy bilateral feet, poor circulation to legs, varicose veins, RLS, hx BPH, colitis, gastritis, Alvarenga's esophagus, hx Shingles in 2013 with joint pain since, chronic low back, bilateral buttock and leg pain, DDD. Last Myocardial Infarction Date:: 09/02/16 History of Any Multi-Drug Resistant Organisms: None Reported Past Surgical History: Appendectomy, Cardiac Ablation, Heart Catheterization, Joint Replacement, Orthopedic Surgery, Prostate Surgery Additional Past Surgical History / Comment(s): Right knee arthroscopy, right knee replacement, EGD, colonoscopy, TURP, cardioversion. Past Anesthesia/Blood Transfusion Reactions: No Reported Reaction Additional Past Anesthesia/Blood Transfusion Reaction / Comm: No hx blood transfusion. Smoking Status: Former smoker
[2024-07-02 20:57] LABS: Glucose,Whole Blood 92 mg/dL (70-110)
[2024-07-02] MEDS: DEXAMETHASONE SOD PHOSPHATE 4 MG/ML 1 ML VIAL IV ONE ×2 (21:50)
[2024-07-02] MEDS: ONDANSETRON 4 MG/2 ML VIAL IVP ONE ×2 (21:50→21:51)
[2024-07-02] MEDS: LACTATED RINGERS 1,000 ML IV SCH ×2 (21:50)
--- NOTE | 2024-07-02 22:20 | P.OP ---
Date of Procedure: 07/02/24 Preoperative Diagnosis: 1. POST OPERATIVE SEROMA 2. S1 TENSIONING WITH RADICULOPATHY 3. LLE PAIN AND WEAKNESS 4. LOW BACK PAIN, RESOLVED. 5. COMPLEX MEDICAL PATIENT Postoperative Diagnosis: 1. POST OPERATIVE SEROMA 2. S1 TENSIONING WITH RADICULOPATHY 3. LLE PAIN AND WEAKNESS 4. LOW BACK PAIN, RESOLVED. 5. COMPLEX MEDICAL PATIENT Procedure(s) Performed: 1. REVISION LAMINOFORAMINOTOMY WITH EXPLORATION L4-S1 2. SEROMA EVACUATION Implants: NONE Anesthesia: ELISABETH Surgeon: Gabriel Yu Drop Forger #1: Na Galeana (was present and assisted with all aspects of the case from position to dressin placement) Estimated Blood Loss (ml): 50 IV fluids (ml): 1,100 Urine output (ml): 0 Pathology: none sent Condition: stable Disposition: PACU Indications for Procedure: 64 yo male who 5 days ago underwent L4-S1 MIS Laminoforaminotomy. He recovered but developed increased S1 tensioning and radicular sx that were worsening and preventing him from ambulating and getting up as well as participating with therapy. This has kept him from DC to rehab. Medications, Gabapentin, Steroids, Toradol, [place], Dilaudid did not help his pain and so CT was ordered. This showed fluid collection in his surgical bed with other post op changes. We discussed with pt and due to his continued and progressive sx he has elected to return to OR for exporation, revision decompression and fluid evacuation. Risks and benefits were discussed again at length as in the risk review from previous surgery. He understands and agrees and is willing to proceed with surgery today. Description of Procedure: L4-S1 LEFT MINIMALLY INVASIVE LAMINOFORAMINOTOMY The patient was seen and examined in the preoperative area. All preoperative protocols were followed. Informed consent was obtained, risks and benefits of the procedure were discussed at length. Risks including bleeding, infection, damage to the surrounding tissue, and risk of reoperation were discussed with the patient. Risk of anesthesia up to and including was discussed with the patient. These are outlined in the risk review. They were willing to accept these risks and all the risks of surgery. The patient was given a weight-based dose of antibiotics in the form of 2 g Ancef. The patient was seen and evaluated by the anesthesia team who deemed them fit for surgery. The site was marked, the patient was willing to proceed with the procedure. The patient was transferred to the operative suite by the Department of anesthesia. They were then drifted off to sleep by the department anesthesia and GETA was performed. The patient tolerated this well. Once confirmation of lines and ventilation the patient was transferred to a prone Michael table very carefully. All bony prominences including wrists, elbows, axilla, chest, hips, and thighs, and feet were padded very well. Special attention was paid to the genitalia, and these were padded accordingly. SCDs were placed on bilateral lower extremities and were connected. Arms were well padded and placed on arm boards up and out in the 90/90 position. Once in position, again we confirmed good ventilation capabilities and that lines were running appropriately. The patient's Lumbar spine was then exposed. 1010s were placed outlining the incision site. Standard alcohol was used to clean the incision site and allowed to dry. C-arm was used to needle localize the pedicles at L4-S1 and bio-gualberto the patient and confirm level for incision which was marked with a skin marker. Operative briefing was performed with all teams and everyone in agreement to proceed. The patient was then prepped and draped in a normal sterile fashion. Timeout was then performed, and all parties agreed with the procedure to be performed. Previous incision was identified and incised. Small amount of serous fluid was expelled from the superficial planes. We then opened deep fascia and a seroma was relased. The area was irrigated. Biplanar fluoroscopy was then used to localize the L4-S1 levels and Initial dilator was sent down and fluoroscopy confirmed levels in AP and lateral views. I then sequentially dilated up to 26 mm and placed a 70 mm x 26 mm retractor tube which was secured to the table with a table arm. Microscope was then brought in for visualization. Limited myomectomy was performed over the facet joints, pars, and lamina of L4, L5, and S1 again for further visualization. Once this was done, jing was used to widen the laminotomy and more of the facet joint was taken but less than 50% total. This allowed further visuzalization of S1 root which was impinged by some scar tissue and lateral recess stenosis as well as previous facet cyst tissue that was removed, but further tissue was coming from the foramen and this was also removed with kerrison rongure. S1 was followed out until it exited ensuring it was completely decompressed. We then turned attention to the L5 root and re- decompressed this area as well as the lateral recess and any further scar tissue or ligamentous tissue that was present. This was also followed out and ensured decompressed. There wound bed was irrigated with irricept and NSS copiously. Meticulous hemostasis was done. Roots were again viszualized and were completely free. Kelly ball probe was used to confirme tracts for nerves. Fluoro was used and confirmed level and completeness of decompression. Once satisfied, the retractor was removed and the wound again irrigated. Local anesthetic was placed remote to the site for pain control and the wound was closed. The surgical bed was inspected, and all roots were found to have ample room and were adequately decompressed along with the dura. There were no apparent injuries. Retractors were then removed. The wound was copiously irrigated with normal saline solution. The deep fascia was closed with 0 Vicryl. Deep subcutaneous tissue was closed with 0 Vicryl and superficial with 2-0 Vicryl. Skin closed with aly. The wound edges approximated well. The wound was then cleaned and covered with a sterile dressing. The patient was then transferred off the table back to their hospital bed atraumatically. They were extubated by the department of anesthesia. They were then transferred to PACU in stable condition having tolerated the procedure with no complications.
[2024-07-03 06:20] LABS: HCT 32.4 % (39.0-53.0); HGB 10.1 gm/dL (13.0-17.5); Hypochromasia Moderate; Lymphocytes % (A) 10 %; MCHC 31.3 g/dL (31.0-37.0); MCV 102.2 fL (80.0-100.0); Macrocytosis Slight; Mean Platelet Volume 7.2; Neutrophils % (A) 82 %; Platelet Count 278 k/uL (150-450); RBC 3.17 m/uL (4.30-5.90); RDW 14.5 % (11.5-15.5); WBC 7.8 k/uL (3.8-10.6)
[2024-07-03 06:21] LABS: Basophils % (A) 0 %; Eosinophils # (A) 0.1 k/uL (0-0.7); Eosinophils % (A) 1 %; Lymphocytes # (A) 0.8 k/uL (1.0-4.8); Monocytes # (A) 0.4 k/uL (0-1.0); Monocytes % (A) 6 %; Neutrophils # (A) 6.4 k/uL (1.3-7.7)
[2024-07-03 06:29] LABS: ALT 22 U/L (4-49); AST 24 U/L (17-59); African American GFR (CKD) >90 (>60 ml/min/1.73 sqM); Albumin 2.9 g/dL (3.5-5.0); Albumin/Globulin Ratio 1.1; Alkaline Phosphatase 85 U/L (38-126); Anion Gap 7 mmol/L; Blood Urea Nitrogen 12 mg/dL (9-20); Calcium 8.4 mg/dL (8.4-10.2); Carbon Dioxide 21 mmol/L (22-30); Chloride 104 mmol/L (98-107); Globulin 2.6 g/dL; Glucose 109 mg/dL (74-99); Non-African American GFR(CKD) >90 (>60 ml/min/1.73 sqM); Potassium 4.8 mmol/L (3.5-5.1); Sodium 132 mmol/L (137-145); Total Bilirubin 0.6 mg/dL (0.2-1.3); Total Protein 5.5 g/dL (6.3-8.2)
[2024-07-03] MEDS ORDERED: HYDROmorphone 0.5 MG/0.5 ML SYRINGE IVP PRN (07:00)
[2024-07-03] MEDS ORDERED: DEXAMETHASONE SOD PHOSPHATE 4 MG/ML 1 ML VIAL IV PRN (07:49)
[2024-07-03] MEDS ORDERED: diazePAM 5 MG TAB PO PRN (07:51)
[2024-07-03] MEDS: GABAPENTIN 300 MG CAP PO SCH (08:38)
--- NOTE | 2024-07-03 08:55 | P.PN ---
Subjective Progress Note Date: 07/03/24 Principal diagnosis: 1. L4-S1 spondylosis with stenosis and radiculopathy 2. Neurogenic claudication 3. Low back pain 4. Bilateral lower extremity weakness 5. Complex medical patient Patient seen and examined this morning. Patient is sitting at edge of bed. Patient continues to report radiculopathy with shooting pain into his left buttock and into the posterior left thigh. He reports his symptoms are the same as prior to his surgery yesterday. Discussed with Dr. Yu and IV decadron has been ordered STAT with IVP to follow. Spoke with PT to allow patient to re ceive medication to alleviate his symptoms prior to therapy. Surgical incision to the lumbar spine, dressing is clean dry and intact. Continue to encourage patient to increase his activity as tolerated and use the incentive spirometer 10 times per hour while awake. Objective - Vital Signs Vital signs: Vital Signs Temp 97.9 F 07/03/24 01:05 Pulse 87 07/03/24 01:05 Resp 16 07/03/24 01:05 BP 124/72 07/03/24 01:05 Pulse Ox 97 07/03/24 01:05 FiO2 Intake & Output 07/02/24 07/03/24 07/03/24 18:59 06:59 18:59 Intake Total 800 Output Total 950 1120 Balance -150 -1120 Intake: IV 800 Output: Urine 900 1120 Straight 770 Estimated Blood Loss 50 Other: Voiding Method Urinal # Voids 2 - Exam Physical Examination General: The patient is awake and alert, in no acute distress Skin: Skin is warm and dry with no obvious rashes or lesions. Surgical incision to the lumbar spine, dressing is clean dry and intact. Neck: The neck is supple, there is no tenderness and ROM intact. Cardiovascular: There is a regular rate and rhythm. Respiratory: Respirations are non-labored.. Gastrointestinal: Soft, non-distended, non-tender abdomen. Back: There is no tenderness to palpation in the midline, paralumbar, parathoracic or buttocks region. There is no obvious deformity. Musculoskeletal: ROM limited secondary to pain and stiffness from surgical p rocedure. Right: shoulder abduction 5/5, elbow flexors 5/5, wrist dorsiflexors 5/5. finger abductor 5/5, assistant professor of drama 5/5, hip flexor 4/5, knee flexor 4/5, ankle dorsiflexor 4/5, ankle plantarflexion 4/5 and extensor hallucis 5/5. Left: shoulder abduction 5/5, elbow flexors 5/5, wrist dorsiflexors 5/5. finger abductor 5/5, assistant professor of drama 5/5, hip flexor 4-/5, knee flexor 4/5, ankle dorsiflexor 5/5, ankle plantarflexion 4/5 and extensor hallucis 5/5. Neurological: CN 2-12 intact. There are no obvious motor or sensory deficits. Movement and coordination equal and intact. Sensory exam to light touch intact C5-T1 and intact from L2-S1. Reflexes 2/4 in bilateral upper and lower extremities. Negative Hoffmans, babinski, and clonus signs. Psychiatric: Cooperative, appropriate mood & affect, normal judgment. - Labs CBC & Chem 7: 07/03/24 05:22 07/03/24 05:22 Labs: Abnormal Lab Results - Last 24 Hours (Table) 07/02/24 07/02/24 07/03/24 Range/Units 03:06 03:06 05:22 RBC 3.01 L 3.17 L (4.40-5.60) X 10*6/uL Hgb 9.5 L 10.1 L (13.0-17.0) g/dL Hct 30.6 L 32.4 L (39.6-50.0) % MCV 101.7 H 102.2 H (80.0-97.0) FL MCHC 31.0 L (32.0-37.0) g/dL RDW 14.8 H (11.5-14.5) % MPV 8.8 L (9.5-12.2) FL Immature Gran # 0.13 H (0.00-0.04) X 10*3/uL Lymphocytes # 0.8 L (1.0-4.8) k/uL Sodium (137-145) mmol/L Carbon Dioxide (22-30) mmol/L Glucose (74-99) mg/dL Calcium 8.6 L (8.7-10.3) mg/dL Total Bilirubin <0.2 L (0.3-1.2) mg/dL Total Protein 5.2 L (6.2-8.2) g/dL Albumin 3.0 L (3.8-4.9) g/dL Albumin/Globulin Ratio 1.36 L (1.60-3.17) Ratio 07/03/ Range/Units 05:22 RBC (4.40-5.60) X 10*6/uL Hgb (13.0-17.0) g/dL Hct (39.6-50.0) % MCV (80.0-97.0) FL MCHC (32.0-37.0) g/dL RDW (11.5-14.5) % MPV (9.5-12.2) FL Immature Gran # (0.00-0.04) X 10*3/uL Lymphocytes # (1.0-4.8) k/uL Sodium 132 L (137-145) mmol/L Carbon Dioxide 21 L (22-30) mmol/L Glucose 109 H (74-99) mg/dL Calcium (8.7-10.3) mg/dL Total Bilirubin (0.3-1.2) mg/dL Total Protein 5.5 L (6.2-8.2) g/dL Albumin 2.9 L (3.8-4.9) g/dL Albumin/Globulin Ratio (1.60-3.17) Ratio Assessment and Plan Assessment: Post op day 8: L4-L5, L5-S1 laminoforaminotomy and neural decompression, Post op Day 1: Revision L4-S1 decompression Left lower extremity radiculopathy Plan: -Appreciate oracle hyperion consultant and team management. -Activity: Ambulate QID, OOB all meals, up and about, limit lifting bending twisting to less than 5 lbs. Use walker or cane if needed for stability. -Daily PT/OT, increase ambulation strength and balance. -Pain control: Adequate at this time -Meds: reviewed -GI ppx: senna, Miralax -DVT PPX: Eliquis may resume 48-72 hrs post surgery. -Hygiene: Maintain incision clean and dry. May change dressing as needed, please document in notes if performed. Meticulous cleaning after BMs away from the incision site -Encourage IS 10x/hr -Dispo: Anticipate discharge to [facility] within 72hrs *I reviewed and discussed this case with my attending Dr. Yu, whom has reviewed this chart and films and is in agreement with assessment and plan of care as outlined above. I have personally seen and examined the patient, performed the documentation and the assessment and plan as written. Number of minutes spent on the visit: 20m.
[2024-07-03] MEDS: DEXAMETHASONE SOD PHOSPHATE 20 MG in DEXTROSE 5% IN WATER 50 ML IV STA (09:41)
[2024-07-03 11:27] LABS: Glucose,Whole Blood 132 mg/dL (70-110)
--- NOTE | 2024-07-03 15:48 | P.PN ---
Progress Note - Text Progress Note Date: 07/03/24 - Chief Complaint Lumbar surgery - History of Present Illness 64 [address] Chavez. Chronic stable medical conditions include COPD, fibromyalgia, hypertension, osteoarthritis, chronic pancreatitis from alcoholism, peripheral neuropathy varicose veins, restless leg syndrome, BPH surgery, Alvarenga's esophagus and chronic low back pain from osteoarthritis. Alcohol cirrhosis. . cardioversion done for atrial fibrillation in March 2022. Chronic multiple wounds on the upper and lower extremity from scratching. Patient's had chronic low back pain. Has been worsening. Did radiate down both the legs. Marcie. Able to walk about 20 feet. Baseline urine and bowels are working fine. Today underwent lumbar surgery. Postprocedure having pain at the operative site. No nausea vomiting. Up in the bed. June 26: Physical therapy helped the patient sit up in a chair. Eating well. Pain present. Cole catheter. June 27: Up in bed. Pain better controlled. Eating fair. I discussed with the patient about discontinue Cole concerned about infection. And use a urine bottle. Patient not very happy about that. Did reinforce the concern for infection. Patient did walk 5 to 6 feet with physical therapy. 06/28/2024 Patient was seen and examined today. No issues overnight. No further episodes of V. tach, cardiology following, recommended to continue beta-lila. Per orthopedic plan to discharge to subacute rehab. 06/29 Patient complaining of some left leg pain and low back pain States he has good bowel movement No other new complaints 06/30 Patient still complaining from pain in the lower back and the left lower extremity. Is not in distress though. Hemodynamically stable Sugar controlled. Heart rate is up again and his sotalol and Coreg were resumed. Echocardiogram showing ejection fraction of 50 to 55% with moderate to severe aortic regurgitation July 02, 2024: Saw the patient this afternoon. Has been having creasing pain on the left side going down to the back of the left thigh.CT scan lumbar spine without contrast done yesterday showed fluid collection in the surgical bed with few foci of gas. Patient's had no fever no white count. This evening I spoke to Dr. Yu. He only had what appeared to be seroma. And he drained the same. Not infected appearing. Hence given no white count no fever and locally look like seroma no indication for antibiotics. Otherwise patient was n.p.o. at this morning. Otherwise eating well. Having bowel movements. July 03, 2024: Up in the chair. Still having some pain at the back of the left thigh. K-pad ordered. Eating well. Activity and pain management per surgical team. Active Medications Acetaminophen (Acetaminophen Tab 325 Mg Tab) 650 mg PO Q6HR [facility] Stop: 07/25/24 17:59 Last Admin: 07/03/24 11:02 Dose: 650 mg Hydrocodone Bitart/Acetaminophen (Hydrocodone/Apap 10-325mg 1 Each Tab) 1 each PO Q4HR PRN PRN Reason: Pain Last Admin: 07/03/24 11:02 Dose: 1 each Albuterol/Ipratropium (Ipratropium-Albuterol 3 Ml Neb) 3 ml INHALATION RT-QID PRN PRN Reason: Shortness Of Breath Or Wheezing Allopurinol (Allopurinol 300 Mg Tab) 300 mg PO DAILY@0600 [facility] Last Admin: 07/03/24 06:07 Dose: 300 mg Aripiprazole (Aripiprazole 5 Mg Tab) 5 mg PO DAILY@0600 [facility] Last Admin: 07/03/24 06:07 Dose: 5 mg Atorvastatin Calcium (Atorvastatin 40 Mg Tab) 40 mg PO HS@1800 [facility] Last Admin: 07/02/24 21:09 Dose: 40 mg Bisacodyl (Bisacodyl 10 Mg Supp) 10 mg RECTAL DAILY PRN PRN Reason: Constipation Stop: 07/25/24 12:10 Budesonide/Formoterol Fumarate (Symbicort 80-4.5 Mcg Inhaler) 2 puff INHALATION RT-BID [facility] Last Admin: 07/03/24 09:47 Dose: 2 puff Cyclobenzaprine HCl (Cyclobenzaprine 10 Mg Tab) 10 mg PO TID [facility] Stop: 07/25/24 12:10 Last Admin: 07/03/24 08:38 Dose: 10 mg Dapagliflozin (Dapagliflozin Propanediol 5 Mg Tablet) 5 mg PO DAILY@1200 [facility] Last Admin: 07/03/24 11:03 Dose: 5 mg Dexamethasone Sodium Phosphate (Dexamethasone Sod Phosphate 4 Mg/Ml 1 Ml Vial) 4 mg IV Q4HR PRN PRN Reason: Nausea And Vomiting Dextrose/Water (Dextrose 50% Syringe 50 Ml) 25 ml IVP PER PROTOCOL PRN; Protocol PRN Reason: Hypoglycemia Dextrose/Water (Dextrose 50% Syringe 50 Ml) 50 ml IVP PER PROTOCOL PRN; Protocol PRN Reason: Hypoglycemia Diazepam (Diazepam 5 Mg Tab) 10 mg PO TID PRN PRN Reason: Analgesia Folic Acid (Folic Acid 1 Mg Tab) 1 mg PO DAILY@1200 [place] Last Admin: 07/03/24 11:03 Dose: 1 mg Gabapentin (Gabapentin 300 Mg Cap) 600 mg PO TID [facility] Last Admin: 07/03/24 08:38 Dose: 600 mg Hydromorphone HCl (Hydromorphone 0.5 Mg/0.5 Ml Syringe) 0.5 mg IVP Q3HR PRN PRN Reason: Pain Last Admin: 07/03/24 12:43 Dose: 0.5 mg Hydromorphone HCl (Hydromorphone 0.5 Mg/0.5 Ml Syringe) 0.5 mg IVP Q5M PRN PRN Reason: Phase 1 or 2 - Pain Control Stop: 07/04/24 19:34 Last Admin: 07/02/24 19:39 Dose: 0.5 mg Hydromorphone HCl (Hydromorphone 0.5 Mg/0.5 Ml Syringe) 0.5 mg IVP Q5M PRN PRN Reason: Phase 1 or 2 - Pain Control Stop: 07/03/24 23:00 Lactated Ringer's (Lactated Ringers) 1,000 mls @ 20 mls/hr IV .Q24H [facility] Last Admin: 07/02/24 21:50 Dose: Not Given Lactated Ringer's (Lactated Ringers) 1,000 mls @ 20 mls/hr IV .Q24H [facility] Last Admin: 07/02/24 21:50 Dose: Not Given Insulin Aspart (Insulin Aspart (Novolog) 100 Unit/Ml Vial) 0 unit SQ ACHS [facility]; Protocol Last Admin: 07/03/24 12:59 Dose: Not Given Ipratropium Circle (Ipratropium 0.5 Mg/2.5 Ml Nebu) 0.5 mg INHALATION RT-QID [facility] Last Admin: 07/03/24 12:47 Dose: 0.5 mg Latanoprost (Latanoprost 0.005% Ophth Drops 2.5 Ml Btl) 1 drops BOTH EYES HS S Last Admin: 07/02/24 21:59 Dose: 1 drops Loratadine (Loratadine 10 Mg Tab) 5 mg PO BID@0600,1800 [facility] Last Admin: 07/03/24 06:07 Dose: 5 mg Magnesium Hydroxide (Magnesium Hydroxide 2,400 Mg/30 Ml Cup) 2,400 mg PO DAILY PRN PRN Reason: Constipation Stop: 07/25/24 12:10 Magnesium Oxide (Magnesium Oxide 400 Mg Tab) 400 mg PO DAILY [facility] Last Admin: 07/03/24 08:37 Dose: 400 mg Metoprolol Tartrate (Metoprolol Tartrate 50 Mg Tab) 50 mg PO BID@0600,1800 [facility] Last Admin: 07/03/24 06:07 Dose: 50 mg Montelukast Sodium (Montelukast 10 Mg Tab) 10 mg PO DAILY@1200 [facility] Last Admin: 07/03/24 11:03 Dose: 10 mg Pantoprazole Sodium (Pantoprazole 40 Mg Tablet) 40 mg PO BID@0600,1800 [facility] Last Admin: 07/03/24 06:07 Dose: 40 mg Ropinirole HCl (Ropinirole Hcl 4 Mg Tablet) 4 mg PO HS [facility] Last Admin: 07/02/24 21:58 Dose: 4 mg Senna/Docusate Sodium (Sennosides-Docusate Sodium 1 Each Tab) 2 each PO DAILY [facility] Stop: 07/26/24 08:59 Last Admin: 07/03/24 08:39 Dose: 2 each Sodium Biphosphate/Sodium Phosphate (Na Phos,M-B/Na Phos,Di-Ba 133 Ml Enema) 133 ml RECTAL DAILY PRN PRN Reason: Constipation Stop: 07/25/24 12:10 Spironolactone (Spironolactone 25 Mg Tab) 25 mg PO DAILY [facility] Last Admin: 07/03/24 08:38 Dose: 25 mg Tamsulosin HCl (Tamsulosin 0.4 Mg Cap.Er.24h) 0.4 mg PO DAILY@1200 [facility] Last Admin: 07/03/24 11:03 Dose: 0.4 mg Past medical history to include: COPD, fibromyalgia, hypertension, osteoarthritis, chronic pancreatitis from alcoholism, peripheral neuropathy, varicose pains, restless leg syndrome, BPH with surgery, Alvarenga's esophagus, chronic low back pain from osteoarthritis, alcohol use disorder with cirrhosis, atrial fibrillation with ablation-went back into atrial fibrillation Social history: lives with his sister Ewelina. Smoked for close to 42 years. Talked 1 month ago.. Drinking alcohol for years. Stopped February 2022 Physical examination: VITAL SIGNS: Afebrile, 93, 16, 130 x 64, 93% on 3 L GENERAL: Up in a chair comfortable few scattered scratch de la cruz. EYES: Pupils equal. Conjunctiva normal. HEENT: External appearance of nose and ears normal, oral cavity grossly normal. NECK: JVD raised; masses not palpable. HEART: Heart sounds irregular; edema. LUNGS: Respiratory rate increased l; decreased breath sounds ABDOMEN: Soft, , nontender, liver spleen not palpable, no masses palpable. divarification of recti . Cole catheter- PSYCH: Alert and oriented x3; mood and affect anxiousl. MUSCULOSKELETAL:No Clubbing/cyanosis;muscles-grossly intact. evidence of OA. Dressing over the incision site DERMATOLOGICAL: Several scattered areas of scratch de la cruz, of different duration. INVESTIGATIONS, reviewed in the clinical context: July 03: Vital 7.8 hemoglobin 10.1 platelets 278 potassium 4.8 creatinine 0.71 July 02: White count 6 hemoglobin 9.5 platelets 248 potassium 4.5 creatinine 0.7 June 23, 2024: White count 8.9 hemoglobin 11.8 platelets 254 potassium 3.3 creatinine 1.04 albumin 3 Assessment and plan: -L4 S1 spondylosis with stenosis radiculopathy, neurogenic claudication lower extremity weakness. Patient is undergone L4-L5 laminal foraminotomy for neural decompression Dr. Gabriel Yu on June 25 -Localized seroma at the operative site. Possibly causing increasing pain on the left side with radiculopathy going down the back of the left leg. Local intervention by Dr. Yu today July 02. -COPD in a previous smoker r Jacqui, -Paroxysmal atrial flutter fibrillation a prior history of ablation cardioversion after that.: Telemetry Eliquis, resumed by surgery-. Lopressor 50 p.o. twice daily -chronic congestive heart failure that from systolic and diastolic dysfunction EF 40 % Aldactone - chronic pancreatitis from alcoholism: -Alcohol-induced cirrhosis: Aldactone. -Chronic fibromyalgia Flexeril 10 mg 3 times a day -Diabetes mellitus type 2 on oral hypoglycemic Jardiance Follow Accu-Cheks with sliding scale -Essential hypertension, Lopressor 50 mg twice daily -Primary osteoarthritis, multiple joints bilaterally Pain medications as needed -Alcoholic peripheral neuropathy -restless leg syndrome Requip 4 mg daily at bedtime -Alvarenga's esophagus Protonix 40 mg a day -Full code. Discussed with patient. Continue current medication treatment plan. Ordered K- pad for the left thigh. Past Medical History Past Medical History: Atrial Fibrillation, Coronary Artery Disease (CAD), COPD, Diabetes Mellitus, Eye Disorder, Fibromyalgia, GERD/Reflux, Hyperlipidemia, Hypertension, Myocardial Infarction (CA), Musculoskeletal Disorder, Osteoarthritis (OA), Prostate Disorder, Vascular Disorder Additional Past Medical History / Comment(s): Chronic cough, hx pancreatitis, bilateral glaucoma, neuropathy bilateral feet, poor circulation to legs, varicose veins, RLS, hx BPH, colitis, gastritis, Alvarenga's esophagus, hx Shingles in 2013 with joint pain since, chronic low back, bilateral buttock and leg pain, DDD. Last Myocardial Infarction Date:: 09/02/16 History of Any Multi-Drug Resistant Organisms: None Reported Past Surgical History: Appendectomy, Cardiac Ablation, Heart Catheterization, Joint Replacement, Orthopedic Surgery, Prostate Surgery Additional Past Surgical History / Comment(s): Right knee arthroscopy, right knee replacement, EGD, colonoscopy, TURP, cardioversion. Past Anesthesia/Blood Transfusion Reactions: No Reported Reaction Additional Past Anesthesia/Blood Transfusion Reaction / Comm: No hx blood transfusion. Smoking Status: Former smoker
[2024-07-03 16:15] LABS: Glucose,Whole Blood 220 mg/dL (70-110)
[2024-07-03 19:26] LABS: Glucose,Whole Blood 244 mg/dL (70-110)
[2024-07-04 06:21] LABS: Glucose,Whole Blood 181 mg/dL (70-110)
--- NOTE | 2024-07-04 10:48 | P.PN ---
Subjective Progress Note Date: 07/04/24 Principal diagnosis: 1. L4-S1 spondylosis with stenosis and radiculopathy 2. Neurogenic claudication 3. Low back pain 4. Bilateral lower extremity weakness 5. Complex medical patient Patient seen and examined this morning. Patient is sitting at edge of bed. Patient continues to report radiculopathy with shooting pain into his left buttock and into the posterior left thigh. He does report that his pain is managed on current regimen. Patient was able to reposition himself at the edge of bed without difficulty. Surgical incision to the lumbar spine, dressing is clean dry and intact. Continue to encourage patient to increase his activity as tolerated and use the incentive spirometer 10 times per hour while awake. Patient is cleared for discharge to subacute rehab today. Objective - Vital Signs Vital signs: Vital Signs Temp 97.7 F 07/04/24 01:17 Pulse 79 07/04/24 01:17 Resp 15 07/04/24 01:17 BP 170/82 07/04/24 01:17 Pulse Ox 97 07/04/24 01:17 FiO2 Intake & Output 07/03/24 07/04/24 07/04/24 18:59 06:59 18:59 Intake Total 240 Output Total 900 Balance -660 Intake: Oral 240 Output: Urine 900 Other: Voiding Method Urinal # Voids 2 # Bowel Movements 1 - Exam Physical Examination General: The patient is awake and alert, in no acute distress Skin: Skin is warm and dry with no obvious rashes or lesions. Surgical incision to the lumbar spine, dressing is clean dry and intact. Neck: The neck is supple, there is no tenderness and ROM intact. Cardiovascular: There is a regular rate and rhythm. Respiratory: Respirations are non-labored.. Gastrointestinal: Soft, non-distended, non-tender abdomen. Back: There is no tenderness to palpation in the midline, paralumbar, parathoracic or buttocks region. There is no obvious deformity. Musculoskeletal: ROM limited secondary to pain and stiffness from surgical procedure. Right: shoulder abduction 5/5, elbow flexors 5/5, wrist dorsiflexors 5/5. finger abductor 5/5, contract accountant 5/5, hip flexor 4/5, knee flexor 4/5, ankle dorsiflexor 4/5, ankle plantarflexion 4/5 and extensor hallucis 5/5. Left: shoulder abduction 5/5, elbow flexors 5/5, wrist dorsiflexors 5/5. finger abductor 5/5, contract accountant 5/5, hip flexor 4-/5, knee flexor 4/5, ankle dorsiflexor 5/5, ankle plantarflexion 4/5 and extensor hallucis 5/5. Neurological: CN 2-12 intact. There are no obvious motor or sensory deficits. Movement and coordination equal and intact. Sensory exam to light touch intact C5-T1 and intact from L2-S1. Reflexes 2/4 in bilateral upper and lower extremities. Negative Hoffmans, babinski, and clonus signs. Psychiatric: Cooperative, appropriate mood & affect, normal judgment. - Labs CBC & Chem 7: 07/03/24 05:22 07/03/24 05:22 Labs: Abnormal Lab Results - Last 24 Hours (Table) 07/03/24 07/03/24 07/03/24 Range/Units 11:24 16:12 19:24 POC Glucose (mg/dL) 132 H 220 H 244 H (70-110) mg/dL 07/04/24 Range/Units 06:19 POC Glucose (mg/dL) 181 H (70-110) mg/dL Assessment and Plan Assessment: Post op day 9: L4-L5, L5-S1 laminoforaminotomy and neural decompression, Post op Day 2: Revision L4-S1 decompression Left lower extremity radiculopathy Plan: -Appreciate solutions delivery consultant and team management. -Activity: Ambulate QID, OOB all meals, up and about, limit lifting bending twisting to less than 5 lbs. Use walker or cane if needed for stability. -Daily PT/OT, increase ambulation strength and balance. -Pain control: Adequate at this time -Meds: reviewed -GI ppx: senna, Miralax -DVT PPX: Eliquis -Hygiene: Maintain incision clean and dry. May change dressing as needed, please document in notes if performed. Meticulous cleaning after BMs away from the incision site -Encourage IS 10x/hr -Dispo: Patient is cleared for discharge to subacute rehab. *I reviewed and discussed this case with my attending Dr. Yu, whom has reviewed this chart and films and is in agreement with assessment and plan of care as outlined above. I have personally seen and examined the patient, performed the documentation and the assessment and plan as written. Number of minutes spent on the visit: 20m.
--- NOTE | 2024-07-04 10:54 | P.DS ---
Providers Date of admission: 07/01/24 12:27 Expected date of discharge: 07/04/24 Attending physician: Gabriel Yu DO Consults: 06/25/24 12:11 Consult Physician Routine Consulting Provider: Jamal Tamayo Consult Reason/Comments: medical management Do you want consulting provider notified?: Yes 06/26/24 06:00 Consult Physician Routine Consulting Provider: [facility] Consult Reason/Comments: VTACH run Do you want consulting provider notified?: Yes, Notify in am Primary care physician: [facility] Course: Hospital Course: The patient was evaluated preoperatively and found to have the diagnosis of lumbar spondylosis with stenosis. They underwent appropriate preoperative care and were willing to undergo the intended procedure. They underwent a successful revision L4-S1 decompression, were recovered appropriately and sent to the floor. While on the floor they worked with physical therapy, occupational therapy and nursing to enhance their recovery experience. Their pain was well controlled through their stay and they were started on appropriate medications, DVT ppx modalities, activity and dietary needs. Daily labs were monitored cl osely, and transfusions were only used when necessary. Medicine as well as other consulting services have made their input and have helped with our team approach and multidisciplinary care. PT milestones have been met and passed and they have made the recommendation of subacute rehab for this patient and treating providers agree with this care path. The patient will be discharged home with appropriate medications, instructions and follow-up information and in stable condition. Patient Condition at Discharge: Good Plan - Discharge Summary Discharge Rx Participant: No New Discharge Prescriptions: New Gabapentin [Neurontin] 400 mg PO TID #90 cap metroNIDAZOLE [Flagyl] 500 mg PO TID #15 tab HYDROcodone/APAP 10-325MG [[place] 10-325] 1 tab PO Q4HR PRN #40 tab PRN Reason: Pain Sennosides/Docusate Sodium [Senna Plus 8.6-50 mg Softgel] 1 each PO DAILY PRN #20 capsule PRN Reason: Constipation Continue Montelukast [Singulair] 10 mg PO DAILY@1200 Tamsulosin [Flomax] 0.4 mg PO DAILY@1200 Cyclobenzaprine [Flexeril] 10 mg PO TID@0600,1200,1800 Empagliflozin [Jardiance] 10 mg PO DAILY@1200 Omeprazole [PriLOSEC] 20 mg PO BID@0600,1800 allopurinoL [Zyloprim] 300 mg PO DAILY@0600 Folic Acid 1 mg PO DAILY@1200 Metoprolol Tartrate [Lopressor] 50 mg PO BID@0600,1800 Loratadine [Claritin] 5 mg PO BID@0600,1800 rOPINIRole HCL [Requip] 4 mg PO HS Apixaban [Eliquis] 5 mg PO BID@0600,1800 ARIPiprazole [Abilify] 5 mg PO DAILY@0600 Latanoprost [Latanoprost 0.005%] 1 drop BOTH EYES HS Atorvastatin [Lipitor] 40 mg PO HS@1800 Spironolactone [Aldactone] 25 mg PO DAILY #30 tab Fluticasone/Umeclidin/Vilanter [Trelegy Ellipta 100-62.5-25] 1 inhalation INHALATION QAM Discharge Medication List Montelukast [Singulair] 10 mg PO DAILY@1200 01/12/18 [History] Tamsulosin [Flomax] 0.4 mg PO DAILY@1200 11/08/21 [History] rOPINIRole HCL [Requip] 4 mg PO HS 11/08/21 [History] Cyclobenzaprine [Flexeril] 10 mg PO TID@0600,1200,1800 11/24/21 [History] Empagliflozin [Jardiance] 10 mg PO DAILY@1200 04/11/22 [History] Apixaban [Eliquis] 5 mg PO BID@0600,1800 05/13/22 [History] Omeprazole [PriLOSEC] 20 mg PO BID@0600,1800 06/27/23 [History] ARIPiprazole [Abilify] 5 mg PO DAILY@0600 07/27/23 [History] Latanoprost [Latanoprost 0.005%] 1 drop BOTH EYES HS 07/27/23 [History] Folic Acid 1 mg PO DAILY@1200 11/23/23 [History] Loratadine [Claritin] 5 mg PO BID@0600,1800 11/23/23 [History] Metoprolol Tartrate [Lopressor] 50 mg PO BID@0600,1800 11/23/23 [History] allopurinoL [Zyloprim] 300 mg PO DAILY@0600 11/23/23 [History] Atorvastatin [Lipitor] 40 mg PO HS@1800 01/20/24 [History] Spironolactone [Aldactone] 25 mg PO DAILY #30 tab 01/26/24 [Rx] Fluticasone/Umeclidin/Vilanter [Trelegy Ellipta 100-62.5-25] 1 inhalation INHALATION QAM 06/19/24 [History] HYDROcodone/APAP 10-325MG [[place] 10-325] 1 tab PO Q4HR PRN #40 tab 07/01/24 [Rx] Sennosides/Docusate Sodium [Senna Plus 8.6-50 mg Softgel] 1 each PO DAILY PRN #20 capsule 07/01/24 [Rx] metroNIDAZOLE [Flagyl] 500 mg PO TID #15 tab 07/01/24 [Rx] Gabapentin [Neurontin] 400 mg PO TID #90 cap 07/04/24 [Rx] Follow up Appointment(s)/Referral(s): [facility], [NON-STAFF] - As Needed Gabriel Yu DO [Doctor of Osteopathic Medicine] - 07/10/24 10:45 am Hemal Avila MD [STAFF PHYSICIAN] - 2 Weeks Activity/Diet/Wound Care/Special Instructions: Spine Discharge and Recovery Instructions Date of Surgery: 06/25/2024 Diagnosis: Lumbar spondylosis with with stenosis Procedure: L4-S1 Laminoforaminotomy Medications: See medication list All medication refills should be obtained through your primary care doctor or your clinic spine surgeon. Please discuss prescription refills at your follow up appointment. Do not call the hospital for medication refills. Activity: Encourage ambulation with assist of walker, Up and about 6-8x daily PT/OT daily work on balance, strength and mobility Up in chair with all meals Shower daily Brace: Use brace when up and about, do not wear in bed or shower Dressing: Leave your dressing in place for a total of 3 days post operatively. Then you may remove your dressing and leave open to air. Keep the area clean and if not able to keep area clean, then cover with sterile gauze and tape. Showering: You may shower 3 days after your procedure allowing soap and water to run over incision. Do not scrub. Do not soak. Blot dry. Follow up: Please confirm a follow up appointment with your surgeon 2 weeks post operatively. Please make an appointment to follow up with your PCP in 1-2 weeks after surgery for evaluation '3 phase, 3-week plan' POST OP WEEKS 1-3 1. Lifting/carrying/pushing/pulling limited to less than 5 pounds. 2. Do not sit for longer than 15 minutes at one time. Get up and walk around. Prolonged sitting is NOT advised. If you lay down, see if you can tolerate laying down on you front (belly side) 3. Walk for periods of 15 minutes = 1 mile but no longer; do it multiple times times each day. 4. Ice your low back after activity. POST OP WEEKS 3-6 1. Lifting limited to less than 20 pounds. 2. Do not sit for longer than 30 minutes at a time. Frequently change positions. Use a sit-to stand workstation or take frequent breaks from sitting if you have returned to work. 3. Walk for 30 minutes each day. If possible, do these three or more times a day POST OP WEEKS 6+ At your 6-week appointment we will give you a physical therapy referral to focus on a core stabilization and strengthening program. You should also work on leg & buttock strengthening, hamstring & quadriceps stretching, and continue a low impact aerobic activity program such as swimming, walking, or riding a stationary bicycle. During the initial 6 weeks after your surgery, you are at the highest risk of re-injuring your spine. You should generally avoid BLT's (bending, lifting and twisting combination motions) and follow the above guidelines to reduce the chance of reinjury. You can anticipate post op appointments in our office at approximately 3 weeks and 6 weeks after your surgery. INCISION CARE: If your incision is not draining you do NOT need to cover it with a dressing. Keep your incision clean, dry and intact. In most cases, we apply skin glue, aly or sutures to the incision at the time of surgery. This will be like a crust or have the appearance of a scab and will fall off in time on its own. The stitches or aly need to be removed at 3 weeks post op appointment. You may begin to shower 3 days after surgery (this allows the glue to jimenez well). However, please avoid scrubbing the incision site or peeling off any of the skin glue. This will ensure optimal healing of your incision. Also, during this time avoid soaking the incision area in water - this includes swimming pools, hot tubs or baths. No ointments, lotions or oils on the incision until your surgeon allows. Leave aly, sutures or glue in place. Neurological dysfunction that comes on suddenly can also be a sign of a stroke. Below some common symptoms of a stroke are listed: B - balance difficulty such as sudden onset walking or leaning to one side - NEW E - eye problem such as sudden double vision or trouble seeing on one side - NEW F - Facial weakness or numbness on one side - NEW A - Arm or leg weakness or numbness on one side - NEW S - Slurred speech or difficulty with word finding - NEW T - Time is BRAIN! Call 911 as soon as you recognize these symptoms Diet: Consume a regular diet rich in vegetables and lean protein such as chicken or fish. You should consume in a ratio of approximately 20% fats|40% carbohydrates|40%protein. Vegetables, sweet potatoes, brown rice or quinoa are examples of good carbohydrates. Chips, white bread, cookies and sweets/sugar are examples of bad carbohydrates. Limit your bad carbs, go wild with good carbs. "Life's Simple 7" Guidelines as per [place] [employer] These will help you reclaim your life after surgery and spiral winding machine helper in your recovery, keeping in mind your restrictions. (1) Get Active. Physical activity can help people lose weight, control high blood pressure and cholesterol, feel emotionally better, and sleep better. (2) Control Cholesterol. Avoid a diet high in saturated fat, trans fat, & cholesterol. Limit whole milk & cream, ice cream, butter, egg yolks, processed meats (like sausage and hot dogs), and fatty meats. Choose healthy foods that are low in saturated fat, trans fat and cholesterol which include: Fruits and vegetables, fiber rich grain products (like whole grain pasta and brown rice), lean meat such as chicken, fish, nuts, seeds, and legumes. (3) Eat Better. Eat small portions. Shop at the grocery with a list and do not stray from it. Tips for a healthy diet include: Limit sodium intake to less than 1500mg daily, avoid prepackaged, processed, and fast foods, choose a diet rich in fruits, vegetables, and whole grain, high fiber foods, and limit saturated & cholesterol in your diet. (4) Manage Blood Pressure. If you have high blood pressure, you should have a cuff at home so that you can check your blood pressure regularly. Be sure you have a good cuff. An arm one is generally better than a wrist one. Bring the cuff to a doctor's appointment to validate that the measurements that your cuff are taking are accurate. Take your blood pressure twice daily when you are sitting down and relaxing. Record the numbers in a log and bring this log with you to your doctors' appointments. (5) Lose Weight if your BMI is above 25. A healthy BMI is between 19-25. To calculate Your BMI, you may use a Standard BMI Calculator on the NIH BMI website: <www.nhlbi.nih.gov/guidelines/obesity/BMI/bmicalc.htm>. Weigh oneself daily. If you are overweight, set a goal to lose weight. A pound a week loss if needed is a good target. (6) Reduce Blood Sugar. Limit foods and liquids with "added sugars." (Added sugars include sucrose, fructose, glucose, maltose, dextrose, high fructose corn syrup, corn syrup, concentrated fruit juice and honey). (7) Stop Smoking. If you smoke, quitting smoking is one of the best things that you can do for your health. Smoking increases your risk of heart attack, stroke, and peripheral vascular disease, which is a build-up of plaque in your arteries. Please discard all the cigarettes and lighters in your house. Have a plan for what you will do when you have the urge to smoke. Direct and second- hand smoke shortens your life as well as the lives of your family, friends and others around you. For your health and the health of those around you, please co nsider quitting! Proper Bending Body Mechanics: Maintain a wide stance with one foot slightly in front of the other. Keep your back straight. Bend utilizing the strength in your hips and knees. Do not bend at the waist. Maintain the lifted object at your waist-level close to your body. Avoid lifting weight that causes immediately pain or pain anywhere in the body afterwards. Smoking/Nicotine If there was ever one thing that you could do to increase your overall health, decrease your risk of cardiovascular problems by about 39% the second you make the choice, it is to STOP SMOKING. Your body's most instant gratification is the second you stop smoking. We have all heard the studies, read the articles but it is true, smoking is extremely bad for your overall health, and moreover it is detrimental to your bone health. Nicotine, IN ANY FORM, kills bone cells, prevents your body from healing fractures, and significantly prolongs healing after surgery. In spine surgery specifically, it increases your risk of not healing your bones to create a fusion and increases your risk of having a revision surgery due to this up to 60%. I know it is hard. I know it feels impossible. But there are ways. Take control of your life. We are here to help you through it. And when you are ready, ask us and we can direct you to help if you desire. Use the START Plan to Quit Smoking (please visit the Helpguide.org website listed below for more information): S = Set a quit date. Choose a date within the next 2 weeks, so you have enough time to prepare without losing your motivation to quit. If you mainly smoke at work, quit on the weekend, so you have a few days to adjust to the change. T = Tell family, friends, and co-workers that you plan to quit. Let your friends and family in on your plan to quit smoking and tell them you need their support and encouragement to stop. Look for a quit ethan who wants to stop smoking as well. You can help each other get through the rough times. A = Anticipate and plan for the challenges you'll face while quitting. Most people who begin smoking again do so within the first 3 months. You can help yourself make it through by preparing ahead for common challenges, such as nicotine withdrawal and cigarette cravings. R = Remove cigarettes and other tobacco products from your home, car, and work. Throw away all your cigarettes (no emergency pack!), lighters, ashtrays, and matches. Wash your clothes and freshen up anything that smells like smoke. Shampoo your car, clean your drapes and carpet, and steam your furniture. T = Talk to your doctor about getting help to quit. Your doctor can prescribe medication to help with withdrawal and suggest other alternatives. If you can't see a doctor, you can get many products over the counter at your local pharmacy or grocery store, including the nicotine patch, nicotine lozenges, and nicotine gum. Resources for Quitting Smoking: <https://www.[place].gov/documents/[facility]/Quit_Tobacco_Resources_for_patients_313 480_7.pdf> Supplementation: Take recommended dosages of Vitamin D and Calcium to help fortify your bones and help them to heal. See your health maintenance packet for dosages and recommended levels. DVT/VTE prophylaxis: You will be given compression stockings from the hospital. Wear these daily for the first two weeks after surgery. You may take them off at night. You may be prescribed a medication to help thin your blood. Take this as directed. If you are not prescribed this medication, early and frequent ambulation has been shown to be the best prophylaxis to deep vein thrombosis and sequelae related to this event. Discharge Disposition: TRANSFER TO SNF/ECF
[2024-07-04 11:27] LABS: Glucose,Whole Blood 179 mg/dL (70-110)
[2024-07-04 13:03] VITALS: BP 116/63; RESP 16; TEMP 98.3
--- NOTE | 2024-07-04 15:25 | P.PN ---
Subjective Progress Note Date: 07/04/[address] Chavez. Chronic stable medical conditions include COPD, fibromyalgia, hypertension, osteoarthritis, chronic pancreatitis from alcoholism, peripheral neuropathy varicose veins, restless leg syndrome, BPH surgery, Alvarenga's esophagus and chronic low back pain from osteoarthritis. Al cohol cirrhosis. . cardioversion done for atrial fibrillation in March 2022. Chronic multiple wounds on the upper and lower extremity from scratching. Patient's had chronic low back pain. Has been worsening. Did radiate down both the legs. Marcie. Able to walk about 20 feet. Baseline urine and bowels are working fine. Today underwent lumbar surgery. Postprocedure having pain at the operative site. No nausea vomiting. Up in the bed. June 26: Physical therapy helped the patient sit up in a chair. Eating well. Pain present. Cole catheter. June 27: Up in bed. Pain better controlled. Eating fair. I discussed with the patient about discontinue Cole concerned about infection. And use a urine bottle. Patient not very happy about that. Did reinforce the concern for infe ction. Patient did walk 5 to 6 feet with physical therapy. 06/28/2024 Patient was seen and examined today. No issues overnight. No further episodes of V. tach, cardiology following, recommended to continue beta-lila. Per orthopedic plan to discharge to subacute rehab. 06/29 Patient complaining of some left leg pain and low back pain States he has good bowel movement No other new complaints 06/30 Patient still complaining from pain in the lower back and the left lower extremity. Is not in distress though. Hemodynamically stable Sugar controlled. Heart rate is up again and his sotalol and Coreg were resumed. Echocardiogram showing ejection fraction of 50 to 55% with moderate to severe aortic regurgitation July 02, 2024: Saw the patient this afternoon. Has been having creasing pain on the left side going down to the back of the left thigh.CT scan lumbar spine without contrast done yesterday showed fluid collection in the surgical bed with few foci of gas. Patient's had no fever no white count. This evening I spoke to Dr. Yu. He only had what appeared to be seroma. And he drained the same. Not infected appearing. Hence given no white count no fever and locally look like seroma no indication for antibiotics. Otherwise patient was n.p.o. at this morning. Otherwise eating well. Having bowel movements. July 03, 2024: Up in the chair. Still having some pain at the back of the left thigh. K-pad ordered. Eating well. Activity and pain management per surgical team. 07/04/2024 Assumed care of this patient today from Dr. Liu. He is eval today sitting up in the chair. He has no complaints of shortness of breath or chest pain he is tolerating diet bowels are moving. He does continue to report 10 out of 10 pain to his lumbar with radiation down behind the left leg he states that there feels like there is a lump there and feels like he has having a tendon issue. He was seen by orthopedics recommended to follow-up with somebody in their office this on discharge. Has been accepted at [facility] and authorization has been received he will be discharged today. Will continue all same home medications. Review of Systems Constitutional: Denied any fatigue denied any fever. Cardio vascular: denied any chest pain, palpitations Gastrointestinal: denied any nausea, vomiting, diarrhea Pulmonary: Denied any shortness of breath cough Neurologic denied any new focal deficits All inpatient medications were reviewed and appropriate changes in these medications as dictated in the interval history and assessment and plan. PHYSICAL EXAMINATION: GENERAL: The patient is alert and oriented x3, not in any acute distress. Well developed, well nourished. HEENT: Pupils are round and equally reacting to light. EOMI. No scleral icterus. No conjunctival pallor. Normocephalic, atraumatic. No pharyngeal erythema. No thyromegaly. CARDIOVASCULAR: S1 and S2 present. No murmurs, rubs, or gallops. PULMONARY: Chest is clear to auscultation, no wheezing or crackles. ABDOMEN: Soft, nontender, nondistended, normoactive bowel sounds. No palpable organomegaly. MUSCULOSKELETAL: No joint swelling or deformity. Surgical dressing intact. EXTREMITIES: No cyanosis, clubbing, or pedal edema. NEUROLOGICAL: Gross neurological examination did not reveal any focal deficits. SKIN: No rashes. Assessment and plan: -L4 S1 spondylosis with stenosis radiculopathy, neurogenic claudication lower extremity weakness. Patient is undergone L4-L5 laminal foraminotomy for neural decompression Dr. Gabriel Yu on June 25 -Localized seroma at the operative site. Possibly causing increasing pain on t he left side with radiculopathy going down the back of the left leg. Local intervention by Dr. Yu today July 02. -COPD in a previous smoker r Trelegy, -Paroxysmal atrial flutter fibrillation a prior history of ablation cardioversion after that.: Telemetry Eliquis, resumed by surgery-. Lopressor 50 p.o. twice daily -chronic congestive heart failure that from systolic and diastolic dysfunction EF 40 % Aldactone - chronic pancreatitis from alcoholism: -Alcohol-induced cirrhosis: Aldactone. -Chronic fibromyalgia Flexeril 10 mg 3 times a day -Diabetes mellitus type 2 on oral hypoglycemic Jardiance Follow Accu-Cheks with sliding scale -Essential hypertension, Lopressor 50 mg twice daily -Primary osteoarthritis, multiple joints bilaterally Pain medications as needed -Alcoholic peripheral neuropathy -restless leg syndrome Requip 4 mg daily at bedtime -Alvarenga's esophagus Protonix 40 mg a day -Full code. The patient is stable for discharge to [facility]. The impression and plan of care has been dictated by Odilia Chance, Nurse Practitioner as directed. Dr. Corrie MD I have performed a history and physical examination and medical decision making of this patient, discussed the same with the dictator, and agree with the dictators assessment and plan as written, documented as a scribe. Based on total visit time, I have performed more than 50% of this visit. Objective - Vital Signs Vital signs: Vital Signs Temp 98.3 F 07/04/24 12:24 Pulse 76 07/04/24 12:24 Resp 16 07/04/24 12:24 BP 116/63 07/04/24 12:24 Pulse Ox 97 07/04/24 12:24 FiO2 Intake & Output 07/03/24 07/04/24 07/04/24 18:59 06:59 18:59 Intake Total 240 Output Total 900 Balance -660 Intake: Oral 240 Output: Urine 900 Other: Voiding Method Urinal Urinal # Voids 2 2 # Bowel Movements 1 - Labs CBC & Chem 7: 07/03/24 05:22 07/03/24 05:22 Labs: Abnormal Lab Results - Last 24 Hours (Table) 07/03/24 07/03/24 07/04/24 Range/Units 16:12 19:24 06:19 POC Glucose (mg/dL) 220 H 244 H 181 H (70-110) mg/dL 07/04/24 Range/Units 11:24 POC Glucose (mg/dL) 179 H (70-110) mg/dL Assessment and Plan Time with Patient: Less than 30
[2024-07-04 15:51] VITALS: PULSE 78
[2024-07-04] MEDS ORDERED: APIXABAN 5 MG TAB PO SCH (18:00)
== END 2024-07-04 15:55 | DRG 320 ==
LOC: OR 05:32 → 4SSUR 09:35 → OR 06-26 12:58 → OBSVTOIN 07-01 12:27
PROVIDERS: ADMIT Orthopaedic Surgery; ATTEND Orthopaedic Surgery
PROC: 01NB0ZZ Release Lumbar Nerve, Open Approach (ICD-10-PCS; principal; 2024-06-25 07:30)
PROC: 01NR0ZZ Release Sacral Nerve, Open Approach (ICD-10-PCS; principal; 2024-06-25 07:30)
PROC: 01NB0ZZ Release Lumbar Nerve, Open Approach (ICD-10-PCS; 2024-07-02)
PROC: 01NR0ZZ Release Sacral Nerve, Open Approach (ICD-10-PCS; 2024-07-02)
DX: M47.27 Other spondylosis with radiculopathy, lumbosacral region (principal); M96.842 Postprocedural seroma of a musculoskeletal structure following a musculoskeletal system procedure; M51.16 Intervertebral disc disorders with radiculopathy, lumbar region; G62.1 Alcoholic polyneuropathy; K70.30 Alcoholic cirrhosis of liver without ascites; I47.20 Ventricular tachycardia, unspecified; K86.0 Alcohol-induced chronic pancreatitis; E11.42 Type 2 diabetes mellitus with diabetic polyneuropathy; E11.51 Type 2 diabetes mellitus with diabetic peripheral angiopathy without gangrene; I11.0 Hypertensive heart disease with heart failure; I50.42 Chronic combined systolic (congestive) and diastolic (congestive) heart failure; I48.0 Paroxysmal atrial fibrillation; F10.20 Alcohol dependence, uncomplicated; J44.9 Chronic obstructive pulmonary disease, unspecified; I71.40 Abdominal aortic aneurysm, without rupture, unspecified; I08.3 Combined rheumatic disorders of mitral, aortic and tricuspid valves; E83.42 Hypomagnesemia; I95.1 Orthostatic hypotension; E78.5 Hyperlipidemia, unspecified; G25.81 Restless legs syndrome; M15.9 Polyosteoarthritis, unspecified; M47.26 Other spondylosis with radiculopathy, lumbar region; M48.062 Spinal stenosis, lumbar region with neurogenic claudication; M48.07 Spinal stenosis, lumbosacral region; M62.562 Muscle wasting and atrophy, not elsewhere classified, left lower leg; M62.561 Muscle wasting and atrophy, not elsewhere classified, right lower leg; H40.9 Unspecified glaucoma; I25.10 Atherosclerotic heart disease of native coronary artery without angina pectoris; M79.7 Fibromyalgia; K21.9 Gastro-esophageal reflux disease without esophagitis; N40.0 Benign prostatic hyperplasia without lower urinary tract symptoms; K22.70 Barrett's esophagus without dysplasia; I25.2 Old myocardial infarction; R26.2 Difficulty in walking, not elsewhere classified; I83.90 Asymptomatic varicose veins of unspecified lower extremity; J30.9 Allergic rhinitis, unspecified; Z96.651 Presence of right artificial knee joint; Z87.891 Personal history of nicotine dependence; Z79.01 Long term (current) use of anticoagulants; Z79.84 Long term (current) use of oral hypoglycemic drugs; Z79.51 Long term (current) use of inhaled steroids; Z79.899 Other long term (current) drug therapy; Z88.0 Allergy status to penicillin
CPT/HCPCS: 72100; 72131; 80053; 83735; 85025; 93306; 94640; 94760

== ENCOUNTER 2024-09-07 16:08 | Emergency (ER) | payer OTHER ==
--- NOTE | 2024-09-07 16:14 | ED ---
Back Pain HPI - General Stated Complaint: back pain Time Seen by Provider: 09/07/24 16:11 Source: RN notes reviewed, old records reviewed Mode of arrival: ambulatory Limitations: no limitations - History of Present Illness Initial Comments: This is a 64-year-old male to ER for evaluation of back pain acute on chronic back pain here for pain control today. No new injuries he also does complain of right foot pain with a developing ulcer on the heel of his right foot MD Complaint: back pain, back injury, other (History of back surgery) -: days(s) Similar Symptoms Previously: Yes Place: home Radiation: none Severity: severe Severity scale (1-10): 8 Quality: sharp Consistency: intermittent Improves With: none Worsens With: movement, sitting upright, walking Context: unknown Associated Symptoms: denies other symptoms - Related Data Home Medications Medication Instructions Recorded Confirmed Montelukast [Singulair] 10 mg PO DAILY@1200 01/12/18 06/19/24 Tamsulosin [Flomax] 0.4 mg PO DAILY@1200 11/08/21 06/19/24 rOPINIRole HCL [Requip] 4 mg PO HS 11/08/21 06/19/24 Cyclobenzaprine [Flexeril] 10 mg PO TID@0600,1200,1800 11/24/21 06/19/24 Empagliflozin [Jardiance] 10 mg PO DAILY@1200 04/11/22 06/19/24 Apixaban [Eliquis] 5 mg PO BID@0600,1800 05/13/22 06/19/24 Omeprazole [PriLOSEC] 20 mg PO BID@0600,1800 06/27/23 06/19/24 ARIPiprazole [Abilify] 5 mg PO DAILY@0600 07/27/23 06/19/24 Latanoprost [Latanoprost 0.005%] 1 drop BOTH EYES 07/27/23 06/19/24 Folic Acid 1 mg PO DAILY@1200 11/23/23 06/19/24 Loratadine [Claritin] 5 mg PO BID@0600,1800 11/23/23 06/19/24 Metoprolol Tartrate [Lopressor] 50 mg PO BID@0600,1800 11/23/23 06/19/24 allopurinoL [Zyloprim] 300 mg PO DAILY@0600 11/23/23 06/19/24 Atorvastatin [Lipitor] 40 mg PO HS@1800 01/20/24 06/19/24 Fluticasone/Umeclidin/Vilanter 1 inhalation INHALATION QAM 06/19/24 06/19/24 [Andredemian Nateta 100-62.5-25] Previous Rx's Medication Instructions Recorded Spironolactone [Aldactone] 25 mg PO DAILY #30 tab 01/26/24 HYDROcodone/APAP 10-325MG [[place] 1 tab PO Q4HR PRN #40 tab 07/01/24 10-325] Sennosides/Docusate Sodium [Senna 1 each PO DAILY PRN #20 capsule 07/01/24 Plus 8.6-50 mg Softgel] metroNIDAZOLE [Flagyl] 500 mg PO TID #15 tab 07/01/24 Gabapentin [Neurontin] 400 mg PO TID #90 cap 07/04/24 oxyCODONE-APAP 10-325MG [Percocet 1 tab PO Q6HR PRN 3 Days #12 tab 09/07/24 10-325 mg] Allergies Allergy/AdvReac Type Severity Reaction Status Date / Time amoxicillin trihydrate AdvReac Rapid Verified 09/07/24 16:15 [From Augmentin] Heart Rate potassium clavulanate AdvReac FELT LIKE Verified 09/07/24 16:15 [From Augmentin] HE WAS GOING TO PASS OUT FAST HEARTBEAT" pregabalin [From Lyrica] AdvReac Leg Verified 09/07/24 16:15 swelling sweet potato AdvReac Rash/Hives Verified 09/07/24 16:15 venlafaxine [From Effexor] AdvReac Confusion Verified 09/07/24 16:15 zucchini (for use with DAM AdvReac Rash/Hives Verified 09/07/24 16:15 only) Review of Systems ROS Statement: Those systems with pertinent positive or pertinent negative responses have been documented in the HPI. ROS Other: All systems not noted in ROS Statement are negative. Past Medical History Past Medical History: Atrial Fibrillation, Coronary Artery Disease (CAD), Heart Failure, COPD, Diabetes Mellitus, Eye Disorder, Fibromyalgia, Hypertension, Myocardial Infarction (LA), Musculoskeletal Disorder, Osteoarthritis (OA), Prostate Disorder, Vascular Disorder Additional Past Medical History / Comment(s): Chronic cough, hx pancreatitis, bilateral glaucoma, neuropathy bilateral feet, poor circulation to legs, varicose veins, RLS, hx BPH, colitis, gastritis, Alvarenga's esophagus, hx Shingles in 2013 with joint pain since, chronic low back pain, DDD. wound to right leg, scabies 06/2023 Last Myocardial Infarction Date:: 09/02/16 History of Any Multi-Drug Resistant Organisms: None Reported Past Surgical History: Appendectomy, Cardiac Ablation, Heart Catheterization, Joint Replacement, Orthopedic Surgery, Prostate Surgery Additional Past Surgical History / Comment(s): Right knee arthroscopy, right knee replacement, EGD, colonoscopy, TURP, cardioversion. Past Anesthesia/Blood Transfusion Reactions: No Reported Reaction Additional Past Anesthesia/Blood Transfusion Reaction / Comment(s): No hx blood transfusion. Smoking Status: Former smoker - Past Family History Father Family Medical History: CVA/TIA, Hypertension Additional Family Medical History / Comment(s): Father at the age of 38yrs from HTN/CVA. He was an alcoholic. Mother Family Medical History: COPD, Diabetes Mellitus Additional Family Medical History / Comment(s): Mother of emphysema at the age of 74 yrs (2003), mom had hx of drinking and smoking. General Exam General appearance: alert, in no apparent distress Head exam: Present: atraumatic, normocephalic, normal inspection Eye exam: Present: normal appearance, PERRL, EOMI. Absent: scleral icterus, conjunctival injection, periorbital swelling ENT exam: Present: normal exam, mucous membranes moist Neck exam: Present: normal inspection. Absent: tenderness, meningismus, lymphadenopathy Respiratory exam: Present: normal lung sounds bilaterally. Absent: respiratory distress, wheezes, rales, rhonchi, stridor Cardiovascular Exam: Present: regular rate, normal rhythm, normal heart sounds. Absent: systolic murmur, diastolic murmur, rubs, gallop, clicks GI/Abdominal exam: Present: soft, normal bowel sounds. Absent: distended, tenderness, guarding, rebound, rigid Extremities exam: Present: normal inspection, full ROM, normal capillary refill. Absent: tenderness, pedal edema, joint swelling, calf tenderness Back exam: Present: normal inspection Neurological exam: Present: alert, oriented X3, CN II-XII intact Psychiatric exam: Present: normal affect, normal mood Skin exam: Present: warm, dry, intact, normal color. Absent: rash Course Vital Signs 09/07/24 16:09 Temperature 98 F Pulse Rate 90 Respiratory 18 Rate Blood Pressure 137/82 O2 Sat by Pulse 98 Oximetry - Reevaluation(s) Reevaluation #1: 09/07/24 16:14 Medical records reviewed Reevaluation #2: 09/07/24 17:53 Patient symptoms improved asking for pain medication Reevaluation #3: 09/07/24 17:53 Patient informed of results questions answered Reevaluation #4: Was pt. sent in by a medical professional or institution (, PA, FLESHING MACHINE OPERATOR, urgent care, hospital, or detention...) When possible be specific @ -no Did you speak to anyone other than the patient for history (EMS, parent, family, police, friend...)? What history was obtained from this source @ -no Did you review nursing and triage notes (agree or disagree)? Why? @ -agree Are old charts reviewed (outside hosp., previous admission, EMS record, old EKG, old radiological studies, urgent care reports/EKG's, detention records)? Report findings @ -yes Differential Diagnosis (chest pain, altered mental status, abdominal pain women, abdominal pain men, vaginal bleeding, weakness, fever, dyspnea, syncope, headache, dizziness, GI bleed, back pain, seizure, CVA, palpatations, mental health, musculoskeletal)? @ -prior EKG interpreted by me (3pts min.). @ -yes X-rays interpreted by me (1pt min.). @ -yes negative for acute disease CT interpreted by me (1pt min.). @ -no U/S interpreted by me (1pt. min.). @ -no What testing was considered but not performed or refused? (CT, X-rays, U/S, labs)? Why? @ -none What meds were considered but not given or refused? Why? @ -none Did you discuss the management of the patient with other professionals (dulce woodruff i.e. ROMULO Alcantar, FLESHING MACHINE OPERATOR, lab, RT, psych nurse, social science professor, auto wheel alignment specialist, teacher, supply officer, nurse case management)? Give summary @ -no Was smoking cessation discussed for >3mins.? @ -no Was critical care preformed (if so, how long)? @ -no Were there social determinants of health that impacted care today? How? (Homelessness, low income, unemployed, alcoholism, drug addiction, transportation, low edu. Level, literacy, decrease access to med. care, [facility], rehab)? @ -none Was there de-escalation of care discussed even if they declined (Discuss DNR or withdrawal of care, Hospice)? DNR status @ -no What co-morbidities impacted this encounter? (DM, HTN, Smoking, COPD, CAD, Cancer, CVA, ARF, Chemo, Hep., AIDS, mental health diagnosis, sleep apnea, morbid obesity)? @ -none Was patient admitted / discharged? Hospital course, mention meds given and route, prescriptions, significant lab abnormalities, going to OR and other pertinent info. @ - Undiagnosed new problem with uncertain prognosis? @ -no Drug Therapy requiring intensive monitoring for toxicity (Heparin, Nitro, Insulin, Cardizem)? @ -no Were any procedures done? @ -no Diagnosis/symptom? @ - Acute, or Chronic, or Acute on Chronic? @ -Acute Uncomplicated (without systemic symptoms) or Complicated (systemic symptoms)? @ -Complicated Side effects of treatment? @ -no Exacerbation, Progression, or Severe Exacerbation? @ -exacerbation Poses a threat to life or bodily function? How? (Chest pain, USA, LA, pneumonia, PE, COPD, DKA, ARF, appy, cholecystitis, CVA, Diverticulitis, Homicidal, Suicidal, threat to staff... and all critical care pts) @ -yes Reevaluation #5: Differential Back Pain: Strain, zoster, cauda equina syndrome, epidural abscess, vertebral osteomyelitis, discitis, fracture, subluxation, disc herniation, DJD, spinal stenosis, dissection, AAA, pancreatitis, peptic ulcer disease, pyelonephritis, kidney stone, this is not meant to be an all-inclusive list. Medical Decision Making - Medical Decision Making 64 male to ER for evaluation of pain patient has persistent pain here in the ER back pain chronic, patient was concerned of right foot ulcer x-rays negative severe pain to the heel. Patient given pain control asking for medication refill can be discharged home - Radiology Data Radiology results: report reviewed (X-ray right foot is negative for acute disease), image reviewed Disposition Clinical Impression: Mechanical back pain, Strain of lumbar region, Lumbar spondylosis, Lumbar radiculopathy, Pain of right heel, Healed ulcer of right foot Disposition: HOME SELF-CARE Condition: Good Instructions (If sedation given, give patient instructions): Acute Low Back Pain (ED) Prescriptions: oxyCODONE-APAP 10-325MG [Percocet 10-325 mg] 1 tab PO Q6HR PRN 3 Days #12 tab PRN Reason: Pain Is patient prescribed a controlled substance at d/c from ED?: No Referrals: Albert Chavez MD [Primary Care Provider] - 1-2 days Time of Disposition: 17:20
[2024-09-07 16:15] VITALS: RESP 18
[2024-09-07] MEDS: dexAMETHasone 2 MG TAB PO STA (16:48)
[2024-09-07] MEDS: HYDROmorphone 1 MG/ML 1 ML SYRINGE IM STA (16:55)
--- NOTE | 2024-09-07 16:59 | XR ---
EXAMINATION TYPE: XR foot complete RT DATE OF EXAM: 09/07/2024 4:49 PM COMPARISON: Previous radiograph 07/27/2023. CLINICAL INDICATION: Male, 64 years old with history of pain; [facility] TECHNIQUE: XR foot complete RT examined in the AP, oblique, and lateral projections. FINDINGS: No acute fracture or dislocation. Osseous structures mildly demineralized. Midfoot degenerative avalos es seen on lateral view. Small ill-defined along the plantar calcaneal surface and near the Achilles tendon insertion site. Vascular calcifications noted. No radiographic foreign body. Degenerative june ges throughout the visualized interphalangeal joints also noted. IMPRESSION: 1. No evidence of acute fracture. 2. Multifocal degeneration changes throughout the joints of the foot. [facility], , 09/07/2024 4:56 PM
[2024-09-07] MEDS: oxyCODONE-APAP 10-325MG 1 EACH TAB PO STA (17:51)
[2024-09-07] MEDS: traMADol 50 MG STARTER PACK 3 TAB BTL PO STA (17:51)
[2024-09-07 18:06] VITALS: BP 133/81; PULSE 78; TEMP 98.2
== END 2024-09-07 18:05 | disposition home or self-care (01) ==
LOC: EC 16:08
DX: S39.012A Strain of muscle, fascia and tendon of lower back, initial encounter (principal); M47.26 Other spondylosis with radiculopathy, lumbar region; L97.519 Non-pressure chronic ulcer of other part of right foot with unspecified severity; M79.671 Pain in right foot; Z87.891 Personal history of nicotine dependence; Z88.0 Allergy status to penicillin; Z88.1 Allergy status to other antibiotic agents; Z88.8 Allergy status to other drugs, medicaments and biological substances; Z91.018 Allergy to other foods
CPT/HCPCS: 73630; 99283; 96372; J1171; J8540

== ENCOUNTER → 2024-09-16 | Outpatient (CLI) | payer OTHER ==
[2024-09-16 13:36] VITALS: BP 131/66; PULSE 63; RESP 14
--- NOTE | 2024-09-16 16:20 | P.PAINPG ---
PQRS Measure Charge Sheet Comment: HISTORY OF PRESENT ILLNESS: A 64 yr old wheelchair bound male as a referral from [facility] presents today w severe and chronic LBP > 1 yr secondary to post L2-L3 laminectomy/ fusion syndrome without myelopathy for evaluation. Pt states pain level is provoked at 6 /10 in intensity, constant, localized in the lumbar spine, predominantly axial, dull in character w occasional shooting pain towards the BL feet. Pain is provoked by ADLs. Pain is alleviated by heat & ice, medications, topical, repositioning and rest . Oswestry axial pain score at 38. PMH: OA, aFib, CAD, CHF, COPD, NIDDM II, Fibromyalgia, HTN, [place] (2017), BPH, PVD, Hx Pancreatitis, Alvarenga's Esophagitis PSH: Appendectomy, Cardiac Ablation, Heart Catheterization, Carioversion, R Knee Replacement, R Knee Arthroscopy, Orthopedic Surgery, TURP, EGD/ Colonoscopy SH: Former tobacco user, Hx ETOH abuse, No illicit drug use FH: Fa- CVA, ETOH abuse. Mo- COPD, DM, ETOH abuse All: See list Meds: See list incl Eliquis, Jardiance, Icy-Hot REVIEW OF ORGAN SYSTEMS: CONSTITUTIONAL: No fevers or chills. No recent weight loss. NEUROLOGICAL: + numbness and tingling along the distal extremities. No seizure disorders or headaches. MUSCULOSKELETAL: + pain PSYCHIATRIC: Denies current depression or suicidal thoughts. Physical Examinations : Constitutional : Cooperative , not in acute distress . Neurologic : Cranial nerve II to XII intact. No focal neurological deficits. Psychiatric : alert & oriented x 3. Matching mood & appropriate affect. Judgment & insight intact. Musculoskeletal : Cervical Spine Motor strength in the deltoid and biceps: Normal right side. Normal Left side Motor strength biceps and the wrist extensors: Normal right side . Normal left side Motor strength in the triceps muscle: Normal right side. Normal left side Deep tendon reflexes: Normal at the biceps. Normal at Brachioradialis. Normal at triceps Vertebral body tenderness to deep palpation over Cervical facet loading test: positive bilaterally Spurling test: positive bilaterally Neck distraction test: positive bilaterally Jay sign: positive bilaterally Thoracic spine Vertebral body TTP T11 Lumbar spine Motor strength lower extremities ,thigh and legs 5/5 Right side , 5/5 Left side Deep tendon reflexes : Normal Knee Jerk. Normal Ankle Jerk Vertebral body tenderness over James Test positive Lumbar facet Loading Test: positive Right / positive Left Range of motion of the lumbar spine Flexion 30 degrees, extension 10 degrees Straight Leg Raise test: Left/ Right positive at degrees Luciana test: positive right / positive left. Severe tenderness over the Sacroiliac joint on the Right / Left sides Gaenslen test: positive bilaterally Seated flexion test: positive bilaterally. Sacral spine : Severe tenderness over the Sacroiliac joint: right side / left side Range of motion: Flexion of the lumbar spine <60 degrees Range of motion: Extension of the lumbar spine <20 degrees Gaenslen's Test positive Luciana test: positive right side / left side Thigh Thrust Test Sacral Thrust Test Imaging: MRI non contrast of thoracolumbar spine from 04/30/24 reviewed Assessment/ Plan : T10-T11 DDD, post L2-L3 laminectomy/ fusion, L3-L4 radiculopathy, L5-S1 facet arthropathy Recommendation of PT x 6 wks M54.14, M54.16. All questions answered. I have spent greater than 30 minutes on patient care today. Dr Crowell was available by phone for the evaluation of this patient. The time was used to review the medical records including relevant urine studies and Prescription history (MAPs), review of the available imaging, evaluation and examination of the patient, coordination of care with the medical staff and if applicable referring physicians, as well as creation of the medical record PQRS Narrative: Smoking Status Current some day smoker Home Medications: Ambulatory Orders Montelukast [Singulair] 10 mg PO DAILY@1200 01/12/18 Tamsulosin [Flomax] 0.4 mg PO DAILY@1200 11/08/21 rOPINIRole HCL [Requip] 4 mg PO 11/08/21 Cyclobenzaprine [Flexeril] 10 mg PO TID@0600,1200,1800 11/24/21 Empagliflozin [Jardiance] 10 mg PO DAILY@1200 04/11/22 Apixaban [Eliquis] 5 mg PO BID@0600,1800 05/13/22 Omeprazole [PriLOSEC] 20 mg PO BID@0600,1800 06/27/23 ARIPiprazole [Abilify] 5 mg PO DAILY@0600 07/27/23 Latanoprost [Latanoprost 0.005%] 1 drop BOTH EYES 07/27/23 Folic Acid 1 mg PO DAILY@1200 11/23/23 Loratadine [Claritin] 5 mg PO BID@0600,1800 11/23/23 Metoprolol Tartrate [Lopressor] 50 mg PO BID@0600,1800 11/23/23 allopurinoL [Zyloprim] 300 mg PO DAILY@0600 11/23/23 Atorvastatin [Lipitor] 40 mg PO HS@1800 01/20/24 Spironolactone [Aldactone] 25 mg PO DAILY #30 tab 01/26/24 Fluticasone/Umeclidin/Vilanter [Treleg[place] Ellipta 100-62.5-25] 1 inhalation INHALATION QAM 06/19/24 HYDROcodone/APAP 10-325MG [[place] 10-325] 1 tab PO Q4HR PRN #40 tab 07/01/24 Sennosides/Docusate Sodium [Senna Plus 8.6-50 mg Softgel] 1 each PO DAILY PRN #20 capsule 07/01/24 metroNIDAZOLE [Flagyl] 500 mg PO TID #15 tab 07/01/24 Gabapentin [Neurontin] 400 mg PO TID #90 cap 07/04/24 oxyCODONE-APAP 10-325MG [Percocet 10-325 mg] 1 tab PO Q6HR PRN 3 Days #12 tab 09/07/24 Controlled Substance Measures - Controlled Substance Measures Is patient prescribed a controlled substance at discharge?: No
== END ==
LOC: PNWHC3 12:50
PROVIDERS: ATTEND Specialist
DX: M54.16 Radiculopathy, lumbar region (principal); M47.817 Spondylosis without myelopathy or radiculopathy, lumbosacral region; M51.34 Other intervertebral disc degeneration, thoracic region; M96.1 Postlaminectomy syndrome, not elsewhere classified; M43.26 Fusion of spine, lumbar region; F17.210 Nicotine dependence, cigarettes, uncomplicated; Z88.1 Allergy status to other antibiotic agents; Z88.0 Allergy status to penicillin; Z88.6 Allergy status to analgesic agent; Z88.8 Allergy status to other drugs, medicaments and biological substances; Z91.018 Allergy to other foods
CPT/HCPCS: 99202

== ENCOUNTER → 2024-11-07 | Outpatient (CLI) | payer OTHER ==
--- NOTE | 2024-11-07 13:50 | P.PAINPG ---
Subjective Patient has come for follow-up visit following 6 weeks of physical therapy. Relates he did not get significant improvement with physical therapy. His pain is located low back to right lower extremity just short of right ankle. He says that the his pain get worse while walking or standing and slightly better with sitting. Also complains of numbness of both feet. Denies any new bowel bladder dysfunction. Objective - Exam On physical exam, significant tenderness in the lumbar spine area bilaterally paraspinal areas and the midline. Spine flexion extension rotation is limited and painful. Neurological exam is essentially unchanged. Assessment and Plan Assessment: Assessment. Low back pain. Lumbar radiculopathy. Lumbar facet joint arthropathy. Lumbar spine spondylosis. Plan: Schedule for caudal epidural steroid injection. In future may need medial branch block for facet joint arthropathy. Time with Patient: Less than 30 PQRS Measure Charge Sheet PQRS Narrative: Smoking Status Current some day smoker Hx Alcohol Use (MH) No Home Medications: Ambulatory Orders Montelukast [Singulair] 10 mg PO DAILY@1200 01/12/18 Tamsulosin [Flomax] 0.4 mg PO DAILY@1200 11/08/21 rOPINIRole HCL [Requip] 4 mg PO HS 11/08/21 Cyclobenzaprine [Flexeril] 10 mg PO TID@0600,1200,1800 11/24/21 Empagliflozin [Jardiance] 10 mg PO DAILY@1200 04/11/22 Apixaban [Eliquis] 5 mg PO BID@0600,1800 05/13/22 Omeprazole [PriLOSEC] 20 mg PO BID@0600,1800 06/27/23 ARIPiprazole [Abilify] 5 mg PO DAILY@0600 07/27/23 Latanoprost [Latanoprost 0.005%] 1 drop BOTH EYES HS 07/27/23 Folic Acid 1 mg PO DAILY@1200 11/23/23 Loratadine [Claritin] 5 mg PO BID@0600,1800 11/23/23 Metoprolol Tartrate [Lopressor] 50 mg PO BID@0600,1800 11/23/23 allopurinoL [Zyloprim] 300 mg PO DAILY@0600 11/23/23 Atorvastatin [Lipitor] 40 mg PO HS@1800 01/20/24 Spironolactone [Aldactone] 25 mg PO DAILY #30 tab 01/26/24 Fluticasone/Umeclidin/Vilanter [Trelegy Ellipta 100-62.5-25] 1 inhalation INHALATION QAM 06/19/24 HYDROcodone/APAP 10-325MG [[place] 10-325] 1 tab PO Q4HR PRN #40 tab 07/01/24 Sennosides/Docusate Sodium [Senna Plus 8.6-50 mg Softgel] 1 each PO DAILY PRN #20 capsule 07/01/24 metroNIDAZOLE [Flagyl] 500 mg PO TID #15 tab 07/01/24 Gabapentin [Neurontin] 400 mg PO TID #90 cap 07/04/24 oxyCODONE-APAP 10-325MG [Percocet 10-325 mg] 1 tab PO Q6HR PRN 3 Days #12 tab 09/07/24 ARIPiprazole [Abilify] 09/16/24 Apixaban [Eliquis] 09/16/24 Atorvastatin [Lipitor] 10 mg PO DAILY 09/16/24 Cyclobenzaprine [Flexeril] 09/16/24 Empagliflozin [Jardiance] 09/16/24 Fluticasone/Umeclidin/Vilanter [Trelegy Ellipta 100-62.5-25] 09/16/24 Folic Acid 09/16/24 Furosemide [Lasix] 09/16/24 Latanoprost Ophth [Xalatan 0.005%] 09/16/24 Loratadine [Claritin] 09/16/24 Metoprolol Tartrate [Lopressor] 09/16/24 Montelukast [Singulair] 09/16/24 Omeprazole [PriLOSEC] 09/16/24 Tamsulosin [Flomax] 09/16/24 rOPINIRole HCL [Requip] 09/16/24 Controlled Substance Measures - Controlled Substance Measures Is patient prescribed a controlled substance at discharge?: No When asked, does pt state using other controlled substances?: No
[2024-11-07 14:19] VITALS: BP 117/73; PULSE 91; RESP 16
== END ==
LOC: PNWHC3 12:50
PROVIDERS: ATTEND Pain Medicine Interventional Pain Medicine
DX: M47.26 Other spondylosis with radiculopathy, lumbar region (principal); F17.210 Nicotine dependence, cigarettes, uncomplicated; Z88.1 Allergy status to other antibiotic agents; Z88.8 Allergy status to other drugs, medicaments and biological substances; Z91.018 Allergy to other foods
CPT/HCPCS: 99211

== ENCOUNTER 2024-11-10 18:14 | Inpatient (IN) | payer OTHER ==
--- NOTE | 2024-11-10 18:59 | ED ---
Extremity Problem HPI - General Chief complaint: Extremity Problem,Nontraumatic Stated complaint: left foot injury Time Seen by Provider: 11/10/24 18:49 Source: patient, RN notes reviewed Mode of arrival: wheelchair Limitations: no limitations - History of Present Illness Initial comments: This is a 64-year-old male who presents to the emergency department for problems with his left foot. States that about a week ago he noticed increased discomfort over the left second toe with increased swelling and some drainage to this area. He is concerned about a growth on the top of the toe. He has a history of neuropathy and states that it is always painful, but states that it may be slightly worse than normal. Denies any fevers or chills. - Related Data Home Medications Medication Instructions Recorded Confirmed Montelukast [Singulair] 10 mg PO DAILY@1200 01/12/18 06/19/24 Tamsulosin [Flomax] 0.4 mg PO DAILY@1200 11/08/21 06/19/24 rOPINIRole HCL [Requip] 4 mg PO HS 11/08/21 06/19/24 Cyclobenzaprine [Flexeril] 10 mg PO TID@0600,1200,1800 11/24/21 06/19/24 Empagliflozin [Jardiance] 10 mg PO DAILY@1200 04/11/22 06/19/24 Apixaban [Eliquis] 5 mg PO BID@0600,1800 05/13/22 06/19/24 Omeprazole [PriLOSEC] 20 mg PO BID@0600,1800 06/27/23 06/19/24 ARIPiprazole [Abilify] 5 mg PO DAILY@0600 07/27/23 06/19/24 Latanoprost [Latanoprost 0.005%] 1 drop BOTH EYES HS 07/27/23 06/19/24 Folic Acid 1 mg PO DAILY@1200 11/23/23 06/19/24 Loratadine [Claritin] 5 mg PO BID@0600,1800 11/23/23 06/19/24 Metoprolol Tartrate [Lopressor] 50 mg PO BID@0600,1800 11/23/23 06/19/24 allopurinoL [Zyloprim] 300 mg PO DAILY@0600 11/23/23 06/19/24 Atorvastatin [Lipitor] 40 mg PO HS@1800 01/20/24 06/19/24 Fluticasone/Umeclidin/Vilanter 1 inhalation INHALATION QAM 06/19/24 06/19/24 [Trelegy Ellipta 100-62.5-25] ARIPiprazole [Abilify] 09/16/24 Apixaban [Eliquis] 09/16/24 Atorvastatin [Lipitor] 10 mg PO DAILY 09/16/24 09/16/24 Cyclobenzaprine [Flexeril] 09/16/24 Empagliflozin [Jardiance] 09/16/24 Fluticasone/Umeclidin/Vilanter 09/16/24 [Trelegy Ellipta 100-62.5-25] Folic Acid 09/16/24 Furosemide [Lasix] 09/16/24 Latanoprost Ophth [Xalatan 0.005%] 09/16/24 Loratadine [Claritin] 09/16/24 Metoprolol Tartrate [Lopressor] 09/16/24 Montelukast [Singulair] 09/16/24 Omeprazole [PriLOSEC] 09/16/24 Tamsulosin [Flomax] 09/16/24 rOPINIRole HCL [Requip] 09/16/24 Previous Rx's Medication Instructions Recorded Spironolactone [Aldactone] 25 mg PO DAILY #30 tab 01/26/24 HYDROcodone/APAP 10-325MG [[place] 1 tab PO Q4HR PRN #40 tab 07/01/24 10-325] Sennosides/Docusate Sodium [Senna 1 each PO DAILY PRN #20 capsule 07/01/24 Plus 8.6-50 mg Softgel] metroNIDAZOLE [Flagyl] 500 mg PO TID #15 tab 07/01/24 Gabapentin [Neurontin] 400 mg PO TID #90 cap 07/04/24 oxyCODONE-APAP 10-325MG [Percocet 1 tab PO Q6HR PRN 3 Days #12 tab 09/07/24 10-325 mg] diazePAM [Valium] 5 mg PO DAILY 1 Days #2 tab 11/07/24 Allergies Allergy/AdvReac Type Severity Reaction Status Date / Time amoxicillin trihydrate AdvReac Rapid Verified 11/10/24 18:29 [From Augmentin] Heart Rate potassium clavulanate AdvReac FELT LIKE Verified 11/10/24 18:29 [From Augmentin] HE WAS GOING TO PASS OUT FAST HEARTBEAT" pregabalin [From Lyrica] AdvReac Leg Verified 11/10/24 18:29 swelling sweet potato AdvReac Rash/Hives Verified 11/10/24 18:29 venlafaxine [From Effexor] AdvReac Confusion Verified 11/10/24 18:29 zucchini (for use with DAM AdvReac Rash/Hives Verified 11/10/24 18:29 only) Review of Systems ROS Statement: Those systems with pertinent positive or pertinent negative responses have been documented in the HPI. ROS Other: All systems not noted in ROS Statement are negative. Past Medical History Past Medical History: Atrial Fibrillation, Coronary Artery Disease (CAD), Heart Failure, COPD, Diabetes Mellitus, Eye Disorder, Fibromyalgia, Hypertension, Myocardial Infarction ([place]), Musculoskeletal Disorder, Osteoarthritis (OA), Prostate Disorder, Vascular Disorder Additional Past Medical History / Comment(s): Chronic cough, hx pancreatitis, bilateral glaucoma, neuropathy bilateral feet, poor circulation to legs, varicose veins, RLS, hx BPH, colitis, gastritis, Alvarenga's esophagus, hx Katja ngles in 2012 with joint pain since, chronic low back pain, DDD. wound to right leg, scabies 06/2023 Last Myocardial Infarction Date:: 09/02/16 History of Any Multi-Drug Resistant Organisms: None Reported Past Surgical History: Appendectomy, Cardiac Ablation, Heart Catheterization, Joint Replacement, Orthopedic Surgery, Prostate Surgery Additional Past Surgical History / Comment(s): Right knee arthroscopy, right knee replacement, EGD, colonoscopy, TURP, cardioversion. Past Anesthesia/Blood Transfusion Reactions: No Reported Reaction Additional Past Anesthesia/Blood Transfusion Reaction / Comment(s): No hx blood transfusion. Past Psychological History: Anxiety, Depression Smoking Status: Former smoker - Past Family History Father Family Medical History: CVA/TIA, Hypertension Additional Family Medical History / Comment(s): Father at the age of 38yrs from HTN/CVA. He was an alcoholic. Mother Family Medical History: COPD, Diabetes Mellitus Additional Family Medical History / Comment(s): Mother of emphysema at the age of 74 yrs (2003), mom had hx of drinking and smoking. General Exam Limitations: no limitations General appearance: alert, in no apparent distress Head exam: Present: atraumatic, normocephalic, normal inspection Respiratory exam: Present: normal lung sounds bilaterally. Absent: respiratory distress, wheezes, rales, rhonchi, stridor Cardiovascular Exam: Present: regular rate, normal rhythm Extremities exam: Present: other (Left second toe has significant onychomycotic changes to the toenail with generalized dryness and flaking with dried blood.) Neurological exam: Present: alert, oriented X3, CN II-XII intact Psychiatric exam: Present: normal affect, normal mood Course Vital Signs 11/10/24 18:25 Temperature 98.1 F Pulse Rate 87 Respiratory 17 Rate Blood Pressure 133/83 O2 Sat by Pulse 96 Oximetry Medical Decision Making - Medical Decision Making This is a 64-year-old male who presents to the emergency department for toe pain. Was pt. sent in by a medical professional or institution? @ -No Did you speak to anyone other than the patient for history? @ -No Did you review nursing and triage notes? @ -Yes, and I agree, it is accurate with regards to the patient's symptoms. Were old charts reviewed? @ -No Differential Diagnosis? @ -Differential Musculoskeletal Muscular strain, contusion, ligament sprain, fracture, arthritis, septic arthri tis, bursitis, cellulitis, muscle spasm, nerve compression, DVT, arterial occlusion, herpes zoster, electrolyte abnormality, tumor.... This is not meant to be in all inclusive list EKG interpreted by me (3pts min.)? @ -Not obtained X-rays interpreted by me (1pt min.)? @ -X-ray of the left foot obtained. My interpretation identifies no acute frac tures. CT interpreted by me (1pt min.)? @ -Not obtained U/S interpreted by me (1pt. min.)? @ -Not obtained What testing was considered but not performed? (CT, X-rays, U/S, labs)? Why? @ -None What meds were considered but not given? Why? @ -None Did you discuss the management of the patient with other professionals? @ -Yes, Dr. Garcia, who accepts the patient for admission Did you reconcile home meds? @ -No Was smoking cessation discussed for >3mins.? @ -No Was critical care preformed (if so, how long)? @ -No Were there social determinants of health that impacted care today? How? (Homelessness, low income, unemployed, alcoholism, drug addiction, transportation, low edu. Level, literacy, decrease access to med. care, alf, rehab)? @ -No Was there de-escalation of care discussed even if they declined? (Discuss DNR or withdrawal of care, Hospice)? @ -No What co-morbidities impacted this encounter? (DM, HTN, Smoking, COPD, CAD, Cancer, CVA, Hep., AIDS, mental health diagnosis, sleep apnea, morbid obesity)? @ -DM, A-fib, CAD Was patient admitted / discharged? @ -Admitted. Lab work demonstrates a mildly elevated CRP of 2.2 and is otherwise unremarkable. X-ray of the left foot obtained revealing concerns for an early osteomyelitis over the affected toe. Given this concern with the patient's multiple comorbidities, he was admitted to medicine for further management. Blood culture obtained and he was started on vancomycin and cefepime. Consult placed for infectious disease and vascular surgery. Case discussed with ED attending Dr. Dorado. Undiagnosed new problem with uncertain prognosis? @ -None Drug Therapy requiring intensive monitoring for toxicity (Heparin, Nitro, Insulin, Cardizem)? @ -None Were any procedures done? @ -None Diagnosis/symptom? @ -Osteomyelitis of toe of left foot Acute, or Chronic, or Acute on Chronic? @ -Acute Uncomplicated (without systemic symptoms) or Complicated (systemic symptoms)? @ -Uncomplicated Side effects of treatment? @ -None Exacerbation, Progression, or Severe Exacerbation] @ -Not applicable Poses a threat to life or bodily function? @ -Yes, can lead to worsening infection - Lab Data Result diagrams: 11/10/24 19:43 11/10/24 19:42 Lab Results 11/10/24 11/10/24 11/10/24 Range/Units 19:42 19:43 19:43 WBC 7.5 (3.8-10.6) k/uL RBC 4.95 (4.30-5.90) m/uL Hgb 14.6 (13.0-17.5) gm/dL Hct 46.1 (39.0-53.0) % MCV 93.3 (80.0-100.0) fL MCH 29.5 (25.0-35.0) pg MCHC 31.6 (31.0-37.0) g/dL RDW 14.6 (11.5-15.5) % Plt Count 254 (150-450) k/uL MPV 7.9 Neutrophils % 68 % Lymphocytes % 20 % Monocytes % 6 % Eosinophils % 3 % Basophils % 1 % Neutrophils # 5.2 (1.3-7.7) k/uL Lymphocytes # 1.5 (1.0-4.8) k/uL Monocytes # 0.5 (0-1.0) k/uL Eosinophils # 0.2 (0-0.7) k/uL Basophils # 0.1 (0-0.2) k/uL Sodium 136 L (137-145) mmol/L Potassium 4.3 (3.5-5.1) mmol/L Chloride 103 (98-107) mmol/L Carbon Dioxide 26 (22-30) mmol/L Anion Gap 7 mmol/L BUN 15 (9-20) mg/dL Creatinine 1.17 (0.66-1.25) mg/dL Est GFR (CKD-EPI)AfAm 76 (>60 ml/min/1.73 sqM) Est GFR (CKD-EPI)NonAf 65 (>60 ml/min/1.73 sqM) Glucose 84 (74-99) mg/dL Plasma Lactic Acid Carlos Manuel 1.1 (0.7-2.0) mmol/L Calcium 8.7 (8.4-10.2) mg/dL Total Bilirubin 0.6 (0.2-1.3) mg/dL AST 20 (17-59) U/L ALT 13 (4-49) U/L Alkaline Phosphatase 95 (38-126) U/L C-Reactive Protein 2.2 H (<1.0) mg/dL Total Protein 6.1 L (6.3-8.2) g/dL Albumin 3.2 L (3.5-5.0) g/dL - Radiology Data Radiology results: report reviewed, image reviewed Disposition Clinical Impression: Osteomyelitis of toe of left foot Disposition: ADMITTED IP TO THIS HOSP
--- NOTE | 2024-11-10 19:26 | XR ---
EXAMINATION TYPE: XR foot limited LT DATE OF EXAM: 11/10/2024 7:16 PM COMPARISON: None. CLINICAL INDICATION: Male, 64 years old with history of Pain, 2nd toe infection, pain TECHNIQUE: Frontal, lateral, and oblique images of the left foot are obtained. FINDINGS: There is no acute fracture/dislocation evident in the left foot. Hallux valgus deformity g reat toe There is soft tissue edema involving the left second digit. There is faint osseous irregular ity and lucency involving the subungual tuft of the left second toe suspicious for early osteomyeliti s. Correlate clinically. This could be confirmed with WBC scan. IMPRESSION: There is faint osseous irregularity and lucency involving the subungual tuft of the lef t second toe suspicious for early osteomyelitis. Correlate clinically. [facility], , 11/10/2024 7:24 PM
[2024-11-10] MEDS ORDERED: VANCOMYCIN IV PER PHARMACY 1 EACH MISC MISCELLANE PRN (19:31)
[2024-11-10] MEDS: VANCOMYCIN 1,500 MG in SODIUM CHLORIDE 0.9% 500 ML 500 ML IVPB ONE (20:06)
[2024-11-10 20:31] LABS: Basophils # (A) 0.1 k/uL (0-0.2); Basophils % (A) 1 %; Eosinophils # (A) 0.2 k/uL (0-0.7); Eosinophils % (A) 3 %; HCT 46.1 % (39.0-53.0); HGB 14.6 gm/dL (13.0-17.5); Lymphocytes # (A) 1.5 k/uL (1.0-4.8); Lymphocytes % (A) 20 %; MCH 29.5 pg (25.0-35.0); MCHC 31.6 g/dL (31.0-37.0); MCV 93.3 fL (80.0-100.0); Mean Platelet Volume 7.9; Monocytes # (A) 0.5 k/uL (0-1.0); Monocytes % (A) 6 %; Neutrophils # (A) 5.2 k/uL (1.3-7.7); Neutrophils % (A) 68 %; Platelet Count 254 k/uL (150-450); RBC 4.95 m/uL (4.30-5.90); RDW 14.6 % (11.5-15.5); WBC 7.5 k/uL (3.8-10.6)
[2024-11-10] MEDS: MORPHINE SULFATE 4 MG/ML SYRINGE IVP STA (20:39)
[2024-11-10 21:14] LABS: ALT 13 U/L (4-49); AST 20 U/L (17-59); African American GFR (CKD) 76 (>60 ml/min/1.73 sqM); Albumin 3.2 g/dL (3.5-5.0); Alkaline Phosphatase 95 U/L (38-126); Anion Gap 7 mmol/L; Blood Urea Nitrogen 15 mg/dL (9-20); C Reactive Protein 2.2 mg/dL (<1.0); Calcium 8.7 mg/dL (8.4-10.2); Carbon Dioxide 26 mmol/L (22-30); Chloride 103 mmol/L (98-107); Glucose 84 mg/dL (74-99); Non-African American GFR(CKD) 65 (>60 ml/min/1.73 sqM); Potassium 4.3 mmol/L (3.5-5.1); Sodium 136 mmol/L (137-145); Total Bilirubin 0.6 mg/dL (0.2-1.3); Total Protein 6.1 g/dL (6.3-8.2)
[2024-11-10] MEDS ORDERED: NALOXONE 0.4 MG/ML 1 ML VIAL IV PRN (21:21)
[2024-11-10] MEDS ORDERED: ONDANSETRON 4 MG/2 ML VIAL IVP PRN (21:23)
[2024-11-10] MEDS ORDERED: ACETAMINOPHEN TAB 325 MG TAB PO PRN (21:23)
[2024-11-10] MEDS ORDERED: MORPHINE SULFATE 4 MG/ML SYRINGE IV PRN (21:23)
[2024-11-10] MEDS: HYDROmorphone 1 MG/ML 1 ML SYRINGE IVP PRN (22:01)
[2024-11-10] MEDS: CEFEPIME 2 GM in SODIUM CHLORIDE 0.9% 100 ML IVPB SCH (23:16)
[2024-11-11 07:02] LABS: African American GFR (CKD) 89 (>60 ml/min/1.73 sqM); Non-African American GFR(CKD) 77 (>60 ml/min/1.73 sqM)
[2024-11-11] MEDS: PANTOPRAZOLE 40 MG/10 ML VIAL IV SCH (08:21)
[2024-11-11] MEDS: VANCOMYCIN 1,500 MG in SODIUM CHLORIDE 0.9% 500 ML 500 ML IVPB SCH (08:21)
[2024-11-11] MEDS: HYDROcodone/APAP 5-325MG 1 EACH TAB PO PRN (10:18)
[2024-11-11 11:29] LABS: Erythrocyte Sedimentation Rate 16 mm/Hr (0-20)
[2024-11-11] MEDS: METOPROLOL TARTRATE 25 MG TAB PO SCH (11:35)
[2024-11-11] MEDS: GABAPENTIN 300 MG CAP PO SCH (11:36)
[2024-11-11] MEDS: APIXABAN 5 MG TAB PO SCH (11:36)
--- NOTE | 2024-11-11 12:15 | P.HPIM ---
History of Present Illness H&P Date: 11/11/24 Chief Complaint: Left foot second toe infection Pleasant [address] Chavez. Chronic stable medical conditions include COPD, fibromyalgia, hypertension, osteoarthritis, chronic pancreatitis from alcoholism, peripheral neuropathy varicose veins, restless leg syndrome, BPH surgery, Alvarenga's esophagus and chronic low back pain from osteoarthritis. Alcohol cirrhosis. . cardioversion done for atrial fibrillation in March 2022. Patient noticed what he described as a neck on the left foot second toe about 3 weeks ago. Started putting bandage dressings. And cleaning it. Had noted some drainage. When he took off his dressing to 3 days ago noticed it to be getting worse. Slight local pain. Denies any fever and chills. Patient continues smoke some cigarettes a day. Denies fever and chills. Activity as above. Review of systems: GEN.: Tired, EYES: None HEENT: None NECK: None RESPIRATORY: Baseline some cough some wheezing and shortness of breath CARDIOVASCULAR: None GASTROINTESTINAL: None GENITOURINARY: None MUSCULOSKELETAL: Chronic pains. LYMPHATICS: None HEMATOLOGICAL: None PSYCHIATRY: None NEUROLOGICAL: Does use a walker Past medical history to include: COPD, fibromyalgia, hypertension, osteoarthritis, chronic pancreatitis from alcoholism, peripheral neuropathy, varicose pains, restless leg syndrome, BPH with surgery, Alvarenga's esophagus, chronic low back pain from osteoarthritis, alcohol use disorder with cirrhosis, atrial fibrillation with ablation-went back into atrial fibrillation Social history: lives with his sister Ewelina. Smoked for close to 42 years. No smoking about 1 pack a cigarettes a week.. Drinking alcohol for years. Stopped February 2022 Physical examination: VITAL SIGNS: 98, 81, 18, 140/82, 93% room air GENERAL: Reclining in bed, awake, not in distress EYES: Pupils equal. Conjunctiva normal. HEENT: External appearance of nose and ears normal, oral cavity grossly normal. NECK: JVD raised; masses not palpable. HEART: Heart sounds irregular; edema. LUNGS: Respiratory rate increased l; decreased breath sounds, mild wheezing ABDOMEN: Soft, , nontender, liver spleen not palpable, no masses palpable. divarification of recti . PSYCH: Alert and oriented x3; mood and affect slightly anxious MUSCULOSKELETAL:No Clubbing/cyanosis;muscles-grossly intact. evidence of OA. Dressing over the incision site DERMATOLOGICAL: Healed areas of scratch de la cruz, Extremities: Left foot second toe distal portion broken down exposed bone. Localized tenderness. Inflammation signs. INVESTIGATIONS, reviewed in the clinical context: July 13, 2025: White count 7.5 hemoglobin 14.6 platelets 254 potassium 4.3 creatinine 1.17 CRP 2.2 Left foot x-ray: Faint osseous irregularity and lucency involving the subungual tuft of the left leg and toe suspicious for early osteomyelitis Assessment and plan: -Possible left foot second toe phalangeal, acute osteomyelitis IV vancomycin, IV cefepime. Consultation to ID and vascular -Lumbar surgery, by Dr. Gabriel Yu June 25, 2024. With chronic lower back pain -COPD in a current smoker. Trelegy, add DuoNeb 4 times daily -Chronic nicotine dependence, cigarette smoker. Currently smoking 1 pack about a week Nicotine patch 7 -Paroxysmal atrial flutter fibrillation a prior history of ablation cardioversion after that.: Eliquis, Lopressor 75 p.o. twice daily -chronic congestive heart failure that from systolic and diastolic dysfunction EF 40 % Aldactone. Lasix. - chronic pancreatitis from alcoholism: -Alcohol-induced cirrhosis: Aldactone. -Chronic fibromyalgia Flexeril 10 mg 3 times a day -Diabetes mellitus type 2 on oral hypoglycemic Jardiance Follow Accu-Cheks with sliding scale -Chronic gait dysfunction, does use a walker at baseline -Essential hypertension, Lopressor 75 mg twice daily -Primary osteoarthritis, multiple joints bilaterally Pain medications as needed -Alcoholic peripheral neuropathy -restless leg syndrome Requip 4 mg daily at bedtime -Alvarenga's esophagus Protonix 40 mg a day -Full code. Discussed with patient. Given the complexity and severity of patient's condition expect the patient to be in the hospital at least for 2 overnights Past Medical History Past Medical History: Atrial Fibrillation, Coronary Artery Disease (CAD), Heart Failure, COPD, Diabetes Mellitus, Eye Disorder, Fibromyalgia, Hypertension, Myocardial Infarction ([place]), Musculoskeletal Disorder, Osteoarthritis (OA), Prostate Disorder, Vascular Disorder Additional Past Medical History / Comment(s): Chronic cough, hx pancreatitis, bilateral glaucoma, neuropathy bilateral feet, poor circulation to legs, varicose veins, RLS, hx BPH, colitis, gastritis, Alvarenga's esophagus, hx Shingles in 2012 with joint pain since, chronic low back pain, DDD. wound to right leg, scabies 06/2023 Last Myocardial Infarction Date:: 09/02/16 History of Any Multi-Drug Resistant Organisms: None Reported Past Surgical History: Appendectomy, Cardiac Ablation, Heart Catheterization, Joint Replacement, Orthopedic Surgery, Prostate Surgery Additional Past Surgical History / Comment(s): Right knee arthroscopy, right knee replacement, EGD, colonoscopy, TURP, cardioversion. Past Anesthesia/Blood Transfusion Reactions: No Reported Reaction Additional Past Anesthesia/Blood Transfusion Reaction / Comment(s): No hx blood transfusion. Past Psychological History: Anxiety, Depression Smoking Status: Former smoker - Past Family History Father Family Medical History: CVA/TIA, Hypertension Additional Family Medical History / Comment(s): Father at the age of 38yrs from HTN/CVA. He was an alcoholic. Mother Family Medical History: COPD, Diabetes Mellitus Additional Family Medical History / Comment(s): Mother of emphysema at the age of 74 yrs (2003), mom had hx of drinking and smoking. Medications and Allergies Home Medications Medication Instructions Recorded Confirmed Type Montelukast [Singulair] 10 mg PO DAILY@149901/12/18 11/11/24 History Tamsulosin [Flomax] 0.4 mg PO DAILY@149911/08/21 11/11/24 History rOPINIRole HCL [Requip] 4 mg PO DAILY@149911/08/21 11/11/24 History Empagliflozin [Jardiance] 10 mg PO DAILY@149904/11/22 11/11/24 History Apixaban [Eliquis] 5 mg PO BID 05/13/22 11/11/24 History Omeprazole [PriLOSEC] 20 mg PO BID 06/27/23 11/11/24 History Latanoprost [Latanoprost 0.005%] 1 drop BOTH EYES DAILY@149907/27/23 11/11/24 History Folic Acid 1 mg PO DAILY@1500 11/23/23 11/11/24 History Loratadine [Claritin] 10 mg PO DAILY@149911/23/23 11/11/24 History Metoprolol Tartrate [Lopressor] 75 mg PO BID 11/23/23 11/11/24 History Atorvastatin [Lipitor] 40 mg PO DAILY@1500 01/20/24 11/11/24 History Fluticasone/Umeclidin/Vilanter 1 puff INHALATION RT-DAILY@149906/19/24 11/11/24 History [Trelegy Ellipta 100-62.5-25] ARIPiprazole [Abilify] 15 mg PO DAILY@1500 11/11/24 11/11/24 History Ferrous Sulfate [Iron] 325 mg PO DAILY@1500 11/11/24 11/11/24 History Furosemide [Lasix] 40 mg PO DAILY@1500 11/11/24 11/11/24 History Gabapentin [Neurontin] 300 mg PO TID 11/11/24 11/11/24 History Potassium Chloride [Klor-Con 8] 8 meq PO DAILY@1500 11/11/24 11/11/24 History Spironolactone [Aldactone] 25 mg PO DAILY@1500 11/11/24 11/11/24 History allopurinoL [Zyloprim] 100 mg PO DAILY@1500 11/11/24 11/11/24 History Allergies Allergy/AdvReac Type Severity Reaction Status Date / Time amoxicillin trihydrate AdvReac Rapid Verified 11/11/24 08:04 [From Augmentin] Heart Rate potassium clavulanate AdvReac FELT LIKE Verified 11/11/24 08:04 [From Augmentin] HE WAS GOING TO PASS OUT FAST HEARTBEAT" pregabalin [From Lyrica] AdvReac Leg Verified 11/11/24 08:04 swelling sweet potato AdvReac Rash/Hives Verified 11/11/24 08:04 venlafaxine [From Effexor] AdvReac Confusion Verified 11/11/24 08:04 zucchini (for use with DAM AdvReac Rash/Hives Verified 11/11/24 08:04 only) Physical Exam Vitals: Vital Signs Temp Pulse Resp BP Pulse Ox 11/11/24 06:32 83 16 151/98 97 11/11/24 00:06 82 15 117/74 96 11/10/24 18:25 98.1 F 87 17 133/83 96 Intake and Output 11/10/24 11/11/24 11/11/24 22:59 06:59 14:59 Other: Weight 88.904 kg Results CBC & Chem 7: 11/10/24 19:43 11/11/24 06:06 Labs: Abnormal Lab Results - Last 24 Hours (Table) 11/10/24 Range/Units 19:42 Sodium 136 L (137-145) mmol/L C-Reactive Protein 2.2 H (<1.0) mg/dL Total Protein 6.1 L (6.3-8.2) g/dL Albumin 3.2 L (3.5-5.0) g/dL
--- NOTE | 2024-11-11 12:56 | P.GSCN ---
History of Present Illness History of present illness: 64-year-old gentleman history of diabetes came to the emergency room with history of left foot second toe pain discomfort and mild drainage of 1 week duration patient has been admitted to I was consulted for for wound management. No history of trauma Medical history history of atrial fibrillation hypertension COPD coronary artery disease Surgical history history of prostate surgery in the past and colonoscopy on examination patient was seen in his room left foot second toe distal phalanx has a scab and some mild drainage noted Chest is clear. Second sound present Abdomen soft nontender femorals are 1+ PT DP not palpable left second toe has a scab at the distal phalanx with some some mild drainage plan is debridement and deep culture Past Medical History Past Medical History: Atrial Fibrillation, Coronary Artery Disease (CAD), Heart Failure, COPD, Diabetes Mellitus, Eye Disorder, Fibromyalgia, Hypertension, Myocardial Infarction ([place]), Musculoskeletal Disorder, Osteoarthritis (OA), Prostate Disorder, Vascular Disorder Additional Past Medical History / Comment(s): Chronic cough, hx pancreatitis, bilateral glaucoma, neuropathy bilateral feet, poor circulation to legs, varicose veins, RLS, hx BPH, colitis, gastritis, Alvarenga's esophagus, hx Shingles in 2012 with joint pain since, chronic low back pain, DDD. wound to right leg, scabies 06/2023 Last Myocardial Infarction Date:: 09/02/16 History of Any Multi-Drug Resistant Organisms: None Reported Past Surgical History: Appendectomy, Cardiac Ablation, Heart Catheterization, Joint Replacement, Orthopedic Surgery, Prostate Surgery Additional Past Surgical History / Comment(s): Right knee arthroscopy, right knee replacement, EGD, colonoscopy, TURP, cardioversion. Past Anesthesia/Blood Transfusion Reactions: No Reported Reaction Additional Past Anesthesia/Blood Transfusion Reaction / Comm: No hx blood transfusion. Past Psychological History: Anxiety, Depression Smoking Status: Former smoker - Past Family History Father Family Medical History: CVA/TIA, Hypertension Additional Family Medical History / Comment(s): Father at the age of 38yrs from HTN/CVA. He was an alcoholic. Mother Family Medical History: COPD, Diabetes Mellitus Additional Family Medical History / Comment(s): Mother of emphysema at the age of 74 yrs (2003), mom had hx of drinking and smoking. Medications and Allergies Home Medications Medication Instructions Recorded Confirmed Type Montelukast [Singulair] 10 mg PO DAILY@1500 01/12/18 11/11/24 History Tamsulosin [Flomax] 0.4 mg PO DAILY@1500 11/08/21 11/11/24 History rOPINIRole HCL [Requip] 4 mg PO DAILY@1500 11/08/21 11/11/24 History Empagliflozin [Jardiance] 10 mg PO DAILY@1500 04/11/22 11/11/24 History Apixaban [Eliquis] 5 mg PO BID 05/13/22 11/11/24 History Omeprazole [PriLOSEC] 20 mg PO BID 06/27/23 11/11/24 History Latanoprost [Latanoprost 0.005%] 1 drop BOTH EYES DAILY@1500 07/27/23 11/11/24 History Folic Acid 1 mg PO DAILY@1500 11/23/23 11/11/24 History Loratadine [Claritin] 10 mg PO DAILY@1500 11/23/23 11/11/24 History Metoprolol Tartrate [Lopressor] 75 mg PO BID 11/23/23 11/11/24 History Atorvastatin [Lipitor] 40 mg PO DAILY@1500 01/20/24 11/11/24 History Fluticasone/Umeclidin/Vilanter 1 puff INHALATION RT-DAILY@1500 06/19/24 11/11/24 History [Giuseppeledemian Ellipta 100-62.5-25] ARIPiprazole [Abilify] 15 mg PO DAILY@1500 11/11/24 11/11/24 History Ferrous Sulfate [Iron] 325 mg PO DAILY@1500 11/11/24 11/11/24 History Furosemide [Lasix] 40 mg PO DAILY@1500 11/11/24 11/11/24 History Gabapentin [Neurontin] 300 mg PO TID 11/11/24 11/11/24 History Potassium Chloride [Klor-Con 8] 8 meq PO DAILY@1500 11/11/24 11/11/24 History Spironolactone [Aldactone] 25 mg PO DAILY@1500 11/11/24 11/11/24 History allopurinoL [Zyloprim] 100 mg PO DAILY@1500 11/11/24 11/11/24 History Allergies Allergy/AdvReac Type Severity Reaction Status Date / Time amoxicillin trihydrate AdvReac Rapid Verified 11/11/24 08:04 [From Augmentin] Heart Rate potassium clavulanate AdvReac FELT LIKE Verified 11/11/24 08:04 [From Augmentin] HE WAS GOING TO PASS OUT FAST HEARTBEAT" pregabalin [From Lyrica] AdvReac Leg Verified 11/11/24 08:04 swelling sweet potato AdvReac Rash/Hives Verified 11/11/24 08:04 venlafaxine [From Effexor] AdvReac Confusion Verified 11/11/24 08:04 zucchini (for use with DAM AdvReac Rash/Hives Verified 11/11/24 08:04 only) Surgical - Exam Vital Signs Temp Pulse Resp BP Pulse Ox 98.1 F 87 17 133/83 96 11/10/24 18:25 11/10/24 18:25 11/10/24 18:25 11/10/24 18:25 11/10/24 18:25 Results - Labs 11/10/24 19:43 11/11/24 06:06 Abnormal Lab Results - Last 24 Hours (Table) 11/10/24 Range/Units 19:42 Sodium 136 L (137-145) mmol/L C-Reactive Protein 2.2 H (<1.0) mg/dL Total Protein 6.1 L (6.3-8.2) g/dL Albumin 3.2 L (3.5-5.0) g/dL Diabetes panel 11/10/24 11/11/24 Range/Units 19:42 06:06 Sodium 136 L (137-145) mmol/L Potassium 4.3 (3.5-5.1) mmol/L Chloride 103 (98-107) mmol/L Carbon Dioxide 26 (22-30) mmol/L BUN 15 (9-20) mg/dL Creatinine 1.17 1.03 (0.66-1.25) mg/dL Glucose 84 (74-99) mg/dL Calcium 8.7 (8.4-10.2) mg/dL AST 20 (17-59) U/L ALT 13 (4-49) U/L Alkaline Phosphatase 95 (38-126) U/L Total Protein 6.1 L (6.3-8.2) g/dL Albumin 3.2 L (3.5-5.0) g/dL Calcium panel 11/10/24 Range/Units 19:42 Calcium 8.7 (8.4-10.2) mg/dL Albumin 3.2 L (3.5-5.0) g/dL Pituitary panel 11/10/24 11/11/24 Range/Units 19:42 06:06 Sodium 136 L (137-145) mmol/L Potassium 4.3 (3.5-5.1) mmol/L Chloride 103 (98-107) mmol/L Carbon Dioxide 26 (22-30) mmol/L BUN 15 (9-20) mg/dL Creatinine 1.17 1.03 (0.66-1.25) mg/dL Glucose 84 (74-99) mg/dL Calcium 8.7 (8.4-10.2) mg/dL Adrenal panel 11/10/24 11/11/24 Range/Units 19:42 06:06 Sodium 136 L (137-145) mmol/L Potassium 4.3 (3.5-5.1) mmol/L Chloride 103 (98-107) mmol/L Carbon Dioxide 26 (22-30) mmol/L BUN 15 (9-20) mg/dL Creatinine 1.17 1.03 (0.66-1.25) mg/dL Glucose 84 (74-99) mg/dL Calcium 8.7 (8.4-10.2) mg/dL Total Bilirubin 0.6 (0.2-1.3) mg/dL AST 20 (17-59) U/L ALT 13 (4-49) U/L Alkaline Phosphatase 95 (38-126) U/L Total Protein 6.1 L (6.3-8.2) g/dL Albumin 3.2 L (3.5-5.0) g/dL
[2024-11-11] MEDS: NICOTINE 7MG/24HR PATCH TRANSDERM SCH (13:10)
[2024-11-11] MEDS: LATANOPROST 0.005% OPHTH DROPS 2.5 ML BTL BOTH EYES SCH (13:52)
[2024-11-11] MEDS: rOPINIRole HCL 4 MG TABLET PO SCH (13:52)
[2024-11-11] MEDS: TAMSULOSIN 0.4 MG CAP.ER.24H PO SCH (13:53)
[2024-11-11] MEDS: DAPAGLIFLOZIN PROPANEDIOL 5 MG TABLET PO SCH (13:53)
[2024-11-11] MEDS: SPIRONOLACTONE 25 MG TAB PO SCH (13:53)
[2024-11-11] MEDS: ATORVASTATIN 40 MG TAB PO SCH (13:53)
[2024-11-11] MEDS: MONTELUKAST 10 MG TAB PO SCH (13:54)
[2024-11-11] MEDS: LORATADINE 10 MG TAB PO SCH (13:54)
[2024-11-11] MEDS: ARIPiprazole 15 MG TAB PO SCH (13:54)
[2024-11-11] MEDS: allopurinoL 100 MG TAB PO SCH (13:54)
[2024-11-11] MEDS: FERROUS SULFATE 325 MG TAB PO SCH (13:54)
[2024-11-11] MEDS: POTASSIUM CHLORIDE ER 10 MEQ TAB.ER.PRT PO SCH (13:55)
[2024-11-11] MEDS: FUROSEMIDE 40 MG TAB PO SCH (13:55)
[2024-11-11] MEDS: FOLIC ACID 1 MG TAB PO SCH (13:55)
[2024-11-11] MEDS ORDERED: NON FORMULARY DRUG (Fluticasone/Umeclidin/Vilanter [Trelegy Ellipta 100-62.5-25] 1 EACH Bl INHALATION SCH (15:00)
--- NOTE | 2024-11-11 17:15 | P.PCN ---
Description of Procedure: Preop diagnosis left foot second toe distal phalanx callus formation with mild redness and tenderness Postop is the same Procedure left foot was prepped patient has a mild redness and callus formation noted to the distal phalanx 1% lidocaine for infiltrated we excised the callus with a sharp knife callus was excised and there was a opening to the distal phalanx with some mild drainage callus and the debridement tissue was sent for deep culture there was some bleeding which was controlled with silver nitrate stick Medihoney gel applied to the wound dressing applied patient tarted the procedure well wound measurement is 0.5 cm
[2024-11-11] MEDS: SYMBICORT 160-4.5 MCG INHALER INHALATION SCH (18:35)
[2024-11-11] MEDS: PANTOPRAZOLE 40 MG TABLET PO SCH (21:09)
--- NOTE | 2024-11-11 22:35 | P.CONS ---
History of Present Illness - Reason for Consult Consult date: 11/11/24 Osteomyelitis toe left foot Requesting physician: Kayla Weston - Chief Complaint Left second toe wound swelling redness x days - History of Present Illness Patient is a 64-year-old male with a past medical history significant for Atrial Fibrillation, Coronary Artery Disease (CAD), Heart Failure, COPD, Diabetes Mellitus, Eye Disorder, Fibromyalgia, Hypertension, Myocardial Infarction ([place]), Musculoskeletal Disorder, Osteoarthritis (OA), Prostate Disorder, Vascular Disorder, presenting to the complaining of pain and swelling and drainage to the left second toe that apparently has been going on for the last few days patient unable to clear about any history of any trauma has been describing pain and swelling to the left second toe to be throbbing moderate in intensity especially when it is touched denies any foul-smelling drainage denies high-grade fever or any chills with the symptoms the patient has been brought into the hospital on arrival to the patient was afebrile no fever have recorded subsequently patient was not tachycardic hypotensive or hypoxic patient did have white count of 7.5 creatinine is 1.17 electrolytes are normal liver enzymes normal patient did have a x-ray of the foot faint bony irregularity involving the subungual tuft of the left second toe suspicious for possibly osteomyelitis patient was started on vancomycin and cefepime infectious disease was consulted for further management of antibiotic therapy Review of Systems Positive point and negatives has been mentioned in the HPI, complete review of systems was performed and all other systems are negative Past Medical History Past Medical History: Atrial Fibrillation, Coronary Artery Disease (CAD), Heart Failure, COPD, Diabetes Mellitus, Eye Disorder, Fibromyalgia, Hypertension, Myocardial Infarction (CT), Musculoskeletal Disorder, Osteoarthritis (OA), Prostate Disorder, Vascular Disorder Additional Past Medical History / Comment(s): Chronic cough, hx pancreatitis, b ilateral glaucoma, neuropathy bilateral feet, poor circulation to legs, varicose veins, RLS, hx BPH, colitis, gastritis, Alvarenga's esophagus, hx Shingles in 2012 with joint pain since, chronic low back pain, DDD. wound to right leg, scabies 06/2023 Last Myocardial Infarction Date:: 09/02/16 History of Any Multi-Drug Resistant Organisms: None Reported Past Surgical History: Appendectomy, Cardiac Ablation, Heart Catheterization, Joint Replacement, Orthopedic Surgery, Prostate Surgery Additional Past Surgical History / Comment(s): Right knee arthroscopy, right knee replacement, EGD, colonoscopy, TURP, cardioversion. Past Anesthesia/Blood Transfusion Reactions: No Reported Reaction Additional Past Anesthesia/Blood Transfusion Reaction / Comm: No hx blood transfusion. Past Psychological History: Anxiety, Depression Smoking Status: Former smoker - Past Family History Father Family Medical History: CVA/TIA, Hypertension Additional Family Medical History / Comment(s): Father at the age of 38yrs from HTN/CVA. He was an alcoholic. Mother Family Medical History: COPD, Diabetes Mellitus Additional Family Medical History / Comment(s): Mother of emphysema at the age of 74 yrs (2003), mom had hx of drinking and smoking. Medications and Allergies Home Medications Medication Instructions Recorded Confirmed Type Montelukast [Singulair] 10 mg PO DAILY@149901/12/18 11/11/24 History Tamsulosin [Flomax] 0.4 mg PO DAILY@149911/08/21 11/11/24 History rOPINIRole HCL [Requip] 4 mg PO DAILY@149911/08/21 11/11/24 History Empagliflozin [Jardiance] 10 mg PO DAILY@149904/11/22 11/11/24 History Apixaban [Eliquis] 5 mg PO BID 05/13/22 11/11/24 History Omeprazole [PriLOSEC] 20 mg PO BID 06/27/23 11/11/24 History Latanoprost [Latanoprost 0.005%] 1 drop BOTH EYES DAILY@149907/27/23 11/11/24 History Folic Acid 1 mg PO DAILY@149911/23/23 11/11/24 History Loratadine [Claritin] 10 mg PO DAILY@149911/23/23 11/11/24 History Metoprolol Tartrate [Lopressor] 75 mg PO BID 11/23/23 11/11/24 History Atorvastatin [Lipitor] 40 mg PO DAILY@149901/20/24 11/11/24 History Fluticasone/Umeclidin/Vilanter 1 puff INHALATION RT-DAILY@149906/19/24 11/11/24 History [Trelegy Ellipta 100-62.5-25] ARIPiprazole [Abilify] 15 mg PO DAILY@149911/11/24 11/11/24 History Ferrous Sulfate [Iron] 325 mg PO DAILY@1500 11/11/24 11/11/24 History Furosemide [Lasix] 40 mg PO DAILY@1500 11/11/24 11/11/24 History Gabapentin [Neurontin] 300 mg PO TID 11/11/24 11/11/24 History Potassium Chloride [Klor-Con 8] 8 meq PO DAILY@1500 11/11/24 11/11/24 History Spironolactone [Aldactone] 25 mg PO DAILY@1500 11/11/24 11/11/24 History allopurinoL [Zyloprim] 100 mg PO DAILY@1500 11/11/24 11/11/24 History Allergies Allergy/AdvReac Type Severity Reaction Status Date / Time amoxicillin trihydrate AdvReac Rapid Verified 11/11/24 08:04 [From Augmentin] Heart Rate potassium clavulanate AdvReac FELT LIKE Verified 11/11/24 08:04 [From Augmentin] HE WAS GOING TO PASS OUT FAST HEARTBEAT" pregabalin [From Lyrica] AdvReac Leg Verified 11/11/24 08:04 swelling sweet potato AdvReac Rash/Hives Verified 11/11/24 08:04 venlafaxine [From Effexor] AdvReac Confusion Verified 11/11/24 08:04 zucchini (for use with DAM AdvReac Rash/Hives Verified 11/11/24 08:04 only) Physical Exam Vitals: Vital Signs Temp Pulse Pulse Resp BP BP Pulse Ox 11/11/24 08:00 98 F 81 18 140/82 93 L 11/11/24 06:32 83 16 151/98 97 11/11/24 00:06 82 15 117/74 96 11/10/24 18:25 98.1 F 87 17 133/83 96 Intake and Output 11/10/24 11/11/24 11/11/24 22:59 06:59 14:59 Other: Weight 88.904 kg 88.904 kg GENERAL DESCRIPTION: Middle-age male lying in bed, no distress. No tachypnea or accessory muscle of respiration use. HEENT: Shows Pallor , no scleral icterus. Oral mucous membrane is dry. No pharyngeal erythema or thrush NECK: Trachea central, no thyromegaly. LUNGS: Unlabored breathing. Clear to auscultation anteriorly. No wheeze or crackle. HEART: S1, S2, regular rate and rhythm. No loud murmur ABDOMEN: Soft, no tenderness , guarding or rigidity, no organomegaly EXTREMITIES: Left second toe tip did have a callus with a wound some swelling no foul-smelling drainage SKIN: No rash, no masses palpable. NEUROLOGICAL: The patient is awake, alert, oriented x3, mood and affect normal. Results CBC & Chem 7: 11/10/24 19:43 11/11/24 06:06 Labs: Abnormal Lab Results - Last 24 Hours (Table) 11/10/24 Range/Units 19:42 Sodium 136 L (137-145) mmol/L C-Reactive Protein 2.2 H (<1.0) mg/dL Total Protein 6.1 L (6.3-8.2) g/dL Albumin 3.2 L (3.5-5.0) g/dL Assessment and Plan (1) Diabetic foot ulcer Current Visit: Yes Status: Acute Code(s): E11.621 - TYPE 2 DIABETES MELLITUS WITH FOOT ULCER; L97.509 - NON-PRESSURE CHRONIC ULCER OTH PRT UNSP FOOT W UNSP SEVERITY SNOMED Code(s): 415288245 (2) Osteomyelitis of toe of left foot Current Visit: Yes Status: Acute Code(s): M86.9 - OSTEOMYELITIS, UNSPECIFIED SNOMED Code(s): 067877929 (3) Penicillin allergy Current Visit: No Status: Acute Code(s): Z88.0 - ALLERGY STATUS TO PENICILLIN SNOMED Code(s): 98292148 Plan: 1patient presented to hospital with pain wound to the left second toe tip concerning for infected callus and secondary cellulitis did have evidence of abnormality seen on the x-ray with concern for possible osteomyelitis 2-penicillin allergy that will limit the number of antibiotics safe to use 3debridement and local culture have been discussed with the vascular surgery that will guide further antibiotic therapy 4-check inflammatory markers 5-patient will empirically treat with vancomycin and cefepime pending culture finalization We will follow on clinical condition and cultures to further adjust medication if needed Thank you for this consultation we will follow the patient along with you Dictation was produced using [employer] software. please excuse any grammatical, word or spelling errors.
[2024-11-12 07:41] LABS: African American GFR (CKD) 90 (>60 ml/min/1.73 sqM); Non-African American GFR(CKD) 78 (>60 ml/min/1.73 sqM)
[2024-11-12] MEDS: TIOTROPIUM 2.5 MCG INHALER INHALATION SCH (07:56)
[2024-11-12] MEDS: VANCOMYCIN 1,250 MG in SODIUM CHLORIDE 0.9% 250 ML IVPB SCH (09:15)
--- NOTE | 2024-11-12 15:36 | P.PN ---
Progress Note - Text 64-year-old gentleman patient has history of callus formation left foot second toe we excised the callus yesterday with Medihoney gel patient is an IV antibiotic under care of infectious disease we will change the dressing no discharge noted we applied Medihoney gel patient dressing should be changed every day on with Medihoney gel
--- NOTE | 2024-11-12 15:48 | P.PN ---
Subjective Progress Note Date: 11/12/24 Principal diagnosis: Reason for follow-up is left second toe diabetic foot infection Patient is a 64-year-old male with a past medical history significant for Atrial Fibrillation, Coronary Artery Disease (CAD), Heart Failure, COPD, Diabetes Mellitus, Eye Disorder, Fibromyalgia, Hypertension, Myocardial Infarction ([place]), Musculoskeletal Disorder, Osteoarthritis (OA), Prostate Disorder, Vascular Disorder, presenting to the complaining of pain and swelling and drainage to the left second toe has been diagnosed with left second toe diabetic foot ulcer s/p debridement and culture by vascular surgery. On today's evaluation that is 11/12/2024, Patient is afebrile this morning patient denies having any chest pain shortness of breath or cough, the patient is currently on room air, patient denies any abdominal pain no diarrhea no nausea no vomiting patient pain to the left second toe is currently controlled. Patient did have a creatinine 1.02 ESR is 16 CRP is 2.2 local cultures currently pending Objective - Vital Signs Vital signs: Vital Signs Temp 99.1 F 11/12/24 07:00 Pulse 79 11/12/24 07:00 Resp 17 11/12/24 07:00 BP 139/74 11/12/24 07:00 Pulse Ox 96 11/12/24 07:00 FiO2 Intake & Output 11/11/24 11/12/24 11/12/24 18:59 06:59 18:59 Intake Total 100 Balance 100 Weight 88.904 kg Intake: Oral 100 Other: Voiding Method Toilet # Voids 2 - Exam GENERAL DESCRIPTION: Middle-age male up in bed in no distress RESPIRATORY SYSTEM: Unlabored breathing , decreased breath sounds at bases HEART: S1 S2 regular rate and rhythm , ABDOMEN: Soft , no tenderness EXTREMITIES: Left foot currently dressed - Labs CBC & Chem 7: 11/10/24 19:43 11/12/24 06:50 Labs: Microbiology - Last 24 Hours (Table) 11/10/24 19:42 Blood Culture - Preliminary Blood 11/11/24 16:32 Gram Stain - Preliminary Toe - Left Second Assessment and Plan (1) Diabetic foot ulcer Current Visit: Yes Status: Acute Code(s): E11.621 - TYPE 2 DIABETES MELLITUS WITH FOOT ULCER; L97.509 - NON-PRESSURE CHRONIC ULCER OTH PRT UNSP FOOT W UNSP SEVERITY SNOMED Code(s): 396601769 (2) Osteomyelitis of toe of left foot Current Visit: Yes Status: Acute Code(s): M86.9 - OSTEOMYELITIS, UNSPECIFIED SNOMED Code(s): 836410726 (3) Penicillin allergy Current Visit: No Status: Acute Code(s): Z88.0 - ALLERGY STATUS TO PENICILLIN SNOMED Code(s): 15640551 Plan: 1patient presented to hospital with pain wound to the left second toe tip conc erning for infected callus and secondary cellulitis did have evidence of abnormality seen on the x-ray with concern for possible osteomyelitis 2-penicillin allergy that will limit the number of antibiotics safe to use 3patient is status post debridement and local culture done by vascular surgery which are currently pending patient did have a normal sed rate 4we will treat with vancomycin however does need to be cut back to keep the trough around 15 and cefepime pending culture finalization Dictation was produced using [employer] dictation software. please excuse any grammatical, word or spelling errors. Time with Patient: Less than 30
[2024-11-12] MEDS ORDERED: DEXTROSE 50% SYRINGE 50 ML IVP PRN ×2 (15:55)
--- NOTE | 2024-11-12 15:56 | P.PN ---
Progress Note - Text Progress Note Date: 11/12/24 Chief Complaint: Left foot second toe infection Pleasant [address] Chavez. Chronic stable medical conditions include COPD, fibromyalgia, hypertension, osteoarthritis, chronic pancreatitis from alcoholism, peripheral neuropathy varicose veins, restless leg syndrome, BPH surgery, Alvarenga's esophagus and chronic low back pain from osteoarthritis. Alcohol cirrhosis. . cardioversion done for atrial fibrillation in March 2022. Patient noticed what he described as a neck on the left foot second toe about 3 weeks ago. Started putting bandage dressings. And cleaning it. Had noted some drainage. When he took off his dressing to 3 days ago noticed it to be getting worse. Slight local pain. Denies any fever and chills. Patient continues smoke some cigarettes a day. Denies fever and chills. Activity as above. November 12: Infected callus was removed by Dr. Galeas yesterday. Local dressing. Cultures pending. Patient on IV vancomycin and IV cefepime. Being followed by ID. Patient tolerating his diet well. Mild shortness of breath Active Medications Acetaminophen (Acetaminophen Tab 325 Mg Tab) 650 mg PO Q6HR PRN PRN Reason: Mild Pain or Fever > 100.5 Hydrocodone Bitart/Acetaminophen (Hydrocodone/Apap 5-325mg 1 Each Tab) 1 each PO Q4HR PRN PRN Reason: Moderate Pain (Scale 4 to 6) Last Admin: 11/12/24 04:28 Dose: 1 each Allopurinol (Allopurinol 100 Mg Tab) 100 mg PO DAILY@1500 [facility] Last Admin: 11/11/24 13:54 Dose: 100 mg Apixaban (Apixaban 5 Mg Tab) 5 mg PO BID [facility]; Protocol Last Admin: 11/12/24 08:06 Dose: 5 mg Aripiprazole (Aripiprazole 15 Mg Tab) 15 mg PO DAILY@1500 [facility] Last Admin: 11/11/24 13:54 Dose: 15 mg Atorvastatin Calcium (Atorvastatin 40 Mg Tab) 40 mg PO DAILY@1500 [facility] Last Admin: 11/11/24 13:53 Dose: 40 mg Budesonide/Formoterol Fumarate (Symbicort 160-4.5 Mcg Inhaler) 2 puff INHALATION RT-BID [facility] Last Admin: 11/12/24 07:56 Dose: 2 puff Dapagliflozin (Dapagliflozin Propanediol 5 Mg Tablet) 5 mg PO DAILY@1500 [facility] Last Admin: 11/11/24 13:53 Dose: 5 mg Ferrous Sulfate (Ferrous Sulfate 325 Mg Tab) 325 mg PO DAILY@1500 [facility] Last Admin: 11/11/24 13:54 Dose: 325 mg Folic Acid (Folic Acid 1 Mg Tab) 1 mg PO DAILY@1500 [facility] Last Admin: 11/11/24 13:55 Dose: 1 mg Furosemide (Furosemide 40 Mg Tab) 40 mg PO DAILY@1500 [facility] Last Admin: 11/11/24 13:55 Dose: 40 mg Gabapentin (Gabapentin 300 Mg Cap) 300 mg PO TID [facility] Last Admin: 11/12/24 08:06 Dose: 300 mg Hydromorphone HCl (Hydromorphone 1 Mg/Ml 1 Ml Syringe) 1 mg IVP Q3H PRN PRN Reason: Severe Pain (Scale 7 to 10) Last Admin: 11/12/24 12:20 Dose: 1 mg Cefepime HCl 2 gm/ Sodium (Chloride) 100 mls @ 25 mls/hr IVPB Q8H [facility]; Protocol Last Admin: 11/12/24 12:14 Dose: 25 mls/hr Vancomycin HCl 1,250 mg/ (Sodium Chloride) 250 mls @ 125 mls/hr IVPB Q12H [facility] Last Admin: 11/12/24 09:15 Dose: 125 mls/hr Latanoprost (Latanoprost 0.005% Ophth Drops 2.5 Ml Btl) 1 drops BOTH EYES DAILY@1500 [facility] Last Admin: 11/11/24 13:52 Dose: 1 drops Loratadine (Loratadine 10 Mg Tab) 10 mg PO DAILY@1500 [facility] Last Admin: 11/11/24 13:54 Dose: 10 mg Metoprolol Tartrate (Metoprolol Tartrate 25 Mg Tab) 75 mg PO BID [facility] Last Admin: 11/12/24 08:06 Dose: 75 mg Montelukast Sodium (Montelukast 10 Mg Tab) 10 mg PO DAILY@1500 [facility] Last Admin: 11/11/24 13:54 Dose: 10 mg Naloxone HCl (Naloxone 0.4 Mg/Ml 1 Ml Vial) 0.2 mg IV Q2M PRN PRN Reason: Opioid Reversal Nicotine (Nicotine 7mg/24hr Patch) 1 patch TRANSDERM DAILY [facility] Last Admin: 11/12/24 09:18 Dose: Not Given Ondansetron HCl (Ondansetron 4 Mg/2 Ml Vial) 4 mg IVP Q8HR PRN PRN Reason: Nausea And Vomiting Pantoprazole Sodium (Pantoprazole 40 Mg Tablet) 40 mg PO BID [facility] Last Admin: 11/12/24 08:06 Dose: 40 mg Potassium Chloride (Potassium Chloride Er 10 Meq Tab.Er.Prt) 10 meq PO DAILY@1500 [facility] Last Admin: 11/11/24 13:55 Dose: 10 meq Ropinirole HCl (Ropinirole Hcl 4 Mg Tablet) 4 mg PO DAILY@1500 [facility] Last Admin: 11/11/24 13:52 Dose: 4 mg Spironolactone (Spironolactone 25 Mg Tab) 25 mg PO DAILY@1500 [facility] Last Admin: 11/11/24 13:53 Dose: 25 mg Tamsulosin HCl (Tamsulosin 0.4 Mg Cap.Er.24h) 0.4 mg PO DAILY@1500 [facility] Last Admin: 11/11/24 13:53 Dose: 0.4 mg Tiotropium [place] (Tiotropium 2.5 Mcg Inhaler) 2 puff INHALATION RT-DAILY [facility] Last Admin: 11/12/24 07:56 Dose: 2 puff Past medical history to include: COPD, fibromyalgia, hypertension, osteoarthritis, chronic pancreatitis from a lcoholism, peripheral neuropathy, varicose pains, restless leg syndrome, BPH with surgery, Alvarenga's esophagus, chronic low back pain from osteoarthritis, alcohol use disorder with cirrhosis, atrial fibrillation with ablation-went back into atrial fibrillation Social history: lives with his sister Ewelina. Smoked for close to 42 years. No smoking about 1 pack a cigarettes a week.. Drinking alcohol for years. Stopped February 2022 Physical examination: VITAL SIGNS: 98, 63, 16, 135 x 70, 97% room air GENERAL: Sitting at the edge of the bed, comfortable EYES: Pupils equal. Conjunctiva normal. HEENT: External appearance of nose and ears normal, oral cavity grossly normal. NECK: JVD raised; masses not palpable. HEART: Heart sounds irregular; edema. LUNGS: Respiratory rate normal; decreased breath sounds, mild wheezing ABDOMEN: Soft, , nontender, liver spleen not palpable, no masses palpable. divarification of recti . PSYCH: Alert and oriented x3; mood and affect slightly anxious MUSCULOSKELETAL:No Clubbing/cyanosis;muscles-grossly intact. evidence of OA. Dressing over the incision site DERMATOLOGICAL: Healed areas of scratch de la cruz, Extremities: Left foot second toe dressing INVESTIGATIONS, reviewed in the clinical context: November 12: Creatinine 1.02 November 10, 2024: White count 7.5 hemoglobin 14.6 platelets 254 potassium 4.3 creatinine 1.17 CRP 2.2 Left foot x-ray: Faint osseous irregularity and lucency involving the subungual tuft of the left leg and toe suspicious for early osteomyelitis Assessment and plan: -Possible left foot second toe phalangeal, acute osteomyelitis IV vancomycin, IV cefepime. Status post infected callus removed by Dr. Askew. Cultures pending -Lumbar surgery, by Dr. Gabriel Yu June 25, 2024. With chronic lower back pain -COPD in a current smoker. Trelegy, add DuoNeb 4 times daily -Chronic nicotine dependence, cigarette smoker. Currently smoking 1 pack about a week Nicotine patch 7 -Paroxysmal atrial flutter fibrillation a prior history of ablation cardioversion after that.: Eliquis, Lopressor 75 p.o. twice daily -chronic congestive heart failure that from systolic and diastolic dysfunction EF 40 % Aldactone. Lasix. - chronic pancreatitis from alcoholism: -Alcohol-induced cirrhosis: Aldactone. -Chronic fibromyalgia Flexeril 10 mg 3 times a day -Diabetes mellitus type 2 on oral hypoglycemic Jardiance Follow Accu-Cheks with sliding scale -Chronic gait dysfunction, does use a walker at baseline -Essential hypertension, Lopressor 75 mg twice daily -Primary osteoarthritis, multiple joints bilaterally Pain medications as needed -Alcoholic peripheral neuropathy -restless leg syndrome Requip 4 mg daily at bedtime -Alvarenga's esophagus Protonix 40 mg a day -Full code. Discussed with patient. Await cultures. Continue antibiotics Past Medical History Past Medical History: Atrial Fibrillation, Coronary Artery Disease (CAD), Heart Failure, COPD, Diabetes Mellitus, Eye Disorder, Fibromyalgia, Hypertension, Myocardial Infarction ([place]), Musculoskeletal Disorder, Osteoarthritis (OA), Prostate Disorder, Vascular Disorder Additional Past Medical History / Comment(s): Chronic cough, hx pancreatitis, bilateral glaucoma, neuropathy bilateral feet, poor circulation to legs, varicose veins, RLS, hx BPH, colitis, gastritis, Alvarenga's esophagus, hx Shingles in 2012 with joint pain since, chronic low back pain, DDD. wound to right leg, scabies 06/2023 Last Myocardial Infarction Date:: 09/02/16 History of Any Multi-Drug Resistant Organisms: None Reported Past Surgical History: Appendectomy, Cardiac Ablation, Heart Catheterization, Joint Replacement, Orthopedic Surgery, Prostate Surgery Additional Past Surgical History / Comment(s): Right knee arthroscopy, right knee replacement, EGD, colonoscopy, TURP, cardioversion. Past Anesthesia/Blood Transfusion Reactions: No Reported Reaction Additional Past Anesthesia/Blood Transfusion Reaction / Comment(s): No hx blood transfusion. Past Psychological History: Anxiety, Depression Smoking Status: Former smoker
[2024-11-12 17:10] LABS: Glucose,Whole Blood 161 mg/dL (70-110)
[2024-11-12] MEDS: INSULIN LISPRO (HumaLOG) 100 UNIT/ML 10 mL VL SQ SCH (17:40)
[2024-11-12 19:49] LABS: Glucose,Whole Blood 108 mg/dL (70-110)
[2024-11-13 06:12] LABS: Glucose,Whole Blood 103 mg/dL (70-110)
[2024-11-13 09:38] LABS: African American GFR (CKD) >90 (>60 ml/min/1.73 sqM); Non-African American GFR(CKD) 88 (>60 ml/min/1.73 sqM)
[2024-11-13 11:31] LABS: Glucose,Whole Blood 146 mg/dL (70-110)
--- NOTE | 2024-11-13 11:38 | P.PN ---
Subjective Progress Note Date: 11/13/24 Principal diagnosis: Reason for follow-up is left second toe diabetic foot infection Patient is a 64-year-old male with a past medical history significant for Atrial Fibrillation, Coronary Artery Disease (CAD), Heart Failure, COPD, Diabetes Mellitus, Eye Disorder, Fibromyalgia, Hypertension, Myocardial Infarction ([place]), Musculoskeletal Disorder, Osteoarthritis (OA), Prostate Disorder, Vascular Disorder, presenting to the complaining of pain and swelling and drainage to the left second toe has been diagnosed with left second toe diabetic foot ulcer s/p debridement and culture by vascular surgery. On today's evaluation that is 11/13/2024,the patient denies any fever or any chills, patient is breathing comfortably on room air, the patient denies chest pain shortness of breath and no significant cough, patient denies abdominal pain, no nausea vomiting or diarrhea. Denies any worsening pain to the left second toe. Patient did have a creatinine 0.92 cultures are currently pending Objective - Vital Signs Vital signs: Vital Signs Temp 98.7 F 11/13/24 07:00 Pulse 81 11/13/24 07:00 Resp 17 11/13/24 07:00 BP 163/83 11/13/24 07:00 Pulse Ox 96 11/13/24 07:00 FiO2 Intake & Output 11/12/24 11/13/24 11/13/24 18:59 06:59 18:59 Intake Total 850 240 Balance 850 240 Intake: Intake, IV Titration 850 Amount Cefepime 2 gm In Sodium 100 Chloride 0.9% 100 ml @ 25 mls/hr IVPB Q8H [facility] Rx#: [id number] Vancomycin 1,250 mg In 250 Sodium Chloride 0.9% 250 ml @ 125 mls/hr IVPB Q12H [facility] Rx#:[id number] Vancomycin 1,500 mg In 500 Sodium Chloride 0.9% 500 ml 500 ml @ 167 mls/hr IVPB Q12H [facility] Rx#: [id number] Oral 240 Other: Voiding Method Toilet # Voids 4 - Exam GENERAL DESCRIPTION: Middle-age male up in bed in no distress RESPIRATORY SYSTEM: Unlabored breathing , decreased breath sounds at bases HEART: S1 S2 regular rate and rhythm , ABDOMEN: Soft , no tenderness EXTREMITIES: Left foot second toe did have more discoloration and some swelling - Labs CBC & Chem 7: 11/10/24 19:43 11/13/24 08:42 Labs: Abnormal Lab Results - Last 24 Hours (Table) 11/12/24 Range/Units 17:08 POC Glucose (mg/dL) 161 H (70-110) mg/dL Microbiology - Last 24 Hours (Table) 11/10/24 19:42 Blood Culture - Preliminary Blood Assessment and Plan (1) Diabetic foot ulcer Current Visit: Yes Status: Acute Code(s): E11.621 - TYPE 2 DIABETES MELLITUS WITH FOOT ULCER; L97.509 - NON-PRESSURE CHRONIC ULCER OTH PRT UNSP FOOT W UNSP SEVERITY SNOMED Code(s): 049994397 (2) Osteomyelitis of toe of left foot Current Visit: Yes Status: Acute Code(s): M86.9 - OSTEOMYELITIS, UNSPECIFIED SNOMED Code(s): 311661021 (3) Penicillin allergy Current Visit: No Status: Acute Code(s): Z88.0 - ALLERGY STATUS TO PENICILLIN SNOMED Code(s): 96131699 Plan: 1patient presented to hospital with pain wound to the left second toe tip concerning for infected callus and secondary cellulitis did have evidence of abnormality seen on the x-ray with concern for possible osteomyelitis 2-penicillin allergy that will limit the number of antibiotics safe to use 3patient is status post debridement and local culture done by vascular surgery which are currently pending patient did have a normal sed rate 4patient noticed to have worsening discoloration of left second toe tip which has been shared with the surgeon await reevaluation for now current new with vancomycin and cefepime pending culture finalization Dictation was produced using [employer] dictation software. please excuse any grammatical, word or spelling errors. Time with Patient: Less than 30
--- NOTE | 2024-11-13 16:23 | P.PN ---
Progress Note - Text Progress Note Date: 11/13/24 Chief Complaint: Left foot second toe infection Pleasant [address] Chavez. Chronic stable medical conditions include COPD, fibromyalgia, hypertension, osteoarthritis, chronic pancreatitis from alcoholism, peripheral neuropathy varicose veins, restless leg syndrome, BPH surgery, Alvarenga's esophagus and chronic low back pain from osteoarthritis. Alcohol cirrhosis. . cardioversion done for atrial fibrillation in March 2022. Patient noticed what he described as a neck on the left foot second toe about 3 weeks ago. Started putting bandage dressings. And cleaning it. Had noted some drainage. When he took off his dressing to 3 days ago noticed it to be getting worse. Slight local pain. Denies any fever and chills. Patient continues smoke some cigarettes a day. Denies fever and chills. Activity as above. November 12: Infected callus was removed by Dr. Galeas yesterday. Local dressing. Cultures pending. Patient on IV vancomycin and IV cefepime. Being followed by ID. Patient tolerating his diet well. Mild shortness of breath November 13: No new issues. Culture still pending. On IV cefepime and IV vancomycin. Eating well. Breathing better. Active Medications Acetaminophen (Acetaminophen Tab 325 Mg Tab) 650 mg PO Q6HR PRN PRN Reason: Mild Pain or Fever > 100.5 Hydrocodone Bitart/Acetaminophen (Hydrocodone/Apap 5-325mg 1 Each Tab) 1 each PO Q4HR PRN PRN Reason: Moderate Pain (Scale 4 to 6) Last Admin: 11/13/24 12:35 Dose: 1 each Allopurinol (Allopurinol 100 Mg Tab) 100 mg PO DAILY@1500 [facility] Last Admin: 11/13/24 14:40 Dose: 100 mg Apixaban (Apixaban 5 Mg Tab) 5 mg PO BID [facility] [place]; Protocol Last Admin: 11/13/24 08:44 Dose: 5 mg Aripiprazole (Aripiprazole 15 Mg Tab) 15 mg PO DAILY@1500 [facility] Last Admin: 11/13/24 14:40 Dose: 15 mg Atorvastatin Calcium (Atorvastatin 40 Mg Tab) 40 mg PO DAILY@1500 [facility] Last Admin: 11/13/24 14:39 Dose: 40 mg Budesonide/Formoterol Fumarate (Symbicort 160-4.5 Mcg Inhaler) 2 puff INHALATION RT-BID [facility] Last Admin: 11/13/24 07:52 Dose: 2 puff Dapagliflozin (Dapagliflozin Propanediol 5 Mg Tablet) 5 mg PO DAILY@1500 [facility] Last Admin: 11/13/24 15:26 Dose: 5 mg Dextrose/Water (Dextrose 50% Syringe 50 Ml) 25 ml IVP PER PROTOCOL PRN; Protocol PRN Reason: Hypoglycemia Dextrose/Water (Dextrose 50% Syringe 50 Ml) 50 ml IVP PER PROTOCOL PRN; Protocol PRN Reason: Hypoglycemia Ferrous Sulfate (Ferrous Sulfate 325 Mg Tab) 325 mg PO DAILY@1500 [facility] Last Admin: 11/13/24 14:40 Dose: 325 mg Folic Acid (Folic Acid 1 Mg Tab) 1 mg PO DAILY@1500 [facility] Last Admin: 11/13/24 14:40 Dose: 1 mg Furosemide (Furosemide 40 Mg Tab) 40 mg PO DAILY@1500 [facility] Last Admin: 11/13/24 14:40 Dose: 40 mg Gabapentin (Gabapentin 300 Mg Cap) 300 mg PO TID [facility] [place] Last Admin: 11/13/24 08:43 Dose: 300 mg Hydromorphone HCl (Hydromorphone 1 Mg/Ml 1 Ml Syringe) 1 mg IVP Q3H PRN PRN Reason: Severe Pain (Scale 7 to 10) Last Admin: 11/13/24 14:39 Dose: 1 mg Cefepime HCl 2 gm/ Sodium (Chloride) 100 mls @ 25 mls/hr IVPB Q8H [facility] [place]; Protocol Last Admin: 11/13/24 12:34 Dose: 25 mls/hr Vancomycin HCl 1,250 mg/ (Sodium Chloride) 250 mls @ 125 mls/hr IVPB Q12H [facility] [place] Last Admin: 11/13/24 08:55 Dose: 125 mls/hr Insulin Human Lispro (Insulin Lispro (Humalog) 100 Unit/Ml 10 Ml Vl) 0 unit SQ AC-TID [facility]; Protocol Last Admin: 11/13/24 11:40 Dose: Not Given Latanoprost (Latanoprost 0.005% Ophth Drops 2.5 Ml Btl) 1 drops BOTH EYES DAILY@1500 [facility] Last Admin: 11/13/24 14:41 Dose: 1 drops Loratadine (Loratadine 10 Mg Tab) 10 mg PO DAILY@1500 [facility] Last Admin: 11/13/24 14:40 Dose: 10 mg Metoprolol Tartrate (Metoprolol Tartrate 25 Mg Tab) 75 mg PO BID [facility] [place] Last Admin: 11/13/24 08:43 Dose: 75 mg Miscellaneous Information (Vancomycin Trough Due 1 Each Misc) 1 each MISCELLANE ONCE ONE Stop: 11/14/24 08:01 Montelukast Sodium (Montelukast 10 Mg Tab) 10 mg PO DAILY@1500 [facility] [place] Last Admin: 11/13/24 14:39 Dose: 10 mg Naloxone HCl (Naloxone 0.4 Mg/Ml 1 Ml Vial) 0.2 mg IV Q2M PRN PRN Reason: Opioid Reversal Nicotine (Nicotine 7mg/24hr Patch) 1 patch TRANSDERM DAILY [facility] Last Admin: 11/13/24 08:44 Dose: 1 patch Ondansetron HCl (Ondansetron 4 Mg/2 Ml Vial) 4 mg IVP Q8HR PRN PRN Reason: Nausea And Vomiting Pantoprazole Sodium (Pantoprazole 40 Mg Tablet) 40 mg PO BID [facility] [place] Last Admin: 11/13/24 08:43 Dose: 40 mg Potassium Chloride (Potassium Chloride Er 10 Meq Tab.Er.Prt) 10 meq PO DAILY@1500 [facility] Last Admin: 11/13/24 14:40 Dose: 10 meq Ropinirole HCl (Ropinirole Hcl 4 Mg Tablet) 4 mg PO DAILY@1500 [facility] [place] Last Admin: 11/13/24 14:40 Dose: 4 mg Spironolactone (Spironolactone 25 Mg Tab) 25 mg PO DAILY@1500 [facility] Last Admin: 11/13/24 14:39 Dose: 25 mg Tamsulosin HCl (Tamsulosin 0.4 Mg Cap.Er.24h) 0.4 mg PO DAILY@1500 [facility] [place] Last Admin: 11/13/24 14:39 Dose: 0.4 mg Tiotropium [place] (Tiotropium 2.5 Mcg Inhaler) 2 puff INHALATION RT-DAILY [facility] Last Admin: 11/13/24 07:52 Dose: 2 puff Past medical history to include: COPD, fibromyalgia, hypertension, osteoarthritis, chronic pancreatitis from alcoholism, peripheral neuropathy, varicose pains, restless leg syndrome, BPH with surgery, Alvarenga's esophagus, chronic low back pain from osteoarthritis, alcohol use disorder with cirrhosis, atrial fibrillation with ablation-went back into atrial fibrillation Social history: lives with his sister Ewelina. Smoked for close to 42 years. No smoking about 1 pack a cigarettes a week.. Drinking alcohol for years. Stopped February 2022 Physical examination: VITAL SIGNS: 98.3, 73, 16, 168 x 87, 98% room air GENERAL: Sitting at the edge of the bed, comfortable EYES: Pupils equal. Conjunctiva normal. HEENT: External appearance of nose and ears normal, oral cavity grossly normal. NECK: JVD raised; masses not palpable. HEART: Heart sounds irregular; edema. LUNGS: Respiratory rate normal; decreased breath sounds, mild wheezing ABDOMEN: Soft, , nontender, liver spleen not palpable, no masses palpable. divarification of recti . PSYCH: Alert and oriented x3; mood and affect slightly anxious MUSCULOSKELETAL:No Clubbing/cyanosis;muscles-grossly intact. evidence of OA. Dressing over the incision site DERMATOLOGICAL: Healed areas of scratch de la cruz, Extremities: Left foot second toe dressing INVESTIGATIONS, reviewed in the clinical context: November 12: Creatinine 1.02 November 10, 2024: White count 7.5 hemoglobin 14.6 platelets 254 potassium 4.3 creatinine 1.17 CRP 2.2 Left foot x-ray: Faint osseous irregularity and lucency involving the subungual tuft of the left leg and toe suspicious for early osteomyelitis Assessment and plan: -Possible left foot second toe phalangeal, acute osteomyelitis IV vancomycin, IV cefepime. Status post infected callus removed by Dr. Askew. Cultures pending -Lumbar surgery, by Dr. Gabriel Yu June 25, 2024. With chronic lower back pain -COPD in a current smoker. Trelegy, add DuoNeb 4 times daily -Chronic nicotine dependence, cigarette smoker. Currently smoking 1 pack about a week Nicotine patch 7 -Paroxysmal atrial flutter fibrillation a prior history of ablation cardioversion after that.: Eliquis, Lopressor 75 p.o. twice daily -chronic congestive heart failure that from systolic and diastolic dysfunction EF 40 % Aldactone. Lasix. - chronic pancreatitis from alcoholism: -Alcohol-induced cirrhosis: Aldactone. -Chronic fibromyalgia Flexeril 10 mg 3 times a day -Diabetes mellitus type 2 on oral hypoglycemic Jardiance Follow Accu-Cheks with sliding scale -Chronic gait dysfunction, does use a walker at baseline -Essential hypertension, Lopressor 75 mg twice daily -Primary osteoarthritis, multiple joints bilaterally Pain medications as needed -Alcoholic peripheral neuropathy -restless leg syndrome Requip 4 mg daily at bedtime -Alvarenga's esophagus Protonix 40 mg a day -Full code. Pending cultures. Discussed with patient. Past Medical History Past Medical History: Atrial Fibrillation, Coronary Artery Disease (CAD), Heart Failure, COPD, Diabetes Mellitus, Eye Disorder, Fibromyalgia, Hypertension, Myocardial Infarction ([place]), Musculoskeletal Disorder, Osteoarthritis (OA), Prostate Disorder, Vascular Disorder Additional Past Medical History / Comment(s): Chronic cough, hx pancreatitis, bilateral glaucoma, neuropathy bilateral feet, poor circulation to legs, varicose veins, RLS, hx BPH, colitis, gastritis, Alvarenga's esophagus, hx Shing les in 2012 with joint pain since, chronic low back pain, DDD. wound to right leg, scabies 06/2023 Last Myocardial Infarction Date:: 09/02/16 History of Any Multi-Drug Resistant Organisms: None Reported Past Surgical History: Appendectomy, Cardiac Ablation, Heart Catheterization, Joint Replacement, Orthopedic Surgery, Prostate Surgery Additional Past Surgical History / Comment(s): Right knee arthroscopy, right knee replacement, EGD, colonoscopy, TURP, cardioversion. Past Anesthesia/Blood Transfusion Reactions: No Reported Reaction Additional Past Anesthesia/Blood Transfusion Reaction / Comment(s): No hx blood transfusion. Past Psychological History: Anxiety, Depression Smoking Status: Former smoker
[2024-11-13 16:44] LABS: Glucose,Whole Blood 309 mg/dL (70-110)
[2024-11-14 06:20] LABS: Glucose,Whole Blood 102 mg/dL (70-110)
[2024-11-14] MEDS: VANCOMYCIN TROUGH DUE 1 EACH MISC MISCELLANE ONE (08:45)
[2024-11-14 09:03] LABS: African American GFR (CKD) >90 (>60 ml/min/1.73 sqM); Non-African American GFR(CKD) 86 (>60 ml/min/1.73 sqM)
[2024-11-14 11:42] LABS: Glucose,Whole Blood 144 mg/dL (70-110)
--- NOTE | 2024-11-14 14:24 | P.PN ---
Subjective Progress Note Date: 11/14/24 Principal diagnosis: Reason for follow-up is left second toe diabetic foot infection Patient is a 64-year-old male with a past medical history significant for Atrial Fibrillation, Coronary Artery Disease (CAD), Heart Failure, COPD, Diabetes Mellitus, Eye Disorder, Fibromyalgia, Hypertension, Myocardial Infarction ([place]), Musculoskeletal Disorder, Osteoarthritis (OA), Prostate Disorder, Vascular Disorder, presenting to the complaining of pain and swelling and drainage to the left second toe has been diagnosed with left second toe diabetic foot ulcer s/p debridement and culture by vascular surgery. On today's evaluation that is 11/14/2024,the patient remains to be afebrile, patient is on room air not requiring supplemental oxygen and denies any shortness of breath no chest pain or cough.Patient denies having any nausea or vomiting, no abdominal pain and no diarrhea has been reported, and denies pain to the left second toe. Patient did have a creatinine 0.94 Vanco trough is 23.5 local culture growing mostly corynebacterium and MRSA Objective - Vital Signs Vital signs: Vital Signs Temp 97.9 F 11/14/24 07:55 Pulse 87 11/14/24 07:55 Resp 16 11/14/24 07:55 BP 132/77 11/14/24 07:55 Pulse Ox 94 L 11/14/24 07:55 FiO2 Intake & Output 11/13/24 11/14/24 11/14/24 18:59 06:59 18:59 Intake Total 1000 Balance 1000 Intake: Intake, IV Titration 350 Amount Cefepime 2 gm In Sodium 100 Chloride 0.9% 100 ml @ 25 mls/hr IVPB Q8H [facility] Rx#: [id number] Vancomycin 1,250 mg In 250 Sodium Chloride 0.9% 250 ml @ 125 mls/hr IVPB Q12H [facility] Rx#:[id number] Oral 650 Other: Voiding Method Toilet # Voids 3 3 # Bowel Movements 0 - Exam GENERAL DESCRIPTION: Middle-age male up in bed in no distress RESPIRATORY SYSTEM: Unlabored breathing , decreased breath sounds at bases HEART: S1 S2 regular rate and rhythm , ABDOMEN: Soft , no tenderness EXTREMITIES: Left foot second toe did have more discoloration and some swelling - Labs CBC & Chem 7: 11/10/24 19:43 11/14/24 07:50 Labs: Abnormal Lab Results - Last 24 Hours (Table) 11/13/24 11/14/24 Range/Units 16:43 11:41 POC Glucose (mg/dL) 309 H 144 H (70-110) mg/dL Microbiology - Last 24 Hours (Table) 11/10/24 19:42 Blood Culture - Preliminary Blood 11/11/24 16:32 Anaerobic Culture - Preliminary Toe - Left Second 11/11/24 16:32 Gram Stain - Preliminary Toe - Left Second Tissue Culture - Preliminary Corynebacterium striatum group Corynebacterium amycolatum Staphylococcus caprae Presumptive MRSA Assessment and Plan (1) Diabetic foot ulcer Current Visit: Yes Status: Acute Code(s): E11.621 - TYPE 2 DIABETES MELLITUS WITH FOOT ULCER; L97.509 - NON-PRESSURE CHRONIC ULCER OTH PRT UNSP FOOT W UNSP SEVERITY SNOMED Code(s): 101200253 (2) Osteomyelitis of toe of left foot Current Visit: Yes Status: Acute Code(s): M86.9 - OSTEOMYELITIS, UNSPECIFIED SNOMED Code(s): 575652857 (3) Penicillin allergy Current Visit: No Status: Acute Code(s): Z88.0 - ALLERGY STATUS TO PE NICILLIN SNOMED Code(s): 49268074 Plan: 1patient presented to hospital with pain wound to the left second toe tip concerning for infected callus and secondary cellulitis did have evidence of abnormality seen on the x-ray with concern for possible osteomyelitis 2-penicillin allergy that will limit the number of antibiotics safe to use 3patient is status post debridement and local culture done by vascular surgery which are currently pending patient did have a normal sed rate 4patient did have discoloration of left second toe tip as well as redness this was discussed with him yesterday local culture currently growing mostly MRSA and corynebacterium will continue vancomycin discontinue cefepime Dictation was produced using [employer] dictation software. please excuse any grammatical, word or spelling errors. Time with Patient: Less than 30
--- NOTE | 2024-11-14 15:19 | P.PN ---
Progress Note - Text Progress Note Date: 11/14/24 Chief Complaint: Left foot second toe infection Pleasant [address] Chavez. Chronic stable medical conditions include COPD, fibromyalgia, hypertension, osteoarthritis, chronic pancreatitis from alcoholism, peripheral neuropathy varicose veins, restless leg syndrome, BPH surgery, Alvarenga's esophagus and chronic low back pain from osteoarthritis. Alcohol cirrhosis. . cardioversion done for atrial fibrillation in March 2022. Patient noticed what he described as a neck on the left foot second toe about 3 weeks ago. Started putting bandage dressings. And cleaning it. Had noted some drainage. When he took off his dressing to 3 days ago noticed it to be getting worse. Slight local pain. Denies any fever and chills. Patient continues smoke some cigarettes a day. Denies fever and chills. Activity as above. November 12: Infected callus was removed by Dr. Galeas yesterday. Local dressing. Cultures pending. Patient on IV vancomycin and IV cefepime. Being followed by ID. Patient tolerating his diet well. Mild shortness of breath November 13: No new issues. Culture still pending. On IV cefepime and IV vancomycin. Eating well. Breathing better. November 14 e: Some discoloration of the left foot second toe tip. Await further input from Dr. Galeas. To speak to ID. He did speak to Dr. Galeas yesterday. In the meantime patient to continue IV vancomycin and IV cefepime. Multiple organisms growing in the culture. Patient tolerating his diet well. Active Medications Acetaminophen (Acetaminophen Tab 325 Mg Tab) 650 mg PO Q6HR PRN PRN Reason: Mild Pain or Fever > 100.5 Hydrocodone Bitart/Acetaminophen (Hydrocodone/Apap 5-325mg 1 Each Tab) 1 each PO Q4HR PRN PRN Reason: Moderate Pain (Scale 4 to 6) Last Admin: 11/14/24 09:05 Dose: 1 each Allopurinol (Allopurinol 100 Mg Tab) 100 mg PO DAILY@1500 [facility] Last Admin: 11/14/24 14:34 Dose: 100 mg Apixaban (Apixaban 5 Mg Tab) 5 mg PO BID [facility]; Protocol Last Admin: 11/14/24 09:05 Dose: 5 mg Aripiprazole (Aripiprazole 15 Mg Tab) 15 mg PO DAILY@1500 [facility] Last Admin: 11/14/24 14:35 Dose: 15 mg Atorvastatin Calcium (Atorvastatin 40 Mg Tab) 40 mg PO DAILY@1500 [facility] Last Admin: 11/14/24 14:34 Dose: 40 mg Budesonide/Formoterol Fumarate (Symbicort 160-4.5 Mcg Inhaler) 2 puff INHALATION RT-BID [facility] Last Admin: 11/14/24 07:41 Dose: 2 puff Dapagliflozin (Dapagliflozin Propanediol 5 Mg Tablet) 5 mg PO DAILY@1500 [facility] Last Admin: 11/14/24 14:35 Dose: 5 mg Dextrose/Water (Dextrose 50% Syringe 50 Ml) 25 ml IVP PER PROTOCOL PRN; Protocol PRN Reason: Hypoglycemia Dextrose/Water (Dextrose 50% Syringe 50 Ml) 50 ml IVP PER PROTOCOL PRN; Protocol PRN Reason: Hypoglycemia Ferrous Sulfate (Ferrous Sulfate 325 Mg Tab) 325 mg PO DAILY@1500 [facility] Last Admin: 11/14/24 14:34 Dose: 325 mg Folic Acid (Folic Acid 1 Mg Tab) 1 mg PO DAILY@1500 [facility] Last Admin: 11/14/24 14:34 Dose: 1 mg Furosemide (Furosemide 40 Mg Tab) 40 mg PO DAILY@1500 [facility] Last Admin: 11/14/24 14:36 Dose: Not Given Gabapentin (Gabapentin 300 Mg Cap) 300 mg PO TID [facility] Last Admin: 11/14/24 09:05 Dose: 300 mg Hydromorphone HCl (Hydromorphone 1 Mg/Ml 1 Ml Syringe) 1 mg IVP Q3H PRN PRN Reason: Severe Pain (Scale 7 to 10) Last Admin: 11/14/24 14:33 Dose: 1 mg Vancomycin HCl 1,250 mg/ (Sodium Chloride) 250 mls @ 125 mls/hr IVPB Q16H [facility] Insulin Human Lispro (Insulin Lispro (Humalog) 100 Unit/Ml 10 Ml Vl) 0 unit SQ AC-TID [facility]; Protocol Last Admin: 11/14/24 11:51 Dose: Not Given Latanoprost (Latanoprost 0.005% Ophth Drops 2.5 Ml Btl) 1 drops BOTH EYES DAILY@1500 [facility] Last Admin: 11/14/24 14:36 Dose: 1 drops Loratadine (Loratadine 10 Mg Tab) 10 mg PO DAILY@1500 [facility] Last Admin: 11/14/24 14:34 Dose: 10 mg Metoprolol Tartrate (Metoprolol Tartrate 25 Mg Tab) 75 mg PO BID [facility] Last Admin: 11/14/24 09:06 Dose: 75 mg Montelukast Sodium (Montelukast 10 Mg Tab) 10 mg PO DAILY@1500 [facility] Last Admin: 11/13/24 14:39 Dose: 10 mg Naloxone HCl (Naloxone 0.4 Mg/Ml 1 Ml Vial) 0.2 mg IV Q2M PRN PRN Reason: Opioid Reversal Nicotine (Nicotine 7mg/24hr Patch) 1 patch TRANSDERM DAILY [facility] Last Admin: 11/14/24 09:03 Dose: Not Given Ondansetron HCl (Ondansetron 4 Mg/2 Ml Vial) 4 mg IVP Q8HR PRN PRN Reason: Nausea And Vomiting Pantoprazole Sodium (Pantoprazole 40 Mg Tablet) 40 mg PO BID [facility] Last Admin: 11/14/24 09:05 Dose: 40 mg Potassium Chloride (Potassium Chloride Er 10 Meq Tab.Er.Prt) 10 meq PO DAILY@1500 [facility] Last Admin: 11/14/24 14:35 Dose: 10 meq Ropinirole HCl (Ropinirole Hcl 4 Mg Tablet) 4 mg PO DAILY@1500 [facility] Last Admin: 11/14/24 14:35 Dose: 4 mg Spironolactone (Spironolactone 25 Mg Tab) 25 mg PO DAILY@1500 [facility] Last Admin: 11/14/24 14:34 Dose: 25 mg Tamsulosin HCl (Tamsulosin 0.4 Mg Cap.Er.24h) 0.4 mg PO DAILY@1500 [facility] Last Admin: 11/14/24 14:34 Dose: 0.4 mg Tiotropium [place] (Tiotropium 2.5 Mcg Inhaler) 2 puff INHALATION RT-DAILY [facility] Last Admin: 11/14/24 07:41 Dose: 2 puff Past medical history to include: COPD, fibromyalgia, hypertension, osteoarthritis, chronic pancreatitis from alcoholism, peripheral neuropathy, varicose pains, restless leg syndrome, BPH with surgery, Alvarenga's esophagus, chronic low back pain from osteoarthritis, alcohol use disorder with cirrhosis, atrial fibrillation with ablation-went back into atrial fibrillation Social history: lives with his sister Ewelina. Smoked for close to 42 years. No smoking about 1 pack a cigarettes a week.. Drinking alcohol for years. Stopped February 2022 Physical examination: VITAL SIGNS: 97.9, 87, 16, 132 x 77, 94% room air GENERAL: Sitting at the edge of the bed, comfortable EYES: Pupils equal. Conjunctiva normal. HEENT: External appearance of nose and ears normal, oral cavity grossly normal. NECK: JVD raised; masses not palpable. HEART: Heart sounds irregular; edema. LUNGS: Respiratory rate normal; decreased breath sounds, mild wheezing ABDOMEN: Soft, , nontender, liver spleen not palpable, no masses palpable. divarification of recti . PSYCH: Alert and oriented x3; mood and affect slightly anxious MUSCULOSKELETAL:No Clubbing/cyanosis;muscles-grossly intact. evidence of OA. Dressing over the incision site DERMATOLOGICAL: Healed areas of scratch de la cruz, Extremities: Left foot second toe tip showing discoloration with some areas of scabbing INVESTIGATIONS, reviewed in the clinical context: November 12: Creatinine 1.02 November 10, 2024: White count 7.5 hemoglobin 14.6 platelets 254 potassium 4.3 creatinine 1.17 CRP 2.2 Left foot x-ray: Faint osseous irregularity and lucency involving the subungual tuft of the left leg and toe suspicious for early osteomyelitis Assessment and plan: -Possible left foot second toe phalangeal, acute osteomyelitis IV vancomycin, IV cefepime. Status post infected callus removed by Dr. Askew. Cultures growing multiple organisms -Lumbar surgery, by Dr. Gabriel Yu June 25, 2024. With chronic lower back pain -COPD in a current smoker. Trelegy, add DuoNeb 4 times daily -Chronic nicotine dependence, cigarette smoker. Currently smoking 1 pack about a week Nicotine patch 7 -Paroxysmal atrial flutter fibrillation a prior history of ablation cardioversion after that.: Eliquis, Lopressor 75 p.o. twice daily -chronic congestive heart failure that from systolic and diastolic dysfunction EF 40 % Aldactone. Lasix. - chronic pancreatitis from alcoholism: -Alcohol-induced cirrhosis: Aldactone. -Chronic fibromyalgia Flexeril 10 mg 3 times a day -Diabetes mellitus type 2 on oral hypoglycemic Jardiance Follow Accu-Cheks with sliding scale -Chronic gait dysfunction, does use a walker at baseline -Essential hypertension, Lopressor 75 mg twice daily -Primary osteoarthritis, multiple joints bilaterally Pain medications as needed -Alcoholic peripheral neuropathy -restless leg syndrome Requip 4 mg daily at bedtime -Alvarenga's esophagus Protonix 40 mg a day -Full code. Await further input from Dr. Galeas from vascular. Wonder f if patient need distal phalanges amputation. Past Medical History Past Medical History: Atrial Fibrillation, Coronary Artery Disease (CAD), Heart Failure, COPD, Diabetes Mellitus, Eye Disorder, Fibromyalgia, Hypertension, Myocardial Infarction ([place]), Musculoskeletal Disorder, Osteoarthritis (OA), Prostate Disorder, Vascular Disorder Additional Past Medical History / Comment(s): Chronic cough, hx pancreatitis, b ilateral glaucoma, neuropathy bilateral feet, poor circulation to legs, varicose veins, RLS, hx BPH, colitis, gastritis, Alvarenga's esophagus, hx Shingles in 2012 with joint pain since, chronic low back pain, DDD. wound to right leg, scabies 06/2023 Last Myocardial Infarction Date:: 09/02/16 History of Any Multi-Drug Resistant Organisms: None Reported Past Surgical History: Appendectomy, Cardiac Ablation, Heart Catheterization, Joint Replacement, Orthopedic Surgery, Prostate Surgery Additional Past Surgical History / Comment(s): Right knee arthroscopy, right knee replacement, EGD, colonoscopy, TURP, cardioversion. Past Anesthesia/Blood Transfusion Reactions: No Reported Reaction Additional Past Anesthesia/Blood Transfusion Reaction / Comment(s): No hx blood transfusion. Past Psychological History: Anxiety, Depression Smoking Status: Former smoker
[2024-11-14 16:49] LABS: INR 1.1 (<1.2); Prothrombin Time 11.7 sec (10.0-12.5)
[2024-11-14 16:56] LABS: Glucose,Whole Blood 120 mg/dL (70-110)
[2024-11-14 20:21] LABS: Glucose,Whole Blood 152 mg/dL (70-110)
[2024-11-15] MEDS: VANCOMYCIN 1,250 MG in SODIUM CHLORIDE 0.9% 250 ML IVPB SCH (00:38)
[2024-11-15 03:02] VITALS: PULSE 84
[2024-11-15 05:12] LABS: African American GFR (CKD) >90 (>60 ml/min/1.73 sqM); Non-African American GFR(CKD) >90 (>60 ml/min/1.73 sqM)
[2024-11-15 06:31] LABS: Glucose,Whole Blood 100 mg/dL (70-110)
[2024-11-15 09:49] VITALS: RESP 17
[2024-11-15 11:58] LABS: Glucose,Whole Blood 124 mg/dL (70-110)
--- NOTE | 2024-11-15 13:03 | P.DS ---
Providers Date of admission: 11/10/24 21:25 Expected date of discharge: 11/15/24 Attending physician: Jamal Tamayo Consults: 11/10/24 21:21 Consult Physician Urgent Consulting Provider: Rk Galeas Consult Reason/Comments: Osteomyelitis of toe of left foot Do you want consulting provider notified?: Yes Consult Physician Urgent Consulting Provider: Pily Garland Consult Reason/Comments: Osteomyelitis of toe of left foot Do you want consulting provider notified?: Yes Primary care physician: Albert Chavez [facility] Course: Chief Complaint: Left foot second toe infection Pleasant [address] Chavez. Chronic stable medical conditions include COPD, fibromyalgia, hypertension, osteoarthritis, chronic pancreatitis from alcoholism, peripheral neuropathy varicose veins, restless leg syndrome, BPH surgery, Alvarenga's esophagus and chronic low back pain from osteoarthritis. Alcohol cirrhosis. . cardioversion done for atrial fibrillation in March 2022. Patient noticed what he described as a neck on the left foot second toe about 3 weeks ago. Started putting bandage dressings. And cleaning it. Had noted some drainage. When he took off his dressing to 3 days ago noticed it to be getting worse. Slight local pain. Denies any fever and chills. Patient continues smoke some cigarettes a day. Denies fever and chills. Activity as above. November 12: Infected callus was removed by Dr. Galeas yesterday. Local dressing. Cultures pending. Patient on IV vancomycin and IV cefepime. Being followed by ID. Patient tolerating his diet well. Mild shortness of breath November 13: No new issues. Culture still pending. On IV cefepime and IV vancomycin. Eating well. Breathing better. November 14 e: Some discoloration of the left foot second toe tip. Await further input from Dr. Galeas. To speak to ID. He did speak to Dr. Galeas yesterday. In the meantime patient to continue IV vancomycin and IV cefepime. Multiple organisms growing in the culture. Patient tolerating his diet well. November 15: PICC line placed. Patient to be discharged on vancomycin per ID. Patient will be evaluated in 10 to 14 days both by ID and Dr. Galeas from vascular. They will then decide amputation versus continued medical management. No new issues. Patient otherwise comfortable. Communicated with case repairer. Discussion and discharge planning more than 35 minutes Past medical history to include: COPD, fibromyalgia, hypertension, osteoarthritis, chronic pancreatitis from alcoholism, peripheral neuropathy, varicose pains, restless leg syndrome, BPH with surgery, Alvarenga's esophagus, chronic low back pain from osteoarthritis, alcohol use disorder with cirrhosis, atrial fibrillation with ablation-went back into atrial fibrillation Social history: lives with his sister Ewelina. Smoked for close to 42 years. No smoking about 1 pack a cigarettes a week.. Drinking alcohol for years. Stopped February 2022 Physical examination: VITAL SIGNS: 98, 17, 137 x 77, 95% room GENERAL: Comfortable EYES: Pupils equal. Conjunctiva normal. HEENT: External appearance of nose and ears normal, oral cavity grossly normal. NECK: JVD raised; masses not palpable. HEART: Heart sounds irregular; edema. LUNGS: Respiratory rate normal; decreased breath sounds, mild wheezing ABDOMEN: Soft, , nontender, liver spleen not palpable, no masses palpable. divarification of recti . PSYCH: Alert and oriented x3; mood and affect slightly anxious MUSCULOSKELETAL:No Clubbing/cyanosis;muscles-grossly intact. evidence of OA. Dressing over the incision site DERMATOLOGICAL: Healed areas of scratch de la cruz, Extremities: Left foot second toe tip showing discoloration with some areas of scabbing INVESTIGATIONS, reviewed in the clinical context: November 15: Creatinine 0.8 November 12: Creatinine 1.02 November 10, 2024: White count 7.5 hemoglobin 14.6 platelets 254 potassium 4.3 creatinine 1.17 CRP 2.2 Left foot x-ray: Faint osseous irregularity and lucency involving the subungual tuft of the left leg and toe suspicious for early osteomyelitis Assessment and plan: -Possible left foot second toe, distal phalangeal, acute osteomyelitis IV vancomycin, IV cefepime-discussed. Status post infected callus removed by Dr. Askew. Cultures growing multiple organisms, including MRSA Patient to be discharged on IV vancomycin. To be evaluated by ID and Dr. Galeas in 10 to 14 days. For further intervention -Lumbar surgery, by Dr. Gabriel Yu June 25, 2024. With chronic lower back pain -COPD in a current smoker. Trelegy, add DuoNeb 4 times daily -Chronic nicotine dependence, cigarette smoker. Currently smoking 1 pack about a week Nicotine patch 7 -Paroxysmal atrial flutter fibrillation a prior history of ablation cardiovers ion after that.: Eliquis, Lopressor 75 p.o. twice daily -chronic congestive heart failure that from systolic and diastolic dysfunction EF 40 % Aldactone. Lasix. - chronic pancreatitis from alcoholism: -Alcohol-induced cirrhosis: Aldactone. -Chronic fibromyalgia Flexeril 10 mg 3 times a day -Diabetes mellitus type 2 on oral hypoglycemic Jardiance Follow Accu-Cheks with sliding scale -Chronic gait dysfunction, does use a walker at baseline -Essential hypertension, Lopressor 75 mg twice daily -Primary osteoarthritis, multiple joints bilaterally Pain medications as needed -Alcoholic peripheral neuropathy -restless leg syndrome Requip 4 mg daily at bedtime -Alvarenga's esophagus Protonix 40 mg a day -Full code. Disposition: [place] Labs: CBC BMP weekly Past Medical History Past Medical History: Atrial Fibrillation, Coronary Artery Disease (CAD), Heart Failure, COPD, Diabetes Mellitus, Eye Disorder, Fibromyalgia, Hypertension, Myocardial Infarction ([place]), Musculoskeletal Disorder, Osteoarthritis (OA), Prostate Disorder, Vascular Disorder Additional Past Medical History / Comment(s): Chronic cough, hx pancreatitis, bilateral glaucoma, neuropathy bilateral feet, poor circulation to legs, varicose veins, RLS, hx BPH, colitis, gastritis, Alvarenga's esophagus, hx Shingles in 2012 with joint pain since, chronic low back pain, DDD. wound to right leg, scabies 06/2023 Last Myocardial Infarction Date:: 09/02/16 History of Any Multi-Drug Resistant Organisms: None Reported Past Surgical History: Appendectomy, Cardiac Ablation, Heart Catheterization, Joint Replacement, Orthopedic Surgery, Prostate Surgery Additional Past Surgical History / Comment(s): Right knee arthroscopy, right knee replacement, EGD, colonoscopy, TURP, cardioversion. Past Anesthesia/Blood Transfusion Reactions: No Reported Reaction Additional Past Anesthesia/Blood Transfusion Reaction / Comment(s): No hx blood transfusion. Past Psychological History: Anxiety, Depression Smoking Status: Former smoker Plan - Discharge Summary Discharge Rx Participant: Yes New Discharge Prescriptions: New Tiotropium 2.5 Mcg/Puff [Spiriva Respimat 2.5 Mcg] 2 puff INHALATION RT-DAILY #1 each Vancomycin HCl in 5 % Dextrose [Vancomycin 1.25 Gram/250Ml-D5w] 1.25 gm IV BID #80 each Continue Montelukast [Singulair] 10 mg PO DAILY@1500 Tamsulosin [Flomax] 0.4 mg PO DAILY@1500 Empagliflozin [Jardiance] 10 mg PO DAILY@1500 Omeprazole [PriLOSEC] 20 mg PO BID Folic Acid 1 mg PO DAILY@1500 Metoprolol Tartrate [Lopressor] 75 mg PO BID Loratadine [Claritin] 10 mg PO DAILY@1500 Gabapentin [Neurontin] 300 mg PO TID allopurinoL [Zyloprim] 100 mg PO DAILY@1500 rOPINIRole HCL [Requip] 4 mg PO DAILY@1500 Apixaban [Eliquis] 5 mg PO BID Latanoprost [Latanoprost 0.005%] 1 drop BOTH EYES DAILY@1500 Atorvastatin [Lipitor] 40 mg PO DAILY@1500 Fluticasone/Umeclidin/Vilanter [Trelegy Ellipta 100-62.5-25] 1 puff INHALATION RT-DAILY@1500 Spironolactone [Aldactone] 25 mg PO DAILY@1500 Ferrous Sulfate [Iron] 325 mg PO DAILY@1500 ARIPiprazole [Abilify] 15 mg PO DAILY@1500 Furosemide [Lasix] 40 mg PO DAILY@1500 Potassium Chloride [Klor-Con 8] 8 meq PO DAILY@1500 Discharge Medication List Montelukast [Singulair] 10 mg PO DAILY@1500 01/12/18 [History] Tamsulosin [Flomax] 0.4 mg PO DAILY@1500 11/08/21 [History] rOPINIRole HCL [Requip] 4 mg PO DAILY@1500 11/08/21 [History] Empagliflozin [Jardiance] 10 mg PO DAILY@1500 04/11/22 [History] Apixaban [Eliquis] 5 mg PO BID 05/13/22 [History] Omeprazole [PriLOSEC] 20 mg PO BID 06/27/23 [History] Latanoprost [Latanoprost 0.005%] 1 drop BOTH EYES DAILY@1500 07/27/23 [History] Folic Acid 1 mg PO DAILY@1500 11/23/23 [History] Loratadine [Claritin] 10 mg PO DAILY@1500 11/23/23 [History] Metoprolol Tartrate [Lopressor] 75 mg PO BID 11/23/23 [History] Atorvastatin [Lipitor] 40 mg PO DAILY@1500 01/20/24 [History] Fluticasone/Umeclidin/Vilanter [Trelegy Ellipta 100-62.5-25] 1 puff INHALATION RT-DAILY@149906/19/24 [History] ARIPiprazole [Abilify] 15 mg PO DAILY@149911/11/24 [History] Ferrous Sulfate [Iron] 325 mg PO DAILY@149911/11/24 [History] Furosemide [Lasix] 40 mg PO DAILY@149911/11/24 [History] Gabapentin [Neurontin] 300 mg PO TID 11/11/24 [History] Potassium Chloride [Klor-Con 8] 8 meq PO DAILY@149911/11/24 [History] Spironolactone [Aldactone] 25 mg PO DAILY@149911/11/24 [History] allopurinoL [Zyloprim] 100 mg PO DAILY@149911/11/24 [History] Tiotropium 2.5 Mcg/Puff [Spiriva Respimat 2.5 Mcg] 2 puff INHALATION RT-DAILY #1 each 11/15/24 [Rx] Vancomycin HCl in 5 % Dextrose [Vancomycin 1.25 Gram/250Ml-D5w] 1.25 gm IV BID #80 each 11/15/24 [Rx] Follow up Appointment(s)/Referral(s): Albert Chavez MD [Primary Care Provider] - 1-2 days Rk Galeas MD [STAFF PHYSICIAN] - 10 Days Pily Garland MD [STAFF PHYSICIAN] - 10 Days Ambulatory/Diagnostic Orders: Basic Metabolic Panel [LAB.AMB] Location: None Selected C Reactive Protein [LAB.AMB] Location: None Selected Complete Blood Count w/diff [LAB.AMB] Location: None Selected Erythrocyte Sedimentation Rate [LAB.AMB] Location: None Selected
--- NOTE | 2024-11-15 15:12 | P.PN ---
Subjective Progress Note Date: 11/15/24 Principal diagnosis: Reason for follow-up is left second toe diabetic foot infection Patient is a 64-year-old male with a past medical history significant for Atrial Fibrillation, Coronary Artery Disease (CAD), Heart Failure, COPD, Diabetes Mellitus, Eye Disorder, Fibromyalgia, Hypertension, Myocardial Infarction ([place]), Musculoskeletal Disorder, Osteoarthritis (OA), Prostate Disorder, Vascular Disorder, presenting to the complaining of pain and swelling and drainage to the left second toe has been diagnosed with left second toe diabetic foot ulcer s/p debridement and culture by vascular surgery. On today's evaluation that is 11/15/2024, the patient continues to be afebrile, the patient is on room air and breathing comfortably, the Pt denies having any chest pain or cough, the patient denies having any abdominal pain no vomiting or any diarrhea has been reported and denies any worsening pain in the left second toe. Patient to have creatinine 0.86 culture with Corynebacterium and MRSA anaerobe culture has been negative Objective - Vital Signs Vital signs: Vital Signs Temp 98.0 F 11/15/24 07:00 Pulse 84 11/15/24 01:15 Resp 17 11/15/24 07:00 BP 137/77 11/15/24 07:00 Pulse Ox 95 11/15/24 07:00 FiO2 Intake & Output 11/14/24 11/15/24 11/15/24 18:59 06:59 18:59 Intake Total 925 1190 Balance 925 1190 Intake: Intake, IV Titration 225 Amount Cefepime 2 gm In Sodium 100 Chloride 0.9% 100 ml @ 25 mls/hr IVPB Q8H [facility] Rx#: [id number] Vancomycin 1,250 mg In 125 Sodium Chloride 0.9% 250 ml @ 125 mls/hr IVPB Q16H [facility] Rx#:[id number] Oral 700 1190 Other: Voiding Method Toilet Toilet Urinal Urinal # Voids 4 1 # Bowel Movements 0 - Exam GENERAL DESCRIPTION: Middle-age male up in bed in no distress RESPIRATORY SYSTEM: Unlabored breathing , decreased breath sounds at bases HEART: S1 S2 regular rate and rhythm , ABDOMEN: Soft , no tenderness EXTREMITIES: Left foot second toe did have more discoloration and some swelling - Labs CBC & Chem 7: 11/10/24 19:43 11/15/24 04:20 Labs: Abnormal Lab Results - Last 24 Hours (Table) 11/14/24 11/14/24 11/15/24 Range/Units 16:54 20:20 11:57 POC Glucose (mg/dL) 120 H 152 H 124 H (70-110) mg/dL Microbiology - Last 24 Hours (Table) 11/11/24 16:32 Anaerobic Culture - Final Toe - Left Second 11/11/24 16:32 Gram Stain - Final Toe - Left Second Tissue Culture - Final Corynebacterium striatum group Corynebacterium amycolatum Staphylococcus caprae Methicillin resist S. aureus 11/10/24 19:42 Blood Culture - Preliminary Blood Assessment and Plan (1) Diabetic foot ulcer Current Visit: Yes Status: Acute Code(s): E11.621 - TYPE 2 DIABETES MELLITUS WITH FOOT ULCER; L97.509 - NON-PRESSURE CHRONIC ULCER OTH PRT UNSP FOOT W UNSP SEVERITY SNOMED Code(s): 730742849 (2) Osteomyelitis of toe of left foot Current Visit: Yes Status: Acute Code(s): M86.9 - OSTEOMYELITIS, UNSPECIFIED SNOMED Code(s): 732155798 (3) Penicillin allergy Current Visit: No Status: Acute Code(s): Z88.0 - ALLERGY STATUS TO PENICILLIN SNOMED Code(s): 44673432 Plan: 1patient presented to hospital with pain wound to the left second toe tip concerning for infected callus and secondary cellulitis did have evidence of abnormality seen on the x-ray with concern for possible osteomyelitis 2-penicillin allergy that will limit the number of antibiotics safe to use 3patient is status post debridement and local culture done by vascular surgery which are currently pending patient did have a normal sed rate 4patient did have discoloration of left second toe tip as well as redness this was discussed with vascular surgery recommending continuation of antibiotic patient did get a PICC line and placed for 6-day course of IV vancomycin pharmacy to dose target trough 15 and close outpatient follow-up prescription/discharge medication entered along with the labs entered to the discharge instruction Dictation was produced using [employer] dictation software. please excuse any grammatical, word or spelling errors. Time with Patient: Less than 30
[2024-11-15 15:17] VITALS: BMI 26.6
--- NOTE | 2024-11-15 15:20 | NM ---
EXAMINATION TYPE: NM bone 3 phase DATE OF EXAM: 11/15/2024 COMPARISON: Left foot x-ray November 10, 2024 CLINICAL INDICATION: Male, 64 years old with history of Left second toe osteo-; pain and swelling. Triple phase bone scintigraphy was performed following the injection of 22.3 mCi Tc 99m MDP. Immedia te images and 5.5 hours post injection images acquired. Imaging of the bilateral ankles and feet. FINDINGS: Asymmetric increased radiotracer uptake to the left ankle and foot versus THE right side. There is in creased focal uptake on soft tissue imaging in the left second toe but there is however no increased focal uptake on delayed phase images at this level to suggest acute osteomyelitis. There is three-phase radiotracer uptake in the first toe of the right foot. Acute fracture or infecti on at this level needs to be considered. Correlate clinically. IMPRESSION: As above. [facility], , 11/15/2024 3:17 PM
[2024-11-15 15:35] VITALS: BP 141/81; TEMP 98.6
== END 2024-11-15 17:17 | disposition home or self-care (01) | DRG 344 ==
LOC: EC 18:14 → 6NMEDSUR 21:24 → OBSVTOIN 21:25 → 1SOBS 11-11 01:37
PROVIDERS: ADMIT Hospitalist; ATTEND Hospitalist
PROC: 0JBR0ZZ Excision of Left Foot Subcutaneous Tissue and Fascia, Open Approach (ICD-10-PCS; principal; 2024-11-11)
PROC: 05HC33Z Insertion of Infusion Device into Left Basilic Vein, Percutaneous Approach (ICD-10-PCS; 2024-11-15)
DX: E11.69 Type 2 diabetes mellitus with other specified complication (principal); M86.172 Other acute osteomyelitis, left ankle and foot; Z79.84 Long term (current) use of oral hypoglycemic drugs; E11.621 Type 2 diabetes mellitus with foot ulcer; E11.628 Type 2 diabetes mellitus with other skin complications; F10.20 Alcohol dependence, uncomplicated; F17.210 Nicotine dependence, cigarettes, uncomplicated; F32.A Depression, unspecified; F41.9 Anxiety disorder, unspecified; G25.81 Restless legs syndrome; G62.1 Alcoholic polyneuropathy; G89.29 Other chronic pain; I11.0 Hypertensive heart disease with heart failure; I25.10 Atherosclerotic heart disease of native coronary artery without angina pectoris; I25.2 Old myocardial infarction; I48.0 Paroxysmal atrial fibrillation; I48.92 Unspecified atrial flutter; I50.42 Chronic combined systolic (congestive) and diastolic (congestive) heart failure; K70.30 Alcoholic cirrhosis of liver without ascites; J44.9 Chronic obstructive pulmonary disease, unspecified; K86.0 Alcohol-induced chronic pancreatitis; I83.90 Asymptomatic varicose veins of unspecified lower extremity; K22.70 Barrett's esophagus without dysplasia; R26.9 Unspecified abnormalities of gait and mobility; L08.9 Local infection of the skin and subcutaneous tissue, unspecified; M15.9 Polyosteoarthritis, unspecified; M47.9 Spondylosis, unspecified; M79.7 Fibromyalgia; H40.9 Unspecified glaucoma; N40.0 Benign prostatic hyperplasia without lower urinary tract symptoms; Z79.51 Long term (current) use of inhaled steroids; Z79.01 Long term (current) use of anticoagulants; Z79.899 Other long term (current) drug therapy; Z88.0 Allergy status to penicillin; Z96.651 Presence of right artificial knee joint; Z88.8 Allergy status to other drugs, medicaments and biological substances; Z86.19 Personal history of other infectious and parasitic diseases
CPT/HCPCS: 36415; 36573; 78315; 80053; 80202; 82565; 83605; 85025; 85610; 85652; 86140; 87040; 87070; 87075; 87077; 87186; 87205; 94640; 96365; 96366; 96375; 96376; 99285

== ENCOUNTER → 2025-02-06 | Outpatient (CLI) | payer OTHER ==
[2025-02-06 12:30] VITALS: BP 166/91; PULSE 63; RESP 16; TEMP 97.2
--- NOTE | 2025-02-06 15:19 | P.PAINPG ---
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 Pt states he experienced % pain relief x 4 wks s/p procedure. Pt states pain level is provoked at 6 /10 in intensity, intermittent, localized in the lumbar spine, predominantly axial, dull in character w occasional shooting pain towards the BL feet. Pain is provoked by ADLs. Pain is alleviated by PT x 6 wks which ended in Nov 2024, physician guided exercises every other day since Nov 2024, heat & ice, medications, topical, repositioning and rest . Oswestry axial pain score at 38. Interventional procedures include Caudal CASSIE x1 (01/05) Medications include Eliquis, Jardiance, Icy-Hot. Hx of ETOH abuse REVIEW OF ORGAN SYSTEMS: CONSTITUTIONAL: No fevers or chills. No recent weight loss. NEUROLOGICAL: + numbness and tingling along the distal extremities. No seizure disorders or headaches. MUSCULOSKELETAL: + pain PSYCHIATRIC: Denies current depression or suicidal thoughts. Physical Examinations : Constitutional : Cooperative , not in acute distress . Neurologic : Cranial nerve II to XII intact. No focal neurological deficits. Psychiatric : alert & oriented x 3. Matching mood & appropriate affect. Judgment & insight intact. Musculoskeletal : Cervical Spine Motor strength in the deltoid and biceps: Normal right side. Normal Left side Motor strength biceps and the wrist extensors: Normal right side . Normal left side Motor strength in the triceps muscle: Normal right side. Normal left side Deep tendon reflexes: Normal at the biceps. Normal at Brachioradialis. Normal at triceps Vertebral body tenderness to deep palpation over Cervical facet loading test: positive bilaterally Spurling test: positive bilaterally Neck distraction test: positive bilaterally Jay sign: positive bilaterally Thoracic spine Vertebral body TTP T11 Lumbar spine Motor strength lower extremities ,thigh and legs 5/5 Right side , 5/5 Left side Deep tendon reflexes : Normal Knee Jerk. Normal Ankle Jerk Vertebral body tenderness over James Test positive Lumbar facet Loading Test: positive Right / positive Left Range of motion of the lumbar spine Flexion 30 degrees, extension 10 degrees Straight Leg Raise test: Left/ Right positive at degrees Luciana test: positive right / positive left. Severe tenderness over the Sacroiliac joint on the Right / Left sides Gaenslen test: positive bilaterally Seated flexion test: positive bilateral ly. Sacral spine : Severe tenderness over the Sacroiliac joint: right side / left side Range of motion: Flexion of the lumbar spine <60 degrees Range of motion: Extension of the lumbar spine <20 degrees Gaenslen's Test positive Luciana test: positive right side / left side Thigh Thrust Test Sacral Thrust Test Imaging: MRI non contrast of thoracolumbar spine from 04/30/24 reviewed Assessment/ Plan : T10-T11 DDD, post L2-L3 laminectomy/ fusion, L3-L4 radiculopathy, L5-S1 facet arthropathy Recommendation of short course Dodge #18. Use, side effects, adverse reactions, safe storage discussed. Will need UDS if would like refills. All questions answered. I have spent greater than 30 minutes on patient care today. Dr Crowell was available by phone for the evaluation of this patient. The time was used to review the medical records including relevant urine studies and Prescription history (MAPs), review of the available imaging, evaluation and examination of the patient, coordination of care with the medical staff and if applicable referring physicians, as well as creation of the medical record - Pain Location Bilateral Lower Back Non-Pharmacological Interventions: Heat, Home Exercise, Inactivity, Physical Therapy, Position/Reposition, Sitting, Standing, Stretching Pharmacological Interventions: Epidural, PRN Medication, Topical Medication PQRS Narrative: Smoking Status Current some day smoker Hx Alcohol Use (MH) No Home Medications: Ambulatory Orders Montelukast [Singulair] 10 mg PO DAILY@1500 01/12/18 Tamsulosin [Flomax] 0.4 mg PO DAILY@1500 11/08/21 rOPINIRole HCL [Requip] 4 mg PO DIRECTED PRN 11/08/21 Empagliflozin [Jardiance] 10 mg PO DAILY@1500 04/11/22 Apixaban [Eliquis] 5 mg PO BID 05/13/22 Omeprazole [PriLOSEC] 20 mg PO BID 06/27/23 Latanoprost [Latanoprost 0.005%] 1 drop BOTH EYES DAILY@1500 07/27/23 Folic Acid 1 mg PO BID 11/23/23 Loratadine [Claritin] 10 mg PO DAILY@1500 11/23/23 Metoprolol Tartrate [Lopressor] 75 mg PO BID 11/23/23 Atorvastatin [Lipitor] 40 mg PO DAILY@1500 01/20/24 Fluticasone/Umeclidin/Vilanter [Trelegy Ellipta 100-62.5-25] 1 puff INHALATION RT-DAILY@149906/19/24 ARIPiprazole [Abilify] 20 mg PO DAILY@149911/11/24 Furosemide [Lasix] 40 mg PO BID 11/11/24 Gabapentin [Neurontin] 300 mg PO DIRECTED PRN 11/11/24 Potassium Chloride [Klor-Con 8] 8 meq PO DAILY@149911/11/24 Spironolactone [Aldactone] 25 mg PO DAILY@149911/11/24 Cyclobenzaprine HCl 10 mg PO DAILY 01/01/25 allopurinoL [Zyloprim] 300 mg PO DAILY 01/01/25 HYDROcodone/APAP 7.5-325MG [Dodge 7.5-325] 1 tab PO Q4H PRN 3 Days #18 tab 02/06/25 Controlled Substance Measures - Controlled Substance Measures Is patient prescribed a controlled substance at discharge?: Yes When asked, does pt state using other controlled substances?: Yes If prescribed controlled substance>3 days was MAPS reviewed?: Prescribed <3 Days
== END | disposition home or self-care (01) ==
LOC: PNWHC3 12:13
PROVIDERS: ATTEND Specialist
DX: M51.34 Other intervertebral disc degeneration, thoracic region (principal); M47.27 Other spondylosis with radiculopathy, lumbosacral region; M96.1 Postlaminectomy syndrome, not elsewhere classified; Z98.1 Arthrodesis status; Z88.0 Allergy status to penicillin; Z88.1 Allergy status to other antibiotic agents; Z88.8 Allergy status to other drugs, medicaments and biological substances; F17.200 Nicotine dependence, unspecified, uncomplicated
CPT/HCPCS: 99211

== ENCOUNTER 2025-02-10 13:59 | Inpatient (IN) | payer OTHER ==
--- NOTE | 2025-02-10 14:29 | ED ---
General Adult HPI - General Source: patient, RN notes reviewed Mode of arrival: wheelchair Limitations: no limitations <Clifford Paul - Last Filed: 02/10/25 14:28> - General Source: patient, RN notes reviewed, old records reviewed Mode of arrival: wheelchair Limitations: no limitations - History of Present Illness -: days(s) Location: chest Radiation: non-radiation Severity scale (1-10): 3 Consistency: constant Improves with: none Worsens with: none Associated Symptoms: denies other symptoms <Kem Dorado - Last Filed: 02/15/25 13:09> - General Chief complaint: Wound/Laceration Stated complaint: L Toe Abscess/Issue Time Seen by Provider: 02/10/25 14:05 - History of Present Illness Initial comments: Quick note 64-year-old male presents emergency department with complaining infection to his foot. Patient states that he had a bump on his toe that he states that he drained out some pus this morning. Patient states he has redness streaking up his foot (Clifford Paul) This is a 64-year-old male to ER for evaluation, history of vascular insuff iciency arterial insufficiency and severe pain of the left great toe of the left foot with significant ulcer diabetic foot ulcer (Kem Dorado) - Related Data Home Medications Medication Instructions Recorded Confirmed Montelukast [Singulair] 10 mg PO DAILY 01/12/18 02/10/25 Tamsulosin [Flomax] 0.4 mg PO DAILY 11/08/21 02/10/25 rOPINIRole HCL [Requip] 4 mg PO DAILY 11/08/21 02/10/25 Empagliflozin [Jardiance] 10 mg PO DAILY 04/11/22 02/10/25 Apixaban [Eliquis] 5 mg PO BID 05/13/22 02/10/25 Omeprazole [PriLOSEC] 20 mg PO BID 06/27/23 02/10/25 Latanoprost [Latanoprost 0.005%] 1 drop BOTH EYES HS 07/27/23 02/10/25 Folic Acid 1 mg PO BID 11/23/23 02/10/25 Loratadine [Claritin] 10 mg PO DAILY 11/23/23 02/10/25 Metoprolol Tartrate [Lopressor] 50 mg PO BID 11/23/23 02/10/25 Atorvastatin [Lipitor] 40 mg PO DAILY 01/20/24 02/10/25 Fluticasone/Umeclidin/Vilanter 1 puff INHALATION RT-DAILY 06/19/24 02/10/25 [Trelegy Ellipta 100-62.5-25] Furosemide [Lasix] 20 mg PO BID 11/11/24 02/10/25 Potassium Chloride [Klor-Con 8] 8 meq PO DAILY 11/11/24 02/10/25 Spironolactone [Aldactone] 12.5 mg PO DAILY 11/11/24 02/10/25 Cyclobenzaprine HCl 10 mg PO TID PRN 01/01/25 02/10/25 allopurinoL [Zyloprim] 300 mg PO DAILY 01/01/25 02/10/25 Cariprazine HCl [Vraylar] 3 mg PO DAILY 02/10/25 02/10/25 Ergocalciferol [Vitamin D2 (1250 1,250 mcg PO JULIO 02/10/25 02/10/25 Mcg = 45818 Iu)] Ferrous Sulfate [Iron (65 MG 325 mg PO DAILY 02/10/25 02/10/25 Elemental)] Fluticasone Nasal [place] [Flonase 2 spr EA NOSTRIL BID PRN 02/10/25 02/10/25 Nasal [place]] Vortioxetine Hydrobromide 5 mg PO DAILY 02/10/25 02/10/25 [Trintellix] hydrOXYzine pamoate [Vistaril] 25 mg PO TID PRN 02/10/25 02/10/25 Previous Rx's Medication Instructions Recorded Linezolid [Zyvox] 600 mg PO Q12H #20 tab 02/14/25 Allergies Allergy/AdvReac Type Severity Reaction Status Date / Time amoxicillin trihydrate AdvReac Rapid Verified 02/10/25 20:35 [From Augmentin] Heart Rate/FELT LIKE HE WAS GOING TO PASS OUT potassium clavulanate AdvReac FELT LIKE Verified 02/10/25 20:35 [From Augmentin] HE WAS GOING TO PASS OUT FAST HEARTBEAT" pregabalin [From Lyrica] AdvReac Leg Verified 02/10/25 20:35 swelling Review of Systems ROS Other: All systems not noted in ROS Statement are negative. <Dedoe,Clifford M - Last Filed: 02/10/25 14:28> ROS Other: All systems not noted in ROS Statement are negative. <AveKem Paula - Last Filed: 02/15/25 13:09> ROS Statement: Those systems with pertinent positive or pertinent negative responses have been documented in the HPI. Past Medical History Past Medical History: Atrial Fibrillation, Coronary Artery Disease (CAD), Heart Failure, COPD, Diabetes Mellitus, Eye Disorder, Fibromyalgia, Hypertension, Myocardial Infarction ([place]), Musculoskeletal Disorder, Osteoarthritis (OA), Prostate Disorder, Vascular Disorder Additional Past Medical History / Comment(s): Chronic cough, hx pancreatitis, bilateral glaucoma, neuropathy bilateral feet, poor circulation to legs, varicose veins, RLS, hx BPH, colitis, gastritis, Alvarenga's esophagus, hx Shingles in 2012 with joint pain since, chronic low back pain, DDD. wound to right leg, scabies 06/2023 Last Myocardial Infarction Date:: 09/02/16 History of Any Multi-Drug Resistant Organisms: MRSA Date of last positivie culture/infection: 11/11/24 MDRO Source:: lt2 toe Past Surgical History: Appendectomy, Cardiac Ablation, Heart Catheterization, Joint Replacement, Orthopedic Surgery, Prostate Surgery Additional Past Surgical History / Comment(s): Right knee arthroscopy, right knee replacement, EGD, colonoscopy, TURP, cardioversion. Past Anesthesia/Blood Transfusion Reactions: No Reported Reaction Additional Past Anesthesia/Blood Transfusion Reaction / Comment(s): No hx blood transfusion. Past Psychological History: Anxiety, Depression Smoking Status: Current every day smoker Past Alcohol Use History: Occasional Past Drug Use History: None Reported - Past Family History Father Family Medical History: CVA/TIA, Hypertension Additional Family Medical History / Comment(s): Father at the age of 38yrs from HTN/CVA. He was an alcoholic. Mother Family Medical History: COPD, Diabetes Mellitus Additional Family Medical History / Comment(s): Mother of emphysema at the age of 74 yrs (2003), mom had hx of drinking and smoking. <Clifford Paul - Last Filed: 02/10/25 14:28> General Exam Limitations: no limitations <Clifford Paul - Last Filed: 02/10/25 14:28> General appearance: alert, in no apparent distress Head exam: Present: atraumatic, normocephalic, normal inspection Eye exam: Present: normal appearance, PERRL, EOMI. Absent: scleral icterus, conjunctival injection, periorbital swelling ENT exam: Present: normal exam, mucous membranes moist Neck exam: Present: normal inspection. Absent: tenderness, meningismus, lymphadenopathy Respiratory exam: Present: normal lung sounds bilaterally. Absent: respiratory distress, wheezes, rales, rhonchi, stridor Cardiovascular Exam: Present: regular rate, normal rhythm, normal heart sounds. Absent: systolic murmur, diastolic murmur, rubs, gallop, clicks GI/Abdominal exam: Present: soft, normal bowel sounds. Absent: distended, tenderness, guarding, rebound, rigid Extremities exam: Present: normal inspection, full ROM, normal capillary refill. Absent: tenderness, pedal edema, joint swelling, calf tenderness Back exam: Present: normal inspection Neurological exam: Present: alert, oriented X3, CN II-XII intact Psychiatric exam: Present: normal affect, normal mood Skin exam: Present: warm, dry, intact, normal color. Absent: rash <Kem Dorado - Last Filed: 02/15/25 13:09> - General Exam Comments Initial Comments: Visual Physical Exam Vital signs reviewed General: Well-appearing, nontoxic, no acute distress. Head: Normocephalic, atraumatic Eyes: PERRLA, EOMI ENT: Airway patent Chest: Nonlabored breathing Skin: No visual rash, normal skin tone Neuro: Alert and oriented 3 Musculoskeletal: No gross abnormalities (Clifford Paul) Course <Kem Dorado - Last Filed: 02/15/25 13:09> Vital Signs 02/10/25 02/10/25 02/10/25 14:01 17:48 17:52 Temperature 97.8 F 98.2 F 98.2 F Pulse Rate 60 66 66 Respiratory 16 20 20 Rate Blood Pressure 138/71 148/79 148/79 O2 Sat by Pulse 97 99 Oximetry 02/10/25 02/10/25 02/10/25 18:40 19:25 22:44 Temperature 98.4 F Pulse Rate 65 90 Respiratory 18 18 Rate Blood Pressure 133/83 124/77 O2 Sat by Pulse 98 96 Oximetry - Reevaluation(s) Reevaluation #1: 02/10/25 19:51 Medical records reviewed (Kem Dorado) Reevaluation #2: 02/10/25 19:51 Patient has no change in symptoms here in the ER no acute distress (Kem Dorado) Reevaluation #3: 02/10/25 19:51 Patient informed of results questions answered (Kem Dorado) Reevaluation #4: Was pt. sent in by a medical professional or institution (ROMULO Alcantar, INTERNATIONAL BANK MANAGER, urgent care, hospital, or skilled nursing...) When possible be specific @ -no Did you speak to anyone other than the patient for history (EMS, parent, family, police, friend...)? What history was obtained from this source @ -no Did you review nursing and triage notes (agree or disagree)? Why? @ -agree Are old charts reviewed (outside hosp., previous admission, EMS record, old EKG, old radiological studies, urgent care reports/EKG's, skilled nursing records)? Report findings @ -yes Differential Diagnosis (chest pain, altered mental status, abdominal pain women, abdominal pain men, vaginal bleeding, weakness, fever, dyspnea, syncope, hea dache, dizziness, GI bleed, back pain, seizure, CVA, palpatations, mental health, musculoskeletal)? @ -prior EKG interpreted by me (3pts min.). @ -no X-rays interpreted by me (1pt min.). @ -yes negative for acute disease CT interpreted by me (1pt min.). @ -no U/S interpreted by me (1pt. min.). @ -no What testing was considered but not performed or refused? (CT, X-rays, U/S, labs)? Why? @ -none What meds were considered but not given or refused? Why? @ -none Did you discuss the management of the patient with other professionals (professionals i.e. ROMULO Alcantar, INTERNATIONAL BANK MANAGER, lab, RT, psych nurse, social media senior associate, precision farming specialist, teacher, juvenile justice officer, case monitor)? Give summary @ -no Was smoking cessation discussed for >3mins.? @ -no Was critical care preformed (if so, how long)? @ -no Were there social determinants of health that impacted care today? How? (Homelessness, low income, unemployed, alcoholism, drug addiction, transportation, low edu. Level, literacy, decrease access to med. care, senior living, rehab)? @ -none Was there de-escalation of care discussed even if they declined (Discuss DNR or withdrawal of care, Hospice)? DNR status @ -no What co-morbidities impacted this encounter? (DM, HTN, Smoking, COPD, CAD, Cancer, CVA, ARF, Chemo, Hep., AIDS, mental health diagnosis, sleep apnea, mor bid obesity)? @ -none Was patient admitted / discharged? Hospital course, mention meds given and ro tati, prescriptions, significant lab abnormalities, going to OR and other pertinent info. @ - 64 male will be admitted for significant ulcer and infection of the left great toe cellulitis diabetic foot ulcer and vascular insufficiency arterial Admitted Undiagnosed new problem with uncertain prognosis? @ -no Drug Therapy requiring intensive monitoring for toxicity (Heparin, Nitro, Insulin, Cardizem)? @ -no Were any procedures done? @ -no Diagnosis/symptom? @ -osteomyelitis great toe, diabetic foot ulcer Acute, or Chronic, or Acute on Chronic? @ -Acute Uncomplicated (without systemic symptoms) or Complicated (systemic symptoms)? @ -Complicated Side effects of treatment? @ -no Exacerbation, Progression, or Severe Exacerbation? @ -exacerbation Poses a threat to life or bodily function? How? (Chest pain, [place], [place], pneumonia, PE, COPD, DKA, ARF, appy, cholecystitis, CVA, Diverticulitis, Homicidal, Suicidal, threat to staff... and all critical care pts) @ -yes w osteomyelistis (Kem Dorado) - Consultations Consultation #1: Spoke with [facility] who agrees to admit this patient (Kem Dorado) Medical Decision Making <Clifford Paul - Last Filed: 02/10/25 14:28> - Lab Data Result diagrams: 02/12/25 07:11 02/14/25 06:54 - Radiology Data Radiology results: report reviewed (X-ray foot with concern for osteomyelitis), image reviewed <Kem Dorado - Last Filed: 02/15/25 13:09> - Medical Decision Making I completed the quick note portion of this chart signed Clifford Paul PA-C (Dedoe,Clifford M) 64 male will be admitted for significant ulcer and infection of the left great toe cellulitis diabetic foot ulcer and vascular insufficiency arterial (Kem Dorado) - Lab Data Lab Results 02/10/25 02/10/25 02/10/25 Range/Units 15:20 15:20 15:20 WBC 11.01 H (4.50-10.00) 10*3/uL RBC 5.03 (4.40-5.60) 10*6/uL Hgb 15.6 (13.0-17.0) g/dL Hct 45.0 (39.6-50.0) % MCV 89.5 (80.0-97.0) fL MCH 31.0 (27.0-32.0) pg MCHC 34.7 (32.0-37.0) g/dL Plt Count 242 (140-440) 10*3/uL MPV 10.3 (9.5-12.2) fL Immature Gran % (Auto) 0.6 % Neutrophils % 77.4 % Lymphocytes % 13.6 % Monocytes % 7.1 % Eosinophils % 0.7 % Basophils % 0.6 % Immature Gran # 0.07 H (0.00-0.04) 10*3/uL Neutrophils # 8.51 H (1.80-7.70) 10*3/uL Lymphocytes # 1.50 (0.90-5.00) 10*3/uL Monocytes # 0.78 (0.20-1.00) 10*3/uL Eosinophils # 0.08 (0.04-0.35) 10*3/uL Basophils # 0.07 (0.00-0.10) 10*3/uL Sodium 140 (137-145) mmol/L Potassium 3.5 (3.5-5.1) mmol/L Chloride 104 (98-107) mmol/L Carbon Dioxide 25 (22-30) mmol/L Anion Gap 11 mmol/L BUN 10 (9-20) mg/dL Creatinine 0.85 (0.66-1.25) mg/dL Est GFR (CKD-EPI)AfAm >90 (>60 ml/min/1.73 sqM) Est GFR (CKD-EPI)NonAf >90 (>60 ml/min/1.73 sqM) Glucose 90 (74-99) mg/dL Plasma Lactic Acid Carlos Manuel 1.8 (0.7-2.0) mmol/L Calcium 9.1 (8.4-10.2) mg/dL Total Bilirubin 1.0 (0.2-1.3) mg/dL AST 15 L (17-59) U/L ALT 10 (4-49) U/L Alkaline Phosphatase 98 (38-126) U/L C-Reactive Protein 5.2 H (<1.0) mg/dL Total Protein 6.5 (6.3-8.2) g/dL Albumin 3.7 (3.5-5.0) g/dL Disposition <Clifford Paul - Last Filed: 02/10/25 14:28> Is patient prescribed a controlled substance at d/c from ED?: No Time of Disposition: 18:50 <Kem Dorado - Last Filed: 02/15/25 13:09> Clinical Impression: Blister of great toe, left, infected Disposition: ADMITTED IP TO THIS HOSP
--- NOTE | 2025-02-10 15:23 | XR ---
EXAMINATION TYPE: XR foot complete LT DATE OF EXAM: 02/10/2025 2:46 PM COMPARISON: 11/10/2024. CLINICAL INDICATION: Male, 64 years old with history of infection; PHH, pain TECHNIQUE: XR foot complete LT examined in the AP, oblique, and lateral projections. FINDINGS: Soft tissue swelling without evidence of subcutaneous gas or. There is some lucency involving the fir st digit metatarsal head which is new from 11/10/2024. No evidence of any acute osseous pathology. Mu ltifocal degeneration changes throughout the joints of the foot with osteophyte formation and joint s pace narrowing. Degeneration changes of the first digit metatarsophalangeal joint with mild joint s pace narrowing and osteophyte formation. Hallux valgus noted. IMPRESSION: 1. Soft tissue swelling of the first digit with lucency of the first metatarsal head. Consider furth er evaluation MRI or three-phase bone scan to exclude osteomyelitis.. 2. No evidence of acute fracture. 3. Moderate degeneration changes throughout the joints of the foot. 4. Hallux valgus. [facility], , 02/10/2025 3:20 PM
[2025-02-10 15:29] LABS: Basophils # (A) 0.07 10*3/uL (0.00-0.10); Basophils % (A) 0.6 %; Eosinophils # (A) 0.08 10*3/uL (0.04-0.35); Eosinophils % (A) 0.7 %; HCT 45.0 % (39.6-50.0); HGB 15.6 g/dL (13.0-17.0); Lymphocytes # (A) 1.50 10*3/uL (0.90-5.00); Lymphocytes % (A) 13.6 %; MCH 31.0 pg (27.0-32.0); MCHC 34.7 g/dL (32.0-37.0); MCV 89.5 fL (80.0-97.0); Monocytes # (A) 0.78 10*3/uL (0.20-1.00); Monocytes % (A) 7.1 %; Neutrophils # (A) 8.51 10*3/uL (1.80-7.70); Neutrophils % (A) 77.4 %; Platelet Count 242 10*3/uL (140-440); RBC 5.03 10*6/uL (4.40-5.60); RDW 14.6 % (11.5-14.5); WBC 11.01 10*3/uL (4.50-10.00)
[2025-02-10 15:44] LABS: ALT 10 U/L (4-49); AST 15 U/L (17-59); African American GFR (CKD) >90 (>60 ml/min/1.73 sqM); Albumin 3.7 g/dL (3.5-5.0); Alkaline Phosphatase 98 U/L (38-126); Anion Gap 11 mmol/L; Blood Urea Nitrogen 10 mg/dL (9-20); Calcium 9.1 mg/dL (8.4-10.2); Carbon Dioxide 25 mmol/L (22-30); Chloride 104 mmol/L (98-107); Glucose 90 mg/dL (74-99); Non-African American GFR(CKD) >90 (>60 ml/min/1.73 sqM); Potassium 3.5 mmol/L (3.5-5.1); Sodium 140 mmol/L (137-145); Total Protein 6.5 g/dL (6.3-8.2)
[2025-02-10] MEDS ORDERED: NALOXONE 0.4 MG/ML 1 ML VIAL IV PRN (18:49)
[2025-02-10] MEDS ORDERED: VANCOMYCIN IV PER PHARMACY 1 EACH MISC MISCELLANE PRN (18:49)
[2025-02-10] MEDS ORDERED: ONDANSETRON 4 MG/2 ML VIAL IVP PRN (18:49)
[2025-02-10] MEDS: SODIUM CHLORIDE 0.9% 1,000 ML IV SCH (19:09)
[2025-02-10] MEDS: VANCOMYCIN 1,500 MG in SODIUM CHLORIDE 0.9% 500 ML 500 ML IVPB STA (20:27)
[2025-02-10] MEDS: HYDROmorphone 1 MG/ML 1 ML SYRINGE IVP PRN (23:48)
[2025-02-11 05:53] LABS: Basophils # (A) 0.06 10*3/uL (0.00-0.10); Basophils % (A) 0.8 %; Eosinophils # (A) 0.14 10*3/uL (0.04-0.35); Eosinophils % (A) 1.8 %; HCT 41.9 % (39.6-50.0); HGB 13.7 g/dL (13.0-17.0); Lymphocytes # (A) 1.48 10*3/uL (0.90-5.00); Lymphocytes % (A) 19.6 %; MCH 29.8 pg (27.0-32.0); MCHC 32.7 g/dL (32.0-37.0); MCV 91.3 fL (80.0-97.0); Monocytes # (A) 0.66 10*3/uL (0.20-1.00); Monocytes % (A) 8.7 %; Neutrophils # (A) 5.17 10*3/uL (1.80-7.70); Neutrophils % (A) 68.3 %; Platelet Count 204 10*3/uL (140-440); RBC 4.59 10*6/uL (4.40-5.60); RDW 14.8 % (11.5-14.5); WBC 7.57 10*3/uL (4.50-10.00)
[2025-02-11 06:18] LABS: ALT 8 U/L (4-49); AST 15 U/L (17-59); African American GFR (CKD) >90 (>60 ml/min/1.73 sqM); Albumin 3.1 g/dL (3.5-5.0); Alkaline Phosphatase 93 U/L (38-126); Anion Gap 9 mmol/L; Blood Urea Nitrogen 12 mg/dL (9-20); Calcium 8.5 mg/dL (8.4-10.2); Carbon Dioxide 26 mmol/L (22-30); Chloride 104 mmol/L (98-107); Glucose 91 mg/dL (74-99); Magnesium 1.0 mg/dL (1.6-2.3); Non-African American GFR(CKD) 87 (>60 ml/min/1.73 sqM); Potassium 3.4 mmol/L (3.5-5.1); Sodium 139 mmol/L (137-145); Total Protein 5.8 g/dL (6.3-8.2)
[2025-02-11] MEDS: VANCOMYCIN 1,500 MG in SODIUM CHLORIDE 0.9% 500 ML 500 ML IVPB SCH (12:36)
[2025-02-11] MEDS ORDERED: FLUTICASONE NASAL 50MCG/SPRAY 16GM BTL EA NOSTRIL PRN (15:57)
--- NOTE | 2025-02-11 17:05 | P.HPIM ---
History of Present Illness H&P Date: 02/11/25 Chief Complaint: Left great toe pain History of present illness; 64-year-old male with a past medical history of PAD, A-fib (on Eliquis 5 mg twice daily), CAD, diastolic heart failure, COPD, diabetes mellitus, hypertension, and history of NH presents with complaints of left great toe pain. Of note patient has relatively recent history of osteomyelitis in left second toe. States yesterday started realized that his left great toe was quite painful, also noticed a blister on it that then ruptured. States at that time he decided come to the ER for further evaluation. On arrival to the ER he got lab work significant for slightly elevated white blood cell count and CRP of 5.2 but otherwise within normal limits. Patient also received a x-ray of the left foot which showed soft tissue swelling of the first digit with lucency of the first metatarsal head. At that point patient was admitted for further workup of left great toe wound. REVIEW OF SYSTEMS: As stated above in HPI. The rest of the 14-point review of systems is negative. PHYSICAL EXAMINATION: GENERAL: The patient is alert and oriented x3, not in any acute distress. Well developed, well nourished. HEENT: Pupils are round and equally reacting to light. EOMI. No scleral icterus. No conjunctival pallor. Normocephalic, atraumatic. CARDIOVASCULAR: S1 and S2 present. No murmurs, rubs, or gallops. PULMONARY: Chest is clear to auscultation b/l, no wheezing or crackles. ABDOMEN: Soft, nontender, nondistended, normoactive bowel sounds. No palpable organomegaly. MUSCULOSKELETAL: No joint swelling or deformity. EXTREMITIES: No cyanosis, clubbing, or pedal edema. Erythema and tenderness appreciated on the anterior aspect of the left great toe with a prominent scab at the knuckle of the great toe, no significant discharge appreciated. Hammertoes appreciated bilaterally. NEUROLOGICAL: Gross neurological examination did not reveal any focal deficits. Assessment and Plan #Left great toe infection: Patient has a history of hammertoes increasing his risk for osteomyelitis, as well as a history of osteomyelitis in the same foot but on the second toe previously. #PAD -Continue Rocephin and vancomycin, day 2 of both - Vascular surgery on consult, appreciate further recommendations - Continue NS 20 cc/h - Ordered MRI of the left foot to rule out osteo - Blood cultures collected #Type 2 diabetes: - Sliding scale - Close glucose control important in the setting of potential osteo #Atrial fibrillation #Hyperlipidemia #Hypertension - Continue home medications F: NS 20 cc/h E: None N: Consistent carbohydrate diet DVT ppx: Eliquis 5 mg GI ppx: None CODE STATUS: Full code Dispo: Pending patient course Al Elizabeth MD PGY-2 FM Dictation was produced using [employer] dictation software. please excuse any gra mmatical, word or spelling errors. Attestation I have seen and examined this patient with my resident , discussed the same with the resident/DUDLEY, and agree with the dictator's assessment and plan as written Dr. Otis vasquez Past Medical History Past Medical History: Atrial Fibrillation, Coronary Artery Disease (CAD), Heart Failure, COPD, Diabetes Mellitus, Eye Disorder, Fibromyalgia, Hypertension, Myocardial Infarction ([place]), Musculoskeletal Disorder, Osteoarthritis (OA), Prostate Disorder, Vascular Disorder Additional Past Medical History / Comment(s): Chronic cough, hx pancreatitis, bilateral glaucoma, neuropathy bilateral feet, poor circulation to legs, varicose veins, RLS, hx BPH, colitis, gastritis, Alvarenga's esophagus, hx Shingles in 2012 with joint pain since, chronic low back pain, DDD. wound to right leg, scabies 06/2023 Last Myocardial Infarction Date:: 09/02/16 History of Any Multi-Drug Resistant Organisms: MRSA Date of last positivie culture/infection: 11/11/24 MDRO Source:: lt2 toe Past Surgical History: Appendectomy, Cardiac Ablation, Heart Catheterization, Joint Replacement, Orthopedic Surgery, Prostate Surgery Additional Past Surgical History / Comment(s): Right knee arthroscopy, right knee replacement, EGD, colonoscopy, TURP, cardioversion. Past Anesthesia/Blood Transfusion Reactions: No Reported Reaction Additional Past Anesthesia/Blood Transfusion Reaction / Comment(s): No hx blood transfusion. Past Psychological History: Anxiety, Depression Additional Psychological History / Comment(s): Pt resides with his sister Ewelina. Smoking Status: Current every day smoker Past Alcohol Use History: Occasional Additional Past Alcohol Use History / Comment(s): Started smoking at age 13, quit 10/2016, started smoking again and now quit just recently 09/2023 Past Drug Use History: None Reported Additional Drug Use History / Comment(s): Hx cocaine use, none in 20-30 years. - Past Family History Father Family Medical History: CVA/TIA, Hypertension Additional Family Medical History / Comment(s): Father at the age of 38yrs from HTN/CVA. He was an alcoholic. Mother Family Medical History: COPD, Diabetes Mellitus Additional Family Medical History / Comment(s): Mother of emphysema at the age of 74 yrs (2003), mom had hx of drinking and smoking. Medications and Allergies Home Medications Medication Instructions Recorded Confirmed Type Montelukast [Singulair] 10 mg PO DAILY 01/12/18 02/10/25 History Tamsulosin [Flomax] 0.4 mg PO DAILY 11/08/21 02/10/25 History rOPINIRole HCL [Requip] 4 mg PO DAILY 11/08/21 02/10/25 History Empagliflozin [Jardiance] 10 mg PO DAILY 04/11/22 02/10/25 History Apixaban [Eliquis] 5 mg PO BID 05/13/22 02/10/25 History Omeprazole [PriLOSEC] 20 mg PO BID 06/27/23 02/10/25 History Latanoprost [Latanoprost 0.005%] 1 drop BOTH EYES HS 07/27/23 02/10/25 History Folic Acid 1 mg PO BID 11/23/23 02/10/25 History Loratadine [Claritin] 10 mg PO DAILY 11/23/23 02/10/25 History Metoprolol Tartrate [Lopressor] 50 mg PO BID 11/23/23 02/10/25 History Atorvastatin [Lipitor] 40 mg PO DAILY 01/20/24 02/10/25 History Fluticasone/Umeclidin/Vilanter 1 puff INHALATION RT-DAILY 06/19/24 02/10/25 History [Trelegy Ellipta 100-62.5-25] Furosemide [Lasix] 20 mg PO BID 11/11/24 02/10/25 History Potassium Chloride [Klor-Con 8] 8 meq PO DAILY 11/11/24 02/10/25 History Spironolactone [Aldactone] 12.5 mg PO DAILY 11/11/24 02/10/25 History Cyclobenzaprine HCl 10 mg PO TID PRN 01/01/25 02/10/25 History allopurinoL [Zyloprim] 300 mg PO DAILY 01/01/25 02/10/25 History Cariprazine HCl [Vraylar] 3 mg PO DAILY 02/10/25 02/10/25 History Ergocalciferol [Vitamin D2 (1250 1,250 mcg PO JULIO 02/10/25 02/10/25 History Mcg = 29912 Iu)] Ferrous Sulfate [Feosol] 325 mg PO DAILY 02/10/25 02/10/25 History Fluticasone Nasal [place] [Flonase 2 spr EA NOSTRIL BID PRN 02/10/25 02/10/25 History Nasal [place]] Vortioxetine Hydrobromide 5 mg PO DAILY 02/10/25 02/10/25 History [Trintellix] hydrOXYzine pamoate [Vistaril] 25 mg PO TID PRN 02/10/25 02/10/25 History Allergies Allergy/AdvReac Type Severity Reaction Status Date / Time amoxicillin trihydrate AdvReac Rapid Verified 02/10/25 20:35 [From Augmentin] Heart Rate/FELT LIKE HE WAS GOING TO PASS OUT potassium clavulanate AdvReac FELT LIKE Verified 02/10/25 20:35 [From Augmentin] HE WAS GOING TO PASS OUT FAST HEARTBEAT" pregabalin [From Lyrica] AdvReac Leg Verified 02/10/25 20:35 swelling Physical Exam Vitals: Vital Signs Temp Pulse Pulse Resp BP BP Pulse Ox 02/11/25 07:00 98.4 F 63 16 139/78 94 L 02/11/25 02:00 98.6 F 53 L 16 153/77 98 02/10/25 23:34 53 L 16 135/96 96 02/10/25 22:44 90 18 124/77 96 02/10/25 19:25 65 18 133/83 98 02/10/25 18:40 98.4 F 02/10/25 17:52 98.2 F 66 20 148/79 02/10/25 17:48 98.2 F 66 20 148/79 99 02/10/25 14:01 97.8 F 60 16 138/71 97 Intake and Output 02/10/25 02/11/25 02/11/25 22:59 06:59 14:59 Other: Voiding Method Toilet Urinal # Voids 1 Weight 84.822 kg Results CBC & Chem 7: 02/12/25 07:11 02/12/25 07:11 Labs: Abnormal Lab Results - Last 24 Hours (Table) 02/10/25 02/10/25 02/11/25 Range/Units 15:20 15:20 05:23 WBC 11.01 H (4.50-10.00) 10*3/uL Immature Gran # 0.07 H 0.06 H (0.00-0.04) 10*3/uL Neutrophils # 8.51 H (1.80-7.70) 10*3/uL Potassium (3.5-5.1) mmol/L Magnesium (1.6-2.3) mg/dL AST 15 L (17-59) U/L C-Reactive Protein 5.2 H (<1.0) mg/dL Total Protein (6.3-8.2) g/dL Albumin (3.5-5.0) g/dL 02/11/25 Range/Units 05:23 WBC (4.50-10.00) 10*3/uL Immature Gran # (0.00-0.04) 10*3/uL Neutrophils # (1.80-7.70) 10*3/uL Potassium 3.4 L (3.5-5.1) mmol/L Magnesium 1.0 L (1.6-2.3) mg/dL AST 15 L (17-59) U/L C-Reactive Protein (<1.0) mg/dL Total Protein 5.8 L (6.3-8.2) g/dL Albumin 3.1 L (3.5-5.0) g/dL Thrombosis Risk Factor Assmnt - Choose All That Apply Any of the Below Risk Factors Present?: Yes Each Factor Represents 1 point: Abnormal pulmonary function (COPD) Other Risk Factors: Yes Each Risk Factor Represents 2 Points: Age 61-74 years Other congenital or acquired thrombophilia - If yes, enter type in comment: No Thrombosis Risk Factor Assessment Total Risk Factor Score: 3 Thrombosis Risk Factor Assessment Level: Moderate Risk
[2025-02-11 17:23] LABS: Glucose,Whole Blood 129 mg/dL (70-110)
[2025-02-11] MEDS: INSULIN LISPRO (HumaLOG) 100 UNIT/ML 10 mL VL SQ SCH (17:23)
[2025-02-11 21:00] LABS: Glucose,Whole Blood 105 mg/dL (70-110)
[2025-02-11] MEDS: APIXABAN 5 MG TAB PO SCH (21:02)
[2025-02-11] MEDS: METOPROLOL TARTRATE 50 MG TAB PO SCH (21:02)
--- NOTE | 2025-02-11 22:27 | P.CONS ---
History of Present Illness - Reason for Consult Consult date: 02/11/25 Left big toe diabetic foot infection Requesting physician: Otis Marie - Chief Complaint Left big toe swelling redness and drainage x 1 day - History of Present Illness Patient is a 64-year-old male with a past medical history significant for Atrial Fibrillation, Coronary Artery Disease (CAD), Heart Failure, COPD, Diabetes Mellitus, Eye Disorder, Fibromyalgia, Hypertension, Myocardial Infarction ([place]), Musculoskeletal Disorder, Osteoarthritis (OA), Prostate Diso rder, Vascular Disorder recent history of left second toe diabetic foot infection with osteomyelitis with MRSA for the patient has completed antibiotic therapy patient now presenting to the hospital concerning for left big toe with a blister and started draining some pus the morning of presentation the hospital patient was noticed redness streaking up his foot has been complaining of some dull aching to sharp pain moderate intense without radiation patient denies high-grade fever or any chills on presentation to the hospital the patient was afebrile and no fever have been called subsequently patient was not tachycardic hypotensive or hypoxic patient did have multiple 11.01 creatinine 0.85 el ectrolytes has been normal CRP is 5.2 blood cultures obtained which are currently pending patient did have x-ray of the foot soft tissue swelling of the first digit with lucency of the first metatarsal head consider further evaluation patient was started on vancomycin infectious disease was consulted for further management of antibiotic therapy vascular surgery already consulted from the ER Review of Systems Positive point and negatives has been mentioned in the HPI, complete review of systems was performed and all other systems are negative Past Medical History Past Medical History: Atrial Fibrillation, Coronary Artery Disease (CAD), Heart Failure, COPD, Diabetes Mellitus, Eye Disorder, Fibromyalgia, Hypertension, Myocardial Infarction ([place]), Musculoskeletal Disorder, Osteoarthritis (OA), Prostate Disorder, Vascular Disorder Additional Past Medical History / Comment(s): Chronic cough, hx pancreatitis, bilateral glaucoma, neuropathy bilateral feet, poor circulation to legs, varicose veins, RLS, hx BPH, colitis, gastritis, Alvarenga's esophagus, hx Shingles in 2012 with joint pain since, chronic low back pain, DDD. wound to right leg, scabies 06/2023 Last Myocardial Infarction Date:: 09/02/16 History of Any Multi-Drug Resistant Organisms: MRSA Year Discovered:: 11/11/24 MDRO Source:: lt2 toe Past Surgical History: Appendectomy, Cardiac Ablation, Heart Catheterization, Joint Replacement, Orthopedic Surgery, Prostate Surgery Additional Past Surgical History / Comment(s): Right knee arthroscopy, right knee replacement, EGD, colonoscopy, TURP, cardioversion. Past Anesthesia/Blood Transfusion Reactions: No Reported Reaction Additional Past Anesthesia/Blood Transfusion Reaction / Comm: No hx blood transfusion. Past Psychological History: Anxiety, Depression Additional Psychological History / Comment(s): Pt resides with his sister Anupam [place] Smoking Status: Current every day smoker Past Alcohol Use History: Occasional Additional Past Alcohol Use History / Comment(s): Started smoking at age 13, quit 10/2016, started smoking again and now quit just recently 09/2023 Past Drug Use History: None Reported Additional Drug Use History / Comment(s): Hx cocaine use, none in 20-30 years. - Past Family History Father Family Medical History: CVA/TIA, Hypertension Additional Family Medical History / Comment(s): Father at the age of 38yrs from HTN/CVA. He was an alcoholic. Mother Family Medical History: COPD, Diabetes Mellitus Additional Family Medical History / Comment(s): Mother of emphysema at the age of 74 yrs (2003), mom had hx of drinking and smoking. Medications and Allergies Home Medications Medication Instructions Recorded Confirmed Type Montelukast [Singulair] 10 mg PO DAILY 01/12/18 02/10/25 History Tamsulosin [Flomax] 0.4 mg PO DAILY 11/08/21 02/10/25 History rOPINIRole HCL [Requip] 4 mg PO DAILY 11/08/21 02/10/25 History Empagliflozin [Jardiance] 10 mg PO DAILY 04/11/22 02/10/25 History Apixaban [Eliquis] 5 mg PO BID 05/13/22 02/10/25 History Omeprazole [PriLOSEC] 20 mg PO BID 06/27/23 02/10/25 History Latanoprost [Latanoprost 0.005%] 1 drop BOTH EYES HS 07/27/23 02/10/25 History Folic Acid 1 mg PO BID 11/23/23 02/10/25 History Loratadine [Claritin] 10 mg PO DAILY 11/23/23 02/10/25 History Metoprolol Tartrate [Lopressor] 50 mg PO BID 11/23/23 02/10/25 History Atorvastatin [Lipitor] 40 mg PO DAILY 01/20/24 02/10/25 History Fluticasone/Umeclidin/Vilanter 1 puff INHALATION RT-DAILY 06/19/24 02/10/25 History [Trelegy Ellipta 100-62.5-25] Furosemide [Lasix] 20 mg PO BID 11/11/24 02/10/25 History Potassium Chloride [Klor-Con 8] 8 meq PO DAILY 11/11/24 02/10/25 History Spironolactone [Aldactone] 12.5 mg PO DAILY 11/11/24 02/10/25 History Cyclobenzaprine HCl 10 mg PO TID PRN 01/01/25 02/10/25 History allopurinoL [Zyloprim] 300 mg PO DAILY 01/01/25 02/10/25 History Cariprazine HCl [Vraylar] 3 mg PO DAILY 02/10/25 02/10/25 History Ergocalciferol [Vitamin D2 (1250 1,250 mcg PO JULIO 02/10/25 02/10/25 History Mcg = 65661 Iu)] Ferrous Sulfate [Feosol] 325 mg PO DAILY 02/10/25 02/10/25 History Fluticasone Nasal [place] [Flonase 2 spr EA NOSTRIL BID PRN 02/10/25 02/10/25 History Nasal [place]] Vortioxetine Hydrobromide 5 mg PO DAILY 02/10/25 02/10/25 History [Trintellix] hydrOXYzine pamoate [Vistaril] 25 mg PO TID PRN 02/10/25 02/10/25 History Allergies Allergy/AdvReac Type Severity Reaction Status Date / Time amoxicillin trihydrate AdvReac Rapid Verified 02/10/25 20:35 [From Augmentin] Heart Rate/FELT LIKE HE WAS GOING TO PASS OUT potassium clavulanate AdvReac FELT LIKE Verified 02/10/25 20:35 [From Augmentin] HE WAS GOING TO PASS OUT FAST HEARTBEAT" pregabalin [From Lyrica] AdvReac Leg Verified 02/10/25 20:35 swelling Physical Exam Vitals: Vital Signs Temp Pulse Pulse Pulse Resp BP BP 02/11/25 12:59 98.0 F 75 16 163/75 02/11/25 07:00 98.4 F 63 16 139/78 02/11/25 02:00 98.6 F 53 L 16 153/77 02/10/25 23:34 53 L 16 135/96 02/10/25 22:44 90 18 124/77 02/10/25 19:25 65 18 133/83 02/10/25 18:40 98.4 F 02/10/25 17:52 98.2 F 66 20 148/79 02/10/25 17:48 98.2 F 66 20 148/79 Pulse Ox 02/11/25 12:59 95 02/11/25 07:00 94 L 02/11/25 02:00 98 02/10/25 23:34 96 02/10/25 22:44 96 02/10/25 19:25 98 02/10/25 18:40 02/10/25 17:52 02/10/25 17:48 99 Intake and Output 02/10/25 02/11/25 02/11/25 22:59 06:59 14:59 Other: Voiding Method Toilet Urinal # Voids 1 Weight 84.822 kg GENERAL DESCRIPTION: Middle-age male lying in bed, no distress. No tachypnea or accessory muscle of respiration use. HEENT: Shows Pallor , no scleral icterus. Oral mucous membrane is dry. No pharyngeal erythema or thrush NECK: Trachea central, no thyromegaly. LUNGS: Unlabored breathing. Coarse breath sounds bilaterally HEART: S1, S2, regular rate and rhythm. No loud murmur ABDOMEN: Soft, no tenderness , guarding or rigidity, no organomegaly EXTREMITIES: Left big toe did have a bunion deformity with a blister on the medial aspect, no purulent drainage was noticed SKIN: No rash, no masses palpable. NEUROLOGICAL: The patient is awake, alert, oriented x3, mood and affect normal. Results CBC & Chem 7: 02/11/25 05:23 02/11/25 05:23 Labs: Abnormal Lab Results - Last 24 Hours (Table) 02/10/25 02/10/25 02/11/25 Range/Units 15:20 15:20 05:23 WBC 11.01 H (4.50-10.00) 10*3/uL Immature Gran # 0.07 H 0.06 H (0.00-0.04) 10*3/uL Neutrophils # 8.51 H (1.80-7.70) 10*3/uL Potassium (3.5-5.1) mmol/L Magnesium (1.6-2.3) mg/dL AST 15 L (17-59) U/L C-Reactive Protein 5.2 H (<1.0) mg/dL Total Protein (6.3-8.2) g/dL Albumin (3.5-5.0) g/dL 02/11/25 Range/Units 05:23 WBC (4.50-10.00) 10*3/uL Immature Gran # (0.00-0.04) 10*3/uL Neutrophils # (1.80-7.70) 10*3/uL Potassium 3.4 L (3.5-5.1) mmol/L Magnesium 1.0 L (1.6-2.3) mg/dL AST 15 L (17-59) U/L C-Reactive Protein (<1.0) mg/dL Total Protein 5.8 L (6.3-8.2) g/dL Albumin 3.1 L (3.5-5.0) g/dL Assessment and Plan (1) Diabetic infection of left foot Current Visit: Yes Status: Acute Code(s): E11.628 - TYPE 2 DIABETES MELLITUS WITH OTHER SKIN COMPLICATIONS; L08.9 - LOCAL INFECTION OF THE SKIN AND SUBCUTANEOUS TISSUE, UNSP SNOMED Code(s): 087040535 (2) Blister of great toe, left, infected Current Visit: Yes Status: Acute Code(s): S90.422A - BLISTER (NONTHERMAL), LEFT GREAT TOE, INITIAL ENCOUNTER; L08.9 - LOCAL INFECTION OF THE SKIN AND SUBCUTANEOUS TISSUE, UNSP SNOMED Code(s): 33491020844361117 (3) Leukocytosis Current Visit: No Status: Acute Code(s): D72.829 - ELEVATED WHITE BLOOD CELL COUNT, UNSPECIFIED SNOMED Code(s): 287953269 (4) Penicillin allergy Current Visit: No Status: Acute Code(s): Z88.0 - ALLERGY STATUS TO PENICILLIN SNOMED Code(s): 22288768 Plan: 1patient presented to hospital with left big toe blister also with some purulent drainage concern for left big toe diabetic foot infection in this pa tient who did have a bunion deformity did have abnormal x-ray with a question of possible osteomyelitis. 2await vascular surgery evaluation for possible debridement and deep culture. 3check inflammatory markers. 4patient will be treated with vancomycin pharmacy to dose of Rocephin while waiting for the workup to be completed We will follow on clinical condition and cultures to further adjust medication if needed Thank you for this consultation we will follow the patient along with you Dictation was produced using [employer] dictation software. please excuse any grammatical, word or spelling errors. Time with Patient: Greater than 30
[2025-02-12 05:59] LABS: Glucose,Whole Blood 106 mg/dL (70-110)
[2025-02-12 07:37] LABS: Basophils # (A) 0.08 10*3/uL (0.00-0.10); Basophils % (A) 1.1 %; Eosinophils # (A) 0.19 10*3/uL (0.04-0.35); Eosinophils % (A) 2.7 %; HCT 39.9 % (39.6-50.0); HGB 13.2 g/dL (13.0-17.0); Lymphocytes # (A) 1.28 10*3/uL (0.90-5.00); Lymphocytes % (A) 18.2 %; MCH 30.6 pg (27.0-32.0); MCHC 33.1 g/dL (32.0-37.0); MCV 92.6 fL (80.0-97.0); Monocytes # (A) 0.56 10*3/uL (0.20-1.00); Monocytes % (A) 8.0 %; Neutrophils # (A) 4.89 10*3/uL (1.80-7.70); Neutrophils % (A) 69.4 %; Platelet Count 199 10*3/uL (140-440); RBC 4.31 10*6/uL (4.40-5.60); RDW 14.7 % (11.5-14.5); WBC 7.04 10*3/uL (4.50-10.00)
[2025-02-12 08:02] LABS: African American GFR (CKD) >90 (>60 ml/min/1.73 sqM); Anion Gap 5 mmol/L; Blood Urea Nitrogen 14 mg/dL (9-20); Calcium 8.5 mg/dL (8.4-10.2); Carbon Dioxide 23 mmol/L (22-30); Chloride 111 mmol/L (98-107); Glucose 102 mg/dL (74-99); Non-African American GFR(CKD) >90 (>60 ml/min/1.73 sqM); Potassium 3.8 mmol/L (3.5-5.1); Sodium 139 mmol/L (137-145)
[2025-02-12] MEDS: SPIRONOLACTONE 25 MG TAB PO SCH (08:35)
[2025-02-12] MEDS: MONTELUKAST 10 MG TAB PO SCH (08:35)
[2025-02-12] MEDS: ATORVASTATIN 40 MG TAB PO SCH (08:35)
[2025-02-12] MEDS: PATIENT'S OWN (Cariprazine Hcl [Vraylar] 3 MG Capsule) PO SCH (08:38)
[2025-02-12 11:36] LABS: Glucose,Whole Blood 98 mg/dL (70-110)
--- NOTE | 2025-02-12 12:44 | P.PN ---
Subjective 02/11 Chief Complaint: Left great toe pain History of present illness; 64-year-old male with a past medical history of PAD, A-fib (on Eliquis 5 mg twice daily), CAD, diastolic heart failure, COPD, diabetes mellitus, hypertension, and history of [place] presents with complaints of left great toe pain. Of note patient has relatively recent history of o steomyelitis in left second toe. States yesterday started realized that his left great toe was quite painful, also noticed a blister on it that then ruptured. States at that time he decided come to the ER for further evaluation. On arrival to the ER he got lab work significant for slightly elevated white blood cell count and CRP of 5.2 but otherwise within normal limits. Patient also received a x-ray of the left foot which showed soft tissue swelling of the first digit with lucency of the first metatarsal head. At that point patient was admitted for further workup of left great toe wound. 02/12 Pt is feeling better than on admission, pain is well controlled. He denies fever, chills, shortness of breath. Eating well. REVIEW OF SYSTEMS: As stated above in HPI. The rest of the 14-point review of systems is negative. PHYSICAL EXAMINATION: GENERAL: The patient is alert and oriented x3, not in any acute distress. Well developed, well nourished. HEENT: Pupils are round and equally reacting to light. EOMI. No scleral icterus. No conjunctival pallor. Normocephalic, atraumatic. CARDIOVASCULAR: S1 and S2 present. No murmurs, rubs, or gallops. PULMONARY: Chest is clear to auscultation b/l, no wheezing or crackles. ABDOMEN: Soft, nontender, nondistended, normoactive bowel sounds. No palpable organomegaly. MUSCULOSKELETAL: No joint swelling or deformity. EXTREMITIES: No cyanosis, clubbing, or pedal edema. Erythema and tenderness appreciated on the anterior aspect of the left great toe with a prominent scab at the knuckle of the great toe, no significant discharge appreciated. Hammertoes appreciated bilaterally NEUROLOGICAL: Gross neurological examination did not reveal any focal deficits. Assessment and Plan #Left great toe infection: Patient has a history of hammertoes increasing his risk for osteomyelitis, as well as a history of osteomyelitis in the same foot but on the second toe previously. #PAD -Continue Rocephin and vancomycin, day 2 of both - Vascular surgery on consult, appreciate further recommendations - Continue NS 20 cc/h - Ordered MRI of the left foot to rule out osteo - Blood cultures collected #Type 2 diabetes: - Sliding scale - Close glucose control important in the setting of potential osteo #Atrial fibrillation #Hyperlipidemia #Hypertension - Continue home medications Attestation I have seen and examined this patient with my resident , discussed the same with the resident/DUDLEY, and agree with the dictator's assessment and plan as written Dr. Otis vasquez Objective - Vital Signs Vital signs: Vital Signs Temp 97.8 F 02/12/25 06:54 Pulse 65 02/12/25 06:54 Resp 17 02/12/25 01:07 BP 161/74 02/12/25 06:54 Pulse Ox 97 02/12/25 06:54 FiO2 Intake & Output 02/11/25 02/12/25 02/12/25 18:59 06:59 18:59 Intake Total 620 Output Total 350 600 Balance 270 -600 Intake: Intake, IV Titration 620 Amount Sodium Chloride 0.9% 1, 120 000 ml @ 20 mls/hr IV . Q24H [facility] Rx#:[id number] Vancomycin 1,500 mg In 500 Sodium Chloride 0.9% 500 ml 500 ml @ 167 mls/hr IVPB Q16H [facility] Rx#: [id number] Output: Urine 350 600 Other: Voiding Method Urinal # Voids 100 - Labs CBC & Chem 7: 02/12/25 07:11 02/13/25 08:24 Labs: Abnormal Lab Results - Last 24 Hours (Table) 02/11/25 02/12/25 02/12/25 Range/Units 17:21 07:11 07:11 RBC 4.31 L (4.40-5.60) 10*6/uL Chloride 111 H (98-107) mmol/L Glucose 102 H (74-99) mg/dL POC Glucose (mg/dL) 129 H (70-110) mg/dL Microbiology - Last 24 Hours (Table) 02/10/25 15:20 Blood Culture - Preliminary Blood
--- NOTE | 2025-02-12 16:45 | P.GSCN ---
History of Present Illness History of present illness: 64-year-old gentleman patient is well-known to me in the past came to the emergency room with history of blister on the left foot that aspect of the big toe of trauma Medical history history of diabetes, coronary disease, history of A-fib, Neck is examination neck is supple without bruits. Chest few crackles lung bases. Second sound present abdomen soft nontender Vascular femorals are 1+ bilateral big toe is small superficial blister with drainage of pus with deep culture in place silver dressing applied patient is under care of disease IV antibiotic dressing will be changed every other day follow-up with Past Medical History Past Medical History: Atrial Fibrillation, Coronary Artery Disease (CAD), Heart Failure, COPD, Diabetes Mellitus, Eye Disorder, Fibromyalgia, Hypertension, Myocardial Infarction ([place]), Musculoskeletal Disorder, Osteoarthritis (OA), Prostate Disorder, Vascular Disorder Additional Past Medical History / Comment(s): Chronic cough, hx pancreatitis, bilateral glaucoma, neuropathy bilateral feet, poor circulation to legs, varicose veins, RLS, hx BPH, colitis, gastritis, Alvarenga's esophagus, hx Shingles in 2012 with joint pain since, chronic low back pain, DDD. wound to right leg, scabies 06/2023 Last Myocardial Infarction Date:: 09/02/16 History of Any Multi-Drug Resistant Organisms: MRSA Year Discovered:: 11/11/24 MDRO Source:: lt2 toe Past Surgical History: Appendectomy, Cardiac Ablation, Heart Catheterization, Joint Replacement, Orthopedic Surgery, Prostate Surgery Additional Past Surgical History / Comment(s): Right knee arthroscopy, right knee replacement, EGD, colonoscopy, TURP, cardioversion. Past Anesthesia/Blood Transfusion Reactions: No Reported Reaction Additional Past Anesthesia/Blood Transfusion Reaction / Comm: No hx blood transfusion. Past Psychological History: Anxiety, Depression Additional Psychological History / Comment(s): Pt resides with his sister Ewelina. Smoking Status: Current every day smoker Past Alcohol Use History: Occasional Additional Past Alcohol Use History / Comment(s): Started smoking at age 13, quit 10/2016, started smoking again and now quit just recently 09/2023 Past Drug Use History: None Reported Additional Drug Use History / Comment(s): Hx cocaine use, none in 20-30 years. - Past Family History Father Family Medical History: CVA/TIA, Hypertension Additional Family Medical History / Comment(s): Father at the age of 38yrs from HTN/CVA. He was an alcoholic. Mother Family Medical History: COPD, Diabetes Mellitus Additional Family Medical History / Comment(s): Mother of emphysema at the age of 74 yrs (2003), mom had hx of drinking and smoking. Medications and Allergies Home Medications Medication Instructions Recorded Confirmed Type Montelukast [Singulair] 10 mg PO DAILY 01/12/18 02/10/25 History Tamsulosin [Flomax] 0.4 mg PO DAILY 11/08/21 02/10/25 History rOPINIRole HCL [Requip] 4 mg PO DAILY 11/08/21 02/10/25 History Empagliflozin [Jardiance] 10 mg PO DAILY 04/11/22 02/10/25 History Apixaban [Eliquis] 5 mg PO BID 05/13/22 02/10/25 History Omeprazole [PriLOSEC] 20 mg PO BID 06/27/23 02/10/25 History Latanoprost [Latanoprost 0.005%] 1 drop BOTH EYES HS 07/27/23 02/10/25 History Folic Acid 1 mg PO BID 11/23/23 02/10/25 History Loratadine [Claritin] 10 mg PO DAILY 11/23/23 02/10/25 History Metoprolol Tartrate [Lopressor] 50 mg PO BID 11/23/23 02/10/25 History Atorvastatin [Lipitor] 40 mg PO DAILY 01/20/24 02/10/25 History Fluticasone/Umeclidin/Vilanter 1 puff INHALATION RT-DAILY 06/19/24 02/10/25 History [Trelegy Ellipta 100-62.5-25] Furosemide [Lasix] 20 mg PO BID 11/11/24 02/10/25 History Potassium Chloride [Klor-Con 8] 8 meq PO DAILY 11/11/24 02/10/25 History Spironolactone [Aldactone] 12.5 mg PO DAILY 11/11/24 02/10/25 History Cyclobenzaprine HCl 10 mg PO TID PRN 01/01/25 02/10/25 History allopurinoL [Zyloprim] 300 mg PO DAILY 01/01/25 02/10/25 History Cariprazine HCl [Vraylar] 3 mg PO DAILY 02/10/25 02/10/25 History Ergocalciferol [Vitamin D2 (1250 1,250 mcg PO JULIO 02/10/25 02/10/25 History Mcg = 83087 Iu)] Ferrous Sulfate [Feosol] 325 mg PO DAILY 02/10/25 02/10/25 History Fluticasone Nasal [place] [Flonase 2 spr EA NOSTRIL BID PRN 02/10/25 02/10/25 History Nasal [place]] Vortioxetine Hydrobromide 5 mg PO DAILY 02/10/25 02/10/25 History [Trintellix] hydrOXYzine pamoate [Vistaril] 25 mg PO TID PRN 02/10/25 02/10/25 History Allergies Allergy/AdvReac Type Severity Reaction Status Date / Time amoxicillin trihydrate AdvReac Rapid Verified 02/10/25 20:35 [From Augmentin] Heart Rate/FELT LIKE HE WAS GOING TO PASS OUT potassium clavulanate AdvReac FELT LIKE Verified 02/10/25 20:35 [From Augmentin] HE WAS GOING TO PASS OUT FAST HEARTBEAT" pregabalin [From Lyrica] AdvReac Leg Verified 02/10/25 20:35 swelling Surgical - Exam Vital Signs Temp Pulse Resp BP Pulse Ox 97.8 F 60 16 138/71 97 02/10/25 14:01 02/10/25 14:01 02/10/25 14:01 02/10/25 14:01 02/10/25 14:01 Results - Labs 02/12/25 07:11 02/12/25 07:11 Abnormal Lab Results - Last 24 Hours (Table) 02/11/25 02/12/25 02/12/25 Range/Units 17:21 07:11 07:11 RBC 4.31 L (4.40-5.60) 10*6/uL Chloride 111 H (98-107) mmol/L Glucose 102 H (74-99) mg/dL POC Glucose (mg/dL) 129 H (70-110) mg/dL Microbiology - Last 24 Hours (Table) 02/10/25 15:20 Blood Culture - Preliminary Blood Diabetes panel 02/12/25 Range/Units 07:11 Sodium 139 (137-145) mmol/L Potassium 3.8 (3.5-5.1) mmol/L Chloride 111 H (98-107) mmol/L Carbon Dioxide 23 (22-30) mmol/L BUN 14 (9-20) mg/dL Creatinine 0.76 (0.66-1.25) mg/dL Glucose 102 H (74-99) mg/dL Calcium 8.5 (8.4-10.2) mg/dL Calcium panel 02/12/25 Range/Units 07:11 Calcium 8.5 (8.4-10.2) mg/dL Pituitary panel 02/12/25 Range/Units 07:11 Sodium 139 (137-145) mmol/L Potassium 3.8 (3.5-5.1) mmol/L Chloride 111 H (98-107) mmol/L Carbon Dioxide 23 (22-30) mmol/L BUN 14 (9-20) mg/dL Creatinine 0.76 (0.66-1.25) mg/dL Glucose 102 H (74-99) mg/dL Calcium 8.5 (8.4-10.2) mg/dL Adrenal panel 02/12/25 Range/Units 07:11 Sodium 139 (137-145) mmol/L Potassium 3.8 (3.5-5.1) mmol/L Chloride 111 H (98-107) mmol/L Carbon Dioxide 23 (22-30) mmol/L BUN 14 (9-20) mg/dL Creatinine 0.76 (0.66-1.25) mg/dL Glucose 102 H (74-99) mg/dL Calcium 8.5 (8.4-10.2) mg/dL
[2025-02-12 16:50] LABS: Glucose,Whole Blood 110 mg/dL (70-110)
[2025-02-12 19:59] LABS: Glucose,Whole Blood 104 mg/dL (70-110)
[2025-02-12] MEDS: VANCOMYCIN TROUGH DUE 1 EACH MISC MISCELLANE ONE (20:00)
[2025-02-13 06:21] LABS: Glucose,Whole Blood 106 mg/dL (70-110)
--- NOTE | 2025-02-13 07:40 | MR ---
EXAMINATION TYPE: MR foot LT wo/w con DATE OF EXAM: 02/12/2025 1:08 PM COMPARISON: Radiographs 02/10/2025 and 11/10/2024 CLINICAL INDICATION: Male, 64 years old with history of L great toe pain, suspect osteo, Left great t oe pain, evaluate for osteo., TECHNIQUE: Multiplanar, multisequence images of the left foot were obtained before and after administ ration of 8.5 mL intravenous Gadobutrol gadolinium contrast. IV Contrast: 8.5 cc Gadobutrol (None if empty) FINDINGS: There is a nonenhancing cutaneous lesion along the dorsum of the midfoot measuring 1.9 cm wide by 2.7 cm long by 6 mm thick. Etiology unclear. Generalized cutaneous soft tissue and muscular edema probably related to neuropathic change. Hammerto es. There is hallux valgus deformity with bunion and mild to moderate degenerative change first MTP joint . There is marrow replacement involving the shaft and tuft of the second toe with corresponding enhance ment but only minimal increased fluid signal here. No other suspicious bone marrow replacement is seen with particular attention to the great toe and fi rst metatarsal head. Multiple areas of bone infarct are present including the distal tibial metadiaphysis measuring 1.8 cm , posterior calcaneus measuring 2.7 cm, talar dome measuring 4.1 cm, subchondral talar head measuring 1.2 cm, mid calcaneus subjacent to the posterior subtalar joint measuring 2.0 cm, anterior calcaneus measuring 1.4 cm, and navicular measuring 1.1 cm. No acute fracture is seen. IMPRESSION: 1. Hallux valgus deformity with mild to moderate first MTP joint OA. No evidence for a contiguous ost eomyelitis involving the great toe, particular attention to the metatarsal head in the region of ques tioned radiographic abnormality. 2. Abnormal signal involving the shaft and tuft of the second distal phalanx with corresponding enhan cement but only minimal associated edema. Consider a subacute healing fracture or chronic osteomyelit is. The lack of significant osseous edema argues against an acute osteomyelitis here. Correlate for a ny overlying ulcer and consider close radiographic follow-up. 3. Generalized edema along with hammertoes probably neuropathic change relating to underlying diabete s. In addition, multiple chronic bone infarcts are present at the ankle and hindfoot. 4. A plaque-like, nonenhancing and low signal cutaneous lesion along the dorsum of the midfoot measur ing 2.7 x 1.9 x 0.6 cm. Exact etiology unclear. Scar tissue or large blood blister are a couple possi bilities. Clinically correlate. [facility], , 02/13/2025 7:37 AM
--- NOTE | 2025-02-13 08:39 | P.PN ---
Subjective Progress Note Date: 02/12/25 Principal diagnosis: Reason for follow-up is left big toe diabetic foot infection Patient is a 64-year-old male with a past medical history significant for Atrial Fibrillation, Coronary Artery Disease (CAD), Heart Failure, COPD, Diabetes Mellitus, Eye Disorder, Fibromyalgia, Hypertension, Myocardial Infarction ([place]), Musculoskeletal Disorder, Osteoarthritis (OA), Prostate Disorder, Vascular Disorder recent history of left second toe diabetic foot infection with osteomyelitis with MRSA presented to hospital with a left big toe medial side blister swelling and redness concerning for infection. On today's evaluation that is 02/12/2025,the patient denies any fever or any chills, patient is breathing comfortably on room air, the patient denies chest pain shortness of breath and no significant cough, patient denies abdominal pain, no nausea vomiting or diarrhea. Patient denies any worsening pain to left big toe or drainage. Patient white count is 7.04, creatinine 0.76 cultures currently pending Objective - Vital Signs Vital signs: Vital Signs Temp 97.8 F 02/12/25 06:54 Pulse 65 02/12/25 06:54 Resp 17 02/12/25 01:07 BP 161/74 02/12/25 06:54 Pulse Ox 97 02/12/25 06:54 FiO2 Intake & Output 02/11/25 02/12/25 02/12/25 18:59 06:59 18:59 Intake Total 620 Output Total 350 600 Balance 270 -600 Intake: Intake, IV Titration 620 Amount Sodium Chloride 0.9% 1, 120 000 ml @ 20 mls/hr IV . Q24H [facility] Rx#:[id number] Vancomycin 1,500 mg In 500 Sodium Chloride 0.9% 500 ml 500 ml @ 167 mls/hr IVPB Q16H [facility] Rx#: [id number] Output: Urine 350 600 Other: Voiding Method Urinal Urinal # Voids 100 - Exam GENERAL DESCRIPTION: Middle-age male lying in bed in no distress RESPIRATORY SYSTEM: Unlabored breathing , decreased breath sounds at bases HEART: S1 S2 regular rate and rhythm , ABDOMEN: Soft , no tenderness EXTREMITIES: Left big toe medial side wound - Labs CBC & Chem 7: 02/12/25 07:11 02/12/25 07:11 Labs: Abnormal Lab Results - Last 24 Hours (Table) 02/11/25 02/12/25 02/12/25 Range/Units 17:21 07:11 07:11 RBC 4.31 L (4.40-5.60) 10*6/uL Chloride 111 H (98-107) mmol/L Glucose 102 H (74-99) mg/dL POC Glucose (mg/dL) 129 H (70-110) mg/dL Microbiology - Last 24 Hours (Table) 02/10/25 15:20 Blood Culture - Preliminary Blood Assessment and Plan (1) Diabetic infection of left foot Current Visit: Yes Status: Acute Code(s): E11.628 - TYPE 2 DIABETES MELLITUS WITH OTHER SKIN COMPLICATIONS; L08.9 - LOCAL INFECTION OF THE SKIN AND SUBCUTANEOUS TISSUE, UNSP SNOMED Code(s): 498950694 (2) Blister of great toe, left, infected Current Visit: Yes Status: Acute Code(s): S90.422A - BLISTER (NONTHERMAL), LEFT GREAT TOE, INITIAL ENCOUNTER; L08.9 - LOCAL INFECTION OF THE SKIN AND SUBCUTANEOUS TISSUE, UNSP SNOMED Code(s): 57280088327198067 (3) Leukocytosis Current Visit: No Status: Acute Code(s): D72.829 - ELEVATED WHITE BLOOD CELL COUNT, UNSPECIFIED SNOMED Code(s): 038063453 (4) Penicillin allergy Current Visit: No Status: Acute Code(s): Z88.0 - ALLERGY STATUS TO PENICILLIN SNOMED Code(s): 10389446 Plan: 1patient presented to hospital with left big toe blister also with some purulent drainage concern for left big toe diabetic foot infection in this patient who did have a bunion deformity did have abnormal x-ray with a question of possible osteomyelitis. 2await vascular surgery evaluation for possible debridement and deep culture. 3patient is afebrile white count is normalized we will treat with vancomycin pharmacy to dose of Rocephin while waiting for the workup to be completed Dictation was produced using [employer] dictation software. please excuse any grammatical, word or spelling errors.
[2025-02-13 09:31] LABS: African American GFR (CKD) >90 (>60 ml/min/1.73 sqM); Non-African American GFR(CKD) >90 (>60 ml/min/1.73 sqM)
[2025-02-13] MEDS: VANCOMYCIN 1,750 MG in SODIUM CHLORIDE 0.9% 500 ML 500 ML IVPB SCH (09:40)
[2025-02-13 11:58] LABS: Glucose,Whole Blood 98 mg/dL (70-110)
[2025-02-13] MEDS ORDERED: CYCLOBENZAPRINE 10 MG TAB PO PRN (14:19)
--- NOTE | 2025-02-13 14:24 | P.PN ---
Progress Note - Text Progress Note Date: 02/13/25 History of present illness; 64-year-old male with a past medical history of PAD, A-fib (on Eliquis 5 mg twice daily), CAD, diastolic heart failure, COPD, diabetes mellitus, hypertension, and history of MA presents with complaints of left great toe pain. Of note patient has relatively recent history of osteomyelitis in left second toe. States yesterday started realized that his left great toe was quite painful, also noticed a blister on it that then ruptured. States at that time he decided come to the ER for further evaluation. On arrival to the ER he got lab work significant for slightly elevated white blood cell count and CRP of 5.2 but otherwise within normal limits. Patient also received a x-ray of the left foot which showed soft tissue swelling of the first digit with lucency of the first metatarsal head. At that point patient was admitted for further workup of left great toe wound. February 13 Pleasant [address] Chavez. Chronic stable medical conditions include COPD, fibromyalgia, hypertension, osteoarthritis, chronic pancreatitis from alcoholism, peripheral neuropathy varicose veins, restless leg syndrome, BPH surgery, Alvarenga's esophagus and chronic low back pain from osteoarthritis, including lumbar surgery by Dr. Yu in June 2020 for. Alcohol cirrhosis. . cardioversion done for atrial fibrillation in March 2022. In October 2024 diagnosed with left foot second toe distal phalangeal acute osteomyelitis. Had infected callus removed by Dr. Galeas. Cultures were positive for multiple organism. Including MRSA. Was discharged on IV vancomycin. Now presented with increasing pain in the left foot great toe. Blister also ruptured. Getting IV vancomycin, IV ceftriaxone. Pain is not bad. Sublumbar pain. Eating fair. Being followed by vascular and ID. Active Medications Apixaban (Apixaban 5 Mg Tab) 5 mg PO BID [facility]; Protocol Last Admin: 02/13/25 09:39 Dose: 5 mg Atorvastatin Calcium (Atorvastatin 40 Mg Tab) 40 mg PO DAILY [facility] Last Admin: 02/13/25 09:39 Dose: 40 mg Fluticasone Propionate (Fluticasone Nasal 50mcg/[place] 16gm Btl) 2 spray EA NOSTRIL BID PRN PRN Reason: Allergy Symptoms Hydromorphone HCl (Hydromorphone 1 Mg/Ml 1 Ml Syringe) 1 mg IVP Q3HR PRN PRN Reason: Severe Pain (Scale 7 to 10) Last Admin: 02/13/25 11:53 Dose: 1 mg Sodium Chloride (Saline 0.9%) 1,000 mls @ 20 mls/hr IV .Q24H [facility] Last Admin: 02/12/25 17:11 Dose: 20 mls/hr Ceftriaxone Sodium 2 gm/ (Sodium Chloride) 50 mls @ 100 mls/hr IVPB Q24H [facility]; Protocol Last Admin: 02/12/25 17:11 Dose: 100 mls/hr Vancomycin HCl 1,750 mg/ (Sodium Chloride) 500 mls @ 167 mls/hr IVPB Q16H [facility] Last Admin: 02/13/25 09:40 Dose: 167 mls/hr Insulin Human Lispro (Insulin Lispro (Humalog) 100 Unit/Ml 10 Ml Vl) 0 unit SQ ACHS [facility]; Protocol Last Admin: 02/13/25 11:57 Dose: Not Given Metoprolol Tartrate (Metoprolol Tartrate 50 Mg Tab) 50 mg PO BID [facility] Last Admin: 02/13/25 09:39 Dose: 50 mg Montelukast Sodium (Montelukast 10 Mg Tab) 10 mg PO DAILY [facility] Last Admin: 02/13/25 09:39 Dose: 10 mg Naloxone HCl (Naloxone 0.4 Mg/Ml 1 Ml Vial) 0.2 mg IV Q2M PRN PRN Reason: Opioid Reversal Patient's Own ( Cariprazine Hcl [ Vraylar] 3 Mg Capsule) 3 mg PO DAILY [facility] Last Admin: 02/13/25 11:48 Dose: Not Given Ondansetron HCl (Ondansetron 4 Mg/2 Ml Vial) 4 mg IVP Q8HR PRN PRN Reason: Nausea And Vomiting Spironolactone (Spironolactone 25 Mg Tab) 12.5 mg PO DAILY [facility] Last Admin: 02/13/25 09:39 Dose: 12.5 mg Past medical history to include: COPD, fibromyalgia, hypertension, osteoarthritis, chronic pancreatitis from alcoholism, peripheral neuropathy, varicose pains, restless leg syndrome, BPH with surgery, Alvarenga's esophagus, chronic low back pain from osteoarthritis with lumbar surgery from Dr. Yu June 2024, alcohol use disorder with cirrhosis, atrial fibrillation with ablation-went back into atrial fibrillation Social history: lives with his sister Ewelina. Smoked for close to 42 years. Smoking quarter pack a cigarettes a week.. Drinking alcohol for years. Stopped February 2022 Physical examination: VITAL SIGNS: 98.8, 60, 16, 151 x 74, 100% room GENERAL: Reclining bed, comfortable EYES: Pupils equal. Conjunctiva normal. HEENT: External appearance of nose and ears normal, oral cavity grossly normal. NECK: JVD raised; masses not palpable. HEART: Heart sounds irregular; edema. LUNGS: Respiratory rate normal; decreased breath sounds, mild wheezing ABDOMEN: Soft, , nontender, liver spleen not palpable, no masses palpable. divarification of recti . PSYCH: Alert and oriented x3; mood and affect slightly anxious MUSCULOSKELETAL:No Clubbing/cyanosis;muscles-grossly intact. evidence of OA. Dressing over the incision site Extremities: Left foot in a dressing INVESTIGATIONS, reviewed in the clinical context: Foot MRI [February 13] hallux valgus deformity with mild to moderate first MTP joint OA. No evidence of osteomyelitis. Abnormal signal involving the shaft and tuft of the second distal phalanx. Acute osteomyelitis less likely. Multiple chr onic bone infarcts are present at the ankle and the hindfoot. February 12, 2025: White count 7.0 hemoglobin 13.2 platelets 129 potassium 3.8 creatinine 0.76 Wound culture left big toe [February 12] presumptive MRSA Assessment and plan: - Left foot big toe wound with cellulitis, acute infection with presumptive MRSA IV vancomycin, IV ceftriaxone -Lumbar surgery, by Dr. Gabriel Yu June 25, 2024. With chronic lower back pain -COPD in a current smoker. Trelegy, add DuoNeb 4 times daily -Chronic nicotine dependence, cigarette smoker. Currently smoking 1 pack about a week Nicotine patch 7 -Paroxysmal atrial flutter fibrillation a prior history of ablation cardioversion after that.: Eliquis, Lopressor 50 p.o. twice daily -chronic congestive heart failure that from systolic and diastolic dysfunction EF 40 % Aldactone. Lasix. - chronic pancreatitis from alcoholism: -Alcohol-induced cirrhosis: Aldactone. -Chronic fibromyalgia Flexeril 10 mg 3 times a day -Diabetes mellitus type 2 on oral hypoglycemic Jardiance Follow Accu-Cheks with sliding scale -Chronic gait dysfunction, does use a walker at baseline -Essential hypertension, Lopressor 50 mg twice daily -Primary osteoarthritis, multiple joints bilaterally Pain medications as needed -Alcoholic peripheral neuropathy -restless leg syndrome Requip 4 mg daily at bedtime -Alvarenga's esophagus Protonix 40 mg a day -Full code. Discussed. Continue current medication treatment plan. Past Medical History Past Medical History: Atrial Fibrillation, Coronary Artery Disease (CAD), Heart Failure, COPD, Diabetes Mellitus, Eye Disorder, Fibromyalgia, Hypertension, Myocardial Infarction ([place]), Musculoskeletal Disorder, Osteoarthritis (OA), Prostate Disorder, Vascular Disorder Additional Past Medical History / Comment(s): Chronic cough, hx pancreatitis, bilateral glaucoma, neuropathy bilateral feet, poor circulation to legs, varicose veins, RLS, hx BPH, colitis, gastritis, Alvarenga's esophagus, hx Shingles in 2012 with joint pain since, chronic low back pain, DDD. wound to right leg, scabies 06/2023 Last Myocardial Infarction Date:: 09/02/16 History of Any Multi-Drug Resistant Organisms: None Reported Past Surgical History: Appendectomy, Cardiac Ablation, Heart Catheterization, Joint Replacement, Orthopedic Surgery, Prostate Surgery Additional Past Surgical History / Comment(s): Right knee arthroscopy, right knee replacement, EGD, colonoscopy, TURP, cardioversion. Past Anesthesia/Blood Transfusion Reactions: No Reported Reaction Additional Past Anesthesia/Blood Transfusion Reaction / Comment(s): No hx blood transfusion. Past Psychological History: Anxiety, Depression Smoking Status: Former smoker
--- NOTE | 2025-02-13 16:13 | P.PN ---
Subjective Progress Note Date: 02/13/25 Principal diagnosis: Reason for follow-up is left big toe diabetic foot infection Patient is a 64-year-old male with a past medical history significant for Atrial Fibrillation, Coronary Artery Disease (CAD), Heart Failure, COPD, Diabetes Mellitus, Eye Disorder, Fibromyalgia, Hypertension, Myocardial Infarction ([place]), Musculoskeletal Disorder, Osteoarthritis (OA), Prostate Disorder, Vascular Disorder recent history of left second toe diabetic foot infection with osteomyelitis with MRSA presented to hospital with a left big toe medial side blister swelling and redness concerning for infection. On today's evaluation that is 02/13/2025,the patient remains to be afebrile, patient is on room air not requiring supplemental oxygen and denies any shortness of breath no chest pain or cough.Patient denies having any nausea or vomiting, no abdominal pain and no diarrhea, pain to the left foot has decreased in intensity. The patient did have a creatinine 0.76 culture with presumptive MRSA Objective - Vital Signs Vital signs: Vital Signs Temp 98.8 F 02/13/25 09:04 Pulse 60 02/13/25 09:04 Resp 18 02/12/25 13:33 BP 151/74 02/13/25 09:04 Pulse Ox 100 02/13/25 09:04 FiO2 Intake & Output 02/12/25 02/13/25 02/13/25 18:59 06:59 18:59 Intake Total 750 Balance 750 Intake: Oral 750 Other: Voiding Method Urinal Urinal # Voids 2 3 - Exam GENERAL DESCRIPTION: Middle-age male lying in bed in no distress RESPIRATORY SYSTEM: Unlabored breathing , decreased breath sounds at bases HEART: S1 S2 regular rate and rhythm , ABDOMEN: Soft , no tenderness EXTREMITIES: Left big toe medial side wound - Labs CBC & Chem 7: 02/12/25 07:11 02/13/25 08:24 Labs: Microbiology - Last 24 Hours (Table) 02/12/25 15:30 Wound Culture - Preliminary Toe - Left First Presumptive MRSA 02/10/25 15:20 Blood Culture - Preliminary Blood Assessment and Plan (1) Diabetic infection of left foot Current Visit: Yes Status: Acute Code(s): E11.628 - TYPE 2 DIABETES MELLITUS WITH OTHER SKIN COMPLICATIONS; L08.9 - LOCAL INFECTION OF THE SKIN AND SUBCUTANEOUS TISSUE, UNSP SNOMED Code(s): 167480730 (2) Blister of great toe, left, infected Current Visit: Yes Status: Acute Code(s): S90.422A - BLISTER (NONTHERMAL), LEFT GREAT TOE, INITIAL ENCOUNTER; L08.9 - LOCAL INFECTION OF THE SKIN AND SUBCUTANEOUS TISSUE, UNSP SNOMED Code(s): 37597651019421549 (3) Leukocytosis Current Visit: No Status: Acute Code(s): D72.829 - ELEVATED WHITE BLOOD CELL COUNT, UNSPECIFIED SNOMED Code(s): 928307301 (4) Penicillin allergy Current Visit: No Status: Acute Code(s): Z88.0 - ALLERGY STATUS TO PENICILLIN SNOMED Code(s): 23487857 Plan: 1patient presented to hospital with left big toe blister also with some purulent drainage concern for left big toe diabetic foot infection in this patient who did have a bunion deformity did have abnormal x-ray with a question of possible osteomyelitis. 2patient is status post vascular surgery evaluation for possible debridement and deep culture which is currently growing presumptive MRSA 3patient is afebrile white count is normalized 4we will treat with vancomycin pharmacy to dose while waiting for the culture to finalize discontinue Rocephin Dictation was produced using [employer] dictation software. please excuse any grammatical, word or spelling errors.
[2025-02-13] MEDS: DAPAGLIFLOZIN PROPANEDIOL 5 MG TABLET PO SCH (16:27)
[2025-02-13] MEDS: TAMSULOSIN 0.4 MG CAP.ER.24H PO SCH (16:34)
[2025-02-13] MEDS: TIOTROPIUM 2.5 MCG INHALER INHALATION SCH (17:42)
[2025-02-13] MEDS: TRINTELLIX 5 MG PO SCH (17:42)
[2025-02-13 17:57] LABS: Glucose,Whole Blood 103 mg/dL (70-110)
[2025-02-13] MEDS: rOPINIRole HCL 4 MG TABLET PO SCH (18:32)
[2025-02-13] MEDS: SYMBICORT 160-4.5 MCG INHALER INHALATION SCH (18:47)
[2025-02-13 20:28] LABS: Glucose,Whole Blood 124 mg/dL (70-110)
[2025-02-13] MEDS: PANTOPRAZOLE 40 MG TABLET PO SCH (20:44)
[2025-02-13] MEDS: FOLIC ACID 1 MG TAB PO SCH (20:44)
[2025-02-13] MEDS: LATANOPROST 0.005% OPHTH DROPS 2.5 ML BTL BOTH EYES SCH (20:45)
[2025-02-14 07:32] LABS: African American GFR (CKD) >90 (>60 ml/min/1.73 sqM); Non-African American GFR(CKD) >90 (>60 ml/min/1.73 sqM)
[2025-02-14] MEDS: FERROUS SULFATE 325 MG TAB PO SCH (07:43)
[2025-02-14 07:51] LABS: Glucose,Whole Blood 100 mg/dL (70-110)
[2025-02-14 08:16] VITALS: RESP 17
[2025-02-14 12:18] LABS: Glucose,Whole Blood 105 mg/dL (70-110)
[2025-02-14 12:57] VITALS: BP 137/64; PULSE 58; TEMP 97.8
--- NOTE | 2025-02-14 15:46 | P.PN ---
Subjective Progress Note Date: 02/14/25 Principal diagnosis: Reason for follow-up is left big toe diabetic foot infection Patient is a 64-year-old male with a past medical history significant for Atrial Fibrillation, Coronary Artery Disease (CAD), Heart Failure, COPD, Diabetes Mellitus, Eye Disorder, Fibromyalgia, Hypertension, Myocardial Infarction ([place]), Musculoskeletal Disorder, Osteoarthritis (OA), Prostate Disorder, Vascular Disorder recent history of left second toe diabetic foot infection with osteomyelitis with MRSA presented to hospital with a left big toe medial side blister swelling and redness concerning for infection. On today's evaluation that is 02/14/2025, the patient continues to be afebrile, the patient is on room air and breathing comfortably, the Pt denies having any chest pain or cough, the patient denies having any abdominal pain no vomiting or any diarrhea denies pain to the left foot wound area. Patient did have creatinine 0.71 culture with MRSA MRI was negative for osteo myelitis Objective - Vital Signs Vital signs: Vital Signs Temp 97.7 F 02/14/25 07:00 Pulse 53 L 02/14/25 07:00 Resp 17 02/14/25 07:00 BP 173/79 02/14/25 07:00 Pulse Ox 98 02/14/25 07:00 FiO2 Intake & Output 02/13/25 02/14/25 02/14/25 18:59 06:59 18:59 Intake Total 240 Output Total 675 Balance -675 240 Intake: Oral 240 Output: Urine 675 Other: Voiding Method Urinal # Voids 1 - Exam GENERAL DESCRIPTION: Middle-age male lying in bed in no distress RESPIRATORY SYSTEM: Unlabored breathing , decreased breath sounds at bases HEART: S1 S2 regular rate and rhythm , ABDOMEN: Soft , no tenderness EXTREMITIES: Left big toe medial side wound - Labs CBC & Chem 7: 02/12/25 07:11 02/14/25 06:54 Labs: Abnormal Lab Results - Last 24 Hours (Table) 02/13/25 Range/Units 20:26 POC Glucose (mg/dL) 124 H (70-110) mg/dL Microbiology - Last 24 Hours (Table) 02/12/25 15:30 Gram Stain - Final Toe - Left First Wound Culture - Final Methicillin resist S. aureus 02/10/25 15:20 Blood Culture - Preliminary Blood Assessment and Plan (1) Diabetic infection of left foot Current Visit: Yes Status: Acute Code(s): E11.628 - TYPE 2 DIABETES MELLITUS WITH OTHER SKIN COMPLICATIONS; L08.9 - LOCAL INFECTION OF THE SKIN AND SUBCUTANEOUS TISSUE, UNSP SNOMED Code(s): 976426950 (2) Blister of great toe, left, infected Current Visit: Yes Status: Acute Code(s): S90.422A - BLISTER (NONTHERMAL), LEFT GREAT TOE, INITIAL ENCOUNTER; L08.9 - LOCAL INFECTION OF THE SKIN AND S UBCUTANEOUS TISSUE, UNSP SNOMED Code(s): 95345869202446071 (3) Leukocytosis Current Visit: No Status: Acute Code(s): D72.829 - ELEVATED WHITE BLOOD CELL COUNT, UNSPECIFIED SNOMED Code(s): 852368829 (4) Penicillin allergy Current Visit: No Status: Acute Code(s): Z88.0 - ALLERGY STATUS TO PENICILLIN SNOMED Code(s): 41307076 Plan: 1patient presented to hospital with left big toe blister also with some purulent drainage concern for left big toe diabetic foot infection in this patient who did have a bunion deformity did have abnormal x-ray with a question of possible osteomyelitis. 2patient is status post vascular surgery evaluation for possible debridement and deep culture which is currently growing presumptive MRSA 3patient is afebrile white count is normalized, patient did have MRI of the left foot did not show any osteomyelitis at the first toe 4patient has received adequate IV vancomycin will be able to finish therapy with oral Zyvox x 10 days on discharge discussed with admitting physician Dictation was produced using [employer] dictation software. please excuse any grammatical, word or spelling errors.
--- NOTE | 2025-02-14 20:11 | P.DS ---
Providers Date of admission: 02/10/25 18:52 Expected date of discharge: 02/14/25 Attending physician: Jamal Tamayo Consults: 02/10/25 18:49 Consult Physician Routine Consulting Provider: Rk Galeas Consult Reason/Comments: known Do you want consulting provider notified?: Yes 02/11/25 14:23 Consult Physician Routine Consulting Provider: Pily Garland Consult Reason/Comments: Osteomyelitis left foot Do you want consulting provider notified?: Yes Primary care physician: [facility] Course: History of present illness; 64-year-old male with a past medical history of PAD, A-fib (on Eliquis 5 mg twice daily), CAD, diastolic heart failure, COPD, diabetes mellitus, hypertension, and history of [place] presents with complaints of left great toe pain. Of note patient has relatively recent history of osteomyelitis in left second toe. States yesterday started realized that his left great toe was quite painful, also noticed a blister on it that then ruptured. States at that time he decided come to the ER for further evaluation. On arrival to the ER he got lab work significant for slightly elevated white blood cell count and CRP of 5.2 but otherwise within normal limits. Patient also received a x-ray of the left foot which showed soft tissue swelling of the first digit with lucency of the first metatarsal head. At that point patient was admitted for further workup of left great toe wound. February 13 Pleasant [address] Chavez. Chronic stable medical conditions include COPD, fibromyalgia, hypertension, osteoarthritis, chronic pancreatitis from alcoholism, peripheral neuropathy varicose veins, restless leg syndrome, BPH surgery, Alvarenga's esophagus and chronic low back pain from osteoarthritis, including lumbar surgery by Dr. Yu in June 2020 for. Alcohol cirrhosis. . cardioversion done for atrial fibrillation in March 2022. In October 2024 diagnosed with left foot second toe distal phalangeal acute osteomyelitis. Had infected callus removed by Dr. Galeas. Cultures were positive for multiple organism. Including MRSA. Was discharged on IV vancomycin. Now presented with increasing pain in the left foot great toe. Blister also ruptured. Getting IV vancomycin, IV ceftriaxone. Pain is not bad. Sublumbar pain. Eating fair. Being followed by vascular and ID. February 14: Patient doing well. Pain controlled. Discussed with ID. Patient to be discharged on 10 days of Zyvox. He will follow-up with ID and also Dr. Galeas from vascular. Wound orders per Dr. Galeas. Past medical history to include: COPD, fibromyalgia, hypertension, osteoarthritis, chronic pancreatitis from alcoholism, peripheral neuropathy, varicose pains, restless leg syndrome, BPH with surgery, Alvarenga's esophagus, chronic low back pain from osteoarthritis with lumbar surgery from Dr. Yu June 2024, alcohol use disorder with cirrhosis, atrial fibrillation with ablation-went back into atrial fibrillation Social history: lives with his sister Ewelina. Smoked for close to 42 years. Smoking quarter pack a cigarettes a week.. Drinking alcohol for years. Stopped February 2022 Physical examination: VITAL SIGNS: 97.8, 58, 17, 137 x 64, 97% room air GENERAL: Reclining bed, comfortable EYES: Pupils equal. Conjunctiva normal. HEENT: External appearance of nose and ears normal, oral cavity grossly normal. NECK: JVD raised; masses not palpable. HEART: Heart sounds irregular; edema. LUNGS: Respiratory rate normal; decreased breath sounds, mild wheezing ABDOMEN: Soft, , nontender, liver spleen not palpable, no masses palpable. divarification of recti . PSYCH: Alert and oriented x3; mood and affect slightly anxious MUSCULOSKELETAL:No Clubbing/cyanosis;muscles-grossly intact. evidence of OA. Dressing over the incision site Extremities: Left foot in a dressing INVESTIGATIONS, reviewed in the clinical context: Foot MRI [February 13] hallux valgus deformity with mild to moderate first MTP joint OA. No evidence of osteomyelitis. Abnormal signal involving the shaft and tuft of the second distal phalanx. Acute osteomyelitis less likely. Multiple chronic bone infarcts are present at the ankle and the hindfoot. February 12, 2025: White count 7.0 hemoglobin 13.2 platelets 129 potassium 3.8 creatinine 0.76 Wound culture left big toe [February 12] presumptive MRSA Assessment and plan: - Left foot big toe wound with cellulitis, acute infection-MRSA MRI negative for osteomyelitis IV vancomycin, IV ceftriaxone Discharge on Zyvox 6 mg twice daily for 10 days per ID -Lumbar surgery, by Dr. Gabriel Yu June 25, 2024. With chronic lower back pain -COPD in a current smoker. Trelegy, add DuoNeb 4 times daily -Chronic nicotine dependence, cigarette smoker. Currently smoking 1 pack about a week Nicotine patch 7 -Paroxysmal atrial flutter fibrillation a prior history of ablation cardioversion after that.: Eliquis, Lopressor 50 p.o. twice daily -chronic congestive heart failure that from systolic and diastolic dysfunction EF 40 % Aldactone. Lasix. - chronic pancreatitis from alcoholism: -Alcohol-induced cirrhosis: Aldactone. -Chronic fibromyalgia Flexeril 10 mg 3 times a day -Diabetes mellitus type 2 on oral hypoglycemic Jardiance Follow Accu-Cheks with sliding scale -Chronic gait dysfunction, does use a walker at baseline -Essential hypertension, Lopressor 50 mg twice daily -Primary osteoarthritis, multiple joints bilaterally Pain medications as needed -Alcoholic peripheral neuropathy -restless leg syndrome Requip 4 mg daily at bedtime -Alvarenga's esophagus Protonix 40 mg a day -Full code. Disposition: Home Past Medical History Past Medical History: Atrial Fibrillation, Coronary Artery Disease (CAD), Heart Failure, COPD, Diabetes Mellitus, Eye Disorder, Fibromyalgia, Hypertension, Myocardial Infarction ([place]), Musculoskeletal Disorder, Osteoarthritis (OA), Prostate Disorder, Vascular Disorder Additional Past Medical History / Comment(s): Chronic cough, hx pancreatitis, bilateral glaucoma, neuropathy bilateral feet, poor circulation to legs, varicose veins, RLS, hx BPH, colitis, gastritis, Alvarenga's esophagus, hx Shingles in 2012 with joint pain since, chronic low back pain, DDD. wound to right leg, scabies 06/2023 Last Myocardial Infarction Date:: 09/02/16 History of Any Multi-Drug Resistant Organisms: None Reported Past Surgical History: Appendectomy, Cardiac Ablation, Heart Catheterization, Joint Replacement, Orthopedic Surgery, Prostate Surgery Additional Past Surgical History / Comment(s): Right knee arthroscopy, right knee replacement, EGD, colonoscopy, TURP, cardioversion. Past Anesthesia/Blood Transfusion Reactions: No Reported Reaction Additional Past Anesthesia/Blood Transfusion Reaction / Comment(s): No hx blood transfusion. Past Psychological History: Anxiety, Depression Smoking Status: Former smoker Plan - Discharge Summary Discharge Rx Participant: No New Discharge Prescriptions: New Linezolid [Zyvox] 600 mg PO Q12H #20 tab Continue Montelukast [Singulair] 10 mg PO DAILY Tamsulosin [Flomax] 0.4 mg PO DAILY Empagliflozin [Jardiance] 10 mg PO DAILY Omeprazole [PriLOSEC] 20 mg PO BID Folic Acid 1 mg PO BID Metoprolol Tartrate [Lopressor] 50 mg PO BID Loratadine [Claritin] 10 mg PO DAILY Fluticasone Nasal [place] [Flonase Nasal [place]] 2 spr EA NOSTRIL BID PRN PRN Reason: Allergy Symptoms Cariprazine HCl [Vraylar] 3 mg PO DAILY Ferrous Sulfate [Iron (65 MG Elemental)] 325 mg PO DAILY rOPINIRole HCL [Requip] 4 mg PO DAILY Apixaban [Eliquis] 5 mg PO BID Latanoprost [Latanoprost 0.005%] 1 drop BOTH EYES HS Atorvastatin [Lipitor] 40 mg PO DAILY Fluticasone/Umeclidin/Vilanter [Trelegy Ellipta 100-62.5-25] 1 puff INHALATION RT-DAILY Spironolactone [Aldactone] 12.5 mg PO DAILY Furosemide [Lasix] 20 mg PO BID Potassium Chloride [Klor-Con 8] 8 meq PO DAILY allopurinoL [Zyloprim] 300 mg PO DAILY Cyclobenzaprine HCl 10 mg PO TID PRN PRN Reason: Muscle Spasm Ergocalciferol [Vitamin D2 (1250 Mcg = 88047 Iu)] 1,250 mcg PO JULIO hydrOXYzine pamoate [Vistaril] 25 mg PO TID PRN PRN Reason: Anxiety Vortioxetine Hydrobromide [Trintellix] 5 mg PO DAILY Discharge Medication List Montelukast [Singulair] 10 mg PO DAILY 01/12/18 [History] Tamsulosin [Flomax] 0.4 mg PO DAILY 11/08/21 [History] rOPINIRole HCL [Requip] 4 mg PO DAILY 11/08/21 [History] Empagliflozin [Jardiance] 10 mg PO DAILY 04/11/22 [History] Apixaban [Eliquis] 5 mg PO BID 05/13/22 [History] Omeprazole [PriLOSEC] 20 mg PO BID 06/27/23 [History] Latanoprost [Latanoprost 0.005%] 1 drop BOTH EYES HS 07/27/23 [History] Folic Acid 1 mg PO BID 11/23/23 [History] Loratadine [Claritin] 10 mg PO DAILY 11/23/23 [History] Metoprolol Tartrate [Lopressor] 50 mg PO BID 11/23/23 [History] Atorvastatin [Lipitor] 40 mg PO DAILY 01/20/24 [History] Fluticasone/Umeclidin/Vilanter [Trelegy Ellipta 100-62.5-25] 1 puff INHALATION RT-DAILY 06/19/24 [History] Furosemide [Lasix] 20 mg PO BID 11/11/24 [History] Potassium Chloride [Klor-Con 8] 8 meq PO DAILY 11/11/24 [History] Spironolactone [Aldactone] 12.5 mg PO DAILY 11/11/24 [History] Cyclobenzaprine HCl 10 mg PO TID PRN 01/01/25 [History] allopurinoL [Zyloprim] 300 mg PO DAILY 01/01/25 [History] Cariprazine HCl [Vraylar] 3 mg PO DAILY 02/10/25 [History] Ergocalciferol [Vitamin D2 (1250 Mcg = 38484 Iu)] 1,250 mcg PO JULIO 02/10/25 [History] Ferrous Sulfate [Iron (65 MG Elemental)] 325 mg PO DAILY 02/10/25 [History] Fluticasone Nasal [place] [Flonase Nasal [place]] 2 spr EA NOSTRIL BID PRN 02/10/25 [History] Vortioxetine Hydrobromide [Trintellix] 5 mg PO DAILY 02/10/25 [History] hydrOXYzine pamoate [Vistaril] 25 mg PO TID PRN 02/10/25 [History] Linezolid [Zyvox] 600 mg PO Q12H #20 tab 02/14/25 [Rx] Follow up Appointment(s)/Referral(s): Albert Chavez MD [Primary Care Provider] - 1-2 days (Medical Doctor Patient instructed to make follow-up appointment with Dr. Chavez next week) Rk Galeas MD [STAFF PHYSICIAN] - 1 Week (Vascular Surgeon Patient instructed to make appointment with Dr. Galeas next week) Pily Garland MD [STAFF PHYSICIAN] - 1 Week (Infectious Disease Doctor Patient instructed to make appointment with Dr. Garland next week) Patient Instructions/Handouts: Linezolid (By mouth), MRSA (Methicillin- Resistant Staphylococcus Aureus) (DC) Activity/Diet/Wound Care/Special Instructions: follow-up Dr. Galeas at wound center - get wound orders from him oral antibiotics to start tomorrow Discharge Disposition: HOME SELF-CARE
[2025-02-15] MEDS ORDERED: VANCOMYCIN TROUGH DUE 1 EACH MISC MISCELLANE ONE (09:00)
[2025-02-16] MEDS ORDERED: ERGOCALCIFEROL 1,250 MCG (50,000 IU) CAPSULE PO SCH (09:00)
== END 2025-02-14 17:15 | disposition home or self-care (01) | DRG 420 ==
LOC: EC 13:59 → 1SOBS 18:52 → 5NMEDONC 02-13 16:53
PROVIDERS: ADMIT Hospitalist; ATTEND Hospitalist
DX: E11.628 Type 2 diabetes mellitus with other skin complications (principal); B95.62 Methicillin resistant Staphylococcus aureus infection as the cause of diseases classified elsewhere; E78.5 Hyperlipidemia, unspecified; F17.210 Nicotine dependence, cigarettes, uncomplicated; F10.21 Alcohol dependence, in remission; F32.A Depression, unspecified; F41.9 Anxiety disorder, unspecified; G25.81 Restless legs syndrome; G62.1 Alcoholic polyneuropathy; G89.29 Other chronic pain; I11.0 Hypertensive heart disease with heart failure; I25.10 Atherosclerotic heart disease of native coronary artery without angina pectoris; I25.2 Old myocardial infarction; R26.9 Unspecified abnormalities of gait and mobility; E11.621 Type 2 diabetes mellitus with foot ulcer; I77.1 Stricture of artery; I48.0 Paroxysmal atrial fibrillation; I50.42 Chronic combined systolic (congestive) and diastolic (congestive) heart failure; J44.9 Chronic obstructive pulmonary disease, unspecified; K22.70 Barrett's esophagus without dysplasia; I48.92 Unspecified atrial flutter; K70.30 Alcoholic cirrhosis of liver without ascites; K86.0 Alcohol-induced chronic pancreatitis; L02.612 Cutaneous abscess of left foot; L03.032 Cellulitis of left toe; Z79.84 Long term (current) use of oral hypoglycemic drugs; M15.9 Polyosteoarthritis, unspecified; M79.7 Fibromyalgia; N40.0 Benign prostatic hyperplasia without lower urinary tract symptoms; S90.422A Blister (nonthermal), left great toe, initial encounter; H40.9 Unspecified glaucoma; I83.90 Asymptomatic varicose veins of unspecified lower extremity; M20.40 Other hammer toe(s) (acquired), unspecified foot; M47.9 Spondylosis, unspecified; M54.50 Low back pain, unspecified; Z96.651 Presence of right artificial knee joint; Z79.01 Long term (current) use of anticoagulants; Z88.0 Allergy status to penicillin; Z79.899 Other long term (current) drug therapy; Z86.19 Personal history of other infectious and parasitic diseases; Z90.79 Acquired absence of other genital organ(s)
CPT/HCPCS: 36415; 80048; 80053; 80202; 82565; 83605; 83735; 84100; 85025; 86140; 87040; 87070; 87075; 87077; 87186; 87205; 94640; 96365; 96368; 99285